=== PATIENT | male | born 1975 | race Caucasian/White ===

== ENCOUNTER 2016-07-09 04:54 | Inpatient (IN) | payer OTHER ==
[2016-07-09] MEDS ORDERED: LORazepam 2 MG/ML SYRINGE IV STA ×2 (04:56→06:23)
[2016-07-09] MEDS ORDERED: THIAMINE 100 MG/ML 2 ML VIAL IVPB STA (04:56)
[2016-07-09] MEDS ORDERED: SODIUM CHLORIDE 0.9% 500 ML IV STA (04:56)
[2016-07-09] MEDS ORDERED: SODIUM CHLORIDE 0.9% 1,000 ML IV STA (04:56)
--- NOTE | 2016-07-09 04:57 | ED ---
General Adult HPI - General Stated complaint: ETOH Time Seen by Provider: 07/09/16 04:56 Source: RN notes reviewed, old records reviewed - History of Present Illness Initial comments: This is a 41-year-old male ER for evaluation of intoxication, patient got drunk and passed out when sleep as left-sided, when he woke thought he had typical to moving his left side although his range of motion is fully returned at this point. Patient does have history of alcohol abuse. - Related Data Home Medications Medication Instructions Recorded Confirmed Multivitamins, Thera [Multivitamin] 1 tab PO DAILY 10/30/15 07/09/16 Magnesium Oxide [Mag-Ox] 250 mg PO DAILY 05/28/16 07/09/16 Vitamin B Complex 1 cap PO DAILY 05/28/16 07/09/16 Atenolol [Tenormin] 50 mg PO DAILY 06/01/16 07/09/16 Fluticasone Propionate [Flonase 2 spray EA NOSTRIL DAILY PRN 06/01/16 07/09/16 Allergy Relief] HYDROcodone/APAP 10-325MG [[place] 1 tab PO Q6H PRN 06/01/16 07/09/16 10-325] Albuterol Inhaler [Ventolin Hfa 2 puff INHALATION RT-Q8H PRN 07/09/16 07/09/16 Inhaler] Previous Rx's Medication Instructions Recorded Folic Acid 1 mg PO DAILY #30 tablet 06/05/16 Thiamine [Vitamin B-1] 100 mg PO BID@1200,1700 #60 tab 06/05/16 LORazepam [Ativan] 1 mg PO TID #20 tab 07/10/16 Omeprazole [PriLOSEC] 40 mg PO AC-BRKFST #14 capsule. 07/10/16 Allergies Allergy/AdvReac Type Severity Reaction Status Date / Time Cephalosporins Allergy Severe Anaphylaxis Verified 06/01/16 15:26 diphenhydramine HCl Allergy Severe Anaphylaxis Verified 06/01/16 15:26 [From Benadryl] divalproex sodium Allergy Severe Anaphylaxis Verified 06/01/16 15:26 [From Depakote] Review of Systems ROS Statement: Those systems with pertinent positive or pertinent negative responses have been documented in the HPI. ROS Other: All systems not noted in ROS Statement are negative. Past Medical History Past Medical History: GERD/Reflux, Hypertension, Osteoarthritis (OA), Seizure Disorder Additional Past Medical History / Comment(s): had episode of "fainting" 1 yrs ago and told he had a seizurepossible alcoholic seizures/blackouts, bilateral varicose veins, spinal stenosis, herniated disc, hemorrhoids. Patient states he drinks 1/5 of vodka per day History of Any Multi-Drug Resistant Organisms: None Reported Past Surgical History: Appendectomy, Tonsillectomy Additional Past Surgical History / Comment(s): 09-20-15 LAMINECTOMY,bilateral DISCETOMY L5-S1. Past Anesthesia/Blood Transfusion Reactions: Motion Sickness Past Psychological History: Anxiety, Depression Additional Psychological History / Comment(s): pt stated has some mild depression .his mother recently on 08-17-15. pt denies any thoughts of harming self. Smoking Status: Never smoker Past Alcohol Use History: Heavy Additional Past Alcohol Use History / Comment(s): Patient is a lifelong nonsmoker. He denies any medical marijuana, marijuana or street drug use. 1 fifth of vodka per day, last drink 05/31/2016. 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 Mother recently. He denies any travel. He is currently living with his father. Past Drug Use History: None Reported - Past Family History Father Family Medical History: Cancer, Dementia Additional Family Medical History / Comment(s): melanoma, parkinsons Mother Family Medical History: Hypertension, Musculoskeletal Disorder, Neurologic Disorder, Osteoarthritis (OA) Additional Family Medical History / Comment(s): Recently . Had some motor neuron disease General Exam General appearance: alert, in no apparent distress Head exam: Present: atraumatic, normocephalic, normal inspection Eye exam: Present: normal appearance, PERRL, EOMI. Absent: scleral icterus, conjunctival injection, periorbital swelling ENT exam: Present: normal exam, mucous membranes moist Neck exam: Present: normal inspection. Absent: tenderness, meningismus, lymphadenopathy Respiratory exam: Present: normal lung sounds bilaterally. Absent: respiratory distress, wheezes, rales, rhonchi, stridor Cardiovascular Exam: Present: regular rate, normal rhythm, normal heart sounds. Absent: systolic murmur, diastolic murmur, rubs, gallop, clicks GI/Abdominal exam: Present: soft, normal bowel sounds. Absent: distended, tenderness, guarding, rebound, rigid Extremities exam: Present: normal inspection, full ROM, normal capillary refill. Absent: tenderness, pedal edema, joint swelling, calf tenderness Back exam: Present: normal inspection Neurological exam: Present: alert, oriented X3, CN II-XII intact Psychiatric exam: Present: normal affect, normal mood Skin exam: Present: warm, dry, intact, normal color. Absent: rash Course Vital Signs 07/09/16 07/09/16 07/09/16 04:59 06:36 07:22 Temperature 98.2 F Pulse Rate 82 84 78 Respiratory 14 14 15 Rate Blood Pressure 134/79 128/73 119/62 O2 Sat by Pulse 97 98 96 Oximetry 07/09/16 07/09/16 08:00 08:13 Temperature Pulse Rate 85 Respiratory 16 16 Rate Blood Pressure 141/70 O2 Sat by Pulse 97 Oximetry Medical Decision Making - Medical Decision Making 38 female seen and evaluated by psychiatry, patient was medically clear for psych after detox, patient can be admitted for psychiatric evaluation and treatment - Lab Data Result diagrams: 07/10/16 08:43 07/10/16 08:43 Lab Results 07/09/16 07/09/16 Range/Units 05:30 05:30 WBC 6.0 (3.8-10.6) k/uL RBC 4.01 L (4.30-5.90) m/uL Hgb 12.6 L (13.0-17.5) gm/dL Hct 37.4 L (39.0-53.0) % MCV 93.3 (80.0-100.0) fL MCH 31.5 (25.0-35.0) pg MCHC 33.7 (31.0-37.0) g/dL RDW 14.1 (11.5-15.5) % Plt Count 124 L (150-450) k/uL Neutrophils % 50 % Lymphocytes % 38 % Monocytes % 6 % Eosinophils % 3 % Basophils % 1 % Neutrophils # 3.0 (1.3-7.7) k/uL Lymphocytes # 2.3 (1.0-4.8) k/uL Monocytes # 0.4 (0-1.0) k/uL Eosinophils # 0.2 (0-0.7) k/uL Basophils # 0.0 (0-0.2) k/uL Sodium 139 (137-145) mmol/L Potassium 4.0 (3.5-5.1) mmol/L Chloride 99 (98-107) mmol/L Carbon Dioxide 19 L (22-30) mmol/L Anion Gap 21 mmol/L BUN 13 (9-20) mg/dL Creatinine 1.00 (0.66-1.25) mg/dL Est GFR (MDRD) Af Amer >60 (>60 ml/min/1.73 sqM) Est GFR (MDRD) Non-Af >60 (>60 ml/min/1.73 sqM) Glucose 78 (74-99) mg/dL Calcium 6.7 L (8.4-10.2) mg/dL Phosphorus 3.8 (2.5-4.5) mg/dL Magnesium 0.4 L* (1.6-2.3) mg/dL Total Bilirubin 2.1 H (0.2-1.3) mg/dL AST 120 H (17-59) U/L ALT 59 (21-72) U/L Alkaline Phosphatase 49 (38-126) U/L Total Protein 7.0 (6.3-8.2) g/dL Albumin 4.2 (3.5-5.0) g/dL Lipase 97 (23-300) U/L Serum Alcohol 37 mg/dL Disposition Clinical Impression: Dehydration, Alcohol addiction, Hypomagnesemia Disposition: TRANSFER TO PSYCH HOSP/UNIT Condition: Fair
[2016-07-09 05:39] LABS: Basophils % (A) 1 %; CH 31.8; CHCM 34.2; Eosinophils # (A) 0.2 k/uL (0-0.7); Eosinophils % (A) 3 %; HCT 37.4 % (39.0-53.0); HDW 2.65; HGB 12.6 gm/dL (13.0-17.5); Luc # (Auto) 0.13; Luc % (Auto) 2; Lymphocytes # (A) 2.3 k/uL (1.0-4.8); Lymphocytes % (A) 38 %; MCH 31.5 pg (25.0-35.0); MCHC 33.7 g/dL (31.0-37.0); MCV 93.3 fL (80.0-100.0); Mean Platelet Volume 7.9; Monocytes # (A) 0.4 k/uL (0-1.0); Monocytes % (A) 6 %; Neutrophils % (A) 50 %; RBC 4.01 m/uL (4.30-5.90); RDW 14.1 % (11.5-15.5); WBC (Perox) 6.37
[2016-07-09] MEDS ORDERED: ONDANSETRON 4 MG/2 ML VIAL IVP STA (05:53)
[2016-07-09 05:54] LABS: Alcohol 37 mg/dL; Anion Gap 21 mmol/L; Calcium 6.7 mg/dL (8.4-10.2); Carbon Dioxide 19 mmol/L (22-30); Chloride 99 mmol/L (98-107); Glucose 78 mg/dL (74-99); Non-African American GFR(MDRD) >60 (>60 ml/min/1.73 sqM); Sodium 139 mmol/L (137-145); Total Bilirubin 2.1 mg/dL (0.2-1.3)
[2016-07-09 06:02] LABS: ALT 59 U/L (21-72); AST 120 U/L (17-59); Alkaline Phosphatase 49 U/L (38-126); Blood Urea Nitrogen 13 mg/dL (9-20); Magnesium 0.4 mg/dL (1.6-2.3); Phosphorous 3.8 mg/dL (2.5-4.5)
[2016-07-09] MEDS ORDERED: METOCLOPRAMIDE 5 MG/ML 2 ML VIAL IVP STA (06:23)
[2016-07-09] MEDS ORDERED: LORazepam 2 MG/ML SYRINGE IV PRN (06:55)
[2016-07-09] MEDS ORDERED: THIAMINE 100 MG/ML 2 ML VIAL IM STA (06:55)
[2016-07-09] MEDS ORDERED: SODIUM CHLORIDE 0.9% 1,000 ML IV ONE (06:55)
[2016-07-09] MEDS: MAGNESIUM SULFATE-D5W PMX 1 GM in DEXTROSE/WATER 1 100ML.BAG IVPB SCH ×4 (07:20→12:26)
[2016-07-09] MEDS: LORazepam 2 MG/ML SYRINGE IV PRN ×6 (09:13→23:21)
[2016-07-09] MEDS ORDERED: FLUTICASONE 50MCG/SPRAY NASAL 16GM EA NOSTRIL PRN (10:06)
[2016-07-09] MEDS ORDERED: ALBUTEROL NEBULIZED 2.5 MG/3 ML INHALATION PRN (10:06)
[2016-07-09 10:33] LABS: Appearance,Urine Clear (Clear); Bilirubin,Urine Negative (Negative); Glucose,Urine (UA) Negative (Negative); Ketones,Urine Trace (Negative); Leukocyte Esterase,Urine Negative (Negative); Nitrite,Urine Negative (Negative); Protein,Urine Negative (Negative); Specific Gravity,Urine 1.005 (1.001-1.035); UA Billing (MACRO vs. MICRO) CHEM; Urobilinogen,Urine <2.0 mg/dL (<2.0)
[2016-07-09] MEDS: ONDANSETRON 4 MG/2 ML VIAL IVP PRN ×2 (11:09→21:16)
[2016-07-09] MEDS: PANTOPRAZOLE 40 MG/10 ML VIAL IVP SCH (11:10)
[2016-07-09] MEDS: ENOXAPARIN 40 MG/0.4 ML SYRINGE SQ SCH (11:10)
--- NOTE | 2016-07-09 13:32 | HP ---
DATE OF ADMISSION: Patient is admitted because of alcohol intoxication and patient is complaining of chest pain across the chest. Patient has a burning sensation in the retrosternal area, probably due to gastritis. Patient is admitted here because hypomagnesemia. Patient is willing to quit alcohol because of which will monitor for alcohol withdrawal. Patient does use one-fifth of alcohol. Patient denied any fever, chills. Patient was having vomiting yesterday because of the alcoholic gastritis. Patient is already on Protonix at this point of time. Patient is on p.r.n. Zofran. Will watch for alcohol withdrawals and extensive counseling regarding alcohol was provided. REVIEW OF SYSTEMS: CONSTITUTIONAL: No fever, no malaise, no fatigue. HEENT: No recent visual problems or hearing problems. Denied any sore throat. CARDIOVASCULAR: No chest pain, orthopnea, PND, no palpitations, no syncope. PULMONARY: No shortness of breath, no cough, no hemoptysis. GASTROINTESTINAL: As described in HPI. NEUROLOGICAL: No headaches, no weakness, no numbness. HEMATOLOGICAL: Denies any bleeding or petechiae. GENITOURINARY: Denies any burning micturition, frequency, or urgency. MUSCULOSKELETAL/RHEUMATOLOGICAL: Denies any joint pain, swelling, or any muscle pain. ENDOCRINE: Denies any polyuria or polydipsia. The rest of the 14 point review of systems is negative. Home medications include omeprazole, amlodipine, multivitamin, magnesium oxide, vitamin B complex, atenolol, fluticasone, hydrocodone, acetaminophen and patient is was also taking losartan, albuterol, folic acid, lorazepam, levofloxacin, thiamine. ALLERGIES: Allergic to CEPHALOSPORIN, DIPHENHYDRAMINE, DIVALPROEX SODIUM. PAST MEDICAL HISTORY: Gastroesophageal reflux disease, acute alcoholic hepatitis, alcoholic hepatitis in the past, hypertension, osteoarthritis, seizure disorder. I believe seizures are secondary to alcohol withdrawal seizures, appendectomy, tonsillectomy. SOCIAL HISTORY: Patient denied any smoking. Heavy alcohol use, drinks about one-fifth of vodka. Patient has multiple admissions secondary to that. Denied any drug abuse and patient is complaining of low back pain requesting Dilaudid for that. FAMILY HISTORY: Significant for father with dementia, which is Parkinsonian dementia and melanoma. Mother had hypertension, osteoarthritis. PHYSICAL EXAMINATION: VITAL SIGNS: Temperature 98.0, pulse of 85, respiratory rate of 20, blood pressure is 141/70, saturating at 95% on room air. GENERAL: Patient is mildly tremulous, alert and oriented x3. HEENT: Pupils are round and equally reacting to light. EOMI. No scleral icterus. No conjunctival pallor. Normocephalic, atraumatic. No pharyngeal erythema. No thyromegaly. CARDIOVASCULAR: S1 and S2 present. No murmurs, rubs, or gallops. PULMONARY: Chest is clear to auscultation, no wheezing or crackles. ABDOMEN: Soft, nontender, nondistended, normoactive bowel sounds. No palpable organomegaly. MUSCULOSKELETAL: No joint swelling or deformity. EXTREMITIES: No cyanosis, clubbing, or pedal edema. NEUROLOGICAL: Gross neurological examination did not reveal any focal deficits. SKIN: No rashes. LABORATORY DATA: CBC, BMP are abnormal for low magnesium of 0.4 and bicarbonate of 19, anion gap of 21. Serum alcohol level is elevated. I believe patient has lactic acidosis from severe dehydration, I will obtain a lactic acid level. Will also make sure patient is getting enough IV fluids at 125 mL/h. Anion gap metabolic acidosis can be from alcohol itself. ASSESSMENT AND PLAN: 1. Alcohol intoxication. 2. Alcohol withdrawal. 3. Alcoholic gastritis. 4. Mild acute alcoholic hepatitis. I will go ahead and use Bailey for pain as patient's liver enzymes are only minimally elevated. 5. Hypomagnesemia due to alcoholism. 6. Chest pain. Patient does have noncardiac chest pain, related to alcoholic gastritis and patient is on Protonix. 7. Hypertension. 8. Anion gap metabolic acidosis, further evaluation as mentioned above. PLAN: IV fluids at 150 mL/h. Due to a lactic acid level, add CIWA protocol. Counseling regarding alcohol abuse and repeat electrolytes and a comprehensive metabolic profile tomorrow. Regarding antihypertensive medications, I am holding off on losartan and amlodipine, will watch his blood pressure. Will continue with atenolol. Continue with thiamine multivitamin supplementation along with folic acid. Patient's primary care physician is Dr. Veena Bynum.
--- NOTE | 2016-07-09 15:24 | XR ---
EXAMINATION TYPE: XR chest 2V DATE OF EXAM: 07/09/2016 2:48 PM COMPARISON: 06/04/2016 HISTORY: Chest pain, pneumonia FINDINGS: The lungs are clear and there is no pneumothorax, pleural effusion, or focal pneumonia. Hypertrophic and degenerative change of the spine noted. No overt failure. Biapical pleural thickening. IMPRESSION: 1. No acute process.
[2016-07-09] MEDS: HYDROcodone/APAP 10-325MG 1 EACH TAB PO PRN ×2 (15:27→21:12)
[2016-07-09] MEDS: THIAMINE 100 MG TAB PO SCH (16:48)
[2016-07-09 22:29] VITALS: RESP 16
[2016-07-10] MEDS: LORazepam 2 MG/ML SYRINGE IV PRN ×4 (01:25→10:15)
[2016-07-10] MEDS: ONDANSETRON 4 MG/2 ML VIAL IVP PRN ×2 (03:33→10:16)
[2016-07-10] MEDS: HYDROcodone/APAP 10-325MG 1 EACH TAB PO PRN ×2 (07:41→15:22)
[2016-07-10] MEDS: ENOXAPARIN 40 MG/0.4 ML SYRINGE SQ SCH (08:29)
[2016-07-10] MEDS: PANTOPRAZOLE 40 MG/10 ML VIAL IVP SCH (08:30)
[2016-07-10] MEDS ORDERED: MAGNESIUM OXIDE 250 MG TAB PO SCH (09:00)
[2016-07-10] MEDS ORDERED: FOLIC ACID 1 MG TAB PO SCH (09:00)
[2016-07-10] MEDS ORDERED: ATENOLOL 50 MG TAB PO SCH (09:00)
[2016-07-10] MEDS ORDERED: MULTIVITAMINS, THERA 1 EACH TAB PO SCH (09:00)
[2016-07-10 09:14] LABS: CH 31.6; CHCM 33.3; HDW 2.53; HGB 11.6 gm/dL (13.0-17.5); MCH 31.5 pg (25.0-35.0); MCHC 33.1 g/dL (31.0-37.0); MCV 95.3 fL (80.0-100.0); RBC 3.67 m/uL (4.30-5.90); WBC 5.5 k/uL (3.8-10.6)
[2016-07-10 09:23] LABS: ALT 53 U/L (21-72); AST 96 U/L (17-59); Alkaline Phosphatase 50 U/L (38-126); Anion Gap 15 mmol/L; Blood Urea Nitrogen 14 mg/dL (9-20); Calcium 6.8 mg/dL (8.4-10.2); Carbon Dioxide 24 mmol/L (22-30); Chloride 100 mmol/L (98-107); Glucose 87 mg/dL (74-99); Non-African American GFR(MDRD) >60 (>60 ml/min/1.73 sqM); Sodium 139 mmol/L (137-145); Total Bilirubin 2.2 mg/dL (0.2-1.3); Total Protein 6.5 g/dL (6.3-8.2)
[2016-07-10] MEDS: MAGNESIUM SULFATE-D5W PMX 1 GM in DEXTROSE/WATER 1 100ML.BAG IVPB SCH ×4 (11:25→15:32)
[2016-07-10] MEDS: THIAMINE 100 MG TAB PO SCH (11:32)
[2016-07-10] MEDS ORDERED: LORazepam 1 MG TAB PO PRN (12:03)
[2016-07-10 16:24] VITALS: BP 122/83; TEMP 97.3
[2016-07-10 16:40] VITALS: PULSE 85
--- NOTE | 2016-07-11 08:42 | DS ---
DATE OF ADMISSION: 07/09/2016 DATE OF DISCHARGE: 07/10/2016 Patient is admitted with alcohol intoxication and alcoholic gastritis and alcohol withdrawals. Patient, although it was documented by nursing staff that his CIWA score is 10, patient is actually pretending to have alcohol withdrawals. In actuality patient's CIWA score is pretty low and patient is requesting frequent Ativan and pain medications. I believe patient can be discharged with oral Ativan and patient will be discharged today. Patient will be asked to take Prilosec 14 days. Avoid alcohol use. Patient was seen and examined on the day of discharge. Vitals are stable. PHYSICAL EXAMINATION: GENERAL: The patient is alert and oriented x3, not in any acute distress. Well developed, well nourished. HEENT: Pupils are round and equally reacting to light. EOMI. No scleral icterus. No conjunctival pallor. Normocephalic, atraumatic. No pharyngeal erythema. No thyromegaly. CARDIOVASCULAR: S1 and S2 present. No murmurs, rubs, or gallops. PULMONARY: Chest is clear to auscultation, no wheezing or crackles. ABDOMEN: Soft, nontender, nondistended, normoactive bowel sounds. No palpable organomegaly. MUSCULOSKELETAL: No joint swelling or deformity. EXTREMITIES: No cyanosis, clubbing, or pedal edema. NEUROLOGICAL: Gross neurological examination did not reveal any focal deficits. SKIN: No rashes. FINAL DIAGNOSES: 1. Alcohol intoxication. 2. Alcohol withdrawal. 3. Alcoholic gastritis. 4. Mild alcoholic hepatitis. 5. Hypomagnesemia. 6. Chest pain secondary to alcoholic gastritis and acid reflex. 7. Hypertension. 8. Dynamic metabolic acidosis. Patient will be given prescription for Prilosec for 14 days and lorazepam. The rest of his home medications can be continued as it is. Patient will follow with Dr. Veena Mar in about 3 to 4 days. Activity as tolerated. Cardiac diet. I do not believe patient will require his losartan although he will need his atenolol. Atenolol will be continued and losartan will be discontinued. I spent greater than 35 minutes in total discharge process.
== END 2016-07-10 17:45 | disposition home or self-care (01) | DRG 897 ==
LOC: EC 04:54 → 5MS5E 06:59
PROVIDERS: ADMIT Hospitalist; ATTEND Hospitalist
DX: F10.239 Alcohol dependence with withdrawal, unspecified (principal); E87.2 Acidosis; K70.10 Alcoholic hepatitis without ascites; E83.42 Hypomagnesemia; E86.0 Dehydration; G40.909 Epilepsy, unspecified, not intractable, without status epilepticus; I10 Essential (primary) hypertension; K21.9 Gastro-esophageal reflux disease without esophagitis; K29.20 Alcoholic gastritis without bleeding; F32.9 Major depressive disorder, single episode, unspecified; F41.9 Anxiety disorder, unspecified; M19.90 Unspecified osteoarthritis, unspecified site; F10.229 Alcohol dependence with intoxication, unspecified; Z79.899 Other long term (current) drug therapy; Z88.8 Allergy status to other drugs, medicaments and biological substances; Z82.49 Family history of ischemic heart disease and other diseases of the circulatory system
CPT/HCPCS: 36415; 71020; 80053; 80320; 81003; 82075; 83605; 83690; 83735; 84100; 84484; 85025; 85027; 93005; 96361; 96365; 96375; 99285

== ENCOUNTER 2016-09-05 03:33 | Inpatient (IN) | payer OTHER ==
[2016-09-05] MEDS ORDERED: IPRATROPIUM-ALBUTEROL 3 ML NEB INHALATION STA (03:48)
[2016-09-05] MEDS ORDERED: METOCLOPRAMIDE 5 MG/ML 2 ML VIAL IVP STA (03:49)
[2016-09-05] MEDS: SODIUM CHLORIDE 0.9% 1,000 ML IV STA ×2 (04:00→07:20)
[2016-09-05 04:11] LABS: Basophils % (A) 0 %; CH 31.7; CHCM 33.6; Eosinophils % (A) 1 %; HCT 45.2 % (39.0-53.0); HDW 2.53; Luc # (Auto) 0.17; Luc % (Auto) 4; Lymphocytes # (A) 1.7 k/uL (1.0-4.8); Lymphocytes % (A) 36 %; MCH 31.2 pg (25.0-35.0); MCV 94.6 fL (80.0-100.0); Monocytes # (A) 0.2 k/uL (0-1.0); Monocytes % (A) 4 %; Neutrophils # (A) 2.6 k/uL (1.3-7.7); Neutrophils % (A) 55 %; RBC 4.78 m/uL (4.30-5.90); RDW 13.7 % (11.5-15.5); WBC 4.6 k/uL (3.8-10.6); WBC (Perox) 4.72
--- NOTE | 2016-09-05 04:12 | ED ---
Nausea/Vomiting/Diarrhea HPI - General Source: patient, RN notes reviewed Mode of arrival: ambulatory Limitations: no limitations <Ashley Ngo - Last Filed: 09/05/16 05:17> <Yinka Garcia - Last Filed: 09/05/16 06:40> - General Chief complaint: Nausea/Vomiting/Diarrhea Stated complaint: N/V Time Seen by Provider: 09/05/16 03:41 - History of Present Illness Initial comments: Patient is a 41-year-old male with history of alcoholism presents emergency Department with 1 week of nausea vomiting and increased cough. Patient reports that he's had a history of pneumonia in the past. He denies any specific abdominal pain. He does report that he has some chronic chest pain in the right and left upper chest. He states that he has had a productive cough. He denies any specific fever but does feel chilled. Patient reports that he drank yesterday to try to eat some sleep. Patient denies any recent fever, back pain, abdominal pain, numbness or tingling, dysuria or hematuria, constipation or diarrhea, headaches or visual changes, or any other current symptoms (Ashley Ngo) - Related Data Home Medications Medication Instructions Recorded Confirmed Multivitamins, Thera [Multivitamin 1 tab PO DAILY 10/30/15 09/05/16 (formulary)] Magnesium Oxide [Mag-Ox] 250 mg PO DAILY 05/28/16 09/05/16 Vitamin B Complex 1 cap PO DAILY 05/28/16 09/05/16 Atenolol [Tenormin] 50 mg PO DAILY 06/01/16 09/05/16 Fluticasone Propionate [Flonase 2 spray EA NOSTRIL DAILY PRN 06/01/16 09/05/16 Allergy Relief] HYDROcodone/APAP 10-325MG [[place] 1 tab PO Q6H PRN 06/01/16 09/05/16 10-325] Albuterol Inhaler [Ventolin Hfa 2 puff INHALATION RT-Q8H PRN 07/09/16 09/05/16 Inhaler] Previous Rx's Medication Instructions Recorded Folic Acid 1 mg PO DAILY #30 tablet 06/05/16 Thiamine [Vitamin B-1] 100 mg PO BID@1200,1700 #60 tab 06/05/16 LORazepam [Ativan] 1 mg PO TID #20 tab 07/10/16 Omeprazole [PriLOSEC] 40 mg PO MARISELABRKFST #14 capsule. 07/10/16 Allergies Allergy/AdvReac Type Severity Reaction Status Date / Time Cephalosporins Allergy Severe Anaphylaxis Verified 06/01/16 15:26 diphenhydramine HCl Allergy Severe Anaphylaxis Verified 06/01/16 15:26 [From Benadryl] divalproex sodium Allergy Severe Anaphylaxis Verified 06/01/16 15:26 [From Depakote] Review of Systems ROS Other: All systems not noted in ROS Statement are negative. <Ashley Ngo - Last Filed: 09/05/16 05:17> ROS Other: All systems not noted in ROS Statement are negative. <Yinka Garcia - Last Filed: 09/05/16 06:40> ROS Statement: Those systems with pertinent positive or pertinent negative responses have been documented in the HPI. Past Medical History Past Medical History: GERD/Reflux, Hypertension, Osteoarthritis (OA), Seizure Disorder Additional Past Medical History / Comment(s): had episode of "fainting" 1 yrs ago and told he had a seizurepossible alcoholic seizures/blackouts, bilateral varicose veins, spinal stenosis, herniated disc, hemorrhoids. Patient states he drinks 1/5 of vodka per day History of Any Multi-Drug Resistant Organisms: None Reported Past Surgical History: Appendectomy, Tonsillectomy Additional Past Surgical History / Comment(s): 09-20-15 LAMINECTOMY,bilateral DISCETOMY L5-S1. Past Anesthesia/Blood Transfusion Reactions: Motion Sickness Past Psychological History: Anxiety, Depression Additional Psychological History / Comment(s): pt stated has some mild depression .his mother recently on 08-17-15. pt denies any thoughts of harming self. Smoking Status: Never smoker Past Alcohol Use History: Heavy Additional Past Alcohol Use History / Comment(s): Patient is a lifelong nonsmoker. He denies any medical marijuana, marijuana or street drug use. 1 fifth of vodka per day, last drink 05/31/2016. 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 Mother recently. He denies any travel. He is currently living with his father. Past Drug Use History: None Reported - Past Family History Father Family Medical History: Cancer, Dementia Additional Family Medical History / Comment(s): melanoma, parkinsons Mother Family Medical History: Hypertension, Musculoskeletal Disorder, Neurologic Disorder, Osteoarthritis (OA) Additional Family Medical History / Comment(s): Recently . Had some motor neuron disease <Ashley Ngo - Last Filed: 09/05/16 05:17> General Exam Limitations: no limitations General appearance: alert, in no apparent distress Head exam: Present: atraumatic, normocephalic, normal inspection Eye exam: Present: normal appearance, PERRL, EOMI. Absent: scleral icterus, conjunctival injection, periorbital swelling ENT exam: Present: normal exam, normal oropharynx, mucous membranes moist, TM's normal bilaterally Neck exam: Present: normal inspection, full ROM. Absent: tenderness, meningismus, lymphadenopathy Respiratory exam: Present: normal lung sounds bilaterally, wheezes, rhonchi ( Patient has significant wheezing and rhonchi.). Absent: respiratory distress, rales, stridor Cardiovascular Exam: Present: regular rate, normal rhythm, normal heart sounds. Absent: systolic murmur, diastolic murmur, rubs, gallop, clicks GI/Abdominal exam: Present: soft, normal bowel sounds. Absent: distended, tenderness, guarding, rebound, rigid Extremities exam: Present: normal inspection, full ROM, normal capillary refill. Absent: tenderness, pedal edema, joint swelling, calf tenderness Back exam: Present: normal inspection Neurological exam: Present: alert, oriented X3, CN II-XII intact Psychiatric exam: Present: normal affect, normal mood Skin exam: Present: warm, dry, intact, normal color. Absent: rash <Ashley Ngo - Last Filed: 09/05/16 05:17> <Yinka Garcia - Last Filed: 09/05/16 06:40> - General Exam Comments Initial Comments: 41-year-old male. Patient does appear to be in discomfort. (Ashley Ngo) Course <Ashley Ngo - Last Filed: 09/05/16 05:17> <Yinka Garcia - Last Filed: 09/05/16 06:40> Vital Signs 09/05/16 09/05/16 09/05/16 03:38 04:23 04:32 Temperature 98.5 F Pulse Rate 98 96 92 Respiratory 20 Rate Blood Pressure 151/90 O2 Sat by Pulse 97 Oximetry 09/05/16 09/05/16 09/05/16 05:06 05:32 05:47 Temperature Pulse Rate 111 H 101 H 98 Respiratory 18 16 16 Rate Blood Pressure 149/90 138/80 O2 Sat by Pulse 97 98 98 Oximetry And is reassessed at 540, he still nauseous and complaining about abdominal pain , and cannot start him on him and pressure 40 mg IV he had Reglan and Zofran I plan to do a CT abdomen and considering his LFTs are elevated to rule out any pathology in the liver (Yinka Garcia) Medical Decision Making - Lab Data Result diagrams: 09/05/16 03:54 09/05/16 03:54 <Ashley Ngo - Last Filed: 09/05/16 05:17> - Lab Data Result diagrams: 09/05/16 03:54 09/05/16 03:54 <Yinka Garcia - Last Filed: 09/05/16 06:40> - Medical Decision Making Patient is a 41-year-old male with history of alcoholism presents emergency Department with 1 week of nausea vomiting and increased cough. Patient reports that he's had a history of pneumonia in the past. He denies any specific abdominal pain. He does report that he has some chronic chest pain in the right and left upper chest. He states that he has had a productive cough. He denies any specific fever but does feel chilled. Patient reports that he drank yesterday to try to eat some sleep. Patient arrives to the ED via EMS and was given 4 mg of Zofran and IV was started. Patient continues to cough and have episodes of dry heaving. Patient was given IV fluid bolus and Reglan as well. Labs are obtained. Patient does have significant hypokinesia of 90 0.9. Patient will be given 2 mg of magnesium sulfate via the IV. Patient also has elevated liver enzymes. This is an acute change from previous lab work done on July 09 of this year. Patient does have no abdominal tenderness. He does continue to complain of chest pain. Patient EKG showed slight T wave abnormalities no evidence of ST elevation. Chest x-ray showed no acute process. KUB also showed no acute process. Hepatitis panel is currently being ran. Patient will be transferred care to Dr. Sayed a 5 in the morning. (Ashley Ngo) - Lab Data Lab Results 09/05/16 09/05/16 09/05/16 Range/Units 03:54 03:54 03:54 WBC 4.6 (3.8-10.6) k/uL RBC 4.78 (4.30-5.90) m/uL Hgb 14.9 D (13.0-17.5) gm/dL Hct 45.2 (39.0-53.0) % MCV 94.6 (80.0-100.0) fL MCH 31.2 (25.0-35.0) pg MCHC 33.0 (31.0-37.0) g/dL RDW 13.7 (11.5-15.5) % Plt Count 118 L (150-450) k/uL Neutrophils % 55 % Lymphocytes % 36 % Monocytes % 4 % Eosinophils % 1 % Basophils % 0 % Neutrophils # 2.6 (1.3-7.7) k/uL Lymphocytes # 1.7 (1.0-4.8) k/uL Monocytes # 0.2 (0-1.0) k/uL Eosinophils # 0.0 (0-0.7) k/uL Basophils # 0.0 (0-0.2) k/uL PT (9.0-12.0) sec INR (<1.1) APTT (22.0-30.0) sec Sodium 145 (137-145) mmol/L Potassium 3.9 (3.5-5.1) mmol/L Chloride 99 (98-107) mmol/L Carbon Dioxide 25 (22-30) mmol/L Anion Gap 21 mmol/L BUN 7 L (9-20) mg/dL Creatinine 0.70 (0.66-1.25) mg/dL Est GFR (MDRD) Af Amer >60 (>60 ml/min/1.73 sqM) Est GFR (MDRD) Non-Af >60 (>60 ml/min/1.73 sqM) Glucose 102 H (74-99) mg/dL Plasma Lactic Acid Burak (0.7-2.0) mmol/L Calcium 8.0 L (8.4-10.2) mg/dL Magnesium 0.9 L* (1.6-2.3) mg/dL Total Bilirubin 1.1 (0.2-1.3) mg/dL AST 430 H (17-59) U/L ALT 204 H (21-72) U/L Alkaline Phosphatase 72 (38-126) U/L Total Creatine Kinase 171 H (55-170) U/L CK-MB (CK-2) 1.8 (0.0-2.4) ng/mL CK-MB (CK-2) Rel Index 1.1 Troponin I <0.012 (0.000-0.034) ng/mL Total Protein 7.5 (6.3-8.2) g/dL Albumin 4.7 (3.5-5.0) g/dL Amylase 64 (30-110) U/L Lipase 123 (23-300) U/L Influenza Type A RNA (Not Detectd) Influenza Type B (PCR) (Not Detectd) 09/05/16 09/05/16 09/05/16 Range/Units 03:54 03:54 03:55 WBC (3.8-10.6) k/uL RBC (4.30-5.90) m/uL Hgb (13.0-17.5) gm/dL Hct (39.0-53.0) % MCV (80.0-100.0) fL MCH (25.0-35.0) pg MCHC (31.0-37.0) g/dL RDW (11.5-15.5) % Plt Count (150-450) k/uL Neutrophils % % Lymphocytes % % Monocytes % % Eosinophils % % Basophils % % Neutrophils # (1.3-7.7) k/uL Lymphocytes # (1.0-4.8) k/uL Monocytes # (0-1.0) k/uL Eosinophils # (0-0.7) k/uL Basophils # (0-0.2) k/uL PT 11.2 (9.0-12.0) sec INR 1.1 (<1.1) APTT 23.1 (22.0-30.0) sec Sodium (137-145) mmol/L Potassium (3.5-5.1) mmol/L Chloride (98-107) mmol/L Carbon Dioxide (22-30) mmol/L Anion Gap mmol/L BUN (9-20) mg/dL Creatinine (0.66-1.25) mg/dL Est GFR (MDRD) Af Amer (>60 ml/min/1.73 sqM) Est GFR (MDRD) Non-Af (>60 ml/min/1.73 sqM) Glucose (74-99) mg/dL Plasma Lactic Acid Burak 5.8 H* (0.7-2.0) mmol/L Calcium (8.4-10.2) mg/dL Magnesium (1.6-2.3) mg/dL Total Bilirubin (0.2-1.3) mg/dL AST (17-59) U/L ALT (21-72) U/L Alkaline Phosphatase (38-126) U/L Total Creatine Kinase (55-170) U/L CK-MB (CK-2) (0.0-2.4) ng/mL CK-MB (CK-2) Rel Index Troponin I (0.000-0.034) ng/mL Total Protein (6.3-8.2) g/dL Albumin (3.5-5.0) g/dL Amylase (30-110) U/L Lipase (23-300) U/L Influenza Type A RNA Not Detected (Not Detectd) Influenza Type B (PCR) Not Detected (Not Detectd) 09/05/16 04:19 EKG shows normal sinus rhythm. Evidence of an incomplete right bundle-branch block. T-wave abnormality in V4 through V6. Ventricular rate 100 bpm. KS interval 174 ms. QRS duration 106 ms. Compared this EKG from 07/09/2016. There is a slightly different T-wave inversion in V4 through V6. I discussed this case with Dr. Mendoza. (Ashley Ngo) Disposition <Ashley Ngo - Last Filed: 09/05/16 05:17> <Yinka Garcia - Last Filed: 09/05/16 06:40> Clinical Impression: Elevated liver enzymes, Nausea & vomiting, Cough, Hypomagnesemia, Dehydration, Alcohol addiction Disposition: ADMITTED IP TO THIS [facility] Condition: Stable Referrals: Veena Bynum DO [Primary Care Provider] - 1-2 days
[2016-09-05 04:27] LABS: ALT 204 U/L (21-72); AST 430 U/L (17-59); Alkaline Phosphatase 72 U/L (38-126); Amylase 64 U/L (30-110); Anion Gap 21 mmol/L; Blood Urea Nitrogen 7 mg/dL (9-20); Carbon Dioxide 25 mmol/L (22-30); Chloride 99 mmol/L (98-107); Glucose 102 mg/dL (74-99); INR 1.1 (<1.1); Non-African American GFR(MDRD) >60 (>60 ml/min/1.73 sqM); Partial Thromboplastin Time 23.1 sec (22.0-30.0); Potassium 3.9 mmol/L (3.5-5.1); Prothrombin Time 11.2 sec (9.0-12.0); Sodium 145 mmol/L (137-145); Total Bilirubin 1.1 mg/dL (0.2-1.3); Total Protein 7.5 g/dL (6.3-8.2)
[2016-09-05] MEDS ORDERED: LORazepam 2 MG/ML SYRINGE IV STA (04:33)
[2016-09-05 04:35] LABS: HGB 14.9 gm/dL (13.0-17.5)
[2016-09-05 04:49] LABS: Creatine Kinase 171 U/L (55-170)
[2016-09-05 04:56] LABS: Magnesium 0.9 mg/dL (1.6-2.3)
[2016-09-05] MEDS ORDERED: SODIUM CHLORIDE 0.9% 1,000 ML IV ONE (04:58)
--- NOTE | 2016-09-05 04:59 | XR ---
EXAM: XR Abdomen, 1 View. CLINICAL HISTORY: Reason: pain TECHNIQUE: Frontal supine view of the abdomen/pelvis. COMPARISON: KUB 06/01/16 FINDINGS: Gastrointestinal tract: Unremarkable. No dilation. Bones/joints: Unremarkable. Soft tissues: Surgical clip right lower quadrant. IMPRESSION: No acute findings.
[2016-09-05 05:02] LABS: Creatine Kinase MB 1.8 ng/mL (0.0-2.4); Troponin I <0.012 ng/mL (0.000-0.034)
--- NOTE | 2016-09-05 05:02 | XR ---
EXAM: XR Chest, 2 Views. CLINICAL HISTORY: Reason: pain TECHNIQUE: Frontal and lateral views of the chest. COMPARISON: Chest x-ray 07/09/16 FINDINGS: Lungs: Unremarkable. No consolidation. Pleural space: Unremarkable. No pneumothorax. Heart: Unremarkable. No cardiomegaly. Mediastinum: Unremarkable. Bones/joints: Unremarkable. Upper abdomen: Similar elevated right hemidiaphragm. IMPRESSION: No acute findings.
[2016-09-05] MEDS ORDERED: ONDANSETRON 4 MG/2 ML VIAL IVP STA (05:03)
[2016-09-05] MEDS ORDERED: LORazepam 2 MG/ML SYRINGE IV PRN (05:04)
[2016-09-05] MEDS ORDERED: THIAMINE 100 MG/ML 2 ML VIAL IM STA (05:04)
[2016-09-05] MEDS: MAGNESIUM SULFATE-D5W PMX 1 GM in DEXTROSE/WATER 1 100ML.BAG IVPB SCH ×2 (05:11→06:06)
[2016-09-05] MEDS ORDERED: MORPHINE SULFATE 2 MG/ML SYRINGE IVP ONE (05:15)
[2016-09-05] MEDS ORDERED: HYDROmorphone 1 MG/ML 1 ML SYRINGE IVP STA (05:16)
[2016-09-05] MEDS: LORazepam 2 MG/ML SYRINGE IV PRN ×7 (05:46→23:24)
[2016-09-05] MEDS ORDERED: PANTOPRAZOLE 40 MG/10 ML VIAL IVP STA (05:50)
[2016-09-05] MEDS: SODIUM CHLORIDE 0.9% 1,000 ML IV SCH ×2 (05:51→15:32)
[2016-09-05] MEDS ORDERED: DIAZEPAM 5 MG TAB PO STA (05:51)
[2016-09-05] MEDS ORDERED: RX INFO: IV CONTRAST WAS GIVEN 1 EACH MISC MISCELLANE PRN (05:54)
[2016-09-05] MEDS ORDERED: CALCIUM CARBONATE 500 MG CHEWABLE PO PRN (06:40)
[2016-09-05] MEDS ORDERED: MAG HYDROX/AL HYDROX/SIMETH 30 ML CUP PO PRN (06:40)
[2016-09-05] MEDS ORDERED: NALOXONE 0.4 MG/ML 1 ML VIAL IV PRN (06:40)
[2016-09-05] MEDS ORDERED: ALBUTEROL NEBULIZED 2.5 MG/3 ML INHALATION PRN (06:50)
[2016-09-05] MEDS ORDERED: FLUTICASONE 50MCG/SPRAY NASAL 16GM EA NOSTRIL PRN (06:50)
[2016-09-05 06:52] LABS: Hepatitis B Surface Ag Index 0.08
[2016-09-05 06:57] LABS: Hepatitis B Core IgM Index 0.05
[2016-09-05 07:09] LABS: Hepatitis C Virus IgG Index 0.01
[2016-09-05 07:16] LABS: Hepatitis C Virus IgG Ab Negative (Negative)
--- NOTE | 2016-09-05 07:25 | CT ---
EXAMINATION TYPE: CT abdomen pelvis w con DATE OF EXAM: 09/05/2016 7:07 AM REFERENCE: NONE HISTORY: Pain HISTORY: Nausea, vomiting, with chest and abdominal pain REFERENCE: NONE CT DLP: 2265 mGy Automated exposure control for dose reduction was used. TECHNIQUE: Helical acquisition through the abdomen and pelvis was obtained following the oral ingesti on of without Oral Contrast and following intravenous administration of 100 mL of Omnipaque 300. The data was reformatted in axial, coronal and sagittal projections. FINDINGS: There is mild, dependent atelectasis at the right lung base. Visualized portions of the farida ngs are otherwise clear. There is elevation of the right hemidiaphragm. There is no pleural or perica rdial fluid. Within the abdomen, this hepatomegaly with the liver measuring 22 cm. There is marked fatty infiltrat ion of the liver. The spleen and gallbladder are normal. Both adrenal glands are normal. Both kidneys demonstrate function and appear morphologically normal. The pancreas is unremarkable. There is no significant retroperitoneal, iliac or inguinal adenopathy. The bladder is unremarkable. There are scattered diverticula throughout the sigmoid colon. There is no radiographic evidence of di verticulitis. The appendix is not visualized with certainty. Small bowel loops are normal. There is no evidence of free air or free fluid. There is hypertrophic spondylosis within the spine. No bony destructive lesion is seen. IMPRESSION: 1. HEPATOMEGALY AND FATTY INFILTRATION OF THE LIVER. 2. UNCOMPLICATED DIVERTICULOSIS OF THE SIGMOID COLON.
[2016-09-05] MEDS: ONDANSETRON 4 MG/2 ML VIAL IVP PRN ×2 (07:47→16:15)
[2016-09-05] MEDS: HYDROmorphone 1 MG/ML 1 ML SYRINGE IV PRN ×5 (07:47→20:59)
[2016-09-05] MEDS: LORazepam 1 MG TAB PO SCH ×3 (08:34→22:25)
[2016-09-05] MEDS: ATENOLOL 50 MG TAB PO SCH (08:34)
[2016-09-05] MEDS: B COMPLEX-VIT C-VIT E-ZINC 1 EACH TAB PO SCH (08:34)
[2016-09-05] MEDS: PANTOPRAZOLE 40 MG TABLET PO SCH (08:34)
[2016-09-05] MEDS: MAGNESIUM OXIDE 400 MG TAB PO SCH (08:34)
[2016-09-05] MEDS: DIAZEPAM 5 MG TAB PO SCH ×3 (08:40→17:24)
[2016-09-05] MEDS ORDERED: MULTIVITAMINS, THERA 1 EACH TAB PO SCH (09:00)
[2016-09-05] MEDS ORDERED: FOLIC ACID 1 MG TAB PO SCH (09:00)
[2016-09-05] MEDS ORDERED: PANTOPRAZOLE 40 MG/10 ML VIAL IV SCH (09:00)
[2016-09-05] MEDS ORDERED: THIAMINE 100 MG TAB PO SCH ×2 (12:00→17:00)
[2016-09-05] MEDS ORDERED: SODIUM CHLORIDE 0.9% 1,000 ML BAG ONE (13:23)
[2016-09-05] MEDS: 1: MVI, ADULT NO.4 WITH VIT K 10 ML, THIAMINE 100 MG, FOLIC ACID 1 MG in SODIUM CHLORIDE IV SCH ×8 (13:23→22:25)
[2016-09-06] MEDS: HYDROmorphone 1 MG/ML 1 ML SYRINGE IV PRN ×4 (00:11→13:13)
[2016-09-06] MEDS: SODIUM CHLORIDE 0.9% 1,000 ML IV SCH ×2 (02:45→15:18)
[2016-09-06] MEDS: ONDANSETRON 4 MG/2 ML VIAL IVP PRN ×3 (03:05→18:33)
[2016-09-06] MEDS ORDERED: HYDROmorphone 2 MG/ML 1 ML SYRINGE ONE (04:05)
[2016-09-06] MEDS ORDERED: LORazepam 2 MG/ML SYRINGE ONE (04:05)
[2016-09-06] MEDS: LORazepam 2 MG/ML SYRINGE IV PRN ×5 (06:17→18:32)
[2016-09-06] MEDS: ATENOLOL 50 MG TAB PO SCH (08:31)
[2016-09-06] MEDS: B COMPLEX-VIT C-VIT E-ZINC 1 EACH TAB PO SCH (08:31)
[2016-09-06] MEDS: PANTOPRAZOLE 40 MG TABLET PO SCH (08:31)
[2016-09-06] MEDS: LORazepam 1 MG TAB PO SCH ×3 (08:31→22:04)
[2016-09-06] MEDS: MAGNESIUM OXIDE 400 MG TAB PO SCH (08:31)
[2016-09-06 08:37] LABS: Basophils % (A) 1 %; CH 31.2; CHCM 33.4; Eosinophils % (A) 1 %; HCT 40.5 % (39.0-53.0); HDW 2.61; HGB 13.6 gm/dL (13.0-17.5); Luc # (Auto) 0.14; Luc % (Auto) 3; Lymphocytes # (A) 1.1 k/uL (1.0-4.8); Lymphocytes % (A) 24 %; MCH 31.5 pg (25.0-35.0); MCHC 33.6 g/dL (31.0-37.0); MCV 93.6 fL (80.0-100.0); Mean Platelet Volume 8.4; Monocytes # (A) 0.3 k/uL (0-1.0); Monocytes % (A) 6 %; Neutrophils # (A) 2.9 k/uL (1.3-7.7); Neutrophils % (A) 66 %; RBC 4.32 m/uL (4.30-5.90); RDW 13.3 % (11.5-15.5); WBC 4.4 k/uL (3.8-10.6); WBC (Perox) 4.77
[2016-09-06 08:52] LABS: Anion Gap 16 mmol/L; Blood Urea Nitrogen 8 mg/dL (9-20); Calcium 7.1 mg/dL (8.4-10.2); Carbon Dioxide 25 mmol/L (22-30); Chloride 97 mmol/L (98-107); Glucose 85 mg/dL (74-99); Non-African American GFR(MDRD) >60 (>60 ml/min/1.73 sqM); Potassium 3.9 mmol/L (3.5-5.1); Sodium 138 mmol/L (137-145)
[2016-09-06 08:59] LABS: Magnesium 0.9 mg/dL (1.6-2.3)
[2016-09-06 09:01] LABS: Manual Review Performed; RBC Morphology Normal
[2016-09-06 09:13] VITALS: BMI 41.5
[2016-09-06] MEDS ORDERED: Magnesium Replacement Protocol 1 EACH MISC MISCELLANE PRN (10:10)
[2016-09-06] MEDS: MAGNESIUM SULFATE-D5W PMX 1 GM in DEXTROSE/WATER 1 100ML.BAG IVPB SCH ×4 (11:09→14:47)
--- NOTE | 2016-09-06 11:12 | HP ---
DATE OF ADMISSION: 09/05/2016 CHIEF COMPLAINT: Intractable nausea and vomiting. HISTORY OF PRESENT ILLNESS: Mr. Chiang is a 41-year-old male with known history of alcohol abuse, came to the hospital with complaints of one week of nausea, vomiting, and diarrhea with inability to take any food down. Patient also has increased cough. No sputum production. The patient denied any diarrhea or abdominal pain. The patient apparently has been drinking every day, one pint a day. The patient does have cough with sputum production but denied any fevers or chills. The patient has not been getting enough sleep and kept on drinking, drinking the whole day usually, sometimes. No diarrhea. No sick contacts at home. No recent illnesses. Denied any chest pain. No short of breath. Denied any headache and lightheadedness. No orthopnea, no PND. REVIEW OF SYSTEMS: No fever. No chills. No weakness or malaise. No cough or sputum production. No chest pain, no leg swelling. Patient does have nausea and vomiting. No diarrhea. Abdominal pain, mainly in the epigastric region. , endocrine, psychiatric negative. All other 14-point review of systems negative except as above. PAST MEDICAL HISTORY: GERD, hypertension, osteoarthritis, seizure disorder, bilateral varicose veins, spinal stenosis, herniated disk, hemorrhoids, alcohol abuse, drinks about one-fifth of vodka a day. PAST SURGICAL HISTORY: Appendectomy, tonsillectomy, laminectomy, bilateral diskectomy L5-S1. PSYCHIATRIC HISTORY: Anxiety and depression. SOCIAL HISTORY: Patient never a smoker. Heavy alcohol abuse, one-fifth of vodka per day. 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 Mother recently. FAMILY HISTORY: Father had melanoma and Parkinson's dementia. Mother had hypertension, musculoskeletal disorder, neurological disorder and osteoarthritis; recently . Allergies include CEPHALOSPORIN, DIPHENHYDRAMINE FROM BENADRYL and DEPAKOTE. Home medications: 1. Multivitamins. 2. Magnesium oxide. 3. Vitamin B complex. 4. Atenolol. 5. Fluticasone. 6. [place] 10. 7. Albuterol inhaler. 8. Folic acid. 9. Thiamine. 10. Lorazepam. 11. Omeprazole. ALLERGIES: As above. PHYSICAL EXAMINATION: A 41-year-old man lying in bed. Awake, alert, oriented. He appears to be lethargic and drowsy. VITALS: Blood pressure is 130/72, pulse is 83, respirations 20, temperature afebrile, pulse ox 94% on room air. HEENT: Atraumatic, normocephalic. NECK: Supple. No JVD. CVS: S1 and S2 heard. No murmurs, no gallop, no rub. LUNGS: Bilateral air entry is present. Decreased air entry bilaterally basally. Nonlabored breathing. No wheezing. ABDOMEN: Soft, nontender, bowel sounds present. MEDICAL CHARGE ENTRY SPECIALIST: No focal neurologic deficits. Cranial nerves grossly intact. EXTREMITIES: No edema. Pulses palpable bilaterally. No clubbing or cyanosis. PSYCHIATRIC: Cooperative. SKIN: No rash or skin lesions. LABORATORY DATA: WBC 4.6, hemoglobin 14.9, platelets 114. INR 1.1. Sodium 142, potassium 3.9, chloride 95, BUN is 7, creatinine 0.7, lactic acid 5.8 on admission, magnesium 0.9, AST 430, ALT 204. CPK level 171, troponin less than 0.012, ( ) 123. Influenza negative. Hepatitis panel negative. Chest x-ray, no acute findings. KUB x-ray, no acute findings. EKG showed normal sinus rhythm. CT of the abdomen and pelvis showed hepatomegaly and fatty infiltration of the liver and uncomplicated diverticulosis of the sigmoid colon. IMPRESSION: 1. Intractable nausea, vomiting, and abdominal pain, likely possible alcoholic gastritis because of severe alcohol abuse. Drinks about one-fifth of vodka a day. 2. Anion gap metabolic acidosis. 3. Hypomagnesemia. 4. Thrombocytopenia secondary to alcohol abuse. 5. Hepatomegaly and fatty infiltration of the liver. 6. Diverticulosis of the sigmoid colon. 7. History of alcohol abuse. 8. Gastroesophageal reflux disease. 9. Hypertension. 10. Osteoarthritis. 11. Seizure disorder. 12. Bilateral varicose veins. 13. Hemorrhoids. 14. Laminectomy and bilateral diskectomy and spinal stenosis. DISCUSSION AND PLAN: A 41-year-old male with multiple medical problems and comorbid conditions, admitted to the hospital with nausea, vomiting, abdominal pain, possible gastritis alcoholic-related. The patient also having alcohol abuse. We will monitor for alcohol withdrawal symptoms. Continue the home medications. Replace magnesium and continue with IV fluids. Further recommendations based on clinical course. Prognosis is guarded. Will monitor for alcohol withdrawal symptoms.
[2016-09-06] MEDS: 1: MVI, ADULT NO.4 WITH VIT K 10 ML, THIAMINE 100 MG, FOLIC ACID 1 MG in SODIUM CHLORIDE IV SCH ×8 (15:18→16:07)
[2016-09-06] MEDS: HYDROcodone/APAP 10-325MG 1 EACH TAB PO PRN ×2 (16:06→22:04)
[2016-09-06] MEDS ORDERED: SODIUM CHLORIDE 0.9% 1,000 ML BAG ONE (16:07)
[2016-09-07] MEDS: LORazepam 2 MG/ML SYRINGE IV PRN ×5 (02:20→18:20)
[2016-09-07] MEDS: ONDANSETRON 4 MG/2 ML VIAL IVP PRN ×3 (02:20→18:20)
[2016-09-07] MEDS: 1: MVI, ADULT NO.4 WITH VIT K 10 ML, THIAMINE 100 MG, FOLIC ACID 1 MG in SODIUM CHLORIDE IV SCH ×12 (02:21→23:04)
[2016-09-07] MEDS: HYDROcodone/APAP 10-325MG 1 EACH TAB PO PRN ×4 (04:17→22:37)
[2016-09-07] MEDS: MAGNESIUM OXIDE 400 MG TAB PO SCH (08:03)
[2016-09-07] MEDS: PANTOPRAZOLE 40 MG TABLET PO SCH (08:03)
[2016-09-07] MEDS: ATENOLOL 50 MG TAB PO SCH (08:03)
[2016-09-07] MEDS: B COMPLEX-VIT C-VIT E-ZINC 1 EACH TAB PO SCH (08:03)
[2016-09-07] MEDS: LORazepam 1 MG TAB PO SCH ×3 (08:03→21:36)
[2016-09-07] MEDS: MAGNESIUM SULFATE-D5W PMX 1 GM in DEXTROSE/WATER 1 100ML.BAG IVPB SCH ×3 (11:04→13:28)
[2016-09-07] MEDS ORDERED: SODIUM CHLORIDE 0.9% 1,000 ML BAG ONE (14:10)
[2016-09-08] MEDS: ONDANSETRON 4 MG/2 ML VIAL IVP PRN ×2 (03:00→10:42)
[2016-09-08] MEDS: LORazepam 2 MG/ML SYRINGE IV PRN ×2 (03:07→12:30)
[2016-09-08] MEDS: HYDROcodone/APAP 10-325MG 1 EACH TAB PO PRN ×2 (06:01→10:37)
[2016-09-08] MEDS: B COMPLEX-VIT C-VIT E-ZINC 1 EACH TAB PO SCH (08:12)
[2016-09-08] MEDS: ATENOLOL 50 MG TAB PO SCH (08:12)
[2016-09-08] MEDS: PANTOPRAZOLE 40 MG TABLET PO SCH (08:12)
[2016-09-08] MEDS: LORazepam 1 MG TAB PO SCH (08:12)
[2016-09-08 09:21] LABS: Basophils % (A) 1 %; CH 31.2; CHCM 33.6; Eosinophils # (A) 0.1 k/uL (0-0.7); Eosinophils % (A) 2 %; HCT 40.8 % (39.0-53.0); HDW 2.77; HGB 13.6 gm/dL (13.0-17.5); Luc # (Auto) 0.18; Luc % (Auto) 4; Lymphocytes # (A) 1.4 k/uL (1.0-4.8); Lymphocytes % (A) 27 %; MCH 30.9 pg (25.0-35.0); MCHC 33.2 g/dL (31.0-37.0); MCV 93.1 fL (80.0-100.0); Mean Platelet Volume 7.7; Monocytes # (A) 0.3 k/uL (0-1.0); Monocytes % (A) 6 %; Neutrophils # (A) 3.3 k/uL (1.3-7.7); Neutrophils % (A) 62 %; RBC 4.39 m/uL (4.30-5.90); RDW 13.4 % (11.5-15.5); WBC 5.3 k/uL (3.8-10.6); WBC (Perox) 5.63
[2016-09-08 09:33] VITALS: BP 145/87; PULSE 76; RESP 18; TEMP 98.1
[2016-09-08 09:37] LABS: ALT 92 U/L (21-72); AST 184 U/L (17-59); Alkaline Phosphatase 60 U/L (38-126); Anion Gap 16 mmol/L; Blood Urea Nitrogen 7 mg/dL (9-20); Calcium 8.1 mg/dL (8.4-10.2); Carbon Dioxide 24 mmol/L (22-30); Chloride 99 mmol/L (98-107); Glucose 80 mg/dL (74-99); Magnesium 1.4 mg/dL (1.6-2.3); Non-African American GFR(MDRD) >60 (>60 ml/min/1.73 sqM); Sodium 139 mmol/L (137-145); Total Bilirubin 1.4 mg/dL (0.2-1.3); Total Protein 6.8 g/dL (6.3-8.2)
[2016-09-08] MEDS: 1: MVI, ADULT NO.4 WITH VIT K 10 ML, THIAMINE 100 MG, FOLIC ACID 1 MG in SODIUM CHLORIDE IV SCH ×4 (09:37)
[2016-09-08] MEDS ORDERED: SODIUM CHLORIDE 0.9% 1,000 ML BAG ONE (09:37)
[2016-09-08] MEDS: MAGNESIUM OXIDE 400 MG TAB PO SCH (10:37)
--- NOTE | 2016-09-08 12:24 | PN ---
DATE OF SERVICE: 09/07/2016 INTERVAL HISTORY: Mr. Damian is a 41 -year-old male with known history of alcohol abuse, admitted to the hospital with intractable nausea, vomiting, diarrhea and abdominal pain and unable to keep down food. The patient is being currently treated for alcohol withdrawal symptoms and nausea for symptomatic management of nausea and vomiting. Patient is tolerating p.o. diet today. Abdominal pain has improved. Requiring less Ativan dose. Otherwise, no acute overnight issues. Anticipate discharge in the next 24 hours with more clinical movement. Magnesium level came up to 1.4 now. Complete review of systems negative except as above. Current medications include: 1. [place] 10. 2. Maalox. 3. Atenolol. 4. Calcium carbonate. 5. Flonase. 6. Ativan. 7. Magnesium oxide. 8. Narcan. 9. Zofran. 10. Protonix. 11. Normal saline at 100 mL per hour. 12. Vitamin B complex. PHYSICAL EXAMINATION: This is a 41 -year-old male lying in bed comfortably, awake, alert and oriented times three, appears to be in no apparent distress. VITALS: Blood pressure is 143/84, pulse 79, respiratory rate 16, temperature afebrile. Pulse ox 99 percent on room air. HEENT: Atraumatic, normocephalic. Neck is supple. No JVD. CVS: S1, S2 heard, no murmurs, no gallop, no rub. LUNGS: Bilateral air entry is present. No wheezing. No crackles. ABDOMEN: Soft, nontender. Bowel sounds are present. THRILL PERFORMER: Awake, alert, oriented, x3. No focal deficits. EXTREMITIES: No edema. Pulses palpable bilaterally. No clubbing or cyanosis. PSYCHIATRIC: Cooperative. LABORATORY DATA: Reviewed. Magnesium level 1.4. IMPRESSION: 1. Intractable nausea, vomiting, abdominal pain secondary to alcoholic gastritis improved now. 2. Alcohol abuse with one fifth of vodka a day. 3. Anion gap metabolic encephalopathy, improved. 4. Hypomagnesemia, improved. 5. Thrombocytopenia. 6. Hepatomegaly with fatty infiltration of the liver. Liver enzymes elevated with alcoholic hepatitis. 7. History of diverticulosis of the sigmoid colon. 8. History of alcohol abuse. 9. Hypertension. 10. Osteoarthritis. 11. History of seizure disorder. 12. Bilateral varicose veins. 13. Hemorrhoids. 14. Laminectomy. 15. Bilateral discectomy and spinal stenosis. 16. Deep venous thrombosis prophylaxis. DISCUSSION AND PLAN: Patient will be continued on IV fluids, continue to encourage fluids and p.o. intake and replace magnesium level. Follow closely. Anticipate discharge tomorrow with more clinical movement. Will check liver enzymes tomorrow.
--- NOTE | 2016-09-08 12:48 | PN ---
DATE OF SERVICE: 09/06/2016 INTERVAL HISTORY: Mr. Damian is a 41-year-old male with a known history of alcohol abuse, admitted to the hospital with complaints of nausea, vomiting and diarrhea. Patient unable to keep down food. Patient is being treated for acute alcohol withdrawals as well as abdominal pain. Patient is tolerating p.o. diet today. Still complaining of abdominal pain, requesting IV pain medications. Otherwise, the patient denied any complaints of fever or chills. No acute overnight issues. REVIEW OF SYSTEMS: CONSTITUTIONAL: No fever, no chills. RESPIRATORY: No cough or sputum production. CARDIOVASCULAR: No chest pain or short of breath. ABDOMEN: Patient denied any nausea. Patient does have abdominal pain. No diarrhea. GENITOURINARY: Negative. ENDOCRINE: Negative. PSYCHIATRY: Negative. SKIN: Negative. All other 14-point review of systems negative, except as above. CURRENT MEDICATIONS: Reviewed. PHYSICAL EXAMINATION: A 41-year-old male, lying in bed comfortably, awake, alert, oriented, x3, appears to be in no apparent distress. VITALS: Blood pressure is 143/84, pulse is 83, respirations 18, temperature afebrile, pulse ox 99% on room air. HEENT: Atraumatic, normocephalic. Neck is supple. No JVD. CVS: S1, S2 heard. No murmurs, no gallop. LUNGS: Bilateral air entry is present. Decreased breath sounds basally. Nonlabored breathing. Abdomen is soft, nontender. Bowel sounds are present. MANAGED SERVICES CONSULTANT: Awake, alert, oriented x3 lethargic. No focal deficit. EXTREMITIES: No edema. Pulses palpable bilaterally. No clubbing or cyanosis. PSYCHIATRIC: Cooperative. LABORATORY DATA: WBC 4.4, hemoglobin 13.6, platelets 80, sodium 138, potassium 3.9, chloride 97, bicarb is 25. BUN 8, creatinine 0.64, lactic acid came down to 0.9 and magnesium 0.9. Calcium 7.1, hepatitis panel negative, ( ) are negative. IMPRESSION: 1. Intractable nausea, vomiting, or abdominal pain, likely alcoholic gastritis with severe alcohol abuse, drinks about one-fifth of vodka 2. Anion gap metabolic acidosis. 3. Hypomagnesemia. 4. Thrombocytopenia. 5. Hepatomegaly and fatty infiltration of the liver. 6. Sigmoid diverticulosis. 7. History of alcohol abuse. 8. Gastroesophageal reflux disease. 9. Hypertension. 10. Osteoarthritis. 11. History of alcoholic seizure disorder. 12. Bilateral varicose veins. 13. Hemorrhage. 14. History of laminectomy and bilateral discectomy and spinal stenosis. DISCUSSION AND PLAN: Patient will be continued on current pain management, IV fluids and Ativan for alcohol withdrawal symptoms. Continue to monitor closely and advanced diet as tolerated and anticipate discharge further with more clinical movement at this time of dictation.
--- NOTE | 2016-09-09 21:49 | DS ---
DATE OF ADMISSION: 09/05/2016 DATE OF DISCHARGE: 09/08/2016 DISCHARGE DIAGNOSES: 1. Intractable nausea, vomiting, abdominal pain secondary to alcoholic gastritis, improved now. 2. Alcohol abuse; one fifth of vodka per day. 3. Anion-gap metabolic acidosis, improved now. 4. Hypomagnesemia. Continue with supplementation at home. 5. Thrombocytopenia secondary to alcohol abuse. 6. Hepatomegaly with fatty infiltration of the liver. 7. Elevated liver enzymes, possibly alcoholic hepatitis. 8. History of diverticulosis of the sigmoid colon. 9. Alcohol abuse. 10. Hypertension. 11. Osteoarthritis. 12. History of seizure disorder. 13. Bilateral varicose veins. 14. Hemorrhoids. 15. Laminectomy history. 16. Bilateral discectomy and spinal stenosis. 17. Deep venous thrombosis prophylaxis with subcutaneous heparin. HOSPITAL COURSE: [id number]-old male with known history of alcohol abuse admitted to the hospital with nausea, vomiting, abdominal pain with possible gastritis, alcoholic-related. Continued on ( ) as well as IV fluids and pain management. Continued with ( ) scale. Patient tolerating diet slowly and patient was replaced with magnesium for hypomagnesemia. He continues to be hypomagnesemic at this time. Patient will be supplemented at home. Otherwise, patient is tolerating p.o. diet. Patient also had elevated liver enzymes on admission, which are improving now. Patient was counseled extensively about smoking cessation. Patient is medically much improved and tolerating p.o. diet. No active issues going on at this time. Patient will be discharged home in stable condition. Activity as tolerated. Heart-healthy diet. Discharge physical examination: tkrne-uqodz-[id number]-old male lying in bed comfortably. Awake, alert and oriented x3. No apparent distress. VITALS: Blood pressure is 145/87. Pulse is 76, respiration 18, temperature afebrile. Pulse ox 98% on room air. Lab data reviewed. Magnesium 1.4. AST is 184. ALT is 92, trending down. Discharge physical examination done. Discharge medications include: 1. Albuterol inhaler 2 puffs q.8 hourly p.r.n. for shortness of breath. 2. Xanax 1 mg p.o. b.i.d. 3. Atenolol 50 mg p.o. daily. 4. Calcium carbonate 1000 mg p.o. b.i.d. 5. Cozaar 25 mg p.o. daily. 6. Magnesium oxide 400 mg daily for 10 days. 7. Omeprazole 20 mg before breakfast; 30 capsules. Patient will be discharged home with self-care. Follow with Dr. Veena Bynum in 1 to 2 days.
== END 2016-09-08 14:17 | disposition home or self-care (01) | DRG 392 ==
LOC: EC 03:33 → 4MS4W 06:41
PROVIDERS: ADMIT Hospitalist; ATTEND Hospitalist
DX: K29.20 Alcoholic gastritis without bleeding (principal); D69.59 Other secondary thrombocytopenia; E87.2 Acidosis; E83.42 Hypomagnesemia; E86.0 Dehydration; F10.239 Alcohol dependence with withdrawal, unspecified; F17.200 Nicotine dependence, unspecified, uncomplicated; I10 Essential (primary) hypertension; I83.93 Asymptomatic varicose veins of bilateral lower extremities; K21.9 Gastro-esophageal reflux disease without esophagitis; K57.30 Diverticulosis of large intestine without perforation or abscess without bleeding; K64.9 Unspecified hemorrhoids; K70.10 Alcoholic hepatitis without ascites; K76.0 Fatty (change of) liver, not elsewhere classified; M19.90 Unspecified osteoarthritis, unspecified site; M48.00 Spinal stenosis, site unspecified; Z79.899 Other long term (current) drug therapy; Z82.49 Family history of ischemic heart disease and other diseases of the circulatory system; Z87.01 Personal history of pneumonia (recurrent)
CPT/HCPCS: 36415; 71020; 74000; 74177; 80048; 80053; 80074; 82150; 82550; 82553; 83605; 83690; 83735; 84484; 85025; 85610; 85730; 87040; 87502; 93005; 94640; 94760; 96365; 96366; 96372; 96375; 96376; 99285

== ENCOUNTER 2016-09-15 11:18 | Inpatient (IN) | payer OTHER ==
[2016-09-15] MEDS ORDERED: LORazepam 2 MG/ML SYRINGE IV STA ×2 (12:18→14:20)
[2016-09-15] MEDS ORDERED: ONDANSETRON 4 MG/2 ML VIAL IVP STA (12:18)
[2016-09-15] MEDS ORDERED: PANTOPRAZOLE 40 MG/10 ML VIAL IVP STA (12:18)
[2016-09-15] MEDS ORDERED: IBUPROFEN 800 MG TAB PO STA (12:18)
[2016-09-15] MEDS ORDERED: SODIUM CHLORIDE 0.9% 500 ML IV STA (12:18)
[2016-09-15] MEDS ORDERED: SODIUM CHLORIDE 0.9% 1,000 ML IV STA ×2 (12:18)
[2016-09-15] MEDS ORDERED: ACETAMINOPHEN TAB 500 MG TAB PO STA (12:18)
--- NOTE | 2016-09-15 12:22 | ED ---
General Adult HPI - General Chief complaint: Upper Respiratory Infection Stated complaint: vomiting,congestion Time Seen by Provider: 09/15/16 11:59 Source: patient, RN notes reviewed, old records reviewed Mode of arrival: ambulatory Limitations: no limitations - History of Present Illness Initial comments: A 41-year-old male ER for evaluation of multiple complaints, patient's complaints are trembling, shaking, fever, sweating, not feeling well with cough congestion runny nose and shortness of breath. Patient does have recent hospitalization admitted for pneumonia. Congestive significant history of asthma admits a chronic history of drinking. Patient states his last treatment was yesterday thinks he may be having some detox symptoms. Patient does have history of high blood pressure and seizures. Patient is taking all medications as prescribed. - Related Data Home Medications Medication Instructions Recorded Confirmed Albuterol Inhaler [Ventolin Hfa 2 puff INHALATION RT-Q8H PRN 07/09/16 09/15/16 Inhaler] Previous Rx's Medication Instructions Recorded ALPRAZolam [Xanax] 1 mg PO BID #15 09/08/16 Atenolol 50 mg PO DAILY #0 09/08/16 Calcium Carbonate [Tums] 1,000 mg PO BID 30 Days 09/08/16 Losartan [Cozaar] 25 mg PO DAILY #30 tab 09/08/16 Magnesium Oxide [Mag-Ox] 400 mg PO DAILY #10 tab 09/08/16 Omeprazole 20 mg PO AC-BRKFST #30 capsule. 09/08/16 Allergies Allergy/AdvReac Type Severity Reaction Status Date / Time Cephalosporins Allergy Severe Anaphylaxis Verified 09/15/16 12:06 diphenhydramine HCl Allergy Severe Anaphylaxis Verified 09/15/16 12:06 [From Benadryl] divalproex sodium Allergy Severe Anaphylaxis Verified 09/15/16 12:06 [From Depakote] ceftriaxone [From Rocephin] Allergy Unknown Verified 09/15/16 12:06 cephalexin [From Keflex] Allergy Unknown Verified 09/15/16 12:06 lisinopril Allergy Unknown Verified 09/15/16 12:06 Review of Systems ROS Statement: Those systems with pertinent positive or pertinent negative responses have been documented in the HPI. ROS Other: All systems not noted in ROS Statement are negative. Past Medical History Past Medical History: GERD/Reflux, Hypertension, Osteoarthritis (OA), Seizure Disorder, Sleep Apnea/CPAP/BIPAP Additional Past Medical History / Comment(s): Alcoholism, ETOH withdrawals, mild alcohol hepatitis, had episode of "fainting" 1 yrs ago and told he had a seizurepossible alcoholic seizures/blackouts, bilateral varicose veins, spinal stenosis with surgery, herniated disc, MILIND no CPAP, hemorrhoids. History of Any Multi-Drug Resistant Organisms: None Reported Past Surgical History: Appendectomy, Tonsillectomy Additional Past Surgical History / Comment(s): 09-20-15 LAMINECTOMY,bilateral DISCETOMY L5-S1. Past Anesthesia/Blood Transfusion Reactions: Motion Sickness Past Psychological History: Anxiety, Depression Additional Psychological History / Comment(s): Pt has depression which has been increased lately but denies thoughts of suicide or wishing he were . Pt currently lives alone. He had been living with his father but now father is in a skilled nursing. Pt uses no assistive device. He drives. Pt is an alcoholic. Smoking Status: Never smoker Past Alcohol Use History: Heavy Additional Past Alcohol Use History / Comment(s): Patient is a lifelong nonsmoker. He denies any medical marijuana, marijuana or street drug use. 1 fifth of vodka per day, last drink 09/04/16. 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 He denies any travel. He is currently living alone. He chewed tobacco as a teen. Past Drug Use History: None Reported - Past Family History Father Family Medical History: Cancer, Dementia Additional Family Medical History / Comment(s): melanoma, parkinsons Mother Family Medical History: Hypertension, Musculoskeletal Disorder, Neurologic Disorder, Osteoarthritis (OA) Additional Family Medical History / Comment(s): Recently . Had some motor neuron disease General Exam Limitations: no limitations, altered mental status General appearance: alert, anxious, in distress, obese Head exam: Present: atraumatic, normocephalic, normal inspection Eye exam: Present: normal appearance, PERRL, EOMI. Absent: scleral icterus, conjunctival injection, periorbital swelling ENT exam: Present: normal exam, mucous membranes moist Neck exam: Present: normal inspection. Absent: tenderness, meningismus, lymphadenopathy Respiratory exam: Present: normal lung sounds bilaterally. Absent: respiratory distress, wheezes, rales, rhonchi, stridor Cardiovascular Exam: Present: regular rate, normal rhythm, normal heart sounds. Absent: systolic murmur, diastolic murmur, rubs, gallop, clicks GI/Abdominal exam: Present: soft, normal bowel sounds. Absent: distended, tenderness, guarding, rebound, rigid Extremities exam: Present: normal inspection, full ROM, normal capillary refill. Absent: tenderness, pedal edema, joint swelling, calf tenderness Back exam: Present: normal inspection Neurological exam: Present: alert, oriented X3, CN II-XII intact Psychiatric exam: Present: normal affect, normal mood Skin exam: Present: warm, dry, intact, normal color. Absent: rash Course Vital Signs 09/15/16 11:31 Temperature 100.3 F H Pulse Rate 82 Respiratory 20 Rate Blood Pressure 159/90 O2 Sat by Pulse 97 Oximetry - Reevaluation(s) Reevaluation #1: 09/15/16 14:11 Patient's symptoms are mildly improved with fever control Medical Decision Making - Medical Decision Making 41 male the ER for evaluation of not feeling well fever cough and congestion, symptoms of upper respirator infection, female control, patient also with alcohol withdrawal with severely low magnesium. Patient be admitted for magnesium repletion - Lab Data Result diagrams: 09/15/16 12:12 09/15/16 12:12 Lab Results 09/15/16 09/15/16 09/15/16 Range/Units 11:34 12:12 12:12 WBC (3.8-10.6) k/uL RBC (4.30-5.90) m/uL Hgb (13.0-17.5) gm/dL Hct (39.0-53.0) % MCV (80.0-100.0) fL MCH (25.0-35.0) pg MCHC (31.0-37.0) g/dL RDW (11.5-15.5) % Plt Count (150-450) k/uL Neutrophils % % Lymphocytes % % Monocytes % % Eosinophils % % Basophils % % Neutrophils # (1.3-7.7) k/uL Lymphocytes # (1.0-4.8) k/uL Monocytes # (0-1.0) k/uL Eosinophils # (0-0.7) k/uL Basophils # (0-0.2) k/uL PT (9.0-12.0) sec INR (<1.1) APTT (22.0-30.0) sec Sodium 144 (137-145) mmol/L Potassium 4.3 (3.5-5.1) mmol/L Chloride 101 (98-107) mmol/L Carbon Dioxide 28 (22-30) mmol/L Anion Gap 15 mmol/L BUN 11 (9-20) mg/dL Creatinine 0.61 L (0.66-1.25) mg/dL Est GFR (MDRD) Af Amer >60 (>60 ml/min/1.73 sqM) Est GFR (MDRD) Non-Af >60 (>60 ml/min/1.73 sqM) Glucose 105 H (74-99) mg/dL Calcium 9.2 (8.4-10.2) mg/dL Phosphorus 3.3 (2.5-4.5) mg/dL Magnesium 0.8 L* (1.6-2.3) mg/dL Total Bilirubin 1.4 H (0.2-1.3) mg/dL AST 393 H (17-59) U/L ALT 253 H (21-72) U/L Alkaline Phosphatase 68 (38-126) U/L Total Creatine Kinase 145 (55-170) U/L CK-MB (CK-2) 2.0 (0.0-2.4) ng/mL CK-MB (CK-2) Rel Index 1.4 Troponin I <0.012 (0.000-0.034) ng/mL Total Protein 7.8 (6.3-8.2) g/dL Albumin 4.7 (3.5-5.0) g/dL Serum Alcohol <10 mg/dL Influenza Type A RNA Not Detected (Not Detectd) Influenza Type B (PCR) Not Detected (Not Detectd) 09/15/16 09/15/16 Range/Units 12:12 12:12 WBC 4.6 (3.8-10.6) k/uL RBC 4.73 (4.30-5.90) m/uL Hgb 14.8 (13.0-17.5) gm/dL Hct 44.5 (39.0-53.0) % MCV 94.0 (80.0-100.0) fL MCH 31.2 (25.0-35.0) pg MCHC 33.2 (31.0-37.0) g/dL RDW 14.0 (11.5-15.5) % Plt Count 227 D (150-450) k/uL Neutrophils % 64 % Lymphocytes % 27 % Monocytes % 5 % Eosinophils % 1 % Basophils % 0 % Neutrophils # 3.0 (1.3-7.7) k/uL Lymphocytes # 1.3 (1.0-4.8) k/uL Monocytes # 0.2 (0-1.0) k/uL Eosinophils # 0.0 (0-0.7) k/uL Basophils # 0.0 (0-0.2) k/uL PT 10.8 (9.0-12.0) sec INR 1.1 (<1.1) APTT 23.4 (22.0-30.0) sec Sodium (137-145) mmol/L Potassium (3.5-5.1) mmol/L Chloride (98-107) mmol/L Carbon Dioxide (22-30) mmol/L Anion Gap mmol/L BUN (9-20) mg/dL Creatinine (0.66-1.25) mg/dL Est GFR (MDRD) Af Amer (>60 ml/min/1.73 sqM) Est GFR (MDRD) Non-Af (>60 ml/min/1.73 sqM) Glucose (74-99) mg/dL Calcium (8.4-10.2) mg/dL Phosphorus (2.5-4.5) mg/dL Magnesium (1.6-2.3) mg/dL Total Bilirubin (0.2-1.3) mg/dL AST (17-59) U/L ALT (21-72) U/L Alkaline Phosphatase (38-126) U/L Total Creatine Kinase (55-170) U/L CK-MB (CK-2) (0.0-2.4) ng/mL CK-MB (CK-2) Rel Index Troponin I (0.000-0.034) ng/mL Total Protein (6.3-8.2) g/dL Albumin (3.5-5.0) g/dL Serum Alcohol mg/dL Influenza Type A RNA (Not Detectd) Influenza Type B (PCR) (Not Detectd) - Radiology Data Radiology results: report reviewed (Chest x-ray is negative for acute disease), image reviewed Disposition Clinical Impression: Fever, Upper respiratory infection, Elevated liver enzymes, Dehydration, Hypomagnesemia Disposition: ADMITTED IP TO THIS HOSP Condition: Fair Referrals: Veena Bynum DO [Primary Care Provider] - 1-2 days
[2016-09-15 12:46] LABS: Basophils % (A) 0 %; CH 31.6; CHCM 33.7; Eosinophils % (A) 1 %; HCT 44.5 % (39.0-53.0); HDW 2.61; HGB 14.8 gm/dL (13.0-17.5); Luc % (Auto) 2; Lymphocytes # (A) 1.3 k/uL (1.0-4.8); Lymphocytes % (A) 27 %; MCH 31.2 pg (25.0-35.0); MCHC 33.2 g/dL (31.0-37.0); Mean Platelet Volume 7.3; Monocytes # (A) 0.2 k/uL (0-1.0); Monocytes % (A) 5 %; Neutrophils % (A) 64 %; RBC 4.73 m/uL (4.30-5.90); WBC 4.6 k/uL (3.8-10.6); WBC (Perox) 4.62
[2016-09-15 12:57] LABS: INR 1.1 (<1.1); Partial Thromboplastin Time 23.4 sec (22.0-30.0); Prothrombin Time 10.8 sec (9.0-12.0)
[2016-09-15 13:00] LABS: ALT 253 U/L (21-72); AST 393 U/L (17-59); Alcohol <10 mg/dL; Alkaline Phosphatase 68 U/L (38-126); Anion Gap 15 mmol/L; Blood Urea Nitrogen 11 mg/dL (9-20); Calcium 9.2 mg/dL (8.4-10.2); Carbon Dioxide 28 mmol/L (22-30); Chloride 101 mmol/L (98-107); Glucose 105 mg/dL (74-99); Non-African American GFR(MDRD) >60 (>60 ml/min/1.73 sqM); Phosphorous 3.3 mg/dL (2.5-4.5); Potassium 4.3 mmol/L (3.5-5.1); Sodium 144 mmol/L (137-145); Total Bilirubin 1.4 mg/dL (0.2-1.3); Total Protein 7.8 g/dL (6.3-8.2)
[2016-09-15 13:11] LABS: Magnesium 0.8 mg/dL (1.6-2.3)
[2016-09-15 13:12] LABS: Creatine Kinase 145 U/L (55-170)
[2016-09-15 13:24] LABS: Troponin I <0.012 ng/mL (0.000-0.034)
[2016-09-15] MEDS ORDERED: MAGNESIUM OXIDE 400 MG TAB PO STA (13:48)
--- NOTE | 2016-09-15 13:57 | XR ---
EXAMINATION TYPE: XR chest 2V DATE OF EXAM: 09/15/2016 1:44 PM COMPARISON: 09/05/2016 TECHNIQUE: PA and lateral views submitted. HISTORY: Cough and congestion FINDINGS: The lungs are clear and there is no pneumothorax, pleural effusion, or focal pneumonia. Hypertrophic changes. Stable pleural-based thickening.. IMPRESSION: 1. No acute process.
[2016-09-15] MEDS ORDERED: LORazepam 2 MG/ML SYRINGE IV PRN ×2 (14:09)
[2016-09-15] MEDS ORDERED: THIAMINE 100 MG/ML 2 ML VIAL IVPB STA (14:09)
[2016-09-15] MEDS: MAGNESIUM SULFATE-D5W PMX 1 GM in DEXTROSE/WATER 1 100ML.BAG IVPB SCH ×4 (14:13→18:29)
[2016-09-15] MEDS ORDERED: MORPHINE SULFATE 4 MG/ML SYRINGE IVP PRN (14:20)
[2016-09-15] MEDS ORDERED: MORPHINE SULFATE 4 MG/ML SYRINGE IVP STA (14:20)
[2016-09-15 15:09] VITALS: BMI 41.6
[2016-09-15] MEDS ORDERED: IPRATROPIUM-ALBUTEROL 3 ML NEB INHALATION PRN (16:29)
[2016-09-15] MEDS: LORazepam 2 MG/ML SYRINGE IV PRN ×3 (16:59→23:04)
[2016-09-15] MEDS: THIAMINE 100 MG TAB PO SCH (17:00)
[2016-09-15] MEDS: ONDANSETRON 4 MG/2 ML VIAL IVP PRN (17:21)
[2016-09-15] MEDS: HYDROmorphone 1 MG/ML 1 ML SYRINGE IVP PRN (18:33)
[2016-09-15] MEDS: SODIUM CHLORIDE 0.9% 1,000 ML with POTASSIUM CHLORIDE 20 MEQ, MVI, ADULT NO.4 WITH VIT ... IV SCH ×5 (18:45)
[2016-09-15] MEDS: LEVOFLOXACIN 500MG-D5W PMX 500 MG in DEXTROSE/WATER 1 100ML.BAG IVPB SCH (19:34)
[2016-09-15] MEDS: CALCIUM CARBONATE 500 MG CHEWABLE PO SCH (20:05)
[2016-09-15] MEDS: HEPARIN SODIUM,PORCINE 5,000 UNIT/ML 1 ML VIAL SQ SCH (20:05)
[2016-09-15] MEDS: ALPRAZolam 0.5 MG TAB PO SCH (20:05)
[2016-09-15] MEDS: PANTOPRAZOLE 40 MG/10 ML VIAL IVP SCH (20:06)
[2016-09-15] MEDS: IPRATROPIUM-ALBUTEROL 3 ML NEB INHALATION SCH (21:02)
--- NOTE | 2016-09-15 22:49 | HP ---
DATE OF ADMISSION: 09/15/2016 CHIEF COMPLAINT: Vomiting, chest congestion, cough and ETOH. HISTORY OF PRESENT ILLNESS: This 41-year-old gentleman with a past history of significant ETOH, history of GERD , hypertension, history of DJD, history of features of sleep apnea, history of appendectomy, tonsillectomy, anxiety, depression, being followed by Dr. Bynum in the outpatient setting, recently admitted to [facility] with intractable nausea, vomiting, and abdominal pain. The patient was thought to have alcoholic gastritis. The patient also had alcohol withdrawals and mild alcoholic hepatitis. The patient is currently drinking one fifth of alcohol. The patient apparently tried to get rehab and only the most recent date available is September 30, apparently he started drinking again last night at 6:00 the patient drank about one fifth of alcohol, started having significant vomiting and unable to keep anything down. The patient also has chest congestion, cough, also and because of multiple complex medical issues the patient came to [facility] and was admitted for further evaluation and treatment. Of note, magnesium found to be 0.8, total bilirubin 1.8, indicating alcoholic hepatitis. The patient also had a chest x-ray done, which showed no acute process. There is no history of fever, rigors or chills. Past medical history: History of alcohol, alcoholism, history of hypertension, DJD, seizures, GERD, tonsillectomy and appendectomy. Medications prior to admission include home medications: 1. Omeprazole 10 milligrams a.c. breakfast. 2. Magnesium oxide 400 mg daily. 3. Cozaar 25 mg daily. 4. TUMS 1000 mg b.i.d. 5. Atenolol 50 mg daily. 6. Ventolin HFA 2 puffs every 8 hours p.r.n. 7. Xanax 1 mg p.o. b.i.d. ALLERGIES: CEPHALOSPORINS, BENADRYL, DEPAKOTE, AND LISINOPRIL. FAMILY HISTORY: History of cancer, dementia, melanoma, Parkinson's. SOCIAL HISTORY: History of alcohol as mentioned earlier. No history of smoking. REVIEW OF SYSTEMS: ENT: No diminishing hearing. Diminished vision. CARDIOVASCULAR: No angina or palpitations. RESPIRATORY: As mentioned earlier. GI: As mentioned earlier. : No dysuria. Nervous system: No numbness or weakness. Allergy/immunology: No asthma or hayfever. MUSCULOSKELETAL: As mentioned earlier. HEMATOLOGY/ONCOLOGY: No history of anemia. ENDOCRINE: No history of diabetes, hypothyroidism. CONSTITUTIONAL: As mentioned earlier. DERMATOLOGY: Negative. PSYCHIATRY: As mentioned earlier. PHYSICAL EXAMINATION: The patient is alert and oriented times three. Pulse 82. Blood pressure 159/90. Respiratory rate 20. Temperature 100.3. Pulse 97% on room air. HEENT: Conjunctivae normal. Oral mucosa moist. NECK: No jugular venous distention. No carotid bruit. No lymph node enlargement. CARDIOVASCULAR: S1, S2 muffled. No S3, no S4. RESPIRATORY: Breath sounds diminished at the bases. A few scattered rhonchi and crackles. ABDOMEN: Soft. Mild diffuse discomfort. Otherwise no guarding, no rigidity. No mass palpable. No ascites. Legs: No edema. No swelling. CENTRAL NERVOUS SYSTEM: Higher functions as mentioned earlier. Moves all four limbs. No focal deficits. LYMPHATICS: No lymph nodes palpable in the neck, axillae or groin. SKIN: No ulcer, rash or bleeding. LABS: CBC within normal limits, otherwise magnesium 0.8. Total bilirubin is 1.5. AST 393. ALT 253. ASSESSMENT: 1. Severe vomiting and abdominal discomfort, possible alcoholic gastritis. 2. Alcoholic hepatitis. 3. Severe hypomagnesemia. 4. Cough, possibly aspiration bronchitis rule out acute purulent tracheobronchitis. 5. History of ETOH. 6. Gastroesophageal reflux disease. 7. Hypertension. 8. History of degenerative joint disease. 9. History of seizure disorder. 10. History of sleep apnea. 11. History of obesity with body mass index of 41.7. 12. History of ETOH withdrawals and delirium tremens. 13. History of spinal stenosis and degenerative joint disease. 14. History of herniated disc and history of degenerative joint disease. 15. History of anxiety, depression, not otherwise specified. 16. FULL CODE. RECOMMENDATIONS AND DISCUSSION: In this 41-year-old gentleman who presented with multiple complex medical issues, we will monitor the patient closely. Continue the current medications. Continue symptomatic treatment. Recommend Protonix and also empiric antibiotics. Otherwise, I would recommend bronchodilators, alcohol cessation advised. Other than that, we also get social service consultation to address the home situation. Apparently the patient is living by himself and patient the patient used to live this his father who is in [facility] right now. Prognosis extremely guarded because of multiple complex medical issues. recheck magnesium and continue to monitor. See orders for further details. Blood culture has been ordered. MTDD
[2016-09-16] MEDS: HYDROmorphone 1 MG/ML 1 ML SYRINGE IVP PRN ×4 (00:16→20:04)
[2016-09-16] MEDS: ONDANSETRON 4 MG/2 ML VIAL IVP PRN ×4 (00:17→20:04)
[2016-09-16] MEDS: LORazepam 2 MG/ML SYRINGE IV PRN ×8 (02:00→22:16)
[2016-09-16] MEDS ORDERED: PANTOPRAZOLE 40 MG TABLET PO SCH (07:30)
[2016-09-16] MEDS: ALPRAZolam 0.5 MG TAB PO SCH ×2 (08:08→21:27)
[2016-09-16] MEDS: CALCIUM CARBONATE 500 MG CHEWABLE PO SCH ×2 (08:09→21:27)
[2016-09-16] MEDS: ATENOLOL 50 MG TAB PO SCH (08:09)
[2016-09-16] MEDS: PANTOPRAZOLE 40 MG/10 ML VIAL IVP SCH ×2 (08:09→21:27)
[2016-09-16] MEDS: LOSARTAN 25 MG TAB PO SCH (08:09)
[2016-09-16] MEDS: HEPARIN SODIUM,PORCINE 5,000 UNIT/ML 1 ML VIAL SQ SCH ×2 (08:09→21:27)
[2016-09-16] MEDS: MAGNESIUM OXIDE 400 MG TAB PO SCH (08:10)
[2016-09-16] MEDS: IPRATROPIUM-ALBUTEROL 3 ML NEB INHALATION SCH ×4 (08:22→20:01)
[2016-09-16] MEDS ORDERED: ENOXAPARIN 40 MG/0.4 ML SYRINGE SQ SCH (09:00)
[2016-09-16 09:42] LABS: Basophils % (A) 0 %; CH 31.5; Eosinophils % (A) 1 %; HCT 38.8 % (39.0-53.0); HDW 2.63; Luc # (Auto) 0.07; Luc % (Auto) 2; Lymphocytes # (A) 1.7 k/uL (1.0-4.8); Lymphocytes % (A) 38 %; MCH 31.1 pg (25.0-35.0); MCHC 33.6 g/dL (31.0-37.0); MCV 92.8 fL (80.0-100.0); Mean Platelet Volume 7.5; Monocytes # (A) 0.3 k/uL (0-1.0); Monocytes % (A) 6 %; Neutrophils # (A) 2.4 k/uL (1.3-7.7); Neutrophils % (A) 54 %; RBC 4.19 m/uL (4.30-5.90); RDW 13.8 % (11.5-15.5); WBC 4.5 k/uL (3.8-10.6)
[2016-09-16 10:08] LABS: ALT 169 U/L (21-72); AST 241 U/L (17-59); Alkaline Phosphatase 58 U/L (38-126); Anion Gap 13 mmol/L; Blood Urea Nitrogen 12 mg/dL (9-20); Calcium 7.9 mg/dL (8.4-10.2); Carbon Dioxide 27 mmol/L (22-30); Chloride 100 mmol/L (98-107); Glucose 97 mg/dL (74-99); Magnesium 1.5 mg/dL (1.6-2.3); Non-African American GFR(MDRD) >60 (>60 ml/min/1.73 sqM); Potassium 4.3 mmol/L (3.5-5.1); Sodium 140 mmol/L (137-145); Total Bilirubin 1.8 mg/dL (0.2-1.3); Total Protein 6.8 g/dL (6.3-8.2)
[2016-09-16] MEDS: SODIUM CHLORIDE 0.9% 1,000 ML with POTASSIUM CHLORIDE 20 MEQ, MVI, ADULT NO.4 WITH VIT ... IV SCH ×5 (10:35)
[2016-09-16] MEDS: FOLIC ACID 1 MG TAB PO SCH (11:20)
[2016-09-16] MEDS: THIAMINE 100 MG TAB PO SCH ×2 (11:20→16:51)
[2016-09-16 11:51] LABS: Appearance,Urine Clear (Clear); Bilirubin,Urine Negative (Negative); Glucose,Urine (UA) Negative (Negative); Ketones,Urine Negative (Negative); Leukocyte Esterase,Urine Negative (Negative); Nitrite,Urine Negative (Negative); Protein,Urine Trace (Negative); Specific Gravity,Urine 1.011 (1.001-1.035); UA Billing (MACRO vs. MICRO) CHEM; Urobilinogen,Urine <2.0 mg/dL (<2.0)
[2016-09-16] MEDS ORDERED: MULTIVITAMINS, THERA 1 EACH TAB PO SCH (12:00)
[2016-09-16] MEDS ORDERED: Magnesium Replacement Protocol 1 EACH MISC MISCELLANE PRN (16:19)
[2016-09-16] MEDS: MAGNESIUM SULFATE-D5W PMX 1 GM in DEXTROSE/WATER 1 100ML.BAG IVPB SCH ×2 (16:50→17:51)
--- NOTE | 2016-09-16 18:47 | PN ---
DATE OF SERVICE: 09/16/2016 This 41-year-old gentleman admitted with vomiting, congestion, cough and EtOH also had early DTs. The patient is being closely monitored. The patient has hypomagnesemia and multiple other abnormalities also. The patient is able to keep some food down now at this time. PAST MEDICAL HISTORY: Reviewed. REVIEW OF SYSTEMS: CARDIOVASCULAR: As mentioned earlier. GI: As mentioned. : No dysuria. NERVOUS SYSTEM: As mentioned earlier. Current medications are reviewed and include: 1. DuoNeb q.i.d. and p.r.n. 2. Xanax 0.1 mg b.i.d. 3. Tenormin 50 mg daily. 4. TUMS 6000 mg p.o. b.i.d. 5. Folic acid 1 mg daily. 6. Heparin 5000 subcu b.i.d. 7. Dilaudid 0.5 mg q.6 p.r.n. 8. Levaquin 500 mg every 24 hours. 9. Ativan CIWA protocol. 10. Lorcet 25 mg p.o. daily. 11. Magnesium oxide 400 mg daily. 12. Zofran 4 mg IV q.6 p.r.n. 13. Protonix 40 mg IV b.i.d. 14. Vitamin B1. PHYSICAL EXAMINATION: GENERAL: At this time the patient is alert, oriented x3. VITAL SIGNS: Pulse 78, blood pressure is 115/80, respirations 20, temperature 97.8, pulse ox 97% on room air. HEENT: Conjunctivae normal. NECK: No JVD. CARDIOVASCULAR: S1 and S2 muffled. LUNGS: Breath sounds are diminished in the bases. Scattered rhonchi and crackles. ABDOMEN: Soft, nontender, no masses palpable. NERVOUS SYSTEM: No focal deficits. LABS: WBC 4.5, hemoglobin is 13, creatinine 0.64, calcium 7.9, magnesium is 1.5, total bilirubin is 1.8. AST is 241. AST is 269. Influenza is negative. Serum alcohol less than 10. ASSESSMENT: 1. Fever, vomiting, abdominal discomfort, possible alcoholic gastritis. 2. Alcoholic hepatitis. 3. Early delirium tremens. 4. Severe hypomagnesemia secondary to alcohol and vomiting. 5. Cough, possibly aspiration and acute purulent tracheobronchitis. 6. History of EtOH. 7. Gastroesophageal reflux disease. 8. Hypertension. 9. History of degenerative joint disease. 10. History of seizure disorder. 11. History of sleep apnea. 12. History of obesity with body mass index of 41.7. 13. History of EtOH withdrawal and delirium tremens. 14. History of spinal stenosis and degenerative joint disease. 15. History of herniated disk and degenerative joint disease. 16. History of anxiety, depression, not otherwise specified. 17. FULL CODE. RECOMMENDATIONS: Recommend to continue current medications and symptomatic treatment. Continue with Ativan CIWA protocol. Monitor labs closely. Supplement magnesium. IV fluids. Multivitamins. Guarded prognosis because of multiple complex medical issues. Further recommendations to follow.
[2016-09-16] MEDS: LEVOFLOXACIN 500MG-D5W PMX 500 MG in DEXTROSE/WATER 1 100ML.BAG IVPB SCH (19:10)
[2016-09-17] MEDS: HYDROmorphone 1 MG/ML 1 ML SYRINGE IVP PRN ×2 (02:07→08:02)
[2016-09-17] MEDS: ONDANSETRON 4 MG/2 ML VIAL IVP PRN ×3 (02:08→14:07)
[2016-09-17] MEDS: LORazepam 2 MG/ML SYRINGE IV PRN ×5 (02:10→13:31)
[2016-09-17] MEDS: SODIUM CHLORIDE 0.9% 1,000 ML with POTASSIUM CHLORIDE 20 MEQ, MVI, ADULT NO.4 WITH VIT ... IV SCH ×5 (02:11)
[2016-09-17] MEDS ORDERED: PANTOPRAZOLE 40 MG TABLET PO SCH (07:30)
[2016-09-17 07:31] VITALS: BP 132/72; PULSE 73; RESP 22; TEMP 97.9
[2016-09-17] MEDS: ALPRAZolam 0.5 MG TAB PO SCH (08:01)
[2016-09-17] MEDS: HEPARIN SODIUM,PORCINE 5,000 UNIT/ML 1 ML VIAL SQ SCH (08:01)
[2016-09-17] MEDS: CALCIUM CARBONATE 500 MG CHEWABLE PO SCH (08:03)
[2016-09-17] MEDS: LOSARTAN 25 MG TAB PO SCH (08:03)
[2016-09-17] MEDS: ATENOLOL 50 MG TAB PO SCH (08:03)
[2016-09-17] MEDS: MAGNESIUM OXIDE 400 MG TAB PO SCH (08:04)
[2016-09-17] MEDS: IPRATROPIUM-ALBUTEROL 3 ML NEB INHALATION SCH ×3 (09:31→15:12)
[2016-09-17 09:32] LABS: AST 187 U/L (17-59); Alkaline Phosphatase 56 U/L (38-126); Anion Gap 10 mmol/L; Blood Urea Nitrogen 9 mg/dL (9-20); Calcium 8.3 mg/dL (8.4-10.2); Carbon Dioxide 28 mmol/L (22-30); Chloride 101 mmol/L (98-107); Glucose 102 mg/dL (74-99); Magnesium 1.7 mg/dL (1.6-2.3); Non-African American GFR(MDRD) >60 (>60 ml/min/1.73 sqM); Potassium 4.6 mmol/L (3.5-5.1); Sodium 139 mmol/L (137-145); Total Bilirubin 1.5 mg/dL (0.2-1.3); Total Protein 6.5 g/dL (6.3-8.2)
[2016-09-17 09:34] LABS: ALT 135 U/L (21-72)
[2016-09-17] MEDS: FOLIC ACID 1 MG TAB PO SCH (11:05)
[2016-09-17] MEDS: THIAMINE 100 MG TAB PO SCH (11:05)
[2016-09-17] MEDS: MAGNESIUM SULFATE-D5W PMX 1 GM in DEXTROSE/WATER 1 100ML.BAG IVPB SCH ×2 (11:31→12:44)
--- NOTE | 2016-09-17 12:18 | XR ---
EXAMINATION TYPE: XR chest 2V DATE OF EXAM: 09/17/2016 12:13 PM COMPARISON: 09/15/2016 TECHNIQUE: PA and lateral views submitted. HISTORY: Cough FINDINGS: The lungs are clear and there is no pneumothorax, pleural effusion, or focal pneumonia. Stable pleu ral-based thickening. Density along the right paratracheal and may be related to calcified lymph node is stable. Hypertrophic spur another possibility. IMPRESSION: 1. No acute process.
[2016-09-17 14:32] LABS: CH 31.6; CHCM 34.8; HCT 38.2 % (39.0-53.0); HDW 2.81; HGB 13.2 gm/dL (13.0-17.5); MCH 31.5 pg (25.0-35.0); MCHC 34.6 g/dL (31.0-37.0); Mean Platelet Volume 7.7; RDW 13.8 % (11.5-15.5)
[2016-09-17] MEDS ORDERED: LEVOFLOXACIN 500 MG TAB PO SCH (18:00)
--- NOTE | 2016-09-18 15:45 | DS ---
DATE OF ADMISSION: 09/15/2016 DATE OF DISCHARGE: 09/17/2016 FINAL DIAGNOSES: 1. Fever, vomiting, and abdominal discomfort, possibly alcoholic gastritis. 2. Alcoholic hepatitis. 3. Early delirium tremens. 4. Severe hypomagnesemia secondary to alcohol and vomiting. 5. Cough possibly aspiration and acute purulent tracheobronchitis. 6. History of ETOH. No evidence of pneumonia. 7. Gastroesophageal reflux disease. 8. Hypertension. 9. History of degenerative joint disease . 10. Seizure disorder. 11. History of sleep apnea. 12. History of obesity body mass index 41.7. 13. History ETOH and delirium tremens. 14. History of spinal stenosis and degenerative joint disease. 15. History of any herniated disc and degenerative joint disease. 16. History of anxiety/depression, not otherwise specified. 17. FULL CODE. DISCHARGE DISPOSITION: The patient will be discharged in stable condition with guarded prognosis. HISTORY OF PRESENT ILLNESS: This 41-year-old gentleman with a past medical history of multiple medical problems was admitted with alcohol, vomiting and gastritis and hepatitis. Patient treated symptomatically. The patient improved significantly. Otherwise chest x-ray within normal limits. The patient is able to keep food p.o. and the patient will be discharged in stable condition with the following advice and medications. On exam, vitals are stable. CARDIOVASCULAR SYSTEM: S1, S2 muffled. RESPIRATORY: No cough. Clear to auscultation. Abdomen: Soft, nontender. No mass palpable. DISCHARGE ADVICE AND MEDICATIONS: 1. Diet is cardiac. 2. Activity limited until follow up. 3. Follow-up with Dr. Bynum in 2 to 3 days. 4. Otherwise, to attend alcoholic rehab as recommended. 5. Medications albuterol 2 puffs q.i.d. and p.r.n. 6. Atenolol 50 mg p.o. daily. 7. TUMS 1000 mg p.o. b.i.d. 8. Folic acid 1 mg daily. 9. Ativan 1 mg p.o. t.i.d. p.r.n. 10. Levaquin 500 mg p.o. daily for 5 days. 11. Cozaar 25 mg p.o. daily. 12. Magnesium oxide 400 mg p.o. daily. 13. Multivitamin 1 p.o. daily. 14. Omeprazole 20 mg daily. 15. Thiamine 100 mg daily. 16. No ETOH.
== END 2016-09-17 15:15 | disposition home or self-care (01) | DRG 391 ==
LOC: EC 11:18 → 4MS4W 14:09
PROVIDERS: ADMIT Hospitalist; ATTEND Hospitalist
DX: K29.20 Alcoholic gastritis without bleeding (principal); J69.0 Pneumonitis due to inhalation of food and vomit; F10.231 Alcohol dependence with withdrawal delirium; K70.10 Alcoholic hepatitis without ascites; Z68.41 Body mass index [BMI] 40.0-44.9, adult; E83.42 Hypomagnesemia; E86.0 Dehydration; G40.909 Epilepsy, unspecified, not intractable, without status epilepticus; I10 Essential (primary) hypertension; G47.30 Sleep apnea, unspecified; K21.9 Gastro-esophageal reflux disease without esophagitis; Z79.899 Other long term (current) drug therapy; Z82.0 Family history of epilepsy and other diseases of the nervous system; Z82.49 Family history of ischemic heart disease and other diseases of the circulatory system; M48.00 Spinal stenosis, site unspecified; M19.90 Unspecified osteoarthritis, unspecified site; E66.9 Obesity, unspecified; Z88.1 Allergy status to other antibiotic agents; Z88.8 Allergy status to other drugs, medicaments and biological substances; Z71.41 Alcohol abuse counseling and surveillance of alcoholic; F41.9 Anxiety disorder, unspecified; F32.9 Major depressive disorder, single episode, unspecified
CPT/HCPCS: 36415; 71020; 80053; 80320; 81003; 82550; 82553; 83605; 83735; 84100; 84484; 85025; 85027; 85610; 85730; 87040; 87086; 87502; 93005; 94640; 96361; 96365; 96375; 99285

== ENCOUNTER 2016-12-28 05:16 | Inpatient (IN) | payer OTHER ==
[2016-12-28] MEDS ORDERED: SODIUM CHLORIDE 0.9% 1,000 ML IV ONE (06:38)
[2016-12-28] MEDS ORDERED: LORazepam 2 MG/ML SYRINGE IV STA (06:38)
--- NOTE | 2016-12-28 06:45 | ED ---
Psych HPI - General Chief Complaint: Psychiatric Symptoms Stated Complaint: ETOH, vomiting Time Seen by Provider: 12/28/16 05:24 Source: patient, EMS Mode of arrival: EMS - History of Present Illness MD Complaint: feels depressed, other (Anxiety) -: week(s) Associated Psychiatric Symptoms: depression, suicidal ideation Quality: getting worse Improves With: none Worsens With: none Context: recent alcohol abuse - Related Data Home Medications Medication Instructions Recorded Confirmed Albuterol Inhaler [Ventolin Hfa 2 puff INHALATION RT-Q8H PRN 07/09/16 09/15/16 Inhaler] Previous Rx's Medication Instructions Recorded Atenolol 50 mg PO DAILY #0 09/08/16 Calcium Carbonate [Tums] 1,000 mg PO BID 30 Days 09/08/16 Losartan [Cozaar] 25 mg PO DAILY #30 tab 09/08/16 Magnesium Oxide [Mag-Ox] 400 mg PO DAILY #10 tab 09/08/16 Omeprazole 20 mg PO LENARD-KWASIKFSRuddy #30 capsule. 09/08/16 Folic Acid 1 mg PO DAILY@1200 #30 tab 09/17/16 LORazepam [Ativan] 1 mg PO TID PRN #20 tab 09/17/16 Levofloxacin [Levaquin] 500 mg PO Q24H #5 tab 09/17/16 Multivitamins, Thera [Multivitamin 1 tab PO DAILY #30 tablet 09/17/16 (formulary)] Thiamine [Vitamin B-1] 100 mg PO BID@1200,1700 #30 tab 09/17/16 Allergies Allergy/AdvReac Type Severity Reaction Status Date / Time Cephalosporins Allergy Severe Anaphylaxis Verified 12/28/16 05:26 diphenhydramine HCl Allergy Severe Anaphylaxis Verified 12/28/16 05:26 [From Benadryl] divalproex sodium Allergy Severe Anaphylaxis Verified 12/28/16 05:26 [From Depakote] ceftriaxone [From Rocephin] Allergy Unknown Verified 12/28/16 05:26 cephalexin [From Keflex] Allergy Unknown Verified 12/28/16 05:26 lisinopril Allergy Unknown Verified 12/28/16 05:26 Review of Systems ROS Statement: Those systems with pertinent positive or pertinent negative responses have been documented in the HPI. ROS Other: All systems not noted in ROS Statement are negative. Respiratory: Denies: cough, dyspnea Cardiovascular: Denies: chest pain, palpitations, syncope Gastrointestinal: Reports: nausea, vomiting. Denies: abdominal pain Musculoskeletal: Denies: back pain Psychiatric: Reports: anxiety, depression Past Medical History Past Medical History: GERD/Reflux, Hypertension, Osteoarthritis (OA), Seizure Disorder, Sleep Apnea/CPAP/BIPAP Additional Past Medical History / Comment(s): Pt recently admitted to [facility] with intractable nausea/vomiting/abdominal pain 2ndary to alcoholic gastritis. Other hx: Alcoholism, ETOH withdrawals, mild alcohol hepatitis, had episode of "fainting" 1 yrs ago and told he had a seizurepossible alcoholic seizures/blackouts, bilateral varicose veins, spinal stenosis with surgery, herniated disc, MILIND no CPAP, hemorrhoids. History of Any Multi-Drug Resistant Organisms: None Reported Past Surgical History: Appendectomy, Tonsillectomy Additional Past Surgical History / Comment(s): 09-20-15 LAMINECTOMY,bilateral DISCETOMY L5-S1. Past Anesthesia/Blood Transfusion Reactions: Motion Sickness Past Psychological History: Anxiety, Depression Smoking Status: Never smoker Past Alcohol Use History: Abuse, Daily, Heavy Past Drug Use History: None Reported - Past Family History Father Family Medical History: Cancer, Dementia Additional Family Medical History / Comment(s): melanoma, parkinsons Mother Family Medical History: Hypertension, Musculoskeletal Disorder, Neurologic Disorder, Osteoarthritis (OA) Additional Family Medical History / Comment(s): Recently . Had some motor neuron disease General Exam Limitations: no limitations General appearance: alert, in no apparent distress, anxious Head exam: Present: atraumatic, normocephalic Eye exam: Present: normal appearance. Absent: scleral icterus, conjunctival injection ENT exam: Present: normal oropharynx Neck exam: Present: normal inspection, full ROM Respiratory exam: Present: normal lung sounds bilaterally. Absent: respiratory distress, wheezes, rales, rhonchi, stridor Cardiovascular Exam: Present: regular rate, normal rhythm, normal heart sounds. Absent: systolic murmur, diastolic murmur, rubs, gallop GI/Abdominal exam: Present: soft. Absent: tenderness, guarding, rebound, mass Extremities exam: Present: normal inspection, normal capillary refill. Absent: pedal edema, calf tenderness Back exam: Present: normal inspection. Absent: CVA tenderness (R), CVA tenderness (L) Neurological exam: Present: alert Psychiatric exam: Present: depressed, anxious, suicidal ideation. Absent: agitated, flat affect, homicidal ideation Skin exam: Present: warm, dry, intact, normal color. Absent: rash Course Vital Signs 12/28/16 12/28/16 05:20 06:38 Pulse Rate 115 H 115 H Respiratory 20 20 Rate Blood Pressure 159/94 165/86 O2 Sat by Pulse 96 96 Oximetry Medical Decision Making - Lab Data Result diagrams: 12/28/16 06:55 Lab Results 12/28/16 Range/Units 06:55 WBC 4.8 (3.8-10.6) k/uL RBC 4.40 (4.30-5.90) m/uL Hgb 13.9 (13.0-17.5) gm/dL Hct 40.3 (39.0-53.0) % MCV 91.6 (80.0-100.0) fL MCH 31.7 (25.0-35.0) pg MCHC 34.6 (31.0-37.0) g/dL RDW 16.3 H (11.5-15.5) % Plt Count 143 L (150-450) k/uL Neutrophils % 73 % Lymphocytes % 20 % Monocytes % 5 % Eosinophils % 0 % Basophils % 0 % Neutrophils # 3.5 (1.3-7.7) k/uL Lymphocytes # 1.0 (1.0-4.8) k/uL Monocytes # 0.2 (0-1.0) k/uL Eosinophils # 0.0 (0-0.7) k/uL Basophils # 0.0 (0-0.2) k/uL Anisocytosis Slight Disposition Clinical Impression: Suicidal ideation, Depression, Alcohol addiction Disposition: ADMITTED IP TO THIS HOSP Condition: Fair Referrals: Veena Bynum DO [Primary Care Provider] - 1-2 days
[2016-12-28 07:07] LABS: Anisocytosis Slight; Basophils % (A) 0 %; CH 31.6; CHCM 34.6; Eosinophils % (A) 0 %; HCT 40.3 % (39.0-53.0); HDW 2.18; HGB 13.9 gm/dL (13.0-17.5); Luc # (Auto) 0.07; Luc % (Auto) 2; Lymphocytes % (A) 20 %; MCH 31.7 pg (25.0-35.0); MCHC 34.6 g/dL (31.0-37.0); MCV 91.6 fL (80.0-100.0); Mean Platelet Volume 8.1; Monocytes # (A) 0.2 k/uL (0-1.0); Monocytes % (A) 5 %; Neutrophils # (A) 3.5 k/uL (1.3-7.7); Neutrophils % (A) 73 %; RDW 16.3 % (11.5-15.5); WBC 4.8 k/uL (3.8-10.6); WBC (Perox) 4.66
[2016-12-28 07:16] LABS: Anion Gap 27 mmol/L; Blood Urea Nitrogen 6 mg/dL (9-20); Carbon Dioxide 20 mmol/L (22-30); Chloride 87 mmol/L (98-107); Glucose 95 mg/dL (74-99); Non-African American GFR(MDRD) >60 (>60 ml/min/1.73 sqM); Sodium 134 mmol/L (137-145)
[2016-12-28] MEDS ORDERED: THIAMINE 100 MG/ML 2 ML VIAL IM STA (07:18)
[2016-12-28] MEDS ORDERED: NALOXONE 0.4 MG/ML 1 ML VIAL IV PRN (07:19)
[2016-12-28] MEDS ORDERED: ALBUTEROL NEBULIZED 2.5 MG/3 ML INHALATION PRN (07:21)
[2016-12-28 07:24] LABS: Magnesium 0.5 mg/dL (1.6-2.3)
[2016-12-28] MEDS: MAGNESIUM SULFATE-D5W PMX 1 GM in DEXTROSE/WATER 1 100ML.BAG IVPB SCH ×6 (08:03→19:15)
[2016-12-28] MEDS ORDERED: FAMOTIDINE 20 MG TAB PO SCH (09:00)
[2016-12-28] MEDS: LORazepam 2 MG/ML SYRINGE IV PRN ×8 (09:26→23:24)
[2016-12-28] MEDS: CALCIUM CARBONATE 500 MG CHEWABLE PO SCH ×3 (09:34→17:28)
[2016-12-28] MEDS ORDERED: MORPHINE SULFATE 4 MG/ML SYRINGE IVP PRN (10:42)
[2016-12-28 10:53] VITALS: BMI 37.5
[2016-12-28] MEDS: ONDANSETRON 4 MG/2 ML VIAL IVP PRN ×3 (10:55→23:04)
[2016-12-28] MEDS: ATENOLOL 50 MG TAB PO SCH (11:07)
[2016-12-28] MEDS: LOSARTAN 25 MG TAB PO SCH (11:07)
[2016-12-28 12:21] LABS: Anisocytosis Slight; Basophils % (A) 0 %; CH 31.6; Eosinophils % (A) 0 %; HDW 2.09; HGB 12.8 gm/dL (13.0-17.5); Luc # (Auto) 0.08; Luc % (Auto) 1; Lymphocytes # (A) 0.9 k/uL (1.0-4.8); Lymphocytes % (A) 14 %; MCH 31.4 pg (25.0-35.0); MCHC 33.7 g/dL (31.0-37.0); MCV 93.2 fL (80.0-100.0); Mean Platelet Volume 7.5; Monocytes # (A) 0.3 k/uL (0-1.0); Monocytes % (A) 4 %; Neutrophils # (A) 5.2 k/uL (1.3-7.7); Neutrophils % (A) 80 %; RBC 4.08 m/uL (4.30-5.90); RDW 16.6 % (11.5-15.5); WBC 6.5 k/uL (3.8-10.6); WBC (Perox) 6.49
[2016-12-28 12:36] LABS: ALT 135 U/L (21-72); AST 448 U/L (17-59); Alkaline Phosphatase 95 U/L (38-126); Anion Gap 24 mmol/L; Blood Urea Nitrogen 6 mg/dL (9-20); Calcium 6.7 mg/dL (8.4-10.2); Carbon Dioxide 20 mmol/L (22-30); Chloride 89 mmol/L (98-107); Glucose 95 mg/dL (74-99); Magnesium 1.1 mg/dL (1.6-2.3); Non-African American GFR(MDRD) >60 (>60 ml/min/1.73 sqM); Potassium 3.8 mmol/L (3.5-5.1); Sodium 133 mmol/L (137-145); Total Bilirubin 2.4 mg/dL (0.2-1.3)
[2016-12-28 12:44] LABS: Total Protein 6.9 g/dL (6.3-8.2)
[2016-12-28] MEDS: PANTOPRAZOLE 40 MG/10 ML VIAL IVP SCH ×2 (13:08→20:27)
[2016-12-28] MEDS: MULTIVITAMINS, THERA 1 EACH TAB PO SCH (13:08)
[2016-12-28] MEDS: THIAMINE 100 MG TAB PO SCH ×2 (13:08→17:17)
[2016-12-28] MEDS: MAGNESIUM OXIDE 400 MG TAB PO SCH (13:08)
--- NOTE | 2016-12-28 14:54 | P.HPIM ---
History of Present Illness 41-year-old apparently came in depressed and suicidal. Patient to order was on alcohol. Patient is an alcoholic quit all and the labs again about 2 weeks ago since then patient has been drinking quite a bit every single day. Patient is presently having withdraws his company of epigastric abdominal burning sensation along with severe nausea. Patient was started on Protonix Zofran. Patient denied any fever or chills, cough runny nose. Patient is tremulous exam. Patient denied any suicidal ideation to me patient states he is severely depressed the patient has a one-on-one sitter and a psychiatric consult. Review of Systems REVIEW OF SYSTEMS: CONSTITUTIONAL: No fever, no malaise, no fatigue. HEENT: No recent visual problems or hearing problems. Denied any sore throat. CARDIOVASCULAR: No chest pain, orthopnea, PND, no palpitations, no syncope. PULMONARY: No shortness of breath, no cough, no hemoptysis. GASTROINTESTINAL: As mentioned in HPI NEUROLOGICAL: No headaches, no weakness, no numbness. HEMATOLOGICAL: Denies any bleeding or petechiae. GENITOURINARY: Denies any burning micturition, frequency, or urgency. MUSCULOSKELETAL/RHEUMATOLOGICAL: Denies any joint pain, swelling, or any muscle pain. ENDOCRINE: Denies any polyuria or polydipsia. The rest of the 14-point review of systems is negative. Past Medical History Past Medical History: GERD/Reflux, Hypertension, Osteoarthritis (OA), Seizure Disorder, Sleep Apnea/CPAP/BIPAP Additional Past Medical History / Comment(s): Other hx: Alcoholism, ETOH withdrawals, mild alcohol hepatitis, had episode of "fainting" 1 yrs ago and told he had a seizurepossible alcoholic seizures/blackouts, bilateral varicose veins, spinal stenosis with surgery, herniated disc, MILIND no CPAP, hemorrhoids. History of Any Multi-Drug Resistant Organisms: None Reported Past Surgical History: Appendectomy, Tonsillectomy Additional Past Surgical History / Comment(s): 4-16 LAMINECTOMY,bilateral DISCETOMY L5-S1. Past Anesthesia/Blood Transfusion Reactions: Motion Sickness Past Psychological History: Anxiety, Depression Additional Psychological History / Comment(s): ER nurse states patient commented about intent to harm self. Pathology Teacher has asked patient if he intends to do self harm, he currently denies. states he has no family here.Pt uses no assistive device. He drives. Pt is an alcoholic. Smoking Status: Never smoker Past Alcohol Use History: Abuse, Daily, Heavy Additional Past Alcohol Use History / Comment(s): pt states his last drink was yesterday tuesday december 27, 2016 Past Drug Use History: None Reported - Past Family History Father Family Medical History: Cancer, Dementia Additional Family Medical History / Comment(s): melanoma, parkinsons Mother Family Medical History: Hypertension, Musculoskeletal Disorder, Neurologic Disorder, Osteoarthritis (OA) Additional Family Medical History / Comment(s): Recently . Had some motor neuron disease Medications and Allergies Home Medications Medication Instructions Recorded Confirmed Type ALPRAZolam [Xanax] 1 mg PO BID PRN 12/28/16 12/28/16 History Amlodipine (Unk Dose) 1 tab PO DAILY 12/28/16 12/28/16 History Atenolol (Unk Dose) 1 tab PO DAILY 12/28/16 12/28/16 History Ergocalciferol [Vitamin D2] 50,000 unit PO Q7D 12/28/16 12/28/16 History Losartan (Unk Dose) 1 tab PO DAILY 12/28/16 12/28/16 History Omeprazole (Unk Dose) 1 tab PO DAILY 12/28/16 12/28/16 History Allergies Allergy/AdvReac Type Severity Reaction Status Date / Time Cephalosporins Allergy Severe Anaphylaxis Verified 12/28/16 08:17 diphenhydramine HCl Allergy Severe Anaphylaxis Verified 12/28/16 08:17 [From Benadryl] divalproex sodium Allergy Severe Anaphylaxis Verified 12/28/16 08:17 [From Depakote] ceftriaxone [From Rocephin] Allergy Unknown Verified 12/28/16 08:17 cephalexin [From Keflex] Allergy Unknown Verified 12/28/16 08:17 lisinopril Allergy Unknown Verified 12/28/16 08:17 Physical Exam Vitals: Vital Signs Temp Pulse Pulse Resp BP BP Pulse Ox 12/28/16 08:44 98.5 F 111 H 18 149/92 96 12/28/16 08:03 98.8 F 125 H 15 144/85 98 12/28/16 06:38 115 H 20 165/86 96 12/28/16 05:20 115 H 20 159/94 96 Intake and Output 12/27/16 12/28/16 12/28/16 22:59 06:59 14:59 Other: Weight 129.274 kg 129.274 kg Patient Weight 12/29/16 06:59 Weight 129.274 kg PHYSICAL EXAMINATION: GENERAL: The patient is alert and oriented x3, not in any acute distress. Well developed, well nourished. He does have tremor from Alkol withdrawal is in distress because of nausea. HEENT: Pupils are round and equally reacting to light. EOMI. No scleral icterus. No conjunctival pallor. Normocephalic, atraumatic. No pharyngeal erythema. No thyromegaly. CARDIOVASCULAR: S1 and S2 present. No murmurs, rubs, or gallops. PULMONARY: Chest is clear to auscultation, no wheezing or crackles. ABDOMEN: Soft, nontender, nondistended, normoactive bowel sounds. No palpable organomegaly. MUSCULOSKELETAL: No joint swelling or deformity. EXTREMITIES: No cyanosis, clubbing, or pedal edema. NEUROLOGICAL: Gross neurological examination did not reveal any focal deficits. SKIN: No rashes. Results CBC & Chem 7: 12/28/16 11:49 12/28/16 11:49 Labs: Abnormal Lab Results - Last 24 Hours (Table) 12/28/16 12/28/16 12/28/16 Range/Units 06:55 06:55 11:49 RBC (4.30-5.90) m/uL Hgb (13.0-17.5) gm/dL Hct (39.0-53.0) % RDW 16.3 H (11.5-15.5) % Plt Count 143 L (150-450) k/uL Lymphocytes # (1.0-4.8) k/uL Sodium 134 L 133 L (137-145) mmol/L Chloride 87 L 89 L (98-107) mmol/L Carbon Dioxide 20 L 20 L (22-30) mmol/L BUN 6 L 6 L (9-20) mg/dL Calcium 7.0 L 6.7 L (8.4-10.2) mg/dL Magnesium 0.5 L* 1.1 L (1.6-2.3) mg/dL Total Bilirubin 2.4 H (0.2-1.3) mg/dL AST 448 H (17-59) U/L ALT 135 H (21-72) U/L 12/28/16 Range/Units 11:49 RBC 4.08 L (4.30-5.90) m/uL Hgb 12.8 L (13.0-17.5) gm/dL Hct 38.0 L (39.0-53.0) % RDW 16.6 H (11.5-15.5) % Plt Count 118 L (150-450) k/uL Lymphocytes # 0.9 L (1.0-4.8) k/uL Sodium (137-145) mmol/L Chloride (98-107) mmol/L Carbon Dioxide (22-30) mmol/L BUN (9-20) mg/dL Calcium (8.4-10.2) mg/dL Magnesium (1.6-2.3) mg/dL Total Bilirubin (0.2-1.3) mg/dL AST (17-59) U/L ALT (21-72) U/L Thrombosis Risk Factor Assmnt - Choose All That Apply Any of the Below Risk Factors Present?: Yes Each Factor Represents 1 point: Age 41-60 years, Obesity (BMI >25) Other Risk Factors: No Other congenital or acquired thrombophilia - If yes, enter type in comment: No Thrombosis Risk Factor Assessment Total Risk Factor Score: 2 Thrombosis Risk Factor Assessment Level: Low Risk Assessment and Plan Plan: 1 abdominal pain secondary to alcoholic gastritis IV and Zofran as needed for nausea. 2 alcohol intoxication: IV fluids and thiamine multivitamin supplementation #3 acute on chronic hepatitis #4 alcohol withdrawal on patient on withdrawal protocol and when necessary Ativan. #5 hypomagnesemia and hypokalemia due to alcoholism these will be supplemented. 6 tachycardia due to withdrawal reason IV fluids and beta ian. #7 severe depression with possible suicidal ideation: Psychiatric was consulted
[2016-12-28] MEDS ORDERED: THIAMINE 100 MG TAB PO SCH (17:00)
[2016-12-28] MEDS: ACETAMINOPHEN TAB 500 MG TAB PO PRN (18:24)
[2016-12-28] MEDS ORDERED: ACETAMINOPHEN IV (For NPO) 1,000 MG in EMPTY BAG 1 BAG IVPB PRN (18:34)
[2016-12-28] MEDS: PROMETHAZINE 25 MG TAB PO PRN (20:45)
[2016-12-29] MEDS: LORazepam 2 MG/ML SYRINGE IV PRN ×9 (01:32→22:18)
[2016-12-29] MEDS: ACETAMINOPHEN TAB 500 MG TAB PO PRN ×4 (05:14→23:08)
[2016-12-29] MEDS: ONDANSETRON 4 MG/2 ML VIAL IVP PRN ×4 (05:15→23:08)
[2016-12-29] MEDS ORDERED: PANTOPRAZOLE 40 MG TABLET PO SCH (07:30)
[2016-12-29 07:33] VITALS: RESP 16
[2016-12-29 08:14] LABS: ALT 128 U/L (21-72); AST 427 U/L (17-59); Alkaline Phosphatase 80 U/L (38-126); Anion Gap 20 mmol/L; Blood Urea Nitrogen 7 mg/dL (9-20); Carbon Dioxide 23 mmol/L (22-30); Chloride 92 mmol/L (98-107); Glucose 73 mg/dL (74-99); Non-African American GFR(MDRD) >60 (>60 ml/min/1.73 sqM); Potassium 3.2 mmol/L (3.5-5.1); Sodium 135 mmol/L (137-145); Total Bilirubin 3.3 mg/dL (0.2-1.3)
--- NOTE | 2016-12-29 08:14 | CONS ---
IDENTIFYING DATA: This is a 41 year old single male patient. HISTORY OF PRESENT ILLNESS: Mr. Tolbert is admitted to the medical floor at [facility] with concerns of alcohol withdrawal. The patient states that he is an alcoholic. Per chart history, he came in depressed and suicidal. The patient states that he could not stop throwing up and called 911. The ambulance brought him to the hospital. He says that he does not want to hurt himself. He says that he is an addict. Regarding depression lately, he states that he has some depression from the drinking and disappointment of relapsing. When asked, denied any recent thoughts of suicide but he states in the ER they asked him if he thought about it and he said yes and when they asked him how he would do it, he said he would probably shoot himself. He says that he was not planning anything like that. He does deny any current thoughts of suicide and says that he feels safe. He does relay that he has guns at home. PSYCHIATRIC HISTORY: No history of inpatient psychiatric admissions. He denies history of suicide attempt. Admits to history of anxiety and a history of taking Xanax in the past. PSYCHIATRIC FAMILY HISTORY: His dad with paranoid schizophrenia and his dad's side of the family, there was some manic depression. MEDICAL HISTORY: Gastroesophageal reflux disease, hypertension, osteoarthritis , seizure disorder, obstructive sleep apnea, spinal stenosis, herniated disc, hemorrhoids. Current medications: 1. Ventolin prn. 2. Tenormin. 3. TUMS. 4. Ativan prn. 5. Cozaar. 6. Magnesium oxide. 7. Mag sulfate. 8. Morphine sulfate prn. 9. Theragran. 10. Narcan prn. 11. Zofran prn. 12. Protonix. 13. Phenergan prn. SOCIAL HISTORY: He lives by himself in a home. Not currently working. DRUG AND ALCOHOL HISTORY: He went to rehab a few months ago at [place]. He gets a ( ) shot. He was sober for a month but over the past month he has been drinking again like a fifth and one half of vodka. No other drug use. He does have desire to go to rehab again. Mental status exam: He is alert, cooperative. Pleasant overall. His affect is more blunted. He describes his mood as being in pain. He denies any current thoughts of harm to self or others. He does relay that in the emergency room he answered yes regarding thoughts of suicide and when asked how he would do that described that he said probably shoot himself. He does not show any active evidence of psychosis or current agitation. Cognitively he appears to be grossly intact. IMPRESSION: 1. Unspecific depressive disorder. 2. Alcohol use disorder. PLAN/RECOMMENDATIONS: I would recommend inpatient psychiatric stabilization after medical stabilization to stabilize his depression and continue to monitor regarding any thoughts of suicide. He did verbalize thoughts of suicide in the ER and when asked how he would do that, related that he would probably shoot himself. In terms of access to guns and safety management, this can be addressed on the inpatient psychiatric unit. Also need to look at identifying any possible support systems. Also need to look at antidepressant treatment and it does appear as though there are elevated AST and ALT at this point of time. We need to see the further medical stabilization and then can look at potential for antidepressive treatment to help with depression and anxiety. Thank you for the consult. BOLIVAR
[2016-12-29] MEDS: PANTOPRAZOLE 40 MG TABLET PO SCH ×2 (08:19→20:12)
[2016-12-29] MEDS: PROMETHAZINE 25 MG TAB PO PRN (08:19)
[2016-12-29] MEDS: LOSARTAN 25 MG TAB PO SCH (08:19)
[2016-12-29] MEDS: MAGNESIUM OXIDE 400 MG TAB PO SCH (08:19)
[2016-12-29] MEDS: ATENOLOL 50 MG TAB PO SCH (08:19)
[2016-12-29 08:20] LABS: Calcium 6.6 mg/dL (8.4-10.2)
[2016-12-29] MEDS: CALCIUM CARBONATE 500 MG CHEWABLE PO SCH ×2 (08:20→16:18)
[2016-12-29 08:25] LABS: Magnesium 0.9 mg/dL (1.6-2.3)
[2016-12-29] MEDS ORDERED: Magnesium Replacement Protocol 1 EACH MISC MISCELLANE PRN (08:40)
[2016-12-29] MEDS: MAGNESIUM SULFATE-D5W PMX 1 GM in DEXTROSE/WATER 1 100ML.BAG IVPB SCH ×4 (09:01→12:12)
[2016-12-29] MEDS ORDERED: Potassium Replacement Protocol 1 EACH MISC MISCELLANE PRN (09:09)
[2016-12-29 09:26] LABS: Total Protein 6.2 g/dL (6.3-8.2)
[2016-12-29] MEDS: POTASSIUM CHLORIDE ER 20 MEQ TAB.ER PO SCH ×2 (09:50→11:07)
[2016-12-29] MEDS: THIAMINE 100 MG TAB PO SCH ×2 (12:10→16:01)
[2016-12-29] MEDS: MULTIVITAMINS, THERA 1 EACH TAB PO SCH (12:11)
[2016-12-29] MEDS ORDERED: ATENOLOL 50 MG TAB PO STA (14:47)
--- NOTE | 2016-12-29 14:47 | P.PN ---
Subjective Patient is admitted for a alcolic gastritis, acute alcoholic Hepatitis and alcohol withdrawal and patient was evaluated by psychiatry. Patient is recovering of abdominal pain. Is undergoing severe withdrawals. Still having nausea. Denied any chest pain denies any new focal neuro deficits. Objective - Vital Signs Vital signs: Vital Signs Temp 100.1 F H 12/29/16 07:00 Pulse 120 H 12/29/16 07:00 Resp 16 12/29/16 07:00 BP 156/92 12/29/16 07:00 Pulse Ox 96 12/29/16 07:00 Intake & Output 12/28/16 12/29/16 12/29/16 18:59 06:59 18:59 Intake Total 800 Balance 800 Weight 129.274 kg Intake: Intake, IV Titration 800 Amount Magnesium Sulfate-D5w Pmx 200 1 gm In Dextrose/Water 1 100ml.bag @ 100 mls/hr IVPB Q1H PENDING SALE TO [facility] Rx#: [id number] Sodium Chloride 0.9% 1, 600 000 ml @ 999 mls/hr IV . Q1H1M ONE Rx#:[id number] Other: Voiding Method Toilet Urinal # Voids 2 # Bowel Movements 3 - Exam GENERAL: The patient is alert and oriented x3, not in any acute distress. Well developed, well nourished. He does have tremor from Alkol withdrawal is in distress because of nausea. HEENT: Pupils are round and equally reacting to light. EOMI. No scleral icterus. No conjunctival pallor. Normocephalic, atraumatic. No pharyngeal erythema. No thyromegaly. CARDIOVASCULAR: S1 and S2 present. No murmurs, rubs, or gallops. PULMONARY: Chest is clear to auscultation, no wheezing or crackles. ABDOMEN: Soft, nontender, nondistended, normoactive bowel sounds. No palpable organomegaly. MUSCULOSKELETAL: No joint swelling or deformity. EXTREMITIES: No cyanosis, clubbing, or pedal edema. NEUROLOGICAL: Gross neurological examination did not reveal any focal deficits. SKIN: No rashes. - Labs CBC & Chem 7: 12/28/16 11:49 12/29/16 07:27 Labs: Abnormal Lab Results - Last 24 Hours (Table) 12/29/16 Range/Units 07:27 Sodium 135 L (137-145) mmol/L Potassium 3.2 L (3.5-5.1) mmol/L Chloride 92 L (98-107) mmol/L BUN 7 L (9-20) mg/dL Glucose 73 L (74-99) mg/dL Calcium 6.6 L (8.4-10.2) mg/dL Magnesium 0.9 L* (1.6-2.3) mg/dL Total Bilirubin 3.3 H (0.2-1.3) mg/dL AST 427 H (17-59) U/L ALT 128 H (21-72) U/L Total Protein 6.2 L (6.3-8.2) g/dL Assessment and Plan Plan: 1 abdominal pain secondary to alcoholic gastritis IV and Zofran as needed for nausea. 2 alcohol intoxication: IV fluids and thiamine multivitamin supplementation #3 acute alcoholic hepatitis monitor liver enzymes #4 alcohol withdrawal on patient on withdrawal protocol and when necessary Ativan. #5 hypomagnesemia and hypokalemia due to alcoholism these will be supplemented. 6 tachycardia due to withdrawal reason IV fluids and beta ian. Increase the beta ian #7 severe depression with possible suicidal ideation: Psychiatric was consulted
[2016-12-29 15:18] LABS: Anisocytosis Slight; Basophils % (A) 0 %; CH 31.4; CHCM 32.8; Eosinophils % (A) 1 %; HCT 36.7 % (39.0-53.0); HDW 2.01; HGB 12.1 gm/dL (13.0-17.5); Luc # (Auto) 0.03; Luc % (Auto) 1; Lymphocytes # (A) 0.5 k/uL (1.0-4.8); Lymphocytes % (A) 12 %; MCH 31.8 pg (25.0-35.0); MCHC 33.1 g/dL (31.0-37.0); MCV 95.8 fL (80.0-100.0); Macrocytosis Slight; Mean Platelet Volume 9.3; Monocytes # (A) 0.3 k/uL (0-1.0); Monocytes % (A) 6 %; Neutrophils # (A) 3.5 k/uL (1.3-7.7); Neutrophils % (A) 81 %; RBC 3.82 m/uL (4.30-5.90); RDW 16.7 % (11.5-15.5); WBC 4.4 k/uL (3.8-10.6); WBC (Perox) 4.48
[2016-12-29 15:41] LABS: Large Platelets Present; Manual Review Performed
[2016-12-30] MEDS: LORazepam 2 MG/ML SYRINGE IV PRN ×6 (00:40→14:40)
[2016-12-30] MEDS: ACETAMINOPHEN TAB 500 MG TAB PO PRN ×2 (04:53→11:10)
[2016-12-30] MEDS: ONDANSETRON 4 MG/2 ML VIAL IVP PRN ×2 (04:53→11:10)
[2016-12-30] MEDS: MAGNESIUM OXIDE 400 MG TAB PO SCH (07:50)
[2016-12-30] MEDS: CALCIUM CARBONATE 500 MG CHEWABLE PO SCH ×2 (07:50→16:45)
[2016-12-30] MEDS: PANTOPRAZOLE 40 MG TABLET PO SCH (07:50)
[2016-12-30] MEDS: LOSARTAN 25 MG TAB PO SCH (07:50)
[2016-12-30 08:14] LABS: Anisocytosis Slight; CH 31.2; CHCM 32.6; HCT 33.8 % (39.0-53.0); HDW 2.27; HGB 11.3 gm/dL (13.0-17.5); MCH 32.1 pg (25.0-35.0); MCHC 33.4 g/dL (31.0-37.0); Mean Platelet Volume 8.6; RBC 3.52 m/uL (4.30-5.90); WBC 4.4 k/uL (3.8-10.6)
[2016-12-30 08:59] LABS: ALT 106 U/L (21-72); AST 315 U/L (17-59); Alkaline Phosphatase 70 U/L (38-126); Anion Gap 20 mmol/L; Blood Urea Nitrogen 6 mg/dL (9-20); Carbon Dioxide 19 mmol/L (22-30); Chloride 98 mmol/L (98-107); Glucose 61 mg/dL (74-99); Magnesium 1.4 mg/dL (1.6-2.3); Non-African American GFR(MDRD) >60 (>60 ml/min/1.73 sqM); Potassium 3.2 mmol/L (3.5-5.1); Sodium 137 mmol/L (137-145); Total Protein 5.9 g/dL (6.3-8.2)
[2016-12-30] MEDS ORDERED: ATENOLOL 50 MG TAB PO SCH (09:00)
[2016-12-30 09:33] LABS: Calcium 6.5 mg/dL (8.4-10.2)
[2016-12-30] MEDS ORDERED: Magnesium Replacement Protocol 1 EACH MISC MISCELLANE PRN (10:48)
[2016-12-30] MEDS ORDERED: Potassium Replacement Protocol 1 EACH MISC MISCELLANE PRN (10:50)
[2016-12-30] MEDS: MULTIVITAMINS, THERA 1 EACH TAB PO SCH (11:10)
[2016-12-30] MEDS: POTASSIUM CHLORIDE ER 20 MEQ TAB.ER PO SCH ×2 (11:11→14:40)
[2016-12-30 14:34] VITALS: BP 137/70; PULSE 76; TEMP 100.7
[2016-12-30] MEDS: THIAMINE 100 MG TAB PO SCH ×2 (14:40→16:45)
[2016-12-30] MEDS ORDERED: MAGNESIUM SULFATE-D5W PMX 1 GM in DEXTROSE/WATER 1 100ML.BAG IVPB ONE (15:54)
[2016-12-30] MEDS ORDERED: POTASSIUM CHLORIDE ER 20 MEQ TAB.ER PO STA (15:55)
--- NOTE | 2016-12-30 16:12 | P.DS ---
Providers Date of admission: 12/28/16 14:03 Expected date of discharge: 12/30/16 Attending physician: Aida Ogden Consults: 12/28/16 07:20 Consult Physician Routine Consulting Provider: Michelle Ahuja Consult Reason/Comments: Suicidal ideation Do you want consulting provider notified?: Yes Primary care physician: Veena Bynum Hospital Course: Final Diagnoses: 1 abdominal pain secondary to alcoholic gastritis 2 alcohol intoxication #3 acute alcoholic hepatitis #4 alcohol withdrawal #5 hypomagnesemia and hypokalemia due to alcoholism 6 tachycardia due to withdrawal #7 severe depression with possible suicidal ideation: #8 alcohol abuse Hospital course:Patient is admitted for a alcolic gastritis, acute alcoholic Hepatitis and alcohol withdrawal and severe depression. Treated with IV fluids , PPI,CIWA protocol. Significant clinical improvement. Evaluated by psychiatry and inpatient mental health recommended. Patient is being discharged to mental health unit in a stable condition with guarded prognosis.( Recorded temperatures not accurate, work order placed on room- as unable to control significant heat). The impression and plan of care has been dictated as directed as a scribe. : I performed a H&P examination of this patient and discussed the same with the dictator. I agree with the dictator's note. Any additional findings/opinions/ etc. will be noted. Patient Condition at Discharge: Stable Plan - Discharge Summary New Discharge Prescriptions: New Calcium Carbonate [Tums] 1,000 mg PO BID-W/MEALS Folic Acid 1 mg PO DAILY #30 tablet Losartan [Cozaar] 25 mg PO DAILY tab Magnesium Oxide [Mag-Ox] 400 mg PO DAILY tab Multivitamins, Thera [Multivitamin (formulary)] 1 each PO DAILY@1200 tab Pantoprazole [Protonix] 40 mg PO BID tab Thiamine [Vitamin B-1] 100 mg PO BID@1200,1700 tab LORazepam [Ativan] 1 mg PO Q8H PRN #20 tab PRN Reason: Anxiety Continue Ergocalciferol [Vitamin D2 (DRISDOL)] 50,000 unit PO Q7D Atenolol [Tenormin] 100 mg PO DAILY Discontinued ALPRAZolam [Xanax] 1 mg PO BID PRN PRN Reason: Anxiety Losartan/Hydrochlorothiazide [Losartan-Hctz 100-25 mg Tab] 1 tab PO DAILY Discharge Medication List Ergocalciferol [Vitamin D2 (DRISDOL)] 50,000 unit PO Q7D 12/28/16 [History] Atenolol [Tenormin] 100 mg PO DAILY 12/29/16 [History] Calcium Carbonate [Tums] 1,000 mg PO BID-W/MEALS 12/30/16 [Rx] Folic Acid 1 mg PO DAILY #30 tablet 12/30/16 [Rx] LORazepam [Ativan] 1 mg PO Q8H PRN #20 tab 12/30/16 [Rx] Losartan [Cozaar] 25 mg PO DAILY tab 12/30/16 [Rx] Magnesium Oxide [Mag-Ox] 400 mg PO DAILY tab 12/30/16 [Rx] Multivitamins, Thera [Multivitamin (formulary)] 1 each PO DAILY@1200 tab [Rx] Pantoprazole [Protonix] 40 mg PO BID tab 12/30/16 [Rx] Thiamine [Vitamin B-1] 100 mg PO BID@1200,1700 tab 12/30/16 [Rx] Follow up Appointment(s)/Referral(s): Veena Bynum DO [Primary Care Provider] - 3 Days Patient Instructions/Handouts: Abuse of Alcohol (DC) Activity/Diet/Wound Care/Special Instructions: CBC,BMP in 2 days Discharge Disposition: TRANSFER TO PSYCH HOSP/UNIT
== END 2016-12-30 18:43 | DRG 392 ==
LOC: EC 05:16 → 4MS4W 07:19 → OBSVTOIN 14:03
PROVIDERS: ADMIT Hospitalist; ATTEND Hospitalist
DX: K29.20 Alcoholic gastritis without bleeding (principal); R45.851 Suicidal ideations; F10.239 Alcohol dependence with withdrawal, unspecified; E83.42 Hypomagnesemia; K70.10 Alcoholic hepatitis without ascites; I10 Essential (primary) hypertension; E87.6 Hypokalemia; F32.9 Major depressive disorder, single episode, unspecified; F41.9 Anxiety disorder, unspecified; G40.909 Epilepsy, unspecified, not intractable, without status epilepticus; G47.33 Obstructive sleep apnea (adult) (pediatric); K21.9 Gastro-esophageal reflux disease without esophagitis; K64.9 Unspecified hemorrhoids; M19.90 Unspecified osteoarthritis, unspecified site; F10.229 Alcohol dependence with intoxication, unspecified; I83.90 Asymptomatic varicose veins of unspecified lower extremity; Z79.899 Other long term (current) drug therapy; Z88.1 Allergy status to other antibiotic agents; Z88.8 Allergy status to other drugs, medicaments and biological substances; Z82.49 Family history of ischemic heart disease and other diseases of the circulatory system
CPT/HCPCS: 36415; 80048; 80053; 82075; 83735; 85025; 85027

== ENCOUNTER 2016-12-30 15:55 | Inpatient (IN) | payer MEDICAID ==
[2016-12-30] MEDS ORDERED: MAG HYDROX/AL HYDROX/SIMETH 30 ML CUP PO PRN (17:45)
[2016-12-30] MEDS ORDERED: MAGNESIUM HYDROXIDE 2,400 MG/10 ML CUP PO PRN (17:45)
[2016-12-30] MEDS: LORazepam 1 MG TAB PO SCH (21:05)
[2016-12-30] MEDS: LOPERAMIDE 2 MG CAP PO PRN (21:05)
[2016-12-30] MEDS: ONDANSETRON 4 MG TAB PO PRN (21:47)
[2016-12-31] MEDS ORDERED: LORazepam 1 MG TAB PO STA ×2 (00:49→12:15)
[2016-12-31] MEDS ORDERED: LORazepam 2 MG/ML SYRINGE IM STA (00:53)
[2016-12-31] MEDS ORDERED: LORazepam 2 MG/ML SYRINGE IM PRN (00:53)
[2016-12-31] MEDS: LOPERAMIDE 2 MG CAP PO PRN ×4 (01:10→20:59)
[2016-12-31] MEDS: LORazepam 1 MG TAB PO PRN ×5 (06:40→20:59)
[2016-12-31] MEDS: ONDANSETRON 4 MG TAB PO PRN ×2 (07:42→15:59)
--- NOTE | 2016-12-31 09:22 | P.HP ---
Psychiatric H&P - . H&P Date: 12/31/16 History & Physical: Allergies Allergy/AdvReac Type Severity Reaction Status Date / Time Cephalosporins Allergy Severe Anaphylaxis Verified 12/30/16 18:48 diphenhydramine HCl Allergy Severe Anaphylaxis Verified 12/30/16 18:48 From Benadryl divalproex sodium Allergy Severe Anaphylaxis Verified 12/30/16 18:48 From Depakote ceftriaxone From Rocephin Allergy Unknown Verified 12/30/16 18:48 cephalexin From Keflex Allergy Unknown Verified 12/30/16 18:48 lisinopril Allergy Unknown Verified 12/30/16 18:48 Vital Signs Temp 98.7 F 12/31/16 00:50 Pulse 92 12/31/16 00:50 Resp 18 12/31/16 00:50 BP 135/83 12/31/16 07:00 Pulse Ox 99 12/30/16 19:07 Intake & Output 12/30/16 12/31/16 12/31/16 18:59 06:59 18:59 Weight 129.27 kg 136.2 kg 12/31/16 08:35 DATE OF SERVICE: 12/31/2016 IDENTIFYING DATA: This patient is a 41-year-old single male who was admitted to the mental health unit after admission to medical bed for gastritis and alcohol withdrawal.. HISTORY OF PRESENT ILLNESS: The patient presents with history of drinking too much, coming to the emergency room complaining about being ill and unable to stop vomiting. Patient was evaluated on the medical floor by Dr. Villarreal patient told him that he is an alcoholic, hat he could not stop throwing up and he called 911 and the ambulance brought him to the hospital. He told Dr. Villarreal that he does not want to hurt himself he reports that he was depressed from drinking and relapsing. Denies any thoughts of suicide but he states in the ER they asked him if he thought about it and he said yes and if he would do it he would shoot himself. He denies that he was thinking of suicide but says when they ask you to think about it he told them that he could use a gun and shoot himself, but states he never had any intention nor was he having thoughts of suicide until he was asked. Patient does report that he has anxiety and that his primary care doctor gives some Xanax he reports that he drinks when he takes his Xanax but claims he is not using it "recreational". He states that he's had a lot of things going on in his life that he thinks maybe he has not grieved about including his girlfriend of 20 years who 2 years ago, he lost his job a year ago and now his father is in a [facility]/ institution for end-stage Parkinson's. He states he doesn't know what's going to happen to his father's house where he lives. He has no contact with his older brother and sister, they have no relationship. Today patient reports he doesn't feel good physically that he has diarrhea area. Patient has guns at home PAST PSYCHIATRIC HISTORY: Patient denies past history of psychiatric admissions or history of suicide attempts. Reports he does have anxiety and that he has a history of taking Xanax. PAST MEDICAL HISTORY: GERD, hypertension, osteoarthritis, spinal stenosis, herniated disc. Patient denies history of seizure disorder ALLERGIES: Cephalosporin, diphenhydramine, divalproex, cephalexin, lisinopril, ceftriaxone. Patient states that he took his father's divalproex in order to sleep and he had a reaction to it with his lip swelling up CHEMICAL DEPENDENCY HISTORY: Patient reports that he went to rehab a few months ago at [facility]. He got one injection of a Vivatral, sober for a month but over the past month he has been drinking again about a fifth and one half of vodka denies other drug use he does have desire to go to rehab again. He could not explain why he did not get another injection to help with alcohol abstinence states "I guess I was lazy" FAMILY PSYCHIATRIC HISTORY: Patient reports that his father had paranoid schizophrenia and there was some bipolar on his father's side. FAMILY CHEMICAL DEPENDENCY HISTORY: Reports that his grandfather was an alcoholic. LEGAL HISTORY: DUI 10 years ago, has his license. 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 Graduated from . Never no children. GF 2 years ago, they were together for 20 years Likes to take care of lawn. MENTAL STATUS EXAM: Patient alert and oriented 3, good eye contact, fair groomed in hospital attire. Speech normal volume, decreased rate and production. Coherent, logical and goal directed thought process, concrete. No GIDEON, no FOI. No TB/TW/TI Denied auditory and visual hallucinations. Denied paranoid ideation, delusions or IOR. Memory grossly intact Cognition average Recalled 3/3 at 0 minutes, and 3/3 at 5 minutes; Serial 7's 93-7=85-7=78-7=71-7= X; world, dlor, dlrow Mood dysphoric, affect constricted, congruent with mood. Denies suicidal ideation, denies homicidal ideation. Insight limited; Judgment grossly intact for treatment purposes . STRENGTHS: Kindness. WEAKNESSES: Addiction, noncompliance. IMPRESSIONS: 41-year-old single male admitted to the hospital for acute gastritis, alcohol withdrawal. He was on medical floor for approximately 4 days before being transferred to [facility]. Patient long history of alcohol use, calls himself an alcoholic. Had one month where he was sober he was taking ReVia and gabapentin, but did not continue after care and started drinking a month ago. Patient reports depression however he has not had a period of not drinking and reporting depression. He reports anxiety which is more than likely due to either his blood alcohol level going lower or due to withdrawal. Patient has no past history of psychiatric problems rising to the point of needing treatment he receives his Xanax from his primary care doctor. Patient had one rehab. No psychosis, no history of payam/hypomania. Has a genetic history of bipolar/ schizophrenia in father and other family members on father's side. No suicidal ideation. PLAN: Continue inpatient psychiatric admission, for safety, clarification of diagnosis, and treatment. Suicide precautions and every 15 minute checks Begin gabapentin. Begin ReVia. Trazodone for sleep Vistaril for anxiety Social work to help with referral to rehab. DC or taper benzodiazepine class not appropriate for him 2-3 day LOS. 12/31/16 09:26
[2016-12-31] MEDS: LOSARTAN 25 MG TAB PO SCH (09:23)
[2016-12-31] MEDS: ERGOCALCIFEROL 50,000 UNIT CAP PO SCH (09:23)
[2016-12-31] MEDS: ATENOLOL 50 MG TAB PO SCH (09:23)
[2016-12-31] MEDS: LORazepam 1 MG TAB PO SCH (09:24)
[2016-12-31 09:42] LABS: Anisocytosis Slight; Basophils % (A) 1 %; CH 31.3; Eosinophils # (A) 0.1 k/uL (0-0.7); Eosinophils % (A) 1 %; HCT 39.2 % (39.0-53.0); HDW 2.32; HGB 12.5 gm/dL (13.0-17.5); Luc # (Auto) 0.17; Luc % (Auto) 3; Lymphocytes # (A) 1.3 k/uL (1.0-4.8); Lymphocytes % (A) 24 %; MCH 31.1 pg (25.0-35.0); MCHC 31.8 g/dL (31.0-37.0); MCV 97.9 fL (80.0-100.0); Macrocytosis Slight; Mean Platelet Volume 8.8; Monocytes # (A) 0.4 k/uL (0-1.0); Monocytes % (A) 7 %; Neutrophils # (A) 3.6 k/uL (1.3-7.7); Neutrophils % (A) 64 %; RDW 16.2 % (11.5-15.5); WBC 5.6 k/uL (3.8-10.6); WBC (Perox) 5.28
[2016-12-31] MEDS: clonazePAM 1 MG TAB PO SCH ×2 (10:13→20:59)
[2016-12-31] MEDS: GABAPENTIN 100 MG CAP PO SCH ×3 (10:13→20:59)
[2016-12-31 10:18] LABS: ALT 124 U/L (21-72); AST 300 U/L (17-59); Alkaline Phosphatase 84 U/L (38-126); Anion Gap 23 mmol/L; Blood Urea Nitrogen 5 mg/dL (9-20); Calcium 7.6 mg/dL (8.4-10.2); Carbon Dioxide 21 mmol/L (22-30); Chloride 96 mmol/L (98-107); Glucose 67 mg/dL (74-99); Non-African American GFR(MDRD) >60 (>60 ml/min/1.73 sqM); Sodium 140 mmol/L (137-145); Total Bilirubin 1.8 mg/dL (0.2-1.3); Total Protein 7.1 g/dL (6.3-8.2)
[2016-12-31] MEDS: THIAMINE 100 MG TAB PO SCH (12:08)
[2016-12-31] MEDS: ACETAMINOPHEN TAB 325 MG TAB PO PRN ×2 (12:10→15:54)
[2016-12-31] MEDS: BENZOCAINE 20% HEMORRHOIDAL OINT 28GM RECTAL SCH ×2 (14:29→20:59)
[2016-12-31] MEDS: hydrOXYzine PAMOATE 25 MG CAP PO PRN (15:49)
--- NOTE | 2016-12-31 17:29 | P.CONS ---
History of Present Illness - Reason for Consult gastritis, medical clearance, diarrhea - History of Present Illness 1-year-old admitted to psychiatric floor because of severe depression and suicidal ideation. Patient was admitted to my service and discharged from my service yesterday. After he was treated for alcoholic gastritis, hepatitis, alcohol withdrawal. Patient is still complaining of some shaking, patient is appropriately on Ativan as needed basis and patient is also having diarrhea. C. diff testing will be doneand diarrhea secondary to alcohol withdrawal. Patient's abdominal pain improved and patient liver function continues to improve Review of Systems REVIEW OF SYSTEMS: CONSTITUTIONAL: No fever, no malaise, no fatigue. HEENT: No recent visual problems or hearing problems. Denied any sore throat. CARDIOVASCULAR: No chest pain, orthopnea, PND, no palpitations, no syncope. PULMONARY: No shortness of breath, no cough, no hemoptysis. GASTROINTESTINAL:as mentioned in HPI NEUROLOGICAL: No headaches, no weakness, no numbness. HEMATOLOGICAL: Denies any bleeding or petechiae. GENITOURINARY: Denies any burning micturition, frequency, or urgency. MUSCULOSKELETAL/RHEUMATOLOGICAL: Denies any joint pain, swelling, or any muscle pain. ENDOCRINE: Denies any polyuria or polydipsia. The rest of the 14-point review of systems is negative. Past Medical History Past Medical History: GERD/Reflux, Hypertension, Osteoarthritis (OA), Seizure Disorder, Sleep Apnea/CPAP/BIPAP Additional Past Medical History / Comment(s): Other hx: Alcoholism, ETOH withdrawals, mild alcohol hepatitis, had episode of "fainting" 1 yrs ago and told he had a seizurepossible alcoholic seizures/blackouts, bilateral varicose veins, spinal stenosis with surgery, herniated disc, MILIND no CPAP, hemorrhoids. History of Any Multi-Drug Resistant Organisms: None Reported Past Surgical History: Appendectomy, Tonsillectomy Additional Past Surgical History / Comment(s): 4-16 LAMINECTOMY,bilateral DISCETOMY L5-S1. Past Anesthesia/Blood Transfusion Reactions: Motion Sickness Past Psychological History: Anxiety, Depression Additional Psychological History / Comment(s): ER nurse states patient commented about intent to harm self. 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 states he has no family here.Pt uses no assistive device. He drives. Pt is an alcoholic. Smoking Status: Never smoker Past Alcohol Use History: Abuse, Daily, Heavy Additional Past Alcohol Use History / Comment(s): pt states his last drink was yesterday tuesday december 27, 2016 Past Drug Use History: None Reported - Past Family History Father Family Medical History: Cancer, Dementia Additional Family Medical History / Comment(s): melanoma, parkinsons Mother Family Medical History: Hypertension, Musculoskeletal Disorder, Neurologic Disorder, Osteoarthritis (OA) Additional Family Medical History / Comment(s): Recently . Had some motor neuron disease Medications and Allergies Home Medications Medication Instructions Recorded Confirmed Type Ergocalciferol [Vitamin D2 50,000 unit PO Q7D 12/28/16 12/30/16 History (DRISDOL)] Atenolol [Tenormin] 100 mg PO DAILY 12/29/16 12/30/16 History Multivitamins, Thera [Multivitamin 1 tab PO DAILY 12/30/16 12/30/16 History (formulary)] Allergies Allergy/AdvReac Type Severity Reaction Status Date / Time Cephalosporins Allergy Severe Anaphylaxis Verified 12/30/16 18:48 diphenhydramine HCl Allergy Severe Anaphylaxis Verified 12/30/16 18:48 [From Benadryl] divalproex sodium Allergy Severe Anaphylaxis Verified 12/30/16 18:48 [From Depakote] ceftriaxone [From Rocephin] Allergy Unknown Verified 12/30/16 18:48 cephalexin [From Keflex] Allergy Unknown Verified 12/30/16 18:48 lisinopril Allergy Unknown Verified 12/30/16 18:48 Physical Exam Vitals: Vital Signs Temp Pulse Pulse Resp BP BP Pulse Ox 12/31/16 17:02 88 16 145/83 12/31/16 14:39 89 18 142/91 12/31/16 12:15 89 16 167/96 12/31/16 10:16 93 18 165/95 12/31/16 09:26 107 H 18 193/102 12/31/16 07:00 135/83 12/31/16 00:50 98.7 F 92 18 187/90 12/30/16 19:07 100.5 F H 81 18 151/103 99 PHYSICAL EXAMINATION: GENERAL: The patient is alert and oriented x3, not in any acute distress. Well developed, well nourished. HEENT: Pupils are round and equally reacting to light. EOMI. No scleral icterus. No conjunctival pallor. Normocephalic, atraumatic. No pharyngeal erythema. No thyromegaly. CARDIOVASCULAR: S1 and S2 present. No murmurs, rubs, or gallops. PULMONARY: Chest is clear to auscultation, no wheezing or crackles. ABDOMEN: Soft, nontender, nondistended, normoactive bowel sounds. No palpable organomegaly. MUSCULOSKELETAL: No joint swelling or deformity. EXTREMITIES: No cyanosis, clubbing, or pedal edema. NEUROLOGICAL: Gross neurological examination did not reveal any focal deficits. SKIN: No rashes. Results CBC & Chem 7: 12/31/16 08:33 12/31/16 08:33 Labs: Abnormal Lab Results - Last 24 Hours (Table) 12/31/16 12/31/16 Range/Units 08:33 08:33 RBC 4.00 L (4.30-5.90) m/uL Hgb 12.5 L (13.0-17.5) gm/dL RDW 16.2 H (11.5-15.5) % Plt Count 100 L (150-450) k/uL Chloride 96 L (98-107) mmol/L Carbon Dioxide 21 L (22-30) mmol/L BUN 5 L (9-20) mg/dL Glucose 67 L (74-99) mg/dL Calcium 7.6 L (8.4-10.2) mg/dL Total Bilirubin 1.8 H (0.2-1.3) mg/dL AST 300 H (17-59) U/L ALT 124 H (21-72) U/L Assessment and Plan Plan: #1 alcohol withdrawal: Patient is already on clonazepam and patient appears to have been started on Ativan. For all call withdrawal. Patient's diarrhea and anxiety secondary to her withdrawal. And patient is already on atenolol which can be continued. 2:alcoholic hepatitis: Liver enzymes are coming down #3 gastritis: Patient was started on omeprazole. Will need to be discharged on metoprolol for 14 days. 4 severe depression: Management as per primary service #5 hypotension: Patient is on losartan as well as on atenolol.
[2016-12-31] MEDS: traZODone HCL 100 MG TAB PO SCH (20:59)
[2017-01-01] MEDS: LOPERAMIDE 2 MG CAP PO PRN ×3 (03:49→16:23)
[2017-01-01] MEDS: LORazepam 1 MG TAB PO PRN ×6 (03:49→18:28)
--- NOTE | 2017-01-01 08:44 | P.PN ---
Progress Note - Text INTERVERAL HISTORY: Patient was discussed at team treatment meeting, review of record, met with patient. Staff reports he was given phone numbers for the various rehabs he would like to go to [place] since he tried to Spr[place] the last time. RN reports he had elevated blood pressure we consulted with our hospitalist who is managing medical conditions. His blood pressure has come under control however his pulse rate is elevated, he has used 6 mg of Ativan since yesterday morning at 6 AM. +2 mg of clonazepam Patient was delayed coming to office after we met in the hallway, he came in and said he was sorry but that he had vomited in his room. He continues to have diarrhea. States that he spoke to someone at [place] yesterday and that they need to exchange information with another agency but he has not received a admission date as of yet. Patient reports that he slept better last night with the trazodone. MENTAL STATUS EXAM: Patient alert and oriented 3, poor eye contact, fair groomed in hospital attire. Speech normal volume, decreased rate and production. Coherent, logical and goal directed thought process, concrete. No GIDEON, no FOI. No TB/TW/TI Denied auditory and visual hallucinations. Denied paranoid ideation, delusions or IOR. Memory grossly intact Cognition average Mood dysphoric, affect constricted, congruent with mood. Denies suicidal ideation, denies homicidal ideation. Insight limited; Judgment grossly intact for treatment purposes . IMPRESSIONS: 41-year-old single male admitted to the hospital for acute gastritis, alcohol withdrawal. He was on medical floor for approximately 4 days before being transferred to [facility]. Patient long history of alcohol use, calls himself an alcoholic. Had one month where he was sober he was taking ReVia and gabapentin, but did not continue after care and started drinking a month ago. Patient reports depression however he has not had a period of not drinking and reporting depression. He reports anxiety which is more than likely due to either his blood alcohol level going lower or due to withdrawal. Patient has no past history of psychiatric problems rising to the point of needing treatment he receives his Xanax from his primary care doctor. Patient had one rehab. No psychosis, no history of payam/hypomania. Has a genetic history of bipolar/ schizophrenia in father and other family members on father's side. No suicidal ideation. Alcohol use disorder, severe Alcohol withdrawal R/O depression versus alcohol-induced depression PLAN: Continue inpatient psychiatric admission, for safety, clarification of diagnosis, and treatment. Suicide precautions and every 15 minute checks Continue to manage/monitor alcohol withdrawal Increase gabapentin. Begin ReVia. Trazodone for sleep Vistaril for anxiety Social work to help with referral to rehab. DC or taper benzodiazepine when possible 2-3 day LOS.
[2017-01-01] MEDS: clonazePAM 1 MG TAB PO SCH ×2 (09:04→21:13)
[2017-01-01] MEDS: ATENOLOL 50 MG TAB PO SCH (09:04)
[2017-01-01] MEDS: GABAPENTIN 100 MG CAP PO SCH ×3 (09:04→21:13)
[2017-01-01] MEDS: PANTOPRAZOLE 40 MG TABLET PO SCH (09:04)
[2017-01-01] MEDS: ONDANSETRON 4 MG TAB PO PRN ×2 (09:05→18:28)
[2017-01-01] MEDS: LOSARTAN 25 MG TAB PO SCH (09:05)
[2017-01-01] MEDS: BENZOCAINE 20% HEMORRHOIDAL OINT 28GM RECTAL SCH ×2 (09:08→21:13)
[2017-01-01] MEDS: ACETAMINOPHEN TAB 325 MG TAB PO PRN (11:06)
[2017-01-01] MEDS: THIAMINE 100 MG TAB PO SCH (12:07)
[2017-01-01] MEDS: traZODone HCL 100 MG TAB PO SCH (21:13)
[2017-01-02] MEDS: LOSARTAN 25 MG TAB PO SCH (08:34)
[2017-01-02] MEDS: GABAPENTIN 100 MG CAP PO SCH ×3 (08:34→20:22)
[2017-01-02] MEDS: clonazePAM 1 MG TAB PO SCH ×2 (08:35→20:22)
[2017-01-02] MEDS: ATENOLOL 50 MG TAB PO SCH (08:35)
[2017-01-02] MEDS: PANTOPRAZOLE 40 MG TABLET PO SCH (08:35)
[2017-01-02] MEDS: BENZOCAINE 20% HEMORRHOIDAL OINT 28GM RECTAL SCH ×2 (08:43→20:22)
--- NOTE | 2017-01-02 08:55 | P.PN ---
Progress Note - Text Progress Note - Text INTERVERAL HISTORY: Patient was discussed at team treatment meeting, review of record, met with patient. Patient continues to have vomiting, today in office he vomited and stated he vomited after breakfast. CIWA scores 19, 14, 11. Continues to have elevated pulse/BP. Lorazepam 6mg in 24 hours yesterday + 2mg Clonazepam. He remains dysphroic, constricted, Patient reports that he slept better last night with the trazodone. MENTAL STATUS EXAM: Patient alert and oriented 3, poor eye contact, fair groomed in street clothing. Speech normal volume, decreased rate and production. Coherent, logical and goal directed thought process, concrete. No GIDEON, no FOI. No TB/TW/TI Denied auditory and visual hallucinations. Denied paranoid ideation, delusions or IOR. Memory grossly intact Cognition average Mood dysphoric, affect constricted, congruent with mood. Denies suicidal ideation, denies homicidal ideation. Insight limited; Judgment grossly intact for treatment purposes . IMPRESSIONS: 41-year-old single male admitted to the hospital for acute gastritis, alcohol withdrawal. He was on medical floor for approximately 4 days before being transferred to [facility]. Patient long history of alcohol use, calls himself an alcoholic. He continues to have vomiting several times a day, witnessed. His CIWA is still elevated, last one 11. Unclear if gastritis resolved. C.Dif negative. Y issues Patient reports depression however he has not had a period of not drinking and reporting depression. He reports anxiety which is more than likely due to either his blood alcohol level going lower or due to withdrawal. Patient has no past history of psychiatric problems rising to the point of needing treatment he receives his Xanax from his primary care doctor. Patient had one rehab. No psychosis, no history of payam/hypomania. Has a genetic history of bipolar/ schizophrenia in father and other family members on father's side. No suicidal ideation. R/O ETOH Gastritis vs viral? Alcohol use disorder, severe Alcohol withdrawal R/O depression versus alcohol-induced depression PLAN: Continue inpatient psychiatric admission, for safety, clarification of diagnosis, and treatment. Suicide precautions and every 15 minute checks Continue to manage/monitor alcohol withdrawal Request Hospitalist to re-evaluate his vomiting labs Increase gabapentin. Trazodone for sleep Vistaril for aniexty Rehab ?admission date DC or taper benzodiazepine when possible 2-3 day LOS. Selected Entries 01/01/17 01/01/17 01/01/17 11:37 18:31 21:15 Temperature Pulse Rate [ 115 H 99 99 Left] Respiratory Rate Blood Pressure 171/103 128/89 136/82 [Left Arm] Blood Pressure 125 102 100 Mean [Left Arm] 01/02/17 05:23 Temperature 97.8 F Pulse Rate [ 99 Left] Respiratory 16 Rate Blood Pressure 130/84 [Left Arm] Blood Pressure Mean [Left Arm] Laboratory Tests 12/31/16 13:55 C. difficile (EIA) Intrp Negative
[2017-01-02] MEDS: ONDANSETRON 4 MG TAB PO PRN ×2 (09:17→16:11)
[2017-01-02 10:02] LABS: ALT 136 U/L (21-72); AST 261 U/L (17-59); Alkaline Phosphatase 60 U/L (38-126); Anion Gap 16 mmol/L; Blood Urea Nitrogen 9 mg/dL (9-20); Calcium 7.8 mg/dL (8.4-10.2); Carbon Dioxide 22 mmol/L (22-30); Chloride 102 mmol/L (98-107); Glucose 101 mg/dL (74-99); Non-African American GFR(MDRD) >60 (>60 ml/min/1.73 sqM); Potassium 3.3 mmol/L (3.5-5.1); Sodium 140 mmol/L (137-145); Total Bilirubin 1.3 mg/dL (0.2-1.3); Total Protein 6.3 g/dL (6.3-8.2)
[2017-01-02 10:06] LABS: Anisocytosis Slight; CH 32.2; Macrocytosis Slight
[2017-01-02 10:28] LABS: Aty Lym Flag Slight; CHCM 33.1; HCT 36.4 % (39.0-53.0); HDW 2.43; HGB 12.2 gm/dL (13.0-17.5); MCH 32.8 pg (25.0-35.0); MCHC 33.5 g/dL (31.0-37.0); MCV 97.8 fL (80.0-100.0); Mean Platelet Volume 8.6; RBC 3.72 m/uL (4.30-5.90); RDW 17.2 % (11.5-15.5); WBC 2.7 k/uL (3.8-10.6); WBC (Perox) 2.76
[2017-01-02] MEDS: LORazepam 1 MG TAB PO PRN ×3 (10:40→17:47)
[2017-01-02] MEDS: THIAMINE 100 MG TAB PO SCH (10:40)
[2017-01-02 12:09] LABS: Add Differential Manual Differential
[2017-01-02 12:58] LABS: Manual Review Performed; Nucleated Red Blood Cells 0 /100 WBC (0-0); Total Cells Counted 100
[2017-01-02] MEDS: ACETAMINOPHEN TAB 325 MG TAB PO PRN (13:43)
[2017-01-02] MEDS: LOPERAMIDE 2 MG CAP PO PRN ×2 (13:44→20:23)
--- NOTE | 2017-01-02 16:37 | P.PN ---
Subjective I was asked to reevaluate the patient as patient is nauseous in the morning and was complaining of some epigastric abdominal discomfort which is acute on chronic gastritis I recommend to continue Prilosec will add Maalox.. Objective - Vital Signs Vital signs: Vital Signs Temp 97.8 F 01/02/17 05:23 Pulse 88 01/02/17 13:49 Resp 16 01/02/17 13:49 BP 106/69 01/02/17 13:49 Pulse Ox 99 12/30/16 19:07 - Exam PHYSICAL EXAMINATION: GENERAL: The patient is alert and oriented x3, not in any acute distress. Well developed, well nourished. HEENT: Pupils are round and equally reacting to light. EOMI. No scleral icterus. No conjunctival pallor. Normocephalic, atraumatic. No pharyngeal erythema. No thyromegaly. CARDIOVASCULAR: S1 and S2 present. No murmurs, rubs, or gallops. PULMONARY: Chest is clear to auscultation, no wheezing or crackles. ABDOMEN: Soft, nontender, nondistended, normoactive bowel sounds. No palpable organomegaly. MUSCULOSKELETAL: No joint swelling or deformity. EXTREMITIES: No cyanosis, clubbing, or pedal edema. NEUROLOGICAL: Gross neurological examination did not reveal any focal deficits. SKIN: No rashes. - Labs CBC & Chem 7: 01/02/17 09:38 01/02/17 09:38 Labs: Abnormal Lab Results - Last 24 Hours (Table) 01/02/17 01/02/17 Range/Units 09:38 09:38 WBC 2.7 L (3.8-10.6) k/uL RBC 3.72 L (4.30-5.90) m/uL Hgb 12.2 L (13.0-17.5) gm/dL Hct 36.4 L (39.0-53.0) % RDW 17.2 H (11.5-15.5) % Plt Count 124 L (150-450) k/uL Neutrophils # (Manual) 1.2 L (1.3-7.7) k/uL Potassium 3.3 L (3.5-5.1) mmol/L Glucose 101 H (74-99) mg/dL Calcium 7.8 L (8.4-10.2) mg/dL AST 261 H (17-59) U/L ALT 136 H (21-72) U/L Assessment and Plan Plan: #1 alcohol withdrawal: Patient is already on clonazepam and patient appears to have been started on Ativan. For all call withdrawal. Patient's diarrhea and anxiety secondary to her withdrawal. And patient is already on atenolol which can be continued. 2:alcoholic hepatitis: Liver enzymes are coming down #3 gastritis: Patient was started on omeprazole. Will add Maalox 4 severe depression: Management as per primary service #5 hypotension: Patient is on losartan as well as on atenolol.
[2017-01-02] MEDS: traZODone HCL 100 MG TAB PO SCH (20:22)
[2017-01-03] MEDS: GABAPENTIN 100 MG CAP PO SCH ×3 (07:58→21:16)
[2017-01-03] MEDS: PANTOPRAZOLE 40 MG TABLET PO SCH (07:58)
[2017-01-03] MEDS: ONDANSETRON 4 MG TAB PO PRN ×2 (07:58→18:40)
[2017-01-03] MEDS: clonazePAM 1 MG TAB PO SCH ×2 (07:58→20:29)
[2017-01-03] MEDS: LOSARTAN 25 MG TAB PO SCH (07:58)
[2017-01-03] MEDS: ATENOLOL 50 MG TAB PO SCH (07:59)
[2017-01-03] MEDS: BENZOCAINE 20% HEMORRHOIDAL OINT 28GM RECTAL SCH ×2 (07:59→20:28)
[2017-01-03] MEDS: ACETAMINOPHEN TAB 325 MG TAB PO PRN ×2 (11:05→20:29)
[2017-01-03] MEDS: LOPERAMIDE 2 MG CAP PO PRN (11:05)
[2017-01-03] MEDS: LORazepam 1 MG TAB PO PRN ×4 (11:05→17:49)
[2017-01-03] MEDS: THIAMINE 100 MG TAB PO SCH (12:34)
--- NOTE | 2017-01-03 12:43 | P.PN ---
Progress Note - Text Interval history: The patient is found in the [facility] he follows me to an interview room. The patient is admitted with symptoms of depression in the context of alcohol use disorder. It appears he is scheduled to attend inpatient chemical dependency treatment on January 15. He states that his mood is depressed he states that he feels he is in "the darkness". He does not specifically endorse acute suicidal ideation intent or plan but appears he has some hopeless thoughts. In the remote past he had been treated with Zoloft and did not like how he felt with that as it made him "an ass hole" he has been experiencing acute nausea with vomiting a regular basis but states the vomiting seems to be less today. He has discussed using an antidepressant with Dr. Bob but they have been waiting for his vomiting and nausea to subside. Mental status exam: The patient is a male he is overweight he appears older than his stated age. He has tejeda hair a long graying calderon. Eye contact is appropriate speech is fluent spontaneous nonpressured he is dressed in his own clothing he has a disheveled appearance. He is tearful at least twice briefly during our session. He endorses a depressed mood and indicates he has hopeless thinking. He endorses no auditory or visual hallucinations is no evidence of psychosis. He does not appear hypomanic or manic. With outstretched arms he demonstrates some tremor which may be anxiety related versus actual withdrawal phenomenon. Insight and judgment limited. Plan: The patient will continue on his current medications we will consider adding an antidepressant medication once he is able to tolerate it. He is encouraged to try eating if possible. We will continue monitoring him for safety. Vital signs reviewed.
[2017-01-03] MEDS: hydrOXYzine PAMOATE 25 MG CAP PO PRN (12:56)
[2017-01-03] MEDS: traZODone HCL 100 MG TAB PO SCH (20:29)
[2017-01-04] MEDS: LORazepam 1 MG TAB PO PRN ×3 (03:37→19:03)
[2017-01-04] MEDS: PANTOPRAZOLE 40 MG TABLET PO SCH (07:48)
[2017-01-04] MEDS: ATENOLOL 50 MG TAB PO SCH (08:35)
[2017-01-04] MEDS: ONDANSETRON 4 MG TAB PO PRN ×2 (08:35→17:11)
[2017-01-04] MEDS: GABAPENTIN 100 MG CAP PO SCH ×3 (08:35→21:04)
[2017-01-04] MEDS: LOSARTAN 25 MG TAB PO SCH (08:35)
[2017-01-04] MEDS: clonazePAM 1 MG TAB PO SCH ×2 (08:35→20:41)
[2017-01-04] MEDS: BENZOCAINE 20% HEMORRHOIDAL OINT 28GM RECTAL SCH ×2 (08:40→20:39)
[2017-01-04] MEDS: ACETAMINOPHEN TAB 325 MG TAB PO PRN ×2 (08:52→17:15)
--- NOTE | 2017-01-04 09:12 | P.PN ---
Progress Note - Text Interval history: The patient is found in the library he follows me to an interview room. He continues to endorse a depressed mood he reports he has been tearful and still has some hopelessness thinking. In terms of safety he feels safe in the hospital he has no intent or plan of harming himself here. He reports nausea is decreasing he is able to tolerate more food. He states he had no visitors last evening as there is no one to visit. We discussed adding an antidepressant now that the nausea is reducing and we decided to initiate Lexapro. We discussed the potential benefits and side effects of Lexapro and his questions were answered. He continues to use Klonopin scheduled twice daily and has been frequently using when necessary Ativan. We discussed we will need to decrease the use of benzodiazepines while here. He should no longer be at any acute risk for alcohol withdrawal symptoms. He offers some resistance to that idea as he feels comfortable having the Ativan available frequently. Mental status exam: The patient is a tall overweight male he has a disheveled appearance hygiene is adequate. Eye contact is appropriate. Speech is spontaneous fluent nonpressured. He endorses a continued depressed and anxious mood with some hopeless thinking. He maintains a constricted affect he demonstrates no tearfulness or crying spells. He reports having some suicidal thoughts with no acute intent or plan and no homicidal ideation. He demonstrates no evidence of psychosis hypomania or payam. Insight and judgment limited. He remains oriented to person place and date. Plan: For his depressive and anxiety symptoms we will initiate Lexapro 10 mg daily. I will reduce the when necessary Ativan to once 3 times a day as needed. He was informed that over the next several days the benzodiazepines need to be tapered off. Again it is his plan to attend inpatient chemical dependency treatment upon discharge. Vital signs reviewed. We will monitor him for safety.
[2017-01-04] MEDS: ESCITALOPRAM 10 MG TAB PO SCH (09:17)
[2017-01-04] MEDS: THIAMINE 100 MG TAB PO SCH (12:08)
[2017-01-04] MEDS: LOPERAMIDE 2 MG CAP PO PRN (18:06)
[2017-01-04] MEDS: traZODone HCL 100 MG TAB PO SCH (20:41)
[2017-01-05] MEDS: LORazepam 1 MG TAB PO PRN (06:23)
[2017-01-05] MEDS: PANTOPRAZOLE 40 MG TABLET PO SCH (08:04)
[2017-01-05] MEDS: ACETAMINOPHEN TAB 325 MG TAB PO PRN ×2 (09:02→16:28)
[2017-01-05] MEDS: LOSARTAN 25 MG TAB PO SCH (09:04)
[2017-01-05] MEDS: ONDANSETRON 4 MG TAB PO PRN ×2 (09:04→19:37)
[2017-01-05] MEDS: GABAPENTIN 100 MG CAP PO SCH ×3 (09:04→21:27)
[2017-01-05] MEDS: clonazePAM 1 MG TAB PO SCH ×2 (09:04→21:27)
[2017-01-05] MEDS: ATENOLOL 50 MG TAB PO SCH (09:05)
[2017-01-05] MEDS: ESCITALOPRAM 10 MG TAB PO SCH (09:05)
[2017-01-05] MEDS: BENZOCAINE 20% HEMORRHOIDAL OINT 28GM RECTAL SCH ×2 (09:06→21:28)
[2017-01-05] MEDS: LOPERAMIDE 2 MG CAP PO PRN ×2 (09:08→21:29)
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
[2017-01-05] MEDS: buPROPion 75 MG TAB PO SCH ×3 (10:00→21:27)
[2017-01-05] MEDS: THIAMINE 100 MG TAB PO SCH (12:49)
[2017-01-05] MEDS: LORazepam 0.5 MG TAB PO PRN (14:05)
[2017-01-05] MEDS: LORATADINE 10 MG TAB PO PRN (14:05)
[2017-01-05] MEDS: traZODone HCL 100 MG TAB PO SCH (21:29)
[2017-01-06] MEDS: LORazepam 0.5 MG TAB PO PRN (00:08)
--- NOTE | 2017-01-06 08:48 | P.PN ---
Progress Note - Text INTERVERAL HISTORY: Patient was discussed at treatment team meeting, review of record, and met with patient Staff reports he is anxious and frequently requests PRN lorazepam, patient is also requesting meds for diarrhea, staff has asked if he is actually having diarrhea and he said no. Have agreed that staff will request patient to leave anything in the bowl if he has diarrhea or vomiting for them to view it. He reported it looked like bile this morning, he agreed to inform nursing when it happens again. He stated he is feeling a little better today, no problems with welbutrin. MENTAL STATUS EXAM: Patient alert and oriented 3, fair eye contact, fair groomed in street clothing. Speech normal volume, decreased rate and production. Coherent, logical and goal directed thought process, concrete. No GIDEON, no FOI. No TB/TW/TI Denied auditory and visual hallucinations. Denied paranoid ideation, delusions or IOR. Memory grossly intact Cognition average Mood dysphoric, affect constricted, congruent with mood. Denies suicidal ideation, denies homicidal ideation. Insight limited; Judgment grossly intact for treatment purposes . IMPRESSIONS: 41-year-old single male admitted to the hospital for acute gastritis, alcohol withdrawal. He was on medical floor for approximately 2 days before being transferred to [facility]. It appears he should have remained longer as only in the past 2 days no gastric problems. Today vomitted due to medication. Patient long history of alcohol use, calls himself an alcoholic. Unclear if gastritis resolved. C.Dif negative. Patient continues with depression, today he again was appearing almost blunted and flat. No clear manic symptoms nor hypomania. Anxiety could be a manifestation of hypomanic episodes. At present will consider bipolar in his differential diagnoses. No psychosis, no history of payam/hypomania. Has a genetic history of bipolar/ schizophrenia in father and other family members on father's side. No suicidal ideation. Depression, unspecified Alcohol use disorder, severe Alcohol withdrawal R/O Bipolar unspecified R/O ETOH Gastritis vs viral?--resolved PLAN: Continue inpatient psychiatric admission, for safety, clarification of diagnosis, and treatment. Suicide precautions and every 15 minute checks Continue gabapentin. Continue Welbutrin 75mg TID today then increase to 300mg XL tomorrow AM. Increase Trazodone 200mg hs for sleep Vistaril for anxiety Rehab Jan 15 admission date D/C ativan. taper benzodiazepine and d/c when possible 4-5 day LOS.
[2017-01-06] MEDS: GABAPENTIN 100 MG CAP PO SCH ×3 (09:03→21:31)
[2017-01-06] MEDS: PANTOPRAZOLE 40 MG TABLET PO SCH (09:03)
[2017-01-06] MEDS: LOSARTAN 25 MG TAB PO SCH (09:03)
[2017-01-06] MEDS: ATENOLOL 50 MG TAB PO SCH (09:03)
[2017-01-06] MEDS: buPROPion 75 MG TAB PO SCH ×3 (09:03→21:30)
[2017-01-06] MEDS: clonazePAM 1 MG TAB PO SCH ×2 (09:03→21:31)
[2017-01-06] MEDS: ACETAMINOPHEN TAB 325 MG TAB PO PRN ×3 (09:03→21:32)
[2017-01-06] MEDS: BENZOCAINE 20% HEMORRHOIDAL OINT 28GM RECTAL SCH ×2 (09:05→21:53)
[2017-01-06] MEDS: ONDANSETRON 4 MG TAB PO PRN ×2 (09:23→16:28)
[2017-01-06] MEDS: LORATADINE 10 MG TAB PO PRN ×2 (10:22→22:27)
[2017-01-06] MEDS: hydrOXYzine PAMOATE 25 MG CAP PO PRN (10:25)
[2017-01-06] MEDS: THIAMINE 100 MG TAB PO SCH (12:34)
[2017-01-06] MEDS: traZODone HCL 100 MG TAB PO SCH (21:31)
[2017-01-07] MEDS: GABAPENTIN 100 MG CAP PO SCH ×3 (08:06→21:32)
[2017-01-07] MEDS: ATENOLOL 50 MG TAB PO SCH (08:06)
[2017-01-07] MEDS: PANTOPRAZOLE 40 MG TABLET PO SCH (08:06)
[2017-01-07] MEDS: clonazePAM 1 MG TAB PO SCH (08:06)
[2017-01-07] MEDS: LOSARTAN 25 MG TAB PO SCH (08:06)
[2017-01-07] MEDS: ERGOCALCIFEROL 50,000 UNIT CAP PO SCH (08:06)
[2017-01-07] MEDS: buPROPion 75 MG TAB PO SCH (08:07)
[2017-01-07] MEDS: ACETAMINOPHEN TAB 325 MG TAB PO PRN ×2 (08:08→18:26)
[2017-01-07] MEDS: BENZOCAINE 20% HEMORRHOIDAL OINT 28GM RECTAL SCH ×2 (08:10→21:34)
[2017-01-07] MEDS: ONDANSETRON 4 MG TAB PO PRN (10:43)
[2017-01-07] MEDS: LORATADINE 10 MG TAB PO PRN ×2 (10:43→21:58)
[2017-01-07] MEDS: buPROPion XL 300 MG TAB.ER.24H PO SCH (12:22)
[2017-01-07] MEDS: THIAMINE 100 MG TAB PO SCH (12:22)
--- NOTE | 2017-01-07 13:15 | P.PN ---
Progress Note - Text INTERVERAL HISTORY: Patient was discussed at treatment team meeting, review of record, and met with patient Staff reports he is very passive about his situation. When asked about goals his answer was that he is waiting for the medicines to work, seemingly to think that he has no participation in this other than the swallowing of the pill. He reports that he is sleeping pretty well with the increase of the trazodone. No problems related to Wellbutrin. No increased anxiety. Reports that he has not had any vomiting or diarrhea in the last 24 hours. Remains depressed at times hopeless but has future plans of not drinking, going to [place]. Has not seen the hospitalist for the complaint of edema in lower limbs MENTAL STATUS EXAM: Patient alert and oriented 3, fair eye contact, fair groomed in street clothing. Speech normal volume, decreased rate and production. Coherent, logical and goal directed thought process, concrete. No GIDEON, no FOI. No TB/TW/TI Denied auditory and visual hallucinations. Denied paranoid ideation, delusions or IOR. Memory grossly intact Cognition average Mood dysphoric, affect constricted, congruent with mood. Denies suicidal ideation, denies homicidal ideation. Insight limited; Judgment grossly intact for treatment purposes . IMPRESSIONS: 41-year-old single male admitted to the hospital for acute gastritis, alcohol withdrawal. He was on medical floor for approximately 2 days before being transferred to [facility]. Today no gastric problems. . Patient long history of alcohol use, calls himself an alcoholic. Patient continues with depression, but appearing a bit brighter today, no longer showing a blunted mood or flat affect but almost no expression. No manic symptoms nor hypomania. No psychosis, no history of payam/hypomania. Has a genetic history of bipolar/ schizophrenia in father and other family members on father's side. No suicidal ideation. Depression, unspecified Alcohol use disorder, severe Alcohol withdrawal R/O Bipolar unspecified R/O ETOH Gastritis vs viral?--resolved PLAN: Continue inpatient psychiatric admission, for safety, clarification of diagnosis, and treatment. Suicide precautions and every 15 minute checks Reduce clonazepamand 0.5mg bid x1 day then reduce to 0.25mg, d/c when possible Continue gabapentin. Start Welbutrin 300mg XL. Continue Trazodone 200mg hs for sleep Vistaril for anxiety Rehab Jan 15 admission date
--- NOTE | 2017-01-07 15:53 | P.PN ---
Subjective This 41-year-old gentleman was admitted for psychiatric evaluation also has history of alcohol withdrawal and gastritis. Now the patient is complaining of bilateral leg swelling. Patient did have previous history of leg swelling and responded to hydrochlorothiazide. There is no history of fever shortness with chest pain palpitations. Objective - Vital Signs Vital signs: Vital Signs Temp 98.2 F 01/07/17 06:38 Pulse 99 01/07/17 08:19 Resp 18 01/07/17 08:19 BP 126/72 01/07/17 08:19 Pulse Ox 99 12/30/16 19:07 - Exam On exam, alert and oriented x3. HEENT: Conjunctivae normal. eyes normal. NECK: No JVD. No thyroid enlargement. No LNs CARDIOVASCULAR: S1, S2 muffled. No murmur RESPIRATION: Breath sounds diminished in the bases. No rhonchi or crackles. No bronchial breathing. ABDOMEN: Soft, nontender . No guarding. no masses palpable. No ascites, No hepatosplenomegaly.Bowel sounds heard. LEGS: Bilateral leg swelling percent pitting. NERVOUS SYSTEM: Cranial N 2-12 grossly normal. Moves all 4 limbs. No focal deficits. No sensory deficit. No signs of cerebellar dysfucntion. Skin: no ulcer no rash Joints: No active swelling. No inflammation. Lymphatic system. No LN neck axilla or groin. - Labs CBC & Chem 7: 01/02/17 09:38 01/02/17 09:38 Assessment and Plan Plan: Assessment #1. Bilateral leg edema for evaluation. Exact etiology unknown could be multifactorial. 2. Alcohol withdrawal 3. Alcoholic hepatitis 3. Gastritis 4. Depression 5. Hypertension Plan In this 46-year-old gentleman who was admitted with multiple medical issues also has bilateral leg edema. At this time I would recommend to use by mouth Lasix and small dose of potassium and continue to monitor potassium. supplementation has been recommended. I would also recommend a BMP estimation on 01/09/2017. Please let us know if there is any abnormality. Recommended close follow-up with primary physician regarding the multiple consultations. Thank you.
[2017-01-07] MEDS: FUROSEMIDE 40 MG TAB PO SCH (16:18)
[2017-01-07 16:34] LABS: Anisocytosis Slight; Basophils % (A) 1 %; CH 31.8; CHCM 32.7; Eosinophils # (A) 0.1 k/uL (0-0.7); Eosinophils % (A) 1 %; HCT 38.1 % (39.0-53.0); HDW 2.53; HGB 12.5 gm/dL (13.0-17.5); Luc # (Auto) 0.14; Luc % (Auto) 3; Lymphocytes # (A) 1.4 k/uL (1.0-4.8); Lymphocytes % (A) 32 %; MCH 31.9 pg (25.0-35.0); MCHC 32.7 g/dL (31.0-37.0); MCV 97.6 fL (80.0-100.0); Macrocytosis Slight; Mean Platelet Volume 8.8; Monocytes # (A) 0.6 k/uL (0-1.0); Monocytes % (A) 13 %; Neutrophils # (A) 2.2 k/uL (1.3-7.7); Neutrophils % (A) 50 %; RDW 16.2 % (11.5-15.5); WBC 4.4 k/uL (3.8-10.6); WBC (Perox) 4.41
[2017-01-07 16:37] LABS: ALT 162 U/L (21-72); AST 224 U/L (17-59); Alkaline Phosphatase 49 U/L (38-126); Anion Gap 13 mmol/L; Blood Urea Nitrogen 7 mg/dL (9-20); Calcium 7.8 mg/dL (8.4-10.2); Carbon Dioxide 29 mmol/L (22-30); Chloride 101 mmol/L (98-107); Glucose 83 mg/dL (74-99); Non-African American GFR(MDRD) >60 (>60 ml/min/1.73 sqM); Potassium 3.9 mmol/L (3.5-5.1); Sodium 143 mmol/L (137-145); Total Protein 6.7 g/dL (6.3-8.2)
[2017-01-07] MEDS: clonazePAM 0.5 MG TAB PO SCH (21:32)
[2017-01-07] MEDS: POTASSIUM CHLORIDE ER 20 MEQ TAB.ER PO SCH (21:32)
[2017-01-07] MEDS: traZODone HCL 100 MG TAB PO SCH (21:32)
[2017-01-08] MEDS: ACETAMINOPHEN TAB 325 MG TAB PO PRN ×3 (07:20→21:23)
[2017-01-08] MEDS: ATENOLOL 50 MG TAB PO SCH (08:52)
[2017-01-08] MEDS: clonazePAM 0.5 MG TAB PO SCH ×2 (08:52→21:20)
[2017-01-08] MEDS: PANTOPRAZOLE 40 MG TABLET PO SCH (08:52)
[2017-01-08] MEDS: LOSARTAN 25 MG TAB PO SCH (08:52)
[2017-01-08] MEDS: POTASSIUM CHLORIDE ER 20 MEQ TAB.ER PO SCH ×2 (08:53→21:20)
[2017-01-08] MEDS: FUROSEMIDE 40 MG TAB PO SCH (08:53)
[2017-01-08] MEDS: GABAPENTIN 100 MG CAP PO SCH ×3 (08:53→21:22)
[2017-01-08] MEDS: buPROPion XL 300 MG TAB.ER.24H PO SCH (08:53)
[2017-01-08] MEDS: LORATADINE 10 MG TAB PO PRN ×2 (09:14→22:29)
[2017-01-08] MEDS: BENZOCAINE 20% HEMORRHOIDAL OINT 28GM RECTAL SCH ×2 (09:30→21:20)
[2017-01-08] MEDS: THIAMINE 100 MG TAB PO SCH (11:58)
[2017-01-08] MEDS: hydrOXYzine PAMOATE 25 MG CAP PO PRN (12:00)
[2017-01-08] MEDS ORDERED: buPROPion XL 150 MG TAB.ER.24H PO ONE (13:00)
--- NOTE | 2017-01-08 13:06 | P.PN ---
Progress Note - Text INTERVERAL HISTORY: Patient was discussed at treatment team meeting, review of record, and met with patient Staff reports he is very passive about his situation. Patient reports that the increase of the trazodone is definitely helping and he would like to be discharged with that if possible. He is tolerating the Wellbutrin 300 mg XL. No problems related to Wellbutrin. No increased anxiety. However he still reports that he is depressed still has some hopelessness but denies suicidal ideation, has plans to go to [place] for his alcohol use disorder. He was seen by our hospitalist Dr. Arias and started on Lasix and potassium. He states that he had to get up frequently to urinate but that his feet are feeling better. No vomiting or diarrhea now for 48 hours. MENTAL STATUS EXAM: Patient alert and oriented 3, fair eye contact, fair groomed in street clothing. Speech normal volume, decreased rate and production. Coherent, logical and goal directed thought process, concrete. No GIDEON, no FOI. No TB/TW/TI Denied auditory and visual hallucinations. Denied paranoid ideation, delusions or IOR. Memory grossly intact Cognition average Mood dysphoric to neutral, affect constricted, congruent with mood. Denies suicidal ideation, denies homicidal ideation. Insight limited; Judgment grossly intact for treatment purposes . IMPRESSIONS: 41-year-old single male admitted to the hospital for acute gastritis, alcohol withdrawal. He was on medical floor for approximately 2 days before being transferred to [facility]. Today no gastric problems. . Patient long history of alcohol use, calls himself an alcoholic. Patient continues with depression, but appearing a bit brighter today, no longer showing a blunted mood or flat affect but almost no expression. No manic symptoms nor hypomania. No psychosis, no history of payam/hypomania. Has a genetic history of bipolar/ schizophrenia in father and other family members on father's side. No suicidal ideation. Major depressive disorder, recurrent moderate to severe without psychosis Alcohol use disorder, severe Alcohol withdrawal R/O Bipolar unspecified R/O ETOH Gastritis vs viral?--resolved PLAN: Continue inpatient psychiatric admission, for safety, clarification of diagnosis, and treatment. Suicide precautions and every 15 minute checks Reduce clonazepam 0.25mg, Continue gabapentin. Increase Welbutrin 450 mg XL. Continue Trazodone 200mg hs for sleep Vistaril for anxiety Discharge tomorrow a.m.
[2017-01-08] MEDS: LOPERAMIDE 2 MG CAP PO PRN (15:31)
[2017-01-08] MEDS: traZODone HCL 100 MG TAB PO SCH (21:21)
[2017-01-09] MEDS: ACETAMINOPHEN TAB 325 MG TAB PO PRN (06:26)
[2017-01-09] MEDS: LOPERAMIDE 2 MG CAP PO PRN (06:26)
[2017-01-09] MEDS: hydrOXYzine PAMOATE 25 MG CAP PO PRN (06:28)
[2017-01-09 07:12] VITALS: TEMP 97.9
[2017-01-09] MEDS ORDERED: buPROPion XL 150 MG TAB.ER.24H PO SCH (09:00)
--- NOTE | 2017-01-09 09:09 | P.DS ---
Providers Date of admission: 12/30/16 18:40 Expected date of discharge: 01/09/17 Attending physician: Michelle Ahuja MD Consults: 12/30/16 17:45 Consult Physician Routine Consulting Provider: Hank Ogden Consult Reason/Comments: follow up H & P Do you want consulting provider notified?: Yes 01/02/17 10:05 Consult Physician Routine Consulting Provider: Hank Ogden Consult Reason/Comments: Patient vomiting 2 to 3 times per day. Do you want consulting provider notified?: Yes 01/06/17 16:02 Consult Physician Routine Consulting Provider: Hank Ogden Consult Reason/Comments: Edema bilateral lower legs Do you want consulting provider notified?: Yes Primary care physician: Veena Bynum Hospital Course: BRIEF ADMISSION HISTORY: Patient was admitted to medical floor due to alcohol gastritis, alcohol intoxication, alcohol hepatitis. Patient came in due to not being able to stop vomiting. Patient was on the medical floor for a few days and was transferred to 3 . Patient reports that he is an alcoholic and has tried to stop, spent the 30 days at [facility] after which she had another 30 days of sobriety and then began to drink again. Patient states that he's had a lot of losses over the last few years including his significant other of 20 years. Says he never was able to deal with it except for alcohol. HOSPITAL COURSE: Patient continued to have significant gastric problems while on 3 W., vomiting and diarrhea. He was checked for C. diff which was negative. Eventually after about a week he improved and no longer was having vomiting or diarrhea. He continued however to have significant CIWA numbers so he was tapered down rather slowly on benzodiazepine. He was evaluated and it appears that he may have a major depressive disorder independent of the depressing affects of alcohol. His father was diagnosed with schizophrenia. He responded to the initiation of bupropion without any increased anxiety or side effects. His bupropion was rapidly titrated up to the maximum dose Wellbutrin XL 450 mg. We continued to taper the clonazepam to the point at discharge of 0.25 mg twice a day. He agreed to and sought rehab, selecting [facility], admission date January 15. Patient was noted to have bilateral pitting edema, the hospitalist started him on Lasix and replacement of potassium. Patient is not suicidal. No evidence of payam/hypomania/psychosis. Stable for discharge DISCHARGE DIAGNOSES: Major depressive disorder, recurrent, moderate Alcohol use disorder, severe, in early remission Complicated bereavement Patient is stable for discharge. He will receive medications but we have set him up with his primary care today. Pertinent Studies: none Procedures: none Patient Condition at Discharge: Stable Plan - Discharge Summary New Discharge Prescriptions: New buPROPion XL [Wellbutrin XL] 450 mg PO DAILY #90 tab Furosemide [Lasix] 40 mg PO DAILY #30 tab Gabapentin [Neurontin] 100 mg PO TID #90 cap hydrOXYzine PAMOATE [Vistaril] 25 mg PO Q8HR PRN #90 cap PRN Reason: Anxiety Loratadine [Claritin] 5 mg PO Q12HR PRN #0 tab PRN Reason: Congestion Potassium Chloride ER [K-Dur 20] 20 meq PO BID #30 tab traZODone HCL [Desyrel] 200 mg PO HS #60 tab Continue Ergocalciferol [Vitamin D2 (DRISDOL)] 50,000 unit PO Q7D Atenolol [Tenormin] 100 mg PO DAILY Calcium Carbonate [Tums] 1,000 mg PO BID-W/MEALS Folic Acid 1 mg PO DAILY #30 tablet Losartan [Cozaar] 25 mg PO DAILY tab Magnesium Oxide [Mag-Ox] 400 mg PO DAILY tab Pantoprazole [Protonix] 40 mg PO BID tab Thiamine [Vitamin B-1] 100 mg PO BID@1200,1700 tab Multivitamins, Thera [Multivitamin (formulary)] 1 tab PO DAILY Discontinued LORazepam [Ativan] 1 mg PO Q8H PRN #20 tab PRN Reason: Anxiety Discharge Medication List Ergocalciferol [Vitamin D2 (DRISDOL)] 50,000 unit PO Q7D 12/28/16 [History] Atenolol [Tenormin] 100 mg PO DAILY 12/29/16 [History] Calcium Carbonate [Tums] 1,000 mg PO BID-W/MEALS 12/30/16 [Rx] Folic Acid 1 mg PO DAILY #30 tablet 12/30/16 [Rx] Losartan [Cozaar] 25 mg PO DAILY tab 12/30/16 [Rx] Magnesium Oxide [Mag-Ox] 400 mg PO DAILY tab 12/30/16 [Rx] Multivitamins, Thera [Multivitamin (formulary)] 1 tab PO DAILY 12/30/16 [History ] Pantoprazole [Protonix] 40 mg PO BID tab 12/30/16 [Rx] Thiamine [Vitamin B-1] 100 mg PO BID@1200,1700 tab 12/30/16 [Rx] Furosemide [Lasix] 40 mg PO DAILY #30 tab 01/09/17 [Rx] Gabapentin [Neurontin] 100 mg PO TID #90 cap 01/09/17 [Rx] Loratadine [Claritin] 5 mg PO Q12HR PRN #0 tab 01/09/17 [Rx] Potassium Chloride ER [K-Dur 20] 20 meq PO BID #30 tab 01/09/17 [Rx] buPROPion XL [Wellbutrin XL] 450 mg PO DAILY #90 tab 01/09/17 [Rx] hydrOXYzine PAMOATE [Vistaril] 25 mg PO Q8HR PRN #90 cap 01/09/17 [Rx] traZODone HCL [Desyrel] 200 mg PO HS #60 tab 01/09/17 [Rx] Follow up Appointment(s)/Referral(s): [facility] [Outside] - 01/15/17 10:15 am (Intake 01/15/17 at 10:15 am) Veena Bynum DO [Primary Care Provider] - 01/09/17 1:40 pm (follow up regarding continued use of lasix and potassium for swelling of the lower legs.)
[2017-01-09] MEDS: PANTOPRAZOLE 40 MG TABLET PO SCH (09:17)
[2017-01-09] MEDS: GABAPENTIN 100 MG CAP PO SCH (09:17)
[2017-01-09] MEDS: clonazePAM 0.5 MG TAB PO SCH (09:18)
[2017-01-09] MEDS: POTASSIUM CHLORIDE ER 20 MEQ TAB.ER PO SCH (09:19)
[2017-01-09] MEDS: FUROSEMIDE 40 MG TAB PO SCH (09:19)
[2017-01-09] MEDS: LOSARTAN 25 MG TAB PO SCH (09:19)
[2017-01-09] MEDS: BENZOCAINE 20% HEMORRHOIDAL OINT 28GM RECTAL SCH (09:20)
[2017-01-09 10:03] LABS: Anion Gap 15 mmol/L; Blood Urea Nitrogen 11 mg/dL (9-20); Calcium 7.6 mg/dL (8.4-10.2); Carbon Dioxide 29 mmol/L (22-30); Chloride 97 mmol/L (98-107); Glucose 89 mg/dL (74-99); Non-African American GFR(MDRD) >60 (>60 ml/min/1.73 sqM); Potassium 3.9 mmol/L (3.5-5.1); Sodium 141 mmol/L (137-145)
[2017-01-09] MEDS: LORATADINE 10 MG TAB PO PRN (10:43)
[2017-01-09] MEDS: ATENOLOL 50 MG TAB PO SCH (10:45)
[2017-01-09 10:46] VITALS: BP 99/62; PULSE 94; RESP 16
[2017-01-09] MEDS: THIAMINE 100 MG TAB PO SCH (12:15)
== END 2017-01-09 12:27 | disposition home or self-care (01) | DRG 897 ==
LOC: 3MHU 18:40
PROVIDERS: ADMIT Psychiatry & Neurology Addiction Medicine; ATTEND Psychiatry & Neurology Addiction Medicine
DX: F10.239 Alcohol dependence with withdrawal, unspecified (principal); F33.2 Major depressive disorder, recurrent severe without psychotic features; R45.851 Suicidal ideations; K70.10 Alcoholic hepatitis without ascites; K29.20 Alcoholic gastritis without bleeding; F41.9 Anxiety disorder, unspecified; F43.21 Adjustment disorder with depressed mood; K21.9 Gastro-esophageal reflux disease without esophagitis; I10 Essential (primary) hypertension; G47.30 Sleep apnea, unspecified; G40.909 Epilepsy, unspecified, not intractable, without status epilepticus; M19.91 Primary osteoarthritis, unspecified site; M48.00 Spinal stenosis, site unspecified; R60.9 Edema, unspecified; Z79.899 Other long term (current) drug therapy; Z81.8 Family history of other mental and behavioral disorders; Z81.1 Family history of alcohol abuse and dependence
CPT/HCPCS: 80048; 80053; 84443; 85025; 87324

== ENCOUNTER 2017-07-27 06:11 | Inpatient (IN) | payer OTHER ==
[2017-07-27] MEDS ORDERED: SODIUM CHLORIDE 0.9% 1,000 ML with MVI, ADULT NO.4 WITH VIT K 10 ML, THIAMINE 100 MG, F... IV ONE ×4 (06:15)
[2017-07-27] MEDS ORDERED: SODIUM CHLORIDE 0.9% 1,000 ML IV ONE (06:16)
--- NOTE | 2017-07-27 06:18 | ED ---
General Adult HPI - General Source: RN notes reviewed <Rico Benjamin - Last Filed: 07/27/17 06:48> <Elliott Tamayo - Last Filed: 07/27/17 12:20> - General Stated complaint: Vomiting Blood, ETOH Time Seen by Provider: 07/27/17 06:11 - History of Present Illness Initial comments: This is a 42-year-old male who presents emergency room complaining that he is a daily drinker and he started vomiting a few hours ago and he believes it was some blood in the vomit. Patient complains of mild epigastric abdominal pain and a mild headache. Patient states she was seen here recently for the same. Patient states she was supposed go to rehab tomorrow. Patient denies any fever chills or cough. Patient denies any chest pain or palpitations. Patient denies any back pain. Patient denies any diarrhea. Patient states headache is mildly has no numbness or weakness. Patient denies any lightheadedness or dizziness or near syncopal episode. (Rico Benjamin) - Related Data Home Medications Medication Instructions Recorded Confirmed Atenolol [Tenormin] 100 mg PO DAILY 12/29/16 07/27/17 Calcium Carbonate [Tums] 1,000 mg PO BID-W/MEALS PRN 07/12/17 07/27/17 Loratadine [Claritin] 10 mg PO HS 07/12/17 07/27/17 Previous Rx's Medication Instructions Recorded Folic Acid 1 mg PO DAILY #30 tablet 12/30/16 Losartan [Cozaar] 25 mg PO DAILY tab 12/30/16 Pantoprazole [Protonix] 40 mg PO BID tab 12/30/16 Thiamine [Vitamin B-1] 100 mg PO BID@1200,1700 tab 12/30/16 Gabapentin [Neurontin] 100 mg PO TID #90 cap 01/09/17 Potassium Chloride ER [K-Dur 20] 20 meq PO BID #30 tab 01/09/17 traZODone HCL [Desyrel] 200 mg PO HS #60 tab 01/09/17 PARoxetine [Paxil] 10 mg PO DAILY #30 tab 07/15/17 Allergies Allergy/AdvReac Type Severity Reaction Status Date / Time Cephalosporins Allergy Severe Anaphylaxis Verified 07/27/17 07:30 diphenhydramine HCl Allergy Severe Anaphylaxis Verified 07/27/17 07:30 [From Benadryl] divalproex sodium Allergy Severe Anaphylaxis Verified 07/27/17 07:30 [From Depakote] ceftriaxone [From Rocephin] Allergy Unknown Verified 07/27/17 07:30 cephalexin [From Keflex] Allergy Unknown Verified 07/27/17 07:30 lisinopril Allergy Unknown Verified 07/27/17 07:30 Review of Systems ROS Other: All systems not noted in ROS Statement are negative. <Rico Benjamin - Last Filed: 07/27/17 06:48> ROS Other: All systems not noted in ROS Statement are negative. <Elliott Tamayo - Last Filed: 07/27/17 12:20> ROS Statement: Those systems with pertinent positive or pertinent negative responses have been documented in the HPI. Past Medical History Past Medical History: GERD/Reflux, Hypertension, Osteoarthritis (OA), Seizure Disorder, Sleep Apnea/CPAP/BIPAP Additional Past Medical History / Comment(s): Other hx: Alcoholism, ETOH withdrawals, mild alcohol hepatitis, had episode of "fainting" 1 yrs ago and told he had a seizurepossible alcoholic seizures/blackouts, bilateral varicose veins, spinal stenosis with surgery, herniated disc, MILIND no CPAP, hemorrhoids. History of Any Multi-Drug Resistant Organisms: None Reported Past Surgical History: Appendectomy, Tonsillectomy Additional Past Surgical History / Comment(s): 416 LAMINECTOMY,bilateral DISCETOMY L5-S1. Past Anesthesia/Blood Transfusion Reactions: Motion Sickness Past Psychological History: Anxiety, Depression Additional Psychological History / Comment(s): ER nurse states patient commented about intent to harm self. Plant [employer] has asked patient if he intends to do self harm, he currently denies. states he has no family here.Pt uses no assistive device. He drives. Pt is an alcoholic. Smoking Status: Never smoker Past Alcohol Use History: Abuse, Daily, Heavy Additional Past Alcohol Use History / Comment(s): pt states his last drink was yesterday tuesday december 27, 2016 Past Drug Use History: None Reported - Past Family History Father Family Medical History: Cancer, Dementia Additional Family Medical History / Comment(s): melanoma, parkinsons Mother Family Medical History: Hypertension, Musculoskeletal Disorder, Neurologic Disorder, Osteoarthritis (OA) Additional Family Medical History / Comment(s): Recently . Had some motor neuron disease <Rico Benjamin - Last Filed: 07/27/17 06:48> General Exam <Rico Benjamin - Last Filed: 07/27/17 06:48> <Elliott Tamayo - Last Filed: 07/27/17 12:20> - General Exam Comments Initial Comments: GENERAL: Patient is well-developed and well-nourished. Patient is nontoxic and well- hydrated and is in mild distress. ENT: Neck is soft and supple. No significant lymphadenopathy is noted. Oropharynx is clear. Moist mucous membranes. Neck has full range of motion without eliciting any pain. EYES: The sclera were anicteric and conjunctiva were pink and moist. Extraocular movements were intact and pupils were equal round and reactive to light. Eyelids were unremarkable. PULMONARY: Unlabored respirations. Good breath sounds bilaterally. No audible rales rhonchi or wheezing was noted. CARDIOVASCULAR: There is a regular rate and rhythm without any murmurs gallops or rubs. ABDOMEN: S epigastric abdominal pain is mild SKIN: Skin is clear with no lesions or rashes and otherwise unremarkable. NEUROLOGIC: Patient is alert and oriented x3. Cranial nerves II through XII are grossly intact. Motor and sensory are also intact. Normal speech, volume and content. Symmetrical smile. MUSCULOSKELETAL: Normal extremities with adequate strength and full range of motion. No lower extremity swelling or edema. No calf tenderness. LYMPHATICS: No significant lymphadenopathy is noted PSYCHIATRIC: Normal psychiatric evaluation. (BenjaminRico) Course <BenjaminRico - Last Filed: 07/27/17 06:48> <Elliott Tamayo - Last Filed: 07/27/17 12:20> Vital Signs 07/27/17 07/27/17 07/27/17 06:15 08:01 08:42 Temperature 99.3 F Pulse Rate 91 85 81 Respiratory 18 18 16 Rate Blood Pressure 149/92 137/93 149/93 O2 Sat by Pulse 95 96 98 Oximetry 07/27/17 07/27/17 10:27 12:01 Temperature Pulse Rate 85 84 Respiratory 18 18 Rate Blood Pressure 120/75 144/80 O2 Sat by Pulse 94 L 96 Oximetry - Reevaluation(s) Reevaluation #1: 07/27/17 12:19 The patient continues to have a bowel pain nausea shakes I did discuss case Dr. Arias patient will be admitted (Elliott Tamayo) Medical Decision Making <Rico Benjamin - Last Filed: 07/27/17 06:48> - Lab Data Result diagrams: 07/27/17 06:25 02 06:25 <Elliott Tamayo - Last Filed: 07/27/17 12:20> - Medical Decision Making Dr. Tamayo be taking over the care of this patient at 7 AM (Rico Benjamin) - Lab Data Lab Results 07/27/1718 07/27/17 Range/Units 06:25 06:25 06:25 WBC 10.0 (3.8-10.6) k/uL RBC 5.32 (4.30-5.90) m/uL Hgb 16.0 D (13.0-17.5) gm/dL Hct 50.5 (39.0-53.0) % MCV 94.9 (80.0-100.0) fL MCH 30.0 (25.0-35.0) pg MCHC 31.6 (31.0-37.0) g/dL RDW 14.1 (11.5-15.5) % Plt Count 174 (150-450) k/uL Neutrophils % 75 % Lymphocytes % 20 % Monocytes % 4 % Eosinophils % 0 % Basophils % 0 % Neutrophils # 7.5 (1.3-7.7) k/uL Lymphocytes # 2.0 (1.0-4.8) k/uL Monocytes # 0.4 (0-1.0) k/uL Eosinophils # 0.0 (0-0.7) k/uL Basophils # 0.0 (0-0.2) k/uL PT 10.2 (9.0-12.0) sec INR 1.0 (<1.2) APTT 22.9 (22.0-30.0) sec Sodium 144 (137-145) mmol/L Potassium 5.3 H (3.5-5.1) mmol/L Chloride 91 L (98-107) mmol/L Carbon Dioxide 19 L (22-30) mmol/L Anion Gap 34 mmol/L BUN 15 (9-20) mg/dL Creatinine 1.06 (0.66-1.25) mg/dL Est GFR (MDRD) Af Amer >60 (>60 ml/min/1.73 sqM) Est GFR (MDRD) Non-Af >60 (>60 ml/min/1.73 sqM) Glucose 100 H (74-99) mg/dL Calcium 9.2 (8.4-10.2) mg/dL Magnesium 1.2 L (1.6-2.3) mg/dL Total Bilirubin 1.5 H (0.2-1.3) mg/dL AST 163 H (17-59) U/L ALT 81 H (21-72) U/L Alkaline Phosphatase 84 (38-126) U/L Total Protein 7.9 (6.3-8.2) g/dL Albumin 5.2 H (3.5-5.0) g/dL Gastric Occult Blood (Negative) Serum Alcohol 198 mg/dL 07/27/17 Range/Units 06:27 WBC (3.8-10.6) k/uL RBC (4.30-5.90) m/uL Hgb (13.0-17.5) gm/dL Hct (39.0-53.0) % MCV (80.0-100.0) fL MCH (25.0-35.0) pg MCHC (31.0-37.0) g/dL RDW (11.5-15.5) % Plt Count (150-450) k/uL Neutrophils % % Lymphocytes % % Monocytes % % Eosinophils % % Basophils % % Neutrophils # (1.3-7.7) k/uL Lymphocytes # (1.0-4.8) k/uL Monocytes # (0-1.0) k/uL Eosinophils # (0-0.7) k/uL Basophils # (0-0.2) k/uL PT (9.0-12.0) sec INR (<1.2) APTT (22.0-30.0) sec Sodium (137-145) mmol/L Potassium (3.5-5.1) mmol/L Chloride (98-107) mmol/L Carbon Dioxide (22-30) mmol/L Anion Gap mmol/L BUN (9-20) mg/dL Creatinine (0.66-1.25) mg/dL Est GFR (MDRD) Af Amer (>60 ml/min/1.73 sqM) Est GFR (MDRD) Non-Af (>60 ml/min/1.73 sqM) Glucose (74-99) mg/dL Calcium (8.4-10.2) mg/dL Magnesium (1.6-2.3) mg/dL Total Bilirubin (0.2-1.3) mg/dL AST (17-59) U/L ALT (21-72) U/L Alkaline Phosphatase (38-126) U/L Total Protein (6.3-8.2) g/dL Albumin (3.5-5.0) g/dL Gastric Occult Blood Positive (Negative) Serum Alcohol mg/dL Disposition <Rico Benjamin - Last Filed: 07/27/17 06:48> <Elliott Tamayo - Last Filed: 07/27/17 12:20> Clinical Impression: Gastritis, Alcohol withdrawal, Hematemesis, Abdominal pain, Alcohol intoxication Disposition: ADMITTED IP TO THIS HOSP Condition: Stable Referrals: Veena Bynum DO [Primary Care Provider] - 1-2 days
[2017-07-27] MEDS: ONDANSETRON 4 MG/2 ML VIAL IVP STA ×2 (06:20→07:27)
[2017-07-27] MEDS ORDERED: PANTOPRAZOLE 40 MG/10 ML VIAL IVP STA (06:31)
[2017-07-27 06:44] LABS: Basophils % (A) 0 %; Eosinophils % (A) 0 %; HCT 50.5 % (39.0-53.0); Lymphocytes % (A) 20 %; MCHC 31.6 g/dL (31.0-37.0); MCV 94.9 fL (80.0-100.0); Monocytes # (A) 0.4 k/uL (0-1.0); Monocytes % (A) 4 %; Neutrophils # (A) 7.5 k/uL (1.3-7.7); Neutrophils % (A) 75 %; Platelet Count 174 k/uL (150-450); RBC 5.32 m/uL (4.30-5.90); RDW 14.1 % (11.5-15.5)
[2017-07-27 06:56] LABS: Partial Thromboplastin Time 22.9 sec (22.0-30.0); Prothrombin Time 10.2 sec (9.0-12.0)
[2017-07-27 07:22] LABS: ALT 81 U/L (21-72); AST 163 U/L (17-59); Albumin 5.2 g/dL (3.5-5.0); Alkaline Phosphatase 84 U/L (38-126); Anion Gap 34 mmol/L; Blood Urea Nitrogen 15 mg/dL (9-20); Calcium 9.2 mg/dL (8.4-10.2); Carbon Dioxide 19 mmol/L (22-30); Chloride 91 mmol/L (98-107); Glucose 100 mg/dL (74-99); Magnesium 1.2 mg/dL (1.6-2.3); Potassium 5.3 mmol/L (3.5-5.1); Sodium 144 mmol/L (137-145); Total Bilirubin 1.5 mg/dL (0.2-1.3); Total Protein 7.9 g/dL (6.3-8.2)
[2017-07-27 07:35] LABS: Alcohol 198 mg/dL
[2017-07-27] MEDS ORDERED: MAGNESIUM SULFATE-D5W PMX 1 GM in DEXTROSE/WATER 1 100ML.BAG IVPB ONE (07:44)
[2017-07-27] MEDS ORDERED: LORazepam 2 MG/ML INJ IV STA ×2 (07:50→09:17)
[2017-07-27] MEDS ORDERED: HYDROmorphone 2 MG/ML 1 ML SYRINGE IVP STA (09:17)
[2017-07-27] MEDS ORDERED: NALOXONE 0.4 MG/ML 1 ML VIAL IV PRN (12:20)
[2017-07-27] MEDS ORDERED: CALCIUM CARBONATE 500 MG CHEWABLE PO PRN (12:22)
[2017-07-27] MEDS ORDERED: LORazepam 2 MG/ML INJ IV PRN (12:23)
[2017-07-27] MEDS ORDERED: THIAMINE 100 MG/ML 2 ML VIAL IM STA (12:23)
[2017-07-27] MEDS: SODIUM CHLORIDE 0.9% 1,000 ML IV SCH (14:45)
[2017-07-27 15:15] VITALS: BMI 39.5
[2017-07-27] MEDS: HYDROcodone/APAP 5-325MG 1 EACH TAB PO PRN ×2 (16:21→20:05)
[2017-07-27] MEDS: GABAPENTIN 100 MG CAP PO SCH ×2 (16:23→20:02)
[2017-07-27] MEDS: THIAMINE 100 MG TAB PO SCH (16:23)
--- NOTE | 2017-07-27 16:28 | P.HPIM ---
History of Present Illness H&P Date: 07/27/17 Chief Complaint: Abdominal pain Patient is a 42-year-old male with a known history of hypertension, alcohol abuse, obstructive sleep apnea came to ER with complaints of abdominal pain and nausea vomiting. Patient was also found have blood in the emesis. 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 No complaints of chest pain or shortness of breath. No fever no chills. Patient does take Aleve for his back pain occasionally. Denied any diarrhea. No numbness no tingling. No headache or dizziness or lightheadedness. Patient denied any recent endoscopy. No recent illnesses. Review of Systems Constitutional: Patient denies any fever or chills . No generalized weakness or weight loss. Abdomen: Patient does have epigastric abdominal pain throbbing. And nausea vomiting and hematemesis Cardiovascular: Patient denies any chest pain or short of breath no palpitations. Respiratory: patient denied any cough is from production. No shortness of breath Neurologic: Patient denied any numbness or tingling headache. Musculoskeletal: Patient denies any complaints of joint swelling or deformity. Skin: Negative Psychiatric: Negative Endocrine: No heat or cold intolerance. No recent weight gain. Genitourinary: No dysuria or hematuria. All other 14 point ROS negative except the above Past Medical History Past Medical History: GERD/Reflux, Hypertension, Osteoarthritis (OA), Pneumonia , Seizure Disorder, Sleep Apnea/CPAP/BIPAP Additional Past Medical History / Comment(s): Alcoholism, ETOH withdrawals, mild alcohol hepatitis, upper GI bleed, gastritis, had episode of "fainting" 1 yrs ago and told he had a seizurepossible alcoholic seizures/blackouts, bilateral varicose veins, spinal stenosis with surgery, herniated disc, MILIND no CPAP, hemorrhoids. History of Any Multi-Drug Resistant Organisms: None Reported Past Surgical History: Appendectomy, Tonsillectomy Additional Past Surgical History / Comment(s): 07/13/17 EGD, 416 LAMINECTOMY, bilateral DISCETOMY L5-S1. Past Anesthesia/Blood Transfusion Reactions: Motion Sickness Smoking Status: Never smoker - Past Family History Father Family Medical History: Cancer, Dementia Additional Family Medical History / Comment(s): melanoma, parkinsons Mother Family Medical History: Hypertension, Musculoskeletal Disorder, Neurologic Disorder, Osteoarthritis (OA) Additional Family Medical History / Comment(s): . Had some motor neuron disease Medications and Allergies Home Medications Medication Instructions Recorded Confirmed Type Atenolol [Tenormin] 100 mg PO DAILY 12/29/16 07/27/17 History Folic Acid 1 mg PO DAILY #30 tablet 12/30/16 07/27/17 Rx Losartan [Cozaar] 25 mg PO DAILY tab 12/30/16 07/27/17 Rx Pantoprazole [Protonix] 40 mg PO BID tab 12/30/16 07/27/17 Rx Thiamine [Vitamin B-1] 100 mg PO BID@1200,1700 tab 12/30/16 07/27/17 Rx Gabapentin [Neurontin] 100 mg PO TID #90 cap 01/09/17 07/27/17 Rx Potassium Chloride ER [K-Dur 20] 20 meq PO BID #30 tab 01/09/17 07/27/17 Rx traZODone HCL [Desyrel] 200 mg PO HS #60 tab 01/09/17 07/27/17 Rx Calcium Carbonate [Tums] 1,000 mg PO BID-W/MEALS PRN 07/12/17 07/27/17 History Loratadine [Claritin] 10 mg PO HS 07/12/17 07/27/17 History PARoxetine [Paxil] 10 mg PO DAILY #30 tab 07/15/17 07/27/17 Rx Allergies Allergy/AdvReac Type Severity Reaction Status Date / Time Cephalosporins Allergy Severe Anaphylaxis Verified 07/27/17 07:30 diphenhydramine HCl Allergy Severe Anaphylaxis Verified 07/27/17 07:30 [From Benadryl] divalproex sodium Allergy Severe Anaphylaxis Verified 07/27/17 07:30 [From Depakote] ceftriaxone [From Rocephin] Allergy Unknown Verified 07/27/17 07:30 cephalexin [From Keflex] Allergy Unknown Verified 07/27/17 07:30 lisinopril Allergy Unknown Verified 07/27/17 07:30 Physical Exam Vitals: Vital Signs Temp Pulse Pulse Resp BP BP Pulse Ox 07/27/17 13:21 101 H 18 159/97 95 07/27/17 13:05 99.4 F 108 H 16 176/86 97 07/27/17 12:01 84 18 144/80 96 07/27/17 10:27 85 18 120/75 94 L 07/27/17 08:42 81 16 149/93 98 07/27/17 08:01 85 18 137/93 96 07/27/17 06:15 99.3 F 91 18 149/92 95 Intake and Output 07/26/17 07/27/17 07/27/17 22:59 06:59 14:59 Other: Weight 136.078 kg PHYSICAL EXAMINATION: Patient is lying in the bed comfortably, no acute distress, awake alert and oriented.. HEENT: Normocephalic. Neck is supple. Pupils reactive. Nostrils clear. Oral cavity is moist. Ears reveal no drainage. Neck reveals no JVD, carotid bruits, or thyromegaly. CHEST EXAMINATION: Trachea is central. Symmetrical expansion. Lung llamas clear to auscultation and percussion. CARDIAC: Normal S1, S2 with no gallops. No murmurs ABDOMEN: Soft. Bowel sounds normal. No organomegaly. No abdominal bruits. Extremities: reveal no edema. No clubbing or cyanosis Neurologically awake, alert, oriented x3 with well-coordinated movements. No focal deficits noted Skin: No rash or skin lesions. Psychiatric: Coperative. Nonsuicidal Musculoskeletal: No joint swelling or deformity. Normal range of motion. Results CBC & Chem 7: 07/27/17 06:25 07/27/17 06:25 Labs: Abnormal Lab Results - Last 24 Hours (Table) 07/27/17 Range/Units 06:25 Potassium 5.3 H (3.5-5.1) mmol/L Chloride 91 L (98-107) mmol/L Carbon Dioxide 19 L (22-30) mmol/L Glucose 100 H (74-99) mg/dL Magnesium 1.2 L (1.6-2.3) mg/dL Total Bilirubin 1.5 H (0.2-1.3) mg/dL AST 163 H (17-59) U/L ALT 81 H (21-72) U/L Albumin 5.2 H (3.5-5.0) g/dL Thrombosis Risk Factor Assmnt - DVT/VTE Prophylaxis DVT/VTE Prophylaxis: Pharmacologic Prophylaxis ordered - Choose All That Apply Any of the Below Risk Factors Present?: Yes Each Factor Represents 1 point: Age 41-60 years, Obesity (BMI >25) Other Risk Factors: No Other congenital or acquired thrombophilia - If yes, enter type in comment: No Thrombosis Risk Factor Assessment Total Risk Factor Score: 2 Thrombosis Risk Factor Assessment Level: Low Risk Assessment and Plan Assessment: Nausea vomiting abdominal pain likely due to gastritis/alcohol related Hematemesis. We will monitor H&H. Hemoglobin 16.0 now Severe alcohol abuse Acute alcohol intoxication on admission Hypokalemia and hypomagnesemia Elevated liver enzymes possible alcoholic hepatitis Hypertension GERD Osteoarthritis History of seizure disorder Operative sleep apnea not on CPAP at home History of spinal stenosis with back surgery and chronic back pain. hemorrhoids Plan: Patient will be continued on IV fluids/time in/multivitamins. Continue with Protonix and monitor H&H. Monitor for alcohol withdrawal symptoms. Currently the pain management with [facility] [facility]. Alcohol abuse has been counseled extensively. Patient does want to go to rehab program. Otherwise continue with current management and further recommendations based on the clinical course. Time with Patient: Greater than 30
[2017-07-27] MEDS: ONDANSETRON 4 MG/2 ML VIAL IVP PRN (16:30)
[2017-07-27] MEDS ORDERED: THIAMINE 100 MG TAB PO SCH (17:00)
[2017-07-27] MEDS: HYDROCORTISONE SUPPOSITORY 25 MG SUPP RECTAL SCH (20:01)
[2017-07-27] MEDS: LORazepam 2 MG/ML INJ IV PRN (20:01)
[2017-07-27] MEDS: LORATADINE 10 MG TAB PO SCH (20:01)
[2017-07-27] MEDS: traZODone HCL 100 MG TAB PO SCH (20:02)
[2017-07-27] MEDS: PANTOPRAZOLE 40 MG TABLET PO SCH (20:02)
[2017-07-28] MEDS: LORazepam 2 MG/ML INJ IV PRN ×4 (00:03→20:47)
[2017-07-28] MEDS: HYDROcodone/APAP 5-325MG 1 EACH TAB PO PRN ×4 (04:13→20:47)
[2017-07-28] MEDS: ONDANSETRON 4 MG/2 ML VIAL IVP PRN ×3 (04:15→22:15)
[2017-07-28] MEDS: GABAPENTIN 100 MG CAP PO SCH ×3 (08:30→20:47)
[2017-07-28] MEDS: LOSARTAN 25 MG TAB PO SCH (08:31)
[2017-07-28] MEDS: HYDROCORTISONE SUPPOSITORY 25 MG SUPP RECTAL SCH ×2 (08:31→20:47)
[2017-07-28] MEDS: ATENOLOL 50 MG TAB PO SCH (08:31)
[2017-07-28] MEDS: PARoxetine 10 MG TAB PO SCH (08:31)
[2017-07-28] MEDS: PANTOPRAZOLE 40 MG TABLET PO SCH ×2 (08:31→20:47)
[2017-07-28] MEDS: FOLIC ACID 1 MG TAB PO SCH (12:40)
[2017-07-28] MEDS: THIAMINE 100 MG TAB PO SCH ×2 (12:40→16:45)
[2017-07-28] MEDS: SODIUM CHLORIDE 0.9% 1,000 ML IV SCH ×3 (12:42→20:48)
[2017-07-28] MEDS ORDERED: Magnesium Replacement Protocol 1 EACH MISC MISCELLANE PRN (15:54)
[2017-07-28 17:14] LABS: Anion Gap 9 mmol/L; Blood Urea Nitrogen 11 mg/dL (9-20); Calcium 7.5 mg/dL (8.4-10.2); Carbon Dioxide 32 mmol/L (22-30); Chloride 97 mmol/L (98-107); Glucose 73 mg/dL (74-99); Potassium 3.2 mmol/L (3.5-5.1); Sodium 138 mmol/L (137-145)
[2017-07-28 17:20] LABS: Magnesium 1.1 mg/dL (1.6-2.3)
[2017-07-28] MEDS: traZODone HCL 100 MG TAB PO SCH (20:47)
[2017-07-28] MEDS: LORATADINE 10 MG TAB PO SCH (20:48)
[2017-07-29] MEDS: HYDROcodone/APAP 5-325MG 1 EACH TAB PO PRN ×5 (01:07→18:32)
[2017-07-29] MEDS: LORazepam 2 MG/ML INJ IV PRN ×6 (01:07→21:07)
[2017-07-29] MEDS: SODIUM CHLORIDE 0.9% 1,000 ML IV SCH ×2 (06:36→15:55)
[2017-07-29] MEDS: ONDANSETRON 4 MG/2 ML VIAL IVP PRN ×2 (08:30→18:46)
[2017-07-29] MEDS: ATENOLOL 50 MG TAB PO SCH (08:32)
[2017-07-29] MEDS: HYDROCORTISONE SUPPOSITORY 25 MG SUPP RECTAL SCH ×2 (08:32→21:02)
[2017-07-29] MEDS: PANTOPRAZOLE 40 MG TABLET PO SCH ×2 (08:32→21:02)
[2017-07-29] MEDS: GABAPENTIN 100 MG CAP PO SCH ×3 (08:32→21:02)
[2017-07-29] MEDS: LOSARTAN 25 MG TAB PO SCH (08:32)
[2017-07-29] MEDS: PARoxetine 10 MG TAB PO SCH (08:32)
[2017-07-29] MEDS ORDERED: Magnesium Replacement Protocol 1 EACH MISC MISCELLANE PRN (10:08)
[2017-07-29] MEDS: MAGNESIUM SULFATE-D5W PMX 1 GM in DEXTROSE/WATER 1 100ML.BAG IVPB SCH ×4 (11:01→15:55)
[2017-07-29 11:33] LABS: Anion Gap 11 mmol/L; Blood Urea Nitrogen 8 mg/dL (9-20); Calcium 7.6 mg/dL (8.4-10.2); Carbon Dioxide 29 mmol/L (22-30); Chloride 98 mmol/L (98-107); Glucose 88 mg/dL (74-99); Potassium 3.5 mmol/L (3.5-5.1); Sodium 138 mmol/L (137-145)
[2017-07-29] MEDS: THIAMINE 100 MG TAB PO SCH ×2 (13:08→15:55)
[2017-07-29] MEDS: FOLIC ACID 1 MG TAB PO SCH (13:09)
[2017-07-29] MEDS ORDERED: Potassium Replacement Protocol 1 EACH MISC MISCELLANE PRN (13:35)
[2017-07-29] MEDS: traZODone HCL 100 MG TAB PO SCH (21:02)
[2017-07-29] MEDS: LORATADINE 10 MG TAB PO SCH (21:02)
[2017-07-30] MEDS: HYDROcodone/APAP 5-325MG 1 EACH TAB PO PRN ×5 (01:20→20:14)
[2017-07-30] MEDS: LORazepam 2 MG/ML INJ IV PRN ×5 (01:37→20:35)
[2017-07-30] MEDS: SODIUM CHLORIDE 0.9% 1,000 ML IV SCH ×2 (04:21→15:07)
[2017-07-30] MEDS: PARoxetine 10 MG TAB PO SCH (07:50)
[2017-07-30] MEDS: HYDROCORTISONE SUPPOSITORY 25 MG SUPP RECTAL SCH ×2 (07:50→20:16)
[2017-07-30] MEDS: GABAPENTIN 100 MG CAP PO SCH ×2 (07:50→15:58)
[2017-07-30] MEDS: ATENOLOL 50 MG TAB PO SCH (07:50)
[2017-07-30] MEDS: PANTOPRAZOLE 40 MG TABLET PO SCH ×2 (07:50→20:15)
[2017-07-30] MEDS: LOSARTAN 25 MG TAB PO SCH (07:51)
[2017-07-30] MEDS: ONDANSETRON 4 MG/2 ML VIAL IVP PRN ×2 (07:56→15:57)
[2017-07-30 09:39] LABS: Anion Gap 7 mmol/L; Blood Urea Nitrogen 4 mg/dL (9-20); Calcium 8.1 mg/dL (8.4-10.2); Carbon Dioxide 30 mmol/L (22-30); Chloride 101 mmol/L (98-107); Glucose 102 mg/dL (74-99); Magnesium 1.3 mg/dL (1.6-2.3); Potassium 3.9 mmol/L (3.5-5.1); Sodium 138 mmol/L (137-145)
[2017-07-30] MEDS ORDERED: Magnesium Replacement Protocol 1 EACH MISC MISCELLANE PRN (09:49)
[2017-07-30] MEDS: THIAMINE 100 MG TAB PO SCH ×2 (11:20→18:02)
[2017-07-30] MEDS: MAGNESIUM SULFATE-D5W PMX 1 GM in DEXTROSE/WATER 1 100ML.BAG IVPB SCH ×3 (11:20→18:02)
[2017-07-30] MEDS: FOLIC ACID 1 MG TAB PO SCH (11:20)
[2017-07-30] MEDS: traZODone HCL 100 MG TAB PO SCH (20:13)
[2017-07-30] MEDS: LORATADINE 10 MG TAB PO SCH (20:16)
[2017-07-31] MEDS: GABAPENTIN 100 MG CAP PO SCH ×4 (00:07→20:59)
[2017-07-31] MEDS: SODIUM CHLORIDE 0.9% 1,000 ML IV SCH ×3 (00:30→20:59)
[2017-07-31] MEDS: ONDANSETRON 4 MG/2 ML VIAL IVP PRN ×3 (02:41→17:58)
[2017-07-31] MEDS: HYDROcodone/APAP 5-325MG 1 EACH TAB PO PRN ×6 (02:41→22:49)
[2017-07-31] MEDS: LORazepam 2 MG/ML INJ IV PRN ×4 (02:41→21:01)
[2017-07-31] MEDS: ATENOLOL 50 MG TAB PO SCH (07:55)
[2017-07-31] MEDS: LOSARTAN 25 MG TAB PO SCH (07:56)
[2017-07-31] MEDS: PANTOPRAZOLE 40 MG TABLET PO SCH ×2 (07:56→20:54)
[2017-07-31] MEDS: HYDROCORTISONE SUPPOSITORY 25 MG SUPP RECTAL SCH ×2 (07:56→20:54)
[2017-07-31] MEDS: PARoxetine 10 MG TAB PO SCH (07:56)
[2017-07-31] MEDS ORDERED: Magnesium Replacement Protocol 1 EACH MISC MISCELLANE PRN (08:17)
[2017-07-31] MEDS: MAGNESIUM SULFATE-D5W PMX 1 GM in DEXTROSE/WATER 1 100ML.BAG IVPB SCH ×3 (09:40→13:10)
[2017-07-31] MEDS: THIAMINE 100 MG TAB PO SCH ×2 (13:08→16:22)
[2017-07-31] MEDS: FOLIC ACID 1 MG TAB PO SCH (13:09)
[2017-07-31] MEDS: LORATADINE 10 MG TAB PO SCH (20:55)
[2017-07-31] MEDS: traZODone HCL 100 MG TAB PO SCH (20:55)
--- NOTE | 2017-07-31 22:54 | P.PN ---
Subjective Progress Note Date: 07/28/17 Principal diagnosis: Alcoholic gastritis Patient is a 42-year-old male with a known history of hypertension, alcohol abuse, obstructive sleep apnea came to ER with complaints of abdominal pain and nausea vomiting. Patient was also found have blood in the emesis. 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 No complaints of chest pain or shortness of breath. No fever no chills. Patient does take Aleve for his back pain occasionally. Denied any diarrhea. No numbness no tingling. No headache or dizziness or lightheadedness. Patient denied any recent endoscopy. No recent illnesses. 05/27/2018 Patient is still complaining of not feeling well and epigastric abdominal discomfort. Nauseated still. Unable to tolerate oral diet. Otherwise no acute overnight issues. Continued on telemetry monitoring and monitor for alcohol withdrawal symptoms. Patient does have hypomagnesemia which is being replaced All other review of systems negative except about Current medications reviewed Objective - Vital Signs Vital signs: Vital Signs Temp 98.8 F 07/28/17 11:39 Pulse 72 07/28/17 11:39 Resp 16 07/28/17 11:39 BP 121/62 07/28/17 11:39 Pulse Ox 96 07/28/17 11:39 Intake & Output 07/27/17 07/28/17 07/28/17 18:59 06:59 18:59 Intake Total 1060 750 Balance 1060 750 Weight 136.078 kg Intake: Oral 1060 750 Other: # Voids 3 - Exam PHYSICAL EXAMINATION: Patient is lying in the bed comfortably, no acute distress, awake alert and oriented. HEENT: Normocephalic. Neck is supple. Pupils reactive. Nostrils clear. Oral cavity is moist. Ears reveal no drainage. Neck reveals no JVD, carotid bruits, or thyromegaly. CHEST EXAMINATION: Trachea is central. Symmetrical expansion. Lung llamas clear to auscultation and percussion. CARDIAC: Normal S1, S2 with no gallops. No murmurs ABDOMEN: Soft. Bowel sounds normal. No organomegaly. No abdominal bruits. Extremities: reveal no edema. No clubbing or cyanosis Neurologically awake, alert, oriented x3 with well-coordinated movements. No focal deficits noted Skin: No rash or skin lesions. Psychiatric: Coperative. Nonsuicidal Musculoskeletal: No joint swelling or deformity. Normal range of motion. - Labs CBC & Chem 7: 07/27/17 06:25 07/30/17 08:25 Assessment and Plan Assessment: Nausea vomiting abdominal pain likely due to gastritis/alcohol related Hematemesis. We will monitor H&H. Hemoglobin 16.0 now Severe alcohol abuse Acute alcohol intoxication on admission Hypokalemia and hypomagnesemia Elevated liver enzymes possible alcoholic hepatitis Hypertension GERD Osteoarthritis History of seizure disorder Operative sleep apnea not on CPAP at home History of spinal stenosis with back surgery and chronic back pain. hemorrhoids Plan: Patient will be continued on IV fluids/time in/multivitamins. Continue with Protonix and monitor H&H. Monitor for alcohol withdrawal symptoms. Currently the pain management with [place] [facility]. Alcohol abuse has been counseled extensively. Patient does want to go to rehab program. Otherwise continue with current management and further recommendations based on the clinical course. Time with Patient: Greater than 30
--- NOTE | 2017-07-31 22:56 | P.PN ---
Subjective Progress Note Date: 07/29/17 Principal diagnosis: Alcoholic gastritis Patient is a 42-year-old male with a known history of hypertension, alcohol abuse, obstructive sleep apnea came to ER with complaints of abdominal pain and nausea vomiting. Patient was also found have blood in the emesis. 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 No complaints of chest pain or shortness of breath. No fever no chills. Patient does take Aleve for his back pain occasionally. Denied any diarrhea. No numbness no tingling. No headache or dizziness or lightheadedness. Patient denied any recent endoscopy. No recent illnesses. 05/27/2018 Patient is still complaining of not feeling well and epigastric abdominal discomfort. Nauseated still. Unable to tolerate oral diet. Otherwise no acute overnight issues. Continued on telemetry monitoring and monitor for alcohol withdrawal symptoms. Patient does have hypomagnesemia which is being replaced, 05/28/2018 Patient is still lethargic and says not feeling well. Not able to tolerate oral diet completely. Does have nausea. Mainly she is being replaced. Otherwise no fever no chills. No chest pain no shortness of breath. Positive epigastric abdominal discomfort All other review of systems negative except about Current medications reviewed Objective - Vital Signs Vital signs: Vital Signs Temp 98.2 F 07/29/17 15:43 Pulse 79 07/29/17 15:43 Resp 18 07/29/17 16:00 BP 111/64 07/29/17 15:43 Pulse Ox 95 07/29/17 15:43 Intake & Output 07/29/17 07/29/17 07/30/17 06:59 18:59 06:59 Intake Total 400 Balance 400 Intake: Intake, IV Titration 400 Amount Magnesium Sulfate-D5w Pmx 400 1 gm In Dextrose/Water 1 100ml.bag @ 100 mls/hr IVPB Q1H [facility] Rx#: [id number] Other: Voiding Method Toilet Toilet # Voids 0 2 - Exam PHYSICAL EXAMINATION: Patient is lying in the bed comfortably, no acute distress, awake alert and oriented. HEENT: Normocephalic. Neck is supple. Pupils reactive. Nostrils clear. Oral cavity is moist. Ears reveal no drainage. Neck reveals no JVD, carotid bruits, or thyromegaly. CHEST EXAMINATION: Trachea is central. Symmetrical expansion. Lung llamas clear to auscultation and percussion. CARDIAC: Normal S1, S2 with no gallops. No murmurs ABDOMEN: Soft. Bowel sounds normal. No organomegaly. No abdominal bruits. Extremities: reveal no edema. No clubbing or cyanosis Neurologically awake, alert, oriented x3 with well-coordinated movements. No focal deficits noted Skin: No rash or skin lesions. Psychiatric: Coperative. Nonsuicidal Musculoskeletal: No joint swelling or deformity. Normal range of motion. - Labs CBC & Chem 7: 07/27/17 06:25 07/30/17 08:25 Labs: Abnormal Lab Results - Last 24 Hours (Table) 07/29/17 07/29/17 Range/Units 08:46 08:46 BUN 8 L (9-20) mg/dL Calcium 7.6 L (8.4-10.2) mg/dL Magnesium 0.9 L* (1.6-2.3) mg/dL Assessment and Plan Assessment: Nausea vomiting abdominal pain likely due to gastritis/alcohol related Hematemesis. We will monitor H&H. Hemoglobin 16.0 now Severe alcohol abuse Acute alcohol intoxication on admission Hypokalemia and hypomagnesemia Elevated liver enzymes possible alcoholic hepatitis Hypertension GERD Osteoarthritis History of seizure disorder Operative sleep apnea not on CPAP at home History of spinal stenosis with back surgery and chronic back pain. hemorrhoids Plan: Patient will be continued on IV fluids/time in/multivitamins. Continue with Protonix and monitor H&H. Monitor for alcohol withdrawal symptoms. Currently the pain management with [place] [facility]. Alcohol abuse has been counseled extensively. Patient does want to go to rehab program. Otherwise continue with current management and further recommendations based on the clinical course.
--- NOTE | 2017-07-31 22:59 | P.PN ---
Subjective Progress Note Date: 07/30/17 Principal diagnosis: Alcoholic gastritis Patient is a 42-year-old male with a known history of hypertension, alcohol abuse, obstructive sleep apnea came to ER with complaints of abdominal pain and nausea vomiting. Patient was also found have blood in the emesis. 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 No complaints of chest pain or shortness of breath. No fever no chills. Patient does take Aleve for his back pain occasionally. Denied any diarrhea. No numbness no tingling. No headache or dizziness or lightheadedness. Patient denied any recent endoscopy. No recent illnesses. 05/27/2018 Patient is still complaining of not feeling well and epigastric abdominal discomfort. Nauseated still. Unable to tolerate oral diet. Otherwise no acute overnight issues. Continued on telemetry monitoring and monitor for alcohol withdrawal symptoms. Patient does have hypomagnesemia which is being replaced, 05/28/2018 Patient is still lethargic and says not feeling well. Not able to tolerate oral diet completely. Does have nausea. Mainly she is being replaced. Otherwise no fever no chills. No chest pain no shortness of breath. Positive epigastric abdominal discomfort 05/29/2018 Patient says that he is not feeling very well. Magnesium is being replaced. Otherwise normal lites. No fever no chills. Continue to monitor for alcohol withdrawal symptoms. Anticipate discharge in next 24 hours. All other review of systems negative except about Current medications reviewed Objective - Vital Signs Vital signs: Vital Signs Temp 98.1 F 07/30/17 15:17 Pulse 70 07/30/17 15:17 Resp 16 07/30/17 15:17 BP 122/72 07/30/17 15:17 Pulse Ox 95 07/30/17 15:17 Intake & Output 07/29/17 07/30/17 07/30/17 18:59 06:59 18:59 Intake Total 400 1200 Balance 400 1200 Intake: Intake, IV Titration 400 1200 Amount Magnesium Sulfate-D5w Pmx 400 1 gm In Dextrose/Water 1 100ml.bag @ 100 mls/hr IVPB Q1H [facility] Rx#: [id number] Sodium Chloride 0.9% 1, 1200 000 ml @ 100 mls/hr IV . Q10H [facility] Rx#:[id number] Other: Voiding Method Toilet # Voids 2 2 3 - Exam PHYSICAL EXAMINATION: Patient is lying in the bed comfortably, no acute distress, awake alert and oriented. HEENT: Normocephalic. Neck is supple. Pupils reactive. Nostrils clear. Oral cavity is moist. Ears reveal no drainage. Neck reveals no JVD, carotid bruits, or thyromegaly. CHEST EXAMINATION: Trachea is central. Symmetrical expansion. Lung llamas clear to auscultation and percussion. CARDIAC: Normal S1, S2 with no gallops. No murmurs ABDOMEN: Soft. Bowel sounds normal. No organomegaly. No abdominal bruits. Extremities: reveal no edema. No clubbing or cyanosis Neurologically awake, alert, oriented x3 with well-coordinated movements. No focal deficits noted Skin: No rash or skin lesions. Psychiatric: Coperative. Nonsuicidal Musculoskeletal: No joint swelling or deformity. Normal range of motion. - Labs CBC & Chem 7: 07/27/17 06:25 07/30/17 08:25 Labs: Abnormal Lab Results - Last 24 Hours (Table) 07/30/17 Range/Units 08:25 BUN 4 L (9-20) mg/dL Glucose 102 H (74-99) mg/dL Calcium 8.1 L (8.4-10.2) mg/dL Magnesium 1.3 L (1.6-2.3) mg/dL Assessment and Plan Assessment: Nausea vomiting abdominal pain likely due to gastritis/alcohol related Hematemesis. We will monitor H&H. Hemoglobin 16.0 now Severe alcohol abuse Acute alcohol intoxication on admission Hypokalemia and hypomagnesemia Elevated liver enzymes possible alcoholic hepatitis Hypertension GERD Osteoarthritis History of seizure disorder Operative sleep apnea not on CPAP at home History of spinal stenosis with back surgery and chronic back pain. hemorrhoids Plan: Patient will be continued on IV fluids/time in/multivitamins. Continue with Protonix and monitor H&H. Monitor for alcohol withdrawal symptoms. Currently the pain management with [facility] [place] [facility]. Alcohol abuse has been counseled extensively. Patient does want to go to rehab program. Otherwise continue with current management and further recommendations based on the clinical course.
--- NOTE | 2017-07-31 23:01 | P.PN ---
Subjective Progress Note Date: 07/31/17 Principal diagnosis: Alcoholic gastritis Patient is a 42-year-old male with a known history of hypertension, alcohol abuse, obstructive sleep apnea came to ER with complaints of abdominal pain and nausea vomiting. Patient was also found have blood in the emesis. 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 No complaints of chest pain or shortness of breath. No fever no chills. Patient does take Aleve for his back pain occasionally. Denied any diarrhea. No numbness no tingling. No headache or dizziness or lightheadedness. Patient denied any recent endoscopy. No recent illnesses. 05/27/2018 Patient is still complaining of not feeling well and epigastric abdominal discomfort. Nauseated still. Unable to tolerate oral diet. Otherwise no acute overnight issues. Continued on telemetry monitoring and monitor for alcohol withdrawal symptoms. Patient does have hypomagnesemia which is being replaced, 05/28/2018 Patient is still lethargic and says not feeling well. Not able to tolerate oral diet completely. Does have nausea. Mainly she is being replaced. Otherwise no fever no chills. No chest pain no shortness of breath. Positive epigastric abdominal discomfort 05/29/2018 Patient says that he is not feeling very well. Magnesium is being replaced. Otherwise normal lites. No fever no chills. Continue to monitor for alcohol withdrawal symptoms. Anticipate discharge in next 24 hours. 07/31/2017 Patients condition is about the same. Still unable to tolerate diet and nauseated. No constipation. Still having epigastric abdominal discomfort. We will consult GI for further evaluation. No fever no chills otherwise no acute overnight issues. All other review of systems negative except about Current medications reviewed Objective - Vital Signs Vital signs: Vital Signs Temp 98.7 F 07/31/17 14:00 Pulse 76 07/31/17 14:00 Resp 18 07/31/17 15:29 BP 142/74 07/31/17 14:00 Pulse Ox 97 07/31/17 14:00 Intake & Output 07/31/17 07/31/17 08/01/17 06:59 18:59 06:59 Intake Total 500 500 Balance 500 500 Intake: Oral 500 500 Other: Voiding Method Toilet Toilet Toilet # Voids 1 4 # Bowel Movements 1 - Exam PHYSICAL EXAMINATION: Patient is lying in the bed comfortably, no acute distress, awake alert and oriented. HEENT: Normocephalic. Neck is supple. Pupils reactive. Nostrils clear. Oral cavity is moist. Ears reveal no drainage. Neck reveals no JVD, carotid bruits, or thyromegaly. CHEST EXAMINATION: Trachea is central. Symmetrical expansion. Lung llamas clear to auscultation and percussion. CARDIAC: Normal S1, S2 with no gallops. No murmurs ABDOMEN: Soft. Bowel sounds normal. No organomegaly. No abdominal bruits. Extremities: reveal no edema. No clubbing or cyanosis Neurologically awake, alert, oriented x3 with well-coordinated movements. No focal deficits noted Skin: No rash or skin lesions. Psychiatric: Coperative. Nonsuicidal Musculoskeletal: No joint swelling or deformity. Normal range of motion. - Labs CBC & Chem 7: 07/27/17 06:25 07/30/17 08:25 Labs: Abnormal Lab Results - Last 24 Hours (Table) 07/31/17 Range/Units 07:32 Magnesium 1.3 L (1.6-2.3) mg/dL Assessment and Plan Assessment: Nausea vomiting abdominal pain likely due to gastritis/alcohol related Hematemesis. We will monitor H&H. Hemoglobin 16.0 now Severe alcohol abuse Acute alcohol intoxication on admission Hypokalemia and hypomagnesemia Elevated liver enzymes possible alcoholic hepatitis Hypertension GERD Osteoarthritis History of seizure disorder Operative sleep apnea not on CPAP at home History of spinal stenosis with back surgery and chronic back pain. hemorrhoids Plan: Patient will be continued on IV fluids/time in/multivitamins. Continue with Protonix and monitor H&H. Monitor for alcohol withdrawal symptoms. Currently the pain management with [facility]. Alcohol abuse has been counseled extensively. Patient does want to go to rehab program. Otherwise continue with current management and further recommendations based on the clinical course.
[2017-08-01] MEDS: HYDROcodone/APAP 5-325MG 1 EACH TAB PO PRN ×4 (02:57→22:20)
[2017-08-01] MEDS: LORazepam 2 MG/ML INJ IV PRN ×4 (02:57→22:20)
[2017-08-01 06:33] VITALS: RESP 18
[2017-08-01] MEDS: SODIUM CHLORIDE 0.9% 1,000 ML IV SCH ×2 (06:35→13:08)
[2017-08-01] MEDS: ONDANSETRON 4 MG/2 ML VIAL IVP PRN ×2 (06:44→12:57)
[2017-08-01] MEDS: PANTOPRAZOLE 40 MG TABLET PO SCH ×2 (08:45→21:50)
[2017-08-01] MEDS: ATENOLOL 50 MG TAB PO SCH (08:45)
[2017-08-01] MEDS: GABAPENTIN 100 MG CAP PO SCH ×3 (08:45→21:50)
[2017-08-01] MEDS: LOSARTAN 25 MG TAB PO SCH (08:45)
[2017-08-01] MEDS: HEPARIN SODIUM,PORCINE 5,000 UNIT/ML 1 ML VIAL SQ SCH ×2 (08:46→21:50)
[2017-08-01] MEDS: PARoxetine 10 MG TAB PO SCH (08:46)
[2017-08-01] MEDS: HYDROCORTISONE SUPPOSITORY 25 MG SUPP RECTAL SCH ×2 (08:46→21:50)
[2017-08-01 08:57] LABS: Anion Gap 9 mmol/L; Basophils % (A) 0 %; Blood Urea Nitrogen 5 mg/dL (9-20); Calcium 8.7 mg/dL (8.4-10.2); Carbon Dioxide 30 mmol/L (22-30); Chloride 101 mmol/L (98-107); Eosinophils # (A) 0.1 k/uL (0-0.7); Eosinophils % (A) 2 %; Glucose 88 mg/dL (74-99); Lymphocytes # (A) 1.3 k/uL (1.0-4.8); Lymphocytes % (A) 29 %; MCH 30.3 pg (25.0-35.0); MCHC 31.3 g/dL (31.0-37.0); MCV 96.7 fL (80.0-100.0); Magnesium 1.3 mg/dL (1.6-2.3); Mean Platelet Volume 7.9; Monocytes # (A) 0.4 k/uL (0-1.0); Monocytes % (A) 9 %; Neutrophils # (A) 2.5 k/uL (1.3-7.7); Neutrophils % (A) 56 %; Platelet Count 101 k/uL (150-450); Potassium 4.3 mmol/L (3.5-5.1); RBC 4.03 m/uL (4.30-5.90); RDW 13.9 % (11.5-15.5); Sodium 140 mmol/L (137-145); WBC 4.5 k/uL (3.8-10.6)
[2017-08-01 08:59] LABS: HGB 12.2 gm/dL (13.0-17.5)
[2017-08-01] MEDS: THIAMINE 100 MG TAB PO SCH ×2 (13:01→16:39)
[2017-08-01] MEDS: FOLIC ACID 1 MG TAB PO SCH (13:01)
[2017-08-01] MEDS: MAGNESIUM SULFATE-D5W PMX 1 GM in DEXTROSE/WATER 1 100ML.BAG IVPB SCH ×2 (13:02→16:40)
[2017-08-01] MEDS ORDERED: ACETAMINOPHEN TAB 325 MG TAB PO PRN (18:46)
[2017-08-01] MEDS: traZODone HCL 100 MG TAB PO SCH (21:50)
[2017-08-01] MEDS: LORATADINE 10 MG TAB PO SCH (21:50)
[2017-08-02] MEDS: SODIUM CHLORIDE 0.9% 1,000 ML IV SCH ×2 (00:49→08:45)
[2017-08-02] MEDS: HYDROcodone/APAP 5-325MG 1 EACH TAB PO PRN ×2 (03:57→10:44)
[2017-08-02] MEDS: LORazepam 2 MG/ML INJ IV PRN ×2 (03:57→08:43)
[2017-08-02 07:32] VITALS: BP 143/83; PULSE 64; TEMP 98.3
[2017-08-02] MEDS: GABAPENTIN 100 MG CAP PO SCH (08:42)
[2017-08-02] MEDS: PANTOPRAZOLE 40 MG TABLET PO SCH (08:42)
[2017-08-02] MEDS: ATENOLOL 50 MG TAB PO SCH ×2 (08:43→08:55)
[2017-08-02] MEDS: HEPARIN SODIUM,PORCINE 5,000 UNIT/ML 1 ML VIAL SQ SCH (08:43)
[2017-08-02] MEDS: ONDANSETRON 4 MG/2 ML VIAL IVP PRN (08:43)
[2017-08-02] MEDS: LOSARTAN 25 MG TAB PO SCH (08:44)
[2017-08-02] MEDS: HYDROCORTISONE SUPPOSITORY 25 MG SUPP RECTAL SCH (08:45)
[2017-08-02] MEDS: PARoxetine 10 MG TAB PO SCH (08:45)
--- NOTE | 2017-08-02 12:28 | P.CONS ---
History of Present Illness - Reason for Consult Consult date: 08/01/17 - History of Present Illness Patient is a 42-year-old male with a known history of hypertension, alcohol abuse, obstructive sleep apnea came to ER with complaints of abdominal pain and nausea vomiting. Patient was also found have blood in the emesis. 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 No complaints of chest pain or shortness of breath. No fever no chills. Patient does take Aleve for his back pain occasionally. Denied any diarrhea. No numbness no tingling. No headache or dizziness or lightheadedness. Patient denied any recent endoscopy. No recent illnesses. Recent EGD showed gastritis Review of Systems 12-point ROS is othetrwise not revealing Past Medical History Past Medical History: GERD/Reflux, Hypertension, Osteoarthritis (OA), Pneumonia , Seizure Disorder, Sleep Apnea/CPAP/BIPAP Additional Past Medical History / Comment(s): Alcoholism, ETOH withdrawals, mild alcohol hepatitis, upper GI bleed, gastritis, had episode of "fainting" 1 yrs ago and told he had a seizurepossible alcoholic seizures/blackouts, bilateral varicose veins, spinal stenosis with surgery, herniated disc, MILIND no CPAP, hemorrhoids. History of Any Multi-Drug Resistant Organisms: None Reported Past Surgical History: Appendectomy, Tonsillectomy Additional Past Surgical History / Comment(s): 07/13/17 EGD, 4-7-16 LAMINECTOMY, bilateral DISCETOMY L5-S1. Past Anesthesia/Blood Transfusion Reactions: Motion Sickness Smoking Status: Never smoker - Past Family History Father Family Medical History: Cancer, Dementia Additional Family Medical History / Comment(s): melanoma, parkinsons Mother Family Medical History: Hypertension, Musculoskeletal Disorder, Neurologic Disorder, Osteoarthritis (OA) Additional Family Medical History / Comment(s): . Had some motor neuron disease Medications and Allergies Home Medications Medication Instructions Recorded Confirmed Type Atenolol [Tenormin] 100 mg PO DAILY 12/29/16 07/27/17 History Losartan [Cozaar] 25 mg PO DAILY tab 12/30/16 07/27/17 Rx Gabapentin [Neurontin] 100 mg PO TID #90 cap 01/09/17 07/27/17 Rx traZODone HCL [Desyrel] 200 mg PO HS #60 tab 01/09/17 07/27/17 Rx Calcium Carbonate [Tums] 1,000 mg PO BID-W/MEALS PRN 07/12/17 07/27/17 History Loratadine [Claritin] 10 mg PO HS 07/12/17 07/27/17 History PARoxetine [Paxil] 10 mg PO DAILY #30 tab 07/15/17 07/27/17 Rx Folic Acid 1 mg PO 1200 #30 tab 07/29/17 Rx Hydrocortisone Suppository 25 mg RECTAL BID PRN #7 supp 07/29/17 Rx [Anusol-Hc] Magnesium Oxide 400 mg PO BID 7 Days #14 tablet 07/29/17 Rx Pantoprazole [Protonix] 40 mg PO DAILY #30 tablet. 07/29/17 Rx Thiamine [Vitamin B-1] 100 mg PO BID@1200,1700 #30 tab 07/29/17 Rx LORazepam [Ativan] 0.5 mg PO TID PRN #20 tab 08/02/17 Rx Ondansetron Odt [Zofran Odt] 4 mg PO Q8HR PRN #20 tab 08/02/17 Rx Allergies Allergy/AdvReac Type Severity Reaction Status Date / Time Cephalosporins Allergy Severe Anaphylaxis Verified 07/27/17 07:30 diphenhydramine HCl Allergy Severe Anaphylaxis Verified 07/27/17 07:30 [From Benadryl] divalproex sodium Allergy Severe Anaphylaxis Verified 07/27/17 07:30 [From Depakote] ceftriaxone [From Rocephin] Allergy Unknown Verified 07/27/17 07:30 cephalexin [From Keflex] Allergy Unknown Verified 07/27/17 07:30 lisinopril Allergy Unknown Verified 07/27/17 07:30 Physical Exam Vitals: Vital Signs Temp Pulse Resp BP BP Pulse Ox 08/01/17 06:32 97 F L 67 18 126/76 97 07/31/17 22:07 98.1 F 66 16 136/69 95 07/31/17 15:29 18 Intake and Output 07/31/17 08/01/17 08/01/17 22:59 06:59 14:59 Other: Voiding Method Toilet # Voids 1 1 # Bowel Movements 1 Weight 136.078 kg Patient Weight 08/02/17 06:59 Weight 136.078 kg Gen: This is an 85-year-old female patient. She is sitting up in bed and appears to be comfortable and in no acute distress. HEENT: Head is atraumatic, normocephalic. Pupils equal, round. Sclerae is anicteric. NECK: Supple. + JVD. No lymphadenopathy. No thyromegaly. LUNGS: Clear to auscultation. No wheezes or rhonchi. No intercostal retractions. HEART: Irregular rate and rhythm. Systolic murmur. ABDOMEN: Soft. Bowel sounds are present. No masses. No tenderness. EXTREMITIES: No pedal edema. No calf tenderness. NEUROLOGICAL: Patient is awake, alert and oriented x3. Cranial nerves 2 through 12 are grossly intact. Results CBC & Chem 7: 08/01/17 07:59 08/01/17 07:59 Labs: Abnormal Lab Results - Last 24 Hours (Table) 08/01/17 08/01/17 Range/Units 07:59 07:59 RBC 4.03 L (4.30-5.90) m/uL Hgb 12.2 L D (13.0-17.5) gm/dL Plt Count 101 L (150-450) k/uL BUN 5 L (9-20) mg/dL Magnesium 1.3 L (1.6-2.3) mg/dL Assessment and Plan Assessment: Epigastric pain likely related to gastritis. Mucosal tear to be kept in mind Plan: Agree with your current management. Consider repeat EGD or CT based on his course
[2017-08-02] MEDS: FOLIC ACID 1 MG TAB PO SCH (12:33)
[2017-08-02] MEDS: THIAMINE 100 MG TAB PO SCH (12:33)
--- NOTE | 2017-08-03 00:45 | P.PN ---
Subjective Progress Note Date: 08/01/17 Principal diagnosis: Alcoholic gastritis Patient is a 42-year-old male with a known history of hypertension, alcohol abuse, obstructive sleep apnea came to ER with complaints of abdominal pain and nausea vomiting. Patient was also found have blood in the emesis. 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 No complaints of chest pain or shortness of breath. No fever no chills. Patient does take Aleve for his back pain occasionally. Denied any diarrhea. No numbness no tingling. No headache or dizziness or lightheadedness. Patient denied any recent endoscopy. No recent illnesses. 05/27/2018 Patient is still complaining of not feeling well and epigastric abdominal discomfort. Nauseated still. Unable to tolerate oral diet. Otherwise no acute overnight issues. Continued on telemetry monitoring and monitor for alcohol withdrawal symptoms. Patient does have hypomagnesemia which is being replaced, 05/28/2018 Patient is still lethargic and says not feeling well. Not able to tolerate oral diet completely. Does have nausea. Mainly she is being replaced. Otherwise no fever no chills. No chest pain no shortness of breath. Positive epigastric abdominal discomfort 05/29/2018 Patient says that he is not feeling very well. Magnesium is being replaced. Otherwise normal lites. No fever no chills. Continue to monitor for alcohol withdrawal symptoms. Anticipate discharge in next 24 hours. 07/31/2017 Patients condition is about the same. Still unable to tolerate diet and nauseated. No constipation. Still having epigastric abdominal discomfort. We will consult GI for further evaluation. No fever no chills otherwise no acute overnight issues. 08/01/2017 Patient's abdominal pain is better today. Able to sit on the side of the bed. Tolerating oral diet slowly. Epigastric pain is improving. Gas and urology has been consulted otherwise. No acute overnight issues. Patient denied any dark colored stools. All other review of systems negative except about Current medications reviewed Objective - Vital Signs Vital signs: Vital Signs Temp 97.6 F 08/01/17 15:00 Pulse 72 08/01/17 15:00 Resp 18 08/01/17 16:00 BP 128/83 08/01/17 15:00 Pulse Ox 96 08/01/17 15:00 Intake & Output 08/01/17 08/01/17 08/02/17 06:59 18:59 06:59 Weight 136.078 kg Other: Voiding Method Toilet # Voids 1 3 # Bowel Movements 1 - Exam PHYSICAL EXAMINATION: Patient is lying in the bed comfortably, no acute distress, awake alert and oriented. HEENT: Normocephalic. Neck is supple. Pupils reactive. Nostrils clear. Oral cavity is moist. Ears reveal no drainage. Neck reveals no JVD, carotid bruits, or thyromegaly. CHEST EXAMINATION: Trachea is central. Symmetrical expansion. Lung llamas clear to auscultation and percussion. CARDIAC: Normal S1, S2 with no gallops. No murmurs ABDOMEN: Soft. Bowel sounds normal. No organomegaly. No abdominal bruits. Extremities: reveal no edema. No clubbing or cyanosis Neurologically awake, alert, oriented x3 with well-coordinated movements. No focal deficits noted Skin: No rash or skin lesions. Psychiatric: Coperative. Nonsuicidal Musculoskeletal: No joint swelling or deformity. Normal range of motion. - Labs CBC & Chem 7: 08/01/17 07:59 08/01/17 07:59 Labs: Abnormal Lab Results - Last 24 Hours (Table) 08/01/17 08/01/17 Range/Units 07:59 07:59 RBC 4.03 L (4.30-5.90) m/uL Hgb 12.2 L D (13.0-17.5) gm/dL Plt Count 101 L (150-450) k/uL BUN 5 L (9-20) mg/dL Magnesium 1.3 L (1.6-2.3) mg/dL Assessment and Plan Assessment: Nausea vomiting abdominal pain likely due to gastritis/alcohol related Hematemesis. Resolved. We will monitor H&H. Hemoglobin 16.0 --12 now Severe alcohol abuse Acute alcohol intoxication on admission Hypokalemia and hypomagnesemia Elevated liver enzymes possible alcoholic hepatitis Hypertension GERD Osteoarthritis History of seizure disorder Operative sleep apnea not on CPAP at home History of spinal stenosis with back surgery and chronic back pain. hemorrhoids Plan: Patient will be continued on IV fluids/time in/multivitamins. Continue with Protonix and monitor H&H. Monitor for alcohol withdrawal symptoms. Currently the pain management with [facility]. Alcohol abuse has been counseled extensively. Patient does want to go to rehab program. Otherwise continue with current management and further recommendations based on the clinical course.
--- NOTE | 2017-08-03 00:52 | P.DS ---
Providers Date of admission: 07/28/17 14:07 Expected date of discharge: 08/02/17 Attending physician: Aida Arias Consults: 08/01/17 07:12 Consult Physician Routine Consulting Provider: Bridgette Alexander Consult Reason/Comments: abdominal pain Do you want consulting provider notified?: Yes Primary care physician: Veena Bynum Hospital Course: Discharge diagnosis Nausea vomiting abdominal pain likely due to gastritis/alcohol related. Improved abdominal pain. Hematemesis. Resolved. Hemoglobin 16.0 --12 now Severe alcohol abuse Acute alcohol intoxication on admission Hypokalemia and hypomagnesemia Elevated liver enzymes possible alcoholic hepatitis Hypertension GERD Osteoarthritis History of seizure disorder Operative sleep apnea not on CPAP at home History of spinal stenosis with back surgery and chronic back pain. hemorrhoids. Hospital course Patient is a 42-year-old male with a known history of hypertension, alcohol abuse, obstructive sleep apnea came to ER with complaints of abdominal pain and nausea vomiting. Patient was also found have blood in the emesis. 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 No complaints of chest pain or shortness of breath. No fever no chills. Patient does take Aleve for his back pain occasionally. Denied any diarrhea. No numbness no tingling. No headache or dizziness or lightheadedness. Patient denied any recent endoscopy. No recent illnesses. 05/27/2018 Patient is still complaining of not feeling well and epigastric abdominal discomfort. Nauseated still. Unable to tolerate oral diet. Otherwise no acute overnight issues. Continued on telemetry monitoring and monitor for alcohol withdrawal symptoms. Patient does have hypomagnesemia which is being replaced, 05/28/2018 Patient is still lethargic and says not feeling well. Not able to tolerate oral diet completely. Does have nausea. Mainly she is being replaced. Otherwise no fever no chills. No chest pain no shortness of breath. Positive epigastric abdominal discomfort 05/29/2018 Patient says that he is not feeling very well. Magnesium is being replaced. Otherwise normal lites. No fever no chills. Continue to monitor for alcohol withdrawal symptoms. Anticipate discharge in next 24 hours. 07/31/2017 Patients condition is about the same. Still unable to tolerate diet and nauseated. No constipation. Still having epigastric abdominal discomfort. We will consult GI for further evaluation. No fever no chills otherwise no acute overnight issues. 08/01/2017 Patient's abdominal pain is better today. Able to sit on the side of the bed. Tolerating oral diet slowly. Epigastric pain is improving. Gas and urology has been consulted otherwise. No acute overnight issues. Patient denied any dark colored stools. 08/02/2017 Patient denied any worsening abdominal pain today. Tolerating oral diet slowly. Otherwise patient did have EGD on 07/13/2017 which showed 1. Gastritis involving the proximal body of the stomach but no active upper GI bleed. 2. No evidence of esophagitis or peptic ulcer disease. GI is not planning for surgical interventions at this time. No more hematemesis while in the hospital. Otherwise patient is stable to be discharged home and follow with primary care physician 1-2 days. Repeat lab workup was ordered. Denied any hematemesis or dark stools. Patient was counseled extensively for alcohol abuse. Discharge physical examination was done and vitals reviewed. Patient Condition at Discharge: Stable Plan - Discharge Summary Discharge Rx Participant: Yes New Discharge Prescriptions: New Folic Acid 1 mg PO 1200 #30 tab Hydrocortisone Suppository [Anusol-Hc] 25 mg RECTAL BID PRN #7 supp PRN Reason: Pain Pantoprazole [Protonix] 40 mg PO DAILY #30 tablet. Thiamine [Vitamin B-1] 100 mg PO BID@1200,1700 #30 tab Magnesium Oxide 400 mg PO BID 7 Days #14 tablet LORazepam [Ativan] 0.5 mg PO TID PRN #20 tab PRN Reason: Anxiety Ondansetron Odt [Zofran Odt] 4 mg PO Q8HR PRN #20 tab PRN Reason: Nausea Continue Atenolol [Tenormin] 100 mg PO DAILY Losartan [Cozaar] 25 mg PO DAILY tab Gabapentin [Neurontin] 100 mg PO TID #90 cap traZODone HCL [Desyrel] 200 mg PO HS #60 tab Calcium Carbonate [Tums] 1,000 mg PO BID-W/MEALS PRN PRN Reason: Heartburn Loratadine [Claritin] 10 mg PO HS PARoxetine [Paxil] 10 mg PO DAILY #30 tab Discontinued Folic Acid 1 mg PO DAILY #30 tablet Pantoprazole [Protonix] 40 mg PO BID tab Thiamine [Vitamin B-1] 100 mg PO BID@1200,1700 tab Potassium Chloride ER [K-Dur 20] 20 meq PO BID #30 tab Discharge Medication List Atenolol [Tenormin] 100 mg PO DAILY 12/29/16 [History] Losartan [Cozaar] 25 mg PO DAILY tab 12/30/16 [Rx] Gabapentin [Neurontin] 100 mg PO TID #90 cap 01/09/17 [Rx] traZODone HCL [Desyrel] 200 mg PO HS #60 tab 01/09/17 [Rx] Calcium Carbonate [Tums] 1,000 mg PO BID-W/MEALS PRN 07/12/17 [History] Loratadine [Claritin] 10 mg PO HS 07/12/17 [History] PARoxetine [Paxil] 10 mg PO DAILY #30 tab 07/15/17 [Rx] Folic Acid 1 mg PO 1200 #30 tab 07/29/17 [Rx] Hydrocortisone Suppository [Anusol-Hc] 25 mg RECTAL BID PRN #7 supp 07/29/17 [Rx ] Magnesium Oxide 400 mg PO BID 7 Days #14 tablet 07/29/17 [Rx] Pantoprazole [Protonix] 40 mg PO DAILY #30 tablet. 07/29/17 [Rx] Thiamine [Vitamin B-1] 100 mg PO BID@1200,1700 #30 tab 07/29/17 [Rx] LORazepam [Ativan] 0.5 mg PO TID PRN #20 tab 08/02/17 [Rx] Ondansetron Odt [Zofran Odt] 4 mg PO Q8HR PRN #20 tab 08/02/17 [Rx] Follow up Appointment(s)/Referral(s): 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 Activity as tolerated. NO ALCOHOL, references provided and discharged to rehab facility. Discharge Disposition: HOME SELF-CARE
== END 2017-08-02 12:57 | disposition home or self-care (01) | DRG 378 ==
LOC: EC 06:11 → 3OBS 12:21 → OBSVTOIN 07-28 14:07 → 4MS4W 07-28 22:02
PROVIDERS: ADMIT Hospitalist; ATTEND Hospitalist
DX: K29.21 Alcoholic gastritis with bleeding (principal); F10.239 Alcohol dependence with withdrawal, unspecified; E83.42 Hypomagnesemia; K70.10 Alcoholic hepatitis without ascites; E87.6 Hypokalemia; I10 Essential (primary) hypertension; K21.9 Gastro-esophageal reflux disease without esophagitis; M19.91 Primary osteoarthritis, unspecified site; G47.33 Obstructive sleep apnea (adult) (pediatric); K64.9 Unspecified hemorrhoids; F32.9 Major depressive disorder, single episode, unspecified; F41.9 Anxiety disorder, unspecified; G89.29 Other chronic pain; M54.9 Dorsalgia, unspecified; G40.909 Epilepsy, unspecified, not intractable, without status epilepticus; F10.229 Alcohol dependence with intoxication, unspecified; Y90.6 Blood alcohol level of 120-199 mg/100 ml; Z79.899 Other long term (current) drug therapy; Z87.01 Personal history of pneumonia (recurrent); Z88.1 Allergy status to other antibiotic agents; Z88.8 Allergy status to other drugs, medicaments and biological substances
CPT/HCPCS: 36415; 80048; 80053; 80320; 82271; 83735; 85025; 85610; 85730; 96361; 96365; 96366; 96368; 96375; 96376; 99284

== ENCOUNTER 2017-10-22 09:20 | Inpatient (IN) | payer OTHER ==
[2017-10-22] MEDS ORDERED: SODIUM CHLORIDE 0.9% 1,000 ML IV STA (10:03)
[2017-10-22 10:30] LABS: Basophils % (A) 0 %; Eosinophils % (A) 0 %; HCT 49.2 % (39.0-53.0); HGB 16.2 gm/dL (13.0-17.5); Lymphocytes # (A) 2.6 k/uL (1.0-4.8); Lymphocytes % (A) 33 %; MCH 29.9 pg (25.0-35.0); MCHC 32.9 g/dL (31.0-37.0); MCV 90.8 fL (80.0-100.0); Mean Platelet Volume 7.3; Monocytes # (A) 0.2 k/uL (0-1.0); Monocytes % (A) 3 %; Neutrophils % (A) 62 %; Platelet Count 347 k/uL (150-450); RBC 5.42 m/uL (4.30-5.90); RDW 14.1 % (11.5-15.5); WBC 7.9 k/uL (3.8-10.6)
[2017-10-22] MEDS ORDERED: ONDANSETRON 4 MG/2 ML VIAL IVP STA ×2 (10:34→12:56)
[2017-10-22] MEDS ORDERED: IPRATROPIUM-ALBUTEROL 3 ML NEB INHALATION STA (10:34)
[2017-10-22 10:42] LABS: ALT 15 U/L (21-72); AST 57 U/L (17-59); Albumin 5.1 g/dL (3.5-5.0); Alkaline Phosphatase 79 U/L (38-126); Amylase 68 U/L (30-110); Anion Gap 32 mmol/L; Blood Urea Nitrogen 15 mg/dL (9-20); Calcium 9.1 mg/dL (8.4-10.2); Carbon Dioxide 18 mmol/L (22-30); Chloride 92 mmol/L (98-107); Glucose 78 mg/dL (74-99); Lipase 71 U/L (23-300); Magnesium 1.6 mg/dL (1.6-2.3); Potassium 4.6 mmol/L (3.5-5.1); Sodium 142 mmol/L (137-145); Total Bilirubin 0.8 mg/dL (0.2-1.3); Total Protein 7.9 g/dL (6.3-8.2)
--- NOTE | 2017-10-22 10:51 | ED ---
URI HPI - General Chief Complaint: Upper Respiratory Infection Stated Complaint: Alcohol, Congested Time Seen by Provider: 10/22/17 10:03 Source: patient, RN notes reviewed, old records reviewed Mode of arrival: ambulatory Limitations: no limitations - History of Present Illness Initial Comments: 42-year-old male with history of alcoholism presents with upper respiratory infection cough and congestion and chest pain for one week. Patient reports that he's had a productive cough. He states that he increased his alcohol intake within the past week. He states that he's trying to help quit. He states he cannot quit on his own. His friends dropped him off here. He states that he has had no fever or chills. Complains of sinus congestion. He states is been having a lot of vomiting and nausea.Patient denies any recent fever, chills, shortness of breath, chest pain, back pain, numbness or tingling, dysuria or hematuria, constipation or diarrhea, headaches or visual changes, or any other current symptoms - Related Data Home Medications Medication Instructions Recorded Confirmed Atenolol [Tenormin] 100 mg PO DAILY 12/29/16 10/22/17 Calcium Carbonate [Tums] 1,000 mg PO BID-W/MEALS PRN 07/12/17 10/22/17 Loratadine [Claritin] 10 mg PO HS 07/12/17 10/22/17 Previous Rx's Medication Instructions Recorded Losartan [Cozaar] 25 mg PO DAILY tab 12/30/16 Gabapentin [Neurontin] 100 mg PO TID #90 cap 01/09/17 traZODone HCL [Desyrel] 200 mg PO HS #60 tab 01/09/17 PARoxetine [Paxil] 10 mg PO DAILY #30 tab 07/15/17 Folic Acid 1 mg PO 1200 #30 tab 07/29/17 Hydrocortisone Suppository 25 mg RECTAL BID PRN #7 supp 07/29/17 [Anusol-Hc] Magnesium Oxide 400 mg PO BID 7 Days #14 tablet 07/29/17 Pantoprazole [Protonix] 40 mg PO DAILY #30 tablet. 07/29/17 Thiamine [Vitamin B-1] 100 mg PO BID@1200,1700 #30 tab 07/29/17 LORazepam [Ativan] 0.5 mg PO TID PRN #20 tab 08/02/17 Ondansetron Odt [Zofran Odt] 4 mg PO Q8HR PRN #20 tab 08/02/17 Allergies Allergy/AdvReac Type Severity Reaction Status Date / Time Cephalosporins Allergy Severe Anaphylaxis Verified 10/22/17 09:43 diphenhydramine HCl Allergy Severe Anaphylaxis Verified 10/22/17 09:43 [From Benadryl] divalproex sodium Allergy Severe Anaphylaxis Verified 10/22/17 09:43 [From Depakote] ceftriaxone [From Rocephin] Allergy Unknown Verified 10/22/17 09:43 cephalexin [From Keflex] Allergy Unknown Verified 10/22/17 09:43 lisinopril Allergy Unknown Verified 10/22/17 09:43 Review of Systems ROS Statement: Those systems with pertinent positive or pertinent negative responses have been documented in the HPI. ROS Other: All systems not noted in ROS Statement are negative. Past Medical History Past Medical History: GERD/Reflux, Hypertension, Osteoarthritis (OA), Pneumonia , Seizure Disorder, Sleep Apnea/CPAP/BIPAP Additional Past Medical History / Comment(s): Alcoholism, ETOH withdrawals, mild alcohol hepatitis, upper GI bleed, gastritis, had episode of "fainting" 1 yrs ago and told he had a seizurepossible alcoholic seizures/blackouts, bilateral varicose veins, spinal stenosis with surgery, herniated disc, MILIND no CPAP, hemorrhoids. History of Any Multi-Drug Resistant Organisms: None Reported Past Surgical History: Appendectomy, Tonsillectomy Additional Past Surgical History / Comment(s): 07/13/17 EGD, 4-7-16 LAMINECTOMY, bilateral DISCETOMY L5-S1. Past Anesthesia/Blood Transfusion Reactions: Motion Sickness Past Psychological History: Anxiety, Depression Smoking Status: Never smoker Past Alcohol Use History: Abuse, Heavy Past Drug Use History: Marijuana - Past Family History Father Family Medical History: Cancer, Dementia Additional Family Medical History / Comment(s): melanoma, parkinsons Mother Family Medical History: Hypertension, Musculoskeletal Disorder, Neurologic Disorder, Osteoarthritis (OA) Additional Family Medical History / Comment(s): . Had some motor neuron disease General Exam - General Exam Comments Initial Comments: 42-year-old male. Alert. No distress. Limitations: no limitations General appearance: alert, in no apparent distress Head exam: Present: atraumatic, normocephalic, normal inspection Eye exam: Present: normal appearance, PERRL, EOMI. Absent: scleral icterus, conjunctival injection, periorbital swelling ENT exam: Present: normal exam, mucous membranes moist. Absent: normal oropharynx (Erythema) Neck exam: Present: normal inspection. Absent: tenderness, meningismus, lymphadenopathy Respiratory exam: Present: wheezes (Mild wheeze). Absent: respiratory distress , rales, rhonchi, stridor Cardiovascular Exam: Present: regular rate, normal rhythm, normal heart sounds. Absent: systolic murmur, diastolic murmur, rubs, gallop, clicks GI/Abdominal exam: Present: soft, tenderness (Epigastric tenderness), normal bowel sounds. Absent: distended, guarding, rebound, rigid Extremities exam: Present: normal inspection, full ROM, normal capillary refill. Absent: tenderness, pedal edema, joint swelling, calf tenderness Back exam: Present: normal inspection Neurological exam: Present: alert, oriented X3, CN II-XII intact Psychiatric exam: Present: normal affect Skin exam: Present: warm, dry, intact, normal color. Absent: rash Course Vital Signs 10/22/17 10/22/17 10/22/17 09:25 10:47 10:54 Temperature 98.0 F Pulse Rate 118 H 106 H 106 H Respiratory 20 Rate Blood Pressure 174/94 O2 Sat by Pulse 98 Oximetry 10/22/17 13:03 Temperature Pulse Rate 109 H Respiratory 18 Rate Blood Pressure 146/76 O2 Sat by Pulse 99 Oximetry Medical Decision Making - Medical Decision Making 42-year-old male presents with history of alcohol some complaints of upper respiratory congestion for 2 weeks. Claims chest pain for one week. EKG was reviewed sinus tachycardia and nonspecific T-wave abnormality noted. Negative troponin. Chest x-ray was read normal. He did have some mild wheezing. Was given albuterol treatment. Is having some improvement. Patient also claims nausea. He also states that he's here for seeking help with withdrawals. He denies any fever or chills. When patient was reevaluated he continued have some vomiting and nausea. He states he is concerned with eating discharged at his multiple draws and concern for safety. Discussed doesn't quite meet admission criteria. Alcohol level was 202. Patient states he cannot be safe at take him home. I discussed that he'll observe the patient overnight for bronchitis, adn etoh withdrawals. - Lab Data Result diagrams: 10/22/17 09:38 10/22/17 09:38 Lab Results 10/22/17 10/22/17 10/22/17 Range/Units 09:38 09:38 09:38 WBC 7.9 (3.8-10.6) k/uL RBC 5.42 (4.30-5.90) m/uL Hgb 16.2 (13.0-17.5) gm/dL Hct 49.2 (39.0-53.0) % MCV 90.8 (80.0-100.0) fL MCH 29.9 (25.0-35.0) pg MCHC 32.9 (31.0-37.0) g/dL RDW 14.1 (11.5-15.5) % Plt Count 347 (150-450) k/uL Neutrophils % 62 % Lymphocytes % 33 % Monocytes % 3 % Eosinophils % 0 % Basophils % 0 % Neutrophils # 5.0 (1.3-7.7) k/uL Lymphocytes # 2.6 (1.0-4.8) k/uL Monocytes # 0.2 (0-1.0) k/uL Eosinophils # 0.0 (0-0.7) k/uL Basophils # 0.0 (0-0.2) k/uL PT (9.0-12.0) sec INR (<1.2) APTT (22.0-30.0) sec Sodium 142 (137-145) mmol/L Potassium 4.6 (3.5-5.1) mmol/L Chloride 92 L (98-107) mmol/L Carbon Dioxide 18 L (22-30) mmol/L Anion Gap 32 mmol/L BUN 15 (9-20) mg/dL Creatinine 0.90 (0.66-1.25) mg/dL Est GFR (CKD-EPI)AfAm >90 (>60 ml/min/1.73 sqM) Est GFR (CKD-EPI)NonAf >90 (>60 ml/min/1.73 sqM) Glucose 78 (74-99) mg/dL Calcium 9.1 (8.4-10.2) mg/dL Magnesium 1.6 (1.6-2.3) mg/dL Total Bilirubin 0.8 (0.2-1.3) mg/dL AST 57 (17-59) U/L ALT 15 L (21-72) U/L Alkaline Phosphatase 79 (38-126) U/L Total Creatine Kinase 96 (55-170) U/L CK-MB (CK-2) 1.7 (0.0-2.4) ng/mL CK-MB (CK-2) Rel Index 1.8 Troponin I <0.012 (0.000-0.034) ng/mL NT-Pro-B Natriuret Pep pg/mL Total Protein 7.9 (6.3-8.2) g/dL Albumin 5.1 H (3.5-5.0) g/dL Amylase 68 (30-110) U/L Lipase 71 (23-300) U/L 10/22/17 10/22/17 Range/Units 09:38 09:38 WBC (3.8-10.6) k/uL RBC (4.30-5.90) m/uL Hgb (13.0-17.5) gm/dL Hct (39.0-53.0) % MCV (80.0-100.0) fL MCH (25.0-35.0) pg MCHC (31.0-37.0) g/dL RDW (11.5-15.5) % Plt Count (150-450) k/uL Neutrophils % % Lymphocytes % % Monocytes % % Eosinophils % % Basophils % % Neutrophils # (1.3-7.7) k/uL Lymphocytes # (1.0-4.8) k/uL Monocytes # (0-1.0) k/uL Eosinophils # (0-0.7) k/uL Basophils # (0-0.2) k/uL PT 9.6 (9.0-12.0) sec INR 1.0 (<1.2) APTT 21.5 L (22.0-30.0) sec Sodium (137-145) mmol/L Potassium (3.5-5.1) mmol/L Chloride (98-107) mmol/L Carbon Dioxide (22-30) mmol/L Anion Gap mmol/L BUN (9-20) mg/dL Creatinine (0.66-1.25) mg/dL Est GFR (CKD-EPI)AfAm (>60 ml/min/1.73 sqM) Est GFR (CKD-EPI)NonAf (>60 ml/min/1.73 sqM) Glucose (74-99) mg/dL Calcium (8.4-10.2) mg/dL Magnesium (1.6-2.3) mg/dL Total Bilirubin (0.2-1.3) mg/dL AST (17-59) U/L ALT (21-72) U/L Alkaline Phosphatase (38-126) U/L Total Creatine Kinase (55-170) U/L CK-MB (CK-2) (0.0-2.4) ng/mL CK-MB (CK-2) Rel Index Troponin I (0.000-0.034) ng/mL NT-Pro-B Natriuret Pep <11 pg/mL Total Protein (6.3-8.2) g/dL Albumin (3.5-5.0) g/dL Amylase (30-110) U/L Lipase (23-300) U/L 10/22/17 11:34 EKG shows sinus x-ray nonspecific abnormality. Abnormal EKG noted. Ventricularly of 101.. Reveals 166. QRS ration 110. QT QTc is 384/4 and 97. - Radiology Data Radiology results: report reviewed Chest x-ray was reviewed and negative for any acute process. Disposition Clinical Impression: Bronchitis, Alcohol intoxication, Intractable nausea and vomiting Disposition: ADMITTED IP TO THIS HOSP Condition: Stable Is patient prescribed a controlled substance at d/c from ED?: No If prescribed controlled substance>3 days was MAPS reviewed?: No When asked, does pt state using other controlled substances?: No Referrals: Veena Bynum DO [Primary Care Provider] - 1-2 days Time of Disposition: 13:11
[2017-10-22 10:55] LABS: Creatine Kinase 96 U/L (55-170)
[2017-10-22 10:58] LABS: Prothrombin Time 9.6 sec (9.0-12.0)
[2017-10-22 11:08] LABS: Creatine Kinase MB 1.7 ng/mL (0.0-2.4); Troponin I <0.012 ng/mL (0.000-0.034)
[2017-10-22 11:15] LABS: Partial Thromboplastin Time 21.5 sec (22.0-30.0)
--- NOTE | 2017-10-22 11:18 | XR ---
EXAMINATION TYPE: XR chest 2V DATE OF EXAM: 10/22/2017 COMPARISON: 09/17/2016 TECHNIQUE: PA and lateral views submitted. HISTORY: Chest pain FINDINGS: The lungs are clear and there is no pneumothorax, pleural effusion, or focal pneumonia. Hypertrophi c and degenerative changes spine. Biapical pleural thickening. No overt failure. IMPRESSION: 1. No acute process.
[2017-10-22] MEDS ORDERED: chlordiazePOXIDE 25 MG CAP PO STA (12:48)
[2017-10-22] MEDS ORDERED: IBUPROFEN 400 MG TAB PO PRN (13:15)
[2017-10-22] MEDS ORDERED: ACETAMINOPHEN TAB 325 MG TAB PO PRN (13:15)
[2017-10-22] MEDS ORDERED: NALOXONE 0.4 MG/ML 1 ML VIAL IV PRN (13:15)
[2017-10-22] MEDS ORDERED: LORazepam 2 MG/ML INJ IV PRN (13:17)
[2017-10-22] MEDS ORDERED: THIAMINE 100 MG/ML 2 ML VIAL IM STA (13:17)
[2017-10-22] MEDS ORDERED: AZITHROMYCIN 500 MG TAB PO STA (13:19)
[2017-10-22] MEDS ORDERED: IPRATROPIUM-ALBUTEROL 3 ML NEB INHALATION PRN (13:20)
[2017-10-22] MEDS: SODIUM CHLORIDE 0.9% 1,000 ML IV SCH (14:11)
[2017-10-22] MEDS: ONDANSETRON 4 MG/2 ML VIAL IVP PRN ×2 (15:48→23:32)
[2017-10-22] MEDS: LORazepam 2 MG/ML INJ IV PRN ×4 (15:48→23:28)
[2017-10-22] MEDS: KETOROLAC 30 MG/ML 1 ML VIAL IVP PRN (20:30)
[2017-10-22] MEDS ORDERED: HYDROCORTISONE SUPPOSITORY 25 MG SUPP RECTAL PRN (23:24)
[2017-10-22] MEDS ORDERED: CALCIUM CARBONATE 500 MG CHEWABLE PO PRN (23:24)
--- NOTE | 2017-10-23 00:05 | HP ---
HISTORY AND PHYSICAL CHIEF COMPLAINTS: Alcohol withdrawal. and cough and sputum. HISTORY OF PRESENT ILLNESS: This 42-year-old gentleman with a past medical history of multiple medical problems, including GERD, hypertension, DJD, history of pneumonia, seizure disorder, history of alcoholism was drinking up to a fifth of alcohol. The last drink was about yesterday, according to the patient. The patient had increasing shortness of breath and cough for the past 1 week. Because of increasing difficulty, the patient came to [facility] and was admitted for further evaluation and treatment. A chest x-ray done on admission showed no active process at this time. The patient is tremulous and mildly confused. Patient is on CIWA protocol. There is no history any headache, loss of consciousness, chest pain, palpitation at this time. PAST MEDICAL HISTORY: Hypertension, DJD, history of pneumonia, seizure disorder, alcoholism. MEDICATIONS PRIOR TO ADMISSION: Include home medications are: 1. Trazodone 200 mg p.o. q.h.s. 2. Vitamin B1 100 mg p.o. b.i.d. 3. Protonix 40 mg b.i.d. 4. Paxil 10 mg daily. 5. Zofran 4 mg q.8h p.r.n. 6. Magnesium oxide 400 mg b.i.d. 7. Cozaar 25 mg b.i.d. 8. Claritin 10 mg q.h.s. 9. Ativan 0.5 mg t.i.d. p.r.n. 10.Anusol 25 mg rectally b.i.d. p.r.n. 11.Neurontin 100 mg p.o. t.i.d. 12.Folic acid 1 mg daily. 13.Tums 1000 mg b.i.d. with meals. 14.Tenormin 100 mg p.o. daily. ALLERGIES: CEPHALOSPORINS, BENADRYL, DEPAKOTE, ROCEPHIN, KEFLEX and LISINOPRIL. FAMILY HISTORY: History of cancer, dementia, melanoma, Parkinson's. SOCIAL HISTORY: History of alcohol. No history of smoking. REVIEW OF SYSTEMS: ENT: No diminished hearing, diminished vision. CARDIOVASCULAR: No angina, palpitations. RESPIRATORY: As mentioned earlier. GI: No nausea or vomiting. : No dysuria. NERVOUS: No numbness or weakness. ALLERGY/IMMUNOLOGY: No asthma or hay fever. MUSCULOSKELETAL: As mentioned earlier. HEMATOLOGY/ONCOLOGY: No history of anemia. ENDOCRINE: No history of diabetes, hypothyroidism. CONSTITUTIONAL: As mentioned earlier. DERMATOLOGY: Negative. RHEUMATOLOGY: Negative. PSYCHIATRY: As mentioned earlier. PHYSICAL EXAMINATION: Alert and oriented x3. Pulse is 94, blood pressure 142/83, respirations 16, temperature 98.2, pulse ox 98% on room air. HEENT: Conjunctivae normal. Oral mucosa moist. NECK: No jugular venous distention. No carotid bruits. No lymph node enlargement. CARDIOVASCULAR: S1, S2 muffled. No S3, S4. RESPIRATORY: Breath sounds diminished in the bases. A few scattered rhonchi. No crackles. ABDOMEN: Soft, nontender. No mass palpable. LEGS: No edema. No swelling. NERVOUS SYSTEM: Higher functions as mentioned earlier. Moves all 4 limbs. Mild diffuse tremors. Mild diffuse weakness. LYMPHATIC: No lymphadenopathy in neck or axillae. SKIN: No ulcer, rash or bleeding. LABS: WBC 7.8, hemoglobin 16.2. Sodium 142, potassium 4.6. ASSESSMENT: 1. Acute alcohol withdrawal and delirium tremens. 2. Acute purulent tracheobronchitis. 3. Hypertension. 4. Degenerative joint disease. 5. History of seizure disorder. 6. History of pneumonia. 7. History of EtOH withdrawal. 8. History of anxiety. Depression. RECOMMENDATIONS AND DISCUSSION: In this is a 42-year-old gentleman who presented with multiple complex medical issues, we will monitor the patient closely, continue the current medical management and symptomatic treatment, CIWA protocol, empiric antibiotics. Resume the home medications. Guarded prognosis because of multiple complex medical issues. Further recommendations to follow. I would also recommend a psych evaluation as well. MMODL / IJN: [id number] /
[2017-10-23] MEDS: LOPERAMIDE 2 MG CAP PO PRN (00:57)
[2017-10-23] MEDS: traZODone HCL 100 MG TAB PO SCH ×2 (00:57→21:08)
[2017-10-23] MEDS: LORazepam 2 MG/ML INJ IV PRN ×5 (03:27→21:21)
[2017-10-23] MEDS: KETOROLAC 30 MG/ML 1 ML VIAL IVP PRN ×3 (03:29→18:47)
[2017-10-23] MEDS: SODIUM CHLORIDE 0.9% 1,000 ML IV SCH ×3 (05:24→15:14)
[2017-10-23 08:00] LABS: Appearance,Urine Clear (Clear); Bilirubin,Urine Negative (Negative); Blood,Urine Negative (Negative); Color,Urine Yellow; Glucose,Urine (UA) Negative (Negative); Hyaline Casts,Urine 1 /lpf (0-2); Ketones,Urine 2+ (Negative); Leukocyte Esterase,Urine Negative (Negative); Mucus,Urine Many /hpf; Nitrite,Urine Negative (Negative); PH, Urine 6.5 (5.0-8.0); Protein,Urine 1+ (Negative); RBC,Urine <1 /hpf (0-5); Specific Gravity,Urine 1.026 (1.001-1.035); Squamous Epithelial Cell,Urine 1 /hpf (0-4); WBC,Urine 1 /hpf (0-5)
[2017-10-23] MEDS: ONDANSETRON 4 MG/2 ML VIAL IVP PRN (08:10)
[2017-10-23] MEDS: MAGNESIUM OXIDE 400 MG TAB PO SCH ×2 (08:11→21:08)
[2017-10-23] MEDS: LOSARTAN 25 MG TAB PO SCH (08:11)
[2017-10-23] MEDS: GABAPENTIN 100 MG CAP PO SCH ×3 (08:11→21:09)
[2017-10-23] MEDS: PARoxetine 10 MG TAB PO SCH (08:12)
[2017-10-23 08:47] LABS: Basophils % (A) 0 %; Eosinophils % (A) 1 %; HCT 40.7 % (39.0-53.0); HGB 13.7 gm/dL (13.0-17.5); Lymphocytes # (A) 1.5 k/uL (1.0-4.8); Lymphocytes % (A) 27 %; MCH 30.3 pg (25.0-35.0); MCHC 33.7 g/dL (31.0-37.0); MCV 89.7 fL (80.0-100.0); Mean Platelet Volume 6.8; Monocytes # (A) 0.3 k/uL (0-1.0); Monocytes % (A) 5 %; Neutrophils # (A) 3.4 k/uL (1.3-7.7); Neutrophils % (A) 65 %; Platelet Count 183 k/uL (150-450); RBC 4.54 m/uL (4.30-5.90); RDW 13.9 % (11.5-15.5); WBC 5.3 k/uL (3.8-10.6)
[2017-10-23 08:58] LABS: Anion Gap 11 mmol/L; Blood Urea Nitrogen 15 mg/dL (9-20); Calcium 8.1 mg/dL (8.4-10.2); Carbon Dioxide 28 mmol/L (22-30); Chloride 99 mmol/L (98-107); Glucose 91 mg/dL (74-99); Potassium 3.8 mmol/L (3.5-5.1); Sodium 138 mmol/L (137-145)
[2017-10-23] MEDS ORDERED: NON-FORMULARY DRUG (Atenolol [Tenormin] 100 MG) PO SCH (09:00)
[2017-10-23] MEDS ORDERED: PANTOPRAZOLE 40 MG/10 ML VIAL IV SCH (09:00)
[2017-10-23] MEDS: THIAMINE 100 MG TAB PO SCH ×2 (10:57→15:14)
[2017-10-23] MEDS: FOLIC ACID 1 MG TAB PO SCH (10:57)
[2017-10-23] MEDS: ATENOLOL 50 MG TAB PO SCH (12:40)
--- NOTE | 2017-10-23 14:19 | P.CN ---
Psychiatric Consult - . Consult date: 10/23/17 Consult:: 10/23/17 14:10 Patient was seen for a psych consult regarding "substance abuse, ETOH daily". Patient is here since he has been having cough congestion etc. Patient has an extensive history of abusing alcohol. He was recently in that rehab about 2 months ago. But, he started to drink alcohol again. He says he drinks vodka on a daily basis. 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 He also said he is still grieving his mother and friend's which happened long time ago. He also reports of getting anxious when things don't go well. He denies other psychiatric symptoms. He denies abusing drugs except for smoking pot. He was raised as Protestant, but, he has not been going to voodoo. This is an overweight ambulatory white male with adequate hygiene. He is polite and cooperative. He does not show any psychomotor agitation or retardation. His speech is spontaneous and goal-directed. His mood is dull and affect is constricted to appropriate. He denies hallucinations and delusional thinking. He denies suicide and homicide thoughts. He is well oriented with adequate memory concentration etc. His insight appears to be adequate. But, his judgment appears to be impaired as evidenced by continued alcohol abuse. Assessment: Alcohol use disorder severe F 10.20 Cannabis use disorder moderate to severe F 12.20. History of unresolved grief and anxiety. Suggestion: Patient appreciates our referring him to the rehab. He thinks he would rather have outpatient rehab. Patient was advised and agreed to get involved with voodoo activities and the counseling through the voodoo regarding his unresolved grief, to get more involved with voodoo activities to keep himself busy and away from alcohol, to explore getting into yoga or rose chi to help him with his anxiety symptoms in addition to voodoo counseling.
[2017-10-23] MEDS: LORATADINE 10 MG TAB PO SCH (21:08)
--- NOTE | 2017-10-23 23:48 | PN ---
PROGRESS NOTE DATE OF SERVICE: 10/23/2017 This 42-year-old gentleman admitted with alcohol withdrawal and acute bronchitis, is being closely monitored. Psychiatry has seen the patient seen the patient, recommended rehab. No chest pain. No palpitations. No fever. EXAM: Alert and oriented x3. Pulse 73, blood pressure 117/70, respirations 18, temperature 98.8, pulse ox 99% on room air. HEENT: Conjunctivae normal. NECK: No jugular venous distention. CARDIOVASCULAR: S1, S2 muffled. RESPIRATORY: Breath sounds diminished in the bases. No rhonchi. No crackles. ABDOMEN: Soft, nontender. LEGS: No edema. NERVOUS SYSTEM: Nonfocal. LABS: CBC, BMP within normal limits. C. difficile is negative. ASSESSMENT: 1. Acute alcohol withdrawal and delirium tremens. 2. Acute purulent tracheobronchitis. 3. Hypertension. 4. Degenerative joint disease. 5. Seizure disorder. 6. Diarrhea. 7. History pneumonia. 8. History of EtOH withdrawal. 9. Anxiety, depression. RECOMMENDATIONS AND DISCUSSION: Recommendation continue current medical management and symptomatic treatment. Continue the CIWA protocol, Ativan. Increase ambulation. Further recommendations to follow. MMODL / IJN: [id number] /
[2017-10-24] MEDS: LORazepam 2 MG/ML INJ IV PRN ×5 (02:35→19:52)
[2017-10-24] MEDS: KETOROLAC 30 MG/ML 1 ML VIAL IVP PRN ×2 (06:01→15:41)
[2017-10-24] MEDS: ONDANSETRON 4 MG/2 ML VIAL IVP PRN ×2 (06:01→23:28)
[2017-10-24] MEDS: SODIUM CHLORIDE 0.9% 1,000 ML IV SCH ×3 (06:05→13:47)
[2017-10-24 08:13] LABS: Basophils % (A) 0 %; Eosinophils # (A) 0.1 k/uL (0-0.7); Eosinophils % (A) 1 %; HCT 39.5 % (39.0-53.0); HGB 12.9 gm/dL (13.0-17.5); Lymphocytes # (A) 1.2 k/uL (1.0-4.8); Lymphocytes % (A) 26 %; MCH 30.2 pg (25.0-35.0); MCHC 32.6 g/dL (31.0-37.0); MCV 92.6 fL (80.0-100.0); Mean Platelet Volume 7.7; Monocytes # (A) 0.2 k/uL (0-1.0); Monocytes % (A) 5 %; Neutrophils % (A) 67 %; Platelet Count 122 k/uL (150-450); RBC 4.26 m/uL (4.30-5.90); WBC 4.4 k/uL (3.8-10.6)
[2017-10-24 08:22] LABS: Anion Gap 8 mmol/L; Blood Urea Nitrogen 15 mg/dL (9-20); Calcium 8.2 mg/dL (8.4-10.2); Carbon Dioxide 28 mmol/L (22-30); Chloride 104 mmol/L (98-107); Glucose 89 mg/dL (74-99); Potassium 4.4 mmol/L (3.5-5.1); Sodium 140 mmol/L (137-145)
[2017-10-24] MEDS: LOSARTAN 25 MG TAB PO SCH (09:18)
[2017-10-24] MEDS: ATENOLOL 50 MG TAB PO SCH (09:18)
[2017-10-24] MEDS: MAGNESIUM OXIDE 400 MG TAB PO SCH ×2 (09:18→21:21)
[2017-10-24] MEDS: GABAPENTIN 100 MG CAP PO SCH ×3 (09:18→21:21)
[2017-10-24] MEDS: PANTOPRAZOLE 40 MG TABLET PO SCH (09:18)
[2017-10-24] MEDS: THIAMINE 100 MG TAB PO SCH ×2 (09:19→17:23)
[2017-10-24] MEDS: PARoxetine 10 MG TAB PO SCH (09:19)
[2017-10-24] MEDS: FOLIC ACID 1 MG TAB PO SCH (09:19)
[2017-10-24 14:34] VITALS: RESP 16
--- NOTE | 2017-10-24 16:45 | PN ---
PROGRESS NOTE DATE OF SERVICE: 10/24/2017 This 42-year-old gentleman who was admitted with alcohol withdrawal and delirium tremens is complaining of tiredness and weakness today. No chest pain. No palpitations. No fever. On exam, alert and oriented x3. Pulse is 70, blood pressure 132/68, respiration 16, temperature 98.2, pulse ox 96% on room air. HEENT: Conjunctivae normal. NECK: No jugular venous distention. CARDIOVASCULAR SYSTEM: S1, S2 muffled. RESPIRATORY SYSTEM: Breath sounds diminished at the bases. A few rhonchi. No crackles. ABDOMEN: Soft, non-tender. LEGS: No edema. No swelling. NERVOUS SYSTEM: No focal deficit. LABS: WBC 4.2, hemoglobin 12.9. ASSESSMENT: 1. Acute alcohol withdrawal and delirium tremens. 2. Acute purulent tracheobronchitis. 3. Hypertension. 4. Degenerative joint disease. 5. Seizure disorder. 6. Diarrhea, improved. 7. History of pneumonia. RECOMMENDATIONS AND DISCUSSION: I recommend to continue current medication, continue symptomatic treatment. Continue with antibiotics. Continue the bronchodilators. CIWA protocol. Further recommendations to follow. MMODL / IJN: [id number] /
[2017-10-24] MEDS: LOPERAMIDE 2 MG CAP PO PRN (19:56)
[2017-10-24] MEDS: traZODone HCL 100 MG TAB PO SCH (21:21)
[2017-10-24] MEDS: LORATADINE 10 MG TAB PO SCH (21:21)
[2017-10-25] MEDS: LORazepam 2 MG/ML INJ IV PRN ×3 (03:18→10:56)
[2017-10-25] MEDS: SODIUM CHLORIDE 0.9% 1,000 ML IV SCH ×2 (03:18→08:04)
[2017-10-25] MEDS: ONDANSETRON 4 MG/2 ML VIAL IVP PRN (06:55)
[2017-10-25 07:32] VITALS: BP 142/91; PULSE 80; TEMP 99.5
[2017-10-25 07:55] LABS: Basophils % (A) 0 %; Eosinophils # (A) 0.1 k/uL (0-0.7); Eosinophils % (A) 1 %; HCT 38.5 % (39.0-53.0); HGB 12.7 gm/dL (13.0-17.5); Lymphocytes # (A) 1.3 k/uL (1.0-4.8); Lymphocytes % (A) 16 %; MCH 30.3 pg (25.0-35.0); MCHC 33.1 g/dL (31.0-37.0); MCV 91.5 fL (80.0-100.0); Monocytes # (A) 0.2 k/uL (0-1.0); Monocytes % (A) 3 %; Neutrophils # (A) 6.5 k/uL (1.3-7.7); Neutrophils % (A) 79 %; Platelet Count 104 k/uL (150-450); RDW 13.9 % (11.5-15.5); WBC 8.2 k/uL (3.8-10.6)
[2017-10-25] MEDS: FOLIC ACID 1 MG TAB PO SCH (08:00)
[2017-10-25] MEDS: PARoxetine 10 MG TAB PO SCH (08:00)
[2017-10-25] MEDS: MAGNESIUM OXIDE 400 MG TAB PO SCH (08:00)
[2017-10-25] MEDS: THIAMINE 100 MG TAB PO SCH (08:00)
[2017-10-25] MEDS: ATENOLOL 50 MG TAB PO SCH (08:01)
[2017-10-25] MEDS: LOSARTAN 25 MG TAB PO SCH (08:01)
[2017-10-25] MEDS: PANTOPRAZOLE 40 MG TABLET PO SCH (08:01)
[2017-10-25] MEDS: GABAPENTIN 100 MG CAP PO SCH (08:01)
[2017-10-25 08:15] LABS: Anion Gap 10 mmol/L; Blood Urea Nitrogen 13 mg/dL (9-20); Calcium 8.4 mg/dL (8.4-10.2); Carbon Dioxide 26 mmol/L (22-30); Chloride 104 mmol/L (98-107); Glucose 90 mg/dL (74-99); Potassium 4.1 mmol/L (3.5-5.1); Sodium 140 mmol/L (137-145)
--- NOTE | 2017-10-25 12:26 | DS ---
DISCHARGE SUMMARY DATE OF SERVICE: 10/25/2017. FINAL DIAGNOSES: 1. Acute alcohol withdrawal and delirium tremens. 2. Acute purulent tracheobronchitis. 3. Hypertension. 4. Degenerative joint disease. 5. Seizure disorder. 6. Diarrhea, improved. 7. History of pneumonia. DISCHARGE DISPOSITION: The patient will be discharged in stable condition with guarded prognosis. HISTORY OF PRESENT ILLNESS: This 42-year-old gentleman with past medical history of multiple medical problems was admitted with acute alcohol withdrawal and delirium tremens. Patient treated symptomatically. Patient improved significantly. Patient will be discharged home in stable condition with guarded prognosis. DISCHARGE ADVICE AND MEDICATIONS: 1. Diet is cardiac. 2. Activity limited until follow up. 3. Follow up with Dr. Bynum in 2-3 days. 4. Alcohol rehab, to attend AA meetings. MEDICATIONS: 1. Tylenol 650 q.6h p.r.n. 2. Tenormin 100 mg p.o. daily. 3. Tums 1000 mg b.i.d. p.r.n. 4. Folic acid 1 mg p.o. daily. 5. Neurontin 100 mg p.o. t.i.d. p.r.n. 6. Hydrocortisone suppository. 7. Claritin 10 mg p.o. q.h.s. 8. Ativan 1 mg t.i.d. p.r.n. 9. Cozaar 25 mg p.o. daily. 10.Magnesium oxide 400 mg p.o. b.i.d. 11.Zofran 4 mg q.8h p.r.n. 12.Protonix 40 mg p.o. daily. 13.Paxil 10 mg p.o. 14.Vitamin B1 thiamine 100 mg p.o. b.i.d. 15.Desyrel 200 mg p.o. q.h.s. Once again, the patient is being discharged in stable condition with guarded prognosis. MMODL / IJN: [id number] /
== END 2017-10-25 13:20 | disposition home or self-care (01) | DRG 897 ==
LOC: EC 09:20 → 4MS4W 14:15
PROVIDERS: ADMIT Hospitalist; ATTEND Hospitalist
DX: F10.231 Alcohol dependence with withdrawal delirium (principal); K70.10 Alcoholic hepatitis without ascites; F12.20 Cannabis dependence, uncomplicated; F32.9 Major depressive disorder, single episode, unspecified; F43.29 Adjustment disorder with other symptoms; G47.33 Obstructive sleep apnea (adult) (pediatric); J20.9 Acute bronchitis, unspecified; I10 Essential (primary) hypertension; I83.93 Asymptomatic varicose veins of bilateral lower extremities; G40.909 Epilepsy, unspecified, not intractable, without status epilepticus; K21.9 Gastro-esophageal reflux disease without esophagitis; M19.91 Primary osteoarthritis, unspecified site; R19.7 Diarrhea, unspecified; F41.9 Anxiety disorder, unspecified; Z79.899 Other long term (current) drug therapy; Z90.49 Acquired absence of other specified parts of digestive tract; Z87.01 Personal history of pneumonia (recurrent); Z88.1 Allergy status to other antibiotic agents; Z88.8 Allergy status to other drugs, medicaments and biological substances; Z82.0 Family history of epilepsy and other diseases of the nervous system; Z81.8 Family history of other mental and behavioral disorders; Z82.49 Family history of ischemic heart disease and other diseases of the circulatory system; Z80.8 Family history of malignant neoplasm of other organs or systems; Z82.61 Family history of arthritis
CPT/HCPCS: 36415; 71046; 80048; 80053; 81001; 82075; 82150; 82550; 82553; 83690; 83735; 83880; 84484; 85025; 85610; 85730; 87086; 87324; 87502; 93005; 94640; 96361; 96372; 96374; 96375; 99285

== ENCOUNTER 2017-11-03 12:04 | Inpatient (IN) | payer OTHER ==
[2017-11-03] MEDS ORDERED: SODIUM CHLORIDE 0.9% 1,000 ML IV STA (13:39)
[2017-11-03] MEDS ORDERED: LORazepam 2 MG/ML INJ IV STA (13:39)
[2017-11-03] MEDS ORDERED: THIAMINE 100 MG/ML 2 ML VIAL IVP STA (13:40)
[2017-11-03] MEDS ORDERED: ONDANSETRON 4 MG/2 ML VIAL IVP STA (13:42)
[2017-11-03 14:36] LABS: Basophils % (A) 0 %; Eosinophils # (A) 0.1 k/uL (0-0.7); Eosinophils % (A) 1 %; HCT 45.3 % (39.0-53.0); HGB 15.2 gm/dL (13.0-17.5); Lymphocytes # (A) 2.4 k/uL (1.0-4.8); Lymphocytes % (A) 22 %; MCHC 33.5 g/dL (31.0-37.0); MCV 92.6 fL (80.0-100.0); Mean Platelet Volume 7.2; Monocytes # (A) 0.5 k/uL (0-1.0); Monocytes % (A) 4 %; Neutrophils # (A) 7.8 k/uL (1.3-7.7); Neutrophils % (A) 71 %; RDW 14.5 % (11.5-15.5); WBC 10.9 k/uL (3.8-10.6)
[2017-11-03 14:42] LABS: Platelet Count 198 k/uL (150-450)
[2017-11-03 14:46] LABS: ALT 66 U/L (21-72); AST 103 U/L (17-59); Albumin 4.7 g/dL (3.5-5.0); Alkaline Phosphatase 69 U/L (38-126); Amylase 65 U/L (30-110); Anion Gap 21 mmol/L; Blood Urea Nitrogen 10 mg/dL (9-20); Calcium 9.2 mg/dL (8.4-10.2); Carbon Dioxide 27 mmol/L (22-30); Chloride 98 mmol/L (98-107); Glucose 82 mg/dL (74-99); Lipase 58 U/L (23-300); Potassium 4.4 mmol/L (3.5-5.1); Sodium 146 mmol/L (137-145); Total Bilirubin 1.3 mg/dL (0.2-1.3); Total Protein 7.5 g/dL (6.3-8.2)
[2017-11-03] MEDS ORDERED: CLINDAMYCIN 150 MG CAP PO STA (14:50)
--- NOTE | 2017-11-03 14:50 | ED ---
General Adult HPI - General Chief complaint: Alcohol Stated complaint: Tooth infection, chest cold Time Seen by Provider: 11/03/17 13:28 Source: patient, RN notes reviewed Mode of arrival: ambulatory Limitations: no limitations - History of Present Illness Initial comments: 42-year-old male presents to the emergency department for a chief complaint of alcohol withdrawals. Patient states his last drink was last night and he quit drinking since then. Patient would like to stop because he says it is "killing him." Patient admits to shakiness and nausea. Patient also presents to the emergency department for right tooth pain. Patient states this has been ongoing for quite some time. Patient denies any fevers or chills at home. Patient has no other complaints at this time including shortness of breath, chest pain, abdominal pain, nausea or vomiting, headache, or visual changes. - Related Data Home Medications Medication Instructions Recorded Confirmed ALPRAZolam [Xanax] 1 mg PO BID PRN 11/03/17 11/03/17 Albuterol Inhaler [Ventolin Hfa 1 - 2 puff INHALATION RT-Q6H PRN 11/03/17 Inhaler] Gabapentin [Neurontin] 600 mg PO TID 11/03/17 11/03/17 Losartan [Cozaar] 25 mg PO DAILY 11/03/17 11/03/17 traZODone HCL [Desyrel] 100 mg PO HS 11/03/17 11/03/17 Previous Rx's Medication Instructions Recorded Pantoprazole [Protonix] 40 mg PO DAILY #30 tablet. 07/29/17 Allergies Allergy/AdvReac Type Severity Reaction Status Date / Time Cephalosporins Allergy Severe Anaphylaxis Verified 11/03/17 12:27 diphenhydramine HCl Allergy Severe Anaphylaxis Verified 11/03/17 12:27 [From Benadryl] divalproex sodium Allergy Severe Anaphylaxis Verified 11/03/17 12:27 [From Depakote] ceftriaxone [From Rocephin] Allergy Unknown Verified 11/03/17 12:27 cephalexin [From Keflex] Allergy Unknown Verified 11/03/17 12:27 lisinopril Allergy Unknown Verified 11/03/17 12:27 Review of Systems ROS Statement: Those systems with pertinent positive or pertinent negative responses have been documented in the HPI. ROS Other: All systems not noted in ROS Statement are negative. Past Medical History Past Medical History: GERD/Reflux, Hypertension, Osteoarthritis (OA), Pneumonia , Seizure Disorder, Sleep Apnea/CPAP/BIPAP Additional Past Medical History / Comment(s): Alcoholism, ETOH withdrawals, mild alcohol hepatitis, upper GI bleed, gastritis, had episode of "fainting" 1 yrs ago and told he had a seizurepossible alcoholic seizures/blackouts, bilateral varicose veins, spinal stenosis with surgery, herniated disc, MILIND no CPAP, hemorrhoids. History of Any Multi-Drug Resistant Organisms: None Reported Past Surgical History: Appendectomy, Back Surgery, Tonsillectomy Additional Past Surgical History / Comment(s): 07/13/17 EGD, 4-7-16 LAMINECTOMY, bilateral DISCETOMY L5-S1. Past Anesthesia/Blood Transfusion Reactions: Motion Sickness Past Psychological History: Anxiety, Depression Smoking Status: Never smoker Past Alcohol Use History: Abuse, Daily Past Drug Use History: Marijuana - Past Family History Father Family Medical History: Cancer, Dementia Additional Family Medical History / Comment(s): melanoma, parkinsons Mother Family Medical History: Hypertension, Musculoskeletal Disorder, Neurologic Disorder, Osteoarthritis (OA) Additional Family Medical History / Comment(s): . Had some motor neuron disease General Exam Limitations: no limitations General appearance: alert, in no apparent distress, other (slight tremor noted. patient is also dry heaving.) Eye exam: Present: normal appearance, PERRL, EOMI. Absent: scleral icterus, conjunctival injection, nystagmus, periorbital swelling ENT exam: Present: mucous membranes moist, TM's normal bilaterally, other ( There is a fractured tooth 2. no visible abscess noted. uvula midline.) Neck exam: Present: normal inspection, lymphadenopathy (mild tender bilat lymphadenopathy). Absent: tenderness, meningismus Respiratory exam: Present: normal lung sounds bilaterally Cardiovascular Exam: Present: regular rate, normal rhythm, normal heart sounds. Absent: systolic murmur, diastolic murmur, rubs, gallop, clicks GI/Abdominal exam: Present: soft, normal bowel sounds. Absent: distended, tenderness, guarding, rebound, rigid Course Vital Signs 11/03/17 11/03/17 11/03/17 12:23 14:20 16:08 Temperature 99.1 F 97.8 F Pulse Rate 113 H 108 H 109 H Respiratory 18 18 20 Rate Blood Pressure 141/86 156/93 156/96 O2 Sat by Pulse 98 99 98 Oximetry Medical Decision Making - Medical Decision Making 42-year-old male presents to the emergency department for chief complaint of right tooth pain and alcohol withdrawal. Patient states he has had pain in his tooth for quite some time. On exam there is a fractured tooth 2. No abscess drainable. Patient is also complaining of alcohol withdrawal. Patient is claiming of nausea and vomiting as well as slight tremors. Patient quit drinking last night. He usually drinks about a fifth of liquor every night. EtoH is 179. Magnesium 1.0 was replaced. Remainder of labs were unremarkable. Patient will be admitted to [facility] for management of withdrawal and hypomagnesemia and tooth pain. - Lab Data Result diagrams: 11/03/17 14:10 11/03/17 14:10 Lab Results 11/03/17 11/03/17 Range/Units 14:10 14:10 WBC 10.9 H (3.8-10.6) k/uL RBC 4.90 (4.30-5.90) m/uL Hgb 15.2 (13.0-17.5) gm/dL Hct 45.3 (39.0-53.0) % MCV 92.6 (80.0-100.0) fL MCH 31.0 (25.0-35.0) pg MCHC 33.5 (31.0-37.0) g/dL RDW 14.5 (11.5-15.5) % Plt Count 198 D (150-450) k/uL Neutrophils % 71 % Lymphocytes % 22 % Monocytes % 4 % Eosinophils % 1 % Basophils % 0 % Neutrophils # 7.8 H (1.3-7.7) k/uL Lymphocytes # 2.4 (1.0-4.8) k/uL Monocytes # 0.5 (0-1.0) k/uL Eosinophils # 0.1 (0-0.7) k/uL Basophils # 0.0 (0-0.2) k/uL Sodium 146 H (137-145) mmol/L Potassium 4.4 (3.5-5.1) mmol/L Chloride 98 (98-107) mmol/L Carbon Dioxide 27 (22-30) mmol/L Anion Gap 21 mmol/L BUN 10 (9-20) mg/dL Creatinine 0.70 (0.66-1.25) mg/dL Est GFR (CKD-EPI)AfAm >90 (>60 ml/min/1.73 sqM) Est GFR (CKD-EPI)NonAf >90 (>60 ml/min/1.73 sqM) Glucose 82 (74-99) mg/dL Calcium 9.2 (8.4-10.2) mg/dL Magnesium 1.0 L* (1.6-2.3) mg/dL Total Bilirubin 1.3 (0.2-1.3) mg/dL AST 103 H (17-59) U/L ALT 66 (21-72) U/L Alkaline Phosphatase 69 (38-126) U/L Total Protein 7.5 (6.3-8.2) g/dL Albumin 4.7 (3.5-5.0) g/dL Amylase 65 (30-110) U/L Lipase 58 (23-300) U/L Serum Alcohol 179 mg/dL Disposition Clinical Impression: Alcohol withdrawal, Hypomagnesemia, Abscessed tooth Disposition: ADMITTED IP TO THIS HOSP Condition: Good Referrals: Veena Bynum DO [Primary Care Provider] - 1-2 days Time of Disposition: 16:50
[2017-11-03 14:54] LABS: Alcohol 179 mg/dL
[2017-11-03] MEDS ORDERED: LORazepam 2 MG/ML INJ IV PRN ×2 (16:07)
[2017-11-03] MEDS ORDERED: THIAMINE 100 MG/ML 2 ML VIAL IM STA (16:07)
[2017-11-03] MEDS: MAGNESIUM SULFATE-D5W PMX 1 GM in DEXTROSE/WATER 1 100ML.BAG IVPB SCH ×4 (16:13→23:01)
[2017-11-03] MEDS: LORazepam 2 MG/ML INJ IV PRN ×4 (16:29→23:02)
[2017-11-03] MEDS ORDERED: KETOROLAC 30 MG/ML 1 ML VIAL IVP STA (16:36)
[2017-11-03] MEDS ORDERED: ACETAMINOPHEN TAB 325 MG TAB PO PRN (16:40)
[2017-11-03] MEDS ORDERED: NALOXONE 0.4 MG/ML 1 ML VIAL IV PRN (16:40)
[2017-11-03] MEDS: SODIUM CHLORIDE 0.9% 1,000 ML IV SCH (17:38)
[2017-11-03] MEDS: CLINDAMYCIN 150 MG CAP PO SCH ×2 (17:42→23:03)
[2017-11-03] MEDS: THIAMINE 100 MG TAB PO SCH (17:50)
--- NOTE | 2017-11-03 18:13 | P.HPIM ---
History of Present Illness 42-year-old male came in because of toothache found to have tooth abscess. Patient and alcohol he drinks about 1 pint of alcohol every single day had multiple admissions hospitalizations in the past. Patient this time wanted to detox himself and wanted us to treat withdrawals and patient will go to [facility] of his after his treatment. Had extensive discussion with the patient regarding quitting alcohol patient is willing to quit alcohol this time. Patient was started on Ativan CIWA protocol Protonix, clindamycin. Patient is also found to be hypomagnesemic magnesium is being supplemented will monitor him a day or 2 depending on his withdrawals. Once his withdrawals are better patient will be discharged to [facility]. Patient is also coming of dry cough nausea vomiting. Nausea vomiting is secondary to alcoholic gastritis. Review of Systems REVIEW OF SYSTEMS: CONSTITUTIONAL: No fever, no malaise, no fatigue. HEENT: No recent visual problems or hearing problems. Denied any sore throat. CARDIOVASCULAR: No chest pain, orthopnea, PND, no palpitations, no syncope. PULMONARY: No shortness of breath, no hemoptysis. GASTROINTESTINAL: No diarrhea, no abdominal pain. Normoactive bowel sounds. NEUROLOGICAL: No headaches, no weakness, no numbness. HEMATOLOGICAL: Denies any bleeding or petechiae. GENITOURINARY: Denies any burning micturition, frequency, or urgency. MUSCULOSKELETAL/RHEUMATOLOGICAL: Denies any joint pain, swelling, or any muscle pain. ENDOCRINE: Denies any polyuria or polydipsia. The rest of the 14-point review of systems is negative. Past Medical History Past Medical History: GERD/Reflux, Hypertension, Osteoarthritis (OA), Pneumonia , Seizure Disorder, Sleep Apnea/CPAP/BIPAP Additional Past Medical History / Comment(s): Alcoholism, ETOH withdrawals, mild alcohol hepatitis, upper GI bleed, gastritis, had episode of "fainting" 1 yrs ago and told he had a seizurepossible alcoholic seizures/blackouts, bilateral varicose veins, spinal stenosis with surgery, herniated disc, MILIND no CPAP, hemorrhoids. History of Any Multi-Drug Resistant Organisms: None Reported Past Surgical History: Appendectomy, Back Surgery, Tonsillectomy Additional Past Surgical History / Comment(s): 07/13/17 EGD, 4-16 LAMINECTOMY, bilateral DISCETOMY L5-S1. Past Anesthesia/Blood Transfusion Reactions: Motion Sickness Past Psychological History: Anxiety, Depression Additional Psychological History / Comment(s): pt lives alone in house, no pets. Pt uses no assistive device. He drives. Pt is an alcoholic. He has been in rehab for his alcoholism in the past. 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 Had some motor neuron disease Medications and Allergies Home Medications Medication Instructions Recorded Confirmed Type Pantoprazole [Protonix] 40 mg PO DAILY #30 tablet. 07/29/17 11/03/17 Rx ALPRAZolam [Xanax] 1 mg PO BID PRN 11/03/17 11/03/17 History Albuterol Inhaler [Ventolin Hfa 1 - 2 puff INHALATION RT-Q6H PRN 11/03/17 History Inhaler] Gabapentin [Neurontin] 600 mg PO TID 11/03/17 11/03/17 History Losartan [Cozaar] 25 mg PO DAILY 11/03/17 11/03/17 History traZODone HCL [Desyrel] 100 mg PO HS 11/03/17 11/03/17 History Allergies Allergy/AdvReac Type Severity Reaction Status Date / Time Cephalosporins Allergy Severe Anaphylaxis Verified 11/03/17 12:27 diphenhydramine HCl Allergy Severe Anaphylaxis Verified 11/03/17 12:27 [From Benadryl] divalproex sodium Allergy Severe Anaphylaxis Verified 11/03/17 12:27 [From Depakote] ceftriaxone [From Rocephin] Allergy Unknown Verified 11/03/17 12:27 cephalexin [From Keflex] Allergy Unknown Verified 11/03/17 12:27 lisinopril Allergy Unknown Verified 11/03/17 12:27 Physical Exam Vitals: Vital Signs Temp Pulse Resp BP Pulse Ox 11/03/17 16:08 97.8 F 109 H 20 156/96 98 11/03/17 14:20 108 H 18 156/93 99 11/03/17 12:23 99.1 F 113 H 18 141/86 98 Intake and Output 11/03/17 11/03/17 11/03/17 06:59 14:59 22:59 Other: Weight 127.006 kg Results CBC & Chem 7: 11/03/17 14:10 11/03/17 14:10 Labs: Abnormal Lab Results - Last 24 Hours (Table) 11/03/17 11/03/17 Range/Units 14:10 14:10 WBC 10.9 H (3.8-10.6) k/uL Neutrophils # 7.8 H (1.3-7.7) k/uL Sodium 146 H (137-145) mmol/L Magnesium 1.0 L* (1.6-2.3) mg/dL AST 103 H (17-59) U/L Thrombosis Risk Factor Assmnt - Choose All That Apply Any of the Below Risk Factors Present?: Yes Each Factor Represents 1 point: Age 41-60 years, Obesity (BMI >25) Other Risk Factors: No Other congenital or acquired thrombophilia - If yes, enter type in comment: No Thrombosis Risk Factor Assessment Total Risk Factor Score: 2 Thrombosis Risk Factor Assessment Level: Low Risk Assessment and Plan Plan: -Right maxillary second molar abscess: Patient was started on clindamycin which is appropriate which will be continued. -Alcoholic gastritis: Patient was started on Protonix -Alcohol abuse: Counseling was provided -Alcohol withdrawal: Patient was started on Ativan CIWA protocol, thiamine multivitamin supplementation -Cough: Probably secondary to lisinopril. -Hypomagnesemia: Secondary to alcoholism magnesium will be supplemented. Magnesium tomorrow and repeat compresses metabolic profile tomorrow.
[2017-11-03] MEDS: PANTOPRAZOLE 40 MG TABLET PO SCH (20:58)
[2017-11-03] MEDS: ONDANSETRON 4 MG/2 ML VIAL IVP PRN (22:03)
[2017-11-04] MEDS: KETOROLAC 30 MG/ML 1 ML VIAL IVP PRN ×4 (00:01→18:34)
[2017-11-04] MEDS: MAGNESIUM SULFATE-D5W PMX 1 GM in DEXTROSE/WATER 1 100ML.BAG IVPB SCH (00:01)
[2017-11-04] MEDS: LORazepam 2 MG/ML INJ IV PRN ×7 (04:20→23:27)
[2017-11-04] MEDS: CLINDAMYCIN 150 MG CAP PO SCH ×4 (06:19→23:27)
[2017-11-04] MEDS: SODIUM CHLORIDE 0.9% 1,000 ML IV SCH ×3 (06:22→23:28)
[2017-11-04] MEDS: PANTOPRAZOLE 40 MG TABLET PO SCH (08:52)
[2017-11-04 08:58] LABS: Basophils % (A) 0 %; Eosinophils # (A) 0.1 k/uL (0-0.7); Eosinophils % (A) 1 %; HCT 38.7 % (39.0-53.0); HGB 12.6 gm/dL (13.0-17.5); Lymphocytes # (A) 1.1 k/uL (1.0-4.8); Lymphocytes % (A) 21 %; MCH 30.4 pg (25.0-35.0); MCHC 32.7 g/dL (31.0-37.0); MCV 92.8 fL (80.0-100.0); Mean Platelet Volume 7.7; Monocytes # (A) 0.2 k/uL (0-1.0); Monocytes % (A) 4 %; Neutrophils # (A) 3.5 k/uL (1.3-7.7); Neutrophils % (A) 72 %; Platelet Count 118 k/uL (150-450); RBC 4.16 m/uL (4.30-5.90); RDW 14.2 % (11.5-15.5); WBC 4.9 k/uL (3.8-10.6)
[2017-11-04 09:19] LABS: ALT 46 U/L (21-72); AST 73 U/L (17-59); Albumin 3.6 g/dL (3.5-5.0); Alkaline Phosphatase 53 U/L (38-126); Anion Gap 12 mmol/L; Blood Urea Nitrogen 16 mg/dL (9-20); Calcium 8.2 mg/dL (8.4-10.2); Carbon Dioxide 31 mmol/L (22-30); Chloride 98 mmol/L (98-107); Glucose 74 mg/dL (74-99); Magnesium 1.9 mg/dL (1.6-2.3); Potassium 3.8 mmol/L (3.5-5.1); Sodium 141 mmol/L (137-145); Total Bilirubin 2.5 mg/dL (0.2-1.3); Total Protein 5.8 g/dL (6.3-8.2)
[2017-11-04] MEDS: THIAMINE 100 MG TAB PO SCH ×2 (11:21→16:12)
[2017-11-04] MEDS: ONDANSETRON 4 MG/2 ML VIAL IVP PRN (11:29)
[2017-11-04] MEDS ORDERED: ALBUTEROL NEBULIZED 2.5 MG/3 ML INHALATION PRN (12:18)
[2017-11-04] MEDS ORDERED: LOSARTAN 25 MG TAB PO SCH (12:30)
--- NOTE | 2017-11-04 15:34 | P.PN ---
Subjective 42-year-old admitted for alcohol withdrawal is still requiring Ativan quite often. Patient is still complaining of toothache patient is presently on Augmentin for tooth abscess. Constitutional: Denied any fatigue denied any fever. Cardio vascular: denied any chest pain, palpitations Gastrointestinal denied any nausea vomiting Pulmonary: Denied any shortness of breath cough Neurologic denied any new focal deficits Objective - Vital Signs Vital signs: Vital Signs Temp 97.2 F L 11/04/17 14:16 Pulse 86 11/04/17 14:16 Resp 16 11/04/17 14:16 BP 144/92 11/04/17 14:16 Pulse Ox 97 11/04/17 14:16 Intake & Output 11/03/17 11/04/17 11/04/17 18:59 06:59 18:59 Intake Total 1450 650 Balance 1450 650 Weight 127.006 kg 119 kg 119 kg Intake: Oral 1450 650 Other: Voiding Method Toilet Toilet Urinal Urinal # Voids 4 4 # Bowel Movements 1 - Exam GENERAL: The patient is alert and oriented x3, not in any acute distress. Well developed, well nourished. Tremors HEENT: Pupils are round and equally reacting to light. EOMI. No scleral icterus. No conjunctival pallor. Normocephalic, atraumatic. No pharyngeal erythema. No thyromegaly. Patient has caries teeth and right second molar appears to be infected. CARDIOVASCULAR: S1 and S2 present. No murmurs, rubs, or gallops. PULMONARY: Chest is clear to auscultation, no wheezing or crackles. ABDOMEN: Soft, nontender, nondistended, normoactive bowel sounds. No palpable organomegaly. MUSCULOSKELETAL: No joint swelling or deformity. EXTREMITIES: No cyanosis, clubbing, or pedal edema. NEUROLOGICAL: Gross neurological examination did not reveal any focal deficits. SKIN: No rashes. - Labs CBC & Chem 7: 11/04/17 08:12 11/04/17 08:12 Labs: Abnormal Lab Results - Last 24 Hours (Table) 11/04/17 11/04/17 Range/Units 08:12 08:12 RBC 4.16 L (4.30-5.90) m/uL Hgb 12.6 L (13.0-17.5) gm/dL Hct 38.7 L (39.0-53.0) % Plt Count 118 L (150-450) k/uL Carbon Dioxide 31 H (22-30) mmol/L Calcium 8.2 L (8.4-10.2) mg/dL Total Bilirubin 2.5 H (0.2-1.3) mg/dL AST 73 H (17-59) U/L Total Protein 5.8 L (6.3-8.2) g/dL Assessment and Plan Plan: -Right maxillary second molar abscess: Patient was started on clindamycin which is appropriate which will be continued. -Alcoholic gastritis: Patient was started on Protonix -Alcohol abuse: Counseling was provided -Alcohol withdrawal: Patient was started on Ativan CIWA protocol, thiamine multivitamin supplementation -Cough: Probably secondary to lisinopril. -Hypomagnesemia: Secondary to alcoholism magnesium was supplemented
[2017-11-04] MEDS: CARVEDILOL 6.25 MG TAB PO SCH (17:07)
[2017-11-05] MEDS: ONDANSETRON 4 MG/2 ML VIAL IVP PRN ×3 (00:22→17:33)
[2017-11-05] MEDS: KETOROLAC 30 MG/ML 1 ML VIAL IVP PRN ×4 (00:22→20:31)
[2017-11-05] MEDS: LORazepam 2 MG/ML INJ IV PRN ×6 (03:40→22:42)
[2017-11-05] MEDS: CLINDAMYCIN 150 MG CAP PO SCH ×3 (06:36→17:33)
[2017-11-05] MEDS: CARVEDILOL 6.25 MG TAB PO SCH (07:47)
[2017-11-05] MEDS: SODIUM CHLORIDE 0.9% 1,000 ML IV SCH ×2 (07:48→20:33)
[2017-11-05] MEDS: PANTOPRAZOLE 40 MG TABLET PO SCH (07:48)
[2017-11-05 08:26] LABS: ALT 42 U/L (21-72); AST 65 U/L (17-59); Albumin 3.5 g/dL (3.5-5.0); Alkaline Phosphatase 51 U/L (38-126); Anion Gap 13 mmol/L; Blood Urea Nitrogen 13 mg/dL (9-20); Calcium 8.4 mg/dL (8.4-10.2); Carbon Dioxide 28 mmol/L (22-30); Chloride 98 mmol/L (98-107); Glucose 74 mg/dL (74-99); Potassium 4.4 mmol/L (3.5-5.1); Sodium 139 mmol/L (137-145); Total Bilirubin 1.8 mg/dL (0.2-1.3); Total Protein 5.7 g/dL (6.3-8.2)
[2017-11-05] MEDS: THIAMINE 100 MG TAB PO SCH ×2 (10:37→17:33)
--- NOTE | 2017-11-05 13:14 | P.PN ---
Objective - Vital Signs Vital signs: Vital Signs Temp 98.5 F 11/05/17 07:00 Pulse 76 11/05/17 07:00 Resp 16 11/05/17 07:00 BP 164/103 11/05/17 07:00 Pulse Ox 99 11/05/17 07:00 Intake & Output 11/04/17 11/05/17 11/05/17 18:59 06:59 18:59 Intake Total 650 1150 Balance 650 1150 Weight 119 kg Intake: Oral 650 1150 Other: Voiding Method Toilet Toilet Urinal Urinal # Voids 4 3 1 # Bowel Movements 1 - Exam GENERAL: The patient is alert and oriented x3, not in any acute distress. Well developed, well nourished. Tremors, mild HEENT: Pupils are round and equally reacting to light. EOMI. No scleral icterus. No conjunctival pallor. Normocephalic, atraumatic. No pharyngeal erythema. No thyromegaly. Patient has caries teeth and upper right second molar appears to be infected. CARDIOVASCULAR: S1 and S2 present. No murmurs, rubs, or gallops. PULMONARY: Chest is clear to auscultation, no wheezing or crackles. ABDOMEN: Soft, nontender, nondistended, normoactive bowel sounds. No palpable organomegaly. MUSCULOSKELETAL: No joint swelling or deformity. EXTREMITIES: No cyanosis, clubbing, or pedal edema. NEUROLOGICAL: Gross neurological examination did not reveal any focal deficits. SKIN: No rashes. - Labs CBC & Chem 7: 11/04/17 08:12 11/05/17 06:49 Labs: Abnormal Lab Results - Last 24 Hours (Table) 11/05/17 Range/Units 06:49 Creatinine 0.62 L (0.66-1.25) mg/dL Total Bilirubin 1.8 H (0.2-1.3) mg/dL AST 65 H (17-59) U/L Total Protein 5.7 L (6.3-8.2) g/dL Assessment and Plan Plan: -Right maxillary second molar abscess: Patient was started on clindamycin which is appropriate which will be continued. Patient states he has this problem for months -Alcoholic gastritis: Patient was started on Protonix -Alcohol abuse: Counseling was provided -Alcohol withdrawal: Patient was started on Ativan CIWA protocol, thiamine multivitamin supplementation -Cough: Probably secondary to lisinopril. -Hypomagnesemia: Secondary to alcoholism magnesium was supplemented
[2017-11-05] MEDS: MAGNESIUM OXIDE 400 MG TAB PO SCH ×2 (14:20→20:33)
[2017-11-05] MEDS: CARVEDILOL 12.5 MG TAB PO SCH (17:34)
[2017-11-05] MEDS: HEPARIN SODIUM,PORCINE 5,000 UNIT/ML 1 ML VIAL SQ SCH (20:33)
[2017-11-06] MEDS: CLINDAMYCIN 150 MG CAP PO SCH ×4 (00:08→17:50)
[2017-11-06] MEDS: ONDANSETRON 4 MG/2 ML VIAL IVP PRN ×4 (00:10→20:50)
[2017-11-06] MEDS ORDERED: PANTOPRAZOLE 40 MG/10 ML VIAL IVP ONE (00:30)
[2017-11-06] MEDS: KETOROLAC 30 MG/ML 1 ML VIAL IVP PRN ×4 (02:42→20:50)
[2017-11-06] MEDS: SODIUM CHLORIDE 0.9% 1,000 ML IV SCH ×2 (06:21→16:20)
[2017-11-06] MEDS: LORazepam 1 MG TAB PO PRN ×3 (06:22→18:43)
[2017-11-06 07:41] LABS: Basophils % (A) 0 %; Eosinophils # (A) 0.1 k/uL (0-0.7); Eosinophils % (A) 2 %; HCT 35.1 % (39.0-53.0); HGB 11.7 gm/dL (13.0-17.5); Lymphocytes # (A) 1.6 k/uL (1.0-4.8); Lymphocytes % (A) 32 %; MCH 30.4 pg (25.0-35.0); MCHC 33.4 g/dL (31.0-37.0); Mean Platelet Volume 8.1; Monocytes # (A) 0.3 k/uL (0-1.0); Monocytes % (A) 6 %; Neutrophils # (A) 2.9 k/uL (1.3-7.7); Neutrophils % (A) 58 %; Platelet Count 108 k/uL (150-450); RBC 3.85 m/uL (4.30-5.90); RDW 14.2 % (11.5-15.5); WBC 4.9 k/uL (3.8-10.6)
[2017-11-06 08:00] LABS: Albumin 3.3 g/dL (3.5-5.0); Bilirubin, Delta 0.1 mg/dL (0.0-0.2); Magnesium 1.3 mg/dL (1.6-2.3); Total Bilirubin 1.1 mg/dL (0.2-1.3); Total Protein 5.4 g/dL (6.3-8.2)
[2017-11-06] MEDS: HEPARIN SODIUM,PORCINE 5,000 UNIT/ML 1 ML VIAL SQ SCH ×2 (08:27→20:52)
[2017-11-06] MEDS: MAGNESIUM OXIDE 400 MG TAB PO SCH ×2 (08:28→20:52)
[2017-11-06] MEDS: CARVEDILOL 12.5 MG TAB PO SCH ×2 (08:28→17:50)
[2017-11-06] MEDS: PANTOPRAZOLE 40 MG TABLET PO SCH (08:28)
[2017-11-06] MEDS: THIAMINE 100 MG TAB PO SCH ×2 (12:01→17:50)
[2017-11-06] MEDS ORDERED: MAGNESIUM SULFATE-D5W PMX 1 GM in DEXTROSE/WATER 1 100ML.BAG IVPB SCH (14:00)
[2017-11-06] MEDS: MAGNESIUM SULFATE-D5W PMX 1 GM in DEXTROSE/WATER 1 100ML.BAG IVPB SCH ×4 (14:25→21:58)
[2017-11-06 18:22] LABS: Magnesium 1.8 mg/dL (1.6-2.3); Potassium 4.7 mmol/L (3.5-5.1)
[2017-11-06] MEDS ORDERED: Magnesium Replacement Protocol 1 EACH MISC MISCELLANE PRN (18:34)
--- NOTE | 2017-11-06 18:34 | P.PN ---
Subjective subjective: pt is still complains from withdrawal s/s and he needs ativan frequently , however pt states he is improving Patient is requiring less frequent Ativan. No more tremor, no difficulty breathing, no chest pain, no altered mental status, no nausea vomiting. No abdominal pain no change in bowel habits Objective - Vital Signs Vital signs: Vital Signs Temp 98.4 F 11/06/17 15:00 Pulse 69 11/06/17 15:00 Resp 18 11/06/17 15:00 BP 159/90 11/06/17 15:00 Pulse Ox 97 11/06/17 15:00 Intake & Output 11/05/17 11/06/17 11/06/17 18:59 06:59 18:59 Intake Total 240 120 Balance 240 120 Intake: Oral 240 120 Other: Voiding Method Toilet Toilet Urinal Urinal # Voids 3 2 2 # Bowel Movements 1 - Exam GENERAL: The patient is alert and oriented x3, not in any acute distress. Well developed, well nourished. Tremors, mild HEENT: Pupils are round and equally reacting to light. EOMI. No scleral icterus. No conjunctival pallor. Normocephalic, atraumatic. No pharyngeal erythema. No thyromegaly. Patient has caries teeth and upper right second molar appears to be infected. CARDIOVASCULAR: S1 and S2 present. No murmurs, rubs, or gallops. PULMONARY: Chest is clear to auscultation, no wheezing or crackles. ABDOMEN: Soft, nontender, nondistended, normoactive bowel sounds. No palpable organomegaly. MUSCULOSKELETAL: No joint swelling or deformity. EXTREMITIES: No cyanosis, clubbing, or pedal edema. NEUROLOGICAL: Gross neurological examination did not reveal any focal deficits. SKIN: No rashes. - Labs CBC & Chem 7: 11/06/17 07:20 11/06/17 17:53 Labs: Abnormal Lab Results - Last 24 Hours (Table) 11/06/17 11/06/17 Range/Units 07:20 07:20 RBC 3.85 L (4.30-5.90) m/uL Hgb 11.7 L (13.0-17.5) gm/dL Hct 35.1 L (39.0-53.0) % Plt Count 108 L (150-450) k/uL Magnesium 1.3 L (1.6-2.3) mg/dL AST 63 H (17-59) U/L Total Protein 5.4 L (6.3-8.2) g/dL Albumin 3.3 L (3.5-5.0) g/dL Assessment and Plan Plan: -Right maxillary second molar abscess: Patient was started on clindamycin which is appropriate which will be continued. I recommended for the patient to make an dentist appointment today, however he declined and he said he is going to follow up with his PCP in one week which tender for him as an outpatient. Risks benefits and alternatives are explained for the patient -Alcoholic gastritis: Patient was started on Protonix -Alcohol abuse: Counseling was provided -Alcohol withdrawal: Patient was started on Ativan CIWA protocol, thiamine supplementation -Cough: Resolved -Hypomagnesemia: Secondary to alcoholism magnesium was supplemented
[2017-11-06 22:48] VITALS: BP 132/76; PULSE 75; RESP 14; TEMP 98.3
[2017-11-07] MEDS: LORazepam 1 MG TAB PO PRN ×2 (00:39→06:33)
[2017-11-07] MEDS: CLINDAMYCIN 150 MG CAP PO SCH ×2 (00:39→06:33)
[2017-11-07] MEDS: SODIUM CHLORIDE 0.9% 1,000 ML IV SCH (00:48)
[2017-11-07] MEDS: ONDANSETRON 4 MG/2 ML VIAL IVP PRN (02:38)
[2017-11-07] MEDS: KETOROLAC 30 MG/ML 1 ML VIAL IVP PRN (02:40)
--- NOTE | 2017-11-07 07:37 | P.DS ---
Providers Date of admission: 11/03/17 16:08 Attending physician: Aida Arias Primary care physician: Veena [facility] Course: Date of service 11/06/2017 42-year-old male came in because of right tooth pain and alcohol withdrawal. Patient was drinking alcohol until the last night before his coming to the emergency room. Patient's want to stop drinking and going to [facility] for local rehab. On presentation patient had some nausea and shakiness also he was complaining of from right tooth pain, patient was admitted to the general medical floor and he was treated with CIWA protocol. Electrolytes been monitored and replaced and patient is been treated symptomatically. Patient continuously needed less Ativan for his withdrawal symptoms. On the day of discharge patient was asymptomatic. No shakiness, no tremor, no chest pain or dyspnea, no fever, no change in urine or bowel habits, no abdominal pain, he has good appetite eating and moving well with no complaints or difficulties. Patient was discharged on tapered dose of Ativan. He was discharged on nearly morning of 11/06/2017 because he has an appointment at 10:00 in the morning with [facility] for alcohol rehab which the patient showed much interest to go onto treated. Hypomagnesemia was placed and magnesium was normal on the day of discharge at 2.1 Patient also came with right upper tooth infection, he was started on clindamycin and patient showed interval improvement, on the day of discharge patient says he has less pain, less his swelling, no problems in eating or breathing,. On examination I didn't feel any fluctuating or discharge on the right cheek or the right gum area. I counseled the patient about the importance of seen a dentist, patient doesn't want the medical staff to make appointments with a distance for him. He wants to continue with the antibiotics and he will follow-up with his PCP. I counseled the patient is still can go and visit his PCP while in [place] within one week of discharge. Patient agreed and verbalized understanding and acceptance. Patient was discharged on clindamycin. Risks benefits and alternatives are explained to the patient and he verbalized understanding and acceptance problems and management plan were discussed with the patient and he verbalized understanding and acceptance Patient is found stable and can be discharged to the community however he needs follow-up as an outpatient Physical exam GENERAL: The patient is alert and oriented x3, not in any acute distress. Well developed, well nourished. no Tremorresults -Right upper second molar tooth with slight erythema, and mild swelling, no fluctuating mass, no discharge, no open wound or ulcer, no significant tenderness ENT: Pupils are round and equally reacting to light. EOMI. No scleral icterus. No conjunctival pallor. Normocephalic, atraumatic. No pharyngeal erythema. No thyromegaly. Patient has caries teeth and upper right second molar appears to be infected. CARDIOVASCULAR: S1 and S2 present. No murmurs, rubs, or gallops. PULMONARY: Chest is clear to auscultation, no wheezing or crackles. ABDOMEN: Soft, nontender, nondistended, normoactive bowel sounds. No palpable organomegaly. MUSCULOSKELETAL: No joint swelling or deformity. EXTREMITIES: No cyanosis, clubbing, or pedal edema. NEUROLOGICAL: Gross neurological examination did not reveal any focal deficits. SKIN: No rashes. Patient Condition at Discharge: Good Plan - Discharge Summary Discharge Rx Participant: Yes New Discharge Prescriptions: New Carvedilol [Coreg*] 12.5 mg PO BID-W/MEALS #60 tab Clindamycin [Cleocin] 450 mg PO Q6H 7 Days #28 cap Folic Acid 1 mg PO DAILY #30 tablet LORazepam [Ativan] 0.5 mg PO DIRECTED #24 tab Magnesium Oxide [Mag-Ox] 400 mg PO BID 7 Days #14 tab Pantoprazole [Protonix] 40 mg PO AC-BRKFST #30 tablet. Thiamine [Vitamin B-1] 100 mg PO BID@1200,1700 #30 tab Continue Pantoprazole [Protonix] 40 mg PO DAILY #30 tablet. traZODone HCL [Desyrel] 100 mg PO HS Losartan [Cozaar] 25 mg PO DAILY Albuterol Inhaler [Ventolin Hfa Inhaler] 1 - 2 puff INHALATION RT-Q6H PRN PRN Reason: Shortness Of Breath Gabapentin [Neurontin] 600 mg PO TID ALPRAZolam [Xanax] 1 mg PO BID PRN PRN Reason: Anxiety Discharge Medication List Pantoprazole [Protonix] 40 mg PO DAILY #30 tablet. 07/29/17 [Rx] ALPRAZolam [Xanax] 1 mg PO BID PRN 11/03/17 [History] Albuterol Inhaler [Ventolin Hfa Inhaler] 1 - 2 puff INHALATION RT-Q6H PRN [History] Gabapentin [Neurontin] 600 mg PO TID 11/03/17 [History] Losartan [Cozaar] 25 mg PO DAILY 11/03/17 [History] traZODone HCL [Desyrel] 100 mg PO HS 11/03/17 [History] Carvedilol [Coreg*] 12.5 mg PO BID-W/MEALS #60 tab 11/06/17 [Rx] Clindamycin [Cleocin] 450 mg PO Q6H 7 Days #28 cap 11/06/17 [Rx] Folic Acid 1 mg PO DAILY #30 tablet 11/06/17 [Rx] LORazepam [Ativan] 0.5 mg PO DIRECTED #24 tab 11/06/17 [Rx] Magnesium Oxide [Mag-Ox] 400 mg PO BID 7 Days #14 tab 11/06/17 [Rx] Pantoprazole [Protonix] 40 mg PO AC-BRKFST #30 tablet. 11/06/17 [Rx] Thiamine [Vitamin B-1] 100 mg PO BID@1200,1700 #30 tab 11/06/17 [Rx] Follow up Appointment(s)/Referral(s): [facility] [Outside] - 11/07/17 10:00 am (Intake appointment. ) Veena Bynum DO [Primary Care Provider] - 3 Days Patient Instructions/Handouts: Dental Abscess (GEN), Abuse of Alcohol (DC) Activity/Diet/Wound Care/Special Instructions: Cardiac diet. Activity as tolerated. NO alcohol, references for cessation given. Discharge Disposition: OTHER INSTITUTION NOT DEFINED
== END 2017-11-07 07:08 | DRG 158 ==
LOC: EC 12:04 → 4MS4W 16:08
PROVIDERS: ADMIT Hospitalist; ATTEND Hospitalist
DX: K04.7 Periapical abscess without sinus (principal); F10.239 Alcohol dependence with withdrawal, unspecified; E83.42 Hypomagnesemia; F32.9 Major depressive disorder, single episode, unspecified; F41.9 Anxiety disorder, unspecified; G47.30 Sleep apnea, unspecified; I10 Essential (primary) hypertension; K21.9 Gastro-esophageal reflux disease without esophagitis; K29.20 Alcoholic gastritis without bleeding; S02.5XXA Fracture of tooth (traumatic), initial encounter for closed fracture; T46.4X5A Adverse effect of angiotensin-converting-enzyme inhibitors, initial encounter; Y90.6 Blood alcohol level of 120-199 mg/100 ml; Z79.899 Other long term (current) drug therapy; Z80.8 Family history of malignant neoplasm of other organs or systems; Z82.0 Family history of epilepsy and other diseases of the nervous system; Z82.49 Family history of ischemic heart disease and other diseases of the circulatory system; Z71.41 Alcohol abuse counseling and surveillance of alcoholic
CPT/HCPCS: 36415; 80053; 80076; 80320; 82150; 83690; 83735; 84132; 85025; 93005; 96361; 96365; 96375; 96376; 99284

== ENCOUNTER → 2018-02-11 | Outpatient (CLI) | payer OTHER ==
--- NOTE | 2018-02-11 14:02 | MR ---
EXAMINATION TYPE: MR knee RT wo con DATE OF EXAM: 02/11/2018 COMPARISON: HISTORY: Internal derangements of right knee TECHNIQUE: Multiplanar, multisequence imaging of the right knee is performed without IV contrast. FINDINGS: MEDIAL MENISCUS: There is some minimal increased signal within the posterior meniscus. This may be de generative in nature. Anterior horn of the medial meniscus is normal LATERAL MENISCUS: Anterior and posterior horns are intact without tear. CRUCIATE LIGAMENTS: The anterior and posterior cruciate ligaments are intact and unremarkable. COLLATERAL LIGAMENTS: The medial collateral ligament and lateral collateral ligament complex are inta ct and unremarkable. EXTENSOR MECHANISM: Visualized quadriceps and patellar tendons are intact. EFFUSION: No significant suprapatellar joint effusion. POPLITEAL CYST: No popliteal/hall cyst. TRICOMPARTMENT SPACES: There is narrowing of the medial and lateral compartment joint spaces. There i s narrowing of the patellofemoral joint space. CARTILAGE: There is mild thinning of the lateral compartment articular cartilage. There is more advan adelina loss of articular cartilage from the posterior patella. There is some preservation of the anterio r patellofemoral joint space articular cartilage on the femur. BONE MARROW SIGNAL: No focal abnormal marrow signal is appreciated. OTHER: No additional significant abnormality is appreciated. IMPRESSION: 1. Moderately advanced articular cartilage lost from the posterior patella. Milder loss of articular cartilage is at the medial compartment joint space. 2. Suspected degenerative change posterior horn medial meniscus. Minimal type I internal derangement is felt to be less likely.
== END | disposition home or self-care (01) ==
LOC: RADMRIMAIN 07:47
PROVIDERS: ATTEND Family Medicine
DX: M23.8X1 Other internal derangements of right knee (principal)

== ENCOUNTER 2018-03-27 05:34 | Inpatient (IN) | payer OTHER ==
[2018-03-27] MEDS ORDERED: SODIUM CHLORIDE 0.9% 2,000 ML IV STA (05:44)
[2018-03-27] MEDS ORDERED: ONDANSETRON 4 MG/2 ML VIAL IVP STA (05:44)
[2018-03-27 06:17] LABS: Basophils % (A) 0 %; Eosinophils % (A) 1 %; HGB 15.2 gm/dL (13.0-17.5); Lymphocytes # (A) 1.5 k/uL (1.0-4.8); Lymphocytes % (A) 24 %; MCH 29.9 pg (25.0-35.0); MCHC 32.4 g/dL (31.0-37.0); MCV 92.4 fL (80.0-100.0); Mean Platelet Volume 7.2; Monocytes # (A) 0.3 k/uL (0-1.0); Monocytes % (A) 4 %; Neutrophils # (A) 4.1 k/uL (1.3-7.7); Neutrophils % (A) 69 %; Platelet Count 137 k/uL (150-450); RBC 5.09 m/uL (4.30-5.90); RDW 12.9 % (11.5-15.5)
--- NOTE | 2018-03-27 06:18 | ED ---
General Adult HPI - General Chief complaint: Nausea/Vomiting/Diarrhea Stated complaint: chest pain Time Seen by Provider: 03/27/18 05:44 Source: patient, EMS Mode of arrival: EMS Limitations: no limitations - History of Present Illness Initial comments: Nick is a 42-year-old male with a history of alcohol abuse who presents to emergency department today for evaluation of nausea, vomiting, tremor and feeling unwell. Patient reports that he has been trying to cut back on drinking. He reports that his last drink was yesterday. He states that she woke this morning is feeling very shaky, he's been nauseated and having some vomiting. He reports that this is similar to previous episodes of alcohol withdrawal. Patient reports he hasn't been able to eat or drink well due to nausea and feeling tremulous. The patient denies any chest pain, shortness of breath, diaphoresis - Related Data Home Medications Medication Instructions Recorded Confirmed ALPRAZolam [Xanax] 1 mg PO BID PRN 11/03/17 11/03/17 Albuterol Inhaler [Ventolin Hfa 1 - 2 puff INHALATION RT-Q6H PRN 11/03/17 Inhaler] Gabapentin [Neurontin] 600 mg PO TID 11/03/17 11/03/17 Losartan [Cozaar] 25 mg PO DAILY 11/03/17 11/03/17 traZODone HCL [Desyrel] 100 mg PO HS 11/03/17 11/03/17 Previous Rx's Medication Instructions Recorded Pantoprazole [Protonix] 40 mg PO DAILY #30 tablet. 07/29/17 Carvedilol [Coreg*] 12.5 mg PO BID-W/MEALS #60 tab 11/06/17 Clindamycin [Cleocin] 450 mg PO Q6H 7 Days #28 cap 11/06/17 Folic Acid 1 mg PO DAILY #30 tablet 11/06/17 LORazepam [Ativan] 0.5 mg PO DIRECTED #24 tab 11/06/17 Magnesium Oxide [Mag-Ox] 400 mg PO BID 7 Days #14 tab 11/06/17 Pantoprazole [Protonix] 40 mg PO AC-BRKFST #30 tablet. 11/06/17 Thiamine [Vitamin B-1] 100 mg PO BID@1200,1700 #30 tab 11/06/17 Ondansetron [Zofran ODT] 4 mg PO Q8HR #12 tab 03/27/18 Allergies Allergy/AdvReac Type Severity Reaction Status Date / Time Cephalosporins Allergy Severe Anaphylaxis Verified 11/03/17 12:27 diphenhydramine HCl Allergy Severe Anaphylaxis Verified 11/03/17 12:27 [From Benadryl] divalproex sodium Allergy Severe Anaphylaxis Verified 11/03/17 12:27 [From Depakote] ceftriaxone [From Rocephin] Allergy Unknown Verified 11/03/17 12:27 cephalexin [From Keflex] Allergy Unknown Verified 11/03/17 12:27 lisinopril Allergy Unknown Verified 11/03/17 12:27 Review of Systems ROS Statement: Those systems with pertinent positive or pertinent negative responses have been documented in the HPI. ROS Other: All systems not noted in ROS Statement are negative. Past Medical History Past Medical History: GERD/Reflux, Hypertension, Osteoarthritis (OA), Pneumonia , Seizure Disorder, Sleep Apnea/CPAP/BIPAP Additional Past Medical History / Comment(s): Alcoholism, ETOH withdrawals, mild alcohol hepatitis, upper GI bleed, gastritis, had episode of "fainting" 1 yrs ago and told he had a seizurepossible alcoholic seizures/blackouts, bilateral varicose veins, spinal stenosis with surgery, herniated disc, MILIND no CPAP, hemorrhoids. History of Any Multi-Drug Resistant Organisms: None Reported Past Surgical History: Appendectomy, Back Surgery, Tonsillectomy Additional Past Surgical History / Comment(s): 07/13/17 EGD, 4-7-16 LAMINECTOMY, bilateral DISCETOMY L5-S1. Past Anesthesia/Blood Transfusion Reactions: Motion Sickness Past Psychological History: Anxiety, Depression Smoking Status: Former smoker Past Alcohol Use History: Abuse, Daily Past Drug Use History: Marijuana - Past Family History Father Family Medical History: Cancer, Dementia Additional Family Medical History / Comment(s): melanoma, parkinsons Mother Family Medical History: Hypertension, Musculoskeletal Disorder, Neurologic Disorder, Osteoarthritis (OA) Additional Family Medical History / Comment(s): . Had some motor neuron disease General Exam - General Exam Comments Initial Comments: Physical Exam GENERAL: Appears much older than stated age HENT: Normocephalic, Atraumatic. EYES: PERRL PULMONARY: Unlabored respirations. CARDIOVASCULAR: There is a regular rate and rhythm without any murmurs gallops or rubs. ABDOMEN: Soft and nontender with normal bowel sounds. SKIN: Skin is clear with no lesions or rashes and otherwise unremarkable. : Deferred NEUROLOGIC: Patient is alert and oriented x3. Moving all extremities spontaneously Tremulous MUSCULOSKELETAL: Normal extremities with adequate strength and full range of motion. No lower extremity swelling or edema. No calf tenderness. PSYCHIATRIC: Anxious Limitations: no limitations Limitations: no limitations Course Vital Signs 03/27/18 03/27/18 05:38 06:50 Temperature 99.8 F H Pulse Rate 98 92 Respiratory 19 18 Rate Blood Pressure 148/90 142/81 O2 Sat by Pulse 99 100 Oximetry EKG Findings - EKG Comments: EKG Findings:: EKG obtained at 5:40 AM, rate is 103, sinus tachycardia, there is muscle tremor noted in V1, TN intervals 160, QRS 96, QTC is 503, no acute ST elevations or depressions. Medical Decision Making - Medical Decision Making Patient was seen and evaluated history is obtained from the patient, patient is tremulous, nauseated vomiting, concern that he is in alcohol withdrawal EKG and labs ordered EKG is sinus tachycardia 2 of Ativan was ordered for tremulousness and agitation Labs with significant hypomagnesemia, IV replacement was ordered Alcohol is 91 Patient confirms that he wants to abstain from alcohol drinking, he states he's been trying to cut down. He thinks this is contributing to her symptoms. Considering the patient's tremors, symptoms of withdrawal and hypomagnesemia he warrants admission for IV electrolyte replacement and withdrawal monitoring. The patient is agreeable. Patient care was discussed with excepts the admission - Lab Data Result diagrams: 03/27/18 05:50 03/27/18 05:50 Lab Results 03/27/18 03/27/18 Range/Units 05:50 05:50 WBC 6.0 (3.8-10.6) k/uL RBC 5.09 (4.30-5.90) m/uL Hgb 15.2 (13.0-17.5) gm/dL Hct 47.0 (39.0-53.0) % MCV 92.4 (80.0-100.0) fL MCH 29.9 (25.0-35.0) pg MCHC 32.4 (31.0-37.0) g/dL RDW 12.9 (11.5-15.5) % Plt Count 137 L (150-450) k/uL Neutrophils % 69 % Lymphocytes % 24 % Monocytes % 4 % Eosinophils % 1 % Basophils % 0 % Neutrophils # 4.1 (1.3-7.7) k/uL Lymphocytes # 1.5 (1.0-4.8) k/uL Monocytes # 0.3 (0-1.0) k/uL Eosinophils # 0.0 (0-0.7) k/uL Basophils # 0.0 (0-0.2) k/uL Sodium 141 (137-145) mmol/L Potassium 4.4 (3.5-5.1) mmol/L Chloride 95 L (98-107) mmol/L Carbon Dioxide 25 (22-30) mmol/L Anion Gap 21 mmol/L BUN 8 L (9-20) mg/dL Creatinine 0.64 L (0.66-1.25) mg/dL Est GFR (CKD-EPI)AfAm >90 (>60 ml/min/1.73 sqM) Est GFR (CKD-EPI)NonAf >90 (>60 ml/min/1.73 sqM) Glucose 90 (74-99) mg/dL Calcium 9.0 (8.4-10.2) mg/dL Magnesium 1.2 L (1.6-2.3) mg/dL Total Bilirubin 3.2 H (0.2-1.3) mg/dL AST 323 H (17-59) U/L ALT 158 H (21-72) U/L Alkaline Phosphatase 58 (38-126) U/L Total Protein 7.4 (6.3-8.2) g/dL Albumin 4.7 (3.5-5.0) g/dL Lipase 98 (23-300) U/L Serum Alcohol 91 mg/dL Disposition Clinical Impression: Epigastric abdominal pain, Hypomagnesemia, Nausea and vomiting, Alcohol withdrawal Disposition: ADMITTED IP TO THIS HOSP Condition: Stable Prescriptions: Ondansetron [Zofran ODT] 4 mg PO Q8HR #12 tab Is patient prescribed a controlled substance at d/c from ED?: No Referrals: None,Stated [Primary Care Provider] - 1-2 days
[2018-03-27] MEDS ORDERED: LORazepam 2 MG/ML INJ IV STA (06:19)
[2018-03-27] MEDS ORDERED: MORPHINE SULFATE 4 MG/ML SYRINGE IVP STA (06:20)
[2018-03-27 06:30] LABS: ALT 158 U/L (21-72); AST 323 U/L (17-59); Albumin 4.7 g/dL (3.5-5.0); Alkaline Phosphatase 58 U/L (38-126); Anion Gap 21 mmol/L; Blood Urea Nitrogen 8 mg/dL (9-20); Carbon Dioxide 25 mmol/L (22-30); Chloride 95 mmol/L (98-107); Glucose 90 mg/dL (74-99); Lipase 98 U/L (23-300); Magnesium 1.2 mg/dL (1.6-2.3); Potassium 4.4 mmol/L (3.5-5.1); Sodium 141 mmol/L (137-145); Total Bilirubin 3.2 mg/dL (0.2-1.3); Total Protein 7.4 g/dL (6.3-8.2)
[2018-03-27 06:32] LABS: Alcohol 91 mg/dL
[2018-03-27] MEDS ORDERED: Magnesium Replacement Protocol 1 EACH MISC MISCELLANE PRN (07:26)
[2018-03-27] MEDS ORDERED: NALOXONE 0.4 MG/ML 1 ML VIAL IV PRN (07:40)
[2018-03-27] MEDS ORDERED: THIAMINE 100 MG/ML 2 ML VIAL IM STA (07:43)
[2018-03-27] MEDS ORDERED: LORazepam 2 MG/ML INJ IV PRN (07:43)
[2018-03-27] MEDS: LORazepam 2 MG/ML INJ IV PRN ×6 (09:03→23:49)
[2018-03-27] MEDS: MAGNESIUM SULFATE-D5W PMX 1 GM in DEXTROSE/WATER 1 100ML.BAG IVPB SCH ×3 (09:12→14:14)
[2018-03-27] MEDS: FAMOTIDINE 20 MG TAB PO SCH ×2 (11:04→21:06)
[2018-03-27] MEDS: THIAMINE 100 MG TAB PO SCH ×2 (11:04→17:01)
[2018-03-27 11:15] VITALS: BMI 31.6
[2018-03-27 12:47] LABS: Appearance,Urine Clear (Clear); Bilirubin,Urine Negative (Negative); Blood,Urine Negative (Negative); Color,Urine Yellow; Glucose,Urine (UA) Negative (Negative); Ketones,Urine Negative (Negative); Leukocyte Esterase,Urine Negative (Negative); Nitrite,Urine Negative (Negative); Protein,Urine Trace (Negative); Specific Gravity,Urine 1.014 (1.001-1.035)
[2018-03-27] MEDS: ONDANSETRON 4 MG/2 ML VIAL IVP PRN ×2 (15:18→23:40)
--- NOTE | 2018-03-27 18:59 | P.HPIM ---
History of Present Illness H&P Date: 03/27/18 Chief Complaint: Nausea vomiting and tremors Mr. Chiang is a 42-year-old male with a past medical history of alcohol abuse coming in with a chief complaint of nausea vomiting tremors and feeling unwell for the past couple of days. Patient reports that he has been trying to cut down on his drinking and started to have the symptoms and so came in to the hospital for further evaluation. Patient was also complaining of nausea along with some vomiting which she reports are similar to his previous episodes of alcohol withdrawal. Patient denies having any fevers chills or rigors. No chest pain or palpitations. No cough or difficulty in breathing. No dysuria or hematuria. No loss of consciousness or seizure-like activity. No focal weakness. Review of Systems REVIEW OF SYSTEMS: PSYCH: Normal psychiatric exam NEURO: Tremors VASCULAR: Peripheral nervous system within the normal limits no edema HEMATOLOGIC: No history of easy bleeding and bruising . No recent infections . RESPIRATORY: No cough, No SOB, No chest discomfort. IMMUNE: No infections INTEGUMENT: no rashes OPHTHALMOLOGIC: No blurry vision and no eye discharge : No dysuria or hematuria CARDIAC: No chest pain , shortness of breath , paroxysmal nocturnal dyspnea MUSCULOSKELETAL : No Aches or pains in the joints or muscles. GI: Positive as per HPI Past Medical History Past Medical History: GERD/Reflux, Hypertension, Osteoarthritis (OA), Pneumonia , Seizure Disorder, Sleep Apnea/CPAP/BIPAP Additional Past Medical History / Comment(s): Alcoholism, ETOH withdrawals, mild alcohol hepatitis, upper GI bleed, gastritis, had episode of "fainting" 1 yrs ago and told he had a seizurepossible alcoholic seizures/blackouts, bilateral varicose veins, spinal stenosis with surgery, herniated disc, MILIND no CPAP, hemorrhoids. History of Any Multi-Drug Resistant Organisms: None Reported Past Surgical History: Appendectomy, Back Surgery, Tonsillectomy Additional Past Surgical History / Comment(s): 07/13/17 EGD, 4 LAMINECTOMY, bilateral DISCETOMY L5-S1. Past Anesthesia/Blood Transfusion Reactions: Motion Sickness Smoking Status: Former smoker - Past Family History Father Family Medical History: Cancer, Dementia Additional Family Medical History / Comment(s): melanoma, parkinsons Mother Family Medical History: Hypertension, Musculoskeletal Disorder, Neurologic Disorder, Osteoarthritis (OA) Additional Family Medical History / Comment(s): . Had some motor neuron disease Medications and Allergies Home Medications Medication Instructions Recorded Confirmed Type ALPRAZolam [Xanax] 1 mg PO BID PRN 11/03/17 03/27/18 History Albuterol Inhaler [Ventolin Hfa 1 - 2 puff INHALATION RT-Q6H PRN 11/03/17 History Inhaler] Gabapentin [Neurontin] 600 mg PO TID 11/03/17 03/27/18 History Pantoprazole [Protonix] 40 mg PO AC-BRKFST #30 tablet. 11/06/17 03/27/18 Rx Thiamine [Vitamin B-1] 100 mg PO BID@1200,1700 #30 tab 11/06/17 03/27/18 Rx Fluticasone Nasal [place] [Flonase 2 spr EA NOSTRIL DAILY 03/27/18 03/27/18 History Nasal [place]] Ibuprofen 800 mg PO TID PRN 03/27/18 03/27/18 History Allergies Allergy/AdvReac Type Severity Reaction Status Date / Time Cephalosporins Allergy Severe Anaphylaxis Verified 03/27/18 13:11 diphenhydramine HCl Allergy Severe Anaphylaxis Verified 03/27/18 13:11 [From Benadryl] divalproex sodium Allergy Severe Anaphylaxis Verified 03/27/18 13:11 [From Depakote] ceftriaxone [From Rocephin] Allergy Unknown Verified 03/27/18 13:11 cephalexin [From Keflex] Allergy Unknown Verified 03/27/18 13:11 lisinopril Allergy Unknown Verified 03/27/18 13:11 Physical Exam Vitals: Vital Signs Temp Pulse Pulse Resp BP BP Pulse Ox 03/27/18 16:00 14 03/27/18 12:47 98.7 F 99 16 146/82 94 L 03/27/18 10:03 99.8 F H 89 16 155/90 97 03/27/18 09:27 89 16 155/90 97 03/27/18 08:52 98 22 155/90 97 03/27/18 06:50 92 18 142/81 100 03/27/18 05:38 99.8 F H 98 19 148/90 99 Intake and Output 03/27/18 03/27/18 03/27/18 06:59 14:59 22:59 Other: # Voids 3 Weight 108.862 kg 108.862 kg GENERAL EXAM GEN. APPEARANCE: alert, in no apparent distress HEAD EXAM: atraumatic, normocephalic, normal inspection EYE EXAM: normal appearance, PERRL, EOMI. Absent: scleral icterus, conjunctival injection, periorbital swelling ENT EXAM: normal exam, mucous membranes moist NECK EXAM: normal inspection. Absent: tenderness, meningismus, full ROM, lymphadenopathy RESPIRATORY EXAM: normal lung sounds bilaterally. Absent: respiratory distress , wheezes, rales, rhonchi, stridor CARDIOVASCULAR EXAM: regular rate, normal rhythm, normal heart sounds. Absent : systolic murmur, diastolic murmur, rubs, gallop, clicks GI/ABDOMINAL EXAM: soft, normal bowel sounds. Absent: distended, tenderness, guarding, rebound, rigid EXTREMITIES EXAM: normal inspection, full ROM, normal capillary refill. Absent : tenderness, pedal edema, joint swelling, calf tenderness NEUROLOGICAL EXAM: alert, oriented X3, no focal neurological deficits. Patient has tremors of his bilateral upper extremities. PSYCHIATRIC EXAM: normal affect, normal mood SKIN EXAM: warm, dry, intact, normal color. Absent: rash Results CBC & Chem 7: 03/27/18 05:50 03/27/18 05:50 Labs: Abnormal Lab Results - Last 24 Hours (Table) 03/27/18 03/27/18 03/27/18 Range/Units 05:50 05:50 12:26 Plt Count 137 L (150-450) k/uL Chloride 95 L (98-107) mmol/L BUN 8 L (9-20) mg/dL Creatinine 0.64 L (0.66-1.25) mg/dL Magnesium 1.2 L (1.6-2.3) mg/dL Total Bilirubin 3.2 H (0.2-1.3) mg/dL AST 323 H (17-59) U/L ALT 158 H (21-72) U/L Urine Protein Trace H (Negative) Thrombosis Risk Factor Assmnt - Choose All That Apply Any of the Below Risk Factors Present?: Yes Each Factor Represents 1 point: Age 41-60 years Other Risk Factors: No Other congenital or acquired thrombophilia - If yes, enter type in comment: No Thrombosis Risk Factor Assessment Total Risk Factor Score: 1 Thrombosis Risk Factor Assessment Level: Low Risk Assessment and Plan Assessment: ASSESSMENT Abdominal pain with nausea and vomiting secondary to alcohol withdrawal Delirium tremens Hypomagnesemia Chronic alcohol abuse Elevated AST and ALT Plan: We'll monitor the patient for delirium tremens. Patient has been getting Ativan on when necessary basis. Supplement electrolytes. His nausea and vomiting seemed to be improved. He is tolerating by mouth. We'll continue with the current medication regimen. Further admonitions to follow depending on the progress of the patient.
[2018-03-28] MEDS: LORazepam 2 MG/ML INJ IV PRN ×7 (02:00→19:00)
[2018-03-28 06:59] LABS: Basophils % (A) 1 %; Eosinophils # (A) 0.1 k/uL (0-0.7); Eosinophils % (A) 3 %; HGB 13.5 gm/dL (13.0-17.5); Lymphocytes # (A) 1.2 k/uL (1.0-4.8); Lymphocytes % (A) 27 %; MCH 31.2 pg (25.0-35.0); MCHC 32.9 g/dL (31.0-37.0); MCV 94.9 fL (80.0-100.0); Mean Platelet Volume 8.2; Monocytes # (A) 0.3 k/uL (0-1.0); Monocytes % (A) 6 %; Neutrophils # (A) 2.7 k/uL (1.3-7.7); Neutrophils % (A) 62 %; Platelet Count 100 k/uL (150-450); RBC 4.32 m/uL (4.30-5.90); RDW 12.7 % (11.5-15.5); WBC 4.4 k/uL (3.8-10.6)
[2018-03-28 07:03] LABS: ALT 104 U/L (21-72); AST 179 U/L (17-59); Albumin 3.6 g/dL (3.5-5.0); Alkaline Phosphatase 53 U/L (38-126); Anion Gap 8 mmol/L; Blood Urea Nitrogen 11 mg/dL (9-20); Calcium 8.6 mg/dL (8.4-10.2); Carbon Dioxide 30 mmol/L (22-30); Chloride 99 mmol/L (98-107); Glucose 87 mg/dL (74-99); Magnesium 1.7 mg/dL (1.6-2.3); Potassium 4.8 mmol/L (3.5-5.1); Sodium 137 mmol/L (137-145); Total Bilirubin 3.5 mg/dL (0.2-1.3); Total Protein 6.1 g/dL (6.3-8.2)
[2018-03-28] MEDS: FAMOTIDINE 20 MG TAB PO SCH ×2 (07:20→20:34)
[2018-03-28] MEDS: ONDANSETRON 4 MG/2 ML VIAL IVP PRN (07:20)
[2018-03-28] MEDS: MAGNESIUM SULFATE-D5W PMX 1 GM in DEXTROSE/WATER 1 100ML.BAG IVPB SCH ×2 (08:21→09:37)
[2018-03-28] MEDS: THIAMINE 100 MG TAB PO SCH ×2 (12:49→18:19)
[2018-03-28] MEDS: KETOROLAC 30 MG/ML 1 ML VIAL IVP PRN ×2 (15:21→20:34)
--- NOTE | 2018-03-28 15:54 | P.PN ---
Subjective Progress Note Date: 03/28/18 Principal diagnosis: Delirium tremens Mr. Chiang is a 42-year-old male with a past medical history of alcohol abuse coming in with a chief complaint of nausea vomiting tremors and feeling unwell for the past couple of days. Patient reports that he has been trying to cut down on his drinking and started to have the symptoms and so came in to the hospital for further evaluation. Patient was also complaining of nausea along with some vomiting which she reports are similar to his previous episodes of alcohol withdrawal. Patient denies having any fevers chills or rigors. No chest pain or palpitations. No cough or difficulty in breathing. No dysuria or hematuria. No loss of consciousness or seizure-like activity. No focal weakness. Today the patient is lying in bed appears to be no acute distress.: No active issues reported by the nursing staff. Patient is still requiring Ativan on when necessary basis. REVIEW OF SYSTEMS: NEURO: Tremors RESPIRATORY: No cough, No SOB, No chest discomfort. GI- no abdominal pain. Mild nausea. No vomiting. Cardiovascular-denies chest pain or palpitations. Objective - Vital Signs Vital signs: Vital Signs Temp 98.4 F 03/28/18 06:18 Pulse 80 03/28/18 06:18 Resp 18 03/28/18 06:18 BP 149/98 03/28/18 06:18 Pulse Ox 99 03/28/18 06:18 Intake & Output 03/27/18 03/28/18 03/28/18 18:59 06:59 18:59 Intake Total 250 Balance 250 Weight 108.862 kg Intake: Oral 250 Other: # Voids 3 1 - Exam GEN. APPEARANCE: alert, in no apparent distress HEAD EXAM: atraumatic, normocephalic, normal inspection EYE EXAM: No pallor or icterus ENT EXAM: normal exam, mucous membranes moist NECK EXAM: normal inspection. Absent: tenderness, meningismus, full ROM, lymphadenopathy RESPIRATORY EXAM: normal lung sounds bilaterally. Absent: respiratory distress , wheezes, rales, rhonchi, stridor CARDIOVASCULAR EXAM: regular rate, normal rhythm, normal heart sounds. Absent : systolic murmur, diastolic murmur, rubs, gallop, clicks GI/ABDOMINAL EXAM: soft, normal bowel sounds. Absent: distended, tenderness, guarding, rebound, rigid EXTREMITIES EXAM: normal inspection, full ROM, normal capillary refill. Absent : tenderness, pedal edema, joint swelling, calf tenderness NEUROLOGICAL EXAM: alert, oriented X3, no focal neurological deficits. Patient has tremors of his bilateral upper extremities. PSYCHIATRIC EXAM: normal affect, normal mood SKIN EXAM: warm, dry, intact, normal color. Absent: rash - Labs CBC & Chem 7: 03/28/18 06:08 03/28/18 06:08 Labs: Abnormal Lab Results - Last 24 Hours (Table) 03/27/18 03/28/18 03/28/18 Range/Units 12:26 06:08 06:08 Plt Count 100 L (150-450) k/uL Creatinine 0.64 L (0.66-1.25) mg/dL Total Bilirubin 3.5 H (0.2-1.3) mg/dL AST 179 H (17-59) U/L ALT 104 H (21-72) U/L Total Protein 6.1 L (6.3-8.2) g/dL Urine Protein Trace H (Negative) Assessment and Plan Assessment: ASSESSMENT Abdominal pain with nausea and vomiting secondary to alcohol withdrawal Delirium tremens Hypomagnesemia Chronic alcohol abuse Elevated AST and ALT Thrombocytopenia Plan: We'll monitor the patient for delirium tremens. Patient has been getting Ativan on when necessary basis. Supplement electrolytes. His nausea and vomiting seemed to be improved. He is tolerating by mouth. We'll continue with the current medication regimen. Further admonitions to follow depending on the progress of the patient. Anticipate discharge in the next 24 hours.
[2018-03-29] MEDS: LORazepam 2 MG/ML INJ IV PRN ×9 (00:05→23:22)
[2018-03-29] MEDS: KETOROLAC 30 MG/ML 1 ML VIAL IVP PRN ×4 (02:44→23:22)
[2018-03-29] MEDS: ONDANSETRON 4 MG/2 ML VIAL IVP PRN ×2 (04:34→13:33)
[2018-03-29] MEDS: FAMOTIDINE 20 MG TAB PO SCH ×2 (08:29→20:20)
[2018-03-29 11:56] LABS: Basophils % (A) 0 %; Eosinophils # (A) 0.1 k/uL (0-0.7); Eosinophils % (A) 3 %; HCT 38.8 % (39.0-53.0); HGB 13.1 gm/dL (13.0-17.5); Lymphocytes # (A) 1.3 k/uL (1.0-4.8); Lymphocytes % (A) 26 %; MCH 32.1 pg (25.0-35.0); MCHC 33.9 g/dL (31.0-37.0); MCV 94.7 fL (80.0-100.0); Mean Platelet Volume 8.2; Monocytes # (A) 0.3 k/uL (0-1.0); Monocytes % (A) 5 %; Neutrophils # (A) 3.3 k/uL (1.3-7.7); Neutrophils % (A) 64 %; Platelet Count 108 k/uL (150-450); RDW 12.6 % (11.5-15.5); WBC 5.1 k/uL (3.8-10.6)
[2018-03-29 12:06] LABS: Anion Gap 5 mmol/L; Blood Urea Nitrogen 15 mg/dL (9-20); Carbon Dioxide 30 mmol/L (22-30); Chloride 102 mmol/L (98-107); Glucose 88 mg/dL (74-99); Magnesium 1.6 mg/dL (1.6-2.3); Potassium 5.3 mmol/L (3.5-5.1); Sodium 137 mmol/L (137-145)
[2018-03-29] MEDS: HYDROCHLOROTHIAZIDE 25 MG TAB PO SCH (12:09)
[2018-03-29] MEDS: THIAMINE 100 MG TAB PO SCH ×2 (12:09→17:13)
[2018-03-29] MEDS: CALCIUM CARBONATE 500 MG CHEWABLE PO PRN (12:13)
--- NOTE | 2018-03-29 12:47 | CDI ---
Last Revision, May 2017 Documentation Clarification Form Date: 03/29/2018 12:19:37 PM From: Dalila Valencia RN, CCDS Admit Date: 03/27/2018 7:40:00 AM Patient Name: Nick Chiang Visit Number: [id number] Discharge Date: ATTENTION: The Clinical Documentation Specialists (CDI) and [facility] Coding Staff appreciate your assistance in clarifying documentation. Please respond to the clarification below the line at the bottom and electronically sign. The CDI & [facility] Coding staff will review the response and follow-up if needed. Please note: Queries are made part of the Legal Health Record. If you have any questions, please contact the author of this message via ITS. Carleen Fields MD Documentation states: Thrombocytopenia History/Risk Factors: Chronic alcohol abuse, Delirium tremens, Clinical indicators: Present with complaints of nausea, vomiting, diarrhea and feeling tremulous. He reports that his last drink was 03/26/18. He has no dysuria or hematuria. Abnormal Labs: Plt Count : 137, 100 Treatment: Monitor Labs Clinical significance of diagnostic testing and treatment CANNOT be assumed or coded without physician documentation of significance if any. Please further clarify thrombocytopenia, etiology or what it signifies if known: Disease process, please specify (due to) Unable to determine Other, please specify Please continue to document in your progress notes and discharge summary in order to capture severity of illness and risk of mortality. Include clinical findings that support your diagnosis. Thrombocytopenia due to chronic liver disease MTDD
[2018-03-29] MEDS: MAGNESIUM SULFATE-D5W PMX 1 GM in DEXTROSE/WATER 1 100ML.BAG IVPB SCH ×2 (18:31→20:20)
--- NOTE | 2018-03-29 18:44 | P.PN ---
Subjective Progress Note Date: 03/29/18 Principal diagnosis: Delirium tremens Mr. Chiang is a 42-year-old male with a past medical history of alcohol abuse coming in with a chief complaint of nausea vomiting tremors and feeling unwell for the past couple of days. Patient reports that he has been trying to cut down on his drinking and started to have the symptoms and so came in to the hospital for further evaluation. Patient was also complaining of nausea along with some vomiting which she reports are similar to his previous episodes of alcohol withdrawal. Patient denies having any fevers chills or rigors. No chest pain or palpitations. No cough or difficulty in breathing. No dysuria or hematuria. No loss of consciousness or seizure-like activity. No focal weakness. Today the patient is lying in bed appears to be no acute distress.: No active issues reported by the nursing staff. Patient is still requiring Ativan - 3-4 times last night. REVIEW OF SYSTEMS: NEURO: Tremors RESPIRATORY: No cough, No SOB, No chest discomfort. GI- has mild epigastric pain Cardiovascular-denies chest pain or palpitations. Objective - Vital Signs Vital signs: Vital Signs Temp 98.3 F 03/29/18 15:48 Pulse 68 03/29/18 15:48 Resp 16 03/29/18 15:48 BP 124/70 03/29/18 15:48 Pulse Ox 97 03/29/18 15:48 Intake & Output 03/28/18 03/29/18 03/29/18 18:59 06:59 18:59 Intake Total 290 1080 Balance 290 1080 Intake: Intake, IV Titration 50 Amount Magnesium Sulfate-D5w Pmx 50 1 gm In Dextrose/Water 1 100ml.bag @ 100 mls/hr IVPB Q1H [facility] Rx#: [id number] Oral 240 1080 Other: Voiding Method Toilet Urinal # Voids 2 3 - Exam GEN. APPEARANCE: alert, in no apparent distress HEAD EXAM: atraumatic, normocephalic, normal inspection EYE EXAM: No pallor or icterus ENT EXAM: normal exam, mucous membranes moist NECK EXAM: normal inspection. Absent: tenderness, meningismus, full ROM, lymphadenopathy RESPIRATORY EXAM: normal lung sounds bilaterally. Absent: respiratory distress , wheezes, rales, rhonchi, stridor CARDIOVASCULAR EXAM: regular rate, normal rhythm, normal heart sounds. Absent : systolic murmur, diastolic murmur, rubs, gallop, clicks GI/ABDOMINAL EXAM: soft, normal bowel sounds. Absent: distended, tenderness, guarding, rebound, rigid EXTREMITIES EXAM: normal inspection, full ROM, normal capillary refill. Absent : tenderness, pedal edema, joint swelling, calf tenderness NEUROLOGICAL EXAM: alert, oriented X3, no focal neurological deficits. Patient has tremors of his bilateral upper extremities. PSYCHIATRIC EXAM: normal affect, normal mood SKIN EXAM: warm, dry, intact, normal color. Absent: rash - Labs CBC & Chem 7: 03/29/18 11:21 03/29/18 11:21 Labs: Abnormal Lab Results - Last 24 Hours (Table) 03/29/18 03/29/18 Range/Units 11:21 11:21 RBC 4.10 L (4.30-5.90) m/uL Hct 38.8 L (39.0-53.0) % Plt Count 108 L (150-450) k/uL Potassium 5.3 H (3.5-5.1) mmol/L Creatinine 0.63 L (0.66-1.25) mg/dL Assessment and Plan Assessment: ASSESSMENT Abdominal pain with nausea and vomiting secondary to alcohol withdrawal Delirium tremens Hypomagnesemia Chronic alcohol abuse Elevated AST and ALT Thrombocytopenia - due to liver cirrhosis Plan: We'll monitor the patient for delirium tremens. Patient has been getting Ativan on when necessary basis. Supplement electrolytes. His nausea and vomiting seemed to be improved. He is tolerating by mouth. We'll continue with the current medication regimen. Further admonitions to follow depending on the progress of the patient. Anticipate discharge in the next 24 hours.
[2018-03-30] MEDS: KETOROLAC 30 MG/ML 1 ML VIAL IVP PRN ×3 (04:33→19:40)
[2018-03-30] MEDS: LORazepam 2 MG/ML INJ IV PRN ×7 (04:34→22:43)
[2018-03-30] MEDS: ONDANSETRON 4 MG/2 ML VIAL IVP PRN (07:18)
[2018-03-30 07:52] LABS: Basophils % (A) 0 %; Eosinophils # (A) 0.1 k/uL (0-0.7); Eosinophils % (A) 1 %; HCT 40.3 % (39.0-53.0); Lymphocytes # (A) 1.5 k/uL (1.0-4.8); Lymphocytes % (A) 21 %; MCH 29.8 pg (25.0-35.0); MCHC 32.3 g/dL (31.0-37.0); MCV 92.4 fL (80.0-100.0); Mean Platelet Volume 7.9; Monocytes # (A) 0.3 k/uL (0-1.0); Monocytes % (A) 5 %; Neutrophils # (A) 4.8 k/uL (1.3-7.7); Neutrophils % (A) 70 %; Platelet Count 112 k/uL (150-450); RBC 4.36 m/uL (4.30-5.90); RDW 12.7 % (11.5-15.5); WBC 6.8 k/uL (3.8-10.6)
[2018-03-30 08:13] LABS: ALT 118 U/L (21-72); AST 179 U/L (17-59); Albumin 3.8 g/dL (3.5-5.0); Alkaline Phosphatase 40 U/L (38-126); Anion Gap 8 mmol/L; Blood Urea Nitrogen 17 mg/dL (9-20); Calcium 9.2 mg/dL (8.4-10.2); Carbon Dioxide 30 mmol/L (22-30); Chloride 100 mmol/L (98-107); Glucose 80 mg/dL (74-99); Lipase 50 U/L (23-300); Magnesium 1.7 mg/dL (1.6-2.3); Potassium 5.1 mmol/L (3.5-5.1); Sodium 138 mmol/L (137-145); Total Bilirubin 1.9 mg/dL (0.2-1.3); Total Protein 6.3 g/dL (6.3-8.2)
[2018-03-30] MEDS: THIAMINE 100 MG TAB PO SCH ×2 (11:09→15:58)
[2018-03-30] MEDS: HYDROCHLOROTHIAZIDE 25 MG TAB PO SCH (11:09)
[2018-03-30] MEDS: FAMOTIDINE 20 MG TAB PO SCH ×2 (11:09→19:40)
[2018-03-30] MEDS: CALCIUM CARBONATE 500 MG CHEWABLE PO PRN (11:10)
--- NOTE | 2018-03-30 21:47 | P.PN ---
Subjective Progress Note Date: 03/30/18 Principal diagnosis: Delirium tremens Mr. Chiang is a 42-year-old male with a past medical history of alcohol abuse coming in with a chief complaint of nausea vomiting tremors and feeling unwell for the past couple of days. Patient reports that he has been trying to cut down on his drinking and started to have the symptoms and so came in to the hospital for further evaluation. Patient was also complaining of nausea along with some vomiting which she reports are similar to his previous episodes of alcohol withdrawal. Patient denies having any fevers chills or rigors. No chest pain or palpitations. No cough or difficulty in breathing. No dysuria or hematuria. No loss of consciousness or seizure-like activity. No focal weakness. On 03/30/18 - the patient is lying in bed appears to be no acute distress. As per the nursing staff, patient is still requiring Ativan frequently. REVIEW OF SYSTEMS: NEURO: Tremors RESPIRATORY: No cough, No SOB, No chest discomfort. GI- has mild epigastric pain Cardiovascular-denies chest pain or palpitations. Objective - Vital Signs Vital signs: Vital Signs Temp 98.4 F 03/30/18 07:38 Pulse 71 03/30/18 07:38 Resp 18 03/30/18 07:38 BP 146/72 03/30/18 07:38 Pulse Ox 100 03/30/18 00:16 Intake & Output 03/29/18 03/30/18 03/30/18 18:59 06:59 18:59 Intake Total 200 Balance 200 Intake: Intake, IV Titration 200 Amount Magnesium Sulfate-D5w Pmx 200 1 gm In Dextrose/Water 1 100ml.bag @ 100 mls/hr IVPB Q1H [facility] Rx#: [id number] Other: Voiding Method Toilet Urinal # Voids 3 1 2 # Bowel Movements 1 - Exam GEN. APPEARANCE: alert, in no apparent distress HEAD EXAM: atraumatic, normocephalic, normal inspection EYE EXAM: No pallor or icterus ENT EXAM: normal exam, mucous membranes moist NECK EXAM: normal inspection. Absent: tenderness, meningismus, full ROM, lymphadenopathy RESPIRATORY EXAM: normal lung sounds bilaterally. Absent: respiratory distress , wheezes, rales, rhonchi, stridor CARDIOVASCULAR EXAM: regular rate, normal rhythm, normal heart sounds. Absent : systolic murmur, diastolic murmur, rubs, gallop, clicks GI/ABDOMINAL EXAM: soft, normal bowel sounds. Absent: distended, tenderness, guarding, rebound, rigid EXTREMITIES EXAM: normal inspection, full ROM, normal capillary refill. Absent : tenderness, pedal edema, joint swelling, calf tenderness NEUROLOGICAL EXAM: alert, oriented X3, no focal neurological deficits. Patient has tremors of his bilateral upper extremities. PSYCHIATRIC EXAM: normal affect, normal mood SKIN EXAM: warm, dry, intact, normal color. Absent: rash - Labs CBC & Chem 7: 03/30/18 06:52 03/30/18 06:52 Labs: Abnormal Lab Results - Last 24 Hours (Table) 03/30/18 03/30/18 Range/Units 06:52 06:52 Plt Count 112 L (150-450) k/uL Total Bilirubin 1.9 H (0.2-1.3) mg/dL AST 179 H (17-59) U/L ALT 118 H (21-72) U/L Assessment and Plan Assessment: ASSESSMENT Delirium tremens Abdominal pain with nausea and vomiting - secondary to alcohol withdrawal Hypomagnesemia Chronic alcohol abuse Elevated AST and ALT Thrombocytopenia - due to liver cirrhosis Plan: Will continue to monitor the patient for delirium tremens. Patient has been getting Ativan on when necessary basis. Supplement electrolytes. His nausea and vomiting seemed to be improved. He is tolerating by mouth. We'll continue with the current medication regimen. Further recommendations based on the clinical course. Anticipate discharge in the next 24 hours.
[2018-03-31] MEDS: LORazepam 2 MG/ML INJ IV PRN ×6 (02:51→23:54)
[2018-03-31] MEDS: KETOROLAC 30 MG/ML 1 ML VIAL IVP PRN (08:19)
[2018-03-31] MEDS: HYDROCHLOROTHIAZIDE 25 MG TAB PO SCH (08:19)
[2018-03-31] MEDS: CALCIUM CARBONATE 500 MG CHEWABLE PO PRN (11:31)
[2018-03-31] MEDS: FAMOTIDINE 20 MG TAB PO SCH ×2 (11:31→20:53)
[2018-03-31] MEDS: ONDANSETRON 4 MG/2 ML VIAL IVP PRN ×2 (11:32→23:54)
[2018-03-31] MEDS: THIAMINE 100 MG TAB PO SCH ×2 (13:33→19:30)
[2018-03-31] MEDS: MAGNESIUM SULFATE-D5W PMX 1 GM in DEXTROSE/WATER 1 100ML.BAG IVPB SCH ×2 (13:33→15:17)
[2018-04-01] MEDS: LORazepam 2 MG/ML INJ IV PRN ×5 (04:07→23:40)
[2018-04-01] MEDS: KETOROLAC 30 MG/ML 1 ML VIAL IVP PRN (05:32)
[2018-04-01] MEDS: ONDANSETRON 4 MG/2 ML VIAL IVP PRN ×2 (07:26→14:46)
[2018-04-01] MEDS: CALCIUM CARBONATE 500 MG CHEWABLE PO PRN (07:27)
[2018-04-01] MEDS: FAMOTIDINE 20 MG TAB PO SCH ×2 (07:27→20:26)
[2018-04-01] MEDS: HYDROCHLOROTHIAZIDE 25 MG TAB PO SCH (07:27)
[2018-04-01] MEDS ORDERED: MAGNESIUM SULFATE-D5W PMX 1 GM in DEXTROSE/WATER 1 100ML.BAG IVPB ONE (10:00)
[2018-04-01] MEDS: THIAMINE 100 MG TAB PO SCH ×2 (10:03→17:22)
--- NOTE | 2018-04-02 03:31 | P.PN ---
Subjective Progress Note Date: 03/31/18 Principal diagnosis: Delirium tremens Mr. Chiang is a 42-year-old male with a past medical history of alcohol abuse coming in with a chief complaint of nausea vomiting tremors and feeling unwell for the past couple of days. Patient reports that he has been trying to cut down on his drinking and started to have the symptoms and so came in to the hospital for further evaluation. Patient was also complaining of nausea along with some vomiting which she reports are similar to his previous episodes of alcohol withdrawal. Patient denies having any fevers chills or rigors. No chest pain or palpitations. No cough or difficulty in breathing. No dysuria or hematuria. No loss of consciousness or seizure-like activity. No focal weakness. On 03/30/18 - the patient is lying in bed appears to be no acute distress. As per the nursing staff, patient is still requiring Ativan frequently. 03/31/2018 Patient says that he still weak and requesting to stay one more day. Otherwise still requiring IV Ativan. Medications level is 1.4 which is being replaced otherwise. Anticipate discharge in next 24 hours with more clinical improvement. Continue with alcohol withdrawal protocol. REVIEW OF SYSTEMS: NEURO: Tremors RESPIRATORY: No cough, No SOB, No chest discomfort. GI- has mild epigastric pain Cardiovascular-denies chest pain or palpitations. Objective - Vital Signs Vital signs: Vital Signs Temp 97.9 F 03/31/18 19:42 Pulse 68 03/31/18 19:42 Resp 16 03/31/18 19:42 BP 128/83 03/31/18 19:42 Pulse Ox 99 03/31/18 19:42 Intake & Output 03/31/18 03/31/18 04/01/18 06:59 18:59 06:59 Intake Total 1440 Balance 1440 Intake: Intake, IV Titration 200 Amount Magnesium Sulfate-D5w Pmx 200 1 gm In Dextrose/Water 1 100ml.bag @ 100 mls/hr IVPB Q1H [facility] Rx#: [id number] Oral 1240 Other: Voiding Method Toilet # Voids 1 2 - Exam GEN. APPEARANCE: alert, in no apparent distress HEAD EXAM: atraumatic, normocephalic, normal inspection EYE EXAM: No pallor or icterus ENT EXAM: normal exam, mucous membranes moist NECK EXAM: normal inspection. Absent: tenderness, meningismus, full ROM, lymphadenopathy RESPIRATORY EXAM: normal lung sounds bilaterally. Absent: respiratory distress , wheezes, rales, rhonchi, stridor CARDIOVASCULAR EXAM: regular rate, normal rhythm, normal heart sounds. Absent : systolic murmur, diastolic murmur, rubs, gallop, clicks GI/ABDOMINAL EXAM: soft, normal bowel sounds. Absent: distended, tenderness, guarding, rebound, rigid EXTREMITIES EXAM: normal inspection, full ROM, normal capillary refill. Absent : tenderness, pedal edema, joint swelling, calf tenderness NEUROLOGICAL EXAM: alert, oriented X3, no focal neurological deficits. Patient has tremors of his bilateral upper extremities. PSYCHIATRIC EXAM: normal affect, normal mood SKIN EXAM: warm, dry, intact, normal color. Absent: rash - Labs CBC & Chem 7: 03/30/18 06:52 03/30/18 06:52 Labs: Abnormal Lab Results - Last 24 Hours (Table) 03/31/18 Range/Units 08:28 Magnesium 1.5 L (1.6-2.3) mg/dL Assessment and Plan Assessment: ASSESSMENT Delirium tremens Abdominal pain with nausea and vomiting - secondary to alcohol withdrawal Hypomagnesemia Chronic alcohol abuse Elevated AST and ALT Thrombocytopenia - due to liver cirrhosis Plan: Will continue to monitor the patient for delirium tremens. Patient has been getting Ativan on when necessary basis. Supplement electrolytes. His nausea and vomiting seemed to be improved. He is tolerating by mouth. We'll continue with the current medication regimen. Further recommendations based on the clinical course. Anticipate discharge in the next 24 hours.
--- NOTE | 2018-04-02 03:34 | P.PN ---
Subjective Progress Note Date: 04/01/18 Principal diagnosis: Delirium tremens Mr. Chiang is a 42-year-old male with a past medical history of alcohol abuse coming in with a chief complaint of nausea vomiting tremors and feeling unwell for the past couple of days. Patient reports that he has been trying to cut down on his drinking and started to have the symptoms and so came in to the hospital for further evaluation. Patient was also complaining of nausea along with some vomiting which she reports are similar to his previous episodes of alcohol withdrawal. Patient denies having any fevers chills or rigors. No chest pain or palpitations. No cough or difficulty in breathing. No dysuria or hematuria. No loss of consciousness or seizure-like activity. No focal weakness. On 03/30/18 - the patient is lying in bed appears to be no acute distress. As per the nursing staff, patient is still requiring Ativan frequently. 03/31/2018 Patient says that he still weak and requesting to stay one more day. Otherwise still requiring IV Ativan. Medications level is 1.4 which is being replaced otherwise. Anticipate discharge in next 24 hours with more clinical improvement. Continue with alcohol withdrawal protocol. 04/01/2018 Patient denied any complains of chest pain or shortness of breath. Still feels very weak. Ativan IV has been discontinued and was started on Librium 10 mg every 6 when necessary for alcohol withdrawal symptoms. Continue to replace magnesium. No other acute overnight issues. Patient was told that he will most likely be discharged tomorrow. REVIEW OF SYSTEMS: NEURO: Tremors RESPIRATORY: No cough, No SOB, No chest discomfort. GI- has mild epigastric pain Cardiovascular-denies chest pain or palpitations. Objective - Vital Signs Vital signs: Vital Signs Temp 97.9 F 04/01/18 19:29 Pulse 69 04/01/18 19:29 Resp 16 04/01/18 19:29 BP 116/77 04/01/18 19:29 Pulse Ox 97 04/01/18 19:29 Intake & Output 04/01/18 04/01/18 04/02/18 06:59 18:59 06:59 Intake Total 486 500 Balance 486 500 Intake: Oral 486 500 Other: Voiding Method Toilet # Voids 1 1 - Exam GEN. APPEARANCE: alert, in no apparent distress HEAD EXAM: atraumatic, normocephalic, normal inspection EYE EXAM: No pallor or icterus ENT EXAM: normal exam, mucous membranes moist NECK EXAM: normal inspection. Absent: tenderness, meningismus, full ROM, lymphadenopathy RESPIRATORY EXAM: normal lung sounds bilaterally. Absent: respiratory distress , wheezes, rales, rhonchi, stridor CARDIOVASCULAR EXAM: regular rate, normal rhythm, normal heart sounds. Absent : systolic murmur, diastolic murmur, rubs, gallop, clicks GI/ABDOMINAL EXAM: soft, normal bowel sounds. Absent: distended, tenderness, guarding, rebound, rigid EXTREMITIES EXAM: normal inspection, full ROM, normal capillary refill. Absent : tenderness, pedal edema, joint swelling, calf tenderness NEUROLOGICAL EXAM: alert, oriented X3, no focal neurological deficits. Patient has tremors of his bilateral upper extremities. PSYCHIATRIC EXAM: normal affect, normal mood SKIN EXAM: warm, dry, intact, normal color. Absent: rash - Labs CBC & Chem 7: 03/30/18 06:52 03/30/18 06:52 Assessment and Plan Assessment: ASSESSMENT Delirium tremens Acute alcohol withdrawal syndrome Abdominal pain with nausea and vomiting - secondary to alcohol withdrawal Hypomagnesemia Chronic alcohol abuse Elevated AST and ALT Thrombocytopenia - due to liver cirrhosis Plan: Will continue to monitor the patient for delirium tremens. Patient has been getting Ativan on when necessary basis. Supplement electrolytes. His nausea and vomiting seemed to be improved. He is tolerating by mouth. We'll continue with the current medication regimen. Further recommendations based on the clinical course. Anticipate discharge in the next 24 hours. Time with Patient: Greater than 30
[2018-04-02 07:47] LABS: Basophils % (A) 0 %; Eosinophils # (A) 0.1 k/uL (0-0.7); Eosinophils % (A) 1 %; HCT 42.2 % (39.0-53.0); HGB 14.2 gm/dL (13.0-17.5); Lymphocytes # (A) 1.4 k/uL (1.0-4.8); Lymphocytes % (A) 27 %; MCH 31.4 pg (25.0-35.0); MCHC 33.7 g/dL (31.0-37.0); MCV 93.2 fL (80.0-100.0); Mean Platelet Volume 7.3; Monocytes # (A) 0.5 k/uL (0-1.0); Monocytes % (A) 10 %; Neutrophils % (A) 59 %; Platelet Count 132 k/uL (150-450); RBC 4.53 m/uL (4.30-5.90); RDW 12.8 % (11.5-15.5); WBC 5.1 k/uL (3.8-10.6)
[2018-04-02 08:03] LABS: ALT 152 U/L (21-72); AST 171 U/L (17-59); Albumin 4.4 g/dL (3.5-5.0); Alkaline Phosphatase 41 U/L (38-126); Anion Gap 10 mmol/L; Blood Urea Nitrogen 17 mg/dL (9-20); Calcium 9.4 mg/dL (8.4-10.2); Carbon Dioxide 30 mmol/L (22-30); Chloride 98 mmol/L (98-107); Glucose 96 mg/dL (74-99); Magnesium 1.7 mg/dL (1.6-2.3); Potassium 4.8 mmol/L (3.5-5.1); Sodium 138 mmol/L (137-145); Total Bilirubin 1.3 mg/dL (0.2-1.3); Total Protein 7.1 g/dL (6.3-8.2)
[2018-04-02] MEDS: FAMOTIDINE 20 MG TAB PO SCH ×2 (09:47→21:31)
[2018-04-02] MEDS: HYDROCHLOROTHIAZIDE 25 MG TAB PO SCH (09:47)
[2018-04-02] MEDS: THIAMINE 100 MG TAB PO SCH ×2 (09:48→18:28)
[2018-04-02] MEDS ORDERED: MAGNESIUM SULFATE-D5W PMX 1 GM in DEXTROSE/WATER 1 100ML.BAG IVPB ONE ×2 (11:00→13:00)
[2018-04-03 01:29] VITALS: RESP 18
[2018-04-03] MEDS: HYDROCHLOROTHIAZIDE 25 MG TAB PO SCH (11:53)
[2018-04-03] MEDS: CALCIUM CARBONATE 500 MG CHEWABLE PO PRN (11:53)
[2018-04-03] MEDS: FAMOTIDINE 20 MG TAB PO SCH (11:53)
[2018-04-03] MEDS: THIAMINE 100 MG TAB PO SCH (11:53)
[2018-04-03 17:21] VITALS: BP 121/72; PULSE 53; TEMP 97.3
== END 2018-04-03 17:45 | disposition home or self-care (01) | DRG 897 ==
LOC: EC 05:34 → 5MS5E 07:40 → 4SSUR 03-28 11:45
PROVIDERS: ADMIT Internal Medicine; ATTEND Internal Medicine
DX: F10.231 Alcohol dependence with withdrawal delirium (principal); D69.59 Other secondary thrombocytopenia; E83.42 Hypomagnesemia; G40.909 Epilepsy, unspecified, not intractable, without status epilepticus; G47.30 Sleep apnea, unspecified; Z99.89 Dependence on other enabling machines and devices; I10 Essential (primary) hypertension; K21.9 Gastro-esophageal reflux disease without esophagitis; K74.60 Unspecified cirrhosis of liver; Z80.8 Family history of malignant neoplasm of other organs or systems; Z82.0 Family history of epilepsy and other diseases of the nervous system; Z82.49 Family history of ischemic heart disease and other diseases of the circulatory system; Z87.891 Personal history of nicotine dependence; Z79.899 Other long term (current) drug therapy; Z88.1 Allergy status to other antibiotic agents; Z88.8 Allergy status to other drugs, medicaments and biological substances
CPT/HCPCS: 36415; 80048; 80053; 80320; 81003; 83690; 83735; 85025; 93005; 96361; 96365; 96375; 96376; 99285

== ENCOUNTER 2018-05-11 04:17 | Emergency (ER) | payer OTHER ==
[2018-05-11 04:23] VITALS: TEMP 97.9
[2018-05-11] MEDS ORDERED: ONDANSETRON 4 MG/2 ML VIAL IVP STA (05:09)
[2018-05-11] MEDS ORDERED: LORazepam 2 MG/ML INJ IV STA ×3 (05:09→07:53)
[2018-05-11] MEDS ORDERED: SODIUM CHLORIDE 0.9% 500 ML 500 ML IV STA (05:09)
[2018-05-11 06:02] LABS: ALT 25 U/L (21-72); AST 53 U/L (17-59); Albumin 4.3 g/dL (3.5-5.0); Alcohol <10 mg/dL; Alkaline Phosphatase 50 U/L (38-126); Amylase 72 U/L (30-110); Anion Gap 9 mmol/L; Blood Urea Nitrogen 12 mg/dL (9-20); Calcium 9.2 mg/dL (8.4-10.2); Carbon Dioxide 31 mmol/L (22-30); Chloride 101 mmol/L (98-107); Glucose 96 mg/dL (74-99); Lipase 101 U/L (23-300); Potassium 4.5 mmol/L (3.5-5.1); Sodium 141 mmol/L (137-145); Total Bilirubin 2.5 mg/dL (0.2-1.3); Total Protein 7.3 g/dL (6.3-8.2)
[2018-05-11 06:11] LABS: Basophils % (A) 0 %; Eosinophils % (A) 0 %; HCT 43.6 % (39.0-53.0); HGB 14.6 gm/dL (13.0-17.5); Lymphocytes # (A) 1.4 k/uL (1.0-4.8); Lymphocytes % (A) 15 %; MCH 30.8 pg (25.0-35.0); MCHC 33.5 g/dL (31.0-37.0); MCV 91.8 fL (80.0-100.0); Mean Platelet Volume 7.5; Monocytes # (A) 0.4 k/uL (0-1.0); Monocytes % (A) 5 %; Neutrophils # (A) 7.1 k/uL (1.3-7.7); Neutrophils % (A) 78 %; Platelet Count 190 k/uL (150-450); RBC 4.74 m/uL (4.30-5.90); RDW 13.1 % (11.5-15.5)
--- NOTE | 2018-05-11 07:28 | ED ---
General Adult HPI - General Chief complaint: Nausea/Vomiting/Diarrhea Stated complaint: Vomiting Time Seen by Provider: 05/11/18 05:08 Source: patient Mode of arrival: ambulatory Limitations: no limitations - History of Present Illness Initial comments: This patient's 42-year-old man presenting with the complaint that he believes she is having withdrawal from alcohol. The patient states that he had a relapse in his drinking. For about the past month he has been drinking up to a fifth per day. He drank a fifth yesterday. He states that now he feels like he is having withdrawal symptoms. He is having vomiting, feeling shaky and anxious. -: hour(s) Quality: other Consistency: constant Improves with: none Worsens with: none Associated Symptoms: nausea/vomiting, other (See above) Treatments Prior to Arrival: none - Related Data Home Medications Medication Instructions Recorded Confirmed ALPRAZolam [Xanax] 1 mg PO BID PRN 11/03/17 03/27/18 Albuterol Inhaler [Ventolin Hfa 1 - 2 puff INHALATION RT-Q6H PRN 11/03/17 Inhaler] Gabapentin [Neurontin] 600 mg PO TID 11/03/17 03/27/18 Fluticasone Nasal [place] [Flonase 2 spr EA NOSTRIL DAILY 03/27/18 03/27/18 Nasal [place]] Previous Rx's Medication Instructions Recorded Pantoprazole [Protonix] 40 mg PO AC-BRKFST #30 tablet. 11/06/17 Thiamine [Vitamin B-1] 100 mg PO BID@1200,1700 #30 tab 11/06/17 Magnesium Oxide [Mag-Ox] 400 mg PO BID 5 Days #10 tablet 03/31/18 LORazepam [Ativan] 1 mg PO TID 3 Days #9 tab 05/11/18 Ondansetron Odt [Zofran ODT] 4 mg PO Q8HR PRN #10 tab 05/11/18 chlordiazePOXIDE HCl [Librium] 25 mg PO QID 3 Days #12 capsule 05/11/18 Allergies Allergy/AdvReac Type Severity Reaction Status Date / Time Cephalosporins Allergy Severe Anaphylaxis Verified 03/27/18 13:11 diphenhydramine HCl Allergy Severe Anaphylaxis Verified 03/27/18 13:11 [From Benadryl] divalproex sodium Allergy Severe Anaphylaxis Verified 03/27/18 13:11 [From Depakote] ceftriaxone [From Rocephin] Allergy Unknown Verified 03/27/18 13:11 cephalexin [From Keflex] Allergy Unknown Verified 03/27/18 13:11 lisinopril Allergy Unknown Verified 03/27/18 13:11 Review of Systems ROS Statement: Those systems with pertinent positive or pertinent negative responses have been documented in the HPI. ROS Other: All systems not noted in ROS Statement are negative. Constitutional: Denies: fever, chills, weakness Eyes: Denies: vision change Respiratory: Denies: cough, dyspnea Cardiovascular: Denies: chest pain, palpitations, syncope Gastrointestinal: Reports: nausea, vomiting. Denies: abdominal pain, diarrhea, hematemesis, melena, hematochezia Genitourinary: Denies: dysuria, hematuria Musculoskeletal: Denies: back pain Skin: Denies: rash Neurological: Denies: headache, weakness, numbness Psychiatric: Reports: anxiety. Denies: depression, auditory hallucinations, visual hallucinations, homicidal thoughts, suicidal thoughts Past Medical History Past Medical History: GERD/Reflux, Hypertension, Osteoarthritis (OA), Pneumonia , Seizure Disorder, Sleep Apnea/CPAP/BIPAP Additional Past Medical History / Comment(s): Alcoholism, ETOH withdrawals, mild alcohol hepatitis, upper GI bleed, gastritis, had episode of "fainting" 1 yrs ago and told he had a seizurepossible alcoholic seizures/blackouts, bilateral varicose veins, spinal stenosis with surgery, herniated disc, MILIND no CPAP, hemorrhoids. History of Any Multi-Drug Resistant Organisms: None Reported Past Surgical History: Appendectomy, Back Surgery, Tonsillectomy Additional Past Surgical History / Comment(s): 07/13/17 EGD, 4--16 LAMINECTOMY, bilateral DISCETOMY L5-S1. Past Anesthesia/Blood Transfusion Reactions: Motion Sickness Past Psychological History: Anxiety, Depression Smoking Status: Former smoker - Past Family History Father Family Medical History: Cancer, Dementia Additional Family Medical History / Comment(s): melanoma, parkinsons Mother Family Medical History: Hypertension, Musculoskeletal Disorder, Neurologic Disorder, Osteoarthritis (OA) Additional Family Medical History / Comment(s): . Had some motor neuron disease General Exam Limitations: no limitations General appearance: alert, in no apparent distress, anxious Head exam: Present: atraumatic, normocephalic Eye exam: Present: normal appearance. Absent: scleral icterus, conjunctival injection ENT exam: Present: normal oropharynx Neck exam: Present: normal inspection Respiratory exam: Present: normal lung sounds bilaterally. Absent: respiratory distress, wheezes, rales, rhonchi, stridor Cardiovascular Exam: Present: regular rate, normal rhythm, normal heart sounds. Absent: systolic murmur, diastolic murmur, rubs GI/Abdominal exam: Present: soft. Absent: distended, tenderness, guarding, rebound, rigid, mass Extremities exam: Present: normal inspection, normal capillary refill. Absent: pedal edema, calf tenderness Back exam: Present: normal inspection. Absent: CVA tenderness (R), CVA tenderness (L) Neurological exam: Present: alert, reflexes normal. Absent: motor sensory deficit Psychiatric exam: Present: anxious. Absent: homicidal ideation, suicidal ideation Skin exam: Present: warm, dry, intact, normal color. Absent: rash Course Vital Signs 05/11/18 05/11/18 05/11/18 04:19 04:45 05:09 Temperature 97.9 F 97.9 F Pulse Rate 97 100 Respiratory 18 20 Rate Blood Pressure 157/98 160/100 O2 Sat by Pulse 98 97 96 Oximetry 05/11/18 06:00 Temperature Pulse Rate 88 Respiratory 18 Rate Blood Pressure 157/95 O2 Sat by Pulse 96 Oximetry Medical Decision Making - Lab Data Result diagrams: 05/11/18 05:30 05/11/18 05:30 Lab Results 05/11/18 05/11/18 Range/Units 05:30 05:30 WBC 9.0 (3.8-10.6) k/uL RBC 4.74 (4.30-5.90) m/uL Hgb 14.6 (13.0-17.5) gm/dL Hct 43.6 (39.0-53.0) % MCV 91.8 (80.0-100.0) fL MCH 30.8 (25.0-35.0) pg MCHC 33.5 (31.0-37.0) g/dL RDW 13.1 (11.5-15.5) % Plt Count 190 (150-450) k/uL Neutrophils % 78 % Lymphocytes % 15 % Monocytes % 5 % Eosinophils % 0 % Basophils % 0 % Neutrophils # 7.1 (1.3-7.7) k/uL Lymphocytes # 1.4 (1.0-4.8) k/uL Monocytes # 0.4 (0-1.0) k/uL Eosinophils # 0.0 (0-0.7) k/uL Basophils # 0.0 (0-0.2) k/uL Sodium 141 (137-145) mmol/L Potassium 4.5 (3.5-5.1) mmol/L Chloride 101 (98-107) mmol/L Carbon Dioxide 31 H (22-30) mmol/L Anion Gap 9 mmol/L BUN 12 (9-20) mg/dL Creatinine 0.62 L (0.66-1.25) mg/dL Est GFR (CKD-EPI)AfAm >90 (>60 ml/min/1.73 sqM) Est GFR (CKD-EPI)NonAf >90 (>60 ml/min/1.73 sqM) Glucose 96 (74-99) mg/dL Calcium 9.2 (8.4-10.2) mg/dL Total Bilirubin 2.5 H (0.2-1.3) mg/dL AST 53 (17-59) U/L ALT 25 (21-72) U/L Alkaline Phosphatase 50 (38-126) U/L Total Protein 7.3 (6.3-8.2) g/dL Albumin 4.3 (3.5-5.0) g/dL Amylase 72 (30-110) U/L Lipase 101 (23-300) U/L Serum Alcohol <10 mg/dL Disposition Clinical Impression: Alcohol withdrawal Disposition: HOME SELF-CARE Condition: Good Instructions: Alcohol Withdrawal (ED) Prescriptions: chlordiazePOXIDE HCl [Librium] 25 mg PO QID 3 Days #12 capsule LORazepam [Ativan] 1 mg PO TID 3 Days #9 tab Ondansetron Odt [Zofran ODT] 4 mg PO Q8HR PRN #10 tab PRN Reason: Nausea Is patient prescribed a controlled substance at d/c from ED?: No Referrals: Veena Bynum DO [Primary Care Provider] - 1-2 days
[2018-05-11] MEDS ORDERED: chlordiazePOXIDE 25 MG CAP PO STA (07:36)
[2018-05-11 08:32] VITALS: BP 153/90; PULSE 91; RESP 18
== END 2018-05-11 09:11 | disposition home or self-care (01) ==
LOC: EC 04:17
DX: F10.239 Alcohol dependence with withdrawal, unspecified (principal); G40.909 Epilepsy, unspecified, not intractable, without status epilepticus; Z87.891 Personal history of nicotine dependence; Z79.899 Other long term (current) drug therapy; Z88.1 Allergy status to other antibiotic agents; Z88.8 Allergy status to other drugs, medicaments and biological substances
CPT/HCPCS: 36415; 80053; 82150; 83690; 85025; 99284; 96374; 96375; 96376 ×2; 96361 ×2; G0480; J2060; J2405; 80320

== ENCOUNTER 2018-05-17 08:11 | Inpatient (IN) | payer OTHER ==
[2018-05-17] MEDS ORDERED: SODIUM CHLORIDE 0.9% 2,000 ML IV STA (08:17)
[2018-05-17] MEDS ORDERED: THIAMINE 100 MG/ML 2 ML VIAL IM STA (08:17)
[2018-05-17] MEDS ORDERED: LORazepam 2 MG/ML INJ IV STA (08:18)
--- NOTE | 2018-05-17 08:29 | ED ---
Alcohol HPI - General Source: patient, RN notes reviewed Mode of arrival: ambulatory Limitations: no limitations <London New - Last Filed: 05/17/18 09:22> <Elliott Tamayo - Last Filed: 05/17/18 09:38> - General Chief Complaint: Alcohol Stated Complaint: detoxing Time Seen by Provider: 05/17/18 08:17 - History of Present Illness Initial Comments: 42-year-old male presents emergency Department chief complaint alcohol withdrawal. Patient states that he stopped drinking yesterday. Patient states that he normally drinks 1-2/5 a day. Patient states that he is shaking, nauseated and vomiting. Patient denies any chest pain, shortness breath, headache or dizziness. Patient states that he's been at the hospital and rehab several times. He is not suicidal or homicidal. Patient states he drinks secondary to stress. He has no abdominal pain. Patient denies any dysuria or hematuria. (London New) - Related Data Home Medications Medication Instructions Recorded Confirmed ALPRAZolam [Xanax] 1 mg PO BID PRN 11/03/17 05/17/18 Albuterol Inhaler [Ventolin Hfa 1 - 2 puff INHALATION RT-Q6H PRN 11/03/17 Inhaler] Gabapentin [Neurontin] 600 mg PO TID 11/03/17 05/17/18 Fluticasone Nasal [place] [Flonase 2 spr EA NOSTRIL DAILY 03/27/18 05/17/18 Nasal [place]] Previous Rx's Medication Instructions Recorded Pantoprazole [Protonix] 40 mg PO LEN[place]-REID #30 tablet. 11/06/17 Thiamine [Vitamin B-1] 100 mg PO BID@1200,1700 #30 tab 11/06/17 Magnesium Oxide [Mag-Ox] 400 mg PO BID 5 Days #10 tablet 03/31/18 LORazepam [Ativan] 1 mg PO TID 3 Days #9 tab 05/11/18 Ondansetron Odt [Zofran ODT] 4 mg PO Q8HR PRN #10 tab 05/11/18 chlordiazePOXIDE HCl [Librium] 25 mg PO QID 3 Days #12 capsule 05/11/18 Allergies Allergy/AdvReac Type Severity Reaction Status Date / Time Cephalosporins Allergy Severe Anaphylaxis Verified 05/17/18 08:43 diphenhydramine HCl Allergy Severe Anaphylaxis Verified 05/17/18 08:43 [From Benadryl] divalproex sodium Allergy Severe Anaphylaxis Verified 05/17/18 08:43 [From Depakote] ceftriaxone [From Rocephin] Allergy Unknown Verified 05/17/18 08:43 cephalexin [From Keflex] Allergy Unknown Verified 05/17/18 08:43 lisinopril Allergy Unknown Verified 05/17/18 08:43 Review of Systems ROS Other: All systems not noted in ROS Statement are negative. <London New - Last Filed: 05/17/18 09:22> ROS Other: All systems not noted in ROS Statement are negative. <Elliott Tamayo - Last Filed: 05/17/18 09:38> ROS Statement: Those systems with pertinent positive or pertinent negative responses have been documented in the HPI. Past Medical History Past Medical History: GERD/Reflux, Hypertension, Osteoarthritis (OA), Pneumonia , Seizure Disorder, Sleep Apnea/CPAP/BIPAP Additional Past Medical History / Comment(s): Alcoholism, ETOH withdrawals, mild alcohol hepatitis, upper GI bleed, gastritis, had episode of "fainting" 1 yrs ago and told he had a seizurepossible alcoholic seizures/blackouts, bilateral varicose veins, spinal stenosis with surgery, herniated disc, MILIND no CPAP, hemorrhoids. History of Any Multi-Drug Resistant Organisms: None Reported Past Surgical History: Appendectomy, Back Surgery, Tonsillectomy Additional Past Surgical History / Comment(s): 07/13/17 EGD, 4-7-16 LAMINECTOMY, bilateral DISCETOMY L5-S1. Past Anesthesia/Blood Transfusion Reactions: Motion Sickness Past Psychological History: Anxiety, Depression Smoking Status: Former smoker Past Alcohol Use History: Abuse Past Drug Use History: Marijuana - Past Family History Father Family Medical History: Cancer, Dementia Additional Family Medical History / Comment(s): melanoma, parkinsons Mother Family Medical History: Hypertension, Musculoskeletal Disorder, Neurologic Disorder, Osteoarthritis (OA) Additional Family Medical History / Comment(s): . Had some motor neuron disease <London New - Last Filed: 05/17/18 09:22> General Exam Limitations: no limitations General appearance: alert, in no apparent distress, other (tremors) Head exam: Present: atraumatic, normocephalic, normal inspection Eye exam: Present: normal appearance, PERRL, EOMI. Absent: scleral icterus, conjunctival injection, periorbital swelling ENT exam: Present: normal exam, normal oropharynx, mucous membranes moist Neck exam: Present: normal inspection. Absent: tenderness, meningismus, lymphadenopathy Respiratory exam: Present: normal lung sounds bilaterally. Absent: respiratory distress, wheezes, rales, rhonchi, stridor Cardiovascular Exam: Present: normal rhythm, tachycardia, normal heart sounds. Absent: systolic murmur, diastolic murmur, rubs, gallop, clicks GI/Abdominal exam: Present: soft, normal bowel sounds. Absent: distended, tenderness, guarding, rebound, rigid Neurological exam: Present: alert, oriented X3, CN II-XII intact Skin exam: Present: warm, dry, intact, normal color. Absent: rash <London New - Last Filed: 05/17/18 09:22> Course <[place] New - Last Filed: 05/17/18 09:22> <Elliott Tamayo - Last Filed: 05/17/18 09:38> Vital Signs 05/17/18 05/17/18 08:13 09:20 Temperature 98 F Pulse Rate 123 H Respiratory 24 18 Rate Blood Pressure 153/98 140/94 O2 Sat by Pulse 99 97 Oximetry - Reevaluation(s) Reevaluation #1: 05/17/18 09:37 PA supervision: I proceeded [id number] evaluation the patient he has a long history of alcoholism drinking up to 48 today he quit drinking yesterday he does now and drink anymore he states. Is very jittery and shaky. He is at risk for DTs. He will be admitted. I did discuss the case with Dr. Ogden. Evaluation included a brief history and focused physical exam. (Elliott Tamayo) Medical Decision Making - Lab Data Result diagrams: 05/17/18 08:49 05/17/18 08:49 <London New - Last Filed: 05/17/18 09:22> - Lab Data Result diagrams: 05/17/18 08:49 05/17/18 08:49 <Elliott Tamayo - Last Filed: 05/17/18 09:38> - Medical Decision Making 42-year-old male presented from for alcohol withdrawal. Patient does have a serum alcohol 43 currently having evidence of withdrawal, tremoring pending DVTs. Patient was given Ativan will be placed on Ativan withdrawal protocol also bundle have hypomagnesemia. Patient we given 1 g magnesium IV, oral Mag- Ox. Patient was started on banana bag after 2 L bolus. ([place] New) - Lab Data Lab Results 05/17/18 05/17/18 05/17/18 Range/Units 08:49 08:49 08:49 WBC 6.4 (3.8-10.6) k/uL RBC 5.13 (4.30-5.90) m/uL Hgb 15.1 (13.0-17.5) gm/dL Hct 47.1 (39.0-53.0) % MCV 91.8 (80.0-100.0) fL MCH 29.5 (25.0-35.0) pg MCHC 32.1 (31.0-37.0) g/dL RDW 13.2 (11.5-15.5) % Plt Count 154 (150-450) k/uL Neutrophils % 72 % Lymphocytes % 22 % Monocytes % 3 % Eosinophils % 1 % Basophils % 0 % Neutrophils # 4.6 (1.3-7.7) k/uL Lymphocytes # 1.4 (1.0-4.8) k/uL Monocytes # 0.2 (0-1.0) k/uL Eosinophils # 0.1 (0-0.7) k/uL Basophils # 0.0 (0-0.2) k/uL PT 9.7 (9.0-12.0) sec INR 1.0 (<1.2) APTT 23.6 (22.0-30.0) sec Sodium 142 (137-145) mmol/L Potassium 4.2 (3.5-5.1) mmol/L Chloride 99 (98-107) mmol/L Carbon Dioxide 27 (22-30) mmol/L Anion Gap 16 mmol/L BUN 16 (9-20) mg/dL Creatinine 0.77 (0.66-1.25) mg/dL Est GFR (CKD-EPI)AfAm >90 (>60 ml/min/1.73 sqM) Est GFR (CKD-EPI)NonAf >90 (>60 ml/min/1.73 sqM) Glucose 83 (74-99) mg/dL Calcium 9.4 (8.4-10.2) mg/dL Phosphorus 3.4 (2.5-4.5) mg/dL Magnesium 1.2 L (1.6-2.3) mg/dL Total Bilirubin 2.1 H (0.2-1.3) mg/dL AST 107 H (17-59) U/L ALT 40 (21-72) U/L Alkaline Phosphatase 65 (38-126) U/L Total Protein 7.9 (6.3-8.2) g/dL Albumin 4.9 (3.5-5.0) g/dL Lipase 127 (23-300) U/L Serum Alcohol 43 mg/dL Disposition <London New - Last Filed: 05/17/18 09:22> <Elliott Tamayo - Last Filed: 05/17/18 09:38> Clinical Impression: Hypomagnesemia, Elevated liver enzymes, Nausea & vomiting, Alcohol withdrawal, Alcohol addiction Disposition: ADMITTED IP TO THIS HOSP Condition: Fair Referrals: Veena Bynum DO [Primary Care Provider] - 1-2 days
[2018-05-17 09:03] LABS: Basophils % (A) 0 %; Eosinophils # (A) 0.1 k/uL (0-0.7); Eosinophils % (A) 1 %; HCT 47.1 % (39.0-53.0); HGB 15.1 gm/dL (13.0-17.5); Lymphocytes # (A) 1.4 k/uL (1.0-4.8); Lymphocytes % (A) 22 %; MCH 29.5 pg (25.0-35.0); MCHC 32.1 g/dL (31.0-37.0); MCV 91.8 fL (80.0-100.0); Mean Platelet Volume 6.8; Monocytes # (A) 0.2 k/uL (0-1.0); Monocytes % (A) 3 %; Neutrophils # (A) 4.6 k/uL (1.3-7.7); Neutrophils % (A) 72 %; Platelet Count 154 k/uL (150-450); RBC 5.13 m/uL (4.30-5.90); RDW 13.2 % (11.5-15.5); WBC 6.4 k/uL (3.8-10.6)
[2018-05-17] MEDS ORDERED: ONDANSETRON 4 MG/2 ML VIAL IVP STA (09:08)
[2018-05-17 09:15] LABS: ALT 40 U/L (21-72); AST 107 U/L (17-59); Albumin 4.9 g/dL (3.5-5.0); Alcohol 43 mg/dL; Alkaline Phosphatase 65 U/L (38-126); Anion Gap 16 mmol/L; Blood Urea Nitrogen 16 mg/dL (9-20); Calcium 9.4 mg/dL (8.4-10.2); Carbon Dioxide 27 mmol/L (22-30); Chloride 99 mmol/L (98-107); Glucose 83 mg/dL (74-99); Lipase 127 U/L (23-300); Magnesium 1.2 mg/dL (1.6-2.3); Phosphorus 3.4 mg/dL (2.5-4.5); Potassium 4.2 mmol/L (3.5-5.1); Sodium 142 mmol/L (137-145); Total Bilirubin 2.1 mg/dL (0.2-1.3); Total Protein 7.9 g/dL (6.3-8.2)
[2018-05-17] MEDS ORDERED: MAGNESIUM SULFATE-D5W PMX 1 GM in DEXTROSE/WATER 1 100ML.BAG IVPB ONE (09:17)
[2018-05-17] MEDS ORDERED: MAGNESIUM OXIDE 400 MG TAB PO STA (09:17)
[2018-05-17 09:22] LABS: Partial Thromboplastin Time 23.6 sec (22.0-30.0); Prothrombin Time 9.7 sec (9.0-12.0)
[2018-05-17] MEDS ORDERED: LORazepam 2 MG/ML INJ IV PRN (09:25)
[2018-05-17] MEDS: PANTOPRAZOLE 40 MG/10 ML VIAL IV SCH (09:41)
[2018-05-17] MEDS ORDERED: ALBUTEROL INHALER 60 PUFF/8 GM INHALER INHALATION PRN (10:43)
[2018-05-17] MEDS ORDERED: ALPRAZolam 1 MG TAB PO PRN (10:43)
[2018-05-17] MEDS: LORazepam 2 MG/ML INJ IV PRN ×8 (10:58→21:22)
[2018-05-17] MEDS: chlordiazePOXIDE 25 MG CAP PO SCH ×3 (12:19→21:20)
[2018-05-17] MEDS: HYDROcodone/APAP 5-325MG 1 EACH TAB PO PRN ×2 (12:19→18:13)
[2018-05-17] MEDS: THIAMINE 100 MG TAB PO SCH ×2 (12:19→17:05)
[2018-05-17 14:54] VITALS: BMI 34.2
[2018-05-17 15:05] LABS: Appearance,Urine Clear (Clear); Bilirubin,Urine Negative (Negative); Blood,Urine Negative (Negative); Color,Urine Yellow; Glucose,Urine (UA) Negative (Negative); Ketones,Urine 1+ (Negative); Leukocyte Esterase,Urine Negative (Negative); Nitrite,Urine Negative (Negative); PH, Urine 8.5 (5.0-8.0); Protein,Urine Trace (Negative); Specific Gravity,Urine 1.019 (1.001-1.035); Urobilinogen,Urine <2.0 mg/dL (<2.0)
[2018-05-17] MEDS ORDERED: THIAMINE 100 MG TAB PO SCH (17:00)
[2018-05-17] MEDS: GABAPENTIN 300 MG CAP PO SCH ×2 (17:05→21:20)
[2018-05-17] MEDS: ONDANSETRON 4 MG/2 ML VIAL IVP PRN (18:31)
--- NOTE | 2018-05-17 19:23 | HP ---
HISTORY AND PHYSICAL DATE OF SERVICE: 05/17/2018 CHIEF COMPLAINT: Alcohol withdrawal. HISTORY OF PRESENT ILLNESS: This 42-year-old gentleman with past medical history of GERD hypertension, DJD, history of pneumonia, seizure disorder, had significant history of alcohol. The patient had multiple hospital admissions. Patient also had alcoholic hepatitis and GI bleed and gastritis and multiple electrolytes abnormalities and possibly withdrawal seizures and blackouts previously. Currently the patient lives alone in the house and the patient was also taking up to 5 drinks per day. The patient is complaining of shaking, nausea, vomiting and shortness of breath and because of multiple medical issues, patient came to [facility] and was admitted for further evaluation and treatment. Alcohol level was 143, AST is . There is no history of fever, rigors or chills. No history of headache, loss of consciousness, seizures. PAST MEDICAL HISTORY: History of GERD, hypertension, DJD, history of pneumonia, seizure disorder, sleep apnea, history of alcoholism, anxiety depression. MEDICATIONS: Prior to admission include home medications are: 1. Librium 25 mg p.o. q.i.d. 2. Vitamin B1 100 mg p.o. b.i.d. 3. Protonix 40 mg. 4. Zofran 4 mg q.p.m. 5. Magnesium oxide 400 mg p.o. b.i.d. 6. Ativan 1 mg p.o. t.i.d. 7. Neurontin 600 mg p.o. t.i.d. 8. Flonase 2 sprays daily. 9. Ventolin HFA 1-2 puffs q.6h p.r.n. 10.Xanax 1 mg p.o. b.i.d. p.r.n. ALLERGIES: CEPHALOSPORINS, BENADRYL, DEPAKOTE, ROCEPHIN, KEFLEX, LISINOPRIL. FAMILY HISTORY: History of cancer, dementia, melanoma, and Parkinson's. SOCIAL HISTORY: 1. History of alcohol as mentioned. 2. Previous history of smoking. REVIEW OF SYSTEMS: ENT: No diminished vision. No diminished hearing. CARDIOVASCULAR: No angina or palpitations. Respiratory: No cough or hemoptysis. GI: No nausea or vomiting. : No dysuria. NERVOUS SYSTEM: As mentioned earlier. Allergy/Immunology: No asthma or hayfever. Musculoskeletal: As mentioned earlier. Hematology/Oncology: No history of anemia. Endocrine: No history of diabetes or hypothyroidism. CONSTITUTIONAL: As mentioned earlier. Dermatology: Negative. Rheumatology: Negative. Psychiatry: As mentioned earlier. PHYSICAL EXAMINATION: The patient is alert and oriented times three. Pulse 95, blood pressure 149/76, respirations 16, temp 98.3, T-max 100.6, pulse ox 96% on room air. HEENT: Conjunctivae normal. Oral mucosa moist. Neck is no jugular venous distention. No carotid bruit. No lymph node enlargement. CARDIOVASCULAR: S1, S2. RESPIRATORY: Breath sounds diminished in the bases. A few scattered rhonchi. No crackles. ABDOMEN: Soft, nontender. No mass palpable. Legs no edema and no swelling. NERVOUS SYSTEM: Higher functions as mentioned earlier. Moves all four extremities. Significant diffuse tremors present. Otherwise, gait dysfunction also present. Skin: No ulcer, rash or bleeding. Joints: No active deforming arthropathy. LABS: CBC within normal limits. Sodium 140 potassium 4.2, magnesium is 1.2, AST is 107. ASSESSMENT: 1. Acute alcohol withdrawal and as well as delirium tremens. 2. History of EtOH. 3. Alcoholic hepatitis. 4. Hypomagnesemia. 5. History of hypertension. 6. Degenerative joint disease. 7. History of pneumonia. 8. History of seizure disorder. 9. History of sleep apnea on CPAP. 10.History of gastrointestinal bleed. 11.History of hypomagnesemia. 12.Appendectomy. 13.Back pain. 14.Anxiety, depression. 15.History of nicotine dependence. 16.FULL CODE. RECOMMENDATIONS AND DISCUSSION: In this 42-year-old gentleman who presented with multiple complex medical issues , at this time, we will monitor the patient closely. Alcohol withdrawal precautions. Seizure precautions. CIWA protocol. Resume the home medications. cooler room worker will be consulted to arrange for rehab. Otherwise repeat labs. See orders for details. Prognosis guarded. Further recommendations to follow. Recommend the patient follow up closely with Dr. Bynum who is the primary physician. MMMONYL / MOISESN: [id number] / MTDD
[2018-05-17] MEDS: MAGNESIUM OXIDE 400 MG TAB PO SCH (20:05)
[2018-05-17] MEDS: HEPARIN SODIUM,PORCINE 5,000 UNIT/ML 1 ML VIAL SQ SCH (20:05)
[2018-05-18] MEDS: LORazepam 2 MG/ML INJ IV PRN ×8 (02:34→23:45)
[2018-05-18] MEDS: HYDROcodone/APAP 5-325MG 1 EACH TAB PO PRN ×3 (05:54→18:54)
[2018-05-18] MEDS: MAGNESIUM OXIDE 400 MG TAB PO SCH ×2 (07:47→20:56)
[2018-05-18] MEDS: GABAPENTIN 300 MG CAP PO SCH ×3 (07:47→22:02)
[2018-05-18] MEDS: HEPARIN SODIUM,PORCINE 5,000 UNIT/ML 1 ML VIAL SQ SCH ×2 (07:47→20:56)
[2018-05-18] MEDS: chlordiazePOXIDE 25 MG CAP PO SCH ×4 (07:47→22:02)
[2018-05-18] MEDS: FLUTICASONE 50MCG/SPRAY NASAL 16GM EA NOSTRIL SCH (07:47)
[2018-05-18] MEDS: PANTOPRAZOLE 40 MG/10 ML VIAL IV SCH (07:47)
[2018-05-18 08:50] LABS: Basophils % (A) 0 %; Eosinophils # (A) 0.1 k/uL (0-0.7); Eosinophils % (A) 2 %; HCT 42.1 % (39.0-53.0); HGB 13.5 gm/dL (13.0-17.5); Lymphocytes % (A) 22 %; MCH 30.2 pg (25.0-35.0); MCHC 32.1 g/dL (31.0-37.0); Mean Platelet Volume 7.3; Monocytes # (A) 0.3 k/uL (0-1.0); Monocytes % (A) 6 %; Neutrophils # (A) 3.1 k/uL (1.3-7.7); Neutrophils % (A) 68 %; Platelet Count 113 k/uL (150-450); RBC 4.48 m/uL (4.30-5.90); RDW 13.2 % (11.5-15.5); WBC 4.5 k/uL (3.8-10.6)
[2018-05-18 09:01] LABS: ALT 34 U/L (21-72); AST 69 U/L (17-59); Albumin 3.9 g/dL (3.5-5.0); Alkaline Phosphatase 46 U/L (38-126); Anion Gap 8 mmol/L; Blood Urea Nitrogen 16 mg/dL (9-20); Calcium 8.3 mg/dL (8.4-10.2); Carbon Dioxide 30 mmol/L (22-30); Chloride 101 mmol/L (98-107); Glucose 90 mg/dL (74-99); Magnesium 1.4 mg/dL (1.6-2.3); Potassium 4.2 mmol/L (3.5-5.1); Sodium 139 mmol/L (137-145); Total Bilirubin 3.3 mg/dL (0.2-1.3); Total Protein 6.7 g/dL (6.3-8.2)
[2018-05-18] MEDS: MULTIVITAMINS, THERA 1 EACH TAB PO SCH (12:34)
[2018-05-18] MEDS: FOLIC ACID 1 MG TAB PO SCH (12:35)
[2018-05-18] MEDS: THIAMINE 100 MG TAB PO SCH ×2 (12:35→17:17)
--- NOTE | 2018-05-18 17:36 | PN ---
PROGRESS NOTE DATE OF SERVICE: 05/18/2018 This 42-year-old gentleman who was admitted with acute alcoholic alcohol withdrawal and delirium tremens has significant tremors at this time. The patient is being closely monitored. No chest pain. No palpitations. No fever. PHYSICAL EXAMINATION: Alert and oriented x3. Pulse 71, blood pressure 130/74, respiration 16, temperature 98.4, pulse ox 99% on room air. HEENT: Conjunctivae normal. NECK: No jugular venous distention. CARDIOVASCULAR SYSTEM: S1, S2 muffled. RESPIRATORY SYSTEM: Breath sounds diminished at the bases. A few scattered rhonchi. No crackles. ABDOMEN: Soft, non-tender. LEGS: No edema. No swelling. NERVOUS SYSTEM: Diffuse tremors. LABS: WBC 4.5, hemoglobin 13.5, platelets 113. Otherwise bilirubin is 3.3. ASSESSMENT: 1. Acute alcohol withdrawal and delirium tremens. 2. History of ethanol. 3. Alcoholic hepatitis. 4. Hypomagnesemia. 5. History of hypertension. 6. History of degenerative joint disease. 7. History of pneumonia. 8. Seizure disorder. 9. History of sleep apnea, on CPAP. 10.History of gastrointestinal bleed. 11.History of hypomagnesemia. 12.Appendectomy. 13.Back pain. 14.Anxiety, depression. 15.History of nicotine dependence. 16.FULL CODE. RECOMMENDATIONS AND DISCUSSION: I recommend to continue current medication, continue with the monitoring, symptomatic treatment. Otherwise as this time I would recommend close monitoring. Guarded prognosis because of multiple complex medical issues. Further recommendations to follow. MMODL / IJN: [id number] /
[2018-05-19] MEDS: HYDROcodone/APAP 5-325MG 1 EACH TAB PO PRN ×4 (00:46→22:32)
[2018-05-19] MEDS: LORazepam 2 MG/ML INJ IV PRN ×4 (04:08→20:26)
[2018-05-19] MEDS: MAGNESIUM OXIDE 400 MG TAB PO SCH ×2 (07:25→20:19)
[2018-05-19] MEDS: GABAPENTIN 300 MG CAP PO SCH ×3 (07:25→20:19)
[2018-05-19] MEDS: FLUTICASONE 50MCG/SPRAY NASAL 16GM EA NOSTRIL SCH (07:25)
[2018-05-19] MEDS: PANTOPRAZOLE 40 MG TABLET PO SCH (07:25)
[2018-05-19] MEDS: HEPARIN SODIUM,PORCINE 5,000 UNIT/ML 1 ML VIAL SQ SCH ×2 (07:25→20:19)
[2018-05-19] MEDS: chlordiazePOXIDE 25 MG CAP PO SCH ×4 (07:26→20:19)
[2018-05-19 09:04] LABS: Basophils % (A) 0 %; Eosinophils # (A) 0.1 k/uL (0-0.7); Eosinophils % (A) 3 %; HCT 40.1 % (39.0-53.0); Lymphocytes # (A) 1.4 k/uL (1.0-4.8); Lymphocytes % (A) 33 %; MCH 30.7 pg (25.0-35.0); MCHC 32.3 g/dL (31.0-37.0); MCV 94.9 fL (80.0-100.0); Mean Platelet Volume 7.4; Monocytes # (A) 0.2 k/uL (0-1.0); Monocytes % (A) 5 %; Neutrophils # (A) 2.3 k/uL (1.3-7.7); Neutrophils % (A) 56 %; Platelet Count 104 k/uL (150-450); RBC 4.23 m/uL (4.30-5.90); RDW 13.2 % (11.5-15.5); WBC 4.1 k/uL (3.8-10.6)
[2018-05-19 09:22] LABS: Glucose 93 mg/dL (74-99)
[2018-05-19 09:23] LABS: ALT 31 U/L (21-72); AST 61 U/L (17-59); Albumin 3.6 g/dL (3.5-5.0); Alkaline Phosphatase 47 U/L (38-126); Anion Gap 4 mmol/L; Blood Urea Nitrogen 13 mg/dL (9-20); Calcium 8.9 mg/dL (8.4-10.2); Carbon Dioxide 33 mmol/L (22-30); Chloride 101 mmol/L (98-107); Magnesium 1.5 mg/dL (1.6-2.3); Potassium 4.4 mmol/L (3.5-5.1); Sodium 138 mmol/L (137-145); Total Bilirubin 1.8 mg/dL (0.2-1.3); Total Protein 6.2 g/dL (6.3-8.2)
--- NOTE | 2018-05-19 11:29 | P.PN ---
Subjective This is a pleasant 42 years old male with past medical history of GERD, hypertension, ulcer arthritis, seizure disorder, sleep apnea, upper GI bleed and gastritis, who presents because of alcohol withdrawal. Patient was lying in bed little anxious and agitated. No obvious tremor. No sweating. Is on benzodiazepines. His liver enzymes and high bilirubin aren't trending down gradually. Creatinine 0.6. Objective - Vital Signs Vital signs: Vital Signs Temp 97.4 F L 05/19/18 05:00 Pulse 52 L 05/19/18 05:00 Resp 16 05/19/18 05:00 BP 126/96 05/19/18 05:00 Pulse Ox 99 05/19/18 05:00 Intake & Output 05/18/18 05/19/18 05/19/18 18:59 06:59 18:59 Intake Total 1440 Balance 1440 Weight 117.934 kg Intake: Oral 1440 Other: Voiding Method Toilet Toilet # Voids 1 # Bowel Movements 0 0 - Exam GENERAL: The patient is alert and oriented x3, not in any acute distress. Well developed, well nourished. HEENT: Pupils are round and equally reacting to light. EOMI. No scleral icterus. No conjunctival pallor. Normocephalic, atraumatic. No pharyngeal erythema. No thyromegaly. CARDIOVASCULAR: S1 and S2 present. No murmurs, rubs, or gallops. PULMONARY: Chest is clear to auscultation, no wheezing or crackles. ABDOMEN: Soft, nontender, nondistended, normoactive bowel sounds. No palpable organomegaly. MUSCULOSKELETAL: No joint swelling or deformity. EXTREMITIES: No cyanosis, clubbing, or pedal edema. NEUROLOGICAL: Gross neurological examination did not reveal any focal deficits. SKIN: No rashes. - Labs CBC & Chem 7: 05/19/18 08:07 05/19/18 08:07 Labs: Abnormal Lab Results - Last 24 Hours (Table) 05/19/18 05/19/18 Range/Units 08:07 08:07 RBC 4.23 L (4.30-5.90) m/uL Plt Count 104 L (150-450) k/uL Carbon Dioxide 33 H (22-30) mmol/L Creatinine 0.64 L (0.66-1.25) mg/dL Magnesium 1.5 L (1.6-2.3) mg/dL Total Bilirubin 1.8 H (0.2-1.3) mg/dL AST 61 H (17-59) U/L Total Protein 6.2 L (6.3-8.2) g/dL Assessment and Plan Assessment: Acute alcohol withdrawal, Alcohol abuse Alcoholic hepatitis, improving Hypomagnesemia Essential hypertension History of osteoarthritis Seizure disorder History of sleep apnea on CPAP Back pain Plan: This is a pleasant 42 years old male who presents because of alcohol withdrawal. Continue with see what protocol. Continue with IV fluids. Monitor labs.Labs and medication were reviewed.. Continue same treatment. Continue with symptomatic treatment. Resume home medication. Monitor lytes and vitals. DVT and GI prophylaxis. Further recommendations of the clinical course of the patient DVT prophylaxis: Subcutaneous heparin GI Prophylaxis: Pepcid PT/OT: Pending Prognosis is guarded
[2018-05-19] MEDS: MAGNESIUM SULFATE-D5W PMX 1 GM in DEXTROSE/WATER 1 100ML.BAG IVPB SCH ×2 (13:11→14:49)
[2018-05-19] MEDS: MULTIVITAMINS, THERA 1 EACH TAB PO SCH (13:14)
[2018-05-19] MEDS: THIAMINE 100 MG TAB PO SCH ×2 (13:14→16:27)
[2018-05-19] MEDS: FOLIC ACID 1 MG TAB PO SCH (13:14)
[2018-05-20] MEDS: LORazepam 2 MG/ML INJ IV PRN ×6 (04:11→20:18)
[2018-05-20] MEDS: HYDROcodone/APAP 5-325MG 1 EACH TAB PO PRN ×3 (04:15→17:19)
[2018-05-20] MEDS: FLUTICASONE 50MCG/SPRAY NASAL 16GM EA NOSTRIL SCH (08:02)
[2018-05-20] MEDS: chlordiazePOXIDE 25 MG CAP PO SCH ×4 (08:02→20:22)
[2018-05-20] MEDS: MAGNESIUM OXIDE 400 MG TAB PO SCH ×2 (08:02→20:21)
[2018-05-20] MEDS: GABAPENTIN 300 MG CAP PO SCH ×3 (08:02→20:21)
[2018-05-20] MEDS: PANTOPRAZOLE 40 MG TABLET PO SCH (08:02)
[2018-05-20] MEDS: HEPARIN SODIUM,PORCINE 5,000 UNIT/ML 1 ML VIAL SQ SCH ×2 (08:02→20:21)
[2018-05-20] MEDS ORDERED: ALBUTEROL NEBULIZED 2.5 MG/3 ML INHALATION PRN (09:20)
[2018-05-20 09:22] LABS: ALT 34 U/L (21-72); AST 64 U/L (17-59); Albumin 3.5 g/dL (3.5-5.0); Alkaline Phosphatase 52 U/L (38-126); Anion Gap 6 mmol/L; Blood Urea Nitrogen 12 mg/dL (9-20); Calcium 8.9 mg/dL (8.4-10.2); Carbon Dioxide 32 mmol/L (22-30); Chloride 102 mmol/L (98-107); Glucose 85 mg/dL (74-99); Magnesium 1.6 mg/dL (1.6-2.3); Potassium 4.5 mmol/L (3.5-5.1); Sodium 140 mmol/L (137-145); Total Bilirubin 1.3 mg/dL (0.2-1.3); Total Protein 6.1 g/dL (6.3-8.2)
--- NOTE | 2018-05-20 10:57 | P.PN ---
Subjective This is a pleasant 42 years old male with past medical history of GERD, hypertension, ulcer arthritis, seizure disorder, sleep apnea, upper GI bleed and gastritis, who presents because of alcohol withdrawal. Patient was lying in bed little anxious and agitated. No obvious tremor. No sweating. Is on benzodiazepines. His liver enzymes and high bilirubin aren't trending down gradually. Creatinine 0.6. 05/20/2018 The patient see what score is 9 today which is higher than 6 of yesterday.. He had visual hallucinations since admission until yesterday. Today no more hallucination and patient tells is resolved. Patient states that he is feeling depressed but he denies suicidal or homicidal ideation. Continue with CIWA protocol and consult psych consult. Replace electrolytes as needed Objective - Vital Signs Vital signs: Vital Signs Temp 97.5 F L 05/20/18 05:00 Pulse 55 L 05/20/18 05:00 Resp 16 05/20/18 05:00 BP 115/73 05/20/18 05:00 Pulse Ox 98 05/20/18 05:00 Intake & Output 05/19/18 05/20/18 05/20/18 18:59 06:59 18:59 Intake Total 100 1430 Output Total 200 Balance 100 1230 Weight 117.934 kg Intake: Intake, IV Titration 100 Amount Magnesium Sulfate-D5w Pmx 100 1 gm In Dextrose/Water 1 100ml.bag @ 100 mls/hr IVPB Q1H [facility] Rx#: [id number] Oral 1430 Output: Urine 200 Other: Voiding Method Toilet # Voids 1 # Bowel Movements 0 - Exam GENERAL: The patient is alert and oriented x3, not in any acute distress. Well developed, well nourished. HEENT: Pupils are round and equally reacting to light. EOMI. No scleral icterus. No conjunctival pallor. Normocephalic, atraumatic. No pharyngeal erythema. No thyromegaly. CARDIOVASCULAR: S1 and S2 present. No murmurs, rubs, or gallops. PULMONARY: Chest is clear to auscultation, no wheezing or crackles. ABDOMEN: Soft, nontender, nondistended, normoactive bowel sounds. No palpable organomegaly. MUSCULOSKELETAL: No joint swelling or deformity. EXTREMITIES: No cyanosis, clubbing, or pedal edema. NEUROLOGICAL: Gross neurological examination did not reveal any focal deficits. SKIN: No rashes. - Labs CBC & Chem 7: 05/19/18 08:07 05/20/18 08:21 Labs: Abnormal Lab Results - Last 24 Hours (Table) 05/20/18 Range/Units 08:21 Carbon Dioxide 32 H (22-30) mmol/L AST 64 H (17-59) U/L Total Protein 6.1 L (6.3-8.2) g/dL Assessment and Plan Assessment: Acute alcohol withdrawal Alcohol abuse Alcoholic hepatitis, improving Hypomagnesemia History of depression, with no suicidal ideation. Essential hypertension History of osteoarthritis Seizure disorder History of sleep apnea on CPAP Back pain Plan: This is a pleasant 42 years old male who presents because of alcohol withdrawal. Continue with see what protocol. Continue with IV fluids. Call psych consult. Monitor labs.Labs and medication were reviewed.. Continue same treatment. Continue with symptomatic treatment. Resume home medication. Monitor lytes and vitals. DVT and GI prophylaxis. Further recommendations of the clinical course of the patient DVT prophylaxis: Subcutaneous heparin GI Prophylaxis: Pepcid PT/OT: Pending Prognosis is guarded
[2018-05-20] MEDS ORDERED: MAGNESIUM SULFATE-D5W PMX 1 GM in DEXTROSE/WATER 1 100ML.BAG IVPB ONE (12:00)
[2018-05-20] MEDS: FOLIC ACID 1 MG TAB PO SCH (12:30)
[2018-05-20] MEDS: MULTIVITAMINS, THERA 1 EACH TAB PO SCH (12:31)
[2018-05-20] MEDS: THIAMINE 100 MG TAB PO SCH ×2 (12:31→17:18)
[2018-05-21] MEDS: LORazepam 2 MG/ML INJ IV PRN ×7 (02:09→23:42)
[2018-05-21] MEDS: HYDROcodone/APAP 5-325MG 1 EACH TAB PO PRN ×4 (02:09→19:29)
[2018-05-21 07:11] LABS: ALT 41 U/L (21-72); AST 73 U/L (17-59); Albumin 3.7 g/dL (3.5-5.0); Alkaline Phosphatase 41 U/L (38-126); Anion Gap 5 mmol/L; Blood Urea Nitrogen 14 mg/dL (9-20); Calcium 9.3 mg/dL (8.4-10.2); Carbon Dioxide 31 mmol/L (22-30); Chloride 103 mmol/L (98-107); Glucose 87 mg/dL (74-99); Magnesium 1.7 mg/dL (1.6-2.3); Potassium 5.2 mmol/L (3.5-5.1); Sodium 139 mmol/L (137-145); Total Protein 6.4 g/dL (6.3-8.2)
[2018-05-21] MEDS: FLUTICASONE 50MCG/SPRAY NASAL 16GM EA NOSTRIL SCH (07:15)
[2018-05-21] MEDS: GABAPENTIN 300 MG CAP PO SCH ×3 (07:15→22:42)
[2018-05-21] MEDS: chlordiazePOXIDE 25 MG CAP PO SCH ×4 (07:15→22:42)
[2018-05-21] MEDS: PANTOPRAZOLE 40 MG TABLET PO SCH (07:16)
[2018-05-21] MEDS: MAGNESIUM OXIDE 400 MG TAB PO SCH ×2 (07:16→22:41)
[2018-05-21] MEDS: HEPARIN SODIUM,PORCINE 5,000 UNIT/ML 1 ML VIAL SQ SCH ×2 (07:16→22:42)
--- NOTE | 2018-05-21 10:13 | P.CN ---
Psychiatric Consult - . Consult date: 05/21/18 Consult:: Alcohol and depression previous history of psychiatric admission in 2017 for mental health and substance abuse 05/20/18 17:12 Assessment and Plan Assessment: HPI: This is a 42-year-old male presents emergency Department chief complaint alcohol withdrawal. Patient states that he stopped drinking 05/19/2018. Patient states that he normally drinks 1-2/5 a day. Patient states that he is shaking, nauseated and vomiting. Patient denies any chest pain, shortness breath, headache or dizziness. Patient states that he's been at the hospital and rehab several times. He is not suicidal or homicidal. Patient states he drinks secondary to stress. He has no abdominal pain. Patient denies any dysuria or hematuria PAST PSYCHIATRIC HISTORY: Patient past history of psychiatric admissions or history of suicide attempts in 2017. Reports he does have anxiety and that he has a history of taking Xanax. PAST MEDICAL HISTORY: GERD, hypertension, osteoarthritis, spinal stenosis, herniated disc. Patient denies history of seizure disorder ALLERGIES: Cephalosporin, diphenhydramine, divalproex, cephalexin, lisinopril, ceftriaxone. Patient states that he took his father's divalproex in order to sleep and he had a reaction to it with his lip swelling up CHEMICAL DEPENDENCY HISTORY: Patient reports that he went to rehab a few months ago at [facility]. FAMILY PSYCHIATRIC HISTORY: Patient reports that his father had paranoid schizophrenia and there was some bipolar on his father's side. FAMILY CHEMICAL DEPENDENCY HISTORY: Reports that his grandfather was an alcoholic. LEGAL HISTORY: DUI 10 years ago, has his license. 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 Graduated from . Never no children. GF 2 years ago, they were together for 20 years Likes to take care of lawn. Home Medications Medication Instructions Recorded Confirmed ALPRAZolam [Xanax] 1 mg PO BID PRN 11/03/17 05/17/18 Albuterol Inhaler [Ventolin Hfa 1 - 2 puff INHALATION RT-Q6H PRN 11/03/17 Inhaler] Gabapentin [Neurontin] 600 mg PO TID 11/03/17 05/17/18 Fluticasone Nasal Mckean [Flonase 2 spr EA NOSTRIL DAILY 03/27/18 05/17/18 Nasal Mckean] Previous Rx's Medication Instructions Recorded Pantoprazole [Protonix] 40 mg PO LENARD-KWASIKFSRuddy #30 tablet. 11/06/17 Thiamine [Vitamin B-1] 100 mg PO BID@1200,1700 #30 tab 11/06/17 Magnesium Oxide [Mag-Ox] 400 mg PO BID 5 Days #10 tablet 03/31/18 LORazepam [Ativan] 1 mg PO TID 3 Days #9 tab 05/11/18 Ondansetron Odt [Zofran ODT] 4 mg PO Q8HR PRN #10 tab 05/11/18 chlordiazePOXIDE HCl [Librium] 25 mg PO QID 3 Days #12 capsule 05/11/18 Allergies Allergy/AdvReac Type Severity Reaction Status Date / Time Cephalosporins Allergy Severe Anaphylaxis Verified 05/17/18 08:43 diphenhydramine HCl Allergy Severe Anaphylaxis Verified 05/17/18 08:43 [From Benadryl] divalproex sodium Allergy Severe Anaphylaxis Verified 05/17/18 08:43 [From Depakote] ceftriaxone [From Rocephin] Allergy Unknown Verified 05/17/18 08:43 cephalexin [From Keflex] Allergy Unknown Verified 05/17/18 08:43 lisinopril Allergy Unknown Verified 05/17/18 08:43 Past Medical History Past Medical History: GERD/Reflux, Hypertension, Osteoarthritis (OA), Pneumonia , Seizure Disorder, Sleep Apnea/CPAP/BIPAP Additional Past Medical History / Comment(s): Alcoholism, ETOH withdrawals, mild alcohol hepatitis, upper GI bleed, gastritis, had episode of "fainting" 1 yrs ago and told he had a seizurepossible alcoholic seizures/blackouts, bilateral varicose veins, spinal stenosis with surgery, herniated disc, MILIND no CPAP, hemorrhoids. History of Any Multi-Drug Resistant Organisms: None Reported Past Surgical History: Appendectomy, Back Surgery, Tonsillectomy Additional Past Surgical History / Comment(s): 07/13/17 EGD, 4-7-16 LAMINECTOMY, bilateral DISCETOMY L5-S1. Past Anesthesia/Blood Transfusion Reactions: Motion Sickness Past Psychological History: Anxiety, Depression Smoking Status: Former smoker Past Alcohol Use History: Abuse Past Drug Use History: Marijuana - Past Family History Father Family Medical History: Cancer, Dementia Additional Family Medical History / Comment(s): melanoma, parkinsons Mother Family Medical History: Hypertension, Musculoskeletal Disorder, Neurologic Disorder, Osteoarthritis (OA) Additional Family Medical History / Comment(s): . Had some motor neuron disease Mental Status Examination - General Appearance: [casual, appears older than stated age, Speech/Language: [spontaneous, slow, monotone, expressive, soft] Attitude/Behavior: [cooperative, indifferent] Mood: [euthymic, anxious, elated Affect: [full range] Orientation: [time, person, place situation] Thought Content: [wnl Risk Factors: [he is not suicidal (ideations, plan), and/or Homicidal (ideations , plan), other] Perception: [ Denies hallucinations Thought Processes: [goal-oriented, Concentration/Attention Span: [wnl] [Per observation and interview with the patient] Recent Memory: [wnl] [ 2 or 3 out of 3 in 3 minutes] Remote Memory: [wnl] [past events, as related history] Intelligence: [ average[based on history, based on vocabulary, syntax, grammar, and content] Judgement: [good] [per patient's behavior/history of present illness] Insight: [good [understanding severity of illness/history of present illness] Psychiatric impression: Dual diagnoses substance use disorder alcohol severe and major depressive disorder recurrent with nonadherence to medical treatment plan Psychiatric recommendations: Social work to arrange transfer to alcohol rehab such as [facility] but he refuses and rather would go to outpatient therapy and did not like AA meetings and felt it did not benefit from. Thank you for the consult Denis Barragan D.O. PhD (1) Alcohol addiction Current Visit: Yes Status: Acute Code(s): F10.20 - ALCOHOL DEPENDENCE, UNCOMPLICATED SNOMED Code(s): 61847310 (2) Alcohol withdrawal Current Visit: Yes Status: Acute Code(s): F10.239 - ALCOHOL DEPENDENCE WITH WITHDRAWAL, UNSPECIFIED SNOMED Code(s): 066527422 (3) Depression Current Visit: No Status: Acute Code(s): F32.9 - MAJOR DEPRESSIVE DISORDER, SINGLE EPISODE, UNSPECIFIED SNOMED Code(s): 91329932
[2018-05-21] MEDS: MULTIVITAMINS, THERA 1 EACH TAB PO SCH (11:09)
[2018-05-21] MEDS: FOLIC ACID 1 MG TAB PO SCH (11:09)
[2018-05-21] MEDS: THIAMINE 100 MG TAB PO SCH ×2 (11:09→17:35)
--- NOTE | 2018-05-21 17:35 | P.PN ---
Subjective This is a pleasant 42 years old male with past medical history of GERD, hypertension, ulcer arthritis, seizure disorder, sleep apnea, upper GI bleed and gastritis, who presents because of alcohol withdrawal. Patient was lying in bed little anxious and agitated. No obvious tremor. No sweating. Is on benzodiazepines. His liver enzymes and high bilirubin aren't trending down gradually. Creatinine 0.6. 05/20/2018 The patient see what score is 9 today which is higher than 6 of yesterday.. He had visual hallucinations since admission until yesterday. Today no more hallucination and patient tells is resolved. Patient states that he is feeling depressed but he denies suicidal or homicidal ideation. Continue with CIWA protocol and consult psych consult. Replace electrolytes as needed 05/21/2018 Patient is still having CIWA score on the high side, and he is getting Ativan infrequently. Patient first wanted to leave but I talked to him and he agrees to contain hospital as he is not ready for discharge at. Patient has been evaluated by psychiatric today and they recommended for him going for rehab however patient declined and he rather go to the outpatient therapy as he did not like AA meetings and it wasn't benefiting him before. mild hyperkalemia at 5.2. risks of BMP was unremarkable Objective - Vital Signs Vital signs: Vital Signs Temp 98.7 F 05/21/18 12:27 Pulse 62 05/21/18 13:46 Resp 16 05/21/18 13:46 BP 99/61 05/21/18 12:27 Pulse Ox 97 05/21/18 12:27 Intake & Output 05/20/18 05/21/18 05/21/18 18:59 06:59 18:59 Intake Total 850 1180 Output Total 200 Balance 850 980 Weight 117.934 kg Intake: IV 10 0.9 10 Oral 840 1180 Output: Urine 200 Other: Voiding Method Toilet Toilet # Voids 3 2 # Bowel Movements 0 0 - Exam GENERAL: The patient is alert and oriented x3, not in any acute distress. Well developed, well nourished. HEENT: Pupils are round and equally reacting to light. EOMI. No scleral icterus. No conjunctival pallor. Normocephalic, atraumatic. No pharyngeal erythema. No thyromegaly. CARDIOVASCULAR: S1 and S2 present. No murmurs, rubs, or gallops. PULMONARY: Chest is clear to auscultation, no wheezing or crackles. ABDOMEN: Soft, nontender, nondistended, normoactive bowel sounds. No palpable organomegaly. MUSCULOSKELETAL: No joint swelling or deformity. EXTREMITIES: No cyanosis, clubbing, or pedal edema. NEUROLOGICAL: Gross neurological examination did not reveal any focal deficits. SKIN: No rashes. - Labs CBC & Chem 7: 05/19/18 08:07 05/21/18 06:49 Labs: Abnormal Lab Results - Last 24 Hours (Table) 05/21/18 Range/Units 06:49 Potassium 5.2 H (3.5-5.1) mmol/L Carbon Dioxide 31 H (22-30) mmol/L AST 73 H (17-59) U/L Assessment and Plan Assessment: Acute alcohol withdrawal Alcohol abuse Alcoholic hepatitis, improving Hypomagnesemia History of depression, with no suicidal ideation. Essential hypertension History of osteoarthritis Seizure disorder History of sleep apnea on CPAP Back pain Plan: This is a pleasant 42 years old male who presents because of alcohol withdrawal. Continue with see what protocol. Continue with IV fluids. Call psych consult. Monitor labs.Labs and medication were reviewed.. Continue same treatment. Continue with symptomatic treatment. Resume home medication. Monitor lytes and vitals. DVT and GI prophylaxis. Further recommendations of the clinical course of the patient DVT prophylaxis: Subcutaneous heparin GI Prophylaxis: Pepcid PT/OT: Pending Prognosis is guarded
[2018-05-22] MEDS: HYDROcodone/APAP 5-325MG 1 EACH TAB PO PRN ×3 (06:03→20:55)
[2018-05-22] MEDS: LORazepam 2 MG/ML INJ IV PRN ×5 (06:03→23:46)
[2018-05-22 07:22] LABS: ALT 44 U/L (21-72); AST 77 U/L (17-59); Albumin 3.9 g/dL (3.5-5.0); Alkaline Phosphatase 48 U/L (38-126); Anion Gap 7 mmol/L; Blood Urea Nitrogen 16 mg/dL (9-20); Calcium 9.6 mg/dL (8.4-10.2); Carbon Dioxide 31 mmol/L (22-30); Chloride 103 mmol/L (98-107); Glucose 85 mg/dL (74-99); Magnesium 1.6 mg/dL (1.6-2.3); Sodium 141 mmol/L (137-145); Total Bilirubin 0.8 mg/dL (0.2-1.3); Total Protein 6.8 g/dL (6.3-8.2)
[2018-05-22] MEDS: GABAPENTIN 300 MG CAP PO SCH ×3 (08:08→21:06)
[2018-05-22] MEDS: FLUTICASONE 50MCG/SPRAY NASAL 16GM EA NOSTRIL SCH (08:08)
[2018-05-22] MEDS: HEPARIN SODIUM,PORCINE 5,000 UNIT/ML 1 ML VIAL SQ SCH ×2 (08:08→21:08)
[2018-05-22] MEDS: MAGNESIUM OXIDE 400 MG TAB PO SCH ×2 (08:09→21:06)
[2018-05-22] MEDS: PANTOPRAZOLE 40 MG TABLET PO SCH (08:09)
[2018-05-22] MEDS ORDERED: chlordiazePOXIDE 25 MG CAP PO SCH ×2 (09:00)
--- NOTE | 2018-05-22 10:44 | P.PN ---
Subjective This is a pleasant 42 years old male with past medical history of GERD, hypertension, ulcer arthritis, seizure disorder, sleep apnea, upper GI bleed and gastritis, who presents because of alcohol withdrawal. Patient was lying in bed little anxious and agitated. No obvious tremor. No sweating. Is on benzodiazepines. His liver enzymes and high bilirubin aren't trending down gradually. Creatinine 0.6. 05/20/2018 The patient see what score is 9 today which is higher than 6 of yesterday.. He had visual hallucinations since admission until yesterday. Today no more hallucination and patient tells is resolved. Patient states that he is feeling depressed but he denies suicidal or homicidal ideation. Continue with CIWA protocol and consult psych consult. Replace electrolytes as needed 05/21/2018 Patient is still having CIWA score on the high side, and he is getting Ativan infrequently. Patient first wanted to leave but I talked to him and he agrees to contain hospital as he is not ready for discharge at. Patient has been evaluated by psychiatric today and they recommended for him going for rehab however patient declined and he rather go to the outpatient therapy as he did not like AA meetings and it wasn't benefiting him before. mild hyperkalemia at 5.2. risks of BMP was unremarkable 05/22/2018 Patient continued to improve but slowly, his total needing the Ativan every 4 hours. He feels a little better as and he agrees to stay in the hospital. We going to bump up his Librium to 50 mg 4 times a day and to start tapering dose in for it. Hopefully patient will start feeling better as and 1 or 2 days. Vitals are stable and patient is afebrile. Labs reviewed and show once potassium within normal limits at 5.0. Creatinine and sodium was still within normal limits. Liver enzymes are within normal except for AST at 77 Objective - Vital Signs Vital signs: Vital Signs Temp 97.4 F L 05/22/18 05:00 Pulse 53 L 05/22/18 05:00 Resp 16 05/22/18 05:00 BP 107/63 05/22/18 05:00 Pulse Ox 99 05/22/18 05:00 Intake & Output 05/21/18 05/22/18 05/22/18 18:59 06:59 18:59 Intake Total 1180 480 Output Total 200 Balance 980 480 Weight 117.934 kg Intake: Oral 1180 480 Output: Urine 200 Other: Voiding Method Toilet Toilet # Voids 2 1 # Bowel Movements 0 - Exam GENERAL: The patient is alert and oriented x3, not in any acute distress. Well developed, well nourished. HEENT: Pupils are round and equally reacting to light. EOMI. No scleral icterus. No conjunctival pallor. Normocephalic, atraumatic. No pharyngeal erythema. No thyromegaly. CARDIOVASCULAR: S1 and S2 present. No murmurs, rubs, or gallops. PULMONARY: Chest is clear to auscultation, no wheezing or crackles. ABDOMEN: Soft, nontender, nondistended, normoactive bowel sounds. No palpable organomegaly. MUSCULOSKELETAL: No joint swelling or deformity. EXTREMITIES: No cyanosis, clubbing, or pedal edema. NEUROLOGICAL: Gross neurological examination did not reveal any focal deficits. SKIN: No rashes. - Labs CBC & Chem 7: 05/19/18 08:07 05/22/18 06:10 Labs: Abnormal Lab Results - Last 24 Hours (Table) 05/22/18 Range/Units 06:10 Carbon Dioxide 31 H (22-30) mmol/L AST 77 H (17-59) U/L Assessment and Plan Assessment: Acute alcohol withdrawal Alcohol abuse Alcoholic hepatitis, improving Hypomagnesemia History of depression, with no suicidal ideation. Essential hypertension History of osteoarthritis Seizure disorder History of sleep apnea on CPAP Back pain Plan: This is a pleasant 42 years old male who presents because of alcohol withdrawal. Continue with see what protocol. Continue with IV fluids. Call psych consult. Monitor labs.Labs and medication were reviewed.. Continue same treatment. Continue with symptomatic treatment. Resume home medication. Monitor lytes and vitals. DVT and GI prophylaxis. Further recommendations of the clinical course of the patient DVT prophylaxis: Subcutaneous heparin GI Prophylaxis: Pepcid PT/OT: Pending Prognosis is guarded
[2018-05-22] MEDS: chlordiazePOXIDE 25 MG CAP PO SCH ×4 (11:38→21:08)
[2018-05-22] MEDS: THIAMINE 100 MG TAB PO SCH ×2 (12:35→17:45)
[2018-05-22] MEDS: MULTIVITAMINS, THERA 1 EACH TAB PO SCH (12:36)
[2018-05-22] MEDS: FOLIC ACID 1 MG TAB PO SCH (12:36)
[2018-05-22] MEDS: TEMAZEPAM 15 MG CAP PO PRN (23:45)
[2018-05-23] MEDS: LORazepam 2 MG/ML INJ IV PRN ×3 (05:30→20:35)
[2018-05-23] MEDS: HYDROcodone/APAP 5-325MG 1 EACH TAB PO PRN ×3 (05:35→18:10)
[2018-05-23 07:49] LABS: ALT 49 U/L (21-72); AST 74 U/L (17-59); Albumin 3.9 g/dL (3.5-5.0); Alkaline Phosphatase 50 U/L (38-126); Anion Gap 6 mmol/L; Blood Urea Nitrogen 17 mg/dL (9-20); Calcium 9.5 mg/dL (8.4-10.2); Carbon Dioxide 31 mmol/L (22-30); Chloride 103 mmol/L (98-107); Glucose 86 mg/dL (74-99); Magnesium 1.6 mg/dL (1.6-2.3); Potassium 4.8 mmol/L (3.5-5.1); Sodium 140 mmol/L (137-145); Total Bilirubin 0.7 mg/dL (0.2-1.3); Total Protein 6.7 g/dL (6.3-8.2)
[2018-05-23] MEDS: FLUTICASONE 50MCG/SPRAY NASAL 16GM EA NOSTRIL SCH (08:25)
[2018-05-23] MEDS: GABAPENTIN 300 MG CAP PO SCH ×3 (08:26→22:29)
[2018-05-23] MEDS: MAGNESIUM OXIDE 400 MG TAB PO SCH ×2 (08:26→20:34)
[2018-05-23] MEDS: PANTOPRAZOLE 40 MG TABLET PO SCH (08:26)
[2018-05-23] MEDS: HEPARIN SODIUM,PORCINE 5,000 UNIT/ML 1 ML VIAL SQ SCH ×2 (08:26→20:34)
[2018-05-23] MEDS: chlordiazePOXIDE 25 MG CAP PO SCH ×3 (09:17→22:29)
[2018-05-23] MEDS: FOLIC ACID 1 MG TAB PO SCH (11:50)
[2018-05-23] MEDS: THIAMINE 100 MG TAB PO SCH ×2 (11:50→16:27)
[2018-05-23] MEDS: MULTIVITAMINS, THERA 1 EACH TAB PO SCH (11:51)
--- NOTE | 2018-05-23 15:55 | P.PN ---
Subjective This is a pleasant 42 years old male with past medical history of GERD, hypertension, ulcer arthritis, seizure disorder, sleep apnea, upper GI bleed and gastritis, who presents because of alcohol withdrawal. Patient was lying in bed little anxious and agitated. No obvious tremor. No sweating. Is on benzodiazepines. His liver enzymes and high bilirubin aren't trending down gradually. Creatinine 0.6. 05/20/2018 The patient see what score is 9 today which is higher than 6 of yesterday.. He had visual hallucinations since admission until yesterday. Today no more hallucination and patient tells is resolved. Patient states that he is feeling depressed but he denies suicidal or homicidal ideation. Continue with CIWA protocol and consult psych consult. Replace electrolytes as needed 05/21/2018 Patient is still having CIWA score on the high side, and he is getting Ativan infrequently. Patient first wanted to leave but I talked to him and he agrees to contain hospital as he is not ready for discharge at. Patient has been evaluated by psychiatric today and they recommended for him going for rehab however patient declined and he rather go to the outpatient therapy as he did not like AA meetings and it wasn't benefiting him before. mild hyperkalemia at 5.2. risks of BMP was unremarkable 05/22/2018 Patient continued to improve but slowly, his total needing the Ativan every 4 hours. He feels a little better as and he agrees to stay in the hospital. We going to bump up his Librium to 50 mg 4 times a day and to start tapering dose in for it. Hopefully patient will start feeling better as and 1 or 2 days. Vitals are stable and patient is afebrile. Labs reviewed and show once potassium within normal limits at 5.0. Creatinine and sodium was still within normal limits. Liver enzymes are within normal except for AST at 77 05/23/2018 Patient still needing Ativan every 4-6 hours once his CIWA score still high at times. However patient is gradually improving as he continued to improve possible discharge tomorrow. Objective - Vital Signs Vital signs: Vital Signs Temp 98.2 F 05/23/18 11:43 Pulse 67 05/23/18 11:43 Resp 18 05/23/18 11:43 BP 110/69 05/23/18 11:43 Pulse Ox 98 05/23/18 11:43 Intake & Output 05/22/18 05/23/18 05/23/18 18:59 06:59 18:59 Intake Total 10 Balance 10 Weight 117.934 kg Intake: IV 10 0.9 10 Other: Voiding Method Toilet Toilet Toilet # Voids 2 1 - Exam GENERAL: The patient is alert and oriented x3, not in any acute distress. Well developed, well nourished. HEENT: Pupils are round and equally reacting to light. EOMI. No scleral icterus. No conjunctival pallor. Normocephalic, atraumatic. No pharyngeal erythema. No thyromegaly. CARDIOVASCULAR: S1 and S2 present. No murmurs, rubs, or gallops. PULMONARY: Chest is clear to auscultation, no wheezing or crackles. ABDOMEN: Soft, nontender, nondistended, normoactive bowel sounds. No palpable organomegaly. MUSCULOSKELETAL: No joint swelling or deformity. EXTREMITIES: No cyanosis, clubbing, or pedal edema. NEUROLOGICAL: Gross neurological examination did not reveal any focal deficits. SKIN: No rashes. - Labs CBC & Chem 7: 05/19/18 08:07 05/23/18 06:21 Labs: Abnormal Lab Results - Last 24 Hours (Table) 05/23/18 Range/Units 06:21 Carbon Dioxide 31 H (22-30) mmol/L AST 74 H (17-59) U/L Assessment and Plan Assessment: Acute alcohol withdrawal Alcohol abuse Alcoholic hepatitis, improving Hypomagnesemia History of depression, with no suicidal ideation. Essential hypertension History of osteoarthritis Seizure disorder History of sleep apnea on CPAP Back pain Plan: This is a pleasant 42 years old male who presents because of alcohol withdrawal. Continue with see what protocol. Continue with IV fluids. Call psych consult. Monitor labs.Labs and medication were reviewed.. Continue same treatment. Continue with symptomatic treatment. Resume home medication. Monitor lytes and vitals. DVT and GI prophylaxis. Further recommendations of the clinical course of the patient DVT prophylaxis: Subcutaneous heparin GI Prophylaxis: Pepcid PT/OT: Pending Prognosis is guarded
[2018-05-23] MEDS: ONDANSETRON 4 MG/2 ML VIAL IVP PRN (20:35)
[2018-05-23] MEDS ORDERED: LORazepam 1 MG TAB PO PRN (23:25)
[2018-05-24] MEDS: TEMAZEPAM 15 MG CAP PO PRN (00:21)
[2018-05-24] MEDS: HYDROcodone/APAP 5-325MG 1 EACH TAB PO PRN ×3 (00:21→12:21)
[2018-05-24 07:50] LABS: Albumin 3.7 g/dL (3.5-5.0); Bilirubin, Delta 0.1 mg/dL (0.0-0.2); Bilirubin,Unconjugated 0.5 mg/dL (0.0-1.1); Magnesium 1.8 mg/dL (1.6-2.3); Total Bilirubin 0.6 mg/dL (0.2-1.3); Total Protein 6.2 g/dL (6.3-8.2)
[2018-05-24] MEDS: GABAPENTIN 300 MG CAP PO SCH (08:13)
[2018-05-24] MEDS: MAGNESIUM OXIDE 400 MG TAB PO SCH (08:13)
[2018-05-24] MEDS: HEPARIN SODIUM,PORCINE 5,000 UNIT/ML 1 ML VIAL SQ SCH (08:13)
[2018-05-24] MEDS: PANTOPRAZOLE 40 MG TABLET PO SCH (08:13)
[2018-05-24] MEDS: FLUTICASONE 50MCG/SPRAY NASAL 16GM EA NOSTRIL SCH (08:13)
[2018-05-24] MEDS ORDERED: chlordiazePOXIDE 25 MG CAP PO SCH (09:00)
[2018-05-24] MEDS: MULTIVITAMINS, THERA 1 EACH TAB PO SCH (12:16)
[2018-05-24] MEDS: THIAMINE 100 MG TAB PO SCH (12:16)
[2018-05-24] MEDS: FOLIC ACID 1 MG TAB PO SCH (12:16)
[2018-05-24 12:26] VITALS: BP 95/57; PULSE 57; RESP 15; TEMP 97.3
[2018-05-25] MEDS ORDERED: chlordiazePOXIDE 25 MG CAP PO ONE (09:00)
== END 2018-05-24 16:00 | disposition home or self-care (01) | DRG 897 ==
LOC: EC 08:11 → 3NMEDONC 09:35
PROVIDERS: ADMIT Internal Medicine; ATTEND Internal Medicine
DX: F10.231 Alcohol dependence with withdrawal delirium (principal); F33.9 Major depressive disorder, recurrent, unspecified; E83.42 Hypomagnesemia; F41.9 Anxiety disorder, unspecified; G40.909 Epilepsy, unspecified, not intractable, without status epilepticus; G47.33 Obstructive sleep apnea (adult) (pediatric); I10 Essential (primary) hypertension; Z87.01 Personal history of pneumonia (recurrent); K21.9 Gastro-esophageal reflux disease without esophagitis; K70.10 Alcoholic hepatitis without ascites; M19.90 Unspecified osteoarthritis, unspecified site; Y90.6 Blood alcohol level of 120-199 mg/100 ml; Z80.8 Family history of malignant neoplasm of other organs or systems; Z82.0 Family history of epilepsy and other diseases of the nervous system; Z82.49 Family history of ischemic heart disease and other diseases of the circulatory system; Z87.891 Personal history of nicotine dependence; Z88.1 Allergy status to other antibiotic agents; Z88.8 Allergy status to other drugs, medicaments and biological substances; Z60.2 Problems related to living alone; Z87.19 Personal history of other diseases of the digestive system; T43.96XA Underdosing of unspecified psychotropic drug, initial encounter; Z91.128 Patient's intentional underdosing of medication regimen for other reason; Z81.8 Family history of other mental and behavioral disorders; Z79.899 Other long term (current) drug therapy; M48.00 Spinal stenosis, site unspecified; I83.90 Asymptomatic varicose veins of unspecified lower extremity
CPT/HCPCS: 36415; 80053; 80076; 80320; 81003; 83690; 83735; 84100; 85025; 85610; 85730; 96361; 96365; 96372; 96374; 96375; 99285

== ENCOUNTER 2018-06-15 23:50 | Inpatient (IN) | payer OTHER ==
[2018-06-16] MEDS ORDERED: LORazepam 2 MG/ML INJ IV STA ×4 (00:11→02:03)
[2018-06-16] MEDS ORDERED: MAG HYDROX/AL HYDROX/SIMETH 30 ML, HYOSCYAMINE ELIXIR 10 ML, CIMETIDINE HCL 300 MG, LID... PO STA ×4 (00:27)
[2018-06-16] MEDS ORDERED: SODIUM CHLORIDE 0.9% 2,000 ML IV STA (00:27)
[2018-06-16] MEDS ORDERED: ONDANSETRON 4 MG/2 ML VIAL IVP STA (00:27)
[2018-06-16 00:37] LABS: Basophils % (A) 0 %; Eosinophils % (A) 0 %; HCT 47.6 % (39.0-53.0); HGB 15.4 gm/dL (13.0-17.5); Lymphocytes # (A) 2.2 k/uL (1.0-4.8); Lymphocytes % (A) 23 %; MCH 29.9 pg (25.0-35.0); MCHC 32.4 g/dL (31.0-37.0); Mean Platelet Volume 7.1; Monocytes # (A) 0.4 k/uL (0-1.0); Monocytes % (A) 4 %; Neutrophils # (A) 6.6 k/uL (1.3-7.7); Neutrophils % (A) 70 %; Platelet Count 144 k/uL (150-450); RBC 5.17 m/uL (4.30-5.90); RDW 13.5 % (11.5-15.5); WBC 9.4 k/uL (3.8-10.6)
--- NOTE | 2018-06-16 00:43 | XR ---
EXAMINATION TYPE: XR chest 2V DATE OF EXAM: 06/16/2018 COMPARISON: 10/22/2017 HISTORY: Chest pain TECHNIQUE: Frontal and lateral views of the chest are obtained. FINDINGS: Heart and mediastinum are normal. Lungs are clear. Diaphragm is normal. Bony thorax appear s normal. IMPRESSION: Normal chest. No change.
--- NOTE | 2018-06-16 00:44 | ED ---
Nausea/Vomiting/Diarrhea HPI - General Chief complaint: Nausea/Vomiting/Diarrhea Stated complaint: CHEST PAIN Time Seen by Provider: 06/15/18 23:54 Source: patient, EMS Mode of arrival: EMS Limitations: physical limitation - History of Present Illness Initial comments: This patient is a 42-year-old man who presents to be evaluated for vomiting and chest pain, that he believes is related to alcohol withdrawal. He states that he drinks between 1-2/5 of alcohol per day, and that he ran out yesterday. He started having nausea and vomiting, and then feeling very shaky. He states that he has previously had seizures due to withdrawal before. The patient describes a burning substernal type of pain that came on after a few episodes of vomiting. He did not note any blood in the vomitus or any coffee-ground material. No change in bowel movements. He has not had anginal symptoms, including no dyspnea, diaphoresis, leg heaviness, palpitations or syncope. MD complaint: vomiting, other -: hour(s) Description of Vomiting: food contents - Related Data Home Medications Medication Instructions Recorded Confirmed ALPRAZolam [Xanax] 1 mg PO BID PRN 11/03/17 05/17/18 Albuterol Inhaler [Ventolin Hfa 1 - 2 puff INHALATION RT-Q6H PRN 11/03/17 Inhaler] Gabapentin [Neurontin] 600 mg PO TID 11/03/17 05/17/18 Fluticasone Nasal [place] [Flonase 2 spr EA NOSTRIL DAILY 03/27/18 05/17/18 Nasal [place]] Previous Rx's Medication Instructions Recorded Pantoprazole [Protonix] 40 mg PO LENARD-KWASIKBILL #30 tablet. 11/06/17 Thiamine [Vitamin B-1] 100 mg PO BID@1200,1700 #30 tab 11/06/17 Magnesium Oxide [Mag-Ox] 400 mg PO BID 5 Days #10 tablet 03/31/18 LORazepam [Ativan] 1 mg PO TID 3 Days #9 tab 05/11/18 Ondansetron Odt [Zofran ODT] 4 mg PO Q8HR PRN #10 tab 05/11/18 chlordiazePOXIDE HCl [Librium] 25 mg PO QID 3 Days #12 capsule 05/11/18 Folic Acid 1 mg PO DAILY@1200 14 Days #14 tab 05/24/18 Multivitamins, Thera [Multivitamin 1 each PO DAILY@1200 #30 tab 05/24/18 (formulary)] Pantoprazole [Protonix] 40 mg PO AC-BRKFST #15 tablet. 05/24/18 chlordiazePOXIDE HCl [Librium] 50 mg PO BID #2 cap 05/24/18 chlordiazePOXIDE HCl [Librium] 50 mg PO ONCE #1 cap 05/24/18 Allergies Allergy/AdvReac Type Severity Reaction Status Date / Time Cephalosporins Allergy Severe Anaphylaxis Verified 06/15/18 23:52 diphenhydramine HCl Allergy Severe Anaphylaxis Verified 06/15/18 23:52 [From Benadryl] divalproex sodium Allergy Severe Anaphylaxis Verified 06/15/18 23:52 [From Depakote] ceftriaxone [From Rocephin] Allergy Unknown Verified 06/15/18 23:52 cephalexin [From Keflex] Allergy Unknown Verified 06/15/18 23:52 lisinopril Allergy Unknown Verified 06/15/18 23:52 Review of Systems ROS Statement: Those systems with pertinent positive or pertinent negative responses have been documented in the HPI. ROS Other: All systems not noted in ROS Statement are negative. Constitutional: Denies: fever, chills Respiratory: Denies: cough, dyspnea, hemoptysis Cardiovascular: Reports: as per HPI, chest pain. Denies: palpitations, orthopnea, edema, syncope Gastrointestinal: Reports: nausea, vomiting. Denies: abdominal pain, diarrhea, hematemesis, melena, hematochezia Genitourinary: Denies: dysuria, hematuria Musculoskeletal: Denies: back pain Skin: Denies: rash Neurological: Denies: headache, weakness, numbness Past Medical History Past Medical History: GERD/Reflux, Hypertension, Osteoarthritis (OA), Pneumonia , Seizure Disorder, Sleep Apnea/CPAP/BIPAP Additional Past Medical History / Comment(s): Alcoholism, ETOH withdrawals, mild alcohol hepatitis, upper GI bleed, gastritis, abdominal pain, hypomagnesemia, past episode of "fainting" and told he had a seizurepossible alcoholic seizures/blackouts, bilateral varicose veins, spinal stenosis with surgery, herniated disc, MILIND no CPAP, hemorrhoids. History of Any Multi-Drug Resistant Organisms: None Reported Past Surgical History: Appendectomy, Back Surgery, Tonsillectomy Additional Past Surgical History / Comment(s): 07/13/17 EGD, 4-7-16 LAMINECTOMY, bilateral DISCETOMY L5-S1. Past Anesthesia/Blood Transfusion Reactions: Motion Sickness Past Psychological History: Anxiety, Depression Smoking Status: Former smoker Past Alcohol Use History: Abuse, Daily, Heavy Past Drug Use History: Marijuana - Past Family History Father Family Medical History: Cancer, Dementia Additional Family Medical History / Comment(s): melanoma, parkinsons Mother Family Medical History: Hypertension, Musculoskeletal Disorder, Neurologic Disorder, Osteoarthritis (OA) Additional Family Medical History / Comment(s): . Had some motor neuron disease General Exam Limitations: physical limitation General appearance: alert, in no apparent distress, anxious Head exam: Present: atraumatic, normocephalic Eye exam: Present: normal appearance. Absent: scleral icterus, conjunctival injection ENT exam: Present: mucous membranes dry Neck exam: Present: normal inspection Respiratory exam: Present: normal lung sounds bilaterally. Absent: respiratory distress, wheezes, rales, rhonchi, stridor Cardiovascular Exam: Present: normal rhythm, tachycardia, normal heart sounds. Absent: systolic murmur, diastolic murmur, rubs, gallop GI/Abdominal exam: Present: soft. Absent: distended, tenderness, guarding, rebound, rigid, mass Extremities exam: Present: normal inspection, normal capillary refill. Absent: pedal edema, calf tenderness Neurological exam: Present: alert, oriented X3, CN II-XII intact, other ( Patient is moderately tremulous). Absent: motor sensory deficit Skin exam: Present: warm, dry, intact, normal color. Absent: rash Course Vital Signs 06/15/18 06/16/18 06/16/18 23:52 00:39 01:07 Temperature 99.2 F Pulse Rate 124 H 100 92 Respiratory 18 18 18 Rate Blood Pressure 166/102 157/104 155/102 O2 Sat by Pulse 100 100 100 Oximetry 06/16/18 01:43 Temperature Pulse Rate 86 Respiratory 18 Rate Blood Pressure 149/100 O2 Sat by Pulse 99 Oximetry Medical Decision Making - Lab Data Result diagrams: 06/16/18 00:06 06/16/18 00:06 Lab Results 06/16/18 06/16/18 Range/Units 00:06 00:06 WBC 9.4 (3.8-10.6) k/uL RBC 5.17 (4.30-5.90) m/uL Hgb 15.4 (13.0-17.5) gm/dL Hct 47.6 (39.0-53.0) % MCV 92.0 (80.0-100.0) fL MCH 29.9 (25.0-35.0) pg MCHC 32.4 (31.0-37.0) g/dL RDW 13.5 (11.5-15.5) % Plt Count 144 L (150-450) k/uL Neutrophils % 70 % Lymphocytes % 23 % Monocytes % 4 % Eosinophils % 0 % Basophils % 0 % Neutrophils # 6.6 (1.3-7.7) k/uL Lymphocytes # 2.2 (1.0-4.8) k/uL Monocytes # 0.4 (0-1.0) k/uL Eosinophils # 0.0 (0-0.7) k/uL Basophils # 0.0 (0-0.2) k/uL Sodium 140 (137-145) mmol/L Potassium 4.9 (3.5-5.1) mmol/L Chloride 93 L (98-107) mmol/L Carbon Dioxide 22 (22-30) mmol/L Anion Gap 25 mmol/L BUN 17 (9-20) mg/dL Creatinine 0.83 (0.66-1.25) mg/dL Est GFR (CKD-EPI)AfAm >90 (>60 ml/min/1.73 sqM) Est GFR (CKD-EPI)NonAf >90 (>60 ml/min/1.73 sqM) Glucose 82 (74-99) mg/dL Calcium 9.5 (8.4-10.2) mg/dL Total Bilirubin 2.0 H (0.2-1.3) mg/dL AST 163 H (17-59) U/L ALT 61 (21-72) U/L Alkaline Phosphatase 64 (38-126) U/L Total Protein 8.2 (6.3-8.2) g/dL Albumin 5.3 H (3.5-5.0) g/dL Amylase 77 (30-110) U/L Lipase 118 (23-300) U/L Disposition Clinical Impression: Delirium tremens Disposition: ADMITTED IP TO THIS HOSP Condition: Serious Referrals: Veena Bynum DO [Primary Care Provider] - 1-2 days
[2018-06-16 00:46] LABS: ALT 61 U/L (21-72); AST 163 U/L (17-59); Albumin 5.3 g/dL (3.5-5.0); Alkaline Phosphatase 64 U/L (38-126); Amylase 77 U/L (30-110); Anion Gap 25 mmol/L; Blood Urea Nitrogen 17 mg/dL (9-20); Calcium 9.5 mg/dL (8.4-10.2); Carbon Dioxide 22 mmol/L (22-30); Chloride 93 mmol/L (98-107); Glucose 82 mg/dL (74-99); Lipase 118 U/L (23-300); Potassium 4.9 mmol/L (3.5-5.1); Sodium 140 mmol/L (137-145); Total Protein 8.2 g/dL (6.3-8.2)
[2018-06-16] MEDS ORDERED: THIAMINE 100 MG TAB PO STA (01:00)
[2018-06-16] MEDS ORDERED: NALOXONE 0.4 MG/ML 1 ML VIAL IV PRN (02:03)
[2018-06-16] MEDS ORDERED: ALBUTEROL NEBULIZED 2.5 MG/3 ML INHALATION PRN (02:05)
[2018-06-16] MEDS ORDERED: THIAMINE 100 MG/ML 2 ML VIAL IM STA (02:05)
[2018-06-16] MEDS: SODIUM CHLORIDE 0.9% 1,000 ML IV SCH ×3 (04:08→18:08)
[2018-06-16] MEDS ORDERED: IBUPROFEN 600 MG TAB PO STA (04:11)
[2018-06-16] MEDS: LORazepam 2 MG/ML INJ IV PRN ×9 (05:56→23:06)
[2018-06-16] MEDS ORDERED: PANTOPRAZOLE 40 MG TABLET PO SCH (07:30)
[2018-06-16] MEDS: GABAPENTIN 300 MG CAP PO SCH ×3 (10:15→20:16)
[2018-06-16] MEDS: MAGNESIUM OXIDE 400 MG TAB PO SCH ×2 (10:15→20:16)
[2018-06-16] MEDS: FOLIC ACID 1 MG TAB PO SCH (10:16)
[2018-06-16] MEDS: ONDANSETRON ODT 4 MG TAB PO PRN ×2 (13:36→20:16)
[2018-06-16] MEDS: PANTOPRAZOLE 40 MG/10 ML VIAL IVP SCH ×2 (13:40→23:01)
--- NOTE | 2018-06-16 14:53 | P.HPIM ---
History of Present Illness This is a pleasant 42 years old male with past medical history of alcohol with abuse and alcohol withdrawal. He was just recently discharged from the hospital for same complaint, this time he presents with nausea, vomiting several times with some heartburn sensation, and limits of loose bowel movement. Patient thinks that his symptoms usually happens to him for his alcohol withdrawal. He has no dyspnea. When he stepped into the room patient was sleeping, no leg pain. Patient states he drinks half pint of vodka every day and his last drink was yesterday. Review of Systems CONSTITUTIONAL: No fever, no malaise, no fatigue. HEENT: No recent visual problems or hearing problems. Denied any sore throat. CARDIOVASCULAR: No orthopnea, PND, no palpitations, no syncope. PULMONARY: No shortness of breath, no cough, no hemoptysis. GASTROINTESTINAL: No diarrhea, no nausea, no vomiting, no abdominal pain. Normoactive bowel sounds. NEUROLOGICAL: No headaches, no weakness, no numbness. HEMATOLOGICAL: Denies any bleeding or petechiae. GENITOURINARY: Denies any burning micturition, frequency, or urgency. MUSCULOSKELETAL/RHEUMATOLOGICAL: Denies any joint pain, swelling, or any muscle pain. ENDOCRINE: Denies any polyuria or polydipsia. Past Medical History Past Medical History: GERD/Reflux, Hypertension, Osteoarthritis (OA), Pneumonia , Seizure Disorder, Sleep Apnea/CPAP/BIPAP Additional Past Medical History / Comment(s): Alcoholism, ETOH withdrawals, mild alcohol hepatitis, upper GI bleed, gastritis, abdominal pain, hypomagnesemia, past episode of "fainting" and told he had a seizurepossible alcoholic seizures/blackouts, bilateral varicose veins, spinal stenosis with surgery, herniated disc, MILIND no CPAP, hemorrhoids. History of Any Multi-Drug Resistant Organisms: None Reported Past Surgical History: Appendectomy, Back Surgery, Tonsillectomy Additional Past Surgical History / Comment(s): 07/13/17 EGD, 09-20-15 LAMINECTOMY, bilateral DISCETOMY L5-S1. Past Anesthesia/Blood Transfusion Reactions: Motion Sickness Past Psychological History: Anxiety, Depression Additional Psychological History / Comment(s): pt lives alone in house, no pets. Pt uses no assistive device. He drives. Pt is an alcoholic. He has been in rehab for his alcoholism in the past. 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 - Past Family History Father Family Medical History: Cancer, Dementia Additional Family Medical History / Comment(s): melanoma, parkinsons Mother Family Medical History: Hypertension, Musculoskeletal Disorder, Neurologic Disorder, Osteoarthritis (OA) Additional Family Medical History / Comment(s): . Had some motor neuron disease Medications and Allergies Home Medications Medication Instructions Recorded Confirmed Type ALPRAZolam [Xanax] 1 mg PO BID PRN 11/03/17 06/16/18 History Albuterol Inhaler [Ventolin Hfa 1 - 2 puff INHALATION RT-Q6H PRN 11/03/17 History Inhaler] Gabapentin [Neurontin] 600 mg PO TID 11/03/17 06/16/18 History Thiamine [Vitamin B-1] 100 mg PO BID@1200,1700 #30 tab 11/06/17 06/16/18 Rx Fluticasone Nasal [place] [Flonase 2 spr EA NOSTRIL DAILY 03/27/18 06/16/18 History Nasal [place]] Magnesium Oxide [Mag-Ox] 400 mg PO BID 5 Days #10 tablet 03/31/18 06/16/18 Rx Ondansetron Odt [Zofran ODT] 4 mg PO Q8HR PRN #10 tab 05/11/18 06/16/18 Rx chlordiazePOXIDE HCl [Librium] 25 mg PO QID 3 Days #12 capsule 05/11/18 Rx Folic Acid 1 mg PO DAILY@1200 14 Days #14 tab 05/24/18 06/16/18 Rx Pantoprazole [Protonix] 40 mg PO AC-BRKFST #15 tablet. 05/24/18 06/16/18 Rx chlordiazePOXIDE HCl [Librium] 50 mg PO BID #2 cap 05/24/18 06/16/18 Rx Multivitamins, Thera [Multivitamin 1 tab PO DAILY@1200 06/16/18 06/16/18 History (formulary)] Allergies Allergy/AdvReac Type Severity Reaction Status Date / Time Cephalosporins Allergy Severe Anaphylaxis Verified 06/16/18 07:49 diphenhydramine HCl Allergy Severe Anaphylaxis Verified 06/16/18 07:49 [From Benadryl] divalproex sodium Allergy Severe Anaphylaxis Verified 06/16/18 07:49 [From Depakote] ceftriaxone [From Rocephin] Allergy Unknown Verified 06/16/18 07:49 cephalexin [From Keflex] Allergy Unknown Verified 06/16/18 07:49 lisinopril Allergy Unknown Verified 06/16/18 07:49 Physical Exam Vitals: Vital Signs Temp Pulse Pulse Resp BP BP Pulse Ox 06/16/18 11:42 97.7 F 102 H 16 129/83 100 06/16/18 05:49 98.9 F 84 18 137/96 98 06/16/18 03:19 100.0 F H 93 17 151/96 99 06/16/18 02:10 90 18 141/89 100 06/16/18 01:43 86 18 149/100 99 06/16/18 01:07 92 18 155/102 100 06/16/18 00:39 100 18 157/104 100 06/15/18 23:52 99.2 F 124 H 18 166/102 100 Intake and Output 06/15/18 06/16/18 06/16/18 22:59 06:59 14:59 Other: Weight 113.398 kg GENERAL: The patient is alert and oriented x3, not in any acute distress. Well developed, well nourished. HEENT: Pupils are round and equally reacting to light. EOMI. No scleral icterus. No conjunctival pallor. Normocephalic, atraumatic. No pharyngeal erythema. No thyromegaly. CARDIOVASCULAR: S1 and S2 present. No murmurs, rubs, or gallops. PULMONARY: Chest is clear to auscultation, no wheezing or crackles. ABDOMEN: Soft, nontender, nondistended, normoactive bowel sounds. No palpable organomegaly. MUSCULOSKELETAL: No joint swelling or deformity. EXTREMITIES: No cyanosis, clubbing, or pedal edema. NEUROLOGICAL: Gross neurological examination did not reveal any focal deficits. SKIN: No rashes. Results CBC & Chem 7: 06/16/18 00:06 06/16/18 00:06 Labs: Abnormal Lab Results - Last 24 Hours (Table) 06/16/18 06/16/18 Range/Units 00:06 00:06 Plt Count 144 L (150-450) k/uL Chloride 93 L (98-107) mmol/L Total Bilirubin 2.0 H (0.2-1.3) mg/dL AST 163 H (17-59) U/L Albumin 5.3 H (3.5-5.0) g/dL Thrombosis Risk Factor Assmnt - Choose All That Apply Any of the Below Risk Factors Present?: No Other Risk Factors: No Other congenital or acquired thrombophilia - If yes, enter type in comment: No Thrombosis Risk Factor Assessment Level: Very Low Risk Assessment and Plan Assessment: Gastroenteritis, mostly secondary to alcohol abuse Acute alcohol withdrawal Alcohol abuse Alcoholic hepatitis, improving Hypomagnesemia History of depression, with no suicidal ideation. Essential hypertension History of osteoarthritis Seizure disorder History of sleep apnea on CPAP Back pain Plan: This is a pleasant 42 years old male who presents because of withdrawal. We'll continue with her vitamin therapy and CIWA protocol, continue with antiacids and IV fluids. Labs and medication were reviewed.. Continue same treatment. Continue with symptomatic treatment. Resume home medication. Monitor lytes and vitals. DVT and GI prophylaxis. Further recommendations of the clinical course of the patient DVT prophylaxis: Subcutaneous heparin GI Prophylaxis: Pepcid PT/OT: Pending Prognosis is guarded
[2018-06-16] MEDS: THIAMINE 100 MG TAB PO SCH (16:50)
[2018-06-16] MEDS: FAMOTIDINE 20 MG/2 ML VIAL IV SCH (20:16)
[2018-06-16] MEDS: HEPARIN SODIUM,PORCINE 5,000 UNIT/ML 1 ML VIAL SQ SCH (20:17)
[2018-06-17] MEDS: LORazepam 2 MG/ML INJ IV PRN ×9 (03:10→22:28)
[2018-06-17] MEDS: SODIUM CHLORIDE 0.9% 1,000 ML IV SCH ×3 (05:33→18:39)
[2018-06-17] MEDS: PANTOPRAZOLE 40 MG/10 ML VIAL IVP SCH ×2 (08:48→20:30)
[2018-06-17] MEDS: MAGNESIUM OXIDE 400 MG TAB PO SCH ×2 (08:49→20:31)
[2018-06-17] MEDS: HEPARIN SODIUM,PORCINE 5,000 UNIT/ML 1 ML VIAL SQ SCH ×2 (08:49→20:31)
[2018-06-17] MEDS: FAMOTIDINE 20 MG/2 ML VIAL IV SCH (08:49)
[2018-06-17] MEDS: GABAPENTIN 300 MG CAP PO SCH ×3 (08:49→20:30)
[2018-06-17] MEDS: THIAMINE 100 MG TAB PO SCH ×2 (08:49→15:59)
[2018-06-17] MEDS: FOLIC ACID 1 MG TAB PO SCH (08:49)
[2018-06-17] MEDS: HYDROcodone/APAP 5-325MG 1 EACH TAB PO PRN ×3 (08:58→22:27)
[2018-06-17 14:52] LABS: Albumin 5.2 g/dL (3.5-5.0); Bilirubin, Delta 0.5 mg/dL (0.0-0.2); Bilirubin,Unconjugated 1.6 mg/dL (0.0-1.1); Total Bilirubin 2.1 mg/dL (0.2-1.3); Total Protein 8.3 g/dL (6.3-8.2)
--- NOTE | 2018-06-17 15:00 | P.PN ---
Subjective 06/17/2018 Patient today feels better, less nausea vomiting. No diarrhea. No chest pain or epigastric discomfort. He has some slight headache this and a little bit of a tremor. Continue with [place] protocol getting Ativan. However patient progressing. Dyspnea discharge in 24-48 hours. Objective - Vital Signs Vital signs: Vital Signs Temp 98.2 F 06/17/18 12:00 Pulse 79 06/17/18 12:00 Resp 14 06/17/18 12:00 BP 129/81 06/17/18 12:00 Pulse Ox 94 L 06/17/18 12:00 Intake & Output 06/16/18 06/17/18 06/17/18 18:59 06:59 18:59 Intake Total 1435 375 118 Output Total 600 Balance 835 375 118 Weight 109.3 kg Intake: IV 875 375 Sodium Chloride 0.9% 1, 875 375 000 ml @ 125 mls/hr IV . Q8H [facility] Rx#:[id number] Oral 560 118 Output: Urine 600 Other: Voiding Method Toilet Toilet # Voids 2 1 - Exam GENERAL: The patient is alert and oriented x3, not in any acute distress. Well developed, well nourished. HEENT: Pupils are round and equally reacting to light. EOMI. No scleral icterus. No conjunctival pallor. Normocephalic, atraumatic. No pharyngeal erythema. No thyromegaly. CARDIOVASCULAR: S1 and S2 present. No murmurs, rubs, or gallops. PULMONARY: Chest is clear to auscultation, no wheezing or crackles. ABDOMEN: Soft, nontender, nondistended, normoactive bowel sounds. No palpable organomegaly. MUSCULOSKELETAL: No joint swelling or deformity. EXTREMITIES: No cyanosis, clubbing, or pedal edema. NEUROLOGICAL: Gross neurological examination did not reveal any focal deficits. SKIN: No rashes. - Labs CBC & Chem 7: 06/16/18 00:06 06/16/18 00:06 Labs: Abnormal Lab Results - Last 24 Hours (Table) 06/16/18 Range/Units 00:09 Total Bilirubin 2.1 H (0.2-1.3) mg/dL Unconjugated Bilirubin 1.6 H (0.0-1.1) mg/dL Delta Bilirubin 0.5 H (0.0-0.2) mg/dL AST 166 H (17-59) U/L ALT 81 H (21-72) U/L Total Protein 8.3 H (6.3-8.2) g/dL Albumin 5.2 H (3.5-5.0) g/dL Assessment and Plan Assessment: Gastroenteritis, mostly secondary to alcohol abuse Acute alcohol withdrawal Alcohol abuse Alcoholic hepatitis, improving Hypomagnesemia History of depression, with no suicidal ideation. Essential hypertension History of osteoarthritis Seizure disorder History of sleep apnea on CPAP Back pain Plan: This is a pleasant 42 years old male who presents because of withdrawal. We'll continue with her vitamin therapy and CIWA protocol, continue with antiacids and IV fluids. Labs and medication were reviewed.. Continue same treatment. Continue with symptomatic treatment. Resume home medication. Monitor lytes and vitals. DVT and GI prophylaxis. Further recommendations of the clinical course of the patient DVT prophylaxis: Subcutaneous heparin GI Prophylaxis: Pepcid PT/OT: Pending Prognosis is guarded
[2018-06-17] MEDS: ONDANSETRON ODT 4 MG TAB PO PRN (23:20)
[2018-06-18] MEDS: LORazepam 2 MG/ML INJ IV PRN ×5 (00:40→12:08)
[2018-06-18 00:53] LABS: Albumin 3.5 g/dL (3.5-5.0); Bilirubin, Delta 0.1 mg/dL (0.0-0.2); Bilirubin,Unconjugated 2.1 mg/dL (0.0-1.1); Magnesium 1.2 mg/dL (1.6-2.3); Total Bilirubin 2.2 mg/dL (0.2-1.3); Total Protein 5.8 g/dL (6.3-8.2)
[2018-06-18] MEDS: SODIUM CHLORIDE 0.9% 1,000 ML IV SCH ×3 (03:17→20:31)
[2018-06-18] MEDS: HYDROcodone/APAP 5-325MG 1 EACH TAB PO PRN ×3 (04:45→18:38)
[2018-06-18] MEDS: PANTOPRAZOLE 40 MG/10 ML VIAL IVP SCH ×2 (07:25→20:31)
[2018-06-18] MEDS: MAGNESIUM OXIDE 400 MG TAB PO SCH ×2 (07:26→20:31)
[2018-06-18] MEDS: GABAPENTIN 300 MG CAP PO SCH ×3 (07:26→20:31)
[2018-06-18] MEDS: HEPARIN SODIUM,PORCINE 5,000 UNIT/ML 1 ML VIAL SQ SCH ×2 (07:26→20:30)
[2018-06-18] MEDS: FOLIC ACID 1 MG TAB PO SCH (11:11)
[2018-06-18] MEDS: THIAMINE 100 MG TAB PO SCH ×2 (11:11→15:33)
[2018-06-18] MEDS: MAGNESIUM SULFATE-D5W PMX 1 GM in DEXTROSE/WATER 1 100ML.BAG IVPB SCH ×2 (15:34→16:53)
--- NOTE | 2018-06-18 19:20 | P.PN ---
Subjective 06/17/2018 Patient today feels better, less nausea vomiting. No diarrhea. No chest pain or epigastric discomfort. He has some slight headache this and a little bit of a tremor. Continue with [facility] protocol getting Ativan. However patient progressing. Dyspnea discharge in 24-48 hours. 06/18/2018 Patient continued to improve however he still have some shakiness, we switched Ativan to oral supplementation. Magnesium is been replaced Discharge planning 24-48 hours Objective - Vital Signs Vital signs: Vital Signs Temp 98.6 F 06/18/18 14:41 Pulse 95 06/18/18 14:41 Resp 20 06/18/18 14:41 BP 150/94 06/18/18 14:41 Pulse Ox 96 06/18/18 14:41 Intake & Output 06/18/18 06/18/18 06/19/18 06:59 18:59 06:59 Intake Total 1000 640 Balance 1000 640 Weight 110.3 kg Intake: IV 1000 Sodium Chloride 0.9% 1, 1000 000 ml @ 125 mls/hr IV . Q8H [facility] Rx#:[id number] Oral 640 Other: Voiding Method Toilet # Voids 1 2 - Exam GENERAL: The patient is alert and oriented x3, not in any acute distress. Well developed, well nourished. HEENT: Pupils are round and equally reacting to light. EOMI. No scleral icterus. No conjunctival pallor. Normocephalic, atraumatic. No pharyngeal erythema. No thyromegaly. CARDIOVASCULAR: S1 and S2 present. No murmurs, rubs, or gallops. PULMONARY: Chest is clear to auscultation, no wheezing or crackles. ABDOMEN: Soft, nontender, nondistended, normoactive bowel sounds. No palpable organomegaly. MUSCULOSKELETAL: No joint swelling or deformity. EXTREMITIES: No cyanosis, clubbing, or pedal edema. NEUROLOGICAL: Gross neurological examination did not reveal any focal deficits. SKIN: No rashes. - Labs CBC & Chem 7: 06/16/18 00:06 06/16/18 00:06 Labs: Abnormal Lab Results - Last 24 Hours (Table) 06/18/18 Range/Units 00:28 Magnesium 1.2 L (1.6-2.3) mg/dL Total Bilirubin 2.2 H (0.2-1.3) mg/dL Unconjugated Bilirubin 2.1 H (0.0-1.1) mg/dL AST 101 H (17-59) U/L Total Protein 5.8 L (6.3-8.2) g/dL Assessment and Plan Assessment: Gastroenteritis, mostly secondary to alcohol abuse Acute alcohol withdrawal Alcohol abuse Alcoholic hepatitis, improving Hypomagnesemia History of depression, with no suicidal ideation. Essential hypertension History of osteoarthritis Seizure disorder History of sleep apnea on CPAP Back pain Plan: This is a pleasant 42 years old male who presents because of withdrawal. We'll continue with her vitamin therapy and CIWA protocol, continue with antiacids and IV fluids. Labs and medication were reviewed.. Continue same treatment. Continue with symptomatic treatment. Resume home medication. Monitor lytes and vitals. DVT and GI prophylaxis. Further recommendations of the clinical course of the patient DVT prophylaxis: Subcutaneous heparin GI Prophylaxis: Pepcid PT/OT: Pending Prognosis is guarded
[2018-06-18] MEDS: LORazepam 1 MG TAB PO PRN (20:31)
[2018-06-19] MEDS: HYDROcodone/APAP 5-325MG 1 EACH TAB PO PRN ×3 (01:45→14:02)
[2018-06-19] MEDS: MAGNESIUM SULFATE-D5W PMX 1 GM in DEXTROSE/WATER 1 100ML.BAG IVPB SCH ×4 (01:45→16:05)
[2018-06-19 02:37] LABS: HCT 40.8 % (39.0-53.0); MCH 30.5 pg (25.0-35.0); MCHC 31.9 g/dL (31.0-37.0); MCV 95.7 fL (80.0-100.0); Mean Platelet Volume 8.3; RBC 4.26 m/uL (4.30-5.90); RDW 13.4 % (11.5-15.5); WBC 4.4 k/uL (3.8-10.6)
[2018-06-19 02:40] LABS: ALT 55 U/L (21-72); AST 105 U/L (17-59); Albumin 3.7 g/dL (3.5-5.0); Alkaline Phosphatase 60 U/L (38-126); Anion Gap 7 mmol/L; Bilirubin, Delta 0.2 mg/dL (0.0-0.2); Blood Urea Nitrogen 10 mg/dL (9-20); Carbon Dioxide 29 mmol/L (22-30); Chloride 102 mmol/L (98-107); Glucose 107 mg/dL (74-99); Magnesium 1.7 mg/dL (1.6-2.3); Potassium 4.4 mmol/L (3.5-5.1); Sodium 138 mmol/L (137-145); Total Bilirubin 1.2 mg/dL (0.2-1.3); Total Protein 6.1 g/dL (6.3-8.2)
[2018-06-19 03:20] LABS: Eosinophils # (M) 0.13 k/uL (0-0.7); Lymphocytes # (M) 2.42 k/uL (1.0-4.8); Monocytes # (M) 0.35 k/uL (0-1.0); Neutrophils % (M) 34 %; Nucleated Red Blood Cells 0 /100 WBC (0-0); Total Cells Counted 100
[2018-06-19 03:21] LABS: Platelet Count 85 k/uL (150-450)
[2018-06-19] MEDS: SODIUM CHLORIDE 0.9% 1,000 ML IV SCH ×3 (03:27→15:25)
[2018-06-19] MEDS: LORazepam 1 MG TAB PO PRN ×2 (05:01→12:04)
[2018-06-19 08:37] VITALS: RESP 18
[2018-06-19] MEDS: PANTOPRAZOLE 40 MG/10 ML VIAL IVP SCH (08:37)
[2018-06-19] MEDS: THIAMINE 100 MG TAB PO SCH ×2 (08:37→15:24)
[2018-06-19] MEDS: HEPARIN SODIUM,PORCINE 5,000 UNIT/ML 1 ML VIAL SQ SCH (08:38)
[2018-06-19] MEDS: MAGNESIUM OXIDE 400 MG TAB PO SCH (08:38)
[2018-06-19] MEDS: FOLIC ACID 1 MG TAB PO SCH (08:38)
[2018-06-19] MEDS: GABAPENTIN 300 MG CAP PO SCH ×2 (08:38→15:23)
[2018-06-19 14:44] VITALS: BP 138/81; PULSE 76; TEMP 98.5
--- NOTE | 2018-06-19 16:48 | P.DS ---
Providers Date of admission: 06/16/18 02:05 Attending physician: Aida Arias Primary care physician: Veena Bynum Hospital Course: Gastroenteritis, mostly secondary to alcohol abuse Acute alcohol withdrawal Alcohol abuse Alcoholic hepatitis, improved Hypomagnesemia, resolved History of depression, with no suicidal ideation. Confirmed with patient Essential hypertension History of osteoarthritis Seizure disorder History of sleep apnea on CPAP Back pain Hospital course This is a pleasant 42 years old male with past medical history of alcohol abuse who presented with signs and symptoms of gastroenteritis-like picture with nausea vomiting and loose bowel movement with slow grade fever when he came in but this resolved for the last 3 days patient has been eating well with good bowel movement no nausea vomiting. And his been afebrile. His white cell count is checked and is normal at 4.4K. Patient also has been treated for alcohol withdrawal and his wish to oral Ativan since yesterday and tolerated that well. Today when I saw the patient he was lying in bed, no shakiness no sweating not anxious. CIWA score checked with the nurse and it was 0. And discussed the case with him and he agrees to go home on tapered dose of Ativan which was provided for him. On admission he has severe hypomagnesemia as low as 1.2. It was replaced and today is 1.7 patient giving extra doses for a few more days. His labs checked irrigated today showing CBC, BMP and liver function tests are unremarkable except for mildly elevated AST. Patient has an appointment with his PCP within one week and he agrees with it and with the appointment Patient was found stable and can be discharged home however he needs follow-up as an outpatient physical exam Gen.: Patient alert awake and oriented X 3, NOT IN DISTRESS CVS: s1-s2, RRR, no murmur CHEST:bilateral CTA, no wheezing or crepitation Abdomen: Soft, no tenderness, no distention, positive bowel sounds Extremities: No leg edema or induration Time spent more than 35 minutes Patient Condition at Discharge: Serious Plan - Discharge Summary Discharge Rx Participant: No New Discharge Prescriptions: New LORazepam [Ativan] 1 mg PO DIRECTED 4 Days #7 tab Continue Albuterol Inhaler [Ventolin Hfa Inhaler] 1 - 2 puff INHALATION RT-Q6H PRN PRN Reason: Shortness Of Breath Gabapentin [Neurontin] 600 mg PO TID ALPRAZolam [Xanax] 1 mg PO BID PRN PRN Reason: Anxiety Thiamine [Vitamin B-1] 100 mg PO BID@1200,1700 #30 tab Fluticasone Nasal Liberty [Flonase Nasal Liberty] 2 spr EA NOSTRIL DAILY Ondansetron Odt [Zofran ODT] 4 mg PO Q8HR PRN #10 tab PRN Reason: Nausea Folic Acid 1 mg PO DAILY@1200 14 Days #14 tab Pantoprazole [Protonix] 40 mg PO AC-BRKFST #15 tablet. Multivitamins, Thera [Multivitamin (formulary)] 1 tab PO DAILY@1200 Magnesium Oxide [Mag-Ox] 400 mg PO BID 5 Days #10 tablet Discontinued chlordiazePOXIDE HCl [Librium] 25 mg PO QID 3 Days #12 capsule chlordiazePOXIDE HCl [Librium] 50 mg PO BID #2 cap Discharge Medication List ALPRAZolam [Xanax] 1 mg PO BID PRN 11/03/17 [History] Albuterol Inhaler [Ventolin Hfa Inhaler] 1 - 2 puff INHALATION RT-Q6H PRN [History] Gabapentin [Neurontin] 600 mg PO TID 11/03/17 [History] Thiamine [Vitamin B-1] 100 mg PO BID@1200,1700 #30 tab 11/06/17 [Rx] Fluticasone Nasal Liberty [Flonase Nasal Liberty] 2 spr EA NOSTRIL DAILY 03/27/18 [ History] Ondansetron Odt [Zofran ODT] 4 mg PO Q8HR PRN #10 tab 05/11/18 [Rx] Folic Acid 1 mg PO DAILY@1200 14 Days #14 tab 05/24/18 [Rx] Pantoprazole [Protonix] 40 mg PO AC-BRKFST #15 tablet. 05/24/18 [Rx] Multivitamins, Thera [Multivitamin (formulary)] 1 tab PO DAILY@1200 06/16/18 [ History] LORazepam [Ativan] 1 mg PO DIRECTED 4 Days #7 tab 06/19/18 [Rx] Magnesium Oxide [Mag-Ox] 400 mg PO BID 5 Days #10 tablet 06/19/18 [Rx] Follow up Appointment(s)/Referral(s): Veena Bynum DO [Primary Care Provider] - 06/25/18 9:00 am (Fiday) Activity/Diet/Wound Care/Special Instructions: Resume previous diet Activity is limited till you see your doctor Try to avoid drinking alcohol especially while taking the benzodiazepine/Ativan Discharge Disposition: HOME SELF-CARE
== END 2018-06-19 18:13 | disposition home or self-care (01) | DRG 897 ==
LOC: EC 23:50 → 3SCARD 06-16 02:05 → 4SSUR 06-17 23:07
PROVIDERS: ADMIT Hospitalist; ATTEND Hospitalist
DX: F10.231 Alcohol dependence with withdrawal delirium (principal); K52.89 Other specified noninfective gastroenteritis and colitis; E83.42 Hypomagnesemia; F32.9 Major depressive disorder, single episode, unspecified; F41.9 Anxiety disorder, unspecified; G40.909 Epilepsy, unspecified, not intractable, without status epilepticus; G47.30 Sleep apnea, unspecified; I10 Essential (primary) hypertension; K21.9 Gastro-esophageal reflux disease without esophagitis; K70.10 Alcoholic hepatitis without ascites; Z80.8 Family history of malignant neoplasm of other organs or systems; Z82.0 Family history of epilepsy and other diseases of the nervous system; Z82.49 Family history of ischemic heart disease and other diseases of the circulatory system; Z87.891 Personal history of nicotine dependence; Z82.61 Family history of arthritis; I83.93 Asymptomatic varicose veins of bilateral lower extremities; Z88.1 Allergy status to other antibiotic agents; Z88.8 Allergy status to other drugs, medicaments and biological substances; Z79.82 Long term (current) use of aspirin; Z79.899 Other long term (current) drug therapy; Z87.01 Personal history of pneumonia (recurrent); M48.00 Spinal stenosis, site unspecified
CPT/HCPCS: 36415; 71046; 80048; 80053; 80076; 82150; 83690; 83735; 85025; 96361; 96374; 96375; 96376; 99285

== ENCOUNTER 2018-06-21 12:15 | Inpatient (IN) | payer OTHER ==
[2018-06-21] MEDS ORDERED: LORazepam 2 MG/ML INJ IV STA ×2 (12:35→13:58)
[2018-06-21] MEDS ORDERED: SODIUM CHLORIDE 0.9% 1,000 ML IV ONE (12:35)
[2018-06-21] MEDS ORDERED: ASPIRIN 81 MG PO STA (12:52)
[2018-06-21] MEDS ORDERED: METOCLOPRAMIDE 5 MG/ML 2 ML VIAL IVP STA (12:52)
[2018-06-21] MEDS ORDERED: NITROGLYCERIN SL TABS 0.4 MG TAB SUBLINGUAL STA ×3 (12:52)
[2018-06-21] MEDS ORDERED: PANTOPRAZOLE 40 MG/10 ML VIAL IVP STA (12:53)
--- NOTE | 2018-06-21 13:13 | ED ---
General Adult HPI - General Chief complaint: Chest Pain Stated complaint: Detox & chest pain Time Seen by Provider: 06/21/18 12:37 Source: patient, EMS, RN notes reviewed Mode of arrival: EMS Limitations: no limitations - History of Present Illness Initial comments: Patient is a pleasant 42-year-old male presenting to the emergency department with concerns regarding his detox and chronic chest discomfort. Patient states he was in the hospital and discharged on Thursday. Patient states he started drinking Thursday and stop drinking last night. Last drink was around 7 PM yesterday. Patient is concerned regarding shaking. Patient denies any confusion or hallucinations. Patient states he does have chest discomfort. Patient states he has had nausea and vomiting. Patient states he has detox dozens of times previously. Patient states he normally does get similar chest discomfort with this. Patient requests pain medicine. - Related Data Home Medications Medication Instructions Recorded Confirmed Multivitamins, Thera [Multivitamin 1 tab PO DAILY 06/16/18 06/21/18 (formulary)] Previous Rx's Medication Instructions Recorded Thiamine [Vitamin B-1] 100 mg PO BID@1200,1700 #30 tab 11/06/17 Pantoprazole [Protonix] 40 mg PO LENARD-KWASIKFST #15 tablet. 05/24/18 Magnesium Oxide [Mag-Ox] 400 mg PO BID 5 Days #10 tablet 06/19/18 Allergies Allergy/AdvReac Type Severity Reaction Status Date / Time Cephalosporins Allergy Severe Anaphylaxis Verified 06/21/18 12:25 diphenhydramine HCl Allergy Severe Anaphylaxis Verified 06/21/18 12:25 [From Benadryl] divalproex sodium Allergy Severe Anaphylaxis Verified 06/21/18 12:25 [From Depakote] ceftriaxone [From Rocephin] Allergy Unknown Verified 06/21/18 12:25 cephalexin [From Keflex] Allergy Unknown Verified 06/21/18 12:25 lisinopril Allergy Unknown Verified 06/21/18 12:25 Review of Systems ROS Statement: Those systems with pertinent positive or pertinent negative responses have been documented in the HPI. ROS Other: All systems not noted in ROS Statement are negative. Constitutional: Denies: fever Eyes: Denies: eye pain ENT: Denies: ear pain Respiratory: Denies: cough Cardiovascular: Reports: chest pain, palpitations Endocrine: Denies: fatigue Gastrointestinal: Reports: nausea, vomiting Genitourinary: Denies: dysuria Musculoskeletal: Denies: back pain Skin: Denies: rash Neurological: Denies: weakness Past Medical History Past Medical History: GERD/Reflux, Hypertension, Osteoarthritis (OA), Pneumonia , Seizure Disorder, Sleep Apnea/CPAP/BIPAP Additional Past Medical History / Comment(s): Alcoholism, ETOH withdrawals, mild alcohol hepatitis, upper GI bleed, gastritis, abdominal pain, hypomagnesemia, past episode of "fainting" and told he had a seizurepossible alcoholic seizures/blackouts, bilateral varicose veins, spinal stenosis with surgery, herniated disc, MILIND no CPAP, hemorrhoids. History of Any Multi-Drug Resistant Organisms: None Reported Past Surgical History: Appendectomy, Back Surgery, Tonsillectomy Additional Past Surgical History / Comment(s): 07/13/17 EGD, 16 LAMINECTOMY, bilateral DISCETOMY L5-S1. Past Anesthesia/Blood Transfusion Reactions: Motion Sickness Past Psychological History: Anxiety, Depression Smoking Status: Former smoker Past Alcohol Use History: Abuse, Daily, Heavy Past Drug Use History: Marijuana - Past Family History Father Family Medical History: Cancer, Dementia Additional Family Medical History / Comment(s): melanoma, parkinsons Mother Family Medical History: Hypertension, Musculoskeletal Disorder, Neurologic Disorder, Osteoarthritis (OA) Additional Family Medical History / Comment(s): . Had some motor neuron disease General Exam Limitations: no limitations General appearance: alert, other (Resting tremor) Head exam: Present: atraumatic Eye exam: Present: normal appearance, PERRL ENT exam: Present: normal oropharynx Neck exam: Present: normal inspection Respiratory exam: Present: normal lung sounds bilaterally Cardiovascular Exam: Present: tachycardia Expanded Peripheral pulses: 2+: Radial (R), Radial (L), Dorsalis Pedis (R), Dorsalis Pedis (L) GI/Abdominal exam: Present: soft. Absent: distended, tenderness, pulsatile mass Extremities exam: Present: normal inspection. Absent: pedal edema, calf tenderness Back exam: Present: normal inspection Neurological exam: Present: alert. Absent: motor sensory deficit Psychiatric exam: Present: normal affect, normal mood Skin exam: Present: normal color Course Vital Signs 06/21/18 06/21/18 06/21/18 12:20 12:40 13:00 Temperature 98.3 F Pulse Rate 113 H 105 H 92 Respiratory 22 16 16 Rate Blood Pressure 213/82 117/67 117/67 O2 Sat by Pulse 98 97 96 Oximetry 06/21/18 06/21/18 13:30 14:30 Temperature Pulse Rate 96 101 H Respiratory 16 20 Rate Blood Pressure 151/86 110/91 O2 Sat by Pulse 98 100 Oximetry - Reevaluation(s) Reevaluation #1: 06/21/18 13:45 EKG #2 shows normal sinus rhythm 93. MT 160. QRS 108. QT 384. QTC 477. Normal axis. Normal QRS. No acute ST change. EKG Findings - EKG Comments: EKG Findings:: Sinus tachycardia 104. MT 160. QRS 84. QT 354. QTC 465. Normal axis. Normal QRS. Nonspecific ST-T. Significant artifact is present. Medical Decision Making - Medical Decision Making Patient reevaluated and somewhat improved. Only mild discomfort at this time. Patient updated on results and plan. Case was discussed in detail with Dr. Ogden, covering for Dr. Mar who will admit. - Lab Data Result diagrams: 06/21/18 12:30 06/21/18 12:30 Lab Results 06/21/18 06/21/18 06/21/18 Range/Units 12:30 12:30 12:30 WBC 6.6 (3.8-10.6) k/uL RBC 4.58 (4.30-5.90) m/uL Hgb 14.3 (13.0-17.5) gm/dL Hct 42.5 (39.0-53.0) % MCV 92.9 (80.0-100.0) fL MCH 31.3 (25.0-35.0) pg MCHC 33.7 (31.0-37.0) g/dL RDW 13.6 (11.5-15.5) % Plt Count 135 L D (150-450) k/uL Neutrophils % 62 % Lymphocytes % 27 % Monocytes % 7 % Eosinophils % 1 % Basophils % 1 % Neutrophils # 4.1 (1.3-7.7) k/uL Lymphocytes # 1.8 (1.0-4.8) k/uL Monocytes # 0.5 (0-1.0) k/uL Eosinophils # 0.1 (0-0.7) k/uL Basophils # 0.0 (0-0.2) k/uL PT (9.0-12.0) sec INR (<1.2) APTT (22.0-30.0) sec Sodium 140 (137-145) mmol/L Potassium 5.0 (3.5-5.1) mmol/L Chloride 98 (98-107) mmol/L Carbon Dioxide 31 H (22-30) mmol/L Anion Gap 11 mmol/L BUN 15 (9-20) mg/dL Creatinine 0.67 (0.66-1.25) mg/dL Est GFR (CKD-EPI)AfAm >90 (>60 ml/min/1.73 sqM) Est GFR (CKD-EPI)NonAf >90 (>60 ml/min/1.73 sqM) Glucose 94 (74-99) mg/dL Calcium 9.3 (8.4-10.2) mg/dL Magnesium 1.1 L (1.6-2.3) mg/dL Total Bilirubin 1.1 (0.2-1.3) mg/dL AST 177 H (17-59) U/L ALT 112 H (21-72) U/L Alkaline Phosphatase 47 (38-126) U/L Total Creatine Kinase 58 (55-170) U/L CK-MB (CK-2) 0.6 (0.0-2.4) ng/mL CK-MB (CK-2) Rel Index 1.0 Troponin I <0.012 (0.000-0.034) ng/mL Total Protein 7.6 (6.3-8.2) g/dL Albumin 4.8 (3.5-5.0) g/dL Amylase 75 (30-110) U/L Lipase 78 (23-300) U/L 06/21/18 Range/Units 12:30 WBC (3.8-10.6) k/uL RBC (4.30-5.90) m/uL Hgb (13.0-17.5) gm/dL Hct (39.0-53.0) % MCV (80.0-100.0) fL MCH (25.0-35.0) pg MCHC (31.0-37.0) g/dL RDW (11.5-15.5) % Plt Count (150-450) k/uL Neutrophils % % Lymphocytes % % Monocytes % % Eosinophils % % Basophils % % Neutrophils # (1.3-7.7) k/uL Lymphocytes # (1.0-4.8) k/uL Monocytes # (0-1.0) k/uL Eosinophils # (0-0.7) k/uL Basophils # (0-0.2) k/uL PT 10.0 (9.0-12.0) sec INR 0.9 (<1.2) APTT 23.7 (22.0-30.0) sec Sodium (137-145) mmol/L Potassium (3.5-5.1) mmol/L Chloride (98-107) mmol/L Carbon Dioxide (22-30) mmol/L Anion Gap mmol/L BUN (9-20) mg/dL Creatinine (0.66-1.25) mg/dL Est GFR (CKD-EPI)AfAm (>60 ml/min/1.73 sqM) Est GFR (CKD-EPI)NonAf (>60 ml/min/1.73 sqM) Glucose (74-99) mg/dL Calcium (8.4-10.2) mg/dL Magnesium (1.6-2.3) mg/dL Total Bilirubin (0.2-1.3) mg/dL AST (17-59) U/L ALT (21-72) U/L Alkaline Phosphatase (38-126) U/L Total Creatine Kinase (55-170) U/L CK-MB (CK-2) (0.0-2.4) ng/mL CK-MB (CK-2) Rel Index Troponin I (0.000-0.034) ng/mL Total Protein (6.3-8.2) g/dL Albumin (3.5-5.0) g/dL Amylase (30-110) U/L Lipase (23-300) U/L - Radiology Data Radiology results: image reviewed (Chest x-ray shows no acute process) Disposition Clinical Impression: Chest pain, Hypomagnesemia, Alcohol withdrawal Disposition: ADMITTED IP TO THIS [facility] Is patient prescribed a controlled substance at d/c from ED?: No Referrals: Veena Mar DO [Primary Care Provider] - 1-2 days Decision Time: 14:52
[2018-06-21 13:18] LABS: Basophils % (A) 1 %; Eosinophils # (A) 0.1 k/uL (0-0.7); Eosinophils % (A) 1 %; HCT 42.5 % (39.0-53.0); HGB 14.3 gm/dL (13.0-17.5); Lymphocytes # (A) 1.8 k/uL (1.0-4.8); Lymphocytes % (A) 27 %; MCH 31.3 pg (25.0-35.0); MCHC 33.7 g/dL (31.0-37.0); MCV 92.9 fL (80.0-100.0); Mean Platelet Volume 7.2; Monocytes # (A) 0.5 k/uL (0-1.0); Monocytes % (A) 7 %; Neutrophils # (A) 4.1 k/uL (1.3-7.7); Neutrophils % (A) 62 %; RBC 4.58 m/uL (4.30-5.90); RDW 13.6 % (11.5-15.5); WBC 6.6 k/uL (3.8-10.6)
[2018-06-21 13:24] LABS: Platelet Count 135 k/uL (150-450)
[2018-06-21 13:30] LABS: INR 0.9 (<1.2); Partial Thromboplastin Time 23.7 sec (22.0-30.0)
--- NOTE | 2018-06-21 13:31 | XR ---
EXAMINATION TYPE: XR chest 2V DATE OF EXAM: 06/21/2018 COMPARISON: Prior chest x-ray from 5 days ago. HISTORY: Chest pain. TECHNIQUE: Frontal and lateral views of the chest are obtained. FINDINGS: There is no focal air space opacity, pleural effusion, or pneumothorax seen. The cardiac silhouette size is within normal limits. Multilevel spurring in the thoracic spine is redemonstrated. IMPRESSION: No acute cardiopulmonary process. No significant change from prior.
[2018-06-21 13:37] LABS: Creatine Kinase 58 U/L (55-170)
[2018-06-21 13:39] LABS: ALT 112 U/L (21-72); AST 177 U/L (17-59); Albumin 4.8 g/dL (3.5-5.0); Alkaline Phosphatase 47 U/L (38-126); Amylase 75 U/L (30-110); Anion Gap 11 mmol/L; Blood Urea Nitrogen 15 mg/dL (9-20); Calcium 9.3 mg/dL (8.4-10.2); Carbon Dioxide 31 mmol/L (22-30); Chloride 98 mmol/L (98-107); Glucose 94 mg/dL (74-99); Lipase 78 U/L (23-300); Magnesium 1.1 mg/dL (1.6-2.3); Sodium 140 mmol/L (137-145); Total Bilirubin 1.1 mg/dL (0.2-1.3); Total Protein 7.6 g/dL (6.3-8.2)
[2018-06-21 13:51] LABS: Creatine Kinase MB 0.6 ng/mL (0.0-2.4); Troponin I <0.012 ng/mL (0.000-0.034)
[2018-06-21] MEDS: MAGNESIUM SULFATE-D5W PMX 1 GM in DEXTROSE/WATER 1 100ML.BAG IVPB SCH ×3 (14:28→17:42)
[2018-06-21] MEDS ORDERED: NITROGLYCERIN SL TABS 0.4 MG TAB SUBLINGUAL PRN (14:52)
[2018-06-21] MEDS ORDERED: LORazepam 2 MG/ML INJ IV PRN (14:55)
[2018-06-21] MEDS ORDERED: THIAMINE 100 MG/ML 2 ML VIAL IM STA (14:55)
[2018-06-21] MEDS: LORazepam 2 MG/ML INJ IV PRN ×2 (17:47→21:04)
[2018-06-21] MEDS: THIAMINE 100 MG TAB PO SCH (17:57)
[2018-06-21] MEDS: NITROGLYCERIN OINT 1 INCH/GM PACKET TOPICAL SCH (18:00)
[2018-06-21] MEDS ORDERED: ONDANSETRON 4 MG/2 ML VIAL IVP PRN (18:27)
[2018-06-21] MEDS: ACETAMINOPHEN TAB 500 MG TAB PO PRN (18:34)
[2018-06-21 18:59] VITALS: BMI 31.6
--- NOTE | 2018-06-21 19:25 | P.HPIM ---
History of Present Illness 42-year-old male was recently discharged from the hospital on Thursday after he was treated for alcohol withdrawal and alcohol related gastritis comes back again with epigastric abdominal discomfort with nausea vomiting moderate severity not associated with lightheadedness shortness of breath appears to have alcoholic gastritis again in ER there was a concern about cardiac chest pain because of which I was requested to admit the patient, cardiology was consulted patient does not have any significant acute ST-T wave changes troponins are not elevated at this time we'll repeat 2 more sets of troponins. Patient already started having tremors. Patient started drinking alcohol again after he was discharged from the hospital drinks about half a gallon of hard liquor. Patient does have alcoholic hepatitis as well. Patient is still willing to quit alcohol and probably need to go back straight alcohol rehabilitation program from here. Patient has multiple hospitalizations in the past for the same problem. Review of Systems REVIEW OF SYSTEMS: CONSTITUTIONAL: No fever, no malaise, no fatigue. HEENT: No recent visual problems or hearing problems. Denied any sore throat. CARDIOVASCULAR: No orthopnea, PND, no palpitations, no syncope. PULMONARY: No shortness of breath, no cough, no hemoptysis. GASTROINTESTINAL: No diarrhea, NEUROLOGICAL: No headaches, no weakness, no numbness. HEMATOLOGICAL: Denies any bleeding or petechiae. GENITOURINARY: Denies any burning micturition, frequency, or urgency. MUSCULOSKELETAL/RHEUMATOLOGICAL: Denies any joint pain, swelling, or any muscle pain. ENDOCRINE: Denies any polyuria or polydipsia. The rest of the 14-point review of systems is negative. Past Medical History Past Medical History: GERD/Reflux, Hypertension, Osteoarthritis (OA), Pneumonia , Seizure Disorder, Sleep Apnea/CPAP/BIPAP Additional Past Medical History / Comment(s): Alcoholism, ETOH withdrawals, mild alcohol hepatitis, upper GI bleed, gastritis, abdominal pain, hypomagnesemia, past episode of "fainting" and told he had a seizurepossible alcoholic seizures/blackouts, bilateral varicose veins, spinal stenosis with surgery, herniated disc, MILIND no CPAP, hemorrhoids. History of Any Multi-Drug Resistant Organisms: None Reported Past Surgical History: Appendectomy, Back Surgery, Tonsillectomy Additional Past Surgical History / Comment(s): 07/13/17 EGD, 09-20-15 LAMINECTOMY, bilateral DISCETOMY L5-S1. Past Anesthesia/Blood Transfusion Reactions: Motion Sickness Past Psychological History: Anxiety, Depression Additional Psychological History / Comment(s): pt lives alone in house, no pets. Pt uses no assistive device. He drives. Pt is an alcoholic. He has been in rehab for his alcoholism in the past. 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 - Past Family History Father Family Medical History: Cancer, Dementia Additional Family Medical History / Comment(s): melanoma, parkinsons Mother Family Medical History: Hypertension, Musculoskeletal Disorder, Neurologic Disorder, Osteoarthritis (OA) Additional Family Medical History / Comment(s): . Had some motor neuron disease Medications and Allergies Home Medications Medication Instructions Recorded Confirmed Type Thiamine [Vitamin B-1] 100 mg PO BID@1200,1700 #30 tab 11/06/17 06/21/18 Rx Pantoprazole [Protonix] 40 mg PO AC-BRKFST #15 tablet. 05/24/18 06/21/18 Rx Multivitamins, Thera [Multivitamin 1 tab PO DAILY 06/16/18 06/21/18 History (formulary)] Magnesium Oxide [Mag-Ox] 400 mg PO BID 5 Days #10 tablet 06/19/18 06/21/18 Rx Allergies Allergy/AdvReac Type Severity Reaction Status Date / Time Cephalosporins Allergy Severe Anaphylaxis Verified 06/21/18 12:25 diphenhydramine HCl Allergy Severe Anaphylaxis Verified 06/21/18 12:25 [From Benadryl] divalproex sodium Allergy Severe Anaphylaxis Verified 06/21/18 12:25 [From Depakote] ceftriaxone [From Rocephin] Allergy Unknown Verified 06/21/18 12:25 cephalexin [From Keflex] Allergy Unknown Verified 06/21/18 12:25 lisinopril Allergy Unknown Verified 06/21/18 12:25 Physical Exam Vitals: Vital Signs Temp Pulse Pulse Resp BP BP Pulse Ox 06/21/18 19:03 97 F L 81 16 124/79 97 06/21/18 17:50 85 18 122/75 95 06/21/18 14:30 101 H 20 110/91 100 06/21/18 13:30 96 16 151/86 98 06/21/18 13:00 92 16 117/67 96 06/21/18 12:40 105 H 16 117/67 97 06/21/18 12:20 98.3 F 113 H 22 213/82 98 Intake and Output 06/21/18 06/21/18 06/21/18 06:59 14:59 22:59 Intake Total 90 Balance 90 Intake: Oral 90 Other: Voiding Method Toilet Weight 108.862 kg 108.862 kg PHYSICAL EXAMINATION: GENERAL: The patient is alert and oriented x3, not in any acute distress. Obese. Patient does have tremors HEENT: Pupils are round and equally reacting to light. EOMI. No scleral icterus. No conjunctival pallor. Normocephalic, atraumatic. No pharyngeal erythema. No thyromegaly. CARDIOVASCULAR: S1 and S2 present. No murmurs, rubs, or gallops. PULMONARY: Chest is clear to auscultation, no wheezing or crackles. ABDOMEN: Soft, nontender, nondistended, normoactive bowel sounds. No palpable organomegaly. MUSCULOSKELETAL: No joint swelling or deformity. EXTREMITIES: No cyanosis, clubbing, or pedal edema. NEUROLOGICAL: Gross neurological examination did not reveal any focal deficits. SKIN: No rashes. Results CBC & Chem 7: 06/21/18 12:30 06/21/18 12:30 Labs: Abnormal Lab Results - Last 24 Hours (Table) 06/21/18 06/21/18 Range/Units 12:30 12:30 Plt Count 135 L D (150-450) k/uL Carbon Dioxide 31 H (22-30) mmol/L Magnesium 1.1 L (1.6-2.3) mg/dL AST 177 H (17-59) U/L ALT 112 H (21-72) U/L Thrombosis Risk Factor Assmnt - Choose All That Apply Each Factor Represents 1 point: Age 41-60 years Thrombosis Risk Factor Assessment Total Risk Factor Score: 1 Thrombosis Risk Factor Assessment Level: Low Risk Assessment and Plan Plan: -Chest pain: Appears to be secondary to alcoholic gastritis we'll rule out a concurrent syndromes repeat 2 more sets of troponins and EKGs and patient will be started on Protonix cardiology will evaluate the patient -Alcoholic gastritis -Alcoholic hepatitis will repeat liver enzymes tomorrow. -Alcohol abuse: Counseling was provided. Social work will be consulted -Alcohol withdrawal and patient will be started on Ativan CIWA protocol -Hypomagnesemia secondary to alcoholism which was supplemented.
[2018-06-21 19:29] LABS: Creatine Kinase 51 U/L (55-170)
[2018-06-21 19:40] LABS: Creatine Kinase MB 0.4 ng/mL (0.0-2.4); Troponin I <0.012 ng/mL (0.000-0.034)
[2018-06-21] MEDS: PANTOPRAZOLE 40 MG/10 ML VIAL IVP SCH (21:04)
[2018-06-22] MEDS: NITROGLYCERIN OINT 1 INCH/GM PACKET TOPICAL SCH ×4 (00:03→16:11)
[2018-06-22] MEDS: MAGNESIUM SULFATE-D5W PMX 1 GM in DEXTROSE/WATER 1 100ML.BAG IVPB SCH (00:03)
[2018-06-22] MEDS: LORazepam 2 MG/ML INJ IV PRN ×8 (00:03→22:18)
[2018-06-22 01:27] LABS: Creatine Kinase 51 U/L (55-170)
[2018-06-22 01:41] LABS: Creatine Kinase MB 0.4 ng/mL (0.0-2.4); Troponin I <0.012 ng/mL (0.000-0.034)
[2018-06-22] MEDS: ACETAMINOPHEN TAB 500 MG TAB PO PRN ×2 (05:53→14:25)
[2018-06-22 08:49] LABS: ALT 111 U/L (21-72); AST 165 U/L (17-59); Albumin 4.3 g/dL (3.5-5.0); Alkaline Phosphatase 52 U/L (38-126); Anion Gap 11 mmol/L; Blood Urea Nitrogen 13 mg/dL (9-20); Calcium 9.2 mg/dL (8.4-10.2); Carbon Dioxide 24 mmol/L (22-30); Chloride 102 mmol/L (98-107); Cholesterol 155 mg/dL (<200); Glucose 95 mg/dL (74-99); HDL Cholesterol 73 mg/dL (40-60); Magnesium 1.8 mg/dL (1.6-2.3); Potassium 4.4 mmol/L (3.5-5.1); Sodium 137 mmol/L (137-145); Total Bilirubin 1.5 mg/dL (0.2-1.3); Total Protein 6.9 g/dL (6.3-8.2)
[2018-06-22 09:21] LABS: LDL Cholesterol,Calculated 58 mg/dL (0-99); Triglycerides 120 mg/dL (<150)
[2018-06-22] MEDS: ASPIRIN 325 MG TAB PO SCH (09:27)
[2018-06-22] MEDS: PANTOPRAZOLE 40 MG/10 ML VIAL IVP SCH ×2 (09:28→21:19)
--- NOTE | 2018-06-22 10:56 | CONS ---
CONSULTATION CHIEF COMPLAINT: Chest pain. Nick is a 42-year-old gentleman with history of EtOH abuse, who presented to hospital with alcohol withdrawal and complaint of chest pain for which Cardiology had been consulted. He complains of chest discomfort that is sharp, precordial, and related to exertion and associated with diaphoresis without definite radiation to neck, arm or back. His liver enzymes are elevated. EKG shows normal sinus rhythm without significant ST-T wave changes. I believe his chest discomfort is atypical noncardiac and his primary problem is alcohol withdrawal. PAST MEDICAL HISTORY: Past medical history is significant for ETOH abuse. MEDICATIONS: Medications include thiamine, Protonix, and magnesium. ALLERGIES: Allergies include KEFLEX, DEPAKOTE, ROCEPHIN, LISINOPRIL. FAMILY HISTORY: Family history is negative for premature coronary artery disease. SOCIAL HISTORY: Social history is negative for smoking, EtOH abuse, or drug abuse. REVIEW OF SYSTEMS: HEENT is unremarkable. CARDIAC: As described above. RESPIRATORY: As described above. GI: Negative. GENITOURINARY: Negative. ALLERGY/IMMUNOLOGY: Negative. MUSCULOSKELETAL: Negative. ENDOCRINE: Negative. HEMATOLOGIC: Negative. DERMATOLOGICAL: Negative. CONSTITUTIONAL: Significant for alcohol withdrawal. Rest of the system review is not relevant. PHYSICAL EXAMINATION: On exam, patient is comfortable at rest. Vital signs are stable. There is no jugular venous distention. Carotid upstroke is normal. There is no bruit. Chest exam reveals good air entry bilaterally. Heart exam reveals first and second heart sounds. No gallop. No murmur. Abdomen is soft, nontender. Examination of extremities did not reveal edema. Peripheral pulses are felt. ASSESSMENT: 1. Precordial chest pain, atypical. 2. EtOH abuse with alcohol withdrawal. PLAN: I will obtain a 2D echo to assess LV function and wall motion. If this is negative and once his alcohol withdrawal issues resolve, he may be discharged home and he can have an outpatient stress test. I advised him on risk factor modification. MMODL / IJN: [id number] /
[2018-06-22] MEDS: THIAMINE 100 MG TAB PO SCH ×2 (12:08→17:27)
[2018-06-22] MEDS: MULTIVITAMINS, THERA 1 EACH TAB PO SCH (12:08)
--- NOTE | 2018-06-22 13:23 | P.PN ---
Subjective 42-year-old that came in with retrosternal pain seconded alcoholic gastritis was evaluated by cardiology rule out acute coronary syndromes. Patient is still having withdrawals. I had extensive discussion with the patient I gave him options of going home and drinking again are going to [place] directly and patient is willing to go to [place] directly. Constitutional: Denied any fatigue denied any fever. Cardio vascular: denied any chest pain, palpitations Gastrointestinal denied any nausea vomiting Pulmonary: Denied any shortness of breath cough Neurologic denied any new focal deficits All inpatient medications were reviewed and appropriate changes in these medications as dictated in the interval history and assessment and plan. Objective - Vital Signs Vital signs: Vital Signs Temp 97 F L 06/22/18 00:00 Pulse 89 06/22/18 12:00 Resp 17 06/22/18 12:00 BP 139/92 06/22/18 11:37 Pulse Ox 99 06/22/18 11:37 Intake & Output 06/21/18 06/22/18 06/22/18 18:59 06:59 18:59 Intake Total 90 100 Balance 90 100 Weight 108.862 kg Intake: Oral 90 100 Other: Voiding Method Toilet Toilet - Exam PHYSICAL EXAMINATION: GENERAL: The patient is alert and oriented x3, not in any acute distress. Obese. Patient does have tremors HEENT: Pupils are round and equally reacting to light. EOMI. No scleral icterus. No conjunctival pallor. Normocephalic, atraumatic. No pharyngeal erythema. No thyromegaly. CARDIOVASCULAR: S1 and S2 present. No murmurs, rubs, or gallops. PULMONARY: Chest is clear to auscultation, no wheezing or crackles. ABDOMEN: Soft, nontender, nondistended, normoactive bowel sounds. No palpable organomegaly. MUSCULOSKELETAL: No joint swelling or deformity. EXTREMITIES: No cyanosis, clubbing, or pedal edema. NEUROLOGICAL: Gross neurological examination did not reveal any focal deficits. SKIN: No rashes. - Labs CBC & Chem 7: 06/21/18 12:30 06/22/18 07:57 Labs: Abnormal Lab Results - Last 24 Hours (Table) 06/21/18 06/21/18 06/21/18 Range/Units 12:30 12:30 18:47 Plt Count 135 L D (150-450) k/uL Carbon Dioxide 31 H (22-30) mmol/L Magnesium 1.1 L (1.6-2.3) mg/dL Total Bilirubin (0.2-1.3) mg/dL AST 177 H (17-59) U/L ALT 112 H (21-72) U/L Total Creatine Kinase 51 L (55-170) U/L HDL Cholesterol (40-60) mg/dL 06/22/18 06/22/18 Range/Units 00:41 07:57 Plt Count (150-450) k/uL Carbon Dioxide (22-30) mmol/L Magnesium (1.6-2.3) mg/dL Total Bilirubin 1.5 H (0.2-1.3) mg/dL AST 165 H (17-59) U/L ALT 111 H (21-72) U/L Total Creatine Kinase 51 L (55-170) U/L HDL Cholesterol 73 H (40-60) mg/dL Assessment and Plan Plan: -Chest pain: Secondary to alcoholic gastritis continue with Protonix. Patient was evaluated by cardiology patient's chest pain is noncardiac. -Alcoholic gastritis -Alcoholic hepatitis will repeat liver enzymes tomorrow. -Alcohol abuse: Counseling was provided. Social work will be consulted -Alcohol withdrawal and patient will be started on Ativan CIWA protocol -Hypomagnesemia secondary to alcoholism which was supplemented.
[2018-06-23] MEDS ORDERED: LORazepam Vial 2 MG/ML VIAL ONE
[2018-06-23] MEDS ORDERED: ACETAMINOPHEN TAB 500 MG TAB ONE
[2018-06-23] MEDS ORDERED: NITROGLYCERIN OINT 1 INCH/GM PACKET TOPICAL ONE
[2018-06-23] MEDS: LORazepam 2 MG/ML INJ IV PRN ×6 (04:53→21:56)
[2018-06-23] MEDS: NITROGLYCERIN OINT 1 INCH/GM PACKET TOPICAL SCH ×6 (05:24→23:50)
[2018-06-23] MEDS: MULTIVITAMINS, THERA 1 EACH TAB PO SCH (08:21)
[2018-06-23] MEDS: THIAMINE 100 MG TAB PO SCH ×2 (08:21→17:27)
[2018-06-23] MEDS: PANTOPRAZOLE 40 MG/10 ML VIAL IVP SCH (08:21)
[2018-06-23] MEDS: ASPIRIN 325 MG TAB PO SCH (08:27)
[2018-06-23] MEDS: ACETAMINOPHEN TAB 500 MG TAB PO PRN ×2 (11:39→22:05)
[2018-06-23] MEDS: PANTOPRAZOLE 40 MG TABLET PO SCH (17:27)
--- NOTE | 2018-06-23 19:11 | ECHOF ---
Referral Reason: MEASUREMENTS -------- HEIGHT: 185.4 cm WEIGHT: 149.2 kg BP: 119/72 RVIDd: 3.0 cm (< 3.3) IVSd: 1.2 cm (0.6 - 1.1) LVIDd: 5.2 cm (3.9 - 5.3) LVPWd: 1.2 cm (0.6 - 1.1) IVSs: 1.4 cm LVIDs: 4.0 cm LVPWs: 1.4 cm LAESV Index (A-L): 16.93 ml/m Ao Diam: 3.0 cm (2.0 - 3.7) AV Cusp: 2.0 cm (1.5 - 2.6) LA Diam: 3.2 cm (2.7 - 3.8) MV EXCURSION: 23.948 mm (> 18.000) MV EF SLOPE: 135 mm/s (70 - 150) EPSS: 1.0 cm MV E Behzad: 0.71 m/s MV DecT: 179 ms MV A Behzad: 0.50 m/s MV E/A Ratio: 1.43 RAP: 5.00 mmHg RVSP: 11.13 mmHg FINDINGS -------- Sinus rhythm. This was a technically adequate study. The left ventricular size is normal. There is mild concentric left ventricular hypertrophy. Overa ll left ventricular systolic function is low-normal with, an EF between 50 - 55 %. The right ventricle is normal in size and function. Normal LA size by volume 22+/-6 ml/m2. The right atrium is normal in size. The aortic valve is trileaflet, and appears structurally normal. No aortic stenosis or regurgitation. The mitral valve leaflets are mildly thickened. There is trace to mild mitral regurgitation. Trace tricuspid regurgitation present. Right ventricular systolic pressure is normal at < 35 mmHg. There is no evidence of pulmonary hypertension. Trace/mild (physiologic) pulmonic regurgitation. The aortic root size is normal. Normal inferior vena cava with normal inspiratory collapse consistent with estimated right atrial pre ssure of 5 mmHg. There is no pericardial effusion. CONCLUSIONS -------- 1. Sinus rhythm. 2. This was a technically adequate study. 3. The left ventricular size is normal. 4. There is mild concentric left ventricular hypertrophy. 5. Normal LA size by volume 22+/-6 ml/m2. 6. The aortic valve is trileaflet, and appears structurally normal. No aortic stenosis or regurgitati on. 7. The mitral valve leaflets are mildly thickened. 8. There is trace to mild mitral regurgitation. 9. Trace tricuspid regurgitation present. 10. Right ventricular systolic pressure is normal at < 35 mmHg. 11. There is no evidence of pulmonary hypertension. 12. Trace/mild (physiologic) pulmonic regurgitation. 13. The aortic root size is normal. 14. There is no pericardial effusion. LAVATORY ATTENDANT: Xavier Calle RDCS
[2018-06-23 23:17] VITALS: RESP 16
[2018-06-24] MEDS: LORazepam 2 MG/ML INJ IV PRN ×2 (01:58→07:55)
[2018-06-24] MEDS: NITROGLYCERIN OINT 1 INCH/GM PACKET TOPICAL SCH ×3 (06:02→17:32)
[2018-06-24] MEDS: PANTOPRAZOLE 40 MG TABLET PO SCH ×2 (07:54→17:32)
[2018-06-24] MEDS: MULTIVITAMINS, THERA 1 EACH TAB PO SCH (07:54)
[2018-06-24] MEDS: THIAMINE 100 MG TAB PO SCH ×2 (07:55→17:30)
[2018-06-24] MEDS: ASPIRIN 325 MG TAB PO SCH (07:56)
[2018-06-24 07:59] VITALS: BP 127/87; PULSE 63; TEMP 98
[2018-06-24] MEDS ORDERED: Magnesium Replacement Protocol 1 EACH MISC MISCELLANE PRN ×2 (13:14→15:06)
[2018-06-24] MEDS: ACETAMINOPHEN TAB 500 MG TAB PO PRN (14:32)
[2018-06-24] MEDS ORDERED: LORazepam 1 MG TAB PO STA (15:06)
[2018-06-24] MEDS: MAGNESIUM SULFATE-D5W PMX 1 GM in DEXTROSE/WATER 1 100ML.BAG IVPB SCH ×3 (15:36→17:31)
--- NOTE | 2018-06-24 19:38 | P.PN ---
Subjective Progress Note Date: 06/23/18 Progress note being dictated for Dr. Ogden. Interval history: This is a 42-year-old that came in with retrosternal pain seconded alcoholic gastritis was evaluated by cardiology rule out acute coronary syndromes. Patient is still having withdrawals. I had extensive discussion with the patient I gave him options of going home and drinking again are going to [place] directly and patient is willing to go to [place] directly. 06/23/2018 maintained on CIWA scale. Requiring Ativan every 2 hours. Active Dts. Denies chest pain, palpitations or shortness of breath. Denies nausea or vomiting. Objective - Vital Signs Vital signs: Vital Signs Temp 98.6 F 06/23/18 14:38 Pulse 89 06/23/18 15:33 Resp 18 06/23/18 15:33 BP 108/67 06/23/18 14:38 Pulse Ox 97 06/23/18 14:38 Intake & Output 06/23/18 06/23/18 06/24/18 06:59 18:59 06:59 Weight 149.374 kg 108.912 kg Other: Voiding Method Toilet Toilet # Voids 2 3 - Exam PHYSICAL EXAM: VITAL SIGNS: [As above] GENERAL: Sitting up in bed, active DTs/tremors HEENT: Conjunctivae normal. eyes normal. No scleral icterus.No conjunctival pallor. NECK: No JVD. No thyroid enlargement. No thyromegaly, No LNs CARDIOVASCULAR: S1, S2 present. No murmur, rub or gallop RESPIRATION: Breath sounds diminished in the bases. No rhonchi or crackles. No wheezing ABDOMEN: Soft, nontender . No guarding. no masses palpable. Bowel sounds heard. LEGS: No edema. no swelling PSYCHIATRY: Alert and oriented -3, mood and affect normal. NERVOUS SYSTEM: Cranial N 2-12 grossly normal. Moves all 4 limbs. Diffuse weakness No focal deficits. SKIN: No rashes - Labs CBC & Chem 7: 06/21/18 12:30 06/22/18 07:57 Assessment and Plan Assessment: -Chest pain: Secondary to alcoholic gastritis.Evaluated by cardiology patient's chest pain is noncardiac. -Alcoholic gastritis -Alcoholic hepatitis, slowly improving. -Alcohol abuse: Counseling provided. -Alcohol withdrawal -Hypomagnesemia secondary to alcoholism. Plan: Continue current medication regime ,monitoring and symptomatic treatment. Maintain CIWA Protocol. Close monitoring of electrolytes with repeat labs ordered for a.m. Increase ambulation as tolerated. Discharge planning in progress for tomorrow pending improvement with DTs The impression and plan of care has been dictated as directed. : I performed a history and examination of this patient, discussed the same with the dictator. I agree with the dictator's note ,documented as a scribe. Any additional findings or plans will be noted.
--- NOTE | 2018-06-24 19:46 | P.DS ---
Providers Date of admission: 06/21/18 15:13 Expected date of discharge: 06/24/18 Attending physician: Hank Ogden Final Diagnoses: -Chest pain: Secondary to alcoholic gastritis.Evaluated by cardiology patient's chest pain is noncardiac. -Alcoholic gastritis -Alcoholic hepatitis, slowly improving. -Alcohol abuse: Counseling provided. -Alcohol withdrawal -Hypomagnesemia secondary to alcoholism. Hospital course:This is a 42-year-old that came in with retrosternal pain seconded alcoholic gastritis was evaluated by cardiology rule out acute coronary syndromes. Maintained on CIWA protocol. Significant clinical improvement. Extensive discussion with the patient including options of going home and drinking again are going to [place] directly. Patient states is going to [facility] [place]. Patient is being discharged in stable condition with guarded prognosis. EXAM: V GENERAL: Alert and oriented 3, no acute distress, no DTs CARDIOVASCULAR: S1, S2 present. No murmur, rub or gallop RESPIRATION: Breath sounds diminished in the bases. No rhonchi or crackles. No wheezing ABDOMEN: Soft, nontender . No guarding. no masses palpable. Bowel sounds heard. NERVOUS SYSTEM: No focal deficits. The impression and plan of care has been dictated as directed. Dr.: I performed a history and examination of this patient, discussed the same with the dictator. I agree with the dictator's note ,documented as a scribe. Any additional findings or plans will be noted. Time taken: 35 minutes Consults: 06/21/18 14:52 Consult Physician Urgent Consulting Provider: Roshan Alexander Consult Reason/Comments: cp Do you want consulting provider notified?: Yes Primary care physician: Veena Bynum Plan - Discharge Summary Discharge Rx Participant: No New Discharge Prescriptions: New Folic Acid 1 mg PO DAILY #30 tablet Continue Thiamine [Vitamin B-1] 100 mg PO BID@1200,1700 #30 tab Multivitamins, Thera [Multivitamin (formulary)] 1 tab PO DAILY Magnesium Oxide [Mag-Ox] 400 mg PO BID 5 Days #10 tablet Changed Pantoprazole [Protonix] 40 mg PO BID #60 tablet.dr Discharge Medication List Thiamine [Vitamin B-1] 100 mg PO BID@1200,1700 #30 tab 11/06/17 [Rx] Multivitamins, Thera [Multivitamin (formulary)] 1 tab PO DAILY 06/16/18 [History ] Magnesium Oxide [Mag-Ox] 400 mg PO BID 5 Days #10 tablet 06/19/18 [Rx] Folic Acid 1 mg PO DAILY #30 tablet 06/24/18 [Rx] Pantoprazole [Protonix] 40 mg PO BID #60 tablet. 06/24/18 [Rx] Follow up Appointment(s)/Referral(s): Veena Bynum DO [Primary Care Provider] - 06/28/18 2:40 pm Roshan Alexander MD [STAFF PHYSICIAN] - 07/08/18 8:30 am Ambulatory/Diagnostic Orders: Complete Blood Count w/diff [LAB.AMB] Time Frame: 3 Days, Location: None Selected Patient Instructions/Handouts: Abuse of Alcohol (DC) Activity/Diet/Wound Care/Special Instructions: Activity as tolerated. NO alcohol use, references provided. [facility] in [place], [place] as outpatient, call to rearrange.
== END 2018-06-24 19:57 | disposition home or self-care (01) | DRG 392 ==
LOC: EC 12:15 → 3SCARD 15:13 → 4MS4W 06-22 17:51
PROVIDERS: ADMIT Internal Medicine; ATTEND Internal Medicine
DX: K29.20 Alcoholic gastritis without bleeding (principal); F10.231 Alcohol dependence with withdrawal delirium; K70.10 Alcoholic hepatitis without ascites; E83.42 Hypomagnesemia; F32.9 Major depressive disorder, single episode, unspecified; F41.9 Anxiety disorder, unspecified; G40.909 Epilepsy, unspecified, not intractable, without status epilepticus; G47.33 Obstructive sleep apnea (adult) (pediatric); I10 Essential (primary) hypertension; K21.9 Gastro-esophageal reflux disease without esophagitis; Z80.8 Family history of malignant neoplasm of other organs or systems; Z82.0 Family history of epilepsy and other diseases of the nervous system; Z82.49 Family history of ischemic heart disease and other diseases of the circulatory system; Z87.891 Personal history of nicotine dependence; Z87.01 Personal history of pneumonia (recurrent); M48.00 Spinal stenosis, site unspecified; I83.93 Asymptomatic varicose veins of bilateral lower extremities; M19.90 Unspecified osteoarthritis, unspecified site; Z88.1 Allergy status to other antibiotic agents; Z88.8 Allergy status to other drugs, medicaments and biological substances; Z60.2 Problems related to living alone; Z82.61 Family history of arthritis; Z71.41 Alcohol abuse counseling and surveillance of alcoholic
CPT/HCPCS: 36415; 71046; 80053; 80061; 80320; 82150; 82550; 82553; 83690; 83735; 84484; 85025; 85610; 85730; 93005; 93306; 96361; 96365; 96366; 96372; 96375; 96376; 99285

== ENCOUNTER 2018-06-28 01:55 | Emergency (ER) | payer OTHER ==
[2018-06-28] MEDS ORDERED: LORazepam 2 MG/ML INJ IV PRN ×2 (02:24)
[2018-06-28] MEDS ORDERED: THIAMINE 100 MG/ML 2 ML VIAL IM STA (02:24)
[2018-06-28] MEDS ORDERED: SODIUM CHLORIDE 0.9% 1,000 ML IV ONE (02:33)
[2018-06-28] MEDS: LORazepam 2 MG/ML INJ IV PRN ×2 (02:34→03:48)
--- NOTE | 2018-06-28 02:34 | ED ---
Alcohol HPI - General Chief Complaint: Alcohol Stated Complaint: Alcohol Withrdrawl, Vomiting Time Seen by Provider: 06/28/18 02:16 Source: patient Mode of arrival: ambulatory Limitations: no limitations - History of Present Illness Initial Comments: 42-year-old male patient with past medical history significant for chronic daily alcohol use presents to the emergency department today for evaluation of alcohol withdrawal. Patient believes it was Thursday or Thursday when he last had a drink. Patient states he was discharged from the hospital on and was instructed to follow-up with rehab over the weekend but he did not do so. Patient states he started drinking again. During the choices vodka. Patient states currently he is having withdrawal symptoms which include feeling shaky, headache, light sensitivity, anxiety, and paresthesias. States he is also nauseated and has been vomiting. Patient states he has had withdrawal seizures in the past but denies any seizure activity recently. Patient denies any recent rash, fever, chills, shortness breath, chest pain, abdominal pain, diarrhea, constipation, back pain, dizziness, weakness, hematuria, dysuria, urinary urgency, urinary frequency, or any other complaints. - Related Data Home Medications Medication Instructions Recorded Confirmed Multivitamins, Thera [Multivitamin 1 tab PO DAILY 06/16/18 06/21/18 (formulary)] Previous Rx's Medication Instructions Recorded Thiamine [Vitamin B-1] 100 mg PO BID@1200,1700 #30 tab 11/06/17 Magnesium Oxide [Mag-Ox] 400 mg PO BID 5 Days #10 tablet 06/19/18 Folic Acid 1 mg PO DAILY #30 tablet 06/24/18 Pantoprazole [Protonix] 40 mg PO BID #60 tablet. 06/24/18 LORazepam [Ativan] 1 mg PO TID 3 Days #9 tab 06/28/18 Ondansetron [Zofran ODT] 4 mg PO Q8HR PRN #10 tab 06/28/18 chlordiazePOXIDE HCl [Librium] 50 mg PO DIRECTED 3 Days #12 06/28/18 capsule Allergies Allergy/AdvReac Type Severity Reaction Status Date / Time Cephalosporins Allergy Severe Anaphylaxis Verified 06/28/18 02:10 diphenhydramine HCl Allergy Severe Anaphylaxis Verified 06/28/18 02:10 [From Benadryl] divalproex sodium Allergy Severe Anaphylaxis Verified 06/28/18 02:10 [From Depakote] ceftriaxone [From Rocephin] Allergy Unknown Verified 06/28/18 02:10 cephalexin [From Keflex] Allergy Unknown Verified 06/28/18 02:10 lisinopril Allergy Unknown Verified 06/28/18 02:10 Review of Systems ROS Statement: Those systems with pertinent positive or pertinent negative responses have been documented in the HPI. ROS Other: All systems not noted in ROS Statement are negative. Past Medical History Past Medical History: GERD/Reflux, Hypertension, Osteoarthritis (OA), Pneumonia , Seizure Disorder, Sleep Apnea/CPAP/BIPAP Additional Past Medical History / Comment(s): Alcoholism, ETOH withdrawals, mild alcohol hepatitis, upper GI bleed, gastritis, abdominal pain, hypomagnesemia, past episode of "fainting" and told he had a seizurepossible alcoholic seizures/blackouts, bilateral varicose veins, spinal stenosis with surgery, herniated disc, MILIND no CPAP, hemorrhoids. History of Any Multi-Drug Resistant Organisms: None Reported Past Surgical History: Appendectomy, Back Surgery, Tonsillectomy Additional Past Surgical History / Comment(s): 07/13/17 EGD, 4--16 LAMINECTOMY, bilateral DISCETOMY L5-S1. Past Anesthesia/Blood Transfusion Reactions: Motion Sickness Past Psychological History: Anxiety, Depression Smoking Status: Former smoker Past Alcohol Use History: Abuse, Daily, Heavy Past Drug Use History: Marijuana - Past Family History Father Family Medical History: Cancer, Dementia Additional Family Medical History / Comment(s): melanoma, parkinsons Mother Family Medical History: Hypertension, Musculoskeletal Disorder, Neurologic Disorder, Osteoarthritis (OA) Additional Family Medical History / Comment(s): . Had some motor neuron disease General Exam Limitations: no limitations General appearance: alert, in no apparent distress, other (This is a well- developed, well-nourished adult male patient in mild distress related to alcohol withdrawal. Vital signs upon presentation are temperature 97.0F, pulse 128, respirations 20, blood pressure 174/98, pulse ox 100% on room air.) Eye exam: Present: normal appearance, PERRL, EOMI. Absent: scleral icterus, conjunctival injection, periorbital swelling ENT exam: Present: normal exam, normal oropharynx, mucous membranes moist Neck exam: Present: normal inspection. Absent: tenderness, meningismus, lymphadenopathy Respiratory exam: Present: normal lung sounds bilaterally. Absent: respiratory distress, wheezes, rales, rhonchi, stridor Cardiovascular Exam: Present: normal rhythm, tachycardia, normal heart sounds. Absent: systolic murmur, diastolic murmur, rubs, gallop, clicks GI/Abdominal exam: Present: soft, normal bowel sounds. Absent: distended, tenderness, guarding, rebound, rigid Neurological exam: Present: alert, oriented X3, CN II-XII intact, other ( Patient has resting tremor) Psychiatric exam: Present: normal affect, normal mood Skin exam: Present: warm, dry, intact, normal color. Absent: rash Course Vital Signs 06/28/18 06/28/18 01:59 03:44 Temperature 97.0 F L Pulse Rate 128 H 90 Respiratory 20 19 Rate Blood Pressure 174/98 135/71 O2 Sat by Pulse 100 97 Oximetry Medical Decision Making - Medical Decision Making 42-year-old male patient presented to the emergency department feeling that he was withdrawing from alcohol. Patient does report drinking one to two fifths of vodka on a daily basis. Physical examination did reveal a resting tremor. Abdomen is soft and nontender. Lungs clear to auscultation. Labs reviewed and did reveal decreased magnesium level. We did replace is orally. Patient was given 2 doses of Ativan in the department. Upon reevaluation states he is feeling better. Patient does have a plan to go to rehab. Be discharged home with medications to manage withdrawal symptoms until his admission. He does have the phone number for this facility. He is instructed to follow-up with his primary care physician for recheck in 1-2 days. Return parameters were discussed in detail. He verbalizes understanding and agrees with this plan. - Lab Data Result diagrams: 06/28/18 02:25 06/28/18 02:25 Lab Results 06/28/18 06/28/18 Range/Units 02:25 02:25 WBC 9.8 (3.8-10.6) k/uL RBC 4.40 (4.30-5.90) m/uL Hgb 13.5 (13.0-17.5) gm/dL Hct 40.7 (39.0-53.0) % MCV 92.4 (80.0-100.0) fL MCH 30.6 (25.0-35.0) pg MCHC 33.1 (31.0-37.0) g/dL RDW 13.6 (11.5-15.5) % Plt Count 332 D (150-450) k/uL Neutrophils % 62 % Lymphocytes % 27 % Monocytes % 8 % Eosinophils % 1 % Basophils % 0 % Neutrophils # 6.1 (1.3-7.7) k/uL Lymphocytes # 2.7 (1.0-4.8) k/uL Monocytes # 0.8 (0-1.0) k/uL Eosinophils # 0.1 (0-0.7) k/uL Basophils # 0.0 (0-0.2) k/uL Sodium 137 (137-145) mmol/L Potassium 4.8 (3.5-5.1) mmol/L Chloride 100 (98-107) mmol/L Carbon Dioxide 25 (22-30) mmol/L Anion Gap 12 mmol/L BUN 14 (9-20) mg/dL Creatinine 0.63 L (0.66-1.25) mg/dL Est GFR (CKD-EPI)AfAm >90 (>60 ml/min/1.73 sqM) Est GFR (CKD-EPI)NonAf >90 (>60 ml/min/1.73 sqM) Glucose 97 (74-99) mg/dL Calcium 8.7 (8.4-10.2) mg/dL Phosphorus 2.7 (2.5-4.5) mg/dL Magnesium 1.4 L (1.6-2.3) mg/dL Total Bilirubin 1.5 H (0.2-1.3) mg/dL AST 102 H (17-59) U/L ALT 66 (21-72) U/L Alkaline Phosphatase 41 (38-126) U/L Total Protein 7.4 (6.3-8.2) g/dL Albumin 4.7 (3.5-5.0) g/dL Serum Alcohol <10 mg/dL Disposition Clinical Impression: Alcohol withdrawal Disposition: HOME SELF-CARE Condition: Good Instructions: Alcohol Withdrawal (ED) Additional Instructions: Take medication as directed. Call the rehabilitation center in the morning to obtain placement. Return to the emergency department immediately for any new, worsening, or concerning symptoms. Prescriptions: chlordiazePOXIDE HCl [Librium] 50 mg PO DIRECTED 3 Days #12 capsule LORazepam [Ativan] 1 mg PO TID 3 Days #9 tab Ondansetron [Zofran ODT] 4 mg PO Q8HR PRN #10 tab PRN Reason: Nausea Is patient prescribed a controlled substance at d/c from ED?: No Referrals: Veena Bynum DO [Primary Care Provider] - 1-2 days Time of Disposition: 04:18
[2018-06-28 02:43] LABS: Basophils % (A) 0 %; Eosinophils # (A) 0.1 k/uL (0-0.7); Eosinophils % (A) 1 %; HCT 40.7 % (39.0-53.0); HGB 13.5 gm/dL (13.0-17.5); Lymphocytes # (A) 2.7 k/uL (1.0-4.8); Lymphocytes % (A) 27 %; MCH 30.6 pg (25.0-35.0); MCHC 33.1 g/dL (31.0-37.0); MCV 92.4 fL (80.0-100.0); Mean Platelet Volume 6.6; Monocytes # (A) 0.8 k/uL (0-1.0); Monocytes % (A) 8 %; Neutrophils # (A) 6.1 k/uL (1.3-7.7); Neutrophils % (A) 62 %; RDW 13.6 % (11.5-15.5); WBC 9.8 k/uL (3.8-10.6)
[2018-06-28 02:50] LABS: Platelet Count 332 k/uL (150-450)
[2018-06-28 02:57] LABS: Alcohol <10 mg/dL; Anion Gap 12 mmol/L; Blood Urea Nitrogen 14 mg/dL (9-20); Calcium 8.7 mg/dL (8.4-10.2); Carbon Dioxide 25 mmol/L (22-30); Chloride 100 mmol/L (98-107); Glucose 97 mg/dL (74-99); Sodium 137 mmol/L (137-145); Total Bilirubin 1.5 mg/dL (0.2-1.3)
[2018-06-28] MEDS ORDERED: SODIUM CHLORIDE 0.9% 1,000 ML with MVI, ADULT NO.4 WITH VIT K 10 ML, THIAMINE 100 MG, F... IV ONE ×4 (03:00)
[2018-06-28 03:02] LABS: Potassium 4.8 mmol/L (3.5-5.1)
[2018-06-28 03:03] LABS: ALT 66 U/L (21-72); AST 102 U/L (17-59); Albumin 4.7 g/dL (3.5-5.0); Alkaline Phosphatase 41 U/L (38-126); Magnesium 1.4 mg/dL (1.6-2.3); Phosphorus 2.7 mg/dL (2.5-4.5); Total Protein 7.4 g/dL (6.3-8.2)
[2018-06-28] MEDS ORDERED: MAGNESIUM OXIDE 400 MG TAB PO STA (03:38)
[2018-06-28 03:47] VITALS: BP 135/71; PULSE 90; RESP 19
[2018-06-28] MEDS ORDERED: ACETAMINOPHEN TAB 500 MG TAB PO STA (03:54)
[2018-06-28] MEDS ORDERED: chlordiazePOXIDE 25 MG CAP PO ONE (04:30)
[2018-06-28 04:38] VITALS: TEMP 97.8
== END 2018-06-28 04:38 | disposition home or self-care (01) ==
LOC: EC 01:55
DX: F10.239 Alcohol dependence with withdrawal, unspecified (principal); E83.42 Hypomagnesemia; G47.33 Obstructive sleep apnea (adult) (pediatric); Z99.89 Dependence on other enabling machines and devices; Z87.891 Personal history of nicotine dependence; Z88.1 Allergy status to other antibiotic agents; Z88.8 Allergy status to other drugs, medicaments and biological substances
CPT/HCPCS: 82075; 36415; 80053; 83735; 84100; 85025; 99284; 96365; 96375; 96376; 96361; G0480; J2060; J3411; 80320

== ENCOUNTER 2018-10-04 23:27 | Inpatient (IN) | payer OTHER ==
[2018-10-05] MEDS ORDERED: SODIUM CHLORIDE 0.9% 1,000 ML IV STA (00:10)
[2018-10-05] MEDS ORDERED: FAMOTIDINE 20 MG/2 ML VIAL IV STA (00:10)
[2018-10-05] MEDS ORDERED: ONDANSETRON 4 MG/2 ML VIAL IVP STA (00:10)
--- NOTE | 2018-10-05 00:25 | XR ---
EXAM: XR Chest, 2 Views CLINICAL HISTORY: ITS.REASON XR Reason: pain TECHNIQUE: Frontal and lateral views of the chest. COMPARISON: No relevant prior studies available. FINDINGS: Lungs: Unremarkable. No consolidation. Pleural space: Unremarkable. No pneumothorax. Heart: No suspicious enlargement. Mediastinum: Unremarkable. Bones/joints: No acute fracture. IMPRESSION: No acute findings.
[2018-10-05] MEDS ORDERED: SODIUM CHLORIDE 0.9% 1,000 ML with MVI, ADULT NO.4 WITH VIT K 10 ML, THIAMINE 100 MG, F... IV ONE ×4 (00:30)
[2018-10-05] MEDS ORDERED: LORazepam 2 MG/ML INJ IV STA (00:41)
[2018-10-05 00:58] LABS: Basophils % (A) 0 %; Eosinophils % (A) 0 %; HCT 41.5 % (39.0-53.0); HGB 14.2 gm/dL (13.0-17.5); Lymphocytes # (A) 1.7 k/uL (1.0-4.8); Lymphocytes % (A) 23 %; MCH 29.8 pg (25.0-35.0); MCHC 34.2 g/dL (31.0-37.0); MCV 87.2 fL (80.0-100.0); Mean Platelet Volume 7.1; Monocytes # (A) 0.4 k/uL (0-1.0); Monocytes % (A) 5 %; Neutrophils # (A) 5.4 k/uL (1.3-7.7); Neutrophils % (A) 70 %; Platelet Count 256 k/uL (150-450); RBC 4.76 m/uL (4.30-5.90); RDW 12.6 % (11.5-15.5); WBC 7.7 k/uL (3.8-10.6)
[2018-10-05 00:58] LABS: Glucose,Whole Blood 95 mg/dL (75-99)
[2018-10-05 01:03] LABS: ALT 30 U/L (21-72); AST 48 U/L (17-59); Albumin 4.6 g/dL (3.5-5.0); Alkaline Phosphatase 69 U/L (38-126); Amylase 67 U/L (30-110); Anion Gap 9 mmol/L; Blood Urea Nitrogen 16 mg/dL (9-20); Calcium 9.4 mg/dL (8.4-10.2); Carbon Dioxide 27 mmol/L (22-30); Chloride 103 mmol/L (98-107); Glucose 87 mg/dL (74-99); Lipase 63 U/L (23-300); Potassium 4.2 mmol/L (3.5-5.1); Sodium 139 mmol/L (137-145); Total Bilirubin 1.8 mg/dL (0.2-1.3); Total Protein 7.1 g/dL (6.3-8.2)
[2018-10-05 01:07] LABS: Appearance,Urine Clear (Clear); Bilirubin,Urine Negative (Negative); Blood,Urine Negative (Negative); Color,Urine Yellow; Glucose,Urine (UA) Negative (Negative); Ketones,Urine Negative (Negative); Leukocyte Esterase,Urine Negative (Negative); Nitrite,Urine Negative (Negative); Protein,Urine Trace (Negative); Specific Gravity,Urine 1.021 (1.001-1.035); Urobilinogen,Urine <2.0 mg/dL (<2.0)
--- NOTE | 2018-10-05 01:28 | ED ---
Nausea/Vomiting/Diarrhea HPI - General Chief complaint: Nausea/Vomiting/Diarrhea Stated complaint: vomiting Time Seen by Provider: 10/04/18 23:36 Source: patient Mode of arrival: ambulatory Limitations: no limitations - History of Present Illness Initial comments: 43-year-old male patient presents to the emergency department today for evaluation of alcohol intoxication, vomiting, and chest pain. Patient states he has been on a "binger" for the last 5 days. States he has been drinking over a fifth of vodka per day. Patient states today he started vomiting and has been unable to stop. He denies any abdominal pain with this. States his been unable to keep down any food or fluids. States that he is having substernal chest pain. He believes it may be from vomiting however he does report sweats and shakes as well. States he does feel mildly short of breath. He denies any cough or congestion. Denies any fever or chills. Denies any constipation or diarrhea. States he has not been eating. Patient denies any recent rash, back pain, numbness, tingling, dizziness, weakness, hematuria, dysuria, urinary urgency, urinary frequency, headache, visual changes, or any other complaints. - Related Data Home Medications Medication Instructions Recorded Confirmed Multivitamins, Thera [Multivitamin 1 tab PO DAILY 06/16/18 06/21/18 (formulary)] Previous Rx's Medication Instructions Recorded Thiamine [Vitamin B-1] 100 mg PO BID@1200,1700 #30 tab 11/06/17 Magnesium Oxide [Mag-Ox] 400 mg PO BID 5 Days #10 tablet 06/19/18 Folic Acid 1 mg PO DAILY #30 tablet 06/24/18 Pantoprazole [Protonix] 40 mg PO BID #60 tablet. 06/24/18 LORazepam [Ativan] 1 mg PO TID 3 Days #9 tab 06/28/18 Ondansetron [Zofran ODT] 4 mg PO Q8HR PRN #10 tab 06/28/18 chlordiazePOXIDE HCl [Librium] 50 mg PO DIRECTED 3 Days #12 06/28/18 capsule Allergies Allergy/AdvReac Type Severity Reaction Status Date / Time Cephalosporins Allergy Severe Anaphylaxis Verified 06/28/18 02:10 diphenhydramine HCl Allergy Severe Anaphylaxis Verified 06/28/18 02:10 [From Benadryl] divalproex sodium Allergy Severe Anaphylaxis Verified 06/28/18 02:10 [From Depakote] ceftriaxone [From Rocephin] Allergy Unknown Verified 06/28/18 02:10 cephalexin [From Keflex] Allergy Unknown Verified 06/28/18 02:10 lisinopril Allergy Unknown Verified 06/28/18 02:10 Review of Systems ROS Statement: Those systems with pertinent positive or pertinent negative responses have been documented in the HPI. ROS Other: All systems not noted in ROS Statement are negative. Past Medical History Past Medical History: GERD/Reflux, Hypertension, Osteoarthritis (OA), Pneumonia, Seizure Disorder, Sleep Apnea/CPAP/BIPAP Additional Past Medical History / Comment(s): Alcoholism, ETOH withdrawals, mild alcohol hepatitis, upper GI bleed, gastritis, abdominal pain, hypomagnesemia, past episode of "fainting" and told he had a seizurepossible alcoholic seizures/blackouts, bilateral varicose veins, spinal stenosis with surgery, he rniated disc, MILIND no CPAP, hemorrhoids. History of Any Multi-Drug Resistant Organisms: None Reported Past Surgical History: Appendectomy, Back Surgery, Tonsillectomy Additional Past Surgical History / Comment(s): 07/13/17 EGD, 4-7-16 LAMINECTOMY,bilateral DISCETOMY L5-S1. Past Anesthesia/Blood Transfusion Reactions: Motion Sickness Past Psychological History: Anxiety, Depression Smoking Status: Former smoker Past Alcohol Use History: Abuse, Daily, Heavy Past Drug Use History: None Reported - Past Family History Father Family Medical History: Cancer, Dementia Additional Family Medical History / Comment(s): melanoma, parkinsons Mother Family Medical History: Hypertension, Musculoskeletal Disorder, Neurologic Disorder, Osteoarthritis (OA) Additional Family Medical History / Comment(s): . Had some motor neuron disease General Exam Limitations: no limitations General appearance: alert, in no apparent distress, other (This is a well- developed, well-nourished adult male patient in no acute distress. Vital signs upon presentation are temperature 98.9F, pulse 107, respirations 18, blood pressure 178/93, pulse ox 100% on room air.) Eye exam: Present: normal appearance, PERRL, EOMI. Absent: scleral icterus, conjunctival injection, periorbital swelling ENT exam: Present: normal exam, normal oropharynx, mucous membranes moist Respiratory exam: Present: normal lung sounds bilaterally. Absent: respiratory distress, wheezes, rales, rhonchi, stridor Cardiovascular Exam: Present: normal rhythm, tachycardia, normal heart sounds. Absent: systolic murmur, diastolic murmur, rubs, gallop, clicks GI/Abdominal exam: Present: soft, normal bowel sounds. Absent: distended, tenderness, guarding, rebound, rigid Neurological exam: Present: alert, oriented X3, CN II-XII intact Psychiatric exam: Present: normal affect, normal mood Skin exam: Present: warm, dry, intact, normal color. Absent: rash Course Vital Signs 10/04/18 23:28 Temperature 98.9 F Pulse Rate 107 H Respiratory 18 Rate Blood Pressure 178/93 O2 Sat by Pulse 100 Oximetry Medical Decision Making - Medical Decision Making 43-year-old male patient presents to the emergency department today for evalu ation of alcohol withdrawal. Patient is also reporting vomiting and chest pain. Physical examination is unremarkable. Abdomen is soft and nontender. Labs reviewed and were unremarkable. Patient was given Ativan here in the emergency Department to aid with symptoms. Patient does not feel comfortable being discharged home. Patient will be admitted for CIWA as needed and alcohol withdrawal. He is agreeable with this plan. - Lab Data Result diagrams: 10/05/18 00:30 10/05/18 00:30 Lab Results 10/05/18 10/05/18 10/05/18 Range/Units 00:30 00:30 00:30 WBC 7.7 (3.8-10.6) k/uL RBC 4.76 (4.30-5.90) m/uL Hgb 14.2 (13.0-17.5) gm/dL Hct 41.5 (39.0-53.0) % MCV 87.2 (80.0-100.0) fL MCH 29.8 (25.0-35.0) pg MCHC 34.2 (31.0-37.0) g/dL RDW 12.6 (11.5-15.5) % Plt Count 256 (150-450) k/uL Neutrophils % 70 % Lymphocytes % 23 % Monocytes % 5 % Eosinophils % 0 % Basophils % 0 % Neutrophils # 5.4 (1.3-7.7) k/uL Lymphocytes # 1.7 (1.0-4.8) k/uL Monocytes # 0.4 (0-1.0) k/uL Eosinophils # 0.0 (0-0.7) k/uL Basophils # 0.0 (0-0.2) k/uL Sodium 139 (137-145) mmol/L Potassium 4.2 (3.5-5.1) mmol/L Chloride 103 (98-107) mmol/L Carbon Dioxide 27 (22-30) mmol/L Anion Gap 9 mmol/L BUN 16 (9-20) mg/dL Creatinine 0.72 (0.66-1.25) mg/dL Est GFR (CKD-EPI)AfAm >90 (>60 ml/min/1.73 sqM) Est GFR (CKD-EPI)NonAf >90 (>60 ml/min/1.73 sqM) Glucose 87 (74-99) mg/dL POC Glucose (mg/dL) (75-99) mg/dL POC Glu Bad Credit Collector ID Calcium 9.4 (8.4-10.2) mg/dL Total Bilirubin 1.8 H (0.2-1.3) mg/dL AST 48 (17-59) U/L ALT 30 (21-72) U/L Alkaline Phosphatase 69 (38-126) U/L Troponin I <0.012 (0.000-0.034) ng/mL Total Protein 7.1 (6.3-8.2) g/dL Albumin 4.6 (3.5-5.0) g/dL Amylase 67 (30-110) U/L Lipase 63 (23-300) U/L Urine Color Urine Appearance (Clear) Urine pH (5.0-8.0) Ur Specific [place] (1.001-1.035) Urine Protein (Negative) Urine Glucose (UA) (Negative) Urine Ketones (Negative) Urine Blood (Negative) Urine Nitrite (Negative) Urine Bilirubin (Negative) Urine Urobilinogen (<2.0) mg/dL Ur Leukocyte Esterase (Negative) 10/05/18 10/05/18 Range/Units 00:39 00:55 WBC (3.8-10.6) k/uL RBC (4.30-5.90) m/uL Hgb (13.0-17.5) gm/dL Hct (39.0-53.0) % MCV (80.0-100.0) fL MCH (25.0-35.0) pg MCHC (31.0-37.0) g/dL RDW (11.5-15.5) % Plt Count (150-450) k/uL Neutrophils % % Lymphocytes % % Monocytes % % Eosinophils % % Basophils % % Neutrophils # (1.3-7.7) k/uL Lymphocytes # (1.0-4.8) k/uL Monocytes # (0-1.0) k/uL Eosinophils # (0-0.7) k/uL Basophils # (0-0.2) k/uL Sodium (137-145) mmol/L Potassium (3.5-5.1) mmol/L Chloride (98-107) mmol/L Carbon Dioxide (22-30) mmol/L Anion Gap mmol/L BUN (9-20) mg/dL Creatinine (0.66-1.25) mg/dL Est GFR (CKD-EPI)AfAm (>60 ml/min/1.73 sqM) Est GFR (CKD-EPI)NonAf (>60 ml/min/1.73 sqM) Glucose (74-99) mg/dL POC Glucose (mg/dL) 95 (75-99) mg/dL POC Glu Bad Credit Collector ID Malika Ortiz A Calcium (8.4-10.2) mg/dL Total Bilirubin (0.2-1.3) mg/dL AST (17-59) U/L ALT (21-72) U/L Alkaline Phosphatase (38-126) U/L Troponin I (0.000-0.034) ng/mL Total Protein (6.3-8.2) g/dL Albumin (3.5-5.0) g/dL Amylase (30-110) U/L Lipase (23-300) U/L Urine Color Yellow Urine Appearance Clear (Clear) Urine pH 6.0 (5.0-8.0) Ur Specific [place] 1.021 (1.001-1.035) Urine Protein Trace H (Negative) Urine Glucose (UA) Negative (Negative) Urine Ketones Negative (Negative) Urine Blood Negative (Negative) Urine Nitrite Negative (Negative) Urine Bilirubin Negative (Negative) Urine Urobilinogen <2.0 (<2.0) mg/dL Ur Leukocyte Esterase Negative (Negative) - Radiology Data Radiology results: report reviewed, image reviewed Two-view x-ray of the chest is obtained. Report was reviewed in its entirety. Impression by Dr. Perez shows no acute findings. Disposition Clinical Impression: Alcohol withdrawal Disposition: ADMITTED IP TO THIS [facility] Condition: Serious Referrals: Veena Bynum DO [Primary Care Provider] - 1-2 days Decision to Admit Reason: Admit from EC Decision Date: 10/05/18 Decision Time: 01:50
[2018-10-05] MEDS ORDERED: THIAMINE 100 MG/ML 2 ML VIAL IM STA (01:39)
[2018-10-05] MEDS ORDERED: LORazepam 2 MG/ML INJ IV PRN ×2 (01:39)
[2018-10-05] MEDS ORDERED: ONDANSETRON 4 MG/2 ML VIAL IVP PRN (01:42)
[2018-10-05] MEDS ORDERED: NALOXONE 0.4 MG/ML 1 ML VIAL IV PRN (01:42)
[2018-10-05] MEDS: LORazepam 2 MG/ML INJ IV PRN ×6 (01:48→18:25)
[2018-10-05] MEDS: PANTOPRAZOLE 40 MG/10 ML VIAL IVP SCH ×2 (14:39→21:06)
--- NOTE | 2018-10-05 15:10 | P.HPIM ---
History of Present Illness 41-year-old pleasant gentleman came in with complains of epigastric abdominal discomfort burning sensation, patient has history of alcohol abuse in the past was recently discharged from [facility] for about 3 and half months ago after which he went to alcohol rehabilitation program, did well until couple weeks ago when he started drinking about a fifth of vodka a day. Patient doesn't appear to have withdrawals at this point of time objectively although subjectively he complains about hallucinations and receives Ativan. Patient will be started on Protonix will watch her one more night his last drink was yesterday morning. Patient looks much better than his previous hospitalizations. Patient denied any fever chills patient denied any diarrhea. Dysuria. Patient is comparing of multiple episodes of nausea and vomiting as well which improved now Review of Systems REVIEW OF SYSTEMS: CONSTITUTIONAL: No fever, no malaise, no fatigue. HEENT: No recent visual problems or hearing problems. Denied any sore throat. CARDIOVASCULAR: No chest pain, orthopnea, PND, no palpitations, no syncope. PULMONARY: No shortness of breath, no cough, no hemoptysis. GASTROINTESTINAL: No diarrhea NEUROLOGICAL: No headaches, no weakness, no numbness. HEMATOLOGICAL: Denies any bleeding or petechiae. GENITOURINARY: Denies any burning micturition, frequency, or urgency. MUSCULOSKELETAL/RHEUMATOLOGICAL: Denies any joint pain, swelling, or any muscle pain. ENDOCRINE: Denies any polyuria or polydipsia. The rest of the 14-point review of systems is negative. Past Medical History Past Medical History: GERD/Reflux, Hypertension, Osteoarthritis (OA), Pneumonia, Seizure Disorder, Sleep Apnea/CPAP/BIPAP Additional Past Medical History / Comment(s): Alcoholism, ETOH withdrawals, mild alcohol hepatitis, upper GI bleed, gastritis, abdominal pain, hypomagnesemia, past episode of "fainting" and told he had a seizurepossible alcoholic seizures/blackouts, bilateral varicose veins, spinal stenosis with surgery, herniated disc, MILIND no CPAP, hemorrhoids. History of Any Multi-Drug Resistant Organisms: None Reported Past Surgical History: Appendectomy, Back Surgery, Tonsillectomy Additional Past Surgical History / Comment(s): 07/13/17 EGD, 16 LAMINECTOMY,b ilateral DISCETOMY L5-S1. Past Anesthesia/Blood Transfusion Reactions: Motion Sickness Past Psychological History: Anxiety, Depression Additional Psychological History / Comment(s): pt lives alone in house, no pets. Pt uses no assistive device. He drives. Pt is an alcoholic. He has been in rehab for his alcoholism in the past. 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 - Past Family History Father Family Medical History: Cancer, Dementia Additional Family Medical History / Comment(s): melanoma, parkinsons Mother Family Medical History: Hypertension, Musculoskeletal Disorder, Neurologic Disorder, Osteoarthritis (OA) Additional Family Medical History / Comment(s): . Had some motor neuron disease Medications and Allergies Home Medications Medication Instructions Recorded Confirmed Type Thiamine [Vitamin B-1] 100 mg PO BID@1200,1700 #30 tab 11/06/17 10/05/18 Rx Multivitamins, Thera [Multivitamin 1 tab PO DAILY 06/16/18 10/05/18 History (formulary)] Magnesium Oxide [Mag-Ox] 400 mg PO BID 5 Days #10 tablet 06/19/18 10/05/18 Rx Pantoprazole [Protonix] 40 mg PO BID #60 tablet. 06/24/18 10/05/18 Rx Gabapentin 600 mg PO TID 10/05/18 10/05/18 History LORazepam [Ativan] 1 mg PO TID PRN 10/05/18 10/05/18 History Allergies Allergy/AdvReac Type Severity Reaction Status Date / Time Cephalosporins Allergy Severe Anaphylaxis Verified 10/05/18 08:12 diphenhydramine HCl Allergy Severe Anaphylaxis Verified 10/05/18 08:12 [From Benadryl] divalproex sodium Allergy Severe Anaphylaxis Verified 10/05/18 08:12 [From Depakote] ceftriaxone [From Rocephin] Allergy Unknown Verified 10/05/18 08:12 cephalexin [From Keflex] Allergy Unknown Verified 10/05/18 08:12 lisinopril Allergy Unknown Verified 10/05/18 08:12 Physical Exam Vitals: Vital Signs Temp Pulse Pulse Resp BP BP Pulse Ox 10/05/18 11:48 97.1 F L 76 18 139/85 97 10/05/18 06:34 99.3 F 90 20 161/92 97 10/05/18 01:53 92 16 151/93 10/04/18 23:28 98.9 F 107 H 18 178/93 100 Intake and Output 10/05/18 10/05/18 10/05/18 06:59 14:59 22:59 Intake Total 800 Balance 800 Intake: Intake, IV Titration 800 Amount Sodium Chloride 0.9% 1, 800 000 ml @ 100 mls/hr IV . Q10H7M ONE with Mvi, Adult No.4 with Vit K 10 ml with Thiamine 100 mg with Folic Acid 1 mg Rx#: [id number] Other: # Voids 1 Weight 113.398 kg PHYSICAL EXAMINATION: GENERAL: The patient is alert and oriented x3, not in any acute distress. Well developed, well nourished. HEENT: Pupils are round and equally reacting to light. EOMI. No scleral icterus. No conjunctival pallor. Normocephalic, atraumatic. No pharyngeal erythema. No thyromegaly. CARDIOVASCULAR: S1 and S2 present. No murmurs, rubs, or gallops. PULMONARY: Chest is clear to auscultation, no wheezing or crackles. ABDOMEN: Soft, nontender, nondistended, normoactive bowel sounds. No palpable organomegaly. MUSCULOSKELETAL: No joint swelling or deformity. EXTREMITIES: No cyanosis, clubbing, or pedal edema. NEUROLOGICAL: Gross neurological examination did not reveal any focal deficits. SKIN: No rashes. Results CBC & Chem 7: 10/05/18 00:30 10/05/18 00:30 Labs: Abnormal Lab Results - Last 24 Hours (Table) 10/05/18 10/05/18 Range/Units 00:30 00:55 Total Bilirubin 1.8 H (0.2-1.3) mg/dL Urine Protein Trace H (Negative) Thrombosis Risk Factor Assmnt - Choose All That Apply Any of the Below Risk Factors Present?: Yes Each Factor Represents 1 point: Age 41-60 years, Obesity (BMI >25) Other Risk Factors: No Other congenital or acquired thrombophilia - If yes, enter type in comment: No Thrombosis Risk Factor Assessment Total Risk Factor Score: 2 Thrombosis Risk Factor Assessment Level: Low Risk Assessment and Plan Plan: -Alcoholic gastritis: Patient will be started on Protonix we'll advance the diet patient is clinically doing well be discharged tomorrow -Alcohol abuse: Counseling was provided patient will discharge to alcohol rehabilitation program. Counseling was provided regarding this -Alcohol withdrawal: Objectively do not believe patient has an alcohol wi thdrawal patient will be given Ativan only for objective symptoms. Will be monitored overnight tonight. Patient will be resumed on thiamine and magnesium oxide supplementation -Hypertension -Sleep apnea on CPAP machine which will be continued -Depression -DVT prophylaxis early ambulation For above-mentioned chronic medical problems patient will be resumed on appropriate home medications
[2018-10-05] MEDS: GABAPENTIN 300 MG CAP PO SCH ×2 (16:31→21:06)
[2018-10-05] MEDS ORDERED: THIAMINE 100 MG TAB PO SCH ×2 (17:00)
[2018-10-05] MEDS: MAGNESIUM OXIDE 400 MG TAB PO SCH (21:06)
[2018-10-06] MEDS: LORazepam 2 MG/ML INJ IV PRN ×2 (03:24→10:33)
[2018-10-06 05:38] VITALS: PULSE 68; TEMP 98.5
[2018-10-06] MEDS: GABAPENTIN 300 MG CAP PO SCH (10:34)
[2018-10-06] MEDS: PANTOPRAZOLE 40 MG/10 ML VIAL IVP SCH (10:34)
[2018-10-06] MEDS: MAGNESIUM OXIDE 400 MG TAB PO SCH (10:34)
[2018-10-06 14:30] VITALS: BP 113/67; RESP 16
--- NOTE | 2018-10-06 15:28 | P.DS ---
Providers Date of admission: 10/05/18 02:16 Attending physician: Hank Ogden Primary care physician: Veena Bynum [facility] Hospital Course: 41-year-old pleasant gentleman came in with complains of epigastric abdominal discomfort burning sensation, patient has history of alcohol abuse in the past was recently discharged from [facility] for about 3 and half months ago after which he went to alcohol rehabilitation program, did well until couple weeks ago when he started drinking about a fifth of vodka a day. Patient doesn't appear to have withdrawals at this point of time objectively although subjectively he complains about hallucinations and receives Ativan. Patient will be started on Protonix will watch her one more night his last drink was yesterday morning. Patient looks much better than his previous hospitalizations. Patient denied any fever chills patient denied any diarrhea. Dysuria. Patient is comparing of multiple episodes of nausea and vomiting as well which improved now 10/06/2018 Patient had very minimal withdraws all the him couple days of Ativan with discharged today he shouldn't is agreeable to go to alcohol rehabilitation program when he goes home. PHYSICAL EXAMINATION: GENERAL: The patient is alert and oriented x3, not in any acute distress. Well developed, well nourished. HEENT: Pupils are round and equally reacting to light. EOMI. No scleral icterus. No conjunctival pallor. Normocephalic, atraumatic. No pharyngeal erythema. No thyromegaly. CARDIOVASCULAR: S1 and S2 present. No murmurs, rubs, or gallops. PULMONARY: Chest is clear to auscultation, no wheezing or crackles. ABDOMEN: Soft, nontender, nondistended, normoactive bowel sounds. No palpable organomegaly. MUSCULOSKELETAL: No joint swelling or deformity. EXTREMITIES: No cyanosis, clubbing, or pedal edema. NEUROLOGICAL: Gross neurological examination did not reveal any focal deficits. SKIN: No rashes. Assessment and Plan Plan: -Alcoholic gastritis: Patient will be discharged on Prilosec -Alcohol abuse: Counseling was provided regarding this -Alcohol withdrawal: No significant withdrawals today -Hypertension -Sleep apnea on CPAP machine which will be continued -Depression Patient Condition at Discharge: Serious Plan - Discharge Summary New Discharge Prescriptions: Continue Thiamine [Vitamin B-1] 100 mg PO BID@1200,1700 #30 tab Multivitamins, Thera [Multivitamin (formulary)] 1 tab PO DAILY Magnesium Oxide [Mag-Ox] 400 mg PO BID 5 Days #10 tablet Pantoprazole [Protonix] 40 mg PO BID #60 tablet. Gabapentin 600 mg PO TID LORazepam [Ativan] 1 mg PO TID PRN #10 tablet PRN Reason: Anxiety Discharge Medication List Thiamine [Vitamin B-1] 100 mg PO BID@1200,1700 #30 tab 11/06/17 [Rx] Multivitamins, Thera [Multivitamin (formulary)] 1 tab PO DAILY 06/16/18 [History] Magnesium Oxide [Mag-Ox] 400 mg PO BID 5 Days #10 tablet 06/19/18 [Rx] Pantoprazole [Protonix] 40 mg PO BID #60 tablet. 06/24/18 [Rx] Gabapentin 600 mg PO TID 10/05/18 [History] LORazepam [Ativan] 1 mg PO TID PRN #10 tablet 10/06/18 [Rx] Follow up Appointment(s)/Referral(s): Veena Bynum DO [Primary Care Provider] - 10/11/18 9:40 am Discharge Disposition: HOME SELF-CARE
[2018-10-06] MEDS ORDERED: PANTOPRAZOLE 40 MG TABLET PO SCH (17:30)
== END 2018-10-06 16:08 | disposition home or self-care (01) | DRG 392 ==
LOC: EC 23:27 → 4MS4W 10-05 02:16
PROVIDERS: ADMIT Internal Medicine; ATTEND Internal Medicine
DX: K29.20 Alcoholic gastritis without bleeding (principal); F10.129 Alcohol abuse with intoxication, unspecified; F32.9 Major depressive disorder, single episode, unspecified; F41.9 Anxiety disorder, unspecified; G40.909 Epilepsy, unspecified, not intractable, without status epilepticus; G47.33 Obstructive sleep apnea (adult) (pediatric); I10 Essential (primary) hypertension; K21.9 Gastro-esophageal reflux disease without esophagitis; M19.90 Unspecified osteoarthritis, unspecified site; R30.0 Dysuria; R07.2 Precordial pain; I83.93 Asymptomatic varicose veins of bilateral lower extremities; K64.9 Unspecified hemorrhoids; Z87.891 Personal history of nicotine dependence; Z79.899 Other long term (current) drug therapy; Z88.1 Allergy status to other antibiotic agents; Z88.8 Allergy status to other drugs, medicaments and biological substances; Z87.01 Personal history of pneumonia (recurrent); Z90.49 Acquired absence of other specified parts of digestive tract; Z80.8 Family history of malignant neoplasm of other organs or systems; Z82.0 Family history of epilepsy and other diseases of the nervous system; Z82.49 Family history of ischemic heart disease and other diseases of the circulatory system; Z82.61 Family history of arthritis
CPT/HCPCS: 36415; 71046; 80053; 81003; 82075; 82150; 83690; 84484; 85025; 93005; 96361; 96365; 96375; 96376; 99285

== ENCOUNTER 2019-01-03 06:35 | Emergency (ER) | payer OTHER ==
[2019-01-03 06:42] VITALS: RESP 18
--- NOTE | 2019-01-03 07:09 | ED ---
Extremity Problem HPI - General Chief complaint: Extremity Problem,Nontraumatic Stated complaint: wrist injury Time Seen by Provider: 01/03/19 07:01 Source: patient, RN notes reviewed Mode of arrival: ambulatory Limitations: no limitations - History of Present Illness Initial comments: 43-year-old male presents emergency Department with chief complaint of right wrist pain. Patient states that over the last few days of progressive worsening pain on the ulnar aspect of his wrist. 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 Patient states that the pain is getting worse. The controls for his high low is on the right side. Patient is right-hand dominant. Patient denies any paresthesias, discoloration of his hand, change in sensation. Patient states that the pain is better at rest. - Related Data Home Medications Medication Instructions Recorded Confirmed ALPRAZolam [Xanax] 1 mg PO BID PRN 01/03/19 01/03/19 Acetaminophen Tab [Tylenol Tab] 1,000 mg PO Q6HR MDD PAIN 01/03/19 01/03/19 Albuterol Inhaler [Ventolin Hfa 1 - 2 puff INHALATION RT-Q6H PRN 01/03/19 01/03/19 Inhaler] Ibuprofen [Motrin Ib] 600 mg PO Q6H PRN 01/03/19 01/03/19 Losartan Potassium 50 mg PO DAILY 01/03/19 01/03/19 Pantoprazole Sodium 40 mg PO DAILY 01/03/19 01/03/19 Previous Rx's Medication Instructions Recorded predniSONE 50 mg PO DAILY #5 tab 01/03/19 Allergies Allergy/AdvReac Type Severity Reaction Status Date / Time Cephalosporins Allergy Severe Anaphylaxis Verified 01/03/19 07:10 diphenhydramine HCl Allergy Severe Anaphylaxis Verified 01/03/19 07:10 [From Benadryl] divalproex sodium Allergy Severe Anaphylaxis Verified 01/03/19 07:10 [From Depakote] ceftriaxone [From Rocephin] Allergy Unknown Verified 01/03/19 07:10 cephalexin [From Keflex] Allergy Unknown Verified 01/03/19 07:10 lisinopril Allergy Unknown Verified 01/03/19 07:10 Review of Systems ROS Statement: Those systems with pertinent positive or pertinent negative responses have been documented in the HPI. ROS Other: All systems not noted in ROS Statement are negative. Past Medical History Past Medical History: GERD/Reflux, Hypertension, Osteoarthritis (OA), Pneumonia, Seizure Disorder, Sleep Apnea/CPAP/BIPAP Additional Past Medical History / Comment(s): Alcoholism, ETOH withdrawals, mild alcohol hepatitis, upper GI bleed, gastritis, abdominal pain, hypomagnesemia, past episode of "fainting" and told he had a seizurepossible alcoholic seizures/blackouts, bilateral varicose veins, spinal stenosis with surgery, herniated disc, MILIND no CPAP, hemorrhoids. History of Any Multi-Drug Resistant Organisms: None Reported Past Surgical History: Appendectomy, Back Surgery, Tonsillectomy Additional Past Surgical History / Comment(s): 07/13/17 EGD, 09-20-15 LAMINECTOMY,bilateral DISCETOMY L5-S1. Past Anesthesia/Blood Transfusion Reactions: Motion Sickness Past Psychological History: Anxiety, Depression Smoking Status: Former smoker Past Alcohol Use History: Abuse, Daily, Heavy Past Drug Use History: None Reported - Past Family History Father Family Medical History: Cancer, Dementia Additional Family Medical History / Comment(s): melanoma, parkinsons Mother Family Medical History: Hypertension, Musculoskeletal Disorder, Neurologic Disorder, Osteoarthritis (OA) Additional Family Medical History / Comment(s): . Had some motor neuron disease General Exam Limitations: no limitations General appearance: alert, in no apparent distress Head exam: Present: atraumatic, normocephalic, normal inspection Eye exam: Present: normal appearance, PERRL, EOMI. Absent: scleral icterus, conjunctival injection, periorbital swelling Neck exam: Present: normal inspection, full ROM. Absent: tenderness, meningismus, lymphadenopathy Respiratory exam: Present: normal lung sounds bilaterally. Absent: respiratory distress, wheezes, rales, rhonchi, stridor Cardiovascular Exam: Present: regular rate, normal rhythm, normal heart sounds. Absent: systolic murmur, diastolic murmur, rubs, gallop, clicks Extremities exam: Present: other (Right wrist there is tenderness along the ulnar aspect, no obvious deformity no swelling or erythema neurovascular intact equal radial pulses capillary refill less than 2 seconds of all digits there is no discoloration patient's full sensation there is no tenderness above the wrist no tenderness the distal the wrist patient reports pain with radial deviation worsen ulnar deviation) Neurological exam: Present: alert, oriented X3, CN II-XII intact, reflexes normal. Absent: motor sensory deficit Skin exam: Present: warm, dry, intact, normal color. Absent: rash Course Vital Signs 01/03/19 06:39 Temperature 98.1 F Pulse Rate 78 Respiratory 18 Rate Blood Pressure 173/100 O2 Sat by Pulse 100 Oximetry Medical Decision Making - Medical Decision Making 43-year-old male present emergency department for right wrist pain. This is related to tendinitis from overuse possibly from work. Patient will be given prednisone will be given a work note. Patient will be discharged return parameters were discussed. Disposition Clinical Impression: Right wrist tendonitis Disposition: HOME SELF-CARE Condition: Stable Instructions (If sedation given, give patient instructions): Tendinitis (ED) Additional Instructions: Please return to the Emergency Department if symptoms worsen or any other concerns. Prescriptions: predniSONE 50 mg PO DAILY #5 tab Is patient prescribed a controlled substance at d/c from ED?: No Referrals: Veena Bynum DO [Primary Care Provider] - 1-2 days Armani Yuen DO [Doctor of Osteopathic Medicine] - 1-2 days Time of Disposition: 07:40
[2019-01-03] MEDS ORDERED: traMADol 50 MG STARTER PACK 3 TAB BTL PO STA (07:40)
[2019-01-03 08:20] VITALS: BP 144/96; PULSE 68; TEMP 98.2
--- NOTE | 2019-01-03 14:00 | XR ---
EXAMINATION TYPE: XR wrist complete RT DATE OF EXAM: 01/03/2019 COMPARISON: NONE HISTORY: 43-year-old male with pain TECHNIQUE: 4 views FINDINGS: Mild degenerative change at the base of the thumb. The radiocarpal and distal radial ulnar joint as well as the midcarpal compartment appear intact. No acute fracture, subluxation, or dislocat ion seen. IMPRESSION: Mild osteoarthritic change at the base of the thumb. No acute osseous abnormality seen.
== END 2019-01-03 07:53 | disposition home or self-care (01) ==
LOC: EC 06:35
DX: M70.841 Other soft tissue disorders related to use, overuse and pressure, right hand (principal); I10 Essential (primary) hypertension; K21.9 Gastro-esophageal reflux disease without esophagitis; Z87.891 Personal history of nicotine dependence; Z79.891 Long term (current) use of opiate analgesic; Z79.899 Other long term (current) drug therapy; Z88.1 Allergy status to other antibiotic agents; Z88.8 Allergy status to other drugs, medicaments and biological substances; Z82.61 Family history of arthritis
CPT/HCPCS: 99283

== ENCOUNTER 2019-03-04 08:11 | Observation (INO) | payer OTHER ==
[2019-03-04] MEDS ORDERED: ASPIRIN 81 MG PO STA (08:26)
--- NOTE | 2019-03-04 08:26 | ED ---
Chest Pain HPI - General Chief Complaint: Chest Pain Stated Complaint: Painful breathing Time Seen by Provider: 03/04/19 08:17 Source: patient, RN notes reviewed Mode of arrival: ambulatory Limitations: no limitations - History of Present Illness Initial Comments: 43-year-old male presents emergency Department with chief complaint of lung pain, chest pain. Patient states that over the last week he's had some difficulty breathing or which she describes as a cold feeling in his lungs. Patient states over the last 3 days she's had worsening symptoms he does feel more short of breath with exertion. Patient states he does have a history of hypertension. Patient has no complaints of abdominal pain denies vomiting diarrhea constipation he does admit that he occasionally has some pedal edema after a days worth of work. He has no calf pain no history DVT or PE. Patient states that the dizziness increased pain with deep inspiration. - Related Data Home Medications Medication Instructions Recorded Confirmed ALPRAZolam [Xanax] 1 mg PO BID PRN 01/03/19 03/04/19 Acetaminophen Tab [Tylenol Tab] 1,000 mg PO Q6HR MDD PAIN 01/03/19 03/04/19 Albuterol Inhaler [Ventolin Hfa 1 - 2 puff INHALATION RT-Q6H PRN 01/03/19 03/04/19 Inhaler] Ibuprofen [Motrin Ib] 600 mg PO Q6H PRN 01/03/19 03/04/19 Losartan Potassium 50 mg PO DAILY 01/03/19 03/04/19 Pantoprazole Sodium 40 mg PO DAILY 01/03/19 03/04/19 Gabapentin [Neurontin] 600 mg PO TID 03/04/19 03/04/19 traZODone HCL [Desyrel] 100 mg PO HS 03/04/19 03/04/19 Allergies Allergy/AdvReac Type Severity Reaction Status Date / Time Cephalosporins Allergy Severe Anaphylaxis Verified 03/04/19 08:16 diphenhydramine HCl Allergy Severe Anaphylaxis Verified 03/04/19 08:16 [From Benadryl] divalproex sodium Allergy Severe Anaphylaxis Verified 03/04/19 08:16 [From Depakote] ceftriaxone [From Rocephin] Allergy Unknown Verified 03/04/19 08:16 cephalexin [From Keflex] Allergy Unknown Verified 03/04/19 08:16 lisinopril Allergy Unknown Verified 03/04/19 08:16 Review of Systems ROS Statement: Those systems with pertinent positive or pertinent negative responses have been documented in the HPI. ROS Other: All systems not noted in ROS Statement are negative. Past Medical History Past Medical History: GERD/Reflux, Hypertension, Osteoarthritis (OA), Pneumonia, Seizure Disorder, Sleep Apnea/CPAP/BIPAP Additional Past Medical History / Comment(s): Alcoholism, ETOH withdrawals, mild alcohol hepatitis, upper GI bleed, gastritis, hypomagnesemia, past episode of "fainting" and told he had a seizurepossible alcoholic seizures/blackouts, bilateral varicose veins, spinal stenosis with surgery, herniated disc, MILIND no CPAP, hemorrhoids. History of Any Multi-Drug Resistant Organisms: None Reported Past Surgical History: Appendectomy, Back Surgery, Tonsillectomy Additional Past Surgical History / Comment(s): 07/13/17 EGD, 09-20-15 LAMINECTOMY,bilateral DISCETOMY L5-S1. Past Anesthesia/Blood Transfusion Reactions: Motion Sickness Past Psychological History: Anxiety, Depression Smoking Status: Former smoker Past Alcohol Use History: None Reported Past Drug Use History: None Reported - Past Family History Father Family Medical History: Cancer, Dementia Additional Family Medical History / Comment(s): melanoma, parkinsons Mother Family Medical History: Hypertension, Musculoskeletal Disorder, Neurologic Disorder, Osteoarthritis (OA) Additional Family Medical History / Comment(s): . Had some motor neuron disease General Exam Limitations: no limitations General appearance: alert, in no apparent distress Head exam: Present: atraumatic, normocephalic, normal inspection ENT exam: Present: normal exam, mucous membranes moist Neck exam: Present: normal inspection, full ROM. Absent: tenderness, meningismus, lymphadenopathy Respiratory exam: Present: normal lung sounds bilaterally. Absent: respiratory distress, wheezes, rales, rhonchi, stridor Cardiovascular Exam: Present: regular rate, normal rhythm, normal heart sounds. Absent: systolic murmur, diastolic murmur, rubs, gallop, clicks GI/Abdominal exam: Present: soft, normal bowel sounds. Absent: distended, tenderness, guarding, rebound, rigid Neurological exam: Present: alert Skin exam: Present: warm, dry, intact, normal color. Absent: rash Course Vital Signs 03/04/19 03/04/19 08:12 08:58 Temperature 98.2 F Pulse Rate 94 Pulse Rate [ 82 Critical Care Technician ] Respiratory 18 Rate Blood Pressure 167/97 O2 Sat by Pulse 99 Oximetry Chest Pain MDM - MDM 43-year-old male presented from for chest,, shortness of breath. Patient had exertional shortness of breath. Patient will be admitted for cardiology evaluation, echo. Disposition Clinical Impression: Chest pain, Exertional shortness of breath Disposition: ADMITTED IP TO THIS HOSP Condition: Fair Referrals: Veena Bynum DO [Primary Care Provider] - 1-2 days
[2019-03-04 09:08] LABS: Basophils # (A) 0.1 k/uL (0-0.2); Basophils % (A) 1 %; Eosinophils # (A) 0.2 k/uL (0-0.7); Eosinophils % (A) 2 %; HCT 42.7 % (39.0-53.0); HGB 14.5 gm/dL (13.0-17.5); Lymphocytes # (A) 2.3 k/uL (1.0-4.8); Lymphocytes % (A) 30 %; MCH 29.4 pg (25.0-35.0); MCV 86.5 fL (80.0-100.0); Mean Platelet Volume 7.9; Monocytes # (A) 0.4 k/uL (0-1.0); Monocytes % (A) 5 %; Neutrophils # (A) 4.6 k/uL (1.3-7.7); Neutrophils % (A) 60 %; Platelet Count 198 k/uL (150-450); RBC 4.94 m/uL (4.30-5.90); RDW 15.1 % (11.5-15.5); WBC 7.6 k/uL (3.8-10.6)
--- NOTE | 2019-03-04 09:21 | XR ---
EXAMINATION TYPE: XR chest 2V DATE OF EXAM: 03/04/2019 COMPARISON: NONE HISTORY: Chest pain TECHNIQUE: Frontal and lateral views of the chest are obtained. FINDINGS: There is no focal air space opacity. No evidence for pneumothorax. No pleural effusion. The cardiac silhouette size is within normal limits. The osseous structures are grossly intact. IMPRESSION: 1. No acute cardiopulmonary process.
[2019-03-04 10:04] LABS: ALT 23 U/L (21-72); AST 36 U/L (17-59); African American GFR (CKD) >90 (>60 ml/min/1.73 sqM); Albumin 4.3 g/dL (3.5-5.0); Alkaline Phosphatase 62 U/L (38-126); Anion Gap 10 mmol/L; Blood Urea Nitrogen 24 mg/dL (9-20); Calcium 9.4 mg/dL (8.4-10.2); Carbon Dioxide 29 mmol/L (22-30); Chloride 103 mmol/L (98-107); Glucose 86 mg/dL (74-99); Magnesium 1.8 mg/dL (1.6-2.3); Potassium 4.7 mmol/L (3.5-5.1); Sodium 142 mmol/L (137-145); Total Bilirubin 0.7 mg/dL (0.2-1.3)
[2019-03-04 10:13] LABS: D-Dimer <0.17 mg/L FEU (<0.60); INR 0.9 (<1.2); Partial Thromboplastin Time 25.4 sec (22.0-30.0); Prothrombin Time 9.8 sec (9.0-12.0)
[2019-03-04] MEDS ORDERED: ONDANSETRON 4 MG/2 ML VIAL IVP STA (10:43)
[2019-03-04] MEDS ORDERED: MORPHINE SULFATE 4 MG/ML SYRINGE IVP STA (10:43)
[2019-03-04] MEDS ORDERED: NITROGLYCERIN SL TABS 0.4 MG TAB SUBLINGUAL PRN (10:45)
[2019-03-04] MEDS ORDERED: HEPARIN SODIUM,PORCINE 5,000 UNIT/ML 1 ML VIAL IV ONE (10:45)
[2019-03-04] MEDS: HEPARIN SOD,PORK IN 0.45% NACL 25,000 UNIT in 0.45% NACL 1 250ML.BAG IV SCH (11:08)
--- NOTE | 2019-03-04 11:37 | ECHOF ---
Referral Reason:chest pain MEASUREMENTS -------- HEIGHT: 180.3 cm WEIGHT: 124.3 kg BP: RVIDd: 2.7 cm (< 3.3) IVSd: 1.2 cm (0.6 - 1.1) LVIDd: 5.4 cm (3.9 - 5.3) LVPWd: 1.2 cm (0.6 - 1.1) IVSs: 1.6 cm LVIDs: 3.5 cm LVPWs: 1.8 cm LAESV Index (A-L): 27.92 ml/m Ao Diam: 3.0 cm (2.0 - 3.7) AV Cusp: 2.2 cm (1.5 - 2.6) LA Diam: 3.3 cm (2.7 - 3.8) MV EXCURSION: 23.601 mm (> 18.000) MV EF SLOPE: 138 mm/s (70 - 150) EPSS: 0.6 cm MV E Behzad: 0.83 m/s MV DecT: 241 ms MV A Behzad: 0.59 m/s MV E/A Ratio: 1.39 RAP: 5.00 mmHg RVSP: 12.99 mmHg TAPSE: 36.70 mm FINDINGS -------- Sinus rhythm. This was a technically adequate study. The left ventricular size is normal. There is mild concentric left ventricular hypertrophy. Overa ll left ventricular systolic function is normal with, an EF between 55 - 60 %. The diastolic fillin g pattern is normal for the age of the patient 8.09. The right ventricle is normal in size. The right ventricular systolic function is normal. Normal LA size by volume 22+/-6 ml/m2. The right atrial size is normal. Interatrial and interventricular septum intact. The aortic valve is trileaflet, and appears structurally normal. No aortic stenosis or regurgitation. The mitral valve is normal. Mild mitral regurgitation is present. The tricuspid valve appears structurally normal. Mild tricuspid regurgitation present. Right vent ricular systolic pressure is normal at < 35 mmHg. There is no pulmonic regurgitation present. The aortic root size is normal. Normal inferior vena cava with normal inspiratory collapse consistent with estimated right atrial pre ssure of 5 mmHg. All pulmonary veins appear normal. The flow patterns, measured by Doppler, appear normal. There is no pericardial effusion. CONCLUSIONS -------- 1. Sinus rhythm. 2. This was a technically adequate study. 3. The left ventricular size is normal. 4. There is mild concentric left ventricular hypertrophy. 5. Overall left ventricular systolic function is normal with, an EF between 55 - 60 %. 6. The diastolic filling pattern is normal for the age of the patient 8.09 7. The right ventricular systolic function is normal. 8. Normal LA size by volume 22+/-6 ml/m2. 9. The aortic valve is trileaflet, and appears structurally normal. No aortic stenosis or regurgitati on. 10. The mitral valve is normal. 11. Mild mitral regurgitation is present. 12. The tricuspid valve appears structurally normal. 13. Mild tricuspid regurgitation present. 14. Right ventricular systolic pressure is normal at < 35 mmHg. 15. There is no pulmonic regurgitation present. 16. The aortic root size is normal. 17. Normal inferior vena cava with normal inspiratory collapse consistent with estimated right atrial pressure of 5 mmHg. 18. All pulmonary veins appear normal. 19. The flow patterns, measured by Doppler, appear normal. 20. There is no pericardial effusion. SOUNDING DEVICE OPERATOR: Bell [place], [facility]
[2019-03-04 12:12] VITALS: BMI 37.1
[2019-03-04] MEDS ORDERED: PNEUMOCOCCAL VACC-PNEUMOVAX 23 25 MCG/0.5 ML VIAL IM ONE (12:14)
[2019-03-04] MEDS: MORPHINE SULFATE 2 MG/ML SYRINGE IVP PRN ×2 (14:46→20:00)
[2019-03-04] MEDS ORDERED: ACETAMINOPHEN TAB 500 MG TAB PO PRN (14:51)
[2019-03-04] MEDS ORDERED: IBUPROFEN 600 MG TAB PO PRN (14:51)
[2019-03-04] MEDS ORDERED: traZODone HCL 100 MG TAB PO PRN (14:51)
--- NOTE | 2019-03-04 17:58 | P.HPIM ---
History of Present Illness This is a pleasant 43 years old male with past medical history of hypertension, GERD, GI bleed, pneumonia, seizure disorder, sleep apnea on CPAP/BiPAP, alcohol abuse, alcoholic seizure, alcoholic hepatitis, alcoholic gastritis, upper GI bleed, spinal stenosis with herniated disc status post surgery, hemorrhoids. Presents with chest pain patient states that he comes to the hospital because of chest pain that he didn't go to work last night because of his chest pain. The pain is central, nonradiating of one-day duration about 8/10 in severity, and 5/10 with morphine, felt like sharp precipitated by coughing and deep breathing. Patient have some cough and scant phlegm, but there is no hemoptysis. Associated with exertional dyspnea for 3 days, Patient also complained from headache about one week duration which started as sudden on on both sides and on the top of his head, about 5/10, nonspecific, patient says that headache wakes him up from sleep at times. Patient denies abdominal pain, no nausea vomiting, no change in urine or bowel habits, he smokes about 1 pack that last for him for over 3-4 days, no alcohol or illicit drugs Patient has chronic back pain and numbness in both feet more on the right side, his been going on for a long time, 4 years. Other medical problems including anxiety GERD and hypertension as above Vitas looks stable, slightly hypertensive labs including CBC, BMP, liver enzymes are within normal limits, first troponin is negative, d-dimer is less than 0.17 Review of Systems CONSTITUTIONAL: No fever, no malaise, no fatigue. HEENT: No recent visual problems or hearing problems. Denied any sore throat. CARDIOVASCULAR: No orthopnea, PND, no palpitations, no syncope. PULMONARY: No shortness of breath, no cough, no hemoptysis. GASTROINTESTINAL: No diarrhea, no nausea, no vomiting, no abdominal pain. Normoactive bowel sounds. NEUROLOGICAL: No headaches, no weakness, no numbness. HEMATOLOGICAL: Denies any bleeding or petechiae. GENITOURINARY: Denies any burning micturition, frequency, or urgency. MUSCULOSKELETAL/RHEUMATOLOGICAL: Denies any joint pain, swelling, or any muscle pain. ENDOCRINE: Denies any polyuria or polydipsia. Past Medical History Past Medical History: GERD/Reflux, GI Bleed, Hypertension, Osteoarthritis (OA), Pneumonia, Seizure Disorder, Sleep Apnea/CPAP/BIPAP Additional Past Medical History / Comment(s): Occasional bilateral pedal edema if stands long, arthritis possibly in back/ribs, MILIND without device, ETOH abuse, alcoholic seizures/blackouts/fainting, alcoholic hepatitis, alcoholic gastritis, upper GI bleed, hypomagnesemia, spinal stenosis/herniated disc with surgery, bilateral varicose veins, hemorrhoids History of Any Multi-Drug Resistant Organisms: None Reported Past Surgical History: Appendectomy, Back Surgery, Tonsillectomy Additional Past Surgical History / Comment(s): Laminectomy, discectomy L5-S1, EGD Past Anesthesia/Blood Transfusion Reactions: Motion Sickness Smoking Status: Light tobacco smoker - Past Family History Father Family Medical History: Cancer, Dementia, Neurologic Disorder Additional Family Medical History / Comment(s): melanoma, parkinsons Mother Family Medical History: Hypertension, Musculoskeletal Disorder, Neurologic Disorder, Osteoarthritis (OA) Additional Family Medical History / Comment(s): Mother of motor neuron disease at the age of 78yrs. Medications and Allergies Home Medications Medication Instructions Recorded Confirmed Type ALPRAZolam [Xanax] 1 mg PO BID PRN 01/03/19 03/04/19 History Acetaminophen Tab [Tylenol Tab] 1,000 mg PO Q6HR MDD PAIN 01/03/19 03/04/19 History Albuterol Inhaler [Ventolin Hfa 1 - 2 puff INHALATION RT-Q6H PRN 01/03/19 03/04/19 History Inhaler] Ibuprofen [Motrin Ib] 600 mg PO Q6H PRN 01/03/19 03/04/19 History Losartan Potassium 50 mg PO DAILY 01/03/19 03/04/19 History Pantoprazole Sodium 40 mg PO DAILY 01/03/19 03/04/19 History Gabapentin [Neurontin] 600 mg PO TID 03/04/19 03/04/19 History traZODone HCL [Desyrel] 100 mg PO HS 03/04/19 03/04/19 History Allergies Allergy/AdvReac Type Severity Reaction Status Date / Time Cephalosporins Allergy Severe Anaphylaxis Verified 03/04/19 08:16 diphenhydramine HCl Allergy Severe Anaphylaxis Verified 03/04/19 08:16 [From Benadryl] divalproex sodium Allergy Severe Anaphylaxis Verified 03/04/19 08:16 [From Depakote] ceftriaxone [From Rocephin] Allergy Unknown Verified 03/04/19 08:16 cephalexin [From Keflex] Allergy Unknown Verified 03/04/19 08:16 lisinopril Allergy Unknown Verified 03/04/19 08:16 Physical Exam Vitals: Vital Signs Temp Pulse Pulse Resp BP Pulse Ox 03/04/19 14:00 58 L 20 146/94 03/04/19 13:00 20 142/96 03/04/19 12:00 76 22 143/88 100 03/04/19 11:00 69 20 151/91 94 L 03/04/19 10:00 78 16 147/97 99 03/04/19 09:00 69 16 149/96 03/04/19 08:58 82 03/04/19 08:42 100 03/04/19 08:12 98.2 F 94 18 167/97 99 Intake and Output 03/04/19 03/04/19 03/04/19 06:59 14:59 22:59 Other: Weight 124.284 kg GENERAL: The patient is alert and oriented x3, not in any acute distress. Well developed, well nourished. HEENT: Pupils are round and equally reacting to light. EOMI. No scleral icterus. No conjunctival pallor. Normocephalic, atraumatic. No pharyngeal erythema. No thyromegaly. CARDIOVASCULAR: S1 and S2 present. No murmurs, rubs, or gallops. PULMONARY: Chest is clear to auscultation, no wheezing or crackles. ABDOMEN: Soft, nontender, nondistended, normoactive bowel sounds. No palpable organomegaly. MUSCULOSKELETAL: No joint swelling or deformity. EXTREMITIES: No cyanosis, clubbing, or pedal edema. NEUROLOGICAL: Gross neurological examination did not reveal any focal deficits. SKIN: No rashes. No petechiae Results CBC & Chem 7: 03/04/19 08:50 03/04/19 09:30 Labs: Abnormal Lab Results - Last 24 Hours (Table) 03/04/19 Range/Units 09:30 BUN 24 H (9-20) mg/dL Thrombosis Risk Factor Assmnt - Choose All That Apply Any of the Below Risk Factors Present?: Yes Each Factor Represents 1 point: Age 41-60 years, Obesity (BMI >25) Other Risk Factors: No Other congenital or acquired thrombophilia - If yes, enter type in comment: No Thrombosis Risk Factor Assessment Total Risk Factor Score: 2 Thrombosis Risk Factor Assessment Level: Low Risk Assessment and Plan Assessment: Chest pain, rule out cardiac causes Hypertension GERD Sleep apnea on CPAP/BiPAP Alcohol abuse alcohol withdrawal seizure Alcoholic gastritis GI bleed spinal stenosis with herniated disc status post surgery hemorrhoids Plan: This is a pleasant 43 years old male who presents with chest pain, cardiology consult, serial cardiac enzymes, check the echocardiogram . Also check CAT scan of the head since the patient is with headache that makes him up from sleep while he is on heparin drip. Pain management. Nicotine patch and patient was consult. Labs and medication were reviewed.. Continue same treatment. Continue with symptomatic treatment. Resume home medication. Monitor lytes and vitals. DVT and GI prophylaxis. Further recommendations of the clinical course of the patient DVT prophylaxis: heparin GI Prophylaxis: Pepcid PT/OT: Pending Prognosis is guarded
[2019-03-04] MEDS ORDERED: HEPARIN SODIUM,PORCINE 5,000 UNIT/ML 1 ML VIAL IV STA (18:06)
--- NOTE | 2019-03-04 18:26 | CT ---
EXAMINATION TYPE: CT brain wo con DATE OF EXAM: 03/04/2019 COMPARISON: None HISTORY: Headache x 1 week, patient on heparin drip. CT DLP: 1094.4 mGycm. Automated Exposure Control for Dose Reduction was Utilized. TECHNIQUE: CT scan of the head is performed without contrast. FINDINGS: Ventricles of normal size. There is no mass effect nor midline shift. There is no sign of i ntracranial hemorrhage. The calvarium is intact. IMPRESSION: Negative CT scan of the brain.
[2019-03-04] MEDS: GABAPENTIN 300 MG CAP PO SCH ×2 (18:27→22:13)
[2019-03-04] MEDS: FAMOTIDINE 20 MG/2 ML VIAL IV SCH (20:00)
[2019-03-04] MEDS: NICOTINE 14MG/24HR PATCH TRANSDERM SCH (20:01)
[2019-03-04] MEDS: ALPRAZolam 1 MG TAB PO PRN (20:10)
[2019-03-05] MEDS: MORPHINE SULFATE 2 MG/ML SYRINGE IVP PRN ×3 (00:30→08:28)
[2019-03-05 04:42] VITALS: RESP 14
[2019-03-05 06:44] LABS: Platelet Count 205 k/uL (150-450)
[2019-03-05 06:56] LABS: Cholesterol 158 mg/dL (<200); HDL Cholesterol 56 mg/dL (40-60); LDL Cholesterol,Calculated 90 mg/dL (0-99); Triglycerides 60 mg/dL (<150)
[2019-03-05] MEDS ORDERED: PANTOPRAZOLE 40 MG TABLET PO SCH (07:30)
[2019-03-05] MEDS: HEPARIN SOD,PORK IN 0.45% NACL 25,000 UNIT in 0.45% NACL 1 250ML.BAG IV SCH (08:26)
[2019-03-05] MEDS: GABAPENTIN 300 MG CAP PO SCH (08:27)
[2019-03-05] MEDS: NICOTINE 14MG/24HR PATCH TRANSDERM SCH (08:27)
[2019-03-05] MEDS: FAMOTIDINE 20 MG/2 ML VIAL IV SCH (08:27)
[2019-03-05] MEDS ORDERED: ASPIRIN 325 MG TAB PO SCH (09:00)
[2019-03-05] MEDS ORDERED: LOSARTAN 50 MG TAB PO SCH (09:00)
[2019-03-05 09:24] LABS: African American GFR (CKD) >90 (>60 ml/min/1.73 sqM); Anion Gap 8 mmol/L; Blood Urea Nitrogen 19 mg/dL (9-20); Calcium 9.5 mg/dL (8.4-10.2); Carbon Dioxide 30 mmol/L (22-30); Chloride 102 mmol/L (98-107); Glucose 83 mg/dL (74-99); Potassium 4.7 mmol/L (3.5-5.1); Sodium 140 mmol/L (137-145)
[2019-03-05 09:31] LABS: Basophils # (A) 0.1 k/uL (0-0.2); Basophils % (A) 1 %; Eosinophils # (A) 0.2 k/uL (0-0.7); Eosinophils % (A) 2 %; HGB 14.8 gm/dL (13.0-17.5); Lymphocytes # (A) 3.3 k/uL (1.0-4.8); Lymphocytes % (A) 43 %; MCH 29.3 pg (25.0-35.0); MCHC 33.7 g/dL (31.0-37.0); Mean Platelet Volume 7.9; Monocytes # (A) 0.4 k/uL (0-1.0); Monocytes % (A) 5 %; Neutrophils # (A) 3.5 k/uL (1.3-7.7); Neutrophils % (A) 47 %; RBC 5.06 m/uL (4.30-5.90); RDW 15.2 % (11.5-15.5); WBC 7.5 k/uL (3.8-10.6)
--- NOTE | 2019-03-05 11:20 | P.CRDCN ---
History of Present Illness Consult date: 03/05/19 Consult reason: chest pain History of present illness: This is a 43-year-old male with past medical history of hypertension, GERD, GI bleed, pneumonia, seizure disorder, sleep apnea on CPAP/BiPAP, alcohol abuse, alcoholic seizure, alcoholic hepatitis, alcoholic gastritis, upper GI bleed, spinal stenosis with herniated disc status post surgery, hemorrhoids, active tobacco use. Patient states that yesterday after he finished working midnight shift he was running errands and developed chest pain to the midsternal area that seemed to go up and down vertically and also out toward the sides of his chest along with cough that is new for him. Chest pain was sharp and seemed to be worse after he coughed or deep breathes. He also complained of headache for a week. EKG reveals sinus mechanism with no acute ST-T wave changes. Laboratory studies: Troponin negative on 3 draws, influenza testing negative, CBC and basic metabolic panel unremarkable. Triglycerides 60, cholesterol 158, LDL 90, HDL 56, lipase 121. Review Of Systems: Constitutional: No fever, no chills, no night sweats. No weakness, fatigue or lethargy. No daytime sleepiness. EENT: Reports headache Lungs: Reports shortness of breath, reports cough, no sputum production. No wheezing. Cardiovascular: Reports chest pain, no lower extremity edema. No palpitations. No paroxysmal nocturnal dyspnea. No orthopnea. No lightheadedness or dizziness. No syncopal episodes. Abdominal: No abdominal pain. No nausea, vomiting. No diarrhea. No constipation. No bloody or tarry stools. No loss of appetite. Genitourinary: No dysuria, increased frequency, urgency. No urinary retention. Musculoskeletal: No myalgias. No muscle weakness, no gait dysfunction, no f requent falls. No back pain. No neck pain. Integumentary: No wounds, no lesions. No rash or pruritus. Neurologic: No aphasia. No facial droop. No change in mentation. No head injury. No headache. No paralysis. Gen: This is a 43-year-old obese male. He is sleeping better awakens to verbal stimuli. He appears to be in no acute distress. Blood pressure 119/74, heart rate 63, afebrile HEENT: Head is atraumatic, normocephalic. Pupils equal, round. Sclerae is anicteric. NECK: Supple. No JVD. No lymphadenopathy. No thyromegaly. LUNGS: Clear to auscultation. No wheezes or rhonchi. No intercostal retractions. HEART: Regular rate and rhythm. No murmur. Minimal chest wall tenderness. ABDOMEN: Soft. Bowel sounds are present. No masses. No tenderness. EXTREMITIES: No pedal edema. No calf tenderness. NEUROLOGICAL: Patient is awake, alert and oriented x3. Cranial nerves 2 through 12 are grossly intact. Assessment: Chest pain, acute coronary syndrome ruled out Hypertension Obstructive sleep apnea History of alcohol abuse, alcohol gastritis Spinal stenosis and herniated disc Plan: Heparin drip will be discontinued Continue losartan 50 mg daily The patient is cleared for discharge from cardiology perspective. Thank you kindly for this consultation. Nurse practitioner note has been reviewed, I agree with documented findings and plan of care. Patient was seen and examined. Past Medical History Past Medical History: GERD/Reflux, GI Bleed, Hypertension, Osteoarthritis (OA), Pneumonia, Seizure Disorder, Sleep Apnea/CPAP/BIPAP Additional Past Medical History / Comment(s): Occasional bilateral pedal edema if stands long, arthritis possibly in back/ribs, MILIND without device, ETOH abuse, alcoholic seizures/blackouts/fainting, alcoholic hepatitis, alcoholic gastritis, upper GI bleed, hypomagnesemia, spinal stenosis/herniated disc with surgery, bilateral varicose veins, hemorrhoids History of Any Multi-Drug Resistant Organisms: None Reported Past Surgical History: Appendectomy, Back Surgery, Tonsillectomy Additional Past Surgical History / Comment(s): Laminectomy, discectomy L5-S1, EGD Past Anesthesia/Blood Transfusion Reactions: Motion Sickness Smoking Status: Light tobacco smoker - Past Family History Father Family Medical History: Cancer, Dementia, Neurologic Disorder Additional Family Medical History / Comment(s): melanoma, parkinsons Mother Family Medical History: Hypertension, Musculoskeletal Disorder, Neurologic Disorder, Osteoarthritis (OA) Additional Family Medical History / Comment(s): Mother of motor neuron disease at the age of 78yrs. Medications and Allergies Home Medications Medication Instructions Recorded Confirmed Type ALPRAZolam [Xanax] 1 mg PO BID PRN 01/03/19 03/04/19 History Acetaminophen Tab [Tylenol Tab] 1,000 mg PO Q6HR MDD PAIN 07/22/19 09/20/19 H istory Albuterol Inhaler [Ventolin Hfa 1 - 2 puff INHALATION RT-Q6H PRN 01/03/19 03/04/19 History Inhaler] Ibuprofen [Motrin Ib] 600 mg PO Q6H PRN 01/03/19 03/04/19 History Losartan Potassium 50 mg PO DAILY 01/03/19 03/04/19 History Pantoprazole Sodium 40 mg PO DAILY 01/03/19 03/04/19 History Gabapentin [Neurontin] 600 mg PO TID 03/04/19 03/04/19 History traZODone HCL [Desyrel] 100 mg PO HS 03/04/19 03/04/19 History Allergies Allergy/AdvReac Type Severity Reaction Status Date / Time Cephalosporins Allergy Severe Anaphylaxis Verified 03/04/19 08:16 diphenhydramine HCl Allergy Severe Anaphylaxis Verified 03/04/19 08:16 [From Benadryl] divalproex sodium Allergy Severe Anaphylaxis Verified 03/04/19 08:16 [From Depakote] ceftriaxone [From Rocephin] Allergy Unknown Verified 03/04/19 08:16 cephalexin [From Keflex] Allergy Unknown Verified 03/04/19 08:16 lisinopril Allergy Unknown Verified 03/04/19 08:16 Physical Exam Vitals: Vital Signs Temp Pulse Pulse Resp BP BP Pulse Ox 03/05/19 04:00 97.7 F 63 14 119/74 03/05/19 00:00 96.4 F L 65 16 122/69 03/04/19 20:00 96.5 F L 61 16 130/56 96 03/04/19 16:00 98.0 F 56 L 14 120/69 97 03/04/19 14:00 58 L 20 146/94 03/04/19 13:00 20 142/96 03/04/19 12:00 76 22 143/88 100 Intake and Output 03/04/19 03/05/19 03/05/19 22:59 06:59 14:59 Intake Total 927.667 620 542.333 Balance 927.667 620 542.333 Intake: IV 20 140 .9%NS at 20 20 140 Intake, IV Titration 67.667 182.333 Amount Heparin Sod,Pork in 0.45% 67.667 182.333 NaCl 25,000 unit In 0.45 % NaCl 1 250ml.bag @ 8. 046 UNITS/KG/HR 10 mls/hr IV .Q24H [facility] Rx#: [id number] Oral [id number] Other: # Voids 4 Weight 121.5 kg Results 03/05/19 06:16 03/04/19 09:30 Cardiac Enzymes 03/04/19 03/04/19 Range/Units 16:40 22:07 Troponin I <0.012 <0.012 (0.000-0.034) ng/mL Coagulation 03/04/19 03/04/19 03/05/19 Range/Units 16:40 22:07 06:16 APTT 34.1 H 56.7 H 46.2 H (22.0-30.0) sec Lipids 03/05/19 Range/Units 06:16 Triglycerides 60 (<150) mg/dL Cholesterol 158 (<200) mg/dL HDL Cholesterol 56 (40-60) mg/dL CBC 03/05/19 Range/Units 06:16 WBC 7.5 (3.8-10.6) k/uL RBC 5.06 (4.30-5.90) m/uL Hgb 14.8 (13.0-17.5) gm/dL Hct 44.0 (39.0-53.0) % Plt Count 205 (150-450) k/uL Comprehensive Metabolic Panel 03/05/19 Range/Units 06:16 Sodium 140 (137-145) mmol/L Potassium 4.7 (3.5-5.1) mmol/L Chloride 102 (98-107) mmol/L Carbon Dioxide 30 (22-30) mmol/L BUN 19 (9-20) mg/dL Creatinine 0.77 (0.66-1.25) mg/dL Glucose 83 (74-99) mg/dL Calcium 9.5 (8.4-10.2) mg/dL Current Medications Generic Name Dose Route Start Last Admin Trade Name Freq PRN Reason Stop Dose Admin Acetaminophen 1,000 mg 03/04/19 14:51 03/05/19 08:27 Tylenol Tab PO 1,000 mg Q6HR PRN Administration Pain Alprazolam 1 mg 03/04/19 14:51 03/04/19 20:10 Xanax PO 1 mg BID PRN Administration Anxiety Aspirin 325 mg 03/05/19 09:00 03/05/19 08:27 Aspirin PO 325 mg DAILY [facility] Administration Famotidine 20 mg 03/04/19 21:00 03/05/19 08:27 Pepcid IV 20 mg Q12HR [facility] Administration Gabapentin 600 mg 03/04/19 16:00 03/05/19 08:27 Neurontin PO 600 mg TID [facility] Administration Heparin Sodium/Sodium Chloride 250 mls @ 10 mls/hr 03/04/19 10:45 03/05/19 08:26 25,000 unit/ Sodium Chloride IV 11 units/kg/hr .Q24H [facility] 13.671 mls/hr Administration Protocol 8.046 UNITS/KG/HR Losartan Potassium 50 mg 03/05/19 09:00 03/05/19 08:27 Cozaar PO 50 mg DAILY [facility] Administration Morphine Sulfate 2 mg 03/04/19 10:45 03/05/19 08:28 Morphine Sulfate (Inj) IVP 2 mg Q4H PRN Administration Chest Pain Nicotine 1 patch 03/04/19 18:00 03/05/19 08:27 Habitrol 14mg/24hr Patch TRANSDERM 1 patch DAILY [facility] Administration Nitroglycerin 0.4 mg 03/04/19 10:45 Nitrostat SUBLINGUAL Q5M PRN Chest Pain Pantoprazole Sodium 40 mg 03/05/19 07:30 03/05/19 06:07 Protonix PO 40 mg AC-BRKFST TRA[facility] Administration Trazodone HCl 100 mg 03/04/19 14:51 Desyrel PO HS PRN Insomnia Intake and Output 03/04/19 03/05/19 03/05/19 22:59 06:59 14:59 Intake Total 927.667 620 542.333 Balance 927.667 620 542.333 Intake: IV 20 140 .9%NS at 20 20 140 Intake, IV Titration 67.667 182.333 Amount Heparin Sod,Pork in 0.45% 67.667 182.333 NaCl 25,000 unit In 0.45 % NaCl 1 250ml.bag @ 8. 046 UNITS/KG/HR 10 mls/hr IV .Q24H [facility] Rx#: [id number] Oral [phone] Other: # Voids 4 Weight 121.5 kg 03/05/19 06:16 03/05/19 06:16
[2019-03-05] MEDS: ALPRAZolam 1 MG TAB PO PRN (11:37)
--- NOTE | 2019-03-05 13:46 | P.DS ---
Providers Date of admission: 03/04/19 10:45 Expected date of discharge: 03/05/19 Attending physician: Gabriel Santillan Consults: 03/04/19 10:45 Consult Physician Urgent Consulting Provider: Joao Parkinson Consult Reason/Comments: chest pain Do you want consulting provider notified?: Yes Primary care physician: [facility] Course: HPI - Mr. Chiang is a 43 years old male with past medical history of hypertension, GERD, GI bleed, pneumonia, seizure disorder, sleep apnea on CPAP/BiPAP, alcohol abuse, alcoholic seizure, alcoholic hepatitis, alcoholic gastritis, upper GI bleed, spinal stenosis with herniated disc status post surgery, hemorrhoids. Presents with chest pain patient states that he comes to the hospital because of chest pain that he didn't go to work last night because of his chest pain. The pain is central, nonradiating of one-day duration about 8/10 in severity, and 5/10 with morphine, felt like sharp precipitated by coughing and deep breathing. Patient have some cough and scant phlegm, but there is no hemoptysis. Associated with exertional dyspnea for 3 days, Patient also complained from headache about one week duration which started as s udden on on both sides and on the top of his head, about 5/10, nonspecific, patient says that headache wakes him up from sleep at times. Patient denies abdominal pain, no nausea vomiting, no change in urine or bowel habits, he smokes about 1 pack that last for him for over 3-4 days, no alcohol or illicit drugs Patient has chronic back pain and numbness in both feet more on the right side, his been going on for a long time, 4 years. Other medical problems including anxiety GERD and hypertension. Hospital course - clean the hospital stay patient had EKG with no acute ST-T wave changes. Troponins negative 3. CBC and lites within normal limits. Cardiology evaluated the patient and deemed to be stable for discharge. Patient reports of having some cough that is dry in nature. He is a smoker and 1 pack lasts him for 3 days. Discussed with him that he is going to be given doxycycline for 5 days for his acute bronchitis. In case his symptoms of chest pain or difficulty in breathing worse and he is advised to come back to the ER. Patient's vitals at the time of discharge- blood pressure 1 19 x 74 heart rate 73 dysphagia rate 14 saturating at 100% on room air temperature 97.7. GEN. APPEARANCE: alert, in no apparent distress HEENT - no pallor no icterus. No thyromegaly RESPIRATORY EXAM: Bilateral breath sounds are positive. No wheezes or crackles. CARDIOVASCULAR EXAM: regular rate, normal rhythm, normal heart sounds. Absent: systolic murmur, diastolic murmur, rubs, gallop, clicks GI/ABDOMINAL EXAM: soft, normal bowel sounds. Absent: distended, tenderness, guarding, rebound, rigid EXTREMITIES EXAM: No pedal edema NEUROLOGICAL EXAM: Alert awake oriented 3. No focal neurological deficits. DISCHARGE DIAGNOSIS Chest pain, acute coronary syndrome ruled out Acute bronchitis Hypertension Obstructive sleep apnea History of alcohol abuse, alcohol gastritis Spinal stenosis and herniated disc PLAN: Patient is being discharged home in a stable condition. Advised to follow-up with his primary care physician in 2-3 days. Patient Condition at Discharge: Fair Plan - Discharge Summary Discharge Rx Participant: No New Discharge Prescriptions: New Doxycycline [Vibramycin] 100 mg PO BID 5 Days #10 capsule Continue Acetaminophen Tab [Tylenol] 1,000 mg PO Q6HR MDD PAIN Pantoprazole Sodium 40 mg PO DAILY Losartan Potassium 50 mg PO DAILY Ibuprofen [Motrin Ib] 600 mg PO Q6H PRN PRN Reason: Pain ALPRAZolam [Xanax] 1 mg PO BID PRN PRN Reason: Anxiety Albuterol Inhaler [Ventolin Hfa Inhaler] 1 - 2 puff INHALATION RT-Q6H PRN PRN Reason: Shortness Of Breath Gabapentin [Neurontin] 600 mg PO TID traZODone HCL [Desyrel] 100 mg PO HS Discharge Medication List ALPRAZolam [Xanax] 1 mg PO BID PRN 01/03/19 [History] Acetaminophen Tab [Tylenol] 1,000 mg PO Q6HR MDD PAIN 01/03/19 [History] Albuterol Inhaler [Ventolin Hfa Inhaler] 1 - 2 puff INHALATION RT-Q6H PRN 01/03/19 [History] Ibuprofen [Motrin Ib] 600 mg PO Q6H PRN 01/03/19 [History] Losartan Potassium 50 mg PO DAILY 01/03/19 [History] Pantoprazole Sodium 40 mg PO DAILY 01/03/19 [History] Gabapentin [Neurontin] 600 mg PO TID 03/04/19 [History] traZODone HCL [Desyrel] 100 mg PO HS 03/04/19 [History] Doxycycline [Vibramycin] 100 mg PO BID 5 Days #10 capsule 03/05/19 [Rx] Follow up Appointment(s)/Referral(s): Veena Bynum DO [Primary Care Provider] - 1-2 days
[2019-03-05 14:24] VITALS: BP 127/71; PULSE 76; TEMP 98.1
== END 2019-03-05 15:02 | disposition home or self-care (01) ==
LOC: EC 08:11 → 1SOBS 10:45 → 3SCARD 14:00
PROVIDERS: ADMIT Internal Medicine; ATTEND Internal Medicine
DX: R07.89 Other chest pain (principal); R51 Headache; J20.9 Acute bronchitis, unspecified; I10 Essential (primary) hypertension; G47.33 Obstructive sleep apnea (adult) (pediatric); M48.00 Spinal stenosis, site unspecified; K21.9 Gastro-esophageal reflux disease without esophagitis; G40.509 Epileptic seizures related to external causes, not intractable, without status epilepticus; K70.10 Alcoholic hepatitis without ascites; K29.21 Alcoholic gastritis with bleeding; F41.9 Anxiety disorder, unspecified; F32.9 Major depressive disorder, single episode, unspecified; F17.210 Nicotine dependence, cigarettes, uncomplicated; G89.29 Other chronic pain; M54.9 Dorsalgia, unspecified; R20.0 Anesthesia of skin; M19.90 Unspecified osteoarthritis, unspecified site; E83.42 Hypomagnesemia; F10.239 Alcohol dependence with withdrawal, unspecified; R60.0 Localized edema; E66.9 Obesity, unspecified; Z68.36 Body mass index [BMI] 36.0-36.9, adult; I83.93 Asymptomatic varicose veins of bilateral lower extremities; Z99.89 Dependence on other enabling machines and devices; Z87.19 Personal history of other diseases of the digestive system; Z87.01 Personal history of pneumonia (recurrent); Z88.8 Allergy status to other drugs, medicaments and biological substances; Z88.1 Allergy status to other antibiotic agents; Z79.899 Other long term (current) drug therapy; Z79.1 Long term (current) use of non-steroidal anti-inflammatories (NSAID); Z80.8 Family history of malignant neoplasm of other organs or systems; Z81.8 Family history of other mental and behavioral disorders; Z82.0 Family history of epilepsy and other diseases of the nervous system; Z82.49 Family history of ischemic heart disease and other diseases of the circulatory system; Z82.61 Family history of arthritis
CPT/HCPCS: 96376 ×3; 96366 ×3; 96375 ×2; 96365; 99285; 36415; 93005; 93306; 85379; 83880; 80061; 80053; 80048; 83690; 83735; 84484; 85025 ×2; 85610; 85730 ×2; 87502; 71046; 70450; G0378 ×2; S4990 ×2; J2270 ×3; J1644 ×3; J2405

== ENCOUNTER 2019-06-23 07:23 | Emergency (ER) | payer OTHER ==
[2019-06-23 07:26] VITALS: BP 203/114; PULSE 101; RESP 20; TEMP 97.8
[2019-06-23] MEDS ORDERED: KETOROLAC 30 MG/ML 1 ML VIAL IM STA (07:48)
--- NOTE | 2019-06-23 08:15 | ED ---
ENT HPI - General Chief complaint: ENT Stated complaint: jaw pain Time Seen by Provider: 06/23/19 07:33 Source: patient Mode of arrival: ambulatory Limitations: no limitations - History of Present Illness Initial comments: The patient is a 43-year-old male with past medical history of hypertension, alcohol abuse and reflux who presents to emergency room with reported right TMJ pain. States that the pain has been present for the past year. He sees Dr. Bynum in office. He is currently on Celebrex for the pain. He was told to follow up with dentist however states he has not. He ran out of his medication a few days ago. States that since he been off this medication that his pain has been worsened. Pain is worse with palpation to the right TMJ. Also provoked with chewing and talking. Denies any fevers or chills, no chest pain or shortness of breath. No previous history of cardiac disease. No nausea or vomiting. He has been taking Motrin at home however states this is "hard on his stomach". He denies sensation his airway is closing off. No difficulty swallowing. There are no alleviating, precipitating or modifying factors - Related Data Home Medications Medication Instructions Recorded Confirmed ALPRAZolam [Xanax] 1 mg PO BID PRN 01/03/19 03/04/19 Acetaminophen Tab [Tylenol] 1,000 mg PO Q6HR MDD PAIN 01/03/19 03/04/19 Albuterol Inhaler [Ventolin Hfa 1 - 2 puff INHALATION RT-Q6H PRN 01/03/19 03/04/19 Inhaler] Ibuprofen [Motrin Ib] 600 mg PO Q6H PRN 01/03/19 03/04/19 Losartan Potassium 50 mg PO DAILY 01/03/19 03/04/19 Pantoprazole Sodium 40 mg PO DAILY 01/03/19 03/04/19 Gabapentin [Neurontin] 600 mg PO TID 03/04/19 03/04/19 traZODone HCL [Desyrel] 100 mg PO HS 03/04/19 03/04/19 Previous Rx's Medication Instructions Recorded Doxycycline [Vibramycin] 100 mg PO BID 5 Days #10 capsule 03/05/19 Celecoxib [CeleBREX] 200 mg PO BID #10 capsule 06/23/19 traMADol HCl [Ultram] 50 mg PO Q6H PRN #12 tab 06/23/19 Allergies Allergy/AdvReac Type Severity Reaction Status Date / Time Cephalosporins Allergy Severe Anaphylaxis Verified 06/23/19 07:27 diphenhydramine HCl Allergy Severe Anaphylaxis Verified 06/23/19 07:27 [From Benadryl] divalproex sodium Allergy Severe Anaphylaxis Verified 06/23/19 07:27 [From Depakote] ceftriaxone [From Rocephin] Allergy Unknown Verified 06/23/19 07:27 cephalexin [From Keflex] Allergy Unknown Verified 06/23/19 07:27 lisinopril Allergy Unknown Verified 06/23/19 07:27 Review of Systems ROS Statement: Those systems with pertinent positive or pertinent negative responses have been documented in the HPI. ROS Other: All systems not noted in ROS Statement are negative. Past Medical History Past Medical History: GERD/Reflux, GI Bleed, Hypertension, Osteoarthritis (OA), Pneumonia, Seizure Disorder, Sleep Apnea/CPAP/BIPAP Additional Past Medical History / Comment(s): Occasional bilateral pedal edema if stands long, arthritis possibly in back/ribs, MILIND without device, ETOH abuse, alcoholic seizures/blackouts/fainting, alcoholic hepatitis, alcoholic gastritis, upper GI bleed, hypomagnesemia, spinal stenosis/herniated disc with surgery, bilateral varicose veins, hemorrhoids History of Any Multi-Drug Resistant Organisms: None Reported Past Surgical History: Appendectomy, Back Surgery, Tonsillectomy Additional Past Surgical History / Comment(s): Laminectomy, discectomy L5-S1, EGD Past Anesthesia/Blood Transfusion Reactions: Motion Sickness Past Psychological History: Anxiety, Depression Smoking Status: Light tobacco smoker Past Alcohol Use History: None Reported Past Drug Use History: None Reported - Past Family History Father Family Medical History: Cancer, Dementia, Neurologic Disorder Additional Family Medical History / Comment(s): melanoma, parkinsons Mother Family Medical History: Hypertension, Musculoskeletal Disorder, Neurologic Disorder, Osteoarthritis (OA) Additional Family Medical History / Comment(s): Mother of motor neuron disease at the age of 78yrs. General Exam Limitations: no limitations General appearance: alert, in no apparent distress Head exam: Present: atraumatic, normocephalic Eye exam: Present: PERRL, EOMI ENT exam: Present: normal oropharynx, mucous membranes moist, TM's normal bilaterally, normal external ear exam, other (tenderness to the right tmj. No facial swelling, redness, crepitance. No oral swelling or dental abscess identified. External and internal ear unremarkable. ) Neck exam: Present: normal inspection, full ROM. Absent: tenderness, meningismus Respiratory exam: Present: normal lung sounds bilaterally. Absent: respiratory distress, wheezes, rales, rhonchi Cardiovascular Exam: Present: regular rate, normal rhythm Course Vital Signs 06/23/19 07:24 Temperature 97.8 F Pulse Rate 101 H Respiratory 20 Rate Blood Pressure 203/114 O2 Sat by Pulse 97 Oximetry Medical Decision Making - Medical Decision Making Upon arrival the patient was placed in room 9. A thorough history and physical exam was performed. The patient was given 30 mg of Toradol IM. I discussed diagnosis, differential and treatment options. The patient does present with right-sided jaw pain reproducible on palpation. The patient is requesting to go back on his Celebrex as this does help his symptoms however is wishing to have a higher dose. I told the patient can temporarily put him on 400 mg daily however want him to follow-up with his primary care doctor for further management. He is requesting something stronger for pain. I also placed the patient on Ultram at this time. History does report that he has a history of seizure disorder however patient reports that this is from alcohol withdrawal and he does not have a history of seizure disorder. No current alcohol use. I informed him that he should not use the medications together, but alternate taking them for pain control. Patient understood this. He needs to follow-up with his dentist for further treatment options. Return to the emergency department for any new or worsening symptoms. Patient was in agreement treatment plan and discharged home in stable condition Disposition Clinical Impression: TMJ (temporomandibular joint syndrome) Disposition: HOME SELF-CARE Condition: Stable Instructions (If sedation given, give patient instructions): Temporomandibular Disorder (ED) Additional Instructions: Please follow up with your primary care doctor in 2-4 days for medication refill. You should also see a dentist for your chronic pain. Return to the emergency room for any new worsening symptoms Prescriptions: Celecoxib [CeleBREX] 200 mg PO BID #10 capsule traMADol HCl [Ultram] 50 mg PO Q6H PRN #12 tab PRN Reason: Pain Is patient prescribed a controlled substance at d/c from ED?: Yes When asked, does pt state using other controlled substances?: No If prescribed controlled substance>3 days was MAPS reviewed?: Prescribed <3 Days If opioid is for acute pain is fill amount 7 days or less?: Yes If Rx opioid, was Start Talking consent form obtained?: No Referrals: Veena Bynum DO [Primary Care Provider] - 1-2 days Time of Disposition: 08:15
== END 2019-06-23 08:19 | disposition home or self-care (01) ==
LOC: EC 07:23
DX: M26.601 Right temporomandibular joint disorder, unspecified (principal); K21.9 Gastro-esophageal reflux disease without esophagitis; I10 Essential (primary) hypertension; M19.90 Unspecified osteoarthritis, unspecified site; G40.909 Epilepsy, unspecified, not intractable, without status epilepticus; F41.9 Anxiety disorder, unspecified; F32.9 Major depressive disorder, single episode, unspecified; F17.200 Nicotine dependence, unspecified, uncomplicated; G47.33 Obstructive sleep apnea (adult) (pediatric); Z99.89 Dependence on other enabling machines and devices; Z79.1 Long term (current) use of non-steroidal anti-inflammatories (NSAID); Z79.899 Other long term (current) drug therapy; Z88.1 Allergy status to other antibiotic agents; Z88.8 Allergy status to other drugs, medicaments and biological substances
CPT/HCPCS: 99283; 96372; J1885

== ENCOUNTER 2019-10-11 13:56 | Inpatient (IN) | payer MEDICAID, OTHER ==
[2019-10-11] MEDS ORDERED: SODIUM CHLORIDE 0.9% 500 ML 500 ML IV STA (14:06)
[2019-10-11] MEDS ORDERED: PANTOPRAZOLE 40 MG/10 ML VIAL IVP STA (14:07)
[2019-10-11] MEDS ORDERED: MORPHINE SULFATE 4 MG/ML SYRINGE IVP STA (14:21)
[2019-10-11] MEDS ORDERED: LORazepam 2 MG/ML INJ IV STA (14:21)
[2019-10-11 14:23] LABS: Basophils % (A) 1 %; Eosinophils # (A) 0.1 k/uL (0-0.7); Eosinophils % (A) 1 %; HCT 48.1 % (39.0-53.0); HGB 16.2 gm/dL (13.0-17.5); Lymphocytes # (A) 2.1 k/uL (1.0-4.8); Lymphocytes % (A) 24 %; MCH 30.2 pg (25.0-35.0); MCHC 33.6 g/dL (31.0-37.0); MCV 89.9 fL (80.0-100.0); Mean Platelet Volume 7.1; Monocytes # (A) 0.3 k/uL (0-1.0); Monocytes % (A) 4 %; Neutrophils # (A) 5.9 k/uL (1.3-7.7); Neutrophils % (A) 69 %; Platelet Count 192 k/uL (150-450); RBC 5.35 m/uL (4.30-5.90); RDW 14.1 % (11.5-15.5); WBC 8.6 k/uL (3.8-10.6)
--- NOTE | 2019-10-11 14:24 | ED ---
General Adult HPI - General Chief complaint: Chest Pain Stated complaint: Vomiting, Chest Pain, Alcohol Time Seen by Provider: 10/11/19 14:01 Source: patient Mode of arrival: ambulatory Limitations: no limitations - History of Present Illness Initial comments: 44-year-old male presenting for evaluation of abdominal pain and chest pain. Symptoms have been present on and off for the past several days and his had these symptoms in the past related to excessive alcohol consumption. He states he has been drinking heavily over the last one month after losing his job. He states he is drinking a fifth of vodka daily. He states he drank this morning but didn't have an episode of vomiting. He states the pain is epigastric, substernal and is a burning sensation up into his throat. Denies history of CAD. - Related Data Home Medications Medication Instructions Recorded Confirmed ALPRAZolam [Xanax] 1 mg PO BID PRN 01/03/19 03/04/19 Acetaminophen Tab [Tylenol] 1,000 mg PO Q6HR MDD PAIN 01/03/19 03/04/19 Albuterol Inhaler (Mhu) [Ventolin 1 - 2 puff INHALATION RT-Q6H PRN 01/03/19 03/04/19 Hfa Inhaler (Mhu)] Ibuprofen [Motrin Ib] 600 mg PO Q6H PRN 01/03/19 03/04/19 Losartan Potassium 50 mg PO DAILY 01/03/19 03/04/19 Pantoprazole Sodium 40 mg PO DAILY 01/03/19 03/04/19 Gabapentin [Neurontin] 600 mg PO TID 03/04/19 03/04/19 traZODone HCL [Desyrel] 100 mg PO HS 03/04/19 03/04/19 Previous Rx's Medication Instructions Recorded Doxycycline [Vibramycin] 100 mg PO BID 5 Days #10 capsule 03/05/19 Celecoxib [CeleBREX] 200 mg PO BID #10 capsule 06/23/19 traMADol HCl [Ultram] 50 mg PO Q6H PRN #12 tab 06/23/19 Allergies Allergy/AdvReac Type Severity Reaction Status Date / Time Cephalosporins Allergy Severe Anaphylaxis Verified 10/11/19 14:01 diphenhydramine HCl Allergy Severe Anaphylaxis Verified 10/11/19 14:01 [From Benadryl] divalproex sodium Allergy Severe Anaphylaxis Verified 10/11/19 14:01 [From Depakote] ceftriaxone [From Rocephin] Allergy Unknown Verified 10/11/19 14:01 cephalexin [From Keflex] Allergy Unknown Verified 10/11/19 14:01 lisinopril Allergy Unknown Verified 10/11/19 14:01 Review of Systems ROS Statement: Those systems with pertinent positive or pertinent negative responses have been documented in the HPI. ROS Other: All systems not noted in ROS Statement are negative. Past Medical History Past Medical History: GERD/Reflux, GI Bleed, Hypertension, Osteoarthritis (OA), Pneumonia, Seizure Disorder, Sleep Apnea/CPAP/BIPAP Additional Past Medical History / Comment(s): Occasional bilateral pedal edema if stands long, arthritis possibly in back/ribs, MILIND without device, ETOH abuse, alcoholic seizures/blackouts/fainting, alcoholic hepatitis, alcoholic gastritis, upper GI bleed, hypomagnesemia, spinal stenosis/herniated disc with surgery, bilateral varicose veins, hemorrhoids History of Any Multi-Drug Resistant Organisms: None Reported Past Surgical History: Appendectomy, Back Surgery, Tonsillectomy Additional Past Surgical History / Comment(s): Laminectomy, discectomy L5-S1, EGD Past Anesthesia/Blood Transfusion Reactions: Motion Sickness Past Psychological History: Anxiety, Depression Smoking Status: Light tobacco smoker Past Alcohol Use History: Abuse, Daily Past Drug Use History: None Reported - Past Family History Father Family Medical History: Cancer, Dementia, Neurologic Disorder Additional Family Medical History / Comment(s): melanoma, parkinsons Mother Family Medical History: Hypertension, Musculoskeletal Disorder, Neurologic Disorder, Osteoarthritis (OA) Additional Family Medical History / Comment(s): Mother of motor neuron disease at the age of 78yrs. General Exam Limitations: no limitations General appearance: alert, in no apparent distress Head exam: Present: atraumatic, normocephalic Eye exam: Present: normal appearance, PERRL ENT exam: Present: mucous membranes dry Neck exam: Present: normal inspection. Absent: tenderness, meningismus Respiratory exam: Present: normal lung sounds bilaterally. Absent: respiratory distress, wheezes Cardiovascular Exam: Present: normal rhythm, tachycardia GI/Abdominal exam: Present: soft, tenderness (Epigastric tenderness) Extremities exam: Present: normal inspection, normal capillary refill. Absent: pedal edema, calf tenderness Neurological exam: Present: alert, oriented X3, CN II-XII intact. Absent: motor sensory deficit Psychiatric exam: Present: anxious Skin exam: Present: warm, dry, intact. Absent: cyanosis, diaphoretic Course Vital Signs 10/11/19 13:58 Temperature 98.1 F Pulse Rate 91 Respiratory 20 Rate Blood Pressure 155/90 O2 Sat by Pulse 97 Oximetry EKG Findings - EKG Comments: EKG Findings:: EKG: Sinus tachycardia, rate of 106, LA interval 182, QRS duration 100, QTC 491, no ST segment elevation is definitively seen, there is very poor baseline secondary to tremor artifact. Medical Decision Making - Medical Decision Making 44-year-old male presenting with alcohol withdrawal, complaint of chest pain, suspect the pain is related to gastritis from alcohol abuse. He has an alcohol level of 293. Chest x-ray is negative for any acute cardiopulmonary disease. He has a normal CBC, normal CMP with the exception of an elevated AST secondary to alcohol abuse. Initial troponin is negative He will be admitted for serial cardiac enzymes, benzodiazepines for alcohol withdrawal and rehydration. Case is discussed with Dr. Arias who will admit. - Lab Data Result diagrams: 10/11/19 14:14 10/11/19 14:14 Lab Results 10/11/19 10/11/19 10/11/19 Range/Units 14:14 14:14 14:14 WBC 8.6 (3.8-10.6) k/uL RBC 5.35 (4.30-5.90) m/uL Hgb 16.2 (13.0-17.5) gm/dL Hct 48.1 (39.0-53.0) % MCV 89.9 (80.0-100.0) fL MCH 30.2 (25.0-35.0) pg MCHC 33.6 (31.0-37.0) g/dL RDW 14.1 (11.5-15.5) % Plt Count 192 (150-450) k/uL Neutrophils % 69 % Lymphocytes % 24 % Monocytes % 4 % Eosinophils % 1 % Basophils % 1 % Neutrophils # 5.9 (1.3-7.7) k/uL Lymphocytes # 2.1 (1.0-4.8) k/uL Monocytes # 0.3 (0-1.0) k/uL Eosinophils # 0.1 (0-0.7) k/uL Basophils # 0.0 (0-0.2) k/uL PT 9.5 (9.0-12.0) sec INR 0.9 (<1.2) APTT 21.9 L (22.0-30.0) sec Sodium 139 (137-145) mmol/L Potassium 5.1 (3.5-5.1) mmol/L Chloride 95 L (98-107) mmol/L Carbon Dioxide 22 (22-30) mmol/L Anion Gap 22 mmol/L BUN 15 (9-20) mg/dL Creatinine 0.84 (0.66-1.25) mg/dL Est GFR (CKD-EPI)AfAm >90 (>60 ml/min/1.73 sqM) Est GFR (CKD-EPI)NonAf >90 (>60 ml/min/1.73 sqM) Glucose 82 (74-99) mg/dL Calcium 9.1 (8.4-10.2) mg/dL Magnesium 1.6 (1.6-2.3) mg/dL Total Bilirubin 1.5 H (0.2-1.3) mg/dL AST 111 H (17-59) U/L ALT 37 (4-49) U/L Alkaline Phosphatase 101 (38-126) U/L Total Protein 8.7 H (6.3-8.2) g/dL Albumin 5.4 H (3.5-5.0) g/dL Amylase 67 (30-110) U/L Lipase 108 (23-300) U/L Serum Alcohol 293 H* mg/dL Disposition Clinical Impression: Dehydration, Alcohol addiction, Gastritis, Chest pain, Alcohol withdrawal Disposition: ADMITTED IP TO THIS [facility] Condition: Stable Is patient prescribed a controlled substance at d/c from ED?: No Referrals: Veena Bynum DO [Primary Care Provider] - 1-2 days Decision to Admit Reason: Admit from EC Decision Date: 10/11/19 Decision Time: 15:07
[2019-10-11 14:35] LABS: ALT 37 U/L (4-49); AST 111 U/L (17-59); African American GFR (CKD) >90 (>60 ml/min/1.73 sqM); Albumin 5.4 g/dL (3.5-5.0); Alkaline Phosphatase 101 U/L (38-126); Amylase 67 U/L (30-110); Anion Gap 22 mmol/L; Blood Urea Nitrogen 15 mg/dL (9-20); Calcium 9.1 mg/dL (8.4-10.2); Carbon Dioxide 22 mmol/L (22-30); Chloride 95 mmol/L (98-107); Glucose 82 mg/dL (74-99); Magnesium 1.6 mg/dL (1.6-2.3); Non-African American GFR(CKD) >90 (>60 ml/min/1.73 sqM); Potassium 5.1 mmol/L (3.5-5.1); Sodium 139 mmol/L (137-145); Total Bilirubin 1.5 mg/dL (0.2-1.3); Total Protein 8.7 g/dL (6.3-8.2)
[2019-10-11 14:38] LABS: Alcohol 293 mg/dL
[2019-10-11] MEDS ORDERED: ONDANSETRON 4 MG/2 ML VIAL IVP STA (14:38)
--- NOTE | 2019-10-11 14:43 | XR ---
EXAMINATION TYPE: XR chest 2V DATE OF EXAM: 10/11/2019 COMPARISON: 03/04/2019 INDICATION: Chest pain and vomiting TECHNIQUE: Frontal and lateral views of the chest are obtained. FINDINGS: The heart size is normal. The pulmonary vasculature is normal. The lungs are clear. IMPRESSION: 1. No acute pulmonary process.
[2019-10-11] MEDS ORDERED: THIAMINE 100 MG/ML 2 ML VIAL IM STA (14:52)
[2019-10-11 14:53] LABS: INR 0.9 (<1.2); Prothrombin Time 9.5 sec (9.0-12.0)
[2019-10-11 14:54] LABS: Partial Thromboplastin Time 21.9 sec (22.0-30.0)
[2019-10-11] MEDS ORDERED: ACETAMINOPHEN TAB 325 MG TAB PO PRN (14:55)
[2019-10-11] MEDS ORDERED: NALOXONE 0.4 MG/ML 1 ML VIAL IV PRN (14:55)
[2019-10-11] MEDS ORDERED: MAGNESIUM SULFATE-D5W PMX 1 GM in DEXTROSE/WATER 1 100ML.BAG IVPB ONE (15:08)
[2019-10-11] MEDS ORDERED: ASPIRIN 325 MG TAB PO STA (15:24)
[2019-10-11] MEDS: SODIUM CHLORIDE 0.9% 1,000 ML IV SCH (15:32)
[2019-10-11] MEDS: LORazepam 2 MG/ML INJ IV PRN ×6 (15:44→23:24)
--- NOTE | 2019-10-11 17:37 | HP ---
HISTORY AND PHYSICAL DATE OF SERVICE: 10/11/2019 CHIEF COMPLAINT: Chest pain, vomiting, EtOH. HISTORY OF PRESENT ILLNESS: This is a 44-year-old gentleman with a past medical history of multiple medical problems including GERD, GI bleed, hypertension, history of DJD, seizure disorder, history of appendectomy, history of DJD being followed by Dr. Bynum in the outpatient setting, apparently was recently laid off and apparently the patient was binge drinking after that. The patient was complaining of epigastric pain radiating up the chest and throat and patient came to [facility] and was admitted for further evaluation and treatment. The patient had history of long-standing alcohol intake. The patient apparently fell off the wagon according to him. The initial troponins were negative, but alcohol was found to be 293, gardner virus is negative. Patient admitted for further evaluation and treatment. There is no history of fever, chills or rigors. No history of headache loss of consciousness, seizures. PAST MEDICAL HISTORY: Hypertension, GI bleed, DJD, seizure disorder, sleep apnea. MEDICATIONS: 1. Trazodone 100 mg p.o. q.h.s. 2. Ultram 50 mg q.6 p.r.n. 3. Protonix 40 mg p.o. daily. 4. Losartan 50 mg p.o. daily. 5. Motrin 600 mg q.6 p.r.n. 6. Neurontin 600 mg p.o. t.i.d. 7. Vibramycin 100 mg p.o. b.i.d. 8. Celebrex 200 mg p.o. b.i.d. 9. Albuterol. 10.Tylenol. 11.Xanax. ALLERGIES: CEPHALOSPORIN, DIPHENHYDRAMINE, DEPAKOTE, ROCEPHIN, KEFLEX, LISINOPRIL. FAMILY HISTORY: History of cancer, dementia, melanoma, Parkinson's. SOCIAL HISTORY: History of light smoking, history of alcohol as mentioned earlier. The patient drinks up to a pint. REVIEW OF SYSTEMS: ENT: No diminished hearing or vision. CARDIOVASCULAR: As mentioned earlier. GI: As mention earlier. : No dysuria. NERVOUS SYSTEM: No numbness or weakness, otherwise as mentioned earlier. ALLERGY/IMMUNOLOGY: No asthma or hayfever. MUSCULOSKELETAL: As mentioned earlier. HEMATOLOGY/ONCOLOGY: No history of anemia. ENDOCRINE: No history of diabetes or hypothyroid. CONSTITUTIONAL: As mentioned earlier. DERMATOLOGY: Negative. RHEUMATOLOGY: Negative. PSYCHIATRY: As mentioned earlier. PHYSICAL EXAMINATION: Patient is alert and oriented x3. Pulse 92, blood pressure 150/96, respiration 18, temperature 98.1, pulse ox 98% on 2 L. HEENT: Conjunctivae normal. Oral mucosa moist. NECK: No jugular venous distention. No thyroid enlargement. No carotid bruit. CARDIOVASCULAR SYSTEM: S1, S2, muffled. RESPIRATION: Breath sounds diminished at the bases, no rhonchi, no crackles. ABDOMEN: Soft, nontender. No mass palpable. LEGS: No edema, no swelling. NERVOUS SYSTEM: Higher functions as mentioned earlier. Moves all 4 limbs. No focal motor or sensory deficits. SKIN: No ulcer, rash, bleeding. JOINTS: No active deforming arthropathy. LABS: CBC within normal limits. Chloride is 95, total bilirubin is 1.5, albumin is 5.4. ASSESSMENT: 1. Chest pain, possible unstable angina, possible gastroesophageal reflux disease. 2. Dehydration. 3. Acute alcohol intoxication. 4. Increased bilirubin, AST. Mild alcoholic hepatitis. 5. History of GERD. 6. Hypertension. 7. History of DJD. 8. History of pneumonia. 9. Seizure disorder. 10.Sleep apnea. 11.History of alcoholic seizures. 12.History of hypomagnesemia. 13.History of back surgery, DJD. 14.History of anxiety, depression. 15.History of nicotine dependence. 16.FULL CODE. 17.Obesity with a body mass index of 37.6. RECOMMENDATION: In this 44-year-old gentleman who presented with multiple complex medical issues, at this time, will monitor the patient closely. Continue with the current management and WA protocol. Cardiology consultation. Rule out myocardial infarction. Resume the home medications. Prognosis guarded because of multiple complex medical issues. Further recommendations to follow A copy will be forwarded to Dr. Bynum who is the primary physician. See orders for details. MMODL / IJN: [id number] /
[2019-10-11] MEDS: NICOTINE 14MG/24HR PATCH TRANSDERM SCH (18:19)
[2019-10-11] MEDS: THIAMINE 100 MG TAB PO SCH (18:19)
[2019-10-11] MEDS: MORPHINE SULFATE 4 MG/ML SYRINGE IV PRN ×2 (18:20→23:18)
[2019-10-11] MEDS ORDERED: ALBUTEROL HFA INHALER INHALATION PRN (18:52)
[2019-10-11] MEDS: PANTOPRAZOLE 40 MG/10 ML VIAL IVP SCH (20:41)
[2019-10-11] MEDS: ONDANSETRON 4 MG/2 ML VIAL IVP PRN (20:41)
[2019-10-11] MEDS: GABAPENTIN 300 MG CAP PO SCH (20:42)
[2019-10-11] MEDS: HYDROcodone/APAP 5-325MG 1 EACH TAB PO PRN (20:42)
[2019-10-12 02:32] LABS: Basophils % (A) 0 %; Eosinophils # (A) 0.1 k/uL (0-0.7); Eosinophils % (A) 1 %; HCT 45.2 % (39.0-53.0); HGB 14.4 gm/dL (13.0-17.5); Lymphocytes % (A) 30 %; MCH 29.1 pg (25.0-35.0); MCV 91.1 fL (80.0-100.0); Mean Platelet Volume 7.2; Monocytes # (A) 0.3 k/uL (0-1.0); Monocytes % (A) 3 %; Neutrophils # (A) 6.5 k/uL (1.3-7.7); Neutrophils % (A) 64 %; Platelet Count 156 k/uL (150-450); RBC 4.96 m/uL (4.30-5.90); RDW 14.2 % (11.5-15.5); WBC 10.1 k/uL (3.8-10.6)
[2019-10-12 02:36] LABS: African American GFR (CKD) >90 (>60 ml/min/1.73 sqM); Anion Gap 15 mmol/L; Blood Urea Nitrogen 16 mg/dL (9-20); Calcium 8.7 mg/dL (8.4-10.2); Carbon Dioxide 25 mmol/L (22-30); Chloride 94 mmol/L (98-107); Glucose 79 mg/dL (74-99); Non-African American GFR(CKD) >90 (>60 ml/min/1.73 sqM); Potassium 4.6 mmol/L (3.5-5.1); Sodium 134 mmol/L (137-145)
[2019-10-12] MEDS: LORazepam 2 MG/ML INJ IV PRN ×7 (02:39→20:26)
[2019-10-12] MEDS: ONDANSETRON 4 MG/2 ML VIAL IVP PRN ×2 (05:28→15:11)
[2019-10-12] MEDS: MORPHINE SULFATE 4 MG/ML SYRINGE IV PRN ×5 (05:28→22:06)
[2019-10-12] MEDS: SODIUM CHLORIDE 0.9% 1,000 ML IV SCH ×3 (08:30→15:12)
[2019-10-12] MEDS: THIAMINE 100 MG TAB PO SCH ×2 (08:31→17:26)
[2019-10-12] MEDS: FLUTICASONE 50MCG/SPRAY NASAL 16GM EA NOSTRIL SCH (08:31)
[2019-10-12] MEDS: LOSARTAN 50 MG TAB PO SCH (08:31)
[2019-10-12] MEDS: GABAPENTIN 300 MG CAP PO SCH ×3 (08:31→20:26)
[2019-10-12] MEDS: NICOTINE 14MG/24HR PATCH TRANSDERM SCH (08:31)
[2019-10-12] MEDS: PANTOPRAZOLE 40 MG/10 ML VIAL IVP SCH ×2 (08:31→20:26)
[2019-10-12] MEDS: ASPIRIN 325 MG TAB PO SCH (08:31)
--- NOTE | 2019-10-12 10:12 | P.CRDCN ---
History of Present Illness Consult date: 10/12/19 Consult reason: chest pain Chief complaint: Chest pain History of present illness: This is a 45-year-old gentleman with documented history of hypertension, EtOH abuse, he apparently drinks a fifth of 5 Daily. Patient apparently recently lost his job, and started drinking significant amounts of alcohol again. He presented to the emergency room with symptoms of abdominal discomfort, he was also complaining of a deep ache in the center of his chest. He states that the symptoms started after several episodes of vomiting. His EKG on presentation here showed a sinus tachycardia with no acute changes. Chest x- ray was normal. Troponins 0.021, 0.0-4, 0.026. EtOH level on admission to 93 and gardner virus was negative. Patient did undergo an echocardiogram with Doppler study approximately one year ago which revealed a normal left ventricular systolic function. His blood pressure this morning is 162/80 with a heart rate of 90 to low 100s, 96% on room air. Past Medical History Past Medical History: GERD/Reflux, GI Bleed, Hypertension, Osteoarthritis (OA), Pneumonia, Seizure Disorder, Sleep Apnea/CPAP/BIPAP Additional Past Medical History / Comment(s): Occasional bilateral pedal edema if stands long, arthritis possibly in back/ribs, MILIND without device, ETOH abuse, alcoholic seizures/blackouts/fainting, alcoholic hepatitis, alcoholic gastritis, upper GI bleed, hypomagnesemia, spinal stenosis/herniated disc with surgery, bilateral varicose veins, hemorrhoids History of Any Multi-Drug Resistant Organisms: None Reported Past Surgical History: Appendectomy, Back Surgery, Tonsillectomy Additional Past Surgical History / Comment(s): bilateral discectomy, discectomy L5-S1, EGD Past Anesthesia/Blood Transfusion Reactions: Motion Sickness Past Psychological History: Anxiety, Depression Additional Psychological History / Comment(s): pt lives with roommate, no pets. Pt uses no assistive device. He drives. Smoking Status: Former smoker Past Alcohol Use History: Abuse, Daily Additional Past Alcohol Use History / Comment(s): Pt is recovering alcoholic and states he "recently fell off the wagon." He has been in rehab in the past for ETOH abuse. Pt states he started on and off smoking as a young adult and has more often been a nonsmoker. He states a pack might last him 3-4 days. Past Drug Use History: None Reported Additional Drug Use History / Comment(s): Pt smoked marijuana on occasion in the past. - Past Family History Father Family Medical History: Cancer, Dementia, Neurologic Disorder Additional Family Medical History / Comment(s): melanoma, parkinsons Mother Family Medical History: Hypertension, Musculoskeletal Disorder, Neurologic Disorder, Osteoarthritis (OA) Additional Family Medical History / Comment(s): Mother of motor neuron disease at the age of 78yrs. Medications and Allergies Home Medications Medication Instructions Recorded Confirmed Type ALPRAZolam [Xanax] 1 mg PO BID PRN 01/03/19 10/11/19 History Losartan Potassium 50 mg PO DAILY 01/03/19 10/11/19 History Pantoprazole Sodium 40 mg PO DAILY PRN 01/03/19 10/11/19 History Gabapentin [Neurontin] 300 mg PO TID 03/04/19 10/11/19 History traZODone HCL [Desyrel] 100 mg PO HS PRN 03/04/19 10/11/19 History Albuterol Inhaler [Ventolin Hfa 1 - 2 puff INHALATION RT-QID PRN 10/11/19 10/11/19 History Inhaler] Celecoxib [CeleBREX] 200 mg PO DAILY 10/11/19 10/11/19 History Fluticasone Nasal [place] [Flonase 2 spray EA NOSTRIL DAILY 10/11/19 10/11/19 History Nasal [place]] Varenicline [Chantix Starter Pack] See Taper PO DIRECTED 10/11/19 10/11/19 History Allergies Allergy/AdvReac Type Severity Reaction Status Date / Time Cephalosporins Allergy Severe Anaphylaxis Verified 10/11/19 17:30 diphenhydramine HCl Allergy Severe Anaphylaxis Verified 10/11/19 17:30 [From Benadryl] divalproex sodium Allergy Severe Anaphylaxis Verified 10/11/19 17:30 [From Depakote] ceftriaxone [From Rocephin] Allergy Unknown Verified 10/11/19 17:30 cephalexin [From Keflex] Allergy Unknown Verified 10/11/19 17:30 lisinopril Allergy Unknown Verified 10/11/19 17:30 Physical Exam Vitals: Vital Signs Temp Pulse Pulse Resp BP BP Pulse Ox 10/12/19 08:00 98.3 F 111 H 18 168/81 95 10/12/19 04:00 98.2 F 97 20 163/87 96 10/11/19 23:46 98.1 F 92 18 151/77 10/11/19 20:51 98.2 F 90 20 154/77 10/11/19 17:27 98.5 F 95 18 136/90 98 10/11/19 15:39 97.8 F 109 H 18 143/98 95 10/11/19 15:29 92 18 152/96 96 10/11/19 13:58 98.1 F 91 20 155/90 97 Intake and Output 10/11/19 10/12/19 10/12/19 22:59 06:59 14:59 Other: Voiding Method Toilet Toilet Toilet # Voids 1 Weight 129.228 kg 103 kg PHYSICAL EXAMINATION: GENERAL: 44 year old gentleman in no acute distress at the time of examination HEENT: Head is atraumatic, normocephalic. Pupils equal, round. Sclera anicteric. Conjunctiva are clear. Mucous membranes of the mouth are moist. Neck is supple. There is no elevated jugular venous pressure. No carotid bruit is heard. HEART EXAMINATION: Heart S1, S2 normal. No murmur or gallop heard. CHEST EXAMINATION: Lungs are clear to auscultation and precussion. No chest wall tenderness is noted on palpation or with deep breathing. ABDOMEN: Soft, nontender. Bowel sounds are heard. No organomegaly noted. EXTREMITIES: 2+ peripheral pulses with no evidence of peripheral edema and no calf tenderness noted. NEUROLOGIC patient is awake, alert and oriented 3 . . Results 10/12/19 02:15 10/12/19 02:15 Cardiac Enzymes 10/11/19 10/11/19 10/11/19 Range/Units 14:14 14:14 20:26 AST 111 H (17-59) U/L Troponin I 0.021 0.024 (0.000-0.034) ng/mL 10/12/19 Range/Units 02:15 AST (17-59) U/L Troponin I 0.026 (0.000-0.034) ng/mL Coagulation 10/11/19 Range/Units 14:14 PT 9.5 (9.0-12.0) sec APTT 21.9 L (22.0-30.0) sec CBC 10/11/19 10/12/19 Range/Units 14:14 02:15 WBC 8.6 10.1 (3.8-10.6) k/uL RBC 5.35 4.96 (4.30-5.90) m/uL Hgb 16.2 14.4 (13.0-17.5) gm/dL Hct 48.1 45.2 (39.0-53.0) % Plt Count 192 156 (150-450) k/uL Comprehensive Metabolic Panel 10/11/19 10/12/19 Range/Units 14:14 02:15 Sodium 139 134 L (137-145) mmol/L Potassium 5.1 4.6 (3.5-5.1) mmol/L Chloride 95 L 94 L (98-107) mmol/L Carbon Dioxide 22 25 (22-30) mmol/L BUN 15 16 (9-20) mg/dL Creatinine 0.84 0.75 (0.66-1.25) mg/dL Glucose 82 79 (74-99) mg/dL Calcium 9.1 8.7 (8.4-10.2) mg/dL AST 111 H (17-59) U/L ALT 37 (4-49) U/L Alkaline Phosphatase 101 (38-126) U/L Total Protein 8.7 H (6.3-8.2) g/dL Albumin 5.4 H (3.5-5.0) g/dL Current Medications Generic Name Dose Route Start Last Admin Trade Name Freq PRN Reason Stop Dose Admin Acetaminophen 650 mg 10/11/19 14:55 Tylenol Tab PO Q6HR PRN Mild Pain or Fever > 100.5 Hydrocodone Bitart/Acetaminophen 1 each 10/11/19 16:56 10/11/19 20:42 [place] 5-325 PO 1 each Q6HR PRN Administration Pain Albuterol Sulfate 1 - 2 puff 10/11/19 18:52 Ventolin Hfa Inhaler INHALATION RT-QID PRN Shortness Of Breath Aspirin 325 mg 10/12/19 09:00 10/12/19 08:31 Aspirin PO 325 mg DAILY TRAVIS Administration Fluticasone Propionate 2 spray 10/12/19 09:00 10/12/19 08:31 Flonase Nasal [place] EA NOSTRIL 2 spray DAILY TRAVIS Administration Gabapentin 300 mg 10/11/19 22:00 10/12/19 08:31 Neurontin PO 300 mg TID TRAVIS Administration Sodium Chloride 1,000 mls @ 100 mls/hr 10/11/19 15:00 10/12/19 08:30 Saline 0.9% IV 100 mls/hr .Q10H TRAVIS Administration Lorazepam 1 mg 10/11/19 14:52 10/12/19 08:32 Ativan IV 1 mg Q2HR PRN Administration CIWA 8 or 9 Lorazepam 1 mg 10/11/19 14:52 10/12/19 06:03 Ativan IV 1 mg Q1HR PRN Administration CIWA 10 to 15 Lorazepam 2 mg 10/11/19 14:52 10/11/19 20:41 Ativan IV 10/13/19 14:52 2 mg Q10M PRN Administration CIWA 16 or higher Losartan Potassium 50 mg 10/12/19 09:00 10/12/19 08:31 Cozaar PO 50 mg DAILY TRAVIS Administration Morphine Sulfate 4 mg 10/11/19 14:55 10/12/19 09:37 Morphine Sulfate (Inj) IV 4 mg Q4HR PRN Administration Severe Pain Naloxone HCl 0.2 mg 10/11/19 14:55 Narcan IV Q2M PRN Opioid Reversal Nicotine 1 patch 10/11/19 17:00 10/12/19 08:31 Habitrol 14mg/24hr Patch TRANSDERM 1 patch DAILY TRAVIS Administration Ondansetron HCl 4 mg 10/11/19 14:55 10/12/19 05:28 Zofran IVP 4 mg Q8HR PRN Administration Nausea And Vomiting Pantoprazole Sodium 40 mg 10/11/19 21:00 10/12/19 08:31 Protonix IVP 40 mg BID TRAVIS Administration Thiamine HCl 100 mg 10/11/19 17:30 10/12/19 08:31 Vitamin B-1 PO 100 mg BID-W/MEALS TRAVIS Administration Intake and Output 10/11/19 10/12/19 10/12/19 22:59 06:59 14:59 Other: Voiding Method Toilet Toilet Toilet # Voids 1 Weight 129.228 kg 103 kg 10/12/19 02:15 10/12/19 02:15 EKG Interpretations (text) EKG shows a sinus tachycardia with no acute changes Assessment and Plan Plan: Assessment and plan #1 chest pain, atypical for acute coronary syndrome. Troponins 0.02, 0.02, 0.02. EKG shows a sinus tachycardia with no acute changes. #2 EtOH abuse, EtOH level on admission 293. #3 hypertension Plan We will obtain an echocardiogram with Doppler study. Decrease aspirin to 81 mg daily. Continue seawall protocol. Continue losartan 50 mg one tablet by mouth daily. On discharge, we will have the patient follow-up with Dr. Linton in the office. DNP note has been reviewed, I agree with a documented findings and plan of care. Patient was seen and examined.
--- NOTE | 2019-10-12 10:29 | ECHOF ---
Referral Reason:chest pain MEASUREMENTS -------- HEIGHT: 185.4 cm WEIGHT: 103.0 kg BP: 168/81 RVIDd: 3.3 cm (< 3.3) IVSd: 1.1 cm (0.6 - 1.1) LVIDd: 5.5 cm (3.9 - 5.3) LVPWd: 1.1 cm (0.6 - 1.1) IVSs: 1.6 cm LVIDs: 4.0 cm LVPWs: 1.8 cm LA Diam: 3.9 cm (2.7 - 3.8) LAESV Index (A-L): 32.71 ml/m Ao Diam: 3.4 cm (2.0 - 3.7) AV Cusp: 2.2 cm (1.5 - 2.6) MV EXCURSION: 21.475 mm (> 18.000) MV EF SLOPE: 134 mm/s (70 - 150) EPSS: 0.8 cm MV E Behzad: 1.01 m/s MV DecT: 212 ms MV A Behzad: 0.68 m/s MV E/A Ratio: 1.49 FINDINGS -------- Sinus rhythm. This was a technically good study. The left ventricular size is normal. There is borderline concentric left ventricular hypertrophy. Overall left ventricular systolic function is normal with, an EF between 60 - 65 %. The right ventricle is mildly enlarged. LA is midly dilated 29-33ml/m2. The right atrium is normal in size. Interatrial and interventricular septum intact. The aortic valve is trileaflet and appears structurally normal. There is trace mitral regurgitation. The tricuspid valve appears structurally normal. There is no pulmonic regurgitation present. The aortic root size is normal. The inferior vena cava is dilated with no significant inspiratory collapse which is consistent estima velia right atrial pressure of >20 mmHg. There is no pericardial effusion. CONCLUSIONS -------- 1. Sinus rhythm. 2. This was a technically good study. 3. The left ventricular size is normal. 4. There is borderline concentric left ventricular hypertrophy. 5. Overall left ventricular systolic function is normal with, an EF between 60 - 65 %. 6. The right ventricle is mildly enlarged. 7. LA is midly dilated 29-33ml/m2. 8. The right atrium is normal in size. 9. Interatrial and interventricular septum intact. 10. The aortic valve is trileaflet and appears structurally normal. 11. There is trace mitral regurgitation. 12. The tricuspid valve appears structurally normal. 13. There is no pulmonic regurgitation present. 14. The aortic root size is normal. 15. The inferior vena cava is dilated with no significant inspiratory collapse which is consistent es timated right atrial pressure of >20 mmHg. 16. There is no pericardial effusion. [employer] CUSTODIAN: Jackie Bermudez RDCS
[2019-10-12] MEDS ORDERED: Magnesium Replacement Protocol 1 EACH MISC MISCELLANE PRN (12:56)
[2019-10-12] MEDS: MAGNESIUM SULFATE-D5W PMX 1 GM in DEXTROSE/WATER 1 100ML.BAG IVPB SCH ×2 (13:45→15:11)
[2019-10-12] MEDS ORDERED: traZODone HCL 100 MG TAB PO PRN (16:42)
[2019-10-12] MEDS: ALPRAZolam 1 MG TAB PO PRN (17:26)
--- NOTE | 2019-10-12 18:56 | PN ---
PROGRESS NOTE DATE OF SERVICE: 10/12/2019 This 44-year-old gentleman admitted with chest pain also had significant alcohol issues and alcohol withdrawals. Patient also has some severe tremors. Cardiology is following the patient at this time. A 2D echo with Doppler was done with Cardiology which showed ejection fraction about 60% to 65% and some LA dilatation also. Past medical history reviewed. REVIEW OF SYSTEMS: CARDIOVASCULAR SYSTEM: As mentioned earlier. RESPIRATORY SYSTEM: As mentioned earlier. GI: As mentioned earlier. NERVOUS SYSTEM: As mentioned earlier. CURRENT MEDICATIONS: Reviewed. They include: 1. Tylenol 650 q.6 p.r.n. 2. Excelsior 5 mg q.6 p.r.n. 3. Ventolin. 4. Aspirin 320 mg daily. 5. Flonase p.r.n. 6. Neurontin 300 mg p.o. daily. 7. Ativan. 8. Cozaar 50 mg p.o. daily. 9. Magnesium oxide. 10.Narcan. 11.Habitrol 14. 12.Zofran. 13.Protonix. 14.Vitamin B1. Doses are reviewed. PHYSICAL EXAMINATION: Patient is alert, oriented x3. Pulse 80, blood pressure 129/77, respiration 18, temperature 97.9, pulse ox 93% on room air. HEENT: Conjunctivae normal. NECK: No jugular venous distention. CARDIOVASCULAR SYSTEM: S1, S2 muffled. RESPIRATORY SYSTEM: Breath sounds diminished at the bases. A few scattered rhonchi and crackles. Expiratory wheezing also heard. ABDOMEN: Soft, non-tender. No mass palpable. LEGS: No edema. No swelling. NERVOUS SYSTEM: Diffusely weak. Tremors also present. LABS: CBC within normal limits. Sodium is 134. Troponin 0.026. Coronavirus negative. Serum alcohol 293. ASSESSMENT: 1. Chest pain, possible unstable angina, possibly gastroesophageal reflux disease. 2. Acute alcohol intoxication as well as early acute delirium tremens. 3. Change in mental status, metabolic encephalopathy, multifactorial. 4. Dehydration. 5. Increased bilirubin, AST, ALT, alcoholic hepatitis. 6. History of gastroesophageal reflux disease. 7. Hypertension. 8. History of degenerative joint disease. 9. History of pneumonia. 10.History of seizure disorder. 11.History of sleep apnea. 12.History of alcoholic seizures. 13.History of hypomagnesemia. 14.History of back surgery, degenerative joint disease. 15.History of anxiety, depression. 16.History of nicotine dependence. 17.Obesity with body mass index of 30. 18.FULL CODE. RECOMMENDATIONS AND DISCUSSION: In this 44-year-old gentleman who presented with multiple complex medical issues, we will monitor the patient closely. I would recommend continuing CIWA protocol. I also recommend adding clonidine. Otherwise, further workup. Cardiac workup per Cardiology. Patient might need a stress test eventually. Two-D echo noted. Otherwise, supplement vitamins. Prognosis is guarded because of multiple complex medical issues. bank worker and manager of case to evaluate the patient for possible alcohol rehab as well. Once again, the prognosis is guarded because of multiple complex medical issues. Further recommendations to follow. MMODL / IJN: [id number] /
[2019-10-12] MEDS: cloNIDine HCL 0.1 MG TAB PO SCH (20:26)
[2019-10-13] MEDS: ONDANSETRON 4 MG/2 ML VIAL IVP PRN ×2 (02:19→18:58)
[2019-10-13] MEDS: MORPHINE SULFATE 4 MG/ML SYRINGE IV PRN ×4 (03:58→22:16)
[2019-10-13] MEDS: LORazepam 2 MG/ML INJ IV PRN ×6 (03:58→22:53)
[2019-10-13 06:10] LABS: Basophils % (A) 1 %; Eosinophils # (A) 0.1 k/uL (0-0.7); Eosinophils % (A) 2 %; HCT 42.1 % (39.0-53.0); HGB 13.6 gm/dL (13.0-17.5); Lymphocytes # (A) 1.2 k/uL (1.0-4.8); Lymphocytes % (A) 19 %; MCH 30.2 pg (25.0-35.0); MCHC 32.2 g/dL (31.0-37.0); Mean Platelet Volume 7.7; Monocytes # (A) 0.2 k/uL (0-1.0); Monocytes % (A) 4 %; Neutrophils # (A) 4.4 k/uL (1.3-7.7); Neutrophils % (A) 74 %; RBC 4.48 m/uL (4.30-5.90); RDW 13.9 % (11.5-15.5)
[2019-10-13 06:28] LABS: African American GFR (CKD) >90 (>60 ml/min/1.73 sqM); Anion Gap 7 mmol/L; Blood Urea Nitrogen 10 mg/dL (9-20); Calcium 8.6 mg/dL (8.4-10.2); Carbon Dioxide 29 mmol/L (22-30); Chloride 96 mmol/L (98-107); Glucose 81 mg/dL (74-99); Magnesium 1.7 mg/dL (1.6-2.3); Non-African American GFR(CKD) >90 (>60 ml/min/1.73 sqM); Potassium 4.1 mmol/L (3.5-5.1); Sodium 132 mmol/L (137-145)
[2019-10-13 06:29] LABS: Platelet Count 81 k/uL (150-450)
[2019-10-13] MEDS: ASPIRIN 325 MG TAB PO SCH (09:14)
[2019-10-13] MEDS: HYDROcodone/APAP 5-325MG 1 EACH TAB PO PRN ×2 (09:14→20:18)
[2019-10-13] MEDS: GABAPENTIN 300 MG CAP PO SCH ×3 (09:15→20:14)
[2019-10-13] MEDS: THIAMINE 100 MG TAB PO SCH ×2 (09:15→16:05)
[2019-10-13] MEDS: cloNIDine HCL 0.1 MG TAB PO SCH ×2 (09:15→20:14)
[2019-10-13] MEDS: MAGNESIUM SULFATE-D5W PMX 1 GM in DEXTROSE/WATER 1 100ML.BAG IVPB SCH ×2 (09:16→10:23)
[2019-10-13] MEDS: PANTOPRAZOLE 40 MG/10 ML VIAL IVP SCH ×2 (09:17→20:14)
[2019-10-13] MEDS: NICOTINE 14MG/24HR PATCH TRANSDERM SCH (09:17)
[2019-10-13] MEDS: FLUTICASONE 50MCG/SPRAY NASAL 16GM EA NOSTRIL SCH (10:15)
[2019-10-13] MEDS: LOSARTAN 50 MG TAB PO SCH (11:24)
--- NOTE | 2019-10-13 11:47 | P.PN ---
Subjective Progress Note Date: 10/13/19 This is a 45-year-old gentleman with documented history of hypertension, EtOH abuse, he apparently drinks a fifth of 5 Daily. Patient apparently recently lost his job, and started drinking significant amounts of alcohol again. He presented to the emergency room with symptoms of abdominal discomfort, he was also complaining of a deep ache in the center of his chest. He states that the symptoms started after several episodes of vomiting. His EKG on presentation here showed a sinus tachycardia with no acute changes. Chest x- ray was normal. Troponins 0.021, 0.0-4, 0.026. EtOH level on admission to and [facility] was negative. Patient did undergo an echocardiogram with Doppler study approximately one year ago which revealed a normal left ventricular systolic function. His blood pressure this morning is 162/80 with a heart rate of 90 to low 100s, 96% on room air. 10/13/2019 Patient was seen and examined this morning, complaining of some esophageal discomfort this morning especially when he swallows or coughs. Denies any chest pressure or heaviness. Echocardiogram with Doppler study was performed which revealed a normal left ventricular systolic function. The pain he is experiencing this morning is noncardiac in nature. He is requesting morphine for relief of symptoms. Blood pressure 128/70 with a heart rate in the 60s, 95% on room air. White blood cell count 6.0, hemoglobin 13.6, platelet count 81. Sodium 132, potassium 4.1, BUN 10, creatinine 0.6, magnesium 1.7. Objective - Vital Signs Vital signs: Vital Signs Temp 98 F 10/13/19 11:14 Pulse 68 10/13/19 11:14 Resp 16 10/13/19 11:14 BP 129/72 10/13/19 11:14 Pulse Ox 95 10/13/19 11:14 Intake & Output 10/12/19 10/13/19 10/13/19 18:59 06:59 18:59 Intake Total 1120 550 Output Total 1000 1000 1000 Balance 120 -450 -1000 Weight 131.5 kg Intake: Intake, IV Titration 1000 Amount Magnesium Sulfate-D5w Pmx 200 1 gm In Dextrose/Water 1 100ml.bag @ 100 mls/hr IVPB Q1H [facility] Rx#: [id number] Sodium Chloride 0.9% 1, 800 000 ml @ 100 mls/hr IV . Q10H [facility] Rx#:[id number] Oral 120 550 Output: Urine 1000 1000 1000 Straight 400 Other: Voiding Method Toilet Toilet Toilet # Voids 1 # Bowel Movements 1 - Exam PHYSICAL EXAMINATION: GENERAL: 44 year old gentleman in no acute distress at the time of examination HEENT: Head is atraumatic, normocephalic. Pupils equal, round. Sclera anicteric. Conjunctiva are clear. Mucous membranes of the mouth are moist. Neck is supple. There is no elevated jugular venous pressure. No carotid br uit is heard. HEART EXAMINATION: Heart S1, S2 normal. No murmur or gallop heard. CHEST EXAMINATION: Lungs are clear to auscultation and precussion. No chest wall tenderness is noted on palpation or with deep breathing. Epigastric discomfort with swallowing and coughing. ABDOMEN: Soft, nontender. Bowel sounds are heard. No organomegaly noted. EXTREMITIES: 2+ peripheral pulses with no evidence of peripheral edema and no calf tenderness noted. NEUROLOGIC patient is awake, alert and oriented 3 . . - Labs CBC & Chem 7: 10/13/19 05:31 10/13/19 05:31 Labs: Abnormal Lab Results - Last 24 Hours (Table) 10/13/19 10/13/19 Range/Units 05:31 05:31 Plt Count 81 L (150-450) k/uL Sodium 132 L (137-145) mmol/L Chloride 96 L (98-107) mmol/L Assessment and Plan Plan: Assessment and plan #1 chest pain, atypical for acute coronary syndrome. Troponins 0.02, 0.02, 0.02. EKG shows a sinus tachycardia with no acute changes. Echocardiogram with Doppler study reveals a normal left ventricular systolic function. #2 EtOH abuse, EtOH level on admission 293. #3 hypertension Plan From cardiology's perspective, the patient may be able to be discharged home o nce cleared by primary. We will make a follow-up appointment in the office with Dr. Linton post discharge. DNP note has been reviewed, I agree with a documented findings and plan of care. Patient was seen and examined.
[2019-10-13] MEDS ORDERED: MULTIVITAMINS, THERA 1 EACH TAB PO SCH (12:00)
[2019-10-13] MEDS ORDERED: FOLIC ACID 1 MG TAB PO SCH (12:00)
[2019-10-13] MEDS ORDERED: LORazepam 2 MG/ML INJ IV PRN (14:05)
[2019-10-13] MEDS: SODIUM CHLORIDE 0.9% 1,000 ML IV SCH ×2 (15:22→20:14)
--- NOTE | 2019-10-13 16:24 | PN ---
PROGRESS NOTE DATE OF SERVICE: 10/13/2019 This 44-year-old gentleman who was admitted with chest pain with possible unstable angina also had epigastric pain. Cardiology is following the patient also closely. Patient had acute alcohol intoxication. The patient is still tremulous, but weakness is improving. No chest pain. No fever. No cough. The 2D echo with Doppler showed normal ejection fraction. PHYSICAL EXAMINATION: Alert and oriented x3. Pulse 68, blood pressure 129/72, respirations 16, temperature 98 degrees, pulse ox 94% on room air. HEENT: Conjunctivae normal. NECK: No jugular venous distention. CARDIOVASCULAR SYSTEM: S1, S2 muffled. RESPIRATORY SYSTEM: Breath sounds diminished at the bases. A few scattered rhonchi. No crackles. ABDOMEN: Soft, non-tender. LEGS: No edema. No swelling. NERVOUS SYSTEM: No focal deficit. LABS: CBC within normal limits. Sodium 132. Alcohol noted at 293. ASSESSMENT: 1. Chest pain, possible unstable angina, possible gastroesophageal reflux disease. 2. Acute alcohol intoxication as well as acute delirium tremens. 3. Change in mental status, metabolic encephalopathy, multifactorial, acute. 4. Dehydration, present on admission. 5. Increased bilirubin, AST, ALT; alcoholic hepatitis. 6. History of gastroesophageal reflux disease. 7. Hypertension. 8. History of degenerative joint disease. 9. History of pneumonia. 10.History of seizure disorder. 11.Sleep apnea. 12.Alcoholic seizure. 13.History hypomagnesemia. 14.History of back surgery, degenerative joint disease. 15.History of anxiety, depression. 16.History of nicotine dependence. 17.Obesity with body mass index of 30. 18.FULL CODE. RECOMMENDATIONS AND DISCUSSION: I recommend to continue current medications, continue symptomatic treatment. Continue CIWA protocol. Increase ambulation. Otherwise, we will monitor the blood pressure closely. Continue the clonidine. Otherwise, symptomatic treatment of the pain. Once the patient is stable, the patient will be discharged after cardiology clearance. Prognosis once again is guarded. Further recommendations to follow. MMODL / IJN: [id number] /
[2019-10-13] MEDS: ALPRAZolam 1 MG TAB PO PRN (20:13)
[2019-10-13 23:27] VITALS: RESP 18
[2019-10-14] MEDS: LORazepam 2 MG/ML INJ IV PRN ×2 (02:47→09:07)
[2019-10-14] MEDS: THIAMINE 100 MG TAB PO SCH (06:04)
[2019-10-14 07:44] LABS: Basophils % (A) 0 %; Eosinophils # (A) 0.2 k/uL (0-0.7); Eosinophils % (A) 3 %; HGB 12.2 gm/dL (13.0-17.5); Lymphocytes # (A) 1.9 k/uL (1.0-4.8); Lymphocytes % (A) 38 %; MCHC 30.6 g/dL (31.0-37.0); MCV 94.9 fL (80.0-100.0); Mean Platelet Volume 8.5; Monocytes # (A) 0.3 k/uL (0-1.0); Monocytes % (A) 5 %; Neutrophils # (A) 2.5 k/uL (1.3-7.7); Neutrophils % (A) 51 %; RBC 4.21 m/uL (4.30-5.90); WBC 4.8 k/uL (3.8-10.6)
[2019-10-14 07:49] LABS: Platelet Count 78 k/uL (150-450)
[2019-10-14 07:57] LABS: African American GFR (CKD) >90 (>60 ml/min/1.73 sqM); Anion Gap 9 mmol/L; Blood Urea Nitrogen 8 mg/dL (9-20); Calcium 8.2 mg/dL (8.4-10.2); Carbon Dioxide 28 mmol/L (22-30); Chloride 100 mmol/L (98-107); Glucose 84 mg/dL (74-99); Magnesium 1.8 mg/dL (1.6-2.3); Non-African American GFR(CKD) >90 (>60 ml/min/1.73 sqM); Potassium 4.1 mmol/L (3.5-5.1); Sodium 137 mmol/L (137-145)
[2019-10-14] MEDS ORDERED: ALBUTEROL HFA INHALER INHALATION PRN (08:24)
[2019-10-14] MEDS: cloNIDine HCL 0.1 MG TAB PO SCH (09:07)
[2019-10-14] MEDS: NICOTINE 14MG/24HR PATCH TRANSDERM SCH (09:07)
[2019-10-14] MEDS: GABAPENTIN 300 MG CAP PO SCH (09:07)
[2019-10-14] MEDS: LOSARTAN 50 MG TAB PO SCH (09:07)
[2019-10-14] MEDS: PANTOPRAZOLE 40 MG/10 ML VIAL IVP SCH (09:07)
[2019-10-14] MEDS: ASPIRIN 325 MG TAB PO SCH (09:07)
[2019-10-14] MEDS: ALPRAZolam 1 MG TAB PO PRN (09:08)
[2019-10-14] MEDS: HYDROcodone/APAP 5-325MG 1 EACH TAB PO PRN (09:08)
--- NOTE | 2019-10-14 10:48 | P.PN ---
Subjective Progress Note Date: 10/14/19 This is a 45-year-old gentleman with documented history of hypertension, EtOH abuse, he apparently drinks a fifth of 5 Daily. Patient apparently recently lost his job, and started drinking significant amounts of alcohol again. He presented to the emergency room with symptoms of abdominal discomfort, he was also complaining of a deep ache in the center of his chest. He states that the symptoms started after several episodes of vomiting. His EKG on presentation here showed a sinus tachycardia with no acute changes. Chest x- ray was normal. Troponins 0.021, 0.0-4, 0.026. EtOH level on admission to and [facility]ner virus was negative. Patient did undergo an echocardiogram with Doppler study approximately one year ago which revealed a normal left ventricular systolic function. His blood pressure this morning is 162/80 with a heart rate of 90 to low 100s, 96% on room air. 10/13/2019 Patient was seen and examined this morning, complaining of some esophageal discomfort this morning especially when he swallows or coughs. Denies any chest pressure or heaviness. Echocardiogram with Doppler study was performed which revealed a normal left ventricular systolic function. The pain he is experiencing this morning is noncardiac in nature. He is requesting morphine for relief of symptoms. Blood pressure 128/70 with a heart rate in the 60s, 95% on room air. White blood cell count 6.0, hemoglobin 13.6, platelet count 81. Sodium 132, potassium 4.1, BUN 10, creatinine 0.6, magnesium 1.7. 10/14/2019 Patient was seen and examined today by Dr. Kirkland, overall the patient is d oing well, continues to have mild esophageal discomfort. Blood pressure 108/60 with a heart rate in the 60s, 95% on room air. Afebrile. White blood cell count 4.8, hemoglobin 12.2, platelet count 78. Sodium 137, potassium 4.1, BUN 8, creatinine 0.8, magnesium 1.8. Objective - Vital Signs Vital signs: Vital Signs Temp 98.9 F 10/14/19 03:11 Pulse 69 10/14/19 03:11 Resp 18 10/14/19 03:11 BP 108/62 10/14/19 03:11 Pulse Ox 95 10/14/19 03:11 Intake & Output 10/13/19 10/14/19 10/14/19 18:59 06:59 18:59 Intake Total 680 Output Total 2400 750 Balance -1720 -750 Weight 132 kg Intake: IV 200 Magnesium Sulfate-D5w Pmx 200 1 gm In Dextrose/Water 1 100ml.bag @ 100 mls/hr IVPB Q1H [facility] Rx#: [id number] Oral 480 Output: Urine 2400 750 Other: Voiding Method Urinal Urinal # Voids 1 # Bowel Movements 1 - Exam PHYSICAL EXAMINATION: GENERAL: 44 year old gentleman in no acute distress at the time of examination HEENT: Head is atraumatic, normocephalic. Pupils equal, round. Sclera anicteric. Conjunctiva are clear. Mucous membranes of the mouth are moist. Neck is supple. There is no elevated jugular venous pressure. No carotid bruit is heard. HEART EXAMINATION: Heart S1, S2 normal. No murmur or gallop heard. CHEST EXAMINATION: Lungs are clear to auscultation and precussion. No chest wall tenderness is noted on palpation or with deep breathing. Epigastric discomfort with swallowing and coughing. ABDOMEN: Soft, nontender. Bowel sounds are heard. No organomegaly noted. EXTREMITIES: 2+ peripheral pulses with no evidence of peripheral edema and no calf tenderness noted. NEUROLOGIC patient is awake, alert and oriented 3 . . - Labs CBC & Chem 7: 10/14/19 07:12 10/14/19 07:12 Labs: Abnormal Lab Results - Last 24 Hours (Table) 10/14/19 10/14/19 Range/Units 07:12 07:12 RBC 4.21 L (4.30-5.90) m/uL Hgb 12.2 L (13.0-17.5) gm/dL MCHC 30.6 L (31.0-37.0) g/dL Plt Count 78 L (150-450) k/uL BUN 8 L (9-20) mg/dL Calcium 8.2 L (8.4-10.2) mg/dL Assessment and Plan Plan: Assessment and plan #1 chest pain, atypical for acute coronary syndrome. Troponins 0.02, 0.02, 0.02. EKG shows a sinus tachycardia with no acute changes. Echocardiogram with Doppler study reveals a normal left ventricular systolic function. #2 EtOH abuse, EtOH level on admission 293. #3 hypertension Plan From cardiology's perspective, the patient may be able to be discharged home once cleared by primary. We will make a follow-up appointment in the office with Dr. Linton post discharge. DNP note has been reviewed, I agree with a documented findings and plan of care. Patient was seen and examined.
[2019-10-14 12:04] VITALS: BP 132/82; PULSE 80; TEMP 97.8
--- NOTE | 2019-10-14 18:54 | DS ---
DISCHARGE SUMMARY DATE OF SURGERY: 10/14/2019 FINAL DIAGNOSES: 1. Chest pain, possible unstable angina, possible gastroesophageal reflux disease. 2. Acute alcohol intoxication as well as acute delirium tremens. 3. Change in mental status, metabolic encephalopathy, multifactorial, acute. 4. Dehydration, present on admission. 5. Increased bilirubin, AST, ALT, alcoholic hepatitis. 6. History of gastroesophageal reflux disease. 7. Hypertension. 8. History of degenerative joint disease. 9. History of pneumonia. 10.History of seizure disorder. 11.Sleep apnea. 12.Alcoholic seizures. 13.History of hypomagnesemia. 14.History of back surgery, degenerative joint disease. 15.History of anxiety, depression. 16.History of nicotine dependence. 17.Obesity with body mass index of 30. 18.FULL CODE. DISCHARGE DISPOSITION: The patient will be discharged in stable condition with guarded prognosis. Total time taken 35 minutes. HISTORY OF PRESENT ILLNESS: This 44-year-old gentleman with past medical history of multiple medical problems was admitted with chest pain, alcohol intoxication and multiple medical problems. Patient was treated conservatively. DT precautions were done. Alcohol withdrawal symptoms were treated. Otherwise, Cardiology saw the patient and recommended outpatient followup. Myocardial infarction was ruled out. On exam vitals are stable. CARDIOVASCULAR SYSTEM: S1, S2 muffled. ABDOMEN: Soft. NERVOUS SYSTEM: No focal deficit. Minimal tremors present. DISCHARGE ADVICE AND MEDICATIONS: 1. Diet is cardiac. 2. Activity limited until followup. 3. No ethanol. 4. Attend rehab and AA meetings. 5. Follow up with Dr. Bynum in 2-3 days. 6. Follow with Cardiology as recommended for possible outpatient stress test. 7. Celebrex 200 mg p.o. daily. 8. Chantix daily. 9. Desyrel 100 mg at bedtime. 10.Flonase 2 sprays daily. 11.Losartan 50 mg p.o. daily. 12.Neurontin 300 mg p.o. t.i.d. 13.Protonix 40 mg p.o. daily. 14.Ventolin 1-2 puffs q.6 p.r.n. 15.Xanax 1 mg p.o. b.i.d. p.r.n. 16.Ativan 1 mg b.i.d. 17.Catapres 0.1 mg b.i.d. 18.Folic acid 1 mg p.o. daily. 19.Multivitamins 1 p.o. daily. 20.Tylenol p.r.n. 21.Thiamine 100 mg p.o. daily. Once again, the patient will be discharged in stable condition with guarded prognosis. NICK / ASHOK: [id number] /
[2019-10-14] MEDS ORDERED: PANTOPRAZOLE 40 MG TABLET PO SCH (21:00)
== END 2019-10-14 14:35 | disposition home or self-care (01) | DRG 896 ==
LOC: EC 13:56 → 3SCARD 14:55 → OBSVTOIN 10-12 13:28
PROVIDERS: ADMIT Internal Medicine; ATTEND Internal Medicine
DX: F10.231 Alcohol dependence with withdrawal delirium (principal); G93.41 Metabolic encephalopathy; I20.0 Unstable angina; K21.9 Gastro-esophageal reflux disease without esophagitis; E86.0 Dehydration; E66.9 Obesity, unspecified; F17.200 Nicotine dependence, unspecified, uncomplicated; G47.30 Sleep apnea, unspecified; I10 Essential (primary) hypertension; Y90.8 Blood alcohol level of 240 mg/100 ml or more; M19.90 Unspecified osteoarthritis, unspecified site; G40.909 Epilepsy, unspecified, not intractable, without status epilepticus; F32.9 Major depressive disorder, single episode, unspecified; F41.9 Anxiety disorder, unspecified; K70.10 Alcoholic hepatitis without ascites; Z68.37 Body mass index [BMI] 37.0-37.9, adult; Z79.1 Long term (current) use of non-steroidal anti-inflammatories (NSAID); Z11.59 Encounter for screening for other viral diseases; Z79.899 Other long term (current) drug therapy; Z80.8 Family history of malignant neoplasm of other organs or systems; Z82.0 Family history of epilepsy and other diseases of the nervous system; Z82.49 Family history of ischemic heart disease and other diseases of the circulatory system; Z87.01 Personal history of pneumonia (recurrent); Z90.49 Acquired absence of other specified parts of digestive tract; Z88.1 Allergy status to other antibiotic agents; Z88.8 Allergy status to other drugs, medicaments and biological substances; Z99.89 Dependence on other enabling machines and devices; Z90.89 Acquired absence of other organs; Z98.890 Other specified postprocedural states; Z81.8 Family history of other mental and behavioral disorders
CPT/HCPCS: 36415; 71046; 80048; 80053; 80320; 82150; 83690; 83735; 84484; 85025; 85610; 85730; 87635; 93005; 93306; 96361; 96365; 96366; 96372; 96375; 96376; 99285

== ENCOUNTER 2019-11-02 06:16 | Inpatient (IN) | payer OTHER ==
[2019-11-02] MEDS ORDERED: LORazepam 2 MG/ML INJ IV STA (06:32)
[2019-11-02] MEDS ORDERED: ONDANSETRON 4 MG/2 ML VIAL IVP STA (06:34)
[2019-11-02] MEDS ORDERED: FOLIC ACID 1 MG TAB PO STA (06:39)
[2019-11-02] MEDS ORDERED: THIAMINE 100 MG/ML 2 ML VIAL IM STA ×2 (06:39→08:34)
[2019-11-02] MEDS ORDERED: SODIUM CHLORIDE 0.9% 1,000 ML IV STA (06:39)
--- NOTE | 2019-11-02 06:39 | ED ---
Alcohol HPI - General Chief Complaint: Alcohol Stated Complaint: Alcohol Withdrawals Time Seen by Provider: 11/02/19 06:23 Source: patient Mode of arrival: ambulatory Limitations: no limitations - History of Present Illness Initial Comments: Patient is a 44-year-old male with history of alcohol abuse and seizures presenting to emergency Department with chief complaint of alcohol intoxication. Patient states she has been drinking a fifth of vodka daily. Patient reports yesterday he but the fifth of vodka and finished a last night. Patient reports waking up with nausea and multiple episodes of nonbilious, nonbloody vomiting. Patient reports continuous nausea and dry heaving. Patient reports epigastric burning sensation. Patient reports recently he was admitted to the hospital for alcohol intoxication. States she has been in contact with [facility] and will be started on the vivitrol but the whole situation was delayed due to the Covid crisis and paperwork. - Related Data Home Medications Medication Instructions Recorded Confirmed ALPRAZolam [Xanax] 1 mg PO BID PRN 01/03/19 10/11/19 Losartan Potassium 50 mg PO DAILY 01/03/19 10/11/19 Pantoprazole Sodium 40 mg PO DAILY PRN 01/03/19 10/11/19 Gabapentin [Neurontin] 300 mg PO TID 03/04/19 10/11/19 traZODone HCL [Desyrel] 100 mg PO HS PRN 03/04/19 10/11/19 Albuterol Inhaler [Ventolin Hfa 1 - 2 puff INHALATION RT-QID PRN 10/11/19 10/11/19 Inhaler] Celecoxib [CeleBREX] 200 mg PO DAILY 10/11/19 10/11/19 Fluticasone Nasal [place] [Flonase 2 spray EA NOSTRIL DAILY 10/11/19 10/11/19 Nasal [place]] Varenicline [Chantix Starter Pack] See Taper PO DIRECTED 10/11/19 10/11/19 Previous Rx's Medication Instructions Recorded Acetaminophen Tab [Tylenol] 650 mg PO Q6HR PRN tab 10/14/19 Folic Acid 1 mg PO DAILY #30 tablet 10/14/19 LORazepam [Ativan] 1 mg PO BID 3 Days #6 tab 10/14/19 Multivitamins, Thera [Multivitamin] 1 tab PO DAILY #30 tablet 10/14/19 Thiamine [Vitamin B-1] 100 mg PO DAILY #30 tablet 10/14/19 cloNIDine HCL [Catapres] 0.1 mg PO BID #60 tab 10/14/19 Allergies Allergy/AdvReac Type Severity Reaction Status Date / Time Cephalosporins Allergy Severe Anaphylaxis Verified 11/02/19 08:58 diphenhydramine HCl Allergy Severe Anaphylaxis Verified 11/02/19 08:58 [From Benadryl] divalproex sodium Allergy Severe Anaphylaxis Verified 11/02/19 08:58 [From Depakote] ceftriaxone [From Rocephin] Allergy Unknown Verified 11/02/19 08:58 cephalexin [From Keflex] Allergy Unknown Verified 11/02/19 08:58 lisinopril Allergy Unknown Verified 11/02/19 08:58 Review of Systems ROS Statement: Those systems with pertinent positive or pertinent negative responses have been documented in the HPI. ROS Other: All systems not noted in ROS Statement are negative. Past Medical History Past Medical History: GERD/Reflux, GI Bleed, Hypertension, Osteoarthritis (OA), Pneumonia, Seizure Disorder, Sleep Apnea/CPAP/BIPAP Additional Past Medical History / Comment(s): Occasional bilateral pedal edema if stands long, arthritis possibly in back/ribs, MILIND without device, ETOH abuse, alcoholic seizures/blackouts/fainting, alcoholic hepatitis, alcoholic gastritis, upper GI bleed, hypomagnesemia, spinal stenosis/herniated disc with surgery, bilateral varicose veins, hemorrhoids History of Any Multi-Drug Resistant Organisms: None Reported Past Surgical History: Appendectomy, Back Surgery, Tonsillectomy Additional Past Surgical History / Comment(s): bilateral discectomy, discectomy L5-S1, EGD Past Anesthesia/Blood Transfusion Reactions: Motion Sickness Past Psychological History: Anxiety, Depression Smoking Status: Former smoker Past Alcohol Use History: Abuse, Daily, Heavy Past Drug Use History: None Reported, Marijuana - Past Family History Father Family Medical History: Cancer, Dementia, Neurologic Disorder Additional Family Medical History / Comment(s): melanoma, parkinsons Mother Family Medical History: Hypertension, Musculoskeletal Disorder, Neurologic Disorder, Osteoarthritis (OA) Additional Family Medical History / Comment(s): Mother of motor neuron disease at the age of 78yrs. General Exam Limitations: no limitations General appearance: alert, in no apparent distress, obese Head exam: Present: atraumatic, normocephalic, normal inspection Eye exam: Present: normal appearance, PERRL, EOMI Pupils: Present: normal accommodation ENT exam: Present: normal exam, normal oropharynx, mucous membranes dry Neck exam: Present: normal inspection, full ROM Respiratory exam: Present: normal lung sounds bilaterally. Absent: respiratory distress, wheezes Cardiovascular Exam: Present: normal rhythm, tachycardia, normal heart sounds GI/Abdominal exam: Present: soft, tenderness. Absent: distended Extremities exam: Present: normal inspection, full ROM Back exam: Present: normal inspection, full ROM Neurological exam: Present: alert, oriented X3 Psychiatric exam: Present: normal affect, normal mood, other (Tremulous) Skin exam: Present: warm, dry, intact, normal color Course Vital Signs 11/02/19 11/02/19 06:21 08:02 Temperature 99.2 F Pulse Rate 113 H 90 Respiratory 20 18 Rate Blood Pressure 172/90 148/88 O2 Sat by Pulse 98 94 L Oximetry Medical Decision Making - Medical Decision Making Patient is a 44-year-old male with history of alcohol withdrawal seizures presents emergency Department with a chief complaint of alcohol intoxication. Patient had a fifth of vodka last night. On initial laceration patient is tremulous slightly hypertensive. Patient did not take his insulin hypertensive medication this morning and last night. Patient is also complaining of a burning epigastric pain states this is somewhat typical after his vomiting bouts. I suspect this is more of gastritis. Although, patient does have history of CAD. Patient would like psychiatric evaluation. Patient given antiemetics, full cancer, magnesium sulfate, fluids and analgesia. Serum alcohol level is within normal limits. CBC is unremarkable. CMP showed elevated liver enzymes. Patient will be admitted for further medical management. Case discussed with Dr. bruno Admitting physician is Dr. Armen Chowdary Lab Data Result diagrams: 11/02/19 06:44 11/02/19 06:44 Lab Results 11/02/19 11/02/19 11/02/19 Range/Units 06:44 06:44 06:44 WBC 5.7 (3.8-10.6) k/uL RBC 4.77 (4.30-5.90) m/uL Hgb 14.5 (13.0-17.5) gm/dL Hct 44.8 (39.0-53.0) % MCV 93.9 (80.0-100.0) fL MCH 30.4 (25.0-35.0) pg MCHC 32.3 (31.0-37.0) g/dL RDW 15.2 (11.5-15.5) % Plt Count 167 D (150-450) k/uL Neutrophils % 55 % Lymphocytes % 36 % Monocytes % 5 % Eosinophils % 2 % Basophils % 1 % Neutrophils # 3.1 (1.3-7.7) k/uL Lymphocytes # 2.1 (1.0-4.8) k/uL Monocytes # 0.3 (0-1.0) k/uL Eosinophils # 0.1 (0-0.7) k/uL Basophils # 0.0 (0-0.2) k/uL PT (9.0-12.0) sec INR (<1.2) APTT (22.0-30.0) sec Sodium 138 (137-145) mmol/L Potassium 4.1 (3.5-5.1) mmol/L Chloride 100 (98-107) mmol/L Carbon Dioxide 27 (22-30) mmol/L Anion Gap 11 mmol/L BUN 14 (9-20) mg/dL Creatinine 0.70 (0.66-1.25) mg/dL Est GFR (CKD-EPI)AfAm >90 (>60 ml/min/1.73 sqM) Est GFR (CKD-EPI)NonAf >90 (>60 ml/min/1.73 sqM) Glucose 94 (74-99) mg/dL Calcium 9.2 (8.4-10.2) mg/dL Magnesium 1.2 L (1.6-2.3) mg/dL Total Bilirubin 1.2 (0.2-1.3) mg/dL AST 193 H (17-59) U/L ALT 138 H (4-49) U/L Alkaline Phosphatase 83 (38-126) U/L Troponin I <0.012 (0.000-0.034) ng/mL Total Protein 7.9 (6.3-8.2) g/dL Albumin 4.9 (3.5-5.0) g/dL Serum Alcohol <10 mg/dL 11/02/19 Range/Units 06:44 WBC (3.8-10.6) k/uL RBC (4.30-5.90) m/uL Hgb (13.0-17.5) gm/dL Hct (39.0-53.0) % MCV (80.0-100.0) fL MCH (25.0-35.0) pg MCHC (31.0-37.0) g/dL RDW (11.5-15.5) % Plt Count (150-450) k/uL Neutrophils % % Lymphocytes % % Monocytes % % Eosinophils % % Basophils % % Neutrophils # (1.3-7.7) k/uL Lymphocytes # (1.0-4.8) k/uL Monocytes # (0-1.0) k/uL Eosinophils # (0-0.7) k/uL Basophils # (0-0.2) k/uL PT 9.6 (9.0-12.0) sec INR 0.9 (<1.2) APTT 22.9 (22.0-30.0) sec Sodium (137-145) mmol/L Potassium (3.5-5.1) mmol/L Chloride (98-107) mmol/L Carbon Dioxide (22-30) mmol/L Anion Gap mmol/L BUN (9-20) mg/dL Creatinine (0.66-1.25) mg/dL Est GFR (CKD-EPI)AfAm (>60 ml/min/1.73 sqM) Est GFR (CKD-EPI)NonAf (>60 ml/min/1.73 sqM) Glucose (74-99) mg/dL Calcium (8.4-10.2) mg/dL Magnesium (1.6-2.3) mg/dL Total Bilirubin (0.2-1.3) mg/dL AST (17-59) U/L ALT (4-49) U/L Alkaline Phosphatase (38-126) U/L Troponin I (0.000-0.034) ng/mL Total Protein (6.3-8.2) g/dL Albumin (3.5-5.0) g/dL Serum Alcohol mg/dL - EKG Data EKG Comments: Sinus rhythm, complete right bundle-branch block. Ventricular rate 95, pr 188, QRS 102, QTc 457 Disposition Clinical Impression: Alcoholic gastritis, Alcohol withdrawal, Chest pain Disposition: ADMITTED IP TO THIS HOSP Condition: Good Is patient prescribed a controlled substance at d/c from ED?: No Time of Disposition: 09:03
[2019-11-02 07:02] LABS: Basophils % (A) 1 %; Eosinophils # (A) 0.1 k/uL (0-0.7); Eosinophils % (A) 2 %; HCT 44.8 % (39.0-53.0); HGB 14.5 gm/dL (13.0-17.5); Lymphocytes # (A) 2.1 k/uL (1.0-4.8); Lymphocytes % (A) 36 %; MCH 30.4 pg (25.0-35.0); MCHC 32.3 g/dL (31.0-37.0); MCV 93.9 fL (80.0-100.0); Mean Platelet Volume 7.6; Monocytes # (A) 0.3 k/uL (0-1.0); Monocytes % (A) 5 %; Neutrophils # (A) 3.1 k/uL (1.3-7.7); Neutrophils % (A) 55 %; RBC 4.77 m/uL (4.30-5.90); RDW 15.2 % (11.5-15.5); WBC 5.7 k/uL (3.8-10.6)
[2019-11-02 07:04] LABS: Platelet Count 167 k/uL (150-450)
[2019-11-02 07:11] LABS: ALT 138 U/L (4-49); AST 193 U/L (17-59); African American GFR (CKD) >90 (>60 ml/min/1.73 sqM); Albumin 4.9 g/dL (3.5-5.0); Alcohol <10 mg/dL; Alkaline Phosphatase 83 U/L (38-126); Anion Gap 11 mmol/L; Blood Urea Nitrogen 14 mg/dL (9-20); Calcium 9.2 mg/dL (8.4-10.2); Carbon Dioxide 27 mmol/L (22-30); Chloride 100 mmol/L (98-107); Glucose 94 mg/dL (74-99); Magnesium 1.2 mg/dL (1.6-2.3); Non-African American GFR(CKD) >90 (>60 ml/min/1.73 sqM); Potassium 4.1 mmol/L (3.5-5.1); Sodium 138 mmol/L (137-145); Total Bilirubin 1.2 mg/dL (0.2-1.3); Total Protein 7.9 g/dL (6.3-8.2)
[2019-11-02] MEDS ORDERED: MORPHINE SULFATE 4 MG/ML SYRINGE IVP STA (07:15)
[2019-11-02] MEDS: MAGNESIUM SULFATE-D5W PMX 1 GM in DEXTROSE/WATER 1 100ML.BAG IVPB SCH ×3 (07:39→23:19)
[2019-11-02 08:02] LABS: INR 0.9 (<1.2); Partial Thromboplastin Time 22.9 sec (22.0-30.0); Prothrombin Time 9.6 sec (9.0-12.0)
[2019-11-02] MEDS ORDERED: LORazepam 2 MG/ML INJ IV PRN (08:34)
[2019-11-02] MEDS: LORazepam 2 MG/ML INJ IV PRN ×7 (08:41→22:10)
[2019-11-02] MEDS ORDERED: NALOXONE 0.4 MG/ML 1 ML VIAL IV PRN (08:42)
[2019-11-02] MEDS ORDERED: HYDROmorphone 0.5 MG/0.5 ML SYRINGE IVP PRN (08:42)
[2019-11-02] MEDS: SODIUM CHLORIDE 0.9% 1,000 ML IV SCH (09:47)
[2019-11-02] MEDS: MORPHINE SULFATE 4 MG/ML SYRINGE IV PRN ×3 (12:20→21:04)
[2019-11-02] MEDS: NICOTINE 21MG/24HR PATCH TRANSDERM SCH (15:29)
[2019-11-02] MEDS: HEPARIN SODIUM,PORCINE 5,000 UNIT/ML 1 ML VIAL SQ SCH ×2 (15:29→22:10)
[2019-11-02] MEDS: THIAMINE 100 MG TAB PO SCH (16:30)
[2019-11-02] MEDS ORDERED: FLUTICASONE 50MCG/SPRAY NASAL 16GM EA NOSTRIL PRN (21:59)
[2019-11-02] MEDS: GABAPENTIN 300 MG CAP PO SCH (22:09)
[2019-11-02] MEDS: PANTOPRAZOLE 40 MG TABLET PO SCH (22:10)
--- NOTE | 2019-11-02 22:32 | P.HPIM ---
History of Present Illness H&P Date: 11/02/19 Chief Complaint: Alcohol withdrawal symptoms. Patient is a 44-year-old male with a known history of hypertension, obstructive sleep apnea not on CPAP at home, GI bleed, GERD, anxiety/depression and severe alcohol abuse, fifth of alcohol on daily basis as well as marijuana use presents to ER with complaints of alcohol intoxication. Patient states that he has been drinking 1/5 of vodka daily. Last drink was yesterday. Upon waking up in the morning he felt nauseated and had multiple vomitings mainly nonbilious and nonbloody. Was also having dry heaves and epigastric burning sensation. Patient was recently admitted to the hospital for alcohol intoxication. She has been in contact with [facility] and plan was to started on Vivitrol but due to COVID-19 crisis it was delayed. No complaints of chest pain or shortness of breath. No cough or sputum production. Denies any fever or chills. No dysuria or hematuria. No hematemesis or melena. Laboratory data showed WBC 5.7, hemoglobin 14.5, platelets 167 Magnesium 1.2 AST 193 ALT 138 alk phos 83 troponin x1- and a serum alcohol level is less than 10 EKG showed normal sinus rhythm. Review of Systems Constitutional: Patient denies any fever or chills . No generalized weakness or weight loss. Abdomen: Patient does have nausea vomiting and epigastricabdominal pain. Cardiovascular: Patient denies any chest pain or short of breath no palpitations. Respiratory: patient denied any cough is from production. No shortness of breath Neurologic: Patient denied any numbness or tingling. Musculoskeletal: Patient denies any complaints of joint swelling or deformity. Skin: Negative Psychiatric: Negative Endocrine: No heat or cold intolerance. No recent weight gain. Genitourinary: No dysuria or hematuria. All other 14 point ROS negative except the above Past Medical History Past Medical History: GERD/Reflux, GI Bleed, Hypertension, Osteoarthritis (OA), Pneumonia, Seizure Disorder, Sleep Apnea/CPAP/BIPAP Additional Past Medical History / Comment(s): Occasional bilateral pedal edema if stands long, arthritis possibly in back/ribs, MILIND without device, ETOH abuse, alcoholic seizures/blackouts/fainting, alcoholic hepatitis, alcoholic gastritis, upper GI bleed, hypomagnesemia, spinal stenosis/herniated disc with surgery, bilateral varicose veins, hemorrhoids History of Any Multi-Drug Resistant Organisms: None Reported Past Surgical History: Appendectomy, Back Surgery, Tonsillectomy Additional Past Surgical History / Comment(s): bilateral discectomy, discectomy L5-S1, EGD Past Anesthesia/Blood Transfusion Reactions: Motion Sickness Past Psychological History: Anxiety, Depression Smoking Status: Former smoker Past Alcohol Use History: Abuse, Daily, Heavy Past Drug Use History: None Reported, Marijuana - Past Family History Father Family Medical History: Cancer, Dementia, Neurologic Disorder Additional Family Medical History / Comment(s): melanoma, parkinsons Mother Family Medical History: Hypertension, Musculoskeletal Disorder, Neurologic Disorder, Osteoarthritis (OA) Additional Family Medical History / Comment(s): Mother of motor neuron disease at the age of 78yrs. Medications and Allergies Home Medications Medication Instructions Recorded Confirmed Type ALPRAZolam [Xanax] 1 mg PO BID PRN 01/03/19 11/02/19 History Losartan Potassium 50 mg PO DAILY 01/03/19 11/02/19 History Pantoprazole Sodium 40 mg PO DAILY PRN 01/03/19 11/02/19 History Gabapentin [Neurontin] 600 mg PO TID 03/04/19 11/02/19 History Albuterol Inhaler [Ventolin Hfa 1 - 2 puff INHALATION RT-QID PRN 10/11/19 11/02/19 History Inhaler] Celecoxib [CeleBREX] 200 mg PO DAILY 10/11/19 11/02/19 History Fluticasone Nasal [place] [Flonase 2 spray EA NOSTRIL DAILY PRN 10/11/19 11/02/19 History Nasal [place]] Varenicline [Chantix Starter Pack] See Taper PO DIRECTED 10/11/19 11/02/19 History Acetaminophen Tab [Tylenol] 650 mg PO Q6HR PRN tab 10/14/19 11/02/19 Rx Folic Acid 1 mg PO DAILY #30 tablet 10/14/19 11/02/19 Rx Multivitamins, Thera [Multivitamin] 1 tab PO DAILY #30 tablet 10/14/19 11/02/19 Rx Thiamine [Vitamin B-1] 100 mg PO DAILY #30 tablet 10/14/19 11/02/19 Rx cloNIDine HCL [Catapres] 0.1 mg PO BID #60 tab 10/14/19 11/02/19 Rx Ondansetron [Zofran ODT] 4 mg PO BID PRN 11/02/19 11/02/19 History Allergies Allergy/AdvReac Type Severity Reaction Status Date / Time Cephalosporins Allergy Severe Anaphylaxis Verified 11/02/19 08:58 diphenhydramine HCl Allergy Severe Anaphylaxis Verified 11/02/19 08:58 [From Benadryl] divalproex sodium Allergy Severe Anaphylaxis Verified 11/02/19 08:58 [From Depakote] ceftriaxone [From Rocephin] Allergy Unknown Verified 11/02/19 08:58 cephalexin [From Keflex] Allergy Unknown Verified 11/02/19 08:58 lisinopril Allergy Unknown Verified 11/02/19 08:58 Physical Exam Vitals: Vital Signs Temp Pulse Resp BP Pulse Ox 11/02/19 10:30 77 20 151/89 96 11/02/19 10:00 78 18 148/82 94 L 11/02/19 09:30 86 18 147/84 95 11/02/19 09:00 77 18 126/87 95 11/02/19 08:30 90 20 148/88 94 L 11/02/19 08:02 90 18 148/88 94 L 11/02/19 06:21 99.2 F 113 H 20 172/90 98 Intake and Output 11/01/19 11/02/19 11/02/19 22:59 06:59 14:59 Other: Weight 131.542 kg PHYSICAL EXAMINATION: Patient is lying in the bed comfortably, no acute distress, awake alert and oriented.Drowsy and lethargic.. HEENT: Normocephalic. Neck is supple. Pupils reactive. Nostrils clear. Oral cavity is moist. Ears reveal no drainage. Neck reveals no JVD, carotid bruits, or thyromegaly. CHEST EXAMINATION: Trachea is central. Symmetrical expansion. Lung llamas clear to auscultation and percussion. CARDIAC: Normal S1, S2 with no gallops. No murmurs ABDOMEN: Soft. Mild epigastric tenderness., Bowel sounds normal. No organomegaly. No abdominal bruits. Extremities: reveal no edema. No clubbing or cyanosis Neurologically awake, alert, oriented x3 with well-coordinated movements. No focal deficits noted Skin: No rash or skin lesions. Psychiatric: Coperative. Nonsuicidal Musculoskeletal: No joint swelling or deformity. Normal range of motion. Results CBC & Chem 7: 11/02/19 06:44 11/02/19 06:44 Labs: Abnormal Lab Results - Last 24 Hours (Table) 11/02/19 Range/Units 06:44 Magnesium 1.2 L (1.6-2.3) mg/dL AST 193 H (17-59) U/L ALT 138 H (4-49) U/L Thrombosis Risk Factor Assmnt - DVT/VTE Prophylaxis DVT/VTE Prophylaxis: Pharmacologic Prophylaxis ordered Assessment and Plan Assessment: Intractable nausea vomiting and abdominal discomfort secondary to alcoholic gastritis. Acute alcoholic hepatitis Hypomagnesemia Acute alcohol withdrawal symptoms Severe alcohol abuse,. Fifth of vodka on daily basis Recent admission with alcohol intoxication Hypertension GERD History of GI bleed History of seizure disorder. 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 Continue to monitor alcohol withdrawal symptoms and treat with Ativan. Started on thiamine and folic acid. Monitor for DTs. Replace magnesium. Fall precautions and seizure precautions. Further recommendations based on the clinical course. Time with Patient: Greater than 30
[2019-11-03] MEDS: LORazepam 2 MG/ML INJ IV PRN ×7 (00:12→21:05)
[2019-11-03] MEDS: MAGNESIUM SULFATE-D5W PMX 1 GM in DEXTROSE/WATER 1 100ML.BAG IVPB SCH (01:03)
[2019-11-03] MEDS: MORPHINE SULFATE 4 MG/ML SYRINGE IV PRN ×5 (01:03→19:41)
[2019-11-03] MEDS: THIAMINE 100 MG TAB PO SCH ×2 (06:15→15:16)
[2019-11-03 08:07] LABS: ALT 120 U/L (4-49); AST 172 U/L (17-59); African American GFR (CKD) >90 (>60 ml/min/1.73 sqM); Albumin 4.3 g/dL (3.5-5.0); Alkaline Phosphatase 70 U/L (38-126); Anion Gap 9 mmol/L; Blood Urea Nitrogen 14 mg/dL (9-20); Calcium 8.7 mg/dL (8.4-10.2); Carbon Dioxide 26 mmol/L (22-30); Chloride 100 mmol/L (98-107); Glucose 99 mg/dL (74-99); Non-African American GFR(CKD) >90 (>60 ml/min/1.73 sqM); Sodium 135 mmol/L (137-145); Total Protein 6.9 g/dL (6.3-8.2)
[2019-11-03] MEDS: GABAPENTIN 300 MG CAP PO SCH ×3 (08:34→21:04)
[2019-11-03] MEDS: HEPARIN SODIUM,PORCINE 5,000 UNIT/ML 1 ML VIAL SQ SCH ×3 (08:34→23:55)
[2019-11-03] MEDS: FOLIC ACID 1 MG TAB PO SCH (08:35)
[2019-11-03] MEDS: PANTOPRAZOLE 40 MG TABLET PO SCH (08:35)
[2019-11-03] MEDS: NICOTINE 21MG/24HR PATCH TRANSDERM SCH (08:35)
[2019-11-03] MEDS: SODIUM CHLORIDE 0.9% 1,000 ML IV SCH ×2 (17:45→21:16)
--- NOTE | 2019-11-04 00:02 | P.PN ---
Subjective Progress Note Date: 11/03/19 Principal diagnosis: Acute alcohol withdrawal symptoms Patient is a 44-year-old male with a known history of hypertension, obstructive sleep apnea not on CPAP at home, GI bleed, GERD, anxiety/depression and severe alcohol abuse, fifth of alcohol on daily basis as well as marijuana use presents to ER with complaints of alcohol intoxication. Patient states that he has been drinking 1/5 of vodka daily. Last drink was yesterday. Upon waking up in the morning he felt nauseated and had multiple vomitings mainly nonbilious and nonbloody. Was also having dry heaves and epigastric burning sensation. Patient was recently admitted to the hospital for alcohol intoxication. She has been in contact with [facility] and plan was to started on Vivitrol but due to COVID-19 crisis it was delayed. No complaints of chest pain or shortness of breath. No cough or sputum production. Denies any fever or chills. No dysuria or hematuria. No hematemesis or melena. Laboratory data showed WBC 5.7, hemoglobin 14.5, platelets 167 Magnesium 1.2 AST 193 ALT 138 alk phos 83 troponin x1- and a serum alcohol level is less than 10 EKG showed normal sinus rhythm. 11/03/2019 Patient is still complaining of shakiness and anxious. Continued on alcohol withdrawal protocol. No complaints of chest pain or shortness of breath. Laboratory data showed bilirubin level 2.0 and slight improvement in AST and ALT level 172 and 120. Patient has been afebrile. No complaints of nausea today. Upper epigastric discomfort is improved. Patient is being continued on IV hydration encourage oral intake. Anticipate discharge in the next 24 to 48 hours with more clinical improvement. Current medications reviewed. Objective - Vital Signs Vital signs: Vital Signs Temp 98.2 F 11/03/19 19:43 Pulse 74 11/03/19 19:43 Resp 16 11/03/19 19:43 BP 137/88 11/03/19 19:43 Pulse Ox 97 11/03/19 19:43 Intake & Output 11/03/19 11/03/19 11/04/19 06:59 18:59 06:59 Intake Total 1700 1080 Output Total 450 Balance 1250 1080 Weight 131.7 kg Intake: Intake, IV Titration 980 Amount Magnesium Sulfate-D5w Pmx 100 1 gm In Dextrose/Water 1 100ml.bag @ 100 mls/hr IVPB Q1H [facility] Rx#: [id number] Magnesium Sulfate-D5w Pmx 100 1 gm In Dextrose/Water 1 100ml.bag @ 100 mls/hr IVPB Q1H [facility] Rx#: [id number] Sodium Chloride 0.9% 1, 780 000 ml @ 100 mls/hr IV . Q10H [facility] Rx#:[id number] Oral 720 1080 Output: Urine 450 Other: # Voids 1 - Exam PHYSICAL EXAMINATION: Patient is lying in the bed comfortably, no acute distress, awake alert and oriented. HEENT: Normocephalic. Neck is supple. Pupils reactive. Nostrils clear. Oral cavity is moist. Ears reveal no drainage. Neck reveals no JVD, carotid bruits, or thyromegaly. CHEST EXAMINATION: Trachea is central. Symmetrical expansion. Lung llamas clear to auscultation and percussion. CARDIAC: Normal S1, S2 with no gallops. No murmurs ABDOMEN: Soft. Mild epigastric tenderness., Bowel sounds normal. No organomegaly. No abdominal bruits. Extremities: reveal no edema. No clubbing or cyanosis Neurologically awake, alert, oriented x3 with well-coordinated movements. No focal deficits noted Skin: No rash or skin lesions. Psychiatric: Coperative. Nonsuicidal, shaky and anxious Musculoskeletal: No joint swelling or deformity. Normal range of motion. - Labs CBC & Chem 7: 11/02/19 06:44 11/03/19 07:21 Labs: Abnormal Lab Results - Last 24 Hours (Table) 11/03/19 Range/Units 07:21 Sodium 135 L (137-145) mmol/L Total Bilirubin 2.0 H (0.2-1.3) mg/dL AST 172 H (17-59) U/L ALT 120 H (4-49) U/L Assessment and Plan Assessment: Intractable nausea vomiting and abdominal discomfort secondary to alcoholic gastritis. Acute alcoholic hepatitis Hypomagnesemia Acute alcohol withdrawal symptoms Severe alcohol abuse,. Fifth of vodka on daily basis Recent admission with alcohol intoxication Hypertension GERD History of GI bleed History of seizure disorder. 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 Continue to monitor alcohol withdrawal symptoms and treat with Ativan. Started on thiamine and folic acid. Monitor for DTs. Replace magnesium. Fall precautions and seizure precautions. Further recommendations based on the clinical course. Time with Patient: Greater than 30
[2019-11-04] MEDS: LORazepam 2 MG/ML INJ IV PRN ×5 (00:22→20:39)
[2019-11-04] MEDS: MORPHINE SULFATE 4 MG/ML SYRINGE IV PRN ×5 (02:02→20:38)
[2019-11-04] MEDS: SODIUM CHLORIDE 0.9% 1,000 ML IV SCH ×2 (03:54→16:11)
[2019-11-04] MEDS: THIAMINE 100 MG TAB PO SCH ×2 (05:52→16:10)
[2019-11-04 06:28] LABS: Basophils % (A) 1 %; Eosinophils # (A) 0.1 k/uL (0-0.7); Eosinophils % (A) 2 %; HCT 43.9 % (39.0-53.0); HGB 14.2 gm/dL (13.0-17.5); Lymphocytes # (A) 1.9 k/uL (1.0-4.8); Lymphocytes % (A) 32 %; MCH 30.6 pg (25.0-35.0); MCHC 32.3 g/dL (31.0-37.0); MCV 94.7 fL (80.0-100.0); Mean Platelet Volume 8.2; Monocytes # (A) 0.3 k/uL (0-1.0); Monocytes % (A) 6 %; Neutrophils # (A) 3.5 k/uL (1.3-7.7); Neutrophils % (A) 58 %; Platelet Count 138 k/uL (150-450); RBC 4.64 m/uL (4.30-5.90); RDW 14.6 % (11.5-15.5)
[2019-11-04 06:37] LABS: African American GFR (CKD) >90 (>60 ml/min/1.73 sqM); Anion Gap 9 mmol/L; Blood Urea Nitrogen 14 mg/dL (9-20); Calcium 9.4 mg/dL (8.4-10.2); Carbon Dioxide 26 mmol/L (22-30); Chloride 101 mmol/L (98-107); Glucose 94 mg/dL (74-99); Non-African American GFR(CKD) >90 (>60 ml/min/1.73 sqM); Potassium 4.5 mmol/L (3.5-5.1); Sodium 136 mmol/L (137-145)
[2019-11-04] MEDS: HEPARIN SODIUM,PORCINE 5,000 UNIT/ML 1 ML VIAL SQ SCH ×3 (09:18→22:43)
[2019-11-04] MEDS: PANTOPRAZOLE 40 MG TABLET PO SCH (09:19)
[2019-11-04] MEDS: FOLIC ACID 1 MG TAB PO SCH (09:19)
[2019-11-04] MEDS: GABAPENTIN 300 MG CAP PO SCH ×3 (09:19→20:39)
[2019-11-04] MEDS: NICOTINE 21MG/24HR PATCH TRANSDERM SCH (09:19)
[2019-11-05] MEDS: LORazepam 2 MG/ML INJ IV PRN ×6 (00:39→21:32)
[2019-11-05] MEDS: SODIUM CHLORIDE 0.9% 1,000 ML IV SCH ×2 (00:39→09:28)
--- NOTE | 2019-11-05 01:13 | P.PN ---
Subjective Progress Note Date: 11/04/19 Principal diagnosis: Acute alcohol withdrawal symptoms Patient is a 44-year-old male with a known history of hypertension, obstructive sleep apnea not on CPAP at home, GI bleed, GERD, anxiety/depression and severe alcohol abuse, fifth of alcohol on daily basis as well as marijuana use presents to ER with complaints of alcohol intoxication. Patient states that he has been drinking 1/5 of vodka daily. Last drink was yesterday. Upon waking up in the morning he felt nauseated and had multiple vomitings mainly nonbilious and nonbloody. Was also having dry heaves and epigastric burning sensation. Patient was recently admitted to the hospital for alcohol intoxication. She has been in contact with [facility] and plan was to started on Vivitrol but due to COVID-19 crisis it was delayed. No complaints of chest pain or shortness of breath. No cough or sputum production. Denies any fever or chills. No dysuria or hematuria. No hematemesis or melena. Laboratory data showed WBC 5.7, hemoglobin 14.5, platelets 167 Magnesium 1.2 AST 193 ALT 138 alk phos 83 troponin x1- and a serum alcohol level is less than 10 EKG showed normal sinus rhythm. 11/03/2019 Patient is still complaining of shakiness and anxious. Continued on alcohol withdrawal protocol. No complaints of chest pain or shortness of breath. Laboratory data showed bilirubin level 2.0 and slight improvement in AST and ALT level 172 and 120. Patient has been afebrile. No complaints of nausea today. Upper epigastric discomfort is improved. Patient is being continued on IV hydration encourage oral intake. Anticipate discharge in the next 24 to 48 hours with more clinical improvement. 11/03 Patient continues to be shaky. Still requiring Ativan on regular basis. Otherwise patient denied any complaints of chest pain or shortness of breath. No nausea vomiting or abdominal pain. No diarrhea or dysuria. Patient has been afebrile. Current medications reviewed. Objective - Vital Signs Vital signs: Vital Signs Temp 98.7 F 11/04/19 20:00 Pulse 81 11/04/19 20:00 Resp 16 11/04/19 20:00 BP 145/89 11/04/19 20:00 Pulse Ox 96 11/04/19 20:00 Intake & Output 11/04/19 11/04/19 11/05/19 06:59 18:59 06:59 Intake Total 1740 960 Output Total 200 Balance 1540 960 Weight 132.5 kg Intake: Intake, IV Titration 1100 Amount Sodium Chloride 0.9% 1, 1100 000 ml @ 100 mls/hr IV . Q10H TRAVIS Rx#:[id number] Oral 640 960 Output: Urine 200 Other: # Voids 2 1 - Exam PHYSICAL EXAMINATION: Patient is lying in the bed comfortably, no acute distress, awake alert and oriented. HEENT: Normocephalic. Neck is supple. Pupils reactive. Nostrils clear. Oral cavity is moist. Ears reveal no drainage. Neck reveals no JVD, carotid bruits, or thyromegaly. CHEST EXAMINATION: Trachea is central. Symmetrical expansion. Lung llamas clear to auscultation and percussion. CARDIAC: Normal S1, S2 with no gallops. No murmurs ABDOMEN: Soft. Mild epigastric tenderness., Bowel sounds normal. No organomega ly. No abdominal bruits. Extremities: reveal no edema. No clubbing or cyanosis Neurologically awake, alert, oriented x3 with well-coordinated movements. No focal deficits noted Skin: No rash or skin lesions. Psychiatric: Coperative. Nonsuicidal, shaky and anxious Musculoskeletal: No joint swelling or deformity. Normal range of motion. - Labs CBC & Chem 7: 11/04/19 05:50 11/04/19 05:50 Labs: Abnormal Lab Results - Last 24 Hours (Table) 11/04/19 11/04/19 Range/Units 05:50 05:50 Plt Count 138 L (150-450) k/uL Sodium 136 L (137-145) mmol/L Assessment and Plan Assessment: Intractable nausea vomiting and abdominal discomfort secondary to alcoholic gastritis. improved Acute alcoholic hepatitis Hypomagnesemia Acute alcohol withdrawal symptoms Severe alcohol abuse,. Fifth of vodka on daily basis Recent admission with alcohol intoxication Hypertension GERD History of GI bleed History of seizure disorder. 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 Continue to monitor alcohol withdrawal symptoms and treat with Ativan. Started on thiamine and folic acid. Monitor for DTs. Replace magnesium. Fall precautions and seizure precautions. Further recommendations based on the clinical course. Time with Patient: Greater than 30
[2019-11-05] MEDS: MORPHINE SULFATE 4 MG/ML SYRINGE IV PRN ×4 (01:15→15:57)
[2019-11-05] MEDS: THIAMINE 100 MG TAB PO SCH ×2 (05:16→15:57)
[2019-11-05 07:09] LABS: HCT 41.2 % (39.0-53.0); HGB 13.7 gm/dL (13.0-17.5); MCHC 33.3 g/dL (31.0-37.0); MCV 93.2 fL (80.0-100.0); Mean Platelet Volume 8.7; Platelet Count 129 k/uL (150-450); RBC 4.42 m/uL (4.30-5.90); RDW 14.8 % (11.5-15.5)
[2019-11-05 07:34] LABS: ALT 141 U/L (4-49); AST 178 U/L (17-59); African American GFR (CKD) >90 (>60 ml/min/1.73 sqM); Anion Gap 7 mmol/L; Blood Urea Nitrogen 12 mg/dL (9-20); Calcium 9.1 mg/dL (8.4-10.2); Carbon Dioxide 24 mmol/L (22-30); Chloride 104 mmol/L (98-107); Glucose 94 mg/dL (74-99); Magnesium 1.5 mg/dL (1.6-2.3); Non-African American GFR(CKD) >90 (>60 ml/min/1.73 sqM); Potassium 4.3 mmol/L (3.5-5.1); Sodium 135 mmol/L (137-145)
[2019-11-05] MEDS: FOLIC ACID 1 MG TAB PO SCH (09:27)
[2019-11-05] MEDS: HEPARIN SODIUM,PORCINE 5,000 UNIT/ML 1 ML VIAL SQ SCH ×3 (09:27→23:06)
[2019-11-05] MEDS: GABAPENTIN 300 MG CAP PO SCH ×3 (09:27→21:32)
[2019-11-05] MEDS: NICOTINE 21MG/24HR PATCH TRANSDERM SCH (09:27)
[2019-11-05] MEDS: PANTOPRAZOLE 40 MG TABLET PO SCH ×2 (09:27→15:57)
[2019-11-05] MEDS ORDERED: Magnesium Replacement Protocol 1 EACH MISC MISCELLANE PRN (14:34)
[2019-11-05] MEDS ORDERED: ONDANSETRON ODT 4 MG TAB PO PRN (15:46)
[2019-11-05] MEDS ORDERED: ALBUTEROL NEBULIZED 2.5 MG/3 ML INHALATION PRN (15:46)
[2019-11-05] MEDS: MAGNESIUM SULFATE-D5W PMX 1 GM in DEXTROSE/WATER 1 100ML.BAG IVPB SCH ×2 (15:56→17:13)
[2019-11-05 16:55] LABS: ALT 133 U/L (4-49); AST 183 U/L (17-59); African American GFR (CKD) >90 (>60 ml/min/1.73 sqM); Albumin 4.2 g/dL (3.5-5.0); Alkaline Phosphatase 65 U/L (38-126); Anion Gap 9 mmol/L; Blood Urea Nitrogen 15 mg/dL (9-20); Calcium 9.2 mg/dL (8.4-10.2); Carbon Dioxide 26 mmol/L (22-30); Chloride 100 mmol/L (98-107); Glucose 84 mg/dL (74-99); Non-African American GFR(CKD) >90 (>60 ml/min/1.73 sqM); Potassium 3.9 mmol/L (3.5-5.1); Sodium 135 mmol/L (137-145); Total Bilirubin 0.9 mg/dL (0.2-1.3); Total Protein 6.8 g/dL (6.3-8.2)
--- NOTE | 2019-11-05 18:49 | PN ---
PROGRESS NOTE DATE OF SERVICE: 11/05/2019 This 44-year-old gentleman who was admitted with intractable nausea and vomiting possible alcoholic gastritis, also had acute alcoholic hepatitis also. The patient is complaining of generalized gait dysfunction and tremors also. [facility] protocol is also being followed at this time. The patient has thrombocytopenia and hyponatremia. LFTs also elevated. PAST MEDICAL HISTORY: Reviewed. REVIEW OF SYSTEMS: CARDIOVASCULAR SYSTEM: No angina or palpitations. RESPIRATORY: As mentioned earlier. GI: As mentioned earlier. : No dysuria. RADIATION ENGINEER: No numbness or weakness. CURRENT MEDICATIONS: Reviewed and include: 1. Flonase 2 sprays daily. 2. Folic acid 1 mg daily. 3. Neurontin 600 mg p.o. t.i.d. 4. Heparin 5000 subcu q8. 5. Dilaudid 0.5 mg q.3. 6. Ativan 1 mg q.2 p.r.n. 7. Magnesium sulfate. 8. Multivitamins. 9. Narcan. 10.Habitrol 21. 11.Protonix. 12.Vitamin B1 100 mg p.o. b.i.d. PHYSICAL EXAMINATION: Patient is alert and oriented times three. Pulse 102. Blood pressure 150/81, respirations 18. Temperature 98.2, pulse ox 94% on room air. HEENT: Conjunctivae normal. NECK: No JVD. CARDIOVASCULAR: S1, S2 muffled. RESPIRATORY SYSTEM: Breath sounds diminished at the bases. A few scattered rhonchi and crackles. Expiratory wheezing also present. ABDOMEN is soft, nontender. No mass palpable. LEGS: No edema and no swelling. CENTRAL NERVOUS SYSTEM: No focal deficits. LABS: WBC 6, hemoglobin 13.7, platelets 129. Sodium 135 and AST is 178, ALT is 141. ASSESSMENT: 1. Intractable nausea and vomiting possible acute gastritis. 2. Acute alcohol intoxication as well as acute delirium tremens. 3. Generalized gait dysfunction secondary to delirium tremens. 4. Acute alcoholic hepatitis. 5. Hypomagnesemia. 6. Severe alcohol abuse. 7. Hypertension. 8. History of gastroesophageal reflux disease. 9. Gastrointestinal bleed. 10.History of seizure disorder, not on any antiepileptic medications. 11.History of obstructive sleep apnea. 12.Anxiety/depression. 13.Continued ongoing nicotine dependence. 14.History of THC. 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 16.Hyponatremia. 17.History of degenerative joint disease. 18.History of upper gastrointestinal bleed. 19.FULL CODE. RECOMMENDATIONS AND DISCUSSION: In this 44-year-old gentleman who presented with multiple complex medical issues, we will monitor the patient closely. Continue the current medications, symptomatic treatment. Otherwise, continue with CIWA protocol. I would recommend repeat LFTs and closely follow with multiple consultants. plugger worker to evaluate the home situation. Prognosis guarded because of multiple complex medical issues. Importance of alcohol cessation and abstinence also stressed with the patient. Further recommendations to follow. Home medications will be restarted. MMODL / IJN: [id number] / MTDD
[2019-11-05] MEDS: cloNIDine HCL 0.1 MG TAB PO SCH (21:32)
[2019-11-06] MEDS: LORazepam 2 MG/ML INJ IV PRN ×5 (01:49→20:17)
[2019-11-06] MEDS: PANTOPRAZOLE 40 MG TABLET PO SCH ×2 (05:41→17:12)
[2019-11-06] MEDS: THIAMINE 100 MG TAB PO SCH ×2 (05:41→17:12)
[2019-11-06 07:20] LABS: Basophils % (A) 0 %; Eosinophils # (A) 0.1 k/uL (0-0.7); Eosinophils % (A) 2 %; HCT 43.4 % (39.0-53.0); HGB 14.2 gm/dL (13.0-17.5); Lymphocytes # (A) 1.6 k/uL (1.0-4.8); Lymphocytes % (A) 27 %; MCH 30.9 pg (25.0-35.0); MCHC 32.8 g/dL (31.0-37.0); MCV 94.1 fL (80.0-100.0); Mean Platelet Volume 8.6; Monocytes # (A) 0.4 k/uL (0-1.0); Monocytes % (A) 6 %; Neutrophils # (A) 3.8 k/uL (1.3-7.7); Neutrophils % (A) 62 %; Platelet Count 132 k/uL (150-450); RBC 4.61 m/uL (4.30-5.90); RDW 14.7 % (11.5-15.5); WBC 6.1 k/uL (3.8-10.6)
[2019-11-06] MEDS: cloNIDine HCL 0.1 MG TAB PO SCH ×2 (08:49→20:18)
[2019-11-06] MEDS: MULTIVITAMINS, THERA 1 EACH TAB PO SCH (08:49)
[2019-11-06] MEDS: MORPHINE SULFATE 4 MG/ML SYRINGE IV PRN ×4 (08:49→21:46)
[2019-11-06] MEDS: GABAPENTIN 300 MG CAP PO SCH ×3 (08:49→20:17)
[2019-11-06] MEDS: NICOTINE 21MG/24HR PATCH TRANSDERM SCH ×2 (08:49→14:56)
[2019-11-06] MEDS: FOLIC ACID 1 MG TAB PO SCH (08:49)
[2019-11-06] MEDS: LOSARTAN 50 MG TAB PO SCH (08:49)
[2019-11-06] MEDS: MELOXICAM 7.5 MG TAB PO SCH (08:49)
[2019-11-06] MEDS: HEPARIN SODIUM,PORCINE 5,000 UNIT/ML 1 ML VIAL SQ SCH ×2 (08:49→15:00)
--- NOTE | 2019-11-06 21:20 | PN ---
PROGRESS NOTE DATE OF SERVICE: 11/06/2019 This 44-year-old gentleman was admitted with significant alcohol intake and alcoholism with history of DTs. Patient has significant tremulousness. The patient has CIWA protocol. No chest pain. No palpitations. No fever. PHYSICAL EXAMINATION: Alert and oriented x3. Pulse 95, blood pressure 109/66, respiration 18, temperature 98.3, pulse ox 94% on room air HEENT: Conjunctivae normal. Oral mucosa moist. NECK: No jugular venous distention. No lymph node enlargement. CARDIOVASCULAR: S1, S2. RESPIRATORY: Diminished breath sounds at the bases. No rhonchi, no crackles. ABDOMEN: Soft, nontender. LEGS: No edema, no swelling. NERVOUS SYSTEM: No focal deficits. LABS: WBC 6.9, hemoglobin 14.2, sodium 135, AST/ALT 183 and 133. ASSESSMENT: 1. Intractable nausea and vomiting with possible acute gastritis. 2. Acute alcohol intoxication as well as acute delirium tremens. 3. Generalized gait dysfunction secondary to delirium tremens. 4. Acute alcoholic hepatitis. 5. Hypomagnesemia. 6. Severe alcohol abuse. 7. Hypertension. 8. History of gastroesophageal reflux disease. 9. History of gastrointestinal bleed. 10.History of seizure disorder, not on any antiepileptic medications. 11.History of obstructive sleep apnea. 12.Anxiety, depression. 13.Continued ongoing nicotine dependence. 14.History of THC. 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 16.Hyponatremia. 17.History of degenerative joint disease. 18.History of upper gastrointestinal bleed. 19.FULL CODE. RECOMMENDATIONS AND DISCUSSION: I recommend to continue current management and continue with symptomatic treatment. Continue with Ativan, continue with ( ), continue with vitamins. Increase ambulation. PT, OT evaluation. Prognosis guarded. Further recommendations to follow. MMODL / IJN: [id number] /
[2019-11-07] MEDS: LORazepam 2 MG/ML INJ IV PRN ×6 (00:41→19:29)
[2019-11-07] MEDS: HEPARIN SODIUM,PORCINE 5,000 UNIT/ML 1 ML VIAL SQ SCH ×4 (00:41→22:00)
[2019-11-07] MEDS: MORPHINE SULFATE 4 MG/ML SYRINGE IV PRN ×6 (01:47→22:00)
[2019-11-07 07:40] LABS: Basophils % (A) 1 %; Eosinophils # (A) 0.1 k/uL (0-0.7); Eosinophils % (A) 1 %; HGB 13.8 gm/dL (13.0-17.5); Lymphocytes # (A) 2.3 k/uL (1.0-4.8); Lymphocytes % (A) 32 %; MCH 29.3 pg (25.0-35.0); MCHC 31.4 g/dL (31.0-37.0); MCV 93.2 fL (80.0-100.0); Mean Platelet Volume 8.1; Monocytes # (A) 0.5 k/uL (0-1.0); Monocytes % (A) 7 %; Neutrophils # (A) 3.9 k/uL (1.3-7.7); Neutrophils % (A) 56 %; Platelet Count 147 k/uL (150-450); RBC 4.73 m/uL (4.30-5.90); RDW 14.5 % (11.5-15.5)
[2019-11-07] MEDS: GABAPENTIN 300 MG CAP PO SCH ×3 (09:24→20:02)
[2019-11-07] MEDS: LOSARTAN 50 MG TAB PO SCH (09:24)
[2019-11-07] MEDS: PANTOPRAZOLE 40 MG TABLET PO SCH ×2 (09:24→17:46)
[2019-11-07] MEDS: cloNIDine HCL 0.1 MG TAB PO SCH ×2 (09:24→20:02)
[2019-11-07] MEDS: MULTIVITAMINS, THERA 1 EACH TAB PO SCH (09:24)
[2019-11-07] MEDS: THIAMINE 100 MG TAB PO SCH ×2 (09:24→17:47)
[2019-11-07] MEDS: FOLIC ACID 1 MG TAB PO SCH (09:24)
[2019-11-07] MEDS: NICOTINE 21MG/24HR PATCH TRANSDERM SCH (09:24)
[2019-11-07] MEDS: MELOXICAM 7.5 MG TAB PO SCH (09:24)
--- NOTE | 2019-11-07 18:51 | PN ---
PROGRESS NOTE DATE OF SERVICE: 11/07/2019 This 44-year-old gentleman who was admitted with alcohol intoxication and DTs is being closely monitored. The patient has significant shaking and tremors at this time. No chest pain. No palpitations. No fever. PHYSICAL EXAMINATION: Alert and oriented x3. Pulse 68, blood pressure 116/64, respirations 16, temperature 98.3, pulse ox 94% on room air. HEENT: Conjunctivae normal. Oral mucosa moist. NECK: No jugular venous distention. No lymph node enlargement. CARDIOVASCULAR: S1, S2. RESPIRATORY: Diminished breath sounds at the bases. A few scattered rhonchi and crackles. ABDOMEN: Soft, nontender. LEGS: No edema, no swelling. NERVOUS SYSTEM: Diffuse tremors. LABS: CBC within normal. Platelets are 147. Other labs are noted. ASSESSMENT: 1. Intractable nausea and vomiting, possible acute gastritis, present on admission. 2. Acute delirium tremens with significant shaking and tremors. 3. Acute alcohol intoxication, present on admission. 4. Generalized gait dysfunction secondary to delirium tremens. 5. Acute alcoholic hepatitis. 6. Hypomagnesemia. 7. Severe alcohol abuse history. 8. Hypertension. 9. History of gastroesophageal reflux disease. 10.History of gastrointestinal bleed. 11.History of seizure disorder, not on any antiepileptic medications. 12.History of obstructive sleep apnea. 13.History of anxiety and depression. 14.Continued ongoing nicotine dependence. 15.History of THC. 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 17.Hyponatremia. 18.History of degenerative joint disease. 19.FULL CODE. RECOMMENDATIONS AND DISCUSSION: I recommend to continue current medication, continue symptomatic treatment. Continue with Ativan. Continue supplement vitamins. Otherwise, prognosis guarded because of the multiple complex medical issues and further recommendation to follow. Increase ambulation. MMODL / IJN: [id number] /
[2019-11-08] MEDS: MORPHINE SULFATE 4 MG/ML SYRINGE IV PRN ×2 (02:00→08:23)
[2019-11-08] MEDS: LORazepam 2 MG/ML INJ IV PRN ×2 (03:07→09:41)
[2019-11-08 07:31] VITALS: BP 143/87; PULSE 66; RESP 16; TEMP 98.5
[2019-11-08] MEDS: HEPARIN SODIUM,PORCINE 5,000 UNIT/ML 1 ML VIAL SQ SCH (08:22)
[2019-11-08] MEDS: GABAPENTIN 300 MG CAP PO SCH (08:22)
[2019-11-08] MEDS: NICOTINE 21MG/24HR PATCH TRANSDERM SCH (08:22)
[2019-11-08] MEDS: cloNIDine HCL 0.1 MG TAB PO SCH (08:22)
[2019-11-08] MEDS: THIAMINE 100 MG TAB PO SCH (08:23)
[2019-11-08] MEDS: PANTOPRAZOLE 40 MG TABLET PO SCH (08:23)
[2019-11-08] MEDS: MULTIVITAMINS, THERA 1 EACH TAB PO SCH (08:23)
[2019-11-08] MEDS: FOLIC ACID 1 MG TAB PO SCH (08:23)
[2019-11-08] MEDS: MELOXICAM 7.5 MG TAB PO SCH (08:23)
[2019-11-08] MEDS: LOSARTAN 50 MG TAB PO SCH (08:23)
[2019-11-08 08:57] LABS: Basophils % (A) 0 %; Eosinophils # (A) 0.1 k/uL (0-0.7); Eosinophils % (A) 2 %; HCT 46.2 % (39.0-53.0); HGB 15.4 gm/dL (13.0-17.5); Lymphocytes % (A) 27 %; MCH 31.5 pg (25.0-35.0); MCHC 33.3 g/dL (31.0-37.0); MCV 94.7 fL (80.0-100.0); Mean Platelet Volume 8.1; Monocytes # (A) 0.6 k/uL (0-1.0); Monocytes % (A) 8 %; Neutrophils # (A) 4.4 k/uL (1.3-7.7); Neutrophils % (A) 60 %; Platelet Count 164 k/uL (150-450); RBC 4.88 m/uL (4.30-5.90); RDW 14.4 % (11.5-15.5); WBC 7.3 k/uL (3.8-10.6)
--- NOTE | 2019-11-09 05:34 | DS ---
DISCHARGE SUMMARY FINAL DIAGNOSES: 1. Intractable nausea, vomiting, possibly acute gastritis, present on admission. 2. Acute delirium tremens with significant shaking and tremors. 3. Gait dysfunction. 4. Acute alcohol intoxication. 5. Generalized gait dysfunction secondary to delirium tremens. 6. Acute alcoholic hepatitis. 7. Hypomagnesemia. 8. Severe alcohol abuse history. 9. Hypertension. 10.History of gastroesophageal reflux disease. 11.History of gastrointestinal bleed. 12.History of seizure disorder, not on any antiepileptic medications. 13.History of obstructive sleep apnea. 14.History of anxiety, depression. 15.Continued ongoing nicotine dependence. 16.History of THC. 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 18.Hyponatremia. 19.History of degenerative joint disease. 20.FULL CODE. DISCHARGE DISPOSITION: The patient will be discharged in stable condition with guarded prognosis. Total time taken 35 minutes. HISTORY OF PRESENT ILLNESS: This 44-year-old gentleman with a past medical history of multiple medical problems admitted with significant intractable nausea and vomiting, and subsequent acute alcohol intoxication and features of acute delirium tremens. Patient treated with [facility] protocol. Ativan was given. Multivitamins were supplemented. With symptomatic treatment, patient did improve and the patient will be discharged in stable condition with guarded prognosis. On exam, vitals are stable. CARDIOVASCULAR: S1, S2 muffled. ABDOMEN: Soft. NERVOUS SYSTEM: Diffuse tremors present, minimal, improved. The patient is recommended alcohol rehab, which the patient will be following in the outpatient setting. DISCHARGE ADVICE: 1. Diet is cardiac. 2. No alcohol. 3. Follow up with Dr. Bynum in 1 to 2 days. Medications are: 1. Celebrex 200 mg p.o. daily. 2. Chantix p.r.n. 3. Flonase p.r.n. 4. Losartan 50 mg p.o. daily. 5. Neurontin 600 mg p.o. t.i.d. 6. Protonix 40 mg daily. 7. Ventolin p.r.n. 8. Zofran p.r.n. 9. Ativan p.r.n. 10.Catapres 0.1 p.o. b.i.d. 11.Folic acid 1 mg p.o. daily. 12.Habitrol 21 daily. 13.Inderal 10 mg p.o. t.i.d. 14.Multivitamins 1 p.o. daily. 15.Thiamine 100 mg daily. 16.Tylenol p.r.n. Once again the patient will be discharged in stable condition with guarded prognosis. MMODL / IJN: [id number] /
== END 2019-11-08 13:18 | disposition home or self-care (01) | DRG 897 ==
LOC: EC 06:16 → 3SCARD 08:32 → 4SSUR 11-06 09:15
PROVIDERS: ADMIT Hospitalist; ATTEND Hospitalist
DX: F10.231 Alcohol dependence with withdrawal delirium (principal); E87.1 Hypo-osmolality and hyponatremia; K29.20 Alcoholic gastritis without bleeding; I45.10 Unspecified right bundle-branch block; Z11.59 Encounter for screening for other viral diseases; K21.9 Gastro-esophageal reflux disease without esophagitis; I10 Essential (primary) hypertension; G40.909 Epilepsy, unspecified, not intractable, without status epilepticus; M19.90 Unspecified osteoarthritis, unspecified site; G47.33 Obstructive sleep apnea (adult) (pediatric); K70.10 Alcoholic hepatitis without ascites; E83.42 Hypomagnesemia; I83.90 Asymptomatic varicose veins of unspecified lower extremity; F41.9 Anxiety disorder, unspecified; F32.9 Major depressive disorder, single episode, unspecified; F17.210 Nicotine dependence, cigarettes, uncomplicated; E66.9 Obesity, unspecified; Y90.0 Blood alcohol level of less than 20 mg/100 ml; I25.10 Atherosclerotic heart disease of native coronary artery without angina pectoris; G62.1 Alcoholic polyneuropathy; D69.6 Thrombocytopenia, unspecified; R26.9 Unspecified abnormalities of gait and mobility; F10.220 Alcohol dependence with intoxication, uncomplicated; Z71.6 Tobacco abuse counseling; Z68.39 Body mass index [BMI] 39.0-39.9, adult; Z79.899 Other long term (current) drug therapy; Z79.1 Long term (current) use of non-steroidal anti-inflammatories (NSAID); Z87.19 Personal history of other diseases of the digestive system; Z87.01 Personal history of pneumonia (recurrent); Z98.890 Other specified postprocedural states; Z88.1 Allergy status to other antibiotic agents; Z88.8 Allergy status to other drugs, medicaments and biological substances; Z82.49 Family history of ischemic heart disease and other diseases of the circulatory system; Z82.69 Family history of other diseases of the musculoskeletal system and connective tissue; Z82.0 Family history of epilepsy and other diseases of the nervous system; Z82.61 Family history of arthritis; Z80.8 Family history of malignant neoplasm of other organs or systems
CPT/HCPCS: 36415; 80048; 80053; 80320; 83735; 84450; 84460; 84484; 85025; 85027; 85610; 85730; 87635; 93005; 96361; 96372; 96374; 96375; 96376; 99285

== ENCOUNTER 2019-12-31 01:37 | Emergency (ER) | payer OTHER ==
[2019-12-31 01:43] VITALS: TEMP 98.2
[2019-12-31] MEDS ORDERED: ASPIRIN 81 MG PO STA (01:58)
[2019-12-31] MEDS ORDERED: LORazepam 2 MG/ML INJ IV STA ×2 (01:59→04:11)
--- NOTE | 2019-12-31 02:13 | ED ---
Chest Pain HPI - General Chief Complaint: Chest Pain Stated Complaint: Sore Throat, Congestion, Chest Pain Time Seen by Provider: 12/31/19 01:46 Source: patient Mode of arrival: ambulatory Limitations: no limitations - History of Present Illness Initial Comments: Patient is a 44-year-old male with history of alcohol abuse, anxiety and hypertension presenting to the emergency department with a chief complaint of sore throat, sinus congestion and chest pain. Patient reports her last today she developed rhinorrhea, sinus congestion which is causing him to have a headache. Patient reports that he is a smoker as well. Patient reports today while he was at work, he developed midsternal chest pressure without any radiation. Patient states this is typical when he develops anxiety. States his anxiety has been recently increased because of concerns for coronavirus. States his only concern for some sore throat along with sinus congestion and facial pressure. States he does have bilateral rhinorrhea. States that he cut down on his drinking although he did have a pint of vodka and 9 AM this morning. States he has been otherwise taking his antihypertensive medication as recommended. He denies cough, fever, abdominal pain, nausea, vomiting, light headedness or dizziness. - Related Data Home Medications Medication Instructions Recorded Confirmed Losartan Potassium 50 mg PO DAILY 01/03/19 11/02/19 Pantoprazole Sodium 40 mg PO DAILY PRN 01/03/19 11/02/19 Gabapentin [Neurontin] 600 mg PO TID 03/04/19 11/02/19 Albuterol Inhaler [Ventolin Hfa 1 - 2 puff INHALATION RT-QID PRN 10/11/19 11/02/19 Inhaler] Celecoxib [CeleBREX] 200 mg PO DAILY 10/11/19 11/02/19 Fluticasone Nasal [place] [Flonase 2 spray EA NOSTRIL DAILY PRN 10/11/19 11/02/19 Nasal [place]] Varenicline [Chantix Starter Pack] See Taper PO DIRECTED 10/11/19 11/02/19 Ondansetron [Zofran ODT] 4 mg PO BID PRN 11/02/19 11/02/19 Previous Rx's Medication Instructions Recorded Acetaminophen Tab [Tylenol] 650 mg PO Q6HR PRN tab 10/14/19 Folic Acid 1 mg PO DAILY #30 tablet 10/14/19 Multivitamins, Thera [Multivitamin 1 tab PO DAILY #30 tablet 10/14/19 (formulary)] Thiamine [Vitamin B-1] 100 mg PO DAILY #30 tablet 10/14/19 LORazepam [Ativan] 1 mg PO TID PRN #20 tab 11/08/19 Nicotine 21Mg/24Hr Patch [Habitrol] 1 patch TRANSDERM DAILY #10 patch 11/08/19 Propranolol [Inderal] 10 mg PO TID #30 tab 11/08/19 cloNIDine HCL [Catapres] 0.1 mg PO BID #30 tab 11/08/19 ALPRAZolam [Xanax] 1 mg PO Q8HR PRN 2 Days #6 tab 12/31/19 Doxycycline Monohydrate [Monodox] 100 mg PO Q12HR #20 cap 12/31/19 Allergies Allergy/AdvReac Type Severity Reaction Status Date / Time Cephalosporins Allergy Severe Anaphylaxis Verified 12/31/19 01:44 diphenhydramine HCl Allergy Severe Anaphylaxis Verified 12/31/19 01:44 [From Benadryl] divalproex sodium Allergy Severe Anaphylaxis Verified 12/31/19 01:44 [From Depakote] ceftriaxone [From Rocephin] Allergy Unknown Verified 12/31/19 01:44 cephalexin [From Keflex] Allergy Unknown Verified 12/31/19 01:44 lisinopril Allergy Unknown Verified 12/31/19 01:44 Review of Systems ROS Statement: Those systems with pertinent positive or pertinent negative responses have been documented in the HPI. ROS Other: All systems not noted in ROS Statement are negative. Past Medical History Past Medical History: GERD/Reflux, GI Bleed, Hypertension, Osteoarthritis (OA), Pneumonia, Seizure Disorder, Sleep Apnea/CPAP/BIPAP Additional Past Medical History / Comment(s): Occasional bilateral pedal edema if stands long, arthritis possibly in back/ribs, MILIND without device, ETOH abuse, alcoholic seizures/blackouts/fainting, alcoholic hepatitis, alcoholic gastritis, upper GI bleed, hypomagnesemia, spinal stenosis/herniated disc with surgery, bilateral varicose veins, hemorrhoids History of Any Multi-Drug Resistant Organisms: None Reported Past Surgical History: Appendectomy, Back Surgery, Tonsillectomy Additional Past Surgical History / Comment(s): bilateral discectomy, discectomy L5-S1, EGD Past Anesthesia/Blood Transfusion Reactions: Motion Sickness Past Psychological History: Anxiety, Depression Smoking Status: Current every day smoker Past Alcohol Use History: Abuse, Daily, Heavy Past Drug Use History: Marijuana - Past Family History Father Family Medical History: Cancer, Dementia, Neurologic Disorder Additional Family Medical History / Comment(s): melanoma, parkinsons Mother Family Medical History: Hypertension, Musculoskeletal Disorder, Neurologic Disorder, Osteoarthritis (OA) Additional Family Medical History / Comment(s): Mother of motor neuron disease at the age of 78yrs. General Exam Limitations: no limitations General appearance: alert, in no apparent distress, obese, other (Generalized tremors) Head exam: Present: atraumatic, normocephalic, normal inspection Eye exam: Present: normal appearance, PERRL, EOMI Pupils: Present: normal accommodation ENT exam: Present: normal exam, normal oropharynx (Maxillary and sinus tendern ess), mucous membranes moist, TM's normal bilaterally, normal external ear exam Neck exam: Present: normal inspection, full ROM. Absent: tenderness, lymphadenopathy Respiratory exam: Present: normal lung sounds bilaterally. Absent: respiratory distress, wheezes, rales Cardiovascular Exam: Present: regular rate, normal rhythm, normal heart sounds Extremities exam: Present: normal inspection, full ROM. Absent: tenderness Back exam: Present: normal inspection, full ROM. Absent: tenderness Neurological exam: Present: alert, oriented X3, normal gait Psychiatric exam: Present: normal affect, anxious Skin exam: Present: warm, dry, intact, normal color Course Vital Signs 12/31/19 12/31/19 12/31/19 01:41 02:00 02:30 Temperature 98.2 F Pulse Rate 107 H 96 80 Respiratory 18 18 18 Rate Blood Pressure 195/108 182/97 129/94 O2 Sat by Pulse 99 98 98 Oximetry 12/31/19 12/31/19 12/31/19 02:43 03:00 03:30 Temperature Pulse Rate 79 89 Respiratory 20 18 18 Rate Blood Pressure 132/79 143/86 O2 Sat by Pulse 98 100 Oximetry 12/31/19 05:33 Temperature Pulse Rate 75 Respiratory 18 Rate Blood Pressure 147/87 O2 Sat by Pulse 99 Oximetry Chest Pain MDM - Differential Diagnosis ACS - MDM Patient is a 44-year-old male with history of hypertension and alcohol abuse, anxiety presenting to emergency Department with chief complaint of sore throat, sinus congestion and chest pain. On initial evaluation, patient is tremulous and was given 1 mg of Ativan. Patient was initially anxious as well, after the anxiolytics the blood pressure is also decreased. On exam patient has some frontal and maxillary sinus tenderness. I do suspect a sinus infection. Patient does have some anxiety because of the current pandemic states the chest pain is most likely related to that. Initial troponin negative. Patient had recent hospitalization for alcohol intoxication and chest pain. He was dilated by cardiology and was cleared. He was advised to follow up with outpatient steam [employer] records clerk but never did. Secondary troponin pending. EKG shows incomplete right bundle bunch block with prolonged QT. Chest x-ray unremarkable. Patient is started on Augmentin for sinus infection. Will be discharged with Augmentin. He was advised to follow-up with a steam [employer] records clerk. Return parameters were thoroughly discussed with patient who is understanding and agreeable. Case discussed with physician. Disposition Clinical Impression: Atypical chest pain, Acute anxiety, Sinus infection Disposition: HOME SELF-CARE Condition: Good Instructions (If sedation given, give patient instructions): Sinusitis (ED), Anxiety (ED) Additional Instructions: Take prescribed medication as directed. Follow up with a steam [employer] records clerk. Return to the emergency department if symptoms worsen. Prescriptions: Doxycycline Monohydrate [Monodox] 100 mg PO Q12HR #20 cap ALPRAZolam [Xanax] 1 mg PO Q8HR PRN 2 Days #6 tab PRN Reason: Anxiety Is patient prescribed a controlled substance at d/c from ED?: Yes If prescribed controlled substance>3 days was MAPS reviewed?: Prescribed <3 Days Referrals: Veena Bynum DO [Primary Care Provider] - 1-2 days Nurys Campos MD [STAFF PHYSICIAN] - 1-2 days Time of Disposition: 03:45
[2019-12-31 02:26] LABS: Basophils % (A) 0 %; Eosinophils # (A) 0.1 k/uL (0-0.7); Eosinophils % (A) 1 %; HCT 44.2 % (39.0-53.0); HGB 14.8 gm/dL (13.0-17.5); Lymphocytes # (A) 1.8 k/uL (1.0-4.8); Lymphocytes % (A) 23 %; MCH 31.7 pg (25.0-35.0); MCHC 33.5 g/dL (31.0-37.0); MCV 94.5 fL (80.0-100.0); Mean Platelet Volume 8.2; Monocytes # (A) 0.4 k/uL (0-1.0); Monocytes % (A) 5 %; Neutrophils # (A) 5.2 k/uL (1.3-7.7); Neutrophils % (A) 68 %; Platelet Count 195 k/uL (150-450); RBC 4.68 m/uL (4.30-5.90); RDW 12.6 % (11.5-15.5); WBC 7.6 k/uL (3.8-10.6)
[2019-12-31 02:36] LABS: ALT 18 U/L (4-49); AST 47 U/L (17-59); African American GFR (CKD) >90 (>60 ml/min/1.73 sqM); Alkaline Phosphatase 58 U/L (38-126); Anion Gap 9 mmol/L; Blood Urea Nitrogen 19 mg/dL (9-20); Calcium 9.4 mg/dL (8.4-10.2); Carbon Dioxide 25 mmol/L (22-30); Chloride 103 mmol/L (98-107); Glucose 108 mg/dL (74-99); INR 0.9 (<1.2); Magnesium 1.7 mg/dL (1.6-2.3); Non-African American GFR(CKD) >90 (>60 ml/min/1.73 sqM); Partial Thromboplastin Time 24.7 sec (22.0-30.0); Potassium 4.5 mmol/L (3.5-5.1); Prothrombin Time 9.8 sec (9.0-12.0); Sodium 137 mmol/L (137-145); Total Protein 7.7 g/dL (6.3-8.2)
--- NOTE | 2019-12-31 02:49 | XR ---
EXAMINATION TYPE: XR chest 2V DATE OF EXAM: 12/31/2019 COMPARISON: 10/11/2019 HISTORY: Chest pain TECHNIQUE: FINDINGS: Heart and mediastinum are normal. Lungs are clear. Diaphragm is normal. Bony thorax appears normal. There are chest leads. IMPRESSION: Normal chest. No change.
[2019-12-31 03:43] VITALS: RESP 18
[2019-12-31] MEDS ORDERED: Acetaminophen-Codeine 300-30mg TAB PO STA (03:46)
[2019-12-31] MEDS ORDERED: DOXYCYCLINE 50 MG CAP PO STA (04:10)
[2019-12-31 05:36] VITALS: BP 147/87; PULSE 75
== END 2019-12-31 05:35 | disposition home or self-care (01) ==
LOC: EC 01:37
DX: R07.89 Other chest pain (principal); F41.9 Anxiety disorder, unspecified; J32.9 Chronic sinusitis, unspecified; I45.10 Unspecified right bundle-branch block; G47.33 Obstructive sleep apnea (adult) (pediatric); I10 Essential (primary) hypertension; K21.9 Gastro-esophageal reflux disease without esophagitis; M19.90 Unspecified osteoarthritis, unspecified site; G40.909 Epilepsy, unspecified, not intractable, without status epilepticus; F10.129 Alcohol abuse with intoxication, unspecified; F17.200 Nicotine dependence, unspecified, uncomplicated; Y90.9 Presence of alcohol in blood, level not specified; Z79.899 Other long term (current) drug therapy; Z79.1 Long term (current) use of non-steroidal anti-inflammatories (NSAID); Z88.8 Allergy status to other drugs, medicaments and biological substances; Z88.1 Allergy status to other antibiotic agents; Z88.6 Allergy status to analgesic agent; Z99.89 Dependence on other enabling machines and devices
CPT/HCPCS: 36415; 93005; 80053; 83735; 84484; 85025; 85610; 85730; 71046; 99285; 96374; 96376; J2060

== ENCOUNTER 2020-01-23 22:28 | Inpatient (IN) | payer BC, OTHER ==
[2020-01-23] MEDS ORDERED: LORazepam 2 MG/ML INJ IV STA (23:10)
[2020-01-23] MEDS ORDERED: SODIUM CHLORIDE 0.9% 1,000 ML IV STA (23:10)
[2020-01-23] MEDS ORDERED: THIAMINE 200 MG in SODIUM CHLORIDE 0.9% 100 ML IVPB STA (23:11)
--- NOTE | 2020-01-23 23:23 | ED ---
Alcohol HPI - General Chief Complaint: Alcohol Stated Complaint: Alcohol withdrawal Time Seen by Provider: 01/23/20 23:09 Source: patient, RN notes reviewed Mode of arrival: ambulatory Limitations: no limitations - History of Present Illness Initial Comments: 44-year-old male presents emergency Department chief complaint alcohol withdrawal. Patient states that he has severe shaking, nausea and vomiting. Patient states that he's been drinking at least 1/5 of alcohol daily. 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 Patient states he has some mild abdominal pain. Patient states that he is very shaky and feels that it's going to have a seizure. Patient states that he has had help in the past but states that he is getting worse at this point. - Related Data Home Medications Medication Instructions Recorded Confirmed RX: Losartan Potassium 50 mg PO DAILY 01/03/19 11/02/19 RX: Pantoprazole Sodium 40 mg PO DAILY PRN 01/03/19 11/02/19 RX: Gabapentin [Neurontin] 600 mg PO TID 03/04/19 11/02/19 RX: Albuterol Inhaler [Ventolin 1 - 2 puff INHALATION RT-QID PRN 10/11/19 Hfa Inhaler] RX: Celecoxib [CeleBREX] 200 mg PO DAILY 10/11/19 11/02/19 RX: Fluticasone Nasal [place] 2 spray EA NOSTRIL DAILY PRN 10/11/19 11/02/19 [Flonase Nasal [place]] RX: Varenicline [Chantix Starter See Taper PO DIRECTED 10/11/19 11/02/19 Pack] RX: Ondansetron [Zofran ODT] 4 mg PO BID PRN 11/02/19 11/02/19 Previous Rx's Medication Instructions Recorded RX: Acetaminophen Tab [Tylenol] 650 mg PO Q6HR PRN tab 10/14/19 RX: Folic Acid 1 mg PO DAILY #30 tablet 10/14/19 RX: Multivitamins, Thera 1 tab PO DAILY #30 tablet 10/14/19 [Multivitamin (formulary)] RX: Thiamine [Vitamin B-1] 100 mg PO DAILY #30 tablet 10/14/19 LORazepam [Ativan] 1 mg PO TID PRN #20 tab 11/08/19 Propranolol [Inderal] 10 mg PO TID #30 tab 11/08/19 RX: Nicotine 21Mg/24Hr Patch 1 patch TRANSDERM DAILY #10 patch 11/08/19 [Habitrol] RX: cloNIDine HCL [Catapres] 0.1 mg PO BID #30 tab 11/08/19 ALPRAZolam [Xanax] 1 mg PO Q8HR PRN 2 Days #6 tab 12/31/19 RX: Doxycycline Monohydrate 100 mg PO Q12HR #20 cap 12/31/19 [Monodox] Allergies Allergy/AdvReac Type Severity Reaction Status Date / Time Cephalosporins Allergy Severe Anaphylaxis Verified 01/23/20 22:44 diphenhydramine HCl Allergy Severe Anaphylaxis Verified 01/23/20 22:44 [From Benadryl] divalproex sodium Allergy Severe Anaphylaxis Verified 01/23/20 22:44 [From Depakote] ceftriaxone [From Rocephin] Allergy Unknown Verified 01/23/20 22:44 cephalexin [From Keflex] Allergy Unknown Verified 01/23/20 22:44 lisinopril Allergy Unknown Verified 01/23/20 22:44 Review of Systems ROS Statement: Those systems with pertinent positive or pertinent negative responses have been documented in the HPI. ROS Other: All systems not noted in ROS Statement are negative. Past Medical History Past Medical History: GERD/Reflux, GI Bleed, Hypertension, Osteoarthritis (OA), Pneumonia, Seizure Disorder, Sleep Apnea/CPAP/BIPAP Additional Past Medical History / Comment(s): Occasional bilateral pedal edema if stands long, arthritis possibly in back/ribs, MILIND without device, ETOH abuse, alcoholic seizures/blackouts/fainting, alcoholic hepatitis, alcoholic gastritis, upper GI bleed, hypomagnesemia, spinal stenosis/herniated disc with surgery, bilateral varicose veins, hemorrhoids History of Any Multi-Drug Resistant Organisms: None Reported Past Surgical History: Appendectomy, Back Surgery, Tonsillectomy Additional Past Surgical History / Comment(s): bilateral discectomy, discectomy L5-S1, EGD Past Anesthesia/Blood Transfusion Reactions: Motion Sickness Past Psychological History: Anxiety, Depression Smoking Status: Current every day smoker Past Alcohol Use History: Abuse, Daily, Heavy Past Drug Use History: Marijuana - Past Family History Father Family Medical History: Cancer, Dementia, Neurologic Disorder Additional Family Medical History / Comment(s): melanoma, parkinsons Mother Family Medical History: Hypertension, Musculoskeletal Disorder, Neurologic Disorder, Osteoarthritis (OA) Additional Family Medical History / Comment(s): Mother of motor neuron disease at the age of 78yrs. General Exam Limitations: no limitations General appearance: alert, in no apparent distress Head exam: Present: atraumatic, normocephalic, normal inspection Eye exam: Present: normal appearance, PERRL, EOMI. Absent: scleral icterus, conjunctival injection, periorbital swelling ENT exam: Present: normal exam, normal oropharynx, mucous membranes moist Neck exam: Present: normal inspection, full ROM. Absent: tenderness, meningismus, lymphadenopathy Respiratory exam: Present: normal lung sounds bilaterally. Absent: respiratory distress, wheezes, rales, rhonchi, stridor Cardiovascular Exam: Present: regular rate, normal rhythm, normal heart sounds. Absent: systolic murmur, diastolic murmur, rubs, gallop, clicks Neurological exam: Present: alert, oriented X3, CN II-XII intact, reflexes normal. Absent: motor sensory deficit Skin exam: Present: warm, dry, intact, normal color. Absent: rash Course Vital Signs 01/23/20 22:39 Temperature 98.6 F Pulse Rate 96 Respiratory 20 Rate Blood Pressure 158/88 O2 Sat by Pulse 98 Oximetry Medical Decision Making - Medical Decision Making 44-year-old male presented for withdrawal from alcohol. Patient is sober it's time. Patient has severe shaking, pending DTs. Patiently admitted for Ativan withdrawal a vehicle - Lab Data Result diagrams: 01/23/20 23:37 01/23/20 23:37 Lab Results 01/23/20 01/23/20 01/23/20 Range/Units 23:37 23:37 23:52 WBC 8.3 (3.8-10.6) k/uL RBC 4.87 (4.30-5.90) m/uL Hgb 14.7 (13.0-17.5) gm/dL Hct 45.5 (39.0-53.0) % MCV 93.3 (80.0-100.0) fL MCH 30.2 (25.0-35.0) pg MCHC 32.3 (31.0-37.0) g/dL RDW 12.6 (11.5-15.5) % Plt Count 195 (150-450) k/uL Neutrophils % 70 % Lymphocytes % 21 % Monocytes % 6 % Eosinophils % 1 % Basophils % 1 % Neutrophils # 5.8 (1.3-7.7) k/uL Lymphocytes # 1.8 (1.0-4.8) k/uL Monocytes # 0.5 (0-1.0) k/uL Eosinophils # 0.1 (0-0.7) k/uL Basophils # 0.0 (0-0.2) k/uL Sodium 136 L (137-145) mmol/L Potassium 4.3 (3.5-5.1) mmol/L Chloride 99 (98-107) mmol/L Carbon Dioxide 26 (22-30) mmol/L Anion Gap 11 mmol/L BUN 13 (9-20) mg/dL Creatinine 0.68 (0.66-1.25) mg/dL Est GFR (CKD-EPI)AfAm >90 (>60 ml/min/1.73 sqM) Est GFR (CKD-EPI)NonAf >90 (>60 ml/min/1.73 sqM) Glucose 112 H (74-99) mg/dL Calcium 9.4 (8.4-10.2) mg/dL Magnesium 1.6 (1.6-2.3) mg/dL Total Bilirubin 1.4 H (0.2-1.3) mg/dL AST 46 (17-59) U/L ALT 18 (4-49) U/L Alkaline Phosphatase 57 (38-126) U/L Total Protein 7.3 (6.3-8.2) g/dL Albumin 4.7 (3.5-5.0) g/dL Lipase 51 (23-300) U/L Urine Color Light Yellow Urine Appearance Clear (Clear) Urine pH 7.5 (5.0-8.0) Ur Specific [place] 1.008 (1.001-1.035) Urine Protein Negative (Negative) Urine Glucose (UA) Negative (Negative) Urine Ketones Negative (Negative) Urine Blood Negative (Negative) Urine Nitrite Negative (Negative) Urine Bilirubin Negative (Negative) Urine Urobilinogen <2.0 (<2.0) mg/dL Ur Leukocyte Esterase Negative (Negative) Serum Alcohol <10 mg/dL Disposition Clinical Impression: Alcohol addiction, Alcohol withdrawal, Nausea & vomiting Disposition: ADMITTED IP TO THIS HOSP Condition: Fair Referrals: Veena Bynum DO [Primary Care Provider] - 1-2 days
[2020-01-24] LABS: Basophils % (A) 1 %; Eosinophils # (A) 0.1 k/uL (0-0.7); Eosinophils % (A) 1 %; HCT 45.5 % (39.0-53.0); HGB 14.7 gm/dL (13.0-17.5); Lymphocytes # (A) 1.8 k/uL (1.0-4.8); Lymphocytes % (A) 21 %; MCH 30.2 pg (25.0-35.0); MCHC 32.3 g/dL (31.0-37.0); MCV 93.3 fL (80.0-100.0); Mean Platelet Volume 7.5; Monocytes # (A) 0.5 k/uL (0-1.0); Monocytes % (A) 6 %; Neutrophils # (A) 5.8 k/uL (1.3-7.7); Neutrophils % (A) 70 %; Platelet Count 195 k/uL (150-450); RBC 4.87 m/uL (4.30-5.90); RDW 12.6 % (11.5-15.5); WBC 8.3 k/uL (3.8-10.6)
[2020-01-24 00:01] LABS: Appearance,Urine Clear (Clear); Bilirubin,Urine Negative (Negative); Blood,Urine Negative (Negative); Color,Urine Light Yellow; Glucose,Urine (UA) Negative (Negative); Ketones,Urine Negative (Negative); Leukocyte Esterase,Urine Negative (Negative); Nitrite,Urine Negative (Negative); PH, Urine 7.5 (5.0-8.0); Protein,Urine Negative (Negative); Specific Gravity,Urine 1.008 (1.001-1.035); Urobilinogen,Urine <2.0 mg/dL (<2.0)
[2020-01-24 00:11] LABS: ALT 18 U/L (4-49); AST 46 U/L (17-59); African American GFR (CKD) >90 (>60 ml/min/1.73 sqM); Albumin 4.7 g/dL (3.5-5.0); Alcohol <10 mg/dL; Alkaline Phosphatase 57 U/L (38-126); Anion Gap 11 mmol/L; Blood Urea Nitrogen 13 mg/dL (9-20); Calcium 9.4 mg/dL (8.4-10.2); Carbon Dioxide 26 mmol/L (22-30); Chloride 99 mmol/L (98-107); Glucose 112 mg/dL (74-99); Magnesium 1.6 mg/dL (1.6-2.3); Non-African American GFR(CKD) >90 (>60 ml/min/1.73 sqM); Potassium 4.3 mmol/L (3.5-5.1); Sodium 136 mmol/L (137-145); Total Bilirubin 1.4 mg/dL (0.2-1.3); Total Protein 7.3 g/dL (6.3-8.2)
[2020-01-24] MEDS ORDERED: LORazepam 2 MG/ML INJ IV STA (00:12)
[2020-01-24] MEDS ORDERED: LORazepam 2 MG/ML INJ IV PRN ×2 (00:15)
[2020-01-24] MEDS ORDERED: ONDANSETRON 4 MG/2 ML VIAL IVP PRN (00:16)
[2020-01-24] MEDS ORDERED: NALOXONE 0.4 MG/ML 1 ML VIAL IV PRN (00:16)
[2020-01-24] MEDS ORDERED: MAG HYDROX/AL HYDROX/SIMETH 30 ML, HYOSCYAMINE ELIXIR 10 ML PO STA ×2 (00:58)
[2020-01-24] MEDS: SODIUM CHLORIDE 0.9% 1,000 ML IV SCH ×3 (01:03→20:48)
[2020-01-24] MEDS: LORazepam 2 MG/ML INJ IV PRN ×6 (05:47→23:37)
[2020-01-24] MEDS ORDERED: ALBUTEROL HFA INHALER INHALATION PRN (08:36)
[2020-01-24] MEDS ORDERED: FLUTICASONE 50MCG/SPRAY NASAL 16GM EA NOSTRIL PRN (08:36)
[2020-01-24] MEDS ORDERED: ONDANSETRON ODT 4 MG TAB PO PRN (08:36)
[2020-01-24] MEDS ORDERED: PANTOPRAZOLE 40 MG TABLET PO PRN (08:36)
[2020-01-24] MEDS: GABAPENTIN 300 MG CAP PO SCH ×3 (08:43→21:25)
[2020-01-24] MEDS: LOSARTAN 50 MG TAB PO SCH (08:43)
[2020-01-24] MEDS: ACETAMINOPHEN TAB 325 MG TAB PO PRN ×2 (08:43→21:25)
[2020-01-24] MEDS: cloNIDine HCL 0.1 MG TAB PO SCH ×2 (08:43→21:25)
[2020-01-24] MEDS: MELOXICAM 7.5 MG TAB PO SCH (08:53)
[2020-01-24] MEDS: THIAMINE 100 MG TAB PO SCH ×2 (08:53→17:01)
[2020-01-24] MEDS: MULTIVITAMINS, THERA 1 EACH TAB PO SCH (08:53)
[2020-01-24] MEDS: NICOTINE 21MG/24HR PATCH TRANSDERM SCH (08:53)
[2020-01-24] MEDS: FOLIC ACID 1 MG TAB PO SCH (08:54)
[2020-01-24] MEDS: PROPRANOLOL 10 MG TAB PO SCH ×3 (10:24→21:59)
--- NOTE | 2020-01-24 22:23 | P.HPIM ---
History of Present Illness H&P Date: 01/24/20 Chief Complaint: Withdrawal symptoms Patient is a 44-year-old male with a known history of hypertension, severe alcohol abuse, currently everyday smoker and marijuana use, osteoarthritis, history of GI bleed, obstructive sleep apnea not on CPAP at home, history of alcohol withdrawal seizures and alcoholic hepatitis presents to ER with complaints of alcohol withdrawal symptoms. Patient states that he has been having severe shakiness along with nausea and vomiting. Patient does drink at least 1/5 of alcohol daily. Patient is also complaining of abdominal pain mainly in the epigastric region. Denied any hematemesis. Patient was so shaky that he felt like he was having seizure. Presents to ER for further evaluation. Laboratory data showed WBC 8.3, hemoglobin 14.7 and platelets 195 Sodium 136, potassium 4.3, BUN 13 and creatinine 0.68 Bilirubin total 1.4 magnesium 1.6 Urinalysis negative for infection. Serum alcohol level is less than 10 Review of Systems Constitutional: Patient denies any fever or chills . No generalized weakness or weight loss. Abdomen: Patient denied nausea vomiting and diarrhea and abdominal pain. Cardiovascular: Patient denies any chest pain or short of breath no palpitations. Respiratory: patient denied any cough is from production. No shortness of breath Patient is very drowsy and lethargic and complete review of systems could not be obtained from the patient at this time. Past Medical History Past Medical History: GERD/Reflux, GI Bleed, Hypertension, Osteoarthritis (OA), Pneumonia, Seizure Disorder, Sleep Apnea/CPAP/BIPAP Additional Past Medical History / Comment(s): Occasional bilateral pedal edema if stands long, arthritis possibly in back/ribs, MILIND without device, ETOH abuse, alcoholic seizures/blackouts/fainting, alcoholic hepatitis, alcoholic gastritis, upper GI bleed, hypomagnesemia, spinal stenosis/herniated disc with surgery, bilateral varicose veins, hemorrhoids History of Any Multi-Drug Resistant Organisms: None Reported Past Surgical History: Appendectomy, Back Surgery, Tonsillectomy Additional Past Surgical History / Comment(s): bilateral discectomy, discectomy L5-S1, EGD Past Anesthesia/Blood Transfusion Reactions: Motion Sickness Past Psychological History: Anxiety, Depression Smoking Status: Current every day smoker Past Alcohol Use History: Abuse, Daily, Heavy Past Drug Use History: Marijuana - Past Family History Father Family Medical History: Cancer, Dementia, Neurologic Disorder Additional Family Medical History / Comment(s): melanoma, parkinsons Mother Family Medical History: Hypertension, Musculoskeletal Disorder, Neurologic Disorder, Osteoarthritis (OA) Additional Family Medical History / Comment(s): Mother of motor neuron disease at the age of 78yrs. Medications and Allergies Home Medications Medication Instructions Recorded Confirmed Type Losartan Potassium 50 mg PO DAILY 01/03/19 01/24/20 History Pantoprazole Sodium 40 mg PO DAILY 01/03/19 01/24/20 History Gabapentin [Neurontin] 600 mg PO TID 03/04/19 01/24/20 History Albuterol Inhaler [Ventolin Hfa 1 - 2 puff INHALATION RT-QID PRN 10/11/19 01/24/20 History Inhaler] Celecoxib [CeleBREX] 200 mg PO DAILY PRN 10/11/19 01/24/20 History Fluticasone Nasal [place] [Flonase 2 spray EA NOSTRIL BID 10/11/19 01/24/20 History Nasal [place]] Multivitamins, Thera [Multivitamin 1 tab PO DAILY #30 tablet 10/14/19 01/24/20 Rx (formulary)] ALPRAZolam [Xanax] 1 mg PO BID PRN 01/24/20 01/24/20 History traZODone HCL [Desyrel] 100 mg PO HS 01/24/20 01/24/20 History Allergies Allergy/AdvReac Type Severity Reaction Status Date / Time Cephalosporins Allergy Severe Anaphylaxis Verified 01/24/20 09:54 diphenhydramine HCl Allergy Severe Anaphylaxis Verified 01/24/20 09:54 [From Benadryl] divalproex sodium Allergy Severe Anaphylaxis Verified 01/24/20 09:54 [From Depakote] ceftriaxone [From Rocephin] Allergy Anaphylaxis Verified 01/24/20 09:54 cephalexin [From Keflex] Allergy Anaphylaxis Verified 01/24/20 09:54 lisinopril Allergy Anaphylaxis Verified 01/24/20 09:54 Physical Exam Vitals: Vital Signs Temp Pulse Resp BP Pulse Ox 01/24/20 09:00 65 18 141/91 100 01/24/20 08:00 18 01/24/20 05:30 98.2 F 71 18 125/73 97 01/24/20 01:22 98.1 F 70 19 129/80 98 01/23/20 22:39 98.6 F 96 20 158/88 98 Intake and Output 01/23/20 01/24/20 01/24/20 22:59 06:59 14:59 Other: Weight 136.078 kg PHYSICAL EXAMINATION: Patient is lying in the bed comfortably, no acute distress, awake alert and tyesha entedBut drowsy and lethargic... HEENT: Normocephalic. Neck is supple. Pupils reactive. Nostrils clear. Oral cavity is moist. Ears reveal no drainage. Neck reveals no JVD, carotid bruits, or thyromegaly. CHEST EXAMINATION: Trachea is central. Symmetrical expansion. Lung llamas clear to auscultation and percussion. CARDIAC: Normal S1, S2 with no gallops. No murmurs ABDOMEN: Soft. Bowel sounds normal. No organomegaly. No abdominal bruits. Extremities: reveal no edema. No clubbing or cyanosis Neurologically awake, alert, oriented x3 with well-coordinated movements. No focal deficits noted Skin: No rash or skin lesions. Psychiatric: Coperative. Musculoskeletal: No joint swelling or deformity. Normal range of motion. Results CBC & Chem 7: 01/23/20 23:37 01/23/20 23:37 Labs: Abnormal Lab Results - Last 24 Hours (Table) 01/23/20 Range/Units 23:37 Sodium 136 L (137-145) mmol/L Glucose 112 H (74-99) mg/dL Total Bilirubin 1.4 H (0.2-1.3) mg/dL Thrombosis Risk Factor Assmnt - DVT/VTE Prophylaxis DVT/VTE Prophylaxis: Pharmacologic Prophylaxis ordered Assessment and Plan Assessment: Acute alcohol withdrawal syndrome Severe alcohol abuse Hypomagnesemia History of alcoholic gastritis Stable GI bleed GERD Hypertension Obstructive sleep apnea not on CPAP History of alcohol withdrawal seizure disorder Anxiety/depression Daily heavy alcohol abuse Marijuana use DVT prophylaxis with heparin subcu Plan: Patient will be continued on IV hydration and replace magnesium and monitor e lectrolytes. Continue with alcohol withdrawal protocol. Continue with fall and seizure precautions. Continue with PPI and follow-up closely. Time with Patient: Greater than 30
[2020-01-24] MEDS: MAGNESIUM SULFATE-D5W PMX 1 GM in DEXTROSE/WATER 1 100ML.BAG IVPB SCH ×2 (22:25→23:25)
[2020-01-24] MEDS: HEPARIN SODIUM,PORCINE 5,000 UNIT/ML 1 ML VIAL SQ SCH (23:25)
[2020-01-25] MEDS: ACETAMINOPHEN TAB 325 MG TAB PO PRN ×3 (02:58→20:17)
[2020-01-25] MEDS: LORazepam 2 MG/ML INJ IV PRN ×7 (02:59→22:22)
[2020-01-25] MEDS: SODIUM CHLORIDE 0.9% 1,000 ML IV SCH ×2 (05:31→22:39)
[2020-01-25] MEDS: HEPARIN SODIUM,PORCINE 5,000 UNIT/ML 1 ML VIAL SQ SCH ×2 (08:18→15:55)
[2020-01-25] MEDS: PROPRANOLOL 10 MG TAB PO SCH ×3 (08:18→22:18)
[2020-01-25] MEDS: THIAMINE 100 MG TAB PO SCH ×4 (08:18→17:44)
[2020-01-25] MEDS: MELOXICAM 7.5 MG TAB PO SCH (08:19)
[2020-01-25] MEDS: GABAPENTIN 300 MG CAP PO SCH ×3 (08:19→22:18)
[2020-01-25] MEDS: LOSARTAN 50 MG TAB PO SCH (08:19)
[2020-01-25] MEDS: MULTIVITAMINS, THERA 1 EACH TAB PO SCH (08:19)
[2020-01-25] MEDS: FOLIC ACID 1 MG TAB PO SCH (08:19)
[2020-01-25] MEDS: cloNIDine HCL 0.1 MG TAB PO SCH ×2 (08:20→22:18)
[2020-01-25] MEDS: NICOTINE 21MG/24HR PATCH TRANSDERM SCH (08:42)
[2020-01-25 10:02] LABS: ALT 18 U/L (4-49); AST 40 U/L (17-59); African American GFR (CKD) >90 (>60 ml/min/1.73 sqM); Albumin 3.8 g/dL (3.5-5.0); Alkaline Phosphatase 48 U/L (38-126); Anion Gap 7 mmol/L; Blood Urea Nitrogen 10 mg/dL (9-20); Calcium 8.6 mg/dL (8.4-10.2); Carbon Dioxide 27 mmol/L (22-30); Chloride 104 mmol/L (98-107); Glucose 176 mg/dL (74-99); Non-African American GFR(CKD) >90 (>60 ml/min/1.73 sqM); Potassium 4.4 mmol/L (3.5-5.1); Sodium 138 mmol/L (137-145); Total Protein 6.1 g/dL (6.3-8.2)
[2020-01-25 20:28] LABS: Glucose,Whole Blood 118 mg/dL (75-99)
[2020-01-26] MEDS: HEPARIN SODIUM,PORCINE 5,000 UNIT/ML 1 ML VIAL SQ SCH ×4 (00:32→22:32)
[2020-01-26] MEDS: LORazepam 2 MG/ML INJ IV PRN ×10 (00:32→22:33)
[2020-01-26] MEDS: ACETAMINOPHEN TAB 325 MG TAB PO PRN ×3 (03:00→22:32)
[2020-01-26] MEDS: SODIUM CHLORIDE 0.9% 1,000 ML IV SCH ×2 (03:17→08:44)
[2020-01-26] MEDS: NICOTINE 21MG/24HR PATCH TRANSDERM SCH (08:42)
[2020-01-26] MEDS: LOSARTAN 50 MG TAB PO SCH (08:42)
[2020-01-26] MEDS: GABAPENTIN 300 MG CAP PO SCH ×3 (08:42→20:01)
[2020-01-26] MEDS: THIAMINE 100 MG TAB PO SCH ×2 (08:42→17:49)
[2020-01-26] MEDS: MELOXICAM 7.5 MG TAB PO SCH (08:43)
[2020-01-26] MEDS: cloNIDine HCL 0.1 MG TAB PO SCH ×2 (08:43→20:01)
[2020-01-26] MEDS: MULTIVITAMINS, THERA 1 EACH TAB PO SCH (08:43)
[2020-01-26] MEDS: FOLIC ACID 1 MG TAB PO SCH (08:43)
[2020-01-26] MEDS: PROPRANOLOL 10 MG TAB PO SCH ×3 (08:44→20:01)
[2020-01-27] MEDS: SODIUM CHLORIDE 0.9% 1,000 ML IV SCH ×2 (00:24→10:04)
[2020-01-27] MEDS: LORazepam 2 MG/ML INJ IV PRN ×3 (00:58→06:28)
[2020-01-27 01:07] VITALS: PULSE 63
--- NOTE | 2020-01-27 01:27 | P.PN ---
Subjective Progress Note Date: 01/25/20 Principal diagnosis: Acute alcohol withdrawal syndrome Patient is a 44-year-old male with a known history of hypertension, severe alcohol abuse, currently everyday smoker and marijuana use, osteoarthritis, history of GI bleed, obstructive sleep apnea not on CPAP at home, history of alcohol withdrawal seizures and alcoholic hepatitis presents to ER with complaints of alcohol withdrawal symptoms. Patient states that he has been having severe shakiness along with nausea and vomiting. Patient does drink at least 1/5 of alcohol daily. Patient is also complaining of abdominal pain mainly in the epigastric region. Denied any hematemesis. Patient was so shaky that he felt like he was having seizure. Presents to ER for further evaluation. Laboratory data showed WBC 8.3, hemoglobin 14.7 and platelets 195 Sodium 136, potassium 4.3, BUN 13 and creatinine 0.68 Bilirubin total 1.4 magnesium 1.6 Urinalysis negative for infection. Serum alcohol level is less than 10 01/25/2020 Patient is currently lying in the bed still shaky and requiring [id number] Ativan. No complaints of chest pain or shortness of breath. No fever no chills. Tolerating oral diet. Patient is sleeping most of the time. Current medications reviewed. Objective - Vital Signs Vital signs: Vital Signs Temp 98.6 F 01/25/20 15:00 Pulse 65 01/25/20 16:00 Resp 17 01/25/20 16:00 BP 97/60 01/25/20 15:00 Pulse Ox 97 01/25/20 15:00 Intake & Output 01/25/20 01/25/20 01/26/20 06:59 18:59 06:59 Other: Voiding Method Toilet Toilet # Voids 3 2 # Bowel Movements 1 1 - Exam PHYSICAL EXAMINATION: Patient is lying in the bed comfortably, no acute distress, awake alert and oriented.drowsy and lethargic. HEENT: Normocephalic. Neck is supple. Pupils reactive. Nostrils clear. Oral cavity is moist. Left Ear exam reveal no drainage. Neck reveals no JVD, carotid bruits, or thyromegaly. CHEST EXAMINATION: Trachea is central. Symmetrical expansion. Lung llamas clear to auscultation and percussion. CARDIAC: Normal S1, S2 with no gallops. No murmurs ABDOMEN: Soft. Bowel sounds normal. No organomegaly. No abdominal bruits. Extremities: reveal no edema. No clubbing or cyanosis Neurologically awake, alert, oriented x3 with well-coordinated movements. No focal deficits noted Skin: No rash or skin lesions. Psychiatric: Coperative. Nonsuicidal Musculoskeletal: No joint swelling or deformity. Normal range of motion. - Labs CBC & Chem 7: 01/23/20 23:37 01/25/20 08:55 Labs: Abnormal Lab Results - Last 24 Hours (Table) 01/25/20 01/25/20 Range/Units 08:55 20:27 Glucose 176 H (74-99) mg/dL POC Glucose (mg/dL) 118 H (75-99) mg/dL Total Protein 6.1 L (6.3-8.2) g/dL Assessment and Plan Assessment: Acute alcohol withdrawal syndrome Severe alcohol abuse Hypomagnesemia History of alcoholic gastritis Stable GI bleed GERD Hypertension Obstructive sleep apnea not on CPAP History of alcohol withdrawal seizure disorder Anxiety/depression Daily heavy alcohol abuse Marijuana use DVT prophylaxis with heparin subcu Plan: Patient will be continued on IV hydration and replace magnesium and monitor electrolytes. Continue with alcohol withdrawal protocol. Continue with fall and seizure precautions. Continue with PPI and follow-up closely.
--- NOTE | 2020-01-27 01:28 | P.PN ---
Subjective Progress Note Date: 01/26/20 Principal diagnosis: Acute alcohol withdrawal syndrome Patient is a 44-year-old male with a known history of hypertension, severe alcohol abuse, currently everyday smoker and marijuana use, osteoarthritis, history of GI bleed, obstructive sleep apnea not on CPAP at home, history of alcohol withdrawal seizures and alcoholic hepatitis presents to ER with complaints of alcohol withdrawal symptoms. Patient states that he has been having severe shakiness along with nausea and vomiting. Patient does drink at least 1/5 of alcohol daily. Patient is also complaining of abdominal pain mainly in the epigastric region. Denied any hematemesis. Patient was so shaky that he felt like he was having seizure. Presents to ER for further evaluation. Laboratory data showed WBC 8.3, hemoglobin 14.7 and platelets 195 Sodium 136, potassium 4.3, BUN 13 and creatinine 0.68 Bilirubin total 1.4 magnesium 1.6 Urinalysis negative for infection. Serum alcohol level is less than 10 01/25/2020 Patient is currently lying in the bed still shaky and requiring [id number] Ativan. No complaints of chest pain or shortness of breath. No fever no chills. Tolerating oral diet. Patient is sleeping most of the time. 01/26/2020 Patient is more awake and oriented today. Still requiring IV Ativan. Tolerating oral diet. No nausea vomiting or abdominal pain or diarrhea. No fever no chills. Plan to be discharged in the next 24 to 48 hours. Current medications reviewed. Objective - Vital Signs Vital signs: Vital Signs Temp 98.7 F 01/26/20 19:43 Pulse 64 01/26/20 19:43 Resp 20 01/26/20 19:43 BP 152/84 01/26/20 19:43 Pulse Ox 97 01/26/20 19:43 Intake & Output 01/26/20 01/26/20 01/27/20 06:59 18:59 06:59 Intake Total 800 350 Balance 800 350 Intake: Intake, IV Titration 800 350 Amount Sodium Chloride 0.9% 1, 800 350 000 ml @ 100 mls/hr IV . Q10H [facility] Rx#:[id number] Other: Voiding Method Toilet Toilet Toilet # Voids 3 1 - Exam PHYSICAL EXAMINATION: Patient is lying in the bed comfortably, no acute distress, awake alert and oriented.drowsy and lethargic. HEENT: Normocephalic. Neck is supple. Pupils reactive. Nostrils clear. Oral cavity is moist. Left Ear exam reveal no drainage. Neck reveals no JVD, carotid bruits, or thyromegaly. CHEST EXAMINATION: Trachea is central. Symmetrical expansion. Lung llamas clear to auscultation and percussion. CARDIAC: Normal S1, S2 with no gallops. No murmurs ABDOMEN: Soft. Bowel sounds normal. No organomegaly. No abdominal bruits. Extremities: reveal no edema. No clubbing or cyanosis Neurologically awake, alert, oriented x3 with well-coordinated movements. No focal deficits noted Skin: No rash or skin lesions. Psychiatric: Coperative. Nonsuicidal Musculoskeletal: No joint swelling or deformity. Normal range of motion. - Labs CBC & Chem 7: 01/23/20 23:37 01/25/20 08:55 Assessment and Plan Assessment: Acute alcohol withdrawal syndrome Severe alcohol abuse Hypomagnesemia History of alcoholic gastritis Stable GI bleed GERD Hypertension Obstructive sleep apnea not on CPAP History of alcohol withdrawal seizure disorder Anxiety/depression Daily heavy alcohol abuse Marijuana use DVT prophylaxis with heparin subcu Plan: Patient will be continued on IV hydration and replace magnesium and monitor electrolytes. Continue with alcohol withdrawal protocol. Continue with fall and seizure precautions. Continue with PPI and follow-up closely. Time with Patient: Greater than 30
[2020-01-27] MEDS: ACETAMINOPHEN TAB 325 MG TAB PO PRN (06:28)
[2020-01-27] MEDS: cloNIDine HCL 0.1 MG TAB PO SCH (07:13)
[2020-01-27] MEDS: GABAPENTIN 300 MG CAP PO SCH (07:14)
[2020-01-27] MEDS: THIAMINE 100 MG TAB PO SCH ×2 (07:14→07:15)
[2020-01-27] MEDS: HEPARIN SODIUM,PORCINE 5,000 UNIT/ML 1 ML VIAL SQ SCH (07:14)
[2020-01-27] MEDS: MULTIVITAMINS, THERA 1 EACH TAB PO SCH (07:14)
[2020-01-27] MEDS: MELOXICAM 7.5 MG TAB PO SCH (07:14)
[2020-01-27] MEDS: FOLIC ACID 1 MG TAB PO SCH (07:14)
[2020-01-27] MEDS: LOSARTAN 50 MG TAB PO SCH (07:14)
[2020-01-27] MEDS: PROPRANOLOL 10 MG TAB PO SCH (07:15)
[2020-01-27] MEDS: NICOTINE 21MG/24HR PATCH TRANSDERM SCH (07:15)
[2020-01-27 08:03] VITALS: BP 146/91; RESP 18; TEMP 98.3
[2020-01-27 12:18] LABS: Basophils % (A) 0 %; Eosinophils # (A) 0.1 k/uL (0-0.7); Eosinophils % (A) 2 %; HCT 44.4 % (39.0-53.0); HGB 14.3 gm/dL (13.0-17.5); Lymphocytes # (A) 2.3 k/uL (1.0-4.8); Lymphocytes % (A) 31 %; MCH 29.9 pg (25.0-35.0); MCHC 32.2 g/dL (31.0-37.0); MCV 93.1 fL (80.0-100.0); Monocytes # (A) 0.4 k/uL (0-1.0); Monocytes % (A) 5 %; Neutrophils # (A) 4.5 k/uL (1.3-7.7); Neutrophils % (A) 60 %; Platelet Count 183 k/uL (150-450); RBC 4.77 m/uL (4.30-5.90); RDW 12.4 % (11.5-15.5); WBC 7.6 k/uL (3.8-10.6)
[2020-01-27 12:49] LABS: African American GFR (CKD) >90 (>60 ml/min/1.73 sqM); Anion Gap 8 mmol/L; Blood Urea Nitrogen 15 mg/dL (9-20); Calcium 9.2 mg/dL (8.4-10.2); Carbon Dioxide 24 mmol/L (22-30); Chloride 105 mmol/L (98-107); Glucose 91 mg/dL (74-99); Non-African American GFR(CKD) >90 (>60 ml/min/1.73 sqM); Sodium 137 mmol/L (137-145)
--- NOTE | 2020-01-30 08:36 | P.DS ---
Providers Date of admission: 01/24/20 01:00 Expected date of discharge: 01/27/20 Attending physician: Aida Arias Primary care physician: Veena Tabor Hospital Course: Final diagnosis Acute alcohol withdrawal syndrome Severe alcohol abuse Hypomagnesemia History of alcoholic gastritis Stable GI bleed GERD Hypertension Obstructive sleep apnea not on CPAP History of alcohol withdrawal seizure disorder Anxiety/depression Daily heavy alcohol abuse Marijuana use DVT prophylaxis Discharge disposition Patient is being discharged in a stable condition with guarded prognosis to home. Patient will follow-up with Dr. Tabor in the outpatient setting upon discharge. Total time taken is greater than 35 minutes. History of present illness This is a 44-year-old male who was recently admitted with alcohol withdrawal symptoms with some shakiness along with nausea and vomiting and was being closely monitored. Patient was maintained on CIWA protocol and monitor closely for alcohol withdrawal. Patient was also having some abdominal pain in the epigastric region with some nausea and vomiting. Patient was hydrated in nausea and vomiting subsided. Discussed with the patient at length about avoiding alcohol and seeking resources through primary care provider for alcohol rehab. Patient verbalized understanding. Today patient is not requiring any Ativan per the CIWA protocol and able to tolerate diet with no reports of nausea or vomiting noted. Patient is awake and alert and oriented 3 and will be discharged today. Patient requesting a note for work and one will be provided. Currently no reports of chest pain, shortness of breath, or palpitations. Patient is afebrile. No reports of nausea or vomiting and patient is tolerating diet. Patient will be discharged home today. On exam vital signs are stable. Temp is 98.3F, pulse is 63, respirations are 18, blood pressure is 146/91, oxygen saturation is 98% on room air. Cardio S1, S2 are muffled. Respiratory system shows diminished breath sounds at the bases with no wheezing or rhonchi noted. Abdomen is soft and nontender. Nervous system shows no focal deficits. Please refer to medication reconciliation sheet for a list of medications. Patient Condition at Discharge: Fair Plan - Discharge Summary Discharge Rx Participant: No New Discharge Prescriptions: Continue Pantoprazole Sodium 40 mg PO DAILY Losartan Potassium 50 mg PO DAILY Gabapentin [Neurontin] 600 mg PO TID Albuterol Inhaler [Ventolin Hfa Inhaler] 1 - 2 puff INHALATION RT-QID PRN PRN Reason: Shortness Of Breath Fluticasone Nasal [place] [Flonase Nasal [place]] 2 spray EA NOSTRIL BID Celecoxib [CeleBREX] 200 mg PO DAILY PRN PRN Reason: Pain Multivitamins, Thera [Multivitamin (formulary)] 1 tab PO DAILY #30 tablet traZODone HCL [Desyrel] 100 mg PO HS ALPRAZolam [Xanax] 1 mg PO BID PRN PRN Reason: Anxiety Discharge Medication List Losartan Potassium 50 mg PO DAILY 01/03/19 [History] Pantoprazole Sodium 40 mg PO DAILY 01/03/19 [History] Gabapentin [Neurontin] 600 mg PO TID 03/04/19 [History] Albuterol Inhaler [Ventolin Hfa Inhaler] 1 - 2 puff INHALATION RT-QID PRN 10/11/19 [History] Celecoxib [CeleBREX] 200 mg PO DAILY PRN 10/11/19 [History] Fluticasone Nasal [place] [Flonase Nasal [place]] 2 spray EA NOSTRIL BID 10/11/19 [History] Multivitamins, Thera [Multivitamin (formulary)] 1 tab PO DAILY #30 tablet 10/14/19 [Rx] ALPRAZolam [Xanax] 1 mg PO BID PRN 01/24/20 [History] traZODone HCL [Desyrel] 100 mg PO HS 01/24/20 [History] Follow up Appointment(s)/Referral(s): Veena Tabor DO [Primary Care Provider] - 1-2 days Patient Instructions/Handouts: Alcohol Withdrawal (DC) Activity/Diet/Wound Care/Special Instructions: Activity Limited until follow-up Continue current diet Follow-up with primary care provider upon discharge Avoid alcohol intake Discharge Disposition: HOME SELF-CARE
== END 2020-01-27 14:48 | disposition home or self-care (01) | DRG 897 ==
LOC: EC 22:28 → 4SSUR 01-24 01:00
PROVIDERS: ADMIT Hospitalist; ATTEND Hospitalist
DX: F10.239 Alcohol dependence with withdrawal, unspecified (principal); E83.42 Hypomagnesemia; F17.210 Nicotine dependence, cigarettes, uncomplicated; F41.9 Anxiety disorder, unspecified; F32.9 Major depressive disorder, single episode, unspecified; G47.33 Obstructive sleep apnea (adult) (pediatric); Z90.49 Acquired absence of other specified parts of digestive tract; Z90.89 Acquired absence of other organs; I10 Essential (primary) hypertension; K21.9 Gastro-esophageal reflux disease without esophagitis; Z87.19 Personal history of other diseases of the digestive system; M19.90 Unspecified osteoarthritis, unspecified site; Z82.61 Family history of arthritis; Z82.49 Family history of ischemic heart disease and other diseases of the circulatory system; Z82.0 Family history of epilepsy and other diseases of the nervous system; Z80.8 Family history of malignant neoplasm of other organs or systems; Z79.899 Other long term (current) drug therapy; K70.10 Alcoholic hepatitis without ascites; K29.20 Alcoholic gastritis without bleeding; Z87.01 Personal history of pneumonia (recurrent); Z88.1 Allergy status to other antibiotic agents; Z88.8 Allergy status to other drugs, medicaments and biological substances
CPT/HCPCS: 36415; 80048; 80053; 80320; 81003; 83690; 83735; 85025; 96361; 96365; 96375; 96376; 99285

== ENCOUNTER 2020-03-27 11:56 | Inpatient (IN) | payer BC, OTHER ==
[2020-03-27] MEDS ORDERED: SODIUM CHLORIDE 0.9% 1,000 ML with MVI, ADULT NO.4 WITH VIT K 10 ML, THIAMINE 100 MG, F... IV ONE ×4 (12:22)
[2020-03-27] MEDS ORDERED: LORazepam 2 MG/ML INJ IV STA (12:37)
[2020-03-27] MEDS ORDERED: ONDANSETRON 4 MG/2 ML VIAL IVP STA (12:37)
[2020-03-27] MEDS ORDERED: HYDROmorphone 1 MG/ML 1 ML SYRINGE IVP STA (12:37)
--- NOTE | 2020-03-27 12:41 | ED ---
Alcohol HPI - General Chief Complaint: Alcohol Stated Complaint: Alcohol Withdrawl Time Seen by Provider: 03/27/20 12:20 Source: family, RN notes reviewed Mode of arrival: wheelchair - History of Present Illness Initial Comments: This is a 44-year-old male with a history of alcoholism history of DTs history of withdrawal seizures in the past who presents with complaints of 2 days of nausea vomiting inability keep food or fluids down very well also he believes is going through withdrawals. He last drank at 8 PM last night. He is having shakes she's had some visual problems. No seizure reported no diarrhea. He does have mid abdominal pain he states is 8/10 severity achy crampy sharp in nature. He states normally he functions at about 1 pint a day. Other complaints or modifying factors at this time MD Complaint: alcohol withdrawal - Related Data Home Medications Medication Instructions Recorded Confirmed Losartan Potassium 50 mg PO DAILY 01/03/19 03/27/20 Pantoprazole Sodium 40 mg PO DAILY 01/03/19 03/27/20 Gabapentin [Neurontin] 600 mg PO TID 03/04/19 03/27/20 Albuterol Inhaler [Ventolin Hfa 1 - 2 puff INHALATION RT-QID PRN 10/11/19 03/27/20 Inhaler] Celecoxib [CeleBREX] 200 mg PO DAILY PRN 10/11/19 03/27/20 Fluticasone Nasal [place] [Flonase 2 spray EA NOSTRIL BID 10/11/19 03/27/20 Nasal [place]] ALPRAZolam [Xanax] 1 mg PO BID PRN 01/24/20 03/27/20 Allergies Allergy/AdvReac Type Severity Reaction Status Date / Time Cephalosporins Allergy Severe Anaphylaxis Verified 03/27/20 13:43 diphenhydramine HCl Allergy Severe Anaphylaxis Verified 03/27/20 13:43 [From Benadryl] divalproex sodium Allergy Severe Anaphylaxis Verified 03/27/20 13:43 [From Depakote] ceftriaxone [From Rocephin] Allergy Anaphylaxis Verified 03/27/20 13:43 cephalexin [From Keflex] Allergy Anaphylaxis Verified 03/27/20 13:43 lisinopril Allergy Anaphylaxis Verified 03/27/20 13:43 Review of Systems ROS Statement: Those systems with pertinent positive or pertinent negative responses have been documented in the HPI. ROS Other: All systems not noted in ROS Statement are negative. Past Medical History Past Medical History: GERD/Reflux, GI Bleed, Hypertension, Osteoarthritis (OA), Pneumonia, Seizure Disorder, Sleep Apnea/CPAP/BIPAP Additional Past Medical History / Comment(s): Occasional bilateral pedal edema if stands long, arthritis possibly in back/ribs, MILIND without device, ETOH abuse, alcoholic seizures/blackouts/fainting, alcoholic hepatitis, alcoholic gastritis, upper GI bleed, hypomagnesemia, spinal stenosis/herniated disc with surgery, bilateral varicose veins, hemorrhoids History of Any Multi-Drug Resistant Organisms: None Reported Past Surgical History: Appendectomy, Back Surgery, Tonsillectomy Additional Past Surgical History / Comment(s): bilateral discectomy, discectomy L5-S1, EGD Past Anesthesia/Blood Transfusion Reactions: Motion Sickness Past Psychological History: Anxiety, Depression Smoking Status: Current every day smoker Past Alcohol Use History: Abuse, Daily, Heavy Past Drug Use History: Marijuana - Past Family History Father Family Medical History: Cancer, Dementia, Neurologic Disorder Additional Family Medical History / Comment(s): melanoma, parkinsons Mother Family Medical History: Hypertension, Musculoskeletal Disorder, Neurologic Disorder, Osteoarthritis (OA) Additional Family Medical History / Comment(s): Mother of motor neuron disease at the age of 78yrs. General Exam - General Exam Comments Initial Comments: This is a well-developed well-nourished awake alert oriented 3 male he does demonstrate evidence of shaking consistent with withdrawal. General appearance: alert, anxious, in distress Head exam: Present: atraumatic, normocephalic, normal inspection Eye exam: Present: normal appearance, PERRL, EOMI. Absent: scleral icterus, conjunctival injection, periorbital swelling ENT exam: Present: mucous membranes dry Neck exam: Present: normal inspection. Absent: tenderness, meningismus, lymphadenopathy Respiratory exam: Present: normal lung sounds bilaterally. Absent: respiratory distress, wheezes, rales, rhonchi, stridor Cardiovascular Exam: Present: regular rate, normal rhythm, normal heart sounds. Absent: systolic murmur, diastolic murmur, rubs, gallop, clicks GI/Abdominal exam: Present: soft, tenderness, normal bowel sounds. Absent: distended, guarding, rebound, rigid, bruit, pulsatile mass Extremities exam: Present: normal inspection, full ROM, normal capillary refill. Absent: tenderness, pedal edema, joint swelling, calf tenderness Back exam: Present: normal inspection Neurological exam: Present: alert, oriented X3, CN II-XII intact Psychiatric exam: Present: normal affect, anxious, other (Tremor noted) Skin exam: Present: warm, dry, intact, normal color. Absent: rash Course Vital Signs 03/27/20 03/27/20 12:18 12:54 Temperature 98.9 F Pulse Rate 87 73 Respiratory 18 18 Rate Blood Pressure 153/96 165/89 O2 Sat by Pulse 100 96 Oximetry - Reevaluation(s) Reevaluation #1: 03/27/20 13:48 Reevaluation patient reveals that he feels somewhat improved. Medical Decision Making - Medical Decision Making The patient will require admission due to alcohol withdrawal and impending DTs. I did discuss case with the patient as well as Dr. Arias. Patient will be admitted - Lab Data Result diagrams: 03/27/20 12:50 03/27/20 12:50 Lab Results 03/27/20 03/27/20 Range/Units 12:50 12:50 WBC 8.4 (3.8-10.6) k/uL RBC 5.30 (4.30-5.90) m/uL Hgb 16.0 (13.0-17.5) gm/dL Hct 49.6 (39.0-53.0) % MCV 93.5 (80.0-100.0) fL MCH 30.3 (25.0-35.0) pg MCHC 32.4 (31.0-37.0) g/dL RDW 12.8 (11.5-15.5) % Plt Count 243 (150-450) k/uL Neutrophils % 67 % Lymphocytes % 26 % Monocytes % 4 % Eosinophils % 1 % Basophils % 1 % Neutrophils # 5.6 (1.3-7.7) k/uL Lymphocytes # 2.2 (1.0-4.8) k/uL Monocytes # 0.4 (0-1.0) k/uL Eosinophils # 0.1 (0-0.7) k/uL Basophils # 0.1 (0-0.2) k/uL Sodium 140 (137-145) mmol/L Potassium 4.4 (3.5-5.1) mmol/L Chloride 102 (98-107) mmol/L Carbon Dioxide 27 (22-30) mmol/L Anion Gap 11 mmol/L BUN 13 (9-20) mg/dL Creatinine 0.71 (0.66-1.25) mg/dL Est GFR (CKD-EPI)AfAm >90 (>60 ml/min/1.73 sqM) Est GFR (CKD-EPI)NonAf >90 (>60 ml/min/1.73 sqM) Glucose 97 (74-99) mg/dL Calcium 9.6 (8.4-10.2) mg/dL Magnesium 1.4 L (1.6-2.3) mg/dL Total Bilirubin 1.2 (0.2-1.3) mg/dL AST 46 (17-59) U/L ALT 17 (4-49) U/L Alkaline Phosphatase 67 (38-126) U/L Creatine Kinase 92 (55-170) U/L Total Protein 7.7 (6.3-8.2) g/dL Albumin 4.9 (3.5-5.0) g/dL Lipase 54 (23-300) U/L Serum Alcohol <10 mg/dL Disposition Clinical Impression: Alcohol withdrawal delirium, acute, hyperactive, Alcohol abuse, Tobacco abuse Disposition: ADMITTED IP TO THIS HOSP Condition: Fair Referrals: Veena Bynum DO [Primary Care Provider] - 1-2 days
[2020-03-27 13:15] LABS: Basophils # (A) 0.1 k/uL (0-0.2); Basophils % (A) 1 %; Eosinophils # (A) 0.1 k/uL (0-0.7); Eosinophils % (A) 1 %; HCT 49.6 % (39.0-53.0); Lymphocytes # (A) 2.2 k/uL (1.0-4.8); Lymphocytes % (A) 26 %; MCH 30.3 pg (25.0-35.0); MCHC 32.4 g/dL (31.0-37.0); MCV 93.5 fL (80.0-100.0); Mean Platelet Volume 7.6; Monocytes # (A) 0.4 k/uL (0-1.0); Monocytes % (A) 4 %; Neutrophils # (A) 5.6 k/uL (1.3-7.7); Neutrophils % (A) 67 %; Platelet Count 243 k/uL (150-450); RDW 12.8 % (11.5-15.5); WBC 8.4 k/uL (3.8-10.6)
[2020-03-27 13:23] LABS: ALT 17 U/L (4-49); AST 46 U/L (17-59); African American GFR (CKD) >90 (>60 ml/min/1.73 sqM); Albumin 4.9 g/dL (3.5-5.0); Alcohol <10 mg/dL; Alkaline Phosphatase 67 U/L (38-126); Anion Gap 11 mmol/L; Blood Urea Nitrogen 13 mg/dL (9-20); Calcium 9.6 mg/dL (8.4-10.2); Carbon Dioxide 27 mmol/L (22-30); Chloride 102 mmol/L (98-107); Creatine Kinase 92 U/L (55-170); Glucose 97 mg/dL (74-99); Lipase 54 U/L (23-300); Magnesium 1.4 mg/dL (1.6-2.3); Non-African American GFR(CKD) >90 (>60 ml/min/1.73 sqM); Potassium 4.4 mmol/L (3.5-5.1); Sodium 140 mmol/L (137-145); Total Bilirubin 1.2 mg/dL (0.2-1.3); Total Protein 7.7 g/dL (6.3-8.2)
[2020-03-27] MEDS ORDERED: NALOXONE 0.4 MG/ML 1 ML VIAL IV PRN (13:51)
[2020-03-27] MEDS ORDERED: ONDANSETRON 4 MG/2 ML VIAL IVP PRN (13:51)
[2020-03-27] MEDS ORDERED: ALBUTEROL NEBULIZED 2.5 MG/3 ML INHALATION PRN (13:55)
[2020-03-27] MEDS ORDERED: MELOXICAM 7.5 MG TAB PO PRN (13:55)
[2020-03-27] MEDS ORDERED: THIAMINE 100 MG/ML 2 ML VIAL IM STA (13:56)
[2020-03-27] MEDS ORDERED: LORazepam 2 MG/ML INJ IV PRN (13:56)
[2020-03-27 14:04] LABS: INR 0.9 (<1.2); Prothrombin Time 9.7 sec (9.0-12.0)
[2020-03-27] MEDS: LORazepam 2 MG/ML INJ IV PRN ×3 (15:12→21:48)
[2020-03-27] MEDS: SODIUM CHLORIDE 0.9% 1,000 ML IV SCH (16:17)
[2020-03-27] MEDS: HYDROmorphone 1 MG/ML 1 ML SYRINGE IVP PRN ×2 (16:36→20:26)
[2020-03-27] MEDS: GABAPENTIN 300 MG CAP PO SCH ×2 (16:36→21:37)
[2020-03-27] MEDS ORDERED: Potassium Replacement Protocol 1 EACH MISC MISCELLANE PRN (18:40)
[2020-03-27] MEDS ORDERED: Magnesium Replacement Protocol 1 EACH MISC MISCELLANE PRN (18:40)
[2020-03-27] MEDS ORDERED: cloNIDine HCL 0.1 MG TAB PO PRN (18:53)
--- NOTE | 2020-03-27 19:48 | HP ---
HISTORY AND PHYSICAL DATE OF SERVICE: 03/27/2020 CHIEF COMPLAINT: Alcohol withdrawal. HISTORY OF PRESENT ILLNESS: This 44-year-old gentleman with a past medical history significant for alcoholism with multiple hospital admissions, GERD, GI bleed, DJD, history of pneumonia, seizure disorder, being followed by Dr. Bynum in the outpatient setting, was admitted with alcohol withdrawal symptoms. Apparently the patient had history of DTs in the past. The patient had 2 days of nausea, vomiting, unable to keep any food down. The patient's last drink was about 8 p.m. last night. The patient apparently stopped drinking for 2 weeks but then restarted because his father recently got enrolled in hospice and because of associated stress. The patient is also complaining of some mild abdominal pain. There is no history of any fever, rigor or chills. No history of headache, loss of consciousness, seizures. In the ER the CBC was within normal limits. Magnesium was 1.4. Alcohol was less than 10. PAST MEDICAL HISTORY: History of GERD, GI bleed, hypertension, DJD, history of pneumonia, seizure disorder, sleep apnea. HOME MEDICATIONS: 1. Protonix 40 mg p.o. daily. 2. Losartan 50 mg p.o. daily. 3. Neurontin 600 mg p.o. t.i.d. 4. Flonase 2 sprays b.i.d. 5. Celebrex 200 mg daily p.r.n. 6. Ventolin 1 to 2 puffs q.i.d. p.r.n. 7. Xanax 1 mg b.i.d. p.r.n. ALLERGIES: CEPHALOSPORINS, BENADRYL, DEPAKOTE, ROCEPHIN, KEFLEX, LISINOPRIL. FAMILY HISTORY: History of dementia, history of neurological disorder, melanoma, Parkinson's. SOCIAL HISTORY: Previous history of smoking. Occasional alcohol intake. REVIEW OF SYSTEMS: ENT: No diminished hearing. No diminished vision. CARDIOVASCULAR SYSTEM: No angina, palpitations. RESPIRATORY SYSTEM: No cough, hemoptysis. GI: As mentioned earlier. : No dysuria or retention. NERVOUS SYSTEM: As mentioned earlier. ALLERGY/IMMUNOLOGY: No asthma, hayfever. MUSCULOSKELETAL: As mentioned earlier. HEMATOLOGY/ONCOLOGY: No history of anemia. ENDOCRINE: No history of diabetes, hypothyroidism. CONSTITUTIONAL: As mentioned earlier. DERMATOLOGY: Negative. RHEUMATOLOGY: Negative. PSYCHIATRY: As mentioned earlier. PHYSICAL EXAMINATION: Patient alert and oriented x3. Pulse 71, blood pressure 140/98, respiration 18, temperature 98.2, pulse ox 97% on room air. HEENT: Conjunctivae normal. Oral mucosa moist. NECK: No jugular venous distention. No carotid bruit. No lymph node enlargement. CARDIOVASCULAR SYSTEM: S1, S2 muffled. No S3. No S4. RESPIRATORY SYSTEM: Breath sounds diminished at the bases. No rhonchi. No crackles. ABDOMEN: Soft, non-tender. No mass palpable. LEGS: No edema. No swelling. NERVOUS SYSTEM: Diffusely weak and diffuse tremors also present. SKIN: No ulcer, rash, bleeding. JOINTS: No active deforming arthropathy. LABS: CBC within normal limits. Magnesium 1.4. ASSESSMENT: 1. Acute alcohol withdrawal and acute early delirium tremens. 2. Hypomagnesemia. 3. Change in mental status, metabolic encephalopathy. 4. History of ETOH. 5. History of gastroesophageal reflux disease. 6. History of gastrointestinal bleed. 7. Hypertension. 8. History of degenerative joint disease. 9. History of pneumonia. 10.History of seizure disorder. 11.History of sleep apnea. 12.History of bilateral leg edema. 13.History of alcoholic seizures. 14.History of alcoholic hepatitis. 15.History of hypomagnesemia. 16.History of spinal stenosis. 17.History of appendectomy. 18.History of back surgery. 19.Anxiety, depression. 20.History of continued ongoing nicotine dependence. 21.FULL CODE. 22.Obesity with body mass index of 36.9. RECOMMENDATIONS AND DISCUSSION: In this 44-year-old gentleman who presented with multiple complex medical issues, we will monitor the patient closely. CIWA protocol. DT precautions. Alcohol precautions. Resume the home medications. Recommend outpatient EtOH rehab, AA meetings. The prognosis is guarded because of multiple complex medical issues. DVT prophylaxis. See orders for further details. Discussed with the patient, who understands and agrees. Further recommendations to follow. A copy of this dictation is being forwarded to Dr. Bynum, who is the primary physician. MMODL / MOISESN: [id number] /
[2020-03-27] MEDS: cloNIDine HCL 0.1 MG TAB PO SCH ×2 (21:37→23:22)
[2020-03-27] MEDS: FLUTICASONE 50MCG/SPRAY NASAL 16GM EA NOSTRIL SCH (21:37)
[2020-03-27] MEDS: HEPARIN SODIUM,PORCINE 5,000 UNIT/ML 1 ML VIAL SQ SCH (21:37)
[2020-03-28] MEDS: LORazepam 2 MG/ML INJ IV PRN ×9 (00:31→21:48)
[2020-03-28] MEDS: HYDROmorphone 1 MG/ML 1 ML SYRINGE IVP PRN ×2 (01:10→04:42)
[2020-03-28 06:14] LABS: Basophils % (A) 1 %; Eosinophils # (A) 0.1 k/uL (0-0.7); Eosinophils % (A) 2 %; HGB 14.3 gm/dL (13.0-17.5); Lymphocytes # (A) 2.5 k/uL (1.0-4.8); Lymphocytes % (A) 34 %; MCH 31.1 pg (25.0-35.0); MCHC 32.5 g/dL (31.0-37.0); MCV 95.6 fL (80.0-100.0); Mean Platelet Volume 7.7; Monocytes # (A) 0.4 k/uL (0-1.0); Monocytes % (A) 6 %; Neutrophils % (A) 56 %; Platelet Count 186 k/uL (150-450); RBC 4.61 m/uL (4.30-5.90); RDW 12.6 % (11.5-15.5); WBC 7.2 k/uL (3.8-10.6)
[2020-03-28] MEDS: GABAPENTIN 300 MG CAP PO SCH ×3 (07:58→21:39)
[2020-03-28] MEDS: cloNIDine HCL 0.1 MG TAB PO SCH ×3 (07:58→19:56)
[2020-03-28] MEDS: NICOTINE 21MG/24HR PATCH TRANSDERM SCH (07:59)
[2020-03-28] MEDS: LOSARTAN 50 MG TAB PO SCH (07:59)
[2020-03-28] MEDS: FLUTICASONE 50MCG/SPRAY NASAL 16GM EA NOSTRIL SCH ×2 (07:59→21:39)
[2020-03-28] MEDS: PANTOPRAZOLE 40 MG TABLET PO SCH (07:59)
[2020-03-28] MEDS: THIAMINE 100 MG TAB PO SCH ×2 (07:59→16:29)
[2020-03-28] MEDS: HEPARIN SODIUM,PORCINE 5,000 UNIT/ML 1 ML VIAL SQ SCH ×2 (07:59→21:39)
[2020-03-28] MEDS ORDERED: NICOTINE 14MG/24HR PATCH TRANSDERM SCH (09:00)
[2020-03-28 09:41] LABS: African American GFR (CKD) 124.2 (60.0-200.0); Anion Gap 6.1 mmol/L (4.00-12.00); BUN/Creat Ratio 21.25 Ratio (12.00-20.00); Calcium 8.5 mg/dL (8.7-10.3); Carbon Dioxide 27.9 mmol/L (21.6-31.8); Magnesium 1.4 mg/dL (1.5-2.4); Non-African American GFR(CKD) 107.1 (60.0-200.0); Potassium 4.8 mmol/L (3.5-5.5)
[2020-03-28] MEDS: MAGNESIUM SULFATE-D5W PMX 1 GM in DEXTROSE/WATER 1 100ML.BAG IVPB SCH ×3 (10:43→13:10)
[2020-03-28] MEDS: HYDROcodone/APAP 5-325MG 1 EACH TAB PO PRN ×3 (10:49→21:39)
--- NOTE | 2020-03-28 15:09 | XR ---
EXAMINATION TYPE: XR chest 1V portable DATE OF EXAM: 03/28/2020 COMPARISON: 12/31/2019 HISTORY: Shortness of breath TECHNIQUE: Single frontal view of the chest is obtained. FINDINGS: No overt failure. No pleural effusion or pneumothorax. Heart size stable. No consolidative pneumonia. Arthropathy of the shoulders. Hypertrophic and degenerative change of the spine. Mild pro minence of the right paratracheal region. IMPRESSION: No acute process . Mild prominence the right paratracheal region could be positional rec ommend short-term follow-up PA and lateral views the chest.
[2020-03-28] MEDS: SODIUM CHLORIDE 0.9% 1,000 ML IV SCH (18:57)
--- NOTE | 2020-03-28 20:50 | PN ---
PROGRESS NOTE DATE OF SERVICE: 03/28/2020 This 44-year-old gentleman who was admitted with alcohol withdrawal is being closely monitored. Patient is on CIWA protocol. No chest pain. No palpitations. No fever. The chest x-ray, which was reviewed personally by me, showed no acute process. PHYSICAL EXAMINATION: Alert and oriented x3. Pulse 73, blood pressure 94/53, respiration 17, temperature 98.2, pulse ox 94% on room air. HEENT: Conjunctivae normal. NECK: No jugular venous distention. CARDIOVASCULAR SYSTEM: S1, S2 muffled. RESPIRATORY SYSTEM: Breath sounds diminished at the bases. No rhonchi. No crackles. ABDOMEN: Soft. LEGS: No edema. No swelling. NERVOUS SYSTEM: Diffuse tremors. LABS: Magnesium 1.4. Other labs are noted. ASSESSMENT: 1. Acute alcohol withdrawal and acute delirium tremens. 2. Change in mental status, metabolic encephalopathy, multifactorial. 3. Hypomagnesemia. 4. History of ETOH. 5. History of gastroesophageal reflux disease. 6. History of gastrointestinal bleed. 7. Hypertension. 8. History of degenerative joint disease. 9. History of pneumonia. 10.History of seizure disorder. 11.History of sleep apnea. 12.History of bilateral leg edema. 13.History of alcoholic seizures. 14.History of alcoholic hepatitis. 15.History of hypomagnesemia. 16.History of spinal stenosis. 17.History of appendectomy. 18.History of back surgery. 19.History of anxiety, depression. 20.History of continued ongoing nicotine dependence. 21.Obesity with body mass index of 36.9. 22.FULL CODE. RECOMMENDATIONS AND DISCUSSION: I recommend to continue current medications, continue with the monitoring, symptomatic treatment. Otherwise at this time replace magnesium. Repeat magnesium. Closely monitor. Continue with CIWA protocol. Prognosis guarded. Further recommendations to follow. MMODL / IJN: [id number] /
[2020-03-28 22:10] LABS: Appearance,Urine Clear (Clear); Bilirubin,Urine Negative (Negative); Blood,Urine Negative (Negative); Color,Urine Yellow; Glucose,Urine (UA) Negative (Negative); Ketones,Urine Negative (Negative); Leukocyte Esterase,Urine Negative (Negative); Nitrite,Urine Negative (Negative); Protein,Urine Negative (Negative); Specific Gravity,Urine 1.017 (1.001-1.035); Urobilinogen,Urine <2.0 mg/dL (<2.0)
[2020-03-29] MEDS: LORazepam 2 MG/ML INJ IV PRN ×4 (01:35→09:43)
[2020-03-29] MEDS: HYDROcodone/APAP 5-325MG 1 EACH TAB PO PRN ×2 (04:18→09:43)
[2020-03-29 07:13] LABS: Basophils % (A) 0 %; Eosinophils # (A) 0.1 k/uL (0-0.7); Eosinophils % (A) 2 %; HCT 45.6 % (39.0-53.0); HGB 14.3 gm/dL (13.0-17.5); Lymphocytes # (A) 1.9 k/uL (1.0-4.8); Lymphocytes % (A) 30 %; MCH 30.2 pg (25.0-35.0); MCHC 31.4 g/dL (31.0-37.0); MCV 96.2 fL (80.0-100.0); Mean Platelet Volume 7.9; Monocytes # (A) 0.3 k/uL (0-1.0); Monocytes % (A) 4 %; Neutrophils # (A) 3.9 k/uL (1.3-7.7); Neutrophils % (A) 62 %; Platelet Count 200 k/uL (150-450); RBC 4.74 m/uL (4.30-5.90); RDW 12.9 % (11.5-15.5); WBC 6.2 k/uL (3.8-10.6)
[2020-03-29] MEDS: THIAMINE 100 MG TAB PO SCH (07:35)
[2020-03-29] MEDS: PANTOPRAZOLE 40 MG TABLET PO SCH (07:36)
[2020-03-29] MEDS: HEPARIN SODIUM,PORCINE 5,000 UNIT/ML 1 ML VIAL SQ SCH (07:36)
[2020-03-29] MEDS: NICOTINE 21MG/24HR PATCH TRANSDERM SCH (07:36)
[2020-03-29] MEDS: GABAPENTIN 300 MG CAP PO SCH (07:40)
[2020-03-29] MEDS: LOSARTAN 50 MG TAB PO SCH (07:40)
[2020-03-29] MEDS: FLUTICASONE 50MCG/SPRAY NASAL 16GM EA NOSTRIL SCH (07:41)
[2020-03-29] MEDS: cloNIDine HCL 0.1 MG TAB PO SCH (08:27)
[2020-03-29 11:16] LABS: African American GFR (CKD) 139.7 (60.0-200.0); Anion Gap 8.1 mmol/L (4.00-12.00); BUN/Creat Ratio 23.33 Ratio (12.00-20.00); Calcium 8.6 mg/dL (8.7-10.3); Carbon Dioxide 26.9 mmol/L (21.6-31.8); Non-African American GFR(CKD) 120.6 (60.0-200.0); Potassium 4.8 mmol/L (3.5-5.5)
[2020-03-29 12:18] VITALS: BP 153/86; RESP 14; TEMP 98.5
[2020-03-29 13:29] VITALS: PULSE 75
--- NOTE | 2020-03-30 05:33 | DS ---
DISCHARGE SUMMARY DATE OF SERVICE: 03/29/2020 FINAL DIAGNOSES: 1. Acute alcohol withdrawal and acute delirium tremens. 2. Change in mental status acute metabolic encephalopathy multifactorial. 3. Hypomagnesemia. 4. History of EtOH. 5. History of gastroesophageal reflux disease. 6. History of gastrointestinal bleed. 7. History of hypertension. 8. History of degenerative joint disease. 9. History of pneumonia. 10.History of seizure disorder. 11.History of sleep apnea. 12.History of bilateral leg edema. 13.Alcoholic seizures. 14.Alcoholic hepatitis. 15.History of hypomagnesemia. 16.History of spinal stenosis. 17.History of appendectomy. 18.History of back surgery. 19.Anxiety, depression. 20.History of continued ongoing nicotine dependence. 21.Obesity with body mass index of 36.9. 22.FULL CODE. DISCHARGE DISPOSITION: The patient will be discharged in stable condition with guarded prognosis. HISTORY OF PRESENT ILLNESS: This 44-year-old gentleman with a past medical history of multiple medical problems being followed by Dr. Bynum in the outpatient setting admitted with significant alcohol withdrawal and DTs, treated symptomatically with CIWA protocol. Patient improved significantly. On exam, vitals are stable. CARDIOVASCULAR: S1, S2 muffled. ABDOMEN: Soft. NERVOUS SYSTEM: No focal deficits. The labs are stable and the patient will be discharged in stable condition with guarded prognosis. DISCHARGE ADVICE AND MEDICATIONS: 1. Diet is cardiac. 2. Activity limited until followup. 3. Follow up with Dr. Bynum 2-3 days. 4. Follow up with alcohol rehab or AA meetings. 5. No EtOH. Medications are: 1. Celebrex 200 mg daily. 2. Flonase nasal spray. 3. Losartan 50 mg daily. 4. Neurontin 600 mg p.o. t.i.d. 5. Protonix 40 mg daily. 6. Ventolin 1 to 2 puffs q.6 p.r.n. 7. Xanax 1 mg b.i.d. p.r.n. 8. Ativan 1 mg t.i.d. p.r.n. 9. Catapres 0.1 mg t.i.d. 10.Folic acid 1 mg daily. 11.Multivitamin one p.o. daily. 12.Thiamine 100 mg p.o. daily. Once again, the patient will be discharged in stable condition with guarded prognosis. MMGO / ASHOK: [id number] /
== END 2020-03-29 13:42 | disposition home or self-care (01) | DRG 896 ==
LOC: EC 11:56 → 4SSUR 13:51
PROVIDERS: ADMIT Hospitalist; ATTEND Hospitalist
DX: F10.231 Alcohol dependence with withdrawal delirium (principal); G93.41 Metabolic encephalopathy; E66.9 Obesity, unspecified; E83.42 Hypomagnesemia; F17.210 Nicotine dependence, cigarettes, uncomplicated; F32.9 Major depressive disorder, single episode, unspecified; F41.9 Anxiety disorder, unspecified; G40.909 Epilepsy, unspecified, not intractable, without status epilepticus; I10 Essential (primary) hypertension; K21.9 Gastro-esophageal reflux disease without esophagitis; K70.10 Alcoholic hepatitis without ascites; Z87.19 Personal history of other diseases of the digestive system; M19.90 Unspecified osteoarthritis, unspecified site; Z68.36 Body mass index [BMI] 36.0-36.9, adult; Z79.1 Long term (current) use of non-steroidal anti-inflammatories (NSAID); Z79.899 Other long term (current) drug therapy; Z80.8 Family history of malignant neoplasm of other organs or systems; Z82.0 Family history of epilepsy and other diseases of the nervous system; Z82.49 Family history of ischemic heart disease and other diseases of the circulatory system; Z82.61 Family history of arthritis; Z87.01 Personal history of pneumonia (recurrent); Z90.49 Acquired absence of other specified parts of digestive tract; Z88.1 Allergy status to other antibiotic agents; Z88.8 Allergy status to other drugs, medicaments and biological substances
CPT/HCPCS: 36415; 71045; 80048; 80053; 80320; 81003; 82550; 83690; 83735; 85025; 85610; 96365; 96366; 96372; 96375; 96376; 99285

== ENCOUNTER 2020-05-14 21:06 | Inpatient (IN) | payer BC, OTHER ==
[2020-05-14] MEDS ORDERED: LORazepam 2 MG/ML INJ IV STA (22:23)
[2020-05-14] MEDS ORDERED: LORazepam 2 MG/ML INJ IV PRN (22:23)
[2020-05-14] MEDS ORDERED: THIAMINE 100 MG/ML 2 ML VIAL IM STA (22:23)
[2020-05-14] MEDS: THIAMINE 100 MG TAB PO SCH (22:32)
[2020-05-14 22:36] LABS: Appearance,Urine Clear (Clear); Bilirubin,Urine Negative (Negative); Blood,Urine Negative (Negative); Color,Urine Yellow; Glucose,Urine (UA) Negative (Negative); Ketones,Urine Negative (Negative); Leukocyte Esterase,Urine Small (Negative); Nitrite,Urine Negative (Negative); PH, Urine 7.5 (5.0-8.0); Protein,Urine Negative (Negative); RBC,Urine <1 /hpf (0-5); Specific Gravity,Urine 1.015 (1.001-1.035); Urobilinogen,Urine <2.0 mg/dL (<2.0); WBC,Urine 2 /hpf (0-5)
[2020-05-14 22:36] LABS: Basophils # (A) 0.1 k/uL (0-0.2); Basophils % (A) 1 %; Eosinophils % (A) 0 %; HCT 47.4 % (39.0-53.0); HGB 15.6 gm/dL (13.0-17.5); Lymphocytes # (A) 1.6 k/uL (1.0-4.8); Lymphocytes % (A) 19 %; MCH 29.6 pg (25.0-35.0); MCHC 32.9 g/dL (31.0-37.0); Mean Platelet Volume 7.2; Monocytes # (A) 0.4 k/uL (0-1.0); Monocytes % (A) 5 %; Neutrophils # (A) 6.1 k/uL (1.3-7.7); Neutrophils % (A) 73 %; Platelet Count 227 k/uL (150-450); RBC 5.26 m/uL (4.30-5.90); RDW 12.7 % (11.5-15.5); WBC 8.3 k/uL (3.8-10.6)
[2020-05-14 22:44] LABS: ALT 16 U/L (4-49); AST 48 U/L (17-59); African American GFR (CKD) >90 (>60 ml/min/1.73 sqM); Albumin 4.9 g/dL (3.5-5.0); Alcohol <10 mg/dL; Alkaline Phosphatase 63 U/L (38-126); Anion Gap 8 mmol/L; Blood Urea Nitrogen 18 mg/dL (9-20); Calcium 9.6 mg/dL (8.4-10.2); Carbon Dioxide 30 mmol/L (22-30); Chloride 98 mmol/L (98-107); Glucose 114 mg/dL (74-99); Magnesium 1.2 mg/dL (1.6-2.3); Non-African American GFR(CKD) >90 (>60 ml/min/1.73 sqM); Phosphorus 3.2 mg/dL (2.5-4.5); Potassium 4.7 mmol/L (3.5-5.1); Sodium 136 mmol/L (137-145); Total Bilirubin 1.5 mg/dL (0.2-1.3); Total Protein 7.8 g/dL (6.3-8.2)
[2020-05-14 22:47] LABS: MCV 90.1 fL (80.0-100.0)
[2020-05-14 22:49] LABS: Amphetamine Screen,Urine Not Detected (NotDetected); Barbiturate Screen,Urine Not Detected (NotDetected); Benzodiazepines Screen,Urine Detected (NotDetected); Cocaine Screen,Urine Not Detected (NotDetected); Methadone Screen, Urine Not Detected (NotDetected); Opiate Screen,Urine Not Detected (NotDetected); Oxycodone Screen, Urine Not Detected (NotDetected); Phencyclidine Screen,Urine Not Detected (NotDetected); Tricyclic Antidepressant,Urine Not Detected (NotDetected); Urn Cannabinoid Scrn Not Detected (NotDetected)
[2020-05-14] MEDS ORDERED: MAGNESIUM OXIDE 400 MG TAB PO STA (22:52)
[2020-05-14] MEDS ORDERED: ONDANSETRON 4 MG/2 ML VIAL IVP STA (22:54)
[2020-05-14] MEDS ORDERED: NALOXONE 0.4 MG/ML 1 ML VIAL IV PRN (22:59)
--- NOTE | 2020-05-14 23:00 | ED ---
General Adult HPI - General Source: patient, RN notes reviewed, old records reviewed Mode of arrival: ambulatory Limitations: no limitations <Feng Smith - Last Filed: 05/15/20 00:11> <María Elena Troy - Last Filed: 05/16/20 10:05> - General Chief complaint: Alcohol Stated complaint: Alcohol Withdrawal Time Seen by Provider: 05/14/20 21:51 - History of Present Illness Initial comments: 44-year-old male patient to ED for alcohol withdrawal. Patient reports that he is a heavy drinker drinks over a fifth a day. Reports that he attempting to stop drinking. States that last drink over 24 hours ago. Feels very tremulous. Reports the number of years. He did have a culture all seizure. Denies any other acute complaints. Systemic: Pt denies fatigue, fever/chills, rash. Pt denies weakness, night sweats, weight loss. Neuro: Pt denies headache, visual disturbances, syncope or pre-syncope. HEENT: Pt denies ocular discharge or irritation, otalgia, rhinorrhea, pharyngitis or notable lymphadenopathy. Cardiopulmonary: Pt denies chest pain, SOB, heart palpitations, dyspnea on exertion. Abdominal/GI: Pt denies abdominal pain, n/v/d. : Pt denies dysuria, burning w/ urination, frequency/urgency. Denies new onset urinary or bowel incontinence. MSK: Pt denies myalgia, loss of strength or function in extremities. Neuro: Pt denies new onset weakness, paresthesias. (Feng Smith) - Related Data Home Medications Medication Instructions Recorded Confirmed Losartan Potassium 50 mg PO DAILY 01/03/19 05/14/20 Pantoprazole Sodium 40 mg PO DAILY 01/03/19 05/14/20 Gabapentin [Neurontin] 600 mg PO TID 03/04/19 05/14/20 Albuterol Inhaler [Ventolin Hfa 1 - 2 puff INHALATION RT-QID PRN 10/11/19 05/14/20 Inhaler] Celecoxib [CeleBREX] 200 mg PO DAILY PRN 10/11/19 05/14/20 Fluticasone Nasal [place] [Flonase 2 spray EA NOSTRIL BID 10/11/19 05/14/20 Nasal [place]] ALPRAZolam [Xanax] 1 mg PO BID PRN 01/24/20 05/14/20 Varenicline [Chantix Starter Pack] 0.5 mg PO BID 05/14/20 05/14/20 traZODone HCL [Desyrel] 100 mg PO HS 05/14/20 05/14/20 Previous Rx's Medication Instructions Recorded Folic Acid 1 mg PO DAILY #30 tablet 03/29/20 Multivitamins, Thera [Multivitamin] 1 tab PO DAILY #30 tablet 03/29/20 Thiamine [Vitamin B-1] 100 mg PO DAILY #30 tablet 03/29/20 cloNIDine HCL [Catapres] 0.1 mg PO TID #90 tab 03/29/20 Allergies Allergy/AdvReac Type Severity Reaction Status Date / Time Cephalosporins Allergy Severe Anaphylaxis Verified 05/14/20 22:27 diphenhydramine HCl Allergy Severe Anaphylaxis Verified 05/14/20 22:27 [From Benadryl] divalproex sodium Allergy Severe Anaphylaxis Verified 05/14/20 22:27 [From Depakote] ceftriaxone [From Rocephin] Allergy Anaphylaxis Verified 05/14/20 22:27 cephalexin [From Keflex] Allergy Anaphylaxis Verified 05/14/20 22:27 lisinopril Allergy Anaphylaxis Verified 05/14/20 22:27 Review of Systems ROS Other: All systems not noted in ROS Statement are negative. <Feng Smith - Last Filed: 05/15/20 00:11> ROS Other: All systems not noted in ROS Statement are negative. <María Elena Troy - Last Filed: 05/16/20 10:05> ROS Statement: Those systems with pertinent positive or pertinent negative responses have been documented in the HPI. Past Medical History Past Medical History: GERD/Reflux, GI Bleed, Hypertension, Osteoarthritis (OA), Pneumonia, Seizure Disorder, Sleep Apnea/CPAP/BIPAP Additional Past Medical History / Comment(s): Occasional bilateral pedal edema if stands long, arthritis possibly in back/ribs, MILIND without device, ETOH abuse, alcoholic seizures/blackouts/fainting, alcoholic hepatitis, alcoholic gastritis, upper GI bleed, hypomagnesemia, spinal stenosis/herniated disc with surgery, bilateral varicose veins, hemorrhoids History of Any Multi-Drug Resistant Organisms: None Reported Past Surgical History: Appendectomy, Back Surgery, Tonsillectomy Additional Past Surgical History / Comment(s): bilateral discectomy, discectomy L5-S1, EGD Past Anesthesia/Blood Transfusion Reactions: Motion Sickness Past Psychological History: Anxiety, Depression Smoking Status: Current every day smoker Past Alcohol Use History: Abuse, Daily, Heavy Past Drug Use History: Marijuana - Past Family History Father Family Medical History: Cancer, Dementia, Neurologic Disorder Additional Family Medical History / Comment(s): melanoma, parkinsons Mother Family Medical History: Hypertension, Musculoskeletal Disorder, Neurologic Disorder, Osteoarthritis (OA) Additional Family Medical History / Comment(s): Mother of motor neuron disease at the age of 78yrs. <Feng Smith - Last Filed: 05/15/20 00:11> General Exam Limitations: no limitations <Feng Smith - Last Filed: 05/15/20 00:11> - General Exam Comments Initial Comments: Constitutional: NAD, AOX3, Pt tremulous appearance. HEENT: NC/AT, trachea midline, neck supple, no lymphadenopathy. Posterior pharynx non erythematous, without exudates. External ears appear normal, without discharge. Mucous membranes moist. Eyes PERRLA, EOM intact. There is no scleral icterus. No pallor noted. Cardiopulmonary: RRR, no murmurs, rubs or gallops, no JVD noted. Lungs CTAB in anterior and posterior llamas. No peripheral edema. Abdominal exam: Abdomen soft and non-distended. Abdomen non-tender to palpation in all 4 quadrants. Bowel sounds active in LLQ. No hepatosplenomegaly. No ecchymosis Neuro: CN II-XII grossly intact. No nuchal rigidity. No raccon eyes, no ventura sign, no hemotympanum. No cervical spinal tenderness. MSK: Full active ROM in upper and lower extremities, 5/5 stregnth. (Feng Smith) Course Vital Signs 05/14/20 05/15/20 05/15/20 21:11 06:51 08:14 Temperature 98.0 F Pulse Rate 98 67 67 Respiratory 18 16 18 Rate Blood Pressure 158/96 124/78 156/95 O2 Sat by Pulse 100 98 99 Oximetry 05/15/20 05/15/20 05/15/20 09:00 10:00 16:30 Temperature 98.0 F Pulse Rate 88 Respiratory 18 18 18 Rate Blood Pressure 132/88 O2 Sat by Pulse 99 99 98 Oximetry Medical Decision Making - Lab Data Result diagrams: 05/14/20 22:26 05/14/20 22:26 <Feng Smith - Last Filed: 05/15/20 00:11> - Lab Data Result diagrams: 05/16/20 06:28 05/14/20 22:26 <María Elena Troy - Last Filed: 05/16/20 10:05> - Medical Decision Making 44-year-old male patient to ED for evaluation of alcohol withdrawal. Physical exam negative for acute pathology. Laboratory investigations are remarkable for mild hypomagnesemia, supplemented. CIWA score 26. Patient be admitted for alcohol withdrawal. On repeat evaluation patient reports nausea and upset stomach, resolved with GI cocktail and antiemetic. Case discussed with Dr. Troy. (Feng Smith) I was available for consultation in the emergency department. The history and physical exam were done by the midlevel provider. I was consulted for this patients care. I reviewed the case with the midlevel provider and based on their presentation of the patient, I agree with the assessment, medical decision making and plan of care as documented. Chart was dictated using [email or web address] dictation software. Attempts were made to correct any dictation errors however some typographical errors may persist. Patient seen during the covid-19 pandemic. (María Elena Troy) - Lab Data Lab Results 05/14/20 05/14/20 05/14/20 Range/Units 22:26 22:26 22:26 WBC 8.3 (3.8-10.6) k/uL RBC 5.26 (4.30-5.90) m/uL Hgb 15.6 (13.0-17.5) gm/dL Hct 47.4 (39.0-53.0) % MCV 90.1 D (80.0-100.0) fL MCH 29.6 (25.0-35.0) pg MCHC 32.9 (31.0-37.0) g/dL RDW 12.7 (11.5-15.5) % Plt Count 227 (150-450) k/uL MPV 7.2 Neutrophils % 73 % Lymphocytes % 19 % Monocytes % 5 % Eosinophils % 0 % Basophils % 1 % Neutrophils # 6.1 (1.3-7.7) k/uL Lymphocytes # 1.6 (1.0-4.8) k/uL Monocytes # 0.4 (0-1.0) k/uL Eosinophils # 0.0 (0-0.7) k/uL Basophils # 0.1 (0-0.2) k/uL Sodium 136 L (137-145) mmol/L Potassium 4.7 (3.5-5.1) mmol/L Chloride 98 (98-107) mmol/L Carbon Dioxide 30 (22-30) mmol/L Anion Gap 8 mmol/L BUN 18 (9-20) mg/dL Creatinine 0.69 (0.66-1.25) mg/dL Est GFR (CKD-EPI)AfAm >90 (>60 ml/min/1.73 sqM) Est GFR (CKD-EPI)NonAf >90 (>60 ml/min/1.73 sqM) Glucose 114 H (74-99) mg/dL Calcium 9.6 (8.4-10.2) mg/dL Phosphorus 3.2 (2.5-4.5) mg/dL Magnesium 1.2 L (1.6-2.3) mg/dL Total Bilirubin 1.5 H (0.2-1.3) mg/dL AST 48 (17-59) U/L ALT 16 (4-49) U/L Alkaline Phosphatase 63 (38-126) U/L Total Protein 7.8 (6.3-8.2) g/dL Albumin 4.9 (3.5-5.0) g/dL Lipase 75 (23-300) U/L Urine Color Urine Appearance (Clear) Urine pH (5.0-8.0) Ur Specific [place] (1.001-1.035) Urine Protein (Negative) Urine Glucose (UA) (Negative) Urine Ketones (Negative) Urine Blood (Negative) Urine Nitrite (Negative) Urine Bilirubin (Negative) Urine Urobilinogen (<2.0) mg/dL Ur Leukocyte Esterase (Negative) Urine RBC (0-5) /hpf Urine WBC (0-5) /hpf Urine Opiates Screen (NotDetected) Ur Oxycodone Screen (NotDetected) Urine Methadone Screen (NotDetected) Ur Propoxyphene Screen (NotDetected) Ur Barbiturates Screen (NotDetected) U Tricyclic Antidepress (NotDetected) Ur Phencyclidine Scrn (NotDetected) Ur Amphetamines Screen (NotDetected) U Methamphetamines Scrn (NotDetected) U Benzodiazepines Scrn (NotDetected) Urine Cocaine Screen (NotDetected) U Marijuana (THC) Screen (NotDetected) Serum Alcohol <10 mg/dL 05/14/20 Range/Units 22:32 WBC (3.8-10.6) k/uL RBC (4.30-5.90) m/uL Hgb (13.0-17.5) gm/dL Hct (39.0-53.0) % MCV (80.0-100.0) fL MCH (25.0-35.0) pg MCHC (31.0-37.0) g/dL RDW (11.5-15.5) % Plt Count (150-450) k/uL MPV Neutrophils % % Lymphocytes % % Monocytes % % Eosinophils % % Basophils % % Neutrophils # (1.3-7.7) k/uL Lymphocytes # (1.0-4.8) k/uL Monocytes # (0-1.0) k/uL Eosinophils # (0-0.7) k/uL Basophils # (0-0.2) k/uL Sodium (137-145) mmol/L Potassium (3.5-5.1) mmol/L Chloride (98-107) mmol/L Carbon Dioxide (22-30) mmol/L Anion Gap mmol/L BUN (9-20) mg/dL Creatinine (0.66-1.25) mg/dL Est GFR (CKD-EPI)AfAm (>60 ml/min/1.73 sqM) Est GFR (CKD-EPI)NonAf (>60 ml/min/1.73 sqM) Glucose (74-99) mg/dL Calcium (8.4-10.2) mg/dL Phosphorus (2.5-4.5) mg/dL Magnesium (1.6-2.3) mg/dL Total Bilirubin (0.2-1.3) mg/dL AST (17-59) U/L ALT (4-49) U/L Alkaline Phosphatase (38-126) U/L Total Protein (6.3-8.2) g/dL Albumin (3.5-5.0) g/dL Lipase (23-300) U/L Urine Color Yellow Urine Appearance Clear (Clear) Urine pH 7.5 (5.0-8.0) Ur Specific [place] 1.015 (1.001-1.035) Urine Protein Negative (Negative) Urine Glucose (UA) Negative (Negative) Urine Ketones Negative (Negative) Urine Blood Negative (Negative) Urine Nitrite Negative (Negative) Urine Bilirubin Negative (Negative) Urine Urobilinogen <2.0 (<2.0) mg/dL Ur Leukocyte Esterase Small H (Negative) Urine RBC <1 (0-5) /hpf Urine WBC 2 (0-5) /hpf Urine Opiates Screen Not Detected (NotDetected) Ur Oxycodone Screen Not Detected (NotDetected) Urine Methadone Screen Not Detected (NotDetected) Ur Propoxyphene Screen Not Detected (NotDetected) Ur Barbiturates Screen Not Detected (NotDetected) U Tricyclic Antidepress Not Detected (NotDetected) Ur Phencyclidine Scrn Not Detected (NotDetected) Ur Amphetamines Screen Not Detected (NotDetected) U Methamphetamines Scrn Not Detected (NotDetected) U Benzodiazepines Scrn Detected H (NotDetected) Urine Cocaine Screen Not Detected (NotDetected) U Marijuana (THC) Screen Not Detected (NotDetected) Serum Alcohol mg/dL Disposition Is patient prescribed a controlled substance at d/c from ED?: No <Feng Smith - Last Filed: 05/15/20 00:11> <María Elena Troy - Last Filed: 05/16/20 10:05> Clinical Impression: Alcohol abuse with withdrawal Disposition: ADMITTED IP TO THIS [facility] Condition: Serious
[2020-05-14] MEDS ORDERED: MAG HYDROX/AL HYDROX/SIMETH 30 ML, HYOSCYAMINE ELIXIR 10 ML, LIDOCAINE VISCOUS 2% 10 ML PO STA ×3 (23:09)
[2020-05-14] MEDS ORDERED: METOCLOPRAMIDE 5 MG/ML 2 ML VIAL IVP STA (23:10)
[2020-05-15] MEDS: LORazepam 2 MG/ML INJ IV PRN ×9 (00:17→23:27)
[2020-05-15 00:27] LABS: Glucose,Whole Blood 99 mg/dL (75-99)
[2020-05-15] MEDS: THIAMINE 100 MG TAB PO SCH ×3 (08:13→18:30)
[2020-05-15] MEDS ORDERED: Magnesium Replacement Protocol 1 EACH MISC MISCELLANE PRN ×2 (12:10→17:09)
[2020-05-15] MEDS ORDERED: ALBUTEROL NEBULIZED 2.5 MG/3 ML INHALATION PRN (12:46)
[2020-05-15] MEDS ORDERED: MELOXICAM 7.5 MG TAB PO PRN (12:46)
[2020-05-15] MEDS ORDERED: PANTOPRAZOLE 40 MG TABLET PO SCH (13:00)
[2020-05-15] MEDS ORDERED: ONDANSETRON 4 MG/2 ML VIAL IVP PRN (13:37)
[2020-05-15] MEDS: MULTIVITAMINS, THERA 1 EACH TAB PO SCH (14:48)
[2020-05-15] MEDS: FOLIC ACID 1 MG TAB PO SCH (14:48)
[2020-05-15] MEDS: MAGNESIUM SULFATE-D5W PMX 1 GM in DEXTROSE/WATER 1 100ML.BAG IVPB SCH ×3 (15:13→18:30)
[2020-05-15] MEDS: LOSARTAN 50 MG TAB PO SCH (15:14)
[2020-05-15] MEDS: GABAPENTIN 300 MG CAP PO SCH ×2 (16:36→20:38)
[2020-05-15] MEDS: cloNIDine HCL 0.1 MG TAB PO SCH ×2 (16:36→20:38)
[2020-05-15] MEDS ORDERED: Potassium Replacement Protocol 1 EACH MISC MISCELLANE PRN (17:09)
[2020-05-15] MEDS ORDERED: ALPRAZolam 1 MG TAB PO PRN (17:09)
--- NOTE | 2020-05-15 17:42 | XR ---
EXAMINATION TYPE: XR chest 1V portable DATE OF EXAM: 05/15/2020 COMPARISON: 03/28/2020 HISTORY: Short of breath TECHNIQUE: FINDINGS: Heart and mediastinum are normal. Lungs are clear. Diaphragm is normal. Bony thorax appears normal. IMPRESSION: Normal chest. No change.
[2020-05-15] MEDS: HYDROcodone/APAP 5-325MG 1 EACH TAB PO PRN ×2 (17:46→23:59)
--- NOTE | 2020-05-15 19:28 | HP ---
HISTORY AND PHYSICAL DATE OF SERVICE: 05/15/2020 CHIEF COMPLAINT: Alcohol withdrawal. HISTORY OF PRESENT ILLNESS: This 44-year-old gentleman with a past history of alcoholism, history of GERD, GI bleed, hypertension, DJD, history of seizure disorder, being followed by Dr. Bynum in the outpatient setting previously admitted to [facility] on multiple occasions. Patient apparently was drinking heavily during the holidays and currently the patient is complaining of withdrawal symptoms. Patient attempted to stop and feels tremulous and anxious and patient came to [facility] and was admitted for further evaluation. CIWA protocol has started. There is no history of fever or rigors. No chest pain, palpitation. History of cough. PAST MEDICAL HISTORY: History of GERD, GI bleed, hypertension, DJD, history of pneumonia, seizure disorder, sleep apnea. MEDICATIONS: Home medications are: Desyrel, Catapres, Chantix starter pack, vitamin B1, Protonix, multivitamins, losartan, Neurontin, folic acid, Flonase, Celebrex. Ventolin. Xanax. ALLERGIES: CEPHALOSPORIN, BENADRYL. DEPAKOTE, ROCEPHIN, KEFLEX. LISINOPRIL. FAMILY HISTORY: History of cancer, dementia, neurologic disorder, melanoma, Parkinsonism. SOCIAL HISTORY: History of alcohol as mentioned. Previous history of smoking. REVIEW OF SYSTEMS: ENT: No diminished vision. No diminished hearing. CARDIOVASCULAR: No angina or palpitations. RESPIRATION: No cough or hemoptysis. GI: No nausea. no dysuria. Nervous system: No numbness, weakness. ALLERGY/IMMUNOLOGY: No asthma or hayfever. MUSCULOSKELETAL as mentioned earlier. HEMATOLOGY/ONCOLOGY: No history of anemia. ENDOCRINE: No history of diabetes or hypothyroidism. CONSTITUTIONAL: As mentioned earlier. DERMATOLOGY negative. RHEUMATOLOGY: Negative. PSYCHIATRIC as mentioned earlier. PHYSICAL EXAMINATION: Alert and oriented x3. Pulse 88. Blood pressure 132/80, respiration 18, temperature 98 degrees, pulse ox 98% on room air. HEENT: Conjunctivae normal. NECK: No JVD. CARDIOVASCULAR: S1, S2 muffled. RESPIRATORY: Breath sounds diminished in the bases. Scattered rhonchi. No crackles. ABDOMEN: Soft. Nontender. LEGS are no edema. No swelling. NERVOUS SYSTEM: No focal deficits. LABS: CBC noted. Sodium 136 and glucose 114, magnesium 1.2, bilirubin is 1.5. ASSESSMENT: 1. Acute alcohol withdrawal and early delirium tremens. 2. History of alcoholism. 3. Hyponatremia. 4. Hypomagnesemia. 5. Increased total bilirubin. 6. History of gastroesophageal reflux disease. 7. History of gastrointestinal bleed. 8. Hypertension. 9. History of degenerative joint disease. 10.History of pneumonia. 11.Seizure disorder. 12.Sleep apnea. 13.History of bilateral leg edema. 14.History of alcohol seizures. 15.History alcoholic gastritis. 16.History of degenerative joint disease. 17.History of anxiety, depression. 18.History of nicotine dependence. 19.FULL CODE. RECOMMENDATIONS AND DISCUSSION: In this 44-year-old gentleman who presented with multiple medical issues, at this time, I recommend to continue current medications, management and symptomatic treatment. CIWA protocol. Repeat labs. Supplement magnesium. Guarded prognosis because of multiple complex medical issues. Further recommendations to follow. A copy of dictation being forwarded to Dr. Bynum who is the primary physician. Social Work and Case Management to follow and arrange for alcohol rehab. MMODL / IJN: [id number] /
[2020-05-15 19:43] VITALS: RESP 16
[2020-05-15] MEDS: PANTOPRAZOLE 40 MG/10 ML VIAL IVP SCH (20:37)
[2020-05-15] MEDS: FLUTICASONE 50MCG/SPRAY NASAL 16GM EA NOSTRIL SCH (20:37)
[2020-05-15] MEDS: HEPARIN SODIUM,PORCINE 5,000 UNIT/ML 1 ML VIAL SQ SCH (20:37)
[2020-05-15] MEDS: VARENICLINE 0.5 MG TAB PO SCH (20:38)
[2020-05-15] MEDS ORDERED: traZODone HCL 100 MG TAB PO SCH (21:00)
[2020-05-15] MEDS: NICOTINE 21MG/24HR PATCH TRANSDERM SCH (22:14)
[2020-05-16] MEDS: LORazepam 2 MG/ML INJ IV PRN ×4 (02:23→09:54)
[2020-05-16] MEDS: HYDROcodone/APAP 5-325MG 1 EACH TAB PO PRN (05:36)
[2020-05-16 06:54] VITALS: BP 118/72; PULSE 70; TEMP 98.5
[2020-05-16 06:54] LABS: Basophils % (A) 1 %; Eosinophils # (A) 0.1 k/uL (0-0.7); Eosinophils % (A) 1 %; HCT 44.4 % (39.0-53.0); HGB 14.7 gm/dL (13.0-17.5); Lymphocytes # (A) 2.4 k/uL (1.0-4.8); Lymphocytes % (A) 34 %; MCH 30.3 pg (25.0-35.0); MCV 91.7 fL (80.0-100.0); Mean Platelet Volume 7.7; Monocytes # (A) 0.3 k/uL (0-1.0); Monocytes % (A) 4 %; Neutrophils % (A) 59 %; Platelet Count 170 k/uL (150-450); RBC 4.84 m/uL (4.30-5.90); RDW 12.6 % (11.5-15.5); WBC 6.9 k/uL (3.8-10.6)
[2020-05-16] MEDS: NICOTINE 21MG/24HR PATCH TRANSDERM SCH (07:37)
[2020-05-16] MEDS: HEPARIN SODIUM,PORCINE 5,000 UNIT/ML 1 ML VIAL SQ SCH (07:37)
[2020-05-16] MEDS: PANTOPRAZOLE 40 MG/10 ML VIAL IVP SCH (07:37)
[2020-05-16] MEDS: FLUTICASONE 50MCG/SPRAY NASAL 16GM EA NOSTRIL SCH (07:38)
[2020-05-16] MEDS: THIAMINE 100 MG TAB PO SCH ×2 (07:38→07:39)
[2020-05-16] MEDS: FOLIC ACID 1 MG TAB PO SCH (07:38)
[2020-05-16] MEDS: MULTIVITAMINS, THERA 1 EACH TAB PO SCH (07:38)
[2020-05-16] MEDS: cloNIDine HCL 0.1 MG TAB PO SCH (07:38)
[2020-05-16] MEDS: GABAPENTIN 300 MG CAP PO SCH (07:38)
[2020-05-16] MEDS: LOSARTAN 50 MG TAB PO SCH (07:39)
[2020-05-16] MEDS: VARENICLINE 0.5 MG TAB PO SCH (07:46)
[2020-05-16 10:20] LABS: African American GFR (CKD) 131.2 (60.0-200.0); Albumin 4.5 g/dL (3.80-4.90); Albumin/Globulin Ratio 2.5 (1.60-3.17); Anion Gap 8.7 mmol/L (4.00-12.00); Calcium 9.3 mg/dL (8.7-10.3); Carbon Dioxide 26.3 mmol/L (21.6-31.8); Globulin 1.8 g/dL (1.6-3.3); Non-African American GFR(CKD) 113.2 (60.0-200.0); Potassium 4.3 mmol/L (3.5-5.5); Total Bilirubin 1.1 mg/dL (0.2-1.2); Total Protein 6.3 g/dL (6.2-8.2)
[2020-05-16] MEDS ORDERED: ACETAMINOPHEN TAB 325 MG TAB PO PRN (11:46)
--- NOTE | 2020-05-16 14:03 | P.DS ---
Providers Date of admission: 05/14/20 22:50 Expected date of discharge: 05/16/20 Attending physician: Aida Arias Primary care physician: Veena Tabor Hospital Course: Final diagnosis Acute alcohol withdrawal and early delirium tremens History of alcoholism Hyponatremia Hypomagnesemia Increased total bilirubin history of gastroesophageal reflux disease History of GI bleed hypertension History of degenerative joint disease History of pneumonia Seizure disorder Sleep apnea history of bilateral leg edema history of alcohol seizures History of alcoholic gastritis history degenerative joint disease History of anxiety, depression History of nicotine dependence Full code Discharge disposition Patient is being discharged in a stable condition with guarded prognosis to home. Patient will follow-up with Dr. Tabor in the outpatient setting upon discharge. Patient provided resources for alcohol rehab. Total time taken is greater than 35 minutes. History of present illness This is a 44-year-old male who was recently admitted with acute alcohol withdrawal and is being closely monitored. Patient has a history of multiple admissions for alcohol withdrawal and acute alcohol intoxication and was initiated on CIWA protocol. Patient continued to have some nausea with vomiting although is currently on a regular diet and tolerating. Patient will be provided a Zofran prescription as needed for nausea and vomiting. Discussed with the patient about alcohol rehab and social work was consulted to provide resources. Patient also provided a prescription for Ativan 1 mg #6 tabs as needed. Patient was found to have low sodium and magnesium on admission and repeat labs are within normal limits. Patient instructed to follow-up with Dr. Tabor in the outpatient setting. Patient instructed to avoid alcohol intake upon discharge. Currently no reports of chest pain, shortness of breath, or palpitations. Patient is afebrile. Mild nausea with no vomiting and patient is tolerating diet. Patient will be discharged home today. Guarded prognosis On exam vital signs are stable. Temp is 97.9F, pulse is 75, respirations are 20, blood pressure is 119/66, oxygen saturation is 97% on room air. Cardio S1, S2 are muffled. Respiratory system shows diminished breath sounds at the bases with no wheezing or rhonchi noted. Abdomen is soft and and nontender. Nervous system shows diffuse weakness. Please refer to medication reconciliation sheet for a list of medications. Patient Condition at Discharge: Stable Plan - Discharge Summary Discharge Rx Participant: No New Discharge Prescriptions: New LORazepam [Ativan] 1 mg PO BID PRN 3 Days #6 tab PRN Reason: Anxiety RX: HYDROcodone/APAP 5-325MG [[place] 5-325] 1 each PO Q6HR PRN #6 tab PRN Reason: Pain Ondansetron Odt [Zofran Odt] 4 mg PO Q8HR PRN #10 tab PRN Reason: Nausea Continue RX: Pantoprazole Sodium 40 mg PO DAILY RX: Losartan Potassium 50 mg PO DAILY RX: Gabapentin [Neurontin] 600 mg PO TID RX: Albuterol Inhaler [Ventolin Hfa Inhaler] 1 - 2 puff INHALATION RT-QID PRN PRN Reason: Shortness Of Breath RX: Fluticasone Nasal [place] [Flonase Nasal [place]] 2 spray EA NOSTRIL BID RX: Celecoxib [CeleBREX] 200 mg PO DAILY PRN PRN Reason: Pain RX: ALPRAZolam [Xanax] 1 mg PO BID PRN PRN Reason: Anxiety RX: cloNIDine HCL [Catapres] 0.1 mg PO TID #90 tab RX: Folic Acid 1 mg PO DAILY #30 tablet RX: Multivitamins, Thera [Multivitamin (formulary)] 1 tab PO DAILY #30 tablet RX: Thiamine [Vitamin B-1] 100 mg PO DAILY #30 tablet RX: Varenicline [Chantix Starter Pack] 0.5 mg PO BID RX: traZODone HCL [Desyrel] 100 mg PO HS Discharge Medication List RX: Losartan Potassium 50 mg PO DAILY 01/03/19 [History] RX: Pantoprazole Sodium 40 mg PO DAILY 01/03/19 [History] RX: Gabapentin [Neurontin] 600 mg PO TID 03/04/19 [History] RX: Albuterol Inhaler [Ventolin Hfa Inhaler] 1 - 2 puff INHALATION RT-QID PRN 10/11/19 [History] RX: Celecoxib [CeleBREX] 200 mg PO DAILY PRN 10/11/19 [History] RX: Fluticasone Nasal [place] [Flonase Nasal [place]] 2 spray EA NOSTRIL BID 10/11/19 [History] RX: ALPRAZolam [Xanax] 1 mg PO BID PRN 01/24/20 [History] RX: Folic Acid 1 mg PO DAILY #30 tablet 03/29/20 [Rx] RX: Multivitamins, Thera [Multivitamin (formulary)] 1 tab PO DAILY #30 tablet 03/29/20 [Rx] RX: Thiamine [Vitamin B-1] 100 mg PO DAILY #30 tablet 03/29/20 [Rx] RX: cloNIDine HCL [Catapres] 0.1 mg PO TID #90 tab 03/29/20 [Rx] RX: Varenicline [Chantix Starter Pack] 0.5 mg PO BID 05/14/20 [History] RX: traZODone HCL [Desyrel] 100 mg PO HS 05/14/20 [History] LORazepam [Ativan] 1 mg PO BID PRN 3 Days #6 tab 05/16/20 [Rx] Ondansetron Odt [Zofran Odt] 4 mg PO Q8HR PRN #10 tab 05/16/20 [Rx] RX: HYDROcodone/APAP 5-325MG [[place] 5-325] 1 each PO Q6HR PRN #6 tab 05/16/20 [Rx] Follow up Appointment(s)/Referral(s): Veena Tabor DO [Primary Care Provider] - 05/18/20 9:20 am (In [place] office) Activity/Diet/Wound Care/Special Instructions: Activity Limited until follow-up Follow-up with primary care provider upon discharge Continue current diet Avoid alcohol Follow-up with outpatient community mental health and possible alcohol rehab
== END 2020-05-16 13:31 | disposition home or self-care (01) | DRG 897 ==
LOC: EC 21:06 → 3SCARD 22:50 → 4SSUR 05-15 15:32
PROVIDERS: ADMIT Hospitalist; ATTEND Hospitalist
DX: F10.231 Alcohol dependence with withdrawal delirium (principal); E87.1 Hypo-osmolality and hyponatremia; G40.909 Epilepsy, unspecified, not intractable, without status epilepticus; I10 Essential (primary) hypertension; K21.9 Gastro-esophageal reflux disease without esophagitis; M19.90 Unspecified osteoarthritis, unspecified site; G47.33 Obstructive sleep apnea (adult) (pediatric); M48.061 Spinal stenosis, lumbar region without neurogenic claudication; I83.90 Asymptomatic varicose veins of unspecified lower extremity; F32.9 Major depressive disorder, single episode, unspecified; F41.9 Anxiety disorder, unspecified; F17.210 Nicotine dependence, cigarettes, uncomplicated; E83.42 Hypomagnesemia; Y90.0 Blood alcohol level of less than 20 mg/100 ml; Z79.899 Other long term (current) drug therapy; Z87.01 Personal history of pneumonia (recurrent); Z87.19 Personal history of other diseases of the digestive system; Z90.49 Acquired absence of other specified parts of digestive tract; Z98.890 Other specified postprocedural states; Z88.1 Allergy status to other antibiotic agents; Z88.8 Allergy status to other drugs, medicaments and biological substances; Z80.8 Family history of malignant neoplasm of other organs or systems; Z82.0 Family history of epilepsy and other diseases of the nervous system; Z82.49 Family history of ischemic heart disease and other diseases of the circulatory system; Z82.61 Family history of arthritis
CPT/HCPCS: 36415; 71045; 80053; 80306; 80320; 81001; 83690; 83735; 84100; 85025; 96365; 96372; 96375; 96376; 99285

== ENCOUNTER 2020-06-13 05:17 | Inpatient (IN) | payer BC, OTHER ==
[2020-06-13] MEDS ORDERED: LORazepam 2 MG/ML INJ IV STA (05:23)
[2020-06-13] MEDS ORDERED: SODIUM CHLORIDE 0.9% 1,000 ML IV STA ×2 (05:23)
[2020-06-13] MEDS ORDERED: SODIUM CHLORIDE 0.9% 500 ML 500 ML IV STA (05:23)
[2020-06-13] MEDS ORDERED: ONDANSETRON 4 MG/2 ML VIAL IVP STA (05:28)
[2020-06-13] MEDS ORDERED: PANTOPRAZOLE 40 MG/10 ML VIAL IVP STA (05:28)
--- NOTE | 2020-06-13 05:29 | ED ---
Alcohol HPI - General Chief Complaint: Alcohol Stated Complaint: Alcohol withdraw Time Seen by Provider: 06/13/20 05:20 Source: patient, EMS, RN notes reviewed, old records reviewed Mode of arrival: EMS Limitations: no limitations - History of Present Illness Initial Comments: This is a 44-year-old male well-known to this facility for evaluation regarding when he believes his impending delirium tremens. Patient does have seizures related to alcohol withdrawal and has been drinking quite a bit lately. Patient feels that he is very shaky does not want to continue to drink without feeling increasingly weak with abdominal pain. Mild nausea with no active vomiting is generalized pain and abdominal pain MD Complaint: alcohol withdrawal, alcohol dependence, desires rehab Last Drink: just [employer], unknown -: days(s) Previous Visits for Alcohol Intoxication?: Yes Recent Trauma: Yes Associated Symptoms: nausea, seizure, tremors Treatments Prior to Arrival: none Chronic Alcohol Use: Yes - Related Data Home Medications Medication Instructions Recorded Confirmed Losartan Potassium 50 mg PO DAILY 01/03/19 05/14/20 Pantoprazole Sodium 40 mg PO DAILY 01/03/19 05/14/20 Gabapentin [Neurontin] 600 mg PO TID 03/04/19 05/14/20 Albuterol Inhaler [Ventolin Hfa 1 - 2 puff INHALATION RT-QID PRN 10/11/19 05/14/20 Inhaler] Celecoxib [CeleBREX] 200 mg PO DAILY PRN 10/11/19 05/14/20 Fluticasone Nasal [place] [Flonase 2 spray EA NOSTRIL BID 10/11/19 05/14/20 Nasal [place]] ALPRAZolam [Xanax] 1 mg PO BID PRN 01/24/20 05/14/20 Varenicline [Chantix Starter Pack] 0.5 mg PO BID 05/14/20 05/14/20 traZODone HCL [Desyrel] 100 mg PO HS 05/14/20 05/14/20 Previous Rx's Medication Instructions Recorded Folic Acid 1 mg PO DAILY #30 tablet 03/29/20 Multivitamins, Thera [Multivitamin 1 tab PO DAILY #30 tablet 03/29/20 (formulary)] Thiamine [Vitamin B-1] 100 mg PO DAILY #30 tablet 03/29/20 cloNIDine HCL [Catapres] 0.1 mg PO TID #90 tab 03/29/20 HYDROcodone/APAP 5-325MG [[place] 1 each PO Q6HR PRN #6 tab 05/16/20 5-325] LORazepam [Ativan] 1 mg PO BID PRN 3 Days #6 tab 05/16/20 Ondansetron Odt [Zofran Odt] 4 mg PO Q8HR PRN #10 tab 05/16/20 Allergies Allergy/AdvReac Type Severity Reaction Status Date / Time Cephalosporins Allergy Severe Anaphylaxis Verified 05/14/20 22:27 diphenhydramine HCl Allergy Severe Anaphylaxis Verified 05/14/20 22:27 [From Benadryl] divalproex sodium Allergy Severe Anaphylaxis Verified 05/14/20 22:27 [From Depakote] ceftriaxone [From Rocephin] Allergy Anaphylaxis Verified 05/14/20 22:27 cephalexin [From Keflex] Allergy Anaphylaxis Verified 05/14/20 22:27 lisinopril Allergy Anaphylaxis Verified 05/14/20 22:27 Review of Systems ROS Statement: Those systems with pertinent positive or pertinent negative responses have been documented in the HPI. ROS Other: All systems not noted in ROS Statement are negative. Past Medical History Past Medical History: GERD/Reflux, GI Bleed, Hypertension, Osteoarthritis (OA), Pneumonia, Seizure Disorder, Sleep Apnea/CPAP/BIPAP Additional Past Medical History / Comment(s): Occasional bilateral pedal edema if stands long, arthritis possibly in back/ribs, MILIND without device, ETOH abuse, alcoholic seizures/blackouts/fainting, alcoholic hepatitis, alcoholic gastritis, upper GI bleed, hypomagnesemia, spinal stenosis/herniated disc with surgery, bilateral varicose veins, hemorrhoids History of Any Multi-Drug Resistant Organisms: None Reported Past Surgical History: Appendectomy, Back Surgery, Tonsillectomy Additional Past Surgical History / Comment(s): bilateral discectomy, discectomy L5-S1, EGD Past Anesthesia/Blood Transfusion Reactions: Motion Sickness Past Psychological History: Anxiety, Depression Smoking Status: Current every day smoker Past Alcohol Use History: Abuse, Daily, Heavy Past Drug Use History: Marijuana - Past Family History Father Family Medical History: Cancer, Dementia, Neurologic Disorder Additional Family Medical History / Comment(s): melanoma, parkinsons Mother Family Medical History: Hypertension, Musculoskeletal Disorder, Neurologic Disorder, Osteoarthritis (OA) Additional Family Medical History / Comment(s): Mother of motor neuron disease at the age of 78yrs. General Exam Limitations: no limitations General appearance: alert, in no apparent distress, anxious, in distress, obese Head exam: Present: atraumatic, normocephalic, normal inspection Eye exam: Present: normal appearance, PERRL, EOMI. Absent: scleral icterus, conjunctival injection, periorbital swelling ENT exam: Present: normal exam, mucous membranes moist Neck exam: Present: normal inspection. Absent: tenderness, meningismus, lymphadenopathy Respiratory exam: Present: normal lung sounds bilaterally. Absent: respiratory distress, wheezes, rales, rhonchi, stridor Cardiovascular Exam: Present: normal rhythm, tachycardia, normal heart sounds. Absent: systolic murmur, diastolic murmur, rubs, gallop, clicks GI/Abdominal exam: Present: soft, normal bowel sounds. Absent: distended, tenderness, guarding, rebound, rigid Extremities exam: Present: normal inspection, full ROM, normal capillary refill. Absent: tenderness, pedal edema, joint swelling, calf tenderness Back exam: Present: normal inspection Neurological exam: Present: alert, oriented X3, CN II-XII intact Psychiatric exam: Present: normal affect, normal mood Skin exam: Present: warm, dry, intact, normal color. Absent: rash Course Vital Signs 06/13/20 05:18 Temperature 99 F Pulse Rate 103 H Respiratory 18 Rate Blood Pressure 183/92 O2 Sat by Pulse 97 Oximetry - Reevaluation(s) Reevaluation #1: 06/13/20 06:41 Medical record is reviewed Reevaluation #2: 06/13/20 06:41 Patient showing no improvement with Ativan here in the ER still complaining of pain as well as shaking. Patient feels like is going to have DTs, patient also very emotional denies suicidal thoughts but is very depressed Medical Decision Making - Medical Decision Making 44 male to the ED co weakness and in DTs will admit for psychiatric evaluation a nd supportive care - Lab Data Result diagrams: 06/13/20 05:25 06/13/20 05:25 Lab Results 06/13/20 06/13/20 Range/Units 05:25 05:25 WBC 6.3 (3.8-10.6) k/uL RBC 4.63 (4.30-5.90) m/uL Hgb 13.8 (13.0-17.5) gm/dL Hct 42.8 (39.0-53.0) % MCV 92.6 (80.0-100.0) fL MCH 29.8 (25.0-35.0) pg MCHC 32.2 (31.0-37.0) g/dL RDW 13.6 (11.5-15.5) % Plt Count 145 L (150-450) k/uL MPV 7.5 Neutrophils % 67 % Lymphocytes % 26 % Monocytes % 4 % Eosinophils % 2 % Basophils % 1 % Neutrophils # 4.2 (1.3-7.7) k/uL Lymphocytes # 1.7 (1.0-4.8) k/uL Monocytes # 0.2 (0-1.0) k/uL Eosinophils # 0.1 (0-0.7) k/uL Basophils # 0.0 (0-0.2) k/uL Sodium 138 (137-145) mmol/L Potassium 4.4 (3.5-5.1) mmol/L Chloride 98 (98-107) mmol/L Carbon Dioxide 28 (22-30) mmol/L Anion Gap 12 mmol/L BUN 8 L (9-20) mg/dL Creatinine 0.72 (0.66-1.25) mg/dL Est GFR (CKD-EPI)AfAm >90 (>60 ml/min/1.73 sqM) Est GFR (CKD-EPI)NonAf >90 (>60 ml/min/1.73 sqM) Glucose 86 (74-99) mg/dL Calcium 8.8 (8.4-10.2) mg/dL Phosphorus 3.1 (2.5-4.5) mg/dL Magnesium 1.1 L (1.6-2.3) mg/dL Total Bilirubin 1.7 H (0.2-1.3) mg/dL AST 121 H (17-59) U/L ALT 74 H (4-49) U/L Alkaline Phosphatase 67 (38-126) U/L Total Protein 7.4 (6.3-8.2) g/dL Albumin 4.7 (3.5-5.0) g/dL Lipase 72 (23-300) U/L Serum Alcohol 30 mg/dL - EKG Data -: EKG Interpreted by Me (EKG shows NSR 92 WI 172 QRS 106 Qtc 492) Disposition Clinical Impression: Alcoholic hepatitis, Dehydration, Alcohol addiction, Depression, Alcohol withdrawal, Abdominal pain, Acute alcoholic hepatitis, Delirium tremens Disposition: ADMITTED IP TO THIS HOSP Condition: Fair Is patient prescribed a controlled substance at d/c from ED?: No Referrals: Veena Bynum DO [Primary Care Provider] - 1-2 days
[2020-06-13 05:55] LABS: Basophils % (A) 1 %; Eosinophils # (A) 0.1 k/uL (0-0.7); Eosinophils % (A) 2 %; HCT 42.8 % (39.0-53.0); HGB 13.8 gm/dL (13.0-17.5); Lymphocytes # (A) 1.7 k/uL (1.0-4.8); Lymphocytes % (A) 26 %; MCH 29.8 pg (25.0-35.0); MCHC 32.2 g/dL (31.0-37.0); MCV 92.6 fL (80.0-100.0); Mean Platelet Volume 7.5; Monocytes # (A) 0.2 k/uL (0-1.0); Monocytes % (A) 4 %; Neutrophils # (A) 4.2 k/uL (1.3-7.7); Neutrophils % (A) 67 %; Platelet Count 145 k/uL (150-450); RBC 4.63 m/uL (4.30-5.90); RDW 13.6 % (11.5-15.5); WBC 6.3 k/uL (3.8-10.6)
[2020-06-13 06:08] LABS: ALT 74 U/L (4-49); AST 121 U/L (17-59); African American GFR (CKD) >90 (>60 ml/min/1.73 sqM); Albumin 4.7 g/dL (3.5-5.0); Alcohol 30 mg/dL; Alkaline Phosphatase 67 U/L (38-126); Anion Gap 12 mmol/L; Blood Urea Nitrogen 8 mg/dL (9-20); Calcium 8.8 mg/dL (8.4-10.2); Carbon Dioxide 28 mmol/L (22-30); Chloride 98 mmol/L (98-107); Glucose 86 mg/dL (74-99); Lipase 72 U/L (23-300); Magnesium 1.1 mg/dL (1.6-2.3); Non-African American GFR(CKD) >90 (>60 ml/min/1.73 sqM); Phosphorus 3.1 mg/dL (2.5-4.5); Potassium 4.4 mmol/L (3.5-5.1); Sodium 138 mmol/L (137-145); Total Bilirubin 1.7 mg/dL (0.2-1.3); Total Protein 7.4 g/dL (6.3-8.2)
[2020-06-13] MEDS ORDERED: THIAMINE 100 MG/ML 2 ML VIAL IM STA (06:42)
[2020-06-13] MEDS ORDERED: NALOXONE 0.4 MG/ML 1 ML VIAL IV PRN (06:42)
[2020-06-13] MEDS ORDERED: LORazepam 2 MG/ML INJ IV PRN ×2 (06:42)
[2020-06-13] MEDS: DEXTROSE 5%-0.45% NACL 1,000 ML IV SCH ×2 (07:25→17:41)
[2020-06-13] MEDS: ENOXAPARIN 40 MG/0.4 ML SYRINGE SQ SCH (07:26)
[2020-06-13] MEDS: HYDROcodone/APAP 5-325MG 1 EACH TAB PO PRN ×3 (07:49→20:51)
[2020-06-13] MEDS: ONDANSETRON 4 MG/2 ML VIAL IVP PRN ×2 (09:27→19:47)
[2020-06-13] MEDS: LORazepam 2 MG/ML INJ IV PRN ×4 (09:28→19:47)
[2020-06-13] MEDS ORDERED: MELOXICAM 7.5 MG TAB PO PRN (09:59)
[2020-06-13] MEDS ORDERED: ALBUTEROL NEBULIZED 2.5 MG/3 ML INHALATION PRN (09:59)
[2020-06-13] MEDS: FOLIC ACID 1 MG TAB PO SCH (11:47)
[2020-06-13] MEDS: MULTIVITAMINS, THERA 1 EACH TAB PO SCH (11:47)
[2020-06-13] MEDS: LOSARTAN 50 MG TAB PO SCH (11:47)
[2020-06-13] MEDS: GABAPENTIN 300 MG CAP PO SCH ×3 (11:47→20:52)
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
--- NOTE | 2020-06-13 14:24 | XR ---
EXAMINATION TYPE: XR chest 1V DATE OF EXAM: 06/13/2020 COMPARISON: Chest x-ray dated 05/15/2020 HISTORY: Cough TECHNIQUE: frontal view of the chest is obtained on 2 images. FINDINGS: There is no focal air space opacity, pleural effusion, or pneumothorax seen. The cardiac silhouette size is within normal limits. The osseous structures are intact. IMPRESSION: No acute process.
[2020-06-13] MEDS ORDERED: Magnesium Replacement Protocol 1 EACH MISC MISCELLANE PRN (15:53)
[2020-06-13] MEDS ORDERED: Potassium Replacement Protocol 1 EACH MISC MISCELLANE PRN (15:53)
[2020-06-13 16:11] LABS: SARS-CoV-2 RNA Rapid Abbott Not Detected (Not Detectd)
--- NOTE | 2020-06-13 16:29 | HP ---
HISTORY AND PHYSICAL DATE OF SERVICE: 06/13/2020 CHIEF COMPLAINT: Alcohol withdrawal and delirium tremens. HISTORY OF PRESENT ILLNESS: This 44-year-old gentleman with a past medical history of multiple medical problems including GERD, GI bleed, hypertension, history of seizure disorder, history of DTs, and alcohol dependence, being followed by Dr. Bynum in the outpatient setting, apparently was drinking again according to him. The patient had features of tremors and impending delirium tremens. The patient also had history of seizures related to alcohol withdrawal. Patient came to [facility] and admitted for further evaluation and treatment. The patient also complains of some cough also. There is no history of fever or rigors. No history of headache, loss of consciousness or any contact with COVID-19 infection. PAST MEDICAL HISTORY: GERD, GI bleed, hypertension, DJD, history of pneumonia. MEDICATIONS: Medications prior to admission include home medications are: 1. Trazodone. 2. Catapres. 3. Chantix. 4. Vitamin B1. 5. Protonix. 6. Multivitamins. 7. Losartan. 8. Neurontin. 9. Folic acid. 10.Flonase. 11.Celebrex. 12.Ventolin. 13.Xanax. ALLERGIES: CEPHALOSPORIN, DIPHENHYDRAMINE, ROCEPHIN, KEFLEX, LISINOPRIL. FAMILY HISTORY: History of cancer, dementia, melanoma, Parkinson's. SOCIAL HISTORY: History of alcohol, THC. Previous history of smoking. REVIEW OF SYSTEMS: ENT: No diminished hearing or diminished vision. CARDIOVASCULAR SYSTEM: No angina. RESPIRATORY SYSTEM: As mentioned earlier. GI: No nausea or vomiting. : No dysuria. NERVOUS SYSTEM: As mentioned earlier. ALLERGY/IMMUNOLOGY: No asthma or hayfever. MUSCULOSKELETAL: As mentioned earlier. HEMATOLOGY: No history of anemia. ENDOCRINE: No history of diabetes or hypothyroidism. CONSTITUTIONAL: As mentioned earlier. DERMATOLOGY: Negative. RHEUMATOLOGY: Negative. PSYCHIATRY: As mentioned earlier. PHYSICAL EXAMINATION: The patient is alert and oriented x3. The pulse is 109, blood pressure 156/85, respirations 16, temperature 98.8, pulse ox 96% on room air. HEENT: Conjunctivae normal. Oral mucosa moist. NECK: No jugular venous distention. No carotid bruit. No lymph node enlargement. CARDIOVASCULAR: S1, S2 muffled. RESPIRATORY: Breath sounds diminished at the bases. No rhonchi. No crackles. ABDOMEN: Soft, nontender. No mass palpable. LEGS: No edema, no swelling. NERVOUS SYSTEM: Higher functions as mentioned earlier. Moves all 4 limbs. Mild tremors present. SKIN: No ulcer, rash or bleeding. JOINTS: No active deforming arthropathy. LABS: Labs at this time show platelets 145 and magnesium is 1.1. AST is 121, ALT 74. ASSESSMENT: 1. Acute delirium tremens from alcohol withdrawal. 2. Hypomagnesemia. 3. Increased AST, ALT, alcoholic hepatitis. 4. Mild thrombocytopenia. 5. History of gastroesophageal reflux disease. 6. History of alcohol withdrawal seizures. 7. History of gastrointestinal bleed. 8. Hypertension. 9. Cough for evaluation, rule out COVID-19. 10.Degenerative joint disease. 11.History of pneumonia. 12.History of seizure disorder. 13.History of sleep apnea. 14.History of alcoholic gastritis. 15.History of appendectomy. 16.History of back surgery. 17.History of anxiety, depression. 18.History of nicotine dependence. 19.History of THC. 20.Obesity with body mass index of 36.9. 21.FULL CODE. RECOMMENDATIONS AND DISCUSSION: In this 44-year-old gentleman who presented with multiple complex medical issues, we will monitor the patient closely. Continue the current medications, continue symptomatic treatment. Otherwise CIWA protocol, multivitamin supplementation. I would also recommend COVID-19 testing also. I would also recommend a chest x-ray. Otherwise, the chest x-ray which was reviewed personally by me showed no evidence of any pneumonic process. Prognosis guarded because of multiple complex medical issues. Further recommendations to follow. A copy of dictation forwarded to Dr. Bynum who is the primary physician. MMODL / IJN: [id number] /
[2020-06-13] MEDS: cloNIDine HCL 0.1 MG TAB PO SCH ×2 (17:05→20:52)
[2020-06-13] MEDS: THIAMINE 100 MG TAB PO SCH (17:05)
[2020-06-13] MEDS: ACAMPROSATE CALCIUM 333 MG TABLET.DR PO SCH ×2 (17:05→20:51)
[2020-06-13] MEDS: FLUTICASONE 50MCG/SPRAY NASAL 16GM EA NOSTRIL SCH (20:51)
[2020-06-13] MEDS: VARENICLINE 0.5 MG TAB PO SCH (20:51)
[2020-06-13] MEDS: traZODone HCL 100 MG TAB PO SCH (20:51)
[2020-06-14] MEDS: LORazepam 2 MG/ML INJ IV PRN ×5 (02:43→16:23)
[2020-06-14] MEDS: HYDROcodone/APAP 5-325MG 1 EACH TAB PO PRN ×3 (04:26→21:01)
[2020-06-14] MEDS: DEXTROSE 5%-0.45% NACL 1,000 ML IV SCH ×2 (04:29→16:08)
[2020-06-14 06:55] LABS: Basophils % (A) 0 %; Eosinophils # (A) 0.1 k/uL (0-0.7); Eosinophils % (A) 1 %; HCT 41.3 % (39.0-53.0); HGB 13.6 gm/dL (13.0-17.5); Lymphocytes # (A) 1.7 k/uL (1.0-4.8); Lymphocytes % (A) 30 %; MCH 30.7 pg (25.0-35.0); MCHC 33.1 g/dL (31.0-37.0); Mean Platelet Volume 8.3; Monocytes # (A) 0.3 k/uL (0-1.0); Monocytes % (A) 5 %; Neutrophils # (A) 3.5 k/uL (1.3-7.7); Neutrophils % (A) 61 %; Platelet Count 124 k/uL (150-450); RBC 4.44 m/uL (4.30-5.90); RDW 13.1 % (11.5-15.5); WBC 5.7 k/uL (3.8-10.6)
[2020-06-14] MEDS: FLUTICASONE 50MCG/SPRAY NASAL 16GM EA NOSTRIL SCH ×2 (07:49→20:58)
[2020-06-14] MEDS: FOLIC ACID 1 MG TAB PO SCH (07:50)
[2020-06-14] MEDS: LOSARTAN 50 MG TAB PO SCH (07:50)
[2020-06-14] MEDS: MULTIVITAMINS, THERA 1 EACH TAB PO SCH (07:50)
[2020-06-14] MEDS: ACAMPROSATE CALCIUM 333 MG TABLET.DR PO SCH ×3 (07:50→20:58)
[2020-06-14] MEDS: THIAMINE 100 MG TAB PO SCH ×2 (07:50→16:07)
[2020-06-14] MEDS: cloNIDine HCL 0.1 MG TAB PO SCH ×3 (07:50→20:58)
[2020-06-14] MEDS: GABAPENTIN 300 MG CAP PO SCH ×3 (07:50→20:58)
[2020-06-14] MEDS: PANTOPRAZOLE 40 MG/10 ML VIAL IV SCH (07:50)
[2020-06-14] MEDS: ENOXAPARIN 40 MG/0.4 ML SYRINGE SQ SCH (07:51)
[2020-06-14] MEDS: VARENICLINE 0.5 MG TAB PO SCH ×2 (07:58→20:58)
[2020-06-14 10:49] LABS: African American GFR (CKD) 118.3 (60.0-200.0); Albumin 4.1 g/dL (3.80-4.90); Albumin/Globulin Ratio 2.16 (1.60-3.17); Anion Gap 7.3 mmol/L (4.00-12.00); BUN/Creat Ratio 11.11 Ratio (12.00-20.00); Calcium 8.8 mg/dL (8.7-10.3); Carbon Dioxide 28.7 mmol/L (21.6-31.8); Globulin 1.9 g/dL (1.6-3.3); Magnesium 1.3 mg/dL (1.5-2.4); Non-African American GFR(CKD) 102.1 (60.0-200.0); Potassium 4.2 mmol/L (3.5-5.5); Total Bilirubin 2.1 mg/dL (0.2-1.2)
[2020-06-14] MEDS: ALPRAZolam 1 MG TAB PO PRN (10:56)
[2020-06-14] MEDS: ONDANSETRON 4 MG/2 ML VIAL IVP PRN (11:54)
[2020-06-14] MEDS: CALCIUM CARB-MAG CARB-FOLIC 1 EACH TAB PO SCH ×2 (14:41→16:02)
--- NOTE | 2020-06-14 17:56 | PN ---
PROGRESS NOTE DATE OF SERVICE: 06/14/2020 This 44-year-old gentleman who was admitted with acute delirium tremens from alcohol withdrawal is being closely monitored at this time. No chest pain. No palpitations. No fever. PHYSICAL EXAMINATION: Alert and oriented x3. Pulse is 57, blood pressure 135/89, respiratory rate 16, temperature 98.7, pulse ox 97% on room air. HEENT: Conjunctivae normal. NECK: No jugular venous distention. CARDIOVASCULAR SYSTEM: S1, S2 muffled. RESPIRATORY SYSTEM: Breath sounds diminished at the bases. No rhonchi. No crackles. ABDOMEN: Soft, non-tender. LEGS: No edema. No swelling. NERVOUS SYSTEM: Diffuse tremors. LABS: Platelets are 124. Otherwise, magnesium is 1.3. COVID-19 is negative. ASSESSMENT: 1. Acute delirium tremens from alcohol withdrawal. 2. Hypomagnesemia. 3. Increased AST, ALT; alcoholic hepatitis. 4. Mild thrombocytopenia. 5. History of gastroesophageal reflux disease. 6. History of alcohol withdrawal seizures. 7. History of gastrointestinal bleed. 8. Hypertension. 9. Cough, acute bronchitis. COVID-19 ruled out. 10.Degenerative joint disease. 11.History of pneumonia. 12.History of seizure disorder. 13.History of sleep apnea. 14.History of alcoholic gastritis. 15.History of appendectomy. 16.History of back surgery. 17.History of anxiety, depression. 18.History of nicotine dependence. 19.History of tetrahydrocannabinol. 20.Obesity with body mass index of 36.9. 21.FULL CODE. RECOMMENDATIONS AND DISCUSSION: I recommend to continue current medications, continue with the monitoring, symptomatic treatment. Continue with CIWA protocol. Continue with multivitamins. Increase ambulation. Guarded prognosis. Further recommendations to follow. MMODL / IJN: [id number] /
[2020-06-14] MEDS: traZODone HCL 100 MG TAB PO SCH (20:58)
[2020-06-15] MEDS: ALPRAZolam 1 MG TAB PO PRN (00:13)
[2020-06-15] MEDS: DEXTROSE 5%-0.45% NACL 1,000 ML IV SCH (03:01)
[2020-06-15] MEDS: ENOXAPARIN 40 MG/0.4 ML SYRINGE SQ SCH (07:16)
[2020-06-15] MEDS: PANTOPRAZOLE 40 MG/10 ML VIAL IV SCH (07:17)
[2020-06-15] MEDS: THIAMINE 100 MG TAB PO SCH (07:17)
[2020-06-15] MEDS: LOSARTAN 50 MG TAB PO SCH (07:17)
[2020-06-15] MEDS: ACAMPROSATE CALCIUM 333 MG TABLET.DR PO SCH (07:17)
[2020-06-15] MEDS: GABAPENTIN 300 MG CAP PO SCH (07:17)
[2020-06-15] MEDS: MULTIVITAMINS, THERA 1 EACH TAB PO SCH (07:17)
[2020-06-15] MEDS: FOLIC ACID 1 MG TAB PO SCH (07:17)
[2020-06-15] MEDS: cloNIDine HCL 0.1 MG TAB PO SCH (07:17)
[2020-06-15] MEDS: VARENICLINE 0.5 MG TAB PO SCH (07:18)
[2020-06-15] MEDS: CALCIUM CARB-MAG CARB-FOLIC 1 EACH TAB PO SCH (07:18)
[2020-06-15] MEDS: FLUTICASONE 50MCG/SPRAY NASAL 16GM EA NOSTRIL SCH (07:18)
[2020-06-15 07:56] VITALS: PULSE 74; RESP 16; TEMP 98.3
[2020-06-15 08:06] VITALS: BP 138/70
[2020-06-15] MEDS: LORazepam 2 MG/ML INJ IV PRN (08:38)
[2020-06-15] MEDS: ONDANSETRON 4 MG/2 ML VIAL IVP PRN (10:40)
[2020-06-15] MEDS: HYDROcodone/APAP 5-325MG 1 EACH TAB PO PRN (10:40)
--- NOTE | 2020-06-15 14:39 | P.DS ---
Providers Date of admission: 06/13/20 06:42 Expected date of discharge: 06/15/20 Attending physician: Aida Arias Consults: 06/13/20 06:44 Consult Physician Routine Consulting Provider: Roni Gasca Reason/Comments: psych Do you want consulting provider notified?: Yes Primary care physician: Veena Tabor Hospital Course: Final diagnosis Acute delirium tremens from alcohol withdrawal Hypomagnesemia Increased AST, ALT, alcoholic hepatitis Mild thrombocytopenia History of gastroesophageal reflux disease history of alcohol withdrawal seizures History of gastrointestinal bleed hypertension Cough, acute bronchitis, Covid 19 ruled out Degenerative joint disease History of pneumonia History of seizure disorder History of sleep apnea History of alcoholic gastritis history of appendectomy History of back surgery History of anxiety, depression history of nicotine dependence History of THC use Obesity with a BMI of 36.9 Full code Discharge disposition Patient is being discharged in a stable condition with guarded prognosis to home. Patient will follow-up with Dr. Tabor in the outpatient setting upon discharge. Patient will also follow-up with [facility] on Thursday. Total time taken is greater than 35 minutes. Hospital course This is a 44-year-old male who was recently admitted with acute delirium tremens from alcohol withdrawal and was being closely monitored. Patient was seen and evaluated by psychiatry recommending outpatient follow-up. Patient will be following up with [facility] on Thursday. Patient will continue with Campral upon discharge. Patient instructed to avoid alcohol intake. Patient's gait is steady and has been walking around in the room with no difficulties. Currently no reports of chest pain, shortness of breath, or palpitations. Patient is afebrile. No reports of nausea or vomiting and patient is tolerating diet. Patient will be discharged home today. Guarded prognosis. On exam vital signs are stable. Temp is 98.3F, pulse is 74, respirations are 16, blood pressure is 138/70, oxygen saturation is 99% on room air. Cardio S1, S2 are muffled. Respiratory system shows diminished breath sounds at the bases with no wheezing or rhonchi noted. Abdomen is soft and nontender. Nervous system shows no focal deficits. Please refer to medication reconciliation sheet for a list of medications. Patient Condition at Discharge: Fair Plan - Discharge Summary New Discharge Prescriptions: New Acamprosate Calcium [Campral] 333 mg PO TID 30 Days #90 tablet.dr Calcium Carb-Mag Carb-Folic [Magnebind 400] 1 each PO AC-BID 30 Days #60 tab HYDROcodone/APAP 5-325MG [[place] 5-325] 1 each PO Q6H PRN #6 tab PRN Reason: Pain Continue Pantoprazole Sodium 40 mg PO DAILY Losartan Potassium 50 mg PO DAILY Gabapentin [Neurontin] 600 mg PO TID Albuterol Inhaler [Ventolin Hfa Inhaler] 1 - 2 puff INHALATION RT-QID PRN PRN Reason: Shortness Of Breath Fluticasone Nasal [place] [Flonase Nasal [place]] 2 spray EA NOSTRIL BID Celecoxib [CeleBREX] 200 mg PO DAILY PRN PRN Reason: Pain cloNIDine HCL [Catapres] 0.1 mg PO TID #90 tab Folic Acid 1 mg PO DAILY #30 tablet Multivitamins, Thera [Multivitamin (formulary)] 1 tab PO DAILY #30 tablet Thiamine [Vitamin B-1] 100 mg PO DAILY #30 tablet Varenicline [Chantix Starter Pack] 0.5 mg PO BID traZODone HCL [Desyrel] 100 mg PO HS ALPRAZolam [Xanax] 1 mg PO BID PRN #10 tab PRN Reason: Anxiety Discharge Medication List Losartan Potassium 50 mg PO DAILY 01/03/19 [History] Pantoprazole Sodium 40 mg PO DAILY 01/03/19 [History] Gabapentin [Neurontin] 600 mg PO TID 03/04/19 [History] Albuterol Inhaler [Ventolin Hfa Inhaler] 1 - 2 puff INHALATION RT-QID PRN 10/11/19 [History] Celecoxib [CeleBREX] 200 mg PO DAILY PRN 10/11/19 [History] Fluticasone Nasal [place] [Flonase Nasal [place]] 2 spray EA NOSTRIL BID 10/11/19 [History] Folic Acid 1 mg PO DAILY #30 tablet 03/29/20 [Rx] Multivitamins, Thera [Multivitamin (formulary)] 1 tab PO DAILY #30 tablet 03/29/20 [Rx] Thiamine [Vitamin B-1] 100 mg PO DAILY #30 tablet 03/29/20 [Rx] cloNIDine HCL [Catapres] 0.1 mg PO TID #90 tab 03/29/20 [Rx] Varenicline [Chantix Starter Pack] 0.5 mg PO BID 05/14/20 [History] traZODone HCL [Desyrel] 100 mg PO HS 05/14/20 [History] ALPRAZolam [Xanax] 1 mg PO BID PRN #10 tab 06/15/20 [Rx] Acamprosate Calcium [Campral] 333 mg PO TID 30 Days #90 tablet. 06/15/20 [Rx] Calcium Carb-Mag Carb-Folic [Magnebind 400] 1 each PO AC-BID 30 Days #60 tab 06/15/20 [Rx] HYDROcodone/APAP 5-325MG [[place] 5-325] 1 each PO Q6H PRN #6 tab 06/15/20 [Rx] Follow up Appointment(s)/Referral(s): Veena Tabor DO [Primary Care Provider] - 1-2 days Patient Instructions/Handouts: Alcohol Intoxication (DC), Abuse of Alcohol (DC), Alcohol Withdrawal (DC), Alcohol Dependence (DC), Alcohol Use Disorder (DC) Activity/Diet/Wound Care/Special Instructions: Activity Limited until follow-up Follow-up with primary care provider upon discharge Avoid alcohol intake Follow-up with [facility] recovery group on Thursday Discharge Disposition: HOME SELF-CARE
== END 2020-06-15 13:16 | disposition home or self-care (01) | DRG 897 ==
LOC: EC 05:17 → 4SSUR 06:42
PROVIDERS: ADMIT Hospitalist; ATTEND Hospitalist
DX: F10.231 Alcohol dependence with withdrawal delirium (principal); D69.6 Thrombocytopenia, unspecified; K70.10 Alcoholic hepatitis without ascites; K29.20 Alcoholic gastritis without bleeding; E86.0 Dehydration; E83.42 Hypomagnesemia; Y90.1 Blood alcohol level of 20-39 mg/100 ml; E66.9 Obesity, unspecified; Z68.36 Body mass index [BMI] 36.0-36.9, adult; K21.9 Gastro-esophageal reflux disease without esophagitis; I10 Essential (primary) hypertension; G40.909 Epilepsy, unspecified, not intractable, without status epilepticus; G47.33 Obstructive sleep apnea (adult) (pediatric); M47.9 Spondylosis, unspecified; M48.00 Spinal stenosis, site unspecified; I83.93 Asymptomatic varicose veins of bilateral lower extremities; K64.9 Unspecified hemorrhoids; M19.90 Unspecified osteoarthritis, unspecified site; F41.9 Anxiety disorder, unspecified; Z20.822 Contact with and (suspected) exposure to COVID-19; F32.9 Major depressive disorder, single episode, unspecified; F17.200 Nicotine dependence, unspecified, uncomplicated; Z98.890 Other specified postprocedural states; Z88.1 Allergy status to other antibiotic agents; Z88.8 Allergy status to other drugs, medicaments and biological substances; Z79.899 Other long term (current) drug therapy; Z79.1 Long term (current) use of non-steroidal anti-inflammatories (NSAID); Z87.01 Personal history of pneumonia (recurrent); Z86.59 Personal history of other mental and behavioral disorders; Z80.8 Family history of malignant neoplasm of other organs or systems; Z82.49 Family history of ischemic heart disease and other diseases of the circulatory system; Z82.61 Family history of arthritis; Z82.0 Family history of epilepsy and other diseases of the nervous system; Z90.49 Acquired absence of other specified parts of digestive tract; Z90.89 Acquired absence of other organs
CPT/HCPCS: 36415; 71045; 80053; 80320; 83690; 83735; 84100; 85025; 85379; 86140; 87502; 87635; 93005; 96361; 96372; 96374; 96375; 96376; 99285

== ENCOUNTER 2020-06-25 16:23 | Inpatient (IN) | payer BC, OTHER ==
[2020-06-25] MEDS ORDERED: KETOROLAC 15 MG/ML 1 ML VIAL IVP STA (16:33)
[2020-06-25] MEDS ORDERED: ONDANSETRON 4 MG/2 ML VIAL IVP STA (16:33)
[2020-06-25] MEDS ORDERED: PANTOPRAZOLE 40 MG/10 ML VIAL IVP STA (16:33)
[2020-06-25] MEDS ORDERED: SODIUM CHLORIDE 0.9% 1,000 ML IV STA ×2 (16:33)
[2020-06-25] MEDS ORDERED: LORazepam 2 MG/ML INJ IV STA ×2 (16:35→17:53)
[2020-06-25 16:50] LABS: Basophils % (A) 0 %; Eosinophils % (A) 1 %; HCT 42.2 % (39.0-53.0); HGB 13.7 gm/dL (13.0-17.5); Lymphocytes # (A) 1.7 k/uL (1.0-4.8); Lymphocytes % (A) 27 %; MCH 30.1 pg (25.0-35.0); MCHC 32.4 g/dL (31.0-37.0); MCV 92.9 fL (80.0-100.0); Mean Platelet Volume 8.2; Monocytes # (A) 0.3 k/uL (0-1.0); Monocytes % (A) 5 %; Neutrophils # (A) 4.2 k/uL (1.3-7.7); Neutrophils % (A) 65 %; Platelet Count 195 k/uL (150-450); RBC 4.54 m/uL (4.30-5.90); RDW 14.3 % (11.5-15.5); WBC 6.5 k/uL (3.8-10.6)
[2020-06-25 17:07] LABS: INR 0.9 (<1.2); Partial Thromboplastin Time 23.1 sec (22.0-30.0); Prothrombin Time 9.7 sec (9.0-12.0)
[2020-06-25 17:12] LABS: ALT 65 U/L (4-49); AST 117 U/L (17-59); African American GFR (CKD) >90 (>60 ml/min/1.73 sqM); Albumin 4.8 g/dL (3.5-5.0); Alkaline Phosphatase 61 U/L (38-126); Amylase 72 U/L (30-110); Anion Gap 12 mmol/L; Blood Urea Nitrogen 14 mg/dL (9-20); Calcium 9.1 mg/dL (8.4-10.2); Carbon Dioxide 29 mmol/L (22-30); Chloride 100 mmol/L (98-107); Glucose 93 mg/dL (74-99); Lipase 114 U/L (23-300); Non-African American GFR(CKD) >90 (>60 ml/min/1.73 sqM); Potassium 4.4 mmol/L (3.5-5.1); Sodium 141 mmol/L (137-145); Total Protein 7.5 g/dL (6.3-8.2)
[2020-06-25 17:18] LABS: Alcohol 86 mg/dL
--- NOTE | 2020-06-25 17:24 | XR ---
EXAMINATION TYPE: XR abdomen 2V DATE OF EXAM: 06/25/2020 CLINICAL DATA: 44 year-old male abdominal pain, [facility] COMPARISON: 07/12/2017 FINDINGS: Lung bases are clear. No evidence for free intraperitoneal air. Prominent scattered small bowel and colonic air is present throughout. No differential air-fluid leve ls. Air extends distally to the rectum. No significant stool burden. Couple surgical clips in the right mid abdomen. IMPRESSION: Nonobstructive bowel gas pattern. No free air. Prominent scattered colonic and small bowel air is pre sent throughout. Consider generalized ileus or enteritis.
[2020-06-25] MEDS ORDERED: METOCLOPRAMIDE 5 MG/ML 2 ML VIAL IVP STA (17:56)
[2020-06-25] MEDS ORDERED: MAG HYDROX/AL HYDROX/SIMETH 30 ML, HYOSCYAMINE ELIXIR 10 ML, LIDOCAINE VISCOUS 2% 10 ML PO STA ×3 (17:57)
--- NOTE | 2020-06-25 18:00 | ED ---
Alcohol HPI - General Chief Complaint: Alcohol Stated Complaint: ETOH, abd pain Time Seen by Provider: 06/25/20 16:26 Source: patient Mode of arrival: EMS Limitations: no limitations - History of Present Illness Initial Comments: The patient presents with a complaint of problems with alcohol. He states that he has been drinking excessively recently, more than normal. He drinks every day and has had significant problems with alcohol draw. He was admitted within the last month and states that he found out that his father and has been drinking significantly. He drinks throughout the day. He normally drinks 1.5 fifth's of alcohol per day. He has a long history of all called abuse, alcohol withdrawal, alcohol related seizures, and delirium tremens. He's been dry hospital multiple times previously and usually gets admitted for delirium t remens. He denies any injuries. He does complain of some midepigastric abdominal pain. He feels as though he is going through withdrawals currently. He feels very shaky and anxious as well. He states that he's been very nauseated and has vomited on occasion and has not been taking his medications regularly. No other complaints or modifying factors. - Related Data Home Medications Medication Instructions Recorded Confirmed Losartan Potassium 50 mg PO DAILY 01/03/19 06/25/20 Pantoprazole Sodium 40 mg PO DAILY 01/03/19 06/25/20 Gabapentin [Neurontin] 600 mg PO TID 03/04/19 06/25/20 Albuterol Inhaler [Ventolin Hfa 1 - 2 puff INHALATION RT-QID PRN 10/11/19 06/25/20 Inhaler] Celecoxib [CeleBREX] 200 mg PO DAILY PRN 10/11/19 06/25/20 Fluticasone Nasal [place] [Flonase 2 spray EA NOSTRIL BID 10/11/19 06/25/20 Nasal [place]] traZODone HCL [Desyrel] 100 mg PO HS 05/14/20 06/25/20 Calcium Carb-Mag Carb-Folic 1 tab PO AC-BID 06/25/20 06/25/20 [Magnebind 400] HYDROcodone/APAP 5-325MG [[place] 1 tab PO Q6H PRN 06/25/20 06/25/20 5-325] Ondansetron Odt [Zofran Odt] 4 mg PO TID PRN 06/25/20 06/25/20 Previous Rx's Medication Instructions Recorded Folic Acid 1 mg PO DAILY #30 tablet 03/29/20 Multivitamins, Thera [Multivitamin 1 tab PO DAILY #30 tablet 03/29/20 (formulary)] Thiamine [Vitamin B-1] 100 mg PO DAILY #30 tablet 03/29/20 cloNIDine HCL [Catapres] 0.1 mg PO TID #90 tab 03/29/20 ALPRAZolam [Xanax] 1 mg PO BID PRN #10 tab 06/15/20 Acamprosate Calcium [Campral] 333 mg PO TID 30 Days #90 tablet. 06/15/20 Allergies Allergy/AdvReac Type Severity Reaction Status Date / Time Cephalosporins Allergy Severe Anaphylaxis Verified 06/25/20 17:24 diphenhydramine HCl Allergy Severe Anaphylaxis Verified 06/25/20 17:24 [From Benadryl] divalproex sodium Allergy Severe Anaphylaxis Verified 06/25/20 17:24 [From Depakote] ceftriaxone [From Rocephin] Allergy Anaphylaxis Verified 06/25/20 17:24 cephalexin [From Keflex] Allergy Anaphylaxis Verified 06/25/20 17:24 lisinopril Allergy Anaphylaxis Verified 06/25/20 17:24 Review of Systems ROS Statement: Those systems with pertinent positive or pertinent negative responses have been documented in the HPI. ROS Other: All systems not noted in ROS Statement are negative. Past Medical History Past Medical History: GERD/Reflux, GI Bleed, Hypertension, Osteoarthritis (OA), Pneumonia, Seizure Disorder, Sleep Apnea/CPAP/BIPAP Additional Past Medical History / Comment(s): Occasional bilateral pedal edema if stands long, arthritis possibly in back/ribs, MILIND without device, ETOH abuse, alcoholic seizures/blackouts/fainting, alcoholic hepatitis, alcoholic gastritis, upper GI bleed, hypomagnesemia, spinal stenosis/herniated disc with surgery, bilateral varicose veins, hemorrhoids History of Any Multi-Drug Resistant Organisms: None Reported Past Surgical History: Appendectomy, Back Surgery, Tonsillectomy Additional Past Surgical History / Comment(s): bilateral discectomy, discectomy L5-S1, EGD Past Anesthesia/Blood Transfusion Reactions: Motion Sickness Past Psychological History: Anxiety, Depression Smoking Status: Current every day smoker Past Alcohol Use History: Abuse, Daily, Heavy Past Drug Use History: Marijuana - Past Family History Father Family Medical History: Cancer, Dementia, Neurologic Disorder Additional Family Medical History / Comment(s): melanoma, parkinsons Mother Family Medical History: Hypertension, Musculoskeletal Disorder, Neurologic Disorder, Osteoarthritis (OA) Additional Family Medical History / Comment(s): Mother of motor neuron disease at the age of 78yrs. General Exam - General Exam Comments Initial Comments: GENERAL: The patient is well nourished and well hydrated. VITAL SIGNS: Heart rate, blood pressure, respiratory rate reviewed as recorded in nurse's notes. EYES: Pupils are round and reactive. Extraocular movements are intact. No conjunctival / lid redness or swelling. ENT: No external evidence of injury, swelling, or ecchymosis. Airway is patent. Throat is clear. NECK: Nontender. No swelling or evidence of injury. No subcutaneous emphysema. Trachea is midline. No thyroid mass. HEART: Regular rate and rhythm. Good peripheral pulses. LUNGS/CHEST: Breath sounds clear and equal bilaterally. No rales, rhonchi, or wheezes. No ecchymosis, subcutaneous emphysema, or tenderness. ABDOMEN: Mild tenderness noted in the midepigastric region. No palpable masses or organomegaly. No peritoneal signs. No abdominal wall swelling or ecchymosis. EXTREMITIES: No extremity tenderness. Normal muscle tone and function. No thoracolumbar tenderness. NEUROLOGIC: Sensation is grossly intact. Cranial nerve exam reveals face is symmetrical, tongue is midline, speech is clear. Bilateral mild upper extremity tremor noted SKIN: No abrasions or ecchymosis is noted. No induration or masses noted. PSYCHIATRIC: Alert and oriented. Appropriate behavior and judgment. Appears anxious. Limitations: no limitations Course Vital Signs 06/25/20 16:27 Temperature 99.5 F Pulse Rate 100 Respiratory 20 Rate Blood Pressure 163/96 O2 Sat by Pulse 95 Oximetry Medical Decision Making - Medical Decision Making The patient was seen and examined. All diagnostics were reviewed. The patient up BACK elevated at 86. Remainder of labs are essentially within normal limits. The acute abdominal series x-ray showed some moderate gas but there is no obstruction or acute processes noted. This felt as though he likely does have smell: Gastritis and was given some Protonix intravenously. He is also given Ativan 1 mg IV and this later is repeated. He also receives a GI cocktail as he complains of continued abdominal pain. He receives Zofran and later Reglan for his nausea. Old records were reviewed. He's been here multiple times previously for very similar incidents. He does have a history of DVTs and alcohol withdrawal seizures. It is felt as though he would require admission once again. He is agreeable. Case is discussed with Zayra from internal medicine and she is agreeable with admission. - Lab Data Result diagrams: 06/25/20 16:41 06/25/20 16:41 Lab Results 06/25/20 06/25/20 06/25/20 Range/Units 16:41 16:41 16:41 WBC 6.5 (3.8-10.6) k/uL RBC 4.54 (4.30-5.90) m/uL Hgb 13.7 (13.0-17.5) gm/dL Hct 42.2 (39.0-53.0) % MCV 92.9 (80.0-100.0) fL MCH 30.1 (25.0-35.0) pg MCHC 32.4 (31.0-37.0) g/dL RDW 14.3 (11.5-15.5) % Plt Count 195 D (150-450) k/uL MPV 8.2 Neutrophils % 65 % Lymphocytes % 27 % Monocytes % 5 % Eosinophils % 1 % Basophils % 0 % Neutrophils # 4.2 (1.3-7.7) k/uL Lymphocytes # 1.7 (1.0-4.8) k/uL Monocytes # 0.3 (0-1.0) k/uL Eosinophils # 0.0 (0-0.7) k/uL Basophils # 0.0 (0-0.2) k/uL PT 9.7 (9.0-12.0) sec INR 0.9 (<1.2) APTT 23.1 (22.0-30.0) sec Sodium 141 (137-145) mmol/L Potassium 4.4 (3.5-5.1) mmol/L Chloride 100 (98-107) mmol/L Carbon Dioxide 29 (22-30) mmol/L Anion Gap 12 mmol/L BUN 14 (9-20) mg/dL Creatinine 0.70 (0.66-1.25) mg/dL Est GFR (CKD-EPI)AfAm >90 (>60 ml/min/1.73 sqM) Est GFR (CKD-EPI)NonAf >90 (>60 ml/min/1.73 sqM) Glucose 93 (74-99) mg/dL Calcium 9.1 (8.4-10.2) mg/dL Total Bilirubin 2.0 H (0.2-1.3) mg/dL AST 117 H (17-59) U/L ALT 65 H (4-49) U/L Alkaline Phosphatase 61 (38-126) U/L Total Protein 7.5 (6.3-8.2) g/dL Albumin 4.8 (3.5-5.0) g/dL Amylase 72 (30-110) U/L Lipase 114 (23-300) U/L Serum Alcohol 86 mg/dL Disposition Clinical Impression: Alcohol abuse with withdrawal, Abdominal pain, Intractable nausea and vomiting Disposition: ADMITTED IP TO THIS [facility] Condition: Fair Is patient prescribed a controlled substance at d/c from ED?: No Time of Disposition: 18:10 Decision Date: 06/25/20 Decision Time: 18:10
[2020-06-25] MEDS ORDERED: THIAMINE 100 MG/ML 2 ML VIAL IM STA (18:12)
[2020-06-25] MEDS ORDERED: LORazepam 2 MG/ML INJ IV PRN (18:12)
[2020-06-25] MEDS ORDERED: ACETAMINOPHEN TAB 325 MG TAB PO PRN (18:13)
[2020-06-25] MEDS ORDERED: METOCLOPRAMIDE 5 MG/ML 2 ML VIAL IVP PRN (18:17)
[2020-06-25] MEDS ORDERED: MELOXICAM 7.5 MG TAB PO PRN (19:56)
[2020-06-25] MEDS ORDERED: ALBUTEROL NEBULIZED 2.5 MG/3 ML INHALATION PRN (19:56)
[2020-06-25] MEDS: LORazepam 2 MG/ML INJ IV PRN ×2 (20:32→22:36)
[2020-06-25] MEDS: ACAMPROSATE CALCIUM 333 MG TABLET.DR PO SCH (22:36)
[2020-06-25] MEDS: traZODone HCL 100 MG TAB PO SCH (22:36)
[2020-06-25] MEDS: GABAPENTIN 300 MG CAP PO SCH (22:37)
[2020-06-25] MEDS: cloNIDine HCL 0.1 MG TAB PO SCH (22:37)
[2020-06-25] MEDS: FLUTICASONE 50MCG/SPRAY NASAL 16GM EA NOSTRIL SCH (22:37)
[2020-06-26] MEDS: LORazepam 2 MG/ML INJ IV PRN ×8 (02:27→22:57)
[2020-06-26 06:43] LABS: Basophils % (A) 0 %; Eosinophils # (A) 0.1 k/uL (0-0.7); Eosinophils % (A) 1 %; HCT 37.6 % (39.0-53.0); HGB 12.6 gm/dL (13.0-17.5); Lymphocytes % (A) 43 %; MCH 31.2 pg (25.0-35.0); MCHC 33.5 g/dL (31.0-37.0); MCV 93.2 fL (80.0-100.0); Monocytes # (A) 0.2 k/uL (0-1.0); Monocytes % (A) 4 %; Neutrophils # (A) 2.3 k/uL (1.3-7.7); Neutrophils % (A) 50 %; Platelet Count 141 k/uL (150-450); RBC 4.03 m/uL (4.30-5.90); RDW 13.6 % (11.5-15.5); WBC 4.6 k/uL (3.8-10.6)
[2020-06-26] MEDS: THIAMINE 100 MG TAB PO SCH ×2 (08:44→16:08)
[2020-06-26] MEDS: FOLIC ACID 1 MG TAB PO SCH (08:44)
[2020-06-26] MEDS: GABAPENTIN 300 MG CAP PO SCH ×3 (08:44→20:09)
[2020-06-26] MEDS: MULTIVITAMINS, THERA 1 EACH TAB PO SCH (08:44)
[2020-06-26] MEDS: CALCIUM CARB-MAG CARB-FOLIC 1 EACH TAB PO SCH ×2 (08:44→16:08)
[2020-06-26] MEDS: ACAMPROSATE CALCIUM 333 MG TABLET.DR PO SCH ×3 (08:44→20:08)
[2020-06-26] MEDS: cloNIDine HCL 0.1 MG TAB PO SCH ×3 (08:44→20:09)
[2020-06-26] MEDS: FLUTICASONE 50MCG/SPRAY NASAL 16GM EA NOSTRIL SCH ×2 (08:45→20:09)
[2020-06-26] MEDS: ENOXAPARIN 40 MG/0.4 ML SYRINGE SQ SCH (08:45)
[2020-06-26] MEDS ORDERED: MULTIVITAMINS, THERA 1 EACH TAB PO SCH (09:00)
[2020-06-26] MEDS ORDERED: PANTOPRAZOLE 40 MG/10 ML VIAL IV SCH (09:00)
[2020-06-26 10:41] LABS: African American GFR (CKD) 131.2 (60.0-200.0); Anion Gap 8.1 mmol/L (4.00-12.00); BUN/Creat Ratio 22.86 Ratio (12.00-20.00); Calcium 8.1 mg/dL (8.7-10.3); Carbon Dioxide 29.9 mmol/L (21.6-31.8); Non-African American GFR(CKD) 113.2 (60.0-200.0); Potassium 3.9 mmol/L (3.5-5.5)
[2020-06-26] MEDS: ONDANSETRON 4 MG/2 ML VIAL IVP PRN (12:02)
--- NOTE | 2020-06-26 13:14 | P.CN ---
Psychiatric Consult - . Consult date: 06/26/20 Consult:: REASON FOR CONSULT: Alcohol abuse and history of depression IDENTIFYING DATA: This patient is a single, employed, 44-year-old male was admitted for alcohol withdrawal. HISTORY OF PRESENT ILLNESS: The patient presented to the hospital on 06/25/2020 with a complaint of alcohol withdrawal. The patient was most recently admitted to the hospital for the same reason on 06/13/2020 and was discharged on 06/15/2020. The patient reports that since he was discharged, his father who was in hospice . He states that he has been drinking heavily since discharge with approximately a fifth and a half of vodka per day. He reports his last drink was yesterday at 5 AM. He is currently not reporting any suicidal or homicidal ideation, intention, and/or plan. He is not reporting any significant symptoms of depression aside from strong desire to use alcohol. He does express that he is grieving the loss of his father but that this is something that he will just have to go through. He does express some future orientation and desired to go to rehab as well as to make sure that he still has his job. He is not reporting any auditory or visual hallucinations. He is denying any paranoia or delusions. He does express that he has some psychosocial stressors including his relationship with his family. During his last hospital stay, the patient's trazodone and Xanax were continued and Campral was initiated for alcohol use disorder. The patient reports that he has been adherent with his psychotropic medications since his last discharge. CIWA scores have been in the low 10s. PAST PSYCHIATRIC HISTORY: Patient has a a history of depression and a long history of alcohol use disorder. He has had previous trials of medications including gabapentin, Vistaril, and uses Xanax for anxiety prescribed by his primary care physician and was last discharged with Campral started for alcohol use disorder. He has had 1 previous psychiatric [place] [facility] [place] for worsening depression and suicidal ideation. He currently denies any outpatient psychiatric follow-up. He denies any prior attempts at suicide. PAST MEDICAL HISTORY: GERD, hypertension, arthritis, pneumonia, seizure disorder, sleep apnea. ALLERGIES: Cephalosporins, diphenhydramine, Depakote, Rocephin, Keflex, lisinopril CHEMICAL DEPENDENCY HISTORY: Patient is currently a daily smoker. Patient was drinking up to a fifth and a half of liquor per day. Last drink was yesterday at 5 AM. He also has used marijuana in the past. He denies any illicit drug use. FAMILY PSYCHIATRIC/SUBSTANCE USE HISTORY: He reports that his father was diagnosed with schizophrenia. SOCIAL HISTORY: FROM LAST ADMISSION - Patient was born and raised in [place], [place]. He currently lives alone with his pet fish. He is 1 of 4 children. His eldest brother at the age of 11 after being hit by a bus. He is currently employed as a [employer] at [employer]. His father recently on 06/15/20. MENTAL STATUS EXAM: General Appearance: Patient appears to be stated age is alert, pleasant, and cooperative. Patient appears to have fair hygiene and grooming wearing hospital gown with fair eye contact. Hair is cut. Behavior: Patient is calmly lying in bed without any agitated behavior. No tremors noted at this time. Speech: Patient's speech is fluent and nonpressured. Mood/Affect: Patient reports their mood is "ashamed", affect is congruent and withdrawn. Suicidality/Homicidality: Patient vehemently denies any suicidal or homicidal ideation, intention, and/or plan. Perceptions: Patient denies any visual hallucinations and denies any auditory hallucinations Though content/process: There is no evidence of any delusional thought content and thought process is linear and goal-directed. Memory and concentration: AOX3, grossly intact for the purposes of this session. 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 -Continue his treatment for alcohol withdrawal. [facility] protocol. -Would recommend the following medication changes/additions: We will increase Campral to 666 mg 3 times a day for alcohol use disorder Continue trazodone 100 mg by mouth at bedtime Continue Xanax 1 mg by mouth twice a day when necessary for anxiety -Recommend outpatient primary care follow-up. Recommend counseling and therapy services in the outpatient setting. Patient does want to go to inpatient alcohol abuse rehab but states that he has some commitments to work that he needs to sort out with first. -Psychiatry will sign off at this point, please contact with any questions. 06/26/20 13:05
[2020-06-26] MEDS: SODIUM CHLORIDE 0.9% 1,000 ML IV SCH (14:29)
[2020-06-26] MEDS: HYDROcodone/APAP 5-325MG 1 EACH TAB PO PRN ×2 (16:08→22:07)
--- NOTE | 2020-06-26 18:19 | P.HPIM ---
History of Present Illness H&P Date: 06/26/20 Chief Complaint: Alcohol withdrawal symptoms Patient is a 44-year-old male with a known history of severe alcohol abuse on daily basis, smoking and marijuana use, GERD, osteoarthritis, hypertension, seizure disorder, obstructive sleep apnea and other multiple medical problems presents to ER due to alcohol withdrawal symptoms. Patient has been drinking excessively recently more than normal. Patient says that she felt ready depressed and has been drinking heavily. Patient says that his father recently. Patient has been drinking 1/5 of alcohol per day. Otherwise denied any complains of chest pain or shortness of breath. Patient does have epigastric abdominal pain. Denied any fever or chills. No cough or sputum production. Patient feels very shaky and anxious and presents to ER. No nausea vomiting or diarrhea. X-ray of the abdomen showed nonobstructive bowel gas pattern. No free 8. Prominent scattered chronic and small bowel 80s present throughout. Considered generalized ileus or enteritis. Laboratory data showed WBC 6.5, hemoglobin 13.7, platelets 195 Sodium 141, potassium 4.4, chloride 100, P and 14 and creatinine 0.7 AST 117, ALT 65 and serum alcohol level is 86 on admission Acute alcohol intoxication Generalized shakiness and alcohol withdrawal symptoms Depressive disorder and acute bereavement Alcoholic hepatitis elevated AST greater than ALT Severe alcohol abuse and previous admissions with withdrawal symptoms and intoxication Epigastric abdominal pain due to alcohol gastritis History of alcohol withdrawal symptoms Obstructive sleep apnea not on CPAP at home Osteoarthritis History of GI bleed Anxiety/depression History of marijuana use an daily smoking DVT prophylaxis with heparin subcu Plan: Patient will be continued on IV hydration and thiamine and folic acid. Monitor for alcohol withdrawal symptoms and continue with home medications. Continue with GI and DVT prophylaxis. Further recommendations based on the clinical course. Psychiatry was consulted due to depression and alcohol use. Continue with current management and further recommendations based on the clinical course. Review of Systems Constitutional: Patient denies any fever or chills . No generalized weakness or weight loss. Abdomen: Patient denied nausea vomiting and diarrhea and abdominal pain. Cardiovascular: Patient denies any chest pain or short of breath no palpitations. Respiratory: patient denied any cough is from production. No shortness of breath Neurologic: Patient denied any numbness or tingling headache. Musculoskeletal: Patient denies any complaints of joint swelling or deformity. Skin: Negative Psychiatric: Anxious and shaky. Endocrine: No heat or cold intolerance. No recent weight gain. Genitourinary: No dysuria or hematuria. All other 14 point ROS negative except the above Past Medical History Past Medical History: GERD/Reflux, GI Bleed, Hypertension, Osteoarthritis (OA), Pneumonia, Seizure Disorder, Sleep Apnea/CPAP/BIPAP Additional Past Medical History / Comment(s): Occasional bilateral pedal edema if stands long, arthritis possibly in back/ribs, MILIND without device, ETOH abuse, alcoholic seizures/blackouts/fainting, alcoholic hepatitis, alcoholic gastritis, upper GI bleed, hypomagnesemia, spinal stenosis/herniated disc with surgery, bilateral varicose veins, hemorrhoids History of Any Multi-Drug Resistant Organisms: None Reported Past Surgical History: Appendectomy, Back Surgery, Tonsillectomy Additional Past Surgical History / Comment(s): bilateral discectomy, discectomy L5-S1, EGD Past Anesthesia/Blood Transfusion Reactions: Motion Sickness Past Psychological History: Anxiety, Depression Additional Psychological History / Comment(s): pt lives alone no pets. Pt uses no assistive device. He drives. Smoking Status: Current every day smoker Past Alcohol Use History: Abuse, Daily, Heavy Additional Past Alcohol Use History / Comment(s): He has been in rehab in the past for ETOH abuse. Pt states he started on and off smoking as a young adult and has more often been a nonsmoker. He states a pack might last him 3-4 days. Pt states he drinks 1/5 vodka a day Past Drug Use History: Marijuana Additional Drug Use History / Comment(s): Pt smoked marijuana on occasion in the past. - Past Family History Father Family Medical History: Cancer, Dementia, Neurologic Disorder Additional Family Medical History / Comment(s): melanoma, parkinsons Mother Family Medical History: Hypertension, Musculoskeletal Disorder, Neurologic Disorder, Osteoarthritis (OA) Additional Family Medical History / Comment(s): Mother of motor neuron disease at the age of 78yrs. Medications and Allergies Home Medications Medication Instructions Recorded Confirmed Type Losartan Potassium 50 mg PO DAILY 01/03/19 06/25/20 History Pantoprazole Sodium 40 mg PO DAILY 01/03/19 06/25/20 History Gabapentin [Neurontin] 600 mg PO TID 03/04/19 06/25/20 History Albuterol Inhaler [Ventolin Hfa 1 - 2 puff INHALATION RT-QID PRN 10/11/19 06/25/20 History Inhaler] Celecoxib [CeleBREX] 200 mg PO DAILY PRN 10/11/19 06/25/20 History Fluticasone Nasal [place] [Flonase 2 spray EA NOSTRIL BID 10/11/19 06/25/20 History Nasal [place]] Folic Acid 1 mg PO DAILY #30 tablet 03/29/20 06/25/20 Rx Multivitamins, Thera [Multivitamin 1 tab PO DAILY #30 tablet 03/29/20 06/25/20 Rx (formulary)] Thiamine [Vitamin B-1] 100 mg PO DAILY #30 tablet 03/29/20 06/25/20 Rx cloNIDine HCL [Catapres] 0.1 mg PO TID #90 tab 03/29/20 06/25/20 Rx traZODone HCL [Desyrel] 100 mg PO HS 05/14/20 06/25/20 History ALPRAZolam [Xanax] 1 mg PO BID PRN #10 tab 06/15/20 06/25/20 Rx Acamprosate Calcium [Campral] 333 mg PO TID 30 Days #90 tablet. 06/15/20 06/25/20 Rx Calcium Carb-Mag Carb-Folic 1 tab PO AC-BID 06/25/20 06/25/20 History [Magnebind 400] HYDROcodone/APAP 5-325MG [[place] 1 tab PO Q6H PRN 06/25/20 06/25/20 History 5-325] Ondansetron Odt [Zofran Odt] 4 mg PO TID PRN 06/25/20 06/25/20 History Allergies Allergy/AdvReac Type Severity Reaction Status Date / Time Cephalosporins Allergy Severe Anaphylaxis Verified 06/25/20 17:24 diphenhydramine HCl Allergy Severe Anaphylaxis Verified 06/25/20 17:24 [From Benadryl] divalproex sodium Allergy Severe Anaphylaxis Verified 06/25/20 17:24 [From Depakote] ceftriaxone [From Rocephin] Allergy Anaphylaxis Verified 06/25/20 17:24 cephalexin [From Keflex] Allergy Anaphylaxis Verified 06/25/20 17:24 lisinopril Allergy Anaphylaxis Verified 06/25/20 17:24 Physical Exam Vitals: Vital Signs Temp Pulse Pulse Resp BP BP Pulse Ox 06/26/20 07:39 97.7 F 54 L 18 151/90 97 06/26/20 02:21 97.3 F L 60 18 135/82 95 06/25/20 20:00 98.2 F 75 17 159/88 96 06/25/20 19:39 98.9 F 78 18 142/74 96 06/25/20 18:17 88 18 144/85 96 06/25/20 16:27 99.5 F 100 20 163/96 95 Intake and Output 06/25/20 06/26/20 06/26/20 22:59 06:59 14:59 Other: # Voids 1 Weight 127.006 kg PHYSICAL EXAMINATION: Patient is lying in the bed comfortably, no acute distress, awake alert and oriented. Anxious and shaky. HEENT: Normocephalic. Neck is supple. Pupils reactive. Nostrils clear. Oral cavity is moist. Ears reveal no drainage. Neck reveals no JVD, carotid bruits, or thyromegaly. CHEST EXAMINATION: Trachea is central. Symmetrical expansion. Lung llamas clear to auscultation and percussion. CARDIAC: Normal S1, S2 with no gallops. No murmurs ABDOMEN: Soft. Bowel sounds normal. No organomegaly. No abdominal bruits. Extremities: reveal no edema. No clubbing or cyanosis Neurologically awake, alert, oriented x3 with well-coordinated movements. No focal deficits noted Skin: No rash or skin lesions. Psychiatric: Coperative. Denied any suicidal ideation Musculoskeletal: No joint swelling or deformity. Normal range of motion. Results CBC & Chem 7: 06/26/20 06:28 06/26/20 06:28 Labs: Abnormal Lab Results - Last 24 Hours (Table) 06/25/20 06/26/20 06/26/20 Range/Units 16:41 06:28 06:28 RBC 4.03 L (4.30-5.90) m/uL Hgb 12.6 L (13.0-17.5) gm/dL Hct 37.6 L (39.0-53.0) % Plt Count 141 L (150-450) k/uL BUN/Creatinine Ratio 22.86 H (12.00-20.00) Ratio Calcium 8.1 L (8.7-10.3) mg/dL Total Bilirubin 2.0 H (0.2-1.3) mg/dL AST 117 H (17-59) U/L ALT 65 H (4-49) U/L Thrombosis Risk Factor Assmnt - DVT/VTE Prophylaxis DVT/VTE Prophylaxis: Pharmacologic Prophylaxis ordered Assessment and Plan Assessment: Acute alcohol intoxication Generalized shakiness and alcohol withdrawal symptoms Depressive disorder and acute bereavement Alcoholic hepatitis elevated AST greater than ALT Severe alcohol abuse and previous admissions with withdrawal symptoms and intoxication Epigastric abdominal pain due to alcohol gastritis History of alcohol withdrawal symptoms Obstructive sleep apnea not on CPAP at home Osteoarthritis History of GI bleed Anxiety/depression History of marijuana use an daily smoking DVT prophylaxis with heparin subcu Plan: Patient will be continued on IV hydration and thiamine and folic acid. Monitor for alcohol withdrawal symptoms and continue with home medications. Continue with GI and DVT prophylaxis. Further recommendations based on the clinical course. Psychiatry was consulted due to depression and alcohol use. Continue with current management and further recommendations based on the clin ical course. Time with Patient: Greater than 30
[2020-06-26] MEDS: PANTOPRAZOLE 40 MG TABLET PO SCH (20:08)
[2020-06-26] MEDS: traZODone HCL 100 MG TAB PO SCH (20:09)
[2020-06-27] MEDS: LORazepam 2 MG/ML INJ IV PRN ×8 (03:47→23:14)
[2020-06-27] MEDS: SODIUM CHLORIDE 0.9% 1,000 ML IV SCH ×3 (03:48→16:29)
[2020-06-27] MEDS: HYDROcodone/APAP 5-325MG 1 EACH TAB PO PRN ×4 (04:22→23:07)
[2020-06-27] MEDS: PANTOPRAZOLE 40 MG TABLET PO SCH (07:25)
[2020-06-27] MEDS: ENOXAPARIN 40 MG/0.4 ML SYRINGE SQ SCH (07:25)
[2020-06-27] MEDS: THIAMINE 100 MG TAB PO SCH ×2 (07:25→16:27)
[2020-06-27] MEDS: GABAPENTIN 300 MG CAP PO SCH ×3 (07:25→19:49)
[2020-06-27] MEDS: MULTIVITAMINS, THERA 1 EACH TAB PO SCH (07:25)
[2020-06-27] MEDS: FLUTICASONE 50MCG/SPRAY NASAL 16GM EA NOSTRIL SCH ×2 (07:25→19:48)
[2020-06-27] MEDS: cloNIDine HCL 0.1 MG TAB PO SCH ×3 (07:25→19:49)
[2020-06-27] MEDS: CALCIUM CARB-MAG CARB-FOLIC 1 EACH TAB PO SCH ×2 (07:25→16:28)
[2020-06-27] MEDS: FOLIC ACID 1 MG TAB PO SCH (07:25)
[2020-06-27] MEDS: ACAMPROSATE CALCIUM 333 MG TABLET.DR PO SCH ×3 (07:26→19:51)
[2020-06-27] MEDS: traZODone HCL 100 MG TAB PO SCH (19:49)
[2020-06-27] MEDS: ALPRAZolam 1 MG TAB PO PRN (21:19)
[2020-06-28] MEDS: SODIUM CHLORIDE 0.9% 1,000 ML IV SCH ×3 (03:42→20:18)
[2020-06-28] MEDS: LORazepam 2 MG/ML INJ IV PRN ×6 (05:57→22:50)
[2020-06-28] MEDS: MULTIVITAMINS, THERA 1 EACH TAB PO SCH (07:43)
[2020-06-28] MEDS: cloNIDine HCL 0.1 MG TAB PO SCH ×3 (07:43→20:14)
[2020-06-28] MEDS: FOLIC ACID 1 MG TAB PO SCH (07:43)
[2020-06-28] MEDS: PANTOPRAZOLE 40 MG TABLET PO SCH (07:43)
[2020-06-28] MEDS: THIAMINE 100 MG TAB PO SCH ×2 (07:43→16:21)
[2020-06-28] MEDS: GABAPENTIN 300 MG CAP PO SCH ×3 (07:43→20:13)
[2020-06-28] MEDS: ENOXAPARIN 40 MG/0.4 ML SYRINGE SQ SCH (07:44)
[2020-06-28] MEDS: FLUTICASONE 50MCG/SPRAY NASAL 16GM EA NOSTRIL SCH ×2 (07:44→20:14)
[2020-06-28] MEDS: CALCIUM CARB-MAG CARB-FOLIC 1 EACH TAB PO SCH ×2 (07:44→16:21)
[2020-06-28] MEDS: ACAMPROSATE CALCIUM 333 MG TABLET.DR PO SCH ×3 (07:44→20:14)
[2020-06-28] MEDS: HYDROcodone/APAP 5-325MG 1 EACH TAB PO PRN ×3 (07:53→21:31)
[2020-06-28] MEDS: traZODone HCL 100 MG TAB PO SCH (20:14)
[2020-06-29] MEDS: HYDROcodone/APAP 5-325MG 1 EACH TAB PO PRN ×2 (04:27→08:38)
[2020-06-29] MEDS: LORazepam 2 MG/ML INJ IV PRN (04:28)
[2020-06-29] MEDS: ACAMPROSATE CALCIUM 333 MG TABLET.DR PO SCH (08:37)
[2020-06-29] MEDS: CALCIUM CARB-MAG CARB-FOLIC 1 EACH TAB PO SCH (08:38)
[2020-06-29] MEDS: FOLIC ACID 1 MG TAB PO SCH (08:38)
[2020-06-29] MEDS: PANTOPRAZOLE 40 MG TABLET PO SCH (08:38)
[2020-06-29] MEDS: cloNIDine HCL 0.1 MG TAB PO SCH (08:38)
[2020-06-29] MEDS: GABAPENTIN 300 MG CAP PO SCH (08:38)
[2020-06-29] MEDS: ENOXAPARIN 40 MG/0.4 ML SYRINGE SQ SCH (08:38)
[2020-06-29] MEDS: THIAMINE 100 MG TAB PO SCH (08:38)
[2020-06-29] MEDS: MULTIVITAMINS, THERA 1 EACH TAB PO SCH (08:41)
[2020-06-29] MEDS: FLUTICASONE 50MCG/SPRAY NASAL 16GM EA NOSTRIL SCH (08:41)
[2020-06-29] MEDS: ALPRAZolam 1 MG TAB PO PRN (08:47)
[2020-06-29] MEDS: ONDANSETRON 4 MG/2 ML VIAL IVP PRN (11:08)
[2020-06-29 14:14] VITALS: BP 138/86; PULSE 68; RESP 16; TEMP 99.2
== END 2020-06-29 16:46 | disposition home or self-care (01) | DRG 897 ==
LOC: EC 16:23 → 4SSUR 18:24
PROVIDERS: ADMIT Internal Medicine; ATTEND Internal Medicine
DX: F10.130 Alcohol abuse with withdrawal, uncomplicated (principal); K70.10 Alcoholic hepatitis without ascites; G40.909 Epilepsy, unspecified, not intractable, without status epilepticus; F10.120 Alcohol abuse with intoxication, uncomplicated; I10 Essential (primary) hypertension; M19.90 Unspecified osteoarthritis, unspecified site; K21.9 Gastro-esophageal reflux disease without esophagitis; G47.33 Obstructive sleep apnea (adult) (pediatric); F32.9 Major depressive disorder, single episode, unspecified; F41.9 Anxiety disorder, unspecified; F17.210 Nicotine dependence, cigarettes, uncomplicated; K29.20 Alcoholic gastritis without bleeding; Y90.3 Blood alcohol level of 60-79 mg/100 ml; Z79.899 Other long term (current) drug therapy; Z87.19 Personal history of other diseases of the digestive system; Z87.01 Personal history of pneumonia (recurrent); Z63.4 Disappearance and death of family member; Z91.14 Patient's other noncompliance with medication regimen; Z90.49 Acquired absence of other specified parts of digestive tract; Z98.890 Other specified postprocedural states; Z86.718 Personal history of other venous thrombosis and embolism; Z88.1 Allergy status to other antibiotic agents; Z88.8 Allergy status to other drugs, medicaments and biological substances; Z80.8 Family history of malignant neoplasm of other organs or systems; Z82.0 Family history of epilepsy and other diseases of the nervous system; Z82.49 Family history of ischemic heart disease and other diseases of the circulatory system; Z82.61 Family history of arthritis
CPT/HCPCS: 36415; 74019; 80048; 80053; 80320; 82150; 83690; 85025; 85610; 85730; 96361; 96372; 96374; 96375; 96376; 99285

== ENCOUNTER 2020-07-04 02:27 | Inpatient (IN) | payer BC, OTHER ==
[2020-07-04] MEDS ORDERED: SODIUM CHLORIDE 0.9% 1,000 ML IV STA (02:53)
--- NOTE | 2020-07-04 02:55 | ED ---
Fall HPI - General Chief Complaint: Fall Stated Complaint: Fall, Head injury Time Seen by Provider: 07/04/20 02:48 Source: patient, EMS, RN notes reviewed, old records reviewed Mode of arrival: EMS - History of Present Illness MD Complaint: fall, other (scalp laceration ETOH) -: hour(s) Fall From: standing, other (in shower) Fall Witnessed: no Place Fall Occurred: home Loss of Consciousness: unsure Prolonged Down Time?: no Symptoms Prior to Fall: none Location: head Severity: moderate Severity scale (1-10): 3 Quality: burning Context: tripped/slipped, alcohol use Associated Symptoms: denies - Related Data Home Medications Medication Instructions Recorded Confirmed Losartan Potassium 50 mg PO DAILY 01/03/19 06/25/20 Pantoprazole Sodium 40 mg PO DAILY 01/03/19 06/25/20 Gabapentin [Neurontin] 600 mg PO TID 03/04/19 06/25/20 Albuterol Inhaler [Ventolin Hfa 1 - 2 puff INHALATION RT-QID PRN 10/11/19 06/25/20 Inhaler] Celecoxib [CeleBREX] 200 mg PO DAILY PRN 10/11/19 06/25/20 Fluticasone Nasal [place] [Flonase 2 spray EA NOSTRIL BID 10/11/19 06/25/20 Nasal [place]] traZODone HCL [Desyrel] 100 mg PO HS 05/14/20 06/25/20 Calcium Carb-Mag Carb-Folic 1 tab PO AC-BID 06/25/20 06/25/20 [Magnebind 400] HYDROcodone/APAP 5-325MG [[place] 1 tab PO Q6H PRN 06/25/20 06/25/20 5-325] Ondansetron Odt [Zofran ODT] 4 mg PO TID PRN 06/25/20 06/25/20 Previous Rx's Medication Instructions Recorded Folic Acid 1 mg PO DAILY #30 tablet 03/29/20 Multivitamins, Thera [Multivitamin 1 tab PO DAILY #30 tablet 03/29/20 (formulary)] Thiamine [Vitamin B-1] 100 mg PO DAILY #30 tablet 03/29/20 cloNIDine HCL [Catapres] 0.1 mg PO TID #90 tab 03/29/20 ALPRAZolam [Xanax] 1 mg PO BID PRN #10 tab 06/15/20 Acamprosate Calcium [Campral] 333 mg PO TID 30 Days #90 tablet. 06/15/20 Allergies Allergy/AdvReac Type Severity Reaction Status Date / Time Cephalosporins Allergy Severe Anaphylaxis Verified 07/04/20 02:37 diphenhydramine HCl Allergy Severe Anaphylaxis Verified 07/04/20 02:37 [From Benadryl] divalproex sodium Allergy Severe Anaphylaxis Verified 07/04/20 02:37 [From Depakote] ceftriaxone [From Rocephin] Allergy Anaphylaxis Verified 07/04/20 02:37 cephalexin [From Keflex] Allergy Anaphylaxis Verified 07/04/20 02:37 lisinopril Allergy Anaphylaxis Verified 07/04/20 02:37 Review of Systems ROS Statement: Those systems with pertinent positive or pertinent negative responses have been documented in the HPI. ROS Other: All systems not noted in ROS Statement are negative. Past Medical History Past Medical History: GERD/Reflux, GI Bleed, Hypertension, Osteoarthritis (OA), Pneumonia, Seizure Disorder, Sleep Apnea/CPAP/BIPAP Additional Past Medical History / Comment(s): Occasional bilateral pedal edema if stands long, arthritis possibly in back/ribs, MILIND without device, ETOH abuse, alcoholic seizures/blackouts/fainting, alcoholic hepatitis, alcoholic gastritis, upper GI bleed, hypomagnesemia, spinal stenosis/herniated disc with surgery, bilateral varicose veins, hemorrhoids History of Any Multi-Drug Resistant Organisms: None Reported Past Surgical History: Appendectomy, Back Surgery, Tonsillectomy Additional Past Surgical History / Comment(s): bilateral discectomy, discectomy L5-S1, EGD Past Anesthesia/Blood Transfusion Reactions: Motion Sickness Past Psychological History: Anxiety, Depression Smoking Status: Current every day smoker Past Alcohol Use History: Abuse, Daily, Heavy Past Drug Use History: Marijuana - Past Family History Father Family Medical History: Cancer, Dementia, Neurologic Disorder Additional Family Medical History / Comment(s): melanoma, parkinsons Mother Family Medical History: Hypertension, Musculoskeletal Disorder, Neurologic Disorder, Osteoarthritis (OA) Additional Family Medical History / Comment(s): Mother of motor neuron disease at the age of 78yrs. General Exam Limitations: no limitations General appearance: appears intoxicated, anxious Head exam: Present: normocephalic, normal inspection. Absent: atraumatic (6 cm head laceration) Eye exam: Present: normal appearance, PERRL, EOMI. Absent: scleral icterus, conjunctival injection, periorbital swelling ENT exam: Present: normal exam, mucous membranes moist Neck exam: Present: normal inspection. Absent: tenderness, meningismus, lymphadenopathy Respiratory exam: Present: normal lung sounds bilaterally. Absent: respiratory distress, wheezes, rales, rhonchi, stridor Cardiovascular Exam: Present: regular rate, normal rhythm, normal heart sounds. Absent: systolic murmur, diastolic murmur, rubs, gallop, clicks GI/Abdominal exam: Present: soft, normal bowel sounds. Absent: distended, tenderness, guarding, rebound, rigid Extremities exam: Present: normal inspection, full ROM, normal capillary refill. Absent: tenderness, pedal edema, joint swelling, calf tenderness Back exam: Present: normal inspection Neurological exam: Present: alert, oriented X3, CN II-XII intact Psychiatric exam: Present: normal affect, normal mood Skin exam: Present: warm, dry, intact, normal color. Absent: rash Course Vital Signs 07/04/20 07/04/20 07/04/20 02:29 03:00 04:00 Temperature 98.1 F Pulse Rate 84 118 H Respiratory 18 18 18 Rate Blood Pressure 140/115 131/81 O2 Sat by Pulse 98 Oximetry 07/04/20 05:11 Temperature 97.8 F Pulse Rate 94 Respiratory 16 Rate Blood Pressure 131/85 O2 Sat by Pulse 99 Oximetry Medical Decision Making - Lab Data Result diagrams: 07/04/20 03:02 07/04/20 03:02 Lab Results 07/04/20 07/04/20 Range/Units 03:02 03:02 WBC 8.5 (3.8-10.6) k/uL RBC 4.63 (4.30-5.90) m/uL Hgb 13.9 (13.0-17.5) gm/dL Hct 43.6 (39.0-53.0) % MCV 94.1 (80.0-100.0) fL MCH 30.1 (25.0-35.0) pg MCHC 32.0 (31.0-37.0) g/dL RDW 14.3 (11.5-15.5) % Plt Count 223 (150-450) k/uL MPV 7.0 Neutrophils % 64 % Lymphocytes % 28 % Monocytes % 5 % Eosinophils % 1 % Basophils % 1 % Neutrophils # 5.4 (1.3-7.7) k/uL Lymphocytes # 2.4 (1.0-4.8) k/uL Monocytes # 0.4 (0-1.0) k/uL Eosinophils # 0.1 (0-0.7) k/uL Basophils # 0.0 (0-0.2) k/uL Sodium 140 (137-145) mmol/L Potassium 4.1 (3.5-5.1) mmol/L Chloride 102 (98-107) mmol/L Carbon Dioxide 26 (22-30) mmol/L Anion Gap 12 mmol/L BUN 11 (9-20) mg/dL Creatinine 0.73 (0.66-1.25) mg/dL Est GFR (CKD-EPI)AfAm >90 (>60 ml/min/1.73 sqM) Est GFR (CKD-EPI)NonAf >90 (>60 ml/min/1.73 sqM) Glucose 88 (74-99) mg/dL Calcium 9.1 (8.4-10.2) mg/dL Phosphorus 2.9 (2.5-4.5) mg/dL Magnesium 1.3 L (1.6-2.3) mg/dL Total Bilirubin 1.0 (0.2-1.3) mg/dL AST 77 H (17-59) U/L ALT 52 H (4-49) U/L Alkaline Phosphatase 55 (38-126) U/L Total Protein 7.6 (6.3-8.2) g/dL Albumin 4.8 (3.5-5.0) g/dL Serum Alcohol 318 H* mg/dL Disposition Clinical Impression: Fall, Alcohol abuse with withdrawal, Alcohol abuse, Alcohol intoxication Disposition: ADMITTED IP TO THIS HOSP Condition: Fair Is patient prescribed a controlled substance at d/c from ED?: No
[2020-07-04 03:21] LABS: Basophils % (A) 1 %; Eosinophils # (A) 0.1 k/uL (0-0.7); Eosinophils % (A) 1 %; HCT 43.6 % (39.0-53.0); HGB 13.9 gm/dL (13.0-17.5); Lymphocytes # (A) 2.4 k/uL (1.0-4.8); Lymphocytes % (A) 28 %; MCH 30.1 pg (25.0-35.0); MCV 94.1 fL (80.0-100.0); Monocytes # (A) 0.4 k/uL (0-1.0); Monocytes % (A) 5 %; Neutrophils # (A) 5.4 k/uL (1.3-7.7); Neutrophils % (A) 64 %; Platelet Count 223 k/uL (150-450); RBC 4.63 m/uL (4.30-5.90); RDW 14.3 % (11.5-15.5); WBC 8.5 k/uL (3.8-10.6)
[2020-07-04 03:30] LABS: ALT 52 U/L (4-49); AST 77 U/L (17-59); African American GFR (CKD) >90 (>60 ml/min/1.73 sqM); Albumin 4.8 g/dL (3.5-5.0); Alkaline Phosphatase 55 U/L (38-126); Anion Gap 12 mmol/L; Blood Urea Nitrogen 11 mg/dL (9-20); Calcium 9.1 mg/dL (8.4-10.2); Carbon Dioxide 26 mmol/L (22-30); Chloride 102 mmol/L (98-107); Glucose 88 mg/dL (74-99); Magnesium 1.3 mg/dL (1.6-2.3); Non-African American GFR(CKD) >90 (>60 ml/min/1.73 sqM); Phosphorus 2.9 mg/dL (2.5-4.5); Potassium 4.1 mmol/L (3.5-5.1); Sodium 140 mmol/L (137-145); Total Protein 7.6 g/dL (6.3-8.2)
--- NOTE | 2020-07-04 03:31 | CT ---
EXAM: CT Head Without Intravenous Contrast CLINICAL HISTORY: fall TECHNIQUE: Axial computed tomography images of the head/brain without intravenous contrast. CTDI is 31.485 mGy and DLP is 811.55 mGy-cm. This CT exam was performed using one or more of the following dose reduction techniques: automated exposure control, adjustment of the mA and/or kV according to patient size, and/or use of iterative reconstruction technique. Coronal and sagittal reconstructions are performed COMPARISON: 03/04/19 FINDINGS: Brain: Unremarkable. No hemorrhage. No significant white matter disease. No edema. Ventricles: Unremarkable. No ventriculomegaly. Bones/joints: Unremarkable. No acute fracture. Soft tissues: Minimal left parietal scalp. Sinuses: Unremarkable as visualized. No acute sinusitis. Mastoid air cells: Unremarkable as visualized. No mastoid effusion. IMPRESSION: Normal head/brain CT. EXAM: CT Cervical Spine Without Intravenous Contrast CLINICAL HISTORY: fall TECHNIQUE: Axial computed tomography images of the cervical spine without intravenous contrast. CTDI is 31.485 mGy and DLP is 811.55 mGy-cm. This CT exam was performed using one or more of the following dose reduction techniques: automated exposure control, adjustment of the mA and/or kV according to patient size, and/or use of iterative reconstruction technique. Coronal and sagittal reconstructions are performed COMPARISON: No relevant prior studies available. FINDINGS: Vertebrae: Unremarkable. No acute fracture. Discs/spinal canal/neural foramina: Moderate degenerative disc disease. Soft tissues: Unremarkable. IMPRESSION: No acute findings
[2020-07-04 04:30] LABS: Alcohol 318 mg/dL
[2020-07-04] MEDS ORDERED: LORazepam 2 MG/ML INJ IV PRN (04:45)
[2020-07-04] MEDS ORDERED: THIAMINE 100 MG/ML 2 ML VIAL IM STA (04:45)
[2020-07-04] MEDS ORDERED: NALOXONE 0.4 MG/ML 1 ML VIAL IV PRN (04:45)
[2020-07-04] MEDS: LORazepam 2 MG/ML INJ IV PRN ×3 (06:08→21:26)
[2020-07-04] MEDS: MORPHINE SULFATE 4 MG/ML SYRINGE IV PRN ×4 (08:10→20:35)
[2020-07-04] MEDS: SODIUM CHLORIDE 0.45% 1,000 ML IV SCH ×2 (08:13→16:39)
[2020-07-04] MEDS: ACETAMINOPHEN TAB 325 MG TAB PO PRN (10:51)
[2020-07-04] MEDS: THIAMINE 100 MG TAB PO SCH (16:39)
--- NOTE | 2020-07-04 23:45 | P.HPIM ---
History of Present Illness H&P Date: 07/04/20 Chief Complaint: Fall Patient is a 45-year-old male with a known history of severe alcohol abuse and recent admission with alcohol intoxication and withdrawal symptoms, anxiet y/depression, hypertension, GI bleed history, obstructive sleep apnea not using CPAP at home alcoholic hepatitis and gastritis and other multiple medical medical problems presents to ER due to alcohol intoxication and fall. Patient had laceration of the mid scalp. Patient had sutures placed in the ER. Currently denies any headache or dizziness. No fever no chills. No chest pain or shortness of. Patient was alcohol intoxicated with alcohol level 318 on admission. And magnesium 1.3 Laboratory data showed sodium 140 potassium 4.1 chloride 102 and BUN 11 and creatinine 0.73 AST 77 ALT 52 Review of Systems Constitutional: Patient denies any fever or chills . No generalized weakness or weight loss. Abdomen: Patient denied nausea vomiting and diarrhea and abdominal pain. Cardiovascular: Patient denies any chest pain or short of breath no palpitations. Respiratory: patient denied any cough or sputum production. No shortness of breath Neurologic: Patient denied any numbness or tingling headache. Musculoskeletal: Patient denies any complaints of joint swelling or deformity. Skin: Negative Psychiatric: Negative Endocrine: No heat or cold intolerance. No recent weight gain. Genitourinary: No dysuria or hematuria. All other 14 point ROS negative except the above Past Medical History Past Medical History: GERD/Reflux, GI Bleed, Hypertension, Osteoarthritis (OA), Pneumonia, Seizure Disorder, Sleep Apnea/CPAP/BIPAP Additional Past Medical History / Comment(s): Occasional bilateral pedal edema if stands long, arthritis possibly in back/ribs, MILIND without device, ETOH abuse, alcoholic seizures/blackouts/fainting, alcoholic hepatitis, alcoholic gastritis, upper GI bleed, hypomagnesemia, spinal stenosis/herniated disc with surgery, bilateral varicose veins, hemorrhoids History of Any Multi-Drug Resistant Organisms: None Reported Past Surgical History: Appendectomy, Back Surgery, Tonsillectomy Additional Past Surgical History / Comment(s): bilateral discectomy, discectomy L5-S1, EGD Past Anesthesia/Blood Transfusion Reactions: Motion Sickness Past Psychological History: Anxiety, Depression Smoking Status: Current every day smoker Past Alcohol Use History: Abuse, Daily, Heavy Past Drug Use History: Marijuana - Past Family History Father Family Medical History: Cancer, Dementia, Neurologic Disorder Additional Family Medical History / Comment(s): melanoma, parkinsons Mother Family Medical History: Hypertension, Musculoskeletal Disorder, Neurologic Disorder, Osteoarthritis (OA) Additional Family Medical History / Comment(s): Mother of motor neuron disease at the age of 78yrs. Medications and Allergies Home Medications Medication Instructions Recorded Confirmed Type Losartan Potassium 50 mg PO DAILY 01/03/19 07/04/20 History Pantoprazole Sodium 40 mg PO DAILY 01/03/19 07/04/20 History Gabapentin [Neurontin] 600 mg PO TID 03/04/19 07/04/20 History Albuterol Inhaler [Ventolin Hfa 1 - 2 puff INHALATION RT-QID PRN 10/11/19 07/04/20 History Inhaler] Celecoxib [CeleBREX] 200 mg PO DAILY PRN 10/11/19 07/04/20 History Fluticasone Nasal [place] [Flonase 2 spray EA NOSTRIL BID 10/11/19 07/04/20 History Nasal [place]] Folic Acid 1 mg PO DAILY #30 tablet 03/29/20 07/04/20 Rx Multivitamins, Thera [Multivitamin 1 tab PO DAILY #30 tablet 03/29/20 07/04/20 Rx (formulary)] Thiamine [Vitamin B-1] 100 mg PO DAILY #30 tablet 03/29/20 07/04/20 Rx cloNIDine HCL [Catapres] 0.1 mg PO TID #90 tab 03/29/20 07/04/20 Rx traZODone HCL [Desyrel] 100 mg PO HS 05/14/20 07/04/20 History ALPRAZolam [Xanax] 1 mg PO BID PRN #10 tab 06/15/20 07/04/20 Rx Acamprosate Calcium [Campral] 333 mg PO TID 30 Days #90 tablet. 06/15/20 07/04/20 Rx Calcium Carb-Mag Carb-Folic 1 tab PO AC-BID 06/25/20 07/04/20 History [Magnebind 400] HYDROcodone/APAP 5-325MG [[place] 1 tab PO Q8H PRN 06/25/20 07/04/20 History 5-325] Ondansetron Odt [Zofran ODT] 4 mg PO TID PRN 06/25/20 07/04/20 History Acetaminophen Tab [Tylenol] 500 mg PO DAILY PRN 07/04/20 07/04/20 History Allergies Allergy/AdvReac Type Severity Reaction Status Date / Time Cephalosporins Allergy Severe Anaphylaxis Verified 07/04/20 09:13 diphenhydramine HCl Allergy Severe Anaphylaxis Verified 07/04/20 09:13 [From Benadryl] divalproex sodium Allergy Severe Anaphylaxis Verified 07/04/20 09:13 [From Depakote] ceftriaxone [From Rocephin] Allergy Anaphylaxis Verified 07/04/20 09:13 cephalexin [From Keflex] Allergy Anaphylaxis Verified 07/04/20 09:13 lisinopril Allergy Anaphylaxis Verified 07/04/20 09:13 Physical Exam Vitals: Vital Signs Temp Pulse Pulse Resp BP BP Pulse Ox 07/04/20 08:00 16 07/04/20 06:04 97.9 F 82 20 144/76 99 07/04/20 05:11 97.8 F 94 16 131/85 99 07/04/20 04:00 118 H 18 07/04/20 03:00 18 131/81 07/04/20 02:29 98.1 F 84 18 140/115 98 Intake and Output 07/03/20 07/04/20 07/04/20 22:59 06:59 14:59 Other: # Voids 0 1 Weight 107.955 kg PHYSICAL EXAMINATION: Patient is lying in the bed comfortably, no acute distress, awake alert and oriented.. HEENT: Normocephalic. Neck is supple. Pupils reactive. Nostrils clear. Oral cavity is moist. Ears reveal no drainage. Laceration over the mid frontal scalp with sutures in place. Neck reveals no JVD, carotid bruits, or thyromegaly. CHEST EXAMINATION: Trachea is central. Symmetrical expansion. Lung llamas clear to auscultation and percussion. CARDIAC: Normal S1, S2 with no gallops. No murmurs ABDOMEN: Soft. Bowel sounds normal. No organomegaly. No abdominal bruits. Extremities: reveal no edema. No clubbing or cyanosis Neurologically awake, alert, oriented x3 with well-coordinated movements. No focal deficits noted Skin: No rash or skin lesions. Psychiatric: Coperative. Nonsuicidal Musculoskeletal: No joint swelling or deformity. Normal range of motion. Results CBC & Chem 7: 07/04/20 03:02 07/04/20 03:02 Labs: Abnormal Lab Results - Last 24 Hours (Table) 07/04/20 Range/Units 03:02 Magnesium 1.3 L (1.6-2.3) mg/dL AST 77 H (17-59) U/L ALT 52 H (4-49) U/L Serum Alcohol 318 H* mg/dL Thrombosis Risk Factor Assmnt - DVT/VTE Prophylaxis DVT/VTE Prophylaxis: Pharmacologic Prophylaxis ordered Assessment and Plan Assessment: S/p fall secondary to alcohol intoxication and laceration over the scalp requiring sutures. Severe alcohol abuse Mild acute alcoholic hepatitis History of multiple admissions with intoxication and withdrawal symptoms Monitor for alcohol withdrawal symptoms History of GI bleed Obstructive sleep apnea not on CPAP Seizure disorder Anxiety/depression Current everyday smoker and marijuana use Acute bereavement due to his father's recently. DVT prophylaxis with heparin subcu Plan: Patient will be continued on IV hydration and replace magnesium. Monitor electrolytes and follow-up closely. Continue to monitor for alcohol withdrawal symptoms. Further recommendations based on clinical course. Continue with vitamin supplementation and thiamine. Time with Patient: Greater than 30
[2020-07-05] MEDS: LORazepam 2 MG/ML INJ IV PRN ×7 (00:11→22:59)
[2020-07-05] MEDS: HEPARIN SODIUM,PORCINE 5,000 UNIT/ML 1 ML VIAL SQ SCH ×4 (00:33→22:59)
[2020-07-05] MEDS: MAGNESIUM SULFATE-D5W PMX 1 GM in DEXTROSE/WATER 1 100ML.BAG IVPB SCH ×4 (00:35→17:21)
[2020-07-05] MEDS: MORPHINE SULFATE 4 MG/ML SYRINGE IV PRN ×6 (00:47→21:52)
[2020-07-05] MEDS: SODIUM CHLORIDE 0.45% 1,000 ML IV SCH ×2 (01:41→19:01)
[2020-07-05] MEDS: THIAMINE 100 MG TAB PO SCH ×2 (07:55→18:15)
[2020-07-05] MEDS: ACETAMINOPHEN TAB 325 MG TAB PO PRN ×2 (08:00→21:53)
[2020-07-05 10:40] LABS: African American GFR (CKD) >90 (>60 ml/min/1.73 sqM); Anion Gap 5 mmol/L; Blood Urea Nitrogen 11 mg/dL (9-20); Calcium 8.5 mg/dL (8.4-10.2); Carbon Dioxide 31 mmol/L (22-30); Chloride 99 mmol/L (98-107); Glucose 102 mg/dL (74-99); Magnesium 1.5 mg/dL (1.6-2.3); Non-African American GFR(CKD) >90 (>60 ml/min/1.73 sqM); Sodium 135 mmol/L (137-145)
[2020-07-05] MEDS ORDERED: Magnesium Replacement Protocol 1 EACH MISC MISCELLANE PRN (14:54)
--- NOTE | 2020-07-05 15:08 | P.PN ---
Subjective Progress Note Date: 07/05/20 Patient is a 45-year-old male with a known history of severe alcohol abuse and recent admission with alcohol intoxication and withdrawal symptoms, anxiety/depression, hypertension, GI bleed history, obstructive sleep apnea not using CPAP at home alcoholic hepatitis and gastritis and other multiple medical medical problems presents to ER due to alcohol intoxication and fall. Patient had laceration of the mid scalp. Patient had sutures placed in the ER. Currently denies any headache or dizziness. No fever no chills. No chest pain or shortness of. Patient was alcohol intoxicated with alcohol level 318 on admission. And magnesium 1.3 Laboratory data showed sodium 140 potassium 4.1 chloride 102 and BUN 11 and creatinine 0.73 AST 77 ALT 52 07/05/2020 Patient is seen and evaluated and follow-up and is maintained on CIWA protocol and continues to require Ativan. Patient states he has been up to the bathroom and denies any dizziness or lightheadedness. Head laceration is dry and intact with carlton noted. Lab this morning have improved, sodium is 135, potassium is 4.0, current creatinine is 0.64 and magnesium slightly improved at 1.5 and will replace and repeat a.m. labs. Patient currently denies any suicidal thoughts or thoughts of harming himself or others. Patient is alert and oriented 3. Review of systems: Constitutional: No reports of fatigue, fever, or chills Cardiovascular: No reports of chest pain or palpitations Respiratory: No reports of shortness of breath or cough GI: No reports of nausea, vomiting, or diarrhea, reports poor appetite : No reports of dysuria or retention Neurovascular: No reports of weakness or numbness, or dizziness All medications have been reviewed Objective - Vital Signs Vital signs: Vital Signs Temp 98.1 F 07/05/20 02:00 Pulse 84 07/05/20 02:00 Resp 15 07/05/20 02:00 BP 134/85 07/05/20 02:00 Pulse Ox 96 07/05/20 02:00 Intake & Output 07/04/20 07/05/20 07/05/20 18:59 06:59 18:59 Intake Total 100 540 Balance 100 540 Intake: Oral 100 540 Other: Voiding Method Toilet # Voids 2 2 - Exam Patient is lying in the bed comfortably, no acute distress, awake alert and oriented.. HEENT: Normocephalic. Neck is supple. Pupils reactive. Nostrils clear. Oral cavity is moist. Ears reveal no drainage. Laceration over the mid frontal scalp with carlton in place that is dry and intact with no active bleeding noted. Neck reveals no JVD, carotid bruits, or thyromegaly. CHEST EXAMINATION: Trachea is central. Symmetrical expansion. Lung llamas clear to auscultation and percussion. CARDIAC: Normal S1, S2 with no gallops. No murmurs ABDOMEN: Soft. Bowel sounds normal. No organomegaly. No abdominal bruits. Extremities: reveal no edema. No clubbing or cyanosis Neurologically awake, alert, oriented x3 with well-coordinated movements. No focal deficits noted Skin: No rash or skin lesions. Psychiatric: Cooperative. Non-suicidal Musculoskeletal: No joint swelling or deformity. Normal range of motion. - Labs CBC & Chem 7: 07/04/20 03:02 07/05/20 10:09 Assessment and Plan Assessment: S/p fall secondary to alcohol intoxication and laceration over the scalp requiring carlton. Severe alcohol abuse Mild acute alcoholic hepatitis History of multiple admissions with intoxication and withdrawal symptoms Monitor for alcohol withdrawal symptoms History of GI bleed Obstructive sleep apnea not on CPAP Seizure disorder Anxiety/depression Current everyday smoker and marijuana use Acute bereavement due to his father's recently. DVT prophylaxis with heparin subcu Plan: Continue with magnesium replacement and will repeat a.m. labs. Patient is eating and drinking and tolerating with no reports of nausea or vomiting noted and will discontinue fluids. Instructed the patient to increase activity as tolerated and sit up out of the bed and in the chair more often. Patient will c ontinue with [facility] protocol and continue to monitor for signs of withdrawal symptoms. Further recommendations to follow based on the clinical course of the patient. Possible discharge in 24-48 hours.
[2020-07-06] MEDS: MORPHINE SULFATE 4 MG/ML SYRINGE IV PRN ×3 (01:54→09:37)
[2020-07-06] MEDS: LORazepam 2 MG/ML INJ IV PRN ×4 (03:32→20:58)
[2020-07-06] MEDS: THIAMINE 100 MG TAB PO SCH ×2 (08:43→18:13)
[2020-07-06] MEDS: HEPARIN SODIUM,PORCINE 5,000 UNIT/ML 1 ML VIAL SQ SCH ×2 (08:43→18:13)
[2020-07-06] MEDS ORDERED: ONDANSETRON ODT 4 MG TAB PO PRN (09:32)
[2020-07-06] MEDS ORDERED: ALBUTEROL NEBULIZED 2.5 MG/3 ML INHALATION PRN (09:32)
[2020-07-06] MEDS: FLUTICASONE 50MCG/SPRAY NASAL 16GM EA NOSTRIL SCH (10:51)
[2020-07-06] MEDS: GABAPENTIN 300 MG CAP PO SCH ×3 (10:51→20:50)
[2020-07-06] MEDS: CALCIUM CARB-MAG CARB-FOLIC 1 EACH TAB PO SCH ×2 (10:52→18:13)
[2020-07-06] MEDS: FOLIC ACID 1 MG TAB PO SCH (10:52)
[2020-07-06] MEDS: LOSARTAN 50 MG TAB PO SCH (10:52)
[2020-07-06] MEDS: PANTOPRAZOLE 40 MG TABLET PO SCH (10:52)
[2020-07-06] MEDS: MULTIVITAMINS, THERA 1 EACH TAB PO SCH (10:52)
[2020-07-06] MEDS: ACAMPROSATE CALCIUM 333 MG TABLET.DR PO SCH ×3 (10:52→20:50)
[2020-07-06] MEDS: HYDROcodone/APAP 5-325MG 1 EACH TAB PO PRN ×3 (14:06→20:49)
[2020-07-06] MEDS: ALPRAZolam 1 MG TAB PO PRN (14:06)
--- NOTE | 2020-07-06 14:12 | P.PN ---
Subjective Progress Note Date: 07/06/20 Patient is a 45-year-old male with a known history of severe alcohol abuse and recent admission with alcohol intoxication and withdrawal symptoms, anxiety/depression, hypertension, GI bleed history, obstructive sleep apnea not using CPAP at home alcoholic hepatitis and gastritis and other multiple medical medical problems presents to ER due to alcohol intoxication and fall. Patient had laceration of the mid scalp. Patient had sutures placed in the ER. Currently denies any headache or dizziness. No fever no chills. No chest pain or shortness of. Patient was alcohol intoxicated with alcohol level 318 on admission. And magnesium 1.3 Laboratory data showed sodium 140 potassium 4.1 chloride 102 and BUN 11 and creatinine 0.73 AST 77 ALT 52 07/05/2020 Patient is seen and evaluated and follow-up and is maintained on CIWA protocol and continues to require Ativan. Patient states he has been up to the bathroom and denies any dizziness or lightheadedness. Head laceration is dry and intact with carlton noted. Lab this morning have improved, sodium is 135, potassium is 4.0, current creatinine is 0.64 and magnesium slightly improved at 1.5 and will replace and repeat a.m. labs. Patient currently denies any suicidal thoughts or thoughts of harming himself or others. Patient is alert and oriented 3. 07/06/2020 Patient is seen in follow-up this morning with no acute overnight issues. Maintained on CIWA protocol and continues to request Ativan. Per nursing staff patient was scoring an 18 on CIWA scale and received a few doses of IV Ativan. Discussed with nursing staff about weaning IV Ativan and his home dose of Xanax was ordered. Patient was also resumed on Campral along with other home medications. Patient has a history of multiple previous hospitalizations for this and continues to request to ask to stay longer. Patient denies any suicidal ideations or thoughts of wanting to harm himself or others. Patient is tolerating diet with no reports of nausea or vomiting. Patient's gait is steady to the bathroom and instructed the patient to get up out of the bed and sit in the chair more often. Social work was consulted to provide resources for alcohol rehab and patient has attempted multiple rehabs previously he states with no success. Patient recently lost his father and states he has been drinking more since the of his father. Magnesium was replaced yesterday and is improved and is currently 1.8. Home medications have been resumed. Will continue to monitor for alcohol withdrawal symptoms. Anticipate discharge tomorrow. Review of systems: Constitutional: No reports of fatigue, fever, or chills Cardiovascular: No reports of chest pain or palpitations Respiratory: No reports of shortness of breath or cough GI: No reports of nausea, vomiting, or diarrhea : No reports of dysuria or retention Neurovascular: No reports of weakness or numbness, or dizziness All medications have been reviewed Objective - Vital Signs Vital signs: Vital Signs Temp 98.4 F 07/06/20 08:00 Pulse 79 07/06/20 08:00 Resp 18 07/06/20 08:00 BP 155/87 07/06/20 08:00 Pulse Ox 99 07/06/20 08:00 Intake & Output 07/05/20 07/06/20 07/06/20 18:59 06:59 18:59 Other: Voiding Method Toilet Toilet Toilet # Voids 3 2 - Exam Patient is sitting up in the bed comfortably, no acute distress, awake alert and oriented.. HEENT: Normocephalic. Neck is supple. Pupils reactive. Nostrils clear. Oral cavity is moist. Ears reveal no drainage. Laceration over the mid frontal scalp with carlton in place that is dry and intact with no active bleeding noted. Neck reveals no JVD, carotid bruits, or thyromegaly. CHEST EXAMINATION: Trachea is central. Symmetrical expansion. Lung llamas clear to auscultation and percussion. CARDIAC: Normal S1, S2 with no gallops. No murmurs ABDOMEN: Soft. Bowel sounds normal. No organomegaly. No abdominal bruits. Extremities: reveal no edema. No clubbing or cyanosis Neurologically awake, alert, oriented x3 with well-coordinated movements. No focal deficits noted Skin: No rash or skin lesions. Psychiatric: Cooperative. Non-suicidal Musculoskeletal: No joint swelling or deformity. Normal range of motion. - Labs CBC & Chem 7: 07/04/20 03:02 07/05/20 10:09 Assessment and Plan Assessment: S/p fall secondary to alcohol intoxication and laceration over the scalp requiring carlton. Severe alcohol abuse Mild acute alcoholic hepatitis History of multiple admissions with intoxication and withdrawal symptoms Monitor for alcohol withdrawal symptoms History of GI bleed Obstructive sleep apnea not on CPAP Seizure disorder Anxiety/depression Current everyday smoker and marijuana use Acute bereavement due to his father's recently. DVT prophylaxis with heparin subcu Plan: Continue with current medications and monitoring for alcohol withdrawal symptoms. Medications have been resumed and instructed nursing staff to continue with CIWA protocol although avoid Ativan if possible as home Xanax has been resumed. Patient continues to request IV Ativan. Patient is eating and drinking and tolerating with no reports of nausea or vomiting noted. Instructed the patient to increase activity as tolerated and sit up out of the bed and in the chair more often. Patient will continue with CIWA protocol and continue to monitor for signs of withdrawal symptoms. Further recommendations to follow based on the clinical course of the patient. Anticipate discharge in 24 hours.
[2020-07-06] MEDS: MELOXICAM 7.5 MG TAB PO PRN (17:22)
[2020-07-07] MEDS: FLUTICASONE 50MCG/SPRAY NASAL 16GM EA NOSTRIL SCH ×3 (00:13→21:24)
[2020-07-07] MEDS: HEPARIN SODIUM,PORCINE 5,000 UNIT/ML 1 ML VIAL SQ SCH ×3 (00:47→16:06)
[2020-07-07] MEDS: LORazepam 2 MG/ML INJ IV PRN ×6 (02:34→21:23)
[2020-07-07] MEDS: MELOXICAM 7.5 MG TAB PO PRN (03:34)
[2020-07-07] MEDS: HYDROcodone/APAP 5-325MG 1 EACH TAB PO PRN ×2 (06:30→18:31)
[2020-07-07] MEDS: LOSARTAN 50 MG TAB PO SCH (09:26)
[2020-07-07] MEDS: THIAMINE 100 MG TAB PO SCH ×2 (09:26→18:31)
[2020-07-07] MEDS: MULTIVITAMINS, THERA 1 EACH TAB PO SCH (09:27)
[2020-07-07] MEDS: PANTOPRAZOLE 40 MG TABLET PO SCH (09:27)
[2020-07-07] MEDS: GABAPENTIN 300 MG CAP PO SCH ×3 (09:27→21:23)
[2020-07-07] MEDS: FOLIC ACID 1 MG TAB PO SCH (09:30)
[2020-07-07] MEDS: CALCIUM CARB-MAG CARB-FOLIC 1 EACH TAB PO SCH ×2 (09:42→18:31)
[2020-07-07] MEDS: ACAMPROSATE CALCIUM 333 MG TABLET.DR PO SCH ×3 (09:42→21:23)
[2020-07-07] MEDS: MORPHINE SULFATE 4 MG/ML SYRINGE IV PRN ×2 (09:43→15:34)
[2020-07-08] MEDS: HEPARIN SODIUM,PORCINE 5,000 UNIT/ML 1 ML VIAL SQ SCH ×2 (00:07→08:41)
[2020-07-08] MEDS: MELOXICAM 7.5 MG TAB PO PRN (00:07)
[2020-07-08] MEDS: ALPRAZolam 1 MG TAB PO PRN (00:18)
[2020-07-08] MEDS: HYDROcodone/APAP 5-325MG 1 EACH TAB PO PRN ×2 (02:15→08:39)
[2020-07-08] MEDS: LORazepam 2 MG/ML INJ IV PRN ×2 (06:32→12:49)
[2020-07-08] MEDS: PANTOPRAZOLE 40 MG TABLET PO SCH (08:40)
[2020-07-08] MEDS: FOLIC ACID 1 MG TAB PO SCH (08:40)
[2020-07-08] MEDS: MULTIVITAMINS, THERA 1 EACH TAB PO SCH (08:40)
[2020-07-08] MEDS: THIAMINE 100 MG TAB PO SCH (08:40)
[2020-07-08] MEDS: LOSARTAN 50 MG TAB PO SCH (08:40)
[2020-07-08] MEDS: GABAPENTIN 300 MG CAP PO SCH (08:40)
[2020-07-08] MEDS: CALCIUM CARB-MAG CARB-FOLIC 1 EACH TAB PO SCH (08:41)
[2020-07-08] MEDS: FLUTICASONE 50MCG/SPRAY NASAL 16GM EA NOSTRIL SCH (08:41)
[2020-07-08] MEDS: ACAMPROSATE CALCIUM 333 MG TABLET.DR PO SCH (08:41)
--- NOTE | 2020-07-08 11:30 | P.PN ---
Subjective Progress Note Date: 07/07/20 07/07/2020 Patient continues to report being shaky and tremulous. Maintained on CIWA protocol and continues to request Ativan. Per nursing staff patient was scoring an 18 on CIWA scale and received a few doses of IV Ativan. Discussed with nursing staff about weaning IV Ativan and his home dose of Xanax was ordered. Patient was also resumed on Campral along with other home medications. Patient has a history of multiple previous hospitalizations for this and continues to request to ask to stay longer. Patient denies any suicidal ideations or thoughts of wanting to harm himself or others. Patient is tolerating diet with no reports of nausea or vomiting. Patient's gait is steady to the bathroom and instructed the patient to get up out of the bed and sit in the chair more often. Social work was consulted to provide resources for alcohol rehab and patient has attempted multiple rehabs previously he states with no success. Patient recently lost his father and states he has been drinking more since the of his father. Magnesium was replaced yesterday and is improved and is currently 1.8. Home medications have been resumed. Will continue to monitor for alcohol withdrawal symptoms. Anticipate discharge tomorrow. Objective - Vital Signs Vital signs: Vital Signs Temp 98.2 F 07/07/20 09:21 Pulse 64 07/07/20 09:21 Resp 18 07/07/20 09:21 BP 122/76 07/07/20 09:21 Pulse Ox 99 07/07/20 09:21 Intake & Output 07/06/20 07/07/20 07/07/20 18:59 06:59 18:59 Intake Total 1090 490 Balance 1090 490 Intake: IV 10 10 Invasive Line 3 10 10 Oral 1080 480 Other: Voiding Method Toilet Toilet Toilet # Voids 3 1 - Exam Patient is sitting up in the bed comfortably, no acute distress, awake alert and oriented.. HEENT: Normocephalic. Neck is supple. Pupils reactive. Nostrils clear. Oral cavity is moist. Ears reveal no drainage. Laceration over the mid frontal scalp with carlton in place that is dry and intact with no active bleeding noted. Neck reveals no JVD, carotid bruits, or thyromegaly. CHEST EXAMINATION: Trachea is central. Symmetrical expansion. Lung llamas clear to auscultation and percussion. CARDIAC: Normal S1, S2 with no gallops. No murmurs ABDOMEN: Soft. Bowel sounds normal. No organomegaly. No abdominal bruits. Extremities: reveal no edema. No clubbing or cyanosis Neurologically awake, alert, oriented x3 with well-coordinated movements. No focal deficits noted Skin: No rash or skin lesions. - Labs CBC & Chem 7: 07/04/20 03:02 07/05/20 10:09 Assessment and Plan Assessment: S/p fall secondary to alcohol intoxication and laceration over the scalp requiring carlton. Severe alcohol abuse Mild acute alcoholic hepatitis History of multiple admissions with intoxication and withdrawal symptoms Monitor for alcohol withdrawal symptoms History of GI bleed Obstructive sleep apnea not on CPAP Seizure disorder Anxiety/depression Current everyday smoker and marijuana use Acute bereavement due to his father's recently. DVT prophylaxis with heparin subcu Plan: Continue with current medications and monitoring for alcohol withdrawal symptoms. Medications have been resumed and instructed nursing staff to continue with CIWA protocol although avoid Ativan if possible as home Xanax has been resumed. Patient continues to request IV Ativan. Patient is eating and drinking and tolerating with no reports of nausea or vomiting noted. Instructed the patient to increase activity as tolerated and sit up out of the bed and in the chair more often. Patient will continue with CIWA protocol and continue to monitor for signs of withdrawal symptoms. Further recommendations to follow based on the clinical course of the patient. Anticipate discharge in 24 hours.
[2020-07-08 12:14] VITALS: BP 133/81; PULSE 78; RESP 18; TEMP 98.3
[2020-07-08] MEDS: ACETAMINOPHEN TAB 325 MG TAB PO PRN (13:00)
== END 2020-07-08 13:10 | disposition home or self-care (01) | DRG 897 ==
LOC: EC 02:27 → 6NMEDSUR 04:45 → OBSVTOIN 12:27
PROVIDERS: ADMIT Hospitalist; ATTEND Hospitalist
PROC: 0HQ0XZZ Repair Scalp Skin, External Approach (ICD-10-PCS; principal; 2020-07-04)
DX: F10.120 Alcohol abuse with intoxication, uncomplicated (principal); F10.130 Alcohol abuse with withdrawal, uncomplicated; K70.10 Alcoholic hepatitis without ascites; G40.909 Epilepsy, unspecified, not intractable, without status epilepticus; S01.01XA Laceration without foreign body of scalp, initial encounter; I10 Essential (primary) hypertension; K21.9 Gastro-esophageal reflux disease without esophagitis; M19.90 Unspecified osteoarthritis, unspecified site; G47.33 Obstructive sleep apnea (adult) (pediatric); I83.90 Asymptomatic varicose veins of unspecified lower extremity; F32.9 Major depressive disorder, single episode, unspecified; F41.9 Anxiety disorder, unspecified; F17.210 Nicotine dependence, cigarettes, uncomplicated; Y90.8 Blood alcohol level of 240 mg/100 ml or more; Z63.4 Disappearance and death of family member; W18.30XA Fall on same level, unspecified, initial encounter; Z79.1 Long term (current) use of non-steroidal anti-inflammatories (NSAID); Z79.899 Other long term (current) drug therapy; Z87.19 Personal history of other diseases of the digestive system; Z87.01 Personal history of pneumonia (recurrent); Z98.890 Other specified postprocedural states; Z90.49 Acquired absence of other specified parts of digestive tract; Z88.1 Allergy status to other antibiotic agents; Z88.8 Allergy status to other drugs, medicaments and biological substances; Z80.8 Family history of malignant neoplasm of other organs or systems; Z82.0 Family history of epilepsy and other diseases of the nervous system; Z82.49 Family history of ischemic heart disease and other diseases of the circulatory system; Z82.61 Family history of arthritis; Z82.69 Family history of other diseases of the musculoskeletal system and connective tissue
CPT/HCPCS: 12002; 36415; 70450; 72125; 80048; 80053; 80320; 83735; 84100; 85025; 96360; 96361; 99285

== ENCOUNTER 2020-07-10 22:19 | Inpatient (IN) | payer BC, OTHER ==
[2020-07-10] MEDS ORDERED: SODIUM CHLORIDE 0.9% 1,000 ML IV ONE (22:50)
[2020-07-10] MEDS ORDERED: LORazepam 2 MG/ML INJ IV STA ×2 (22:50→23:23)
[2020-07-10 22:58] LABS: Basophils # (A) 0.1 k/uL (0-0.2); Basophils % (A) 1 %; Eosinophils # (A) 0.1 k/uL (0-0.7); Eosinophils % (A) 1 %; HCT 42.6 % (39.0-53.0); HGB 14.4 gm/dL (13.0-17.5); Lymphocytes # (A) 1.9 k/uL (1.0-4.8); Lymphocytes % (A) 22 %; MCH 30.8 pg (25.0-35.0); MCHC 33.8 g/dL (31.0-37.0); MCV 91.1 fL (80.0-100.0); Monocytes # (A) 0.5 k/uL (0-1.0); Monocytes % (A) 6 %; Neutrophils # (A) 5.6 k/uL (1.3-7.7); Neutrophils % (A) 67 %; Platelet Count 240 k/uL (150-450); RBC 4.67 m/uL (4.30-5.90); RDW 13.9 % (11.5-15.5); WBC 8.4 k/uL (3.8-10.6)
--- NOTE | 2020-07-10 23:07 | ED ---
Alcohol HPI - General Chief Complaint: Alcohol Stated Complaint: Alcohol Withdraw Time Seen by Provider: 07/10/20 22:30 Source: patient Mode of arrival: ambulatory Limitations: no limitations - History of Present Illness Initial Comments: This patient is a 45-year-old man with history of recent alcohol dependence, who states she had been in the hospital, discharged on Thursday, and then did find a bottle of alcohol at home and drink this. Patient states that he has tried to wean himself after drinking the alcohol and he finds he is getting very shaky and anxious. States history of seizure. MD Complaint: alcohol withdrawal -: hour(s) Previous Visits for Alcohol Intoxication?: Yes Recent Trauma: No Associated Symptoms: nausea, vomiting Treatments Prior to Arrival: none Chronic Alcohol Use: Yes - Related Data Home Medications Medication Instructions Recorded Confirmed Losartan Potassium 50 mg PO DAILY 01/03/19 07/04/20 Pantoprazole Sodium 40 mg PO DAILY 01/03/19 07/04/20 Gabapentin [Neurontin] 600 mg PO TID 03/04/19 07/04/20 Albuterol Inhaler [Ventolin Hfa 1 - 2 puff INHALATION RT-QID PRN 10/11/19 07/04/20 Inhaler] Celecoxib [CeleBREX] 200 mg PO DAILY PRN 10/11/19 07/04/20 Fluticasone Nasal [place] [Flonase 2 spray EA NOSTRIL BID 10/11/19 07/04/20 Nasal [place]] traZODone HCL [Desyrel] 100 mg PO HS 05/14/20 07/04/20 Calcium Carb-Mag Carb-Folic 1 tab PO AC-BID 06/25/20 07/04/20 [[place]bind 400] HYDROcodone/APAP 5-325MG [[place] 1 tab PO Q8H PRN 06/25/20 07/04/20 5-325] Ondansetron Odt [Zofran ODT] 4 mg PO TID PRN 06/25/20 07/04/20 Acetaminophen Tab [Tylenol] 500 mg PO DAILY PRN 07/04/20 07/04/20 Previous Rx's Medication Instructions Recorded Folic Acid 1 mg PO DAILY #30 tablet 03/29/20 Multivitamins, Thera [Multivitamin 1 tab PO DAILY #30 tablet 03/29/20 (formulary)] Thiamine [Vitamin B-1] 100 mg PO DAILY #30 tablet 03/29/20 cloNIDine HCL [Catapres] 0.1 mg PO TID #90 tab 03/29/20 ALPRAZolam [Xanax] 1 mg PO BID PRN #10 tab 06/15/20 Acamprosate Calcium [Campral] 333 mg PO TID 30 Days #90 tablet. 06/15/20 Allergies Allergy/AdvReac Type Severity Reaction Status Date / Time Cephalosporins Allergy Severe Anaphylaxis Verified 07/11/20 07:22 diphenhydramine HCl Allergy Severe Anaphylaxis Verified 07/11/20 07:22 [From Benadryl] divalproex sodium Allergy Severe Anaphylaxis Verified 07/11/20 07:22 [From Depakote] ceftriaxone [From Rocephin] Allergy Anaphylaxis Verified 07/11/20 07:22 cephalexin [From Keflex] Allergy Anaphylaxis Verified 07/11/20 07:22 lisinopril Allergy Anaphylaxis Verified 07/11/20 07:22 Review of Systems ROS Statement: Those systems with pertinent positive or pertinent negative responses have been documented in the HPI. ROS Other: All systems not noted in ROS Statement are negative. Constitutional: Denies: fever, chills, weakness Eyes: Denies: vision change Respiratory: Denies: cough, dyspnea Cardiovascular: Denies: chest pain, palpitations Gastrointestinal: Reports: nausea, vomiting. Denies: abdominal pain Genitourinary: Denies: dysuria, hematuria Musculoskeletal: Denies: back pain Skin: Denies: rash Neurological: Reports: headache. Denies: weakness, numbness Past Medical History Past Medical History: GERD/Reflux, GI Bleed, Hypertension, Osteoarthritis (OA), Pneumonia, Seizure Disorder, Sleep Apnea/CPAP/BIPAP Additional Past Medical History / Comment(s): Occasional bilateral pedal edema if stands long, arthritis possibly in back/ribs, MILIND without device, ETOH abuse, alcoholic seizures/blackouts/fainting, alcoholic hepatitis, alcoholic gastritis, upper GI bleed, hypomagnesemia, spinal stenosis/herniated disc with surgery, bilateral varicose veins, hemorrhoids History of Any Multi-Drug Resistant Organisms: None Reported Past Surgical History: Appendectomy, Back Surgery, Tonsillectomy Additional Past Surgical History / Comment(s): bilateral discectomy, discectomy L5-S1, EGD Past Anesthesia/Blood Transfusion Reactions: Motion Sickness Past Psychological History: Anxiety, Depression Smoking Status: Current every day smoker Past Alcohol Use History: Abuse, Daily, Heavy Past Drug Use History: Marijuana - Past Family History Father Family Medical History: Cancer, Dementia, Neurologic Disorder Additional Family Medical History / Comment(s): melanoma, parkinsons Mother Family Medical History: Hypertension, Musculoskeletal Disorder, Neurologic Disorder, Osteoarthritis (OA) Additional Family Medical History / Comment(s): Mother of motor neuron disease at the age of 78yrs. General Exam Limitations: no limitations General appearance: alert, in no apparent distress, other (Patient is tremulous) Head exam: Present: atraumatic, normocephalic Eye exam: Present: normal appearance. Absent: scleral icterus, conjunctival injection ENT exam: Present: normal oropharynx Neck exam: Present: normal inspection, full ROM Respiratory exam: Present: normal lung sounds bilaterally. Absent: respiratory distress, wheezes, rales, rhonchi, stridor Cardiovascular Exam: Present: normal rhythm, tachycardia, normal heart sounds. Absent: systolic murmur, diastolic murmur, rubs, gallop GI/Abdominal exam: Present: soft. Absent: distended, tenderness, guarding, rebound, rigid, mass Extremities exam: Present: normal inspection, normal capillary refill. Absent: pedal edema, calf tenderness Back exam: Present: normal inspection. Absent: CVA tenderness (R), CVA tenderness (L) Neurological exam: Present: alert Skin exam: Present: warm, dry, intact, normal color, other (There is contusion to left upper arm). Absent: rash Course Vital Signs 07/10/20 07/10/20 07/11/20 22:25 23:27 00:27 Temperature 99.3 F Pulse Rate 118 H 94 94 Respiratory 18 20 18 Rate Blood Pressure 150/83 162/87 162/87 O2 Sat by Pulse 98 99 97 Oximetry 07/11/20 01:10 Temperature 98.4 F Pulse Rate 86 Respiratory 20 Rate Blood Pressure 143/86 O2 Sat by Pulse 96 Oximetry Medical Decision Making - Lab Data Result diagrams: 07/10/20 22:45 07/10/20 22:52 Lab Results 07/10/20 07/10/20 Range/Units 22:45 22:52 WBC 8.4 (3.8-10.6) k/uL RBC 4.67 (4.30-5.90) m/uL Hgb 14.4 (13.0-17.5) gm/dL Hct 42.6 (39.0-53.0) % MCV 91.1 (80.0-100.0) fL MCH 30.8 (25.0-35.0) pg MCHC 33.8 (31.0-37.0) g/dL RDW 13.9 (11.5-15.5) % Plt Count 240 (150-450) k/uL MPV 7.0 Neutrophils % 67 % Lymphocytes % 22 % Monocytes % 6 % Eosinophils % 1 % Basophils % 1 % Neutrophils # 5.6 (1.3-7.7) k/uL Lymphocytes # 1.9 (1.0-4.8) k/uL Monocytes # 0.5 (0-1.0) k/uL Eosinophils # 0.1 (0-0.7) k/uL Basophils # 0.1 (0-0.2) k/uL Sodium 136 L (137-145) mmol/L Potassium 4.5 (3.5-5.1) mmol/L Chloride 98 (98-107) mmol/L Carbon Dioxide 23 (22-30) mmol/L Anion Gap 15 mmol/L BUN 12 (9-20) mg/dL Creatinine 0.75 (0.66-1.25) mg/dL Est GFR (CKD-EPI)AfAm >90 (>60 ml/min/1.73 sqM) Est GFR (CKD-EPI)NonAf >90 (>60 ml/min/1.73 sqM) Glucose 85 (74-99) mg/dL Calcium 9.7 (8.4-10.2) mg/dL Total Bilirubin 1.7 H (0.2-1.3) mg/dL AST 58 (17-59) U/L ALT 36 (4-49) U/L Alkaline Phosphatase 71 (38-126) U/L Total Protein 8.2 (6.3-8.2) g/dL Albumin 5.1 H (3.5-5.0) g/dL Serum Alcohol 16 mg/dL Disposition Clinical Impression: Alcohol withdrawal Disposition: ADMITTED IP TO THIS [facility] Condition: Fair
[2020-07-10 23:08] LABS: ALT 36 U/L (4-49); AST 58 U/L (17-59); African American GFR (CKD) >90 (>60 ml/min/1.73 sqM); Albumin 5.1 g/dL (3.5-5.0); Alcohol 16 mg/dL; Alkaline Phosphatase 71 U/L (38-126); Anion Gap 15 mmol/L; Blood Urea Nitrogen 12 mg/dL (9-20); Calcium 9.7 mg/dL (8.4-10.2); Carbon Dioxide 23 mmol/L (22-30); Chloride 98 mmol/L (98-107); Glucose 85 mg/dL (74-99); Non-African American GFR(CKD) >90 (>60 ml/min/1.73 sqM); Potassium 4.5 mmol/L (3.5-5.1); Sodium 136 mmol/L (137-145); Total Bilirubin 1.7 mg/dL (0.2-1.3); Total Protein 8.2 g/dL (6.3-8.2)
[2020-07-10] MEDS ORDERED: ONDANSETRON 4 MG/2 ML VIAL IVP STA (23:28)
[2020-07-11] MEDS ORDERED: LORazepam 2 MG/ML INJ IV STA (00:23)
[2020-07-11] MEDS ORDERED: LORazepam 2 MG/ML INJ IV PRN ×2 (00:24)
[2020-07-11] MEDS ORDERED: NALOXONE 0.4 MG/ML 1 ML VIAL IV PRN (00:24)
[2020-07-11] MEDS ORDERED: ALBUTEROL HFA INHALER INHALATION PRN (00:27)
[2020-07-11] MEDS: SODIUM CHLORIDE 0.9% 1,000 ML IV SCH ×4 (00:30→23:56)
[2020-07-11] MEDS: LORazepam 2 MG/ML INJ IV PRN ×8 (04:11→22:18)
[2020-07-11] MEDS: CALCIUM CARB-MAG CARB-FOLIC 1 EACH TAB PO SCH ×2 (08:36→17:23)
[2020-07-11] MEDS: GABAPENTIN 300 MG CAP PO SCH ×3 (08:37→22:17)
[2020-07-11] MEDS: LOSARTAN 50 MG TAB PO SCH (08:37)
[2020-07-11] MEDS: PANTOPRAZOLE 40 MG TABLET PO SCH (08:37)
[2020-07-11] MEDS: cloNIDine HCL 0.1 MG TAB PO SCH ×3 (08:37→22:17)
[2020-07-11] MEDS: ACAMPROSATE CALCIUM 333 MG TABLET.DR PO SCH ×3 (08:37→22:17)
[2020-07-11] MEDS: FOLIC ACID 1 MG TAB PO SCH (08:37)
[2020-07-11] MEDS: ACETAMINOPHEN TAB 325 MG TAB PO PRN ×3 (09:29→22:20)
[2020-07-11] MEDS ORDERED: ALPRAZolam 1 MG TAB PO PRN (09:56)
--- NOTE | 2020-07-11 12:43 | P.HPIM ---
History of Present Illness 45-year-old male was admitted for alcohol dependence. Patient discharged recently from the hospital went home and started drinking again. I had extensive discussion with the patient regarding alcohol abuse. Patient is a presently on all call withdrawal precautions. After a lengthy discussion with the patient patient is on agreeable to make an appointment with [facility] for drug rehabilitation or alcohol rehabitation program. If patient doesn't do this patient will be discharged as I do not believe he'll quit alcohol and hospitalization will not be beneficial in that situation Review of Systems REVIEW OF SYSTEMS: CONSTITUTIONAL: No fever, no malaise, no fatigue. HEENT: No recent visual problems or hearing problems. Denied any sore throat. CARDIOVASCULAR: No chest pain, orthopnea, PND, no palpitations, no syncope. PULMONARY: No shortness of breath, no cough, no hemoptysis. GASTROINTESTINAL: No diarrhea, no nausea, no vomiting, no abdominal pain. NEUROLOGICAL: No headaches, no weakness, no numbness. HEMATOLOGICAL: Denies any bleeding or petechiae. GENITOURINARY: Denies any burning micturition, frequency, or urgency. MUSCULOSKELETAL/RHEUMATOLOGICAL: Denies any joint pain, swelling, or any muscle pain. ENDOCRINE: Denies any polyuria or polydipsia. The rest of the 14-point review of systems is negative. Past Medical History Past Medical History: GERD/Reflux, GI Bleed, Hypertension, Osteoarthritis (OA), Pneumonia, Seizure Disorder, Sleep Apnea/CPAP/BIPAP Additional Past Medical History / Comment(s): Occasional bilateral pedal edema if stands long, arthritis possibly in back/ribs, MILIND without device, ETOH abuse, alcoholic seizures/blackouts/fainting, alcoholic hepatitis, alcoholic gastritis, upper GI bleed, hypomagnesemia, spinal stenosis/herniated disc with surgery, bilateral varicose veins, hemorrhoids History of Any Multi-Drug Resistant Organisms: None Reported Past Surgical History: Appendectomy, Back Surgery, Tonsillectomy Additional Past Surgical History / Comment(s): bilateral discectomy, discectomy L5-S1, EGD Past Anesthesia/Blood Transfusion Reactions: Motion Sickness Past Psychological History: Anxiety, Depression Smoking Status: Current every day smoker Past Alcohol Use History: Abuse, Daily, Heavy Past Drug Use History: Marijuana - Past Family History Father Family Medical History: Cancer, Dementia, Neurologic Disorder Additional Family Medical History / Comment(s): melanoma, parkinsons Mother Family Medical History: Hypertension, Musculoskeletal Disorder, Neurologic Disorder, Osteoarthritis (OA) Additional Family Medical History / Comment(s): Mother of motor neuron disease at the age of 78yrs. Medications and Allergies Home Medications Medication Instructions Recorded Confirmed Type Losartan Potassium 50 mg PO DAILY 01/03/19 07/11/20 History Pantoprazole Sodium 40 mg PO DAILY PRN 01/03/19 07/11/20 History Gabapentin [Neurontin] 600 mg PO TID 03/04/19 07/11/20 History Albuterol Inhaler [Ventolin Hfa 1 - 2 puff INHALATION RT-QID PRN 10/11/19 07/11/20 History Inhaler] Celecoxib [CeleBREX] 200 mg PO BID PRN 10/11/19 07/11/20 History Fluticasone Nasal [place] [Flonase 2 spray EA NOSTRIL BID 10/11/19 07/11/20 History Nasal [place]] cloNIDine HCL [Catapres] 0.1 mg PO TID #90 tab 03/29/20 07/11/20 Rx traZODone HCL [Desyrel] 100 mg PO HS 05/14/20 07/11/20 History ALPRAZolam [Xanax] 1 mg PO BID PRN #10 tab 06/15/20 07/11/20 Rx Acamprosate Calcium [Campral] 333 mg PO TID 30 Days #90 tablet. 06/15/20 07/11/20 Rx HYDROcodone/APAP 5-325MG [[place] 1 tab PO Q8H PRN 06/25/20 07/11/20 History 5-325] Acetaminophen Tab [Tylenol] 500 mg PO DAILY PRN 07/04/20 07/11/20 History Allergies Allergy/AdvReac Type Severity Reaction Status Date / Time Cephalosporins Allergy Severe Anaphylaxis Verified 07/11/20 09:48 diphenhydramine HCl Allergy Severe Anaphylaxis Verified 07/11/20 09:48 [From Benadryl] divalproex sodium Allergy Severe Anaphylaxis Verified 07/11/20 09:48 [From Depakote] ceftriaxone [From Rocephin] Allergy Anaphylaxis Verified 07/11/20 09:48 cephalexin [From Keflex] Allergy Anaphylaxis Verified 07/11/20 09:48 lisinopril Allergy Anaphylaxis Verified 07/11/20 09:48 Physical Exam Vitals: Vital Signs Temp Pulse Pulse Resp BP BP Pulse Ox 07/11/20 11:32 98.0 F 75 16 126/75 100 07/11/20 06:17 98.1 F 91 16 102/56 98 07/11/20 01:10 98.4 F 86 20 143/86 96 07/11/20 00:27 94 18 162/87 97 07/10/20 23:27 94 20 162/87 99 07/10/20 22:25 99.3 F 118 H 18 150/83 98 Intake and Output 07/10/20 07/11/20 07/11/20 22:59 06:59 14:59 Intake Total 1000 Balance 1000 Intake: Intake, IV Titration 1000 Amount Sodium Chloride 0.9% 1, 1000 000 ml @ 125 mls/hr IV . Q8H [facility] Rx#:[id number] Other: Weight 122.47 kg 122.47 kg PHYSICAL EXAMINATION: GENERAL: The patient is alert and oriented x3, not in any acute distress. Well developed, well nourished. Patient does have some tremor HEENT: Pupils are round and equally reacting to light. EOMI. No scleral icterus. No conjunctival pallor. Normocephalic, atraumatic. No pharyngeal erythema. No thyromegaly. CARDIOVASCULAR: S1 and S2 present. No murmurs, rubs, or gallops. PULMONARY: Chest is clear to auscultation, no wheezing or crackles. ABDOMEN: Soft, nontender, nondistended, normoactive bowel sounds. No palpable organomegaly. MUSCULOSKELETAL: No joint swelling or deformity. EXTREMITIES: No cyanosis, clubbing, or pedal edema. NEUROLOGICAL: Gross neurological examination did not reveal any focal deficits. SKIN: No rashes. Results CBC & Chem 7: 07/10/20 22:45 07/10/20 22:52 Labs: Abnormal Lab Results - Last 24 Hours (Table) 07/10/20 Range/Units 22:52 Sodium 136 L (137-145) mmol/L Total Bilirubin 1.7 H (0.2-1.3) mg/dL Albumin 5.1 H (3.5-5.0) g/dL Thrombosis Risk Factor Assmnt - Choose All That Apply Any of the Below Risk Factors Present?: No Assessment and Plan Plan: -Alcohol abuse: Patient will be treated for any withdrawals and will be discharged tomorrow to alcohol rehabitation program. Patient will be continued on IV fluids 7 moderate was accommodation -sleep apnea, obesity continue with CPAP machine -Alcoholic gastritis -Hypertension -Depression
[2020-07-11] MEDS: THIAMINE 100 MG TAB PO SCH (17:23)
[2020-07-11] MEDS ORDERED: traZODone HCL 100 MG TAB PO SCH (21:00)
[2020-07-12] MEDS: LORazepam 2 MG/ML INJ IV PRN ×2 (04:25→06:25)
[2020-07-12] MEDS: ACETAMINOPHEN TAB 325 MG TAB PO PRN ×2 (04:29→10:51)
[2020-07-12] MEDS: GABAPENTIN 300 MG CAP PO SCH (08:27)
[2020-07-12] MEDS: LOSARTAN 50 MG TAB PO SCH (08:27)
[2020-07-12] MEDS: FOLIC ACID 1 MG TAB PO SCH (08:27)
[2020-07-12] MEDS: PANTOPRAZOLE 40 MG TABLET PO SCH (08:27)
[2020-07-12] MEDS: THIAMINE 100 MG TAB PO SCH (08:27)
[2020-07-12] MEDS: cloNIDine HCL 0.1 MG TAB PO SCH (08:28)
[2020-07-12] MEDS: ACAMPROSATE CALCIUM 333 MG TABLET.DR PO SCH (08:28)
[2020-07-12] MEDS: CALCIUM CARB-MAG CARB-FOLIC 1 EACH TAB PO SCH (08:29)
[2020-07-12] MEDS: SODIUM CHLORIDE 0.9% 1,000 ML IV SCH (10:00)
[2020-07-12 12:32] VITALS: BP 180/103; PULSE 65; RESP 17; TEMP 98
[2020-07-12] MEDS ORDERED: cloNIDine HCL 0.2 MG TAB PO STA (12:47)
--- NOTE | 2020-07-12 15:18 | P.DS ---
Providers Date of admission: 07/11/20 00:27 Expected date of discharge: 07/12/20 Attending physician: Aida Arias Primary care physician: Veena Tabor Hospital Course: Final diagnosis -Alcohol abuse -sleep apnea, obesity continue with CPAP machine -Alcoholic gastritis -Hypertension -Depression Discharge disposition Patient is being discharged in a stable condition with guarded prognosis to home. Patient will follow-up with Dr. Tbaor in the outpatient setting upon discharge. Patient is scheduled to [facility]. Total time taken is greater than 35 minutes. Hospital course This is a 45-year-old male who was recently admitted with acute alcohol withdrawal and was being closely monitored. Patient was maintained on CIWA protocol. Patient was discussed about rehab and initially was told he could go there today although unable to find a ride and this was discussed with social work. Patient states he does have a ride available via bus from [facility] for this Thursday to [facility] [place] [facility]. Patient continued to request IV Ativan per nursing staff. On exam patient was not displaying any signs of alcohol withdrawal. Patient tolerating diet with no reports of nausea or vomiting and gait was steady. Had a lengthy discussion with the patient about avoiding alcohol upon discharge and strongly encouraging going to the rehab treatment Center on Thursday as he has had multiple hospital admissions most recently for alcohol withdrawal. Patient states he will not be going home to drink alcohol. Currently no reports of chest pain, worsening sh ortness of breath, or palpitations. Patient is afebrile. No reports of nausea or vomiting and patient is tolerating diet. Patient will be discharged home today. Guarded prognosis On exam vital signs are stable. Temp is 98.0F, pulse is 68, respirations are 17, blood pressure is 134/72, oxygen saturation is 99% on room air. Cardio S1, S2 are muffled. Respiratory system shows diminished breath sounds at the bases with no wheezing or rhonchi noted. Abdomen is soft and nontender. Nervous system shows no focal deficits. Please refer to medication reconciliation sheet for a list of medications. Patient Condition at Discharge: Fair Plan - Discharge Summary New Discharge Prescriptions: New Folic Acid 1 mg PO DAILY 30 Days #30 tab Calcium Carb-Mag Carb-Folic [Magnebind 400] 1 each PO AC-BID 30 Days #60 tab Thiamine [Vitamin B-1] 100 mg PO BID-W/MEALS 30 Days #60 tab Continue Pantoprazole Sodium 40 mg PO DAILY PRN PRN Reason: GERD Losartan Potassium 50 mg PO DAILY Gabapentin [Neurontin] 600 mg PO TID Albuterol Inhaler [Ventolin Hfa Inhaler] 1 - 2 puff INHALATION RT-QID PRN PRN Reason: Shortness Of Breath Fluticasone Nasal [place] [Flonase Nasal Onida] 2 spray EA NOSTRIL BID Celecoxib [CeleBREX] 200 mg PO BID PRN PRN Reason: Pain cloNIDine HCL [Catapres] 0.1 mg PO TID #90 tab traZODone HCL [Desyrel] 100 mg PO HS Acamprosate Calcium [Campral] 333 mg PO TID 30 Days #90 tablet. ALPRAZolam [Xanax] 1 mg PO BID PRN #10 tab PRN Reason: Anxiety HYDROcodone/APAP 5-325MG [[place] 5-325] 1 tab PO Q8H PRN PRN Reason: Pain Acetaminophen Tab [Tylenol] 500 mg PO DAILY PRN PRN Reason: Pain Discharge Medication List Losartan Potassium 50 mg PO DAILY 01/03/19 [History] Pantoprazole Sodium 40 mg PO DAILY PRN 01/03/19 [History] Gabapentin [Neurontin] 600 mg PO TID 03/04/19 [History] Albuterol Inhaler [Ventolin Hfa Inhaler] 1 - 2 puff INHALATION RT-QID PRN 10/11/19 [History] Celecoxib [CeleBREX] 200 mg PO BID PRN 10/11/19 [History] Fluticasone Nasal [place] [Flonase Nasal [place]] 2 spray EA NOSTRIL BID 10/11/19 [History] cloNIDine HCL [Catapres] 0.1 mg PO TID #90 tab 03/29/20 [Rx] traZODone HCL [Desyrel] 100 mg PO HS 05/14/20 [History] ALPRAZolam [Xanax] 1 mg PO BID PRN #10 tab 06/15/20 [Rx] Acamprosate Calcium [Campral] 333 mg PO TID 30 Days #90 tablet. 06/15/20 [Rx] HYDROcodone/APAP 5-325MG [[place] 5-325] 1 tab PO Q8H PRN 06/25/20 [History] Acetaminophen Tab [Tylenol] 500 mg PO DAILY PRN 07/04/20 [History] Calcium Carb-Mag Carb-Folic [Magnebind 400] 1 each PO AC-BID 30 Days #60 tab 07/12/20 [Rx] Folic Acid 1 mg PO DAILY 30 Days #30 tab 07/12/20 [Rx] Thiamine [Vitamin B-1] 100 mg PO BID-W/MEALS 30 Days #60 tab 07/12/20 [Rx] Follow up Appointment(s)/Referral(s): Veena Tabor DO [Primary Care Provider] - 1-2 days Patient Instructions/Handouts: Thiamine (By mouth), Folic Acid (By mouth), Antacid, Calcium and Magnesium (By mouth) Activity/Diet/Wound Care/Special Instructions: Activity Limited until follow-up Follow-up with primary care provider upon discharge Regular diet Follow-up with [facility] in [place] and be admitted for rehab this Thursday AVOID DRINKING ALCOHOL Discharge Disposition: HOME SELF-CARE
== END 2020-07-12 15:10 | disposition home or self-care (01) | DRG 897 ==
LOC: EC 22:19 → 5NMEDONC 07-11 00:27
PROVIDERS: ADMIT Hospitalist; ATTEND Hospitalist
DX: F10.239 Alcohol dependence with withdrawal, unspecified (principal); E66.9 Obesity, unspecified; Z68.35 Body mass index [BMI] 35.0-35.9, adult; F17.210 Nicotine dependence, cigarettes, uncomplicated; F32.9 Major depressive disorder, single episode, unspecified; F41.9 Anxiety disorder, unspecified; G40.909 Epilepsy, unspecified, not intractable, without status epilepticus; G47.33 Obstructive sleep apnea (adult) (pediatric); I10 Essential (primary) hypertension; K29.20 Alcoholic gastritis without bleeding; Z79.1 Long term (current) use of non-steroidal anti-inflammatories (NSAID); Z79.899 Other long term (current) drug therapy; Z80.8 Family history of malignant neoplasm of other organs or systems; Z82.0 Family history of epilepsy and other diseases of the nervous system; Z82.49 Family history of ischemic heart disease and other diseases of the circulatory system; Z82.61 Family history of arthritis; Z90.89 Acquired absence of other organs; Z87.01 Personal history of pneumonia (recurrent); M48.00 Spinal stenosis, site unspecified; I83.93 Asymptomatic varicose veins of bilateral lower extremities; S40.022A Contusion of left upper arm, initial encounter; Z88.1 Allergy status to other antibiotic agents; Z88.8 Allergy status to other drugs, medicaments and biological substances
CPT/HCPCS: 36415; 80053; 80320; 85025; 96374; 96375; 96376; 99285

== ENCOUNTER 2020-07-15 16:40 | Inpatient (IN) | payer BC, OTHER ==
[2020-07-15] MEDS ORDERED: THIAMINE 100 MG/ML 2 ML VIAL IM STA (16:57)
[2020-07-15] MEDS ORDERED: LORazepam 2 MG/ML INJ IV PRN ×2 (16:57)
--- NOTE | 2020-07-15 16:59 | ED ---
General Adult HPI - General Chief complaint: Psychiatric Symptoms Stated complaint: Depression Time Seen by Provider: 07/15/20 16:44 Source: EMS Mode of arrival: EMS Limitations: no limitations - History of Present Illness Initial comments: Dictation was produced using [employer] dictation software. please excuse any grammatical, word or spelling errors. This patient was cared for during a federal and state declared state of emergency secondary to Covid 19 Chief Complaint: 45-year-old alcoholic presents with EtOH withdrawal. History of Present Illness: A 45-year-old male he is trying to kick his alcohol jerking habits. Patient states he drinks a fifth of liquor a day. Patient states that recently he wouldn't attempt to try and he admitted to rehab facility. He states that he could've had a went back to drinking. Patient's la st alcoholic intake was earlier today. States she's been admitted to the hospital for withdrawals in the past. Patient's feeling shaky. He reports feeling depressed about his life situation. Denies any homicidal ideation. No visual or auditory hallucinations. The ROS documented in this emergency department record has been reviewed and confirmed by me. Those systems with pertinent positive or negative responses have been documented in the HPI. All other systems are other negative and/or noncontributory. PHYSICAL EXAM: General Impression: Alert and oriented x3, tremulous HEENT: Normocephalic atraumatic, extra-ocular movements intact, pupils equal and reactive to light bilaterally, mucous membranes moist. Cardiovascular: Heart regular rate and rhythm Chest: Able to complete full sentences, no retractions, no tachypnea Abdomen: abdomen soft, non-tender, non-distended, no organomegaly Musculoskeletal: Pulses present and equal in all extremities, no peripheral edema Motor: no focal deficits noted Neurological: CN II-XII grossly intact, no focal motor or sensory deficits noted Skin: Intact with no visualized rashes Psych: Normal affect and mood ED course: 45-year-old male with clinical presentation consistent with alcohol withdrawal. Vital signs upon arrival shows heart rate of 103, respiratory signs within acceptable limits.Laboratory evaluation obtained. CBC remarkable. Metabolic panel shows sodium of 146, magnesium 1.5. Patient has a gap of 19 with no decrease in bicarbonate. This likely alcoholic ketoacidosis. Serum alk phos 257. Chronic viruses negative. Patient reevaluated after administration of some Ativan with improvement of symptomatology. Case is discussed with Dr. Arias who will admit patient. He will be admitted for alcohol withdrawal. EKG interpretation: Ventricular rate 95, normal sinus rhythm, IL 160, QRS 90, QTC 480. No IL prolongation, no QTC prolongation, no ST or T-wave changes noted. EKG compared to 06/13/2020 showing no changes. Overall, this EKG is unremarkable - Related Data Home Medications Medication Instructions Recorded Confirmed Losartan Potassium 50 mg PO DAILY 01/03/19 07/11/20 Pantoprazole Sodium 40 mg PO DAILY PRN 01/03/19 07/11/20 Gabapentin [Neurontin] 600 mg PO TID 03/04/19 07/11/20 Albuterol Inhaler [Ventolin Hfa 1 - 2 puff INHALATION RT-QID PRN 10/11/19 07/11/20 Inhaler] Celecoxib [CeleBREX] 200 mg PO BID PRN 10/11/19 07/11/20 Fluticasone Nasal [place] [Flonase 2 spray EA NOSTRIL BID 10/11/19 07/11/20 Nasal [place]] traZODone HCL [Desyrel] 100 mg PO HS 05/14/20 07/11/20 HYDROcodone/APAP 5-325MG [[place] 1 tab PO Q8H PRN 06/25/20 07/11/20 5-325] Acetaminophen Tab [Tylenol] 500 mg PO DAILY PRN 07/04/20 07/11/20 Previous Rx's Medication Instructions Recorded cloNIDine HCL [Catapres] 0.1 mg PO TID #90 tab 03/29/20 ALPRAZolam [Xanax] 1 mg PO BID PRN #10 tab 06/15/20 Acamprosate Calcium [Campral] 333 mg PO TID 30 Days #90 tablet. 06/15/20 Calcium Carb-Mag Carb-Folic 1 each PO AC-BID 30 Days #60 tab 07/12/20 [Magnebind 400] Folic Acid 1 mg PO DAILY 30 Days #30 tab 07/12/20 Thiamine [Vitamin B-1] 100 mg PO BID-W/MEALS 30 Days #60 07/12/20 tab Allergies Allergy/AdvReac Type Severity Reaction Status Date / Time Cephalosporins Allergy Severe Anaphylaxis Verified 07/11/20 09:48 diphenhydramine HCl Allergy Severe Anaphylaxis Verified 07/11/20 09:48 [From Benadryl] divalproex sodium Allergy Severe Anaphylaxis Verified 07/11/20 09:48 [From Depakote] ceftriaxone [From Rocephin] Allergy Anaphylaxis Verified 07/11/20 09:48 cephalexin [From Keflex] Allergy Anaphylaxis Verified 07/11/20 09:48 lisinopril Allergy Anaphylaxis Verified 07/11/20 09:48 Review of Systems ROS Statement: Those systems with pertinent positive or pertinent negative responses have been documented in the HPI. ROS Other: All systems not noted in ROS Statement are negative. Past Medical History Past Medical History: GERD/Reflux, GI Bleed, Hypertension, Osteoarthritis (OA), Pneumonia, Seizure Disorder, Sleep Apnea/CPAP/BIPAP Additional Past Medical History / Comment(s): Occasional bilateral pedal edema if stands long, arthritis possibly in back/ribs, MILIND without device, ETOH abuse, alcoholic seizures/blackouts/fainting, alcoholic hepatitis, alcoholic gastritis, upper GI bleed, hypomagnesemia, spinal stenosis/herniated disc with surgery, bilateral varicose veins, hemorrhoids History of Any Multi-Drug Resistant Organisms: None Reported Past Surgical History: Appendectomy, Back Surgery, Tonsillectomy Additional Past Surgical History / Comment(s): bilateral discectomy, discectomy L5-S1, EGD Past Anesthesia/Blood Transfusion Reactions: Motion Sickness Past Psychological History: Anxiety, Depression Smoking Status: Current every day smoker Past Alcohol Use History: Abuse, Daily, Heavy Past Drug Use History: Marijuana - Past Family History Father Family Medical History: Cancer, Dementia, Neurologic Disorder Additional Family Medical History / Comment(s): melanoma, parkinsons Mother Family Medical History: Hypertension, Musculoskeletal Disorder, Neurologic Disorder, Osteoarthritis (OA) Additional Family Medical History / Comment(s): Mother of motor neuron disease at the age of 78yrs. General Exam Limitations: no limitations Course Vital Signs 07/15/20 16:44 Temperature 98.1 F Pulse Rate 103 H Respiratory 18 Rate Blood Pressure 161/94 O2 Sat by Pulse 98 Oximetry Medical Decision Making - Lab Data Result diagrams: 07/15/20 17:19 07/15/20 17:19 Lab Results 07/15/20 07/15/20 Range/Units 16:59 16:59 Urine Opiates Screen Not Detected (NotDetected) Ur Oxycodone Screen Not Detected (NotDetected) Urine Methadone Screen Not Detected (NotDetected) Ur Propoxyphene Screen Not Detected (NotDetected) Ur Barbiturates Screen Not Detected (NotDetected) U Tricyclic Antidepress Not Detected (NotDetected) Ur Phencyclidine Scrn Not Detected (NotDetected) Ur Amphetamines Screen Not Detected (NotDetected) U Methamphetamines Scrn Not Detected (NotDetected) U Benzodiazepines Scrn Detected H (NotDetected) Urine Cocaine Screen Not Detected (NotDetected) U Marijuana (THC) Screen Not Detected (NotDetected) Coronavirus (PCR) Not Detected (Not Detectd) Disposition Clinical Impression: Alcohol withdrawal Disposition: ADMITTED IP TO THIS HOSP Condition: Fair Decision Time: 18:13
[2020-07-15] MEDS ORDERED: NALOXONE 0.4 MG/ML 1 ML VIAL IV PRN (17:03)
[2020-07-15 17:40] LABS: Amphetamine Screen,Urine Not Detected (NotDetected); Barbiturate Screen,Urine Not Detected (NotDetected); Benzodiazepines Screen,Urine Detected (NotDetected); Cocaine Screen,Urine Not Detected (NotDetected); Methadone Screen, Urine Not Detected (NotDetected); Opiate Screen,Urine Not Detected (NotDetected); Oxycodone Screen, Urine Not Detected (NotDetected); Phencyclidine Screen,Urine Not Detected (NotDetected); Tricyclic Antidepressant,Urine Not Detected (NotDetected); Urn Cannabinoid Scrn Not Detected (NotDetected)
[2020-07-15] MEDS: SODIUM CHLORIDE 0.9% 1,000 ML IV SCH (17:43)
[2020-07-15] MEDS: THIAMINE 100 MG TAB PO SCH (17:44)
[2020-07-15 17:49] LABS: Basophils # (A) 0.1 k/uL (0-0.2); Basophils % (A) 1 %; Eosinophils % (A) 0 %; HCT 46.2 % (39.0-53.0); HGB 14.9 gm/dL (13.0-17.5); Lymphocytes # (A) 2.6 k/uL (1.0-4.8); Lymphocytes % (A) 33 %; MCH 30.3 pg (25.0-35.0); MCHC 32.3 g/dL (31.0-37.0); MCV 93.8 fL (80.0-100.0); Mean Platelet Volume 6.8; Monocytes # (A) 0.2 k/uL (0-1.0); Monocytes % (A) 3 %; Neutrophils # (A) 4.9 k/uL (1.3-7.7); Neutrophils % (A) 61 %; Platelet Count 337 k/uL (150-450); RBC 4.92 m/uL (4.30-5.90); RDW 14.1 % (11.5-15.5); WBC 8.1 k/uL (3.8-10.6)
[2020-07-15 18:10] LABS: African American GFR (CKD) >90 (>60 ml/min/1.73 sqM); Anion Gap 19 mmol/L; Blood Urea Nitrogen 12 mg/dL (9-20); Calcium 9.2 mg/dL (8.4-10.2); Carbon Dioxide 23 mmol/L (22-30); Chloride 104 mmol/L (98-107); Glucose 82 mg/dL (74-99); Magnesium 1.5 mg/dL (1.6-2.3); Non-African American GFR(CKD) >90 (>60 ml/min/1.73 sqM); Potassium 4.6 mmol/L (3.5-5.1); Sodium 146 mmol/L (137-145)
[2020-07-15 18:12] LABS: Alcohol 257 mg/dL
[2020-07-15] MEDS ORDERED: PANTOPRAZOLE 40 MG TABLET PO PRN (19:33)
[2020-07-15] MEDS ORDERED: HYDROcodone/APAP 5-325MG 1 EACH TAB PO PRN (19:33)
[2020-07-15] MEDS ORDERED: ALBUTEROL NEBULIZED 2.5 MG/3 ML INHALATION PRN (19:33)
[2020-07-15] MEDS ORDERED: Potassium Replacement Protocol 1 EACH MISC MISCELLANE PRN (19:35)
[2020-07-15] MEDS ORDERED: Magnesium Replacement Protocol 1 EACH MISC MISCELLANE PRN (19:35)
[2020-07-15] MEDS: MAGNESIUM SULFATE-D5W PMX 1 GM in DEXTROSE/WATER 1 100ML.BAG IVPB SCH ×2 (19:38→20:50)
--- NOTE | 2020-07-15 20:15 | HP ---
HISTORY AND PHYSICAL DATE OF SERVICE: 07/15/2020. CHIEF COMPLAINT: Alcohol withdrawal and tremors. HISTORY OF PRESENT ILLNESS: This 45-year-old gentleman with a past medical history of multiple medical problems including GERD, hypertension, history of DJD, history of pneumonia, seizure disorder, history of anxiety/ depression being followed by Dr. Bynum in the outpatient setting, had multiple hospital admissions. The patient apparently started drinking again and this stopped a couple days ago. The patient is complaining of significant tremors and withdrawal symptoms. Patient admitted for further evaluation and treatment. Patient apparently was supposed to check in to inpatient alcohol rehab facility on Thursday morning according to him. The initial labs showed hypomagnesemia. Serum alcohol was 257. Covid 19 was negative. There is no history of fever, rigors or chills. No history of headache, loss of consciousness, seizures. PAST MEDICAL HISTORY: History GI bleed, hypertension, DJD, seizure disorder, history of alcohol, DTs. MEDICATIONS: Home medications are: Desyrel, Catapres, thiamine, losartan, [place]. Neurontin, Celebrex, MagneBind and Ventolin. Tylenol, Acamprosate, Xanax. ALLERGIES: CEPHALOSPORINS, BENADRYL.DEPAKOTE, KEFLEX. LISINOPRIL. FAMILY HISTORY: History of dementia, history of melanoma, Parkinson's. SOCIAL HISTORY: History of alcohol, previous history of smoking. REVIEW OF SYSTEMS: ENT: No diminished vision. No diminished hearing. CARDIOVASCULAR: No angina. RESPIRATION: No cough or hemoptysis. GI no nausea or vomiting. : No dysuria. NERVOUS system: No numbness, weakness. ALLERGY/IMMUNOLOGY: No asthma or hayfever. MUSCULOSKELETAL as mentioned earlier. HEMATOLOGY/ONCOLOGY: No history of anemia. ENDOCRINE: No history of diabetes or hypothyroidism. CONSTITUTIONAL: As mentioned earlier. DERMATOLOGY: Negative. RHEUMATOLOGY: Negative. PSYCHIATRIC: As mentioned earlier. PHYSICAL EXAMINATION: The patient is alert and oriented times three. Pulse 103. Blood pressure 160/90, respiration 18, temperature 98.1, pulse ox 98% on room air. HEENT: Conjunctivae normal. NECK: No JVD. RESPIRATORY SYSTEM: Breath sounds diminished at the bases. No rhonchi. No crackles. ABDOMEN: Soft, nontender. No mass palpable. LEGS: No edema. No swelling. NERVOUS SYSTEM: Higher functions as mentioned earlier. Moves all 4 limbs. Diffuse mild tremors present. Gait is unsteady. SKIN: No ulcer, rash or bleeding. JOINTS: No active deformity arthropathy. LYMPHATICS: No lymph nodes palpable in the neck, axilla or groin. LABS: CBC within normal limits. Sodium 146, magnesium 1.5. ASSESSMENT: 1. Acute alcohol withdrawal symptoms and acute delirium tremens. 2. Hypomagnesemia. 3. Hypernatremia. 4. History of gastroesophageal reflux disease. 5. History of ETOH. 6. History of gastrointestinal bleed. 7. Hypertension. 8. History of degenerative joint disease. 9. History of pneumonia. 10.History of seizure disorder. 11.History of sleep apnea. 12.History of alcoholic hepatitis and gastritis. 13.Hypomagnesemia. 14.History of spinal stenosis. 15.History of back surgery. 16.History of anxiety, depression. 17.History of nicotine dependence. 18.FULL CODE. RECOMMENDATIONS AND DISCUSSION: In this 45-year-old gentleman who presented with multiple complex medical issues, we will monitor the patient closely, continue the current medications, management and symptomatic treatment. Otherwise, at this time, [facility] protocol and resume the home medications. Monitor closely. Prognosis is guarded and I would also recommend supportive employment case manager and socially responsible investment adviser to follow so the patient can attend Thursday inpatient alcohol rehab once the patient is improved. Further recommendations to follow. A copy of this dictation being forwarded to Dr. Bynum, who is the primary physician. MMGO / MOISESN: [id number] /
[2020-07-15] MEDS: FLUTICASONE 50MCG/SPRAY NASAL 16GM EA NOSTRIL SCH (20:49)
[2020-07-15] MEDS: GABAPENTIN 300 MG CAP PO SCH (20:49)
[2020-07-15] MEDS: ACETAMINOPHEN TAB 500 MG TAB PO PRN (20:49)
[2020-07-15] MEDS: traZODone HCL 100 MG TAB PO SCH (20:49)
[2020-07-15] MEDS: LORazepam 2 MG/ML INJ IV PRN ×2 (20:50→23:53)
[2020-07-15] MEDS: cloNIDine HCL 0.1 MG TAB PO SCH (20:50)
[2020-07-16] MEDS: LORazepam 2 MG/ML INJ IV PRN ×8 (02:37→20:00)
[2020-07-16 06:04] LABS: Basophils % (A) 1 %; Eosinophils # (A) 0.1 k/uL (0-0.7); Eosinophils % (A) 1 %; HCT 37.3 % (39.0-53.0); HGB 12.5 gm/dL (13.0-17.5); Lymphocytes # (A) 2.9 k/uL (1.0-4.8); Lymphocytes % (A) 39 %; MCH 30.9 pg (25.0-35.0); MCHC 33.6 g/dL (31.0-37.0); MCV 92.1 fL (80.0-100.0); Mean Platelet Volume 6.9; Monocytes # (A) 0.5 k/uL (0-1.0); Monocytes % (A) 6 %; Neutrophils # (A) 3.9 k/uL (1.3-7.7); Neutrophils % (A) 52 %; Platelet Count 245 k/uL (150-450); RBC 4.05 m/uL (4.30-5.90); RDW 13.7 % (11.5-15.5); WBC 7.4 k/uL (3.8-10.6)
[2020-07-16] MEDS: MELOXICAM 7.5 MG TAB PO PRN ×2 (06:17→21:17)
[2020-07-16] MEDS: FLUTICASONE 50MCG/SPRAY NASAL 16GM EA NOSTRIL SCH ×2 (08:10→21:19)
[2020-07-16] MEDS: CALCIUM CARB-MAG CARB-FOLIC 1 EACH TAB PO SCH ×2 (08:10→17:07)
[2020-07-16] MEDS: cloNIDine HCL 0.1 MG TAB PO SCH ×3 (08:10→21:18)
[2020-07-16] MEDS: GABAPENTIN 300 MG CAP PO SCH ×3 (08:10→21:17)
[2020-07-16] MEDS: FOLIC ACID 1 MG TAB PO SCH (08:10)
[2020-07-16] MEDS: THIAMINE 100 MG TAB PO SCH ×2 (08:10→17:06)
[2020-07-16] MEDS: LOSARTAN 50 MG TAB PO SCH (08:10)
[2020-07-16 08:41] LABS: African American GFR (CKD) 130.2 (60.0-200.0); Anion Gap 9.2 mmol/L (4.00-12.00); BUN/Creat Ratio 18.57 Ratio (12.00-20.00); Calcium 8.6 mg/dL (8.7-10.3); Carbon Dioxide 27.8 mmol/L (21.6-31.8); Magnesium 1.6 mg/dL (1.5-2.4); Non-African American GFR(CKD) 112.4 (60.0-200.0); Potassium 4.3 mmol/L (3.5-5.5)
[2020-07-16] MEDS: ACETAMINOPHEN TAB 500 MG TAB PO PRN (12:38)
--- NOTE | 2020-07-16 13:39 | P.CN ---
Psychiatric Consult - . Consult date: 07/16/20 Consult:: IDENTIFYING DATA: This patient is a single, employed, 44-year-old male was admitted for alcohol withdrawal. REASON FOR CONSULT: Suicidal HISTORY OF PRESENT ILLNESS: The patient presented to the hospital on 07/15/2020 with a chief complaint of alcohol withdrawal. The patient reports that it is difficult for him to quit alcohol and that he has signed up for rehabilitation and will be going this Thursday. He does endorse significant symptoms of depression and anxiety which he attributes to the recent of his father. Despite this, the patient is vehemently denying any suicidal or homicidal ideation, intention, and/or plan. The patient reports that he has difficulty sleeping but is not reporting any hopelessness, helplessness, or anhedonia. The patient reports that he has signed up to go to [facility] this Thursday and the transportation would take from [facility] to there. He is expressing a strong desire to go home prior to this so that he may get his belongings. When presented with the option for inpatient psychiatric admission, the patient denies the need. He is currently not endorsing any auditory or visual hallucinations. He denies any paranoia or delusions. He reported drinking yesterday and has been drinking a fifth of liquor daily. He reports quitting tobacco this past May. He denies any other drug use. PAST PSYCHIATRIC HISTORY: Patient has a a history of depression and a long history of alcohol use disorder. He has had previous trials of medications including gabapentin, Vistaril, and xanax. He is currently on gabapentin, clonidine, and trazodone. He has had 1 previous psychiatric hospitalization on [facility] in 2017 for worsening depression and suicidal ideation. He currently denies any outpatient psychiatric follow-up. He denies any prior attempts at suicide. PAST MEDICAL HISTORY: GERD, hypertension, arthritis, pneumonia, seizure disorder, sleep apnea. ALLERGIES: Cephalosporins, diphenhydramine, Depakote, Rocephin, Keflex, lisinopril CHEMICAL DEPENDENCY HISTORY: Patient reports quitting tobacco this past May. Patient was drinking up to a fifth and a half of liquor per day. Last drink was yesterday. He also has used marijuana in the past. He denies any illicit drug use. FAMILY PSYCHIATRIC/SUBSTANCE USE HISTORY: Patient reports that his father was diagnosed with schizophrenia. SOCIAL HISTORY: Patient was born and raised in [place], [place]. He currently lives alone with his pet fish. He is 1 of 4 children. His eldest brother at the age of 11 after being hit by a bus. 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 His father recently on 06/15/20. MENTAL STATUS EXAM: General Appearance: Patient appears to be stated age is alert, pleasant, and cooperative. Patient appears to have fair hygiene and grooming wearing hospital gown with fair eye contact. Dressed in a hospital gown. Behavior: Patient is calmly lying in bed without any agitated behavior. Normal psychomotor activity. Speech: Patient's speech is fluent and nonpressured. Mood/Affect: Patient reports their mood is "doing okay", affect is congruent and constricted in range. Suicidality/Homicidality: Patient denies having any suicidal or homicidal ideation intent or plan. Perceptions: Patient denies any visual hallucinations and denies any auditory hallucinations Though content/process: There is no evidence of any delusional thought content and thought process is linear and goal-directed. Memory and concentration: AOX3, grossly intact for the purposes of this session. 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 Patient is future-oriented and reports he has an intake appointment with [facility] for Alcohol rehabilitation this Thursday. Patient was offered the option for voluntary admission but is declining at this time. -Delirium precautions recommended with patient including - avoiding use of narcotics and RAILROAD REPAIRER sedatives, limit anticholinergic medications when possible, frequent re-orientation, minimize use of restraints, open window shades during the day and close them at night -Would recommend the following medication changes/additions: No changes at this time. Continue trazodone 100 mg by mouth at bedtime Continue gabapentin 600 mg by mouth 3 times daily -Discontinue 1:1 sitter -Psychiatry will sign off at this point, please contact with any questions. 07/16/20 13:25
--- NOTE | 2020-07-16 16:34 | PN ---
PROGRESS NOTE DATE OF SERVICE: 07/16/2020 This 45 -year-old gentleman who was admitted with acute alcohol withdrawal symptoms and acute delirium tremens being closely monitored. No chest pain. No palpitation. The patient has significant tremors. Patient is on CIWA protocol and Ativan. On exam, alert and oriented times three. Pulse 85, blood pressure 131/72, respiration 17, temperature 98.8, pulse ox 97 percent room air. HEENT: Conjunctivae normal. NECK: No JVD. CARDIOVASCULAR: S1, S2. RESPIRATORY: Breath sounds diminished in the bases. Scattered rhonchi. No crackles. ABDOMEN: Soft, nontender. NERVOUS SYSTEM: No focal deficits. LABS: WBC 7.2, hemoglobin 12.5. Alcohol noted. ASSESSMENT: 1. Acute alcohol withdrawal syndrome and acute delirium tremens. 2. Acute alcohol intoxication. 3. Hypomagnesemia. 4. Hypernatremia. 5. History of gastroesophageal reflux disease. 6. History of ETOH. 7. History of gastrointestinal bleed. 8. Hypertension. 9. History of degenerative joint disease. 10.History of pneumonia. 11.History of seizure disorder. 12.History of sleep apnea. 13.History of alcoholic hepatitis/gastritis. 14.History of spinal stenosis. 15.History of back surgery. 16.History of anxiety, depression. 17.History of nicotine dependence. 18.FULL CODE. RECOMMENDATIONS AND DISCUSSION: I recommend to continue current medications, continue to monitoring, symptomatic treatment. Otherwise, at this time, the magnesium is improved. Otherwise, I would add oral magnesium also and continue with CIWA protocol. Please note that the patient has a rehab appointment on Thursday morning through [facility]. MMMONYL / IJN: [id number] /
[2020-07-16] MEDS: MAGNESIUM OXIDE 400 MG TAB PO SCH ×2 (17:07→21:17)
[2020-07-16] MEDS: SODIUM CHLORIDE 0.9% 1,000 ML IV SCH ×3 (19:01→20:00)
[2020-07-16] MEDS: traZODone HCL 100 MG TAB PO SCH (21:18)
[2020-07-17] MEDS: LORazepam 2 MG/ML INJ IV PRN ×4 (02:06→10:33)
[2020-07-17] MEDS: ACETAMINOPHEN TAB 500 MG TAB PO PRN (06:02)
[2020-07-17 07:45] VITALS: BP 154/85; PULSE 54; RESP 17; TEMP 98.5
[2020-07-17] MEDS: cloNIDine HCL 0.1 MG TAB PO SCH (08:20)
[2020-07-17] MEDS: CALCIUM CARB-MAG CARB-FOLIC 1 EACH TAB PO SCH (08:20)
[2020-07-17] MEDS: THIAMINE 100 MG TAB PO SCH (08:20)
[2020-07-17] MEDS: LOSARTAN 50 MG TAB PO SCH (08:20)
[2020-07-17] MEDS: FOLIC ACID 1 MG TAB PO SCH (08:20)
[2020-07-17] MEDS: GABAPENTIN 300 MG CAP PO SCH (08:20)
[2020-07-17] MEDS: MAGNESIUM OXIDE 400 MG TAB PO SCH (08:20)
[2020-07-17 09:17] LABS: Basophils # (A) 0.03 X 10*3/uL (0.00-0.10); Basophils % (A) 0.5 %; Eosinophils # (A) 0.06 X 10*3/uL (0.04-0.35); Eosinophils % (A) 1.1 %; HCT 36.6 % (39.6-50.0); HGB 11.8 g/dL (13.0-17.0); Lymphocytes # (A) 2.77 X 10*3/uL (0.90-5.00); Lymphocytes % (A) 49.9 %; MCH 30.6 pg (27.0-32.0); MCHC 32.2 g/dL (32.0-37.0); MCV 94.8 fL (80.0-97.0); Mean Platelet Volume 10.1 fL (9.5-12.2); Monocytes # (A) 0.44 X 10*3/uL (0.20-1.00); Monocytes % (A) 7.9 %; Neutrophils # (A) 2.24 X 10*3/uL (1.80-7.70); Neutrophils % (A) 40.4 %; Platelet Count 186 X 10*3/uL (140-440); RBC 3.86 X 10*6/uL (4.40-5.60); RDW 13.5 % (11.5-14.5); WBC 5.55 X 10*3/uL (4.50-10.00)
[2020-07-17] MEDS: FLUTICASONE 50MCG/SPRAY NASAL 16GM EA NOSTRIL SCH (09:27)
[2020-07-17 09:44] LABS: African American GFR (CKD) 130.2 (60.0-200.0); Anion Gap 6.9 mmol/L (4.00-12.00); BUN/Creat Ratio 17.14 Ratio (12.00-20.00); Calcium 8.8 mg/dL (8.7-10.3); Carbon Dioxide 29.1 mmol/L (21.6-31.8); Non-African American GFR(CKD) 112.4 (60.0-200.0); Potassium 4.7 mmol/L (3.5-5.5)
[2020-07-17] MEDS: MELOXICAM 7.5 MG TAB PO PRN (10:40)
[2020-07-17] MEDS ORDERED: ALPRAZolam 1 MG TAB PO PRN (10:44)
--- NOTE | 2020-07-17 14:15 | P.DS ---
Providers Date of admission: 07/15/20 17:03 Expected date of discharge: 07/17/20 Attending physician: Aida Arias Consults: 07/15/20 16:59 Consult Physician Routine Consulting Provider: Roni Gasca Reason/Comments: suicidal Do you want consulting provider notified?: Already Contacted Primary care physician: Veena Tabor Hospital Course: Final diagnosis Acute alcohol withdrawal syndrome and acute delirium tremens Acute alcohol intoxication Hypomagnesemia Hypernatremia History of gastroesophageal reflux disease History of EtOH history of gastrointestinal bleed Hypertension History of degenerative joint disease History of pneumonia history of seizure disorder History of sleep apnea History of alcoholic hepatitis/gastritis History of spinal stenosis History of back surgery History of anxiety/depression History of nicotine dependence Full code Discharge disposition Patient is being discharged in a stable condition with guarded prognosis to home. Patient will follow-up with Dr. Tabor in the outpatient setting upon discharge. Patient is scheduled with [facility] tomorrow for rehab. Total time taken is greater than 35 minutes. Hospital course This is a 45-year-old male who was recently admitted with acute alcohol withdrawal symptoms acute delirium tremens and was being closely monitored. Patient was maintained on CIWA protocol. Patient was found to be intoxicated upon admission. Patient has had multiple hospitalizations for this and has made appointments with [facility] in [place] and has an appointment this Thursday through [facility] to go to rehab. Discussed with the patient at length about avoiding alcohol and keeping appointment for rehab tomorrow. Patient was provided a prescription for oral Ativan and instructed to avoid alcohol intake. Currently no reports of chest pain, shortness of breath, or palpitations. Patient is afebrile. No reports of nausea or vomiting and patient is tolerating diet. Patient will be discharged home today. Guarded prognosis. On exam vital signs are stable. Temp is 98.5F, pulse is 54, respirations are 17, blood pressure is 154/85, oxygen saturation is 98% on room air. Cardio S1, S2 are muffled. Respiratory system shows diminished breath sounds at the bases with no wheezing or rhonchi noted. Abdomen is soft and nontender. Nervous s ystem shows no focal deficits. Please refer to medication reconciliation sheet for a list of medications. Patient Condition at Discharge: Fair Plan - Discharge Summary Discharge Rx Participant: No New Discharge Prescriptions: New LORazepam [Ativan] 1 mg PO TID 3 Days #9 tab Magnesium Oxide [Mag-Ox] 400 mg PO TID 30 Days #90 tab Continue Pantoprazole Sodium 40 mg PO DAILY PRN PRN Reason: GERD Losartan Potassium 50 mg PO DAILY Gabapentin [Neurontin] 600 mg PO TID Albuterol Inhaler [Ventolin Hfa Inhaler] 1 - 2 puff INHALATION RT-QID PRN PRN Reason: Shortness Of Breath Fluticasone Nasal [place] [Flonase Nasal [place]] 2 spray EA NOSTRIL BID Celecoxib [CeleBREX] 200 mg PO BID PRN PRN Reason: Pain cloNIDine HCL [Catapres] 0.1 mg PO TID #90 tab traZODone HCL [Desyrel] 100 mg PO HS Acamprosate Calcium [Campral] 333 mg PO TID 30 Days #90 tablet. ALPRAZolam [Xanax] 1 mg PO BID PRN #10 tab PRN Reason: Anxiety HYDROcodone/APAP 5-325MG [[place] 5-325] 1 tab PO Q8H PRN PRN Reason: Pain Acetaminophen Tab [Tylenol] 500 mg PO DAILY PRN PRN Reason: Pain Folic Acid 1 mg PO DAILY 30 Days #30 tab Calcium Carb-Mag Carb-Folic [Magnebind 400] 1 each PO AC-BID 30 Days #60 tab Thiamine [Vitamin B-1] 100 mg PO BID-W/MEALS 30 Days #60 tab Discharge Medication List Losartan Potassium 50 mg PO DAILY 01/03/19 [History] Pantoprazole Sodium 40 mg PO DAILY PRN 01/03/19 [History] Gabapentin [Neurontin] 600 mg PO TID 03/04/19 [History] Albuterol Inhaler [Ventolin Hfa Inhaler] 1 - 2 puff INHALATION RT-QID PRN 10/11/19 [History] Celecoxib [CeleBREX] 200 mg PO BID PRN 10/11/19 [History] Fluticasone Nasal [place] [Flonase Nasal [place]] 2 spray EA NOSTRIL BID 10/11/19 [History] cloNIDine HCL [Catapres] 0.1 mg PO TID #90 tab 03/29/20 [Rx] traZODone HCL [Desyrel] 100 mg PO HS 05/14/20 [History] ALPRAZolam [Xanax] 1 mg PO BID PRN #10 tab 06/15/20 [Rx] Acamprosate Calcium [Campral] 333 mg PO TID 30 Days #90 frank. 06/15/20 [Rx] HYDROcodone/APAP 5-325MG [[place] 5-325] 1 tab PO Q8H PRN 06/25/20 [History] Acetaminophen Tab [Tylenol] 500 mg PO DAILY PRN 07/04/20 [History] Calcium Carb-Mag Carb-Folic [Magnebind 400] 1 each PO AC-BID 30 Days #60 tab 07/12/20 [Rx] Folic Acid 1 mg PO DAILY 30 Days #30 tab 07/12/20 [Rx] Thiamine [Vitamin B-1] 100 mg PO BID-W/MEALS 30 Days #60 tab 07/12/20 [Rx] LORazepam [Ativan] 1 mg PO TID 3 Days #9 tab 07/17/20 [Rx] Magnesium Oxide [Mag-Ox] 400 mg PO TID 30 Days #90 tab 07/17/20 [Rx] Follow up Appointment(s)/Referral(s): Veena Tabor DO [Primary Care Provider] - 1-2 days (office not answering. Please call to make appointment ) Patient Instructions/Handouts: Alcohol Withdrawal (DC) Activity/Diet/Wound Care/Special Instructions: activity Limited until follow-up Please keep appointment for [facility] center this thursday folow up with pcp upon discharge avoid alcohol Discharge Disposition: HOME SELF-CARE
== END 2020-07-17 15:19 | disposition home or self-care (01) | DRG 897 ==
LOC: EC 16:40 → 4SSUR 17:03
PROVIDERS: ADMIT Hospitalist; ATTEND Hospitalist
DX: F10.231 Alcohol dependence with withdrawal delirium (principal); E87.2 Acidosis; E87.0 Hyperosmolality and hypernatremia; E83.42 Hypomagnesemia; F17.200 Nicotine dependence, unspecified, uncomplicated; F32.9 Major depressive disorder, single episode, unspecified; G40.909 Epilepsy, unspecified, not intractable, without status epilepticus; Z20.822 Contact with and (suspected) exposure to COVID-19; I10 Essential (primary) hypertension; M19.90 Unspecified osteoarthritis, unspecified site; G47.30 Sleep apnea, unspecified; F41.9 Anxiety disorder, unspecified; K21.9 Gastro-esophageal reflux disease without esophagitis; Z79.1 Long term (current) use of non-steroidal anti-inflammatories (NSAID); Z80.8 Family history of malignant neoplasm of other organs or systems; Z82.0 Family history of epilepsy and other diseases of the nervous system; Z82.49 Family history of ischemic heart disease and other diseases of the circulatory system; Z87.01 Personal history of pneumonia (recurrent); Z88.1 Allergy status to other antibiotic agents; Z88.8 Allergy status to other drugs, medicaments and biological substances; Z90.89 Acquired absence of other organs; Z90.49 Acquired absence of other specified parts of digestive tract
CPT/HCPCS: 36415; 80048; 80306; 80320; 82075; 83735; 85025; 87635; 93005; 96361; 96372; 96374; 99285

== ENCOUNTER 2020-08-29 08:09 | Emergency (ER) | payer BC, OTHER ==
[2020-08-29 08:15] VITALS: TEMP 98
[2020-08-29] MEDS ORDERED: PANTOPRAZOLE 40 MG/10 ML VIAL IVP STA (08:16)
[2020-08-29] MEDS ORDERED: ONDANSETRON 4 MG/2 ML VIAL IVP STA (08:16)
[2020-08-29] MEDS ORDERED: SODIUM CHLORIDE 0.9% 2,000 ML IV STA (08:16)
[2020-08-29] MEDS ORDERED: THIAMINE 100 MG/ML 2 ML VIAL IM STA (08:17)
--- NOTE | 2020-08-29 08:27 | ED ---
Alcohol HPI - General Chief Complaint: Alcohol Stated Complaint: ETOH Time Seen by Provider: 08/29/20 08:11 Source: patient, EMS, RN notes reviewed Mode of arrival: EMS Limitations: no limitations - History of Present Illness Initial Comments: This a 45-year-old male presents emergency Department chief complaint of alcohol withdrawal. Patient is well-known emergency department has had multiple admissions for similar complaints. Patient states that he went to rehab for 3 weeks was discharged presented of July. Patient states he started drinking again. Patient states she's been throwing up last day or so. He states he has not drank since yesterday. Patient has been suicidal homicidal no chest pain or shortness breath. Patient states his some epigastric pain from throwing up. He thought he noticed some specks of blood but no cesar hematemesis or coffee- ground emesis. No melena hematochezia. - Related Data Home Medications Medication Instructions Recorded Confirmed Losartan Potassium 50 mg PO DAILY 01/03/19 08/29/20 Pantoprazole Sodium 40 mg PO DAILY PRN 01/03/19 08/29/20 Gabapentin [Neurontin] 600 mg PO TID 03/04/19 08/29/20 Albuterol Inhaler [Ventolin Hfa 1 - 2 puff INHALATION RT-QID PRN 10/11/19 08/29/20 Inhaler] Celecoxib [CeleBREX] 200 mg PO BID PRN 10/11/19 08/29/20 Fluticasone Nasal [place] [Flonase 2 spray EA NOSTRIL BID 10/11/19 08/29/20 Nasal [place]] traZODone HCL [Desyrel] 100 mg PO HS 05/14/20 08/29/20 HYDROcodone/APAP 5-325MG [[place] 1 tab PO Q8H PRN 06/25/20 08/29/20 5-325] Acetaminophen Tab [Tylenol] 500 mg PO DAILY PRN 07/04/20 08/29/20 Calcium Carb-Mag Carb-Folic 1 tab PO AC-BID 08/29/20 08/29/20 [Magnebind 400] Previous Rx's Medication Instructions Recorded cloNIDine HCL [Catapres] 0.1 mg PO TID #90 tab 03/29/20 ALPRAZolam [Xanax] 1 mg PO BID PRN #10 tab 06/15/20 Acamprosate Calcium [Campral] 333 mg PO TID 30 Days #90 tablet. 06/15/20 Folic Acid 1 mg PO DAILY 30 Days #30 tab 07/12/20 Thiamine [Vitamin B-1] 100 mg PO BID-W/MEALS 30 Days #60 07/12/20 tab Magnesium Oxide [Mag-Ox] 400 mg PO TID 30 Days #90 tab 07/17/20 chlordiazePOXIDE HCl [Librium] 25 mg PO QID #16 capsule 08/29/20 Allergies Allergy/AdvReac Type Severity Reaction Status Date / Time Cephalosporins Allergy Severe Anaphylaxis Verified 08/29/20 09:01 diphenhydramine HCl Allergy Severe Anaphylaxis Verified 08/29/20 09:01 [From Benadryl] divalproex sodium Allergy Severe Anaphylaxis Verified 08/29/20 09:01 [From Depakote] ceftriaxone [From Rocephin] Allergy Anaphylaxis Verified 08/29/20 09:01 cephalexin [From Keflex] Allergy Anaphylaxis Verified 08/29/20 09:01 lisinopril Allergy Anaphylaxis Verified 08/29/20 09:01 Review of Systems ROS Statement: Those systems with pertinent positive or pertinent negative responses have been documented in the HPI. ROS Other: All systems not noted in ROS Statement are negative. Past Medical History Past Medical History: GERD/Reflux, GI Bleed, Hypertension, Osteoarthritis (OA), Pneumonia, Seizure Disorder, Sleep Apnea/CPAP/BIPAP Additional Past Medical History / Comment(s): Occasional bilateral pedal edema if stands long, arthritis possibly in back/ribs, MILIND without device, ETOH abuse, alcoholic seizures/blackouts/fainting, alcoholic hepatitis, alcoholic gastritis, upper GI bleed, hypomagnesemia, spinal stenosis/herniated disc with surgery, bilateral varicose veins, hemorrhoids History of Any Multi-Drug Resistant Organisms: None Reported Past Surgical History: Appendectomy, Back Surgery, Tonsillectomy Additional Past Surgical History / Comment(s): bilateral discectomy, discectomy L5-S1, EGD Past Anesthesia/Blood Transfusion Reactions: Motion Sickness Past Psychological History: Anxiety, Depression Smoking Status: Current every day smoker Past Alcohol Use History: Abuse, Daily, Heavy Past Drug Use History: Marijuana - Past Family History Father Family Medical History: Cancer, Dementia, Neurologic Disorder Additional Family Medical History / Comment(s): melanoma, parkinsons Mother Family Medical History: Hypertension, Musculoskeletal Disorder, Neurologic Disorder, Osteoarthritis (OA) Additional Family Medical History / Comment(s): Mother of motor neuron disease at the age of 78yrs. General Exam Limitations: no limitations General appearance: alert, in no apparent distress Head exam: Present: atraumatic, normocephalic, normal inspection Eye exam: Present: normal appearance, PERRL, EOMI. Absent: scleral icterus, conjunctival injection, periorbital swelling ENT exam: Present: normal exam, normal oropharynx, mucous membranes moist Neck exam: Present: normal inspection. Absent: tenderness, meningismus, lymphadenopathy Respiratory exam: Present: normal lung sounds bilaterally. Absent: respiratory distress, wheezes, rales, rhonchi, stridor Cardiovascular Exam: Present: regular rate, normal rhythm, normal heart sounds. Absent: systolic murmur, diastolic murmur, rubs, gallop, clicks GI/Abdominal exam: Present: soft, tenderness (Mild epigastric), normal bowel s ounds. Absent: distended, guarding, rebound, rigid Back exam: Absent: CVA tenderness (R), CVA tenderness (L) Neurological exam: Present: alert, oriented X3 Skin exam: Present: warm, dry, intact, normal color. Absent: rash Course Vital Signs 08/29/20 08/29/20 08:12 10:06 Temperature 98.0 F Pulse Rate 96 89 Respiratory 16 16 Rate Blood Pressure 140/103 125/113 O2 Sat by Pulse 94 L 99 Oximetry Medical Decision Making - Medical Decision Making 45-year-old male presented for alcohol abuse. Patient is acutely intoxicated. Patient was observed, hydrated he has no signs of with alcohol withdrawal. Patient will be discharged with Librium. Patient advised to go back to rehab as he was just there for 3 weeks. - Lab Data Result diagrams: 08/29/20 08:19 08/29/20 08:19 Lab Results 08/29/20 08/29/20 08/29/20 Range/Units 08:19 08:19 08:19 WBC 6.3 (3.8-10.6) k/uL RBC 4.61 (4.30-5.90) m/uL Hgb 13.7 (13.0-17.5) gm/dL Hct 42.5 (39.0-53.0) % MCV 92.2 (80.0-100.0) fL MCH 29.8 (25.0-35.0) pg MCHC 32.3 (31.0-37.0) g/dL RDW 13.4 (11.5-15.5) % Plt Count 158 (150-450) k/uL MPV 7.1 Neutrophils % 54 % Lymphocytes % 38 % Monocytes % 4 % Eosinophils % 2 % Basophils % 0 % Neutrophils # 3.4 (1.3-7.7) k/uL Lymphocytes # 2.4 (1.0-4.8) k/uL Monocytes # 0.3 (0-1.0) k/uL Eosinophils # 0.1 (0-0.7) k/uL Basophils # 0.0 (0-0.2) k/uL Sodium 141 (137-145) mmol/L Potassium 4.1 (3.5-5.1) mmol/L Chloride 100 (98-107) mmol/L Carbon Dioxide 28 (22-30) mmol/L Anion Gap 13 mmol/L BUN 14 (9-20) mg/dL Creatinine 0.67 (0.66-1.25) mg/dL Est GFR (CKD-EPI)AfAm >90 (>60 ml/min/1.73 sqM) Est GFR (CKD-EPI)NonAf >90 (>60 ml/min/1.73 sqM) Glucose 91 (74-99) mg/dL Lactic Ac Sepsis Rflx Plasma Lactic Acid [place] 3.9 H* (0.7-2.0) mmol/L Calcium 8.9 (8.4-10.2) mg/dL Magnesium 1.7 (1.6-2.3) mg/dL Total Bilirubin 1.4 H (0.2-1.3) mg/dL AST 75 H (17-59) U/L ALT 30 (4-49) U/L Alkaline Phosphatase 57 (38-126) U/L Total Protein 7.4 (6.3-8.2) g/dL Albumin 4.9 (3.5-5.0) g/dL Amylase 75 (30-110) U/L Lipase 122 (23-300) U/L Serum Alcohol 178 mg/dL 08/29/20 Range/Units 08:50 WBC (3.8-10.6) k/uL RBC (4.30-5.90) m/uL Hgb (13.0-17.5) gm/dL Hct (39.0-53.0) % MCV (80.0-100.0) fL MCH (25.0-35.0) pg MCHC (31.0-37.0) g/dL RDW (11.5-15.5) % Plt Count (150-450) k/uL MPV Neutrophils % % Lymphocytes % % Monocytes % % Eosinophils % % Basophils % % Neutrophils # (1.3-7.7) k/uL Lymphocytes # (1.0-4.8) k/uL Monocytes # (0-1.0) k/uL Eosinophils # (0-0.7) k/uL Basophils # (0-0.2) k/uL Sodium (137-145) mmol/L Potassium (3.5-5.1) mmol/L Chloride (98-107) mmol/L Carbon Dioxide (22-30) mmol/L Anion Gap mmol/L BUN (9-20) mg/dL Creatinine (0.66-1.25) mg/dL Est GFR (CKD-EPI)AfAm (>60 ml/min/1.73 sqM) Est GFR (CKD-EPI)NonAf (>60 ml/min/1.73 sqM) Glucose (74-99) mg/dL Lactic Ac Sepsis Rflx Y Plasma Lactic Acid [place] (0.7-2.0) mmol/L Calcium (8.4-10.2) mg/dL Magnesium (1.6-2.3) mg/dL Total Bilirubin (0.2-1.3) mg/dL AST (17-59) U/L ALT (4-49) U/L Alkaline Phosphatase (38-126) U/L Total Protein (6.3-8.2) g/dL Albumin (3.5-5.0) g/dL Amylase (30-110) U/L Lipase (23-300) U/L Serum Alcohol mg/dL Disposition Clinical Impression: Alcohol abuse Disposition: HOME SELF-CARE Condition: Stable Instructions (If sedation given, give patient instructions): Alcohol Intoxication (ED), Alcohol Withdrawal (ED) Additional Instructions: Please return to the Emergency Department if symptoms worsen or any other concerns. Prescriptions: chlordiazePOXIDE HCl [Librium] 25 mg PO QID #16 capsule Is patient prescribed a controlled substance at d/c from ED?: Yes When asked, does pt state using other controlled substances?: No If prescribed controlled substance>3 days was MAPS reviewed?: Prescribed <3 Days Referrals: Veena Bynum DO [Primary Care Provider] - 1-2 days Time of Disposition: 11:40
[2020-08-29 08:29] LABS: Basophils % (A) 0 %; Eosinophils # (A) 0.1 k/uL (0-0.7); Eosinophils % (A) 2 %; HCT 42.5 % (39.0-53.0); HGB 13.7 gm/dL (13.0-17.5); Lymphocytes # (A) 2.4 k/uL (1.0-4.8); Lymphocytes % (A) 38 %; MCH 29.8 pg (25.0-35.0); MCHC 32.3 g/dL (31.0-37.0); MCV 92.2 fL (80.0-100.0); Mean Platelet Volume 7.1; Monocytes # (A) 0.3 k/uL (0-1.0); Monocytes % (A) 4 %; Neutrophils # (A) 3.4 k/uL (1.3-7.7); Neutrophils % (A) 54 %; Platelet Count 158 k/uL (150-450); RBC 4.61 m/uL (4.30-5.90); RDW 13.4 % (11.5-15.5); WBC 6.3 k/uL (3.8-10.6)
[2020-08-29 08:45] LABS: ALT 30 U/L (4-49); AST 75 U/L (17-59); African American GFR (CKD) >90 (>60 ml/min/1.73 sqM); Albumin 4.9 g/dL (3.5-5.0); Alkaline Phosphatase 57 U/L (38-126); Amylase 75 U/L (30-110); Anion Gap 13 mmol/L; Blood Urea Nitrogen 14 mg/dL (9-20); Calcium 8.9 mg/dL (8.4-10.2); Carbon Dioxide 28 mmol/L (22-30); Chloride 100 mmol/L (98-107); Glucose 91 mg/dL (74-99); Lipase 122 U/L (23-300); Magnesium 1.7 mg/dL (1.6-2.3); Non-African American GFR(CKD) >90 (>60 ml/min/1.73 sqM); Potassium 4.1 mmol/L (3.5-5.1); Sodium 141 mmol/L (137-145); Total Bilirubin 1.4 mg/dL (0.2-1.3); Total Protein 7.4 g/dL (6.3-8.2)
[2020-08-29 08:49] LABS: Alcohol 178 mg/dL
[2020-08-29] MEDS ORDERED: ACETAMINOPHEN TAB 325 MG TAB PO STA (09:50)
[2020-08-29] MEDS ORDERED: DIAZEPAM 5 MG/ML 2 ML INJ IVP STA ×2 (10:21→11:41)
[2020-08-29 12:12] VITALS: BP 149/92; PULSE 82; RESP 18
== END 2020-08-29 12:26 | disposition home or self-care (01) ==
LOC: EC 08:09
DX: F10.239 Alcohol dependence with withdrawal, unspecified (principal); F17.200 Nicotine dependence, unspecified, uncomplicated; F32.9 Major depressive disorder, single episode, unspecified; F41.9 Anxiety disorder, unspecified; I10 Essential (primary) hypertension; K21.9 Gastro-esophageal reflux disease without esophagitis; M19.90 Unspecified osteoarthritis, unspecified site; Z79.1 Long term (current) use of non-steroidal anti-inflammatories (NSAID); F12.90 Cannabis use, unspecified, uncomplicated
CPT/HCPCS: 80053; 82150; 83605; 83690; 83735; 85025; 99285; 96374; 96375; 96376; 96361; G0480; J3360; J2405; C9113; 80320

== ENCOUNTER 2020-09-05 19:29 | Inpatient (IN) | payer OTHER ==
[2020-09-05] MEDS ORDERED: SODIUM CHLORIDE 0.9% 1,000 ML IV STA (19:54)
[2020-09-05] MEDS ORDERED: THIAMINE 100 MG/ML 2 ML VIAL IM STA (19:59)
[2020-09-05] MEDS ORDERED: LORazepam 2 MG/ML INJ IV STA (19:59)
--- NOTE | 2020-09-05 20:07 | ED ---
General Adult HPI - General Chief complaint: Alcohol Stated complaint: ETOH Time Seen by Provider: 09/05/20 19:49 Source: patient, family, EMS, RN notes reviewed, old records reviewed Mode of arrival: EMS Limitations: no limitations - History of Present Illness Initial comments: 45-year-old male who is a daily drinker, presenting for suspected withdrawal. Patient states he has been vomiting all day and unable to keep anything down. He states his last drink was early this morning. Patient is tremulous. He denies central chest pain. Denies dyspnea. Denies fever. He does report some minimal abdominal discomfort. He has had multiple admissions for alcohol withdrawal. - Related Data Home Medications Medication Instructions Recorded Confirmed Losartan Potassium 50 mg PO DAILY 01/03/19 08/29/20 Pantoprazole Sodium 40 mg PO DAILY PRN 01/03/19 08/29/20 Gabapentin [Neurontin] 600 mg PO TID 03/04/19 08/29/20 Albuterol Inhaler [Ventolin Hfa 1 - 2 puff INHALATION RT-QID PRN 10/11/19 08/29/20 Inhaler] Celecoxib [CeleBREX] 200 mg PO BID PRN 10/11/19 08/29/20 Fluticasone Nasal [place] [Flonase 2 spray EA NOSTRIL BID 10/11/19 08/29/20 Nasal [place]] traZODone HCL [Desyrel] 100 mg PO HS 05/14/20 08/29/20 HYDROcodone/APAP 5-325MG [[place] 1 tab PO Q8H PRN 06/25/20 08/29/20 5-325] Acetaminophen Tab [Tylenol] 500 mg PO DAILY PRN 07/04/20 08/29/20 Calcium Carb-Mag Carb-Folic 1 tab PO AC-BID 08/29/20 08/29/20 [Magnebind 400] Previous Rx's Medication Instructions Recorded cloNIDine HCL [Catapres] 0.1 mg PO TID #90 tab 03/29/20 ALPRAZolam [Xanax] 1 mg PO BID PRN #10 tab 06/15/20 Acamprosate Calcium [Campral] 333 mg PO TID 30 Days #90 tablet. 06/15/20 Folic Acid 1 mg PO DAILY 30 Days #30 tab 07/12/20 Thiamine [Vitamin B-1] 100 mg PO BID-W/MEALS 30 Days #60 07/12/20 tab Magnesium Oxide [Mag-Ox] 400 mg PO TID 30 Days #90 tab 07/17/20 chlordiazePOXIDE HCl [Librium] 25 mg PO QID #16 capsule 08/29/20 Allergies Allergy/AdvReac Type Severity Reaction Status Date / Time Cephalosporins Allergy Severe Anaphylaxis Verified 09/05/20 19:44 diphenhydramine HCl Allergy Severe Anaphylaxis Verified 09/05/20 19:44 [From Benadryl] divalproex sodium Allergy Severe Anaphylaxis Verified 09/05/20 19:44 [From Depakote] ceftriaxone [From Rocephin] Allergy Anaphylaxis Verified 09/05/20 19:44 cephalexin [From Keflex] Allergy Anaphylaxis Verified 09/05/20 19:44 lisinopril Allergy Anaphylaxis Verified 09/05/20 19:44 Review of Systems ROS Statement: Those systems with pertinent positive or pertinent negative responses have been documented in the HPI. ROS Other: All systems not noted in ROS Statement are negative. Past Medical History Past Medical History: GERD/Reflux, GI Bleed, Hypertension, Osteoarthritis (OA), Pneumonia, Seizure Disorder, Sleep Apnea/CPAP/BIPAP Additional Past Medical History / Comment(s): Occasional bilateral pedal edema if stands long, arthritis possibly in back/ribs, MILIND without device, ETOH abuse, alcoholic seizures/blackouts/fainting, alcoholic hepatitis, alcoholic gastritis, upper GI bleed, hypomagnesemia, spinal stenosis/herniated disc with surgery, bilateral varicose veins, hemorrhoids History of Any Multi-Drug Resistant Organisms: None Reported Past Surgical History: Appendectomy, Back Surgery, Tonsillectomy Additional Past Surgical History / Comment(s): bilateral discectomy, discectomy L5-S1, EGD Past Anesthesia/Blood Transfusion Reactions: Motion Sickness Past Psychological History: Anxiety, Depression Smoking Status: Current every day smoker Past Alcohol Use History: Abuse, Daily, Heavy Past Drug Use History: Marijuana - Past Family History Father Family Medical History: Cancer, Dementia, Neurologic Disorder Additional Family Medical History / Comment(s): melanoma, parkinsons Mother Family Medical History: Hypertension, Musculoskeletal Disorder, Neurologic Disorder, Osteoarthritis (OA) Additional Family Medical History / Comment(s): Mother of motor neuron disease at the age of 78yrs. General Exam Limitations: no limitations General appearance: alert, anxious, in distress Head exam: Present: atraumatic, normocephalic Eye exam: Present: normal appearance, PERRL ENT exam: Present: mucous membranes dry Neck exam: Present: normal inspection. Absent: tenderness Respiratory exam: Present: normal lung sounds bilaterally. Absent: respiratory distress, wheezes Cardiovascular Exam: Present: normal rhythm, tachycardia GI/Abdominal exam: Present: soft. Absent: distended, tenderness, guarding, rebound Extremities exam: Present: normal inspection, normal capillary refill Neurological exam: Present: alert, oriented X3, CN II-XII intact. Absent: motor sensory deficit Psychiatric exam: Present: anxious Skin exam: Present: warm, dry, intact. Absent: cyanosis, diaphoretic Course Vital Signs 09/05/20 19:39 Temperature 99.4 F Pulse Rate 101 H Respiratory 20 Rate Blood Pressure 129/80 O2 Sat by Pulse 99 Oximetry Medical Decision Making - Medical Decision Making 45-year-old male presenting with alcohol withdrawal, he is very tremulous, tachycardic, with acute nausea and vomiting. He has normal CBC, CMP showing a hypomagnesemia, mild elevation in bilirubin and AST. Patient is requiring Ativan for withdrawal. Given the severity of his symptoms, and the degree of which this individual drinks on a daily basis he will be admitted for alcohol withdrawal. Case is discussed with Dr. Ayers who will admit. - Lab Data Result diagrams: 09/05/20 20:21 09/05/20 20:21 Lab Results 09/05/20 09/05/20 09/05/20 Range/Units 20:21 20:21 20:21 WBC 5.4 (3.8-10.6) k/uL RBC 4.40 (4.30-5.90) m/uL Hgb 13.5 (13.0-17.5) gm/dL Hct 41.1 (39.0-53.0) % MCV 93.3 (80.0-100.0) fL MCH 30.6 (25.0-35.0) pg MCHC 32.8 (31.0-37.0) g/dL RDW 13.8 (11.5-15.5) % Plt Count 149 L (150-450) k/uL MPV 7.3 Neutrophils % 75 % Lymphocytes % 17 % Monocytes % 5 % Eosinophils % 1 % Basophils % 0 % Neutrophils # 4.0 (1.3-7.7) k/uL Lymphocytes # 0.9 L (1.0-4.8) k/uL Monocytes # 0.3 (0-1.0) k/uL Eosinophils # 0.0 (0-0.7) k/uL Basophils # 0.0 (0-0.2) k/uL PT 9.6 (9.0-12.0) sec INR 0.9 (<1.2) Sodium 134 L (137-145) mmol/L Potassium 4.5 (3.5-5.1) mmol/L Chloride 97 L (98-107) mmol/L Carbon Dioxide 23 (22-30) mmol/L Anion Gap 14 mmol/L BUN 15 (9-20) mg/dL Creatinine 0.80 (0.66-1.25) mg/dL Est GFR (CKD-EPI)AfAm >90 (>60 ml/min/1.73 sqM) Est GFR (CKD-EPI)NonAf >90 (>60 ml/min/1.73 sqM) Glucose 74 (74-99) mg/dL Calcium 8.7 (8.4-10.2) mg/dL Magnesium 1.2 L (1.6-2.3) mg/dL Total Bilirubin 1.8 H (0.2-1.3) mg/dL AST 75 H (17-59) U/L ALT 34 (4-49) U/L Alkaline Phosphatase 62 (38-126) U/L Total Protein 7.0 (6.3-8.2) g/dL Albumin 4.5 (3.5-5.0) g/dL Lipase 61 (23-300) U/L Serum Alcohol 66 mg/dL Disposition Clinical Impression: Dehydration, Alcohol addiction, Intractable nausea and vomiting, Alcohol abuse with withdrawal Disposition: ADMITTED IP TO THIS [facility] Condition: Stable Is patient prescribed a controlled substance at d/c from ED?: No Referrals: Veena Bynum DO [Primary Care Provider] - 1-2 days Decision to Admit Reason: Admit from EC Decision Date: 09/05/20 Decision Time: 20:52
[2020-09-05 20:30] LABS: Basophils % (A) 0 %; Eosinophils % (A) 1 %; HCT 41.1 % (39.0-53.0); HGB 13.5 gm/dL (13.0-17.5); Lymphocytes # (A) 0.9 k/uL (1.0-4.8); Lymphocytes % (A) 17 %; MCH 30.6 pg (25.0-35.0); MCHC 32.8 g/dL (31.0-37.0); MCV 93.3 fL (80.0-100.0); Mean Platelet Volume 7.3; Monocytes # (A) 0.3 k/uL (0-1.0); Monocytes % (A) 5 %; Neutrophils % (A) 75 %; Platelet Count 149 k/uL (150-450); RDW 13.8 % (11.5-15.5); WBC 5.4 k/uL (3.8-10.6)
[2020-09-05 20:40] LABS: ALT 34 U/L (4-49); AST 75 U/L (17-59); African American GFR (CKD) >90 (>60 ml/min/1.73 sqM); Albumin 4.5 g/dL (3.5-5.0); Alcohol 66 mg/dL; Alkaline Phosphatase 62 U/L (38-126); Anion Gap 14 mmol/L; Blood Urea Nitrogen 15 mg/dL (9-20); Calcium 8.7 mg/dL (8.4-10.2); Carbon Dioxide 23 mmol/L (22-30); Chloride 97 mmol/L (98-107); Glucose 74 mg/dL (74-99); Lipase 61 U/L (23-300); Magnesium 1.2 mg/dL (1.6-2.3); Non-African American GFR(CKD) >90 (>60 ml/min/1.73 sqM); Potassium 4.5 mmol/L (3.5-5.1); Sodium 134 mmol/L (137-145); Total Bilirubin 1.8 mg/dL (0.2-1.3)
[2020-09-05 20:42] LABS: INR 0.9 (<1.2); Prothrombin Time 9.6 sec (9.0-12.0)
[2020-09-05] MEDS ORDERED: NALOXONE 0.4 MG/ML 1 ML VIAL IV PRN (20:49)
[2020-09-05] MEDS: ONDANSETRON 4 MG/2 ML VIAL IVP PRN (21:23)
[2020-09-05] MEDS: SODIUM CHLORIDE 0.9% 1,000 ML IV SCH (21:37)
[2020-09-05] MEDS: PANTOPRAZOLE 40 MG/10 ML VIAL IV SCH (21:37)
[2020-09-05] MEDS: MAGNESIUM SULFATE-D5W PMX 1 GM in DEXTROSE/WATER 1 100ML.BAG IVPB SCH ×2 (21:40→22:43)
[2020-09-05] MEDS: LORazepam 2 MG/ML INJ IV PRN ×3 (21:50→23:51)
[2020-09-05] MEDS ORDERED: MORPHINE SULFATE 4 MG/ML SYRINGE IVP STA (22:12)
[2020-09-06] MEDS ORDERED: diazePAM 2 MG TAB PO STA (00:43)
[2020-09-06] MEDS: LORazepam 2 MG/ML INJ IV PRN ×8 (01:55→22:23)
[2020-09-06] MEDS: ACAMPROSATE CALCIUM 333 MG TABLET.DR PO SCH ×3 (08:09→21:27)
[2020-09-06] MEDS: HEPARIN SODIUM,PORCINE 5,000 UNIT/ML 1 ML VIAL SQ SCH ×2 (08:09→21:28)
[2020-09-06] MEDS: PANTOPRAZOLE 40 MG/10 ML VIAL IV SCH (08:09)
[2020-09-06] MEDS: FOLIC ACID 1 MG TAB PO SCH (08:10)
[2020-09-06] MEDS: LOSARTAN 50 MG TAB PO SCH (08:10)
[2020-09-06] MEDS: GABAPENTIN 300 MG CAP PO SCH ×2 (08:10→21:27)
[2020-09-06] MEDS: cloNIDine HCL 0.1 MG TAB PO SCH ×3 (08:10→21:27)
[2020-09-06] MEDS: THIAMINE 100 MG TAB PO SCH ×2 (08:11→15:40)
[2020-09-06] MEDS: MAGNESIUM OXIDE 400 MG TAB PO SCH ×3 (08:11→21:27)
[2020-09-06] MEDS ORDERED: FLUTICASONE 50MCG/SPRAY NASAL 16GM EA NOSTRIL PRN (10:56)
[2020-09-06] MEDS: NICOTINE 14MG/24HR PATCH TRANSDERM SCH (11:53)
[2020-09-06] MEDS: SODIUM CHLORIDE 0.9% 1,000 ML IV SCH (14:34)
[2020-09-06] MEDS: ONDANSETRON 4 MG/2 ML VIAL IVP PRN (17:10)
[2020-09-06] MEDS: traZODone HCL 100 MG TAB PO SCH (21:27)
--- NOTE | 2020-09-06 22:37 | P.HPIM ---
History of Present Illness H&P Date: 09/06/20 Chief Complaint: Acute alcohol intoxication Patient is a 45-year-old male with a known history of hypertension, GERD, GI bleed, seizure disorder, obstructive sleep apnea, severe alcohol abuse and alcohol withdrawal symptoms and alcohol hepatitis and daily heavy alcohol use a nd marijuana use presents to ER due to withdrawal symptoms. Patient states that he did follow-up with alcohol rehab program and has an appointment with counselor but states that they were not helpful. No complaints of chest pain. Patient is having epigastric abdominal pain. Nauseated. No ulcers or vomiting. Patient had last drink early in the morning and became very tremulous. No complaints of chest pain. No dysuria or hematuria. No fever no chills. No cough or sputum production. Patient has multiple admissions for alcohol withdrawal symptoms previously. Laboratory data showed WBC 5.4 hemoglobin 13.5 platelets 149 Sodium 134 potassium 4.5 chloride 97 magnesium 1.2 AST 75 ALT 34 and coronavirus PCR not detected Alcohol level is 66 Review of Systems Constitutional: Patient denies any fever or chills . No generalized weakness or weight loss. Abdomen: Patient does have nausea and epigastric abdominal pain. No diarrhea. Cardiovascular: Patient denies any chest pain or short of breath no palpitations. Respiratory: patient denied any cough or sputum production. No shortness of breath Neurologic: Patient denied any numbness or tingling headache. Musculoskeletal: Patient denies any complaints of joint swelling or deformity. Skin: Negative Psychiatric: Negative Endocrine: No heat or cold intolerance. No recent weight gain. Genitourinary: No dysuria or hematuria. All other 14 point ROS negative except the above Past Medical History Past Medical History: GERD/Reflux, GI Bleed, Hypertension, Osteoarthritis (OA), Pneumonia, Seizure Disorder, Sleep Apnea/CPAP/BIPAP Additional Past Medical History / Comment(s): Occasional bilateral pedal edema if stands long, arthritis possibly in back/ribs, MILIND without device, ETOH abuse, alcoholic seizures/blackouts/fainting, alcoholic hepatitis, alcoholic gastritis, upper GI bleed, hypomagnesemia, spinal stenosis/herniated disc with surgery, bilateral varicose veins, hemorrhoids History of Any Multi-Drug Resistant Organisms: None Reported Past Surgical History: Appendectomy, Back Surgery, Tonsillectomy Additional Past Surgical History / Comment(s): bilateral discectomy, discectomy L5-S1, EGD Past Anesthesia/Blood Transfusion Reactions: Motion Sickness Past Psychological History: Anxiety, Depression Additional Psychological History / Comment(s): pt lives alone no pets. Pt uses no assistive device. He drives. Smoking Status: Current every day smoker Past Alcohol Use History: Abuse, Daily, Heavy Additional Past Alcohol Use History / Comment(s): He has been in rehab in the past for ETOH abuse. Pt states he started on and off smoking as a young adult and has more often been a nonsmoker. He states a pack might last him 3-4 days. Pt states he drinks 1/5 vodka a day Past Drug Use History: Marijuana Additional Drug Use History / Comment(s): Pt smoked marijuana on occasion in the past. - Past Family History Father Family Medical History: Cancer, Dementia, Neurologic Disorder Additional Family Medical History / Comment(s): melanoma, parkinsons Mother Family Medical History: Hypertension, Musculoskeletal Disorder, Neurologic Disorder, Osteoarthritis (OA) Additional Family Medical History / Comment(s): Mother of motor neuron disease at the age of 78yrs. Medications and Allergies Home Medications Medication Instructions Recorded Confirmed Type Losartan Potassium 50 mg PO DAILY 01/03/19 09/06/20 History Pantoprazole Sodium 40 mg PO DAILY PRN 01/03/19 09/06/20 History Gabapentin [Neurontin] 600 mg PO TID 03/04/19 09/06/20 History Albuterol Inhaler [Ventolin Hfa 1 - 2 puff INHALATION RT-QID PRN 10/11/19 09/06/20 History Inhaler] Fluticasone Nasal [place] [Flonase 2 spray EA NOSTRIL BID PRN 10/11/19 09/06/20 History Nasal [place]] cloNIDine HCL [Catapres] 0.1 mg PO TID #90 tab 03/29/20 09/06/20 Rx traZODone HCL [Desyrel] 100 mg PO HS 05/14/20 09/06/20 History ALPRAZolam [Xanax] 1 mg PO BID PRN #10 tab 06/15/20 09/06/20 Rx Acamprosate Calcium [Campral] 333 mg PO TID 30 Days #90 tablet. 06/15/20 09/06/20 Rx Acetaminophen Tab [Tylenol] 500 mg PO DAILY PRN 07/04/20 09/06/20 History Folic Acid 1 mg PO DAILY 30 Days #30 tab 07/12/20 09/06/20 Rx Thiamine [Vitamin B-1] 100 mg PO BID-W/MEALS 30 Days #60 07/12/20 09/06/20 Rx tab Magnesium Oxide [Mag-Ox] 400 mg PO TID 30 Days #90 tab 07/17/20 09/06/20 Rx Calcium Carb-Mag Carb-Folic 1 tab PO AC-BID 08/29/20 09/06/20 History [Magnebind 400] chlordiazePOXIDE HCl [Librium] 25 mg PO QID #16 capsule 08/29/20 09/06/20 Rx Allergies Allergy/AdvReac Type Severity Reaction Status Date / Time Cephalosporins Allergy Severe Anaphylaxis Verified 09/05/20 21:37 diphenhydramine HCl Allergy Severe Anaphylaxis Verified 09/05/20 21:37 [From Benadryl] divalproex sodium Allergy Severe Anaphylaxis Verified 09/05/20 21:37 [From Depakote] ceftriaxone [From Rocephin] Allergy Anaphylaxis Verified 09/05/20 21:37 cephalexin [From Keflex] Allergy Anaphylaxis Verified 09/05/20 21:37 lisinopril Allergy Anaphylaxis Verified 09/05/20 21:37 Physical Exam Vitals: Vital Signs Temp Pulse Pulse Resp BP BP Pulse Ox 09/06/20 05:10 98.5 F 76 18 117/70 98 09/05/20 23:20 98.8 F 103 H 18 162/77 92 L 09/05/20 21:40 87 18 137/83 95 09/05/20 19:39 99.4 F 101 H 20 129/80 99 Intake and Output 09/05/20 09/06/20 09/06/20 22:59 06:59 14:59 Intake Total 500 Balance 500 Intake: Oral 500 Other: Voiding Method Toilet # Voids 3 1 Weight 122.47 kg PHYSICAL EXAMINATION: Patient is lying in the bed comfortably, no acute distress, awake alert and oriented.. HEENT: Normocephalic. Neck is supple. Pupils reactive. Nostrils clear. Oral cavity is moist. Ears reveal no drainage. Neck reveals no JVD, carotid bruits, or thyromegaly. CHEST EXAMINATION: Trachea is central. Symmetrical expansion. Lung llamas clear to auscultation and percussion. CARDIAC: Normal S1, S2 with no gallops. No murmurs ABDOMEN: Soft. Bowel sounds normal. No organomegaly. No abdominal bruits. Mild epigastric tenderness. No guarding or rigidity. Extremities: reveal no edema. No clubbing or cyanosis Neurologically awake, alert, oriented x3 with well-coordinated movements. No focal deficits noted Skin: No rash or skin lesions. Psychiatric: Coperative. Nonsuicidal Musculoskeletal: No joint swelling or deformity. Normal range of motion. Results CBC & Chem 7: 09/05/20 20:21 09/05/20 20:21 Labs: Abnormal Lab Results - Last 24 Hours (Table) 09/05/20 09/05/20 Range/Units 20:21 20:21 Plt Count 149 L (150-450) k/uL Lymphocytes # 0.9 L (1.0-4.8) k/uL Sodium 134 L (137-145) mmol/L Chloride 97 L (98-107) mmol/L Magnesium 1.2 L (1.6-2.3) mg/dL Total Bilirubin 1.8 H (0.2-1.3) mg/dL AST 75 H (17-59) U/L Assessment and Plan Assessment: Acute alcohol intoxication on admission Mild alcohol hepatitis Hypovolemic hyponatremia Hypomagnesemia which is being replaced History of GERD GERD History of seizure disorder Obstructive sleep apnea not using CPAP at home Currently everyday smoker Heavy alcohol abuse on daily basis History of marijuana use Spinal stenosis test kidney release with surgery Bilateral varicose veins and also Hemorrhoids. DVT prophylaxisWith heparin subcu Plan: Patient will be continued on IV hydration with normal saline and continue with alcohol withdrawal protocol and monitor closely.seizure precautions and fall precautions. Replace electrolytes. Continue PPI and follow-up H&H. Further recommendations based on clinical course. Patient has been counseled extensively for alcohol abstinence. Time with Patient: Greater than 30
[2020-09-07] MEDS: LORazepam 2 MG/ML INJ IV PRN ×5 (08:00→21:17)
[2020-09-07] MEDS: PANTOPRAZOLE 40 MG/10 ML VIAL IV SCH (08:16)
[2020-09-07] MEDS: HEPARIN SODIUM,PORCINE 5,000 UNIT/ML 1 ML VIAL SQ SCH ×2 (10:09→16:10)
[2020-09-07] MEDS: cloNIDine HCL 0.1 MG TAB PO SCH ×3 (10:09→20:51)
[2020-09-07] MEDS: THIAMINE 100 MG TAB PO SCH ×2 (10:09→16:10)
[2020-09-07] MEDS: ACAMPROSATE CALCIUM 333 MG TABLET.DR PO SCH ×3 (10:09→20:51)
[2020-09-07] MEDS: MAGNESIUM OXIDE 400 MG TAB PO SCH ×3 (10:10→20:51)
[2020-09-07] MEDS: FOLIC ACID 1 MG TAB PO SCH (10:10)
[2020-09-07] MEDS: NICOTINE 14MG/24HR PATCH TRANSDERM SCH (10:10)
[2020-09-07] MEDS: GABAPENTIN 300 MG CAP PO SCH ×2 (10:10→20:51)
[2020-09-07] MEDS: LOSARTAN 50 MG TAB PO SCH (10:10)
[2020-09-07] MEDS: SODIUM CHLORIDE 0.9% 1,000 ML IV SCH (14:30)
[2020-09-07] MEDS: ACETAMINOPHEN TAB 325 MG TAB PO PRN ×2 (16:09→21:17)
[2020-09-07 20:08] VITALS: RESP 18
[2020-09-07] MEDS: traZODone HCL 100 MG TAB PO SCH (20:51)
[2020-09-08] MEDS: MAGNESIUM SULFATE-D5W PMX 1 GM in DEXTROSE/WATER 1 100ML.BAG IVPB SCH ×2 (00:13→01:07)
[2020-09-08] MEDS: HEPARIN SODIUM,PORCINE 5,000 UNIT/ML 1 ML VIAL SQ SCH ×3 (00:14→15:33)
[2020-09-08 03:11] VITALS: TEMP 98.1
[2020-09-08] MEDS: SODIUM CHLORIDE 0.9% 1,000 ML IV SCH (05:01)
[2020-09-08] MEDS: LORazepam 2 MG/ML INJ IV PRN ×4 (05:22→16:24)
[2020-09-08] MEDS: ACAMPROSATE CALCIUM 333 MG TABLET.DR PO SCH ×2 (07:19→15:33)
[2020-09-08] MEDS: GABAPENTIN 300 MG CAP PO SCH (07:19)
[2020-09-08] MEDS: THIAMINE 100 MG TAB PO SCH (07:19)
[2020-09-08] MEDS: cloNIDine HCL 0.1 MG TAB PO SCH ×2 (07:20→15:33)
[2020-09-08] MEDS: LOSARTAN 50 MG TAB PO SCH (07:20)
[2020-09-08] MEDS: NICOTINE 14MG/24HR PATCH TRANSDERM SCH (07:20)
[2020-09-08] MEDS: FOLIC ACID 1 MG TAB PO SCH (07:20)
[2020-09-08] MEDS: MAGNESIUM OXIDE 400 MG TAB PO SCH ×2 (07:20→15:33)
[2020-09-08] MEDS ORDERED: PANTOPRAZOLE 40 MG TABLET PO SCH (07:30)
[2020-09-08 08:59] LABS: Basophils # (A) 0.01 X 10*3/uL (0.00-0.10); Basophils % (A) 0.2 %; Eosinophils # (A) 0.07 X 10*3/uL (0.04-0.35); Eosinophils % (A) 1.6 %; HCT 36.7 % (39.6-50.0); HGB 11.7 g/dL (13.0-17.0); Lymphocytes # (A) 1.88 X 10*3/uL (0.90-5.00); Lymphocytes % (A) 43.7 %; MCH 30.5 pg (27.0-32.0); MCHC 31.9 g/dL (32.0-37.0); MCV 95.8 fL (80.0-97.0); Mean Platelet Volume 10.2 fL (9.5-12.2); Monocytes # (A) 0.48 X 10*3/uL (0.20-1.00); Monocytes % (A) 11.2 %; Neutrophils # (A) 1.85 X 10*3/uL (1.80-7.70); Neutrophils % (A) 43.1 %; Platelet Count 109 X 10*3/uL (140-440); RBC 3.83 X 10*6/uL (4.40-5.60)
[2020-09-08 09:15] LABS: African American GFR (CKD) 123.3 (60.0-200.0); Anion Gap 7.7 mmol/L (4.00-12.00); BUN/Creat Ratio 13.75 Ratio (12.00-20.00); Calcium 8.8 mg/dL (8.7-10.3); Carbon Dioxide 28.3 mmol/L (21.6-31.8); Non-African American GFR(CKD) 106.4 (60.0-200.0); Potassium 4.1 mmol/L (3.5-5.5)
[2020-09-08 11:53] VITALS: BP 116/67; PULSE 63
== END 2020-09-08 17:45 | disposition home or self-care (01) | DRG 897 ==
LOC: EC 19:29 → 4SSUR 20:49 → 5NMEDONC 22:38
PROVIDERS: ADMIT Internal Medicine; ATTEND Internal Medicine
DX: F10.239 Alcohol dependence with withdrawal, unspecified (principal); E87.1 Hypo-osmolality and hyponatremia; K21.9 Gastro-esophageal reflux disease without esophagitis; I10 Essential (primary) hypertension; M19.90 Unspecified osteoarthritis, unspecified site; Z87.01 Personal history of pneumonia (recurrent); G40.909 Epilepsy, unspecified, not intractable, without status epilepticus; G47.33 Obstructive sleep apnea (adult) (pediatric); F17.200 Nicotine dependence, unspecified, uncomplicated; Z20.822 Contact with and (suspected) exposure to COVID-19; Z80.8 Family history of malignant neoplasm of other organs or systems; Z82.49 Family history of ischemic heart disease and other diseases of the circulatory system; Z82.0 Family history of epilepsy and other diseases of the nervous system; E86.0 Dehydration; F10.229 Alcohol dependence with intoxication, unspecified; F41.9 Anxiety disorder, unspecified; F32.9 Major depressive disorder, single episode, unspecified; K70.10 Alcoholic hepatitis without ascites; E83.42 Hypomagnesemia; E86.1 Hypovolemia; K64.9 Unspecified hemorrhoids; Z79.51 Long term (current) use of inhaled steroids; I83.93 Asymptomatic varicose veins of bilateral lower extremities; M48.07 Spinal stenosis, lumbosacral region
CPT/HCPCS: 36415; 80048; 80053; 80320; 83690; 83735; 85025; 85610; 87635

== ENCOUNTER 2020-09-12 08:17 | Inpatient (IN) | payer OTHER ==
[2020-09-12] MEDS ORDERED: SODIUM CHLORIDE 0.9% 1,000 ML IV ONE ×2 (08:49→10:01)
--- NOTE | 2020-09-12 09:03 | ED ---
General Adult HPI - General Chief complaint: Alcohol Stated complaint: withdrawals Time Seen by Provider: 09/12/20 08:20 Source: patient, EMS, RN notes reviewed, old records reviewed Mode of arrival: EMS Limitations: no limitations - History of Present Illness Initial comments: This a 45-year-old male who presents emergency Department stating he's an al coholic. Patient states he stopped drinking sometime last night and now he is having nausea and vomiting. Patient states he thinks he starting withdrawals. Patient denies any chest pain palpitations difficulty breathing. Patient denies any fever chills or cough per patient denies any abdominal pain. Patient denies any drug use. - Related Data Home Medications Medication Instructions Recorded Confirmed Losartan Potassium 50 mg PO DAILY 01/03/19 09/12/20 Pantoprazole Sodium 40 mg PO DAILY PRN 01/03/19 09/12/20 Gabapentin [Neurontin] 600 mg PO TID 03/04/19 09/12/20 Albuterol Inhaler [Ventolin Hfa 1 - 2 puff INHALATION RT-QID PRN 10/11/19 09/12/20 Inhaler] Fluticasone Nasal [place] [Flonase 2 spray EA NOSTRIL BID PRN 10/11/19 09/12/20 Nasal [place]] traZODone HCL [Desyrel] 100 mg PO HS 05/14/20 09/12/20 Acetaminophen Tab [Tylenol] 500 mg PO DAILY PRN 07/04/20 09/12/20 Calcium Carb-Mag Carb-Folic 1 tab PO AC-BID 08/29/20 09/12/20 [Magnebind 400] Previous Rx's Medication Instructions Recorded cloNIDine HCL [Catapres] 0.1 mg PO TID #90 tab 03/29/20 ALPRAZolam [Xanax] 1 mg PO BID PRN #10 tab 06/15/20 Acamprosate Calcium [Campral] 333 mg PO TID 30 Days #90 tablet 06/15/20 Folic Acid 1 mg PO DAILY 30 Days #30 tab 07/12/20 Thiamine [Vitamin B-1] 100 mg PO BID-W/MEALS 30 Days #60 07/12/20 tab Magnesium Oxide [Mag-Ox] 400 mg PO TID 30 Days #90 tab 07/17/20 chlordiazePOXIDE HCl [Librium] 25 mg PO QID #16 capsule 08/29/20 Allergies Allergy/AdvReac Type Severity Reaction Status Date / Time Cephalosporins Allergy Severe Anaphylaxis Verified 09/12/20 08:54 diphenhydramine HCl Allergy Severe Anaphylaxis Verified 09/12/20 08:54 [From Benadryl] divalproex sodium Allergy Severe Anaphylaxis Verified 09/12/20 08:54 [From Depakote] ceftriaxone [From Rocephin] Allergy Anaphylaxis Verified 09/12/20 08:54 cephalexin [From Keflex] Allergy Anaphylaxis Verified 09/12/20 08:54 lisinopril Allergy Anaphylaxis Verified 09/12/20 08:54 Review of Systems ROS Statement: Those systems with pertinent positive or pertinent negative responses have been documented in the HPI. ROS Other: All systems not noted in ROS Statement are negative. Past Medical History Past Medical History: GERD/Reflux, GI Bleed, Hypertension, Osteoarthritis (OA), Pneumonia, Seizure Disorder, Sleep Apnea/CPAP/BIPAP Additional Past Medical History / Comment(s): Occasional bilateral pedal edema if stands long, arthritis possibly in back/ribs, MILIND without device, ETOH abuse, alcoholic seizures/blackouts/fainting, alcoholic hepatitis, alcoholic gastritis, upper GI bleed, hypomagnesemia, spinal stenosis/herniated disc with surgery, bilateral varicose veins, hemorrhoids History of Any Multi-Drug Resistant Organisms: None Reported Past Surgical History: Appendectomy, Back Surgery, Tonsillectomy Additional Past Surgical History / Comment(s): bilateral discectomy, discectomy L5-S1, EGD Past Anesthesia/Blood Transfusion Reactions: Motion Sickness Past Psychological History: Anxiety, Depression Smoking Status: Current every day smoker Past Alcohol Use History: Abuse, Daily, Heavy Past Drug Use History: Marijuana - Past Family History Father Family Medical History: Cancer, Dementia, Neurologic Disorder Additional Family Medical History / Comment(s): melanoma, parkinsons Mother Family Medical History: Hypertension, Musculoskeletal Disorder, Neurologic Disorder, Osteoarthritis (OA) Additional Family Medical History / Comment(s): Mother of motor neuron disease at the age of 78yrs. General Exam - General Exam Comments Initial Comments: GENERAL: Patient is well-developed and well-nourished. Patient is nontoxic and well- hydrated and is in mild distress. ENT: Neck is soft and supple. No significant lymphadenopathy is noted. Oropharynx is clear. Dry mucous membranes. Neck has full range of motion without eliciting any pain. EYES: The sclera were anicteric and conjunctiva were pink and moist. Extraocular movements were intact and pupils were equal round and reactive to light. Eyelids were unremarkable. PULMONARY: Unlabored respirations. Good breath sounds bilaterally. No audible rales rhonchi or wheezing was noted. CARDIOVASCULAR: There is a regular rate and rhythm without any murmurs gallops or rubs. ABDOMEN: Soft and nontender with normal bowel sounds. SKIN: Skin is clear with no lesions or rashes and otherwise unremarkable. NEUROLOGIC: Patient is alert and oriented x3. Cranial nerves II through XII are grossly intact. Motor and sensory are also intact. Normal speech, volume and content. Symmetrical smile. MUSCULOSKELETAL: Normal extremities with adequate strength and full range of motion. LYMPHATICS: No significant lymphadenopathy is noted PSYCHIATRIC: Normal psychiatric evaluation. Limitations: no limitations Course Vital Signs 09/12/20 08:22 Temperature 98.3 F Pulse Rate 95 Respiratory 17 Rate Blood Pressure 138/90 O2 Sat by Pulse 95 Oximetry Medical Decision Making - Medical Decision Making [facility] admitted the patient wrote admitting orders. I put the patient on Ativan protocol for alcohol withdrawal. - Lab Data Result diagrams: 09/12/20 08:57 09/12/20 08:57 Lab Results 09/12/20 09/12/20 Range/Units 08:57 08:57 WBC 5.3 (3.8-10.6) k/uL RBC 4.45 (4.30-5.90) m/uL Hgb 13.8 (13.0-17.5) gm/dL Hct 41.7 (39.0-53.0) % MCV 93.7 (80.0-100.0) fL MCH 30.9 (25.0-35.0) pg MCHC 33.0 (31.0-37.0) g/dL RDW 14.2 (11.5-15.5) % Plt Count 232 (150-450) k/uL MPV 7.0 Neutrophils % 44 % Lymphocytes % 45 % Monocytes % 6 % Eosinophils % 1 % Basophils % 0 % Neutrophils # 2.4 (1.3-7.7) k/uL Lymphocytes # 2.4 (1.0-4.8) k/uL Monocytes # 0.3 (0-1.0) k/uL Eosinophils # 0.0 (0-0.7) k/uL Basophils # 0.0 (0-0.2) k/uL Sodium 143 (137-145) mmol/L Potassium 4.7 (3.5-5.1) mmol/L Chloride 104 (98-107) mmol/L Carbon Dioxide 25 (22-30) mmol/L Anion Gap 14 mmol/L BUN 20 (9-20) mg/dL Creatinine 0.98 (0.66-1.25) mg/dL Est GFR (CKD-EPI)AfAm >90 (>60 ml/min/1.73 sqM) Est GFR (CKD-EPI)NonAf >90 (>60 ml/min/1.73 sqM) Glucose 81 (74-99) mg/dL Calcium 8.8 (8.4-10.2) mg/dL Magnesium 1.5 L (1.6-2.3) mg/dL Total Bilirubin 0.6 (0.2-1.3) mg/dL AST 118 H (17-59) U/L ALT 70 H (4-49) U/L Alkaline Phosphatase 56 (38-126) U/L Total Protein 7.2 (6.3-8.2) g/dL Albumin 4.7 (3.5-5.0) g/dL Serum Alcohol 323 H* mg/dL Disposition Clinical Impression: Alcohol intoxication Disposition: ADMITTED IP TO THIS HOSP Referrals: Veena Bynum DO [Primary Care Provider] - 1-2 days Time of Disposition: 09:59
[2020-09-12 09:07] LABS: Basophils % (A) 0 %; Eosinophils % (A) 1 %; HCT 41.7 % (39.0-53.0); HGB 13.8 gm/dL (13.0-17.5); Lymphocytes # (A) 2.4 k/uL (1.0-4.8); Lymphocytes % (A) 45 %; MCH 30.9 pg (25.0-35.0); MCV 93.7 fL (80.0-100.0); Monocytes # (A) 0.3 k/uL (0-1.0); Monocytes % (A) 6 %; Neutrophils # (A) 2.4 k/uL (1.3-7.7); Neutrophils % (A) 44 %; Platelet Count 232 k/uL (150-450); RBC 4.45 m/uL (4.30-5.90); RDW 14.2 % (11.5-15.5); WBC 5.3 k/uL (3.8-10.6)
[2020-09-12 09:29] LABS: ALT 70 U/L (4-49); AST 118 U/L (17-59); African American GFR (CKD) >90 (>60 ml/min/1.73 sqM); Albumin 4.7 g/dL (3.5-5.0); Alkaline Phosphatase 56 U/L (38-126); Anion Gap 14 mmol/L; Blood Urea Nitrogen 20 mg/dL (9-20); Calcium 8.8 mg/dL (8.4-10.2); Carbon Dioxide 25 mmol/L (22-30); Chloride 104 mmol/L (98-107); Glucose 81 mg/dL (74-99); Magnesium 1.5 mg/dL (1.6-2.3); Non-African American GFR(CKD) >90 (>60 ml/min/1.73 sqM); Potassium 4.7 mmol/L (3.5-5.1); Sodium 143 mmol/L (137-145); Total Bilirubin 0.6 mg/dL (0.2-1.3); Total Protein 7.2 g/dL (6.3-8.2)
[2020-09-12] MEDS ORDERED: SODIUM CHLORIDE 0.9% 1,000 ML with MVI, ADULT NO.4 WITH VIT K 10 ML, THIAMINE 100 MG, F... IV ONE ×4 (09:30)
[2020-09-12 09:49] LABS: Alcohol 323 mg/dL
[2020-09-12] MEDS ORDERED: THIAMINE 100 MG/ML 2 ML VIAL IM STA (10:02)
[2020-09-12] MEDS ORDERED: LORazepam 2 MG/ML INJ IV PRN ×2 (10:02)
[2020-09-12] MEDS: MAGNESIUM SULFATE-D5W PMX 1 GM in DEXTROSE/WATER 1 100ML.BAG IVPB SCH ×2 (11:18→12:38)
[2020-09-12] MEDS: LORazepam 2 MG/ML INJ IV PRN ×4 (13:04→22:48)
[2020-09-12] MEDS: THIAMINE 100 MG TAB PO SCH (17:21)
[2020-09-12] MEDS ORDERED: FLUTICASONE 50MCG/SPRAY NASAL 16GM EA NOSTRIL PRN (19:53)
[2020-09-12] MEDS ORDERED: ALBUTEROL HFA INHALER INHALATION PRN (19:53)
[2020-09-12] MEDS ORDERED: Magnesium Replacement Protocol 1 EACH MISC MISCELLANE PRN (19:55)
[2020-09-12] MEDS ORDERED: Potassium Replacement Protocol 1 EACH MISC MISCELLANE PRN (19:55)
[2020-09-12] MEDS: ACETAMINOPHEN TAB 500 MG TAB PO PRN (20:30)
--- NOTE | 2020-09-12 21:46 | HP ---
HISTORY AND PHYSICAL DATE OF SERVICE: 09/12/2020. CHIEF COMPLAINT: Alcoholism and withdrawal. HISTORY OF PRESENT ILLNESS: This 45-year-old gentleman with a past medical history of multiple medical problems, including GERD, GI bleed, hypertension, history of DJD, history of pneumonia, seizure disorder, history of anxiety, depression, being followed by Dr. Bynum in the outpatient setting, was admitted with alcohol withdrawal symptoms. Patient drank a significant 5th of alcohol. The patient had some drinks last night, but today the patient had shaking uncontrollable and the patient had some nausea, vomiting. Patient came to [facility] and admitted for evaluation and treatment. Patient has had multiple admissions and patient has been to alcohol rehab also previously. There is no history of fever, rigors or chills. No history of headache, loss of consciousness, seizures. PAST MEDICAL HISTORY: GERD, GI bleed, hypertension, DJD, history of pneumonia, seizure disorder. MEDICATIONS: Home medications are: Trazodone, Catapres, Librium, vitamin B1, Protonix. Magnesium oxide, Neurontin, Flonase, MagneBind, Tylenol, Campral and Xanax. ALLERGIES: CEPHALOSPORIN, BENADRYL, DEPAKOTE, ROCEPHIN, KEFLEX, LISINOPRIL. FAMILY HISTORY: History of dementia, neuropathy; Parkinson's. SOCIAL HISTORY: Previous history of smoking, alcohol currently as mentioned earlier. REVIEW OF SYSTEMS: ENT: No diminished vision. No diminished hearing. Cardio system: No angina. No palpitations. Respiratory is no cough, hemoptysis. GI as mentioned earlier. : No dysuria. NERVOUS SYSTEM: As mentioned earlier. ALLERGY/IMMUNOLOGY: No asthma, hayfever. MUSCULOSKELETAL: As mentioned earlier. HEMATOLOGY/ONCOLOGY: No history of anemia. ENDOCRINE: No diabetes or hypothyroidism. CONSTITUTIONAL: As mentioned earlier. DERMATOLOGY: Negative. RHEUMATOLOGY negative. PSYCHIATRY as mentioned earlier. PHYSICAL EXAMINATION: Alert and oriented times three. Pulse is 93. Blood pressure 130/84, respiration 18, temperature 98.2, pulse ox 98% on room air. HEENT is conjunctivae normal. NECK: No JVD. CARDIOVASCULAR: S1, S2 muffled. RESPIRATION: Breath sounds diminished in the bases. No rhonchi. No crackles. ABDOMEN: Soft. Nontender. LEGS are no edema. No swelling. NERVOUS SYSTEM: Higher functions as mentioned earlier. Slightly ataxic gait and diffuse tremors also present. Tone is normal. SKIN: No ulcers, rashes or bleeding. JOINTS: No active deforming arthropathy. LYMPHATICS: No lymph nodes palpable in the neck, axillae or groin. LABS: CBC within normal limits and magnesium 1.5. AST is 118, ALT 70. Alcohol is 323. ASSESSMENT: 1. Acute alcohol intoxication as alcohol withdrawals and early delirium tremens. 2. Increased AST/ALT with acute alcoholic hepatitis. 3. Hypomagnesemia. 4. History of gastrointestinal bleed. 5. Hypertension. 6. History of degenerative joint disease. 7. History pneumonia. 8. Seizure disorder. 9. Obstructive sleep apnea. 10.History of alcoholic seizures. 11.History of appendectomy. 12.History of back surgery. 13.History of anxiety/depression. 14.History of THC. 15.Obesity with body mass index 35.6. RECOMMENDATIONS AND DISCUSSION: In this 45-year-old gentleman who presented with multiple complex medical issues, we will monitor the patient closely, continue the current medications, management and symptomatic treatment. We will continue with CIWA protocol. Supplement vitamins. foster care social worker and child support case officer to arrange for outpatient alcohol rehab. Prognosis extremely guarded because of multiple complex medical issues. Resume the home medications. A copy of this dictation being forwarded to Dr. Bynum who is the primary physician. MMMONYL / ASHOK: [id number] /
[2020-09-12] MEDS: ACAMPROSATE CALCIUM 333 MG TABLET.DR PO SCH (21:55)
[2020-09-12] MEDS: GABAPENTIN 300 MG CAP PO SCH (21:55)
[2020-09-12] MEDS: MAGNESIUM OXIDE 400 MG TAB PO SCH (21:55)
[2020-09-12] MEDS: traZODone HCL 100 MG TAB PO SCH (21:55)
[2020-09-12] MEDS: cloNIDine HCL 0.1 MG TAB PO SCH (21:55)
[2020-09-12] MEDS: chlordiazePOXIDE 25 MG CAP PO SCH (21:55)
[2020-09-13] MEDS: LORazepam 2 MG/ML INJ IV PRN ×7 (01:12→19:59)
[2020-09-13] MEDS ORDERED: PANTOPRAZOLE 40 MG TABLET PO PRN (07:30)
[2020-09-13] MEDS: ACAMPROSATE CALCIUM 333 MG TABLET.DR PO SCH ×3 (08:49→21:15)
[2020-09-13] MEDS: cloNIDine HCL 0.1 MG TAB PO SCH ×3 (08:49→21:16)
[2020-09-13] MEDS: CALCIUM CARB-MAG CARB-FOLIC 1 EACH TAB PO SCH ×2 (08:49→16:56)
[2020-09-13] MEDS: GABAPENTIN 300 MG CAP PO SCH ×3 (08:49→21:16)
[2020-09-13] MEDS: THIAMINE 100 MG TAB PO SCH ×2 (08:49→16:56)
[2020-09-13] MEDS: MAGNESIUM OXIDE 400 MG TAB PO SCH ×2 (08:49→20:00)
[2020-09-13] MEDS: LOSARTAN 50 MG TAB PO SCH (08:50)
[2020-09-13] MEDS: chlordiazePOXIDE 25 MG CAP PO SCH ×4 (08:50→21:16)
[2020-09-13] MEDS: FOLIC ACID 1 MG TAB PO SCH (08:50)
[2020-09-13 11:04] LABS: Basophils # (A) 0.02 X 10*3/uL (0.00-0.10); Basophils % (A) 0.5 %; Eosinophils # (A) 0.02 X 10*3/uL (0.04-0.35); Eosinophils % (A) 0.5 %; HCT 37.6 % (39.6-50.0); HGB 12.4 g/dL (13.0-17.0); Lymphocytes # (A) 0.86 X 10*3/uL (0.90-5.00); Lymphocytes % (A) 22.2 %; Mean Platelet Volume 9.7 fL (9.5-12.2); Monocytes # (A) 0.38 X 10*3/uL (0.20-1.00); Monocytes % (A) 9.8 %; Neutrophils # (A) 2.58 X 10*3/uL (1.80-7.70); Neutrophils % (A) 66.7 %; Platelet Count 149 X 10*3/uL (140-440); RDW 13.3 % (11.5-14.5); WBC 3.87 X 10*3/uL (4.50-10.00)
[2020-09-13 11:36] LABS: African American GFR (CKD) 123.3 (60.0-200.0); Albumin/Globulin Ratio 2.5 (1.60-3.17); Anion Gap 10.5 mmol/L (4.00-12.00); BUN/Creat Ratio 22.5 Ratio (12.00-20.00); Calcium 8.6 mg/dL (8.7-10.3); Carbon Dioxide 26.5 mmol/L (21.6-31.8); Globulin 1.6 g/dL (1.6-3.3); Magnesium 1.5 mg/dL (1.5-2.4); Non-African American GFR(CKD) 106.4 (60.0-200.0); Total Bilirubin 1.4 mg/dL (0.2-1.2); Total Protein 5.6 g/dL (6.2-8.2)
--- NOTE | 2020-09-13 14:18 | PN ---
PROGRESS NOTE DATE OF SERVICE: 09/13/2020 This 45-year-old gentleman admitted with alcohol withdrawal had significant tremors and DTs also. The patient is being closely monitored. The patient's white count is 3.8, hemoglobin 12.4. Alcohol is 323. Magnesium is 1.5. PAST MEDICAL HISTORY: Reviewed. REVIEW OF SYSTEMS: CARDIOVASCULAR SYSTEM: No angina. RESPIRATORY SYSTEM: As mentioned earlier. GI: As mentioned earlier. : No dysuria. NERVOUS SYSTEM: As mentioned earlier. CURRENT MEDICATIONS: Current medications are reviewed and include Campral, Tylenol, Xanax, MagneBind, Catapres, Flonase. PHYSICAL EXAMINATION: Patient is alert and oriented x2. Pulse 88, blood pressure 138/79, respiration 22, temperature 98 degrees, pulse ox 94% on room air. HEENT: Conjunctivae normal. NECK: No jugular venous distention. CARDIOVASCULAR: S1, S2 muffled. RESPIRATORY: Breath sounds diminished at the bases. Scattered rhonchi. ABDOMEN: Soft. LEGS: No edema, no swelling. NERVOUS SYSTEM: Diffusely weak and tremors. LABS: WBC 3.87, hemoglobin 12.4. Total bilirubin is 1.4. AST 73. COVID-19 is negative. ASSESSMENT: 1. Acute alcohol intoxication with alcohol withdrawal and early delirium tremens. 2. Change in mental status, metabolic encephalopathy with acute metabolic encephalopathy. 3. Hypomagnesemia. 4. Increased AST, ALT with acute alcoholic hepatitis. 5. History of gastrointestinal bleed. 6. Hypertension. 7. History of degenerative joint disease. 8. History of pneumonia. 9. History of seizure disorder. 10.Obstructive sleep apnea. 11.History of alcoholic seizures. 12.History of appendectomy. 13.History of back surgery. 14.History of anxiety, depression. 15.History of THC. 16.Obesity with body mass index of 35.6. 17.Mild leukopenia. 18.Mild anemia possibly secondary to alcohol. RECOMMENDATIONS AND DISCUSSION: This 45-year-old gentleman who presented with multiple complex medical issues, will monitor the patient closely. Repeat labs. I would also recommend UA with micro and chest x-ray to complete the workup. Continue with CIWA protocol. Continue with supplement vitamins. I would also recommend PT, OT evaluation also. Further recommendations to follow. Fall precautions. MMODL / IJN: [id number] /
[2020-09-13 14:25] VITALS: BMI 35.6
--- NOTE | 2020-09-13 14:30 | XR ---
EXAMINATION TYPE: XR chest 1V portable DATE OF EXAM: 09/13/2020 COMPARISON: Chest x-ray 06/13/2020 HISTORY: Pneumonia TECHNIQUE: Single frontal view of the chest is obtained. FINDINGS: There is no focal air space opacity, pleural effusion, or pneumothorax seen. The cardiac silhouette size is within normal limits. There is elevation of right hemidiaphragm. The osseous stru ctures are intact. IMPRESSION: No acute process.
[2020-09-13 17:44] LABS: Appearance,Urine Clear (Clear); Bilirubin,Urine Negative (Negative); Blood,Urine Negative (Negative); Color,Urine Yellow; Glucose,Urine (UA) Negative (Negative); Ketones,Urine Negative (Negative); Leukocyte Esterase,Urine Negative (Negative); Nitrite,Urine Negative (Negative); Protein,Urine Negative (Negative); Specific Gravity,Urine 1.016 (1.001-1.035); Urobilinogen,Urine <2.0 mg/dL (<2.0)
[2020-09-13] MEDS ORDERED: LOPERAMIDE 2 MG CAP PO PRN (18:31)
[2020-09-13] MEDS: traZODone HCL 100 MG TAB PO SCH (20:00)
[2020-09-14] MEDS: LORazepam 2 MG/ML INJ IV PRN ×6 (01:39→20:26)
[2020-09-14] MEDS: FOLIC ACID 1 MG TAB PO SCH (07:26)
[2020-09-14] MEDS: GABAPENTIN 300 MG CAP PO SCH ×3 (07:26→21:18)
[2020-09-14] MEDS: chlordiazePOXIDE 25 MG CAP PO SCH ×4 (07:27→21:18)
[2020-09-14] MEDS: LOSARTAN 50 MG TAB PO SCH (07:27)
[2020-09-14] MEDS: cloNIDine HCL 0.1 MG TAB PO SCH ×3 (07:27→21:18)
[2020-09-14] MEDS: CALCIUM CARB-MAG CARB-FOLIC 1 EACH TAB PO SCH ×2 (07:27→16:58)
[2020-09-14] MEDS: THIAMINE 100 MG TAB PO SCH ×2 (07:27→16:58)
[2020-09-14] MEDS: MAGNESIUM OXIDE 400 MG TAB PO SCH ×2 (07:28→20:26)
[2020-09-14] MEDS: ACAMPROSATE CALCIUM 333 MG TABLET.DR PO SCH ×3 (07:28→21:18)
[2020-09-14] MEDS: ALPRAZolam 1 MG TAB PO PRN (09:34)
[2020-09-14 11:30] LABS: Basophils # (A) 0.01 X 10*3/uL (0.00-0.10); Basophils % (A) 0.3 %; Eosinophils # (A) 0.07 X 10*3/uL (0.04-0.35); Eosinophils % (A) 1.8 %; HGB 11.7 g/dL (13.0-17.0); Lymphocytes # (A) 1.72 X 10*3/uL (0.90-5.00); Lymphocytes % (A) 43.4 %; MCH 30.6 pg (27.0-32.0); MCHC 32.5 g/dL (32.0-37.0); MCV 94.2 fL (80.0-97.0); Mean Platelet Volume 9.9 fL (9.5-12.2); Monocytes # (A) 0.52 X 10*3/uL (0.20-1.00); Monocytes % (A) 13.1 %; Neutrophils # (A) 1.63 X 10*3/uL (1.80-7.70); Neutrophils % (A) 41.1 %; Platelet Count 158 X 10*3/uL (140-440); RBC 3.82 X 10*6/uL (4.40-5.60); RDW 13.2 % (11.5-14.5); WBC 3.96 X 10*3/uL (4.50-10.00)
[2020-09-14 11:51] LABS: African American GFR (CKD) 130.2 (60.0-200.0); Albumin/Globulin Ratio 2.67 (1.60-3.17); Anion Gap 5.5 mmol/L (4.00-12.00); BUN/Creat Ratio 15.71 Ratio (12.00-20.00); Calcium 8.6 mg/dL (8.7-10.3); Carbon Dioxide 30.5 mmol/L (21.6-31.8); Globulin 1.5 g/dL (1.6-3.3); Non-African American GFR(CKD) 112.4 (60.0-200.0); Potassium 4.3 mmol/L (3.5-5.5); Total Bilirubin 0.7 mg/dL (0.3-1.2); Total Protein 5.5 g/dL (6.2-8.2)
--- NOTE | 2020-09-14 19:41 | PN ---
PROGRESS NOTE DATE OF SERVICE: 09/14/2020 This 45-year-old gentleman admitted with alcohol withdrawal and severe delirium tremens is being closely monitored. No chest pain. No palpitations. No fever. PHYSICAL EXAMINATION: Alert and oriented x2. Pulse 59, blood pressure 118/72, respirations 16, temperature 97.7, pulse ox 98% on room air. HEENT: Conjunctivae normal. NECK: No jugular venous distention. CARDIOVASCULAR SYSTEM: S1, S2 muffled. RESPIRATORY SYSTEM: Breath sounds diminished at the bases. No rhonchi. No crackles. ABDOMEN: Soft, non-tender. LEGS: No edema. No swelling. NERVOUS SYSTEM: No focal deficit. LABS: WBC 3.2, hemoglobin 11.7. Other labs are noted. ASSESSMENT: 1. Acute alcohol intoxication, acute alcohol withdrawal and acute delirium tremens. 2. Change in mental status, acute metabolic encephalopathy. 3. Hypomagnesemia. 4. Increased AST and ALT with acute alcoholic hepatitis. 5. History of gastrointestinal bleed. 6. History of hypertension. 7. History of degenerative joint disease. 8. History of pneumonia. 9. History of seizure disorder. 10.Obstructive sleep apnea. 11.History of alcoholic seizures. 12.History of appendectomy. 13.History of back surgery. 14.Anxiety, depression. 15.History of tetrahydrocannabinol. 16.Obesity with body mass index of 34.6. 17.Mild leukopenia. 18.Mild anemia, possibly secondary to alcohol. RECOMMENDATIONS AND DISCUSSION: I recommend to continue current medications, continue with the monitoring, symptomatic treatment. Continue with Ativan. Continue with supplemental vitamins. Increase ambulation. Guarded prognosis. Further recommendations to follow. MMODL / IJN: [id number] /
[2020-09-14] MEDS: traZODone HCL 100 MG TAB PO SCH (20:26)
[2020-09-15] MEDS: LORazepam 2 MG/ML INJ IV PRN ×5 (01:35→19:47)
[2020-09-15] MEDS: ACETAMINOPHEN TAB 500 MG TAB PO PRN (01:38)
[2020-09-15 08:56] LABS: Basophils # (A) 0.02 X 10*3/uL (0.00-0.10); Basophils % (A) 0.4 %; Eosinophils # (A) 0.06 X 10*3/uL (0.04-0.35); Eosinophils % (A) 1.3 %; HCT 36.3 % (39.6-50.0); HGB 11.8 g/dL (13.0-17.0); Lymphocytes % (A) 49.4 %; MCH 30.8 pg (27.0-32.0); MCHC 32.5 g/dL (32.0-37.0); MCV 94.8 fL (80.0-97.0); Mean Platelet Volume 10.3 fL (9.5-12.2); Monocytes # (A) 0.52 X 10*3/uL (0.20-1.00); Monocytes % (A) 11.2 %; Neutrophils # (A) 1.75 X 10*3/uL (1.80-7.70); Neutrophils % (A) 37.5 %; Platelet Count 156 X 10*3/uL (140-440); RBC 3.83 X 10*6/uL (4.40-5.60); RDW 13.2 % (11.5-14.5); WBC 4.66 X 10*3/uL (4.50-10.00)
[2020-09-15 09:23] LABS: African American GFR (CKD) 130.2 (60.0-200.0); Albumin/Globulin Ratio 2.35 (1.60-3.17); Anion Gap 6.8 mmol/L (4.00-12.00); BUN/Creat Ratio 22.86 Ratio (12.00-20.00); Carbon Dioxide 27.2 mmol/L (21.6-31.8); Globulin 1.7 g/dL (1.6-3.3); Non-African American GFR(CKD) 112.4 (60.0-200.0); Potassium 4.4 mmol/L (3.5-5.5); Total Bilirubin 0.6 mg/dL (0.2-1.2); Total Protein 5.7 g/dL (6.2-8.2)
[2020-09-15] MEDS: cloNIDine HCL 0.1 MG TAB PO SCH ×3 (10:39→21:07)
[2020-09-15] MEDS: CALCIUM CARB-MAG CARB-FOLIC 1 EACH TAB PO SCH ×2 (10:39→17:22)
[2020-09-15] MEDS: FOLIC ACID 1 MG TAB PO SCH (10:39)
[2020-09-15] MEDS: chlordiazePOXIDE 25 MG CAP PO SCH ×4 (10:39→21:06)
[2020-09-15] MEDS: ACAMPROSATE CALCIUM 333 MG TABLET.DR PO SCH ×2 (10:40→17:22)
[2020-09-15] MEDS: MAGNESIUM OXIDE 400 MG TAB PO SCH ×2 (10:40→21:06)
[2020-09-15] MEDS: GABAPENTIN 300 MG CAP PO SCH ×3 (10:40→21:06)
[2020-09-15] MEDS: LOSARTAN 50 MG TAB PO SCH (10:40)
[2020-09-15] MEDS: THIAMINE 100 MG TAB PO SCH ×2 (10:40→17:21)
[2020-09-15] MEDS: ALPRAZolam 1 MG TAB PO PRN (14:36)
--- NOTE | 2020-09-15 18:59 | PN ---
PROGRESS NOTE DATE OF SERVICE: 09/15/2020. This 45 gentleman with the past medical history of alcoholism, admitted with acute alcohol withdrawal and acute DTs. The patient is extremely tremulous. The patient has some gait dysfunction also. Chest x-ray showed no evidence of pneumonia. PAST MEDICAL HISTORY: Reviewed. PHYSICAL EXAM: Alert and oriented x3. The pulse is 51, blood pressure 133/83, respirations 16, temperature 97.2, pulse ox 97% on room air. HEENT: Conjunctivae normal. Oral mucosa moist. NECK: No jugular venous distention. No lymph node enlargement. CARDIOVASCULAR: S1, S2, muffled. No S3, no S4, RESPIRATORY: Diminished breath sounds at the bases. A few scattered rhonchi and crackles. ABDOMEN: Soft, nontender. LEGS: No edema, no swelling. NERVOUS SYSTEM: No focal motor or sensory deficits. LABS: At this time shows WBC 4.2, hemoglobin 7.8. ASSESSMENT: 1. Acute alcohol intoxication with acute alcohol withdrawal and acute delirium tremens. 2. Change in mental status, acute metabolic encephalopathy. 3. Hypomagnesemia. 4. Increased AST ALT with acute alcoholic hepatitis. 5. History of gastrointestinal bleed. 6. History of hypertension. 7. History of degenerative joint disease. 8. History of pneumonia. 9. History of seizure disorder. 10.Obstructive sleep apnea. 11.History of alcoholic seizures. 12.History of appendectomy. 13.History of back surgery. 14.Anxiety, depression. 15.History of THC. 16.Obesity with body mass index 34.6. 17.Mild leukopenia. 18.Bradycardia. 19.Anemia possibly secondary to alcohol. RECOMMENDATIONS AND DISCUSSION: I recommend to continue current medications, symptomatic treatment. Recommend to continue with Ativan for any DT precautions, seizure precautions. I would also recommend an EKG. Guarded prognosis. Further recommendations to follow. MMODL / IJN: [id number] /
[2020-09-15] MEDS: traZODone HCL 100 MG TAB PO SCH (21:07)
[2020-09-16] MEDS: ACAMPROSATE CALCIUM 333 MG TABLET.DR PO SCH ×4 (01:21→22:12)
[2020-09-16] MEDS: LORazepam 2 MG/ML INJ IV PRN ×3 (01:59→09:54)
[2020-09-16] MEDS: cloNIDine HCL 0.1 MG TAB PO SCH ×3 (09:52→22:12)
[2020-09-16] MEDS: GABAPENTIN 300 MG CAP PO SCH ×3 (09:52→22:11)
[2020-09-16] MEDS: LOSARTAN 50 MG TAB PO SCH (09:52)
[2020-09-16] MEDS: FOLIC ACID 1 MG TAB PO SCH (09:52)
[2020-09-16] MEDS: CALCIUM CARB-MAG CARB-FOLIC 1 EACH TAB PO SCH ×2 (09:52→18:18)
[2020-09-16] MEDS: THIAMINE 100 MG TAB PO SCH ×2 (09:52→18:18)
[2020-09-16] MEDS: chlordiazePOXIDE 25 MG CAP PO SCH ×4 (09:52→22:11)
[2020-09-16] MEDS: MAGNESIUM OXIDE 400 MG TAB PO SCH ×2 (09:53→22:12)
[2020-09-16] MEDS: ALPRAZolam 1 MG TAB PO PRN (13:02)
[2020-09-16] MEDS: ACETAMINOPHEN TAB 500 MG TAB PO PRN (19:46)
--- NOTE | 2020-09-16 21:58 | PN ---
PROGRESS NOTE DATE OF SERVICE: 09/16/2020 This 45-year-old gentleman who was admitted with acute alcohol intoxication as well as acute delirium tremens being closely monitored. No chest pain. No palpitations. No fever. The patient has some tremors. Some gait dysfunction. PHYSICAL EXAMINATION: Alert and oriented times three. Pulse 71, blood pressure 123/73, respirations 17, temperature 97.7, pulse ox 100 percent on room air. HEENT: Conjunctivae normal. NECK: No JVD. CARDIOVASCULAR: S1, S2 muffled. RESPIRATORY: Breath sounds diminished in the bases. No rhonchi. No crackles. ABDOMEN: Soft. Nontender. NERVOUS SYSTEM: No focal deficits. LABS: WBC 4.7, hemoglobin 11.8. Other labs are noted. ASSESSMENT: 1. Acute alcohol intoxication with acute delirium tremens. 2. Change in mental status, acute metabolic encephalopathy. 3. Hypomagnesemia. 4. Increased AST/ALT with acute alcoholic hepatitis. 5. History of gastrointestinal bleed. 6. History of hypertension. 7. History of degenerative joint disease. 8. History of pneumonia. 9. History of seizure disorder. 10.Obstructive sleep apnea. 11.History of alcoholic seizures. 12.Appendectomy. 13.History of back surgery. 14.History of depression. 15.History of THC. 16.Obesity with body mass index 34.2. 17.Mild leukopenia. 18.Bradycardia. 19.Anemia possibly secondary to EtOH. RECOMMENDATIONS AND DISCUSSION: Recommend to continue current medications, management, symptomatic treatment. Monitor, PT/OT evaluation. Increase ambulation. Otherwise, continue with [facility] protocol. Recommend alcohol rehab after discharge. The patient also reports that last time when he was discharged, he was only at the rehab 19 days including 5 days of initial detox and the insurance will not cover for more. Social Work and Case Management to follow. Guarded prognosis. Further recommendations to follow. MMODL / IJN: [id number] /
[2020-09-16] MEDS: traZODone HCL 100 MG TAB PO SCH (22:11)
[2020-09-17] MEDS: ALPRAZolam 1 MG TAB PO PRN ×2 (00:32→13:54)
[2020-09-17 05:40] VITALS: RESP 18
[2020-09-17] MEDS: ACAMPROSATE CALCIUM 333 MG TABLET.DR PO SCH (09:34)
[2020-09-17] MEDS: chlordiazePOXIDE 25 MG CAP PO SCH ×2 (09:34→14:08)
[2020-09-17] MEDS: FOLIC ACID 1 MG TAB PO SCH (09:34)
[2020-09-17] MEDS: GABAPENTIN 300 MG CAP PO SCH (09:34)
[2020-09-17] MEDS: CALCIUM CARB-MAG CARB-FOLIC 1 EACH TAB PO SCH (09:34)
[2020-09-17] MEDS: MAGNESIUM OXIDE 400 MG TAB PO SCH (09:34)
[2020-09-17] MEDS: THIAMINE 100 MG TAB PO SCH (09:34)
[2020-09-17] MEDS: LOSARTAN 50 MG TAB PO SCH (09:34)
[2020-09-17] MEDS: cloNIDine HCL 0.1 MG TAB PO SCH (11:25)
[2020-09-17 11:52] VITALS: BP 107/68; PULSE 56; TEMP 97.7
--- NOTE | 2020-09-17 15:59 | DS ---
DISCHARGE SUMMARY DATE OF SERVICE: 09/18/2020 FINAL DIAGNOSES: 1. Acute alcohol intoxication with acute delirium tremens. 2. Change in mental status, acute metabolic encephalopathy from delirium tremens. 3. Hypomagnesemia. 4. Increased AST, ALT, with acute alcoholic hepatitis. 5. History of gastrointestinal bleed. 6. History of hypertension. 7. History of degenerative joint disease. 8. History of pneumonia. 9. History of seizure disorder. 10.Obstructive sleep apnea. 11.History of alcoholic seizures. 12.Appendectomy. 13.History of back surgery. 14.History of depression. 15.History of tetrahydrocannabinol. 16.Obesity with body mass index of 34.2. 17.Mild leukopenia. 18.Bradycardia. 19.Anemia, possibly secondary to ETOH. DISCHARGE DISPOSITION: The patient will be discharged in stable condition with guarded prognosis. HISTORY OF PRESENT ILLNESS: This 45-year-old gentleman with a past medical history of multiple medical problems was admitted with acute alcohol intoxication and acute delirium tremens. The patient was treated symptomatically. The patient improved significantly. The patient was recommended to go to alcohol rehab. The patient went last time only for 2 weeks, according to him. The might require a longer stint of alcohol rehab to ensure sobriety. Also recommend following with AA as well. On exam, vitals are stable. CARDIOVASCULAR SYSTEM: S1, S2 muffled. ABDOMEN: Soft. NERVOUS SYSTEM: No focal deficit. DISCHARGE ADVICE AND MEDICATIONS: 1. Diet is cardiac. 2. Activity limited until followup. 3. Follow up with Dr. Bynum in 1-2 days. 4. Desyrel 100 mg at bedtime. 5. Fluticasone 2 sprays p.r.n. 6. Losartan 50 mg daily. 7. Calcium carbonate 1 p.o. b.i.d. 8. Neurontin 600 mg t.i.d. 9. Protonix 40 mg daily. 10.Tylenol 500 mg daily. 11.Albuterol 1-2 puffs q.6 p.r.n. 12.Ativan 1 mg t.i.d. p.r.n. 13.Campral mg p.o. t.i.d. 14.Catapres 0.1 mg t.i.d. 15.Folic acid 1 mg daily. 16.Librium 25 mg q.i.d. 17.Magnesium oxide 400 mg t.i.d. 18.Vitamin thiamine 100 mg b.i.d. 19.Xanax 1 mg b.i.d. p.r.n. Once again, the patient will be discharged in stable condition with guarded prognosis. NICK / ASHOK: [id number] / MTDD
== END 2020-09-17 14:50 | disposition home or self-care (01) | DRG 897 ==
LOC: EC 08:17 → 5NMEDONC 10:01
PROVIDERS: ADMIT Hospitalist; ATTEND Hospitalist
DX: F10.231 Alcohol dependence with withdrawal delirium (principal); F10.221 Alcohol dependence with intoxication delirium; D63.8 Anemia in other chronic diseases classified elsewhere; K70.10 Alcoholic hepatitis without ascites; E66.9 Obesity, unspecified; G40.909 Epilepsy, unspecified, not intractable, without status epilepticus; Z20.822 Contact with and (suspected) exposure to COVID-19; Y90.8 Blood alcohol level of 240 mg/100 ml or more; E83.42 Hypomagnesemia; Z68.35 Body mass index [BMI] 35.0-35.9, adult; F41.9 Anxiety disorder, unspecified; I10 Essential (primary) hypertension; K21.9 Gastro-esophageal reflux disease without esophagitis; G47.33 Obstructive sleep apnea (adult) (pediatric); I83.93 Asymptomatic varicose veins of bilateral lower extremities; M47.819 Spondylosis without myelopathy or radiculopathy, site unspecified; M48.00 Spinal stenosis, site unspecified; F17.200 Nicotine dependence, unspecified, uncomplicated; Z71.6 Tobacco abuse counseling; Z79.899 Other long term (current) drug therapy; Z87.01 Personal history of pneumonia (recurrent); Z90.49 Acquired absence of other specified parts of digestive tract; Z87.19 Personal history of other diseases of the digestive system; Z87.39 Personal history of other diseases of the musculoskeletal system and connective tissue; Z90.89 Acquired absence of other organs; Z71.3 Dietary counseling and surveillance; Z98.890 Other specified postprocedural states; Z88.1 Allergy status to other antibiotic agents; Z88.8 Allergy status to other drugs, medicaments and biological substances; Z82.0 Family history of epilepsy and other diseases of the nervous system; Z82.49 Family history of ischemic heart disease and other diseases of the circulatory system; Z81.8 Family history of other mental and behavioral disorders; Z80.8 Family history of malignant neoplasm of other organs or systems; Z82.61 Family history of arthritis; D72.819 Decreased white blood cell count, unspecified; R00.1 Bradycardia, unspecified; R26.9 Unspecified abnormalities of gait and mobility
CPT/HCPCS: 36415; 71045; 80053; 80320; 81003; 83735; 85025; 87324; 87635; 93005; 94760; 96365; 96375; 99285

== ENCOUNTER 2020-11-17 09:42 | Inpatient (IN) | payer OTHER ==
[2020-11-17] MEDS ORDERED: SODIUM CHLORIDE 0.9% 1,000 ML IV ONE ×2 (09:44→10:57)
[2020-11-17] MEDS ORDERED: SODIUM CHLORIDE 0.9% 1,000 ML with MVI, ADULT NO.4 WITH VIT K 10 ML, THIAMINE 100 MG, F... IV ONE ×4 (09:44)
--- NOTE | 2020-11-17 09:48 | ED ---
General Adult HPI - General Stated complaint: ETOH Time Seen by Provider: 11/17/20 09:42 Source: patient, RN notes reviewed, old records reviewed - History of Present Illness Initial comments: This is a 45-year-old male who presents emergency Department after having called EMS for difficulty breathing however when EMS arrived patient states he wanted help for alcoholism. Patient states he last drank at 7:00 this morning. Pat ient states he drinks vodka. Patient states he fell a couple days ago bruised up his elbows but he has full range of motion of her shoulders elbows wrists and hands. Patient denies hitting his head or neck. Patient states he takes Xanax but hasn't taken any today. Patient denies any chest pain difficult breathing or palpitations. Patient denies any recent fever chills or cough per patient denies any nausea vomiting or diarrhea. - Related Data Home Medications Medication Instructions Recorded Confirmed Losartan Potassium 50 mg PO DAILY 01/03/19 09/12/20 Pantoprazole Sodium 40 mg PO DAILY PRN 01/03/19 09/12/20 Gabapentin [Neurontin] 600 mg PO TID 03/04/19 09/12/20 Albuterol Inhaler [Ventolin Hfa 1 - 2 puff INHALATION RT-QID PRN 10/11/19 09/12/20 Inhaler] Fluticasone Nasal [place] [Flonase 2 spray EA NOSTRIL BID PRN 10/11/19 09/12/20 Nasal [place]] traZODone HCL [Desyrel] 100 mg PO HS 05/14/20 09/12/20 Acetaminophen Tab [Tylenol] 500 mg PO DAILY PRN 07/04/20 09/12/20 Calcium Carb-Mag Carb-Folic 1 tab PO AC-BID 08/29/20 09/12/20 [Magnebind 400] Previous Rx's Medication Instructions Recorded cloNIDine HCL [Catapres] 0.1 mg PO TID #90 tab 03/29/20 ALPRAZolam [Xanax] 1 mg PO BID PRN #10 tab 06/15/20 Acamprosate Calcium [Campral] 333 mg PO TID 30 Days #90 tablet. 06/15/20 Folic Acid 1 mg PO DAILY 30 Days #30 tab 07/12/20 Thiamine [Vitamin B-1] 100 mg PO BID-W/MEALS 30 Days #60 07/12/20 tab Magnesium Oxide [Mag-Ox] 400 mg PO TID 30 Days #90 tab 07/17/20 chlordiazePOXIDE HCl [Librium] 25 mg PO QID #16 capsule 08/29/20 LORazepam [Ativan] 1 mg PO TID PRN #10 tab 09/17/20 Allergies Allergy/AdvReac Type Severity Reaction Status Date / Time Cephalosporins Allergy Severe Anaphylaxis Verified 09/12/20 08:54 diphenhydramine HCl Allergy Severe Anaphylaxis Verified 09/12/20 08:54 [From Benadryl] divalproex sodium Allergy Severe Anaphylaxis Verified 09/12/20 08:54 [From Depakote] ceftriaxone [From Rocephin] Allergy Anaphylaxis Verified 09/12/20 08:54 cephalexin [From Keflex] Allergy Anaphylaxis Verified 09/12/20 08:54 lisinopril Allergy Anaphylaxis Verified 09/12/20 08:54 Review of Systems ROS Statement: Those systems with pertinent positive or pertinent negative responses have been documented in the HPI. ROS Other: All systems not noted in ROS Statement are negative. Past Medical History Past Medical History: GERD/Reflux, GI Bleed, Hypertension, Osteoarthritis (OA), Pneumonia, Seizure Disorder, Sleep Apnea/CPAP/BIPAP Additional Past Medical History / Comment(s): Occasional bilateral pedal edema if stands long, arthritis possibly in back/ribs, MILIND without device, ETOH abuse, alcoholic seizures/blackouts/fainting, alcoholic hepatitis, alcoholic gastritis, upper GI bleed, hypomagnesemia, spinal stenosis/herniated disc with surgery, bilateral varicose veins, hemorrhoids History of Any Multi-Drug Resistant Organisms: None Reported Past Surgical History: Appendectomy, Back Surgery, Tonsillectomy Additional Past Surgical History / Comment(s): bilateral discectomy, discectomy L5-S1, EGD Past Anesthesia/Blood Transfusion Reactions: Motion Sickness Smoking Status: Light tobacco smoker - Past Family History Father Family Medical History: Cancer, Dementia, Neurologic Disorder Additional Family Medical History / Comment(s): melanoma, parkinsons Mother Family Medical History: Hypertension, Musculoskeletal Disorder, Neurologic Disorder, Osteoarthritis (OA) Additional Family Medical History / Comment(s): Mother of motor neuron disease at the age of 78yrs. General Exam - General Exam Comments Initial Comments: GENERAL: Patient is well-developed and well-nourished. Patient is nontoxic and well- hydrated and is in mild distress. ENT: Neck is soft and supple. No significant lymphadenopathy is noted. Oropharynx is clear. Moist mucous membranes. Neck has full range of motion without eliciting any pain. EYES: The sclera were anicteric and conjunctiva were pink and moist. Extraocular movements were intact and pupils were equal round and reactive to light. Eyelids were unremarkable. PULMONARY: Unlabored respirations. Good breath sounds bilaterally. No audible rales rhonchi or wheezing was noted. CARDIOVASCULAR: There is a regular rate and rhythm without any murmurs gallops or rubs. ABDOMEN: Soft and nontender with normal bowel sounds. SKIN: Skin is clear with no lesions or rashes and otherwise unremarkable. NEUROLOGIC: Patient is alert and oriented x3. Cranial nerves II through XII are grossly intact. Motor and sensory are also intact. Normal speech, volume and content. Symmetrical smile. MUSCULOSKELETAL: Normal extremities with adequate strength and full range of motion. LYMPHATICS: No significant lymphadenopathy is noted PSYCHIATRIC: Normal psychiatric evaluation. Course Vital Signs 11/17/20 09:44 Temperature 97.6 F Pulse Rate 8 L Respiratory 16 Rate Blood Pressure 114/77 O2 Sat by Pulse 97 Oximetry Medical Decision Making - Medical Decision Making Patient's alcohol is 330. I spoke with Dr. barriga she agreed to admit the patient admitted the patient wrote admitting orders. - Lab Data Result diagrams: 11/17/20 10:07 11/17/20 10:07 Lab Results 11/17/20 11/17/20 Range/Units 10:07 10:07 WBC 7.8 (3.8-10.6) k/uL RBC 4.63 (4.30-5.90) m/uL Hgb 13.8 (13.0-17.5) gm/dL Hct 41.8 (39.0-53.0) % MCV 90.3 (80.0-100.0) fL MCH 29.7 (25.0-35.0) pg MCHC 32.9 (31.0-37.0) g/dL RDW 13.5 (11.5-15.5) % Plt Count 150 (150-450) k/uL MPV 7.3 Neutrophils % 60 % Lymphocytes % 34 % Monocytes % 3 % Eosinophils % 1 % Basophils % 0 % Neutrophils # 4.6 (1.3-7.7) k/uL Lymphocytes # 2.6 (1.0-4.8) k/uL Monocytes # 0.3 (0-1.0) k/uL Eosinophils # 0.1 (0-0.7) k/uL Basophils # 0.0 (0-0.2) k/uL Sodium 136 L (137-145) mmol/L Potassium 4.1 (3.5-5.1) mmol/L Chloride 95 L (98-107) mmol/L Carbon Dioxide 26 (22-30) mmol/L Anion Gap 15 mmol/L BUN 12 (9-20) mg/dL Creatinine 0.56 L (0.66-1.25) mg/dL Est GFR (CKD-EPI)AfAm >90 (>60 ml/min/1.73 sqM) Est GFR (CKD-EPI)NonAf >90 (>60 ml/min/1.73 sqM) Glucose 77 (74-99) mg/dL Calcium 8.4 (8.4-10.2) mg/dL Magnesium 1.5 L (1.6-2.3) mg/dL Total Bilirubin 2.6 H (0.2-1.3) mg/dL AST 120 H (17-59) U/L ALT 52 H (4-49) U/L Alkaline Phosphatase 62 (38-126) U/L Total Protein 6.5 (6.3-8.2) g/dL Albumin 4.3 (3.5-5.0) g/dL Serum Alcohol 330 H* mg/dL Disposition Clinical Impression: Alcohol intoxication Disposition: ADMITTED IP TO THIS HOSP Referrals: Veena Bynum DO [Primary Care Provider] - 1-2 days Time of Disposition: 10:57
[2020-11-17 10:20] LABS: Basophils % (A) 0 %; Eosinophils # (A) 0.1 k/uL (0-0.7); Eosinophils % (A) 1 %; HCT 41.8 % (39.0-53.0); HGB 13.8 gm/dL (13.0-17.5); Lymphocytes # (A) 2.6 k/uL (1.0-4.8); Lymphocytes % (A) 34 %; MCH 29.7 pg (25.0-35.0); MCHC 32.9 g/dL (31.0-37.0); MCV 90.3 fL (80.0-100.0); Mean Platelet Volume 7.3; Monocytes # (A) 0.3 k/uL (0-1.0); Monocytes % (A) 3 %; Neutrophils # (A) 4.6 k/uL (1.3-7.7); Neutrophils % (A) 60 %; Platelet Count 150 k/uL (150-450); RBC 4.63 m/uL (4.30-5.90); RDW 13.5 % (11.5-15.5); WBC 7.8 k/uL (3.8-10.6)
[2020-11-17 10:29] LABS: ALT 52 U/L (4-49); AST 120 U/L (17-59); African American GFR (CKD) >90 (>60 ml/min/1.73 sqM); Albumin 4.3 g/dL (3.5-5.0); Alkaline Phosphatase 62 U/L (38-126); Anion Gap 15 mmol/L; Blood Urea Nitrogen 12 mg/dL (9-20); Calcium 8.4 mg/dL (8.4-10.2); Carbon Dioxide 26 mmol/L (22-30); Chloride 95 mmol/L (98-107); Glucose 77 mg/dL (74-99); Magnesium 1.5 mg/dL (1.6-2.3); Non-African American GFR(CKD) >90 (>60 ml/min/1.73 sqM); Potassium 4.1 mmol/L (3.5-5.1); Sodium 136 mmol/L (137-145); Total Bilirubin 2.6 mg/dL (0.2-1.3); Total Protein 6.5 g/dL (6.3-8.2)
[2020-11-17 10:48] LABS: Alcohol 330 mg/dL
[2020-11-17] MEDS ORDERED: THIAMINE 100 MG/ML 2 ML VIAL IM STA (10:57)
[2020-11-17] MEDS: MAGNESIUM SULFATE-D5W PMX 1 GM in DEXTROSE/WATER 1 100ML.BAG IVPB SCH ×2 (11:29→12:56)
[2020-11-17] MEDS ORDERED: NICOTINE 21MG/24HR PATCH TRANSDERM STA (11:45)
[2020-11-17 12:01] LABS: Amphetamine Screen,Urine Not Detected (NotDetected); Barbiturate Screen,Urine Not Detected (NotDetected); Benzodiazepines Screen,Urine Detected (NotDetected); Cocaine Screen,Urine Not Detected (NotDetected); Methadone Screen, Urine Not Detected (NotDetected); Opiate Screen,Urine Not Detected (NotDetected); Oxycodone Screen, Urine Not Detected (NotDetected); Phencyclidine Screen,Urine Not Detected (NotDetected); Tricyclic Antidepressant,Urine Not Detected (NotDetected); Urn Cannabinoid Scrn Not Detected (NotDetected)
[2020-11-17] MEDS ORDERED: Magnesium Replacement Protocol 1 EACH MISC MISCELLANE PRN (12:01)
[2020-11-17] MEDS ORDERED: Potassium Replacement Protocol 1 EACH MISC MISCELLANE PRN (12:01)
--- NOTE | 2020-11-17 12:08 | P.HPIM ---
History of Present Illness This is a pleasant 43 years old male with past medical history of hypertension, GERD, GI bleed, pneumonia, seizure disorder, sleep apnea on CPAP/BiPAP, alcohol abuse, alcoholic seizure, alcoholic hepatitis, alcoholic gastritis, upper GI bleed, spinal stenosis with herniated disc status post surgery, hemorrhoids. Presents with fall and alcohol abuse. Patient states that he has been trying to quit drinking alcohol because he has difficulty functioning like he has difficulty going to the bathroom. About 2-3 days ago he thought he has a seizure because while he was sleeping in bed he passed out and is thinking was then stop and there was some shakiness in his upper extremity so he thought he had withdrawal seizure so he went and he got more liquor but started drinking again. Patient states that he fell twice like one time he was going to the restroom when he lost his progress and fell on the back of his head, he fell tw ice and after falling he lost consciousness for a brief time before he wakes up. He has some abrasions in his upper extremities but denies pain and redness or loss of function. No tenderness as well.atient drinks fifth of vodka daily. last drink yesterday morning. Presents with signs and symptoms of alcohol withdrawal Patient feels depressed side but he denies suicidal or homicidal ideation. He states that he hears the force of his father and mother told him father disappointed with him and mother that cares for him. also he has some mild epigastric upset. Patient has difficulty taking care of himself, he could not go to the bathroom and he defecated on himself Vital signs stable. Labs including CBC, INR, BMP and liver enzymes and lipase are unremarkable except for mildly elevated AST at 75 and total bilirubin at 1.8. Mcintyre v is not detected Low magnesium replaced. Liver enzymes slightly elevated Review of Systems CONSTITUTIONAL: No fever, no malaise, no fatigue. HEENT: No recent visual problems or hearing problems. Denied any sore throat. CARDIOVASCULAR: No orthopnea, PND, no palpitations, no syncope. PULMONARY: No shortness of breath, no cough, no hemoptysis. GASTROINTESTINAL: No diarrhea, no nausea, no vomiting, no abdominal pain. Normoactive bowel sounds. NEUROLOGICAL: No headaches, no weakness, no numbness. HEMATOLOGICAL: Denies any bleeding or petechiae. GENITOURINARY: Denies any burning micturition, frequency, or urgency. MUSCULOSKELETAL/RHEUMATOLOGICAL: Denies any joint pain, swelling, or any muscle pain. ENDOCRINE: Denies any polyuria or polydipsia. Past Medical History Past Medical History: GERD/Reflux, GI Bleed, Hypertension, Osteoarthritis (OA), Pneumonia, Seizure Disorder, Sleep Apnea/CPAP/BIPAP Additional Past Medical History / Comment(s): Occasional bilateral pedal edema if stands long, arthritis possibly in back/ribs, MILIND without device, ETOH abuse, alcoholic seizures/blackouts/fainting, alcoholic hepatitis, alcoholic gastritis, upper GI bleed, hypomagnesemia, spinal stenosis/herniated disc with surgery, bilateral varicose veins, hemorrhoids History of Any Multi-Drug Resistant Organisms: None Reported Past Surgical History: Appendectomy, Back Surgery, Tonsillectomy Additional Past Surgical History / Comment(s): bilateral discectomy, discectomy L5-S1, EGD Past Anesthesia/Blood Transfusion Reactions: Motion Sickness Smoking Status: Light tobacco smoker - Past Family History Father Family Medical History: Cancer, Dementia, Neurologic Disorder Additional Family Medical History / Comment(s): melanoma, parkinsons Mother Family Medical History: Hypertension, Musculoskeletal Disorder, Neurologic Disorder, Osteoarthritis (OA) Additional Family Medical History / Comment(s): Mother of motor neuron disease at the age of 78yrs. Medications and Allergies Home Medications Medication Instructions Recorded Confirmed Type Losartan Potassium 50 mg PO DAILY 01/03/19 11/17/20 History Pantoprazole Sodium 40 mg PO DAILY PRN 01/03/19 11/17/20 History Gabapentin [Neurontin] 600 mg PO TID 03/04/19 11/17/20 History Fluticasone Nasal [place] [Flonase 2 spray EA NOSTRIL BID PRN 10/11/19 11/17/20 History Nasal [place]] cloNIDine HCL [Catapres] 0.1 mg PO TID #90 tab 03/29/20 11/17/20 Rx traZODone HCL [Desyrel] 100 mg PO HS 05/14/20 11/17/20 History ALPRAZolam [Xanax] 1 mg PO BID PRN #10 tab 06/15/20 11/17/20 Rx Celecoxib [CeleBREX] 200 mg PO DAILY 11/17/20 11/17/20 History Ibuprofen [Motrin] 600 mg PO Q8HR PRN 11/17/20 11/17/20 History Allergies Allergy/AdvReac Type Severity Reaction Status Date / Time Cephalosporins Allergy Severe Anaphylaxis Verified 11/17/20 11:33 diphenhydramine HCl Allergy Severe Anaphylaxis Verified 11/17/20 11:33 [From Benadryl] divalproex sodium Allergy Severe Anaphylaxis Verified 11/17/20 11:33 [From Depakote] ceftriaxone [From Rocephin] Allergy Anaphylaxis Verified 11/17/20 11:33 cephalexin [From Keflex] Allergy Anaphylaxis Verified 11/17/20 11:33 lisinopril Allergy Anaphylaxis Verified 11/17/20 11:33 Physical Exam Vitals: Vital Signs Temp Pulse Resp BP Pulse Ox 11/17/20 11:36 90 16 118/81 98 11/17/20 09:44 97.6 F 8 L 16 114/77 97 Intake and Output 11/16/20 11/17/20 11/17/20 22:59 06:59 14:59 Other: Weight 122.47 kg GENERAL: The patient is alert and oriented x3, not in any acute distress. Well developed, well nourished. -Patient is generally weak, deconditioned, his speech/secondary to alcohol affect which is chronic. HEENT: Pupils are round and equally reacting to light. EOMI. No scleral icterus. No conjunctival pallor. Normocephalic, atraumatic. No pharyngeal erythema. No thyromegaly. CARDIOVASCULAR: S1 and S2 present. No murmurs, rubs, or gallops. PULMONARY: Chest is clear to auscultation, no wheezing or crackles. ABDOMEN: Soft, nontender, nondistended, normoactive bowel sounds. No palpable organomegaly. MUSCULOSKELETAL: No joint swelling or deformity. EXTREMITIES: No cyanosis, clubbing, or pedal edema. NEUROLOGICAL: Gross neurological examination did not reveal any focal deficits. SKIN: No rashes. No petechiae Results CBC & Chem 7: 11/17/20 10:07 11/17/20 10:07 Labs: Abnormal Lab Results - Last 24 Hours (Table) 11/17/20 Range/Units 10:07 Sodium 136 L (137-145) mmol/L Chloride 95 L (98-107) mmol/L Creatinine 0.56 L (0.66-1.25) mg/dL Magnesium 1.5 L (1.6-2.3) mg/dL Total Bilirubin 2.6 H (0.2-1.3) mg/dL AST 120 H (17-59) U/L ALT 52 H (4-49) U/L Serum Alcohol 330 H* mg/dL Assessment and Plan Assessment: Severe alcohol abuse, with recurrent alcohol withdrawal Deconditioning and loss of function secondary to alcoholism and complications Alcohol withdrawal seizure Recurrent falls secondary to above Mild alcoholic hepatitis Alcoholic gastritis Hypertension History of GERD Nicotine dependence Sleep apnea on CPAP/BiPAP History of GI bleed History of spinal stenosis with herniated disc status post surgery History of hemorrhoids This is a pleasant 45 years old male who presents with alcohol abuse and withdrawal. Continue with CIWA protocol, thiamine, gentle hydration . Psych consult. Neuro check Patient is aware there is no neurologist in this hospital and her fluids to be transferred Labs and medication were reviewed.. Continue same treatment. Continue with symptomatic treatment. Resume home medication. Monitor lytes and vitals. DVT and GI prophylaxis. Further recommendations depends on the clinical course of the patient DVT prophylaxis: Subcutaneous heparin GI Prophylaxis: Pepcid PT/OT: Pending Prognosis is guarded
[2020-11-17] MEDS: LORazepam 2 MG/ML INJ IV PRN ×5 (13:06→22:42)
[2020-11-17] MEDS: THIAMINE 100 MG TAB PO SCH (17:41)
[2020-11-17] MEDS ORDERED: ALPRAZolam 1 MG TAB PO PRN (20:35)
[2020-11-17] MEDS: traZODone HCL 100 MG TAB PO SCH (20:58)
[2020-11-17] MEDS: cloNIDine HCL 0.1 MG TAB PO SCH (20:58)
[2020-11-17] MEDS: HEPARIN SODIUM,PORCINE/PF 5,000 UNIT/0.5 ML SYRINGE SQ SCH (20:58)
[2020-11-17] MEDS: FAMOTIDINE 20 MG/2 ML VIAL IV SCH (20:58)
[2020-11-17] MEDS: chlordiazePOXIDE 25 MG CAP PO SCH (22:15)
[2020-11-18] MEDS: LORazepam 2 MG/ML INJ IV PRN ×4 (00:35→20:20)
[2020-11-18] MEDS: HEPARIN SODIUM,PORCINE/PF 5,000 UNIT/0.5 ML SYRINGE SQ SCH ×2 (07:55→21:37)
[2020-11-18] MEDS: cloNIDine HCL 0.1 MG TAB PO SCH ×3 (07:56→21:37)
[2020-11-18] MEDS: chlordiazePOXIDE 25 MG CAP PO SCH ×3 (07:56→21:37)
[2020-11-18] MEDS: FAMOTIDINE 20 MG/2 ML VIAL IV SCH (07:56)
[2020-11-18] MEDS: THIAMINE 100 MG TAB PO SCH ×2 (07:56→16:37)
[2020-11-18 10:36] LABS: African American GFR (CKD) 138.8 (60.0-200.0); Albumin 3.7 g/dL (3.80-4.90); Albumin/Globulin Ratio 1.95 (1.60-3.17); BUN/Creat Ratio 23.33 Ratio (12.00-20.00); Bilirubin, Conjugated 1.1 mg/dL (0.20-0.40); Bilirubin,Unconjugated 2.2 mg/dL; Calcium 8.4 mg/dL (8.7-10.3); Globulin 1.9 g/dL (1.6-3.3); Magnesium 1.5 mg/dL (1.5-2.4); Non-African American GFR(CKD) 119.7 (60.0-200.0); Potassium 4.1 mmol/L (3.5-5.5); Total Bilirubin 3.3 mg/dL (0.3-1.2); Total Protein 5.6 g/dL (6.2-8.2)
[2020-11-18] MEDS: ACETAMINOPHEN TAB 325 MG TAB PO PRN (10:39)
--- NOTE | 2020-11-18 11:40 | XR ---
EXAMINATION TYPE: XR Hip LT and AP Pelvis DATE OF EXAM: 11/18/2020 COMPARISON: NONE HISTORY: Pain TECHNIQUE: A single AP view of the pelvis is obtained. Two views of the left hip are obtained. FINDINGS: There is no acute fracture/dislocation evident in the pelvis. The hip and sacroiliac join ts appear symmetric and unremarkable. The overlying soft tissue appears unremarkable. Two views of left hip demonstrate a faint lucency involving the left femoral neck. Mild concentric na rrowing of the hip joint bilaterally. There is hypertrophic change of the acetabulum calcifications i n noted adjacent to the lateral margin can be associated with acetabular labral tear. Degenerative ch jazmin lower lumbar spine. Hypertrophic spurring along the greater trochanter. Hypertrophic changes matti ng the iliac crests noted and there is nonspecific calcifications in the right paraspinal line. IMPRESSION: 1. There is a faint lucency in the left femoral neck. No definite cortical step-off. If there is high clinical suspicion for fracture then correlate with CT of the left hip. 2. Arthropathy correlate for acetabular labral tear and femoral acetabular impingement. 3. Degenerative change lower lumbar spine. 4. Spurring along the greater trochanter can often be associated with trochanteric bursitis.
[2020-11-18] MEDS ORDERED: MAGNESIUM SULFATE-D5W PMX 1 GM in DEXTROSE/WATER 1 100ML.BAG IVPB ONE (13:50)
[2020-11-18] MEDS ORDERED: diazePAM 5 MG TAB PO STA (13:52)
--- NOTE | 2020-11-18 13:53 | P.PN ---
Subjective This is a pleasant 43 years old male with past medical history of hypertension, GERD, GI bleed, pneumonia, seizure disorder, sleep apnea on CPAP/BiPAP, alcohol abuse, alcoholic seizure, alcoholic hepatitis, alcoholic gastritis, upper GI bleed, spinal stenosis with herniated disc status post surgery, hemorrhoids. Presents with fall and alcohol abuse. Patient states that he has been trying to quit drinking alcohol because he has difficulty functioning like he has difficulty going to the bathroom. About 2-3 days ago he thought he has a seizur e because while he was sleeping in bed he passed out and is thinking was then stop and there was some shakiness in his upper extremity so he thought he had withdrawal seizure so he went and he got more liquor but started drinking again. Patient states that he fell twice like one time he was going to the restroom when he lost his progress and fell on the back of his head, he fell twice and after falling he lost consciousness for a brief time before he wakes up. He has some abrasions in his upper extremities but denies pain and redness or loss of function. No tenderness as well.atient drinks fifth of vodka daily. last drink yesterday morning. Presents with signs and symptoms of alcohol withdrawal Patient feels depressed side but he denies suicidal or homicidal ideation. He states that he hears the force of his father and mother told him father disappointed with him and mother that cares for him. also he has some mild epigastric upset. Patient has difficulty taking care of himself, he could not go to the bathroom and he defecated on himself Vital signs stable. Labs including CBC, INR, BMP and liver enzymes and lipase are unremarkable except for mildly elevated AST at 75 and total bilirubin at 1.8. Mcintyre v is not detected Low magnesium replaced. Liver enzymes slightly elevated 11/18/2020 is a pleasant 45 years old male presented with alcohol abuse and sadness. The patient was trying to quit himself from drinking alcohol and he developed alcohol withdrawal seizure 3 days ago prior to admission. Also patient has difficulty with ambulation secondary to his alcohol problem, abuse and deconditioning. He has a big bruise on his left buttock and left hip x-rayshowi ng faint lucency in the left femoral neck. No definite cortical step off if there is high clinical suspicion for fracture when correlated with CT of the left hip. Degenerative disease and some aspirin. Were going to order CT of the left hip and consult orthopedic team his CIWA score is 12-23 today. We are going to add Librium scheduled dose on the top of his psychiatrist been consulted for depression and alcoholism, he denies suicidal/homicidal ideation. He hears voices of his father and mother. Today patient is more awake and interactive. However he still going through some withdrawal. He is hemodynamically stable. low-normal magnesium is been replaced. Mildly elevated bilirubin and liver enzymes is due to alcohol effect. Review of Systems CONSTITUTIONAL: No fever, no malaise, no fatigue. HEENT: No recent visual problems or hearing problems. Denied any sore throat. CARDIOVASCULAR: No orthopnea, PND, no palpitations, no syncope. PULMONARY: No shortness of breath, no cough, no hemoptysis. GASTROINTESTINAL: No diarrhea, no nausea, no vomiting, no abdominal pain. Normoactive bowel sounds. NEUROLOGICAL: No headaches, no weakness, no numbness. Active Medications Generic Name Dose Route Start Last Admin Trade Name Jose Manuelq PRN Reason Stop Dose Admin Acetaminophen 650 mg 11/18/20 10:22 11/18/20 10:39 Acetaminophen Tab 325 Mg Tab PO 650 mg Q6HR PRN Administration Fever and/ or Pain Alprazolam 1 mg 11/17/20 20:35 11/18/20 04:32 Alprazolam 1 Mg Tab PO 1 mg BID PRN Administration Anxiety Chlordiazepoxide HCl 25 mg 11/17/20 22:00 11/18/20 07:56 Chlordiazepoxide 25 Mg Cap PO 25 mg TID TRAVIS Administration Clonidine 0.1 mg 11/17/20 22:00 11/18/20 07:56 Clonidine Hcl 0.1 Mg Tab PO 0.1 mg TID TRAVIS Administration Famotidine 20 mg 11/18/20 21:00 Famotidine 20 Mg Tab PO BID TRAVIS Heparin Sodium (Porcine) 5,000 unit 11/17/20 21:00 11/18/20 07:55 Heparin Sodium,Porcine/Pf 5,000 Unit/0.5 Ml Syringe SQ 5,000 unit Q12HR TRAVIS Administration Lorazepam 1 mg 11/17/20 10:57 11/18/20 10:39 Lorazepam 2 Mg/Ml Inj IV 1 mg Q2HR PRN Administration CIWA 8 or 9 Lorazepam 1 mg 11/17/20 10:57 11/18/20 06:32 Lorazepam 2 Mg/Ml Inj IV 1 mg Q1HR PRN Administration CIWA 10 to 15 Miscellaneous Information 1 each 11/17/20 12:01 Potassium Replacement Protocol 1 Each Misc MISCELLANE DAILY PRN Per Protocol Protocol Miscellaneous Information 1 each 11/17/20 12:01 Magnesium Replacement Protocol 1 Each Misc MISCELLANE DAILY PRN Per Protocol Protocol Thiamine HCl 100 mg 11/17/20 17:30 11/18/20 07:56 Thiamine 100 Mg Tab PO 100 mg BID-W/MEALS TRAVIS Administration Trazodone HCl 100 mg 11/17/20 21:00 11/17/20 20:58 Trazodone Hcl 100 Mg Tab PO 100 mg HS TRAVIS Administration Objective - Vital Signs Vital signs: Vital Signs Temp 97.9 F 11/18/20 12:57 Pulse 73 11/18/20 12:57 Resp 14 11/18/20 12:57 BP 146/81 11/18/20 12:57 Pulse Ox 98 11/18/20 12:57 Intake & Output 11/17/20 11/18/20 11/18/20 18:59 06:59 18:59 Intake Total 600 825 Balance 600 825 Weight 122.47 kg Intake: Intake, IV Titration 600 825 Amount Magnesium Sulfate-D5w Pmx 100 1 gm In Dextrose/Water 1 100ml.bag @ 100 mls/hr IVPB Q1H TRAVIS Rx#: [id number] Sodium Chloride 0.9% 1, 500 000 ml @ 250 mls/hr IV . Q4H3M ONE with Mvi, Adult No.4 with Vit K 10 ml with Thiamine 100 mg with Folic Acid 1 mg Rx#: [id number] Sodium Chloride 0.9% 1, 825 000 ml @ 75 mls/hr IV . [id number] ONE Rx#:[id number] Other: Voiding Method Toilet Urinal Urinal # Voids 1 3 - Exam -GENERAL: The patient is alert and oriented x3, not in any acute distress. Well developed, well nourished. patient is HEENT: Pupils are round and equally reacting to light. EOMI. No scleral icterus. No conjunctival pallor. Normocephalic, atraumatic. No pharyngeal erythema. No thyromegaly. CARDIOVASCULAR: S1 and S2 present. No murmurs, rubs, or gallops. PULMONARY: Chest is clear to auscultation, no wheezing or crackles. ABDOMEN: Soft, nontender, nondistended, normoactive bowel sounds. No palpable organomegaly. MUSCULOSKELETAL: No joint swelling or deformity. EXTREMITIES: No cyanosis, clubbing, or pedal edema. NEUROLOGICAL: Gross neurological examination did not reveal any focal deficits. -SKIN: No rashes. no petechiae.big bruise on his left buttock - Labs CBC & Chem 7: 11/17/20 10:07 11/18/20 06:05 Labs: Abnormal Lab Results - Last 24 Hours (Table) 11/18/20 Range/Units 06:05 BUN/Creatinine Ratio 23.33 H (12.00-20.00) Ratio Glucose 130 H (70-110) mg/dL Calcium 8.4 L (8.7-10.3) mg/dL Total Bilirubin 3.3 H (0.3-1.2) mg/dL Conjugated Bilirubin 1.10 H (0.20-0.40) mg/dL AST 89 H (14-35) U/L Total Protein 5.6 L (6.2-8.2) g/dL Albumin 3.70 L (3.80-4.90) g/dL Assessment and Plan Assessment: Severe alcohol abuse, with recurrent alcohol withdrawal Deconditioning and loss of function secondary to alcoholism and complications Alcohol withdrawal seizure Recurrent falls secondary to above left hip bruise and lucency of the chest x-ray, rule out fracture Mild alcoholic hepatitis Alcoholic gastritis Hypertension History of GERD Nicotine dependence Sleep apnea on CPAP/BiPAP History of GI bleed History of spinal stenosis with herniated disc status post surgery History of hemorrhoids Plan: This is a pleasant 45 years old male who presents with alcohol abuse and withdrawal. Continue with CIWA protocol, thiamine, gentle hydration . Psych consult. follow-up recommendation by psychiatrist and orthopedic floor on consult follow-up CAT scan of the left hip Patient is able to eat and drink. No need for IV fluids Patient is aware there is no neurologist in this hospital and her fluids to be transferred Labs and medication were reviewed.. Continue same treatment. Continue with symptomatic treatment. Resume home medication. Monitor lytes and vitals. DVT and GI prophylaxis. Further recommendations depends on the clinical course of the patient DVT prophylaxis: Subcutaneous heparin GI Prophylaxis: Pepcid PT/OT: Pending ( hold until cleared by orthopedic team first ) Prognosis is guarded
--- NOTE | 2020-11-18 15:34 | CT ---
EXAMINATION TYPE: CT hip LT wo con DATE OF EXAM: 11/18/2020 COMPARISON: None HISTORY: PAIN, POSSIBLE LEFT HIP FX CT DLP: 1187.9 mGycm Automated exposure control for dose reduction was used. Images were obtained from the mid ileum to the mid shaft of the femur with no contrast. The acetabulum is intact. There is minimal acetabular spurring. The femur appears intact. Images fail ed to show a femoral fracture. There is no evidence of soft tissue mass. I see no focal bone destruct ion. There is no free fluid in the pelvis. Sacroiliac joint appears normal. IMPRESSION: Negative exam. No fracture seen.
--- NOTE | 2020-11-18 17:28 | P.PN ---
Progress Note - Text Progress Note Date: 11/18/20 case discussed with house staff. pt had been amubating without specific hip pain. imaging reviewed hip xrays and new hip CT scan reviewed. CT shows no evidence of hip fracture. will allow weight bearing, ambulation, and regular diet.
[2020-11-18] MEDS: FAMOTIDINE 20 MG TAB PO SCH (21:37)
[2020-11-18] MEDS: traZODone HCL 100 MG TAB PO SCH (21:37)
[2020-11-19] MEDS: ACETAMINOPHEN TAB 325 MG TAB PO PRN ×2 (00:11→08:16)
[2020-11-19] MEDS: LORazepam 2 MG/ML INJ IV PRN ×5 (00:12→20:47)
[2020-11-19] MEDS: THIAMINE 100 MG TAB PO SCH ×2 (08:03→16:09)
[2020-11-19] MEDS: chlordiazePOXIDE 25 MG CAP PO SCH ×3 (08:03→21:27)
[2020-11-19] MEDS: cloNIDine HCL 0.1 MG TAB PO SCH ×3 (08:03→21:27)
[2020-11-19] MEDS: FAMOTIDINE 20 MG TAB PO SCH ×2 (08:03→20:48)
[2020-11-19] MEDS: HEPARIN SODIUM,PORCINE/PF 5,000 UNIT/0.5 ML SYRINGE SQ SCH ×2 (08:04→20:47)
--- NOTE | 2020-11-19 11:14 | P.CNOR ---
History of Present Illness - HPI Consult date: 11/19/20 Consult reason: other History of present illness: Patient is a 45-year-old male who seen and examined today at bedside. We are asked to be involved in the case regards to the possibility of a left hip fracture. Apparently patient has had history with severe alcohol abuse and had been really intoxicated when he sustained multiple falls. He had presented to the hospital for monitoring and observation and further treatment. He had been ambulatory but was complaining of some pain over his left gluteal area. He says he had multiple falls and denies prior pain. He says he still feels sore all over. He does not localize pain specifically towards his hip. When prompted about his hip. He says his pain around his gluteal area at the left. He denies any numbness tingling or weakness. He denies any prior problems his ambulation. He denies numbness tingling in his lower extremities. Review of Systems As stated per HPI. Denies problems with urinating. Denies any bowel bladder function problems. Denies any weakness in his upper or lower extremity. Denies any neck pain. Denies any low back pain. He has some pain over his left gluteal area. Past Medical History Past Medical History: GERD/Reflux, GI Bleed, Hypertension, Osteoarthritis (OA), Pneumonia, Seizure Disorder, Sleep Apnea/CPAP/BIPAP Additional Past Medical History / Comment(s): Occasional bilateral pedal edema if stands long, arthritis possibly in back/ribs, MILIND without device, ETOH abuse, alcoholic seizures/blackouts/fainting, alcoholic hepatitis, alcoholic gastritis, upper GI bleed, hypomagnesemia, spinal stenosis/herniated disc with surgery, bilateral varicose veins, hemorrhoids History of Any Multi-Drug Resistant Organisms: None Reported Past Surgical History: Appendectomy, Back Surgery, Tonsillectomy Additional Past Surgical History / Comment(s): bilateral discectomy, discectomy L5-S1, EGD Past Anesthesia/Blood Transfusion Reactions: Motion Sickness Past Psychological History: Anxiety, Depression Additional Psychological History / Comment(s): Pt lives alone no pets. Pt uses no assistive device. He drives. Smoking Status: Current every day smoker Past Alcohol Use History: Abuse Additional Past Alcohol Use History / Comment(s): He has been in rehab in the past for ETOH abuse. Pt states he started on and off smoking as a young adult and has more often been a nonsmoker. He states a pack might last him 3-4 days. Pt states he drinks 1/5 vodka a day Past Drug Use History: None Reported Additional Drug Use History / Comment(s): Pt smoked marijuana on occasion in the past. - Past Family History Father Family Medical History: Cancer, Dementia, Neurologic Disorder Additional Family Medical History / Comment(s): melanoma, parkinsons Mother Family Medical History: Hypertension, Musculoskeletal Disorder, Neurologic Disorder, Osteoarthritis (OA) Additional Family Medical History / Comment(s): Mother of motor neuron disease at the age of 78yrs. Medications and Allergies Home Medications Medication Instructions Recorded Confirmed Type Losartan Potassium 50 mg PO DAILY 01/03/19 11/17/20 History Pantoprazole Sodium 40 mg PO DAILY PRN 01/03/19 11/17/20 History Gabapentin [Neurontin] 600 mg PO TID 03/04/19 11/17/20 History Fluticasone Nasal [place] [Flonase 2 spray EA NOSTRIL BID PRN 10/11/19 11/17/20 History Nasal [place]] cloNIDine HCL [Catapres] 0.1 mg PO TID #90 tab 03/29/20 11/17/20 Rx traZODone HCL [Desyrel] 100 mg PO HS 05/14/20 11/17/20 History ALPRAZolam [Xanax] 1 mg PO BID PRN #10 tab 06/15/20 11/17/20 Rx Celecoxib [CeleBREX] 200 mg PO DAILY 11/17/20 11/17/20 History Ibuprofen [Motrin] 600 mg PO Q8HR PRN 11/17/20 11/17/20 History Allergies Allergy/AdvReac Type Severity Reaction Status Date / Time Cephalosporins Allergy Severe Anaphylaxis Verified 11/17/20 11:33 diphenhydramine HCl Allergy Severe Anaphylaxis Verified 11/17/20 11:33 [From Benadryl] divalproex sodium Allergy Severe Anaphylaxis Verified 11/17/20 11:33 [From Depakote] ceftriaxone [From Rocephin] Allergy Anaphylaxis Verified 11/17/20 11:33 cephalexin [From Keflex] Allergy Anaphylaxis Verified 11/17/20 11:33 lisinopril Allergy Anaphylaxis Verified 11/17/20 11:33 Physical Examination Osteopathic Statement: *. No significant issues noted on an osteopathic structural exam other than those noted in the History and Physical/Consult. - Hip left Tenderness with palpation: none Pain with motion: no pain (He is able to lift his legs up off the bed independently with ease. He has no pain with resisted flexion or extension at his hip. He has full active and passive range of motion at his knee ankle foot and toes. There is no pain with internal extra rotation of his hips. ) ROM: internal rotation: normal (There is no pain with internal and external rotation. He is able to stand up on his legs and ambulate well.) Results - Labs Labs: H & H 11/17/20 Range/Units 10:07 Hgb 13.8 (13.0-17.5) gm/dL Hct 41.8 (39.0-53.0) % Result Diagrams: 11/17/20 10:07 11/18/20 06:05 - Diagnostic results Hip x-ray: report reviewed, image reviewed Hip CT: report reviewed, image reviewed (I reviewed the regular x-ray as well as the computed tomography scan of his hip. I do see the lucency that they mention on the regular x-ray however there is no evidence of any fracture on the computed tomography scan. There is no fracture line there is no bony change or degenerative erosion.) Assessment and Plan Assessment: History of multiple falls with alcohol intoxication Left gluteal pain No findings of acute hip fracture Plan: I do not see any evidence of acute fracture based on his exam. The patient has had multiple falls due to his intoxication. He has had workup as there was some concern about the pain around his gluteal area and possible hip fracture. The computed tomography scan does not show any evidence of fracture. His physical exam does not correlate with any evidence of fracture. He has been able to ambulate well without focal pain toward his left groin or hip. I think it is okay for him to continue to mobilize. I do not plan further imaging at this point as his physical exam does not correlate with acute hip fracture. It is okay for him to ambulate and mobilize I to his tolerance. From an orthopedic standpoint is okay for him to be discharged when he stable with medicine service and follow up on an as-needed basis
--- NOTE | 2020-11-19 15:20 | P.CN ---
Psychiatric Consult - . Consult date: 11/19/20 Consult:: 11/19/20 15:08 IDENTIFYING DATA: This patient is a single, unemployed, 45-year-old male was admitted for alcohol withdrawal. REASON FOR CONSULT: Suicidal HISTORY OF PRESENT ILLNESS: The patient presented to the hospital on 11/17/2020 with a chief complaint of wanting help for his alcoholism. Serum alcohol in the ED was noted to be 330. Patient reports that he has recently drinking heavilya few weeks after his discharge from [facility] earlier this year for alcohol rehabilitation. Despite this, the patient is not reporting any significant symptoms in regards to his mood. He is not reporting any depression or anxiety at this time. She is denying any suicidal or homicidal ideation, intention, and/or plan. He is not reporting any auditory or visual hallucinations. He does express that alcohol has been causing significant problems for him and that he wants to quit alcohol. He does not believe that he requires inpatient substance abuse rehabilitation and preferred to enroll in intensive outpatient for his alcohol abuse. He reports that prior to this admission, he was drinking up to half gallon of vodka per night. He states that his last drink was this past Thursday. The patient is currently on a regimen of trazodone, gabapentin, and Xanax. He reports prior to leaving [facility] he was given IM vivitrol. Despite receiving the child, the patient reports no significant benefit in cutting down his alcohol abuse. He states that he did attend some groups but found that they were causing him to feel even more sad and depressed about sobriety. He states that this pushed him to use more. PAST PSYCHIATRIC HISTORY: Patient has a a history of depression and a long history of alcohol use disorder. He has had previous trials of medications including gabapentin, Vistaril, and xanax. He is currently on gabapentin, Xanax, and trazodone. He has had 1 previous psychiatric hospitalization on [facility] in 2017 for worsening depression and suicidal ideation. He currently denies any outpatient psychiatric follow-up. He denies any prior attempts at suicide. PAST MEDICAL HISTORY: Past Medical History: GERD/Reflux, GI Bleed, Hypertension, Osteoarthritis (OA), Pneumonia, Seizure Disorder, Sleep Apnea/CPAP/BIPAP Additional Past Medical History / Comment(s): Occasional bilateral pedal edema if stands long, arthritis possibly in back/ribs, MILIND without device, ETOH abuse, alcoholic seizures/blackouts/fainting, alcoholic hepatitis, alcoholic gastritis, upper GI bleed, hypomagnesemia, spinal stenosis/herniated disc with surgery, bilateral varicose veins, hemorrhoids History of Any Multi-Drug Resistant Organisms: None Reported Past Surgical History: Appendectomy, Back Surgery, Tonsillectomy Additional Past Surgical History / Comment(s): bilateral discectomy, discectomy L5-S1, EGD Past Anesthesia/Blood Transfusion Reactions: Motion Sickness Smoking Status: Light tobacco smoker ALLERGIES: Cephalosporins, diphenhydramine, Depakote, Rocephin, Keflex, lisinopril CHEMICAL DEPENDENCY HISTORY: The patient reports that he occasionally smokes at this point.he recently quit in May but picked tobacco again. Prior to this admission, the patient admitted to drinking up to half gallon of vodka per day. Last drink was on Thursday. He also reports a history of marijuana use. He denies any other substance use. Patient was drinking up to a fifth and a half of liquor per day. Last drink was yesterday. He also has used marijuana in the past. He denies any illicit drug use. FAMILY PSYCHIATRIC/SUBSTANCE USE HISTORY: Patient reports that his father was diagnosed with schizophrenia. SOCIAL HISTORY: Patient was born and raised in [place], [place]. He currently lives alone with his pet fish. He is 1 of 4 children. His eldest brother at the age of 11 after being hit by a bus. His father recently on 06/15/20. The patient reports that he lost his job at [employer] and is currently unemployed. MENTAL STATUS EXAM: General Appearance: Patient appears to be stated age is alert, pleasant, and cooperative. Patient appears to have fair hygiene and grooming wearing hospital gown with fair eye contact. Dressed in a hospital gown. Behavior: Patient is calmly lying in bed without any agitated behavior. Normal p sychomotor activity. Speech: Patient's speech is fluent and nonpressured. Mood/Affect: Patient reports their mood is "Feeling okay", affect is congruent and constricted in range. Suicidality/Homicidality: Patient denies having any suicidal or homicidal ideation intent or plan. Perceptions: Patient denies any visual hallucinations and denies any auditory hallucinations Though content/process: There is no evidence of any delusional thought content and thought process is linear and goal-directed. Memory and concentration: AOX3, grossly intact for the purposes of this session. Can spell "WORLD" backwards Judgment and insight: poor Vital Signs Temp 98.3 F 11/19/20 11:40 Pulse 65 11/19/20 11:40 Resp 20 11/19/20 11:40 BP 102/63 11/19/20 11:40 Pulse Ox 93 L 11/19/20 11:40 Intake & Output 11/18/20 11/19/20 11/19/20 18:59 06:59 18:59 Intake Total 1760 100 Balance 1760 100 Intake: Intake, IV Titration 260 Amount Magnesium Sulfate-D5w Pmx 100 1 gm In Dextrose/Water 1 100ml.bag @ 100 mls/hr IVPB ONCE ONE Rx#: [id number] Sodium Chloride 0.9% 1, 160 000 ml @ 75 mls/hr IV . 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 Patient's primary issue is his alcohol use disorder. He is not presenting with any imminent risk of harm to self or others as a result of a psychiatric illness. Protective factors include future-orientation and no prior attempts at suicide. Risk factors include heavy alcohol abuse and the patient's age, race and gender demographic. -Delirium precautions recommended with patient including - avoiding use of narcotics and [employer] EXAM[employer]ER sedatives, limit anticholinergic medications when possible, frequent re-orientation, minimize use of restraints, open window shades during the day and close them at night -Would recommend the following medication changes/additions: Continue trazodone 100 mg by mouth at bedtime Continue gabapentin 600 mg by mouth 3 times daily Continue Librium 25 mg tid for alcohol withdrawal Continue xanax 1 mg po bid prn for anxiety Restart Gabapentin 300 mg po tid for off-label anxiety, mood stabilization Patient is on the vivitrol injection. Uncertain about date of last dose, but reported in early to mid October. -Continue [facility] protocol -Recommend outpatient substance abuse therapy. Recommend outpatient psychiatric follow-up. -Patient is cleared psychiatrically. Psychiatry will sign off at this point, please contact with any questions. Thank you for letting us participate in the care of this patient.
[2020-11-19] MEDS: GABAPENTIN 300 MG CAP PO SCH ×2 (16:09→21:27)
[2020-11-19] MEDS ORDERED: Magnesium Replacement Protocol 1 EACH MISC MISCELLANE PRN (19:14)
[2020-11-19] MEDS ORDERED: Potassium Replacement Protocol 1 EACH MISC MISCELLANE PRN (19:14)
--- NOTE | 2020-11-19 20:58 | PN ---
PROGRESS NOTE DATE OF SERVICE: 11/19/2020 This 45-year-old gentleman who was admitted with significant alcohol issues, being closely monitored. Patient is complaining of weakness and some tremors also. No chest pain. No palpitations. No fever. PHYSICAL EXAMINATION: Alert and oriented times three. Pulse 65. Blood pressure 102/60, respiration 20, temperature 98.3, pulse ox 98% on room air. HEENT: Conjunctivae normal. NECK: No JVD. CARDIOVASCULAR: S1, S2 muffled. RESPIRATIONS: Breath sounds diminished in the bases. ABDOMEN: Soft. NERVOUS SYSTEM: Diffusely weak. LABS: Glucose 130, magnesium is 1.5, bilirubin is 1.1, AST/ALT noted. ASSESSMENT: 1. Severe alcohol abuse with acute alcohol withdrawal syndrome and acute delirium tremens. 2. Deconditioning, loss of function, secondary to alcohol complications. 3. Gait dysfunction. 4. Hypomagnesemia. 5. Elevated AST, ALT, acute alcoholic hepatitis. 6. History of alcohol withdrawal seizures. 7. Recurrent falls. 8. Left hip bruise and recent left x-ray. 9. Mild alcoholic hepatitis. 10.Alcoholic gastritis. 11.Hypertension. 12.History of gastroesophageal reflux disease. 13.History of nicotine dependence. 14.History of sleep apnea. 15.History of gastrointestinal bleed. 16.History of spinal stenosis with herniated disc, status post surgery. 17.History of hemorrhoids. RECOMMENDATIONS AND DISCUSSION: Recommend to continue current medications, continue with monitoring, symptomatic treatment. We will do a repeat labs, potassium, magnesium replacement. Also recommend PT/ OT evaluation. Guarded prognosis because of multiple complex medical issues. Further recommendations to follow. Orthopedic input appreciated. CT scan of the hip was done which showed no acute fractures or acute changes. MMODL / IJN: [id number] / [email or web address]
[2020-11-19] MEDS: traZODone HCL 100 MG TAB PO SCH (21:27)
[2020-11-20] MEDS: LORazepam 2 MG/ML INJ IV PRN ×4 (00:46→19:32)
[2020-11-20] MEDS: ACETAMINOPHEN TAB 325 MG TAB PO PRN (03:48)
[2020-11-20 05:46] LABS: Basophils % (A) 0 %; Eosinophils # (A) 0.1 k/uL (0-0.7); Eosinophils % (A) 2 %; HGB 11.8 gm/dL (13.0-17.5); Lymphocytes # (A) 2.3 k/uL (1.0-4.8); Lymphocytes % (A) 39 %; MCH 31.1 pg (25.0-35.0); MCHC 33.7 g/dL (31.0-37.0); MCV 92.5 fL (80.0-100.0); Mean Platelet Volume 8.3; Monocytes # (A) 0.2 k/uL (0-1.0); Monocytes % (A) 4 %; Neutrophils # (A) 3.1 k/uL (1.3-7.7); Neutrophils % (A) 52 %; RBC 3.78 m/uL (4.30-5.90); RDW 13.4 % (11.5-15.5); WBC 5.9 k/uL (3.8-10.6)
[2020-11-20 06:36] LABS: Platelet Count 96 k/uL (150-450)
[2020-11-20] MEDS: HEPARIN SODIUM,PORCINE/PF 5,000 UNIT/0.5 ML SYRINGE SQ SCH ×2 (09:21→22:01)
[2020-11-20] MEDS: THIAMINE 100 MG TAB PO SCH ×2 (09:21→16:28)
[2020-11-20] MEDS: FAMOTIDINE 20 MG TAB PO SCH ×2 (09:21→22:01)
[2020-11-20] MEDS: cloNIDine HCL 0.1 MG TAB PO SCH ×3 (09:21→22:01)
[2020-11-20] MEDS: chlordiazePOXIDE 25 MG CAP PO SCH ×3 (09:21→22:02)
[2020-11-20] MEDS: GABAPENTIN 300 MG CAP PO SCH ×3 (09:21→22:02)
[2020-11-20 10:25] LABS: African American GFR (CKD) 123.3 (60.0-200.0); Anion Gap 10.1 mmol/L (4.00-12.00); BUN/Creat Ratio 13.75 Ratio (12.00-20.00); Carbon Dioxide 28.9 mmol/L (21.6-31.8); Magnesium 1.3 mg/dL (1.5-2.4); Non-African American GFR(CKD) 106.4 (60.0-200.0); Potassium 4.8 mmol/L (3.5-5.5)
[2020-11-20] MEDS ORDERED: Potassium Replacement Protocol 1 EACH MISC MISCELLANE PRN (14:37)
[2020-11-20] MEDS ORDERED: Magnesium Replacement Protocol 1 EACH MISC MISCELLANE PRN (14:37)
[2020-11-20] MEDS ORDERED: FLUTICASONE 50MCG/SPRAY NASAL 16GM EA NOSTRIL PRN (14:40)
[2020-11-20] MEDS ORDERED: PANTOPRAZOLE 40 MG TABLET PO PRN (14:40)
--- NOTE | 2020-11-20 16:19 | PN ---
PROGRESS NOTE DATE OF SERVICE: 11/20/2020 This 45-year-old gentleman admitted with acute alcohol withdrawals and early delirium tremens is being closely monitored. The patient is still unsteady at this time. Patient apparently had spent alcohol residential rehab facility recently 5 days detoxing about 28 days with treatment, but still the patient lapsed after going home. The patient might need a longer stay of alcohol rehab Facility at this time. No chest pain. No palpitations. No fever. PHYSICAL EXAMINATION: Alert and oriented times three. Pulse 61. Blood pressure 111/72, respiration 12, temperature 97.7, pulse ox 97% on 6 L. HEENT: Conjunctivae normal. NECK: No JVD. CARDIOVASCULAR: S1, S2 muffled. RESPIRATORY: Breath sounds diminished at the bases. A few scattered rhonchi. ABDOMEN: Soft. LEGS are no edema. No swelling. NERVOUS SYSTEM: Diffusely weak and tremors. LABS: WBC 5.2, hemoglobin 11.8, and magnesium is 1.3. ASSESSMENT: 1. Severe alcohol abuse with acute alcohol withdrawal syndrome and acute delirium tremens. 2. Deconditioning with loss of function secondary to alcohol. 3. Gait dysfunction. 4. Hypomagnesemia. 5. Increased elevated AST, ALT, acute alcoholic hepatitis. 6. History of alcohol withdrawal seizures. 7. Recurrent falls. 8. Left hip bruise because of fall in the recent x-ray. 9. Mild alcoholic hepatitis. 10.Alcoholic gastritis. 11.Hypertension. 12.History of gastroesophageal reflux disease. 13.History of nicotine dependence. 14.Sleep apnea. 15.History of gastrointestinal bleed. 16.History of spinal stenosis with herniated disc, status post surgery. 17.History of hemorrhoids. 18.History of depression. RECOMMENDATIONS AND DISCUSSION: I recommend to continue current medications, monitoring and symptomatic treatment. Otherwise, at this time I would also recommend closely follow with Psychiatry. DVT prophylaxis. We will repeat magnesium supplementation. Guarded prognosis. Further recommendations to follow. MMODL / IJN: [id number] /
[2020-11-20] MEDS: traZODone HCL 100 MG TAB PO SCH (22:01)
[2020-11-21] MEDS: ACETAMINOPHEN TAB 325 MG TAB PO PRN (01:09)
[2020-11-21] MEDS: LORazepam 2 MG/ML INJ IV PRN ×2 (01:09→04:45)
[2020-11-21 07:00] LABS: Basophils % (A) 0 %; Eosinophils # (A) 0.1 k/uL (0-0.7); Eosinophils % (A) 2 %; HCT 35.5 % (39.0-53.0); HGB 12.1 gm/dL (13.0-17.5); Lymphocytes # (A) 2.5 k/uL (1.0-4.8); Lymphocytes % (A) 40 %; MCH 31.9 pg (25.0-35.0); MCHC 34.2 g/dL (31.0-37.0); MCV 93.1 fL (80.0-100.0); Mean Platelet Volume 7.6; Monocytes # (A) 0.4 k/uL (0-1.0); Monocytes % (A) 6 %; Neutrophils % (A) 48 %; Platelet Count 116 k/uL (150-450); RBC 3.81 m/uL (4.30-5.90); RDW 13.1 % (11.5-15.5); WBC 6.1 k/uL (3.8-10.6)
[2020-11-21] MEDS: chlordiazePOXIDE 25 MG CAP PO SCH ×2 (08:00→16:33)
[2020-11-21] MEDS: HEPARIN SODIUM,PORCINE/PF 5,000 UNIT/0.5 ML SYRINGE SQ SCH ×2 (08:00→19:38)
[2020-11-21] MEDS: THIAMINE 100 MG TAB PO SCH ×2 (08:00→16:33)
[2020-11-21] MEDS: FAMOTIDINE 20 MG TAB PO SCH (08:00)
[2020-11-21] MEDS: GABAPENTIN 300 MG CAP PO SCH ×2 (08:00→16:33)
[2020-11-21] MEDS: cloNIDine HCL 0.1 MG TAB PO SCH ×2 (08:00→16:33)
[2020-11-21] MEDS ORDERED: MELOXICAM 7.5 MG TAB PO SCH (09:00)
[2020-11-21] MEDS ORDERED: LOSARTAN 50 MG TAB PO SCH (09:00)
[2020-11-21] MEDS ORDERED: LORazepam 1 MG TAB PO STA (09:52)
[2020-11-21 10:38] LABS: African American GFR (CKD) 123.3 (60.0-200.0); Anion Gap 8.8 mmol/L (4.00-12.00); BUN/Creat Ratio 17.5 Ratio (12.00-20.00); Calcium 9.4 mg/dL (8.7-10.3); Carbon Dioxide 27.2 mmol/L (21.6-31.8); Magnesium 1.2 mg/dL (1.5-2.4); Non-African American GFR(CKD) 106.4 (60.0-200.0); Potassium 4.3 mmol/L (3.5-5.5)
[2020-11-21] MEDS ORDERED: Magnesium Replacement Protocol 1 EACH MISC MISCELLANE PRN (11:23)
[2020-11-21] MEDS: MAGNESIUM SULFATE-D5W PMX 1 GM in DEXTROSE/WATER 1 100ML.BAG IVPB SCH ×3 (12:36→16:32)
--- NOTE | 2020-11-21 15:21 | P.DS ---
Providers Date of admission: 11/17/20 10:57 Expected date of discharge: 11/21/20 Attending physician: Isauro Ayers MD Consults: 11/17/20 12:05 Consult Physician Urgent Consulting Provider: Roni Gasca Consult Reason/Comments: depression and alcoholism Do you want consulting provider notified?: Already Contacted 11/18/20 13:44 Consult Physician Routine Consulting Provider: Danna Zepeda Consult Reason/Comments: left hip fracture dis Do you want consulting provider notified?: Yes Primary care physician: Veena Tabor Hospital Course: Final diagnosis Severe alcohol abuse with alcohol withdrawal syndrome and acute delirium tremens Deconditioning with loss of function secondary to alcohol Gait dysfunction Hypomagnesemia Increased elevated AST, ALT, acute alcoholic hepatitis History of alcohol withdrawal seizures recurrent falls Left hip bruise because of the fall and the recent x-ray Mild alcoholic hepatitis Alcoholic gastritis Hypertension History of gastroesophageal reflux disease History of nicotine dependence Sleep apnea history of GI bleed History of spinal stenosis with herniated disc, status post surgery History of hemorrhoids history of depression Discharge disposition Patient is being discharged in a stable condition with guarded prognosis to home. Patient will follow-up with Dr. Tabor in the outpatient setting upon discharge. Patient is to follow-up with [facility] for outpatient psychiatry as discussed as well. Patient will continue on Librium taper and prescription provided. Prescriptions provided and recommend repeat labs in 1-2 days to monitor CBC and BMP along with magnesium level. Total time taken is greater than 35 minutes. Hospital course This is a 45 years old male who was recently admitted with acute alcohol withdrawal and early delirium tremens and was being closely monitored . Patient was seen and evaluated by psychiatry recommending continued outpatient psychiatry follow-up. Patient was maintained on CIWA protocol along with a Librium taper and will continue with the Librium taper and a prescription was provided. Patient's magnesium continue to be low and was replaced and will cont inue with magnesium oxide 400 mg twice daily upon discharge and recommend following up with primary care provider this week with repeat labs to monitor electrolytes closely. Discussed with the patient about avoiding alcohol intake upon discharge. Currently no reports of chest pain, shortness of breath, or palpitations. Patient is afebrile. No reports of nausea or vomiting and patient is tolerating diet. Patient will be discharged home today. Guarded prognosis as patient is high risk for multiple readmissions secondary to alcohol use and withdrawal. On exam vital signs are stable. Cardio S1, S2 are muffled. Respiratory system shows diminished breath sounds at the bases with no wheezing or rhonchi noted. Abdomen is soft and nontender. Nervous system shows no focal deficits. Please refer to medication reconciliation sheet for a list of medications. Patient Condition at Discharge: Stable Plan - Discharge Summary Discharge Rx Participant: Yes New Discharge Prescriptions: New chlordiazePOXIDE HCl [Librium] 25 mg PO BID #6 cap Gabapentin [Neurontin] 300 mg PO TID cap Thiamine [Vitamin B-1] 100 mg PO BID-W/MEALS 30 Days #60 tab Magnesium Oxide [Mag-Ox] 400 mg PO BID 30 Days #60 tablet Continue Pantoprazole Sodium 40 mg PO DAILY PRN PRN Reason: GERD Losartan Potassium 50 mg PO DAILY Fluticasone Nasal [place] [Flonase Nasal [place]] 2 spray EA NOSTRIL BID PRN PRN Reason: Allergy Symptoms cloNIDine HCL [Catapres] 0.1 mg PO TID #90 tab traZODone HCL [Desyrel] 100 mg PO HS ALPRAZolam [Xanax] 1 mg PO BID PRN #10 tab PRN Reason: Anxiety Ibuprofen [Motrin] 600 mg PO Q8HR PRN PRN Reason: Pain Celecoxib [CeleBREX] 200 mg PO DAILY Discontinued Gabapentin [Neurontin] 600 mg PO TID Discharge Medication List Losartan Potassium 50 mg PO DAILY 01/03/19 [History] Pantoprazole Sodium 40 mg PO DAILY PRN 01/03/19 [History] Fluticasone Nasal [place] [Flonase Nasal [place]] 2 spray EA NOSTRIL BID PRN 10/11/19 [History] cloNIDine HCL [Catapres] 0.1 mg PO TID #90 tab 03/29/20 [Rx] traZODone HCL [Desyrel] 100 mg PO HS 05/14/20 [History] ALPRAZolam [Xanax] 1 mg PO BID PRN #10 tab 06/15/20 [Rx] Celecoxib [CeleBREX] 200 mg PO DAILY 11/17/20 [History] Ibuprofen [Motrin] 600 mg PO Q8HR PRN 11/17/20 [History] Gabapentin [Neurontin] 300 mg PO TID cap 11/21/20 [Rx] Magnesium Oxide [Mag-Ox] 400 mg PO BID 30 Days #60 tablet 11/21/20 [Rx] Thiamine [Vitamin B-1] 100 mg PO BID-W/MEALS 30 Days #60 tab 11/21/20 [Rx] chlordiazePOXIDE HCl [Librium] 25 mg PO BID #6 cap 11/21/20 [Rx] Follow up Appointment(s)/Referral(s): Veena Tabor DO [Primary Care Provider] - 1-2 days Ambulatory/Diagnostic Orders: Complete Blood Count w/diff [LAB.AMB] Time Frame: 2 Days, Location: None Selected Activity/Diet/Wound Care/Special Instructions: Activity Limited until follow-up Follow-up with primary care provider upon discharge Avoid alcohol intake Take medications as prescribed Continue current diet and consume magnesium rich foods Repeat labs in 2-3 days to monitor electrolytes and magnesium level Discharge Disposition: HOME SELF-CARE
[2020-11-21 19:54] VITALS: BP 102/67; PULSE 94; RESP 16; TEMP 98.1
== END 2020-11-21 20:13 | disposition home or self-care (01) | DRG 896 ==
LOC: EC 09:42 → 5NMEDONC 10:57
PROVIDERS: ADMIT Internal Medicine; ATTEND Internal Medicine
DX: F10.231 Alcohol dependence with withdrawal delirium (principal); S72.002A Fracture of unspecified part of neck of left femur, initial encounter for closed fracture; F17.200 Nicotine dependence, unspecified, uncomplicated; F32.9 Major depressive disorder, single episode, unspecified; I10 Essential (primary) hypertension; K29.20 Alcoholic gastritis without bleeding; K70.10 Alcoholic hepatitis without ascites; E83.42 Hypomagnesemia; F41.9 Anxiety disorder, unspecified; G47.30 Sleep apnea, unspecified; S30.0XXA Contusion of lower back and pelvis, initial encounter; Y90.8 Blood alcohol level of 240 mg/100 ml or more; Z79.1 Long term (current) use of non-steroidal anti-inflammatories (NSAID); Z79.899 Other long term (current) drug therapy; K21.9 Gastro-esophageal reflux disease without esophagitis; M19.90 Unspecified osteoarthritis, unspecified site; M48.00 Spinal stenosis, site unspecified; K64.9 Unspecified hemorrhoids; W19.XXXA Unspecified fall, initial encounter
CPT/HCPCS: 36415; 73502; 80048; 80053; 80076; 80306; 80320; 83735; 85025; 87635; 96360; 99285

== ENCOUNTER 2020-11-23 16:29 | Inpatient (IN) | payer OTHER ==
--- NOTE | 2020-11-23 17:04 | ED ---
General Adult HPI - General Chief complaint: Alcohol Stated complaint: ETOH Time Seen by Provider: 11/23/20 16:37 Source: patient, EMS Mode of arrival: EMS Limitations: no limitations - History of Present Illness Initial comments: Dictation was produced using [employer] dictation software. please excuse any grammatical, word or spelling errors. Chief Complaint: 45-year-old male with extensive history of alcohol abuse presents to the emergency department for depression and alcohol INTOXICATION. History of Present Illness: Patient is a 45-year-old male. He is brought in by EMS for alcohol intoxication. Patient states he is depressed however is not suicidal or homicidal. He wants to be detoxed again. Patient was just discharged from the hospital 2 days ago for the same issue. After being discharged he allegedly went home and drank large amounts of alcohol. Patient is a poor historian. The ROS documented in this emergency department record has been reviewed and confirmed by me. Those systems with pertinent positive or negative responses have been documented in the HPI. All other systems are other negative and/or noncontributory. PHYSICAL EXAM: General Impression: Alert and oriented x3, inebriated HEENT: Normocephalic atraumatic, extra-ocular movements intact, pupils equal and reactive to light bilaterally, mucous membranes moist. Cardiovascular: Heart regular rate and rhythm Chest: Able to complete full sentences, no retractions, no tachypnea Abdomen: abdomen soft, non-tender, non-distended, no organomegaly Musculoskeletal: Pulses present and equal in all extremities, no peripheral edema Motor: no focal deficits noted Neurological: CN II-XII grossly intact, no focal motor or sensory deficits noted Skin: Intact with no visualized rashes Psych: Normal affect and mood ED course: 45-year-old male presents with clinical presentation consistent with acute EtOH intoxication. Vital Signs upon arrival are within acceptable limits. Patient reevaluated at bedside. Does still continue to appear inebriated. Discussed with patient that he is able to go home if he has family that can come and pick him up. Patient states he lives at home by himself and he does not have any family. It was made to call patient's sibling Irish Mast was listed in patient's demographics. She did not metal pickling equipment operator. Her voicemail is not set up either. Patient will be admitted for acute EtOH intoxication. Patient's magnesium is 1.5. Given oral magnesium tablets. Patient be admitted to [facility] for acute EtOH intoxication. EKG interpretation: Ventricular rate 4, normal sinus rhythm,. 174, QRS 110, QTc 486. No NE prolongation, no QTC prolongation, no ST or T-wave changes noted. E KG compared to 09/15/2020 showing no changes. Overall, this EKG is unremarkable - Related Data Home Medications Medication Instructions Recorded Confirmed Losartan Potassium 50 mg PO DAILY 01/03/19 11/23/20 Pantoprazole Sodium 40 mg PO DAILY PRN 01/03/19 11/23/20 Fluticasone Nasal [place] [Flonase 2 spray EA NOSTRIL BID PRN 10/11/19 11/23/20 Nasal [place]] traZODone HCL [Desyrel] 100 mg PO HS 05/14/20 11/23/20 Celecoxib [CeleBREX] 200 mg PO DAILY 11/17/20 11/23/20 Ibuprofen [Motrin] 600 mg PO Q8HR PRN 11/17/20 11/23/20 chlordiazePOXIDE HCl [Librium] See Taper PO BID 11/23/20 11/23/20 Previous Rx's Medication Instructions Recorded cloNIDine HCL [Catapres] 0.1 mg PO TID #90 tab 03/29/20 ALPRAZolam [Xanax] 1 mg PO BID PRN #10 tab 06/15/20 Gabapentin [Neurontin] 300 mg PO TID cap 11/21/20 Magnesium Oxide [Mag-Ox] 400 mg PO BID 30 Days #60 tablet 11/21/20 Thiamine [Vitamin B-1] 100 mg PO BID-W/MEALS 30 Days #60 11/21/20 tab Allergies Allergy/AdvReac Type Severity Reaction Status Date / Time Cephalosporins Allergy Severe Anaphylaxis Verified 11/23/20 18:16 diphenhydramine HCl Allergy Severe Anaphylaxis Verified 11/23/20 18:16 [From Benadryl] divalproex sodium Allergy Severe Anaphylaxis Verified 11/23/20 18:16 [From Depakote] ceftriaxone [From Rocephin] Allergy Anaphylaxis Verified 11/23/20 18:16 cephalexin [From Keflex] Allergy Anaphylaxis Verified 11/23/20 18:16 lisinopril Allergy Anaphylaxis Verified 11/23/20 18:16 Review of Systems ROS Statement: Those systems with pertinent positive or pertinent negative responses have been documented in the HPI. ROS Other: All systems not noted in ROS Statement are negative. Past Medical History Past Medical History: GERD/Reflux, GI Bleed, Hypertension, Osteoarthritis (OA), Pneumonia, Seizure Disorder, Sleep Apnea/CPAP/BIPAP Additional Past Medical History / Comment(s): Occasional bilateral pedal edema if stands long, arthritis possibly in back/ribs, MILIND without device, ETOH abuse, alcoholic seizures/blackouts/fainting, alcoholic hepatitis, alcoholic gastritis, upper GI bleed, hypomagnesemia, spinal stenosis/herniated disc with surgery, bi lateral varicose veins, hemorrhoids History of Any Multi-Drug Resistant Organisms: None Reported Past Surgical History: Appendectomy, Back Surgery, Tonsillectomy Additional Past Surgical History / Comment(s): bilateral discectomy, discectomy L5-S1, EGD Past Anesthesia/Blood Transfusion Reactions: Motion Sickness Past Psychological History: Anxiety, Depression Smoking Status: Current every day smoker Past Alcohol Use History: Abuse, Daily, Heavy Past Drug Use History: None Reported - Past Family History Father Family Medical History: Cancer, Dementia, Neurologic Disorder Additional Family Medical History / Comment(s): melanoma, parkinsons Mother Family Medical History: Hypertension, Musculoskeletal Disorder, Neurologic Disorder, Osteoarthritis (OA) Additional Family Medical History / Comment(s): Mother of motor neuron disease at the age of 78yrs. General Exam Limitations: no limitations Course Vital Signs 11/23/20 16:32 Temperature 98.0 F Pulse Rate 94 Respiratory 17 Rate Blood Pressure 132/73 O2 Sat by Pulse 95 Oximetry Medical Decision Making - Lab Data Result diagrams: 11/23/20 17:56 11/23/20 17:56 Lab Results 11/23/20 11/23/20 Range/Units 17:56 17:56 WBC 5.0 (3.8-10.6) k/uL RBC 4.44 (4.30-5.90) m/uL Hgb 13.8 (13.0-17.5) gm/dL Hct 41.0 (39.0-53.0) % MCV 92.4 (80.0-100.0) fL MCH 31.0 (25.0-35.0) pg MCHC 33.6 (31.0-37.0) g/dL RDW 13.6 (11.5-15.5) % Plt Count 85 L (150-450) k/uL MPV 8.2 Neutrophils % 47 % Lymphocytes % 41 % Monocytes % 8 % Eosinophils % 1 % Basophils % 0 % Neutrophils # 2.4 (1.3-7.7) k/uL Lymphocytes # 2.0 (1.0-4.8) k/uL Monocytes # 0.4 (0-1.0) k/uL Eosinophils # 0.1 (0-0.7) k/uL Basophils # 0.0 (0-0.2) k/uL Sodium 144 (137-145) mmol/L Potassium 4.7 (3.5-5.1) mmol/L Chloride 101 (98-107) mmol/L Carbon Dioxide 28 (22-30) mmol/L Anion Gap 15 mmol/L BUN 15 (9-20) mg/dL Creatinine 0.63 L (0.66-1.25) mg/dL Est GFR (CKD-EPI)AfAm >90 (>60 ml/min/1.73 sqM) Est GFR (CKD-EPI)NonAf >90 (>60 ml/min/1.73 sqM) Glucose 75 (74-99) mg/dL Calcium 9.2 (8.4-10.2) mg/dL Magnesium 1.5 L (1.6-2.3) mg/dL Serum Alcohol 286 H* mg/dL Disposition Clinical Impression: Alcohol intoxication Disposition: ADMITTED IP TO THIS HOSP Condition: Fair Referrals: Veena Bynum DO [Primary Care Provider] - 1-2 days
[2020-11-23] MEDS ORDERED: THIAMINE 100 MG TAB PO SCH (17:30)
[2020-11-23 18:05] LABS: Basophils % (A) 0 %; Eosinophils # (A) 0.1 k/uL (0-0.7); Eosinophils % (A) 1 %; HGB 13.8 gm/dL (13.0-17.5); Lymphocytes % (A) 41 %; MCHC 33.6 g/dL (31.0-37.0); MCV 92.4 fL (80.0-100.0); Mean Platelet Volume 8.2; Monocytes # (A) 0.4 k/uL (0-1.0); Monocytes % (A) 8 %; Neutrophils # (A) 2.4 k/uL (1.3-7.7); Neutrophils % (A) 47 %; RBC 4.44 m/uL (4.30-5.90); RDW 13.6 % (11.5-15.5)
[2020-11-23 18:14] LABS: Platelet Count 85 k/uL (150-450)
[2020-11-23 18:24] LABS: African American GFR (CKD) >90 (>60 ml/min/1.73 sqM); Anion Gap 15 mmol/L; Blood Urea Nitrogen 15 mg/dL (9-20); Calcium 9.2 mg/dL (8.4-10.2); Carbon Dioxide 28 mmol/L (22-30); Chloride 101 mmol/L (98-107); Glucose 75 mg/dL (74-99); Magnesium 1.5 mg/dL (1.6-2.3); Non-African American GFR(CKD) >90 (>60 ml/min/1.73 sqM); Potassium 4.7 mmol/L (3.5-5.1); Sodium 144 mmol/L (137-145)
[2020-11-23 18:33] LABS: Alcohol 286 mg/dL
[2020-11-23] MEDS ORDERED: MAGNESIUM OXIDE 400 MG TAB PO STA (18:37)
[2020-11-23] MEDS ORDERED: NALOXONE 0.4 MG/ML 1 ML VIAL IV PRN (18:43)
[2020-11-23] MEDS ORDERED: LORazepam 2 MG/ML INJ IV PRN (18:44)
[2020-11-23] MEDS ORDERED: THIAMINE 100 MG/ML 2 ML VIAL IM STA (18:44)
[2020-11-23] MEDS: SODIUM CHLORIDE 0.9% 1,000 ML IV SCH (20:55)
[2020-11-23] MEDS: LORazepam 2 MG/ML INJ IV PRN (20:55)
[2020-11-23] MEDS ORDERED: PANTOPRAZOLE 40 MG TABLET PO PRN (21:03)
[2020-11-23] MEDS: MAGNESIUM OXIDE 400 MG TAB PO SCH (21:16)
[2020-11-23] MEDS: ONDANSETRON 4 MG/2 ML VIAL IVP PRN (21:19)
[2020-11-23] MEDS: traZODone HCL 100 MG TAB PO SCH (21:21)
[2020-11-23] MEDS: cloNIDine HCL 0.1 MG TAB PO SCH (21:21)
[2020-11-23] MEDS: GABAPENTIN 300 MG CAP PO SCH (21:21)
[2020-11-23] MEDS: chlordiazePOXIDE 25 MG CAP PO SCH (21:21)
[2020-11-24] MEDS: LORazepam 2 MG/ML INJ IV PRN ×5 (02:39→20:21)
[2020-11-24] MEDS: FLUTICASONE 50MCG/SPRAY NASAL 16GM EA NOSTRIL PRN (03:07)
[2020-11-24] MEDS: MELOXICAM 7.5 MG TAB PO SCH (09:36)
[2020-11-24] MEDS: LOSARTAN 50 MG TAB PO SCH (09:36)
[2020-11-24] MEDS: chlordiazePOXIDE 25 MG CAP PO SCH ×2 (09:36→20:20)
[2020-11-24] MEDS: MAGNESIUM OXIDE 400 MG TAB PO SCH ×2 (09:36→20:20)
[2020-11-24] MEDS: GABAPENTIN 300 MG CAP PO SCH ×3 (09:37→20:21)
[2020-11-24] MEDS: cloNIDine HCL 0.1 MG TAB PO SCH ×3 (09:37→20:20)
[2020-11-24] MEDS: THIAMINE 100 MG TAB PO SCH ×2 (09:37→17:54)
--- NOTE | 2020-11-24 17:16 | P.HPIM ---
History of Present Illness H&P Date: 11/24/20 Chief Complaint: Alcohol intoxication Mr. 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 Patient states that he was depressed and started to drink alcohol but now wants to detox. Patient denies having any suicidal or homicidal ideation. He was recently discharged from the hospital 2 days ago for the same issues. After being discharged patient went home and started to drink large amounts of alcohol. Patient has multiple visits in the past 6 months for the same issue. Patient denies having any chest pain or palpations. No cough or difficulty breathing. No fevers chills or rigors. Patient denies having any abdominal pain nausea vomiting or diarrhea. Patient denies having any hematuria or dysuria. On reviewing his vitals temperature maximum of 38.9, heart rate 88, respiratory rate 16, blood pressure 113/78, saturation 94% on room air. On reviewing the labs white count of 5, hemoglobin 13.8, platelets 85. Sodium 144 cooperation 4.7, chloride 101, bicarb 28, BUN 15, creatinine 0.63, serum alcohol of 286. Coronar virus PCR is positive. EKG showing normal sinus rhythm. Review of Systems CONSTITUTIONAL: No fever, no malaise, no fatigue. HEENT: No recent visual problems or hearing problems. Denied any sore throat. CARDIOVASCULAR: No orthopnea, PND, no palpitations, no syncope. PULMONARY: No shortness of breath, no cough, no hemoptysis. GASTROINTESTINAL: No diarrhea, no nausea, no vomiting, no abdominal pain. Normoactive bowel sounds. NEUROLOGICAL: No headaches, no weakness, no numbness. HEMATOLOGICAL: Denies any bleeding or petechiae. GENITOURINARY: Denies any burning micturition, frequency, or urgency. MUSCULOSKELETAL/RHEUMATOLOGICAL: Denies any joint pain, swelling, or any muscle pain. ENDOCRINE: Denies any polyuria or polydipsia. Past Medical History Past Medical History: GERD/Reflux, GI Bleed, Hypertension, Osteoarthritis (OA), Pneumonia, Seizure Disorder, Sleep Apnea/CPAP/BIPAP Additional Past Medical History / Comment(s): Occasional bilateral pedal edema if stands long, arthritis possibly in back/ribs, MILIND without device, ETOH abuse, alcoholic seizures/blackouts/fainting 2017, alcoholic hepatitis, alcoholic gastritis, upper GI bleed, hypomagnesemia, spinal stenosis/herniated disc with surgery, bilateral varicose veins, hemorrhoids History of Any Multi-Drug Resistant Organisms: None Reported Past Surgical History: Appendectomy, Back Surgery, Tonsillectomy Additional Past Surgical History / Comment(s): bilateral discectomy, discectomy L5-S1, EGD Past Anesthesia/Blood Transfusion Reactions: Motion Sickness Past Psychological History: Anxiety, Depression Additional Psychological History / Comment(s): Pt lives alone no pets. Pt uses no assistive device. He drives. Smoking Status: Former smoker Past Alcohol Use History: Abuse, Daily, Heavy Additional Past Alcohol Use History / Comment(s): He has been in rehab in the past for ETOH abuse. Pt states he started on and off smoking as a young adult and has more often been a nonsmoker. He states a pack might last him 3-4 days. Pt states he drinks 1/2 gallon vodka since discharged on 11/21/20 Past Drug Use History: None Reported Additional Drug Use History / Comment(s): Pt smoked marijuana on occasion in the past. - Past Family History Father Family Medical History: Cancer, Dementia, Neurologic Disorder Additional Family Medical History / Comment(s): melanoma, parkinsons Mother Family Medical History: Hypertension, Musculoskeletal Disorder, Neurologic Disorder, Osteoarthritis (OA) Additional Family Medical History / Comment(s): Mother of motor neuron disease at the age of 78yrs. Medications and Allergies Home Medications Medication Instructions Recorded Confirmed Type Losartan Potassium 50 mg PO DAILY 01/03/19 11/23/20 History Pantoprazole Sodium 40 mg PO DAILY PRN 01/03/19 11/23/20 History Fluticasone Nasal [place] [Flonase 2 spray EA NOSTRIL BID PRN 10/11/19 11/23/20 History Nasal [place]] cloNIDine HCL [Catapres] 0.1 mg PO TID #90 tab 03/29/20 11/23/20 Rx traZODone HCL [Desyrel] 100 mg PO HS 05/14/20 11/23/20 History ALPRAZolam [Xanax] 1 mg PO BID PRN #10 tab 01/01/21 06/11/21 Rx Celecoxib [CeleBREX] 200 mg PO DAILY 11/17/20 11/23/20 History Ibuprofen [Motrin] 600 mg PO Q8HR PRN 11/17/20 11/23/20 History Gabapentin [Neurontin] 300 mg PO TID cap 11/21/20 11/23/20 Rx Magnesium Oxide [Mag-Ox] 400 mg PO BID 30 Days #60 tablet 11/21/20 11/23/20 Rx Thiamine [Vitamin B-1] 100 mg PO BID-W/MEALS 30 Days #60 11/21/20 11/23/20 Rx tab chlordiazePOXIDE HCl [Librium] See Taper PO BID 11/23/20 11/23/20 History Allergies Allergy/AdvReac Type Severity Reaction Status Date / Time Cephalosporins Allergy Severe Anaphylaxis Verified 11/23/20 18:16 diphenhydramine HCl Allergy Severe Anaphylaxis Verified 11/23/20 18:16 [From Benadryl] divalproex sodium Allergy Severe Anaphylaxis Verified 11/23/20 18:16 [From Depakote] ceftriaxone [From Rocephin] Allergy Anaphylaxis Verified 11/23/20 18:16 cephalexin [From Keflex] Allergy Anaphylaxis Verified 11/23/20 18:16 lisinopril Allergy Anaphylaxis Verified 11/23/20 18:16 Physical Exam Vitals: Vital Signs Temp Pulse Pulse Resp BP BP Pulse Ox 11/24/20 07:00 97.9 F 78 17 111/68 95 11/24/20 01:15 98.9 F 88 16 113/58 94 L 11/23/20 20:09 98.3 F 98 16 127/82 99 11/23/20 16:32 98.0 F 94 17 132/73 95 Intake and Output 11/23/20 11/24/20 11/24/20 22:59 06:59 14:59 Other: Voiding Method Toilet Urinal # Voids 1 3 Weight 124.738 kg GENERAL: The patient is alert and oriented x3, not in any acute distress. Well developed, well nourished. -Patient is generally weak, deconditioned HEENT: Pupils are round and equally reacting to light. EOMI. No scleral icterus. No conjunctival pallor. Normocephalic, atraumatic. No pharyngeal erythema. No thyromegaly. CARDIOVASCULAR: S1 and S2 present. No murmurs, rubs, or gallops. PULMONARY: Chest is clear to auscultation, no wheezing or crackles. ABDOMEN: Soft, mild tenderness, nondistended, normoactive bowel sounds. No palpable organomegaly. MUSCULOSKELETAL: No joint swelling or deformity. EXTREMITIES: No cyanosis, clubbing, or pedal edema. NEUROLOGICAL: Gross neurological examination did not reveal any focal deficits. SKIN: No rashes. No petechiae Results CBC & Chem 7: 11/25/20 06:04 11/25/20 06:04 Labs: Abnormal Lab Results - Last 24 Hours (Table) 11/23/20 11/23/20 11/23/20 Range/Units 17:56 17:56 19:15 Plt Count 85 L (150-450) k/uL Creatinine 0.63 L (0.66-1.25) mg/dL Magnesium 1.5 L (1.6-2.3) mg/dL Serum Alcohol 286 H* mg/dL Coronavirus (PCR) Detected A (Not Detectd) Thrombosis Risk Factor Assmnt - Choose All That Apply Any of the Below Risk Factors Present?: Yes Each Factor Represents 1 point: Obesity (BMI >25) Other Risk Factors: No Other congenital or acquired thrombophilia - If yes, enter type in comment: No Thrombosis Risk Factor Assessment Total Risk Factor Score: 1 Thrombosis Risk Factor Assessment Level: Low Risk Assessment and Plan Assessment: ASSESSMENT Severe alcohol abuse, with recurrent alcohol withdrawal Asymptomatic COVID 19 infection Deconditioning and loss of function secondary to alcoholism and complications Alcohol withdrawal seizure Recurrent falls secondary to above Mild alcoholic hepatitis Alcoholic gastritis Hypertension History of GERD Nicotine dependence Sleep apnea on CPAP/BiPAP History of GI bleed History of spinal stenosis with herniated disc status post surgery History of hemorrhoids PLAN: This is a pleasant 45 years old male who presents with alcohol abuse and withdrawal. Continue with CIWA protocol, thiamine, gentle hydration . Labs and medication were reviewed. Continue same treatment. Continue with symptomatic treatment. Resume home medication. Monitor lytes and vitals. DVT and GI prophylaxis. Further recommendations depends on the clinical course of the patient DVT prophylaxis: Subcutaneous heparin GI Prophylaxis: Pepcid PT/OT: Pending Prognosis is guarded
[2020-11-24] MEDS: traZODone HCL 100 MG TAB PO SCH (20:21)
[2020-11-24] MEDS: SODIUM CHLORIDE 0.9% 1,000 ML IV SCH (20:25)
[2020-11-25] MEDS: LORazepam 2 MG/ML INJ IV PRN ×4 (02:10→19:57)
[2020-11-25] MEDS: GABAPENTIN 300 MG CAP PO SCH ×3 (08:13→19:57)
[2020-11-25] MEDS: chlordiazePOXIDE 25 MG CAP PO SCH ×2 (08:13→19:57)
[2020-11-25] MEDS: MAGNESIUM OXIDE 400 MG TAB PO SCH ×2 (08:13→19:57)
[2020-11-25] MEDS: MELOXICAM 7.5 MG TAB PO SCH (08:13)
[2020-11-25] MEDS: LOSARTAN 50 MG TAB PO SCH (08:13)
[2020-11-25] MEDS: THIAMINE 100 MG TAB PO SCH ×2 (08:13→16:32)
[2020-11-25] MEDS: cloNIDine HCL 0.1 MG TAB PO SCH ×3 (08:13→19:57)
[2020-11-25] MEDS: ENOXAPARIN 40 MG/0.4 ML SYRINGE SQ SCH (08:14)
[2020-11-25] MEDS: FLUTICASONE 50MCG/SPRAY NASAL 16GM EA NOSTRIL PRN (08:20)
[2020-11-25 09:10] LABS: Basophils # (A) 0.01 X 10*3/uL (0.00-0.10); Basophils % (A) 0.2 %; Eosinophils # (A) 0.06 X 10*3/uL (0.04-0.35); Eosinophils % (A) 1.4 %; HCT 35.9 % (39.6-50.0); HGB 11.3 g/dL (13.0-17.0); Lymphocytes # (A) 1.85 X 10*3/uL (0.90-5.00); MCH 30.4 pg (27.0-32.0); MCHC 31.5 g/dL (32.0-37.0); MCV 96.5 fL (80.0-97.0); Monocytes # (A) 0.65 X 10*3/uL (0.20-1.00); Monocytes % (A) 15.5 %; Neutrophils # (A) 1.62 X 10*3/uL (1.80-7.70); Neutrophils % (A) 38.7 %; Platelet Count 179 X 10*3/uL (140-440); RBC 3.72 X 10*6/uL (4.40-5.60); RDW 13.2 % (11.5-14.5)
[2020-11-25 09:56] LABS: African American GFR (CKD) 123.3 (60.0-200.0); Albumin 3.9 g/dL (3.80-4.90); Albumin/Globulin Ratio 2.05 (1.60-3.17); Anion Gap 7.6 mmol/L (4.00-12.00); Calcium 8.4 mg/dL (8.7-10.3); Carbon Dioxide 29.4 mmol/L (21.6-31.8); Globulin 1.9 g/dL (1.6-3.3); Non-African American GFR(CKD) 106.4 (60.0-200.0); Potassium 4.2 mmol/L (3.5-5.5); Total Bilirubin 1.1 mg/dL (0.2-1.2); Total Protein 5.8 g/dL (6.2-8.2)
--- NOTE | 2020-11-25 15:00 | P.PN ---
Subjective Progress Note Date: 11/25/20 Principal diagnosis: Alcohol intoxication Mr. 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 Patient states that he was depressed and started to drink alcohol but now wants to detox. Patient denies having any suicidal or homicidal ideation. He was recently discharged from the hospital 2 days ago for the same issues. After being discharged patient went home and started to drink large amounts of alcohol. Patient has multiple visits in the past 6 months for the same issue. Patient denies having any chest pain or palpations. No cough or difficulty breathing. No fevers chills or rigors. Patient denies having any abdominal pain nausea vomiting or diarrhea. Patient denies having any hematuria or dysuria. On reviewing his vitals temperature maximum of 38.9, heart rate 88, respiratory rate 16, blood pressure 113/78, saturation 94% on room air. On reviewing the labs white count of 5, hemoglobin 13.8, platelets 85. Sodium 144 cooperation 4.7, chloride 101, bicarb 28, BUN 15, creatinine 0.63, serum alcohol of 286. Coronar virus PCR is positive. EKG showing normal sinus rhythm. On 11/25/2020- patient is seen and examined at the bedside. He is comfortably lying in bed appears to be no acute distress. Patient still complains of tremors and mild palpitations. He denies having any chest pain. No cough or difficulty breathing. No fevers chills or rigors. No abdominal pain nausea vomiting or diarrhea. No dysuria or hematuria. On reviewing the vitals temperature 98.1, heart rate 68, respiratory 16, blood pressure 110/70, saturating at 95% on room air. Reviewing the labs white count of 4.2, hemoglobin 11.3, platelets 179. Sodium 141, ratio 4.2, chloride 104, bicarbonate 29, BUN 20, creatinine 0.8. Active Medications Chlordiazepoxide HCl (Chlordiazepoxide 25 Mg Cap) 25 mg PO BID [facility] Last Admin: 11/25/20 08:13 Dose: 25 mg Documented by: Clonidine (Clonidine Hcl 0.1 Mg Tab) 0.1 mg PO TID [facility] Last Admin: 11/25/20 08:13 Dose: 0.1 mg Documented by: Enoxaparin Sodium (Enoxaparin 40 Mg/0.4 Ml Syringe) 40 mg SQ DAILY [facility] Last Admin: 11/25/20 08:14 Dose: 40 mg Documented by: Fluticasone Propionate (Fluticasone 50mcg/[place] Nasal 16gm) 2 spray EA NOSTRIL BID PRN PRN Reason: Allergy Symptoms Last Admin: 11/25/20 08:20 Dose: 2 spray Documented by: Gabapentin (Gabapentin 300 Mg Cap) 300 mg PO TID [facility] Last Admin: 11/25/20 08:13 Dose: 300 mg Documented by: Sodium Chloride (Saline 0.9%) 1,000 mls @ 20 mls/hr IV .Q24H [facility] Last Admin: 11/24/20 20:25 Dose: Not Given Documented by: Lorazepam (Lorazepam 2 Mg/Ml Inj) 1 mg IV Q2HR PRN PRN Reason: CIWA 8 or 9 Last Admin: 11/25/20 08:14 Dose: 1 mg Documented by: Lorazepam (Lorazepam 2 Mg/Ml Inj) 1 mg IV Q1HR PRN PRN Reason: CIWA 10 to 15 Last Admin: 11/25/20 14:23 Dose: 1 mg Documented by: Lorazepam (Lorazepam 2 Mg/Ml Inj) 2 mg IV Q10M PRN PRN Reason: CIWA 16 or higher Stop: 11/25/20 18:44 Losartan Potassium (Losartan 50 Mg Tab) 50 mg PO DAILY [facility] Last Admin: 11/25/20 08:13 Dose: 50 mg Documented by: Magnesium Oxide (Magnesium Oxide 400 Mg Tab) 400 mg PO BID [facility] Last Admin: 11/25/20 08:13 Dose: 400 mg Documented by: Meloxicam (Meloxicam 7.5 Mg Tab) 7.5 mg PO DAILY [facility] Last Admin: 11/25/20 08:13 Dose: 7.5 mg Documented by: Naloxone HCl (Naloxone 0.4 Mg/Ml 1 Ml Vial) 0.2 mg IV Q2M PRN PRN Reason: Opioid Reversal Ondansetron HCl (Ondansetron 4 Mg/2 Ml Vial) 4 mg IVP Q6HR PRN PRN Reason: Nausea And Vomiting Last Admin: 11/23/20 21:19 Dose: 4 mg Documented by: Pantoprazole Sodium (Pantoprazole 40 Mg Tablet) 40 mg PO AC-BRKFST PRN PRN Reason: GERD Thiamine HCl (Thiamine 100 Mg Tab) 100 mg PO BID-W/MEALS [facility] Last Admin: 11/25/20 08:13 Dose: 100 mg Documented by: Trazodone HCl (Trazodone Hcl 100 Mg Tab) 100 mg PO HS [facility] Last Admin: 11/24/20 20:21 Dose: 100 mg Documented by: Objective - Vital Signs Vital signs: Vital Signs Temp 98.1 F 11/25/20 14:06 Pulse 68 11/25/20 14:06 Resp 14 11/25/20 14:06 BP 110/70 11/25/20 14:06 Pulse Ox 95 11/25/20 14:06 Intake & Output 11/24/20 11/25/20 11/25/20 18:59 06:59 18:59 Intake Total 400 0 520 Balance 400 0 520 Intake: Intake, IV Titration 0 0 Amount Sodium Chloride 0.9% 1, 0 0 000 ml @ 20 mls/hr IV . Q24H [facility] Rx#:[id number] Oral 400 520 Other: Voiding Method Toilet Toilet Urinal Urinal # Voids 3 - Exam GENERAL: The patient is alert and oriented x3, not in any acute distress. Well developed, well nourished. -Patient is generally weak, deconditioned HEENT: Pupils are round and equally reacting to light. EOMI. No scleral icterus. No conjunctival pallor. CARDIOVASCULAR: S1 and S2 present. No murmurs, rubs, or gallops. PULMONARY: Chest is clear to auscultation, no wheezing or crackles. ABDOMEN: Soft, mild tenderness, nondistended, normoactive bowel sounds. No palpable organomegaly. MUSCULOSKELETAL: No joint swelling or deformity. EXTREMITIES: No cyanosis, clubbing, or pedal edema. Mild upper extremity tremors NEUROLOGICAL: Gross neurological examination did not reveal any focal deficits. SKIN: No rashes. No petechiae - Labs CBC & Chem 7: 11/25/20 06:04 11/25/20 06:04 Labs: Abnormal Lab Results - Last 24 Hours (Table) 11/25/20 11/25/20 Range/Units 06:04 06:04 WBC 4.20 L (4.50-10.00) X 10*3/uL RBC 3.72 L (4.40-5.60) X 10*6/uL Hgb 11.3 L (13.0-17.0) g/dL Hct 35.9 L (39.6-50.0) % MCHC 31.5 L (32.0-37.0) g/dL Neutrophils # 1.62 L (1.80-7.70) X 10*3/uL BUN/Creatinine Ratio 25.00 H (12.00-20.00) Ratio Calcium 8.4 L (8.7-10.3) mg/dL AST 109 H (14-35) U/L ALT 84 H (10-49) U/L Total Protein 5.8 L (6.2-8.2) g/dL Assessment and Plan Assessment: ASSESSMENT Severe alcohol abuse, with recurrent alcohol withdrawal Asymptomatic COVID-19 infection Deconditioning and loss of function secondary to alcoholism and complications Alcohol withdrawal seizure Recurrent falls secondary to above Mild alcoholic hepatitis Alcoholic gastritis Hypertension History of GERD Nicotine dependence Sleep apnea on CPAP/BiPAP History of GI bleed History of spinal stenosis with herniated disc status post surgery History of hemorrhoids PLAN: This is a pleasant 45 years old male who presents with alcohol abuse and withdrawal. Continue with CIWA protocol, thiamine, gentle hydration . Labs and medication were reviewed. Continue same treatment. Continue with symptomatic treatment. Monitor lytes and vitals. DVT and GI prophylaxis. Further recommendations depends on the clinical course of the patient DVT prophylaxis: Subcutaneous heparin GI Prophylaxis: Pepcid PT/OT: Pending Prognosis is guarded
[2020-11-25] MEDS: SODIUM CHLORIDE 0.9% 1,000 ML IV SCH (19:57)
[2020-11-25] MEDS: traZODone HCL 100 MG TAB PO SCH (19:57)
[2020-11-26] MEDS: LORazepam 2 MG/ML INJ IV PRN ×6 (00:02→23:07)
[2020-11-26] MEDS: FLUTICASONE 50MCG/SPRAY NASAL 16GM EA NOSTRIL PRN (00:40)
[2020-11-26] MEDS: MAGNESIUM OXIDE 400 MG TAB PO SCH ×2 (07:38→21:24)
[2020-11-26] MEDS: cloNIDine HCL 0.1 MG TAB PO SCH ×3 (07:38→21:24)
[2020-11-26] MEDS: THIAMINE 100 MG TAB PO SCH ×2 (07:38→15:44)
[2020-11-26] MEDS: MELOXICAM 7.5 MG TAB PO SCH (07:38)
[2020-11-26] MEDS: chlordiazePOXIDE 25 MG CAP PO SCH ×2 (07:39→21:24)
[2020-11-26] MEDS: ENOXAPARIN 40 MG/0.4 ML SYRINGE SQ SCH (07:39)
[2020-11-26] MEDS: LOSARTAN 50 MG TAB PO SCH (07:39)
[2020-11-26] MEDS: GABAPENTIN 300 MG CAP PO SCH ×3 (07:39→21:24)
[2020-11-26 09:07] LABS: African American GFR (CKD) 138.8 (60.0-200.0); Anion Gap 5.3 mmol/L (4.00-12.00); Calcium 8.6 mg/dL (8.7-10.3); Carbon Dioxide 26.7 mmol/L (21.6-31.8); Non-African American GFR(CKD) 119.7 (60.0-200.0); Potassium 4.6 mmol/L (3.5-5.5)
[2020-11-26 09:29] LABS: Basophils # (A) 0.01 X 10*3/uL (0.00-0.10); Basophils % (A) 0.2 %; Eosinophils # (A) 0.08 X 10*3/uL (0.04-0.35); Eosinophils % (A) 1.8 %; HCT 35.7 % (39.6-50.0); HGB 11.4 g/dL (13.0-17.0); Lymphocytes # (A) 2.01 X 10*3/uL (0.90-5.00); Lymphocytes % (A) 45.9 %; MCH 30.6 pg (27.0-32.0); MCHC 31.9 g/dL (32.0-37.0); Mean Platelet Volume 10.7 fL (9.5-12.2); Monocytes % (A) 13.7 %; Neutrophils # (A) 1.66 X 10*3/uL (1.80-7.70); Neutrophils % (A) 37.9 %; Platelet Count 182 X 10*3/uL (140-440); RBC 3.72 X 10*6/uL (4.40-5.60); RDW 13.2 % (11.5-14.5); WBC 4.38 X 10*3/uL (4.50-10.00)
[2020-11-26] MEDS: ONDANSETRON 4 MG/2 ML VIAL IVP PRN (11:46)
--- NOTE | 2020-11-26 17:00 | P.PN ---
Subjective Progress Note Date: 11/26/20 Principal diagnosis: Alcohol intoxication Mr. 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 Patient states that he was depressed and started to drink alcohol but now wants to detox. Patient denies having any suicidal or homicidal ideation. He was recently discharged from the hospital 2 days ago for the same issues. After being discharged patient went home and started to drink large amounts of alcohol. Patient has multiple visits in the past 6 months for the same issue. Patient denies having any chest pain or palpations. No cough or difficulty breathing. No fevers chills or rigors. Patient denies having any abdominal pain nausea vomiting or diarrhea. Patient denies having any hematuria or dysuria. On reviewing his vitals temperature maximum of 38.9, heart rate 88, respiratory rate 16, blood pressure 113/78, saturation 94% on room air. On reviewing the labs white count of 5, hemoglobin 13.8, platelets 85. Sodium 144 cooperation 4.7, chloride 101, bicarb 28, BUN 15, creatinine 0.63, serum alcohol of 286. Coronar virus PCR is positive. EKG showing normal sinus rhythm. On 11/25/2020- patient is seen and examined at the bedside. He is comfortably lying in bed appears to be no acute distress. Patient still complains of tremors and mild palpitations. He denies having any chest pain. No cough or difficulty breathing. No fevers chills or rigors. No abdominal pain nausea vomiting or diarrhea. No dysuria or hematuria. On reviewing the vitals temperature 98.1, heart rate 68, respiratory 16, blood pressure 110/70, saturating at 95% on room air. Reviewing the labs white count of 4.2, hemoglobin 11.3, platelets 179. Sodium 141, ratio 4.2, chloride 104, bicarbonate 29, BUN 20, creatinine 0.8. On 11/26/2020- patient is seen and examined at the bedside. As per discussion with the nursing staff patient required 7 mg of Ativan in the past 24 hours. Patient's symptoms of withdrawal symptom be improving. He denies having any chest pain or palpitations. No cough or difficulty in breathing. No abdominal pain nausea vomiting or diarrhea. He is eating a regular diet. On reviewing the vitals temperature of 98, heart rate 71, respiratory rate 14, blood pressure 92/52, saturating at 94% on room air. On reviewing the last and this morning white count of 4.3, hemoglobin 11.4, platelets 182. Sodium 137 compression 4.6, chloride 105, bicarbonate 26, BUN 8, creatinine 0.6. Medications medications have been reviewed Objective - Vital Signs Vital signs: Vital Signs Temp 98.0 F 11/26/20 07:05 Pulse 58 L 11/26/20 07:05 Resp 16 11/26/20 07:05 BP 126/79 11/26/20 07:05 Pulse Ox 99 11/26/20 07:05 Intake & Output 11/25/20 11/26/20 11/26/20 18:59 06:59 18:59 Intake Total 520 Balance 520 Intake: Oral 520 Other: Voiding Method Toilet Toilet Toilet Urinal Urinal # Voids 3 2 - Exam GENERAL: The patient is alert and oriented x3, not in any acute distress. -Patient is generally weak, deconditioned HEENT: Pupils are round and equally reacting to light. EOMI. No scleral icterus. No conjunctival pallor. CARDIOVASCULAR: S1 and S2 present. No murmurs, rubs, or gallops. PULMONARY: Chest is clear to auscultation, no wheezing or crackles. ABDOMEN: Soft, mild tenderness, nondistended, normoactive bowel sounds. MUSCULOSKELETAL: No joint swelling or deformity. EXTREMITIES: No cyanosis, clubbing, or pedal edema. Mild upper extremity tremors NEUROLOGICAL: Gross neurological examination did not reveal any focal deficits. SKIN: No rashes. No petechiae - Labs CBC & Chem 7: 11/26/20 05:48 11/26/20 05:48 Labs: Abnormal Lab Results - Last 24 Hours (Table) 11/26/20 11/26/20 Range/Units 05:48 05:48 WBC 4.38 L (4.50-10.00) X 10*3/uL RBC 3.72 L (4.40-5.60) X 10*6/uL Hgb 11.4 L (13.0-17.0) g/dL Hct 35.7 L (39.6-50.0) % MCHC 31.9 L (32.0-37.0) g/dL Neutrophils # 1.66 L (1.80-7.70) X 10*3/uL BUN/Creatinine Ratio 30.00 H (12.00-20.00) Ratio Calcium 8.6 L (8.7-10.3) mg/dL Assessment and Plan Assessment: ASSESSMENT Severe alcohol abuse, with recurrent alcohol withdrawal Asymptomatic COVID-19 infection Deconditioning and loss of function secondary to alcoholism and complications Alcohol withdrawal seizure Recurrent falls secondary to above Mild alcoholic hepatitis Alcoholic gastritis Hypertension History of GERD Nicotine dependence Sleep apnea on CPAP/BiPAP History of GI bleed History of spinal stenosis with herniated disc status post surgery History of hemorrhoids PLAN: This is a pleasant 45 years old male who presents with alcohol abuse and withdrawal. Continue with CIWA protocol, thiamine, gentle hydration . Labs and medication were reviewed. Continue same treatment. Continue with symptomatic treatment. DVT prophylaxis: Subcutaneous heparin. GI Prophylaxis: Pepcid. Anticipate discharge in the next 24 hours.
[2020-11-26] MEDS: traZODone HCL 100 MG TAB PO SCH (21:24)
[2020-11-27] MEDS: SODIUM CHLORIDE 0.9% 1,000 ML IV SCH (00:13)
[2020-11-27] MEDS: LORazepam 2 MG/ML INJ IV PRN (03:24)
[2020-11-27] MEDS: chlordiazePOXIDE 25 MG CAP PO SCH (08:15)
[2020-11-27] MEDS: MAGNESIUM OXIDE 400 MG TAB PO SCH (08:15)
[2020-11-27] MEDS: MELOXICAM 7.5 MG TAB PO SCH (08:15)
[2020-11-27] MEDS: THIAMINE 100 MG TAB PO SCH (08:15)
[2020-11-27] MEDS: GABAPENTIN 300 MG CAP PO SCH (08:15)
[2020-11-27] MEDS: cloNIDine HCL 0.1 MG TAB PO SCH (08:15)
[2020-11-27] MEDS: ENOXAPARIN 40 MG/0.4 ML SYRINGE SQ SCH (08:16)
[2020-11-27] MEDS: LOSARTAN 50 MG TAB PO SCH (08:17)
[2020-11-27 08:54] VITALS: RESP 20
[2020-11-27 15:13] VITALS: BP 121/76; PULSE 92; TEMP 97.5
--- NOTE | 2020-11-28 15:39 | P.DS ---
Providers Date of admission: 11/26/20 13:11 Expected date of discharge: 11/28/20 Attending physician: Alma Hansen MD Primary care physician: Veena Tabor Hospital Course: Final diagnosis Severe alcohol abuse, with recurrent alcohol withdrawal Asymptomatic COVID-19 infection Deconditioning and loss of function secondary to alcoholism and complications Alcohol withdrawal seizure Recurrent falls secondary to above Mild alcoholic hepatitis Alcoholic gastritis Hypertension History of GERD Nicotine dependence Sleep apnea on CPAP/BiPAP History of GI bleed History of spinal stenosis with herniated disc status post surgery History of hemorrhoids Discharge disposition Patient is being discharged in a stable condition with guarded prognosis to home. Patient will follow-up with Dr. Tabor upon discharge. Patient to also follow-up with [facility] for continued alcohol rehab and resources.. Total time taken is greater than 35 minutes. Hospital course Alcohol intoxication Mr. 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 Patient states that he was depressed and started to drink alcohol but now wants to detox. Patient denies having any suicidal or homicidal ideation. He was recently discharged from the hospital 2 days ago for the same issues. After being discharged patient went home and started to drink large amounts of alcohol. Patient has multiple visits in the past 6 months for the same issue. Patient denies having any chest pain or palpations. No cough or difficulty breathing. No fevers chills or rigors. Patient denies having any abdominal pain nausea vomiting or diarrhea. Patient denies having any hematuria or dysuria. On reviewing his vitals temperature maximum of 38.9, heart rate 88, respiratory rate 16, blood pressure 113/78, saturation 94% on room air. On reviewing the labs white count of 5, hemoglobin 13.8, platelets 85. Sodium 144 cooperation 4.7, chloride 101, bicarb 28, BUN 15, creatinine 0.63, serum alcohol of 286. Coronar virus PCR is positive. EKG showing normal sinus rhythm. On 11/25/2020- patient is seen and examined at the bedside. He is comfortably lying in bed appears to be no acute distress. Patient still complains of tremors and mild palpitations. He denies having any chest pain. No cough or difficulty breathing. No fevers chills or rigors. No abdominal pain nausea vomiting or diarrhea. No dysuria or hematuria. On reviewing the vitals temperature 98.1, heart rate 68, respiratory 16, blood pressure 110/70, saturating at 95% on room air. Reviewing the labs white count of 4.2, hemoglobin 11.3, platelets 179. Sodium 141, ratio 4.2, chloride 104, bicarbonate 29, BUN 20, creatinine 0.8. On 11/26/2020- patient is seen and examined at the bedside. As per discussion with the nursing staff patient required 7 mg of Ativan in the past 24 hours. Patient's symptoms of withdrawal symptom be improving. He denies having any chest pain or palpitations. No cough or difficulty in breathing. No abdominal pain nausea vomiting or diarrhea. He is eating a regular diet. On reviewing the vitals temperature of 98, heart rate 71, respiratory rate 14, blood pressure 92/52, saturating at 94% on room air. On reviewing the last and this morning white count of 4.3, hemoglobin 11.4, platelets 182. Sodium 137 compression 4.6, chloride 105, bicarbonate 26, BUN 8, creatinine 0.6. 11/27/2020 Is seen and evaluated in follow-up this morning patient maintained on CIWA protocol and requesting Ativan multiple times. Vital signs are stable. Patient denies any shortness of breath or chest pain. Patient needs to follow-up with primary care provider upon discharge along with [facility] and discuss with previous rehab center about readmission for alcohol rehab. Patient was noted to be Covid positive on admission in the ER this admission although continues to be asymptomatic. Encourage the patient to continue to isolate for an additional 7 days with fluids and rest monitor for fever and any signs of worsening shortness of breath or difficulty breathing. Continue to wear your mask. Patient also instructed extensively about avoiding alcohol upon discharge. Patient is high risk for readmissions for EtOH abuse. Currently no reports of chest pain, shortness of breath, or palpitations. Patient is afebrile. No reports of nausea or vomiting and patient is tolerating diet. Patient will be discharged home today. Guarded prognosis. On exam vital signs are stable. Cardio S1, S2 are muffled. Respiratory shows d iminished breath sounds at the bases with no wheezing or rhonchi noted. Abdomen is soft and nontender. Nervous system shows no focal deficits. Please refer to medication reconciliation sheet for a list of medications. Patient Condition at Discharge: Fair Plan - Discharge Summary New Discharge Prescriptions: Continue Pantoprazole Sodium 40 mg PO DAILY PRN PRN Reason: GERD Losartan Potassium 50 mg PO DAILY Fluticasone Nasal [place] [Flonase Nasal [place]] 2 spray EA NOSTRIL BID PRN PRN Reason: Allergy Symptoms cloNIDine HCL [Catapres] 0.1 mg PO TID #90 tab traZODone HCL [Desyrel] 100 mg PO HS ALPRAZolam [Xanax] 1 mg PO BID PRN #10 tab PRN Reason: Anxiety Ibuprofen [Motrin] 600 mg PO Q8HR PRN PRN Reason: Pain Gabapentin [Neurontin] 300 mg PO TID cap Thiamine [Vitamin B-1] 100 mg PO BID-W/MEALS 30 Days #60 tab Celecoxib [CeleBREX] 200 mg PO DAILY Magnesium Oxide [Mag-Ox] 400 mg PO BID 30 Days #60 tablet chlordiazePOXIDE HCl [Librium] See Taper PO BID Discharge Medication List Losartan Potassium 50 mg PO DAILY 01/03/19 [History] Pantoprazole Sodium 40 mg PO DAILY PRN 01/03/19 [History] Fluticasone Nasal [place] [Flonase Nasal [place]] 2 spray EA NOSTRIL BID PRN 10/11/19 [History] cloNIDine HCL [Catapres] 0.1 mg PO TID #90 tab 03/29/20 [Rx] traZODone HCL [Desyrel] 100 mg PO HS 05/14/20 [History] ALPRAZolam [Xanax] 1 mg PO BID PRN #10 tab 06/15/20 [Rx] Celecoxib [CeleBREX] 200 mg PO DAILY 11/17/20 [History] Ibuprofen [Motrin] 600 mg PO Q8HR PRN 11/17/20 [History] Gabapentin [Neurontin] 300 mg PO TID cap 11/21/20 [Rx] Magnesium Oxide [Mag-Ox] 400 mg PO BID 30 Days #60 tablet 11/21/20 [Rx] Thiamine [Vitamin B-1] 100 mg PO BID-W/MEALS 30 Days #60 tab 11/21/20 [Rx] chlordiazePOXIDE HCl [Librium] See Taper PO BID 11/23/20 [History] Follow up Appointment(s)/Referral(s): Veena Tabor DO [Primary Care Provider] - 1-2 days Patient Instructions/Handouts: Abuse of Alcohol (DC), Alcohol Withdrawal (DC) Activity/Diet/Wound Care/Special Instructions: Activity Limited until follow-up Follow-up with primary care provider upon discharge Continue with Librium taper Continue to isolate for the next 7-10 days Encourage fluids and rest Follow-up with [facility] for more alcohol rehab Consider rehabilitation center upon discharge AVOID ALCOHOL Continue current diet Discharge Disposition: HOME SELF-CARE
== END 2020-11-27 15:27 | disposition home or self-care (01) | DRG 896 ==
LOC: EC 16:29 → 6NMEDSUR 18:43 → OBSVTOIN 11-26 13:11
PROVIDERS: ADMIT Internal Medicine; ATTEND Internal Medicine
PROC: HZ2ZZZZ Detoxification Services for Substance Abuse Treatment (ICD-10-PCS; principal; 2020-11-26)
DX: F10.229 Alcohol dependence with intoxication, unspecified (principal); U07.1 COVID-19; F10.239 Alcohol dependence with withdrawal, unspecified; G40.909 Epilepsy, unspecified, not intractable, without status epilepticus; G31.2 Degeneration of nervous system due to alcohol; K70.10 Alcoholic hepatitis without ascites; R29.6 Repeated falls; R00.2 Palpitations; K29.20 Alcoholic gastritis without bleeding; F43.10 Post-traumatic stress disorder, unspecified; M48.00 Spinal stenosis, site unspecified; I10 Essential (primary) hypertension; F17.210 Nicotine dependence, cigarettes, uncomplicated; K21.9 Gastro-esophageal reflux disease without esophagitis; G47.33 Obstructive sleep apnea (adult) (pediatric); M19.90 Unspecified osteoarthritis, unspecified site; F41.9 Anxiety disorder, unspecified; F32.9 Major depressive disorder, single episode, unspecified; Z88.1 Allergy status to other antibiotic agents; Z88.8 Allergy status to other drugs, medicaments and biological substances; Z79.899 Other long term (current) drug therapy; Z79.1 Long term (current) use of non-steroidal anti-inflammatories (NSAID); Z87.19 Personal history of other diseases of the digestive system; Z87.01 Personal history of pneumonia (recurrent)
CPT/HCPCS: 36415; 80048; 80053; 80320; 83735; 85025; 87635; 93005; 99285

== ENCOUNTER 2020-12-02 16:56 | Inpatient (IN) | payer OTHER ==
[2020-12-02] MEDS ORDERED: SODIUM CHLORIDE 0.9% 1,000 ML IV STA (17:25)
[2020-12-02] MEDS ORDERED: THIAMINE 100 MG/ML 2 ML VIAL IM STA (17:25)
[2020-12-02] MEDS ORDERED: NALOXONE 0.4 MG/ML 1 ML VIAL IV PRN (17:33)
--- NOTE | 2020-12-02 17:33 | ED ---
General Adult HPI - General Chief complaint: Alcohol Stated complaint: ETOH Time Seen by Provider: 12/02/20 16:59 Source: patient, EMS, RN notes reviewed Mode of arrival: EMS Limitations: no limitations - History of Present Illness Initial comments: Patient is a pleasant 45-year-old male presenting to the emergency department with concerns for alcohol intoxication. Patient states he has been binge drinking alcohol last couple of weeks. Patient states he had approximately a fifth and a half of vodka today. Patient feels shaky. Patient does feel n auseated and did vomit once in route. Patient was given Zofran by EMS. - Related Data Home Medications Medication Instructions Recorded Confirmed Losartan Potassium 50 mg PO DAILY 01/03/19 12/02/20 Pantoprazole Sodium 40 mg PO DAILY PRN 01/03/19 12/02/20 Fluticasone Nasal [place] [Flonase 2 spray EA NOSTRIL BID PRN 10/11/19 12/02/20 Nasal [place]] traZODone HCL [Desyrel] 100 mg PO HS 05/14/20 12/02/20 Celecoxib [CeleBREX] 200 mg PO DAILY 11/17/20 12/02/20 Ibuprofen [Motrin] 600 mg PO Q8HR PRN 11/17/20 12/02/20 chlordiazePOXIDE HCl [Librium] See Taper PO BID 11/23/20 12/02/20 Previous Rx's Medication Instructions Recorded cloNIDine HCL [Catapres] 0.1 mg PO TID #90 tab 03/29/20 ALPRAZolam [Xanax] 1 mg PO BID PRN #10 tab 06/15/20 Gabapentin [Neurontin] 300 mg PO TID cap 11/21/20 Magnesium Oxide [Mag-Ox] 400 mg PO BID 30 Days #60 tablet 11/21/20 Thiamine [Vitamin B-1] 100 mg PO BID-W/MEALS 30 Days #60 11/21/20 tab Allergies Allergy/AdvReac Type Severity Reaction Status Date / Time Cephalosporins Allergy Severe Anaphylaxis Verified 12/02/20 17:30 diphenhydramine HCl Allergy Severe Anaphylaxis Verified 12/02/20 17:30 [From Benadryl] divalproex sodium Allergy Severe Anaphylaxis Verified 12/02/20 17:30 [From Depakote] ceftriaxone [From Rocephin] Allergy Anaphylaxis Verified 12/02/20 17:30 cephalexin [From Keflex] Allergy Anaphylaxis Verified 12/02/20 17:30 lisinopril Allergy Anaphylaxis Verified 12/02/20 17:30 Review of Systems ROS Statement: Those systems with pertinent positive or pertinent negative responses have been documented in the HPI. ROS Other: All systems not noted in ROS Statement are negative. Constitutional: Denies: fever Eyes: Denies: eye pain ENT: Denies: ear pain Respiratory: Denies: cough Cardiovascular: Denies: chest pain Endocrine: Denies: fatigue Gastrointestinal: Reports: nausea, vomiting. Denies: abdominal pain Genitourinary: Denies: dysuria Musculoskeletal: Denies: back pain Skin: Denies: rash Neurological: Denies: weakness Past Medical History Past Medical History: GERD/Reflux, GI Bleed, Hypertension, Osteoarthritis (OA), Pneumonia, Seizure Disorder, Sleep Apnea/CPAP/BIPAP Additional Past Medical History / Comment(s): Occasional bilateral pedal edema if stands long, arthritis possibly in back/ribs, MILIND without device, ETOH abuse, alcoholic seizures/blackouts/fainting 2017, alcoholic hepatitis, alcoholic gastritis, upper GI bleed, hypomagnesemia, spinal stenosis/herniated disc with surgery, bilateral varicose veins, hemorrhoids History of Any Multi-Drug Resistant Organisms: None Reported Past Surgical History: Appendectomy, Back Surgery, Tonsillectomy Additional Past Surgical History / Comment(s): bilateral discectomy, discectomy L5-S1, EGD Past Anesthesia/Blood Transfusion Reactions: Motion Sickness Past Psychological History: Anxiety, Depression Past Alcohol Use History: Abuse - Past Family History Father Family Medical History: Cancer, Dementia, Neurologic Disorder Additional Family Medical History / Comment(s): melanoma, parkinsons Mother Family Medical History: Hypertension, Musculoskeletal Disorder, Neurologic Disorder, Osteoarthritis (OA) Additional Family Medical History / Comment(s): Mother of motor neuron disease at the age of 78yrs. General Exam Limitations: no limitations General appearance: alert, in no apparent distress Head exam: Present: atraumatic, normocephalic Eye exam: Present: normal appearance, PERRL, EOMI, nystagmus Neck exam: Present: normal inspection. Absent: tenderness Respiratory exam: Present: normal lung sounds bilaterally Cardiovascular Exam: Present: regular rate, normal rhythm GI/Abdominal exam: Present: soft. Absent: tenderness Extremities exam: Present: normal inspection Neurological exam: Present: alert, CN II-XII intact. Absent: motor sensory deficit Expanded Motor strength exam: RUE: 5, LUE: 5, RLE: 5, LLE: 5 Psychiatric exam: Present: normal affect, normal mood Skin exam: Present: normal color Course Vital Signs 12/02/20 17:09 Temperature 97.6 F Pulse Rate 101 H Respiratory 18 Rate Blood Pressure 131/93 O2 Sat by Pulse 95 Oximetry - Reevaluation(s) Reevaluation #1: 12/02/20 19:04 Patient states he has no symptoms of chronic virus. Patient states he did test positive several weeks ago as well Medical Decision Making - Medical Decision Making Case was discussed with practitioner Zayra Webster who will admit for Dr. Arias, who admits for Dr. Mar. Patient has a breath alcohol test of 280. - Lab Data Result diagrams: 12/02/20 17:38 12/02/20 17:38 Disposition Clinical Impression: Alcohol intoxication Disposition: ADMITTED IP TO THIS HOSP Is patient prescribed a controlled substance at d/c from ED?: No Decision Time: 17:33
[2020-12-02] MEDS ORDERED: LORazepam 2 MG/ML INJ IV PRN (17:34)
[2020-12-02] MEDS: PANTOPRAZOLE 40 MG/10 ML VIAL IV SCH (17:54)
[2020-12-02] MEDS: LORazepam 2 MG/ML INJ IV PRN ×5 (17:54→21:31)
[2020-12-02 18:12] LABS: ALT 54 U/L (4-49); AST 96 U/L (17-59); African American GFR (CKD) >90 (>60 ml/min/1.73 sqM); Albumin 5.2 g/dL (3.5-5.0); Alkaline Phosphatase 68 U/L (38-126); Amylase 76 U/L (30-110); Anion Gap 21 mmol/L; Blood Urea Nitrogen 17 mg/dL (9-20); Calcium 9.2 mg/dL (8.4-10.2); Carbon Dioxide 22 mmol/L (22-30); Chloride 97 mmol/L (98-107); Glucose 86 mg/dL (74-99); Lipase 114 U/L (23-300); Magnesium 1.6 mg/dL (1.6-2.3); Non-African American GFR(CKD) >90 (>60 ml/min/1.73 sqM); Potassium 4.5 mmol/L (3.5-5.1); Sodium 140 mmol/L (137-145); Total Bilirubin 1.4 mg/dL (0.2-1.3); Total Protein 7.9 g/dL (6.3-8.2)
[2020-12-02 18:17] LABS: INR 0.8 (<1.2); Prothrombin Time 9.3 sec (9.0-12.0)
[2020-12-02 18:40] LABS: Basophils # (A) 0.1 k/uL (0-0.2); Basophils % (A) 1 %; Eosinophils % (A) 0 %; HCT 40.7 % (39.0-53.0); HGB 13.7 gm/dL (13.0-17.5); Lymphocytes # (A) 3.7 k/uL (1.0-4.8); Lymphocytes % (A) 39 %; MCH 30.8 pg (25.0-35.0); MCHC 33.7 g/dL (31.0-37.0); MCV 91.5 fL (80.0-100.0); Mean Platelet Volume 6.9; Monocytes # (A) 0.4 k/uL (0-1.0); Monocytes % (A) 4 %; Neutrophils # (A) 5.1 k/uL (1.3-7.7); Neutrophils % (A) 54 %; RBC 4.45 m/uL (4.30-5.90); RDW 13.9 % (11.5-15.5); WBC 9.5 k/uL (3.8-10.6)
[2020-12-02 18:47] LABS: Alcohol 358 mg/dL
[2020-12-02 18:48] LABS: Platelet Count 396 k/uL (150-450)
--- NOTE | 2020-12-02 22:23 | XR ---
EXAMINATION TYPE: XR chest 1V portable DATE OF EXAM: 12/02/2020 COMPARISON: 09/13/2020 HISTORY: Ethanol abuse. Covid. TECHNIQUE: FINDINGS: Heart and mediastinum are normal. Lungs are clear. Diaphragm is normal. Bony thorax is inta ct and the vascularity is normal. IMPRESSION: Normal chest. No change.
[2020-12-02 23:40] LABS: ALT 48 U/L (4-49); AST 83 U/L (17-59); African American GFR (CKD) >90 (>60 ml/min/1.73 sqM); Albumin 4.3 g/dL (3.5-5.0); Albumin/Globulin Ratio 1.9; Alkaline Phosphatase 47 U/L (38-126); Anion Gap 13 mmol/L; Blood Urea Nitrogen 16 mg/dL (9-20); C Reactive Protein <0.5 mg/dL (<1.0); Calcium 8.4 mg/dL (8.4-10.2); Carbon Dioxide 26 mmol/L (22-30); Chloride 100 mmol/L (98-107); Globulin 2.3 g/dL; Glucose 95 mg/dL (74-99); LDH 390 U/L (313-618); Non-African American GFR(CKD) >90 (>60 ml/min/1.73 sqM); Potassium 4.3 mmol/L (3.5-5.1); Sodium 139 mmol/L (137-145); Total Bilirubin 1.2 mg/dL (0.2-1.3); Total Protein 6.6 g/dL (6.3-8.2)
[2020-12-03] MEDS: LORazepam 2 MG/ML INJ IV PRN ×10 (00:04→19:18)
[2020-12-03 04:02] LABS: Appearance,Urine Clear (Clear); Bilirubin,Urine Negative (Negative); Blood,Urine Negative (Negative); Color,Urine Yellow; Glucose,Urine (UA) Negative (Negative); Ketones,Urine Negative (Negative); Leukocyte Esterase,Urine Negative (Negative); Nitrite,Urine Negative (Negative); Protein,Urine Negative (Negative); Specific Gravity,Urine 1.012 (1.001-1.035); Urobilinogen,Urine <2.0 mg/dL (<2.0)
--- NOTE | 2020-12-03 05:25 | HP ---
HISTORY AND PHYSICAL DATE OF SERVICE: 12/02/2020 CHIEF COMPLAINT: Alcohol intoxication. HISTORY OF PRESENT ILLNESS: This 45-year-old gentleman with a past medical history of multiple medical problems including history of alcoholism, history of GERD, GI bleed, hypertension, DJD, seizure disorder, being followed by Dr. Bynum in the outpatient setting was recently admitted with alcoholism, delirium tremens and other medical issues. The patient was discharged and subsequently the patient went to alcohol rehab facility. The patient spent a month before but currently after 10 days in the rehab the testing for COVID was found to be positive and he was discharged and currently the patient went home and started drinking again and the alcohol was found to be 350 and patient admitted to the hospital for further evaluation and treatment. There is no history of fever, rigors. No headache, loss of consciousness, seizures at this time. PAST MEDICAL HISTORY: History of recently COVID test positive, history of GERD, GI bleed, hypertension, history of alcohol and multiple hospital admissions. MEDICATIONS: Trazodone, Catapres, Librium, vitamin B1, magnesium oxide, Motrin, Neurontin, Flonase, Celebrex, Xanax. ALLERGIES: CEPHALOSPORIN, BENADRYL, ROCEPHIN KEFLEX, LISINOPRIL. FAMILY HISTORY: History of cancer, dementia, neurologic disorder, melanoma and Parkinson's. SOCIAL HISTORY: History of alcohol, history of previous smoking. REVIEW OF SYSTEMS: ENT No history of diminished hearing or vision. CARDIOVASCULAR No angina or palpitations. RESPIRATORY No cough, no hemoptysis. GI No nausea, vomiting, or diarrhea. No dysuria or hematuria. NERVOUS No numbness or weakness. ALLERGY/IMMUNOLOGY No asthma or hayfever. MUSCULOSKELETAL As mentioned earlier. HEMATOLOGY/ONCOLOGY Negative. ENDOCRINE No history of diabetes or hypothyroidism. CONSTITUTIONAL As mentioned earlier. DERMATOLOGY Negative. RHEUMATOLOGY Negative, PSYCHIATRY As mentioned earlier. PHYSICAL EXAMINATION: Alert and oriented x3. Pulse is 98, blood pressure 128/60, respirations 16, temperature 97.6, pulse ox 98% on room air skin: HEENT: Conjunctivae normal. Oral mucosa moist. NECK: No jugular venous distention. No lymph node enlargement. CARDIOVASCULAR: S1, S2, muffled. No S3, no S4, RESPIRATORY: Diminished breath sounds at the bases. No rhonchi, no crackles. ABDOMEN: Soft, nontender. LEGS: No edema, no swelling. NERVOUS SYSTEM: Higher functions mentioned earlier. Moves all four limbs. No focal motor or sensory deficits. LYMPHATICS: No lymph node in neck or axilla. SKIN: No rash. JOINTS: No active deforming arthropathy. LAB STUDIES: CBC within normal, sodium 140, potassium 4.5, bilirubin is 1.4, AST is 96, ALT is 54. Other labs are noted. ASSESSMENT: 1. Acute alcohol intoxication. 2. Change in mental status, acute metabolic encephalopathy secondary to alcohol. 3. Elevated AST ALT with alcoholic hepatitis. 4. COVID-19 positive. 5. History of delirium tremens. 6. History of gastroesophageal reflux disease. 7. History of GI bleed. 8. Hypertension. 9. History of DJD. 10.History of pneumonia. 11.History of seizure disorder. 12.History of sleep apnea. 13.History of alcoholic seizures. 14.History of alcoholic hepatitis. 15.Appendectomy. 16.History of back surgery. 17.History of anxiety, depression. 18.FULL CODE. 19.Obesity with body mass index of 34.2. RECOMMENDATIONS AND DISCUSSION: In this 45-year-old gentleman who presented with multiple complex medical issues, we will monitor the patient closely, continue the current medications. We will initiate CIWA protocol. Patient has a strong history of delirium tremens. 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 Otherwise, resume the home medications. The patient is also COVID-19 positive, I would recommend basic workup including chest x- ray and inflammatory markers of COVID-19 also. Otherwise, the prognosis is guarded because of multiple complex medical issues. Further recommendations to follow. MMODL / IJN: [id number] /
[2020-12-03] MEDS: MULTIVITAMINS, THERA 1 EACH TAB PO SCH (07:43)
[2020-12-03] MEDS: PANTOPRAZOLE 40 MG/10 ML VIAL IV SCH (07:43)
[2020-12-03] MEDS: THIAMINE 100 MG TAB PO SCH ×2 (07:43→16:56)
[2020-12-03 09:25] LABS: Basophils # (A) 0.03 X 10*3/uL (0.00-0.10); Basophils % (A) 0.8 %; Eosinophils # (A) 0.04 X 10*3/uL (0.04-0.35); HCT 33.6 % (39.6-50.0); HGB 11.3 g/dL (13.0-17.0); Lymphocytes # (A) 1.54 X 10*3/uL (0.90-5.00); Lymphocytes % (A) 38.7 %; MCHC 33.6 g/dL (32.0-37.0); MCV 92.3 fL (80.0-97.0); Mean Platelet Volume 9.4 fL (9.5-12.2); Monocytes # (A) 0.39 X 10*3/uL (0.20-1.00); Monocytes % (A) 9.8 %; Neutrophils # (A) 1.97 X 10*3/uL (1.80-7.70); Neutrophils % (A) 49.4 %; Platelet Count 244 X 10*3/uL (140-440); RBC 3.64 X 10*6/uL (4.40-5.60); RDW 13.9 % (11.5-14.5); WBC 3.98 X 10*3/uL (4.50-10.00)
[2020-12-03 09:39] LABS: Ferritin 501.8 ng/mL (22.0-322.0)
[2020-12-03] MEDS ORDERED: METOCLOPRAMIDE 5 MG/ML 2 ML VIAL IVP PRN (11:27)
[2020-12-03] MEDS ORDERED: IBUPROFEN 600 MG TAB PO PRN (15:47)
[2020-12-03] MEDS ORDERED: ALPRAZolam 1 MG TAB PO PRN (15:47)
[2020-12-03] MEDS ORDERED: FLUTICASONE 50MCG/SPRAY NASAL 16GM EA NOSTRIL PRN (15:47)
--- NOTE | 2020-12-03 16:36 | PN ---
PROGRESS NOTE DATE OF SERVICE: 12/03/2020 INTERVAL HISTORY: This 45-year-old gentleman admitted with acute alcohol intoxication with full-blown DTs at this time. The patient is noted to be severely tremulous. The patient is also COVID positive. No chest pain. No palpitations. No fever. The patient was sent out from the rehab after being tested for positive after 10 days of inpatient rehab. PHYSICAL EXAMINATION: GENERAL: Alert and attentive. VITAL SIGNS: Pulse 89, blood pressure 120/50, respiration 18, temperature 98.9, pulse ox 98% on room air. HEENT: Conjunctivae normal. CARDIOVASCULAR: Normal. RESPIRATORY: Normal, Respiration in the bases with scattered rhonchi. ABDOMEN: Soft, nontender. LEGS: No edema. LABS: WBC 3.98, hemoglobin 11.3. D-dimer is 0.98. The ESR is 8, CRP 0.5. COVID 19 is positive. The chest x-ray shows normal findings. ASSESSMENT: 1. Acute alcohol intoxication. 2. Acute delirium tremens. 3. Change in mental status. 4. Acute metabolic encephalopathy. 5. Elevated AST and ALT with alcoholic hepatitis. 6. Elevated D-dimer. 7. Positive history of delirium tremens. 8. History of gastroesophageal reflux disease. 9. History of gastrointestinal bleed. 10.Hypertension. 11.History of degenerative joint disease. 12.History of pneumonia. 13.History of seizure disorder. 14.History of sleep apnea. 15.History of alcoholic seizure. 16.Alcoholic hepatitis. 17.History of appendectomy. 18.History of back surgery. 19.Anxiety, depression. 20.Obesity with body mass of 34.8. 21.Full code. RECOMMENDATIONS: Continue current management and symptomatic treatment. Otherwise, at this time I recommend a CT angio of the chest to rule out the possibility of pulmonary embolism. Continue the rest of medication. Vitamin D2 precautions and prophylaxis guarded prognosis. See orders for details. MMODL / IJN: [id number] /
[2020-12-03] MEDS: cloNIDine HCL 0.1 MG TAB PO SCH (16:56)
[2020-12-03] MEDS: GABAPENTIN 300 MG CAP PO SCH (16:56)
--- NOTE | 2020-12-03 19:14 | CT ---
EXAMINATION TYPE: CT angio chest DATE OF EXAM: 12/03/2020 COMPARISON: None HISTORY: R/O PE. Covid + CT DLP: 665 mGycm Automated exposure control for dose reduction was used. CONTRAST: Performed with IV Contrast, patient injected with 100 mL of Isovue 370. There are 3-D post processed images. The lungs are clear of infiltrate. There is no pleural effusion. There is no pericardial effusion. He art size is normal. There are no hilar masses. There is no mediastinal adenopathy. Thoracic aorta is intact. There is no aneurysm or dissection. There is no evidence of filling defect in the pulmonary arteries. There is intact thoracic spine. The re is no compression fracture. Sternum is intact. IMPRESSION: Normal exam. No evidence of pulmonary embolism.
[2020-12-03] MEDS: ONDANSETRON 4 MG/2 ML VIAL IVP PRN (19:19)
[2020-12-04] MEDS: GABAPENTIN 300 MG CAP PO SCH ×4 (00:14→21:44)
[2020-12-04] MEDS: chlordiazePOXIDE 25 MG CAP PO SCH ×3 (00:14→21:44)
[2020-12-04] MEDS: PANTOPRAZOLE 40 MG/10 ML VIAL IV SCH ×2 (00:14→09:54)
[2020-12-04] MEDS: LORazepam 2 MG/ML INJ IV PRN ×7 (00:15→22:53)
[2020-12-04] MEDS: MAGNESIUM OXIDE 400 MG TAB PO SCH ×3 (00:15→21:44)
[2020-12-04] MEDS: cloNIDine HCL 0.1 MG TAB PO SCH ×4 (00:15→21:44)
[2020-12-04] MEDS: traZODone HCL 100 MG TAB PO SCH ×2 (00:15→21:44)
[2020-12-04] MEDS: ONDANSETRON 4 MG/2 ML VIAL IVP PRN (07:36)
[2020-12-04] MEDS: THIAMINE 100 MG TAB PO SCH ×2 (07:46→17:25)
[2020-12-04] MEDS: MULTIVITAMINS, THERA 1 EACH TAB PO SCH (09:51)
[2020-12-04] MEDS: MELOXICAM 7.5 MG TAB PO SCH (09:51)
[2020-12-04] MEDS: LOSARTAN 50 MG TAB PO SCH (09:54)
--- NOTE | 2020-12-04 18:08 | PN ---
PROGRESS NOTE DATE OF SERVICE: 12/04/2020 HISTORY: This 45-year-old gentleman who was admitted with acute alcohol intoxication, also had acute delirium tremens. The patient is also COVID negative. A chest CTA which was reviewed personally by me showed no evidence of any pulmonary embolism. The patient is being closely monitored at this time. There is no history of fever or rigors. PHYSICAL EXAMINATION: Alert and oriented x2. Pulse 78, blood pressure 95/62, respiration 18, temperature 98.7, pulse ox 98% on room air. HEENT: Conjunctivae normal. CARDIAC: S1, S2, muffled. RESPIRATORY SYSTEM: Breath sounds diminished at the bases. No rhonchi, no crackles. ABDOMEN: Soft nontender. NERVOUS SYSTEM: Normal. No diffuse tremors, gross tremors. Mild diffuse weakness. LABS: WBC 3.8, hemoglobin 11.3. ASSESSMENT: 1. Acute alcohol intake, intoxication. 2. acute delirium tremens. 3. Change in mental status, acute metabolic encephalopathy. 4. Elevated AST ALT with mild alcoholic hepatitis. 5. Elevated D-dimer. 6. Positive history of delirium tremens. 7. History of gastroesophageal reflux disease. 8. History of gastrointestinal bleed. 9. Hypertension. 10.History of degenerative joint disease. 11.History of pneumonia. 12.History of seizure disorder. 13.History of sleep apnea. 14.History of alcoholic seizures. 15.History of alcoholic hepatitis. 16.History of appendectomy. 17.History of back surgery. 18.History of depression. 19.Obesity with body mass of 34.8; COVID- 19 positive with minimal elevation of inflammatory markers. 20.FULL CODE. RECOMMENDATIONS AND DISCUSSION: I recommend to continue current medications, continue to monitor. Symptomatic treatment. Otherwise, [facility] protocol, supplement vitamins. Prognosis guarded. Social Work Case Management to arrange for outpatient followup and further recommendations to follow. MMODL / IJN: [id number] /
[2020-12-04] MEDS: PANTOPRAZOLE 40 MG TABLET PO SCH (21:44)
[2020-12-05] MEDS: LORazepam 2 MG/ML INJ IV PRN ×2 (02:58→08:27)
[2020-12-05 07:53] VITALS: BP 111/69; PULSE 57; RESP 17; TEMP 97.6
[2020-12-05] MEDS: cloNIDine HCL 0.1 MG TAB PO SCH (08:26)
[2020-12-05] MEDS: MELOXICAM 7.5 MG TAB PO SCH (08:26)
[2020-12-05] MEDS: MULTIVITAMINS, THERA 1 EACH TAB PO SCH (08:27)
[2020-12-05] MEDS: PANTOPRAZOLE 40 MG TABLET PO SCH (08:27)
[2020-12-05] MEDS: MAGNESIUM OXIDE 400 MG TAB PO SCH (08:27)
[2020-12-05] MEDS: GABAPENTIN 300 MG CAP PO SCH (08:27)
[2020-12-05] MEDS: LOSARTAN 50 MG TAB PO SCH (08:27)
[2020-12-05] MEDS: chlordiazePOXIDE 25 MG CAP PO SCH (08:27)
[2020-12-05] MEDS: THIAMINE 100 MG TAB PO SCH (08:27)
--- NOTE | 2020-12-06 13:21 | P.DS ---
Providers Date of admission: 12/04/20 09:25 Expected date of discharge: 12/05/20 Attending physician: Aida Arias Primary care physician: Veena Tabor Hospital Course: Final diagnosis Acute alcohol intake, intoxication Acute delirium tremens Change in mental status, acute metabolic encephalopathy Elevated AST, ALT with mild alcoholic hepatitis Elevated d-dimer Positive history of delirium tremens Gastroesophageal reflux disease Hypertension History of degenerative joint disease History of sleep apnea History of alcoholic seizures history of alcoholic hepatitis Obesity with a BMI of 34.3 COVID-19 positive with minimal elevation of inflammatory markers Full code Discharge disposition Patient is being discharged in a stable condition with guarded prognosis to home. Patient will follow-up with Dr. Tabor upon discharge. Patient also follow-up outpatient with community mental health and continued psychiatric services. Total time taken is greater than 35 minutes. Hospital course This is a 45-year-old male who was admitted with acute alcohol intoxication also had acute delirium tremens and continues to be covid positive and being closely monitored. Patient was placed on CIWA protocol and appropriate home medications have been continued. Discussed with the patient at length about needing to go to rehab and possibly long-term rehab as he is high risk for rehospitalizations secondary to continued EtOH abuse and alcohol intoxication with withdrawals. Patient recently went to an alcohol rehab facility and stayed for the month and did well although was discharged and went home and drank and has had multiple re admissions since. Currently patient is covid positive although asymptomatic and there are no accepting rehab facilities that are accommodating Covid-positive patients at this time. Resources were provided by social work for rehab facilities and to continue with community mental health for psychiatric services. Instructed to follow-up with primary care provider upon discharge. Continue with Librium taper and avoid all alcohol intake. Currently no reports of chest pain, shortness of breath, or palpitations. Patient is afebrile. No reports of nausea or vomiting and patient is tolerating diet. Guarded prognosis secondary to multiple readmissions for continued alcohol abuse. On exam vital signs are stable. Cardio S1, S2 are muffled. Respiratory shows diminished breath sounds at the bases with no wheezing or rhonchi noted. Abdomen is soft and nontender. Nervous system shows no focal deficits. Please refer to medication reconciliation sheet for a list of medications. Patient Condition at Discharge: Stable Plan - Discharge Summary Discharge Rx Participant: No New Discharge Prescriptions: New Multivitamins, Thera [Multivitamin (formulary)] 1 each PO DAILY #30 tab Continue Pantoprazole Sodium 40 mg PO DAILY PRN PRN Reason: GERD Losartan Potassium 50 mg PO DAILY Fluticasone Nasal [place] [Flonase Nasal [place]] 2 spray EA NOSTRIL BID PRN PRN Reason: Allergy Symptoms traZODone HCL [Desyrel] 100 mg PO HS ALPRAZolam [Xanax] 1 mg PO BID PRN #10 tab PRN Reason: Anxiety Ibuprofen [Motrin] 600 mg PO Q8HR PRN PRN Reason: Pain Gabapentin [Neurontin] 300 mg PO TID cap Thiamine [Vitamin B-1] 100 mg PO BID-W/MEALS 30 Days #60 tab Celecoxib [CeleBREX] 200 mg PO DAILY Magnesium Oxide [Mag-Ox] 400 mg PO BID 30 Days #60 tablet chlordiazePOXIDE HCl [Librium] See Taper PO BID Discontinued cloNIDine HCL [Catapres] 0.1 mg PO TID #90 tab Discharge Medication List Losartan Potassium 50 mg PO DAILY 01/03/19 [History] Pantoprazole Sodium 40 mg PO DAILY PRN 01/03/19 [History] Fluticasone Nasal [place] [Flonase Nasal [place]] 2 spray EA NOSTRIL BID PRN 10/11/19 [History] traZODone HCL [Desyrel] 100 mg PO HS 05/14/20 [History] ALPRAZolam [Xanax] 1 mg PO BID PRN #10 tab 06/15/20 [Rx] Celecoxib [CeleBREX] 200 mg PO DAILY 11/17/20 [History] Ibuprofen [Motrin] 600 mg PO Q8HR PRN 11/17/20 [History] Gabapentin [Neurontin] 300 mg PO TID cap 11/21/20 [Rx] Magnesium Oxide [Mag-Ox] 400 mg PO BID 30 Days #60 tablet 11/21/20 [Rx] Thiamine [Vitamin B-1] 100 mg PO BID-W/MEALS 30 Days #60 tab 11/21/20 [Rx] chlordiazePOXIDE HCl [Librium] See Taper PO BID 11/23/20 [History] Multivitamins, Thera [Multivitamin (formulary)] 1 each PO DAILY #30 tab 12/05/20 [Rx] Follow up Appointment(s)/Referral(s): Veena Tabor DO [Primary Care Provider] - 1-2 days Patient Instructions/Handouts: Alcohol Intoxication (DC) Activity/Diet/Wound Care/Special Instructions: Activity Limited until follow-up Follow-up with primary care provider this week Continue current diet Avoid alcohol intake Follow-up with community mental health and outpatient resources for long-term rehab in the outpatient setting Discharge Disposition: HOME SELF-CARE
== END 2020-12-05 12:13 | disposition home or self-care (01) | DRG 896 ==
LOC: EC 16:56 → 6NMEDSUR 17:33 → OBSVTOIN 12-04 09:25
PROVIDERS: ADMIT Hospitalist; ATTEND Hospitalist
DX: F10.229 Alcohol dependence with intoxication, unspecified (principal); U07.1 COVID-19; G93.41 Metabolic encephalopathy; F10.231 Alcohol dependence with withdrawal delirium; K70.10 Alcoholic hepatitis without ascites; Y90.8 Blood alcohol level of 240 mg/100 ml or more; E66.9 Obesity, unspecified; F32.9 Major depressive disorder, single episode, unspecified; F41.9 Anxiety disorder, unspecified; G40.909 Epilepsy, unspecified, not intractable, without status epilepticus; I10 Essential (primary) hypertension; I83.93 Asymptomatic varicose veins of bilateral lower extremities; R79.1 Abnormal coagulation profile; M48.00 Spinal stenosis, site unspecified; M19.90 Unspecified osteoarthritis, unspecified site; K21.9 Gastro-esophageal reflux disease without esophagitis; Z68.34 Body mass index [BMI] 34.0-34.9, adult; Z79.1 Long term (current) use of non-steroidal anti-inflammatories (NSAID); Z80.8 Family history of malignant neoplasm of other organs or systems; Z82.0 Family history of epilepsy and other diseases of the nervous system; Z82.49 Family history of ischemic heart disease and other diseases of the circulatory system; Z87.01 Personal history of pneumonia (recurrent); Z87.891 Personal history of nicotine dependence; Z90.49 Acquired absence of other specified parts of digestive tract; Z82.61 Family history of arthritis; Z90.89 Acquired absence of other organs; Z87.19 Personal history of other diseases of the digestive system; Z88.1 Allergy status to other antibiotic agents; Z88.8 Allergy status to other drugs, medicaments and biological substances; Z98.890 Other specified postprocedural states
CPT/HCPCS: 36415; 71045; 71275; 80053; 80320; 81003; 82075; 82150; 82728; 83615; 83690; 83735; 85025; 85379; 85610; 85652; 86140; 87635; 99285

== ENCOUNTER 2020-12-09 11:12 | Observation (INO) | payer OTHER ==
[2020-12-09] MEDS ORDERED: SODIUM CHLORIDE 0.9% 1,000 ML IV STA (11:20)
[2020-12-09] MEDS ORDERED: THIAMINE 100 MG/ML 2 ML VIAL IM STA (11:20)
[2020-12-09] MEDS ORDERED: ONDANSETRON 4 MG/2 ML VIAL IVP STA (11:20)
--- NOTE | 2020-12-09 11:27 | ED ---
General Adult HPI - General Stated complaint: Detox Time Seen by Provider: 12/09/20 11:14 Source: patient, EMS, RN notes reviewed Mode of arrival: EMS Limitations: no limitations - History of Present Illness Initial comments: Patient is a pleasant 45-year-old male presenting to the emergency department with concern for alcohol use. Patient usually drinks around 2 of one fifth of alcohol daily. Last drink was late last night/early this morning. Patient is feeling shaky. Patient denies suicidal thoughts. No recent trauma. Patient also admits to having some nausea. - Related Data Home Medications Medication Instructions Recorded Confirmed Losartan Potassium 50 mg PO DAILY 01/03/19 12/09/20 Pantoprazole Sodium 40 mg PO DAILY PRN 01/03/19 12/09/20 Fluticasone Nasal [place] [Flonase 2 spray EA NOSTRIL BID PRN 10/11/19 12/09/20 Nasal [place]] traZODone HCL [Desyrel] 100 mg PO HS 05/14/20 12/09/20 Celecoxib [CeleBREX] 200 mg PO DAILY 11/17/20 12/09/20 Ibuprofen [Motrin] 600 mg PO Q8HR PRN 11/17/20 12/09/20 Previous Rx's Medication Instructions Recorded ALPRAZolam [Xanax] 1 mg PO BID PRN #10 tab 06/15/20 Gabapentin [Neurontin] 300 mg PO TID cap 11/21/20 Magnesium Oxide [Mag-Ox] 400 mg PO BID 30 Days #60 tablet 11/21/20 Thiamine [Vitamin B-1] 100 mg PO BID-W/MEALS 30 Days #60 11/21/20 tab Multivitamins, Thera [Multivitamin 1 each PO DAILY #30 tab 12/05/20 (formulary)] Allergies Allergy/AdvReac Type Severity Reaction Status Date / Time Cephalosporins Allergy Severe Anaphylaxis Verified 12/09/20 12:53 diphenhydramine HCl Allergy Severe Anaphylaxis Verified 12/09/20 12:53 [From Benadryl] divalproex sodium Allergy Severe Anaphylaxis Verified 12/09/20 12:53 [From Depakote] ceftriaxone [From Rocephin] Allergy Anaphylaxis Verified 12/09/20 12:53 cephalexin [From Keflex] Allergy Anaphylaxis Verified 12/09/20 12:53 lisinopril Allergy Anaphylaxis Verified 12/09/20 12:53 Review of Systems ROS Statement: Those systems with pertinent positive or pertinent negative responses have been documented in the HPI. ROS Other: All systems not noted in ROS Statement are negative. Constitutional: Denies: fever Eyes: Denies: eye pain ENT: Denies: ear pain Respiratory: Denies: cough Cardiovascular: Denies: chest pain Endocrine: Denies: fatigue Gastrointestinal: Reports: nausea. Denies: abdominal pain Genitourinary: Denies: dysuria Musculoskeletal: Denies: back pain Skin: Denies: rash Neurological: Denies: headache Psychiatric: Denies: suicidal thoughts Past Medical History Past Medical History: GERD/Reflux, GI Bleed, Hypertension, Osteoarthritis (OA), Pneumonia, Seizure Disorder, Sleep Apnea/CPAP/BIPAP Additional Past Medical History / Comment(s): Occasional bilateral pedal edema if stands long, arthritis possibly in back/ribs, MILIND without device, ETOH abuse, alcoholic seizures/blackouts/fainting 2017, alcoholic hepatitis, alcoholic gastritis, upper GI bleed, hypomagnesemia, spinal stenosis/herniated disc with surgery, bilateral varicose veins, hemorrhoids History of Any Multi-Drug Resistant Organisms: None Reported Past Surgical History: Appendectomy, Back Surgery, Tonsillectomy Additional Past Surgical History / Comment(s): bilateral discectomy, discectomy L5-S1, EGD Past Anesthesia/Blood Transfusion Reactions: Motion Sickness Past Psychological History: Anxiety, Depression Additional Psychological History / Comment(s): Pt lives alone no pets. Pt uses no assistive device. He drives. Smoking Status: Current every day smoker Past Alcohol Use History: Abuse Additional Past Alcohol Use History / Comment(s): He has been in rehab in the past for ETOH abuse. Pt states he started on and off smoking as a young adult and has more often been a nonsmoker. He states a pack might last him 3-4 days. Pt states he drinks 1/2 gallon vodka since discharged on 11/21/20 Past Drug Use History: None Reported Additional Drug Use History / Comment(s): Pt smoked marijuana on occasion in the past. - Past Family History Father Family Medical History: Cancer, Dementia, Neurologic Disorder Additional Family Medical History / Comment(s): melanoma, parkinsons Mother Family Medical History: Hypertension, Musculoskeletal Disorder, Neurologic Disorder, Osteoarthritis (OA) Additional Family Medical History / Comment(s): Mother of motor neuron disease at the age of 78yrs. General Exam Limitations: no limitations General appearance: alert, in no apparent distress Head exam: Present: normocephalic Eye exam: Present: normal appearance, PERRL, EOMI, nystagmus ENT exam: Present: normal oropharynx Neck exam: Present: normal inspection Respiratory exam: Present: normal lung sounds bilaterally Cardiovascular Exam: Present: regular rate, normal rhythm GI/Abdominal exam: Present: soft. Absent: tenderness Back exam: Present: normal inspection Neurological exam: Present: alert, oriented X3. Absent: motor sensory deficit Psychiatric exam: Present: normal affect, normal mood Skin exam: Present: normal color Course Vital Signs 12/09/20 11:14 Temperature 98.8 F Pulse Rate 117 H Respiratory 22 Rate Blood Pressure 152/81 O2 Sat by Pulse 96 Oximetry Medical Decision Making - Medical Decision Making Patient reevaluated and updated. Case discussed with Dr. Arias, who will admit covering Dr. Mar. - Lab Data Result diagrams: 12/09/20 11:40 12/09/20 11:40 Lab Results 12/09/20 12/09/20 12/09/20 Range/Units 11:40 11:40 11:40 WBC 6.0 (3.8-10.6) k/uL RBC 4.45 (4.30-5.90) m/uL Hgb 13.8 (13.0-17.5) gm/dL Hct 41.2 (39.0-53.0) % MCV 92.4 (80.0-100.0) fL MCH 31.0 (25.0-35.0) pg MCHC 33.6 (31.0-37.0) g/dL RDW 14.1 (11.5-15.5) % Plt Count 198 (150-450) k/uL MPV 7.3 Neutrophils % 56 % Lymphocytes % 40 % Monocytes % 2 % Eosinophils % 1 % Basophils % 1 % Neutrophils # 3.3 (1.3-7.7) k/uL Lymphocytes # 2.4 (1.0-4.8) k/uL Monocytes # 0.1 (0-1.0) k/uL Eosinophils # 0.0 (0-0.7) k/uL Basophils # 0.0 (0-0.2) k/uL PT 9.7 (9.0-12.0) sec INR 0.9 (<1.2) Sodium 143 (137-145) mmol/L Potassium 4.6 (3.5-5.1) mmol/L Chloride 100 (98-107) mmol/L Carbon Dioxide 21 L (22-30) mmol/L Anion Gap 22 mmol/L BUN 14 (9-20) mg/dL Creatinine 0.72 (0.66-1.25) mg/dL Est GFR (CKD-EPI)AfAm >90 (>60 ml/min/1.73 sqM) Est GFR (CKD-EPI)NonAf >90 (>60 ml/min/1.73 sqM) Glucose 85 (74-99) mg/dL Calcium 8.9 (8.4-10.2) mg/dL Magnesium 1.5 L (1.6-2.3) mg/dL Total Bilirubin 0.9 (0.2-1.3) mg/dL AST 122 H (17-59) U/L ALT 70 H (4-49) U/L Alkaline Phosphatase 67 (38-126) U/L Total Protein 7.8 (6.3-8.2) g/dL Albumin 5.2 H (3.5-5.0) g/dL Amylase 67 (30-110) U/L Lipase 110 (23-300) U/L Serum Alcohol 348 H* mg/dL Coronavirus (PCR) (Not Detectd) 12/09/20 Range/Units 11:40 WBC (3.8-10.6) k/uL RBC (4.30-5.90) m/uL Hgb (13.0-17.5) gm/dL Hct (39.0-53.0) % MCV (80.0-100.0) fL MCH (25.0-35.0) pg MCHC (31.0-37.0) g/dL RDW (11.5-15.5) % Plt Count (150-450) k/uL MPV Neutrophils % % Lymphocytes % % Monocytes % % Eosinophils % % Basophils % % Neutrophils # (1.3-7.7) k/uL Lymphocytes # (1.0-4.8) k/uL Monocytes # (0-1.0) k/uL Eosinophils # (0-0.7) k/uL Basophils # (0-0.2) k/uL PT (9.0-12.0) sec INR (<1.2) Sodium (137-145) mmol/L Potassium (3.5-5.1) mmol/L Chloride (98-107) mmol/L Carbon Dioxide (22-30) mmol/L Anion Gap mmol/L BUN (9-20) mg/dL Creatinine (0.66-1.25) mg/dL Est GFR (CKD-EPI)AfAm (>60 ml/min/1.73 sqM) Est GFR (CKD-EPI)NonAf (>60 ml/min/1.73 sqM) Glucose (74-99) mg/dL Calcium (8.4-10.2) mg/dL Magnesium (1.6-2.3) mg/dL Total Bilirubin (0.2-1.3) mg/dL AST (17-59) U/L ALT (4-49) U/L Alkaline Phosphatase (38-126) U/L Total Protein (6.3-8.2) g/dL Albumin (3.5-5.0) g/dL Amylase (30-110) U/L Lipase (23-300) U/L Serum Alcohol mg/dL Coronavirus (PCR) Not Detected (Not Detectd) Disposition Clinical Impression: Alcohol intoxication Disposition: ADMITTED IP TO THIS HOSP Is patient prescribed a controlled substance at d/c from ED?: No Referrals: Veena Mar DO [Primary Care Provider] - 1-2 days Decision Time: 13:06
[2020-12-09 11:48] LABS: Basophils % (A) 1 %; Eosinophils % (A) 1 %; HCT 41.2 % (39.0-53.0); HGB 13.8 gm/dL (13.0-17.5); Lymphocytes # (A) 2.4 k/uL (1.0-4.8); Lymphocytes % (A) 40 %; MCHC 33.6 g/dL (31.0-37.0); MCV 92.4 fL (80.0-100.0); Mean Platelet Volume 7.3; Monocytes # (A) 0.1 k/uL (0-1.0); Monocytes % (A) 2 %; Neutrophils # (A) 3.3 k/uL (1.3-7.7); Neutrophils % (A) 56 %; Platelet Count 198 k/uL (150-450); RBC 4.45 m/uL (4.30-5.90); RDW 14.1 % (11.5-15.5)
[2020-12-09 11:57] LABS: ALT 70 U/L (4-49); AST 122 U/L (17-59); African American GFR (CKD) >90 (>60 ml/min/1.73 sqM); Albumin 5.2 g/dL (3.5-5.0); Alkaline Phosphatase 67 U/L (38-126); Amylase 67 U/L (30-110); Anion Gap 22 mmol/L; Blood Urea Nitrogen 14 mg/dL (9-20); Calcium 8.9 mg/dL (8.4-10.2); Carbon Dioxide 21 mmol/L (22-30); Chloride 100 mmol/L (98-107); Glucose 85 mg/dL (74-99); Lipase 110 U/L (23-300); Magnesium 1.5 mg/dL (1.6-2.3); Non-African American GFR(CKD) >90 (>60 ml/min/1.73 sqM); Potassium 4.6 mmol/L (3.5-5.1); Sodium 143 mmol/L (137-145); Total Bilirubin 0.9 mg/dL (0.2-1.3); Total Protein 7.8 g/dL (6.3-8.2)
[2020-12-09 12:01] LABS: INR 0.9 (<1.2); Prothrombin Time 9.7 sec (9.0-12.0)
[2020-12-09 12:09] LABS: Alcohol 348 mg/dL
[2020-12-09] MEDS ORDERED: NALOXONE 0.4 MG/ML 1 ML VIAL IV PRN (13:06)
[2020-12-09] MEDS ORDERED: LORazepam 2 MG/ML INJ IV PRN ×2 (13:07)
[2020-12-09] MEDS ORDERED: ALPRAZolam 1 MG TAB PO PRN (14:36)
[2020-12-09] MEDS ORDERED: FLUTICASONE 50MCG/SPRAY NASAL 16GM EA NOSTRIL PRN (14:36)
[2020-12-09] MEDS ORDERED: PANTOPRAZOLE 40 MG TABLET PO PRN (14:36)
[2020-12-09] MEDS ORDERED: IBUPROFEN 600 MG TAB PO PRN (14:36)
[2020-12-09] MEDS ORDERED: Potassium Replacement Protocol 1 EACH MISC MISCELLANE PRN (14:38)
[2020-12-09] MEDS ORDERED: Magnesium Replacement Protocol 1 EACH MISC MISCELLANE PRN (14:38)
[2020-12-09] MEDS: SODIUM CHLORIDE 0.9% 1,000 ML IV SCH (16:34)
[2020-12-09] MEDS: THIAMINE 100 MG TAB PO SCH (16:34)
[2020-12-09] MEDS: GABAPENTIN 300 MG CAP PO SCH ×2 (16:35→20:32)
[2020-12-09] MEDS: LOSARTAN 50 MG TAB PO SCH (16:35)
[2020-12-09 16:41] LABS: Appearance,Urine Clear (Clear); Bilirubin,Urine Negative (Negative); Blood,Urine Negative (Negative); Color,Urine Yellow; Glucose,Urine (UA) Negative (Negative); Ketones,Urine Trace (Negative); Leukocyte Esterase,Urine Negative (Negative); Nitrite,Urine Negative (Negative); PH, Urine 5.5 (5.0-8.0); Protein,Urine Trace (Negative); Specific Gravity,Urine 1.016 (1.001-1.035); Urobilinogen,Urine <2.0 mg/dL (<2.0)
--- NOTE | 2020-12-09 16:52 | HP ---
HISTORY AND PHYSICAL DATE OF SERVICE: 12/09/2020 CHIEF COMPLAINT: Alcohol intoxication. HISTORY OF PRESENT ILLNESS: This 45-year-old gentleman with a past medical history of multiple medical problems, history of alcoholism, history of repeated hospital admission, history of DJD, history of GERD, history of seizure disorder, pneumonia, being followed by Dr. Bynum in the outpatient setting was admitted to inpatient drug rehab a couple weeks ago. He had10 days into the treatment and apparently patient was found to have COVID-10. Patient was discharged. The patient went home, had a bout of alcoholism and admitted recently to [facility]. The patient was monitored closely and discharged home and then at this time the patient has taken alcohol significantly and apparently two fifths of alcohol daily and the last drink was late night. The patient came with alcohol intoxication and delirium tremens. Admitted for further evaluation and treatment. Alcohol level was 248. The current COVID-19 is negative. There is no history of fever, rigors. No headache, loss of consciousness, seizures at this time. PAST MEDICAL HISTORY: History of GERD, GI bleed, hypertension, DJD, seizures, sleep apnea. MEDICATIONS: Home medications are trazodone, vitamin B1, Protonix, multivitamins, magnesium oxide, losartan, Motrin. Neurontin, Flonase, Celebrex, Xanax. ALLERGIES: Cephalosporins, Benadryl, Rocephin, Keflex, lisinopril. FAMILY HISTORY: History of cancer, dementia, history of melanoma, history of Parkinson's. SOCIAL HISTORY: History of alcohol. Previous history of smoking. REVIEW OF SYSTEMS: ENT No history of diminished hearing or vision. CARDIOVASCULAR No angina or palpitations. RESPIRATORY No cough, no hemoptysis. GI No nausea, vomiting, or diarrhea. No dysuria or hematuria. NERVOUS As mentioned earlier. ALLERGY/IMMUNOLOGY No asthma or hayfever. MUSCULOSKELETAL As mentioned earlier. HEMATOLOGY/ONCOLOGY Negative. ENDOCRINE No history of diabetes or hypothyroidism. CONSTITUTIONAL As mentioned earlier. DERMATOLOGY Negative. RHEUMATOLOGY Negative, PSYCHIATRY As mentioned earlier. PHYSICAL EXAMINATION: Alert and oriented x3. Pulse 117, blood pressure 120/81, respiration 22, temperature 98.8, pulse ox 98% on room air. HEENT: Conjunctivae normal. Oral mucosa moist. NECK: No jugular venous distention. No lymph node enlargement. CARDIOVASCULAR: S1, S2, muffled. No S3, no S4, RESPIRATORY: Diminished breath sounds at the bases. A few scattered rhonchi, no crackles. ABDOMEN: Soft, obese, nontender. LEGS: No edema, no swelling. NERVOUS SYSTEM: Higher functions mentioned earlier. Moves all four limbs. No focal motor or sensory deficits. LYMPHATICS: No lymph node in neck or axilla. SKIN: No rash. JOINTS: No active deforming arthropathy. LABS: CBC within normal. CO2 is 21, magnesium 1.4. AST is 123, ALT 70, alcohol noted. ASSESSMENT: 1. Acute alcohol intoxication. 2. Change in mental status, acute metabolic encephalopathy secondary to alcohol intoxication. 3. Acute delirium tremens. 4. Acute alcoholic hepatitis. 5. Hypomagnesemia. 6. History of gastroesophageal reflux disease. 7. History of gastrointestinal bleed. 8. Hypertension. 9. History of DJD. 10.History of pneumonia. 11.History of seizure disorder. 12.History of sleep apnea. 13.History of bilateral pedal edema next history of degenerative joint disease. 14.History of alcoholic seizures. 15.History of spinal stenosis, herniated disk. 16.History of appendectomy. 17.History of anxiety, depression. 18.History of nicotine dependence. 19.Obesity with body mass of 36.8. 20.FULL CODE. RECOMMENDATIONS: In this 45-year-old gentleman who presented with multiple complex medical issues, we will monitor the patient closely. Resume the home medications. CIWA protocol. Otherwise, supplement vitamins. Provide symptomatic treatment. Continue the rest of the medications. I would also recommend Social Work and Case Management for evaluation and possible admission to inpatient substance abuse counseling and rehab which might be the only intervention which might work for him. Otherwise, recommend full admission this more than 2 nights. Prognosis guarded. Further recommendations to follow. MMODL / IJN: [id number] /
[2020-12-09] MEDS: LORazepam 2 MG/ML INJ IV PRN ×3 (18:09→23:00)
[2020-12-09] MEDS: traZODone HCL 100 MG TAB PO SCH (20:32)
[2020-12-09] MEDS: FAMOTIDINE 20 MG TAB PO SCH (20:32)
[2020-12-09] MEDS: MAGNESIUM OXIDE 400 MG TAB PO SCH (20:32)
[2020-12-09] MEDS: HEPARIN SODIUM,PORCINE/PF 5,000 UNIT/0.5 ML SYRINGE SQ SCH (20:32)
[2020-12-10] MEDS: LORazepam 2 MG/ML INJ IV PRN ×7 (04:26→23:06)
[2020-12-10 05:43] LABS: Basophils % (A) 1 %; Eosinophils # (A) 0.1 k/uL (0-0.7); Eosinophils % (A) 1 %; HGB 12.1 gm/dL (13.0-17.5); Lymphocytes # (A) 2.3 k/uL (1.0-4.8); Lymphocytes % (A) 55 %; MCH 30.4 pg (25.0-35.0); MCHC 32.7 g/dL (31.0-37.0); MCV 92.9 fL (80.0-100.0); Mean Platelet Volume 7.3; Monocytes # (A) 0.2 k/uL (0-1.0); Monocytes % (A) 5 %; Neutrophils # (A) 1.6 k/uL (1.3-7.7); Neutrophils % (A) 37 %; Platelet Count 140 k/uL (150-450); RBC 3.98 m/uL (4.30-5.90); RDW 13.9 % (11.5-15.5); WBC 4.2 k/uL (3.8-10.6)
[2020-12-10] MEDS: LOSARTAN 50 MG TAB PO SCH (08:35)
[2020-12-10] MEDS: GABAPENTIN 300 MG CAP PO SCH ×3 (08:35→20:26)
[2020-12-10] MEDS: FAMOTIDINE 20 MG TAB PO SCH (08:35)
[2020-12-10] MEDS: MELOXICAM 7.5 MG TAB PO SCH (08:35)
[2020-12-10] MEDS: THIAMINE 100 MG TAB PO SCH ×2 (08:36→16:22)
[2020-12-10] MEDS: HEPARIN SODIUM,PORCINE/PF 5,000 UNIT/0.5 ML SYRINGE SQ SCH ×2 (08:36→20:27)
[2020-12-10] MEDS: MULTIVITAMINS, THERA 1 EACH TAB PO SCH (08:36)
[2020-12-10] MEDS: MAGNESIUM OXIDE 400 MG TAB PO SCH ×3 (08:36→20:27)
[2020-12-10 11:22] LABS: African American GFR (CKD) 123.3 (60.0-200.0); Anion Gap 10.8 mmol/L (4.00-12.00); BUN/Creat Ratio 18.75 Ratio (12.00-20.00); Calcium 8.2 mg/dL (8.7-10.3); Carbon Dioxide 30.2 mmol/L (21.6-31.8); Magnesium 1.3 mg/dL (1.5-2.4); Non-African American GFR(CKD) 106.4 (60.0-200.0); Potassium 3.9 mmol/L (3.5-5.5)
[2020-12-10] MEDS: FOLIC ACID 1 MG TAB PO SCH (11:59)
[2020-12-10] MEDS: ONDANSETRON 4 MG/2 ML VIAL IVP PRN (12:00)
[2020-12-10] MEDS ORDERED: Magnesium Replacement Protocol 1 EACH MISC MISCELLANE PRN (13:03)
[2020-12-10] MEDS: MAGNESIUM SULFATE-D5W PMX 1 GM in DEXTROSE/WATER 1 100ML.BAG IVPB SCH ×3 (13:55→18:06)
[2020-12-10] MEDS: SODIUM CHLORIDE 0.9% 1,000 ML IV SCH (16:23)
--- NOTE | 2020-12-10 17:45 | PN ---
PROGRESS NOTE DATE OF SERVICE: 12/10/2020 This 45-year-old gentleman who was admitted with alcohol withdrawal, alcohol intoxication has history of multiple admissions from alcohol intoxication. The patient was most recent in alcohol rehab and after 10 days patient was discharged because of Covid positive. Currently patient is Covid negative. No chest pain. No palpitations. No fever. The patient has diffuse tremors. PHYSICAL EXAMINATION: Alert and oriented times three. Pulse 76. Blood pressure 130/80, respiration 17, temperature 98.8, pulse ox 98% on room air. HEENT: Conjunctivae normal. Neck: No JVD. Cardiovascular: S1, S2 muffled. Respiratory System: Breath sounds diminished at the bases. A few scattered rhonchi. Abdomen: Soft. Nervous system: Diffuse diffusely weak and tremors present. LABS: WBC 4.2, hemoglobin 12.1, and other labs are noted. Magnesium 1.3. ASSESSMENT: 1. Acute alcohol intoxication. 2. Change in mental status acute metabolic encephalopathy secondary to alcohol intoxication. 3. Acute delirium tremens. 4. Acute alcoholic hepatitis. 5. Hypomagnesemia. 6. History of gastroesophageal reflux disease. 7. History of gastrointestinal bleed. 8. Hypertension. 9. History of degenerative joint disease. 10.History of pneumonia. 11.History of seizure disorder. 12.History of sleep apnea. 13.History of bilateral pedal edema and history of degenerative joint disease. 14.History of alcoholic seizures. 15.History of spinal stenosis, herniated disc. 16.History of appendectomy. 17.History of anxiety, depression. 18.History of nicotine dependence. 19.Obesity with body mass index of 36.8. 20.FULL CODE. RECOMMENDATIONS AND DISCUSSION: I recommend to continue current medications, continue monitoring and symptomatic treatment. Otherwise, continue with DT precautions. Supplement magnesium. Otherwise, I would also recommend Social Work/Case Management to followup for possible inpatient alcohol rehab. Further recommendations to follow. MMODL / IJN: [id number] /
[2020-12-10] MEDS: traZODone HCL 100 MG TAB PO SCH (20:27)
[2020-12-10] MEDS: HYDROcodone/APAP 5-325MG 1 EACH TAB PO PRN (20:42)
[2020-12-11] MEDS: HYDROcodone/APAP 5-325MG 1 EACH TAB PO PRN (05:02)
[2020-12-11] MEDS: LORazepam 2 MG/ML INJ IV PRN ×2 (05:02→09:46)
[2020-12-11] MEDS: MELOXICAM 7.5 MG TAB PO SCH (09:44)
[2020-12-11] MEDS: MULTIVITAMINS, THERA 1 EACH TAB PO SCH (09:44)
[2020-12-11] MEDS: LOSARTAN 50 MG TAB PO SCH (09:44)
[2020-12-11] MEDS: MAGNESIUM OXIDE 400 MG TAB PO SCH (09:44)
[2020-12-11] MEDS: GABAPENTIN 300 MG CAP PO SCH (09:45)
[2020-12-11] MEDS: HEPARIN SODIUM,PORCINE/PF 5,000 UNIT/0.5 ML SYRINGE SQ SCH (09:45)
[2020-12-11] MEDS: THIAMINE 100 MG TAB PO SCH (09:45)
[2020-12-11] MEDS: FOLIC ACID 1 MG TAB PO SCH (11:43)
[2020-12-11] MEDS: ONDANSETRON 4 MG/2 ML VIAL IVP PRN (11:43)
[2020-12-11 11:55] VITALS: BP 133/82; PULSE 86; RESP 19; TEMP 98.9
[2020-12-11] MEDS ORDERED: LORazepam 1 MG TAB PO STA (13:42)
--- NOTE | 2020-12-12 14:06 | P.DS ---
Providers Date of admission: 12/09/20 13:09 Expected date of discharge: 12/11/20 Attending physician: Aida Arias Primary care physician: Veena Bynum Hospital Course: Final Diagnosis Acute alcohol intoxication Change in mental status acute embolic encephalopathy secondary to alcohol intoxication Acute delirium tremens Acute alcoholic hepatitis Hypomagnesemia GERD Hypertension History of DJD History of sleep apnea History of alcoholic seizures Obesity with a body mass index of 36.9 History of anxiety/depression Full code Discharge disposition Patient is being discharged in a stable condition with guarded prognosis to home. Patient will follow-up with Dr. Bynum in the outpatient setting upon discharge. Patient is to also follow-up with [place] [facility] as he states he has a scheduled intake appointment this Thursday. Librium taper was sent to pharmacy. Total time taken is greater than 35 minutes. Hospital course This is a 45-year-old male who was recently admitted with alcohol withdrawal, alcohol intoxication with an extensive history of multiple admissions for this and being closely monitored. Patient was started on CIWA protocol and appropriate home medications have been resumed. Patient continues to have some mild nausea and will give Zofran as needed along with a Librium taper on discharge. Patient instructed to follow[facility] for [facility] rehab for alcohol abuse. States he called them and has an intake appointment this Thursday. Patient's recent Covid this admission is negative. Continue to encourage refraining from alcohol and Librium taper was sent to the pharmacy. Currently no reports of chest pain, shortness of breath, or palpitations. Patient is afebrile. No reports of nausea or vomiting and patient is tolerating diet. Patient will be discharged home today. Continued high risk for multiple readmissions secondary to alcohol abuse and intoxication. On exam vital signs are stable. Cardio S1, S2 are muffled. Respiratory system shows diminished breath sounds at the bases with no wheezing or rhonchi noted. Abdomen is soft and obese, and nontender. Nervous system shows no focal deficits. Please refer to medication reconciliation sheet for a list of medications. Patient Condition at Discharge: Stable Plan - Discharge Summary Discharge Rx Participant: No New Discharge Prescriptions: New Ondansetron Odt [Zofran Odt] 4 mg PO Q8HR PRN #20 tab PRN Reason: Nausea chlordiazePOXIDE HCl [Librium] 25 mg PO QID 3 Days #12 capsule Continue Pantoprazole Sodium 40 mg PO DAILY PRN PRN Reason: GERD Losartan Potassium 50 mg PO DAILY Fluticasone Nasal [place] [Flonase Nasal [place]] 2 spray EA NOSTRIL BID PRN PRN Reason: Allergy Symptoms traZODone HCL [Desyrel] 100 mg PO HS ALPRAZolam [Xanax] 1 mg PO BID PRN #10 tab PRN Reason: Anxiety Ibuprofen [Motrin] 600 mg PO Q8HR PRN PRN Reason: Pain Gabapentin [Neurontin] 300 mg PO TID cap Thiamine [Vitamin B-1] 100 mg PO BID-W/MEALS 30 Days #60 tab Multivitamins, Thera [Multivitamin (formulary)] 1 each PO DAILY #30 tab Celecoxib [CeleBREX] 200 mg PO DAILY Magnesium Oxide [Mag-Ox] 400 mg PO BID 30 Days #60 tablet Discharge Medication List Losartan Potassium 50 mg PO DAILY 01/03/19 [History] Pantoprazole Sodium 40 mg PO DAILY PRN 01/03/19 [History] Fluticasone Nasal [place] [Flonase Nasal [place]] 2 spray EA NOSTRIL BID PRN 10/11/19 [History] traZODone HCL [Desyrel] 100 mg PO HS 05/14/20 [History] ALPRAZolam [Xanax] 1 mg PO BID PRN #10 tab 06/15/20 [Rx] Celecoxib [CeleBREX] 200 mg PO DAILY 11/17/20 [History] Ibuprofen [Motrin] 600 mg PO Q8HR PRN 11/17/20 [History] Gabapentin [Neurontin] 300 mg PO TID cap 11/21/20 [Rx] Magnesium Oxide [Mag-Ox] 400 mg PO BID 30 Days #60 tablet 11/21/20 [Rx] Thiamine [Vitamin B-1] 100 mg PO BID-W/MEALS 30 Days #60 tab 11/21/20 [Rx] Multivitamins, Thera [Multivitamin (formulary)] 1 each PO DAILY #30 tab 12/05/20 [Rx] Ondansetron Odt [Zofran Odt] 4 mg PO Q8HR PRN #20 tab 12/11/20 [Rx] chlordiazePOXIDE HCl [Librium] 25 mg PO QID 3 Days #12 capsule 12/11/20 [Rx] Follow up Appointment(s)/Referral(s): Veena Bynum DO [Primary Care Provider] - 1-2 days (The office is closed please call to make follow up appointment.) Patient Instructions/Handouts: Chlordiazepoxide (By mouth), Ondansetron (By mouth), Alcohol Withdrawal (DC) Activity/Diet/Wound Care/Special Instructions: Activity Limited until follow-up Follow[facility] Follow up with community mental health outpatient Avoid alcohol intake Use Zofran as needed for nausea and vomiting Continue with Librium taper that was sent to the pharmacy Follow-up with primary care provider upon discharge Discharge Disposition: HOME SELF-CARE
== END 2020-12-11 16:44 | disposition home or self-care (01) ==
LOC: EC 11:12 → 5NMEDONC 13:09
PROVIDERS: ADMIT Hospitalist; ATTEND Hospitalist
DX: F10.221 Alcohol dependence with intoxication delirium (principal); F10.231 Alcohol dependence with withdrawal delirium; Y90.8 Blood alcohol level of 240 mg/100 ml or more; G93.41 Metabolic encephalopathy; K70.10 Alcoholic hepatitis without ascites; E83.42 Hypomagnesemia; K21.9 Gastro-esophageal reflux disease without esophagitis; I10 Essential (primary) hypertension; Z20.822 Contact with and (suspected) exposure to COVID-19; M19.90 Unspecified osteoarthritis, unspecified site; Z87.01 Personal history of pneumonia (recurrent); G40.909 Epilepsy, unspecified, not intractable, without status epilepticus; G47.30 Sleep apnea, unspecified; M48.00 Spinal stenosis, site unspecified; F41.9 Anxiety disorder, unspecified; F32.9 Major depressive disorder, single episode, unspecified; E66.9 Obesity, unspecified; Z68.36 Body mass index [BMI] 36.0-36.9, adult; F17.210 Nicotine dependence, cigarettes, uncomplicated; Z79.1 Long term (current) use of non-steroidal anti-inflammatories (NSAID); Z79.899 Other long term (current) drug therapy; Z88.1 Allergy status to other antibiotic agents; Z88.8 Allergy status to other drugs, medicaments and biological substances; Z90.49 Acquired absence of other specified parts of digestive tract; Z86.16 Personal history of COVID-19; Z86.59 Personal history of other mental and behavioral disorders; Z87.19 Personal history of other diseases of the digestive system; Z86.79 Personal history of other diseases of the circulatory system; Z80.8 Family history of malignant neoplasm of other organs or systems; Z82.0 Family history of epilepsy and other diseases of the nervous system; Z82.49 Family history of ischemic heart disease and other diseases of the circulatory system
CPT/HCPCS: 96376 ×3; 96365; 96366 ×2; 96372 ×3; 96375 ×2; 96361; 99285; 36415; 97162; 97165; 80053; 80048; 82150; 83690; 83735 ×3; 85025 ×2; 85610; 81003; 87635; G0378 ×3; G0480; J2060 ×3; J3411; J2405 ×3; J3475; J1644 ×3; 80320

== ENCOUNTER 2020-12-12 19:55 | Observation (INO) | payer OTHER ==
[2020-12-12] MEDS ORDERED: SODIUM CHLORIDE 0.9% 1,000 ML IV STA (21:41)
[2020-12-12] MEDS ORDERED: chlordiazePOXIDE 25 MG CAP PO STA (21:42)
[2020-12-12 22:34] LABS: Basophils % (A) 1 %; Eosinophils % (A) 1 %; HCT 37.6 % (39.0-53.0); HGB 12.7 gm/dL (13.0-17.5); Lymphocytes # (A) 2.3 k/uL (1.0-4.8); Lymphocytes % (A) 51 %; MCH 31.4 pg (25.0-35.0); MCHC 33.9 g/dL (31.0-37.0); MCV 92.7 fL (80.0-100.0); Mean Platelet Volume 7.9; Monocytes # (A) 0.3 k/uL (0-1.0); Monocytes % (A) 7 %; Neutrophils # (A) 1.8 k/uL (1.3-7.7); Neutrophils % (A) 39 %; Platelet Count 146 k/uL (150-450); RBC 4.05 m/uL (4.30-5.90); RDW 13.9 % (11.5-15.5); WBC 4.6 k/uL (3.8-10.6)
[2020-12-12 22:36] LABS: Appearance,Urine Clear (Clear); Bilirubin,Urine Negative (Negative); Blood,Urine Negative (Negative); Color,Urine Colorless; Glucose,Urine (UA) Negative (Negative); Ketones,Urine Negative (Negative); Leukocyte Esterase,Urine Negative (Negative); Nitrite,Urine Negative (Negative); PH, Urine 5.5 (5.0-8.0); Protein,Urine Negative (Negative); Specific Gravity,Urine 1.003 (1.001-1.035); Urobilinogen,Urine <2.0 mg/dL (<2.0)
[2020-12-12 22:50] LABS: ALT 101 U/L (4-49); AST 158 U/L (17-59); African American GFR (CKD) >90 (>60 ml/min/1.73 sqM); Albumin 4.6 g/dL (3.5-5.0); Alkaline Phosphatase 50 U/L (38-126); Anion Gap 13 mmol/L; Blood Urea Nitrogen 10 mg/dL (9-20); Carbon Dioxide 25 mmol/L (22-30); Chloride 106 mmol/L (98-107); Glucose 89 mg/dL (74-99); Non-African American GFR(CKD) >90 (>60 ml/min/1.73 sqM); Potassium 4.3 mmol/L (3.5-5.1); Sodium 144 mmol/L (137-145); Total Bilirubin 0.8 mg/dL (0.2-1.3)
[2020-12-12] MEDS ORDERED: NALOXONE 0.4 MG/ML 1 ML VIAL IV PRN (23:08)
[2020-12-12] MEDS ORDERED: THIAMINE 100 MG/ML 2 ML VIAL IM STA (23:08)
[2020-12-12] MEDS ORDERED: LORazepam 2 MG/ML INJ IV PRN ×3 (23:08)
--- NOTE | 2020-12-12 23:09 | ED ---
General Adult HPI - General Chief complaint: Fall Stated complaint: Fall, ETOH Time Seen by Provider: 12/12/20 20:49 Source: patient, EMS Mode of arrival: EMS - History of Present Illness Initial comments: Nick is a 45-year-old alcoholic male who is brought to the ER today by everette braxton. Patient reports that he was on the ground didn't have the strength or willpower to get up. Patient reports that he's been drinking he wants to he plans to shoot himself. He also has been [facility] for alcohol rehab tomorrow. Patient also has concern that he is in alcohol withdrawal C is currently feeling very shaky and weak. - Related Data Home Medications Medication Instructions Recorded Confirmed Losartan Potassium 50 mg PO DAILY 01/03/19 12/12/20 Pantoprazole Sodium 40 mg PO DAILY PRN 01/03/19 12/12/20 Fluticasone Nasal [place] [Flonase 2 spray EA NOSTRIL BID PRN 10/11/19 12/12/20 Nasal [place]] traZODone HCL [Desyrel] 100 mg PO HS 05/14/20 12/12/20 Celecoxib [CeleBREX] 200 mg PO DAILY 11/17/20 12/12/20 Ibuprofen [Motrin] 600 mg PO Q8HR PRN 11/17/20 12/12/20 Multivitamins, Thera [Multivitamin 1 tab PO DAILY 12/12/20 12/12/20 (formulary)] Previous Rx's Medication Instructions Recorded ALPRAZolam [Xanax] 1 mg PO BID PRN #10 tab 06/15/20 Gabapentin [Neurontin] 300 mg PO TID cap 11/21/20 Magnesium Oxide [Mag-Ox] 400 mg PO BID 30 Days #60 tablet 11/21/20 Thiamine [Vitamin B-1] 100 mg PO BID-W/MEALS 30 Days #60 11/21/20 tab Ondansetron Odt [Zofran Odt] 4 mg PO Q8HR PRN #20 tab 12/11/20 chlordiazePOXIDE HCl [Librium] 25 mg PO QID 3 Days #12 capsule 12/11/20 Allergies Allergy/AdvReac Type Severity Reaction Status Date / Time Cephalosporins Allergy Severe Anaphylaxis Verified 12/12/20 21:45 diphenhydramine HCl Allergy Severe Anaphylaxis Verified 12/12/20 21:45 [From Benadryl] divalproex sodium Allergy Severe Anaphylaxis Verified 12/12/20 21:45 [From Depakote] ceftriaxone [From Rocephin] Allergy Anaphylaxis Verified 12/12/20 21:45 cephalexin [From Keflex] Allergy Anaphylaxis Verified 12/12/20 21:45 lisinopril Allergy Anaphylaxis Verified 12/12/20 21:45 Review of Systems ROS Statement: Those systems with pertinent positive or pertinent negative responses have been documented in the HPI. ROS Other: All systems not noted in ROS Statement are negative. Past Medical History Past Medical History: GERD/Reflux, GI Bleed, Hypertension, Osteoarthritis (OA), Pneumonia, Seizure Disorder, Sleep Apnea/CPAP/BIPAP Additional Past Medical History / Comment(s): Occasional bilateral pedal edema if stands long, arthritis possibly in back/ribs, MILIND without device, ETOH abuse, alcoholic seizures/blackouts/fainting 2016, alcoholic hepatitis, alcoholic gastritis, upper GI bleed, hypomagnesemia, spinal stenosis/herniated disc with surgery, bilateral varicose veins, hemorrhoids History of Any Multi-Drug Resistant Organisms: None Reported Past Surgical History: Appendectomy, Back Surgery, Tonsillectomy Additional Past Surgical History / Comment(s): bilateral discectomy, discectomy L5-S1, EGD Past Anesthesia/Blood Transfusion Reactions: Motion Sickness Past Psychological History: Anxiety, Depression Smoking Status: Current every day smoker Past Alcohol Use History: Abuse Past Drug Use History: None Reported - Past Family History Father Family Medical History: Cancer, Dementia, Neurologic Disorder Additional Family Medical History / Comment(s): melanoma, parkinsons Mother Family Medical History: Hypertension, Musculoskeletal Disorder, Neurologic Disorder, Osteoarthritis (OA) Additional Family Medical History / Comment(s): Mother of motor neuron disease at the age of 78yrs. General Exam - General Exam Comments Initial Comments: Physical Exam GENERAL: Patient is well-developed and well-nourished. Patient is nontoxic and well-hydrated and is in no distress. HENT: Normocephalic, Atraumatic. EYES: PERRL, EOMI PULMONARY: Unlabored respirations. CARDIOVASCULAR: RRR Warm and well perfused extremities ABDOMEN: Non-distended SKIN: No rashes or bruising : Deferred NEUROLOGIC: Alert and oriented Normal speech Normal gait MUSCULOSKELETAL: Moving all extremities with no apparent injury PSYCHIATRIC: Suicidal ideation with plan to shoot himself denies owning a gun Course Vital Signs 12/12/20 19:59 Temperature 98.7 F Pulse Rate 94 Respiratory 20 Rate Blood Pressure 122/79 O2 Sat by Pulse 95 Oximetry Medical Decision Making - Medical Decision Making Patient was seen and evaluated, history is obtained from patient History and physical exam are unremarkable aside from intoxicationno signs of trauma Patient with alcohol of nearly 300, we placed in observation and sobriety Alcohol withdrawal protocol was ordered - Lab Data Result diagrams: 12/12/20 22:22 12/12/20 22:22 Lab Results 12/12/20 12/12/20 12/12/20 Range/Units 22:22 22:22 22:22 WBC 4.6 (3.8-10.6) k/uL RBC 4.05 L (4.30-5.90) m/uL Hgb 12.7 L (13.0-17.5) gm/dL Hct 37.6 L (39.0-53.0) % MCV 92.7 (80.0-100.0) fL MCH 31.4 (25.0-35.0) pg MCHC 33.9 (31.0-37.0) g/dL RDW 13.9 (11.5-15.5) % Plt Count 146 L (150-450) k/uL MPV 7.9 Neutrophils % 39 % Lymphocytes % 51 % Monocytes % 7 % Eosinophils % 1 % Basophils % 1 % Neutrophils # 1.8 (1.3-7.7) k/uL Lymphocytes # 2.3 (1.0-4.8) k/uL Monocytes # 0.3 (0-1.0) k/uL Eosinophils # 0.0 (0-0.7) k/uL Basophils # 0.0 (0-0.2) k/uL Sodium 144 (137-145) mmol/L Potassium 4.3 (3.5-5.1) mmol/L Chloride 106 (98-107) mmol/L Carbon Dioxide 25 (22-30) mmol/L Anion Gap 13 mmol/L BUN 10 (9-20) mg/dL Creatinine 0.72 (0.66-1.25) mg/dL Est GFR (CKD-EPI)AfAm >90 (>60 ml/min/1.73 sqM) Est GFR (CKD-EPI)NonAf >90 (>60 ml/min/1.73 sqM) Glucose 89 (74-99) mg/dL Calcium 9.0 (8.4-10.2) mg/dL Total Bilirubin 0.8 (0.2-1.3) mg/dL AST 158 H (17-59) U/L ALT 101 H (4-49) U/L Alkaline Phosphatase 50 (38-126) U/L Total Protein 7.0 (6.3-8.2) g/dL Albumin 4.6 (3.5-5.0) g/dL Urine Color Colorless Urine Appearance Clear (Clear) Urine pH 5.5 (5.0-8.0) Ur Specific [place] 1.003 (1.001-1.035) Urine Protein Negative (Negative) Urine Glucose (UA) Negative (Negative) Urine Ketones Negative (Negative) Urine Blood Negative (Negative) Urine Nitrite Negative (Negative) Urine Bilirubin Negative (Negative) Urine Urobilinogen <2.0 (<2.0) mg/dL Ur Leukocyte Esterase Negative (Negative) Disposition Clinical Impression: Alcohol abuse with withdrawal Disposition: ADMITTED IP TO THIS HOSP Condition: Stable Is patient prescribed a controlled substance at d/c from ED?: No Referrals: Veena Bynum DO [Primary Care Provider] - 1-2 days
[2020-12-13] MEDS: THIAMINE 100 MG TAB PO SCH ×2 (00:43→07:46)
[2020-12-13] MEDS: LORazepam 2 MG/ML INJ IV PRN ×4 (01:55→10:37)
[2020-12-13 07:39] VITALS: BP 130/81; PULSE 71; RESP 17; TEMP 98
[2020-12-13] MEDS ORDERED: ONDANSETRON 4 MG/2 ML VIAL IVP PRN (12:02)
[2020-12-13] MEDS ORDERED: PANTOPRAZOLE 40 MG/10 ML VIAL IVP SCH (12:15)
--- NOTE | 2020-12-13 13:55 | P.CN ---
Psychiatric Consult - . Consult date: 12/13/20 Consult:: IDENTIFYING DATA: This patient is a single, unemployed, 45-year-old male who was admitted for alcohol intoxication. HISTORY OF PRESENT ILLNESS: The patient presented to the hospital on 12/12/20, brought in by ambulance after the patient called 911 as he felt at the ground and does not have the strength or willpower to get up when he was intoxicated. Patient reportedly also stated that he would shoot himself. Initially, the patient was scheduled to go to [facility] tomorrow, but patient called [facility] and rescheduled his intake for alcohol rehabilitation to be on Thursday. Currently, the patient is not reporting any suicidal or homicidal ideation, intention, and/or plan. He is not reporting any auditory or visual hallucinations. He is denying any paranoia or other delusions. The patient does express that he continues to use alcohol heavily. He states that he is using this as a form of grieving. He does acknowledge that alcohol causes his depression and grief to worsen in the long run. He denies any access to firearms or other weapons. He continues to endorse difficulty with sleep, low appetite, but is denying any suicidal ideation. He is future oriented and expresses a desire to quit alcohol. PAST PSYCHIATRIC HISTORY: Patient has a a history of depression and a long history of alcohol use disorder. He has had previous trials of medications including gabapentin, Vistaril, and xanax. He is currently on gabapentin, Xanax, and trazodone. He has had 1 previous psychiatric hospitalization on [facility] [place] [facility] in 2017 for worsening depression and suicidal ideation. He currently denies any outpatient psychiatric follow-up. He denies any prior attempts at suicide. PAST MEDICAL HISTORY: Past Medical History: GERD/Reflux, GI Bleed, Hypertension, Osteoarthritis (OA), Pneumonia, Seizure Disorder, Sleep Apnea/CPAP/BIPAP Additional Past Medical History / Comment(s): Occasional bilateral pedal edema if stands long, arthritis possibly in back/ribs, MILIND without device, ETOH abuse, alcoholic seizures/blackouts/fainting 2016, alcoholic hepatitis, alcoholic gastritis, upper GI bleed, hypomagnesemia, spinal stenosis/herniated disc with surgery, bilateral varicose veins, hemorrhoids History of Any Multi-Drug Resistant Organisms: None Reported Past Surgical History: Appendectomy, Back Surgery, Tonsillectomy Additional Past Surgical History / Comment(s): bilateral discectomy, discectomy L5-S1, EGD Past Anesthesia/Blood Transfusion Reactions: Motion Sickness Past Psychological History: Anxiety, Depression Smoking Status: Current every day smoker Past Alcohol Use History: Abuse Past Drug Use History: None Reported ALLERGIES: Cephalosporins, diphenhydramine, Depakote, Rocephin, Keflex, lisinopril CHEMICAL DEPENDENCY HISTORY: Patient reports that he smokes tobacco intermittently. The patient does admit to drinking half gallon of vodka per day. He reports his last drink was yesterday. Reports history of marijuana use. He denies any illicit drug use. FAMILY PSYCHIATRIC/SUBSTANCE USE HISTORY: The patient presses father was diagnosed with schizophrenia. SOCIAL HISTORY: Patient was born and raised in [place], [place]. He currently lives alone with his pet fish. He is 1 of 4 children. His eldest brother at the age of 11 after being hit by a bus. His father recently on 06/15/20. He attributes the loss of his father as the primary reason he drinks heavily at this time. He is unemployed. MENTAL STATUS EXAM: General Appearance: Patient appears to be stated age is alert, pleasant, and cooperative. Patient appears to have fair hygiene and grooming wearing hospital gown with fair eye contact. Dressed in his home clothes. Behavior: Patient is calmly lying in bed without any agitated behavior. Elevated psychomotor activity. Bilateral upper extremity tremors present. Speech: Patient's speech is fluent and nonpressured. Mood/Affect: Patient reports their mood is "not so good", affect is congruent and malaised. Suicidality/Homicidality: Patient denies having any suicidal or homicidal ideation intent or plan. Perceptions: Patient denies any visual hallucinations and denies any auditory hallucinations Though content/process: There is no evidence of any delusional thought content and thought process is linear and goal-directed. Memory and concentration: AOX3, grossly intact for the purposes of this session. Can spell "WORLD" backwards Judgment and insight: poor Vital Signs Temp 98 F 12/13/20 07:38 Pulse 71 12/13/20 07:38 Resp 17 12/13/20 07:38 BP 130/81 12/13/20 07:38 Pulse Ox 96 12/13/20 07:38 Intake & Output 12/12/20 12/13/20 12/13/20 18:59 06:59 18:59 Weight 90.718 kg Other: # Voids 1 Laboratory Results - Last 24 Hours 12/12/20 12/12/20 12/12/20 22:22 22:22 22:22 WBC 4.6 RBC 4.05 L Hgb 12.7 L Hct 37.6 L MCV 92.7 MCH 31.4 MCHC 33.9 RDW 13.9 Plt Count 146 L MPV 7.9 Neutrophils % 39 Lymphocytes % 51 Monocytes % 7 Eosinophils % 1 Basophils % 1 Neutrophils # 1.8 Lymphocytes # 2.3 Monocytes # 0.3 Eosinophils # 0.0 Basophils # 0.0 Sodium 144 Potassium 4.3 Chloride 106 Carbon Dioxide 25 Anion Gap 13 BUN 10 Creatinine 0.72 Est GFR (CKD-EPI)AfAm >90 Est GFR (CKD-EPI)NonAf >90 Glucose 89 Calcium 9.0 Total Bilirubin 0.8 AST 158 H ALT 101 H Alkaline Phosphatase 50 Total Protein 7.0 Albumin 4.6 Urine Color Colorless Urine Appearance Clear Urine pH 5.5 Ur Specific [place] 1.003 Urine Protein Negative Urine Glucose (UA) Negative Urine Ketones Negative Urine Blood Negative Urine Nitrite Negative Urine Bilirubin Negative Urine Urobilinogen <2.0 Ur Leukocyte Esterase Negative Coronavirus (PCR) 12/13/20 00:42 WBC RBC Hgb Hct MCV MCH MCHC RDW Plt Count MPV Neutrophils % Lymphocytes % Monocytes % Eosinophils % Basophils % Neutrophils # Lymphocytes # Monocytes # Eosinophils # Basophils # Sodium Potassium Chloride Carbon Dioxide Anion Gap BUN Creatinine Est GFR (CKD-EPI)AfAm Est GFR (CKD-EPI)NonAf Glucose Calcium Total Bilirubin AST ALT Alkaline Phosphatase Total Protein Albumin Urine Color Urine Appearance Urine pH Ur Specific [place] Urine Protein Urine Glucose (UA) Urine Ketones Urine Blood Urine Nitrite Urine Bilirubin Urine Urobilinogen Ur Leukocyte Esterase Coronavirus (PCR) Not Detected IMPRESSIONS: 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 Primary pathology is alcohol use disorder. He is not presenting with any imminent risk of harm to self or others as a result of a psychiatric illness. Protective factors include future-orientation and no prior attempts at suicide. Risk factors include heavy alcohol abuse and the patient's age, race and gender demographic. -Would recommend the following medication changes/additions: Continue Librium for ETOH withdrawal. Can restart neurontin and trazodone once discharged. -Recommend inpatient substance abuse rehabilitation. -Psychiatry will sign off at this point, please contact with any questions. 12/13/20 13:55
--- NOTE | 2020-12-13 14:43 | P.DS ---
Providers Date of admission: 12/12/20 23:08 Attending physician: Aida Arias Consults: 12/13/20 08:56 Consult Physician Routine Consulting Provider: Maldonado Craig Consult Reason/Comments: suicidal Do you want consulting provider notified?: Yes Primary care physician: Veena Bynum Hospital Course: Please refer to my HPI for further details Patient Condition at Discharge: Stable Plan - Discharge Summary Discharge Rx Participant: No New Discharge Prescriptions: New Pantoprazole Sodium [Protonix] 40 mg PO AC-BRKFST #14 tablet. Losartan [Cozaar] 25 mg PO DAILY #30 tab Continue Multivitamins, Thera [Multivitamin (formulary)] 1 tab PO DAILY Ondansetron Odt [Zofran ODT] 4 mg PO Q8HR PRN #20 tab PRN Reason: Nausea Discontinued Pantoprazole Sodium 40 mg PO DAILY PRN PRN Reason: GERD Losartan Potassium 50 mg PO DAILY Ibuprofen [Motrin] 600 mg PO Q8HR PRN PRN Reason: Pain No Action Fluticasone Nasal [place] [Flonase Nasal [place]] 2 spray EA NOSTRIL BID PRN PRN Reason: Allergy Symptoms traZODone HCL [Desyrel] 100 mg PO HS ALPRAZolam [Xanax] 1 mg PO BID PRN #10 tab PRN Reason: Anxiety Gabapentin [Neurontin] 300 mg PO TID cap Thiamine [Vitamin B-1] 100 mg PO BID-W/MEALS 30 Days #60 tab Celecoxib [CeleBREX] 200 mg PO DAILY Magnesium Oxide [Mag-Ox] 400 mg PO BID 30 Days #60 tablet chlordiazePOXIDE HCl [Librium] 25 mg PO QID 3 Days #12 capsule Discharge Medication List Fluticasone Nasal [place] [Flonase Nasal [place]] 2 spray EA NOSTRIL BID PRN 10/11/19 [History] traZODone HCL [Desyrel] 100 mg PO HS 05/14/20 [History] ALPRAZolam [Xanax] 1 mg PO BID PRN #10 tab 06/15/20 [Rx] Celecoxib [CeleBREX] 200 mg PO DAILY 11/17/20 [History] Gabapentin [Neurontin] 300 mg PO TID cap 11/21/20 [Rx] Magnesium Oxide [Mag-Ox] 400 mg PO BID 30 Days #60 tablet 11/21/20 [Rx] Thiamine [Vitamin B-1] 100 mg PO BID-W/MEALS 30 Days #60 tab 11/21/20 [Rx] chlordiazePOXIDE HCl [Librium] 25 mg PO QID 3 Days #12 capsule 12/11/20 [Rx] Multivitamins, Thera [Multivitamin (formulary)] 1 tab PO DAILY 12/12/20 [History] Losartan [Cozaar] 25 mg PO DAILY #30 tab 12/13/20 [Rx] Ondansetron Odt [Zofran ODT] 4 mg PO Q8HR PRN #20 tab 12/13/20 [Rx] Pantoprazole Sodium [Protonix] 40 mg PO AC-BRKFST #14 tablet. 12/13/20 [Rx] Follow up Appointment(s)/Referral(s): Veena Bynum DO [Primary Care Provider] - 3 Days
--- NOTE | 2020-12-13 14:43 | P.HPIM ---
History of Present Illness Well-known to my service with multiple hospital physician for alcohol with alcohol and alcohol abuse. Patient was couple days ago after he was treated for alcohol withdrawal. Patient started drinking once he was discharged from the hospital. Patient all objective signs for all call withdrawal are negative except for subjectively fakes tremor to get Ativan. Patient has multiple hospitalizations and no sclerae well what say to get hospitalized and this time he complained that he he suicidal. Patient denied any such ideations to me. Patient was later evaluated by psychiatry and did not recommend any inpatient hospitalization. I started him on Librium but patient will not be discharged on Librium as I do not believe patient will quit alcohol. Patient is supposed to go to alcohol rehabitation program tomorrow which hopefully he will follow. I did extensively grief counsellor the patient like every single time. Patient understands everything. I didn't explain to him unfortunately I cannot help him medical leave is not willing to quit alcohol. Hospitalizing patient for alcohol withdrawal or alcohol abuse is not beneficial considering that he had multiple hospital and for the same thing never quit alcohol and he did go to rehabilitation as well in spite of which patient used to drink alcohol. Unfortunately medically nothing can be offered to the patient. patient will be discharged today. Probably secondary to alcoholic gastritis although patient is able to tolerate diet well. He'll be discharged on Protonix and Zofran REVIEW OF SYSTEMS: CONSTITUTIONAL: No fever, no malaise, no fatigue. HEENT: No recent visual problems or hearing problems. Denied any sore throat. CARDIOVASCULAR: No chest pain, orthopnea, PND, no palpitations, no syncope. PULMONARY: No shortness of breath, no cough, no hemoptysis. GASTROINTESTINAL: No diarrhea, no nausea, no vomiting, no abdominal pain. NEUROLOGICAL: No headaches, no weakness, no numbness. HEMATOLOGICAL: Denies any bleeding or petechiae. GENITOURINARY: Denies any burning micturition, frequency, or urgency. MUSCULOSKELETAL/RHEUMATOLOGICAL: Denies any joint pain, swelling, or any muscle pain. ENDOCRINE: Denies any polyuria or polydipsia. The rest of the 14-point review of systems is negative. PHYSICAL EXAMINATION: GENERAL: The patient is alert and oriented x3, not in any acute distress. Well developed, well nourished. HEENT: Pupils are round and equally reacting to light. EOMI. No scleral icterus. No conjunctival pallor. Normocephalic, atraumatic. No pharyngeal erythema. No thyromegaly. CARDIOVASCULAR: S1 and S2 present. No murmurs, rubs, or gallops. PULMONARY: Chest is clear to auscultation, no wheezing or crackles. ABDOMEN: Soft, nontender, nondistended, normoactive bowel sounds. No palpable organomegaly. MUSCULOSKELETAL: No joint swelling or deformity. EXTREMITIES: No cyanosis, clubbing, or pedal edema. NEUROLOGICAL: Gross neurological examination did not reveal any focal deficits. SKIN: No rashes. Assessment and plan Alcohol abuse -Acute alcoholic gastritis -Acute alcoholic hepatitis -Complaints of for suicidal ideations: Patient was evaluated by psychiatry not recommending any inpatient hospitalization to psychiatric floor. -Hypertension: Patient's losartan dose will be cut down to 25 mg daily Past Medical History Past Medical History: GERD/Reflux, GI Bleed, Hypertension, Osteoarthritis (OA), Pneumonia, Seizure Disorder, Sleep Apnea/CPAP/BIPAP Additional Past Medical History / Comment(s): Occasional bilateral pedal edema if stands long, arthritis possibly in back/ribs, MILIND without device, ETOH abuse, alcoholic seizures/blackouts/fainting 2016, alcoholic hepatitis, alcoholic gastritis, upper GI bleed, hypomagnesemia, spinal stenosis/herniated disc with surgery, bilateral varicose veins, hemorrhoids History of Any Multi-Drug Resistant Organisms: None Reported Past Surgical History: Appendectomy, Back Surgery, Tonsillectomy Additional Past Surgical History / Comment(s): bilateral discectomy, discectomy L5-S1, EGD Past Anesthesia/Blood Transfusion Reactions: Motion Sickness Past Psychological History: Anxiety, Depression Additional Psychological History / Comment(s): Pt lives alone no pets. Pt uses no assistive device. He drives. Smoking Status: Current some day smoker Past Alcohol Use History: Abuse Additional Past Alcohol Use History / Comment(s): He has been in rehab in the past for ETOH abuse. Pt states he started on and off smoking as a young adult and has more often been a nonsmoker. He states a pack might last him 3-4 days. Pt states he drinks 1/2 gallon vodka since discharged on 11/21/20 Past Drug Use History: None Reported Additional Drug Use History / Comment(s): Pt smoked marijuana on occasion in the past. - Past Family History Father Family Medical History: Cancer, Dementia, Neurologic Disorder Additional Family Medical History / Comment(s): melanoma, parkinsons Mother Family Medical History: Hypertension, Musculoskeletal Disorder, Neurologic Disorder, Osteoarthritis (OA) Additional Family Medical History / Comment(s): Mother of motor neuron disease at the age of 78yrs. Medications and Allergies Home Medications Medication Instructions Recorded Confirmed Type Fluticasone Nasal [place] [Flonase 2 spray EA NOSTRIL BID PRN 10/11/19 12/12/20 History Nasal [place]] traZODone HCL [Desyrel] 100 mg PO HS 05/14/20 12/12/20 History ALPRAZolam [Xanax] 1 mg PO BID PRN #10 tab 06/15/20 12/12/20 Rx Celecoxib [CeleBREX] 200 mg PO DAILY 11/17/20 12/12/20 History Gabapentin [Neurontin] 300 mg PO TID cap 11/21/20 12/12/20 Rx Magnesium Oxide [Mag-Ox] 400 mg PO BID 30 Days #60 tablet 11/21/20 12/12/20 Rx Thiamine [Vitamin B-1] 100 mg PO BID-W/MEALS 30 Days #60 11/21/20 12/12/20 Rx tab chlordiazePOXIDE HCl [Librium] 25 mg PO QID 3 Days #12 capsule 12/11/20 12/12/20 Rx Multivitamins, Thera [Multivitamin 1 tab PO DAILY 12/12/20 12/12/20 History (formulary)] Ondansetron Odt [Zofran ODT] 4 mg PO Q8HR PRN #20 tab 12/13/20 Rx Pantoprazole Sodium [Protonix] 40 mg PO AC-BRKFST #14 tablet. 12/13/20 Rx Allergies Allergy/AdvReac Type Severity Reaction Status Date / Time Cephalosporins Allergy Severe Anaphylaxis Verified 12/12/20 21:45 diphenhydramine HCl Allergy Severe Anaphylaxis Verified 12/12/20 21:45 [From Benadryl] divalproex sodium Allergy Severe Anaphylaxis Verified 12/12/20 21:45 [From Depakote] ceftriaxone [From Rocephin] Allergy Anaphylaxis Verified 12/12/20 21:45 cephalexin [From Keflex] Allergy Anaphylaxis Verified 12/12/20 21:45 lisinopril Allergy Anaphylaxis Verified 12/12/20 21:45 Physical Exam Vitals: Vital Signs Temp Pulse Pulse Resp BP BP Pulse Ox 12/13/20 07:38 98 F 71 17 130/81 96 12/13/20 01:16 98.4 F 97 20 123/93 96 12/13/20 00:48 86 20 110/65 96 12/12/20 19:59 98.7 F 94 20 122/79 95 Intake and Output 12/12/20 12/13/20 12/13/20 22:59 06:59 14:59 Other: # Voids 1 Weight 90.718 kg 90.718 kg Results CBC & Chem 7: 12/12/20 22:22 12/12/20 22:22 Labs: Abnormal Lab Results - Last 24 Hours (Table) 12/12/20 12/12/20 Range/Units 22:22 22:22 RBC 4.05 L (4.30-5.90) m/uL Hgb 12.7 L (13.0-17.5) gm/dL Hct 37.6 L (39.0-53.0) % Plt Count 146 L (150-450) k/uL AST 158 H (17-59) U/L ALT 101 H (4-49) U/L Thrombosis Risk Factor Assmnt - Choose All That Apply Each Factor Represents 1 point: Age 41-60 years Thrombosis Risk Factor Assessment Total Risk Factor Score: 1 Thrombosis Risk Factor Assessment Level: Low Risk
[2020-12-13] MEDS ORDERED: chlordiazePOXIDE 25 MG CAP PO SCH (21:00)
== END 2020-12-13 16:32 | disposition home or self-care (01) ==
LOC: EC 19:55 → 4SSUR 23:08
PROVIDERS: ADMIT Hospitalist; ATTEND Hospitalist
DX: F10.239 Alcohol dependence with withdrawal, unspecified (principal); K29.20 Alcoholic gastritis without bleeding; K70.10 Alcoholic hepatitis without ascites; Z20.822 Contact with and (suspected) exposure to COVID-19; I10 Essential (primary) hypertension; F17.200 Nicotine dependence, unspecified, uncomplicated; F32.9 Major depressive disorder, single episode, unspecified; F41.9 Anxiety disorder, unspecified; G47.33 Obstructive sleep apnea (adult) (pediatric); G40.909 Epilepsy, unspecified, not intractable, without status epilepticus; K21.9 Gastro-esophageal reflux disease without esophagitis; M19.90 Unspecified osteoarthritis, unspecified site; Z79.1 Long term (current) use of non-steroidal anti-inflammatories (NSAID); Z79.899 Other long term (current) drug therapy; Z88.1 Allergy status to other antibiotic agents; Z88.8 Allergy status to other drugs, medicaments and biological substances; Z88.2 Allergy status to sulfonamides; Z87.01 Personal history of pneumonia (recurrent); Z86.59 Personal history of other mental and behavioral disorders; Z90.89 Acquired absence of other organs; Z98.890 Other specified postprocedural states; Z80.8 Family history of malignant neoplasm of other organs or systems; Z82.0 Family history of epilepsy and other diseases of the nervous system; Z82.49 Family history of ischemic heart disease and other diseases of the circulatory system; Z81.8 Family history of other mental and behavioral disorders
CPT/HCPCS: 96376; 96374; 96375; 82075; 96361 ×2; 96372; 99285; 36415; 80053; 85025; 81003; 87635; G0378 ×2; J2060; J3411; C9113

== ENCOUNTER 2020-12-13 23:14 | Emergency (ER) | payer OTHER ==
[2020-12-13] MEDS ORDERED: MORPHINE SULFATE 2 MG/ML SYRINGE IM STA (23:35)
[2020-12-13] MEDS ORDERED: ONDANSETRON 4 MG/2 ML VIAL IM STA (23:50)
--- NOTE | 2020-12-14 00:13 | CT ---
EXAMINATION TYPE: CT brain cspine wo con DATE OF EXAM: 12/14/2020 COMPARISON: 07/04/2020 HISTORY: fall, headache, nausea, ETOH. Prior brain on PACS CT DLP: 1595.9 mGycm Automated exposure control for dose reduction was used. Ventricles have normal size. There is no mass effect nor midline shift. There is no sign of intracran ial hemorrhage. There is mild cerebral atrophy. Calvarium is intact. There is normal aeration of the mastoid sinuses. Cervical vertebra have normal alignment. Disc spaces are fairly normal. There is spurring of the endp lates from C3 to T1. Occipital bone is intact. IMPRESSION: Cerebral atrophy. No acute abnormality. Spondylotic changes in the cervical spine. No fracture. No significant change compared to old exam.
--- NOTE | 2020-12-14 00:30 | ED ---
Fall HPI - General Chief Complaint: Alcohol Stated Complaint: ETOH Time Seen by Provider: 12/13/20 23:16 Source: patient, EMS Mode of arrival: EMS - History of Present Illness Initial Comments: 45-year-old male patient presents to the emergency department today for evaluation after experiencing a fall. Patient states he slipped on some water in the kitchen and fell. States he is lying on the floor for a couple of hours. States he did either passed out or fall asleep on the floor. Does remember the fall. States he does have a headache and nausea. Does admit to drinking alcohol today. States he does have a spot at rehab on Thursday. Was just discharged from the hospital earlier today after being admitted for alcohol intoxication. Patient states he lives alone, no one witnessed the fall. He also reports a "sore neck", denies radiating pain down his arms. Denies any numbness or tingling to the extremities. Denies any back, leg, or hip pain. Patient denies any recent rash, fever, chills, cough, shortness of breath, chest pain, abdominal pain, diarrhea, constipation, back pain, numbness, tingling, hematuria, dysuria, urinary urgency, urinary frequency, or any other complaints. - Related Data Home Medications Medication Instructions Recorded Confirmed Fluticasone Nasal [place] [Flonase 2 spray EA NOSTRIL BID PRN 10/11/19 12/12/20 Nasal [place]] traZODone HCL [Desyrel] 100 mg PO HS 05/14/20 12/12/20 Celecoxib [CeleBREX] 200 mg PO DAILY 11/17/20 12/12/20 Multivitamins, Thera [Multivitamin 1 tab PO DAILY 12/12/20 12/12/20 (formulary)] Previous Rx's Medication Instructions Recorded ALPRAZolam [Xanax] 1 mg PO BID PRN #10 tab 06/15/20 Gabapentin [Neurontin] 300 mg PO TID cap 11/21/20 Magnesium Oxide [Mag-Ox] 400 mg PO BID 30 Days #60 tablet 11/21/20 Thiamine [Vitamin B-1] 100 mg PO BID-W/MEALS 30 Days #60 11/21/20 tab chlordiazePOXIDE HCl [Librium] 25 mg PO QID 3 Days #12 capsule 12/11/20 Losartan [Cozaar] 25 mg PO DAILY #30 tab 07/01/21 Ondansetron Odt [Zofran ODT] 4 mg PO Q8HR PRN #20 tab 12/13/20 Pantoprazole Sodium [Protonix] 40 mg PO AC-BRKFST #14 tablet. 12/13/20 Allergies Allergy/AdvReac Type Severity Reaction Status Date / Time Cephalosporins Allergy Severe Anaphylaxis Verified 12/14/20 06:17 diphenhydramine HCl Allergy Severe Anaphylaxis Verified 12/14/20 06:17 [From Benadryl] divalproex sodium Allergy Severe Anaphylaxis Verified 12/14/20 06:17 [From Depakote] ceftriaxone [From Rocephin] Allergy Anaphylaxis Verified 12/14/20 06:17 cephalexin [From Keflex] Allergy Anaphylaxis Verified 12/14/20 06:17 lisinopril Allergy Anaphylaxis Verified 12/14/20 06:17 Review of Systems ROS Statement: Those systems with pertinent positive or pertinent negative responses have been documented in the HPI. ROS Other: All systems not noted in ROS Statement are negative. Past Medical History Past Medical History: GERD/Reflux, GI Bleed, Hypertension, Osteoarthritis (OA), Pneumonia, Seizure Disorder, Sleep Apnea/CPAP/BIPAP Additional Past Medical History / Comment(s): Occasional bilateral pedal edema if stands long, arthritis possibly in back/ribs, MILIND without device, ETOH abuse, alcoholic seizures/blackouts/fainting 2016, alcoholic hepatitis, alcoholic gastritis, upper GI bleed, hypomagnesemia, spinal stenosis/herniated disc with surgery, bilateral varicose veins, hemorrhoids History of Any Multi-Drug Resistant Organisms: None Reported Past Surgical History: Appendectomy, Back Surgery, Tonsillectomy Additional Past Surgical History / Comment(s): bilateral discectomy, discectomy L5-S1, EGD Past Anesthesia/Blood Transfusion Reactions: Motion Sickness Past Psychological History: Anxiety, Depression Smoking Status: Current every day smoker Past Alcohol Use History: Abuse Past Drug Use History: None Reported - Past Family History Father Family Medical History: Cancer, Dementia, Neurologic Disorder Additional Family Medical History / Comment(s): melanoma, parkinsons Mother Family Medical History: Hypertension, Musculoskeletal Disorder, Neurologic Disorder, Osteoarthritis (OA) Additional Family Medical History / Comment(s): Mother of motor neuron disease at the age of 78yrs. General Exam Limitations: no limitations General appearance: alert, in no apparent distress, appears intoxicated, other (Physical well-developed, well-nourished adult male patient in no acute distress. Vital signs upon presentation To 98.2F, pulse 98, respirations 20, blood pressure 132/103, pulse ox 98% on room air.) Eye exam: Present: normal appearance, PERRL, EOMI. Absent: scleral icterus, conjunctival injection, nystagmus, periorbital swelling ENT exam: Present: normal exam, normal oropharynx, mucous membranes moist Neck exam: Present: normal inspection, full ROM, other (There is no bony step- off or deformity noted to firm midline palpation of the posterior cervical spine.). Absent: tenderness, meningismus, lymphadenopathy Cardiovascular Exam: Present: regular rate, normal rhythm, normal heart sounds. Absent: systolic murmur, diastolic murmur, rubs, gallop, clicks GI/Abdominal exam: Present: soft, normal bowel sounds. Absent: distended, tenderness, guarding, rebound, rigid Neurological exam: Present: alert, oriented X3, CN II-XII intact Psychiatric exam: Present: normal affect, normal mood Skin exam: Present: warm, dry, intact, normal color. Absent: rash Course Vital Signs 12/13/20 12/14/20 12/14/20 23:17 00:12 03:30 Temperature 98 F 97.7 F Pulse Rate 98 70 87 Respiratory 20 22 18 Rate Blood Pressure 132/103 127/79 127/82 O2 Sat by Pulse 98 97 97 Oximetry Medical Decision Making - Medical Decision Making 45 year-old male patient history of alcohol abuse presented to the emergency department for evaluation after a slip and fall. Reported headache and nausea. Does not take blood thinners. Physical exam was unremarkable. He did seem to be intoxicated admitted to drinking today. Otherwise neurologically intact. CT brain C-spine was negative. Breath alcohol was 269. Patient will be discharged. Trying to arrange transportation through his insurance company or through family. Care is handed off to my attending Dr. Ta. - Radiology Data Radiology results: report reviewed, image reviewed CT brain without contrast was obtained. Report was reviewed in its entirety. Impression by Dr. Barraza shows atrophy. No acute abnormality. Spondylotic changes in the cervical spine. No fracture. No significant change compared to old exam. Disposition Clinical Impression: Fall, Headache, Alcohol intoxication Disposition: HOME SELF-CARE Condition: Good Instructions (If sedation given, give patient instructions): Head Injury (ED), Alcohol Intoxication (ED), Fall Prevention (ED) Additional Instructions: Follow up with your primary care physician for recheck in 1-2 days. Return for any new, worsening, or concerning symptoms. Is patient prescribed a controlled substance at d/c from ED?: No Referrals: Veena Bynum DO [Primary Care Provider] - 1-2 days
[2020-12-14] MEDS ORDERED: LORazepam 2 MG/ML INJ IM STA (02:43)
[2020-12-14 03:35] VITALS: BP 127/82; PULSE 87; RESP 18; TEMP 97.7
== END 2020-12-14 03:30 | disposition home or self-care (01) ==
LOC: EC 23:14
DX: F10.129 Alcohol abuse with intoxication, unspecified (principal); R51.9 Headache, unspecified; K21.9 Gastro-esophageal reflux disease without esophagitis; I10 Essential (primary) hypertension; M19.90 Unspecified osteoarthritis, unspecified site; G47.33 Obstructive sleep apnea (adult) (pediatric); G40.909 Epilepsy, unspecified, not intractable, without status epilepticus; F32.9 Major depressive disorder, single episode, unspecified; F41.9 Anxiety disorder, unspecified; F17.200 Nicotine dependence, unspecified, uncomplicated; Z60.2 Problems related to living alone; W01.0XXA Fall on same level from slipping, tripping and stumbling without subsequent striking against object, initial encounter; Y92.000 Kitchen of unspecified non-institutional (private) residence as the place of occurrence of the external cause; Y90.9 Presence of alcohol in blood, level not specified
CPT/HCPCS: 82075; 72125; 70450; 99284; 96372 ×3; J2060; J2405; J2270

== ENCOUNTER 2020-12-14 06:05 | Emergency (ER) | payer OTHER ==
[2020-12-14 06:17] VITALS: TEMP 98.5
[2020-12-14] MEDS ORDERED: LORazepam 2 MG/ML INJ IV STA (06:39)
--- NOTE | 2020-12-14 07:01 | ED ---
General Adult HPI - General Chief complaint: Chest Pain Stated complaint: Chest Pain Time Seen by Provider: 12/14/20 06:22 Source: patient Mode of arrival: ambulatory - History of Present Illness Initial comments: 45-year-old male with a past medical history of GERD, hypertension, GI bleed, chronic alcohol abuse presents to the emergency room for a chief complaint of palpitations. Patient states his chest feels "weird." States it is fluttering. States he has anxiety. Denies pain. Patient was just discharged from the hospital yesterday around 3 PM and then seen in the ER again around midnight. He was discharged about 3 hours ago and presented again to the ER.Patient has no other complaints at this time including shortness of breath, chest pain, abdominal pain, nausea or vomiting, headache, or visual changes. - Related Data Home Medications Medication Instructions Recorded Confirmed Fluticasone Nasal [place] [Flonase 2 spray EA NOSTRIL BID PRN 10/11/19 12/12/20 Nasal [place]] traZODone HCL [Desyrel] 100 mg PO HS 05/14/20 12/12/20 Celecoxib [CeleBREX] 200 mg PO DAILY 11/17/20 12/12/20 Multivitamins, Thera [Multivitamin 1 tab PO DAILY 12/12/20 12/12/20 (formulary)] Previous Rx's Medication Instructions Recorded ALPRAZolam [Xanax] 1 mg PO BID PRN #10 tab 06/15/20 Gabapentin [Neurontin] 300 mg PO TID cap 11/21/20 Magnesium Oxide [Mag-Ox] 400 mg PO BID 30 Days #60 tablet 11/21/20 Thiamine [Vitamin B-1] 100 mg PO BID-W/MEALS 30 Days #60 11/21/20 tab chlordiazePOXIDE HCl [Librium] 25 mg PO QID 3 Days #12 capsule 12/11/20 Losartan [Cozaar] 25 mg PO DAILY #30 tab 12/13/20 Ondansetron Odt [Zofran ODT] 4 mg PO Q8HR PRN #20 tab 12/13/20 Pantoprazole Sodium [Protonix] 40 mg PO AC-BRKFST #14 tablet. 12/13/20 Allergies Allergy/AdvReac Type Severity Reaction Status Date / Time Cephalosporins Allergy Severe Anaphylaxis Verified 12/14/20 06:17 diphenhydramine HCl Allergy Severe Anaphylaxis Verified 12/14/20 06:17 [From Benadryl] divalproex sodium Allergy Severe Anaphylaxis Verified 12/14/20 06:17 [From Depakote] ceftriaxone [From Rocephin] Allergy Anaphylaxis Verified 12/14/20 06:17 cephalexin [From Keflex] Allergy Anaphylaxis Verified 12/14/20 06:17 lisinopril Allergy Anaphylaxis Verified 12/14/20 06:17 Review of Systems ROS Statement: Those systems with pertinent positive or pertinent negative responses have been documented in the HPI. ROS Other: All systems not noted in ROS Statement are negative. Past Medical History Past Medical History: GERD/Reflux, GI Bleed, Hypertension, Osteoarthritis (OA), Pneumonia, Seizure Disorder, Sleep Apnea/CPAP/BIPAP Additional Past Medical History / Comment(s): Occasional bilateral pedal edema if stands long, arthritis possibly in back/ribs, MILIND without device, ETOH abuse, alcoholic seizures/blackouts/fainting 2017, alcoholic hepatitis, alcoholic gastritis, upper GI bleed, hypomagnesemia, spinal stenosis/herniated disc with surgery, bilateral varicose veins, hemorrhoids History of Any Multi-Drug Resistant Organisms: None Reported Past Surgical History: Appendectomy, Back Surgery, Tonsillectomy Additional Past Surgical History / Comment(s): bilateral discectomy, discectomy L5-S1, EGD Past Anesthesia/Blood Transfusion Reactions: Motion Sickness Past Psychological History: Anxiety, Depression Smoking Status: Current every day smoker Past Alcohol Use History: Abuse Past Drug Use History: None Reported - Past Family History Father Family Medical History: Cancer, Dementia, Neurologic Disorder Additional Family Medical History / Comment(s): melanoma, parkinsons Mother Family Medical History: Hypertension, Musculoskeletal Disorder, Neurologic Disorder, Osteoarthritis (OA) Additional Family Medical History / Comment(s): Mother of motor neuron disease at the age of 78yrs. General Exam General appearance: alert, in no apparent distress Head exam: Present: atraumatic, normocephalic, normal inspection Eye exam: Present: normal appearance, PERRL, EOMI. Absent: scleral icterus, conjunctival injection, periorbital swelling ENT exam: Present: normal exam, mucous membranes moist Neck exam: Present: normal inspection. Absent: tenderness, meningismus, lymphadenopathy Respiratory exam: Present: normal lung sounds bilaterally. Absent: respiratory distress, wheezes, rales, rhonchi, stridor Cardiovascular Exam: Present: regular rate, normal rhythm, normal heart sounds. Absent: systolic murmur, diastolic murmur, rubs, gallop, clicks GI/Abdominal exam: Present: soft, normal bowel sounds. Absent: distended, tenderness, guarding, rebound, rigid Course Vital Signs 12/14/20 12/14/20 06:12 07:16 Temperature 98.5 F Pulse Rate 95 73 Respiratory 17 18 Rate Blood Pressure 154/95 123/65 O2 Sat by Pulse 98 99 Oximetry EKG Findings - EKG Comments: EKG Findings:: 627: Normal sinus rhythm, ventricular rate 81, NC 170, QTc 469. 628: Normal sinus rhythm, ventricular rate 82, NC interval 174, QTc 472 Medical Decision Making - Medical Decision Making Vitals are stable. CBC unremarkable. CMP shows chronic transaminitis. EKG nonischemic. Troponin negative. His x-ray shows no acute pulmonary process. Patient denies pain and states his symptoms are more fluttering in his chest and anxiety. he is given Ativan and reevaluated. Clinically sober. Patient can be discharged home. He will return for worsening symptoms. Did discuss follow-up with his primary care provider for these concerns. Patient is supposed to go to treatment on Thursday as well. - Lab Data Result diagrams: 12/14/20 06:46 12/14/20 06:46 Lab Results 12/14/20 12/14/20 12/14/20 Range/Units 06:46 06:46 06:46 WBC 5.9 (3.8-10.6) k/uL RBC 4.33 (4.30-5.90) m/uL Hgb 13.1 (13.0-17.5) gm/dL Hct 41.1 (39.0-53.0) % MCV 94.9 (80.0-100.0) fL MCH 30.3 (25.0-35.0) pg MCHC 31.9 (31.0-37.0) g/dL RDW 14.6 (11.5-15.5) % Plt Count 161 (150-450) k/uL MPV 7.6 Neutrophils % 44 % Lymphocytes % 44 % Monocytes % 7 % Eosinophils % 1 % Basophils % 0 % Neutrophils # 2.6 (1.3-7.7) k/uL Lymphocytes # 2.6 (1.0-4.8) k/uL Monocytes # 0.4 (0-1.0) k/uL Eosinophils # 0.1 (0-0.7) k/uL Basophils # 0.0 (0-0.2) k/uL PT 9.6 (9.0-12.0) sec INR 0.9 (<1.2) APTT 21.9 L (22.0-30.0) sec Sodium 142 (137-145) mmol/L Potassium 4.6 (3.5-5.1) mmol/L Chloride 102 (98-107) mmol/L Carbon Dioxide 26 (22-30) mmol/L Anion Gap 14 mmol/L BUN 13 (9-20) mg/dL Creatinine 0.67 (0.66-1.25) mg/dL Est GFR (CKD-EPI)AfAm >90 (>60 ml/min/1.73 sqM) Est GFR (CKD-EPI)NonAf >90 (>60 ml/min/1.73 sqM) Glucose 83 (74-99) mg/dL Calcium 9.3 (8.4-10.2) mg/dL Magnesium 1.3 L (1.6-2.3) mg/dL Total Bilirubin 1.4 H (0.2-1.3) mg/dL AST 156 H (17-59) U/L ALT 102 H (4-49) U/L Alkaline Phosphatase 52 (38-126) U/L Troponin I (0.000-0.034) ng/mL Total Protein 7.5 (6.3-8.2) g/dL Albumin 4.9 (3.5-5.0) g/dL 12/14/20 Range/Units 06:46 WBC (3.8-10.6) k/uL RBC (4.30-5.90) m/uL Hgb (13.0-17.5) gm/dL Hct (39.0-53.0) % MCV (80.0-100.0) fL MCH (25.0-35.0) pg MCHC (31.0-37.0) g/dL RDW (11.5-15.5) % Plt Count (150-450) k/uL MPV Neutrophils % % Lymphocytes % % Monocytes % % Eosinophils % % Basophils % % Neutrophils # (1.3-7.7) k/uL Lymphocytes # (1.0-4.8) k/uL Monocytes # (0-1.0) k/uL Eosinophils # (0-0.7) k/uL Basophils # (0-0.2) k/uL PT (9.0-12.0) sec INR (<1.2) APTT (22.0-30.0) sec Sodium (137-145) mmol/L Potassium (3.5-5.1) mmol/L Chloride (98-107) mmol/L Carbon Dioxide (22-30) mmol/L Anion Gap mmol/L BUN (9-20) mg/dL Creatinine (0.66-1.25) mg/dL Est GFR (CKD-EPI)AfAm (>60 ml/min/1.73 sqM) Est GFR (CKD-EPI)NonAf (>60 ml/min/1.73 sqM) Glucose (74-99) mg/dL Calcium (8.4-10.2) mg/dL Magnesium (1.6-2.3) mg/dL Total Bilirubin (0.2-1.3) mg/dL AST (17-59) U/L ALT (4-49) U/L Alkaline Phosphatase (38-126) U/L Troponin I <0.012 (0.000-0.034) ng/mL Total Protein (6.3-8.2) g/dL Albumin (3.5-5.0) g/dL Disposition Clinical Impression: Palpitations Disposition: HOME SELF-CARE Condition: Good Instructions (If sedation given, give patient instructions): Heart Palpitations (ED) Additional Instructions: Please follow up with your primary care doctor soon as possible preferably in the next 1-2 days. Return to the emergency room for worsening symptoms. Is patient prescribed a controlled substance at d/c from ED?: No Referrals: Veena Bynum DO [Primary Care Provider] - 1-2 days Time of Disposition: 07:56
[2020-12-14 07:09] LABS: Basophils % (A) 0 %; Eosinophils # (A) 0.1 k/uL (0-0.7); Eosinophils % (A) 1 %; HCT 41.1 % (39.0-53.0); HGB 13.1 gm/dL (13.0-17.5); Lymphocytes # (A) 2.6 k/uL (1.0-4.8); Lymphocytes % (A) 44 %; MCH 30.3 pg (25.0-35.0); MCHC 31.9 g/dL (31.0-37.0); MCV 94.9 fL (80.0-100.0); Mean Platelet Volume 7.6; Monocytes # (A) 0.4 k/uL (0-1.0); Monocytes % (A) 7 %; Neutrophils # (A) 2.6 k/uL (1.3-7.7); Neutrophils % (A) 44 %; Platelet Count 161 k/uL (150-450); RBC 4.33 m/uL (4.30-5.90); RDW 14.6 % (11.5-15.5); WBC 5.9 k/uL (3.8-10.6)
--- NOTE | 2020-12-14 07:16 | XR ---
EXAM: XR Chest, 2 Views CLINICAL HISTORY: ITS.REASON XR Reason: Chest Pain TECHNIQUE: Frontal and lateral views of the chest. COMPARISON: 12/03/2020 FINDINGS: Lungs: Unremarkable. No consolidation. Pleural space: Unremarkable. No pneumothorax. Heart: Unremarkable. No cardiomegaly. Mediastinum: Unremarkable. Bones/joints: Unremarkable. IMPRESSION: No acute pulmonary process.
[2020-12-14 07:26] LABS: ALT 102 U/L (4-49); AST 156 U/L (17-59); African American GFR (CKD) >90 (>60 ml/min/1.73 sqM); Albumin 4.9 g/dL (3.5-5.0); Alkaline Phosphatase 52 U/L (38-126); Anion Gap 14 mmol/L; Blood Urea Nitrogen 13 mg/dL (9-20); Calcium 9.3 mg/dL (8.4-10.2); Carbon Dioxide 26 mmol/L (22-30); Chloride 102 mmol/L (98-107); Glucose 83 mg/dL (74-99); Magnesium 1.3 mg/dL (1.6-2.3); Non-African American GFR(CKD) >90 (>60 ml/min/1.73 sqM); Potassium 4.6 mmol/L (3.5-5.1); Sodium 142 mmol/L (137-145); Total Bilirubin 1.4 mg/dL (0.2-1.3); Total Protein 7.5 g/dL (6.3-8.2)
[2020-12-14 07:33] LABS: INR 0.9 (<1.2); Prothrombin Time 9.6 sec (9.0-12.0)
[2020-12-14 07:50] LABS: Partial Thromboplastin Time 21.9 sec (22.0-30.0)
[2020-12-14] MEDS ORDERED: MAGNESIUM OXIDE 400 MG TAB PO STA (07:56)
[2020-12-14 08:31] VITALS: BP 122/87; PULSE 78; RESP 20
== END 2020-12-14 08:41 | disposition home or self-care (01) ==
LOC: EC 06:05
DX: R00.2 Palpitations (principal); I10 Essential (primary) hypertension; K21.9 Gastro-esophageal reflux disease without esophagitis; M19.90 Unspecified osteoarthritis, unspecified site; G47.33 Obstructive sleep apnea (adult) (pediatric); G40.909 Epilepsy, unspecified, not intractable, without status epilepticus; F32.9 Major depressive disorder, single episode, unspecified; F41.9 Anxiety disorder, unspecified; F17.200 Nicotine dependence, unspecified, uncomplicated
CPT/HCPCS: 36415; 93005; 80053; 83735; 84484; 85025; 85610; 85730; 71046; 99285; 96374; J2060

== ENCOUNTER 2020-12-15 02:44 | Emergency (ER) | payer OTHER ==
--- NOTE | 2020-12-15 03:28 | CT ---
EXAMINATION TYPE: CT brain cspine wo con DATE OF EXAM: 12/15/2020 COMPARISON: 12/13/2020 HISTORY: fall Headache. Neck pain CT DLP: 1585.8 mGycm Automated exposure control for dose reduction was used. There is cerebral cortical atrophy. There is no mass effect nor midline shift. There is no sign of in tracranial hemorrhage. The calvarium is intact. Skull base is intact. There is normal aeration of the mastoid sinuses. The cervical vertebra have normal alignment. There is mild disc space narrowing. There is spurring of the endplates. The posterior elements are intact. Facet joints are intact. There is no evidence of a fracture. IMPRESSION: Mild atrophy. No acute intracranial abnormality. Mild degenerative disc changes in the cervical spine . No fracture. No change compared to recent exam.
[2020-12-15 06:45] VITALS: TEMP 97.4
[2020-12-15 07:35] VITALS: RESP 16
[2020-12-15 10:48] VITALS: BP 123/89; PULSE 79
--- NOTE | 2021-02-21 07:22 | ED ---
Fall HPI - General Chief Complaint: Fall Stated Complaint: ETOH Time Seen by Provider: 12/15/20 02:58 Source: EMS Mode of arrival: EMS - History of Present Illness Initial Comments: Patient's 45-year-old man brought for evaluation of fall. Patient had been drinking. Unsure if there was loss of consciousness or if he was dazed. Denies any other injury. Complaint: fall -: unknown Fall From: standing When Fall Occurred: 1-[address] Fall Occurred: street Loss of Consciousness: unsure Prolonged Down Time?: no Symptoms Prior to Fall: none Context: alcohol use - Related Data Home Medications Medication Instructions Recorded Confirmed Fluticasone Nasal [place] [Flonase 2 spray EA NOSTRIL BID PRN 10/11/19 12/12/20 Nasal [place]] traZODone HCL [Desyrel] 100 mg PO HS 05/14/20 12/12/20 Celecoxib [CeleBREX] 200 mg PO DAILY 11/17/20 12/12/20 Multivitamins, Thera [Multivitamin 1 tab PO DAILY 12/12/20 12/12/20 (formulary)] Previous Rx's Medication Instructions Recorded ALPRAZolam [Xanax] 1 mg PO BID PRN #10 tab 06/15/20 Gabapentin [Neurontin] 300 mg PO TID cap 11/21/20 Magnesium Oxide [Mag-Ox] 400 mg PO BID 30 Days #60 tablet 11/21/20 Thiamine [Vitamin B-1] 100 mg PO BID-W/MEALS 30 Days #60 11/21/20 tab chlordiazePOXIDE HCl [Librium] 25 mg PO QID 3 Days #12 capsule 12/11/20 Losartan [Cozaar] 25 mg PO DAILY #30 tab 12/13/20 Ondansetron Odt [Zofran ODT] 4 mg PO Q8HR PRN #20 tab 12/13/20 Pantoprazole Sodium [Protonix] 40 mg PO AC-BRKFST #14 tablet. 12/13/20 Allergies Allergy/AdvReac Type Severity Reaction Status Date / Time Cephalosporins Allergy Severe Anaphylaxis Verified 12/14/20 06:17 diphenhydramine HCl Allergy Severe Anaphylaxis Verified 12/14/20 06:17 [From Benadryl] divalproex sodium Allergy Severe Anaphylaxis Verified 12/14/20 06:17 [From Depakote] ceftriaxone [From Rocephin] Allergy Anaphylaxis Verified 12/14/20 06:17 cephalexin [From Keflex] Allergy Anaphylaxis Verified 12/14/20 06:17 lisinopril Allergy Anaphylaxis Verified 12/14/20 06:17 Review of Systems ROS Statement: Those systems with pertinent positive or pertinent negative responses have been documented in the HPI. ROS Other: All systems not noted in ROS Statement are negative. Constitutional: Denies: fever Eyes: Denies: vision change Respiratory: Denies: cough, dyspnea Cardiovascular: Denies: chest pain Gastrointestinal: Denies: abdominal pain, vomiting Musculoskeletal: Denies: back pain Skin: Denies: rash Neurological: Reports: headache Past Medical History Past Medical History: GERD/Reflux, GI Bleed, Hypertension, Osteoarthritis (OA), Pneumonia, Seizure Disorder, Sleep Apnea/CPAP/BIPAP Additional Past Medical History / Comment(s): Occasional bilateral pedal edema if stands long, arthritis possibly in back/ribs, MILIND without device, ETOH abuse, alcoholic seizures/blackouts/fainting 2017, alcoholic hepatitis, alcoholic gastritis, upper GI bleed, hypomagnesemia, spinal stenosis/herniated disc with surgery, bilateral varicose veins, hemorrhoids History of Any Multi-Drug Resistant Organisms: None Reported Past Surgical History: Appendectomy, Back Surgery, Tonsillectomy Additional Past Surgical History / Comment(s): bilateral discectomy, discectomy L5-S1, EGD Past Anesthesia/Blood Transfusion Reactions: Motion Sickness Past Psychological History: Anxiety, Depression Smoking Status: Current every day smoker Past Alcohol Use History: Abuse Past Drug Use History: None Reported - Past Family History Father Family Medical History: Cancer, Dementia, Neurologic Disorder Additional Family Medical History / Comment(s): melanoma, parkinsons Mother Family Medical History: Hypertension, Musculoskeletal Disorder, Neurologic Disorder, Osteoarthritis (OA) Additional Family Medical History / Comment(s): Mother of motor neuron disease at the age of 78yrs. General Exam Limitations: no limitations General appearance: alert, in no apparent distress, appears intoxicated Head exam: Present: atraumatic, normocephalic Eye exam: Present: normal appearance, nystagmus. Absent: scleral icterus, c onjunctival injection ENT exam: Present: normal oropharynx Neck exam: Present: normal inspection, tenderness Respiratory exam: Present: normal lung sounds bilaterally. Absent: respiratory distress, wheezes, rales, rhonchi, stridor Cardiovascular Exam: Present: regular rate, normal rhythm, normal heart sounds. Absent: systolic murmur, diastolic murmur, rubs, gallop GI/Abdominal exam: Present: soft. Absent: distended, tenderness, guarding, rebound Extremities exam: Present: normal inspection, normal capillary refill. Absent: pedal edema, calf tenderness Neurological exam: Present: alert, CN II-XII intact. Absent: oriented X3, motor sensory deficit Skin exam: Present: warm, dry, intact, normal color Course Vital Signs 12/15/20 12/15/20 12/15/20 02:50 05:43 06:43 Temperature 97.6 F 97.4 F L Pulse Rate 66 84 87 Respiratory 16 16 18 Rate Blood Pressure 110/79 99/60 121/70 O2 Sat by Pulse 99 96 97 Oximetry 12/15/20 12/15/20 07:33 10:47 Temperature Pulse Rate 87 79 Respiratory 16 16 Rate Blood Pressure 120/79 123/89 O2 Sat by Pulse 99 99 Oximetry Disposition Clinical Impression: Fall, Alcohol intoxication Disposition: HOME SELF-CARE Condition: Good Instructions (If sedation given, give patient instructions): Alcohol Intoxication (ED), Abuse of Alcohol (ED) Is patient prescribed a controlled substance at d/c from ED?: No Referrals: Veena Bynum DO [Primary Care Provider] - 1-2 days
== END 2020-12-15 10:55 | disposition home or self-care (01) ==
LOC: EC 02:44
DX: F10.129 Alcohol abuse with intoxication, unspecified (principal); G40.909 Epilepsy, unspecified, not intractable, without status epilepticus; I10 Essential (primary) hypertension; K21.9 Gastro-esophageal reflux disease without esophagitis; G47.33 Obstructive sleep apnea (adult) (pediatric); M19.90 Unspecified osteoarthritis, unspecified site; F41.9 Anxiety disorder, unspecified; F32.9 Major depressive disorder, single episode, unspecified; F17.200 Nicotine dependence, unspecified, uncomplicated; Z79.1 Long term (current) use of non-steroidal anti-inflammatories (NSAID); Z90.49 Acquired absence of other specified parts of digestive tract; Z88.8 Allergy status to other drugs, medicaments and biological substances; Z88.1 Allergy status to other antibiotic agents; Y90.9 Presence of alcohol in blood, level not specified; W18.30XA Fall on same level, unspecified, initial encounter
CPT/HCPCS: 70450; 72125; 99284

== ENCOUNTER 2021-02-21 12:10 | Inpatient (IN) | payer OTHER ==
[2021-02-21] MEDS ORDERED: SODIUM CHLORIDE 0.9% 1,000 ML IV ONE (13:23)
[2021-02-21] MEDS ORDERED: ONDANSETRON 4 MG/2 ML VIAL IVP STA (13:23)
[2021-02-21] MEDS ORDERED: PANTOPRAZOLE 40 MG/10 ML VIAL IVP ONE (13:23)
[2021-02-21] MEDS ORDERED: SODIUM CHLORIDE 0.9% 500 ML 500 ML IV ONE (13:23)
[2021-02-21] MEDS ORDERED: SODIUM CHLORIDE 0.9% 1,000 ML with MVI, ADULT NO.4 WITH VIT K 10 ML, THIAMINE 100 MG, F... IV ONE ×4 (13:24)
[2021-02-21] MEDS ORDERED: LORazepam 2 MG/ML INJ IV STA ×4 (13:24→17:14)
--- NOTE | 2021-02-21 13:32 | ED ---
General Adult HPI - General Chief complaint: Abdominal Pain Stated complaint: ETOH withdrawals Time Seen by Provider: 02/21/21 12:55 Source: patient, RN notes reviewed, old records reviewed Mode of arrival: ambulatory Limitations: no limitations - History of Present Illness Initial comments: This is a 45-year-old male who states he is an alcoholic and he drinks about a half a gallon of vodka a day. Patient states for the last 2 or so days he has been vomiting nonstop and been unable to keep anything down. Patient states he hasn't had any alcohol for a couple of days. Patient states he has nausea no specific abdominal tenderness just discomfort everywhere in his abdomen. Patient denies any chest pain palpitations difficulty breathing shortness of breath. Patient denies any lightheadedness or dizziness per patient complains of being very tremulous. Patient denies any swelling to his legs. Patient denies any recent injury or trauma. Patient states he would like to quit and go to rehab. - Related Data Home Medications Medication Instructions Recorded Confirmed Fluticasone Nasal [place] [Flonase 2 spray EA NOSTRIL BID PRN 10/11/19 02/21/21 Nasal [place]] traZODone HCL [Desyrel] 100 mg PO HS 05/14/20 02/21/21 Celecoxib [CeleBREX] 200 mg PO DAILY 11/17/20 02/21/21 Multivitamins, Thera [Multivitamin 1 tab PO DAILY 12/12/20 02/21/21 (formulary)] Previous Rx's Medication Instructions Recorded ALPRAZolam [Xanax] 1 mg PO BID PRN #10 tab 06/15/20 Gabapentin [Neurontin] 300 mg PO TID cap 11/21/20 Magnesium Oxide [Mag-Ox] 400 mg PO BID 30 Days #60 tablet 11/21/20 Thiamine [Vitamin B-1] 100 mg PO BID-W/MEALS 30 Days #60 11/21/20 tab Losartan [Cozaar] 25 mg PO DAILY #30 tab 12/13/20 Ondansetron Odt [Zofran ODT] 4 mg PO Q8HR PRN #20 tab 12/13/20 Pantoprazole Sodium [Protonix] 40 mg PO PHILIP #14 tablet. 12/13/20 Allergies Allergy/AdvReac Type Severity Reaction Status Date / Time Cephalosporins Allergy Severe Anaphylaxis Verified 02/21/21 15:33 diphenhydramine HCl Allergy Severe Anaphylaxis Verified 02/21/21 15:33 [From Benadryl] divalproex sodium Allergy Severe Anaphylaxis Verified 02/21/21 15:33 [From Depakote] ceftriaxone [From Rocephin] Allergy Anaphylaxis Verified 02/21/21 15:33 cephalexin [From Keflex] Allergy Anaphylaxis Verified 02/21/21 15:33 lisinopril Allergy Anaphylaxis Verified 02/21/21 15:33 Review of Systems ROS Statement: Those systems with pertinent positive or pertinent negative responses have been documented in the HPI. ROS Other: All systems not noted in ROS Statement are negative. Past Medical History Past Medical History: GERD/Reflux, GI Bleed, Hypertension, Osteoarthritis (OA), Pneumonia, Seizure Disorder, Sleep Apnea/CPAP/BIPAP Additional Past Medical History / Comment(s): Occasional bilateral pedal edema if stands long, arthritis possibly in back/ribs, MILIND without device, ETOH abuse, alcoholic seizures/blackouts/fainting 2017, alcoholic hepatitis, alcoholic gastritis, upper GI bleed, hypomagnesemia, spinal stenosis/herniated disc with surgery, bilateral varicose veins, hemorrhoids History of Any Multi-Drug Resistant Organisms: None Reported Past Surgical History: Appendectomy, Back Surgery, Tonsillectomy Additional Past Surgical History / Comment(s): bilateral discectomy, discectomy L5-S1, EGD Past Anesthesia/Blood Transfusion Reactions: Motion Sickness Past Psychological History: Anxiety, Depression Smoking Status: Current every day smoker Past Alcohol Use History: Abuse Past Drug Use History: None Reported - Past Family History Father Family Medical History: Cancer, Dementia, Neurologic Disorder Additional Family Medical History / Comment(s): melanoma, parkinsons Mother Family Medical History: Hypertension, Musculoskeletal Disorder, Neurologic Disorder, Osteoarthritis (OA) Additional Family Medical History / Comment(s): Mother of motor neuron disease at the age of 78yrs. General Exam - General Exam Comments Initial Comments: GENERAL: Patient is well-developed and well-nourished. Patient is nontoxic and well- hydrated and is in mild distress. ENT: Neck is soft and supple. No significant lymphadenopathy is noted. Oropharynx is clear. Moist mucous membranes. Neck has full range of motion without eliciting any pain. EYES: The sclera were anicteric and conjunctiva were pink and moist. Extraocular movements were intact and pupils were equal round and reactive to light. Eyelids were unremarkable. PULMONARY: Unlabored respirations. Good breath sounds bilaterally. No audible rales rhonchi or wheezing was noted. CARDIOVASCULAR: Patient is tachycardic at about 120 beats a minute ABDOMEN: Soft and nontender with normal bowel sounds. SKIN: Skin is clear with no lesions or rashes and otherwise unremarkable. NEUROLOGIC: Patient is alert and oriented x3. Cranial nerves II through XII are grossly intact. Motor and sensory are also intact. Normal speech, volume and content. Symmetrical smile. Patient is very tremulous. MUSCULOSKELETAL: Normal extremities with adequate strength and full range of motion. LYMPHATICS: No significant lymphadenopathy is noted PSYCHIATRIC: Patient is very anxious. Limitations: no limitations Course Vital Signs 02/21/21 12:55 Temperature 98.9 F Pulse Rate 117 H Respiratory 20 Rate Blood Pressure 152/87 O2 Sat by Pulse 98 Oximetry Medical Decision Making - Medical Decision Making EKG shows sinus tachycardia at a rate of 108 bpm MN interval 170 QRS is 92 QT interval 360 QTC is 493 per patient's EKG shows no ST segment patient depression. This a very poor quality EKG. Patient's EKG shows sinus tachycardia at 101 bpm MN interval 278 QRSs 100 QT interval 370 QTC is 479. Patient's EKG shows no ST segment elevation or depression. Patient was given droperidol and it appeared he was having an ALLERGIC reaction so gave him Solu-Medrol Pepcid because the patient states he has an anaphylactic reaction to Benadryl. Patient also received 0.3 mg IM of epinephrine. After a while appeared more that the patient was having a dystonic reaction to the elli peridol so I started giving the patient Ativan he started to relax. I did an EKG EKG was tachycardic EKG shows a sinus tachycardia 1 25 bpm MN interval is 150 QRS is 92 QT interval 46 QTC is 585. I spoke with Dr. Santillan he agreed to admit the patient admitted the patient wrote admitting orders - Lab Data Result diagrams: 02/21/21 13:47 02/21/21 13:47 Lab Results 02/21/21 02/21/21 Range/Units 13:47 13:47 WBC 8.1 (3.8-10.6) k/uL RBC 4.82 (4.30-5.90) m/uL Hgb 15.1 (13.0-17.5) gm/dL Hct 44.1 (39.0-53.0) % MCV 91.5 (80.0-100.0) fL MCH 31.3 (25.0-35.0) pg MCHC 34.2 (31.0-37.0) g/dL RDW 13.3 (11.5-15.5) % Plt Count 163 (150-450) k/uL MPV 7.6 Neutrophils % 65 % Lymphocytes % 28 % Monocytes % 4 % Eosinophils % 0 % Basophils % 0 % Neutrophils # 5.2 (1.3-7.7) k/uL Lymphocytes # 2.3 (1.0-4.8) k/uL Monocytes # 0.4 (0-1.0) k/uL Eosinophils # 0.0 (0-0.7) k/uL Basophils # 0.0 (0-0.2) k/uL Sodium 136 L (137-145) mmol/L Potassium 4.7 (3.5-5.1) mmol/L Chloride 95 L (98-107) mmol/L Carbon Dioxide 29 (22-30) mmol/L Anion Gap 12 mmol/L BUN 12 (9-20) mg/dL Creatinine 0.64 L (0.66-1.25) mg/dL Est GFR (CKD-EPI)AfAm >90 (>60 ml/min/1.73 sqM) Est GFR (CKD-EPI)NonAf >90 (>60 ml/min/1.73 sqM) Glucose 97 (74-99) mg/dL Calcium 9.7 (8.4-10.2) mg/dL Magnesium 1.1 L (1.6-2.3) mg/dL Total Bilirubin 2.0 H (0.2-1.3) mg/dL AST 117 H (17-59) U/L ALT 50 H (4-49) U/L Alkaline Phosphatase 67 (38-126) U/L Total Protein 7.9 (6.3-8.2) g/dL Albumin 5.0 (3.5-5.0) g/dL Amylase 79 (30-110) U/L Lipase 94 (23-300) U/L Serum Alcohol <10 mg/dL Critical Care Time Critical Care Time: Yes Total Critical Care Time: 35 Disposition Clinical Impression: Adverse effect of droperidol, Alcohol withdrawal, Hypomagnesemia, Dystonic drug reaction Disposition: ADMITTED IP TO THIS HOSP Referrals: Veena Bynum DO [Primary Care Provider] - 1-2 days Time of Disposition: 17:14
[2021-02-21 14:03] LABS: Basophils % (A) 0 %; Eosinophils % (A) 0 %; HCT 44.1 % (39.0-53.0); HGB 15.1 gm/dL (13.0-17.5); Lymphocytes # (A) 2.3 k/uL (1.0-4.8); Lymphocytes % (A) 28 %; MCH 31.3 pg (25.0-35.0); MCHC 34.2 g/dL (31.0-37.0); MCV 91.5 fL (80.0-100.0); Mean Platelet Volume 7.6; Monocytes # (A) 0.4 k/uL (0-1.0); Monocytes % (A) 4 %; Neutrophils # (A) 5.2 k/uL (1.3-7.7); Neutrophils % (A) 65 %; Platelet Count 163 k/uL (150-450); RBC 4.82 m/uL (4.30-5.90); RDW 13.3 % (11.5-15.5); WBC 8.1 k/uL (3.8-10.6)
[2021-02-21 14:18] LABS: ALT 50 U/L (4-49); AST 117 U/L (17-59); African American GFR (CKD) >90 (>60 ml/min/1.73 sqM); Alcohol <10 mg/dL; Alkaline Phosphatase 67 U/L (38-126); Amylase 79 U/L (30-110); Anion Gap 12 mmol/L; Blood Urea Nitrogen 12 mg/dL (9-20); Calcium 9.7 mg/dL (8.4-10.2); Carbon Dioxide 29 mmol/L (22-30); Chloride 95 mmol/L (98-107); Glucose 97 mg/dL (74-99); Lipase 94 U/L (23-300); Magnesium 1.1 mg/dL (1.6-2.3); Non-African American GFR(CKD) >90 (>60 ml/min/1.73 sqM); Potassium 4.7 mmol/L (3.5-5.1); Sodium 136 mmol/L (137-145); Total Protein 7.9 g/dL (6.3-8.2)
[2021-02-21] MEDS ORDERED: methylPREDNISolone SOD SUCCI 125 MG/2 ML VIAL IV STA (16:30)
[2021-02-21] MEDS ORDERED: FAMOTIDINE 20 MG/2 ML VIAL IV STA (16:30)
[2021-02-21] MEDS ORDERED: METOCLOPRAMIDE 5 MG/ML 2 ML VIAL IVP STA (16:50)
[2021-02-21] MEDS ORDERED: THIAMINE 100 MG/ML 2 ML VIAL IM STA (17:19)
[2021-02-21] MEDS ORDERED: LORazepam 2 MG/ML INJ IV PRN ×2 (17:19)
[2021-02-21] MEDS: MAGNESIUM SULFATE-D5W PMX 1 GM in DEXTROSE/WATER 1 100ML.BAG IVPB SCH ×2 (18:52→20:20)
[2021-02-21] MEDS ORDERED: FLUTICASONE 50MCG/SPRAY NASAL 16GM EA NOSTRIL PRN (23:02)
[2021-02-21] MEDS: LORazepam 2 MG/ML INJ IV PRN (23:17)
[2021-02-21] MEDS: GABAPENTIN 300 MG CAP PO SCH (23:24)
[2021-02-21] MEDS: traZODone HCL 100 MG TAB PO SCH (23:24)
[2021-02-21] MEDS: MAGNESIUM OXIDE 400 MG TAB PO SCH (23:24)
[2021-02-21] MEDS: ONDANSETRON 4 MG/2 ML VIAL IVP PRN (23:25)
--- NOTE | 2021-02-21 23:43 | P.HPIM ---
History of Present Illness H&P Date: 02/21/21 Chief Complaint: nausea and vomiting Patient is a 45-year-old male with a known history of hypertension, obstructive sleep apnea not on CPAP at home, GERD, severe alcohol abuse and has been having multiple hospital admissions with alcohol withdrawal symptoms, anxiety/depress ion and currently everyday smoker and alcohol use presents to ER with complaints of nausea and vomiting unable to keep down food for the past 2 to 3 days. Patient usually drinks about half a gallon of vodka per day. Patient states that he has not had any alcohol intake for the past couple of days. he has been having nausea and mild abdominal discomfort. Denies any complaints of chest pain or shortness of breath. No fever no chills. No cough or sputum production.Denies any hematemesis or melena. In the ER patient was continued on IV hydration and symptomatic management for nausea and vomiting and Ativan for withdrawal symptoms. Patient received droperidol in the ER for intractable nausea and 5 minutes after he took the pill patient became catatonic with possible reaction to medication. He was given a dose of methylprednisolone IV x1 and patient is allergic to Benadryl. Laboratory data showed sodium 136 potassium 4.7 chloride 95 bicarb is 29 BUN 12 and creatinine 0.64 Magnesium 1.1 bilirubin 2.0 AST 117 ALT 50 Serum alcohol levels were less than 10 and coronavirus PCR not detected lipase 94 Review of Systems Complete review of systems could not be from the patient except as per HPI Past Medical History Past Medical History: GERD/Reflux, GI Bleed, Hypertension, Osteoarthritis (OA), Pneumonia, Seizure Disorder, Sleep Apnea/CPAP/BIPAP Additional Past Medical History / Comment(s): Occasional bilateral pedal edema if stands long, arthritis possibly in back/ribs, MILIND without device, ETOH abuse, alcoholic seizures/blackouts/fainting 2016, alcoholic hepatitis, alcoholic gastritis, upper GI bleed, hypomagnesemia, spinal stenosis/herniated disc with surgery, bilateral varicose veins, hemorrhoids History of Any Multi-Drug Resistant Organisms: None Reported Past Surgical History: Appendectomy, Back Surgery, Tonsillectomy Additional Past Surgical History / Comment(s): bilateral discectomy, discectomy L5-S1, EGD Past Anesthesia/Blood Transfusion Reactions: Motion Sickness Past Psychological History: Anxiety, Depression Additional Psychological History / Comment(s): Pt lives alone no pets. Pt uses no assistive device. He drives. Smoking Status: Former smoker Past Alcohol Use History: Abuse Additional Past Alcohol Use History / Comment(s): He has been in rehab in the past for ETOH abuse. Pt states he started on and off smoking as a young adult and has more often been a nonsmoker. Pt states he drinks 1/2 gallon vodka since discharged on 11/21/20 Past Drug Use History: None Reported Additional Drug Use History / Comment(s): Pt smoked marijuana on occasion in the past. - Past Family History Father Family Medical History: Cancer, Dementia, Neurologic Disorder Additional Family Medical History / Comment(s): melanoma, parkinsons, schzophrenic Mother Family Medical History: Hypertension, Musculoskeletal Disorder, Neurologic Disorder, Osteoarthritis (OA) Additional Family Medical History / Comment(s): Mother of motor neuron disease at the age of 78yrs. Medications and Allergies Home Medications Medication Instructions Recorded Confirmed Type Fluticasone Nasal [place] [Flonase 2 spray EA NOSTRIL BID PRN 10/11/19 02/21/21 History Nasal [place]] traZODone HCL [Desyrel] 100 mg PO HS 05/14/20 02/21/21 History ALPRAZolam [Xanax] 1 mg PO BID PRN #10 tab 06/15/20 02/21/21 Rx Celecoxib [CeleBREX] 200 mg PO DAILY 11/17/20 02/21/21 History Gabapentin [Neurontin] 300 mg PO TID cap 11/21/20 02/21/21 Rx Magnesium Oxide [Mag-Ox] 400 mg PO BID 30 Days #60 tablet 11/21/20 02/21/21 Rx Thiamine [Vitamin B-1] 100 mg PO BID-W/MEALS 30 Days #60 11/21/20 02/21/21 Rx tab Multivitamins, Thera [Multivitamin 1 tab PO DAILY 12/12/20 02/21/21 History (formulary)] Losartan [Cozaar] 25 mg PO DAILY #30 tab 12/13/20 02/21/21 Rx Ondansetron Odt [Zofran ODT] 4 mg PO Q8HR PRN #20 tab 12/13/20 02/21/21 Rx Pantoprazole Sodium [Protonix] 40 mg PO LENARD-REID #14 tablet. 12/13/20 02/21/21 Rx Allergies Allergy/AdvReac Type Severity Reaction Status Date / Time Cephalosporins Allergy Severe Anaphylaxis Verified 02/21/21 15:33 diphenhydramine HCl Allergy Severe Anaphylaxis Verified 02/21/21 15:33 [From Benadryl] divalproex sodium Allergy Severe Anaphylaxis Verified 02/21/21 15:33 [From Depakote] ceftriaxone [From Rocephin] Allergy Anaphylaxis Verified 02/21/21 15:33 cephalexin [From Keflex] Allergy Anaphylaxis Verified 02/21/21 15:33 lisinopril Allergy Anaphylaxis Verified 02/21/21 15:33 Physical Exam Vitals: Vital Signs Temp Pulse Resp BP Pulse Ox 02/21/21 22:17 78 18 152/98 98 02/21/21 21:00 75 16 144/89 99 02/21/21 20:00 75 18 145/91 98 02/21/21 18:53 89 18 138/91 97 02/21/21 17:20 109 H 18 149/98 100 02/21/21 12:55 98.9 F 117 H 20 152/87 98 Intake and Output 02/21/21 02/21/21 02/22/21 14:59 22:59 06:59 Other: Weight 122.47 kg 122.47 kg PHYSICAL EXAMINATION: Patient is lying in the bed comfortably, no acute distress, awake alert and oriented.Patient is drowsy and lethargic.. HEENT: Normocephalic. Neck is supple. Pupils reactive. Nostrils clear. Oral cavity is moist. Neck reveals no JVD, carotid bruits, or thyromegaly. CHEST EXAMINATION: Trachea is central. Symmetrical expansion. Lung llamas clear to auscultation and percussion. CARDIAC: Normal S1, S2 with no gallops. No murmurs ABDOMEN: Soft. Bowel sounds normal. No organomegaly. No abdominal bruits. Extremities: reveal no edema. No clubbing or cyanosis Neurologically awake, alert, oriented x2-3 with well-coordinated movements. No gross focal deficits noted Skin: No rash or skin lesions. Psychiatric: Coperative.Could not be assessed completely. Musculoskeletal: No joint swelling or deformity. Results CBC & Chem 7: 02/21/21 13:47 02/21/21 13:47 Labs: Abnormal Lab Results - Last 24 Hours (Table) 02/21/21 Range/Units 13:47 Sodium 136 L (137-145) mmol/L Chloride 95 L (98-107) mmol/L Creatinine 0.64 L (0.66-1.25) mg/dL Magnesium 1.1 L (1.6-2.3) mg/dL Total Bilirubin 2.0 H (0.2-1.3) mg/dL AST 117 H (17-59) U/L ALT 50 H (4-49) U/L Thrombosis Risk Factor Assmnt - Choose All That Apply Each Factor Represents 1 point: Age 41-60 years, Obesity (BMI >25) Thrombosis Risk Factor Assessment Total Risk Factor Score: 2 Thrombosis Risk Factor Assessment Level: Low Risk Assessment and Plan Assessment: Intractable nausea and vomiting. Hypomagnesemia Elevated liver enzymes possible alcohol hepatitis Hypovolemic hyponatremia Acute alcohol withdrawal symptoms Severe alcohol abuse and multiple admissions with intoxication GERD Obstructive sleep apnea not on CPAP Hypertension Anxiety/depression DVT prophylaxis Plan: Patient will be continued Zofran as needed for nausea and vomiting. Was given a dose of Reglan in the ER. Continue with IV hydration and multivitamins and thi amine. Continue with alcohol withdrawal protocol. Replace magnesium and follow-up closely. Time with Patient: Greater than 30
[2021-02-22] MEDS: MAGNESIUM SULFATE-D5W PMX 1 GM in DEXTROSE/WATER 1 100ML.BAG IVPB SCH ×2 (01:07→02:13)
[2021-02-22] MEDS: SODIUM CHLORIDE 0.9% 1,000 ML IV SCH ×2 (01:07→15:30)
[2021-02-22] MEDS: LORazepam 2 MG/ML INJ IV PRN ×8 (03:27→21:32)
[2021-02-22] MEDS: THIAMINE 100 MG TAB PO SCH ×2 (06:23→16:13)
[2021-02-22] MEDS: ONDANSETRON 4 MG/2 ML VIAL IVP PRN (06:29)
[2021-02-22] MEDS ORDERED: PANTOPRAZOLE 40 MG TABLET PO SCH (07:30)
[2021-02-22] MEDS: LOSARTAN 25 MG TAB PO SCH (08:19)
[2021-02-22] MEDS: GABAPENTIN 300 MG CAP PO SCH ×3 (08:19→19:55)
[2021-02-22] MEDS: MAGNESIUM OXIDE 400 MG TAB PO SCH ×2 (08:19→19:55)
[2021-02-22 08:23] LABS: Basophils % (A) 0 %; Eosinophils % (A) 0 %; HCT 40.7 % (39.0-53.0); HGB 13.5 gm/dL (13.0-17.5); Lymphocytes # (A) 0.7 k/uL (1.0-4.8); Lymphocytes % (A) 13 %; MCHC 33.1 g/dL (31.0-37.0); MCV 93.6 fL (80.0-100.0); Mean Platelet Volume 7.7; Monocytes # (A) 0.3 k/uL (0-1.0); Monocytes % (A) 6 %; Neutrophils # (A) 4.4 k/uL (1.3-7.7); Neutrophils % (A) 80 %; Platelet Count 139 k/uL (150-450); RBC 4.35 m/uL (4.30-5.90); RDW 13.2 % (11.5-15.5); WBC 5.5 k/uL (3.8-10.6)
[2021-02-22 08:34] LABS: ALT 35 U/L (4-49); AST 78 U/L (17-59); African American GFR (CKD) >90 (>60 ml/min/1.73 sqM); Albumin 3.9 g/dL (3.5-5.0); Alkaline Phosphatase 52 U/L (38-126); Anion Gap 10 mmol/L; Blood Urea Nitrogen 12 mg/dL (9-20); Calcium 8.6 mg/dL (8.4-10.2); Carbon Dioxide 25 mmol/L (22-30); Chloride 101 mmol/L (98-107); Glucose 145 mg/dL (74-99); Magnesium 2.1 mg/dL (1.6-2.3); Non-African American GFR(CKD) >90 (>60 ml/min/1.73 sqM); Potassium 4.6 mmol/L (3.5-5.1); Sodium 136 mmol/L (137-145); Total Bilirubin 1.8 mg/dL (0.2-1.3); Total Protein 6.3 g/dL (6.3-8.2)
[2021-02-22] MEDS ORDERED: PANTOPRAZOLE 40 MG/10 ML VIAL IVP SCH (09:00)
[2021-02-22] MEDS ORDERED: ALPRAZolam 1 MG TAB PO PRN (10:29)
--- NOTE | 2021-02-22 13:49 | P.PN ---
Subjective Progress Note Date: 02/22/21 Patient is a 45-year-old male with a known history of hypertension, obstructive sleep apnea not on CPAP at home, GERD, severe alcohol abuse and has been having multiple hospital admissions with alcohol withdrawal symptoms, anxiety/depression and currently everyday smoker and alcohol use presents to ER with complaints of nausea and vomiting unable to keep down food for the past 2 to 3 days. Patient usually drinks about half a gallon of vodka per day. Patient states that he has not had any alcohol intake for the past couple of days. he has been having nausea and mild abdominal discomfort. Denies any complaints of chest pain or shortness of breath. No fever no chills. No cough or sputum production.Denies any hematemesis or melena. In the ER patient was continued on IV hydration and symptomatic management for nausea and vomiting and Ativan for withdrawal symptoms. Patient received droperidol in the ER for intractable nausea and 5 minutes after he took the pill patient became catatonic with possible reaction to medication. He was given a dose of methylprednisolone IV x1 and patient is allergic to Benadryl. Laboratory data showed sodium 136 potassium 4.7 chloride 95 bicarb is 29 BUN 12 and creatinine 0.64 Magnesium 1.1 bilirubin 2.0 AST 117 ALT 50 Serum alcohol levels were less than 10 and coronavirus PCR not detected lipase 94 02/22/2021 Patient is seen in follow-up this morning continues to have nausea and maintained on Zofran as needed. Patient also being closely monitored for signs of withdrawal and maintained on CIWA protocol. Per nursing staff patient has been requesting IV Ativan and will resume home medications and continue to monitor closely. Patient states he is somewhat tolerating some diet when the Zofran is effective. Instructed the patient to increase activity as tolerated and open the windows and get out of bed more often during the day. Patient magnesium was 1.1 on admission and repeat today after replacement is 2.1 and will monitor closely. Liver functions trending down and current potassium is 4.6 with a sodium of 136. Review of systems: Constitutional: No reports of fatigue, fever, or chills, reports feelings of alcohol withdrawal nausea and tremors Cardiovascular: No reports of chest pain or palpitations Respiratory: No reports of shortness of breath or cough GI: Reports intermittent nausea with no reports of vomiting noted : No reports of dysuria or retention Neurovascular: No reports of weakness or numbness All medications have been reviewed Objective - Vital Signs Vital signs: Vital Signs Temp 97.5 F L 02/22/21 03:47 Pulse 75 02/22/21 03:47 Resp 18 02/22/21 03:47 BP 132/78 02/22/21 03:47 Pulse Ox 94 L 02/22/21 03:47 Intake & Output 02/21/21 02/22/21 02/22/21 18:59 06:59 18:59 Intake Total 1620 Balance 1620 Weight 122.47 kg 119.7 kg Intake: Oral 1620 Other: Voiding Method Toilet # Voids 1 - Exam Patient is lying in the bed comfortably, no acute distress, awake alert and oriented. HEENT: Normocephalic. Neck is supple. Pupils reactive. Nostrils clear. Oral cavity is moist. Neck reveals no JVD, carotid bruits, or thyromegaly. CHEST EXAMINATION: Trachea is central. Symmetrical expansion. Lung llamas clear to auscultation and percussion. CARDIAC: Normal S1, S2 with no gallops. No murmurs ABDOMEN: Soft. Bowel sounds normal. No organomegaly. No abdominal bruits. Extremities: reveal no edema. No clubbing or cyanosis Neurologically awake, alert, oriented x2-3 with well-coordinated movements. No gross focal deficits noted Skin: No rash or skin lesions. Psychiatric: Cooperative. Non-suicidal Musculoskeletal: No joint swelling or deformity. - Labs CBC & Chem 7: 02/22/21 07:21 02/22/21 07:21 Labs: Abnormal Lab Results - Last 24 Hours (Table) 02/21/21 02/22/21 02/22/21 Range/Units 13:47 07:21 07:21 Plt Count 139 L (150-450) k/uL Lymphocytes # 0.7 L (1.0-4.8) k/uL Sodium 136 L 136 L (137-145) mmol/L Chloride 95 L (98-107) mmol/L Creatinine 0.64 L 0.54 L (0.66-1.25) mg/dL Glucose 145 H (74-99) mg/dL Magnesium 1.1 L (1.6-2.3) mg/dL Total Bilirubin 2.0 H 1.8 H (0.2-1.3) mg/dL AST 117 H 78 H (17-59) U/L ALT 50 H (4-49) U/L Assessment and Plan Assessment: Intractable nausea and vomiting. Hypomagnesemia, improved Elevated liver enzymes possible alcohol hepatitis Hypovolemic hyponatremia Acute alcohol withdrawal symptoms Severe alcohol abuse and multiple admissions with intoxication GERD Obstructive sleep apnea not on CPAP Hypertension Anxiety/depression DVT prophylaxis Plan: Patient will be continued Zofran as needed for nausea and vomiting. Continue with IV hydration and multivitamins and thiamine. Continue with alcohol withdrawal protocol. Encourage the patient to increase activity as tolerated sitting up out of the bed more often and open the shades during the day as he is currently sitting in the dark. Per nursing staff patient has been requesting IV Ativan often. Magnesium has been replaced and is 2.1 today. Liver enzymes trending down. Will continue to monitor for signs of withdrawal with possible discharge in 24 hours.
[2021-02-22] MEDS: traZODone HCL 100 MG TAB PO SCH (19:55)
[2021-02-23] MEDS: LORazepam 2 MG/ML INJ IV PRN ×4 (01:07→15:03)
[2021-02-23] MEDS: THIAMINE 100 MG TAB PO SCH ×2 (06:33→15:03)
[2021-02-23] MEDS: SODIUM CHLORIDE 0.9% 1,000 ML IV SCH ×2 (07:23→15:04)
[2021-02-23 07:42] LABS: ALT 49 U/L (4-49); AST 97 U/L (17-59); African American GFR (CKD) >90 (>60 ml/min/1.73 sqM); Albumin 3.3 g/dL (3.5-5.0); Alkaline Phosphatase 48 U/L (38-126); Anion Gap 5 mmol/L; Blood Urea Nitrogen 14 mg/dL (9-20); Calcium 8.6 mg/dL (8.4-10.2); Carbon Dioxide 28 mmol/L (22-30); Chloride 103 mmol/L (98-107); Glucose 97 mg/dL (74-99); Magnesium 1.6 mg/dL (1.6-2.3); Non-African American GFR(CKD) >90 (>60 ml/min/1.73 sqM); Sodium 136 mmol/L (137-145); Total Bilirubin 1.5 mg/dL (0.2-1.3); Total Protein 5.6 g/dL (6.3-8.2)
[2021-02-23] MEDS: MAGNESIUM OXIDE 400 MG TAB PO SCH ×2 (08:27→20:15)
[2021-02-23] MEDS: LOSARTAN 25 MG TAB PO SCH (08:27)
[2021-02-23] MEDS: PANTOPRAZOLE 40 MG TABLET PO SCH (08:27)
[2021-02-23] MEDS: MAGNESIUM SULFATE-D5W PMX 1 GM in DEXTROSE/WATER 1 100ML.BAG IVPB SCH ×4 (08:27→23:04)
[2021-02-23] MEDS: GABAPENTIN 300 MG CAP PO SCH ×3 (08:27→20:15)
--- NOTE | 2021-02-23 18:21 | P.PN ---
Subjective Progress Note Date: 02/23/21 Principal diagnosis: Nausea vomiting and abdominal discomfort. Acute alcohol withdrawal symptoms Patient is a 45-year-old male with a known history of hypertension, obstructive sleep apnea not on CPAP at home, GERD, severe alcohol abuse and has been having multiple hospital admissions with alcohol withdrawal symptoms, anxiety/depression and currently everyday smoker and alcohol use presents to ER with complaints of nausea and vomiting unable to keep down food for the past 2 to 3 days. Patient usually drinks about half a gallon of vodka per day. Patient states that he has not had any alcohol intake for the past couple of days. he has been having nausea and mild abdominal discomfort. Denies any complaints of chest pain or shortness of breath. No fever no chills. No cough or sputum production.Denies any hematemesis or melena. In the ER patient was continued on IV hydration and symptomatic management for nausea and vomiting and Ativan for withdrawal symptoms. Patient received droperidol in the ER for intractable nausea and 5 minutes after he took the pill patient became catatonic with possible reaction to medication. He was given a dose of methylprednisolone IV x1 and patient is allergic to Benadryl. Laboratory data showed sodium 136 potassium 4.7 chloride 95 bicarb is 29 BUN 12 and creatinine 0.64 Magnesium 1.1 bilirubin 2.0 AST 117 ALT 50 Serum alcohol levels were less than 10 and coronavirus PCR not detected lipase 94 02/22/2021 Patient is seen in follow-up this morning continues to have nausea and maintained on Zofran as needed. Patient also being closely monitored for signs of withdrawal and maintained on CIWA protocol. Per nursing staff patient has been requesting IV Ativan and will resume home medications and continue to monitor closely. Patient states he is somewhat tolerating some diet when the Zofran is effective. Instructed the patient to increase activity as tolerated and open the windows and get out of bed more often during the day. Patient magnesium was 1.1 on admission and repeat today after replacement is 2.1 and will monitor closely. Liver functions trending down and current potassium is 4.6 with a sodium of 136. 02/23/2021 Patient is currently resting heard. Awake alert and drowsy and lethargic. Still requiring IV Ativan and alcohol withdrawal protocol. Patient is able to tolerate some oral diet. No complaints of difficulty swallowing. Nausea improved. No headache or dizziness or lightheadedness. No chest pain or shortness of breath. Laboratory data showed sodium 136 potassium 4.0 chloride 103 BUN 14 and creatinine 0.61 bilirubin level trending down to 1.5 and magnesium 1.6 Active Medications Generic Name Dose Route Start Last Admin Trade Name Freq PRN Reason Stop Dose Admin Alprazolam 1 mg 02/22/21 10:29 Alprazolam 1 Mg Tab PO BID PRN Anxiety Fluticasone Propionate 2 spray 02/21/21 23:02 Fluticasone 50mcg/[place] Nasal 16gm EA NOSTRIL BID PRN Allergy Symptoms Gabapentin 300 mg 02/21/21 23:15 02/23/21 15:03 Gabapentin 300 Mg Cap PO 300 mg TID TRAVIS Administration Sodium Chloride 1,000 mls @ 75 mls/hr 02/22/21 00:30 02/23/21 15:04 Saline 0.9% IV Not Given .[id number] TRAVIS Lorazepam 1 mg 02/21/21 17:19 02/23/21 15:03 Lorazepam 2 Mg/Ml Inj IV 1 mg Q2HR PRN Administration CIWA 8 or 9 Lorazepam 1 mg 02/21/21 17:19 Lorazepam 2 Mg/Ml Inj IV Q1HR PRN CIWA 10 to 15 Losartan Potassium 25 mg 02/22/21 09:00 02/23/21 08:27 Losartan 25 Mg Tab PO 25 mg DAILY TRAVIS Administration Magnesium Oxide 400 mg 02/21/21 23:15 02/23/21 08:27 Magnesium Oxide 400 Mg Tab PO 400 mg BID TRAVIS Administration Ondansetron HCl 4 mg 02/21/21 23:15 02/22/21 06:29 Ondansetron 4 Mg/2 Ml Vial IVP 4 mg Q6HR PRN Administration Nausea And Vomiting Pantoprazole Sodium 40 mg 02/23/21 09:00 02/23/21 08:27 Pantoprazole 40 Mg Tablet PO 40 mg DAILY TRAVIS Administration Thiamine HCl 100 mg 02/22/21 07:30 02/23/21 15:03 Thiamine 100 Mg Tab PO 100 mg BID-W/MEALS TRAVIS Administration Trazodone HCl 100 mg 02/21/21 23:15 02/22/21 19:55 Trazodone Hcl 100 Mg Tab PO 100 mg HS TRAVIS Administration Objective - Vital Signs Vital signs: Vital Signs Temp 97.4 F L 02/23/21 16:00 Pulse 79 02/23/21 16:00 Resp 16 02/23/21 16:00 BP 128/64 02/23/21 16:00 Pulse Ox 97 02/23/21 16:00 Intake & Output 02/22/21 02/23/21 02/23/21 18:59 06:59 18:59 Intake Total 480 600 820 Output Total 600 Balance 480 0 820 Weight 117.5 kg Intake: Oral 480 600 820 Output: Urine 600 Other: Voiding Method Toilet Toilet # Voids 3 1 1 - Exam Patient is lying in the bed comfortably, no acute distress, awake alert and oriented. HEENT: Normocephalic. Neck is supple. Pupils reactive. Nostrils clear. Oral cavity is moist. Neck reveals no JVD, carotid bruits, or thyromegaly. CHEST EXAMINATION: Trachea is central. Symmetrical expansion. Lung llamas clear to auscultation and percussion. CARDIAC: Normal S1, S2 with no gallops. No murmurs ABDOMEN: Soft. Bowel sounds normal. No organomegaly. No abdominal bruits. Extremities: reveal no edema. No clubbing or cyanosis Neurologically awake, alert, oriented x2-3 with well-coordinated movements. No gross focal deficits noted Skin: No rash or skin lesions. Psychiatric: Cooperative. Non-suicidal Musculoskeletal: No joint swelling or deformity. - Labs CBC & Chem 7: 02/22/21 07:21 02/23/21 06:56 Labs: Abnormal Lab Results - Last 24 Hours (Table) 02/23/21 Range/Units 06:56 Sodium 136 L (137-145) mmol/L Creatinine 0.61 L (0.66-1.25) mg/dL Total Bilirubin 1.5 H (0.2-1.3) mg/dL AST 97 H (17-59) U/L Total Protein 5.6 L (6.3-8.2) g/dL Albumin 3.3 L (3.5-5.0) g/dL Assessment and Plan Assessment: Intractable nausea and vomiting. Hypomagnesemia, improved Elevated liver enzymes possible alcohol hepatitis Hypovolemic hyponatremia Acute alcohol withdrawal symptoms Severe alcohol abuse and multiple admissions with intoxication GERD Obstructive sleep apnea not on CPAP Hypertension Anxiety/depression DVT prophylaxis Plan: Patient will be continued Zofran as needed for nausea and vomiting. Continue with IV hydration and multivitamins and thiamine. Continue with alcohol withdrawal protocol. Encourage the patient to increase activity as tolerated sitting up out of the bed more often and open the shades during the day as he is currently sitting in the dark. Per nursing staff patient has been requesting IV Ativan often. Magnesium has been replaced and is 2.1 today. Liver enzymes trending down. Will continue to monitor for signs of withdrawal .
[2021-02-23] MEDS: traZODone HCL 100 MG TAB PO SCH (20:15)
[2021-02-23] MEDS: ONDANSETRON 4 MG/2 ML VIAL IVP PRN (23:06)
[2021-02-24] MEDS: LORazepam 2 MG/ML INJ IV PRN ×2 (07:04→10:39)
[2021-02-24] MEDS: THIAMINE 100 MG TAB PO SCH ×2 (07:04→15:54)
[2021-02-24] MEDS: SODIUM CHLORIDE 0.9% 1,000 ML IV SCH (07:29)
[2021-02-24] MEDS: MAGNESIUM OXIDE 400 MG TAB PO SCH ×2 (08:33→20:22)
[2021-02-24] MEDS: PANTOPRAZOLE 40 MG TABLET PO SCH (08:33)
[2021-02-24] MEDS: GABAPENTIN 300 MG CAP PO SCH ×3 (08:33→20:22)
[2021-02-24] MEDS: LOSARTAN 25 MG TAB PO SCH (08:33)
[2021-02-24] MEDS: ACETAMINOPHEN TAB 325 MG TAB PO PRN ×2 (09:33→20:25)
[2021-02-24 10:34] LABS: ALT 57 U/L (4-49); AST 98 U/L (17-59); African American GFR (CKD) >90 (>60 ml/min/1.73 sqM); Albumin 3.6 g/dL (3.5-5.0); Alkaline Phosphatase 48 U/L (38-126); Anion Gap 5 mmol/L; Blood Urea Nitrogen 11 mg/dL (9-20); Calcium 9.3 mg/dL (8.4-10.2); Carbon Dioxide 29 mmol/L (22-30); Chloride 102 mmol/L (98-107); Glucose 119 mg/dL (74-99); Magnesium 1.6 mg/dL (1.6-2.3); Non-African American GFR(CKD) >90 (>60 ml/min/1.73 sqM); Potassium 4.5 mmol/L (3.5-5.1); Sodium 136 mmol/L (137-145); Total Bilirubin 1.1 mg/dL (0.2-1.3); Total Protein 6.1 g/dL (6.3-8.2)
[2021-02-24] MEDS ORDERED: Magnesium Replacement Protocol 1 EACH MISC MISCELLANE PRN (10:41)
[2021-02-24] MEDS: MAGNESIUM SULFATE-D5W PMX 1 GM in DEXTROSE/WATER 1 100ML.BAG IVPB SCH ×2 (11:05→11:59)
[2021-02-24] MEDS: ALPRAZolam 0.5 MG TAB PO PRN ×2 (15:54→23:58)
[2021-02-24] MEDS: traZODone HCL 100 MG TAB PO SCH (20:23)
--- NOTE | 2021-02-25 01:11 | P.PN ---
Subjective Progress Note Date: 02/24/21 Principal diagnosis: Nausea vomiting and abdominal discomfort. Acute alcohol withdrawal symptoms Patient is a 45-year-old male with a known history of hypertension, obstructive sleep apnea not on CPAP at home, GERD, severe alcohol abuse and has been having multiple hospital admissions with alcohol withdrawal symptoms, anxiety/depression and currently everyday smoker and alcohol use presents to ER with complaints of nausea and vomiting unable to keep down food for the past 2 to 3 days. Patient usually drinks about half a gallon of vodka per day. Patient states that he has not had any alcohol intake for the past couple of days. he has been having nausea and mild abdominal discomfort. Denies any complaints of chest pain or shortness of breath. No fever no chills. No cough or sputum production.Denies any hematemesis or melena. In the ER patient was continued on IV hydration and symptomatic management for nausea and vomiting and Ativan for withdrawal symptoms. Patient received droperidol in the ER for intractable nausea and 5 minutes after he took the pill patient became catatonic with possible reaction to medication. He was given a dose of methylprednisolone IV x1 and patient is allergic to Benadryl. Laboratory data showed sodium 136 potassium 4.7 chloride 95 bicarb is 29 BUN 12 and creatinine 0.64 Magnesium 1.1 bilirubin 2.0 AST 117 ALT 50 Serum alcohol levels were less than 10 and coronavirus PCR not detected lipase 94 02/22/2021 Patient is seen in follow-up this morning continues to have nausea and maintained on Zofran as needed. Patient also being closely monitored for signs of withdrawal and maintained on CIWA protocol. Per nursing staff patient has been requesting IV Ativan and will resume home medications and continue to monitor closely. Patient states he is somewhat tolerating some diet when the Zofran is effective. Instructed the patient to increase activity as tolerated and open the windows and get out of bed more often during the day. Patient magnesium was 1.1 on admission and repeat today after replacement is 2.1 and will monitor closely. Liver functions trending down and current potassium is 4.6 with a sodium of 136. 02/23/2021 Patient is currently resting heard. Awake alert and drowsy and lethargic. Still requiring IV Ativan and alcohol withdrawal protocol. Patient is able to tolerate some oral diet. No complaints of difficulty swallowing. Nausea improved. No headache or dizziness or lightheadedness. No chest pain or shortness of breath. Laboratory data showed sodium 136 potassium 4.0 chloride 103 BUN 14 and creatinine 0.61 bilirubin level trending down to 1.5 and magnesium 1.6 02/24/2021 Patient is currently awake alert but requiring Ativan IV. No complaints of chest pain or shortness of breath. Complains of nausea but improved. Tolerating oral diet. Replace electrolytes-magnesium. Patient has been afebrile. Anticipate discharge in the next 24 to 48 hours with more clinical improvement Active Medications Generic Name Dose Route Start Last Admin Trade Name Freq PRN Reason Stop Dose Admin Alprazolam 1 mg 02/22/21 10:29 Alprazolam 1 Mg Tab PO BID PRN Anxiety Fluticasone Propionate 2 spray 02/21/21 23:02 Fluticasone 50mcg/[place] Nasal 16gm EA NOSTRIL BID PRN Allergy Symptoms Gabapentin 300 mg 02/21/21 23:15 02/23/21 15:03 Gabapentin 300 Mg Cap PO 300 mg TID TRAVIS Administration Sodium Chloride 1,000 mls @ 75 mls/hr 02/22/21 00:30 02/23/21 15:04 Saline 0.9% IV Not Given .[id number] TRAVIS Lorazepam 1 mg 02/21/21 17:19 02/23/21 15:03 Lorazepam 2 Mg/Ml Inj IV 1 mg Q2HR PRN Administration CIWA 8 or 9 Lorazepam 1 mg 02/21/21 17:19 Lorazepam 2 Mg/Ml Inj IV Q1HR PRN CIWA 10 to 15 Losartan Potassium 25 mg 02/22/21 09:00 02/23/21 08:27 Losartan 25 Mg Tab PO 25 mg DAILY TRAVIS Administration Magnesium Oxide 400 mg 02/21/21 23:15 02/23/21 08:27 Magnesium Oxide 400 Mg Tab PO 400 mg BID TRAVIS Administration Ondansetron HCl 4 mg 02/21/21 23:15 02/22/21 06:29 Ondansetron 4 Mg/2 Ml Vial IVP 4 mg Q6HR PRN Administration Nausea And Vomiting Pantoprazole Sodium 40 mg 02/23/21 09:00 02/23/21 08:27 Pantoprazole 40 Mg Tablet PO 40 mg DAILY TRAVIS Administration Thiamine HCl 100 mg 02/22/21 07:30 02/23/21 15:03 Thiamine 100 Mg Tab PO 100 mg BID-W/MEALS TRAVIS Administration Trazodone HCl 100 mg 02/21/21 23:15 02/22/21 19:55 Trazodone Hcl 100 Mg Tab PO 100 mg HS TRAVIS Administration Objective - Vital Signs Vital signs: Vital Signs Temp 97.8 F 02/24/21 20:00 Pulse 75 02/24/21 20:00 Resp 18 02/24/21 20:00 BP 120/75 02/24/21 20:00 Pulse Ox 95 02/24/21 20:00 Intake & Output 02/24/21 02/24/21 02/25/21 06:59 18:59 06:59 Intake Total 600 1800 Balance 600 1800 Weight 115 kg Intake: Oral 600 1800 Other: Voiding Method Toilet # Voids 1 1 # Bowel Movements 1 - Exam Patient is lying in the bed comfortably, no acute distress, awake alert and oriented. HEENT: Normocephalic. Neck is supple. Pupils reactive. Nostrils clear. Oral cavity is moist. Neck reveals no JVD, carotid bruits, or thyromegaly. CHEST EXAMINATION: Trachea is central. Symmetrical expansion. Lung llamas clear to auscultation and percussion. CARDIAC: Normal S1, S2 with no gallops. No murmurs ABDOMEN: Soft. Bowel sounds normal. No organomegaly. No abdominal bruits. Extremities: reveal no edema. No clubbing or cyanosis Neurologically awake, alert, oriented x2-3 with well-coordinated movements. No gross focal deficits noted Skin: No rash or skin lesions. Psychiatric: Cooperative. Non-suicidal Musculoskeletal: No joint swelling or deformity. - Labs CBC & Chem 7: 02/22/21 07:21 02/24/21 09:33 Labs: Abnormal Lab Results - Last 24 Hours (Table) 02/24/21 Range/Units 09:33 Sodium 136 L (137-145) mmol/L Creatinine 0.65 L (0.66-1.25) mg/dL Glucose 119 H (74-99) mg/dL AST 98 H (17-59) U/L ALT 57 H (4-49) U/L Total Protein 6.1 L (6.3-8.2) g/dL Assessment and Plan Assessment: Intractable nausea and vomiting. Hypomagnesemia, improved Elevated liver enzymes possible alcohol hepatitis Hypovolemic hyponatremia Acute alcohol withdrawal symptoms Severe alcohol abuse and multiple admissions with intoxication GERD Obstructive sleep apnea not on CPAP Hypertension Anxiety/depression DVT prophylaxis Plan: Patient will be continued Zofran as needed for nausea and vomiting. Continue with IV hydration and multivitamins and thiamine. Continue with alcohol withdrawal protocol. Encourage the patient to increase activity as tolerated sitting up out of the bed more often and open the shades during the day as he is currently sitting in the dark. Per nursing staff patient has been requesting IV Ativan often. Magnesium has been replaced today. Liver enzymes trending down. Will continue to monitor for signs of withdrawal .
[2021-02-25] MEDS: SODIUM CHLORIDE 0.9% 1,000 ML IV SCH (06:38)
[2021-02-25] MEDS: ACETAMINOPHEN TAB 325 MG TAB PO PRN (07:01)
[2021-02-25] MEDS: THIAMINE 100 MG TAB PO SCH (07:02)
[2021-02-25] MEDS: PANTOPRAZOLE 40 MG TABLET PO SCH (08:18)
[2021-02-25] MEDS: GABAPENTIN 300 MG CAP PO SCH (08:18)
[2021-02-25] MEDS: MAGNESIUM OXIDE 400 MG TAB PO SCH (08:18)
[2021-02-25] MEDS: LOSARTAN 25 MG TAB PO SCH (08:19)
[2021-02-25 08:45] LABS: Basophils % (A) 0 %; Eosinophils # (A) 0.2 k/uL (0-0.7); Eosinophils % (A) 3 %; HCT 43.1 % (39.0-53.0); HGB 14.2 gm/dL (13.0-17.5); Lymphocytes # (A) 2.5 k/uL (1.0-4.8); Lymphocytes % (A) 37 %; MCH 31.2 pg (25.0-35.0); MCHC 32.9 g/dL (31.0-37.0); MCV 94.7 fL (80.0-100.0); Mean Platelet Volume 7.9; Monocytes # (A) 0.4 k/uL (0-1.0); Monocytes % (A) 6 %; Neutrophils # (A) 3.5 k/uL (1.3-7.7); Neutrophils % (A) 52 %; Platelet Count 144 k/uL (150-450); RBC 4.56 m/uL (4.30-5.90); RDW 13.4 % (11.5-15.5); WBC 6.8 k/uL (3.8-10.6)
[2021-02-25 09:07] LABS: African American GFR (CKD) >90 (>60 ml/min/1.73 sqM); Anion Gap 7 mmol/L; Blood Urea Nitrogen 18 mg/dL (9-20); Calcium 9.6 mg/dL (8.4-10.2); Carbon Dioxide 29 mmol/L (22-30); Chloride 97 mmol/L (98-107); Glucose 105 mg/dL (74-99); Non-African American GFR(CKD) >90 (>60 ml/min/1.73 sqM); Potassium 4.7 mmol/L (3.5-5.1); Sodium 133 mmol/L (137-145)
[2021-02-25 10:22] VITALS: BP 122/73; PULSE 64; RESP 16; TEMP 98
[2021-02-25] MEDS ORDERED: MAGNESIUM OXIDE 400 MG TAB PO SCH (16:00)
--- NOTE | 2021-02-26 12:39 | P.DS ---
Providers Date of admission: 02/21/21 17:17 Expected date of discharge: 02/25/21 Attending physician: Gabriel Santillan Primary care physician: Veena Mar Hospital Course: Final diagnosis Intractable nausea and vomiting. Hypomagnesemia, improved Elevated liver enzymes possible alcohol hepatitis Hypovolemic hyponatremia Acute alcohol withdrawal symptoms Severe alcohol abuse and multiple admissions with intoxication GERD Obstructive sleep apnea not on CPAP Hypertension Anxiety/depression DVT prophylaxis Discharge disposition Patient is being discharged in a stable condition with guarded prognosis to home. Patient will follow-up with Dr. Mar upon discharge. Patient will need to follow-up with [facility] and continue with outpatient resources for alcohol rehab. Total time taken is greater than 35 minutes. Hospital course Nausea vomiting and abdominal discomfort. Acute alcohol withdrawal symptoms Patient is a 45-year-old male with a known history of hypertension, obstructive sleep apnea not on CPAP at home, GERD, severe alcohol abuse and has been having multiple hospital admissions with alcohol withdrawal symptoms, anxiety/depression and currently everyday smoker and alcohol use presents to ER with complaints of nausea and vomiting unable to keep down food for the past 2 to 3 days. Patient usually drinks about half a gallon of vodka per day. Patient states that he has not had any alcohol intake for the past couple of days. he has been having nausea and mild abdominal discomfort. Denies any complaints of chest pain or shortness of breath. No fever no chills. No cough or sputum production.Denies any hematemesis or melena. In the ER patient was continued on IV hydration and symptomatic management for nausea and vomiting and Ativan for withdrawal symptoms. Patient received droperidol in the ER for intractable nausea and 5 minutes after he took the pill patient became catatonic with possible reaction to medication. He was given a dose of methylprednisolone IV x1 and patient is allergic to Benadryl. Laboratory data showed sodium 136 potassium 4.7 chloride 95 bicarb is 29 BUN 12 and creatinine 0.64 Magnesium 1.1 bilirubin 2.0 AST 117 ALT 50 Serum alcohol levels were less than 10 and coronavirus PCR not detected lipase 94 02/22/2021 Patient is seen in follow-up this morning continues to have nausea and maintained on Zofran as needed. Patient also being closely monitored for signs of withdrawal and maintained on CIWA protocol. Per nursing staff patient has been requesting IV Ativan and will resume home medications and continue to monitor closely. Patient states he is somewhat tolerating some diet when the Zofran is effective. Instructed the patient to increase activity as tolerated and open the windows and get out of bed more often during the day. Patient magnesium was 1.1 on admission and repeat today after replacement is 2.1 and will monitor closely. Liver functions trending down and current potassium is 4.6 with a sodium of 136. 02/23/2021 Patient is currently resting heard. Awake alert and drowsy and lethargic. Still requiring IV Ativan and alcohol withdrawal protocol. Patient is able to tolerate some oral diet. No complaints of difficulty swallowing. Nausea improved. No headache or dizziness or lightheadedness. No chest pain or shortness of breath. Laboratory data showed sodium 136 potassium 4.0 chloride 103 BUN 14 and creatinine 0.61 bilirubin level trending down to 1.5 and magnesium 1.6 02/24/2021 Patient is currently awake alert but requiring Ativan IV. No complaints of chest pain or shortness of breath. Complains of nausea but improved. Tolerating oral diet. Replace electrolytes-magnesium. Patient has been afebrile. Anticipate discharge in the next 24 to 48 hours with more clinical improvement 02/25/2021 Patient is seen in follow-up no acute overnight issues. Patient is not requiring IV Ativan and not showing any signs of alcohol withdrawal. Discussed extensively about refraining from alcohol intake and following closely with [facility] along with AA meetings and possible alcohol rehab again. Patient instructed to follow-up with primary care provider on discharge. Currently no reports of chest pain, shortness of breath, or palpitations. Patient is afebrile. No reports of nausea or vomiting and patient is tolerating diet. Patient will be discharged home today. Guarded prognosis due to multiple hospitalizations for alcohol abuse and withdrawals. Patient is sitting up in the chair comfortably, no acute distress, awake alert and oriented. HEENT: Normocephalic. Neck is supple. Pupils reactive. Nostrils clear. Oral cavity is moist. Neck reveals no JVD, carotid bruits, or thyromegaly. CHEST EXAMINATION: Trachea is central. Symmetrical expansion. Lung llamas clear to auscultation and percussion. CARDIAC: Normal S1, S2 with no gallops. No murmurs ABDOMEN: Soft. Bowel sounds normal. No organomegaly. No abdominal bruits. Extremities: reveal no edema. No clubbing or cyanosis Neurologically awake, alert, oriented x2-3 with well-coordinated movements. No gross focal deficits noted Skin: No rash or skin lesions. Psychiatric: Cooperative. Non-suicidal Musculoskeletal: No joint swelling or deformity. Please refer to medication reconciliation sheet for a list of medications. Patient Condition at Discharge: Stable Plan - Discharge Summary Discharge Rx Participant: No New Discharge Prescriptions: New Magnesium Oxide [Mag-Ox] 400 mg PO TID #90 tab Acetaminophen Tab [Tylenol] 650 mg PO Q6HR PRN #20 tab PRN Reason: Fever And/ Or Pain Continue Fluticasone Nasal [place] [Flonase Nasal [place]] 2 spray EA NOSTRIL BID PRN PRN Reason: Allergy Symptoms traZODone HCL [Desyrel] 100 mg PO HS Gabapentin [Neurontin] 300 mg PO TID cap Thiamine [Vitamin B-1] 100 mg PO BID-W/MEALS 30 Days #60 tab Pantoprazole Sodium [Protonix] 40 mg PO AC-BRKFST #14 tablet. Losartan [Cozaar] 25 mg PO DAILY #30 tab ALPRAZolam [Xanax] 1 mg PO BID PRN #10 tab PRN Reason: Anxiety Multivitamins, Thera [Multivitamin (formulary)] 1 tab PO DAILY Ondansetron Odt [Zofran ODT] 4 mg PO Q8HR PRN #20 tab PRN Reason: Nausea Discontinued Celecoxib [CeleBREX] 200 mg PO DAILY Magnesium Oxide [Mag-Ox] 400 mg PO BID 30 Days #60 tablet Discharge Medication List Fluticasone Nasal [place] [Flonase Nasal [place]] 2 spray EA NOSTRIL BID PRN 10/11/19 [History] traZODone HCL [Desyrel] 100 mg PO HS 05/14/20 [History] Gabapentin [Neurontin] 300 mg PO TID cap 11/21/20 [Rx] Thiamine [Vitamin B-1] 100 mg PO BID-W/MEALS 30 Days #60 tab 11/21/20 [Rx] Multivitamins, Thera [Multivitamin (formulary)] 1 tab PO DAILY 12/12/20 [History] Losartan [Cozaar] 25 mg PO DAILY #30 tab 12/13/20 [Rx] Ondansetron Odt [Zofran ODT] 4 mg PO Q8HR PRN #20 tab 12/13/20 [Rx] Pantoprazole Sodium [Protonix] 40 mg PO AC-BRKFST #14 tablet. 12/13/20 [Rx] ALPRAZolam [Xanax] 1 mg PO BID PRN #10 tab 02/25/21 [Rx] Acetaminophen Tab [Tylenol] 650 mg PO Q6HR PRN #20 tab 02/25/21 [Rx] Magnesium Oxide [Mag-Ox] 400 mg PO TID #90 tab 02/25/21 [Rx] Follow up Appointment(s)/Referral(s): Veena Mar DO [Primary Care Provider] - 02/26/21 2:20 am Patient Instructions/Handouts: Abuse of Alcohol (DC), Alcohol Withdrawal (DC) Activity/Diet/Wound Care/Special Instructions: activity limited until follow up follow up with pcp on discharge Follow-up [facility] outpatient Follow-up with rehab in the outpatient setting Avoid alcohol intake Discharge/Stand Alone Forms: AA Meetings [facility], Who Do I Call?, Community Resources, Outpatient Counseling Discharge Disposition: HOME SELF-CARE
== END 2021-02-25 11:13 | disposition home or self-care (01) | DRG 897 ==
LOC: EC 12:10 → 3SCARD 17:17
PROVIDERS: ADMIT Internal Medicine; ATTEND Internal Medicine
DX: F10.139 Alcohol abuse with withdrawal, unspecified (principal); E87.1 Hypo-osmolality and hyponatremia; G24.09 Other drug induced dystonia; E83.42 Hypomagnesemia; E86.1 Hypovolemia; F17.200 Nicotine dependence, unspecified, uncomplicated; F32.9 Major depressive disorder, single episode, unspecified; F41.9 Anxiety disorder, unspecified; Z20.822 Contact with and (suspected) exposure to COVID-19; G47.33 Obstructive sleep apnea (adult) (pediatric); K21.9 Gastro-esophageal reflux disease without esophagitis; I10 Essential (primary) hypertension; G40.909 Epilepsy, unspecified, not intractable, without status epilepticus; Z79.1 Long term (current) use of non-steroidal anti-inflammatories (NSAID); Z79.899 Other long term (current) drug therapy; Z80.8 Family history of malignant neoplasm of other organs or systems; Z82.0 Family history of epilepsy and other diseases of the nervous system; Z82.49 Family history of ischemic heart disease and other diseases of the circulatory system; Z88.8 Allergy status to other drugs, medicaments and biological substances; T43.595A Adverse effect of other antipsychotics and neuroleptics, initial encounter; Y92.238 Other place in hospital as the place of occurrence of the external cause
CPT/HCPCS: 36415; 80048; 80053; 80320; 82150; 83690; 83735; 85025; 87635; 93005; 96365; 96375; 96376; 99291

== ENCOUNTER 2021-07-15 20:09 | Inpatient (IN) | payer BC, OTHER ==
[2021-07-15] MEDS ORDERED: ONDANSETRON 4 MG/2 ML VIAL IVP STA (20:23)
[2021-07-15] MEDS ORDERED: PANTOPRAZOLE 40 MG/10 ML VIAL IVP STA (20:23)
[2021-07-15] MEDS ORDERED: SODIUM CHLORIDE 0.9% 1,000 ML IV STA ×2 (20:23→22:06)
[2021-07-15] MEDS ORDERED: THIAMINE 100 MG/ML 2 ML VIAL IM STA (20:49)
[2021-07-15] MEDS ORDERED: LORazepam 2 MG/ML INJ IV PRN (20:49)
[2021-07-15] MEDS ORDERED: FAMOTIDINE 20 MG/2 ML VIAL IV STA (20:50)
[2021-07-15] MEDS ORDERED: MORPHINE SULFATE 2 MG/ML SYRINGE IVP STA (20:50)
[2021-07-15] MEDS ORDERED: LORazepam 2 MG/ML INJ IV STA (21:14)
--- NOTE | 2021-07-15 21:17 | XR ---
EXAMINATION TYPE: XR chest 1V portable DATE OF EXAM: 07/15/2021 COMPARISON: 12/14/2020 HISTORY: Chest pain TECHNIQUE: Single view FINDINGS: Heart and mediastinum are normal. Lungs are clear. Diaphragm is normal. Bony thorax appears normal. IMPRESSION: Normal chest. No change.
[2021-07-15 21:30] LABS: Basophils % (A) 1 %; Eosinophils % (A) 0 %; HCT 47.1 % (39.0-53.0); HGB 15.2 gm/dL (13.0-17.5); Lymphocytes # (A) 2.5 k/uL (1.0-4.8); Lymphocytes % (A) 48 %; MCHC 32.4 g/dL (31.0-37.0); MCV 92.8 fL (80.0-100.0); Mean Platelet Volume 6.8; Monocytes # (A) 0.2 k/uL (0-1.0); Monocytes % (A) 5 %; Neutrophils # (A) 2.3 k/uL (1.3-7.7); Neutrophils % (A) 44 %; Platelet Count 354 k/uL (150-450); RBC 5.07 m/uL (4.30-5.90); RDW 13.4 % (11.5-15.5); WBC 5.2 k/uL (3.8-10.6)
[2021-07-15 21:40] LABS: ALT 114 U/L (4-49); AST 176 U/L (17-59); African American GFR (CKD) >90 (>60 ml/min/1.73 sqM); Alkaline Phosphatase 59 U/L (38-126); Amylase 58 U/L (30-110); Anion Gap 20 mmol/L; Blood Urea Nitrogen 14 mg/dL (9-20); Calcium 8.8 mg/dL (8.4-10.2); Carbon Dioxide 20 mmol/L (22-30); Chloride 102 mmol/L (98-107); Glucose 75 mg/dL (74-99); Lipase 70 U/L (23-300); Non-African American GFR(CKD) >90 (>60 ml/min/1.73 sqM); Potassium 4.8 mmol/L (3.5-5.1); Sodium 142 mmol/L (137-145); Total Bilirubin 0.9 mg/dL (0.2-1.3); Total Protein 7.9 g/dL (6.3-8.2)
[2021-07-15 21:57] LABS: Alcohol 354 mg/dL
--- NOTE | 2021-07-15 22:33 | CT ---
EXAMINATION TYPE: CT brain wo con DATE OF EXAM: 07/15/2021 COMPARISON: 12/15/2020 HISTORY: ams CT DLP: 1155.4 mGycm Automated exposure control for dose reduction was used. Ventricles have normal size. There is no mass effect or midline shift. There is no sign of intracrani al hemorrhage. Calvarium is intact. There is no evidence of cerebral edema. Skull base is intact. The re is normal aeration of the mastoid sinuses. IMPRESSION: Negative unenhanced head CT scan. No change.
[2021-07-15] MEDS ORDERED: NALOXONE 0.4 MG/ML 1 ML VIAL IV PRN (23:00)
--- NOTE | 2021-07-15 23:02 | ED ---
General Adult HPI - General Chief complaint: Alcohol Stated complaint: ETOH, vomiting Time Seen by Provider: 07/15/21 20:18 Source: patient, EMS, RN notes reviewed, old records reviewed Mode of arrival: EMS - History of Present Illness Initial comments: Patient is a 46-year-old male who presents emergency Department acutely intoxicated with alcohol. Patient is a history of heavy alcohol abuse. Also has a history of hypertension, seizure disorder, alcohol withdrawals. States he has been having nausea and vomiting over the last few days and states he has been drinking alcohol. Is uncertain how much he drank. He is alert and oriented [address] is a headache, it is uncertain if he fell or hit his head. No obvious trauma. States he has pain in his epigastric region when he has episodes of vomiting, however denies any other pain at this time. Denies any history of pancreatitis. Denies any fevers, chills, cough, chest pain. His no other acute complaints at this time. Presents emergency department over concern for alcohol intoxication as well as the nausea and vomiting.Patient was evaluated when he was placed in a room. - Related Data Home Medications Medication Instructions Recorded Confirmed Fluticasone Nasal [place] [Flonase 2 spr EA NOSTRIL BID 10/11/19 07/15/21 Nasal [place]] traZODone HCL [Desyrel] 100 mg PO HS PRN 05/14/20 07/15/21 Albuterol Sulfate [Proair Hfa] 1 - 2 puff INHALATION RT-QID PRN 07/06/21 07/15/21 Celecoxib [CeleBREX] 200 mg PO DAILY 07/06/21 07/15/21 Gabapentin [Neurontin] 600 mg PO TID 07/06/21 07/15/21 Naltrexone HCl [Revia] 50 mg PO DAILY 07/06/21 07/15/21 chlordiazePOXIDE HCl [Librium] See Taper PO DIRECTED 07/15/21 07/15/21 Previous Rx's Medication Instructions Recorded ALPRAZolam [Xanax] 1 mg PO BID PRN #10 tab 02/25/21 Acetaminophen Tab [Tylenol] 650 mg PO Q6HR PRN tab 07/10/21 Cholestyramine (with Sugar) 4 gm PO BID@1000,1800 PRN #30 07/10/21 [Questran Packet] packet Loperamide [Imodium] 2 mg PO QID PRN #20 cap 07/10/21 Pantoprazole Sodium [Protonix] 40 mg PO BID 30 Days #60 tab 07/10/21 Thiamine [Vitamin B-1] 100 mg PO BID-W/MEALS 30 Days #60 07/10/21 tab Allergies Allergy/AdvReac Type Severity Reaction Status Date / Time Cephalosporins Allergy Severe Anaphylaxis Verified 07/15/21 20:45 diphenhydramine HCl Allergy Severe Anaphylaxis Verified 07/15/21 20:45 [From Benadryl] divalproex sodium Allergy Severe Anaphylaxis Verified 07/15/21 20:45 [From Depakote] ceftriaxone [From Rocephin] Allergy Anaphylaxis Verified 07/15/21 20:45 cephalexin [From Keflex] Allergy Anaphylaxis Verified 07/15/21 20:45 droperidol Allergy Anaphylaxis Verified 07/15/21 20:45 lisinopril Allergy Anaphylaxis Verified 07/15/21 20:45 Review of Systems ROS Statement: Those systems with pertinent positive or pertinent negative responses have been documented in the HPI. Review of Systems: CONST: Denies fever EYES: Denies blurry vision ENT: Denies nasal congestion C/V: Denies Chest pain RESP: Denies shortness of breath GI: Endorses nausea, vomiting. : Denies dysuria SKIN: Denies rash. MSK: Denies joint pain. NEURO: Denies headache PSYCH: Denies suicidal and homicidal ideations/plans/attempts. Denies visual or auditory hallucinations. ROS Other: All systems not noted in ROS Statement are negative. Past Medical History Past Medical History: GERD/Reflux, GI Bleed, Hypertension, Osteoarthritis (OA), Pneumonia, Seizure Disorder, Sleep Apnea/CPAP/BIPAP Additional Past Medical History / Comment(s): Occasional bilateral pedal edema if stands long, arthritis possibly in back/ribs, MILIND without device, ETOH abuse, alcoholic seizures/blackouts/fainting 2017, alcoholic hepatitis, alcoholic sushma ritis, upper GI bleed, hypomagnesemia, spinal stenosis/herniated disc with surgery, bilateral varicose veins, hemorrhoids History of Any Multi-Drug Resistant Organisms: None Reported Past Surgical History: Appendectomy, Back Surgery, Tonsillectomy Additional Past Surgical History / Comment(s): bilateral discectomy, discectomy L5-S1, EGD Past Anesthesia/Blood Transfusion Reactions: Motion Sickness Past Psychological History: Anxiety, Depression Smoking Status: Current every day smoker Past Alcohol Use History: Abuse, Daily, Heavy Past Drug Use History: None Reported - Past Family History Father Family Medical History: Cancer, Dementia, Neurologic Disorder Additional Family Medical History / Comment(s): melanoma, parkinsons, schzophrenic Mother Family Medical History: Hypertension, Musculoskeletal Disorder, Neurologic Disorder, Osteoarthritis (OA) Additional Family Medical History / Comment(s): Mother of motor neuron disease at the age of 78yrs. General Exam - General Exam Comments Initial Comments: General: Appears acutely toxic and with alcohol. HEAD: Normal with no signs of head trauma. No step-offs or deformities of the scalp. Negative ventura sign. Negative raccoon eyes. EYES: PERRLA, EOMI, conjunctiva normal, no discharge. Pupils are 3 mm and equal bilaterally. ENT: Hearing grossly intact, normal oropharynx. Dry mucous membranes. RESPIRATORY: Clear breath sounds bilaterally. No wheezes, rales, or rhonchi. C/V: Regular rate and rhythm. S1 and S2 auscultated, no edema, peripheral pulses 2+ and intact throughout ABD: Abd is soft, nontender, nondistended EXT: Normal range of motion, no obvious deformity SKIN: No rashes or lesions observed on exposed skin. NEURO: Alert and oriented 4. Patient is tremulous. Cranial nerves II through XII are intact. He is able to ambulate. He is acutely intoxicated with alcohol. GCS is 15 at this time. NIH is 0. Course Vital Signs 07/15/21 20:12 Temperature 98.4 F Pulse Rate 99 Respiratory 18 Rate Blood Pressure 172/102 O2 Sat by Pulse 98 Oximetry Medical Decision Making - Medical Decision Making Based on patient's presentation and physical exam, I'm concerned for acute alcohol intoxication the patient. Cannot rule out possibly of ETOH withdrawal at this time or acute intra-abdominal process secondary to his nausea and vomiting. Therefore we will obtain abdominal laboratory studies, alcohol level. We will obtain a screening EKG as well as. He will be symptomatically treated with 1 L fluid bolus, as well as IV Ativan, Protonix, Zofran. Patient was in agreement this plan. Patient was placed on CIWA protocol. EKG showed no signs of acute ischemia. Brain CT was obtained due to concern for possible head injury, and it showed no acute intracranial process. Chest x-ray revealed no acute cardiopulmonary process. Laboratory studies are remarkable for a mild anion gap metabolic acidosis, with a CO2 of 20 and anion gap of 20. This is likely secondary to alcoholic ketoacidosis in the clinical setting. Lactate is still pending at this time. Alcohol level is 354. LFTs are slightly elevated in the 100s. Remainder the labs are unremarkable. Reevaluation come patient's tremors are improved. Vital signs remained within normal limits stable. I would like to admit the patient the hospital for his acute alcohol intoxication and concern for alcohol withdrawal and alcoholic ketoacidosis. There were in agreement this plan. I spoke with the admitting team under Dr. Santillan who accepted the patient. Patient was therefore admitted in serious condition to telemetry bed. - Lab Data Result diagrams: 07/15/21 21:22 07/15/21 21: Lab Results 07/15/21 07/15/21 Range/Units 21:22 21:22 WBC 5.2 (3.8-10.6) k/uL RBC 5.07 (4.30-5.90) m/uL Hgb 15.2 (13.0-17.5) gm/dL Hct 47.1 (39.0-53.0) % MCV 92.8 (80.0-100.0) fL MCH 30.0 (25.0-35.0) pg MCHC 32.4 (31.0-37.0) g/dL RDW 13.4 (11.5-15.5) % Plt Count 354 (150-450) k/uL MPV 6.8 Neutrophils % 44 % Lymphocytes % 48 % Monocytes % 5 % Eosinophils % 0 % Basophils % 1 % Neutrophils # 2.3 (1.3-7.7) k/uL Lymphocytes # 2.5 (1.0-4.8) k/uL Monocytes # 0.2 (0-1.0) k/uL Eosinophils # 0.0 (0-0.7) k/uL Basophils # 0.0 (0-0.2) k/uL Sodium 142 (137-145) mmol/L Potassium 4.8 (3.5-5.1) mmol/L Chloride 102 (98-107) mmol/L Carbon Dioxide 20 L (22-30) mmol/L Anion Gap 20 mmol/L BUN 14 (9-20) mg/dL Creatinine 0.72 (0.66-1.25) mg/dL Est GFR (CKD-EPI)AfAm >90 (>60 ml/min/1.73 sqM) Est GFR (CKD-EPI)NonAf >90 (>60 ml/min/1.73 sqM) Glucose 75 (74-99) mg/dL Calcium 8.8 (8.4-10.2) mg/dL Total Bilirubin 0.9 (0.2-1.3) mg/dL AST 176 H (17-59) U/L ALT 114 H (4-49) U/L Alkaline Phosphatase 59 (38-126) U/L Total Protein 7.9 (6.3-8.2) g/dL Albumin 5.0 (3.5-5.0) g/dL Amylase 58 (30-110) U/L Lipase 70 (23-300) U/L Serum Alcohol 354 H* mg/dL - EKG Data -: EKG Interpreted by Me EKG Comments: 12-lead Electrocardiogram Interpretation Note EKG was reviewed and interpreted by myself. 12-lead ECG performed at 2145 is interpreted by me as revealing normal sinus rhythm at a rate of 89 beats per minute. [employer] is normal. [place] interval is 172 ms, QRS durations 110 ms, QTc is 450 ms.. There were no ST or T wave abnormalities to suggest myocardial ischemia or injury. R wave progression across the precordium was satisfactory. By my interpretation this EKG is non-diagnostic for acute ischemia. There is a good deal of baseline artifact in some leads, particularly lead V2 which makes interpretation difficult. Disposition Clinical Impression: Alcohol intoxication, Alcoholic ketoacidosis, Nausea & vomiting Disposition: ADMITTED IP TO THIS [facility] Condition: Serious Referrals: Veena Bynum DO [Primary Care Provider] - 1-2 days
[2021-07-15] MEDS: LORazepam 2 MG/ML INJ IV PRN (23:42)
[2021-07-16] MEDS ORDERED: ONDANSETRON 4 MG/2 ML VIAL IVP PRN (00:49)
[2021-07-16] MEDS ORDERED: MAG HYDROX/AL HYDROX/SIMETH 30 ML CUP PO STA (00:49)
[2021-07-16] MEDS ORDERED: MORPHINE SULFATE 2 MG/ML SYRINGE IVP STA (00:49)
[2021-07-16] MEDS ORDERED: DEXTROSE 5%-0.9% NACL 1,000 ML IV SCH (01:00)
[2021-07-16 03:09] LABS: Basophils % (A) 1 %; Eosinophils % (A) 0 %; HCT 41.9 % (39.0-53.0); HGB 13.6 gm/dL (13.0-17.5); Lymphocytes # (A) 1.9 k/uL (1.0-4.8); Lymphocytes % (A) 41 %; MCH 30.6 pg (25.0-35.0); MCHC 32.5 g/dL (31.0-37.0); MCV 94.2 fL (80.0-100.0); Mean Platelet Volume 7.7; Monocytes # (A) 0.2 k/uL (0-1.0); Monocytes % (A) 5 %; Neutrophils # (A) 2.4 k/uL (1.3-7.7); Neutrophils % (A) 51 %; Platelet Count 264 k/uL (150-450); RBC 4.45 m/uL (4.30-5.90); RDW 12.9 % (11.5-15.5); WBC 4.6 k/uL (3.8-10.6)
[2021-07-16 03:32] LABS: African American GFR (CKD) >90 (>60 ml/min/1.73 sqM); Anion Gap 14 mmol/L; Blood Urea Nitrogen 13 mg/dL (9-20); Carbon Dioxide 25 mmol/L (22-30); Chloride 102 mmol/L (98-107); Glucose 206 mg/dL (74-99); Non-African American GFR(CKD) >90 (>60 ml/min/1.73 sqM); Potassium 4.3 mmol/L (3.5-5.1); Sodium 141 mmol/L (137-145)
[2021-07-16] MEDS: DEXTROSE 5%-0.9% NACL 1,000 ML IV SCH ×3 (04:51→20:08)
[2021-07-16] MEDS: LORazepam 2 MG/ML INJ IV PRN ×5 (05:06→20:07)
[2021-07-16 05:10] LABS: Appearance,Urine Clear (Clear); Bilirubin,Urine Negative (Negative); Blood,Urine Negative (Negative); Color,Urine Yellow; Glucose,Urine (UA) Negative (Negative); Ketones,Urine Negative (Negative); Leukocyte Esterase,Urine Negative (Negative); Nitrite,Urine Negative (Negative); Protein,Urine Negative (Negative); Specific Gravity,Urine 1.015 (1.001-1.035); Urobilinogen,Urine <2.0 mg/dL (<2.0)
[2021-07-16 05:17] LABS: Amphetamine Screen,Urine Not Detected (NotDetected); Barbiturate Screen,Urine Not Detected (NotDetected); Benzodiazepines Screen,Urine Detected (NotDetected); Cocaine Screen,Urine Not Detected (NotDetected); Methadone Screen, Urine Not Detected (NotDetected); Opiate Screen,Urine Detected (NotDetected); Oxycodone Screen, Urine Not Detected (NotDetected); Phencyclidine Screen,Urine Not Detected (NotDetected); Tricyclic Antidepressant,Urine Not Detected (NotDetected); Urn Cannabinoid Scrn Detected (NotDetected)
[2021-07-16] MEDS ORDERED: ALBUTEROL NEBULIZED 2.5 MG/3 ML INHALATION PRN (06:51)
[2021-07-16] MEDS ORDERED: traZODone HCL 100 MG TAB PO PRN (06:51)
[2021-07-16] MEDS ORDERED: PROMETHAZINE 25 MG TAB PO PRN (06:52)
--- NOTE | 2021-07-16 08:39 | P.HPIM ---
History of Present Illness This is a pleasant 43 years old male with past medical history of hypertension, GERD, GI bleed, pneumonia, seizure disorder, sleep apnea on CPAP/BiPAP, alcohol abuse, alcoholic seizure, alcoholic hepatitis, alcoholic gastritis, upper GI bleed, spinal stenosis with herniated disc status post surgery, hemorrhoids. Presents with recurrent vomiting as he tells me for the last 3 days, he was drinking only water and vodka usually he drinks a pint but he has been drinking about half a gallon this time. And he had some chest pain headache and shakiness and some mild epigastric discomfort so he decided to come to the emergency room. This time he was lying in bed with tremor in both upper extremities. He denies abdominal pain or current vomiting. No chest pain currently. He looks anxious. He does not have bowel movement for a few days because he was not eating much. No dyspnea or chest pain. He feels also depressed about his significant other 2 months ago before [place] with drug overdose like cracks. Also he lost his job earlier this month. He smokes about 1 pack per day and he lives marijuana, he was counseled to quit and he agrees to the nicotine patch. He feels depressed but he denies suicidal or homicidal ideation., Vitas looks stable electrolytes are within normal limits. Glucose is 206. Elevated lactic acid 4.7 and 4.2. Urine analysis is not suspicious of infection. Urine drug screen is positive for opioids, benzodiazepines and marijuana coronavirus not detected. EKG showing normal sinus rhythm at [address]-T changes and QTC 450 CT of the brain:no acute process. in the emergency room he was started on CIWA protocol and a mean and normal saline his CIWA score Past Medical History Past Medical History: GERD/Reflux, GI Bleed, Hypertension, Osteoarthritis (OA), Pneumonia, Seizure Disorder, Sleep Apnea/CPAP/BIPAP Additional Past Medical History / Comment(s): Occasional bilateral pedal edema if stands long, arthritis possibly in back/ribs, MILIND without device, ETOH abuse, alcoholic seizures/blackouts/fainting 2016, alcoholic hepatitis, alcoholic gastritis, upper GI bleed, hypomagnesemia, spinal stenosis/herniated disc with surgery, bilateral varicose veins, hemorrhoids History of Any Multi-Drug Resistant Organisms: None Reported Past Surgical History: Appendectomy, Back Surgery, Tonsillectomy Additional Past Surgical History / Comment(s): bilateral discectomy, discectomy L5-S1, EGD Past Anesthesia/Blood Transfusion Reactions: Motion Sickness Past Psychological History: Anxiety, Depression Smoking Status: Current every day smoker Past Alcohol Use History: Abuse, Daily, Heavy Past Drug Use History: None Reported - Past Family History Father Family Medical History: Cancer, Dementia, Neurologic Disorder Additional Family Medical History / Comment(s): melanoma, parkinsons, schzophrenic Mother Family Medical History: Hypertension, Musculoskeletal Disorder, Neurologic Disorder, Osteoarthritis (OA) Additional Family Medical History / Comment(s): Mother of motor neuron disease at the age of 78yrs. Medications and Allergies Home Medications Medication Instructions Recorded Confirmed Type Fluticasone Nasal [place] [Flonase 2 spr EA NOSTRIL BID 10/11/19 07/15/21 History Nasal [place]] traZODone HCL [Desyrel] 100 mg PO HS PRN 05/14/20 07/15/21 History ALPRAZolam [Xanax] 1 mg PO BID PRN #10 tab 02/25/21 07/15/21 Rx Albuterol Sulfate [Proair Hfa] 1 - 2 puff INHALATION RT-QID PRN 07/06/21 History Celecoxib [CeleBREX] 200 mg PO DAILY 07/06/21 07/15/21 History Gabapentin [Neurontin] 600 mg PO TID 07/06/21 07/15/21 History Naltrexone HCl [Revia] 50 mg PO DAILY 07/06/21 07/15/21 History Acetaminophen Tab [Tylenol] 650 mg PO Q6HR PRN tab 07/10/21 07/15/21 Rx Cholestyramine (with Sugar) 4 gm PO BID@1000,1800 PRN #30 07/10/21 07/15/21 Rx [Questran Packet] packet Loperamide [Imodium] 2 mg PO QID PRN #20 cap 07/10/21 07/15/21 Rx Pantoprazole Sodium [Protonix] 40 mg PO BID 30 Days #60 tab 07/10/21 07/15/21 Rx Thiamine [Vitamin B-1] 100 mg PO BID-W/MEALS 30 Days #60 07/10/21 07/15/21 Rx tab chlordiazePOXIDE HCl [Librium] See Taper PO DIRECTED 07/15/21 07/15/21 History Allergies Allergy/AdvReac Type Severity Reaction Status Date / Time Cephalosporins Allergy Severe Anaphylaxis Verified 07/15/21 20:45 diphenhydramine HCl Allergy Severe Anaphylaxis Verified 07/15/21 20:45 [From Benadryl] divalproex sodium Allergy Severe Anaphylaxis Verified 07/15/21 20:45 [From Depakote] ceftriaxone [From Rocephin] Allergy Anaphylaxis Verified 07/15/21 20:45 cephalexin [From Keflex] Allergy Anaphylaxis Verified 07/15/21 20:45 droperidol Allergy Anaphylaxis Verified 07/15/21 20:45 lisinopril Allergy Anaphylaxis Verified 07/15/21 20:45 Physical Exam Vitals: Vital Signs Temp Pulse Resp BP Pulse Ox 07/16/21 01:20 84 15 137/87 97 07/15/21 20:12 98.4 F 99 18 172/102 98 Intake and Output 07/15/21 07/15/21 07/16/21 14:59 22:59 06:59 Other: Weight 118.841 kg Results CBC & Chem 7: 07/16/21 02:45 07/16/21 02:45 Labs: Abnormal Lab Results - Last 24 Hours (Table) 07/15/21 07/15/21 07/16/21 Range/Units 21:22 23:52 02:45 Carbon Dioxide 20 L (22-30) mmol/L Glucose 206 H (74-99) mg/dL Plasma Lactic Acid [place] 4.8 H* (0.7-2.0) mmol/L Calcium 8.0 L (8.4-10.2) mg/dL AST 176 H (17-59) U/L ALT 114 H (4-49) U/L Urine Opiates Screen (NotDetected) U Benzodiazepines Scrn (NotDetected) U Marijuana (THC) Screen (NotDetected) Serum Alcohol 354 H* mg/dL 07/16/21 07/16/21 07/16/21 Range/Units 02:45 04:49 05:53 Carbon Dioxide (22-30) mmol/L Glucose (74-99) mg/dL Plasma Lactic Acid [place] 4.7 H* 4.2 H* (0.7-2.0) mmol/L Calcium (8.4-10.2) mg/dL AST (17-59) U/L ALT (4-49) U/L Urine Opiates Screen Detected H (NotDetected) U Benzodiazepines Scrn Detected H (NotDetected) U Marijuana (THC) Screen Detected H (NotDetected) Serum Alcohol mg/dL Assessment and Plan Assessment: Severe alcohol abuse, with recurrent alcohol withdrawal most likely alcoholic gastritis headache, With negative CT of the head. Now resolved Dehydration substance abuse with marijuana Alcoholic gastritis Hypertension History of GERD Nicotine dependence Sleep apnea on CPAP/BiPAP History of GI bleed History of spinal stenosis with herniated disc status post surgery History of hemorrhoids Plan: This is a pleasant 45 years old male who presents with abuse and withdrawal. Continue with CIWA protocol, thiamine. Phenergan for nausea Resume normal salineinfusion at 1 30 mL/h Psychiatric consult Labs and medication were reviewed.. Continue same treatment. Continue with symptomatic treatment. Resume home medication. Monitor lytes and vitals. DVT and GI prophylaxis. Further recommendations as per clinical course of the patient DVT prophylaxis: Subcutaneous heparin GI Prophylaxis: Ppi
[2021-07-16] MEDS ORDERED: CHOLESTYRAMINE (WITH SUGAR) 4 GM PACKET PO PRN (10:00)
[2021-07-16] MEDS: PANTOPRAZOLE 40 MG TABLET PO SCH ×2 (11:18→20:08)
[2021-07-16] MEDS: NICOTINE 21MG/24HR PATCH TRANSDERM SCH (11:18)
[2021-07-16] MEDS: THIAMINE 100 MG TAB PO SCH ×2 (11:18→16:41)
[2021-07-16] MEDS: HEPARIN SODIUM,PORCINE/PF 5,000 UNIT/0.5 ML SYRINGE SQ SCH ×2 (11:18→20:07)
[2021-07-16] MEDS: FLUTICASONE 50MCG/SPRAY NASAL 16GM EA NOSTRIL SCH ×2 (11:19→20:39)
[2021-07-16] MEDS: SODIUM CHLORIDE 0.9% 1,000 ML IV SCH ×3 (11:19→20:39)
[2021-07-16] MEDS: GABAPENTIN 300 MG CAP PO SCH ×3 (11:20→20:07)
--- NOTE | 2021-07-16 14:28 | P.CN ---
Psychiatric Consult - . Consult date: 07/16/21 Consult:: 07/16/21 14:28 IDENTIFYING DATA: This patient is a single, unemployed, 46-year-old male who was admitted for recurrent vomiting in the context of heavy alcohol use HISTORY OF PRESENT ILLNESS: The patient presented to the hospital on 07/16/2021, with a chief complaint of recurrent vomiting in the context of heavy alcohol use. Psychiatry has been consulted for evaluation of depression as the patient endorsed numerous acute life stressors including losing his job as well as a significant other. Serum alcohol yesterday night was noted to be 354. UDS is positive for opiates, benzodiazepines, and marijuana. Upon evaluation the emergency department, the patient reports that he has been feeling "blank and empty." He reports that this has been ongoing for the past few months. He reports that he was seeing someone who is trying to recover from alcohol use however relapsed a few months ago and due to an overdose. 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 He reports that all of these happenings has been causing him significant distress. However, the patient is not endorsing any suicidal or homicidal ideation, intention, and/or plan. 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 In regards to other symptoms of depression, the patient does report low mood and hopelessness however is desiring to go back to rehabilitation so that he can quit alcohol. He appears to be future oriented at this time. The patient is not endorsing any auditory or visual hallucinations. He reports that he occasionally has some visual disturbances secondary to alcohol withdrawal. PAST PSYCHIATRIC HISTORY: Patient has a history of pressure and alcohol use disorder. The patient has had numerous admissions to this hospital for alcohol withdrawals and alcohol related issues. The patient's current home medication regimen includes trazodone and Xanax. He also receives Neurontin. The patient reports that he was admitted onto 3 6 years ago. Patient denies any psychiatric outpatient follow-up. Patient denies any history of suicide attempts in the past. PAST MEDICAL HISTORY: Past Medical History: GERD/Reflux, GI Bleed, Hypertension, Osteoarthritis (OA), Pneumonia, Seizure Disorder, Sleep Apnea/CPAP/BIPAP Additional Past Medical History / Comment(s): Occasional bilateral pedal edema if stands long, arthritis possibly in back/ribs, MILIND without device, ETOH abuse, alcoholic seizures/blackouts/fainting 2017, alcoholic hepatitis, alcoholic gastritis, upper GI bleed, hypomagnesemia, spinal stenosis/herniated disc with surgery, bilateral varicose veins, hemorrhoids History of Any Multi-Drug Resistant Organisms: None Reported Past Surgical History: Appendectomy, Back Surgery, Tonsillectomy Additional Past Surgical History / Comment(s): bilateral discectomy, discectomy L5-S1, EGD Past Anesthesia/Blood Transfusion Reactions: Motion Sickness Past Psychological History: Anxiety, Depression Smoking Status: Current every day smoker Past Alcohol Use History: Abuse, Daily, Heavy Past Drug Use History: None Reported ALLERGIES: Cephalosporins, diphenhydramine, Depakote, Rocephin, Keflex, lisinopril CHEMICAL DEPENDENCY HISTORY: The patient smokes tobacco intermittently. He has binging up to half gallon of vodka per day. He reports his last drink was just prior to him presenting at the hospital. He does report marijuana use. He reports no illicit drug use. The patient reports that he has been to inpatient rehabilitation 6 times in the past. He reports the longest he has been sober was for 14 months ago for years ago. FAMILY PSYCHIATRIC/SUBSTANCE USE HISTORY: The patient reports that his father has been diagnosed with schizophrenia. He reports a paternal grandfather who was an alcoholic. SOCIAL HISTORY: Patient was born and raised in [place], [place]. He currently lives alone and is currently unemployed. He was in a relationship with a woman for 20 years before she by overdose. He was in a 12-step program however stopped on fourth step. MENTAL STATUS EXAM: General Appearance: Patient appears to be stated age is alert, pleasant, and cooperative. Patient appears to have fair hygiene and grooming wearing hospital gown with fair eye contact. Behavior: Patient is calmly lying in bed without any agitated behavior. Speech: Patient's speech is fluent and nonpressured. Mood/Affect: Patient reports their mood is "blah", affect is euthymic. Suicidality/Homicidality: Patient denies having any suicidal or homicidal ideation intent or plan. Perceptions: Patient denies any visual hallucinations and denies any auditory hallucinations Though content/process: There is no evidence of any delusional thought content and thought process is linear and goal-directed. Memory and concentration: AOX3, grossly intact for the purposes of this session. 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 Alcohol Use Disorder PLAN: -At this time patient DOES NOT meet criteria for inpatient psychiatric admission. Primary pathology his alcohol use disorder. The patient does have numerous risk factors however he has not had any prior attempts at suicide and is not endorsing any suicidal ideation at this time. He remains future oriented and is wishing to go to rehabilitation for his alcohol use disorder. -Continue your medical management and treatment for alcohol withdrawals -Would recommend the following medication changes/additions: Continue trazodone 100 mg by mouth at bedtime when necessary for insomnia No other medication recommendations will be made at this time. Patient displays elevated AST and ALT and therefore we will have to hold on the administration of naltrexone. -Recommend social work consult to provide the patient with the access number for alcohol rehabilitation. -Psychiatry will sign off at this point, please contact with any questions. 07/16/21 14:28
[2021-07-16] MEDS: ACETAMINOPHEN TAB 325 MG TAB PO PRN (21:30)
[2021-07-17] MEDS: DEXTROSE 5%-0.9% NACL 1,000 ML IV SCH ×2 (01:32→10:49)
[2021-07-17] MEDS: LORazepam 2 MG/ML INJ IV PRN ×4 (03:30→12:43)
[2021-07-17] MEDS: FLUTICASONE 50MCG/SPRAY NASAL 16GM EA NOSTRIL SCH (08:18)
[2021-07-17] MEDS: NICOTINE 21MG/24HR PATCH TRANSDERM SCH (08:20)
[2021-07-17] MEDS: THIAMINE 100 MG TAB PO SCH (08:21)
[2021-07-17] MEDS: PANTOPRAZOLE 40 MG TABLET PO SCH (08:21)
[2021-07-17] MEDS: HEPARIN SODIUM,PORCINE/PF 5,000 UNIT/0.5 ML SYRINGE SQ SCH (08:21)
[2021-07-17] MEDS: GABAPENTIN 300 MG CAP PO SCH (08:21)
[2021-07-17] MEDS: ACETAMINOPHEN TAB 325 MG TAB PO PRN ×2 (08:25→14:37)
[2021-07-17 12:56] VITALS: BMI 34.5
[2021-07-17 14:36] VITALS: BP 174/98; PULSE 97; RESP 16; TEMP 98.9
--- NOTE | 2021-07-17 23:25 | P.DS ---
Providers Date of admission: 07/16/21 00:00 Attending physician: Gabriel Santillan Consults: 07/16/21 08:34 Consult Physician Urgent Consulting Provider: Maldonado Craig Reason/Comments: depressin ,lost job and significant other Do you want consulting provider notified?: Yes Primary care physician: Veena Bynum Hospital Course: Final Diagnosis Severe alcohol abuse, with recurrent alcohol withdrawal headache, With negative CT of the head. Now resolved Dehydration substance abuse with marijuana Alcoholic gastritis Hypertension History of GERD Nicotine dependence Sleep apnea on CPAP/BiPAP History of GI bleed History of spinal stenosis with herniated disc status post surgery History of hemorrhoids Discharge Disposition Patient discharged home on librium taper and plans to admit to [facility] for alcohol withdrawal has already spoken to insurance for this. Additionally, recommend to follow up with GI. Hospital Course This is a 46 year old male who presents to the [facility] acutely intoxicated with a serum alcohol level of 354. Patient has a past medical history significant for chronic heavy alcohol abuse, reports drinking up to a half gallon of vodka a day currently, hypertension, seizure disorder. Patient has multiple ER admits for alcohol intoxication and withdrawal and presents with c/o nausea and vomiting as well as epigastric pain associated with alcohol ingestion. Patient alert and oriented x 4, brain CT completed in the EC is negative, and headache that he presented with has since resolved. Urine drug toxicology positive for opiates, benzodiazepines, marijuana. COVID PCR negative. Additonal labs; unremarkable blood count, lactic acid elevated at 4.8, resolved to 1.9, AST 176, ALT 114. Patient evaluated by psychiatry this admission with diagnosis of alcohol use disorder with associated depressive disorder. Patient does not meet requirements for IP psychiatric admission, due to elevated liver enzymes his naltrexone was discontinued and we did hold for discharge as well. He is given a script to have his lever enzymes checked in 2-3 days, needs to see his PCP and also to follow up with GI services for the elevated liver enzymes as well as the nausea and vomiting associated with ETOH use. Patient was recently successfully treated inpatient for acute alcohol withdrawal and was discharged on an oral librium taper, he has since began to binge drink again and came into the EC with same symptoms. 07/17/2021 Patient evaluated today resting in bed. He denies any chest pain, cough, shortness of breath. Currently there is no nausea or vomiting, he also denies di arrhea. Patient is receiving IV ativan for acute withdrawal symptoms. There are no visible tremors during conversation however when asking patient a focused ROS he began to have arm tremors. Lungs are clear, S1 S2 auscultate, normoactive bowel sounds, no abdominal pain with palpation, focal neurological exam is negative. Patient is recommended to discharge home on oral librium taper and he verbalizes a desire for outpatient alcohol withdrawal therapy and is working with his insurance to go to [facility] in [facility]. Recommend alcohol cessation and will continue all other home medications as well as nicotine patch. Patient is a high risk for readmission as he continues to binge drink despite multiple hospitalizations for acute withdrawal. Educated on the importance of cessation and risks for ongoing alcohol use. blood pressure 147/93, heart rate 80, afebrile, 98% on room air. Please see medication reconciliation for a list of current medications. Thank you for allowing us to participate in the care of this patient. Patient Condition at Discharge: Fair Plan - Discharge Summary Discharge Rx Participant: No New Discharge Prescriptions: New Nicotine 21Mg/24Hr Patch [Habitrol] 1 patch TRANSDERM DAILY #7 patch chlordiazePOXIDE HCl [Librium] See Taper PO TID 6 Days #12 capsule Continue Fluticasone Nasal [place] [Flonase Nasal [place]] 2 spr EA NOSTRIL BID traZODone HCL [Desyrel] 100 mg PO HS PRN PRN Reason: Insomnia ALPRAZolam [Xanax] 1 mg PO BID PRN #10 tab PRN Reason: Anxiety Gabapentin [Neurontin] 600 mg PO TID Celecoxib [CeleBREX] 200 mg PO DAILY Albuterol Sulfate [Proair Hfa] 1 - 2 puff INHALATION RT-QID PRN PRN Reason: Shortness Of Breath Cholestyramine (with Sugar) [Questran Packet] 4 gm PO BID@1000,1800 PRN #30 packet PRN Reason: Diarrhea Loperamide [Imodium] 2 mg PO QID PRN #20 cap PRN Reason: Diarrhea Acetaminophen Tab [Tylenol] 650 mg PO Q6HR PRN tab PRN Reason: Fever And/ Or Pain Thiamine [Vitamin B-1] 100 mg PO BID-W/MEALS 30 Days #60 tab Pantoprazole Sodium [Protonix] 40 mg PO BID 30 Days #60 tab Discontinued Naltrexone HCl [Revia] 50 mg PO DAILY chlordiazePOXIDE HCl [Librium] See Taper PO DIRECTED Discharge Medication List Fluticasone Nasal [place] [Flonase Nasal [place]] 2 spr EA NOSTRIL BID 10/11/19 [History] traZODone HCL [Desyrel] 100 mg PO HS PRN 05/14/20 [History] ALPRAZolam [Xanax] 1 mg PO BID PRN #10 tab 02/25/21 [Rx] Albuterol Sulfate [Proair Hfa] 1 - 2 puff INHALATION RT-QID PRN 07/06/21 [History] Celecoxib [CeleBREX] 200 mg PO DAILY 07/06/21 [History] Gabapentin [Neurontin] 600 mg PO TID 07/06/21 [History] Acetaminophen Tab [Tylenol] 650 mg PO Q6HR PRN tab 07/10/21 [Rx] Cholestyramine (with Sugar) [Questran Packet] 4 gm PO BID@1000,1800 PRN #30 packet 07/10/21 [Rx] Loperamide [Imodium] 2 mg PO QID PRN #20 cap 07/10/21 [Rx] Pantoprazole Sodium [Protonix] 40 mg PO BID 30 Days #60 tab 07/10/21 [Rx] Thiamine [Vitamin B-1] 100 mg PO BID-W/MEALS 30 Days #60 tab 07/10/21 [Rx] Nicotine 21Mg/24Hr Patch [Habitrol] 1 patch TRANSDERM DAILY #7 patch 07/17/21 [Rx] chlordiazePOXIDE HCl [Librium] See Taper PO TID 6 Days #12 capsule 07/17/21 [Rx] Follow up Appointment(s)/Referral(s): Veena Bynum DO [Primary Care Provider] - 1-2 days (office closed at this time patient to call and schedule appointment after D/C) Ambulatory/Diagnostic Orders: Comprehensive Metabolic Panel [LAB.AMB] Time Frame: 2 Days, Location: None Selected Patient Instructions/Handouts: Alcohol Intoxication (DC) Activity/Diet/Wound Care/Special Instructions: Patient with plan to go to [facility] for inpatient alcohol withdrawal treatment after discharge Discharge Disposition: HOME SELF-CARE
== END 2021-07-17 17:07 | disposition home or self-care (01) | DRG 897 ==
LOC: EC 20:09 → 4SSUR 07-16 → 3SCARD 07-16 → 4SSUR 07-16 05:14
PROVIDERS: ADMIT Internal Medicine; ATTEND Internal Medicine
PROC: HZ2ZZZZ Detoxification Services for Substance Abuse Treatment (ICD-10-PCS; principal; 2021-07-16)
DX: F10.229 Alcohol dependence with intoxication, unspecified (principal); E87.2 Acidosis; F10.239 Alcohol dependence with withdrawal, unspecified; I10 Essential (primary) hypertension; K29.20 Alcoholic gastritis without bleeding; G40.909 Epilepsy, unspecified, not intractable, without status epilepticus; G47.33 Obstructive sleep apnea (adult) (pediatric); K70.10 Alcoholic hepatitis without ascites; R11.2 Nausea with vomiting, unspecified; Z20.822 Contact with and (suspected) exposure to COVID-19; F17.210 Nicotine dependence, cigarettes, uncomplicated; F32.A Depression, unspecified; M19.90 Unspecified osteoarthritis, unspecified site; I83.93 Asymptomatic varicose veins of bilateral lower extremities; E83.42 Hypomagnesemia; F41.9 Anxiety disorder, unspecified; M48.00 Spinal stenosis, site unspecified; Y90.8 Blood alcohol level of 240 mg/100 ml or more; Z79.1 Long term (current) use of non-steroidal anti-inflammatories (NSAID); Z79.899 Other long term (current) drug therapy; Z80.8 Family history of malignant neoplasm of other organs or systems; Z82.0 Family history of epilepsy and other diseases of the nervous system; Z82.49 Family history of ischemic heart disease and other diseases of the circulatory system; Z88.1 Allergy status to other antibiotic agents; Z88.8 Allergy status to other drugs, medicaments and biological substances; Z87.01 Personal history of pneumonia (recurrent); Z71.6 Tobacco abuse counseling
CPT/HCPCS: 36415; 70450; 71045; 80048; 80053; 80306; 80320; 81003; 82150; 83605; 83690; 85025; 87635; 93005; 96361; 96374; 96375; 99285

== ENCOUNTER 2021-07-22 01:14 | Observation (INO) | payer OTHER ==
--- NOTE | 2021-07-22 02:21 | CT ---
EXAMINATION TYPE: CT brain wo con DATE OF EXAM: 07/22/2021 COMPARISON: 07/15/2021 HISTORY: fall CT DLP: 1087.4 mGycm Automated exposure control for dose reduction was used. Images obtained of the brain without contrast. FINDINGS: There is cerebral cortical atrophy. There is no mass effect nor midline shift. There is no sign of in tracranial hemorrhage. Calvarium is intact. There is normal aeration of the mastoid sinuses. IMPRESSION: Mild atrophy. No acute intracranial abnormality. No change compared to the old exam.
[2021-07-22 02:54] LABS: Basophils # (A) 0.1 k/uL (0-0.2); Basophils % (A) 1 %; Eosinophils # (A) 0.1 k/uL (0-0.7); Eosinophils % (A) 1 %; HCT 41.8 % (39.0-53.0); HGB 13.9 gm/dL (13.0-17.5); Lymphocytes # (A) 2.5 k/uL (1.0-4.8); Lymphocytes % (A) 32 %; MCH 30.8 pg (25.0-35.0); MCHC 33.2 g/dL (31.0-37.0); MCV 92.6 fL (80.0-100.0); Mean Platelet Volume 7.7; Monocytes # (A) 0.4 k/uL (0-1.0); Monocytes % (A) 5 %; Neutrophils # (A) 4.5 k/uL (1.3-7.7); Neutrophils % (A) 59 %; Platelet Count 172 k/uL (150-450); RBC 4.52 m/uL (4.30-5.90); RDW 13.1 % (11.5-15.5); WBC 7.6 k/uL (3.8-10.6)
--- NOTE | 2021-07-22 03:07 | ED ---
Fall HPI - General Chief Complaint: Fall Stated Complaint: ETOH, Fall Time Seen by Provider: 07/22/21 01:17 Source: EMS Mode of arrival: EMS - History of Present Illness Initial Comments: Nick is a 46 yo alcoholic who presents via ambulance for alcohol intoxication, fall and possibly hematemesis. Patient has been drinking today, he must have fallen because he is bleeding from his forehead and nose. Thinks he may be vomiting blood as well, unsure if it is because he has swallowed blood from his nose. - Related Data Home Medications Medication Instructions Recorded Confirmed Fluticasone Nasal [place] [Flonase 2 spr EA NOSTRIL BID 10/11/19 07/15/21 Nasal [place]] traZODone HCL [Desyrel] 100 mg PO HS PRN 05/14/20 07/15/21 Albuterol Sulfate [Proair Hfa] 1 - 2 puff INHALATION RT-QID PRN 07/06/21 07/15/21 Celecoxib [CeleBREX] 200 mg PO DAILY 07/06/21 07/15/21 Gabapentin [Neurontin] 600 mg PO TID 07/06/21 07/15/21 Previous Rx's Medication Instructions Recorded ALPRAZolam [Xanax] 1 mg PO BID PRN #10 tab 02/25/21 Acetaminophen Tab [Tylenol] 650 mg PO Q6HR PRN tab 07/10/21 Cholestyramine (with Sugar) 4 gm PO BID@1000,1800 PRN #30 07/10/21 [Questran Packet] packet Loperamide [Imodium] 2 mg PO QID PRN #20 cap 07/10/21 Pantoprazole Sodium [Protonix] 40 mg PO BID 30 Days #60 tab 07/10/21 Thiamine [Vitamin B-1] 100 mg PO BID-W/MEALS 30 Days #60 07/10/21 tab Nicotine 21Mg/24Hr Patch [Habitrol] 1 patch TRANSDERM DAILY #7 patch 07/17/21 chlordiazePOXIDE HCl [Librium] See Taper PO TID 6 Days #12 capsule 07/17/21 Allergies Allergy/AdvReac Type Severity Reaction Status Date / Time Cephalosporins Allergy Severe Anaphylaxis Verified 07/15/21 20:45 diphenhydramine HCl Allergy Severe Anaphylaxis Verified 07/15/21 20:45 [From Benadryl] divalproex sodium Allergy Severe Anaphylaxis Verified 07/15/21 20:45 [From Depakote] ceftriaxone [From Rocephin] Allergy Anaphylaxis Verified 07/15/21 20:45 cephalexin [From Keflex] Allergy Anaphylaxis Verified 07/15/21 20:45 droperidol Allergy Anaphylaxis Verified 07/15/21 20:45 lisinopril Allergy Anaphylaxis Verified 07/15/21 20:45 Review of Systems ROS Statement: Those systems with pertinent positive or pertinent negative responses have been documented in the HPI. ROS Other: All systems not noted in ROS Statement are negative. Past Medical History Past Medical History: GERD/Reflux, GI Bleed, Hypertension, Osteoarthritis (OA), Pneumonia, Seizure Disorder, Sleep Apnea/CPAP/BIPAP Additional Past Medical History / Comment(s): Pt recently admitted to [facility] on 07/06/21 with alcohol intoxication/withdrawal. Other hx: Occasional maco ateral pedal edema if stands long, arthritis possibly in back/ribs, MILIND without device, ETOH abuse, alcoholic seizures/blackouts/fainting 2017, alcoholic hepatitis, alcoholic gastritis, upper GI bleed, hypomagnesemia, spinal stenosis/herniated disc with surgery, bilateral varicose veins, hemorrhoids History of Any Multi-Drug Resistant Organisms: None Reported Past Surgical History: Appendectomy, Back Surgery, Tonsillectomy Additional Past Surgical History / Comment(s): bilateral discectomy, discectomy L5-S1, EGD Past Anesthesia/Blood Transfusion Reactions: Motion Sickness Past Psychological History: Anxiety, Depression Smoking Status: Current every day smoker Past Alcohol Use History: None Reported Past Drug Use History: None Reported - Past Family History Father Family Medical History: Cancer, Dementia, Neurologic Disorder Additional Family Medical History / Comment(s): melanoma, parkinsons, schzophrenic Mother Family Medical History: Hypertension, Musculoskeletal Disorder, Neurologic Disorder, Osteoarthritis (OA) Additional Family Medical History / Comment(s): Mother of motor neuron disease at the age of 78yrs. Course Vital Signs 07/22/21 01:25 Temperature 98 F Pulse Rate 71 Respiratory 19 Rate Blood Pressure 149/95 O2 Sat by Pulse 98 Oximetry Medical Decision Making - Medical Decision Making Was seen and evaluated history is obtained from patient, EMS and review of medical record Patient is a 46-year-old alcoholic presenting with laceration to forehead and bloody nose and reports he vomited blood Patient hemodynamically stable imaging and labs were obtained, imaging has no acute traumatic injuries, labs are baseline L [place] 341, patient will be admitted to observation for alcohol intoxication with withdrawal precautions ordered. - Lab Data Result diagrams: 07/22/21 02:40 07/22/21 02:40 Lab Results 07/22/21 07/22/21 07/22/21 Range/Units 02:40 02:40 02:40 WBC 7.6 (3.8-10.6) k/uL RBC 4.52 (4.30-5.90) m/uL Hgb 13.9 (13.0-17.5) gm/dL Hct 41.8 (39.0-53.0) % MCV 92.6 (80.0-100.0) fL MCH 30.8 (25.0-35.0) pg MCHC 33.2 (31.0-37.0) g/dL RDW 13.1 (11.5-15.5) % Plt Count 172 (150-450) k/uL MPV 7.7 Neutrophils % 59 % Lymphocytes % 32 % Monocytes % 5 % Eosinophils % 1 % Basophils % 1 % Neutrophils # 4.5 (1.3-7.7) k/uL Lymphocytes # 2.5 (1.0-4.8) k/uL Monocytes # 0.4 (0-1.0) k/uL Eosinophils # 0.1 (0-0.7) k/uL Basophils # 0.1 (0-0.2) k/uL PT 9.7 (9.0-12.0) sec INR 0.9 (<1.2) APTT 23.2 (22.0-30.0) sec Sodium 134 L (137-145) mmol/L Potassium 4.5 (3.5-5.1) mmol/L Chloride 92 L (98-107) mmol/L Carbon Dioxide 25 (22-30) mmol/L Anion Gap 17 mmol/L BUN 15 (9-20) mg/dL Creatinine 0.80 (0.66-1.25) mg/dL Est GFR (CKD-EPI)AfAm >90 (>60 ml/min/1.73 sqM) Est GFR (CKD-EPI)NonAf >90 (>60 ml/min/1.73 sqM) Glucose 75 (74-99) mg/dL Calcium 8.8 (8.4-10.2) mg/dL Total Bilirubin 2.0 H (0.2-1.3) mg/dL AST 178 H (17-59) U/L ALT 101 H (4-49) U/L Alkaline Phosphatase 57 (38-126) U/L Total Protein 7.6 (6.3-8.2) g/dL Albumin 4.8 (3.5-5.0) g/dL Serum Alcohol 341 H* mg/dL Disposition Clinical Impression: Alcohol intoxication, Fall, Alcohol abuse Disposition: ADMITTED IP TO THIS HOSP Referrals: Veena Bynum DO [Primary Care Provider] - 1-2 days
[2021-07-22 03:12] LABS: ALT 101 U/L (4-49); AST 178 U/L (17-59); African American GFR (CKD) >90 (>60 ml/min/1.73 sqM); Albumin 4.8 g/dL (3.5-5.0); Alkaline Phosphatase 57 U/L (38-126); Anion Gap 17 mmol/L; Blood Urea Nitrogen 15 mg/dL (9-20); Calcium 8.8 mg/dL (8.4-10.2); Carbon Dioxide 25 mmol/L (22-30); Chloride 92 mmol/L (98-107); Glucose 75 mg/dL (74-99); Non-African American GFR(CKD) >90 (>60 ml/min/1.73 sqM); Potassium 4.5 mmol/L (3.5-5.1); Sodium 134 mmol/L (137-145); Total Protein 7.6 g/dL (6.3-8.2)
[2021-07-22 03:20] LABS: INR 0.9 (<1.2); Partial Thromboplastin Time 23.2 sec (22.0-30.0); Prothrombin Time 9.7 sec (9.0-12.0)
[2021-07-22 03:29] LABS: Alcohol 341 mg/dL
[2021-07-22] MEDS ORDERED: NALOXONE 0.4 MG/ML 1 ML VIAL IV PRN (03:39)
[2021-07-22] MEDS ORDERED: LORazepam 2 MG/ML INJ IV PRN ×2 (03:39)
[2021-07-22] MEDS: SODIUM CHLORIDE 0.9% 1,000 ML IV SCH ×2 (04:33→11:33)
[2021-07-22] MEDS: LORazepam 2 MG/ML INJ IV PRN ×2 (07:50→11:58)
[2021-07-22] MEDS ORDERED: CHOLESTYRAMINE (WITH SUGAR) 4 GM PACKET PO PRN (10:00)
--- NOTE | 2021-07-22 10:42 | P.HPIM ---
History of Present Illness This is a pleasant 43 years old male with past medical history of hypertension, GERD, GI bleed, pneumonia, seizure disorder, sleep apnea on CPAP/BiPAP, alcohol abuse, alcoholic seizure, alcoholic hepatitis, alcoholic gastritis, upper GI bleed, spinal stenosis with herniated disc status post surgery, hemorrhoids. Presents Patient this is the third admission to the hospital for alcohol abuse and few weeks. He was still drinking yesterday and he fell and hit his head last when he came to the hospital. This morning his fully awake and oriented to time, place and person, he denies headache or weakness or numbness. He denies any change in urine or bowel habits or vomiting or abdominal pain or diarrhea. No urgency. No dizziness. No weakness or numbness in his extremities. No fever. He smokes cigarettes. Uses marijuana. And he drinks about 1 Pint to 1 fifth of liquor every day it Vitas looks stable. Labs including CBC, INR, BMP are unremarkable. AST 178, ALT 101, total bilirubin is 2.0 Serum alcohol: Elevated 341. Coronavirus not detected CT of the brain showing mild atrophy with no acute intracranial abnormality Review of Systems CONSTITUTIONAL: No fever, no malaise, no fatigue. HEENT: No recent visual problems or hearing problems. Denied any sore throat. CARDIOVASCULAR: No orthopnea, PND, no palpitations, no syncope. PULMONARY: No shortness of breath, no cough, no hemoptysis. GASTROINTESTINAL: No diarrhea, no nausea, no vomiting, no abdominal pain. Normoactive bowel sounds. NEUROLOGICAL: No headaches, no weakness, no numbness. HEMATOLOGICAL: Denies any bleeding or petechiae. GENITOURINARY: Denies any burning micturition, frequency, or urgency. MUSCULOSKELETAL/RHEUMATOLOGICAL: Denies any joint pain, swelling, or any muscle pain. ENDOCRINE: Denies any polyuria or polydipsia. Past Medical History Past Medical History: GERD/Reflux, GI Bleed, Hypertension, Osteoarthritis (OA), Pneumonia, Seizure Disorder, Sleep Apnea/CPAP/BIPAP Additional Past Medical History / Comment(s): Pt recently admitted to [facility] on 07/06/21 with alcohol intoxication/withdrawal. Other hx: Occasional bilateral pedal edema if stands long, arthritis possibly in back/ribs, MILIND without device, ETOH abuse, alcoholic seizures/blackouts/fainting 2017, alcoholic hepatitis, alcoholic gastritis, upper GI bleed, hypomagnesemia, spinal stenosis/herniated disc with surgery, bilateral varicose veins, hemorrhoids History of Any Multi-Drug Resistant Organisms: None Reported Past Surgical History: Appendectomy, Back Surgery, Tonsillectomy Additional Past Surgical History / Comment(s): bilateral discectomy, discectomy L5-S1, EGD Past Anesthesia/Blood Transfusion Reactions: Motion Sickness Past Psychological History: Anxiety, Depression Additional Psychological History / Comment(s): Pt lives alone no pets. Pt uses no assistive device. He drives. Smoking Status: Current every day smoker Past Alcohol Use History: None Reported Additional Past Alcohol Use History / Comment(s): He has been in rehab in the past for ETOH abuse. Pt states he started on and off smoking as a young adult and has more often been a nonsmoker. Pt states he drinks 1/2 gallon vodka since discharged on 11/21/20 Past Drug Use History: Marijuana Additional Drug Use History / Comment(s): Pt smoked marijuana on occasion in the past. - Past Family History Father Family Medical History: Cancer, Dementia, Neurologic Disorder Additional Family Medical History / Comment(s): melanoma, parkinsons, schzophrenic Mother Family Medical History: Hypertension, Musculoskeletal Disorder, Neurologic Disorder, Osteoarthritis (OA) Additional Family Medical History / Comment(s): Mother of motor neuron disease at the age of 78yrs. Medications and Allergies Home Medications Medication Instructions Recorded Confirmed Type Fluticasone Nasal [place] [Flonase 2 spr EA NOSTRIL BID 10/11/19 07/22/21 History Nasal [place]] traZODone HCL [Desyrel] 100 mg PO HS PRN 05/14/20 07/22/21 History ALPRAZolam [Xanax] 1 mg PO BID PRN #10 tab 02/25/21 07/22/21 Rx Albuterol Sulfate [Proair Hfa] 1 - 2 puff INHALATION RT-QID PRN 07/06/21 07/22/21 History Celecoxib [CeleBREX] 200 mg PO DAILY 07/06/21 07/22/21 History Gabapentin [Neurontin] 600 mg PO TID 07/06/21 07/22/21 History Acetaminophen Tab [Tylenol] 650 mg PO Q6HR PRN tab 07/10/21 07/22/21 Rx Cholestyramine (with Sugar) 4 gm PO BID@1000,1800 PRN #30 07/10/21 07/22/21 Rx [Questran Packet] packet Loperamide [Imodium] 2 mg PO QID PRN #20 cap 07/10/21 07/22/21 Rx Pantoprazole Sodium [Protonix] 40 mg PO BID 30 Days #60 tab 07/10/21 07/22/21 Rx Thiamine [Vitamin B-1] 100 mg PO BID-W/MEALS 30 Days #60 07/10/21 07/22/21 Rx tab Nicotine 21Mg/24Hr Patch [Habitrol] 1 patch TRANSDERM DAILY #7 patch 07/17/21 07/22/21 Rx chlordiazePOXIDE HCl [Librium] See Taper PO TID 6 Days #12 capsule 07/17/21 07/22/21 Rx Allergies Allergy/AdvReac Type Severity Reaction Status Date / Time Cephalosporins Allergy Severe Anaphylaxis Verified 07/22/21 09:43 diphenhydramine HCl Allergy Severe Anaphylaxis Verified 07/22/21 09:43 [From Benadryl] divalproex sodium Allergy Severe Anaphylaxis Verified 07/22/21 09:43 [From Depakote] ceftriaxone [From Rocephin] Allergy Anaphylaxis Verified 07/22/21 09:43 cephalexin [From Keflex] Allergy Anaphylaxis Verified 07/22/21 09:43 droperidol Allergy Anaphylaxis Verified 07/22/21 09:43 lisinopril Allergy Anaphylaxis Verified 07/22/21 09:43 Physical Exam Vitals: Vital Signs Temp Pulse Pulse Resp BP BP Pulse Ox 07/22/21 07:22 97.7 F 82 16 141/78 97 07/22/21 05:35 18 07/22/21 05:20 75 18 149/90 99 07/22/21 04:51 84 18 140/84 96 07/22/21 01:25 98 F 71 19 149/95 98 Intake and Output 07/21/21 07/22/21 07/22/21 22:59 06:59 14:59 Output Total 1850 Balance -1850 Output: Urine 925 Post Void Residual 925 Other: # Voids 1 Weight 113.398 kg GENERAL: The patient is alert and oriented x3, not in any acute distress. Well developed, well nourished. HEENT: Pupils are round and equally reacting to light. EOMI. No scleral icterus. No conjunctival pallor. Normocephalic, atraumatic. No pharyngeal erythema. No thyromegaly. CARDIOVASCULAR: S1 and S2 present. No murmurs, rubs, or gallops. PULMONARY: Chest is clear to auscultation, no wheezing or crackles. ABDOMEN: Soft, nontender, nondistended, normoactive bowel sounds. No palpable organomegaly. MUSCULOSKELETAL: No joint swelling or deformity. EXTREMITIES: No cyanosis, clubbing, or pedal edema. NEUROLOGICAL: Gross neurological examination did not reveal any focal deficits. SKIN: No rashes. No petechiae Results CBC & Chem 7: 07/22/21 02:40 07/22/21 02:40 Labs: Abnormal Lab Results - Last 24 Hours (Table) 07/22/21 Range/Units 02:40 Sodium 134 L (137-145) mmol/L Chloride 92 L (98-107) mmol/L Total Bilirubin 2.0 H (0.2-1.3) mg/dL AST 178 H (17-59) U/L ALT 101 H (4-49) U/L Serum Alcohol 341 H* mg/dL Thrombosis Risk Factor Assmnt - Choose All That Apply Any of the Below Risk Factors Present?: Yes Each Factor Represents 1 point: Age 41-60 years, Obesity (BMI >25) Other Risk Factors: No Other congenital or acquired thrombophilia - If yes, enter type in comment: No Thrombosis Risk Factor Assessment Total Risk Factor Score: 2 Thrombosis Risk Factor Assessment Level: Low Risk Assessment and Plan Assessment: Severe alcohol abuse, with recurrent alcohol withdrawal fall secondary to alcohol abuse, With negative CT of the head. Now resolved alcoholic hepatitis, asymptomatic Dehydration substance abuse with marijuana Alcoholic gastritis Hypertension History of GERD Nicotine dependence Sleep apnea on CPAP/BiPAP History of GI bleed History of spinal stenosis with herniated disc status post surgery History of hemorrhoids Plan: This is a pleasant 45 years old male who presents with abuse and withdrawal. Continue with CIWA protocol, thiamine. Phenergan for nausea Continue with gentle hydration Neuro check X 24 hours Labs and medication were reviewed.. Continue same treatment. Continue with symptomatic treatment. Resume home medication. Monitor lytes and vitals. DVT and GI prophylaxis. Further recommendations as per clinical course of the patient DVT prophylaxis: Subcutaneous heparin GI Prophylaxis: Ppi Prognosis is guarded I discussed with the patient the long-term plan, he wants to go to detox at [facility]. Consult complex case manager
[2021-07-22] MEDS ORDERED: LORazepam 1 MG TAB PO PRN (15:02)
[2021-07-22] MEDS: PANTOPRAZOLE 40 MG TABLET PO SCH (15:10)
[2021-07-22] MEDS: THIAMINE 100 MG TAB PO SCH (15:10)
[2021-07-22] MEDS: GABAPENTIN 300 MG CAP PO SCH ×2 (15:10→21:19)
[2021-07-22] MEDS: LORazepam 1 MG TAB PO PRN ×3 (15:10→22:59)
[2021-07-22] MEDS: ACETAMINOPHEN TAB 325 MG TAB PO PRN (19:03)
[2021-07-22] MEDS: HEPARIN SODIUM,PORCINE/PF 5,000 UNIT/0.5 ML SYRINGE SQ SCH (21:19)
[2021-07-22] MEDS: FLUTICASONE 50MCG/SPRAY NASAL 16GM EA NOSTRIL SCH (22:59)
[2021-07-23] MEDS: SODIUM CHLORIDE 0.9% 1,000 ML IV SCH (01:54)
[2021-07-23 03:24] VITALS: RESP 17
[2021-07-23] MEDS: LORazepam 1 MG TAB PO PRN (07:07)
[2021-07-23] MEDS: ACETAMINOPHEN TAB 325 MG TAB PO PRN (07:07)
[2021-07-23] MEDS: GABAPENTIN 300 MG CAP PO SCH (07:07)
[2021-07-23] MEDS: PANTOPRAZOLE 40 MG TABLET PO SCH (07:07)
[2021-07-23] MEDS: FLUTICASONE 50MCG/SPRAY NASAL 16GM EA NOSTRIL SCH (07:07)
[2021-07-23] MEDS: THIAMINE 100 MG TAB PO SCH (07:07)
[2021-07-23 07:08] VITALS: BP 123/78; PULSE 72; TEMP 98.6
[2021-07-23] MEDS: HEPARIN SODIUM,PORCINE/PF 5,000 UNIT/0.5 ML SYRINGE SQ SCH (07:08)
--- NOTE | 2021-07-24 09:13 | P.DS ---
Providers Date of admission: 07/22/21 03:40 Expected date of discharge: 07/23/21 Attending physician: Alma Hansen MD Primary care physician: Veena Tabor Hospital Course: Final diagnosis Severe alcohol abuse, with recurrent alcohol withdrawal fall secondary to alcohol abuse, With negative CT of the head. Now resolved alcoholic hepatitis, asymptomatic Dehydration substance abuse with marijuana Alcoholic gastritis Hypertension History of GERD Nicotine dependence Sleep apnea on CPAP/BiPAP History of GI bleed History of spinal stenosis with herniated disc status post surgery History of hemorrhoids full code Discharge disposition Patient is being discharged in a stable condition with guarded prognosis to home. Patient will follow-up with Dr. Tabor in the outpatient setting upon discharge. Patient is to follow-up with [facility] about inpatient alcohol rehab. Total time taken is greater than 35 minutes. Hospital course This is a 46-year-old male who was recently admitted for alcohol intoxication and was being closely monitored. Patient was maintained on CIWA protocol. Patient also states he had a fall and struck his head and CT of the brain was done which was negative for any acute process. Patient was held and monitor closely overnight and maintained on CIWA protocol with no acute issues noted. Patient will be discharged today and instructed the patient to follow-up with primary care provider and also [facility] about inpatient alcohol rehab. Patient is high risk for multiple readmissions secondary to alcohol intoxication and lengthy discussion was had with the patient about refraining from any alcohol intake. Currently no reports of chest pain, shortness of breath, or palpitations. Patient is afebrile. No reports of nausea or vomiting and patient is tolerating diet. Patient will be discharged home today. Guarded prognosis secondary to multiple readmissions for alcohol intoxication. Physical Exam: GENERAL: The patient is alert and oriented x3, not in any acute distress. Well developed, well nourished. HEENT: Pupils are round and equally reacting to light. EOMI. No scleral icterus. No conjunctival pallor. Normocephalic, atraumatic. No pharyngeal erythema. No thyromegaly. CARDIOVASCULAR: S1 and S2 present. No murmurs, rubs, or gallops. PULMONARY: Chest is clear to auscultation, no wheezing or crackles. ABDOMEN: Soft, nontender, nondistended, normoactive bowel sounds. No palpable organomegaly. MUSCULOSKELETAL: No joint swelling or deformity. EXTREMITIES: No cyanosis, clubbing, or pedal edema. NEUROLOGICAL: Gross neurological examination did not reveal any focal deficits. SKIN: No rashes. No petechiae Please refer to medication reconciliation sheet for a list of medications. Patient Condition at Discharge: Fair Plan - Discharge Summary New Discharge Prescriptions: Continue Fluticasone Nasal [place] [Flonase Nasal [place]] 2 spr EA NOSTRIL BID traZODone HCL [Desyrel] 100 mg PO HS PRN PRN Reason: Insomnia ALPRAZolam [Xanax] 1 mg PO BID PRN #10 tab PRN Reason: Anxiety Gabapentin [Neurontin] 600 mg PO TID Celecoxib [CeleBREX] 200 mg PO DAILY Albuterol Sulfate [Proair Hfa] 1 - 2 puff INHALATION RT-QID PRN PRN Reason: Shortness Of Breath Cholestyramine (with Sugar) [Questran Packet] 4 gm PO BID@1000,1800 PRN #30 packet PRN Reason: Diarrhea Loperamide [Imodium] 2 mg PO QID PRN #20 cap PRN Reason: Diarrhea Acetaminophen Tab [Tylenol] 650 mg PO Q6HR PRN tab PRN Reason: Fever And/ Or Pain Thiamine [Vitamin B-1] 100 mg PO BID-W/MEALS 30 Days #60 tab Pantoprazole Sodium [Protonix] 40 mg PO BID 30 Days #60 tab Nicotine 21Mg/24Hr Patch [Habitrol] 1 patch TRANSDERM DAILY #7 patch chlordiazePOXIDE HCl [Librium] See Taper PO TID 6 Days #12 capsule Discharge Medication List Fluticasone Nasal [place] [Flonase Nasal [place]] 2 spr EA NOSTRIL BID 10/11/19 [History] traZODone HCL [Desyrel] 100 mg PO HS PRN 05/14/20 [History] ALPRAZolam [Xanax] 1 mg PO BID PRN #10 tab 02/25/21 [Rx] Albuterol Sulfate [Proair Hfa] 1 - 2 puff INHALATION RT-QID PRN 07/06/21 [History] Celecoxib [CeleBREX] 200 mg PO DAILY 07/06/21 [History] Gabapentin [Neurontin] 600 mg PO TID 07/06/21 [History] Acetaminophen Tab [Tylenol] 650 mg PO Q6HR PRN tab 07/10/21 [Rx] Cholestyramine (with Sugar) [Questran Packet] 4 gm PO BID@1000,1800 PRN #30 packet 07/10/21 [Rx] Loperamide [Imodium] 2 mg PO QID PRN #20 cap 07/10/21 [Rx] Pantoprazole Sodium [Protonix] 40 mg PO BID 30 Days #60 tab 07/10/21 [Rx] Thiamine [Vitamin B-1] 100 mg PO BID-W/MEALS 30 Days #60 tab 07/10/21 [Rx] Nicotine 21Mg/24Hr Patch [Habitrol] 1 patch TRANSDERM DAILY #7 patch 07/17/21 [Rx] chlordiazePOXIDE HCl [Librium] See Taper PO TID 6 Days #12 capsule 07/17/21 [Rx] Follow up Appointment(s)/Referral(s): Veena Tabor DO [Primary Care Provider] - 07/24/21 9:20 am (PLEASE TAKE D/C PACKAGE TO APPOITMENT ) Patient Instructions/Handouts: Alcohol Intoxication (DC), Fall Prevention (DC) Activity/Diet/Wound Care/Special Instructions: Activity Limited until follow-up Follow-up with primary care provider on discharge Follow-up with [facility] to discuss alcohol rehab Avoid alcohol intake Discharge Disposition: HOME SELF-CARE
== END 2021-07-23 14:10 | disposition home or self-care (01) ==
LOC: EC 01:14 → 4SSUR 03:40
PROVIDERS: ADMIT Internal Medicine; ATTEND Internal Medicine
DX: F10.239 Alcohol dependence with withdrawal, unspecified (principal); F10.229 Alcohol dependence with intoxication, unspecified; W19.XXXA Unspecified fall, initial encounter; K70.10 Alcoholic hepatitis without ascites; E86.0 Dehydration; F12.10 Cannabis abuse, uncomplicated; K29.20 Alcoholic gastritis without bleeding; K21.9 Gastro-esophageal reflux disease without esophagitis; G47.33 Obstructive sleep apnea (adult) (pediatric); Z87.19 Personal history of other diseases of the digestive system; M48.00 Spinal stenosis, site unspecified; K64.9 Unspecified hemorrhoids; F17.210 Nicotine dependence, cigarettes, uncomplicated; I10 Essential (primary) hypertension; M19.90 Unspecified osteoarthritis, unspecified site; I83.93 Asymptomatic varicose veins of bilateral lower extremities; F41.9 Anxiety disorder, unspecified; F32.A Depression, unspecified; K92.0 Hematemesis; R04.0 Epistaxis; S01.81XA Laceration without foreign body of other part of head, initial encounter; E66.9 Obesity, unspecified; Z68.33 Body mass index [BMI] 33.0-33.9, adult; G40.909 Epilepsy, unspecified, not intractable, without status epilepticus; Z20.822 Contact with and (suspected) exposure to COVID-19; Y90.8 Blood alcohol level of 240 mg/100 ml or more; Z87.01 Personal history of pneumonia (recurrent); Z71.41 Alcohol abuse counseling and surveillance of alcoholic; Z79.1 Long term (current) use of non-steroidal anti-inflammatories (NSAID); Z79.899 Other long term (current) drug therapy; Z88.1 Allergy status to other antibiotic agents; Z88.8 Allergy status to other drugs, medicaments and biological substances; Z90.49 Acquired absence of other specified parts of digestive tract; Z82.0 Family history of epilepsy and other diseases of the nervous system; Z80.8 Family history of malignant neoplasm of other organs or systems; Z81.8 Family history of other mental and behavioral disorders; Z82.49 Family history of ischemic heart disease and other diseases of the circulatory system; Z82.61 Family history of arthritis
CPT/HCPCS: 96376; 96372 ×2; 96374; 99285; 36415; 80053; 85025; 85610; 85730; 87635; 70450; G0378 ×2; G0480; J2060; J1644 ×2; 80320

== ENCOUNTER 2021-07-26 18:07 | Observation (INO) | payer OTHER ==
[2021-07-26] MEDS ORDERED: DIPH,PERTUS(ACELL)TETVAC-LF 0.5 ML VIAL IM ONE (18:30)
[2021-07-26 19:02] LABS: ALT 96 U/L (4-49); AST 210 U/L (17-59); African American GFR (CKD) >90 (>60 ml/min/1.73 sqM); Albumin 4.8 g/dL (3.5-5.0); Alkaline Phosphatase 73 U/L (38-126); Anion Gap 20 mmol/L; Blood Urea Nitrogen 10 mg/dL (9-20); Calcium 8.7 mg/dL (8.4-10.2); Carbon Dioxide 20 mmol/L (22-30); Chloride 102 mmol/L (98-107); Creatine Kinase 158 U/L (55-170); Glucose 77 mg/dL (74-99); Lipase 104 U/L (23-300); Magnesium 1.3 mg/dL (1.6-2.3); Non-African American GFR(CKD) >90 (>60 ml/min/1.73 sqM); Potassium 4.4 mmol/L (3.5-5.1); Sodium 142 mmol/L (137-145); Total Bilirubin 1.4 mg/dL (0.2-1.3); Total Protein 7.6 g/dL (6.3-8.2)
[2021-07-26 19:13] LABS: Alcohol 420 mg/dL
--- NOTE | 2021-07-26 19:14 | ED ---
Fall HPI - General Chief Complaint: Fall Stated Complaint: ETOH Time Seen by Provider: 07/26/21 18:10 Source: patient, EMS Mode of arrival: EMS - History of Present Illness Initial Comments: 38-year-old male history of alcoholism who was just discharged yesterday after being admitted for alcohol intoxication who presents by EMS tonight with complaints of falling through a small hole in his bedroom floor he has been drinking today complains of pain to his right knee he denies any head neck or back pain has had some chronic pain does complains of pain to his left knee from a previous injury. He's not sure when his last tetanus shot was. No loss of consciousness reported. MD Complaint: fall, other - Related Data Home Medications Medication Instructions Recorded Confirmed Fluticasone Nasal [place] [Flonase 2 spr EA NOSTRIL BID 10/11/19 07/26/21 Nasal [place]] traZODone HCL [Desyrel] 100 mg PO HS PRN 05/14/20 07/26/21 Albuterol Sulfate [Proair Hfa] 1 - 2 puff INHALATION RT-QID PRN 07/06/21 07/26/21 Celecoxib [CeleBREX] 200 mg PO DAILY PRN 07/06/21 07/26/21 Gabapentin [Neurontin] 600 mg PO TID 07/06/21 07/26/21 Previous Rx's Medication Instructions Recorded ALPRAZolam [Xanax] 1 mg PO BID PRN #10 tab 02/25/21 Acetaminophen Tab [Tylenol] 650 mg PO Q6HR PRN tab 07/10/21 Cholestyramine (with Sugar) 4 gm PO BID@1000,1800 PRN #30 07/10/21 [Questran Packet] packet Loperamide [Imodium] 2 mg PO QID PRN #20 cap 07/10/21 Pantoprazole Sodium [Protonix] 40 mg PO BID 30 Days #60 tab 07/10/21 Thiamine [Vitamin B-1] 100 mg PO BID-W/MEALS 30 Days #60 07/10/21 tab Nicotine 21Mg/24Hr Patch [Habitrol] 1 patch TRANSDERM DAILY #7 patch 07/17/21 Allergies Allergy/AdvReac Type Severity Reaction Status Date / Time Cephalosporins Allergy Severe Anaphylaxis Verified 07/26/21 19:21 diphenhydramine HCl Allergy Severe Anaphylaxis Verified 07/26/21 19:21 [From Benadryl] divalproex sodium Allergy Severe Anaphylaxis Verified 07/26/21 19:21 [From Depakote] ceftriaxone [From Rocephin] Allergy Anaphylaxis Verified 07/26/21 19:21 cephalexin [From Keflex] Allergy Anaphylaxis Verified 07/26/21 19:21 droperidol Allergy Anaphylaxis Verified 07/26/21 19:21 lisinopril Allergy Anaphylaxis Verified 07/26/21 19:21 Review of Systems ROS Statement: Those systems with pertinent positive or pertinent negative responses have been documented in the HPI. ROS Other: All systems not noted in ROS Statement are negative. Past Medical History Past Medical History: GERD/Reflux, GI Bleed, Hypertension, Osteoarthritis (OA), Pneumonia, Seizure Disorder, Sleep Apnea/CPAP/BIPAP Additional Past Medical History / Comment(s): Pt recently admitted to [facility] on 07/06/21 with alcohol intoxication/withdrawal. Other hx: Occasional bilateral pedal edema if stands long, arthritis possibly in back/ribs, MILIND without device, ETOH abuse, alcoholic seizures/blackouts/fainting 2017, alcoho lic hepatitis, alcoholic gastritis, upper GI bleed, hypomagnesemia, spinal stenosis/herniated disc with surgery, bilateral varicose veins, hemorrhoids History of Any Multi-Drug Resistant Organisms: None Reported Past Surgical History: Appendectomy, Back Surgery, Tonsillectomy Additional Past Surgical History / Comment(s): bilateral discectomy, discectomy L5-S1, EGD Past Anesthesia/Blood Transfusion Reactions: Motion Sickness Past Psychological History: Anxiety, Depression Smoking Status: Current every day smoker Past Alcohol Use History: None Reported Past Drug Use History: Marijuana - Past Family History Father Family Medical History: Cancer, Dementia, Neurologic Disorder Additional Family Medical History / Comment(s): melanoma, parkinsons, schzophrenic Mother Family Medical History: Hypertension, Musculoskeletal Disorder, Neurologic Disorder, Osteoarthritis (OA) Additional Family Medical History / Comment(s): Mother of motor neuron disease at the age of 78yrs. General Exam - General Exam Comments Initial Comments: This is a well-developed well-nourished awake alert though somewhat lethargic male Limitations: physical limitation General appearance: alert, lethargic Head exam: Present: atraumatic, normocephalic, normal inspection Eye exam: Present: normal appearance, PERRL, EOMI. Absent: scleral icterus, conjunctival injection, periorbital swelling ENT exam: Present: mucous membranes dry Neck exam: Present: normal inspection, full ROM, other (Stridor JVD or bruits). Absent: tenderness, meningismus, lymphadenopathy Respiratory exam: Present: normal lung sounds bilaterally. Absent: respiratory distress, wheezes, rales, rhonchi, stridor Cardiovascular Exam: Present: regular rate, normal rhythm, normal heart sounds. Absent: systolic murmur, diastolic murmur, rubs, gallop, clicks GI/Abdominal exam: Present: soft, normal bowel sounds. Absent: distended, tenderness, guarding, rebound, rigid, bruit, pulsatile mass Rectal exam: Present: deferred Extremities exam: Present: full ROM, normal capillary refill, other (Ecchymosis seen to both knees with tenderness palpation no obvious deformity step-off or crepitation more painful on the right than the left superficial fresh abrasion seen to the lateral aspect of the right thigh and also the distal third of the right leg no foreign body seen no suture repair indic). Absent: tenderness, pedal edema, joint swelling, calf tenderness Back exam: Present: normal inspection, full ROM. Absent: tenderness Neurological exam: Present: alert, oriented X3, CN II-XII intact Psychiatric exam: Present: normal affect, normal mood Skin exam: Present: warm, dry, intact, normal color. Absent: rash Course Vital Signs 07/26/21 18:17 Temperature 97.6 F Pulse Rate 83 Respiratory 18 Rate Blood Pressure 135/78 O2 Sat by Pulse 96 Oximetry - Reevaluation(s) Reevaluation #1: 07/26/21 20:32 Reevaluation patient finds he is awake alert but lethargic he does have a smell of alcohol conjoiners on his breath. Medical Decision Making - Medical Decision Making Patient does demonstrated a blood alcohol level of 420 with elevated lactic acid this is likely the basis of dehydration patient will be admitted I did discuss case with Dr. solorio. Imaging showed no acute findings - Lab Data Result diagrams: 07/26/21 18:43 Lab Results 07/26/21 07/26/21 07/26/21 Range/Units 18:43 18:43 18:43 Sodium 142 (137-145) mmol/L Potassium 4.4 (3.5-5.1) mmol/L Chloride 102 (98-107) mmol/L Carbon Dioxide 20 L (22-30) mmol/L Anion Gap 20 mmol/L BUN 10 (9-20) mg/dL Creatinine 0.76 (0.66-1.25) mg/dL Est GFR (CKD-EPI)AfAm >90 (>60 ml/min/1.73 sqM) Est GFR (CKD-EPI)NonAf >90 (>60 ml/min/1.73 sqM) Glucose 77 (74-99) mg/dL Plasma Lactic Acid Burak 4.2 H* (0.7-2.0) mmol/L Calcium 8.7 (8.4-10.2) mg/dL Magnesium 1.3 L (1.6-2.3) mg/dL Total Bilirubin 1.4 H (0.2-1.3) mg/dL AST 210 H (17-59) U/L ALT 96 H (4-49) U/L Alkaline Phosphatase 73 (38-126) U/L Creatine Kinase 158 (55-170) U/L Troponin I <0.012 (0.000-0.034) ng/mL Total Protein 7.6 (6.3-8.2) g/dL Albumin 4.8 (3.5-5.0) g/dL Lipase 104 (23-300) U/L Serum Alcohol 420 H* mg/dL - EKG Data -: EKG Interpreted by Me EKG shows normal: sinus rhythm EKG Comments: EKG shows sinus rhythm a 73 IA interval 175 QRS duration 122 daily since QTC 424/450 50) ventricular conduction delay - Radiology Data Radiology results: report reviewed (Imaging reviewed no acute findings), image reviewed Disposition Clinical Impression: Alcohol intoxication, Elevated lactic acid level, Dehydration, Abrasion, right lower leg, initial encounter Disposition: ADMITTED IP TO THIS [facility] Condition: Fair Referrals: Veena Bynum DO [Primary Care Provider] - 1-2 days
--- NOTE | 2021-07-26 19:31 | XR ---
EXAMINATION TYPE: XR chest 2V DATE OF EXAM: 07/26/2021 6:59 PM COMPARISON:Chest radiographs from 08/22/2021 TECHNIQUE: XR chest 2V Frontal and lateral views of the chest. CLINICAL INDICATION:Male, 46 years old with history of Fall; FINDINGS: Lungs/Pleura: There is no evidence of pleural effusion, focal consolidation, or pneumothorax. Pulmonary vascularity: Unremarkable. Heart/mediastinum: Cardiomediastinal silhouette is unremarkable. Musculoskeletal: No acute osseous pathology. IMPRESSION: No acute cardiopulmonary disease/process.
--- NOTE | 2021-07-26 19:35 | XR ---
EXAMINATION TYPE: XR knee complete bilateral DATE OF EXAM: 07/26/2021 7:00 PM INDICATION: Patient age:Male; 46 years old; Reason for study: Bilateral trauma; COMPARISON: None. TECHNIQUE: The right knee was examined in 3 projections. FINDINGS: No evidence of any acute osseous pathology, joint space narrowing, soft tissue swelling, or joint effusion is noted. Atherosclerotic ulcerations are seen throughout the vasculature most pron ounced on the right. Normal tibial plateau osteophyte formation and superior patellar pole osteophyte s are present. Remote left medial collateral ligament is suggested with calcification present. IMPRESSION: 1. No acute osseous pathology. 2. Mild tricompartmental osteoarthritic changes.
[2021-07-26] MEDS ORDERED: SODIUM CHLORIDE 0.9% 1,000 ML IV STA ×2 (20:31)
[2021-07-26] MEDS ORDERED: NALOXONE 0.4 MG/ML 1 ML VIAL IV PRN (20:38)
[2021-07-26] MEDS ORDERED: LOPERAMIDE 2 MG CAP PO PRN (20:40)
[2021-07-26] MEDS ORDERED: LORazepam 2 MG/ML INJ IV PRN ×2 (20:40)
[2021-07-26] MEDS ORDERED: THIAMINE 100 MG/ML 2 ML VIAL IM STA (20:40)
[2021-07-26] MEDS ORDERED: traZODone HCL 100 MG TAB PO PRN (20:40)
[2021-07-26] MEDS ORDERED: ALPRAZolam 1 MG TAB PO PRN (20:40)
[2021-07-26] MEDS ORDERED: ALBUTEROL NEBULIZED 2.5 MG/3 ML INHALATION PRN (20:40)
[2021-07-26] MEDS ORDERED: MAGNESIUM SULFATE-D5W PMX 1 GM in DEXTROSE/WATER 1 100ML.BAG IVPB ONE (21:07)
--- NOTE | 2021-07-26 21:08 | ED ---
Medical Decision Making - Lab Data Result diagrams: 07/26/21 18:43 Lab Results 07/26/21 07/26/21 07/26/21 Range/Units 18:43 18:43 18:43 Sodium 142 (137-145) mmol/L Potassium 4.4 (3.5-5.1) mmol/L Chloride 102 (98-107) mmol/L Carbon Dioxide 20 L (22-30) mmol/L Anion Gap 20 mmol/L BUN 10 (9-20) mg/dL Creatinine 0.76 (0.66-1.25) mg/dL Est GFR (CKD-EPI)AfAm >90 (>60 ml/min/1.73 sqM) Est GFR (CKD-EPI)NonAf >90 (>60 ml/min/1.73 sqM) Glucose 77 (74-99) mg/dL Plasma Lactic Acid [place]ak 4.2 H* (0.7-2.0) mmol/L Calcium 8.7 (8.4-10.2) mg/dL Magnesium 1.3 L (1.6-2.3) mg/dL Total Bilirubin 1.4 H (0.2-1.3) mg/dL AST 210 H (17-59) U/L ALT 96 H (4-49) U/L Alkaline Phosphatase 73 (38-126) U/L Creatine Kinase 158 (55-170) U/L Troponin I <0.012 (0.000-0.034) ng/mL Total Protein 7.6 (6.3-8.2) g/dL Albumin 4.8 (3.5-5.0) g/dL Lipase 104 (23-300) U/L Serum Alcohol 420 H* mg/dL Disposition Clinical Impression: Alcohol intoxication, Elevated lactic acid level, Dehydration, Abrasion, right lower leg, initial encounter, Hypomagnesemia Disposition: ADMITTED IP TO THIS [facility] Condition: Fair
[2021-07-26] MEDS: THIAMINE 100 MG TAB PO SCH (21:29)
[2021-07-26] MEDS: LORazepam 2 MG/ML INJ IV PRN (21:29)
[2021-07-26] MEDS: ONDANSETRON 4 MG/2 ML VIAL IVP PRN (21:30)
[2021-07-26] MEDS: PANTOPRAZOLE 40 MG TABLET PO SCH (21:30)
[2021-07-26] MEDS: FLUTICASONE 50MCG/SPRAY NASAL 16GM EA NOSTRIL SCH (21:30)
[2021-07-26] MEDS: GABAPENTIN 300 MG CAP PO SCH (21:31)
[2021-07-26] MEDS ORDERED: SODIUM CHLORIDE 0.9% 1,000 ML with THIAMINE 100 MG, FOLIC ACID 1 MG IV ONE ×3 (22:27)
[2021-07-26] MEDS ORDERED: IBUPROFEN 400 MG TAB PO STA (23:59)
[2021-07-27] MEDS ORDERED: SODIUM CHLORIDE 0.9% 1,000 ML IV ONE ×2 (00:08→09:32)
[2021-07-27] MEDS ORDERED: PROMETHAZINE 25 MG TAB PO PRN (00:10)
[2021-07-27] MEDS ORDERED: Magnesium Replacement Protocol 1 EACH MISC MISCELLANE PRN (00:13)
[2021-07-27] MEDS: LORazepam 2 MG/ML INJ IV PRN (00:14)
[2021-07-27 01:54] LABS: Basophils % (A) 1 %; Eosinophils % (A) 1 %; HCT 39.1 % (39.0-53.0); HGB 12.6 gm/dL (13.0-17.5); Lymphocytes # (A) 2.4 k/uL (1.0-4.8); Lymphocytes % (A) 44 %; MCH 31.1 pg (25.0-35.0); MCHC 32.4 g/dL (31.0-37.0); Mean Platelet Volume 7.6; Monocytes # (A) 0.3 k/uL (0-1.0); Monocytes % (A) 5 %; Neutrophils # (A) 2.6 k/uL (1.3-7.7); Neutrophils % (A) 48 %; Platelet Count 141 k/uL (150-450); RBC 4.07 m/uL (4.30-5.90); RDW 13.6 % (11.5-15.5); WBC 5.5 k/uL (3.8-10.6)
[2021-07-27] MEDS: LORazepam 1 MG TAB PO PRN ×5 (02:15→19:19)
[2021-07-27] MEDS ORDERED: THIAMINE 100 MG TAB PO SCH (07:30)
[2021-07-27] MEDS: NICOTINE 21MG/24HR PATCH TRANSDERM SCH (08:05)
[2021-07-27] MEDS: GABAPENTIN 300 MG CAP PO SCH ×3 (08:05→21:15)
[2021-07-27] MEDS: PANTOPRAZOLE 40 MG TABLET PO SCH ×2 (08:05→21:15)
[2021-07-27] MEDS: FLUTICASONE 50MCG/SPRAY NASAL 16GM EA NOSTRIL SCH ×2 (08:06→21:43)
[2021-07-27] MEDS: THIAMINE 100 MG TAB PO SCH ×2 (08:06→16:40)
[2021-07-27] MEDS: SODIUM CHLORIDE 0.9% 1,000 ML IV SCH ×3 (08:06→23:23)
[2021-07-27] MEDS ORDERED: CHOLESTYRAMINE (WITH SUGAR) 4 GM PACKET PO PRN (10:00)
[2021-07-27 10:55] VITALS: BMI 34.2
--- NOTE | 2021-07-27 11:19 | XR ---
EXAMINATION TYPE: XR Hip Bilateral and AP pelvis DATE OF EXAM: 07/27/2021 11:12 AM INDICATION: Patient age:Male; 46 years old; Reason for study: fall;. COMPARISON: None. TECHNIQUE: The bilateral hips were examined in the frontal and lateral projections and a AP pelvis. FINDINGS: No evidence of any acute osseous pathology, joint dislocation, or soft tissue swelling. Josy gical clips project over the right lower abdomen. IMPRESSION: No acute osseous pathology.
[2021-07-27] MEDS: ONDANSETRON 4 MG/2 ML VIAL IVP PRN (11:41)
[2021-07-27] MEDS: MELOXICAM 7.5 MG TAB PO PRN (14:02)
--- NOTE | 2021-07-27 14:34 | P.HPIM ---
History of Present Illness This is a pleasant 43 years old male with past medical history of hypertension, GERD, GI bleed, pneumonia, seizure disorder, sleep apnea on CPAP/BiPAP, alcohol abuse, alcoholic seizure, alcoholic hepatitis, alcoholic gastritis, upper GI bleed, spinal stenosis with herniated disc status post surgery, hemorrhoids. Patient presents because of recurrent alcohol intoxication and falling at home And this is the third admission during this week. 07/22, 07/25 and this time 07/27. This is the fifth admission for the same reason since 07/06/21. He presents with falling at home secondary to alcohol abuse. Patient refuses to go to rehab whether for substance abuse rehab or physical rehab. Patient as long as he keeps drinking alcohol he'll be at high risk for falling. Explained for the patient that he needs to quit drinking. Patient currently sober and alert awake and oriented to time place, person. He has some tremor in the upper and lower extremities. No nausea or vomiting. No abdominal pain. No chest pain or dyspnea. No headache or weakness or numbness. Patient looks dehydrated Patient hemodynamically stable. Labs showing no CBC, BMP is unremarkable. Lactic acid elevated 4.0. Improved today to 2.2 Low magnesium 1.4, Bilirubin 1.4, AST 210, ALT 96. Lipase normal. Serum alcohol elevated 420. Coronavirus detected Chest x-ray: No acute cardiopulmonary disease. Knee x-ray: No acute process. Mild degenerative osteoarthritic changes Patient has bruising both knees, striking her right thigh and other worse on his right hip area. We checked knee and hip and pelvis x-ray and came back negative. Review of Systems CONSTITUTIONAL: No fever, no malaise, no fatigue. HEENT: No recent visual problems or hearing problems. Denied any sore throat. CARDIOVASCULAR: No orthopnea, PND, no palpitations, no syncope. PULMONARY: No shortness of breath, no cough, no hemoptysis. GASTROINTESTINAL: No diarrhea, no nausea, no vomiting, no abdominal pain. Normoactive bowel sounds. NEUROLOGICAL: No headaches, no weakness, no numbness. HEMATOLOGICAL: Denies any bleeding or petechiae. GENITOURINARY: Denies any burning micturition, frequency, or urgency. MUSCULOSKELETAL/RHEUMATOLOGICAL: Denies any joint pain, swelling, or any muscle pain. ENDOCRINE: Denies any polyuria or polydipsia. Past Medical History Past Medical History: GERD/Reflux, GI Bleed, Hypertension, Osteoarthritis (OA), Pneumonia, Seizure Disorder, Sleep Apnea/CPAP/BIPAP Additional Past Medical History / Comment(s): Pt recently admitted to [facility] on 07/06/21 with alcohol intoxication/withdrawal. Other hx: Occasional bilateral pedal edema if stands long, arthritis possibly in back/ribs, MILIND without device, ETOH abuse, alcoholic seizures/blackouts/fainting 2017, alcoholic hepatitis, alcoholic gastritis, upper GI bleed, hypomagnesemia, spinal stenosis/herniated disc with surgery, bilateral varicose veins, hemorrhoids History of Any Multi-Drug Resistant Organisms: None Reported Past Surgical History: Appendectomy, Back Surgery, Tonsillectomy Additional Past Surgical History / Comment(s): bilateral discectomy, discectomy L5-S1, EGD Past Anesthesia/Blood Transfusion Reactions: Motion Sickness Past Psychological History: Anxiety, Depression Additional Psychological History / Comment(s): Pt lives alone no pets. Pt uses no assistive device. He drives. Smoking Status: Current some day smoker Past Alcohol Use History: None Reported Additional Past Alcohol Use History / Comment(s): He has been in rehab in the past for ETOH abuse. Pt states he started on and off smoking as a young adult and has more often been a nonsmoker. Pt states he drinks 1/2 gallon vodka since discharged on 11/21/20 Past Drug Use History: Marijuana Additional Drug Use History / Comment(s): Pt smoked marijuana on occasion in the past. - Past Family History Father Family Medical History: Cancer, Dementia, Neurologic Disorder Additional Family Medical History / Comment(s): melanoma, parkinsons, schzophrenic Mother Family Medical History: Hypertension, Musculoskeletal Disorder, Neurologic Disorder, Osteoarthritis (OA) Additional Family Medical History / Comment(s): Mother of motor neuron disease at the age of 78yrs. Medications and Allergies Home Medications Medication Instructions Recorded Confirmed Type RX: Fluticasone Nasal [place] 2 spr EA NOSTRIL BID 10/11/19 07/26/21 History [Flonase Nasal [place]] RX: traZODone HCL [Desyrel] 100 mg PO HS PRN 05/14/20 07/26/21 History RX: ALPRAZolam [Xanax] 1 mg PO BID PRN #10 tab 02/25/21 07/26/21 Rx RX: Albuterol Sulfate [Proair Hfa] 1 - 2 puff INHALATION RT-QID PRN 07/06/21 07/26/21 History RX: Celecoxib [CeleBREX] 200 mg PO DAILY PRN 07/06/21 07/26/21 History RX: Gabapentin [Neurontin] 600 mg PO TID 07/06/21 07/26/21 History RX: Acetaminophen Tab [Tylenol] 650 mg PO Q6HR PRN tab 07/10/21 07/26/21 Rx RX: Cholestyramine (with Sugar) 4 gm PO BID@1000,1800 PRN #30 07/10/21 07/26/21 Rx [Questran Packet] packet RX: Loperamide [Imodium] 2 mg PO QID PRN #20 cap 07/10/21 07/26/21 Rx RX: Pantoprazole Sodium [Protonix] 40 mg PO BID 30 Days #60 tab 07/10/21 07/26/21 Rx RX: Thiamine [Vitamin B-1] 100 mg PO BID-W/MEALS 30 Days #60 07/10/21 07/26/21 Rx tab RX: Nicotine 21Mg/24Hr Patch 1 patch TRANSDERM DAILY #7 patch 07/17/21 07/26/21 Rx [Habitrol] Allergies Allergy/AdvReac Type Severity Reaction Status Date / Time Cephalosporins Allergy Severe Anaphylaxis Verified 07/26/21 19:21 diphenhydramine HCl Allergy Severe Anaphylaxis Verified 07/26/21 19:21 [From Benadryl] divalproex sodium Allergy Severe Anaphylaxis Verified 07/26/21 19:21 [From Depakote] ceftriaxone [From Rocephin] Allergy Anaphylaxis Verified 07/26/21 19:21 cephalexin [From Keflex] Allergy Anaphylaxis Verified 07/26/21 19:21 droperidol Allergy Anaphylaxis Verified 07/26/21 19:21 lisinopril Allergy Anaphylaxis Verified 07/26/21 19:21 Physical Exam Vitals: Vital Signs Temp Pulse Pulse Resp BP BP BP 07/27/21 10:00 99.2 F 85 16 135/80 07/27/21 06:07 98.5 F 85 16 135/66 07/27/21 01:56 98.0 F 93 17 127/76 07/26/21 23:41 98.2 F 76 18 164/85 02/11/22 21:36 82 18 131/83 07/26/21 18:17 97.6 F 83 18 135/78 Pulse Ox 07/27/21 10:00 95 07/27/21 06:07 95 07/27/21 01:56 97 07/26/21 23:41 96 07/26/21 21:36 98 07/26/21 18:17 96 Intake and Output 07/26/21 07/27/21 07/27/21 22:59 06:59 14:59 Other: Voiding Method Toilet # Voids 3 Weight 117.934 kg 117.934 kg 117.934 kg GENERAL: The patient is alert and oriented x3, not in any acute distress. Well developed, well nourished. HEENT: Pupils are round and equally reacting to light. EOMI. No scleral icterus. No conjunctival pallor. Normocephalic, atraumatic. No pharyngeal erythema. No thyromegaly. CARDIOVASCULAR: S1 and S2 present. No murmurs, rubs, or gallops. PULMONARY: Chest is clear to auscultation, no wheezing or crackles. ABDOMEN: Soft, nontender, nondistended, normoactive bowel sounds. No palpable organomegaly. MUSCULOSKELETAL: No joint swelling or deformity. -EXTREMITIES: No cyanosis, clubbing, or pedal edema. Bruise on both knees and right hip with scratch on his right thigh lateral side from his recent falls -NEUROLOGICAL: Gross neurological examination did not reveal any focal deficits. Upper extremity tremors SKIN: No rashes. No petechiae Results CBC & Chem 7: 07/27/21 01:02 07/26/21 18:43 Labs: Abnormal Lab Results - Last 24 Hours (Table) 07/26/21 07/26/21 07/26/21 Range/Units 18:43 18:43 21:27 RBC (4.30-5.90) m/uL Hgb (13.0-17.5) gm/dL Plt Count (150-450) k/uL Carbon Dioxide 20 L (22-30) mmol/L Plasma Lactic Acid [place] 4.2 H* 4.0 H* (0.7-2.0) mmol/L Magnesium 1.3 L (1.6-2.3) mg/dL Total Bilirubin 1.4 H (0.2-1.3) mg/dL AST 210 H (17-59) U/L ALT 96 H (4-49) U/L Serum Alcohol 420 H* mg/dL Coronavirus (PCR) (Not Detectd) 07/26/21 07/27/21 07/27/21 Range/Units 21:37 01:02 01:02 RBC 4.07 L (4.30-5.90) m/uL Hgb 12.6 L (13.0-17.5) gm/dL Plt Count 141 L (150-450) k/uL Carbon Dioxide (22-30) mmol/L Plasma Lactic Acid Burak 3.8 H* (0.7-2.0) mmol/L Magnesium (1.6-2.3) mg/dL Total Bilirubin (0.2-1.3) mg/dL AST (17-59) U/L ALT (4-49) U/L Serum Alcohol mg/dL Coronavirus (PCR) Detected A (Not Detectd) 07/27/21 07/27/21 07/27/21 Range/Units 04:29 07:39 11:28 RBC (4.30-5.90) m/uL Hgb (13.0-17.5) gm/dL Plt Count (150-450) k/uL Carbon Dioxide (22-30) mmol/L Plasma Lactic Acid [place]ak 4.7 H* 3.2 H* 2.2 H* (0.7-2.0) mmol/L Magnesium (1.6-2.3) mg/dL Total Bilirubin (0.2-1.3) mg/dL AST (17-59) U/L ALT (4-49) U/L Serum Alcohol mg/dL Coronavirus (PCR) (Not Detectd) Thrombosis Risk Factor Assmnt - Choose All That Apply Each Factor Represents 1 point: Age 41-60 years, Obesity (BMI >25) Other Risk Factors: No Other congenital or acquired thrombophilia - If yes, enter type in comment: No Thrombosis Risk Factor Assessment Total Risk Factor Score: 2 Thrombosis Risk Factor Assessment Level: Low Risk Assessment and Plan Assessment: Severe alcohol abuse, with recurrent alcohol withdrawal fall secondary to alcohol abuse. Has a bruise in both knees and right leg and hip area. X-rays negative for fracture elevated lactic acid, secondary to alcohol abuse and dehydration alcoholic hepatitis, asymptomatic covid: 19 infection without pneumonia or hypoxia substance abuse with marijuana Alcoholic gastritis Hypertension History of GERD Nicotine dependence Sleep apnea on CPAP/BiPAP History of GI bleed History of spinal stenosis with herniated disc status post surgery History of hemorrhoids Plan: This is a pleasant 45 years old male who presents with abuse and withdrawal. Also fall at home Continue with CIWA protocol and Ativan as needed, continue with thiamine. Continue with IV fluid Phenergan for nausea as needed Replacement magnesium Neuro check X 24 hours I explained for the patient risks of continuous alcohol Abuse, recurrent falling and bleeding or injury like but not limited to bleeding into the brain Labs and medication were reviewed.. Continue same treatment. Continue with symptomatic treatment. Resume home medication. Monitor lytes and vitals. DVT and GI prophylaxis. Further recommendations as per clinical course of the patient DVT prophylaxis: Subcutaneous heparin GI Prophylaxis: Ppi Prognosis is guarded, including long-term prognosis Possible discharge in 24-48 hours
[2021-07-27] MEDS ORDERED: LORazepam 1 MG TAB PO STA (22:03)
[2021-07-27] MEDS: HEPARIN SODIUM,PORCINE/PF 5,000 UNIT/0.5 ML SYRINGE SQ SCH (23:21)
[2021-07-28] MEDS: MELOXICAM 7.5 MG TAB PO PRN (05:53)
[2021-07-28] MEDS: LORazepam 1 MG TAB PO PRN (05:53)
[2021-07-28] MEDS: SODIUM CHLORIDE 0.9% 1,000 ML IV SCH (06:08)
[2021-07-28] MEDS: NICOTINE 21MG/24HR PATCH TRANSDERM SCH (09:00)
[2021-07-28] MEDS: THIAMINE 100 MG TAB PO SCH (09:00)
[2021-07-28] MEDS: PANTOPRAZOLE 40 MG TABLET PO SCH (09:00)
[2021-07-28] MEDS: GABAPENTIN 300 MG CAP PO SCH (09:00)
[2021-07-28] MEDS: HEPARIN SODIUM,PORCINE/PF 5,000 UNIT/0.5 ML SYRINGE SQ SCH (09:01)
[2021-07-28] MEDS: FLUTICASONE 50MCG/SPRAY NASAL 16GM EA NOSTRIL SCH (09:04)
[2021-07-28] MEDS: MAGNESIUM SULFATE-D5W PMX 1 GM in DEXTROSE/WATER 1 100ML.BAG IVPB SCH ×2 (10:00→11:27)
[2021-07-28 14:41] VITALS: BP 154/97; PULSE 102; RESP 19; TEMP 98.8
--- NOTE | 2021-07-29 16:48 | P.DS ---
Providers Date of admission: 07/26/21 20:38 Attending physician: Isauro Ayers MD Primary care physician: Veena Bynum [facility] Course: Diagnoses: Severe alcohol abuse, with recurrent alcohol withdrawal fall secondary to alcohol abuse. Has a bruise in both knees and right leg and hip area. X-rays negative for fracture elevated lactic acid, secondary to alcohol abuse and dehydration. Improved with IV hydration and today's back to normal at 0.6 Hypomagnesemia, replaced and discharge on oral prescription alcoholic hepatitis, asymptomatic covid-19 infection without pneumonia or hypoxia substance abuse with marijuana Alcoholic gastritis Hypertension History of GERD Nicotine dependence Sleep apnea on CPAP/BiPAP History of GI bleed History of spinal stenosis with herniated disc status post surgery History of hemorrhoids Hospital course: This is a pleasant 43 years old male with past medical history of hypertension, GERD, GI bleed, pneumonia, seizure disorder, sleep apnea on CPAP/BiPAP, alcohol abuse, alcoholic seizure, alcoholic hepatitis, alcoholic gastritis, upper GI bleed, spinal stenosis with herniated disc status post surgery, hemorrhoids. Patient presents because of recurrent alcohol intoxication and falling at home And this is the third admission during this week. 07/22, 07/25 and this time 07/27. This is the fifth admission for the same reason since 07/06/21. He presents with falling at home secondary to alcohol abuse. Patient refuses to go to rehab whether for substance abuse rehab or physical rehab. Patient as long as he keeps drinking alcohol he'll be at high risk for falling. Explained for the patient that he needs to quit drinking. Patient today states he is better, he denies any chest pain or dyspnea. No change in urine or bowel habits. No fever. Patient agrees to be discharged home today. Noted for more IV fluids. I resume this is a pleasant 2 g IV and prescription for 7 days is provided at magnesium oxide 400 mg twice a day. Problems and management plan were discussed with the patient and he verbalized understanding and acceptance Patient was found stable and can be discharged home in good prognosis is has high-risk for readmission however he needs follow-up as an outpatient. Patient was instructed to follow up with PCP within one week and patient agrees Physical exam Gen: patient is a AAOx3, no distress CVS: S1-S2, RRR, no murmur Lungs: B/L CTA, no wheezing Abdomen: soft, no distention, no tenderness, positive bowel sounds Extremity: no leg edema or induration Time spent more than 35 minutes Patient Condition at Discharge: Fair Plan - Discharge Summary Discharge Rx Participant: No New Discharge Prescriptions: New Magnesium Oxide [Mag-Ox] 400 mg PO BID 7 Days #14 tablet Continue Fluticasone Nasal [place] [Flonase Nasal [place]] 2 spr EA NOSTRIL BID traZODone HCL [Desyrel] 100 mg PO HS PRN PRN Reason: Insomnia ALPRAZolam [Xanax] 1 mg PO BID PRN #10 tab PRN Reason: Anxiety Gabapentin [Neurontin] 600 mg PO TID Celecoxib [CeleBREX] 200 mg PO DAILY PRN PRN Reason: Pain Albuterol Sulfate [Proair Hfa] 1 - 2 puff INHALATION RT-QID PRN PRN Reason: Shortness Of Breath Cholestyramine (with Sugar) [Questran Packet] 4 gm PO BID@1000,1800 PRN #30 packet PRN Reason: Diarrhea Loperamide [Imodium] 2 mg PO QID PRN #20 cap PRN Reason: Diarrhea Acetaminophen Tab [Tylenol] 650 mg PO Q6HR PRN tab PRN Reason: Fever And/ Or Pain Thiamine [Vitamin B-1] 100 mg PO BID-W/MEALS 30 Days #60 tab Pantoprazole Sodium [Protonix] 40 mg PO BID 30 Days #60 tab Nicotine 21Mg/24Hr Patch [Habitrol] 1 patch TRANSDERM DAILY #7 patch Discharge Medication List Fluticasone Nasal [place] [Flonase Nasal [place]] 2 spr EA NOSTRIL BID 10/11/19 [History] traZODone HCL [Desyrel] 100 mg PO HS PRN 05/14/20 [History] ALPRAZolam [Xanax] 1 mg PO BID PRN #10 tab 02/25/21 [Rx] Albuterol Sulfate [Proair Hfa] 1 - 2 puff INHALATION RT-QID PRN 07/06/21 [History] Celecoxib [CeleBREX] 200 mg PO DAILY PRN 07/06/21 [History] Gabapentin [Neurontin] 600 mg PO TID 07/06/21 [History] Acetaminophen Tab [Tylenol] 650 mg PO Q6HR PRN tab 07/10/21 [Rx] Cholestyramine (with Sugar) [Questran Packet] 4 gm PO BID@1000,1800 PRN #30 packet 07/10/21 [Rx] Loperamide [Imodium] 2 mg PO QID PRN #20 cap 07/10/21 [Rx] Pantoprazole Sodium [Protonix] 40 mg PO BID 30 Days #60 tab 07/10/21 [Rx] Thiamine [Vitamin B-1] 100 mg PO BID-W/MEALS 30 Days #60 tab 07/10/21 [Rx] Nicotine 21Mg/24Hr Patch [Habitrol] 1 patch TRANSDERM DAILY #7 patch 07/17/21 [Rx] Magnesium Oxide [Mag-Ox] 400 mg PO BID 7 Days #14 tablet 07/28/21 [Rx] Follow up Appointment(s)/Referral(s): Veena Bynum DO [Primary Care Provider] - 1-2 days Patient Instructions/Handouts: Alcohol Intoxication (DC), Fall Prevention (DC) Activity/Diet/Wound Care/Special Instructions: heart healthy diet activity is restricted till you see your doctor Discharge Disposition: HOME SELF-CARE
== END 2021-07-28 14:34 | disposition home or self-care (01) ==
LOC: EC 18:07 → 4SSUR 20:38 → INTOOBSV 20:38 → 4SSUR 21:55 → UNDODISIN 07-28 14:34
PROVIDERS: ADMIT Internal Medicine; ATTEND Internal Medicine
DX: F10.139 Alcohol abuse with withdrawal, unspecified (principal); E86.0 Dehydration; U07.1 COVID-19; F10.129 Alcohol abuse with intoxication, unspecified; S80.02XA Contusion of left knee, initial encounter; S80.01XA Contusion of right knee, initial encounter; S70.01XA Contusion of right hip, initial encounter; E83.42 Hypomagnesemia; G40.909 Epilepsy, unspecified, not intractable, without status epilepticus; K21.9 Gastro-esophageal reflux disease without esophagitis; I10 Essential (primary) hypertension; G47.33 Obstructive sleep apnea (adult) (pediatric); K64.9 Unspecified hemorrhoids; R79.89 Other specified abnormal findings of blood chemistry; M19.90 Unspecified osteoarthritis, unspecified site; F32.A Depression, unspecified; F41.9 Anxiety disorder, unspecified; K70.10 Alcoholic hepatitis without ascites; K29.20 Alcoholic gastritis without bleeding; E66.9 Obesity, unspecified; Z68.34 Body mass index [BMI] 34.0-34.9, adult; Y90.8 Blood alcohol level of 240 mg/100 ml or more; W13.3XXA Fall through floor, initial encounter; Y92.003 Bedroom of unspecified non-institutional (private) residence as the place of occurrence of the external cause; Z79.1 Long term (current) use of non-steroidal anti-inflammatories (NSAID); Z79.899 Other long term (current) drug therapy; Z88.2 Allergy status to sulfonamides; Z88.8 Allergy status to other drugs, medicaments and biological substances; Z87.01 Personal history of pneumonia (recurrent); Z87.19 Personal history of other diseases of the digestive system; I83.93 Asymptomatic varicose veins of bilateral lower extremities; Z90.49 Acquired absence of other specified parts of digestive tract; Z91.81 History of falling; Z98.890 Other specified postprocedural states; Z82.0 Family history of epilepsy and other diseases of the nervous system; Z82.49 Family history of ischemic heart disease and other diseases of the circulatory system; Z81.8 Family history of other mental and behavioral disorders; Z80.8 Family history of malignant neoplasm of other organs or systems; Z82.61 Family history of arthritis
CPT/HCPCS: 96376 ×2; 96361 ×2; 96366; 96372 ×3; 90471; 96365; 96375; 99285; 36415; 93005; 80053; 82550; 83605 ×3; 83690; 83735 ×2; 84484; 85025; 87635; 73562; 73521; 71046; 90715; G0378 ×3; G0480; S4990 ×2; J2060 ×2; J3411 ×2; J2405 ×2; J3475 ×2; J1644 ×2; 80320

== ENCOUNTER 2021-07-29 08:31 | Observation (INO) | payer OTHER ==
[2021-07-29] MEDS ORDERED: NITROGLYCERIN SL TABS 0.4 MG TAB SUBLINGUAL STA (08:50)
[2021-07-29] MEDS ORDERED: SODIUM CHLORIDE 0.9% 1,000 ML IV STA (08:50)
[2021-07-29] MEDS ORDERED: ASPIRIN 81 MG PO STA (08:50)
--- NOTE | 2021-07-29 08:55 | ED ---
General Adult HPI - General Chief complaint: Chest Pain Stated complaint: Chest pain Time Seen by Provider: 07/29/21 08:34 Source: patient, EMS, RN notes reviewed Mode of arrival: EMS Limitations: no limitations - History of Present Illness Initial comments: Patient is a pleasant 46-year-old male presenting to the emergency Department with complaints of chest discomfort. Patient states onset of symptoms was when he woke this morning just within the past hour or 2. Discomfort has been steady. Discomfort feels sharp. There is some radiation towards left arm. Patient does have history of frequent chest discomfort however this feels somewhat different. Patient does have tremors and states this is because "I'm an alcoholic ". Last drink was around 12 hours ago. Patient was sweaty last night. No associated dyspnea or nausea. - Related Data Home Medications Medication Instructions Recorded Confirmed Fluticasone Nasal [place] [Flonase 2 spr EA NOSTRIL BID 10/11/19 07/29/21 Nasal [place]] traZODone HCL [Desyrel] 100 mg PO HS PRN 05/14/20 07/29/21 Albuterol Sulfate [Proair Hfa] 1 - 2 puff INHALATION RT-QID PRN 07/06/21 07/29/21 Celecoxib [CeleBREX] 200 mg PO DAILY PRN 07/06/21 07/29/21 Gabapentin [Neurontin] 600 mg PO TID 07/06/21 07/29/21 Previous Rx's Medication Instructions Recorded ALPRAZolam [Xanax] 1 mg PO BID PRN #10 tab 02/25/21 Acetaminophen Tab [Tylenol] 650 mg PO Q6HR PRN tab 07/10/21 Cholestyramine (with Sugar) 4 gm PO BID@1000,1800 PRN #30 07/10/21 [Questran Packet] packet Loperamide [Imodium] 2 mg PO QID PRN #20 cap 07/10/21 Pantoprazole Sodium [Protonix] 40 mg PO BID 30 Days #60 tab 07/10/21 Thiamine [Vitamin B-1] 100 mg PO BID-W/MEALS 30 Days #60 07/10/21 tab Nicotine 21Mg/24Hr Patch [Habitrol] 1 patch TRANSDERM DAILY #7 patch 07/17/21 Magnesium Oxide [Mag-Ox] 400 mg PO BID 7 Days #14 tablet 07/28/21 Allergies Allergy/AdvReac Type Severity Reaction Status Date / Time Cephalosporins Allergy Severe Anaphylaxis Verified 07/29/21 10:26 diphenhydramine HCl Allergy Severe Anaphylaxis Verified 07/29/21 10:26 [From Benadryl] divalproex sodium Allergy Severe Anaphylaxis Verified 07/29/21 10:26 [From Depakote] ceftriaxone [From Rocephin] Allergy Anaphylaxis Verified 07/29/21 10:26 cephalexin [From Keflex] Allergy Anaphylaxis Verified 07/29/21 10:26 droperidol Allergy Anaphylaxis Verified 07/29/21 10:26 lisinopril Allergy Anaphylaxis Verified 07/29/21 10:26 Review of Systems ROS Statement: Those systems with pertinent positive or pertinent negative responses have been documented in the HPI. ROS Other: All systems not noted in ROS Statement are negative. Constitutional: Denies: fever Eyes: Denies: eye pain ENT: Denies: ear pain Respiratory: Denies: cough Cardiovascular: Reports: chest pain Endocrine: Denies: fatigue Gastrointestinal: Denies: abdominal pain, nausea, vomiting Genitourinary: Denies: dysuria Musculoskeletal: Denies: back pain Skin: Denies: rash Neurological: Denies: weakness Past Medical History Past Medical History: GERD/Reflux, GI Bleed, Hypertension, Osteoarthritis (OA), Pneumonia, Seizure Disorder, Sleep Apnea/CPAP/BIPAP Additional Past Medical History / Comment(s): Pt recently admitted to [facility] on 07/06/21 with alcohol intoxication/withdrawal. Other hx: Occasional bilateral pedal edema if stands long, arthritis possibly in back/ribs, MILIND without device, ETOH abuse, alcoholic seizures/blackouts/fainting 2017, alcoholic hepatitis, alcoholic gastritis, upper GI bleed, hypomagnesemia, spinal stenosis/herniated disc with surgery, bilateral varicose veins, hemorrhoids History of Any Multi-Drug Resistant Organisms: None Reported Past Surgical History: Appendectomy, Back Surgery, Tonsillectomy Additional Past Surgical History / Comment(s): bilateral discectomy, discectomy L5-S1, EGD Past Anesthesia/Blood Transfusion Reactions: Motion Sickness Past Psychological History: Anxiety, Depression Smoking Status: Current some day smoker Past Alcohol Use History: Abuse, Heavy Past Drug Use History: Marijuana - Past Family History Father Family Medical History: Cancer, Dementia, Neurologic Disorder Additional Family Medical History / Comment(s): melanoma, parkinsons, schzophrenic Mother Family Medical History: Hypertension, Musculoskeletal Disorder, Neurologic Disorder, Osteoarthritis (OA) Additional Family Medical History / Comment(s): Mother of motor neuron disease at the age of 78yrs. General Exam Limitations: altered mental status General appearance: alert, in no apparent distress, other (Moderate resting tremor) Head exam: Present: normocephalic Eye exam: Present: normal appearance Neck exam: Present: normal inspection Respiratory exam: Present: normal lung sounds bilaterally. Absent: chest wall tenderness Cardiovascular Exam: Present: regular rate, normal rhythm, normal heart sounds Expanded Peripheral pulses: 2+: Radial (R), Radial (L), Dorsalis Pedis (R), Dorsalis Pedis (L) GI/Abdominal exam: Present: soft. Absent: tenderness Extremities exam: Present: normal inspection. Absent: pedal edema, calf tenderness Neurological exam: Present: alert Psychiatric exam: Present: normal affect, normal mood Skin exam: Present: normal color Course Vital Signs 07/29/21 07/29/21 08:32 08:45 Temperature 98.6 F Pulse Rate 87 Pulse Rate [ 86 Taker Off ] Respiratory 16 Rate Blood Pressure 140/88 O2 Sat by Pulse 98 Oximetry EKG Findings - EKG Comments: EKG Findings:: Motion artifact is present. Sinus rhythm with a rate of 87. MO 170. QRS 114. QT 41. QTC 445. Normal axis. Normal QRS. Nonspecific T waves. Medical Decision Making - Medical Decision Making Patient reevaluated and resting comfortably in bed. Patient still has some symptoms. Patient updated on results and plan. Case discussed with Dr. Santillan who is familiar with this patient and will admit current Dr. Mar - Lab Data Result diagrams: 07/29/21 09:23 07/29/21 09:23 Lab Results 07/29/21 07/29/21 07/29/21 Range/Units 09:23 09:23 09:23 WBC 4.6 (3.8-10.6) k/uL RBC 4.03 L (4.30-5.90) m/uL Hgb 12.7 L (13.0-17.5) gm/dL Hct 38.6 L (39.0-53.0) % MCV 96.0 (80.0-100.0) fL MCH 31.5 (25.0-35.0) pg MCHC 32.8 (31.0-37.0) g/dL RDW 14.0 (11.5-15.5) % Plt Count 130 L (150-450) k/uL MPV 7.8 Neutrophils % 50 % Lymphocytes % 37 % Monocytes % 8 % Eosinophils % 1 % Basophils % 1 % Neutrophils # 2.3 (1.3-7.7) k/uL Lymphocytes # 1.7 (1.0-4.8) k/uL Monocytes # 0.4 (0-1.0) k/uL Eosinophils # 0.0 (0-0.7) k/uL Basophils # 0.0 (0-0.2) k/uL Sodium 142 (137-145) mmol/L Potassium 4.8 (3.5-5.1) mmol/L Chloride 107 (98-107) mmol/L Carbon Dioxide 23 (22-30) mmol/L Anion Gap 12 mmol/L BUN 6 L (9-20) mg/dL Creatinine 0.62 L (0.66-1.25) mg/dL Est GFR (CKD-EPI)AfAm >90 (>60 ml/min/1.73 sqM) Est GFR (CKD-EPI)NonAf >90 (>60 ml/min/1.73 sqM) Glucose 86 (74-99) mg/dL Calcium 8.4 (8.4-10.2) mg/dL Magnesium 1.3 L (1.6-2.3) mg/dL Total Bilirubin 1.3 (0.2-1.3) mg/dL AST 130 H (17-59) U/L ALT 54 H (4-49) U/L Alkaline Phosphatase 46 (38-126) U/L Troponin I 0.015 (0.000-0.034) ng/mL Total Protein 6.6 (6.3-8.2) g/dL Albumin 4.0 (3.5-5.0) g/dL Amylase 65 (30-110) U/L Lipase 119 (23-300) U/L Serum Alcohol 247 H* mg/dL - Radiology Data Radiology results: image reviewed (Chest x-ray shows no acute process) Disposition Clinical Impression: Alcohol intoxication, Chest pain Disposition: ADMITTED IP TO THIS HOSP Is patient prescribed a controlled substance at d/c from ED?: No Referrals: Fletcher,Veena, DO [Primary Care Provider] - 1-2 days Decision Time: 10:50
[2021-07-29] MEDS ORDERED: LORazepam 2 MG/ML INJ IV STA (09:07)
--- NOTE | 2021-07-29 09:41 | XR ---
EXAMINATION TYPE: XR chest 2V DATE OF EXAM: 07/29/2021 COMPARISON: 07/26/2021 TECHNIQUE: PA and lateral views submitted. HISTORY: Chest pain FINDINGS: The lungs are clear and there is no pneumothorax, pleural effusion, or focal pneumonia. Heart size normal. Hypertrophic and degenerative changes of the spine no overt failure. Arthropathy of the shoul ders. IMPRESSION: 1. No acute process.
[2021-07-29 09:46] LABS: Basophils % (A) 1 %; Eosinophils % (A) 1 %; HCT 38.6 % (39.0-53.0); HGB 12.7 gm/dL (13.0-17.5); Lymphocytes # (A) 1.7 k/uL (1.0-4.8); Lymphocytes % (A) 37 %; MCH 31.5 pg (25.0-35.0); MCHC 32.8 g/dL (31.0-37.0); Mean Platelet Volume 7.8; Monocytes # (A) 0.4 k/uL (0-1.0); Monocytes % (A) 8 %; Neutrophils # (A) 2.3 k/uL (1.3-7.7); Neutrophils % (A) 50 %; Platelet Count 130 k/uL (150-450); RBC 4.03 m/uL (4.30-5.90); WBC 4.6 k/uL (3.8-10.6)
[2021-07-29 10:00] LABS: ALT 54 U/L (4-49); AST 130 U/L (17-59); African American GFR (CKD) >90 (>60 ml/min/1.73 sqM); Alkaline Phosphatase 46 U/L (38-126); Amylase 65 U/L (30-110); Anion Gap 12 mmol/L; Blood Urea Nitrogen 6 mg/dL (9-20); Calcium 8.4 mg/dL (8.4-10.2); Carbon Dioxide 23 mmol/L (22-30); Chloride 107 mmol/L (98-107); Glucose 86 mg/dL (74-99); Lipase 119 U/L (23-300); Magnesium 1.3 mg/dL (1.6-2.3); Non-African American GFR(CKD) >90 (>60 ml/min/1.73 sqM); Sodium 142 mmol/L (137-145); Total Bilirubin 1.3 mg/dL (0.2-1.3); Total Protein 6.6 g/dL (6.3-8.2)
[2021-07-29 10:28] LABS: Alcohol 247 mg/dL; Potassium 4.8 mmol/L (3.5-5.1)
[2021-07-29] MEDS ORDERED: MAGNESIUM SULFATE-D5W PMX 1 GM in DEXTROSE/WATER 1 100ML.BAG IVPB ONE (10:31)
[2021-07-29] MEDS ORDERED: NITROGLYCERIN SL TABS 0.4 MG TAB SUBLINGUAL PRN (10:50)
[2021-07-29] MEDS ORDERED: LORazepam 2 MG/ML INJ IV PRN (10:51)
[2021-07-29] MEDS ORDERED: THIAMINE 100 MG/ML 2 ML VIAL IM STA (10:51)
[2021-07-29] MEDS ORDERED: NITROGLYCERIN OINT 1 INCH/GM PACKET TOPICAL SCH (12:00)
[2021-07-29 13:16] LABS: INR 0.9 (<1.2); Partial Thromboplastin Time 22.3 sec (22.0-30.0); Prothrombin Time 9.7 sec (9.0-12.0)
--- NOTE | 2021-07-29 14:32 | P.CRDCN ---
History of Present Illness Consult date: 07/29/21 History of present illness: HISTORY OF PRESENT ILLNESS: This is a 46-year-old male with a past medical history significant for anxiety, depression, nicotine dependence, and alcohol abuse. Patient does not follow with a access coordinator. We have been asked to see the patient in consultation for chest pain. Patient examined at the bedside. Patient reports he began having chest pain this morning. He states the pain is on the left side of his chest. He reports tenderness with chest wall palpation and movement. He reports feeling diaphoretic. Patient was found to be acutely intoxicated with a serum alcohol of 247. The patient states the last time he drank alcohol was last night and he reports he has been trying to quit. EKG reveals sinus mechanism with no signs of acute ischemia. Baseline artifact. Chest xray negative for acute process. Laboratory data: WBC 4.6. Hemoglobin 12.7. Platelet count 130. Sodium 142. Potassium 4.8. BUN 6. Creatinine 0.62. Magnesium 1.3. AST 130. ALT 54. Troponin negative 2. Serum alcohol 247. Current home cardiac medications include none Most recent echocardiogram obtained in September 2019 revealed ejection fraction 60- 65% with trace mitral regurgitation REVIEW OF SYSTEMS: At the time of my exam: CONSTITUTIONAL: Denies fever or chills. HEENT: Denies blurred vision, vision changes, or eye pain. Denies hemoptysis CARDIOVASCULAR: Denies chest pain. Denies orthopnea. Denies PND. Denies palpitations RESPIRATORY: Denies shortness of breath. GASTROINTESTINAL: Denies abdominal pain. Denies nausea or vomiting. HEMATOLOGIC: Denies bleeding disorders. GENITOURINARY: Denies any blood in urine. SKIN: Denies pruitis. Denies rash. PHYSICAL EXAM: VITAL SIGNS: Reviewed. GENERAL: Well-developed in no acute distress. HEENT: Head is normocephalic. Pupils are equal, round. Sclerae anicteric. Mucous membranes of the mouth are moist. Neck supple. No JVD or thyromegaly LUNGS: Respirations even and unlabored. Lungs essentially clear to auscultation bilaterally. HEART: Regular rate and rhythm. S1 and S2 heard. Soft systolic murmur noted. ABDOMEN: Soft. Nondistended. Nontender. EXTREMITIES: Normal range of motion. No clubbing or cyanosis. Peripheral pulses intact. No lower extremity edema NEUROLOGIC: Awake and alert. Oriented x 3. ASSESSMENT: Chest pain Acute alcohol intoxication History of alcohol abuse Anxiety Depression Nicotine dependence Elevated LFTs Hypomagnesemia PLAN: An acute coronary event has been ruled out Obtain 2D echo to assess cardiac structure and function If 2-D echo does not reveal any significant abnormalities, no further workup from a cardiac standpoint No indication for stress test at this time Further recommendations pending patient course Nurse practitioner note has been reviewed by physician. Signing provider agrees with the documented findings, assessment, and plan of care. Past Medical History Past Medical History: GERD/Reflux, GI Bleed, Hypertension, Osteoarthritis (OA), Pneumonia, Seizure Disorder, Sleep Apnea/CPAP/BIPAP Additional Past Medical History / Comment(s): Pt recently admitted to [facility] on 07/06/21 with alcohol intoxication/withdrawal. Other hx: Occasional bilateral pedal edema if stands long, arthritis possibly in back/ribs, MILIND without device, ETOH abuse, alcoholic seizures/blackouts/fainting 2016, alcoholic hepatitis, alcoholic gastritis, upper GI bleed, hypomagnesemia, spinal stenosis/herniated disc with surgery, bilateral varicose veins, hemorrhoids History of Any Multi-Drug Resistant Organisms: None Reported Past Surgical History: Appendectomy, Back Surgery, Tonsillectomy Additional Past Surgical History / Comment(s): bilateral discectomy, discectomy L5-S1, EGD Past Anesthesia/Blood Transfusion Reactions: Motion Sickness Past Psychological History: Anxiety, Depression Smoking Status: Current some day smoker Past Alcohol Use History: Abuse, Heavy Past Drug Use History: Marijuana - Past Family History Father Family Medical History: Cancer, Dementia, Neurologic Disorder Additional Family Medical History / Comment(s): melanoma, parkinsons, schzophrenic Mother Family Medical History: Hypertension, Musculoskeletal Disorder, Neurologic Disorder, Osteoarthritis (OA) Additional Family Medical History / Comment(s): Mother of motor neuron disease at the age of 78yrs. Medications and Allergies Home Medications Medication Instructions Recorded Confirmed Type Fluticasone Nasal [place] [Flonase 2 spr EA NOSTRIL BID 10/11/19 07/29/21 History Nasal [place]] traZODone HCL [Desyrel] 100 mg PO HS PRN 05/14/20 07/29/21 History ALPRAZolam [Xanax] 1 mg PO BID PRN #10 tab 02/25/21 07/29/21 Rx Albuterol Sulfate [Proair Hfa] 1 - 2 puff INHALATION RT-QID PRN 07/06/21 07/29/21 History Celecoxib [CeleBREX] 200 mg PO DAILY PRN 07/06/21 07/29/21 History Gabapentin [Neurontin] 600 mg PO TID 07/06/21 07/29/21 History Acetaminophen Tab [Tylenol] 650 mg PO Q6HR PRN tab 07/10/21 07/29/21 Rx Cholestyramine (with Sugar) 4 gm PO BID@1000,1800 PRN #30 07/10/21 07/29/21 Rx [Questran Packet] packet Loperamide [Imodium] 2 mg PO QID PRN #20 cap 07/10/21 07/29/21 Rx Pantoprazole Sodium [Protonix] 40 mg PO BID 30 Days #60 tab 07/10/21 07/29/21 Rx Thiamine [Vitamin B-1] 100 mg PO BID-W/MEALS 30 Days #60 07/10/21 07/29/21 Rx tab Nicotine 21Mg/24Hr Patch [Habitrol] 1 patch TRANSDERM DAILY #7 patch 07/17/21 07/29/21 Rx Magnesium Oxide [Mag-Ox] 400 mg PO BID 7 Days #14 tablet 07/28/21 07/29/21 Rx Allergies Allergy/AdvReac Type Severity Reaction Status Date / Time Cephalosporins Allergy Severe Anaphylaxis Verified 07/29/21 10:26 diphenhydramine HCl Allergy Severe Anaphylaxis Verified 07/29/21 10:26 [From Benadryl] divalproex sodium Allergy Severe Anaphylaxis Verified 07/29/21 10:26 [From Depakote] ceftriaxone [From Rocephin] Allergy Anaphylaxis Verified 07/29/21 10:26 cephalexin [From Keflex] Allergy Anaphylaxis Verified 07/29/21 10:26 droperidol Allergy Anaphylaxis Verified 07/29/21 10:26 lisinopril Allergy Anaphylaxis Verified 07/29/21 10:26 Physical Exam Vitals: Vital Signs Temp Pulse Pulse Resp BP Pulse Ox 07/29/21 08:45 86 07/29/21 08:32 98.6 F 87 16 140/88 98 Intake and Output 07/28/21 07/29/21 07/29/21 22:59 06:59 14:59 Other: Weight 113.398 kg Results 07/29/21 09:23 07/29/21 09:23 Cardiac Enzymes 07/29/21 07/29/21 Range/Units 09:23 09:23 AST 130 H (17-59) U/L Troponin I 0.015 (0.000-0.034) ng/mL CBC 07/29/21 Range/Units 09:23 WBC 4.6 (3.8-10.6) k/uL RBC 4.03 L (4.30-5.90) m/uL Hgb 12.7 L (13.0-17.5) gm/dL Hct 38.6 L (39.0-53.0) % Plt Count 130 L (150-450) k/uL Comprehensive Metabolic Panel 07/29/21 Range/Units 09:23 Sodium 142 (137-145) mmol/L Potassium 4.8 (3.5-5.1) mmol/L Chloride 107 (98-107) mmol/L Carbon Dioxide 23 (22-30) mmol/L BUN 6 L (9-20) mg/dL Creatinine 0.62 L (0.66-1.25) mg/dL Glucose 86 (74-99) mg/dL Calcium 8.4 (8.4-10.2) mg/dL AST 130 H (17-59) U/L ALT 54 H (4-49) U/L Alkaline Phosphatase 46 (38-126) U/L Total Protein 6.6 (6.3-8.2) g/dL Albumin 4.0 (3.5-5.0) g/dL Current Medications Generic Name Dose Route Start Last Admin Trade Name Freq PRN Reason Stop Dose Admin Aspirin 325 mg 07/30/21 09:00 Aspirin 325 Mg Tab PO DAILY TRAVIS Sodium Chloride 1,000 mls @ 100 mls/hr 07/29/21 08:50 07/29/21 11:06 Saline 0.9% IV 07/29/21 18:49 100 mls/hr .Q10H STA Administration Magnesium Sulfate/Dextrose 1 100 mls @ 100 mls/hr 07/29/21 10:31 gm/ IV Solution IVPB 07/29/21 11:30 ONCE ONE Lorazepam 1 mg 07/29/21 10:51 Lorazepam 2 Mg/Ml Inj IV Q2HR PRN CIWA 8 or 9 Lorazepam 1 mg 07/29/21 10:51 Lorazepam 2 Mg/Ml Inj IV Q1HR PRN CIWA 10 to 15 Lorazepam 2 mg 07/29/21 10:51 Lorazepam 2 Mg/Ml Inj IV 07/31/21 10:51 Q10M PRN CIWA 16 or higher Multivitamins 1 each 07/30/21 09:00 Multivitamins, Thera 1 Each Tab PO DAILY TRAVIS Nitroglycerin 0.4 mg 07/29/21 10:50 Nitroglycerin Sl Tabs 0.4 Mg Tab SUBLINGUAL Q5M PRN Chest Pain Nitroglycerin 1 inch 07/29/21 12:00 Nitroglycerin Oint 1 Inch/Gm Packet TOPICAL Q6HR TRAVIS Thiamine HCl 100 mg 07/29/21 17:30 Thiamine 100 Mg Tab PO BID-W/MEALS TRAVIS Intake and Output 07/28/21 07/29/21 07/29/21 22:59 06:59 14:59 Other: Weight 113.398 kg Patient Weight 07/30/21 06:59 Weight 113.398 kg 07/29/21 09:23 07/29/21 09:23
[2021-07-29] MEDS ORDERED: traZODone HCL 100 MG TAB PO PRN (14:37)
[2021-07-29] MEDS ORDERED: ACETAMINOPHEN TAB 325 MG TAB PO PRN (14:37)
[2021-07-29] MEDS: LORazepam 2 MG/ML INJ IV PRN ×6 (15:42→23:57)
[2021-07-29] MEDS: THIAMINE 100 MG TAB PO SCH (18:35)
--- NOTE | 2021-07-29 19:00 | ECHOF ---
Referral Reason:chest pain MEASUREMENTS -------- HEIGHT: 182.9 cm WEIGHT: 113.4 kg BP: RVIDd: 3.5 cm (< 3.3) IVSd: 1.2 cm (0.6 - 1.1) LVIDd: 5.2 cm (3.9 - 5.3) LVPWd: 1.2 cm (0.6 - 1.1) IVSs: 1.4 cm LVIDs: 3.9 cm LVPWs: 1.8 cm LA Diam: 3.7 cm (2.7 - 3.8) Ao Diam: 3.1 cm (2.0 - 3.7) AV Cusp: 1.8 cm (1.5 - 2.6) LA Diam: 3.8 cm (2.7 - 3.8) MV EXCURSION: 22.560 mm (> 18.000) MV EF SLOPE: 128 mm/s (70 - 150) EPSS: 1.2 cm MV E Behzad: 0.63 m/s MV DecT: 154 ms MV A Behzad: 0.59 m/s MV E/A Ratio: 1.07 RAP: 5.00 mmHg RVSP: 14.31 mmHg FINDINGS -------- Sinus rhythm. This was a technically adequate study. LV size, wall thickness and systolic function are normal, with an EF greater than 55%. The left gurvinder tricular size is normal. The right ventricle is normal in size. Normal LA size by volume 22+/-6 ml/m2. The right atrial size is normal. The aortic valve is trileaflet, and appears structurally normal. No aortic stenosis or regurgitation. The mitral valve is normal. Mild mitral regurgitation is present. The tricuspid valve appears structurally normal. Mild tricuspid regurgitation present. Right vent ricular systolic pressure is normal at < 35 mmHg. There is no pulmonic regurgitation present. The aortic root size is normal. There is no pericardial effusion. CONCLUSIONS -------- 1. LV size, wall thickness and systolic function are normal, with an EF greater than 55%. 2. Normal LA size by volume 22+/-6 ml/m2. 3. The aortic valve is trileaflet, and appears structurally normal. No aortic stenosis or regurgitati on. 4. Mild mitral regurgitation is present. 5. Mild tricuspid regurgitation present. 6. There is no pericardial effusion. PRESTRESSED CONCRETE LABORER: Jessica Rushing RDCS
[2021-07-29] MEDS: PANTOPRAZOLE 40 MG TABLET PO SCH (21:17)
--- NOTE | 2021-07-29 23:00 | P.HPIM ---
History of Present Illness H&P Date: 07/29/21 Chief Complaint: chest pain Patient is a 46-year-old male with a known history of alcohol abuse and multiple admissions due to alcohol intoxication and withdrawal symptoms, upper GI bleed due to alcoholic gastritis, spinal stenosis/herniated disc with surgery, obstructive sleep apnea not on CPAP, GERD, osteoarthritis, hypertension, seizure disorder, anxiety/depression and currently heavy alcohol abuse and history of marijuana use presents to ER with complaints of chest discomfort. Chest discomfort is mainly in the mid retrosternal. Also in the epigastric region. Patient states that he woke up in the morning with chest pain as well as with nausea and diaphoresis. Patient states that he also have some radiation to the left arm. Denies any headache or dizziness. Otherwise patient did drink last night. Denies any orthopnea or PND. EKG showed normal sinus rhythm. Chest x-ray showed no acute cardiopulmonary process. Laboratory data showed WBC 4.6 hemoglobin 12.7 and platelets 130 Sodium 142 potassium 4.8 chloride 107 BUN 16 creatinine 0.62 magnesium 1.3 AST 130 ALT 54 alk phos 46 Troponin x3 - Alcohol level is 247 and lipase level is 119 Coronavirus PCR not detected. Review of Systems Constitutional: Patient denies any fever or chills . No generalized weakness or weight loss. Abdomen: Patient denied nausea vomiting and diarrhea and abdominal pain. Cardiovascular: Patient denies any chest pain or short of breath no palpi tations. Respiratory: patient denied any cough or sputum production. No shortness of breath Neurologic: Patient denied any numbness or tingling headache. Musculoskeletal: Patient denies any complaints of joint swelling or deformity. Skin: Negative Psychiatric: Negative Endocrine: No heat or cold intolerance. No recent weight gain. Genitourinary: No dysuria or hematuria. All other 14 point ROS negative except the above Past Medical History Past Medical History: GERD/Reflux, GI Bleed, Hypertension, Osteoarthritis (OA), Pneumonia, Seizure Disorder, Sleep Apnea/CPAP/BIPAP Additional Past Medical History / Comment(s): Pt recently admitted to [facility] on 07/06/21 with alcohol intoxication/withdrawal. Other hx: Occasional bilatera l pedal edema if stands long, arthritis possibly in back/ribs, MILIND without device, ETOH abuse, alcoholic seizures/blackouts/fainting 2017, alcoholic hepatitis, alcoholic gastritis, upper GI bleed, hypomagnesemia, spinal stenosis/herniated disc with surgery, bilateral varicose veins, hemorrhoids History of Any Multi-Drug Resistant Organisms: None Reported Past Surgical History: Appendectomy, Back Surgery, Tonsillectomy Additional Past Surgical History / Comment(s): bilateral discectomy, discectomy L5-S1, EGD Past Anesthesia/Blood Transfusion Reactions: Motion Sickness Past Psychological History: Anxiety, Depression Smoking Status: Current some day smoker Past Alcohol Use History: Abuse, Heavy Past Drug Use History: Marijuana - Past Family History Father Family Medical History: Cancer, Dementia, Neurologic Disorder Additional Family Medical History / Comment(s): melanoma, parkinsons, schzophrenic Mother Family Medical History: Hypertension, Musculoskeletal Disorder, Neurologic Disorder, Osteoarthritis (OA) Additional Family Medical History / Comment(s): Mother of motor neuron disease at the age of 78yrs. Medications and Allergies Home Medications Medication Instructions Recorded Confirmed Type Fluticasone Nasal [place] [Flonase 2 spr EA NOSTRIL BID 10/11/19 07/29/21 History Nasal [place]] traZODone HCL [Desyrel] 100 mg PO HS PRN 05/14/20 07/29/21 History ALPRAZolam [Xanax] 1 mg PO BID PRN #10 tab 02/25/21 07/29/21 Rx Albuterol Sulfate [Proair Hfa] 1 - 2 puff INHALATION RT-QID PRN 07/06/21 07/29/21 History Celecoxib [CeleBREX] 200 mg PO DAILY PRN 07/06/21 07/29/21 History Gabapentin [Neurontin] 600 mg PO TID 07/06/21 07/29/21 History Acetaminophen Tab [Tylenol] 650 mg PO Q6HR PRN tab 07/10/21 07/29/21 Rx Cholestyramine (with Sugar) 4 gm PO BID@1000,1800 PRN #30 07/10/21 07/29/21 Rx [Questran Packet] packet Loperamide [Imodium] 2 mg PO QID PRN #20 cap 07/10/21 07/29/21 Rx Pantoprazole Sodium [Protonix] 40 mg PO BID 30 Days #60 tab 07/10/21 07/29/21 Rx Thiamine [Vitamin B-1] 100 mg PO BID-W/MEALS 30 Days #60 07/10/21 07/29/21 Rx tab Nicotine 21Mg/24Hr Patch [Habitrol] 1 patch TRANSDERM DAILY #7 patch 07/17/21 07/29/21 Rx Magnesium Oxide [Mag-Ox] 400 mg PO BID 7 Days #14 tablet 07/28/21 07/29/21 Rx Allergies Allergy/AdvReac Type Severity Reaction Status Date / Time Cephalosporins Allergy Severe Anaphylaxis Verified 07/29/21 10:26 diphenhydramine HCl Allergy Severe Anaphylaxis Verified 07/29/21 10:26 [From Benadryl] divalproex sodium Allergy Severe Anaphylaxis Verified 07/29/21 10:26 [From Depakote] ceftriaxone [From Rocephin] Allergy Anaphylaxis Verified 07/29/21 10:26 cephalexin [From Keflex] Allergy Anaphylaxis Verified 07/29/21 10:26 droperidol Allergy Anaphylaxis Verified 07/29/21 10:26 lisinopril Allergy Anaphylaxis Verified 07/29/21 10:26 Physical Exam Vitals: Vital Signs Temp Pulse Pulse Resp BP Pulse Ox 07/29/21 12:46 107 H 16 122/79 99 07/29/21 08:45 86 07/29/21 08:32 98.6 F 87 16 140/88 98 Intake and Output 07/28/21 07/29/21 07/29/21 22:59 06:59 14:59 Other: Weight 113.398 kg PHYSICAL EXAMINATION: Patient is lying in the bed comfortably, no acute distress, awake alert and oriented..Lethargic and confused. HEENT: Normocephalic. Neck is supple. Pupils reactive. Nostrils clear. Oral cavity is moist. Neck reveals no JVD, carotid bruits, or thyromegaly. CHEST EXAMINATION: Trachea is central. Symmetrical expansion. Lung llamas clear to auscultation and percussion. CARDIAC: Normal S1, S2 with no gallops. No murmurs ABDOMEN: Soft. Bowel sounds normal. No organomegaly. No abdominal bruits. Extremities: reveal no edema. No clubbing or cyanosis Neurologically awake, alert, oriented x2-3 Able to move extremities while in bed. No gross focal neurological deficit. Skin: No rash or skin lesions. Psychiatric: Cooperative. Musculoskeletal: No joint swelling or deformity. Normal range of motion. Results CBC & Chem 7: 07/29/21 09:23 07/29/21 09:23 Labs: Abnormal Lab Results - Last 24 Hours (Table) 07/29/21 07/29/21 07/29/21 Range/Units 09:23 09:23 12:45 RBC 4.03 L (4.30-5.90) m/uL Hgb 12.7 L (13.0-17.5) gm/dL Hct 38.6 L (39.0-53.0) % Plt Count 130 L (150-450) k/uL D-Dimer 1.38 H (<0.60) mg/L FEU BUN 6 L (9-20) mg/dL Creatinine 0.62 L (0.66-1.25) mg/dL Magnesium 1.3 L (1.6-2.3) mg/dL AST 130 H (17-59) U/L ALT 54 H (4-49) U/L Serum Alcohol 247 H* mg/dL Thrombosis Risk Factor Assmnt - DVT/VTE Prophylaxis DVT/VTE Prophylaxis: Pharmacologic Prophylaxis ordered Assessment and Plan Assessment: Chest pain. Rule out ACS. Likely GI related Possible acute gastritis and esophagitis. GERD Acute alcohol intoxication Hypomagnesemia Severe alcohol abuse History of alcoholic gastritis Elevated liver enzymes possible alcohol hepatitis Obstructive sleep apnea not on CPAP Anxiety/depression DVT prophylaxis Heparin subcu Plan: Patient begun on IV hydration with normal saline. Continue thiamine and multivitamins. Continue telemetry monitoring. Serial troponin x3 -. Cardiology is on board. 2D echocardiogram was ordered. Continue with PPI and home medications and follow closely. Monitor for alcohol withdrawal symptoms. Time with Patient: Greater than 30
--- NOTE | 2021-07-30 00:16 | CT ---
EXAMINATION TYPE: CT chest angio for PE DATE OF EXAM: 07/29/2021 COMPARISON: 12/03/2020 HISTORY: PE Short of breath CT DLP: 514.7 mGycm Automated exposure control for dose reduction was used. CONTRAST: Performed with IV Contrast, patient injected with 100 mL of Isovue 370. There are Three-D postprocessed images. There is some patchy atelectasis at the lung bases. Heart is top normal in size. There is no pericard ial effusion. There is no pleural effusion. There is fatty infiltration of the liver. There is no evidence of filling defect in the pulmonary arteries. There is no mediastinal adenopathy. There are no hilar masses. Thoracic spine is intact. Sternum is intact. Thoracic aorta shows no evidence of aneurysm or dissecti on. IMPRESSION: No evidence of pulmonary embolism. Mild atelectasis at the posterior lung bases. This appears new compared to old exam. No suspicious pu lmonary mass. Fatty infiltration of the liver.
[2021-07-30] MEDS: SODIUM CHLORIDE 0.9% 1,000 ML IV SCH ×2 (00:23→15:31)
[2021-07-30] MEDS: MAGNESIUM SULFATE-D5W PMX 1 GM in DEXTROSE/WATER 1 100ML.BAG IVPB SCH ×2 (00:35→01:37)
[2021-07-30] MEDS: HEPARIN SODIUM,PORCINE/PF 5,000 UNIT/0.5 ML SYRINGE SQ SCH ×3 (00:36→15:30)
[2021-07-30] MEDS: LORazepam 2 MG/ML INJ IV PRN ×8 (01:57→21:00)
[2021-07-30] MEDS ORDERED: ASPIRIN 325 MG TAB PO SCH (09:00)
[2021-07-30] MEDS: THIAMINE 100 MG TAB PO SCH ×2 (09:03→17:32)
[2021-07-30] MEDS: PANTOPRAZOLE 40 MG TABLET PO SCH ×2 (09:03→21:01)
[2021-07-30] MEDS: MULTIVITAMINS, THERA 1 EACH TAB PO SCH (09:03)
--- NOTE | 2021-07-30 10:15 | P.PN ---
Subjective Progress Note Date: 07/30/21 HISTORY OF PRESENT ILLNESS: This is a 46-year-old male with a past medical history significant for anxiety, depression, nicotine dependence, and alcohol abuse. Patient does not follow with a deputy administrator. We have been asked to see the patient in consultation for chest pain. Patient examined at the bedside. Patient reports he began having chest pain this morning. He states the pain is on the left side of his chest. He reports tenderness with chest wall palpation and movement. He reports feeling diaphoretic. Patient was found to be acutely intoxicated with a serum alcohol of 247. The patient states the last time he drank alcohol was last night and he reports he has been trying to quit. EKG reveals sinus mechanism with no signs of acute ischemia. Baseline artifact. Chest xray negative for acute process. Laboratory data: WBC 4.6. Hemoglobin 12.7. Platelet count 130. Sodium 142. Potassium 4.8. BUN 6. Creatinine 0.62. Magnesium 1.3. AST 130. ALT 54. Troponin negative 2. Serum alcohol 247. Current home cardiac medications include none Most recent echocardiogram obtained in September 2019 revealed ejection fraction 60- 65% with trace mitral regurgitation 07/30/2021 Patient examined this morning at the bedside. Patient denies shortness of breath. He reports mild chest discomfort with movement in the bed. He reports mild nausea but was able to tolerate breakfast this morning. Patient underwent chest CT which was negative for pulmonary embolism. Echocardiogram completed revealing ejection fraction 55%, mild mitral regurgitation, and mild tricuspid regurgitation. Patient's vital signs are stable. PHYSICAL EXAM: VITAL SIGNS: Reviewed. GENERAL: Well-developed in no acute distress. HEENT: Head is normocephalic. Pupils are equal, round. Sclerae anicteric. Mucous membranes of the mouth are moist. Neck supple. No JVD or thyromegaly LUNGS: Respirations even and unlabored. Lungs essentially clear to auscultation bilaterally. HEART: Regular rate and rhythm. S1 and S2 heard. Soft systolic murmur noted. ABDOMEN: Soft. Nondistended. Nontender. EXTREMITIES: Normal range of motion. No clubbing or cyanosis. Peripheral pulses intact. No lower extremity edema NEUROLOGIC: Awake and alert. Oriented x 3. ASSESSMENT: Chest pain Acute alcohol intoxication History of alcohol abuse Anxiety Depression Nicotine dependence Elevated LFTs Hypomagnesemia PLAN: Patient is currently stable from a cardiac standpoint No further inpatient recommendations from a cardiac perspective We will sign off. Please reconsult if needed. Nurse practitioner note has been reviewed by physician. Signing provider agrees with the documented findings, assessment, and plan of care. Objective - Vital Signs Vital signs: Vital Signs Temp 98.6 F 07/29/21 08:32 Pulse 69 07/30/21 09:01 Resp 16 07/30/21 09:01 BP 144/87 07/30/21 09:01 Pulse Ox 98 07/30/21 09:01 Intake & Output 07/29/21 07/30/21 07/30/21 18:59 06:59 18:59 Weight 113.398 kg - Labs CBC & Chem 7: 07/29/21 09:23 07/29/21 09:23 Labs: Abnormal Lab Results - Last 24 Hours (Table) 07/29/21 07/29/21 Range/Units 09:23 12:45 D-Dimer 1.38 H (<0.60) mg/L FEU BUN 6 L (9-20) mg/dL Creatinine 0.62 L (0.66-1.25) mg/dL Magnesium 1.3 L (1.6-2.3) mg/dL AST 130 H (17-59) U/L ALT 54 H (4-49) U/L Serum Alcohol 247 H* mg/dL
[2021-07-30 11:02] LABS: Basophils # (A) 0.01 X 10*3/uL (0.00-0.10); Basophils % (A) 0.2 %; Eosinophils # (A) 0.09 X 10*3/uL (0.04-0.35); Eosinophils % (A) 2.1 %; HCT 35.9 % (39.6-50.0); HGB 11.4 g/dL (13.0-17.0); Immature Grans, Automated 0.2 %; Lymphocytes # (A) 2.12 X 10*3/uL (0.90-5.00); Lymphocytes % (A) 50.1 %; MCHC 31.8 g/dL (32.0-37.0); MCV 94.5 fL (80.0-97.0); Mean Platelet Volume 10.3 fL (9.5-12.2); Monocytes # (A) 0.41 X 10*3/uL (0.20-1.00); Monocytes % (A) 9.7 %; NRBC Per 100 WBC 0 /100 WBCS (0.0-0.0); Neutrophils # (A) 1.59 X 10*3/uL (1.80-7.70); Neutrophils % (A) 37.7 %; Platelet Count 124 X 10*3/uL (140-440); RDW 14.6 % (11.5-14.5); WBC 4.23 X 10*3/uL (4.50-10.00)
[2021-07-30 11:20] LABS: African American GFR (CKD) 148.5 (60.0-200.0); Anion Gap 9.7 mmol/L (10.00-18.00); BUN/Creat Ratio 17.8 Ratio (12.00-20.00); Blood Urea Nitrogen 8.9 mg/dL (9.0-27.0); Carbon Dioxide 24.3 mmol/L (20.0-27.5); HDL Cholesterol 73.3 mg/dL (40.00-60.00); Non-African American GFR(CKD) 128.1 (60.0-200.0); Potassium 3.6 mmol/L (3.5-5.5); Triglycerides 49.2 mg/dL (0.00-149.00)
[2021-07-30 11:33] LABS: Chol/HDL Ratio 1.88 Ratio; LDL Cholesterol,Direct Reflex 52.8 mg/dL (0.00-129.00)
[2021-07-30 22:14] VITALS: RESP 16
[2021-07-31] MEDS ORDERED: LORazepam 2 MG/ML INJ ONE (00:08)
[2021-07-31] MEDS: SODIUM CHLORIDE 0.9% 1,000 ML IV SCH (03:00)
[2021-07-31] MEDS: HEPARIN SODIUM,PORCINE/PF 5,000 UNIT/0.5 ML SYRINGE SQ SCH ×2 (03:00→08:14)
[2021-07-31] MEDS: LORazepam 2 MG/ML INJ IV PRN ×2 (03:08→08:09)
[2021-07-31 07:54] VITALS: BP 157/87; PULSE 63; TEMP 97.9
[2021-07-31] MEDS: THIAMINE 100 MG TAB PO SCH (08:14)
[2021-07-31] MEDS: MULTIVITAMINS, THERA 1 EACH TAB PO SCH (08:14)
[2021-07-31] MEDS: PANTOPRAZOLE 40 MG TABLET PO SCH (08:14)
--- NOTE | 2021-07-31 08:18 | US ---
EXAMINATION TYPE: US venous doppler duplex LE DATE OF EXAM: 07/31/2021 6:41 AM COMPARISON: NONE CLINICAL HISTORY: leg swelling. Exam done portable SIDE PERFORMED: Bilateral TECHNIQUE: The lower extremity deep venous system is examined utilizing real time linear array sonog bhavesh with graded compression, doppler sonography and color-flow sonography. VESSELS IMAGED: Common Femoral Vein Deep Femoral Vein Greater Saphenous Vein * Femoral Vein Popliteal Vein Small Saphenous Vein * Proximal Calf Veins (* superficial vessels) Right Leg: Appears negative for DVT Left Leg: Appears negative for DVT Grayscale, color doppler, spectral doppler imaging performed of the deep veins of the bilateral lower extremities. There is normal flow, compressibility, vascular waveforms. IMPRESSION: No ultrasound evidence for acute DVT in either lower extremity.
[2021-07-31] MEDS ORDERED: MAGNESIUM SULFATE-D5W PMX 1 GM in DEXTROSE/WATER 1 100ML.BAG IVPB ONE (11:04)
--- NOTE | 2021-07-31 23:21 | P.DS ---
Providers Date of admission: 07/29/21 10:50 Attending physician: Gabriel Santillan Primary care physician: Veena Mar [facility] Course: Diagnoses: Chest pain. Business Area Director cleared the patient . Resolved upon discharge Elevated d-dimer with negative PE/DVT on CTA/venous Doppler Possible acute gastritis related to alcohol abuse GERD Acute alcohol intoxication Hypomagnesemia Severe alcohol abuse History of alcoholic gastritis Elevated liver enzymes possible alcohol hepatitis Obstructive sleep apnea not on CPAP Anxiety/depression Hospital course: Patient is a 46-year-old male with a known history of alcohol abuse and multiple admissions due to alcohol intoxication and withdrawal symptoms, upper GI bleed due to alcoholic gastritis, spinal stenosis/herniated disc with surgery, obstructive sleep apnea not on CPAP, GERD, osteoarthritis, hypertension, seizure disorder, anxiety/depression and currently heavy alcohol abuse and history of marijuana use presents to ER with complaints of chest discomfort. Chest discomfort is mainly in the mid retrosternal. Also in the epigastric region. Patient has been evaluated by manufacturing planner. For discharge He has negative PE on CTA of the chest and negative DVT on Doppler Lactic acid is low while he was treated with IV fluid Also patient treated with CIWA regimen and thiamine. CIWA score on discharge was 4 Today he feels better, is fully awake and oriented. He denies chest pain or dyspnea. No abdominal pain. No change in urine or bowel habits. No fever. Patient agrees to go home Cardiology team already signed off. Patient is counseled extensively to quit drinking, resources are provided for him since last admission. Problems and management plan were discussed with the patient and he verbalized understanding and acceptance Patient was found stable and can be discharged home however he needs follow-up as an outpatient. Patient was instructed to follow up with PCP Dr. Mar within one week and patient agrees Physical exam Gen: patient is a AAOx3, no distress CVS: S1-S2, RRR, no murmur Lungs: B/L CTA, no wheezing Abdomen: soft, no distention, no tenderness, positive bowel sounds Extremity: no leg edema or induration Time spent more than 35 minutes Patient Condition at Discharge: Fair Plan - Discharge Summary Discharge Rx Participant: No New Discharge Prescriptions: Continue Fluticasone Nasal [place] [Flonase Nasal [place]] 2 spr EA NOSTRIL BID traZODone HCL [Desyrel] 100 mg PO HS PRN PRN Reason: Insomnia ALPRAZolam [Xanax] 1 mg PO BID PRN #10 tab PRN Reason: Anxiety Gabapentin [Neurontin] 600 mg PO TID Celecoxib [CeleBREX] 200 mg PO DAILY PRN PRN Reason: Pain Albuterol Sulfate [Proair Hfa] 1 - 2 puff INHALATION RT-QID PRN PRN Reason: Shortness Of Breath Cholestyramine (with Sugar) [Questran Packet] 4 gm PO BID@1000,1800 PRN #30 packet PRN Reason: Diarrhea Loperamide [Imodium] 2 mg PO QID PRN #20 cap PRN Reason: Diarrhea Acetaminophen Tab [Tylenol] 650 mg PO Q6HR PRN tab PRN Reason: Fever And/ Or Pain Thiamine [Vitamin B-1] 100 mg PO BID-W/MEALS 30 Days #60 tab Pantoprazole Sodium [Protonix] 40 mg PO BID 30 Days #60 tab Nicotine 21Mg/24Hr Patch [Habitrol] 1 patch TRANSDERM DAILY #7 patch Magnesium Oxide [Mag-Ox] 400 mg PO BID 7 Days #14 tablet Discharge Medication List Fluticasone Nasal [place] [Flonase Nasal [place]] 2 spr EA NOSTRIL BID 10/11/19 [History] traZODone HCL [Desyrel] 100 mg PO HS PRN 05/14/20 [History] ALPRAZolam [Xanax] 1 mg PO BID PRN #10 tab 02/25/21 [Rx] Albuterol Sulfate [Proair Hfa] 1 - 2 puff INHALATION RT-QID PRN 07/06/21 [History] Celecoxib [CeleBREX] 200 mg PO DAILY PRN 07/06/21 [History] Gabapentin [Neurontin] 600 mg PO TID 07/06/21 [History] Acetaminophen Tab [Tylenol] 650 mg PO Q6HR PRN tab 07/10/21 [Rx] Cholestyramine (with Sugar) [Questran Packet] 4 gm PO BID@1000,1800 PRN #30 packet 07/10/21 [Rx] Loperamide [Imodium] 2 mg PO QID PRN #20 cap 07/10/21 [Rx] Pantoprazole Sodium [Protonix] 40 mg PO BID 30 Days #60 tab 07/10/21 [Rx] Thiamine [Vitamin B-1] 100 mg PO BID-W/MEALS 30 Days #60 tab 07/10/21 [Rx] Nicotine 21Mg/24Hr Patch [Habitrol] 1 patch TRANSDERM DAILY #7 patch 07/17/21 [Rx] Magnesium Oxide [Mag-Ox] 400 mg PO BID 7 Days #14 tablet 07/28/21 [Rx] Follow up Appointment(s)/Referral(s): Nurys Campos MD [STAFF PHYSICIAN] - 2 Weeks (office will call patient will appointment date and time ) Veena Mar DO [Primary Care Provider] - 08/02/21 10:40 am Patient Instructions/Handouts: Alcohol Intoxication (DC), Abuse of Alcohol (DC), At-Risk Alcohol Use (DC) Discharge/Stand Alone Forms: AA Meetings [place] Discharge Disposition: HOME SELF-CARE
--- NOTE | 2021-08-26 01:04 | P.PN ---
Subjective Progress Note Date: 07/30/21 Patient is a 46-year-old male with a known history of alcohol abuse and multiple admissions due to alcohol intoxication and withdrawal symptoms, upper GI bleed due to alcoholic gastritis, spinal stenosis/herniated disc with surgery, obstructive sleep apnea not on CPAP, GERD, osteoarthritis, hypertension, seizure disorder, anxiety/depression and currently heavy alcohol abuse and history of marijuana use presents to ER with complaints of chest discomfort. Chest discomfort is mainly in the mid retrosternal. Also in the epigastric region. Patient states that he woke up in the morning with chest pain as well as with nausea and diaphoresis. Patient states that he also have some radiation to the left arm. Denies any headache or dizziness. Otherwise patient did drink last night. Denies any orthopnea or PND. EKG showed normal sinus rhythm. Chest x-ray showed no acute cardiopulmonary process. Laboratory data showed WBC 4.6 hemoglobin 12.7 and platelets 130 Sodium 142 potassium 4.8 chloride 107 BUN 16 creatinine 0.62 magnesium 1.3 AST 130 ALT 54 alk phos 46 Troponin x3 - Alcohol level is 247 and lipase level is 119 Coronavirus PCR not detected. 07/30/2021 Patient is currently in the bed. Awake alert and oriented x3. Since is lethargic but more awake compared to yesterday. No complaints of nausea or vomiting. Complains of epigastric abdominal discomfort. No fever no chills. No chest pain or shortness breath. No headache or dizziness or lightheadedness. Laboratory showed WBC 4.23 hemoglobin 11.4 and platelets 124 bicarb is 24.3 BUN 8.9 and creatinine 0.5 LDL 52.8 D-dimer is elevated at 1.[address] angiogram showed no evidence of pulmonary embolism. Atelectasis. Cardiology is on board. Current medications reviewed. Objective - Vital Signs Vital signs: Vital Signs Temp 98.4 F 07/30/21 15:00 Pulse 67 07/30/21 15:00 Resp 16 07/30/21 15:00 BP 148/83 07/30/21 15:00 Pulse Ox 97 07/30/21 15:00 Intake & Output 07/30/21 07/30/21 07/31/21 06:59 18:59 06:59 Weight 113.398 kg Other: # Voids 1 - Exam PHYSICAL EXAMINATION: Patient is lying in the bed comfortably, no acute distress, awake alert and oriented.. Lethargic and confused. HEENT: Normocephalic. Neck is supple. Pupils reactive. Nostrils clear. Oral cavity is moist. Neck reveals no JVD, carotid bruits, or thyromegaly. CHEST EXAMINATION: Trachea is central. Symmetrical expansion. Lung llamas clear to auscultation and percussion. CARDIAC: Normal S1, S2 with no gallops. No murmurs ABDOMEN: Soft. Bowel sounds normal. No organomegaly. No abdominal bruits. Extremities: reveal no edema. No clubbing or cyanosis Neurologically awake, alert, oriented x3 Able to move extremities while in bed. No gross focal neurological deficit. Skin: No rash or skin lesions. Psychiatric: Cooperative. Musculoskeletal: No joint swelling or deformity. Normal range of motion. - Labs CBC & Chem 7: 07/30/21 07:02 07/30/21 07:02 Labs: Abnormal Lab Results - Last 24 Hours (Table) 07/30/21 07/30/21 Range/Units 07:02 07:02 WBC 4.23 L (4.50-10.00) X 10*3/uL RBC 3.80 L (4.40-5.60) X 10*6/uL Hgb 11.4 L (13.0-17.0) g/dL Hct 35.9 L (39.6-50.0) % MCHC 31.8 L (32.0-37.0) g/dL RDW 14.6 H (11.5-14.5) % Plt Count 124 L (140-440) X 10*3/uL Neutrophils # 1.59 L (1.80-7.70) X 10*3/uL Anion Gap 9.70 L (10.00-18.00) mmol/L BUN 8.9 L (9.0-27.0) mg/dL Creatinine 0.5 L (0.6-1.5) mg/dL Calcium 8.0 L (8.7-10.3) mg/dL HDL Cholesterol 73.30 H (40.00-60.00) mg/dL Assessment and Plan Assessment: Chest pain. Ruled out ACS. Likely GI related Atelectasis Possible acute gastritis and esophagitis. GERD Acute alcohol intoxication Hypomagnesemia Severe alcohol abuse History of alcoholic gastritis Elevated liver enzymes possible alcohol hepatitis Obstructive sleep apnea not on CPAP Anxiety/depression DVT prophylaxis Heparin subcu Plan: Patient begun on IV hydration with normal saline. Continue thiamine and multivitamins. Continue telemetry monitoring. Serial troponin x3 -. Cardiology recommends no intervention at this time. 2D echocardiogram showed ejection fraction 55% and no significant valvular abnormalities noted. CT angiogram showed no evidence of pulmonary embolism. Mild atelectasis in the posterior lung base. This appears new compared to old exam. No suspicious pulmonary mass. Fatty infiltration of the liver. Pleurectomy duplex scan was ordered. Continue with PPI and home medications and follow closely. Monitor for alcohol withdrawal symptoms. Time with Patient: Greater than 30
== END 2021-07-31 14:14 | disposition home or self-care (01) ==
LOC: EC 08:31 → 1SOBS 10:50 → 6NMEDSUR 18:34 → 1SOBS 07-30 01:22 → 6NMEDSUR 07-30 06:38 → 4SSUR 07-30 15:36
PROVIDERS: ADMIT Internal Medicine; ATTEND Internal Medicine
DX: R07.89 Other chest pain (principal); F10.129 Alcohol abuse with intoxication, unspecified; J98.11 Atelectasis; R79.89 Other specified abnormal findings of blood chemistry; I10 Essential (primary) hypertension; K21.9 Gastro-esophageal reflux disease without esophagitis; G40.909 Epilepsy, unspecified, not intractable, without status epilepticus; M19.90 Unspecified osteoarthritis, unspecified site; G47.33 Obstructive sleep apnea (adult) (pediatric); I83.93 Asymptomatic varicose veins of bilateral lower extremities; K64.9 Unspecified hemorrhoids; E83.42 Hypomagnesemia; I08.1 Rheumatic disorders of both mitral and tricuspid valves; F32.A Depression, unspecified; F41.9 Anxiety disorder, unspecified; F17.200 Nicotine dependence, unspecified, uncomplicated; K76.0 Fatty (change of) liver, not elsewhere classified; R94.5 Abnormal results of liver function studies; R61 Generalized hyperhidrosis; Y90.8 Blood alcohol level of 240 mg/100 ml or more; Z20.822 Contact with and (suspected) exposure to COVID-19; Z79.1 Long term (current) use of non-steroidal anti-inflammatories (NSAID); Z79.899 Other long term (current) drug therapy; Z88.1 Allergy status to other antibiotic agents; Z88.8 Allergy status to other drugs, medicaments and biological substances; Z87.01 Personal history of pneumonia (recurrent); Z87.19 Personal history of other diseases of the digestive system; Z90.49 Acquired absence of other specified parts of digestive tract; Z98.890 Other specified postprocedural states; Z82.0 Family history of epilepsy and other diseases of the nervous system; Z80.8 Family history of malignant neoplasm of other organs or systems; Z81.8 Family history of other mental and behavioral disorders; Z82.49 Family history of ischemic heart disease and other diseases of the circulatory system; Z82.61 Family history of arthritis
CPT/HCPCS: 96376 ×3; 96361 ×2; 96366 ×3; 96372 ×2; 96365; 96375; 99285; 36415; 93005; 93306; 85379; 80061; 80053; 80048; 82150; 83605; 83690; 83735; 84484; 85025 ×2; 85610; 85730; 83721; 87635; 71046; 93970; 71275; G0378 ×4; G0480; J2060 ×3; J3475 ×3; Q9967; J1644 ×2; 80320

== ENCOUNTER 2021-08-02 08:53 | Emergency (ER) | payer OTHER ==
[2021-08-02] MEDS ORDERED: LORazepam 2 MG/ML INJ IV PRN ×2 (09:02)
[2021-08-02] MEDS ORDERED: THIAMINE 100 MG/ML 2 ML VIAL IM STA (09:02)
[2021-08-02] MEDS ORDERED: SODIUM CHLORIDE 0.9% 1,000 ML IV STA (09:02)
[2021-08-02 09:05] VITALS: RESP 18
--- NOTE | 2021-08-02 09:10 | ED ---
General Adult HPI - General Stated complaint: ETOH withdrawals Time Seen by Provider: 08/02/21 08:58 Source: patient, EMS, RN notes reviewed, old records reviewed - History of Present Illness Initial comments: 46-year-old male, alert and oriented presents to the emergency room with complaints of alcohol withdrawal. Patient states that he normally drinks a gallon of vodka a day. He has been hospitalized multiple times this month for alcohol withdrawal. He states that he is planning on getting care for his alcohol abuse and "need to pay one more bill" first. He states that today he has a headache with epigastric abdominal pain and nausea and vomiting that started at around 0730. His last drink was yesterday. Denies any fevers or difficulty in breathing. States that his last fall was 5 days ago related to his drinking does not know if he hit his head -: hour(s) (2) Location: head (diffuse), abdomen (Epigastric) Radiation: non-radiation Severity scale (1-10): 8 (headache) Quality: aching Consistency: constant Improves with: none Worsens with: none Associated Symptoms: headaches, nausea/vomiting Treatments Prior to Arrival: other (zofran by ems) - Related Data Home Medications Medication Instructions Recorded Confirmed Fluticasone Nasal [place] [Flonase 2 spr EA NOSTRIL BID 10/11/19 08/02/21 Nasal [place]] traZODone HCL [Desyrel] 100 mg PO HS PRN 05/14/20 08/02/21 Albuterol Sulfate [Proair Hfa] 1 - 2 puff INHALATION RT-QID PRN 07/06/21 08/02/21 Celecoxib [CeleBREX] 200 mg PO DAILY PRN 07/06/21 08/02/21 Gabapentin [Neurontin] 600 mg PO TID 07/06/21 08/02/21 Nicotine 21Mg/24Hr Patch [Habitrol] 1 patch TRANSDERM DAILY PRN 08/02/21 08/02/21 Previous Rx's Medication Instructions Recorded ALPRAZolam [Xanax] 1 mg PO BID PRN #10 tab 02/25/21 Acetaminophen Tab [Tylenol] 650 mg PO Q6HR PRN tab 07/10/21 Cholestyramine (with Sugar) 4 gm PO BID@1000,1800 PRN #30 07/10/21 [Questran Packet] packet Loperamide [Imodium] 2 mg PO QID PRN #20 cap 07/10/21 Pantoprazole Sodium [Protonix] 40 mg PO BID 30 Days #60 tab 07/10/21 Thiamine [Vitamin B-1] 100 mg PO BID-W/MEALS 30 Days #60 07/10/21 tab Magnesium Oxide [Mag-Ox] 400 mg PO BID 7 Days #14 tablet 07/28/21 Allergies Allergy/AdvReac Type Severity Reaction Status Date / Time Cephalosporins Allergy Severe Anaphylaxis Verified 08/02/21 11:42 diphenhydramine HCl Allergy Severe Anaphylaxis Verified 08/02/21 11:42 [From Benadryl] divalproex sodium Allergy Severe Anaphylaxis Verified 08/02/21 11:42 [From Depakote] ceftriaxone [From Rocephin] Allergy Anaphylaxis Verified 08/02/21 11:42 cephalexin [From Keflex] Allergy Anaphylaxis Verified 08/02/21 11:42 droperidol Allergy Anaphylaxis Verified 08/02/21 11:42 lisinopril Allergy Anaphylaxis Verified 08/02/21 11:42 Review of Systems ROS Statement: Those systems with pertinent positive or pertinent negative responses have been documented in the HPI. ROS Other: All systems not noted in ROS Statement are negative. Past Medical History Past Medical History: GERD/Reflux, GI Bleed, Hypertension, Liver Disease, Osteoarthritis (OA), Pneumonia, Seizure Disorder, Sleep Apnea/CPAP/BIPAP, Vascu lar Disorder Additional Past Medical History / Comment(s): Pt recently admitted to [facility] on 07/26/21 with alcohol intoxication/abuse/fall/marijuana abuse. Other hx: Occasional bilateral pedal edema if stands long, arthritis possibly in back/ribs, MILIND without device, ETOH abuse, alcoholic seizures/blackouts/fainting 2017, alcoholic hepatitis, alcoholic gastritis, upper GI bleed, hypomagnesemia, spinal stenosis/herniated disc with surgery, bilateral varicose veins, hemo rrhoids History of Any Multi-Drug Resistant Organisms: None Reported Past Surgical History: Appendectomy, Back Surgery, Tonsillectomy Additional Past Surgical History / Comment(s): bilateral discectomy, discectomy L5-S1, EGD Past Anesthesia/Blood Transfusion Reactions: Motion Sickness Smoking Status: Current every day smoker - Past Family History Father Family Medical History: Cancer, Dementia, Neurologic Disorder Additional Family Medical History / Comment(s): melanoma, parkinsons, schzop hrenic Mother Family Medical History: Hypertension, Musculoskeletal Disorder, Neurologic Disorder, Osteoarthritis (OA) Additional Family Medical History / Comment(s): Mother of motor neuron disease at the age of 78yrs. General Exam Limitations: no limitations General appearance: alert, in no apparent distress Head exam: Present: atraumatic, normocephalic, normal inspection Expanded Head exam: Absent: laceration, abrasion, contusion, hematoma, raccoon eyes, ventura's sign, general tenderness, tenderness of temporal artery Eye exam: Present: normal appearance, PERRL, EOMI. Absent: scleral icterus, conjunctival injection, periorbital swelling Pupils: Present: normal accommodation Neck exam: Present: normal inspection, full ROM. Absent: tenderness, meningismus Respiratory exam: Present: normal lung sounds bilaterally. Absent: respiratory distress, wheezes, rales, rhonchi, stridor, chest wall tenderness, accessory muscle use, decreased breath sounds Cardiovascular Exam: Present: regular rate, normal rhythm, normal heart sounds GI/Abdominal exam: Present: soft. Absent: distended, tenderness, guarding, rebound, rigid, normal bowel sounds Extremities exam: Absent: pedal edema Back exam: Present: full ROM, other (Ecchymosis left upper and lower and right lower back ). Absent: tenderness, CVA tenderness (R), CVA tenderness (L) Neurological exam: Present: alert, oriented X3, CN II-XII intact, normal gait Psychiatric exam: Present: normal affect, normal mood Skin exam: Present: warm, dry. Absent: cyanosis, diaphoretic, petechiae, pallor Course Vital Signs 08/02/21 08/02/21 08/02/21 08:54 09:59 11:14 Temperature 98.4 F Pulse Rate 86 78 70 Respiratory 18 18 18 Rate Blood Pressure 138/81 135/81 133/92 O2 Sat by Pulse 96 97 98 Oximetry 08/02/21 12:09 Temperature 98.5 F Pulse Rate 84 Respiratory 18 Rate Blood Pressure 142/87 O2 Sat by Pulse 98 Oximetry Medical Decision Making - Medical Decision Making 46-year-old male, alert and oriented presents with complaints of alcohol withdrawal. Patient states that he normally drinks a gallon of vodka a day. He has been hospitalized multiple times this month for alcohol withdrawal. CT of the brain shows no intracranial hemorrhage mass or midline shift. EtOH level 0.229. Magnesium is 1.2 and was given replacement in the emergency room. Patient has been admitted multiple times and knows that he needs outpatient rehab. I did discuss the case with Dr. Ayers who states he's had this rehab conversation with the patient as well. Patient ambulatory with a steady gait. He is alert and oriented 4. He states that he is going to go to [facility] for his rehab and he plans on doing that in the next few days. Patient is clinically sober. Vital signs are stable. Case discussed with Dr. Claudio. Patient was discharged home by cab. - Lab Data Result diagrams: 08/02/21 09:10 08/02/21 09:10 Lab Results 08/02/21 08/02/21 08/02/21 Range/Units 09:10 09:10 09:10 WBC 4.3 (3.8-10.6) k/uL RBC 4.23 L (4.30-5.90) m/uL Hgb 13.2 (13.0-17.5) gm/dL Hct 40.9 (39.0-53.0) % MCV 96.7 (80.0-100.0) fL MCH 31.3 (25.0-35.0) pg MCHC 32.4 (31.0-37.0) g/dL RDW 14.5 (11.5-15.5) % Plt Count 221 (150-450) k/uL MPV 7.2 Neutrophils % 48 % Lymphocytes % 40 % Monocytes % 7 % Eosinophils % 2 % Basophils % 1 % Neutrophils # 2.1 (1.3-7.7) k/uL Lymphocytes # 1.7 (1.0-4.8) k/uL Monocytes # 0.3 (0-1.0) k/uL Eosinophils # 0.1 (0-0.7) k/uL Basophils # 0.0 (0-0.2) k/uL PT 9.8 (9.0-12.0) sec INR 0.9 (<1.2) Sodium (137-145) mmol/L Potassium (3.5-5.1) mmol/L Chloride (98-107) mmol/L Carbon Dioxide (22-30) mmol/L Anion Gap mmol/L BUN (9-20) mg/dL Creatinine (0.66-1.25) mg/dL Est GFR (CKD-EPI)AfAm (>60 ml/min/1.73 sqM) Est GFR (CKD-EPI)NonAf (>60 ml/min/1.73 sqM) Glucose (74-99) mg/dL Calcium (8.4-10.2) mg/dL Phosphorus (2.5-4.5) mg/dL Magnesium (1.6-2.3) mg/dL Total Bilirubin (0.2-1.3) mg/dL AST (17-59) U/L ALT (4-49) U/L Alkaline Phosphatase (38-126) U/L Total Protein (6.3-8.2) g/dL Albumin (3.5-5.0) g/dL Amylase (30-110) U/L Lipase (23-300) U/L Urine Color Yellow Urine Appearance Clear (Clear) Urine pH 5.0 (5.0-8.0) Ur Specific [place] 1.018 (1.001-1.035) Urine Protein Trace H (Negative) Urine Glucose (UA) Negative (Negative) Urine Ketones Negative (Negative) Urine Blood Negative (Negative) Urine Nitrite Negative (Negative) Urine Bilirubin Negative (Negative) Urine Urobilinogen <2.0 (<2.0) mg/dL Ur Leukocyte Esterase Negative (Negative) Serum Alcohol mg/dL 08/02/21 Range/Units 09:10 WBC (3.8-10.6) k/uL RBC (4.30-5.90) m/uL Hgb (13.0-17.5) gm/dL Hct (39.0-53.0) % MCV (80.0-100.0) fL MCH (25.0-35.0) pg MCHC (31.0-37.0) g/dL RDW (11.5-15.5) % Plt Count (150-450) k/uL MPV Neutrophils % % Lymphocytes % % Monocytes % % Eosinophils % % Basophils % % Neutrophils # (1.3-7.7) k/uL Lymphocytes # (1.0-4.8) k/uL Monocytes # (0-1.0) k/uL Eosinophils # (0-0.7) k/uL Basophils # (0-0.2) k/uL PT (9.0-12.0) sec INR (<1.2) Sodium 144 (137-145) mmol/L Potassium 4.7 (3.5-5.1) mmol/L Chloride 107 (98-107) mmol/L Carbon Dioxide 22 (22-30) mmol/L Anion Gap 15 mmol/L BUN 10 (9-20) mg/dL Creatinine 0.77 (0.66-1.25) mg/dL Est GFR (CKD-EPI)AfAm >90 (>60 ml/min/1.73 sqM) Est GFR (CKD-EPI)NonAf >90 (>60 ml/min/1.73 sqM) Glucose 76 (74-99) mg/dL Calcium 9.1 (8.4-10.2) mg/dL Phosphorus 4.4 (2.5-4.5) mg/dL Magnesium 1.2 L (1.6-2.3) mg/dL Total Bilirubin 1.0 (0.2-1.3) mg/dL AST 190 H (17-59) U/L ALT 93 H (4-49) U/L Alkaline Phosphatase 63 (38-126) U/L Total Protein 7.3 (6.3-8.2) g/dL Albumin 4.6 (3.5-5.0) g/dL Amylase 64 (30-110) U/L Lipase 64 (23-300) U/L Urine Color Urine Appearance (Clear) Urine pH (5.0-8.0) Ur Specific [place] (1.001-1.035) Urine Protein (Negative) Urine Glucose (UA) (Negative) Urine Ketones (Negative) Urine Blood (Negative) Urine Nitrite (Negative) Urine Bilirubin (Negative) Urine Urobilinogen (<2.0) mg/dL Ur Leukocyte Esterase (Negative) Serum Alcohol 229 H* mg/dL Disposition Clinical Impression: Alcohol intoxication Disposition: HOME SELF-CARE Condition: Good Instructions (If sedation given, give patient instructions): Alcohol Intoxication (ED) Additional Instructions: Stop drinking alcohol and follow up with [facility] for rehab as referred in the past. Is patient prescribed a controlled substance at d/c from ED?: No Referrals: Veena Bynum DO [Primary Care Provider] - 1-2 days Time of Disposition: 11:36
[2021-08-02] MEDS ORDERED: PANTOPRAZOLE 40 MG/10 ML VIAL IVP STA (09:11)
[2021-08-02] MEDS ORDERED: ONDANSETRON 4 MG/2 ML VIAL IVP STA (09:14)
[2021-08-02 09:26] LABS: Basophils % (A) 1 %; Eosinophils # (A) 0.1 k/uL (0-0.7); Eosinophils % (A) 2 %; HCT 40.9 % (39.0-53.0); HGB 13.2 gm/dL (13.0-17.5); Lymphocytes # (A) 1.7 k/uL (1.0-4.8); Lymphocytes % (A) 40 %; MCH 31.3 pg (25.0-35.0); MCHC 32.4 g/dL (31.0-37.0); MCV 96.7 fL (80.0-100.0); Mean Platelet Volume 7.2; Monocytes # (A) 0.3 k/uL (0-1.0); Monocytes % (A) 7 %; Neutrophils # (A) 2.1 k/uL (1.3-7.7); Neutrophils % (A) 48 %; Platelet Count 221 k/uL (150-450); RBC 4.23 m/uL (4.30-5.90); RDW 14.5 % (11.5-15.5); WBC 4.3 k/uL (3.8-10.6)
[2021-08-02 09:39] LABS: ALT 93 U/L (4-49); AST 190 U/L (17-59); Albumin 4.6 g/dL (3.5-5.0); Alkaline Phosphatase 63 U/L (38-126); Amylase 64 U/L (30-110); Anion Gap 15 mmol/L; Blood Urea Nitrogen 10 mg/dL (9-20); Calcium 9.1 mg/dL (8.4-10.2); Carbon Dioxide 22 mmol/L (22-30); Chloride 107 mmol/L (98-107); Glucose 76 mg/dL (74-99); Lipase 64 U/L (23-300); Magnesium 1.2 mg/dL (1.6-2.3); Phosphorus 4.4 mg/dL (2.5-4.5); Potassium 4.7 mmol/L (3.5-5.1); Sodium 144 mmol/L (137-145); Total Protein 7.3 g/dL (6.3-8.2)
[2021-08-02 09:40] LABS: African American GFR (CKD) >90 (>60 ml/min/1.73 sqM); Non-African American GFR(CKD) >90 (>60 ml/min/1.73 sqM)
[2021-08-02] MEDS: LORazepam 2 MG/ML INJ IV PRN ×2 (09:49→10:56)
[2021-08-02 09:54] LABS: Alcohol 229 mg/dL
--- NOTE | 2021-08-02 09:55 | CT ---
EXAMINATION TYPE: CT brain wo con DATE OF EXAM: 08/02/2021 COMPARISON: 07/22/2021 HISTORY: headache CT DLP: 1055.4 mGycm. Automated Exposure Control for Dose Reduction was Utilized. TECHNIQUE: CT scan of the head is performed without contrast. FINDINGS: There is no acute intracranial hemorrhage, mass effect, or midline shift identified. The ventricles and sulci are within normal limits in size. Intracranial atherosclerotic disease similar to the prior exam carotid arteries. Craniocervical junction maintained. Partially empty sella turcica. The globes are intact and the visu alized sinuses are clear. Calcification the basal ganglia. Mild frontal lobe atrophy seen. IMPRESSION: 1. No acute intracranial hemorrhage, mass effect, or midline shift is seen.
[2021-08-02 10:00] LABS: Appearance,Urine Clear (Clear); Bilirubin,Urine Negative (Negative); Blood,Urine Negative (Negative); Color,Urine Yellow; Glucose,Urine (UA) Negative (Negative); Ketones,Urine Negative (Negative); Leukocyte Esterase,Urine Negative (Negative); Nitrite,Urine Negative (Negative); Protein,Urine Trace (Negative); Specific Gravity,Urine 1.018 (1.001-1.035); Urobilinogen,Urine <2.0 mg/dL (<2.0)
[2021-08-02] MEDS ORDERED: MAGNESIUM OXIDE 400 MG TAB PO STA (10:05)
[2021-08-02 10:14] LABS: INR 0.9 (<1.2); Prothrombin Time 9.8 sec (9.0-12.0)
[2021-08-02] MEDS ORDERED: LORazepam 2 MG/ML INJ IV STA (11:50)
[2021-08-02 12:11] VITALS: BP 142/87; PULSE 84; TEMP 98.5
[2021-08-02] MEDS ORDERED: THIAMINE 100 MG TAB PO SCH (17:30)
== END 2021-08-02 12:10 | disposition home or self-care (01) ==
LOC: EC 08:53
DX: F10.129 Alcohol abuse with intoxication, unspecified (principal); K21.9 Gastro-esophageal reflux disease without esophagitis; I10 Essential (primary) hypertension; M19.90 Unspecified osteoarthritis, unspecified site; F17.200 Nicotine dependence, unspecified, uncomplicated; Y90.7 Blood alcohol level of 200-239 mg/100 ml; Z88.1 Allergy status to other antibiotic agents; Z90.49 Acquired absence of other specified parts of digestive tract
CPT/HCPCS: 99284; 96374; 96375 ×2; 96376; 96361; 96372; 36415; 80053; 82150; 83690; 83735; 84100; 85025; 85610; 81003; 70450; G0480; J2060; J3411; J2405; C9113; 80320

== ENCOUNTER 2021-08-03 18:39 | Observation (INO) | payer OTHER ==
[2021-08-03 19:14] LABS: Basophils % (A) 1 %; Eosinophils # (A) 0.1 k/uL (0-0.7); Eosinophils % (A) 2 %; HCT 41.6 % (39.0-53.0); HGB 13.3 gm/dL (13.0-17.5); Lymphocytes # (A) 1.1 k/uL (1.0-4.8); Lymphocytes % (A) 24 %; MCH 30.7 pg (25.0-35.0); MCHC 31.9 g/dL (31.0-37.0); MCV 96.3 fL (80.0-100.0); Mean Platelet Volume 7.1; Monocytes # (A) 0.4 k/uL (0-1.0); Monocytes % (A) 8 %; Neutrophils # (A) 2.7 k/uL (1.3-7.7); Neutrophils % (A) 62 %; Platelet Count 222 k/uL (150-450); RBC 4.33 m/uL (4.30-5.90); RDW 14.4 % (11.5-15.5); WBC 4.4 k/uL (3.8-10.6)
[2021-08-03 19:21] LABS: INR 0.9 (<1.2); Prothrombin Time 10.1 sec (9.0-12.0)
[2021-08-03] MEDS ORDERED: THIAMINE 100 MG/ML 2 ML VIAL IM STA (19:21)
[2021-08-03] MEDS ORDERED: LORazepam 2 MG/ML INJ IV PRN ×2 (19:21)
[2021-08-03 19:25] LABS: ALT 127 U/L (4-49); AST 281 U/L (17-59); African American GFR (CKD) >90 (>60 ml/min/1.73 sqM); Albumin 4.6 g/dL (3.5-5.0); Alkaline Phosphatase 60 U/L (38-126); Amylase 63 U/L (30-110); Anion Gap 17 mmol/L; Blood Urea Nitrogen 10 mg/dL (9-20); Calcium 8.4 mg/dL (8.4-10.2); Carbon Dioxide 23 mmol/L (22-30); Chloride 103 mmol/L (98-107); Glucose 78 mg/dL (74-99); Lipase 84 U/L (23-300); Magnesium 1.4 mg/dL (1.6-2.3); Non-African American GFR(CKD) >90 (>60 ml/min/1.73 sqM); Phosphorus 3.9 mg/dL (2.5-4.5); Potassium 4.6 mmol/L (3.5-5.1); Sodium 143 mmol/L (137-145); Total Bilirubin 1.2 mg/dL (0.2-1.3); Total Protein 7.2 g/dL (6.3-8.2)
[2021-08-03 19:50] LABS: Alcohol 427 mg/dL
--- NOTE | 2021-08-03 20:00 | CT ---
EXAMINATION TYPE: CT brain cspine wo con DATE OF EXAM: 08/03/2021 COMPARISON: 12/14/2020 HISTORY: fall etoh CT DLP: 1432.4 mGycm Automated exposure control for dose reduction was used. Ventricles have fairly normal size. There is no mass effect or midline shift. There is no sign of int racranial hemorrhage. The calvarium is intact. The skull base is intact. There is normal aeration of the mastoid sinuses. Cervical vertebra have normal alignment. There is degenerative hypertrophic disc changes from C3 to C 7. Posterior elements are intact. Facet joints are intact. There is no evidence of a fracture. IMPRESSION: Spondylotic changes in the cervical spine. No fracture. Negative CT scan of the brain. No adverse change compared to the old exam.
--- NOTE | 2021-08-03 20:07 | ED ---
General Adult HPI - General Chief complaint: Alcohol Stated complaint: fall, ETOH Time Seen by Provider: 08/03/21 19:02 Source: patient, EMS Mode of arrival: EMS Limitations: no limitations - History of Present Illness Initial comments: This 46-year-old male presents emergency department with past medical history of hypertension, osteoarthritis, seizure disorder, alcohol withdrawal presents to the emergency department after a fall earlier today. Patient states he is trying to get dressed when he lost balance and fell, hitting his head on a chair. Patient is unsure if he lost consciousness. Patient is a poor historian and appears to be intoxicated at this time. Patient states he does drink vodka daily. Patient requesting we follow [facility] protocol. Patient states he does have a mild headache. He denies any chest pain, vomiting and shortness of breath, change in bowel or bladder, change in appetite, dizziness, lightheadedness. - Related Data Home Medications Medication Instructions Recorded Confirmed Fluticasone Nasal [place] [Flonase 2 spr EA NOSTRIL BID 10/11/19 08/02/21 Nasal [place]] traZODone HCL [Desyrel] 100 mg PO HS PRN 05/14/20 08/02/21 Albuterol Sulfate [Proair Hfa] 1 - 2 puff INHALATION RT-QID PRN 07/06/21 08/02/21 Celecoxib [CeleBREX] 200 mg PO DAILY PRN 07/06/21 08/02/21 Gabapentin [Neurontin] 600 mg PO TID 07/06/21 08/02/21 Nicotine 21Mg/24Hr Patch [Habitrol] 1 patch TRANSDERM DAILY PRN 08/02/21 08/02/21 Previous Rx's Medication Instructions Recorded ALPRAZolam [Xanax] 1 mg PO BID PRN #10 tab 02/25/21 Acetaminophen Tab [Tylenol] 650 mg PO Q6HR PRN tab 07/10/21 Cholestyramine (with Sugar) 4 gm PO BID@1000,1800 PRN #30 07/10/21 [Questran Packet] packet Loperamide [Imodium] 2 mg PO QID PRN #20 cap 07/10/21 Pantoprazole Sodium [Protonix] 40 mg PO BID 30 Days #60 tab 07/10/21 Thiamine [Vitamin B-1] 100 mg PO BID-W/MEALS 30 Days #60 07/10/21 tab Magnesium Oxide [Mag-Ox] 400 mg PO BID 7 Days #14 tablet 07/28/21 Allergies Allergy/AdvReac Type Severity Reaction Status Date / Time Cephalosporins Allergy Severe Anaphylaxis Verified 08/03/21 21:24 diphenhydramine HCl Allergy Severe Anaphylaxis Verified 08/03/21 21:24 [From Benadryl] divalproex sodium Allergy Severe Anaphylaxis Verified 08/03/21 21:24 [From Depakote] ceftriaxone [From Rocephin] Allergy Anaphylaxis Verified 08/03/21 21:24 cephalexin [From Keflex] Allergy Anaphylaxis Verified 08/03/21 21:24 droperidol Allergy Anaphylaxis Verified 08/03/21 21:24 lisinopril Allergy Anaphylaxis Verified 08/03/21 21:24 Review of Systems ROS Statement: Those systems with pertinent positive or pertinent negative responses have been documented in the HPI. ROS Other: All systems not noted in ROS Statement are negative. Past Medical History Past Medical History: GERD/Reflux, GI Bleed, Hypertension, Liver Disease, Osteoarthritis (OA), Pneumonia, Seizure Disorder, Sleep Apnea/CPAP/BIPAP, Vas cular Disorder Additional Past Medical History / Comment(s): Pt recently admitted to [facility] on 07/26/21 with alcohol intoxication/abuse/fall/marijuana abuse. Other hx: Occasional bilateral pedal edema if stands long, arthritis possibly in back/ribs, MILIND without device, ETOH abuse, alcoholic seizures/blackouts/fainting 2017, alcoholic hepatitis, alcoholic gastritis, upper GI bleed, hypomagnesemia, spinal stenosis/herniated disc with surgery, bilateral varicose veins, he morrhoids History of Any Multi-Drug Resistant Organisms: None Reported Past Surgical History: Appendectomy, Back Surgery, Tonsillectomy Additional Past Surgical History / Comment(s): bilateral discectomy, discectomy L5-S1, EGD Past Anesthesia/Blood Transfusion Reactions: Motion Sickness Past Psychological History: Anxiety, Depression Smoking Status: Current every day smoker Past Alcohol Use History: Abuse, Heavy Past Drug Use History: None Reported - Past Family History Father Family Medical History: Cancer, Dementia, Neurologic Disorder Additional Family Medical History / Comment(s): melanoma, parkinsons, schzo phrenic Mother Family Medical History: Hypertension, Musculoskeletal Disorder, Neurologic Disorder, Osteoarthritis (OA) Additional Family Medical History / Comment(s): Mother of motor neuron disease at the age of 78yrs. General Exam Limitations: no limitations General appearance: alert, appears intoxicated (CIWA score 8) Head exam: Present: atraumatic, normocephalic Eye exam: Present: normal appearance, PERRL, EOMI Pupils: Present: normal accommodation ENT exam: Present: mucous membranes moist Neck exam: Present: normal inspection, full ROM. Absent: tenderness Respiratory exam: Present: normal lung sounds bilaterally. Absent: respiratory distress, wheezes, rales, rhonchi, stridor Cardiovascular Exam: Present: regular rate, normal rhythm, normal heart sounds. Absent: systolic murmur, diastolic murmur, rubs, gallop, clicks GI/Abdominal exam: Present: soft, normal bowel sounds. Absent: distended, tenderness, guarding, rebound, rigid Extremities exam: Present: normal inspection, full ROM, normal capillary refill. Absent: tenderness, pedal edema, joint swelling, calf tenderness Back exam: Present: full ROM. Absent: tenderness, CVA tenderness (R), CVA tenderness (L), paraspinal tenderness, vertebral tenderness Neurological exam: Present: alert, oriented X3, CN II-XII intact, other (Patient able to perform [id number] and 6 cardinal signs of days. Patient is aware of where he is at, his name, the year and president. Patient is neurologically intact.). Absent: motor sensory deficit Psychiatric exam: Present: normal affect, normal mood Skin exam: Present: warm, dry, intact, normal color. Absent: rash Course Vital Signs 08/03/21 08/03/21 18:40 20:56 Temperature 98.8 F Pulse Rate 89 86 Respiratory 18 18 Rate Blood Pressure 126/75 124/71 O2 Sat by Pulse 97 95 Oximetry EKG Findings - EKG Comments: EKG Findings:: EKG impression sinus rhythm. Ventricular rate 80 bpm. MD interval 183. QRS duration 121. QT/QTc 418/454. No ST elevations or depressions noted. No change prior EKG Medical Decision Making - Medical Decision Making This 46-year-old male presents emergency Department with alcohol intoxication and a fall, hitting his head. CT head and C-spine without any acute abnormalities. Labs with elevated AST and ALTs. Serum alcohol 427. [facility] protocol is being followed. Spoke with Kris Kamara [employer], who agreed to accept patient, patient admitted to Dr. Arias's service. Motrin given for patient's headache. Discussed case with my attending, . Patient verbally agreed to plan. - Lab Data Result diagrams: 08/03/21 19:06 08/03/21 19:06 Lab Results 08/03/21 08/03/21 08/03/21 Range/Units 19:06 19:06 19:06 WBC 4.4 (3.8-10.6) k/uL RBC 4.33 (4.30-5.90) m/uL Hgb 13.3 (13.0-17.5) gm/dL Hct 41.6 (39.0-53.0) % MCV 96.3 (80.0-100.0) fL MCH 30.7 (25.0-35.0) pg MCHC 31.9 (31.0-37.0) g/dL RDW 14.4 (11.5-15.5) % Plt Count 222 (150-450) k/uL MPV 7.1 Neutrophils % 62 % Lymphocytes % 24 % Monocytes % 8 % Eosinophils % 2 % Basophils % 1 % Neutrophils # 2.7 (1.3-7.7) k/uL Lymphocytes # 1.1 (1.0-4.8) k/uL Monocytes # 0.4 (0-1.0) k/uL Eosinophils # 0.1 (0-0.7) k/uL Basophils # 0.0 (0-0.2) k/uL PT 10.1 (9.0-12.0) sec INR 0.9 (<1.2) Sodium 143 (137-145) mmol/L Potassium 4.6 (3.5-5.1) mmol/L Chloride 103 (98-107) mmol/L Carbon Dioxide 23 (22-30) mmol/L Anion Gap 17 mmol/L BUN 10 (9-20) mg/dL Creatinine 0.69 (0.66-1.25) mg/dL Est GFR (CKD-EPI)AfAm >90 (>60 ml/min/1.73 sqM) Est GFR (CKD-EPI)NonAf >90 (>60 ml/min/1.73 sqM) Glucose 78 (74-99) mg/dL Calcium 8.4 (8.4-10.2) mg/dL Phosphorus 3.9 (2.5-4.5) mg/dL Magnesium 1.4 L (1.6-2.3) mg/dL Total Bilirubin 1.2 (0.2-1.3) mg/dL AST 281 H (17-59) U/L ALT 127 H (4-49) U/L Alkaline Phosphatase 60 (38-126) U/L Total Protein 7.2 (6.3-8.2) g/dL Albumin 4.6 (3.5-5.0) g/dL Amylase 63 (30-110) U/L Lipase 84 (23-300) U/L Serum Alcohol 427 H* mg/dL Coronavirus (PCR) (Not Detectd) 08/03/21 Range/Units 20:54 WBC (3.8-10.6) k/uL RBC (4.30-5.90) m/uL Hgb (13.0-17.5) gm/dL Hct (39.0-53.0) % MCV (80.0-100.0) fL MCH (25.0-35.0) pg MCHC (31.0-37.0) g/dL RDW (11.5-15.5) % Plt Count (150-450) k/uL MPV Neutrophils % % Lymphocytes % % Monocytes % % Eosinophils % % Basophils % % Neutrophils # (1.3-7.7) k/uL Lymphocytes # (1.0-4.8) k/uL Monocytes # (0-1.0) k/uL Eosinophils # (0-0.7) k/uL Basophils # (0-0.2) k/uL PT (9.0-12.0) sec INR (<1.2) Sodium (137-145) mmol/L Potassium (3.5-5.1) mmol/L Chloride (98-107) mmol/L Carbon Dioxide (22-30) mmol/L Anion Gap mmol/L BUN (9-20) mg/dL Creatinine (0.66-1.25) mg/dL Est GFR (CKD-EPI)AfAm (>60 ml/min/1.73 sqM) Est GFR (CKD-EPI)NonAf (>60 ml/min/1.73 sqM) Glucose (74-99) mg/dL Calcium (8.4-10.2) mg/dL Phosphorus (2.5-4.5) mg/dL Magnesium (1.6-2.3) mg/dL Total Bilirubin (0.2-1.3) mg/dL AST (17-59) U/L ALT (4-49) U/L Alkaline Phosphatase (38-126) U/L Total Protein (6.3-8.2) g/dL Albumin (3.5-5.0) g/dL Amylase (30-110) U/L Lipase (23-300) U/L Serum Alcohol mg/dL Coronavirus (PCR) Detected A (Not Detectd) Disposition Clinical Impression: Alcohol intoxication, Fall Disposition: ADMITTED IP TO THIS HOSP Condition: Serious Referrals: Veena Bynum DO [Primary Care Provider] - 1-2 days Time of Disposition: 21:05
[2021-08-03] MEDS ORDERED: MAGNESIUM OXIDE 400 MG TAB PO STA (20:37)
[2021-08-03] MEDS ORDERED: IBUPROFEN 600 MG TAB PO STA (20:56)
[2021-08-03] MEDS ORDERED: NALOXONE 0.4 MG/ML 1 ML VIAL IV PRN (21:14)
[2021-08-03] MEDS ORDERED: SODIUM CHLORIDE 0.9% 1,000 ML IV SCH (21:15)
[2021-08-03] MEDS ORDERED: ONDANSETRON 4 MG/2 ML VIAL IVP PRN (21:16)
--- NOTE | 2021-08-03 21:57 | P.HPIM ---
History of Present Illness H&P Date: 08/03/21 Chief Complaint: Fall 46-year-old male presents emergency department with past medical history of hypertension, osteoarthritis, seizure disorder, alcohol withdrawal presents to the emergency department after a fall earlier today. Patient states he is trying to get dressed when he lost balance and fell, hitting his head on a chair. Patient is unsure if he lost consciousness. Patient is a poor historian and appears to be intoxicated at this time. Patient states he does drink vodka daily. Patient requesting we follow CIWA protocol. Patient states he does have a mild headache. He denies any chest pain, vomiting and shortness of breath, change in bowel or bladder, change in appetite, dizziness, lightheadedness. EKG Findings:: EKG impression sinus rhythm. Ventricular rate 80 bpm. [place] interval 183. QRS duration 121. QT/QTc 418/454. No ST elevations or depressions noted. No change prior EKG Blood work reveals WBC 4.4, hemoglobin 13.3, hematocrit 41.6 and platelet count of 222; INR at 0.9; sodium 143, potassium 4.6, BUN/creatinine of 10/0.69; AST/ALT elevated at 281/127; serum alcohol level at 427 CT of head and C-spine completed in ED was unremarkable Review of Systems ROS unobtainable: due to mental status Past Medical History Past Medical History: GERD/Reflux, GI Bleed, Hypertension, Liver Disease, Osteoarthritis (OA), Pneumonia, Seizure Disorder, Sleep Apnea/CPAP/BIPAP, Vascular Disorder Additional Past Medical History / Comment(s): Pt recently admitted to [facility] on 07/26/21 with alcohol intoxication/abuse/fall/marijuana abuse. Other hx: Occasional bilateral pedal edema if stands long, arthritis possibly in b ack/ribs, MILIND without device, ETOH abuse, alcoholic seizures/blackouts/fainting 2017, alcoholic hepatitis, alcoholic gastritis, upper GI bleed, hypomagnesemia, spinal stenosis/herniated disc with surgery, bilateral varicose veins, hemorrhoids History of Any Multi-Drug Resistant Organisms: None Reported Past Surgical History: Appendectomy, Back Surgery, Tonsillectomy Additional Past Surgical History / Comment(s): bilateral discectomy, discectomy L5-S1, EGD Past Anesthesia/Blood Transfusion Reactions: Motion Sickness Past Psychological History: Anxiety, Depression Smoking Status: Current every day smoker Past Alcohol Use History: Abuse, Heavy Past Drug Use History: None Reported - Past Family History Father Family Medical History: Cancer, Dementia, Neurologic Disorder Additional Family Medical History / Comment(s): melanoma, parkinsons, schzophrenic Mother Family Medical History: Hypertension, Musculoskeletal Disorder, Neurologic Disorder, Osteoarthritis (OA) Additional Family Medical History / Comment(s): Mother of motor neuron disease at the age of 78yrs. Medications and Allergies Home Medications Medication Instructions Recorded Confirmed Type Fluticasone Nasal [place] [Flonase 2 spr EA NOSTRIL BID 10/11/19 08/03/21 History Nasal [place]] traZODone HCL [Desyrel] 100 mg PO HS PRN 05/14/20 08/03/21 History ALPRAZolam [Xanax] 1 mg PO BID PRN #10 tab 02/25/21 08/03/21 Rx Albuterol Sulfate [Proair Hfa] 1 - 2 puff INHALATION RT-QID PRN 07/06/21 08/03/21 History Celecoxib [CeleBREX] 200 mg PO DAILY PRN 07/06/21 08/03/21 History Gabapentin [Neurontin] 600 mg PO TID 07/06/21 08/03/21 History Acetaminophen Tab [Tylenol] 650 mg PO Q6HR PRN tab 07/10/21 08/03/21 Rx Cholestyramine (with Sugar) 4 gm PO BID@1000,1800 PRN #30 07/10/21 08/03/21 Rx [Questran Packet] packet Loperamide [Imodium] 2 mg PO QID PRN #20 cap 07/10/21 08/03/21 Rx Pantoprazole Sodium [Protonix] 40 mg PO BID 30 Days #60 tab 07/10/21 08/03/21 Rx Thiamine [Vitamin B-1] 100 mg PO BID-W/MEALS 30 Days #60 07/10/21 08/03/21 Rx tab Magnesium Oxide [Mag-Ox] 400 mg PO BID 7 Days #14 tablet 07/28/21 08/03/21 Rx Nicotine 21Mg/24Hr Patch [Habitrol] 1 patch TRANSDERM DAILY PRN 08/02/2108/03 History Allergies Allergy/AdvReac Type Severity Reaction Status Date / Time Cephalosporins Allergy Severe Anaphylaxis Verified 08/03/21 21:24 diphenhydramine HCl Allergy Severe Anaphylaxis Verified 08/03/21 21:24 [From Benadryl] divalproex sodium Allergy Severe Anaphylaxis Verified 08/03/21 21:24 [From Depakote] ceftriaxone [From Rocephin] Allergy Anaphylaxis Verified 08/03/21 21:24 cephalexin [From Keflex] Allergy Anaphylaxis Verified 08/03/21 21:24 droperidol Allergy Anaphylaxis Verified 08/03/21 21:24 lisinopril Allergy Anaphylaxis Verified 08/03/21 21:24 Physical Exam Vitals: Vital Signs Temp Pulse Resp BP Pulse Ox 08/03/21 20:56 86 18 124/71 95 08/03/21 18:40 98.8 F 89 18 126/75 97 Intake and Output 08/03/21 08/03/21 08/03/21 06:59 14:59 22:59 Other: Weight 117.934 kg - Constitutional General appearance: Present: average body habitus, cooperative, no acute distress - EENT Eyes: Present: anicteric sclerae, EOMI, PERRLA, normal appearance ENT: Present: hearing grossly normal, normal oropharynx Ears: bilateral: normal - Neck Neck: Present: normal ROM. Absent: lymphadenopathy, rigidity, thyromegaly Carotids: negative: bruit present Thyroid: bilateral: normal size, negative: enlarged, nodule - Respiratory Respiratory: bilateral: CTA, negative: rales, rhonchi, wheezing - Cardiovascular Rhythm: regular Heart sounds: normal: S1, S2 Abnormal Heart Sounds: Absent: systolic murmur, diastolic murmur - Gastrointestinal General gastrointestinal: Present: normal bowel sounds, soft. Absent: distended, organomegaly, tenderness - Genitourinary Genitourinary Comment(s): deferred - Integumentary Integumentary: Present: normal turgor. Absent: jaundiced, rash, ulcer - Neurologic Neurologic: Present: CNII-XII intact. Absent: focal deficits - Musculoskeletal Musculoskeletal: Present: gait normal, strength equal bilaterally - Psychiatric Psychiatric: Present: A&O x's 3, appropriate affect, intact judgment & insight Results CBC & Chem 7: 08/03/21 19:06 08/03/21 19:06 Labs: Abnormal Lab Results - Last 24 Hours (Table) 08/03/21 08/03/21 Range/Units 19:06 20:54 Magnesium 1.4 L (1.6-2.3) mg/dL AST 281 H (17-59) U/L ALT 127 H (4-49) U/L Serum Alcohol 427 H* mg/dL Coronavirus (PCR) Detected A (Not Detectd) Assessment and Plan Assessment: 1. EtOH intoxication/pending withdrawal - Start patient on IV fluids in form of banana bag at 1 25 mL an hour; CIWA protocol with Ativan - Counseling done on smoking cessation 2. Transaminitis; likely related to chronic alcohol abuse; we will monitor liver enzymes closely 3. Fall/closed head injury; patient reports mild headache; denies any dizziness or lightheadedness - We will monitor neuro checks for the next 24 hours - CT of head and cervical spine completed in ED was unremarkable 4. Hypertension; not on any antihypertensive therapy at this time; we will monitor blood pressure closely and make recommendations accordingly 5. Osteoarthritis; Celebrex 200 mg daily 6. Seasonal ALLERGIES; Flonase nasal spray twice a day 7. Asthma not in exacerbation; albuterol inhaler 1-2 puffs 4 times a day when necessary DVT prophylaxis; SCDs CODE STATUS; full code
[2021-08-03] MEDS ORDERED: ALBUTEROL HFA INHALER INHALATION PRN (22:00)
[2021-08-03] MEDS ORDERED: LOPERAMIDE 2 MG CAP PO PRN (22:00)
[2021-08-03] MEDS: GABAPENTIN 300 MG CAP PO SCH (22:59)
[2021-08-03] MEDS: LORazepam 2 MG/ML INJ IV PRN (22:59)
[2021-08-03] MEDS ORDERED: traZODone HCL 100 MG TAB PO PRN (23:00)
[2021-08-04] MEDS: 1: MVI, ADULT NO.4 WITH VIT K 10 ML, THIAMINE 100 MG, FOLIC ACID 1 MG in SODIUM CHLORIDE IV SCH ×12 (00:01→22:16)
[2021-08-04] MEDS: LORazepam 2 MG/ML INJ IV PRN ×4 (01:16→20:49)
[2021-08-04 06:39] LABS: Appearance,Urine Clear (Clear); Bilirubin,Urine Negative (Negative); Blood,Urine Negative (Negative); Color,Urine Yellow; Glucose,Urine (UA) Negative (Negative); Ketones,Urine Negative (Negative); Leukocyte Esterase,Urine Negative (Negative); Nitrite,Urine Negative (Negative); Protein,Urine Negative (Negative); Specific Gravity,Urine 1.014 (1.001-1.035); Urobilinogen,Urine <2.0 mg/dL (<2.0)
[2021-08-04 06:54] LABS: Amphetamine Screen,Urine Not Detected (NotDetected); Barbiturate Screen,Urine Not Detected (NotDetected); Benzodiazepines Screen,Urine Detected (NotDetected); Cocaine Screen,Urine Not Detected (NotDetected); Methadone Screen, Urine Not Detected (NotDetected); Opiate Screen,Urine Not Detected (NotDetected); Oxycodone Screen, Urine Not Detected (NotDetected); Phencyclidine Screen,Urine Not Detected (NotDetected); Tricyclic Antidepressant,Urine Not Detected (NotDetected); Urn Cannabinoid Scrn Detected (NotDetected)
[2021-08-04] MEDS: MAGNESIUM OXIDE 400 MG TAB PO SCH ×2 (07:48→20:49)
[2021-08-04] MEDS: THIAMINE 100 MG TAB PO SCH ×2 (07:48→15:38)
[2021-08-04] MEDS: GABAPENTIN 300 MG CAP PO SCH ×3 (07:48→20:49)
[2021-08-04] MEDS: PANTOPRAZOLE 40 MG TABLET PO SCH ×2 (07:48→20:49)
[2021-08-04] MEDS: FLUTICASONE 50MCG/SPRAY NASAL 16GM EA NOSTRIL SCH ×2 (07:49→20:48)
[2021-08-04] MEDS ORDERED: MELOXICAM 7.5 MG TAB PO PRN (09:00)
[2021-08-04] MEDS: CHOLECALCIFEROL 25 MCG (1000 IU) TABLET PO SCH (09:56)
[2021-08-04] MEDS: ASCORBIC ACID 500 MG TAB PO SCH (09:56)
[2021-08-04] MEDS ORDERED: CHOLESTYRAMINE (WITH SUGAR) 4 GM PACKET PO PRN (10:00)
[2021-08-04 11:06] LABS: Albumin 4.1 g/dL (3.8-4.9); Albumin/Globulin Ratio 2.25 (1.60-3.17); Anion Gap 15.9 mmol/L (10.00-18.00); BUN/Creat Ratio 15.2 Ratio (12.00-20.00); Bilirubin, Conjugated 0.24 mg/dL (0.20-0.40); Bilirubin,Unconjugated 0.47 mg/dL (0.20-1.00); Blood Urea Nitrogen 10.7 mg/dL (9.0-27.0); Calcium 8.1 mg/dL (8.7-10.3); Carbon Dioxide 25.3 mmol/L (20.0-27.5); Globulin 1.8 g/dL (1.6-3.3); Non-African American GFR(CKD) 111.3 (60.0-200.0); Potassium 4.7 mmol/L (3.5-5.5); Total Bilirubin 0.7 mg/dL (0.30-1.20); Total Protein 5.9 g/dL (6.2-8.2)
[2021-08-04 11:43] LABS: African American GFR (CKD) >90 (>60 ml/min/1.73 sqM); Anion Gap 8 mmol/L; Blood Urea Nitrogen 12 mg/dL (9-20); C Reactive Protein <0.5 mg/dL (<1.0); Calcium 8.1 mg/dL (8.4-10.2); Carbon Dioxide 27 mmol/L (22-30); Chloride 99 mmol/L (98-107); Glucose 77 mg/dL (74-99); LDH 455 U/L (313-618); Magnesium 1.1 mg/dL (1.6-2.3); Non-African American GFR(CKD) >90 (>60 ml/min/1.73 sqM); Potassium 4.7 mmol/L (3.5-5.1); Sodium 134 mmol/L (137-145)
[2021-08-04] MEDS: ENOXAPARIN 40 MG/0.4 ML SYRINGE SQ SCH (13:33)
--- NOTE | 2021-08-04 13:56 | P.PN ---
Subjective Progress Note Date: 08/04/21 Principal diagnosis: COVID-19 infection EtOH intoxication/pending withdrawal Transaminitis 46-year-old male presents emergency department with past medical history of hypertension, osteoarthritis, seizure disorder, alcohol withdrawal presents to the emergency department after a fall earlier today. Patient states he is trying to get dressed when he lost balance and fell, hitting his head on a chair. Patient is unsure if he lost consciousness. Patient is a poor historian and appears to be intoxicated at this time. Patient states he does drink vodka daily. Patient requesting we follow [facility] protocol. Patient states he does have a mild headache. He denies any chest pain, vomiting and shortness of breath, change in bowel or bladder, change in appetite, dizziness, lightheadedness. EKG Findings:: EKG impression sinus rhythm. Ventricular rate 80 bpm. [place] interval 183. QRS duration 121. QT/QTc 418/454. No ST elevations or depressions noted. No change prior EKG Blood work reveals WBC 4.4, hemoglobin 13.3, hematocrit 41.6 and platelet count of 222; INR at 0.9; sodium 143, potassium 4.6, BUN/creatinine of 10/0.69; AST/ALT elevated at 281/127; serum alcohol level at 427 CT of head and C-spine completed in ED was unremarkable 08/04/2021 Patient is constantly requesting Ativan; doesn't seem to be going through withdrawals yet; patient counseled on use of Ativan Vital signs are reviewed and remained stable; COVID-19 PCR is positive; patient remains asymptomatic and is saturating above 98% on room air We will add subcu Lovenox along with COVID-19 vitamin cocktail; pulmonary is consulted; order inflammatory markers including CRP, LDH, ferritin, d-dimer and pro-calcitonin Further recommendations once results are available Objective - Vital Signs Vital signs: Vital Signs Temp 98.3 F 08/04/21 07:00 Pulse 85 08/04/21 07:00 Resp 20 08/04/21 07:00 BP 133/85 08/04/21 07:00 Pulse Ox 96 08/04/21 07:00 Intake & Output 08/03/21 08/04/21 08/04/21 18:59 06:59 18:59 Intake Total 120 Balance 120 Weight 117.934 kg 117.934 kg Intake: Oral 120 Other: # Voids 1 - Exam - Constitutional General appearance: Present: average body habitus, cooperative, no acute distress - EENT Eyes: Present: anicteric sclerae, EOMI, PERRLA, normal appearance ENT: Present: hearing grossly normal, normal oropharynx Ears: bilateral: normal - Neck Neck: Present: normal ROM. Absent: lymphadenopathy, rigidity, thyromegaly Carotids: negative: bruit present Thyroid: bilateral: normal size, negative: enlarged, nodule - Respiratory Respiratory: bilateral: CTA, negative: rales, rhonchi, wheezing - Cardiovascular Rhythm: regular Heart sounds: normal: S1, S2 Abnormal Heart Sounds: Absent: systolic murmur, diastolic murmur - Gastrointestinal General gastrointestinal: Present: normal bowel sounds, soft. Absent: distended, organomegaly, tenderness - Genitourinary Genitourinary Comment(s): deferred - Integumentary Integumentary: Present: normal turgor. Absent: jaundiced, rash, ulcer - Neurologic Neurologic: Present: CNII-XII intact. Absent: focal deficits - Musculoskeletal Musculoskeletal: Present: gait normal, strength equal bilaterally - Psychiatric Psychiatric: Present: A&O x's 3, appropriate affect, intact judgment & insight - Labs CBC & Chem 7: 08/03/21 19:06 08/04/21 11:07 Labs: Abnormal Lab Results - Last 24 Hours (Table) 08/03/21 08/03/21 08/04/21 Range/Units 19:06 20:54 06:26 Magnesium 1.4 L (1.6-2.3) mg/dL AST 281 H (17-59) U/L ALT 127 H (4-49) U/L U Benzodiazepines Scrn Detected H (NotDetected) U Marijuana (THC) Screen Detected H (NotDetected) Serum Alcohol 427 H* mg/dL Coronavirus (PCR) Detected A (Not Detectd) Assessment and Plan Assessment: 1. EtOH intoxication/pending withdrawal - Start patient on IV fluids in form of banana bag at 1 25 mL an hour; [place] protocol with Ativan - Counseling done on smoking cessation 2. Transaminitis; likely related to chronic alcohol abuse; we will monitor liver enzymes closely 3. Fall/closed head injury; patient reports mild headache; denies any dizziness or lightheadedness - We will monitor neuro checks for the next 24 hours - CT of head and cervical spine completed in ED was unremarkable 4. Hypertension; not on any antihypertensive therapy at this time; we will monitor blood pressure closely and make recommendations accordingly 5. Osteoarthritis; Celebrex 200 mg daily 6. Seasonal ALLERGIES; Flonase nasal spray twice a day 7. Asthma not in exacerbation; albuterol inhaler 1-2 puffs 4 times a day when necessary DVT prophylaxis; SCDs CODE STATUS; full code
--- NOTE | 2021-08-04 14:40 | P.CNPUL ---
History of Present Illness Consult date: 08/04/21 Requesting physician: Aida Arias Chief complaint: Positive test for coronavirus. History of present illness: Pulmonary consult dated 08/04/2021. 46-year-old male who presents to the emergency department yesterday, with possible alcohol withdrawal syndrome. The patient apparently fell prior to coming to the emergency department. He apparently has a history of hypertension, arthritis, and seizure disorder. The patient was tested for coronavirus, and apparently tested positive. He is not having any symptoms of a ctive infection. He's primarily in the hospital for alcohol withdrawal syndrome. The patient is currently on room air. He is getting saline at 100 mL an hour. He drinks 1/2 gallon of vodka every day. He has been vaccinated against coronavirus. His primary care physician is Dr. Bynum. The patient denies any shortness of breath, cough, fever, chills, or phlegm production. He also denies any chest pain or chest discomfort. White count 4.4, hemoglobin 13.3, hematocrit 41.6, and platelet count 222,000. D-dimer was 1.33. Sodium 134, potassium 4.7, chlorides 99, CO2 27, anion gap 8, BUN 12, creatinine 0.68. Phosphorus is 1.1. Calcium 8.1. LDH is 455. C-reactive protein is less than 0.5. Urine is negative. Drug screen was positive for benzodiazepines and marijuana. His alcohol level was 427. Computed tomography scan of the cervical spine and head were negative. Review of Systems REVIEW OF SYSTEMS: CONSTITUTIONAL: [Negative.] NEUROLOGIC: Agitation, tremors. HEENT: [ Negative.] CARDIAC: [Negative.] PULMONARY: [Negative.] GI: [Negative.] : [Negative.] RHEUMATOLOGIC: [ Negative.] IMMUNOLOGIC: [ Negative.] ENDOCRINE: [Negative. ] DERMATOLOGIC: [Negative.] Past Medical History Past Medical History: GERD/Reflux, GI Bleed, Hypertension, Liver Disease, Osteoarthritis (OA), Pneumonia, Seizure Disorder, Sleep Apnea/CPAP/BIPAP, Vascular Disorder Additional Past Medical History / Comment(s): Pt recently admitted to [facility] on 07/26/21 with alcohol intoxication/abuse/fall/marijuana abuse. Other hx: Occasional bilateral pedal edema if stands long, arthritis possibly in back/ribs, MILIND without device, ETOH abuse, alcoholic seizures/blackouts/fainting 2016, alcoholic hepatitis, alcoholic gastritis, upper GI bleed, hypomagnesemia, spinal stenosis/herniated disc with surgery, bilateral varicose veins, hemorrhoids History of Any Multi-Drug Resistant Organisms: None Reported Past Surgical History: Appendectomy, Back Surgery, Tonsillectomy Additional Past Surgical History / Comment(s): bilateral discectomy, discectomy L5-S1, EGD Past Anesthesia/Blood Transfusion Reactions: Motion Sickness Past Psychological History: Anxiety, Depression Additional Psychological History / Comment(s): Pt lives alone no pets. Pt uses no assistive device. He drives but his truck is not working so has been using a cab. Smoking Status: Current every day smoker Past Alcohol Use History: Abuse, Heavy Additional Past Alcohol Use History / Comment(s): He has been in rehab in the past for ETOH abuse. december 2020. Pt states he started on and off smoking as a yo lula adult and has more often been a nonsmoker. Pt states he drinks up to 1/2 gallon vodka Past Drug Use History: Marijuana Additional Drug Use History / Comment(s): Pt smoked marijuana on occasion - Past Family History Father Family Medical History: Cancer, Dementia, Neurologic Disorder Additional Family Medical History / Comment(s): melanoma, parkinsons, schizophre kitty Mother Family Medical History: Hypertension, Musculoskeletal Disorder, Neurologic Disorder, Osteoarthritis (OA) Additional Family Medical History / Comment(s): Mother of motor neuron disease at the age of 78yrs. Medications and Allergies Home Medications Medication Instructions Recorded Confirmed Type Fluticasone Nasal [place] [Flonase 2 spr EA NOSTRIL BID 10/11/19 08/03/21 History Nasal [place]] traZODone HCL [Desyrel] 100 mg PO HS PRN 05/14/20 08/03/21 History ALPRAZolam [Xanax] 1 mg PO BID PRN #10 tab 02/25/21 08/03/21 Rx Albuterol Sulfate [Proair Hfa] 1 - 2 puff INHALATION RT-QID PRN 07/06/21 08/03/21 History Celecoxib [CeleBREX] 200 mg PO DAILY PRN 07/06/21 08/03/21 History Gabapentin [Neurontin] 600 mg PO TID 07/06/21 08/03/21 History Acetaminophen Tab [Tylenol] 650 mg PO Q6HR PRN tab 07/10/21 08/03/21 Rx Cholestyramine (with Sugar) 4 gm PO BID@1000,1800 PRN #30 07/10/21 08/03/21 Rx [Questran Packet] packet Loperamide [Imodium] 2 mg PO QID PRN #20 cap 07/10/21 08/03/21 Rx Pantoprazole Sodium [Protonix] 40 mg PO BID 30 Days #60 tab 07/10/21 08/03/21 Rx Thiamine [Vitamin B-1] 100 mg PO BID-W/MEALS 30 Days #60 07/10/21 08/03/21 Rx tab Magnesium Oxide [Mag-Ox] 400 mg PO BID 7 Days #14 tablet 07/28/21 08/03/21 Rx Nicotine 21Mg/24Hr Patch [Habitrol] 1 patch TRANSDERM DAILY PRN 08/02/21 08/03/21 History Allergies Allergy/AdvReac Type Severity Reaction Status Date / Time Cephalosporins Allergy Severe Anaphylaxis Verified 08/03/21 21:24 diphenhydramine HCl Allergy Severe Anaphylaxis Verified 08/03/21 21:24 [From Benadryl] divalproex sodium Allergy Severe Anaphylaxis Verified 08/03/21 21:24 [From Depakote] ceftriaxone [From Rocephin] Allergy Anaphylaxis Verified 08/03/21 21:24 cephalexin [From Keflex] Allergy Anaphylaxis Verified 08/03/21 21:24 droperidol Allergy Anaphylaxis Verified 08/03/21 21:24 lisinopril Allergy Anaphylaxis Verified 08/03/21 21:24 Physical Exam Osteopathic Statement: *. No significant issues noted on an osteopathic structural exam other than those noted in the History and Physical/Consult. Vitals: Vital Signs Temp Pulse Pulse Resp BP BP Pulse Ox 08/04/21 14:16 99.3 F 107 H 18 136/68 96 08/04/21 07:00 98.3 F 85 20 133/85 96 08/04/21 01:04 98.7 F 84 20 131/80 96 08/03/21 22:20 99.1 F 90 22 144/84 96 08/03/21 20:56 86 18 124/71 95 08/03/21 18:40 98.8 F 89 18 126/75 97 Intake and Output 08/03/21 08/04/21 08/04/21 22:59 06:59 14:59 Intake Total 360 Balance 360 Intake: Oral 360 Other: # Voids 0 1 2 Weight 117.934 kg No acute distress, oriented 3. Speech is slow. HEENT examination is grossly unremarkable. Neck supple. Full range of motion. No adenopathy thyromegaly or neck vein distention. Cardiovascular examination reveals regular rhythm rate. S1-S2 normal. No S3 or S4. No discernible murmur noted. Heart rate 107 bpm. Lungs reveal clear breath sounds. Breath sounds are equal bilaterally. No adventitious lung sounds including wheezes rhonchi or crackles. Room air saturation is 96%. Abdomen soft bowel sounds are heard. No masses or tenderness. Extremities are intact. No cyanosis clubbing or edema. Skin is without rash or lesion. Neurologic examination is brief but nonfocal. A slight tremor is noted. Results - Laboratory Findings CBC and BMP: 08/03/21 19:06 08/04/21 11:07 PT/INR, D-dimer PT 10.1 sec (9.0-12.0) 08/03/21 19:06 INR 0.9 (<1.2) 08/03/21 19:06 D-Dimer 1.33 mg/L FEU (<0.60) H 08/04/21 11:07 Abnormal lab findings: Abnormal Labs 08/03/21 08/03/21 08/04/21 19:06 20:54 06:26 D-Dimer Sodium Calcium Magnesium 1.4 L AST 281 H ALT 127 H Total Protein U Benzodiazepines Scrn Detected H U Marijuana (THC) Screen Detected H Serum Alcohol 427 H* Coronavirus (PCR) Detected A 08/04/21 08/04/21 08/04/21 07:53 11:07 11:07 D-Dimer 1.33 H Sodium 134 L Calcium 8.1 L 8.1 L Magnesium 1.1 L AST 197 H ALT 107 H Total Protein 5.9 L U Benzodiazepines Scrn U Marijuana (THC) Screen Serum Alcohol Coronavirus (PCR) Assessment and Plan Assessment: Chronic alcohol abuse, with possible alcohol withdrawal syndrome. Patient dri nks one half a gallon of vodka daily. History of gastroesophageal reflux disease. History of GI bleed. History of hypertension. History of alcoholic liver disease/alcoholic hepatitis. Osteoarthritis. History of sleep apnea syndrome. History of seizure disorder, alcohol related. History of chronic tobacco use. History of chronic marijuana use. History of anxiety and depression. Plan: Plan dated 08/04/2021. Currently, the patient is stable from the pulmonary standpoint. He is not having any signs or symptoms of acute coronavirus infection and/or coronavirus associated pneumonia. His room air saturations are excellent. The patient is currently being evaluated by the primary service for alcohol withdrawal syndrome. We will continue to follow make recommendations where appropriate. Prognosis is guarded. No additional recommendations are made at this time. Time with Patient: Greater than 30
[2021-08-04] MEDS: IBUPROFEN 400 MG TAB PO PRN ×2 (15:47→22:18)
[2021-08-05] MEDS: 1: MVI, ADULT NO.4 WITH VIT K 10 ML, THIAMINE 100 MG, FOLIC ACID 1 MG in SODIUM CHLORIDE IV SCH ×8 (04:32→21:35)
[2021-08-05] MEDS: LORazepam 2 MG/ML INJ IV PRN (05:36)
[2021-08-05] MEDS: IBUPROFEN 400 MG TAB PO PRN ×3 (05:39→21:34)
[2021-08-05] MEDS: PANTOPRAZOLE 40 MG TABLET PO SCH ×2 (09:07→21:35)
[2021-08-05] MEDS: NICOTINE 21MG/24HR PATCH TRANSDERM PRN (09:07)
[2021-08-05] MEDS: ENOXAPARIN 40 MG/0.4 ML SYRINGE SQ SCH (09:07)
[2021-08-05] MEDS: ASCORBIC ACID 500 MG TAB PO SCH (09:07)
[2021-08-05] MEDS: THIAMINE 100 MG TAB PO SCH ×2 (09:07→15:40)
[2021-08-05] MEDS: GABAPENTIN 300 MG CAP PO SCH ×3 (09:07→21:34)
[2021-08-05] MEDS: MAGNESIUM OXIDE 400 MG TAB PO SCH ×2 (09:08→21:35)
[2021-08-05] MEDS: CHOLECALCIFEROL 25 MCG (1000 IU) TABLET PO SCH (09:08)
[2021-08-05] MEDS: FLUTICASONE 50MCG/SPRAY NASAL 16GM EA NOSTRIL SCH ×2 (09:08→21:36)
--- NOTE | 2021-08-05 09:09 | US ---
EXAMINATION TYPE: US venous doppler duplex LE BI DATE OF EXAM: 08/05/2021 8:44 AM COMPARISON: 07/31/2021 CLINICAL HISTORY: elevated d-dimer. Elevated d-dimer. SIDE PERFORMED: Bilateral TECHNIQUE: The lower extremity deep venous system is examined utilizing real time linear array sonog bhavesh with graded compression, doppler sonography and color-flow sonography. VESSELS IMAGED: Common Femoral Vein Deep Femoral Vein Greater Saphenous Vein * Femoral Vein Popliteal Vein Small Saphenous Vein * Proximal Calf Veins (* superficial vessels) Right Leg: No evidence of DVT in veins imaged at this time. Left Leg: No evidence of DVT in veins imaged at this time. IMPRESSION: 1. No diagnostic evidence of DVT as visualized.
[2021-08-05] MEDS ORDERED: Magnesium Replacement Protocol 1 EACH MISC MISCELLANE PRN (09:44)
--- NOTE | 2021-08-05 10:46 | XR ---
EXAMINATION TYPE: XR chest 1V portable DATE OF EXAM: 08/05/2021 COMPARISON: 07/29/2021 HISTORY: Cough TECHNIQUE: Single frontal view of the chest is obtained. FINDINGS: There is no focal air space opacity, pleural effusion, or pneumothorax seen. The cardiac silhouette size is within normal limits. Hypertrophic and degenerative change the spine. Arthropathy of the shoulders.. IMPRESSION: No acute process.
[2021-08-05] MEDS: MAGNESIUM SULFATE-D5W PMX 1 GM in DEXTROSE/WATER 1 100ML.BAG IVPB SCH ×3 (10:47→13:22)
[2021-08-05 11:01] LABS: African American GFR (CKD) >90 (>60 ml/min/1.73 sqM); Anion Gap 6 mmol/L; Blood Urea Nitrogen 11 mg/dL (9-20); Calcium 8.4 mg/dL (8.4-10.2); Carbon Dioxide 28 mmol/L (22-30); Chloride 103 mmol/L (98-107); Glucose 92 mg/dL (74-99); Magnesium 1.3 mg/dL (1.6-2.3); Non-African American GFR(CKD) >90 (>60 ml/min/1.73 sqM); Potassium 4.3 mmol/L (3.5-5.1); Sodium 137 mmol/L (137-145)
--- NOTE | 2021-08-05 11:40 | P.PN ---
Subjective Progress Note Date: 08/05/21 Principal diagnosis: Positive test for COVID 19 46-year-old male who presents to the emergency department yesterday, with possible alcohol withdrawal syndrome. The patient apparently fell prior to coming to the emergency department. He apparently has a history of hypertension, arthritis, and seizure disorder. The patient was tested for coronavirus, and apparently tested positive. He is not having any symptoms of active infection. He's primarily in the hospital for alcohol withdrawal syndrome. The patient is currently on room air. He is getting saline at 100 mL an hour. He drinks 1/2 gallon of vodka every day. He has been vaccinated against coronavirus. His primary care physician is Dr. Bynum. The patient denies any shortness of breath, cough, fever, chills, or phlegm production. He also denies any chest pain or chest discomfort. White count 4.4, hemoglobin 13.3, hematocrit 41.6, and platelet count 222,000. D-dimer was 1.33. Sodium 134, potassium 4.7, chlorides 99, CO2 27, anion gap 8, BUN 12, creatinine 0.68. Phosphorus is 1.1. Calcium 8.1. LDH is 455. C-reactive protein is less than 0.5. Urine is negative. Drug screen was positive for benzodiazepines and marijuana. His alcohol level was 427. Computed tomography scan of the cervical spine and head were negative. On 08/05/2021 patient seen in follow-up on medical surgical floor. He is resting comfortably in bed, denies any pulmonary symptoms, lung sounds are clear, no cough, room air pulse ox is 98%, patient was an incidental finding of COVID-19 infection, chest x-ray was completed and showed no acute process. Patient is vaccinated against COVID-19. His d-dimer was a bit elevated at 1.33, lower extremity Dopplers were completed showing no evidence of DVT. He currently rem ains on lactic Lovenox 40 mg daily. He remains on multivitamins, she was not a candidate for steroids or Remdesivir. Objective - Vital Signs Vital signs: Vital Signs Temp 98.3 F 08/05/21 07:00 Pulse 64 08/05/21 07:00 Resp 18 08/05/21 07:00 BP 139/71 08/05/21 07:00 Pulse Ox 98 08/05/21 07:00 Intake & Output 08/04/21 08/05/21 08/05/21 18:59 06:59 18:59 Intake Total 1611.2 500 120 Balance 1611.2 500 120 Intake: Intake, IV Titration 1011.2 Amount Mvi, Adult No.4 with Vit 1011.2 K 10 ml Thiamine 100 mg Folic Acid 1 mg In Sodium Chloride 0.9% 1,000 ml @ 100 mls/hr IV .BY [facility] Rx#: [id number] Oral 600 500 120 Other: Voiding Method Toilet # Voids 3 2 2 - Exam GENERAL EXAM: Alert, pleasant, 46-year-old white male, on room air with a pulse ox of 98%, comfortable in no apparent distress. HEAD: Normocephalic/atraumatic. EYES: Normal reaction of pupils, equal size. Conjunctiva pink, sclera white. NOSE: Clear with pink turbinates. THROAT: No erythema or exudates. NECK: No masses, no JVD, no thyroid enlargement, no adenopathy. CHEST: No chest wall deformity. Symmetrical expansion. LUNGS: Equal air entry with no crackles, wheeze, rhonchi or dullness. CVS: Regular rate and rhythm, normal S1 and S2, no gallops, no murmurs, no rubs ABDOMEN: Soft, nontender. No hepatosplenomegaly, normal bowel sounds, no guarding or rigidity. EXTREMITIES: No clubbing, no edema, no cyanosis, 2+ pulses and upper and lower extremities. MUSCULOSKELETAL: Muscle strength and tone normal. SPINE: No scoliosis or deformity SKIN: No rashes CENTRAL NERVOUS SYSTEM: Alert and oriented -3. No focal deficits, tone is normal in all 4 extremities. PSYCHIATRIC: Alert and oriented -3. Appropriate affect. Intact judgment and insight. - Labs CBC & Chem 7: 08/03/21 19:06 08/05/21 10:21 Labs: Abnormal Lab Results - Last 24 Hours (Table) 08/04/21 08/04/21 08/04/21 Range/Units 11:07 11:07 11:07 D-Dimer 1.33 H (<0.60) mg/L FEU Sodium 134 L (137-145) mmol/L Calcium 8.1 L (8.4-10.2) mg/dL Magnesium 1.1 L (1.6-2.3) mg/dL Ferritin 873.0 H (22.0-322.0) ng/mL Procalcitonin 0.18 H (0.02-0.09) ng/mL 08/05/21 Range/Units 10:21 D-Dimer (<0.60) mg/L FEU Sodium (137-145) mmol/L Calcium (8.4-10.2) mg/dL Magnesium 1.3 L (1.6-2.3) mg/dL Ferritin (22.0-322.0) ng/mL Procalcitonin (0.02-0.09) ng/mL Assessment and Plan Plan: Assessment: #1. Acute EtOH withdrawal #2. Acute COVID-19 infection, and patient was asymptomatic, this was an incidental finding, chest x-ray showing no acute process, patient is status completed vaccination against COVID-19. Not a candidate for Remdesivir, not a candidate for Decadron. #3. Chronic alcoholism #4. Hypertension #5. Seizure disorder #6. Chronic back pain #7. Current every day smoker #8. Multiple admissions for acute EtOH withdrawal Plan: From pulmonary perspective patient remains stable, without any complaints He is on room air, chest x-ray showed no acute pulmonary process Not a candidate for Remdesivir or Decadron From pulmonary perspective patient can be considered for discharge home if cleared by medicine I performed a history & physical examination of the patient and discussed their management with my nurse practitioner, Loli Lynne. I reviewed the nurse practitioner's note and agree with the documented findings and plan of care. Lung sounds are positive for dim breath sounds throughout the lung llamas. The findings and the impression was discussed with the patient. I attest to the documentation by the nurse practitioner. Time with Patient: Less than 30
[2021-08-05] MEDS ORDERED: SOTROVIMAB (EUA) 500 MG in SODIUM CHLORIDE 0.9% 100 ML IVPB ONE (13:30)
[2021-08-05] MEDS ORDERED: SODIUM CHLORIDE 0.9% 50 ML IVPB ONE (14:00)
[2021-08-06] MEDS: 1: MVI, ADULT NO.4 WITH VIT K 10 ML, THIAMINE 100 MG, FOLIC ACID 1 MG in SODIUM CHLORIDE IV SCH ×4 (01:45)
[2021-08-06 08:16] VITALS: RESP 20; TEMP 97.4
[2021-08-06] MEDS: ENOXAPARIN 40 MG/0.4 ML SYRINGE SQ SCH (08:19)
[2021-08-06] MEDS: THIAMINE 100 MG TAB PO SCH (08:19)
[2021-08-06] MEDS: PANTOPRAZOLE 40 MG TABLET PO SCH (08:19)
[2021-08-06] MEDS: CHOLECALCIFEROL 25 MCG (1000 IU) TABLET PO SCH (08:20)
[2021-08-06] MEDS: MAGNESIUM OXIDE 400 MG TAB PO SCH (08:20)
[2021-08-06] MEDS: GABAPENTIN 300 MG CAP PO SCH (08:20)
[2021-08-06] MEDS: FLUTICASONE 50MCG/SPRAY NASAL 16GM EA NOSTRIL SCH (08:20)
[2021-08-06] MEDS: ASCORBIC ACID 500 MG TAB PO SCH (08:20)
[2021-08-06] MEDS: IBUPROFEN 400 MG TAB PO PRN (08:25)
--- NOTE | 2021-08-06 08:52 | P.PN ---
Subjective Progress Note Date: 08/05/21 COVID-19 infection EtOH intoxication/pending withdrawal Transaminitis 46-year-old male presents emergency department with past medical history of hypertension, osteoarthritis, seizure disorder, alcohol withdrawal presents to the emergency department after a fall earlier today. Patient states he is tryin g to get dressed when he lost balance and fell, hitting his head on a chair. Patient is unsure if he lost consciousness. Patient is a poor historian and appears to be intoxicated at this time. Patient states he does drink vodka daily. Patient requesting we follow CINY protocol. Patient states he does have a mild headache. He denies any chest pain, vomiting and shortness of breath, change in bowel or bladder, change in appetite, dizziness, lightheadedness. EKG Findings:: EKG impression sinus rhythm. Ventricular rate 80 bpm. FL interval 183. QRS duration 121. QT/QTc 418/454. No ST elevations or depressions noted. No change prior EKG Blood work reveals WBC 4.4, hemoglobin 13.3, hematocrit 41.6 and platelet count of 222; INR at 0.9; sodium 143, potassium 4.6, BUN/creatinine of 10/0.69; AST/ALT elevated at 281/127; serum alcohol level at 427 CT of head and C-spine completed in ED was unremarkable 08/04/2021 Patient is constantly requesting Ativan; doesn't seem to be going through withdrawals yet; patient counseled on use of Ativan Vital signs are reviewed and remained stable; COVID-19 PCR is positive; patient remains asymptomatic and is saturating above 98% on room air We will add subcu Lovenox along with COVID-19 vitamin cocktail; pulmonary is co nsulted; order inflammatory markers including CRP, LDH, ferritin, d-dimer and pro-calcitonin Further recommendations once results are available 08/05/2021 Patient is seen and evaluated in follow-up currently being closely monitored and continues on CIWA protocol for alcohol withdrawal. Patient also found to be covered positive and is asymptomatic and have discussed with pharmacy and patient has met criteria to receive monoclonal antibody and this will be ordered. Patient denies any shortness of breath, chest pain, or palpitations. Patient is afebrile. Patient continues to have tremens noted on exam and has continued to use IV Ativan. Encourage the patient increased oral intake along w ith increasing activity and open up the windows and get out of bed more often during the day. Magnesium was found to be critically low at 1.1 and will replace and repeat labs. Review of systems: Constitutional: No reports of fatigue, fever, or chills Cardiovascular: No reports of chest pain or palpitations Respiratory: No reports of shortness of breath or cough GI: reports of occasional nausea, no reports of of vomiting : No reports of dysuria or retention Neurovascular: reports of generalized weakness All medications have been reviewed Active Medications Albuterol Sulfate (Albuterol Hfa Inhaler) 2 puff INHALATION RT-QID PRN PRN Reason: Shortness Of Breath Last Admin: 08/04/21 07:34 Dose: 2 puff Documented by: Ascorbic Acid (Ascorbic Acid 500 Mg Tab) 500 mg PO DAILY [facility] Last Admin: 08/05/21 09:07 Dose: 500 mg Documented by: Chlordiazepoxide HCl (Chlordiazepoxide 10 Mg Cap) 10 mg PO TID [facility] Last Admin: 08/05/21 15:40 Dose: 10 mg Documented by: Cholecalciferol (Cholecalciferol 25 Mcg (1000 Iu) Tablet) 50 mcg PO DAILY [facility] Last Admin: 08/05/21 09:08 Dose: 50 mcg Documented by: Cholestyramine Resin (Cholestyramine (With Sugar) 4 Gm Packet) 4 gm PO BID@1000,1800 PRN PRN Reason: Diarrhea Enoxaparin Sodium (Enoxaparin 40 Mg/0.4 Ml Syringe) 40 mg SQ DAILY [facility] Last Admin: 08/05/21 09:07 Dose: 40 mg Documented by: Fluticasone Propionate (Fluticasone 50mcg/[place] Nasal 16gm) 2 spray EA NOSTRIL BID [facility] Last Admin: 08/05/21 09:08 Dose: 2 spray Documented by: Gabapentin (Gabapentin 300 Mg Cap) 600 mg PO TID [facility] Last Admin: 08/05/21 15:40 Dose: 600 mg Documented by: Parenteral Vitamin Supplement 10 ml/ Thiamine HCl 100 mg/Folic Acid 1 mg/ Sodium Chloride 1,011.2 mls @ 100 mls/hr IV .BY DURATION [facility] Last Admin: 08/04/21 22:16 Dose: 100 mls/hr Documented by: Sodium Chloride (Saline 0.9%) 1,000 mls @ 100 mls/hr IV .BY DURATION [facility] Last Admin: 08/05/21 04:32 Dose: Not Given Documented by: Ibuprofen (Ibuprofen 400 Mg Tab) 400 mg PO Q6HR PRN PRN Reason: Mild Pain or Fever > 100.5 Last Admin: 08/05/21 15:40 Dose: 400 mg Documented by: Loperamide HCl (Loperamide 2 Mg Cap) 2 mg PO QID PRN PRN Reason: Diarrhea Lorazepam (Lorazepam 2 Mg/Ml Inj) 1 mg IV Q2HR PRN PRN Reason: CIWA 8 or 9 Last Admin: 08/05/21 05:36 Dose: 1 mg Documented by: Lorazepam (Lorazepam 2 Mg/Ml Inj) 1 mg IV Q1HR PRN PRN Reason: CIWA 10 to 15 Lorazepam (Lorazepam 2 Mg/Ml Inj) 2 mg IV Q10M PRN PRN Reason: CIWA 16 or higher Stop: 08/05/21 19:22 Magnesium Oxide (Magnesium Oxide 400 Mg Tab) 400 mg PO BID [facility] Last Admin: 08/05/21 09:08 Dose: 400 mg Documented by: Meloxicam (Meloxicam 7.5 Mg Tab) 7.5 mg PO DAILY PRN PRN Reason: Pain Miscellaneous Information (Magnesium Replacement Protocol 1 Each Misc) 1 each MISCELLANE DAILY PRN; Protocol PRN Reason: Per Protocol Naloxone HCl (Naloxone 0.4 Mg/Ml 1 Ml Vial) 0.2 mg IV Q2M PRN PRN Reason: Opioid Reversal Nicotine (Nicotine 21mg/24hr Patch) 1 patch TRANSDERM DAILY PRN PRN Reason: Cravings Last Admin: 08/05/21 09:07 Dose: 1 patch Documented by: Ondansetron HCl (Ondansetron 4 Mg/2 Ml Vial) 4 mg IVP Q8HR PRN PRN Reason: Nausea And Vomiting Pantoprazole Sodium (Pantoprazole 40 Mg Tablet) 40 mg PO BID [facility] Last Admin: 08/05/21 09:07 Dose: 40 mg Documented by: Thiamine HCl (Thiamine 100 Mg Tab) 100 mg PO BID-W/MEALS [facility] Last Admin: 08/05/21 15:40 Dose: 100 mg Documented by: Trazodone HCl (Trazodone Hcl 100 Mg Tab) 100 mg PO HS PRN PRN Reason: Insomnia PHYSICAL EXAMINATION: GENERAL: The patient is alert and oriented x4, Well developed, well nourished. Tremens noted on exam HEENT: Pupils are round and equally reacting to light. EOMI. does have scleral icterus. No conjunctival pallor. Normocephalic, atraumatic. No pharyngeal erythema. No thyromegaly. CARDIOVASCULAR: S1 and S2 muffled PULMONARY: diminished breath sounds bilaterally with no wheezing or rhonchi noted. ABDOMEN: soft. Nontender on exam. obese. non-distended, normoactive bowel sounds. No palpable organomegaly. MUSCULOSKELETAL: No joint swelling or deformity. EXTREMITIES: No cyanosis, clubbing, or pedal edema. NEUROLOGICAL: Gross neurological examination did not reveal any focal deficits. SKIN: No rashes. Assessment: Acute alcohol intoxication with possible acute alcohol withdrawal, present on admission Transaminitis likely related to chronic alcohol abuse Hypomagnesemia Fall with closed head injury, CT of the head and neck was negative Hypertension Osteoarthritis Seasonal ALLERGIES Asthma, not in exacerbation GI prophylaxis DVT prophylaxis Full code Plan: Recommend to continue with current medications and management of alcohol withdrawal. Continue CIWA protocol. Patient also found a COVID-19 positive and pulmonary following. Discussed with pharmacy about meeting criteria for monoclonal antibodies and patient meets and will receive this. Venous Doppler was done which was negative for DVTs and chest x-ray today shows no acute process. Patient continues to require Ativan and discussed with patient about increasing activity as tolerated and encouraging oral intake. Also discussed with the patient about going to alcohol rehab and he states he will be going. Will need to discuss with social work and case management about protocol at the rehab of those were Covid positive. Magnesium was low at 1.1 and will replace and repeat labs. Due to multiple complex medical issues, prognosis is guarded. Anticipate discharge in 24 hours. The impression and plan of care has been dictated by Zayra Webster, nurse practitioner as directed. MD Luzmaria I have performed a history and examination and MDM of this patient, discussed the same with the dictator, and agree with the dictator's assessment and plan as written ,documented as a scribe. Based on total visit time, I have performed more than 50% of the visit. Any additional findings or plans will be noted. Objective - Vital Signs Vital signs: Vital Signs Temp 98.3 F 08/05/21 07:00 Pulse 64 08/05/21 07:00 Resp 18 08/05/21 07:00 BP 139/71 08/05/21 07:00 Pulse Ox 98 08/05/21 07:00 Intake & Output 08/04/21 08/05/21 08/05/21 18:59 06:59 18:59 Intake Total 1611.2 500 Balance 1611.2 500 Intake: Intake, IV Titration 1011.2 Amount Mvi, Adult No.4 with Vit 1011.2 K 10 ml Thiamine 100 mg Folic Acid 1 mg In Sodium Chloride 0.9% 1,000 ml @ 100 mls/hr IV .BY DURATION [facility] Rx#: [id number] Oral 600 500 Other: Voiding Method Toilet # Voids 3 2 - Labs CBC & Chem 7: 08/03/21 19:06 08/05/21 10:21 Labs: Abnormal Lab Results - Last 24 Hours (Table) 08/04/21 08/04/21 08/04/21 Range/Units 07:53 11:07 11:07 D-Dimer 1.33 H (<0.60) mg/L FEU Sodium 134 L (137-145) mmol/L Calcium 8.1 L 8.1 L (8.7-10.3) mg/dL Magnesium 1.1 L (1.6-2.3) mg/dL Ferritin 873.0 H (22.0-322.0) ng/mL AST 197 H (14-35) U/L ALT 107 H (10-49) U/L Total Protein 5.9 L (6.2-8.2) g/dL Procalcitonin (0.02-0.09) ng/mL 08/04/21 Range/Units 11:07 D-Dimer (<0.60) mg/L FEU Sodium (137-145) mmol/L Calcium (8.7-10.3) mg/dL Magnesium (1.6-2.3) mg/dL Ferritin (22.0-322.0) ng/mL AST (14-35) U/L ALT (10-49) U/L Total Protein (6.2-8.2) g/dL Procalcitonin 0.18 H (0.02-0.09) ng/mL
[2021-08-06] MEDS: NICOTINE 21MG/24HR PATCH TRANSDERM PRN (09:02)
[2021-08-06] MEDS ORDERED: amLODIPine 10 MG TAB PO STA (10:39)
[2021-08-06 13:26] VITALS: BP 152/76; PULSE 65
[2021-08-06] MEDS ORDERED: MAGNESIUM OXIDE 400 MG TAB PO SCH (16:00)
[2021-08-07] MEDS ORDERED: amLODIPine 10 MG TAB PO SCH (09:00)
--- NOTE | 2021-08-08 00:03 | P.DS ---
Providers Date of admission: 08/03/21 20:26 Expected date of discharge: 08/06/21 Attending physician: Aida Arias Consults: 08/04/21 09:38 Consult Physician Routine Consulting Provider: Elliott Chand Consult Reason/Comments: COVID 19 infection Do you want consulting provider notified?: Yes Primary care physician: Veena Mar Hospital Course: Final diagnosis Acute alcohol intoxication with possible acute alcohol withdrawal, present on admission Transaminitis likely related to chronic alcohol abuse Hypomagnesemia Fall with closed head injury, CT of the head and neck was negative Hypertension Osteoarthritis Seasonal ALLERGIES Asthma, not in exacerbation GI prophylaxis DVT prophylaxis Full code Discharge disposition Patient is being discharged in a stable condition with guarded prognosis to home. Patient will follow-up with Dr. Mar in the outpatient setting upon discharge. [facility] Total time taken is greater than 35 minutes. Hospital Course This is a 46-year-old male who was recently admitted acute alcohol intoxication and chest pain and was being closely monitored. Patient was also found to be covid positive although with no respiratory symptoms. Patient received monoclonal antibodies prior to discharge. Currently no reports of chest pain, shortness of breath, or palpitations. Patient is afebrile. No reports of nausea or vomiting and patient is tolerating diet. Patient will be discharged today. Guarded prognosis. On exam vital signs are stable. Cardio S1, S2 are muffled. Respiratory system shows diminished breath sounds at the bases with no wheezing or rhonchi noted. Abdomen is soft and obese, and nontender. Nervous system shows no focal deficits. Please refer to medication reconciliation sheet for a list of medications. The impression and plan of care has been dictated by Zayra Webster, nurse practitioner as directed. MD Luzmaria I have performed a history and examination and MDM of this patient, discussed the same with the dictator, and agree with the dictator's assessment and plan as written ,documented as a scribe. Based on total visit time, I have performed more than 50% of the visit. Any additional findings or plans will be noted. Patient Condition at Discharge: Fair Plan - Discharge Summary New Discharge Prescriptions: New Magnesium Oxide [Mag-Ox] 400 mg PO TID 30 Days #90 tab Ibuprofen [Motrin] 400 mg PO Q6HR PRN tab PRN Reason: Mild Pain Or Fever > 100.5 chlordiazePOXIDE HCl [Librium] 10 mg PO TID #12 cap Ascorbic Acid [Vitamin C] 500 mg PO DAILY #30 tab Cholecalciferol [Vitamin D3 (25 Mcg = 1000 Iu)] 50 mcg PO DAILY #30 tablet Continue Fluticasone Nasal [place] [Flonase Nasal Bend] 2 spr EA NOSTRIL BID traZODone HCL [Desyrel] 100 mg PO HS PRN PRN Reason: Insomnia ALPRAZolam [Xanax] 1 mg PO BID PRN #10 tab PRN Reason: Anxiety Gabapentin [Neurontin] 600 mg PO TID Celecoxib [CeleBREX] 200 mg PO DAILY PRN PRN Reason: Pain Albuterol Sulfate [Proair Hfa] 1 - 2 puff INHALATION RT-QID PRN PRN Reason: Shortness Of Breath Cholestyramine (with Sugar) [[place] Packet] 4 gm PO BID@1000,1800 PRN #30 packet PRN Reason: Diarrhea Nicotine 21Mg/24Hr Patch [Habitrol] 1 patch TRANSDERM DAILY PRN PRN Reason: Cravings Loperamide [Imodium] 2 mg PO QID PRN #20 cap PRN Reason: Diarrhea Acetaminophen Tab [Tylenol] 650 mg PO Q6HR PRN tab PRN Reason: Fever And/ Or Pain Thiamine [Vitamin B-1] 100 mg PO BID-W/MEALS 30 Days #60 tab Pantoprazole Sodium [Protonix] 40 mg PO BID 30 Days #60 tab Discontinued Magnesium Oxide [Mag-Ox] 400 mg PO BID 7 Days #14 tablet Discharge Medication List Fluticasone Nasal [place] [Flonase Nasal [place]] 2 spr EA NOSTRIL BID 10/11/19 [History] traZODone HCL [Desyrel] 100 mg PO HS PRN 05/14/20 [History] ALPRAZolam [Xanax] 1 mg PO BID PRN #10 tab 02/25/21 [Rx] Albuterol Sulfate [Proair Hfa] 1 - 2 puff INHALATION RT-QID PRN 07/06/21 [History] Celecoxib [CeleBREX] 200 mg PO DAILY PRN 07/06/21 [History] Gabapentin [Neurontin] 600 mg PO TID 07/06/21 [History] Acetaminophen Tab [Tylenol] 650 mg PO Q6HR PRN tab 07/10/21 [Rx] Cholestyramine (with Sugar) [[place] Packet] 4 gm PO BID@1000,1800 PRN #30 packet 07/10/21 [Rx] Loperamide [Imodium] 2 mg PO QID PRN #20 cap 07/10/21 [Rx] Pantoprazole Sodium [Protonix] 40 mg PO BID 30 Days #60 tab 07/10/21 [Rx] Thiamine [Vitamin B-1] 100 mg PO BID-W/MEALS 30 Days #60 tab 07/10/21 [Rx] Nicotine 21Mg/24Hr Patch [Habitrol] 1 patch TRANSDERM DAILY PRN 08/02/21 [History] Ascorbic Acid [Vitamin C] 500 mg PO DAILY #30 tab 08/06/21 [Rx] Cholecalciferol [Vitamin D3 (25 Mcg = 1000 Iu)] 50 mcg PO DAILY #30 tablet 08/06/21 [Rx] Ibuprofen [Motrin] 400 mg PO Q6HR PRN tab 08/06/21 [Rx] Magnesium Oxide [Mag-Ox] 400 mg PO TID 30 Days #90 tab 08/06/21 [Rx] chlordiazePOXIDE HCl [Librium] 10 mg PO TID #12 cap 08/06/21 [Rx] Follow up Appointment(s)/Referral(s): Veena Mar DO [Primary Care Provider] - 1-2 days Ambulatory/Diagnostic Orders: Complete Blood Count w/diff [LAB.AMB] Time Frame: 3 Days, Location: None Selected Patient Instructions/Handouts: How to Stop Smoking (DC), Alcohol Intoxication (DC), Abuse of Alcohol (DC), Alcohol Withdrawal (DC) Activity/Diet/Wound Care/Special Instructions: Activity Limited until follow-up Follow-up with primary care provider on discharge Continue to avoid alcohol and follow-up with access line and rehab Continue taking medications as prescribed Continue current diet Repeat labs in 2-3 days Discharge/Stand Alone Forms: [employer] Discharge Disposition: HOME SELF-CARE
== END 2021-08-06 15:45 | disposition home or self-care (01) ==
LOC: EC 18:39 → 6NMEDSUR 20:26
PROVIDERS: ADMIT Hospitalist; ATTEND Hospitalist
DX: F10.129 Alcohol abuse with intoxication, unspecified (principal); K70.9 Alcoholic liver disease, unspecified; K70.10 Alcoholic hepatitis without ascites; I10 Essential (primary) hypertension; M19.90 Unspecified osteoarthritis, unspecified site; K21.9 Gastro-esophageal reflux disease without esophagitis; G40.909 Epilepsy, unspecified, not intractable, without status epilepticus; K29.20 Alcoholic gastritis without bleeding; M48.00 Spinal stenosis, site unspecified; I83.93 Asymptomatic varicose veins of bilateral lower extremities; F32.A Depression, unspecified; F41.9 Anxiety disorder, unspecified; G47.33 Obstructive sleep apnea (adult) (pediatric); R60.0 Localized edema; R07.9 Chest pain, unspecified; R79.89 Other specified abnormal findings of blood chemistry; E66.9 Obesity, unspecified; Z68.34 Body mass index [BMI] 34.0-34.9, adult; E83.42 Hypomagnesemia; G89.29 Other chronic pain; M54.9 Dorsalgia, unspecified; S09.90XA Unspecified injury of head, initial encounter; J45.909 Unspecified asthma, uncomplicated; U07.1 COVID-19; F17.200 Nicotine dependence, unspecified, uncomplicated; R25.1 Tremor, unspecified; Y90.8 Blood alcohol level of 240 mg/100 ml or more; Z87.19 Personal history of other diseases of the digestive system; Z87.01 Personal history of pneumonia (recurrent); W01.0XXA Fall on same level from slipping, tripping and stumbling without subsequent striking against object, initial encounter; Z79.1 Long term (current) use of non-steroidal anti-inflammatories (NSAID); Z79.899 Other long term (current) drug therapy; Z88.8 Allergy status to other drugs, medicaments and biological substances; Z88.1 Allergy status to other antibiotic agents; Z88.0 Allergy status to penicillin; Z71.6 Tobacco abuse counseling; Z71.9 Counseling, unspecified; Z71.3 Dietary counseling and surveillance; Z90.49 Acquired absence of other specified parts of digestive tract; Z82.0 Family history of epilepsy and other diseases of the nervous system; Z80.8 Family history of malignant neoplasm of other organs or systems; Z82.49 Family history of ischemic heart disease and other diseases of the circulatory system; Z81.8 Family history of other mental and behavioral disorders; Z82.61 Family history of arthritis
CPT/HCPCS: 96376 ×3; 96361 ×2; 96365; 96366 ×2; 96367; 96372 ×4; 96375; 82075; 99285; 36415; 94640; 93005; 85379; 80053; 80048 ×2; 80076; 82728; 82150; 83615; 83690; 83735 ×4; 84100; 85025; 85610; 86140; 81003; 80306; 84145; 87635; 71045; 93970; 72125; 70450; G0378 ×4; M0247; G0480; S4990 ×2; J2060 ×4; J3411 ×3; J1650 ×3; J3475; Q0247; 80320

== ENCOUNTER 2021-08-08 10:07 | Emergency (ER) | payer OTHER ==
[2021-08-08] MEDS ORDERED: SODIUM CHLORIDE 0.9% 2,000 ML IV STA (10:23)
[2021-08-08 10:58] LABS: Basophils # (A) 0.1 k/uL (0-0.2); Basophils % (A) 1 %; Eosinophils # (A) 0.1 k/uL (0-0.7); Eosinophils % (A) 2 %; HCT 39.6 % (39.0-53.0); HGB 13.1 gm/dL (13.0-17.5); Lymphocytes # (A) 1.7 k/uL (1.0-4.8); Lymphocytes % (A) 42 %; MCH 31.6 pg (25.0-35.0); MCHC 32.9 g/dL (31.0-37.0); MCV 95.9 fL (80.0-100.0); Mean Platelet Volume 7.4; Monocytes # (A) 0.2 k/uL (0-1.0); Monocytes % (A) 5 %; Neutrophils # (A) 1.9 k/uL (1.3-7.7); Neutrophils % (A) 48 %; Platelet Count 212 k/uL (150-450); RBC 4.13 m/uL (4.30-5.90); RDW 14.5 % (11.5-15.5)
[2021-08-08] MEDS ORDERED: ONDANSETRON 4 MG/2 ML VIAL IVP STA (11:55)
[2021-08-08] MEDS ORDERED: THIAMINE 100 MG/ML 2 ML VIAL IM STA (11:56)
[2021-08-08 12:06] LABS: ALT 210 U/L (4-49); AST 350 U/L (17-59); African American GFR (CKD) >90 (>60 ml/min/1.73 sqM); Albumin 4.1 g/dL (3.5-5.0); Alcohol <10 mg/dL; Alkaline Phosphatase 52 U/L (38-126); Anion Gap 5 mmol/L; Blood Urea Nitrogen 10 mg/dL (9-20); Calcium 8.8 mg/dL (8.4-10.2); Carbon Dioxide 30 mmol/L (22-30); Chloride 102 mmol/L (98-107); Glucose 83 mg/dL (74-99); Lipase 130 U/L (23-300); Magnesium 1.1 mg/dL (1.6-2.3); Non-African American GFR(CKD) >90 (>60 ml/min/1.73 sqM); Potassium 4.4 mmol/L (3.5-5.1); Sodium 137 mmol/L (137-145); Total Protein 6.6 g/dL (6.3-8.2)
[2021-08-08] MEDS ORDERED: MAGNESIUM SULFATE-D5W PMX 1 GM in DEXTROSE/WATER 1 100ML.BAG IVPB ONE (12:37)
[2021-08-08] MEDS ORDERED: MAGNESIUM OXIDE 400 MG TAB PO STA (12:37)
--- NOTE | 2021-08-08 13:29 | ED ---
Alcohol HPI - General Chief Complaint: Alcohol Stated Complaint: ETOH Time Seen by Provider: 08/08/21 10:23 Source: patient, EMS, RN notes reviewed Mode of arrival: EMS Limitations: no limitations - History of Present Illness Initial Comments: This a 46-year-old male presents emergency Department with chief complaint of alcoholic abuse. Patient was just discharged 2 days ago from the hospital after 3 days states. Patient was discharged with no new medications. He is scheduled for alcohol rehab next week. Patient states that he found a half bottle of alcohol at home he did drink yesterday. Patient states he has not drank any alcohol today. Patient has been suicidal or homicidal denies any physical complaints. Patient denies any vomiting but states that he is nauseated no other associated complaints. - Related Data Home Medications Medication Instructions Recorded Confirmed Fluticasone Nasal [place] [Flonase 2 spr EA NOSTRIL BID 10/11/19 08/08/21 Nasal [place]] traZODone HCL [Desyrel] 100 mg PO HS PRN 05/14/20 08/08/21 Albuterol Sulfate [Proair Hfa] 1 - 2 puff INHALATION RT-QID PRN 07/06/21 Celecoxib [CeleBREX] 200 mg PO DAILY PRN 07/06/21 08/08/21 Gabapentin [Neurontin] 600 mg PO TID 07/06/21 08/08/21 Nicotine 21Mg/24Hr Patch [Habitrol] 1 patch TRANSDERM DAILY PRN 08/02/21 08/08/21 chlordiazePOXIDE HCl [Librium] See Taper PO TID 08/08/21 08/08/21 Previous Rx's Medication Instructions Recorded ALPRAZolam [Xanax] 1 mg PO BID PRN #10 tab 02/25/21 Acetaminophen Tab [Tylenol] 650 mg PO Q6HR PRN tab 07/10/21 Cholestyramine (with Sugar) 4 gm PO BID@1000,1800 PRN #30 07/10/21 [[place] Packet] packet Loperamide [Imodium] 2 mg PO QID PRN #20 cap 07/10/21 Pantoprazole Sodium [Protonix] 40 mg PO BID 30 Days #60 tab 07/10/21 Thiamine [Vitamin B-1] 100 mg PO BID-W/MEALS 30 Days #60 01/26/22 tab Ascorbic Acid [Vitamin C] 500 mg PO DAILY #30 tab 08/06/21 Cholecalciferol [Vitamin D3 (25 50 mcg PO DAILY #30 tablet 08/06/21 Mcg = 1000 Iu)] Ibuprofen [Motrin] 400 mg PO Q6HR PRN tab 08/06/21 Magnesium Oxide [Mag-Ox] 400 mg PO TID 30 Days #90 tab 08/06/21 Ondansetron Odt [Zofran Odt] 4 mg PO Q8HR PRN #10 tab 08/08/21 Allergies Allergy/AdvReac Type Severity Reaction Status Date / Time Cephalosporins Allergy Severe Anaphylaxis Verified 08/08/21 11:47 diphenhydramine HCl Allergy Severe Anaphylaxis Verified 08/08/21 11:47 [From Benadryl] divalproex sodium Allergy Severe Anaphylaxis Verified 08/08/21 11:47 [From Depakote] ceftriaxone [From Rocephin] Allergy Anaphylaxis Verified 08/08/21 11:47 cephalexin [From Keflex] Allergy Anaphylaxis Verified 08/08/21 11:47 droperidol Allergy Anaphylaxis Verified 08/08/21 11:47 lisinopril Allergy Anaphylaxis Verified 08/08/21 11:47 Review of Systems ROS Statement: Those systems with pertinent positive or pertinent negative responses have been documented in the HPI. ROS Other: All systems not noted in ROS Statement are negative. Past Medical History Past Medical History: GERD/Reflux, GI Bleed, Hypertension, Liver Disease, Osteoarthritis (OA), Pneumonia, Seizure Disorder, Sleep Apnea/CPAP/BIPAP, Vascular Disorder Additional Past Medical History / Comment(s): Pt recently admitted to [facility] on 07/26/21 with alcohol intoxication/abuse/fall/marijuana abuse. Other hx: Occasional bilateral pedal edema if stands long, arthritis possibly in back/ribs, MILIND without device, ETOH abuse, alcoholic seizures/blackouts/fainting 2017, alcoholic hepatitis, alcoholic gastritis, upper GI bleed, hypomagnesemia, spinal stenosis/herniated disc with surgery, bilateral varicose veins, hemorrhoids History of Any Multi-Drug Resistant Organisms: None Reported Past Surgical History: Appendectomy, Back Surgery, Tonsillectomy Additional Past Surgical History / Comment(s): bilateral discectomy, discectomy L5-S1, EGD Past Anesthesia/Blood Transfusion Reactions: Motion Sickness Past Psychological History: Anxiety, Depression Smoking Status: Current every day smoker Past Alcohol Use History: Abuse, Heavy Past Drug Use History: Marijuana - Past Family History Father Family Medical History: Cancer, Dementia, Neurologic Disorder Additional Family Medical History / Comment(s): melanoma, parkinsons, schizophrenic Mother Family Medical History: Hypertension, Musculoskeletal Disorder, Neurologic Disorder, Osteoarthritis (OA) Additional Family Medical History / Comment(s): Mother of motor neuron disease at the age of 78yrs. General Exam Limitations: no limitations General appearance: alert, in no apparent distress Head exam: Present: atraumatic, normocephalic, normal inspection Eye exam: Present: normal appearance, PERRL, EOMI. Absent: scleral icterus, conjunctival injection, periorbital swelling ENT exam: Present: normal exam, normal oropharynx, mucous membranes moist Neck exam: Present: normal inspection, full ROM. Absent: tenderness, meningismus, lymphadenopathy Respiratory exam: Present: normal lung sounds bilaterally. Absent: respiratory distress, wheezes, rales, rhonchi, stridor Cardiovascular Exam: Present: regular rate, normal rhythm, normal heart sounds. Absent: systolic murmur, diastolic murmur, rubs, gallop, clicks GI/Abdominal exam: Present: soft, normal bowel sounds. Absent: distended, tenderness, guarding, rebound, rigid Neurological exam: Present: alert, oriented X3, CN II-XII intact Skin exam: Present: warm, dry, intact, normal color. Absent: rash Course Vital Signs 08/08/21 10:31 Temperature 98.8 F Pulse Rate 101 H Respiratory 18 Rate Blood Pressure 142/97 O2 Sat by Pulse 98 Oximetry Medical Decision Making - Medical Decision Making Patient has mild hypomagnesemia this was replaced. Patient has had a history of alcohol abuse. Patient just was discharged from the hospital he only had alcohol intake for one day. Patient will be discharged she is scheduled for rehab. - Lab Data Result diagrams: 08/08/21 10:31 08/08/21 11:40 Lab Results 08/08/21 08/08/21 Range/Units 10:31 11:40 WBC 4.0 (3.8-10.6) k/uL RBC 4.13 L (4.30-5.90) m/uL Hgb 13.1 (13.0-17.5) gm/dL Hct 39.6 (39.0-53.0) % MCV 95.9 (80.0-100.0) fL MCH 31.6 (25.0-35.0) pg MCHC 32.9 (31.0-37.0) g/dL RDW 14.5 (11.5-15.5) % Plt Count 212 (150-450) k/uL MPV 7.4 Neutrophils % 48 % Lymphocytes % 42 % Monocytes % 5 % Eosinophils % 2 % Basophils % 1 % Neutrophils # 1.9 (1.3-7.7) k/uL Lymphocytes # 1.7 (1.0-4.8) k/uL Monocytes # 0.2 (0-1.0) k/uL Eosinophils # 0.1 (0-0.7) k/uL Basophils # 0.1 (0-0.2) k/uL Sodium 137 (137-145) mmol/L Potassium 4.4 (3.5-5.1) mmol/L Chloride 102 (98-107) mmol/L Carbon Dioxide 30 (22-30) mmol/L Anion Gap 5 mmol/L BUN 10 (9-20) mg/dL Creatinine 0.56 L (0.66-1.25) mg/dL Est GFR (CKD-EPI)AfAm >90 (>60 ml/min/1.73 sqM) Est GFR (CKD-EPI)NonAf >90 (>60 ml/min/1.73 sqM) Glucose 83 (74-99) mg/dL Calcium 8.8 (8.4-10.2) mg/dL Magnesium 1.1 L (1.6-2.3) mg/dL Total Bilirubin 1.0 (0.2-1.3) mg/dL AST 350 H (17-59) U/L ALT 210 H (4-49) U/L Alkaline Phosphatase 52 (38-126) U/L Total Protein 6.6 (6.3-8.2) g/dL Albumin 4.1 (3.5-5.0) g/dL Lipase 130 (23-300) U/L Serum Alcohol <10 mg/dL Disposition Clinical Impression: Hypomagnesemia, Alcohol abuse Disposition: HOME SELF-CARE Condition: Stable Instructions (If sedation given, give patient instructions): Abuse of Alcohol (ED) Additional Instructions: Please return to the Emergency Department if symptoms worsen or any other concerns. Prescriptions: Ondansetron Odt [Zofran Odt] 4 mg PO Q8HR PRN #10 tab PRN Reason: Nausea Is patient prescribed a controlled substance at d/c from ED?: No Referrals: Veena Bynum DO [Primary Care Provider] - 1-2 days
[2021-08-08 13:42] LABS: Appearance,Urine Clear (Clear); Bilirubin,Urine Negative (Negative); Blood,Urine Negative (Negative); Color,Urine Yellow; Glucose,Urine (UA) Negative (Negative); Ketones,Urine Negative (Negative); Leukocyte Esterase,Urine Negative (Negative); Nitrite,Urine Negative (Negative); PH, Urine 5.5 (5.0-8.0); Protein,Urine Negative (Negative); Specific Gravity,Urine 1.016 (1.001-1.035); Urobilinogen,Urine <2.0 mg/dL (<2.0)
[2021-08-08 15:07] VITALS: BP 152/94; PULSE 95; RESP 20; TEMP 98.2
== END 2021-08-08 15:07 | disposition home or self-care (01) ==
LOC: EC 10:07
DX: F10.10 Alcohol abuse, uncomplicated (principal); E83.42 Hypomagnesemia; I10 Essential (primary) hypertension; K21.9 Gastro-esophageal reflux disease without esophagitis; M19.90 Unspecified osteoarthritis, unspecified site; G40.909 Epilepsy, unspecified, not intractable, without status epilepticus; F32.A Depression, unspecified; F41.9 Anxiety disorder, unspecified; F17.200 Nicotine dependence, unspecified, uncomplicated; F12.90 Cannabis use, unspecified, uncomplicated; Z79.899 Other long term (current) drug therapy; Y90.0 Blood alcohol level of less than 20 mg/100 ml
CPT/HCPCS: 36415; 80053; 83690; 83735; 85025; 81003; 99284; 96365; 96366; 96375; 96361 ×3; 96372; G0480; J3411; J2405; J3475; 80320

== ENCOUNTER 2021-10-02 21:50 | Emergency (ER) | payer OTHER ==
[2021-10-02 22:02] VITALS: TEMP 98.4
[2021-10-02] MEDS ORDERED: LORazepam 2 MG/ML INJ IV STA (23:29)
[2021-10-02] MEDS ORDERED: SODIUM CHLORIDE 0.9% 1,000 ML IV ONE (23:29)
[2021-10-02] MEDS ORDERED: ONDANSETRON 4 MG/2 ML VIAL IVP STA (23:29)
--- NOTE | 2021-10-03 01:36 | ED ---
Abdominal Pain HPI - General Chief Complaint: Abdominal Pain Stated Complaint: Alcohol Time Seen by Provider: 10/02/21 22:24 Source: patient, EMS Mode of arrival: EMS - History of Present Illness Initial Comments: 's patient is 46-year-old man who presents with complaint that he has had some vomiting, epigastric pain, and feels unwell after drinking. Patient states that he had been dependent on alcohol, went to rehabilitation and then when he got out he has resumed drinking. MD Complaint: other -: hour(s) Location: epigastric Radiation: none Migration to: no migration Severity: moderate Quality: burning Consistency: constant Improves With: nothing Worsens With: nothing Associated Symptoms: nausea, vomiting - Related Data Home Medications Medication Instructions Recorded Confirmed Fluticasone Nasal [place] [Flonase 2 spr EA NOSTRIL BID 10/11/19 10/10/21 Nasal [place]] traZODone HCL [Desyrel] 100 mg PO HS PRN 05/14/20 10/10/21 Celecoxib [CeleBREX] 200 mg PO DAILY 07/06/21 10/10/21 Gabapentin [Neurontin] 600 mg PO TID 07/06/21 10/10/21 Cholecalciferol [Vitamin D3 (25 25 mcg PO DAILY 10/02/21 10/10/21 Mcg = 1000 Iu)] Nicotine 14Mg/24Hr Patch [Habitrol] 1 patch TRANSDERM DAILY PRN 10/02/21 10/10/21 Pantoprazole Sodium [Protonix] 40 mg PO DAILY 10/02/21 10/10/21 Previous Rx's Medication Instructions Recorded Magnesium Oxide [Mag-Ox] 400 mg PO TID 30 Days #90 tab 08/06/21 Thiamine [Vitamin B-1] 100 mg PO BID-W/MEALS #60 tab 10/08/21 Acetaminophen Tab [Tylenol] 650 mg PO Q6HR PRN tab 10/15/21 chlordiazePOXIDE HCl [Librium] 0 mg PO DIRECTED 4 Days #9 cap 10/15/21 Allergies Allergy/AdvReac Type Severity Reaction Status Date / Time Cephalosporins Allergy Severe Anaphylaxis Verified 10/10/21 17:17 diphenhydramine HCl Allergy Severe Anaphylaxis Verified 10/10/21 17:17 [From Benadryl] divalproex sodium Allergy Severe Anaphylaxis Verified 10/10/21 17:17 [From Depakote] ceftriaxone [From Rocephin] Allergy Anaphylaxis Verified 10/10/21 17:17 cephalexin [From Keflex] Allergy Anaphylaxis Verified 10/10/21 17:17 droperidol Allergy Anaphylaxis Verified 10/10/21 17:17 lisinopril Allergy Anaphylaxis Verified 10/10/21 17:17 Review of Systems ROS Statement: Those systems with pertinent positive or pertinent negative responses have been documented in the HPI. ROS Other: All systems not noted in ROS Statement are negative. Constitutional: Denies: fever, weakness Respiratory: Denies: cough, dyspnea Cardiovascular: Denies: chest pain, palpitations Gastrointestinal: Reports: abdominal pain, nausea, vomiting. Denies: diarrhea, constipation, hematemesis, melena, hematochezia Genitourinary: Denies: dysuria, hematuria, testicular pain Skin: Denies: rash Neurological: Denies: headache, weakness Psychiatric: Reports: anxiety Past Medical History Past Medical History: GERD/Reflux, GI Bleed, Hypertension, Liver Disease, Osteoarthritis (OA), Pneumonia, Seizure Disorder, Sleep Apnea/CPAP/BIPAP, Vascular Disorder Additional Past Medical History / Comment(s): Pt recently admitted to [facility] on 07/26/21 with alcohol intoxication/abuse/fall/marijuana abuse. Other hx: Occasional bilateral pedal edema if stands long, arthritis possibly in back/ribs, MILIND without device, ETOH abuse, alcoholic seizures/blackouts/fainting 2017, alcoholic hepatitis, alcoholic gastritis, upper GI bleed, hypomagnesemia, spinal stenosis/herniated disc with surgery, bilateral varicose veins, hemorrhoids History of Any Multi-Drug Resistant Organisms: None Reported Past Surgical History: Appendectomy, Back Surgery, Tonsillectomy Additional Past Surgical History / Comment(s): bilateral discectomy, discectomy L5-S1, EGD Past Anesthesia/Blood Transfusion Reactions: Motion Sickness Past Psychological History: Anxiety, Depression Smoking Status: Current every day smoker Past Alcohol Use History: Abuse, Heavy Past Drug Use History: Marijuana - Past Family History Father Family Medical History: Cancer, Dementia, Neurologic Disorder Additional Family Medical History / Comment(s): melanoma, parkinsons, schizophrenic Mother Family Medical History: Hypertension, Musculoskeletal Disorder, Neurologic Diso rder, Osteoarthritis (OA) Additional Family Medical History / Comment(s): Mother of motor neuron disease at the age of 78yrs. General Exam General appearance: alert, in no apparent distress, appears intoxicated Head exam: Present: atraumatic, normocephalic Eye exam: Present: normal appearance Neck exam: Present: normal inspection Respiratory exam: Present: normal lung sounds bilaterally. Absent: respiratory distress, wheezes, rales, rhonchi, stridor Cardiovascular Exam: Present: normal rhythm, tachycardia, normal heart sounds. Absent: systolic murmur, diastolic murmur, rubs, gallop GI/Abdominal exam: Present: soft. Absent: distended, tenderness, guarding, rebound, rigid, mass, pulsatile mass, hernia Extremities exam: Present: normal inspection, normal capillary refill. Absent: pedal edema, calf tenderness Back exam: Present: normal inspection Neurological exam: Present: alert Skin exam: Present: warm, dry, intact, normal color. Absent: rash Course Vital Signs 10/02/21 10/03/21 21:55 01:45 Temperature 98.4 F Pulse Rate 115 H 99 Respiratory 24 16 Rate Blood Pressure 135/94 118/93 O2 Sat by Pulse 97 98 Oximetry Disposition Clinical Impression: Alcohol intoxication Disposition: HOME SELF-CARE Condition: Good Instructions (If sedation given, give patient instructions): Alcohol Intoxication (DC) Is patient prescribed a controlled substance at d/c from ED?: No Referrals: Veena Bynum DO [Primary Care Provider] - 1-2 days
[2021-10-03 01:46] VITALS: BP 118/93; PULSE 99; RESP 16
[2021-10-03] MEDS ORDERED: LORazepam 1 MG TAB PO STA (01:47)
== END 2021-10-03 02:19 | disposition home or self-care (01) ==
LOC: EC 21:50
DX: F10.129 Alcohol abuse with intoxication, unspecified (principal); I10 Essential (primary) hypertension; K21.9 Gastro-esophageal reflux disease without esophagitis; M19.90 Unspecified osteoarthritis, unspecified site; F32.A Depression, unspecified; F41.9 Anxiety disorder, unspecified; G40.909 Epilepsy, unspecified, not intractable, without status epilepticus; F17.200 Nicotine dependence, unspecified, uncomplicated; F12.90 Cannabis use, unspecified, uncomplicated; Z79.899 Other long term (current) drug therapy; Y90.9 Presence of alcohol in blood, level not specified
CPT/HCPCS: 99284; 96374; 96375; 96361; J2060; J2405

== ENCOUNTER 2021-10-05 16:26 | Observation (INO) | payer OTHER ==
[2021-10-05] MEDS ORDERED: SODIUM CHLORIDE 0.9% 1,000 ML IV STA ×2 (17:08→18:53)
[2021-10-05] MEDS ORDERED: LORazepam 2 MG/ML INJ IV PRN ×2 (17:09)
[2021-10-05] MEDS ORDERED: THIAMINE 100 MG/ML 2 ML VIAL IM STA (17:09)
[2021-10-05] MEDS: LORazepam 2 MG/ML INJ IV PRN (17:25)
[2021-10-05 17:47] LABS: Basophils % (A) 1 %; Eosinophils % (A) 0 %; HCT 46.6 % (39.0-53.0); HGB 15.6 gm/dL (13.0-17.5); Lymphocytes # (A) 2.2 k/uL (1.0-4.8); Lymphocytes % (A) 27 %; MCH 30.6 pg (25.0-35.0); MCHC 33.5 g/dL (31.0-37.0); MCV 91.3 fL (80.0-100.0); Mean Platelet Volume 7.1; Monocytes # (A) 0.4 k/uL (0-1.0); Monocytes % (A) 5 %; Neutrophils # (A) 5.4 k/uL (1.3-7.7); Neutrophils % (A) 66 %; Platelet Count 263 k/uL (150-450); RDW 13.4 % (11.5-15.5); WBC 8.2 k/uL (3.8-10.6)
[2021-10-05 17:48] LABS: INR 0.8 (<1.2); Partial Thromboplastin Time 22.4 sec (22.0-30.0); Prothrombin Time 9.5 sec (9.0-12.0)
[2021-10-05 17:49] LABS: ALT 322 U/L (4-49); AST 443 U/L (17-59); African American GFR (CKD) >90 (>60 ml/min/1.73 sqM); Albumin 5.1 g/dL (3.5-5.0); Alkaline Phosphatase 60 U/L (38-126); Amylase 71 U/L (30-110); Anion Gap 23 mmol/L; Blood Urea Nitrogen 20 mg/dL (9-20); Calcium 8.8 mg/dL (8.4-10.2); Carbon Dioxide 24 mmol/L (22-30); Chloride 92 mmol/L (98-107); Glucose 89 mg/dL (74-99); Lipase 144 U/L (23-300); Magnesium 1.8 mg/dL (1.6-2.3); Non-African American GFR(CKD) >90 (>60 ml/min/1.73 sqM); Potassium 4.8 mmol/L (3.5-5.1); Sodium 139 mmol/L (137-145); Total Bilirubin 2.5 mg/dL (0.2-1.3); Total Protein 8.1 g/dL (6.3-8.2)
[2021-10-05 18:03] LABS: Alcohol 338 mg/dL
--- NOTE | 2021-10-05 18:06 | XR ---
EXAMINATION TYPE: XR chest 1V portable DATE OF EXAM: 10/05/2021 COMPARISON: 08/05/2021 HISTORY: Chest pain TECHNIQUE: FINDINGS: Heart and mediastinum are normal. Lungs are clear. Diaphragm is normal. Bony thorax appears normal. IMPRESSION: Normal chest. No change.
[2021-10-05] MEDS ORDERED: ONDANSETRON 4 MG/2 ML VIAL IVP STA (18:14)
[2021-10-05] MEDS ORDERED: FAMOTIDINE 20 MG/2 ML VIAL IV STA (18:14)
[2021-10-05] MEDS ORDERED: MORPHINE SULFATE 4 MG/ML SYRINGE IVP STA (18:14)
--- NOTE | 2021-10-05 19:12 | ED ---
General Adult HPI - General Chief complaint: Alcohol Stated complaint: nausea Time Seen by Provider: 10/05/21 17:05 Source: patient, RN notes reviewed, old records reviewed Mode of arrival: ambulatory Limitations: no limitations - History of Present Illness Initial comments: Patient is a 46-year-old male with past medical history remarkable for chronic alcohol abuse who presents emergency Department complaining of alcohol withdrawals and acute alcohol intoxication. Patient states that symptoms started today. He endorses some epigastric abdominal discomfort since this morning. Endorses nausea, nonbilious nonbloody emesis. Denies any diarrhea. Denies any history of pancreatitis. Denies any chest pain, shortness of breath. Denies any headache. States he normally is not tremulous but is tremulous now. Does have a history of alcohol withdrawals, delirium tremens. Presents over concern for alcohol withdrawals. He has been here previously for similar complaints. Denies any visual or auditory hallucinations. Denies any suicidal or homicidal ideations, attempts, plans. - Related Data Home Medications Medication Instructions Recorded Confirmed Fluticasone Nasal [place] [Flonase 2 spr EA NOSTRIL BID PRN 10/11/19 10/02/21 Nasal [place]] traZODone HCL [Desyrel] 100 mg PO HS PRN 05/14/20 10/02/21 Albuterol Sulfate [Proair Hfa] 1 - 2 puff INHALATION RT-QID PRN 07/06/21 10/02/21 Celecoxib [CeleBREX] 200 mg PO DAILY PRN 07/06/21 10/02/21 Gabapentin [Neurontin] 600 mg PO TID 07/06/21 10/02/21 Cholecalciferol [Vitamin D3 (25 25 mcg PO DAILY 10/02/21 10/02/21 Mcg = 1000 Iu)] Nicotine 14Mg/24Hr Patch [Habitrol 1 patch TRANSDERM DAILY PRN 10/02/21 10/02/21 14Mg/24Hr Patch] Pantoprazole Sodium [Protonix] 40 mg PO DAILY 10/02/21 10/02/21 Previous Rx's Medication Instructions Recorded ALPRAZolam [Xanax] 1 mg PO BID PRN #10 tab 02/25/21 Acetaminophen Tab [Tylenol] 650 mg PO Q6HR PRN tab 07/10/21 Cholestyramine (with Sugar) 4 gm PO BID@1000,1800 PRN #30 07/10/21 [Questran Packet] packet Loperamide [Imodium] 2 mg PO QID PRN #20 cap 07/10/21 Thiamine [Vitamin B-1] 100 mg PO BID-W/MEALS 30 Days #60 07/10/21 tab Ascorbic Acid [Vitamin C] 500 mg PO DAILY #30 tab 08/06/21 Ibuprofen [Motrin] 400 mg PO Q6HR PRN tab 08/06/21 Magnesium Oxide [Mag-Ox] 400 mg PO TID 30 Days #90 tab 08/06/21 Ondansetron Odt [Zofran Odt] 4 mg PO Q8HR PRN #10 tab 08/08/21 Allergies Allergy/AdvReac Type Severity Reaction Status Date / Time Cephalosporins Allergy Severe Anaphylaxis Verified 10/05/21 17:12 diphenhydramine HCl Allergy Severe Anaphylaxis Verified 10/05/21 17:12 [From Benadryl] divalproex sodium Allergy Severe Anaphylaxis Verified 10/05/21 17:12 [From Depakote] ceftriaxone [From Rocephin] Allergy Anaphylaxis Verified 10/05/21 17:12 cephalexin [From Keflex] Allergy Anaphylaxis Verified 10/05/21 17:12 droperidol Allergy Anaphylaxis Verified 10/05/21 17:12 lisinopril Allergy Anaphylaxis Verified 10/05/21 17:12 Review of Systems ROS Statement: Those systems with pertinent positive or pertinent negative responses have been documented in the HPI. Review of Systems: CONST: Denies fever EYES: Denies blurry vision ENT: Denies nasal congestion C/V: Denies Chest pain RESP: Denies shortness of breath GI: Endorses abdominal pain : Denies dysuria SKIN: Denies rash. MSK: Denies joint pain. NEURO: Denies headache PSYCH: Denies suicidal and homicidal ideations/plans/attempts. Denies visual or auditory hallucinations. ROS Other: All systems not noted in ROS Statement are negative. Past Medical History Past Medical History: GERD/Reflux, GI Bleed, Hypertension, Liver Disease, Osteoarthritis (OA), Pneumonia, Seizure Disorder, Sleep Apnea/CPAP/BIPAP, Vascular Disorder Additional Past Medical History / Comment(s): Pt recently admitted to [facility] on 07/26/21 with alcohol intoxication/abuse/fall/marijuana abuse. Other hx: Occasional bilateral pedal edema if stands long, arthritis possibly in back/ribs, MILIND without device, ETOH abuse, alcoholic seizures/blackouts/fainting 2017, alcoholic hepatitis, alcoholic gastritis, upper GI bleed, hypomagnesemia, spinal stenosis/herniated disc with surgery, bilateral varicose veins, hemorrhoids History of Any Multi-Drug Resistant Organisms: None Reported Past Surgical History: Appendectomy, Back Surgery, Tonsillectomy Additional Past Surgical History / Comment(s): bilateral discectomy, discectomy L5-S1, EGD Past Anesthesia/Blood Transfusion Reactions: Motion Sickness Past Psychological History: Anxiety, Depression Smoking Status: Current every day smoker Past Alcohol Use History: Abuse, Heavy Past Drug Use History: Marijuana - Past Family History Father Family Medical History: Cancer, Dementia, Neurologic Disorder Additional Family Medical History / Comment(s): melanoma, parkinsons, schizophrenic Mother Family Medical History: Hypertension, Musculoskeletal Disorder, Neurologic Disorder, Osteoarthritis (OA) Additional Family Medical History / Comment(s): Mother of motor neuron disease at the age of 78yrs. General Exam - General Exam Comments Initial Comments: General: Appears in no acute distress. Appears acutely intoxicated with alcohol. HEAD: Normal with no signs of head trauma. EYES: PERRLA, EOMI, conjunctiva normal, no discharge. Pupils are 3 mm and equal bilaterally. ENT: Hearing grossly intact, normal oropharynx. RESPIRATORY: Clear breath sounds bilaterally. No wheezes, rales, or rhonchi. C/V: Mildly tachycardic with a regular rhythm. S1 and S2 auscultated. No peripheral edema. Peripheral pulses are 2+ and intact throughout. ABD: Abdomen is soft, nondistended. Patient does have mild epigastric abdominal tenderness to palpation. No guarding. No rebound tenderness. No peritoneal signs. No CVA tenderness on percussion. EXT: Normal range of motion, no obvious deformity SKIN: No rashes or lesions observed on exposed skin. NEURO: Alert and oriented 4. No focal sensory strength deficits. Limitations: no limitations Course Vital Signs 10/05/21 16:30 Temperature 97.8 F Pulse Rate 108 H Respiratory 20 Rate Blood Pressure 158/98 O2 Sat by Pulse 98 Oximetry Medical Decision Making - Medical Decision Making Based on the patient's presentation and physical exam, do believe he is likely experiencing alcohol intoxication. Also has a history of alcohol withdrawals and he may be experiencing that as well as this time.CIWA protocol will be ordered. We will obtain abdominal laboratory studies. He'll be given IV fluids as well as a GI cocktail. Patient was in agreement with this plan. Patient will receive ativan based on CIWA. Screening EKG showed no signs of acute ischemia. Laboratory studies were remarkable for a undetectable troponin. Patient has a slightly elevated bilirubin of 2.5. Patient has a mildly elevated AST and ALT in the setting of alcoholic liver disease. There appeared to be near his baseline. Laboratory studies otherwise are relatively unremarkable. Serum alcohol level is 338, which is likely causing the anion gap present on labs. I discussed the findings with the patient. Due to the elevated LFTs, I did recommend we obtain CT abd and pelvis, as he has no recent history of imaging. He was in agreement this plan. CT and pelvis showed no signs of acute abdominal process. There is diverticulosis without diverticulitis. Fatty infiltration of the liver. No significant change. I did discuss the case with the admitting team, Dr. Santillan of [facility] who accepted the patient. Patient was admitted in stable condition. We will continue IV fluid hydration and observation over concern for alcohol withdrawals. - Lab Data Result diagrams: 10/05/21 17:12 10/05/21 17:12 Lab Results 10/05/21 10/05/21 10/05/21 Range/Units 17:12 17:12 17:12 WBC 8.2 (3.8-10.6) k/uL RBC 5.10 (4.30-5.90) m/uL Hgb 15.6 (13.0-17.5) gm/dL Hct 46.6 (39.0-53.0) % MCV 91.3 (80.0-100.0) fL MCH 30.6 (25.0-35.0) pg MCHC 33.5 (31.0-37.0) g/dL RDW 13.4 (11.5-15.5) % Plt Count 263 (150-450) k/uL MPV 7.1 Neutrophils % 66 % Lymphocytes % 27 % Monocytes % 5 % Eosinophils % 0 % Basophils % 1 % Neutrophils # 5.4 (1.3-7.7) k/uL Lymphocytes # 2.2 (1.0-4.8) k/uL Monocytes # 0.4 (0-1.0) k/uL Eosinophils # 0.0 (0-0.7) k/uL Basophils # 0.0 (0-0.2) k/uL PT 9.5 (9.0-12.0) sec INR 0.8 (<1.2) APTT 22.4 (22.0-30.0) sec Sodium 139 (137-145) mmol/L Potassium 4.8 (3.5-5.1) mmol/L Chloride 92 L (98-107) mmol/L Carbon Dioxide 24 (22-30) mmol/L Anion Gap 23 mmol/L BUN 20 (9-20) mg/dL Creatinine 0.73 (0.66-1.25) mg/dL Est GFR (CKD-EPI)AfAm >90 (>60 ml/min/1.73 sqM) Est GFR (CKD-EPI)NonAf >90 (>60 ml/min/1.73 sqM) Glucose 89 (74-99) mg/dL Calcium 8.8 (8.4-10.2) mg/dL Magnesium 1.8 (1.6-2.3) mg/dL Total Bilirubin 2.5 H (0.2-1.3) mg/dL AST 443 H (17-59) U/L ALT 322 H (4-49) U/L Alkaline Phosphatase 60 (38-126) U/L Troponin I (0.000-0.034) ng/mL Total Protein 8.1 (6.3-8.2) g/dL Albumin 5.1 H (3.5-5.0) g/dL Amylase 71 (30-110) U/L Lipase 144 (23-300) U/L Urine Color Urine Appearance (Clear) Urine pH (5.0-8.0) Ur Specific [place] (1.001-1.035) Urine Protein (Negative) Urine Glucose (UA) (Negative) Urine Ketones (Negative) Urine Blood (Negative) Urine Nitrite (Negative) Urine Bilirubin (Negative) Urine Urobilinogen (<2.0) mg/dL Ur Leukocyte Esterase (Negative) Urine RBC (0-5) /hpf Urine WBC (0-5) /hpf Hyaline Casts (0-2) /lpf Urine Mucus (None) /hpf Urine Opiates Screen (NotDetected) Ur Oxycodone Screen (NotDetected) Urine Methadone Screen (NotDetected) Ur Propoxyphene Screen (NotDetected) Ur Barbiturates Screen (NotDetected) U Tricyclic Antidepress (NotDetected) Ur Phencyclidine Scrn (NotDetected) Ur Amphetamines Screen (NotDetected) U Methamphetamines Scrn (NotDetected) U Benzodiazepines Scrn (NotDetected) Urine Cocaine Screen (NotDetected) U Marijuana (THC) Screen (NotDetected) Serum Alcohol 338 H* mg/dL 10/05/21 10/05/21 Range/Units 17:12 19:06 WBC (3.8-10.6) k/uL RBC (4.30-5.90) m/uL Hgb (13.0-17.5) gm/dL Hct (39.0-53.0) % MCV (80.0-100.0) fL MCH (25.0-35.0) pg MCHC (31.0-37.0) g/dL RDW (11.5-15.5) % Plt Count (150-450) k/uL MPV Neutrophils % % Lymphocytes % % Monocytes % % Eosinophils % % Basophils % % Neutrophils # (1.3-7.7) k/uL Lymphocytes # (1.0-4.8) k/uL Monocytes # (0-1.0) k/uL Eosinophils # (0-0.7) k/uL Basophils # (0-0.2) k/uL PT (9.0-12.0) sec INR (<1.2) APTT (22.0-30.0) sec Sodium (137-145) mmol/L Potassium (3.5-5.1) mmol/L Chloride (98-107) mmol/L Carbon Dioxide (22-30) mmol/L Anion Gap mmol/L BUN (9-20) mg/dL Creatinine (0.66-1.25) mg/dL Est GFR (CKD-EPI)AfAm (>60 ml/min/1.73 sqM) Est GFR (CKD-EPI)NonAf (>60 ml/min/1.73 sqM) Glucose (74-99) mg/dL Calcium (8.4-10.2) mg/dL Magnesium (1.6-2.3) mg/dL Total Bilirubin (0.2-1.3) mg/dL AST (17-59) U/L ALT (4-49) U/L Alkaline Phosphatase (38-126) U/L Troponin I <0.012 (0.000-0.034) ng/mL Total Protein (6.3-8.2) g/dL Albumin (3.5-5.0) g/dL Amylase (30-110) U/L Lipase (23-300) U/L Urine Color Yellow Urine Appearance Clear (Clear) Urine pH 6.0 (5.0-8.0) Ur Specific [place] 1.024 (1.001-1.035) Urine Protein 2+ H (Negative) Urine Glucose (UA) Negative (Negative) Urine Ketones Trace H (Negative) Urine Blood Negative (Negative) Urine Nitrite Negative (Negative) Urine Bilirubin Negative (Negative) Urine Urobilinogen <2.0 (<2.0) mg/dL Ur Leukocyte Esterase Negative (Negative) Urine RBC 1 (0-5) /hpf Urine WBC 1 (0-5) /hpf Hyaline Casts 16 H (0-2) /lpf Urine Mucus Rare H (None) /hpf Urine Opiates Screen Not Detected (NotDetected) Ur Oxycodone Screen Not Detected (NotDetected) Urine Methadone Screen Not Detected (NotDetected) Ur Propoxyphene Screen Not Detected (NotDetected) Ur Barbiturates Screen Not Detected (NotDetected) U Tricyclic Antidepress Not Detected (NotDetected) Ur Phencyclidine Scrn Not Detected (NotDetected) Ur Amphetamines Screen Not Detected (NotDetected) U Methamphetamines Scrn Not Detected (NotDetected) U Benzodiazepines Scrn Detected H (NotDetected) Urine Cocaine Screen Not Detected (NotDetected) U Marijuana (THC) Screen Not Detected (NotDetected) Serum Alcohol mg/dL - EKG Data -: EKG Interpreted by Me EKG Comments: 12-lead Electrocardiogram Interpretation Note EKG was reviewed and interpreted by myself. 12-lead ECG performed at 1730 is interpreted by me as revealing normal sinus rhythm at a rate of 95 beats per minute. [place] is normal. GA intervals 157 ms, QRS duration is 114 ms, QTc is 441 ms.. There were no ST or T wave abnormalities to suggest myocardial ischemia or injury. R wave progression across the precordium was satisfactory. By my interpretation this EKG is non-diagnostic for acute ischemia. Disposition Clinical Impression: Alcohol withdrawal, Alcohol intoxication, Alcoholic liver disease Disposition: ADMITTED IP TO THIS HOSP Condition: Stable Referrals: Veena Bynum DO [Primary Care Provider] - 1-2 days Time of Disposition: 19:30
[2021-10-05 19:19] LABS: Appearance,Urine Clear (Clear); Bilirubin,Urine Negative (Negative); Blood,Urine Negative (Negative); Color,Urine Yellow; Glucose,Urine (UA) Negative (Negative); Hyaline Casts,Urine 16 /lpf (0-2); Ketones,Urine Trace (Negative); Leukocyte Esterase,Urine Negative (Negative); Mucus,Urine Rare /hpf; Nitrite,Urine Negative (Negative); Protein,Urine 2+ (Negative); RBC,Urine 1 /hpf (0-5); Specific Gravity,Urine 1.024 (1.001-1.035); Urobilinogen,Urine <2.0 mg/dL (<2.0); WBC,Urine 1 /hpf (0-5)
[2021-10-05 19:28] LABS: Amphetamine Screen,Urine Not Detected (NotDetected); Cocaine Screen,Urine Not Detected (NotDetected); Opiate Screen,Urine Not Detected (NotDetected); Phencyclidine Screen,Urine Not Detected (NotDetected); Urn Cannabinoid Scrn Not Detected (NotDetected)
[2021-10-05 19:29] LABS: Barbiturate Screen,Urine Not Detected (NotDetected); Benzodiazepines Screen,Urine Detected (NotDetected); Methadone Screen, Urine Not Detected (NotDetected); Oxycodone Screen, Urine Not Detected (NotDetected); Tricyclic Antidepressant,Urine Not Detected (NotDetected)
--- NOTE | 2021-10-05 19:38 | CT ---
EXAMINATION TYPE: CT abdomen pelvis w con DATE OF EXAM: 10/05/2021 COMPARISON: 09/05/2016 HISTORY: Abdominal pain CT DLP: 1413.4 mGycm Automated exposure control for dose reduction was used. CONTRAST: Performed with IV Contrast, patient injected with 100 mL of Isovue 300. The lung bases are clear of consolidation. There is minimal subsegmental atelectasis. Heart size is n ormal. No pericardial effusion. There is some fatty infiltration of the liver. Gallbladder is distend ed and measures 4.6 cm in diameter. Bile ducts are nondilated. Spleen is intact. There is no pancreat ic mass. The stomach appears intact. There is no adrenal mass. Kidneys show satisfactory contrast opacification. There is no hydronephrosi s. Ureters are not dilated. Delayed images show normal renal excretion. There is no retroperitoneal a denopathy. The bladder is almost empty. No inguinal hernia. No free fluid in the pelvis. There are mu ltiple sigmoid diverticula. No diverticulitis. No evidence of a pelvic mass. There is no mesenteric edema. No ascites or free air. No bowel obstruction. IMPRESSION: There is sigmoid diverticulosis without diverticulitis. Appendix not seen. Surgical clip probably fro m appendectomy. Fatty infiltration of the liver. No significant change compared to old exam.
[2021-10-05] MEDS ORDERED: ONDANSETRON 4 MG/2 ML VIAL IVP PRN (19:39)
[2021-10-05] MEDS ORDERED: NALOXONE 0.4 MG/ML 1 ML VIAL IV PRN (19:39)
[2021-10-05] MEDS ORDERED: MORPHINE SULFATE 4 MG/ML SYRINGE IV PRN (19:39)
[2021-10-05] MEDS ORDERED: SODIUM CHLORIDE 0.9% 1,000 ML IV SCH (19:45)
[2021-10-06] MEDS: LORazepam 2 MG/ML INJ IV PRN ×7 (02:40→23:09)
[2021-10-06] MEDS: THIAMINE 100 MG TAB PO SCH ×2 (07:12→15:31)
[2021-10-06] MEDS: PANTOPRAZOLE 40 MG/10 ML VIAL IV SCH (07:12)
[2021-10-06] MEDS ORDERED: NICOTINE 14MG/24HR PATCH TRANSDERM PRN (10:59)
[2021-10-06] MEDS ORDERED: traZODone HCL 100 MG TAB PO PRN (10:59)
[2021-10-06 11:40] LABS: Basophils # (A) 0.05 X 10*3/uL (0.00-0.10); Basophils % (A) 0.6 %; Eosinophils # (A) 0.04 X 10*3/uL (0.04-0.35); Eosinophils % (A) 0.5 %; HCT 34.9 % (39.6-50.0); HGB 11.6 g/dL (13.0-17.0); Immature Grans, Automated 0.3 %; Lymphocytes # (A) 2.32 X 10*3/uL (0.90-5.00); Lymphocytes % (A) 29.5 %; MCH 29.8 pg (27.0-32.0); MCHC 33.2 g/dL (32.0-37.0); MCV 89.7 fL (80.0-97.0); Mean Platelet Volume 9.9 fL (9.5-12.2); Monocytes # (A) 0.68 X 10*3/uL (0.20-1.00); Monocytes % (A) 8.7 %; NRBC Per 100 WBC 0 /100 WBCS (0.0-0.0); Neutrophils # (A) 4.75 X 10*3/uL (1.80-7.70); Neutrophils % (A) 60.4 %; Platelet Count 159 X 10*3/uL (140-440); RBC 3.89 X 10*6/uL (4.40-5.60); RDW 12.7 % (11.5-14.5); WBC 7.86 X 10*3/uL (4.50-10.00)
[2021-10-06 11:53] LABS: Magnesium 1.5 mg/dL (1.5-2.4)
[2021-10-06 12:02] LABS: African American GFR (CKD) 137.8 (60.0-200.0); Albumin 4.2 g/dL (3.8-4.9); Albumin/Globulin Ratio 2.47 (1.60-3.17); Anion Gap 13.8 mmol/L (10.00-18.00); BUN/Creat Ratio 25.67 Ratio (12.00-20.00); Blood Urea Nitrogen 15.4 mg/dL (9.0-27.0); Calcium 8.6 mg/dL (8.7-10.3); Carbon Dioxide 30.2 mmol/L (20.0-27.5); Globulin 1.7 g/dL (1.6-3.3); Non-African American GFR(CKD) 118.9 (60.0-200.0); Potassium 4.3 mmol/L (3.5-5.5); Total Bilirubin 3.3 mg/dL (0.30-1.20); Total Protein 5.9 g/dL (6.2-8.2)
[2021-10-06] MEDS: MAGNESIUM OXIDE 400 MG TAB PO SCH ×2 (15:31→20:43)
[2021-10-06] MEDS: GABAPENTIN 300 MG CAP PO SCH ×2 (15:31→20:43)
--- NOTE | 2021-10-06 17:34 | HP ---
HISTORY AND PHYSICAL DATE OF SERVICE: 10/06/2021 CHIEF COMPLAINTS: Alcohol intoxication and delirium tremens. HISTORY OF PRESENT ILLNESS: This 46-year-old gentleman with a past medical history of multiple medical problems, including significant alcohol intake, hypertension, liver disease, being followed by Dr. Mar in the outpatient setting, has had multiple hospital admissions. Recently the patient was on inpatient alcohol rehab for a month. The patient had court- ordered rehab. Apparently the patient's lady friend and the patient had other stressors. The patient was drinking more alcohol. The patient came to [facility]. Alcohol level was found to be 338. He was admitted for further evaluation and treatment. There is no history of any fever, rigor or chills. The patient has significant tremors and features of early delirium tremens. The patient also has feature of alcoholic hepatitis. PAST MEDICAL HISTORY: GERD, alcoholism, hypertension. HOME MEDICATIONS: Reviewed. They include trazodone. Doses and other medications are reviewed. ALLERGIES: ALLERGIES include CEPHALOSPORIN. Other allergies are reviewed. FAMILY HISTORY: Family history includes dementia. SOCIAL HISTORY: History of alcohol, as mentioned earlier. REVIEW OF SYSTEMS: Fourteen-point review of systems negative except as mentioned earlier. PHYSICAL EXAMINATION: Pulse 77, blood pressure 125/70, respiration 12. HEENT: Conjunctivae normal. NECK: No jugular venous distention. CARDIOVASCULAR: S1, S2 muffled. RESPIRATION: Breath sounds diminished at the bases. Scattered rhonchi. ABDOMEN: Soft, nontender. Obese. LEGS: No edema. No swelling. NERVOUS SYSTEM: Diffusely weak. Diffuse tremors. SKIN: No ulcer, rash, bleeding. JOINTS: No active deforming arthropathy. LABS: WBC 11., sodium 133. ASSESSMENT: 1. Acute alcohol intoxication. 2. Acute delirium tremens. 3. Alcoholic hepatitis. 4. History of gastrointestinal bleed. 5. History of chronic liver disease. 6. Hypertension. 7. Multiple medical issues. RECOMMENDATIONS AND DISCUSSION: In this 46-year-old gentleman who presented with multiple complex medical issues, at this time I recommend continuing with CIWA protocol. Alcohol withdrawal precautions. Supplement vitamins. Resume the home medications. Prognosis guarded because of multiple complex medical issues. Further recommendations to follow. Fall precautions. Discussed with the patient. See orders for further details. MMODL / IJN: [id number] / [facility]
[2021-10-06] MEDS: HEPARIN SODIUM,PORCINE/PF 5,000 UNIT/0.5 ML SYRINGE SQ SCH (20:43)
[2021-10-06] MEDS: FLUTICASONE 50MCG/SPRAY NASAL 16GM EA NOSTRIL SCH (20:43)
[2021-10-07] MEDS ORDERED: MELOXICAM 7.5 MG TAB ONE (08:00)
[2021-10-07] MEDS ORDERED: MAGNESIUM OXIDE 400 MG TAB ONE (08:00)
[2021-10-07] MEDS ORDERED: HEPARIN SODIUM,PORCINE 5,000 UNIT/ML 1 ML VIAL ONE (08:00)
[2021-10-07] MEDS ORDERED: CHOLECALCIFEROL 25 MCG (1000 IU) TABLET ONE (08:00)
[2021-10-07] MEDS ORDERED: GABAPENTIN 300 MG CAP ONE (08:00)
[2021-10-07] MEDS ORDERED: THIAMINE 100 MG TAB ONE (08:00)
[2021-10-07] MEDS ORDERED: PANTOPRAZOLE 40 MG TABLET PO ONE (08:00)
[2021-10-07] MEDS ORDERED: LORazepam 2 MG/ML INJ ONE (08:00)
[2021-10-07 08:47] LABS: Basophils # (A) 0.1 k/uL (0-0.2); Basophils % (A) 1 %; Eosinophils # (A) 0.1 k/uL (0-0.7); Eosinophils % (A) 2 %; HCT 43.8 % (39.0-53.0); HGB 13.9 gm/dL (13.0-17.5); Lymphocytes # (A) 2.1 k/uL (1.0-4.8); Lymphocytes % (A) 43 %; MCH 30.4 pg (25.0-35.0); MCHC 31.8 g/dL (31.0-37.0); MCV 95.6 fL (80.0-100.0); Monocytes # (A) 0.3 k/uL (0-1.0); Monocytes % (A) 6 %; Neutrophils # (A) 2.3 k/uL (1.3-7.7); Neutrophils % (A) 47 %; RBC 4.58 m/uL (4.30-5.90); RDW 12.5 % (11.5-15.5)
[2021-10-07 08:53] LABS: Platelet Count 134 k/uL (150-450)
[2021-10-07 09:23] LABS: ALT 182 U/L (4-49); AST 220 U/L (17-59); African American GFR (CKD) >90 (>60 ml/min/1.73 sqM); Albumin 3.7 g/dL (3.5-5.0); Albumin/Globulin Ratio 1.4; Alkaline Phosphatase 56 U/L (38-126); Anion Gap 8 mmol/L; Blood Urea Nitrogen 18 mg/dL (9-20); Calcium 8.5 mg/dL (8.4-10.2); Carbon Dioxide 30 mmol/L (22-30); Chloride 98 mmol/L (98-107); Globulin 2.6 g/dL; Glucose 101 mg/dL (74-99); Non-African American GFR(CKD) >90 (>60 ml/min/1.73 sqM); Potassium 4.2 mmol/L (3.5-5.1); Sodium 136 mmol/L (137-145); Total Bilirubin 3.9 mg/dL (0.2-1.3); Total Protein 6.3 g/dL (6.3-8.2)
[2021-10-07] MEDS: THIAMINE 100 MG TAB PO SCH ×2 (11:39→16:27)
[2021-10-07] MEDS: MELOXICAM 7.5 MG TAB PO SCH (11:40)
[2021-10-07] MEDS: HEPARIN SODIUM,PORCINE/PF 5,000 UNIT/0.5 ML SYRINGE SQ SCH ×2 (11:40→20:08)
[2021-10-07] MEDS: CHOLECALCIFEROL 25 MCG (1000 IU) TABLET PO SCH (11:40)
[2021-10-07] MEDS: GABAPENTIN 300 MG CAP PO SCH ×3 (11:40→21:49)
[2021-10-07] MEDS: MAGNESIUM OXIDE 400 MG TAB PO SCH ×3 (11:40→21:49)
[2021-10-07] MEDS: FLUTICASONE 50MCG/SPRAY NASAL 16GM EA NOSTRIL SCH ×2 (11:40→20:09)
[2021-10-07] MEDS: PANTOPRAZOLE 40 MG/10 ML VIAL IV SCH (11:40)
[2021-10-07] MEDS: LORazepam 2 MG/ML INJ IV PRN ×2 (11:53→20:08)
[2021-10-07] MEDS ORDERED: LORazepam 1 MG TAB PO PRN (13:24)
--- NOTE | 2021-10-07 13:25 | P.PN ---
Subjective Progress Note Date: 10/07/21 This is a 46-year-old male who was recently admitted with alcohol intoxication and also features of acute early delirium tremens and being closely monitored. Patient is maintained on CIWA protocol and home medications have been resumed. Patient apparently went to rehab and was court ordered therefore a month and was released from rehab and recently suffered a loss of a close friend and other life stressors and began drinking again. Patient's alcohol level was 338 on admission. Encouraged increased activity as tolerated and increase diet. Patient continues with some withdrawal symptoms including nausea. Patient is afebrile and denies any shortness of breath. Review of systems: Constitutional: No reports of fatigue, fever, or chills, reports anxiety Cardiovascular: No reports of chest pain or palpitations Respiratory: No reports of shortness of breath or cough GI: reports of nausea, no reports of vomiting, or diarrhea : No reports of dysuria or retention Neurovascular: No reports of weakness or numbness All medications have been reviewed Active Medications Cholecalciferol (Cholecalciferol 25 Mcg (1000 Iu) Tablet) 25 mcg PO DAILY [facility] Last Admin: 10/07/21 11:40 Dose: Not Given Documented by: Fluticasone Propionate (Fluticasone 50mcg/[place] Nasal 16gm) 2 spray EA NOSTRIL BID [facility] Last Admin: 10/07/21 11:40 Dose: Not Given Documented by: Gabapentin (Gabapentin 300 Mg Cap) 600 mg PO TID [facility] Last Admin: 10/07/21 11:40 Dose: Not Given Documented by: Heparin Sodium (Porcine) (Heparin Sodium,Porcine/Pf 5,000 Unit/0.5 Ml Syringe) 5,000 unit SQ Q12HR [facility] Last Admin: 10/07/21 11:40 Dose: Not Given Documented by: Lorazepam (Lorazepam 2 Mg/Ml Inj) 1 mg IV Q2HR PRN PRN Reason: CIWA 8 or 9 Last Admin: 10/07/21 11:53 Dose: 1 mg Documented by: Lorazepam (Lorazepam 2 Mg/Ml Inj) 1 mg IV Q1HR PRN PRN Reason: CIWA 10 to 15 Lorazepam (Lorazepam 2 Mg/Ml Inj) 2 mg IV Q10M PRN PRN Reason: CIWA 16 or higher Stop: 10/07/21 17:09 Magnesium Oxide (Magnesium Oxide 400 Mg Tab) 400 mg PO TID [facility] Last Admin: 10/07/21 11:40 Dose: Not Given Documented by: Meloxicam (Meloxicam 7.5 Mg Tab) 7.5 mg PO DAILY [facility] Last Admin: 10/07/21 11:40 Dose: Not Given Documented by: Morphine Sulfate (Morphine Sulfate 4 Mg/Ml Syringe) 4 mg IV Q4HR PRN PRN Reason: Severe Pain Naloxone HCl (Naloxone 0.4 Mg/Ml 1 Ml Vial) 0.2 mg IV Q2M PRN PRN Reason: Opioid Reversal Nicotine (Nicotine 14mg/24hr Patch) 1 patch TRANSDERM DAILY PRN PRN Reason: Nicotine Cravings Ondansetron HCl (Ondansetron 4 Mg/2 Ml Vial) 4 mg IVP Q8HR PRN PRN Reason: Nausea And Vomiting Last Admin: 10/06/21 11:53 Dose: 4 mg Documented by: Pantoprazole Sodium (Pantoprazole 40 Mg/10 Ml Vial) 40 mg IV DAILY [facility] Last Admin: 10/07/21 11:40 Dose: Not Given Documented by: Thiamine HCl (Thiamine 100 Mg Tab) 100 mg PO BID-W/MEALS [facility] Last Admin: 10/07/21 11:39 Dose: Not Given Documented by: Trazodone HCl (Trazodone Hcl 100 Mg Tab) 100 mg PO HS PRN PRN Reason: Insomnia Last Admin: 10/07/21 03:07 Dose: 100 mg Documented by: Physical exam: Gen: This is a 46-year-old male awake, alert and oriented 3, well-developed, well-nourished. HEENT: Head is atraumatic, normocephalic. Pupils equal, round. Sclerae is anicteric. NECK: Supple. No JVD. No lymphadenopathy. No thyromegaly. LUNGS: Diminished breath sounds bilaterally with no wheezing or rhonchi noted No intercostal retractions. HEART: S1, S2 are muffled. No murmur. ABDOMEN: Soft. Bowel sounds are present. No masses. No tenderness. EXTREMITIES: No pedal edema. No calf tenderness. NEUROLOGICAL: Patient is awake, alert and oriented x3. Cranial nerves 2 through 12 are grossly intact. Assessment: Acute alcohol intoxication Acute delirium tremens Alcoholic hepatitis next line history of gastrointestinal bleed History of chronic liver disease Hypertension DVT prophylaxis GI prophylaxis Full code Plan: Recommend continue with current medications and CIWA protocol. Encouraged incre ased activity and opening the windows and sitting up out of the bed more often during the day. Encouraged increase in diet and continue to monitor for any signs of withdrawals. Will add oral Ativan and attempt to avoid IV as patient has been requesting it. Social work to provide resources for outpatient AA meetings and rehab and will need to discuss with his [facility] worker about rehab again. We'll continue to observe closely as patient is still experiencing some withdrawals with possible discharge in 24 hours. The impression and plan of care has been dictated by Zayra Webster, Nurse Practitioner as directed. Dr. Hugo MD I have performed a history and examination and MDM of this patient, discussed the same with the dictator, and agree with the dictator's assessment and plan as written ,documented as a scribe. Based on total visit time, I have performed more than 50% of the visit. Objective - Vital Signs Vital signs: Vital Signs Temp 98.1 F 10/07/21 11:44 Pulse 78 10/07/21 11:44 Resp 18 10/07/21 11:44 BP 143/77 10/07/21 11:44 Pulse Ox 97 10/07/21 11:44 Intake & Output 10/06/21 10/07/21 10/07/21 18:59 06:59 18:59 Intake Total 476 Balance 476 Intake: Oral 476 Other: # Voids 1 # Bowel Movements 0 - Labs CBC & Chem 7: 10/07/21 06:30 10/07/21 06:55 Labs: Abnormal Lab Results - Last 24 Hours (Table) 10/07/21 10/07/21 Range/Units 06:30 06:55 Plt Count 134 L (150-450) k/uL Sodium 136 L (137-145) mmol/L Glucose 101 H (74-99) mg/dL Total Bilirubin 3.9 H (0.2-1.3) mg/dL AST 220 H (17-59) U/L ALT 182 H (4-49) U/L
[2021-10-08] MEDS: LORazepam 2 MG/ML INJ IV PRN ×3 (00:21→08:45)
[2021-10-08 06:52] VITALS: RESP 18
[2021-10-08] MEDS: PANTOPRAZOLE 40 MG/10 ML VIAL IV SCH (08:36)
[2021-10-08] MEDS: MAGNESIUM OXIDE 400 MG TAB PO SCH (08:36)
[2021-10-08] MEDS: MELOXICAM 7.5 MG TAB PO SCH (08:36)
[2021-10-08] MEDS: THIAMINE 100 MG TAB PO SCH (08:36)
[2021-10-08] MEDS: CHOLECALCIFEROL 25 MCG (1000 IU) TABLET PO SCH (08:36)
[2021-10-08] MEDS: GABAPENTIN 300 MG CAP PO SCH (08:37)
[2021-10-08] MEDS: FLUTICASONE 50MCG/SPRAY NASAL 16GM EA NOSTRIL SCH (08:37)
[2021-10-08] MEDS: HEPARIN SODIUM,PORCINE/PF 5,000 UNIT/0.5 ML SYRINGE SQ SCH (08:45)
[2021-10-08 12:55] VITALS: BP 136/82; PULSE 67; TEMP 97.8
--- NOTE | 2021-10-09 15:30 | P.DS ---
Providers Date of admission: 10/05/21 19:39 Expected date of discharge: 10/08/21 Attending physician: Gabriel Santillan Primary care physician: Veena Tabor Hospital Course: Final diagnosis Acute alcohol intoxication Acute delirium tremens Alcoholic hepatitis history of gastrointestinal bleed History of chronic liver disease Hypertension DVT prophylaxis GI prophylaxis Full code Discharge disposition Patient is being discharged in a stable condition with guarded prognosis to home. Patient will follow-up with Dr. Tabor in the outpatient setting upon discharge. Patient is to follow-up with [facility] and [facility] for possible r eadmission. Patient will continue with Librium taper. Total time taken is greater than 35 minutes. Hospital course This is a pleasant 46-year-old male who was admitted with alcohol intoxication and possible acute delirium tremens and was being closely monitored. Patient was maintained on CIWA protocol and also discussed at length with the patient about again following up with [facility] for readmission. Encourage the patient to avoid alcohol and continue with Librium taper on discharge. Encourage the patient to follow-up with primary care provider this week. Currently no reports of chest pain, shortness of breath, or palpitations. Patient is afebrile. No reports of nausea or vomiting and patient is tolerating diet. Patient will be discharged home today. Guarded prognosis as patient is high risk for readmissions secondary to alcohol intoxication. Physical exam: Gen: This is a 46-year-old male awake alert and oriented 3, obese HEENT: Head is atraumatic, normocephalic. Pupils equal, round. Sclerae is anicteric. NECK: Supple. No JVD. No lymphadenopathy. No thyromegaly. LUNGS: Clear to auscultation. No wheezes or rhonchi. No intercostal retractions. HEART: Regular rate and rhythm. No murmur. ABDOMEN: Soft. Bowel sounds are present. No masses. No tenderness. EXTREMITIES: No pedal edema. No calf tenderness. NEUROLOGICAL: Patient is awake, alert and oriented x3. Cranial nerves 2 through 12 are grossly intact. Please refer to medication reconciliation sheet for a list of medications. The impression and plan of care has been dictated by Zayra Webster, Nurse Practitioner as directed. Dr. Melvi MD I have performed a history and examination and MDM of this patient, discussed the same with the dictator, and agree with the dictator's assessment and plan as written ,documented as a scribe. Based on total visit time, I have performed more than 50% of the visit. Patient Condition at Discharge: Stable Plan - Discharge Summary New Discharge Prescriptions: New Thiamine [Vitamin B-1] 100 mg PO BID-W/MEALS #60 tab Continue Fluticasone Nasal [place] [Flonase Nasal [place]] 2 spr EA NOSTRIL BID traZODone HCL [Desyrel] 100 mg PO HS PRN PRN Reason: Insomnia Gabapentin [Neurontin] 600 mg PO TID Celecoxib [CeleBREX] 200 mg PO DAILY Magnesium Oxide [Mag-Ox] 400 mg PO TID 30 Days #90 tab Nicotine 14Mg/24Hr Patch [Habitrol] 1 patch TRANSDERM DAILY PRN PRN Reason: Nicotine Cravings Pantoprazole Sodium [Protonix] 40 mg PO DAILY Cholecalciferol [Vitamin D3 (25 Mcg = 1000 Iu)] 25 mcg PO DAILY Discharge Medication List Fluticasone Nasal [place] [Flonase Nasal [place]] 2 spr EA NOSTRIL BID 10/11/19 [History] traZODone HCL [Desyrel] 100 mg PO HS PRN 05/14/20 [History] Celecoxib [CeleBREX] 200 mg PO DAILY 07/06/21 [History] Gabapentin [Neurontin] 600 mg PO TID 07/06/21 [History] Magnesium Oxide [Mag-Ox] 400 mg PO TID 30 Days #90 tab 08/06/21 [Rx] Cholecalciferol [Vitamin D3 (25 Mcg = 1000 Iu)] 25 mcg PO DAILY 10/02/21 [History] Nicotine 14Mg/24Hr Patch [Habitrol] 1 patch TRANSDERM DAILY PRN 10/02/21 [History] Pantoprazole Sodium [Protonix] 40 mg PO DAILY 10/02/21 [History] Thiamine [Vitamin B-1] 100 mg PO BID-W/MEALS #60 tab 10/08/21 [Rx] Follow up Appointment(s)/Referral(s): Veena Tabor DO [Primary Care Provider] - 1-2 days Patient Instructions/Handouts: Abuse of Alcohol (DC), Alcohol Withdrawal (DC) Activity/Diet/Wound Care/Special Instructions: Activity Limited until follow-up Follow-up with primary care provider on discharge Follow-up with [facility] and contact [facility] Avoid alcohol intake Take medications as prescribed Discharge/Stand Alone Forms: AA Meetings [facility] [place], Community Resources, [employer] Discharge Disposition: HOME SELF-CARE
== END 2021-10-08 15:45 | disposition home or self-care (01) ==
LOC: EC 16:26 → 6NMEDSUR 19:39 → UNDODISOB 10-08 12:57
PROVIDERS: ADMIT Internal Medicine; ATTEND Internal Medicine
DX: F10.231 Alcohol dependence with withdrawal delirium (principal); F10.221 Alcohol dependence with intoxication delirium; K70.10 Alcoholic hepatitis without ascites; Y90.8 Blood alcohol level of 240 mg/100 ml or more; K76.0 Fatty (change of) liver, not elsewhere classified; F17.200 Nicotine dependence, unspecified, uncomplicated; F12.10 Cannabis abuse, uncomplicated; I10 Essential (primary) hypertension; M19.90 Unspecified osteoarthritis, unspecified site; K57.30 Diverticulosis of large intestine without perforation or abscess without bleeding; E66.9 Obesity, unspecified; Z68.33 Body mass index [BMI] 33.0-33.9, adult; R60.0 Localized edema; K21.9 Gastro-esophageal reflux disease without esophagitis; G40.909 Epilepsy, unspecified, not intractable, without status epilepticus; G47.33 Obstructive sleep apnea (adult) (pediatric); F32.A Depression, unspecified; F41.9 Anxiety disorder, unspecified; Z79.1 Long term (current) use of non-steroidal anti-inflammatories (NSAID); Z79.899 Other long term (current) drug therapy; Z88.1 Allergy status to other antibiotic agents; Z88.8 Allergy status to other drugs, medicaments and biological substances; Z88.3 Allergy status to other anti-infective agents; Z87.01 Personal history of pneumonia (recurrent); Z71.6 Tobacco abuse counseling; Z71.51 Drug abuse counseling and surveillance of drug abuser; Z90.49 Acquired absence of other specified parts of digestive tract; Z82.49 Family history of ischemic heart disease and other diseases of the circulatory system; Z82.0 Family history of epilepsy and other diseases of the nervous system; Z80.8 Family history of malignant neoplasm of other organs or systems
CPT/HCPCS: 99285; 96376 ×3; 96361 ×2; 96372 ×3; 96375 ×2; 96374; 36415; 93005; 80053 ×3; 82150; 83690; 83735 ×2; 84484; 85025 ×3; 85610; 85730; 81001; 80306; 71045; 74177; G0378 ×4; G0480; J2060 ×4; J2270 ×2; J1644 ×4; J2405 ×2; C9113 ×2; Q9967; 80320

== ENCOUNTER 2021-10-10 15:48 | Inpatient (IN) | payer OTHER ==
[2021-10-10] MEDS ORDERED: SODIUM CHLORIDE 0.9% 1,000 ML IV STA ×2 (19:48→20:18)
[2021-10-10] MEDS ORDERED: PANTOPRAZOLE 40 MG/10 ML VIAL IVP STA (19:48)
[2021-10-10] MEDS ORDERED: ONDANSETRON 4 MG/2 ML VIAL IVP STA (19:48)
[2021-10-10] MEDS ORDERED: LORazepam 2 MG/ML INJ IV STA (20:16)
[2021-10-10] MEDS ORDERED: THIAMINE 100 MG/ML 2 ML VIAL IM STA (20:17)
[2021-10-10] MEDS ORDERED: MORPHINE SULFATE 4 MG/ML SYRINGE IVP STA (20:17)
[2021-10-10] MEDS ORDERED: LORazepam 2 MG/ML INJ IV PRN (20:17)
--- NOTE | 2021-10-10 20:27 | ED ---
General Adult HPI - General Source: patient, RN notes reviewed, old records reviewed Mode of arrival: ambulatory Limitations: no limitations <Eduardo Onofre - Last Filed: 10/10/21 20:54> <Asif Veronica - Last Filed: 10/10/21 22:30> - General Chief complaint: Alcohol Stated complaint: Withdrawal Time Seen by Provider: 10/10/21 19:46 - History of Present Illness Initial comments: Patient is a 46-year-old male who I evaluated earlier this week. Presents for similar complaints. Patient is a chronic alcohol abuser. He states he last drank earlier this morning and drank half-gallon of vodka. States he is having his typical withdrawal symptoms including shaking, nausea, vomiting, diarrhea. He states he has some chest discomfort but points to his epigastric substernal region. No left-sided chest pain. Denies shortness of breath. Denies fevers, chills, cough. Has no urinary complaints at this time. His no other acute complaints at this time. Endorses multiple episodes of nonbilious nonbloody e mesis. Presents for concern for alcohol withdrawal. Denies any hallucinations. (Eduardo Onofre) - Related Data Home Medications Medication Instructions Recorded Confirmed Fluticasone Nasal [place] [Flonase 2 spr EA NOSTRIL BID 10/11/19 10/10/21 Nasal [place]] traZODone HCL [Desyrel] 100 mg PO HS PRN 05/14/20 10/10/21 Celecoxib [CeleBREX] 200 mg PO DAILY 07/06/21 10/10/21 Gabapentin [Neurontin] 600 mg PO TID 07/06/21 10/10/21 Cholecalciferol [Vitamin D3 (25 25 mcg PO DAILY 10/02/21 10/10/21 Mcg = 1000 Iu)] Nicotine 14Mg/24Hr Patch [Habitrol] 1 patch TRANSDERM DAILY PRN 10/02/21 10/10/21 Pantoprazole Sodium [Protonix] 40 mg PO DAILY 10/02/21 10/10/21 Previous Rx's Medication Instructions Recorded Magnesium Oxide [Mag-Ox] 400 mg PO TID 30 Days #90 tab 08/06/21 Thiamine [Vitamin B-1] 100 mg PO BID-W/MEALS #60 tab 10/08/21 Allergies Allergy/AdvReac Type Severity Reaction Status Date / Time Cephalosporins Allergy Severe Anaphylaxis Verified 10/10/21 17:17 diphenhydramine HCl Allergy Severe Anaphylaxis Verified 10/10/21 17:17 [From Benadryl] divalproex sodium Allergy Severe Anaphylaxis Verified 10/10/21 17:17 [From Depakote] ceftriaxone [From Rocephin] Allergy Anaphylaxis Verified 10/10/21 17:17 cephalexin [From Keflex] Allergy Anaphylaxis Verified 10/10/21 17:17 droperidol Allergy Anaphylaxis Verified 10/10/21 17:17 lisinopril Allergy Anaphylaxis Verified 10/10/21 17:17 Review of Systems ROS Other: All systems not noted in ROS Statement are negative. <Eduardo Onofre - Last Filed: 10/10/21 20:54> ROS Other: All systems not noted in ROS Statement are negative. <Asif Veronica - Last Filed: 10/10/21 22:30> ROS Statement: Those systems with pertinent positive or pertinent negative responses have been documented in the HPI. Review of Systems: CONST: Denies fever EYES: Denies blurry vision ENT: Denies nasal congestion C/V: Denies Chest pain RESP: Denies shortness of breath GI: Endorses abdominal pain : Denies dysuria SKIN: Denies rash. MSK: Denies joint pain. NEURO: Denies headache (Eduardo Onofre) Past Medical History Past Medical History: GERD/Reflux, GI Bleed, Hypertension, Liver Disease, Osteoarthritis (OA), Pneumonia, Seizure Disorder, Sleep Apnea/CPAP/BIPAP, Vascular Disorder Additional Past Medical History / Comment(s): Pt recently admitted to [facility] on 07/26/21 with alcohol intoxication/abuse/fall/marijuana abuse. Other hx: Occasional bilateral pedal edema if stands long, arthritis possibly in back/ribs, MILIND without device, ETOH abuse, alcoholic seizures/blackouts/fainting 2017, alcoholic hepatitis, alcoholic gastritis, upper GI bleed, hypomagnesemia, spinal stenosis/herniated disc with surgery, bilateral varicose veins, hemorrhoids History of Any Multi-Drug Resistant Organisms: None Reported Past Surgical History: Appendectomy, Back Surgery, Tonsillectomy Additional Past Surgical History / Comment(s): bilateral discectomy, discectomy L5-S1, EGD Past Anesthesia/Blood Transfusion Reactions: Motion Sickness Past Psychological History: Anxiety, Depression Smoking Status: Current every day smoker Past Alcohol Use History: Abuse, Heavy Past Drug Use History: Marijuana - Past Family History Father Family Medical History: Cancer, Dementia, Neurologic Disorder Additional Family Medical History / Comment(s): melanoma, parkinsons, schizophrenic Mother Family Medical History: Hypertension, Musculoskeletal Disorder, Neurologic Disorder, Osteoarthritis (OA) Additional Family Medical History / Comment(s): Mother of motor neuron disease at the age of 78yrs. <Eduardo Onofre - Last Filed: 10/10/21 20:54> General Exam Limitations: no limitations <Eduardo Onofre - Last Filed: 10/10/21 20:54> - General Exam Comments Initial Comments: General: Patient is tremulous. In mild distress. HEAD: Normal with no signs of head trauma. EYES: PERRLA, EOMI, conjunctiva normal, no discharge. Pupils are 3 mm and equal bilaterally. ENT: Hearing grossly intact, normal oropharynx. RESPIRATORY: Clear breath sounds bilaterally. No wheezes, rales, or rhonchi. C/V: Regular rate and rhythm. S1 and S2 auscultated, no edema, peripheral pulses 2+ and intact throughout ABD: Abdomen is soft, nondistended. Minimally tender to palpation epigastric region. No guarding. No rebound tenderness. No peritoneal signs. EXT: Normal range of motion, no obvious deformity SKIN: No rashes or lesions observed on exposed skin. NEURO: Alert and oriented x 4. Cranial nerves II-XII intact. No focal sensory or strength deficits. Tremulous, concern for alcohol withdrawal. (Eduardo Onofre) Course Vital Signs 10/10/21 10/10/21 17:13 21:42 Temperature 97.8 F Pulse Rate 87 80 Respiratory 16 20 Rate Blood Pressure 137/85 146/81 O2 Sat by Pulse 98 98 Oximetry Medical Decision Making <Eduardo Onofre - Last Filed: 10/10/21 20:54> - Lab Data Result diagrams: 10/10/21 20:56 10/10/21 21:38 <Asif Veronica - Last Filed: 10/10/21 22:30> - Medical Decision Making Based on the patient's presentation and physical exam, I'm concerned for acute alcohol withdrawals. However based on his symptoms we will obtain screening cardiac labs in addition to abdominal laboratory studies. He'll be symptomatically treated with IV fluids, Ativan, GI cocktail. He was in agreement this plan. Patient received CT imaging the other day when I evaluated him, with identical complaints, no showed no acute intra-abdominal process. At this time is the end of my shift. Patient is signed out to Dr. Veronica in stable condition pending workup. EKG, labs, CXR pending at this time. (Eduardo Onofre) Patient was signed out to me by previous shift physician, Dr. Eduardo Onofre. Briefly, patient is a 46-year-old male he is a chronic alcoholic known for coming to the emergency department for alcohol intoxication and alcohol withdrawals. Patient high risk for withdrawal is due to the amount of alcohol that he consumes on a daily basis. Patient has been admitted to the hospital multiple times in the past for alcohol withdrawals. Chest x-ray is nonacute.10:22 PM patient was evaluated at the bedside said to show some signs of withdrawal already. He was given some Ativan. EKG interpretation: Ventricular rate 82, sinus rhythm, LA interval 172, care is 110, QTc 452. No LA prolongation, no QTC prolongation, no ST or T-wave changes noted. Overall, this EKG is unremarkable Laboratory evaluation obtained per it CBC unremarkable. Coag panel is negative. Metabolic panel shows mild hyperglycemia of 66. Patient ordered for IV dextrose. Patient given oral intake. No acidosis. Rest of labs within acceptable limits. Patient be admitted to [facility] hospitalist group again. Case is discussed with Shea Tim who is willing to accept patient's [facility] group. (Asif Veronica) - Lab Data Lab Results 10/10/21 10/10/21 10/10/21 Range/Units 19:49 20:56 20:56 WBC 7.8 (3.8-10.6) k/uL RBC 4.18 L (4.30-5.90) m/uL Hgb 13.2 (13.0-17.5) gm/dL Hct 39.8 (39.0-53.0) % MCV 95.1 (80.0-100.0) fL MCH 31.5 (25.0-35.0) pg MCHC 33.2 (31.0-37.0) g/dL RDW 12.9 (11.5-15.5) % Plt Count 149 L (150-450) k/uL MPV 7.8 Neutrophils % 59 % Lymphocytes % 33 % Monocytes % 4 % Eosinophils % 1 % Basophils % 1 % Neutrophils # 4.6 (1.3-7.7) k/uL Lymphocytes # 2.6 (1.0-4.8) k/uL Monocytes # 0.3 (0-1.0) k/uL Eosinophils # 0.1 (0-0.7) k/uL Basophils # 0.1 (0-0.2) k/uL PT 9.3 (9.0-12.0) sec INR 0.8 (<1.2) APTT 20.8 L (22.0-30.0) sec Sodium (137-145) mmol/L Potassium (3.5-5.1) mmol/L Chloride (98-107) mmol/L Carbon Dioxide (22-30) mmol/L Anion Gap mmol/L BUN (9-20) mg/dL Creatinine (0.66-1.25) mg/dL Est GFR (CKD-EPI)AfAm (>60 ml/min/1.73 sqM) Est GFR (CKD-EPI)NonAf (>60 ml/min/1.73 sqM) Glucose (74-99) mg/dL Calcium (8.4-10.2) mg/dL Total Bilirubin (0.2-1.3) mg/dL AST (17-59) U/L ALT (4-49) U/L Alkaline Phosphatase (38-126) U/L Troponin I <0.012 (0.000-0.034) ng/mL Total Protein (6.3-8.2) g/dL Albumin (3.5-5.0) g/dL Amylase (30-110) U/L Lipase (23-300) U/L 10/10/21 Range/Units 21:38 WBC (3.8-10.6) k/uL RBC (4.30-5.90) m/uL Hgb (13.0-17.5) gm/dL Hct (39.0-53.0) % MCV (80.0-100.0) fL MCH (25.0-35.0) pg MCHC (31.0-37.0) g/dL RDW (11.5-15.5) % Plt Count (150-450) k/uL MPV Neutrophils % % Lymphocytes % % Monocytes % % Eosinophils % % Basophils % % Neutrophils # (1.3-7.7) k/uL Lymphocytes # (1.0-4.8) k/uL Monocytes # (0-1.0) k/uL Eosinophils # (0-0.7) k/uL Basophils # (0-0.2) k/uL PT (9.0-12.0) sec INR (<1.2) APTT (22.0-30.0) sec Sodium 137 (137-145) mmol/L Potassium 5.5 H (3.5-5.1) mmol/L Chloride 100 (98-107) mmol/L Carbon Dioxide 27 (22-30) mmol/L Anion Gap 10 mmol/L BUN 15 (9-20) mg/dL Creatinine 0.60 L (0.66-1.25) mg/dL Est GFR (CKD-EPI)AfAm >90 (>60 ml/min/1.73 sqM) Est GFR (CKD-EPI)NonAf >90 (>60 ml/min/1.73 sqM) Glucose 66 L (74-99) mg/dL Calcium 8.1 L (8.4-10.2) mg/dL Total Bilirubin 1.0 (0.2-1.3) mg/dL AST 128 H (17-59) U/L ALT 97 H (4-49) U/L Alkaline Phosphatase 47 (38-126) U/L Troponin I (0.000-0.034) ng/mL Total Protein 7.0 (6.3-8.2) g/dL Albumin 4.2 (3.5-5.0) g/dL Amylase 75 (30-110) U/L Lipase 57 (23-300) U/L Disposition <Eduardo Onofre - Last Filed: 10/10/21 20:54> <Asif Veronica - Last Filed: 10/10/21 22:30> Clinical Impression: Alcohol withdrawal Disposition: ADMITTED IP TO THIS [facility] Condition: Fair
--- NOTE | 2021-10-10 21:08 | XR ---
EXAMINATION: XR chest 2V DATE AND TIME: 10/10/2021 9:01 PM CLINICAL INDICATION: abdominal pain TECHNIQUE: Departmental protocol COMPARISON: None FINDINGS: The lungs are clear. The pleural spaces are negative. The cardiac silhouette is not enlarged. The remainder of the mediastinal silhouette is unremarkable. The skeletal structures and soft tissues are negative for acute findings. IMPRESSION: NO ACUTE PROCESS.
[2021-10-10 21:22] LABS: Basophils # (A) 0.1 k/uL (0-0.2); Basophils % (A) 1 %; Eosinophils # (A) 0.1 k/uL (0-0.7); Eosinophils % (A) 1 %; HCT 39.8 % (39.0-53.0); HGB 13.2 gm/dL (13.0-17.5); Lymphocytes # (A) 2.6 k/uL (1.0-4.8); Lymphocytes % (A) 33 %; MCH 31.5 pg (25.0-35.0); MCHC 33.2 g/dL (31.0-37.0); MCV 95.1 fL (80.0-100.0); Mean Platelet Volume 7.8; Monocytes # (A) 0.3 k/uL (0-1.0); Monocytes % (A) 4 %; Neutrophils # (A) 4.6 k/uL (1.3-7.7); Neutrophils % (A) 59 %; Platelet Count 149 k/uL (150-450); RBC 4.18 m/uL (4.30-5.90); RDW 12.9 % (11.5-15.5); WBC 7.8 k/uL (3.8-10.6)
[2021-10-10 21:36] LABS: INR 0.8 (<1.2); Prothrombin Time 9.3 sec (9.0-12.0)
[2021-10-10 21:40] LABS: Partial Thromboplastin Time 20.8 sec (22.0-30.0)
[2021-10-10] MEDS ORDERED: NALOXONE 0.4 MG/ML 1 ML VIAL IV PRN (22:00)
[2021-10-10 22:13] LABS: ALT 97 U/L (4-49); AST 128 U/L (17-59); African American GFR (CKD) >90 (>60 ml/min/1.73 sqM); Albumin 4.2 g/dL (3.5-5.0); Alkaline Phosphatase 47 U/L (38-126); Amylase 75 U/L (30-110); Anion Gap 10 mmol/L; Blood Urea Nitrogen 15 mg/dL (9-20); Calcium 8.1 mg/dL (8.4-10.2); Carbon Dioxide 27 mmol/L (22-30); Chloride 100 mmol/L (98-107); Glucose 66 mg/dL (74-99); Lipase 57 U/L (23-300); Non-African American GFR(CKD) >90 (>60 ml/min/1.73 sqM); Sodium 137 mmol/L (137-145)
[2021-10-10 22:23] LABS: Potassium 5.5 mmol/L (3.5-5.1)
[2021-10-10] MEDS ORDERED: DEXTROSE 50% SYRINGE 50 ML IVP STA (22:29)
[2021-10-10 22:31] LABS: Appearance,Urine Clear (Clear); Bilirubin,Urine Negative (Negative); Blood,Urine Negative (Negative); Color,Urine Yellow; Glucose,Urine (UA) Negative (Negative); Ketones,Urine Negative (Negative); Leukocyte Esterase,Urine Negative (Negative); Nitrite,Urine Negative (Negative); Protein,Urine Negative (Negative); Specific Gravity,Urine 1.018 (1.001-1.035); Urobilinogen,Urine <2.0 mg/dL (<2.0)
[2021-10-10] MEDS: LORazepam 2 MG/ML INJ IV PRN ×2 (22:34→23:40)
[2021-10-10 22:41] LABS: Glucose,Whole Blood 50 mg/dL (75-99)
[2021-10-10 23:06] LABS: Glucose,Whole Blood 105 mg/dL (75-99)
[2021-10-10] MEDS: SODIUM CHLORIDE 0.9% 1,000 ML IV SCH (23:39)
[2021-10-10 23:52] LABS: Glucose,Whole Blood 84 mg/dL (75-99)
[2021-10-11] MEDS: LORazepam 2 MG/ML INJ IV PRN ×8 (01:41→21:10)
[2021-10-11 02:09] LABS: Glucose,Whole Blood 68 mg/dL (75-99)
[2021-10-11 02:28] LABS: Glucose,Whole Blood 103 mg/dL (75-99)
[2021-10-11 04:29] LABS: Glucose,Whole Blood 125 mg/dL (75-99)
[2021-10-11] MEDS: THIAMINE 100 MG TAB PO SCH ×2 (06:22→17:30)
[2021-10-11 06:33] LABS: Glucose,Whole Blood 98 mg/dL (75-99)
[2021-10-11 08:02] LABS: Glucose,Whole Blood 113 mg/dL (75-99)
[2021-10-11] MEDS: PANTOPRAZOLE 40 MG TABLET PO SCH (10:08)
[2021-10-11 10:12] LABS: Glucose,Whole Blood 109 mg/dL (75-99)
[2021-10-11 11:49] LABS: Glucose,Whole Blood 113 mg/dL (75-99)
[2021-10-11 11:59] LABS: African American GFR (CKD) >90 (>60 ml/min/1.73 sqM); Anion Gap 10 mmol/L; Blood Urea Nitrogen 20 mg/dL (9-20); Calcium 8.3 mg/dL (8.4-10.2); Carbon Dioxide 26 mmol/L (22-30); Chloride 98 mmol/L (98-107); Glucose 102 mg/dL (74-99); Non-African American GFR(CKD) >90 (>60 ml/min/1.73 sqM); Potassium 4.3 mmol/L (3.5-5.1); Sodium 134 mmol/L (137-145)
[2021-10-11 16:49] LABS: Glucose,Whole Blood 115 mg/dL (75-99)
[2021-10-11] MEDS: GABAPENTIN 300 MG CAP PO SCH ×2 (17:30→21:11)
[2021-10-11] MEDS: HEPARIN SODIUM,PORCINE/PF 5,000 UNIT/0.5 ML SYRINGE SQ SCH (17:30)
[2021-10-11 20:29] LABS: Glucose,Whole Blood 103 mg/dL (75-99)
[2021-10-11] MEDS: SODIUM CHLORIDE 0.9% 1,000 ML IV SCH (21:11)
--- NOTE | 2021-10-12 00:09 | P.HPIM ---
History of Present Illness H&P Date: 10/11/21 Chief Complaint: Withdrawal symptoms Patient is a 46-year-old male with a known history of hypertension, alcoholic liver disease, osteoarthritis, seizure disorder, obstructive sleep apnea not on CPAP, heavy alcohol use currently everyday smoker and marijuana use and previous admissions with alcohol intoxication and alcohol withdrawal symptoms presents to ER with complaints of generalized shakiness and nausea and epigastric abdominal pain. Patient states that he did drink 2 days ago half a gallon of vodka. Denies any complaints of cough or sputum production. No shortness of breath. No complaints of dysuria. No hematuria. No hematemesis or melena. Patient concerned about alcohol withdrawal symptoms and presents to ER with similar symptoms. Chest x-ray showed no acute process EKG showed normal sinus rhythm. Laboratory data showed WBC 7.8 hemoglobin 13.2 and platelets 149 Sodium 137 potassium 5.5 chloride 100 bicarb is 27 BUN 15 and creatinine 0.6 and glucose of 66 Calcium 8.1 total bilirubin 1.0 AST 128 ALT 97 alk phos 47 troponin x1 negative and lipase level is 57 Urinalysis is negative for infection. Review of Systems Constitutional: Patient denies any fever or chills . No generalized weakness or weight loss. Abdomen: Nausea and epigastric abdominal pain. No diarrhea. Cardiovascular: Patient denies any chest pain or short of breath no palpitations. Respiratory: patient denied any cough or sputum production. No shortness of breath Neurologic: Patient denied any numbness or tingling headache. Musculoskeletal: Patient denies any complaints of joint swelling or deformity. Skin: Negative Psychiatric: Negative Endocrine: No heat or cold intolerance. No recent weight gain. Genitourinary: No dysuria or hematuria. All other 14 point ROS negative except the above Past Medical History Past Medical History: GERD/Reflux, GI Bleed, Hypertension, Liver Disease, Osteoarthritis (OA), Pneumonia, Seizure Disorder, Sleep Apnea/CPAP/BIPAP, Vascular Disorder Additional Past Medical History / Comment(s): Pt recently admitted to [facility] on 07/26/21 with alcohol intoxication/abuse/fall/marijuana abuse. Other hx: Occasional bilateral pedal edema if stands long, arthritis possibly in back/ribs, MILIND without device, ETOH abuse, alcoholic seizures/blackouts/fainting 2017, alcoholic hepatitis, alcoholic gastritis, upper GI bleed, hypomagnesemia, spinal stenosis/herniated disc with surgery, bilateral varicose veins, hemorrhoids History of Any Multi-Drug Resistant Organisms: None Reported Past Surgical History: Appendectomy, Back Surgery, Tonsillectomy Additional Past Surgical History / Comment(s): bilateral discectomy, discectomy L5-S1, EGD Past Anesthesia/Blood Transfusion Reactions: Motion Sickness Past Psychological History: Anxiety, Depression Additional Psychological History / Comment(s): Pt lives alone no pets. Pt uses no assistive device. Smoking Status: Current every day smoker Past Alcohol Use History: Abuse, Heavy Additional Past Alcohol Use History / Comment(s): He has been in rehab in the past for ETOH abuse. december 2020. Pt states he started on and off smoking as a young adult and has more often been a nonsmoker. Pt states he drinks up to 1/2 gallon vodka Past Drug Use History: Marijuana Additional Drug Use History / Comment(s): Pt smoked marijuana on occasion - Past Family History Father Family Medical History: Cancer, Dementia, Neurologic Disorder Additional Family Medical History / Comment(s): melanoma, parkinsons, schizophrenic Mother Family Medical History: Hypertension, Musculoskeletal Disorder, Neurologic Disorder, Osteoarthritis (OA) Additional Family Medical History / Comment(s): Mother of motor neuron disease at the age of 78yrs. Medications and Allergies Home Medications Medication Instructions Recorded Confirmed Type Fluticasone Nasal [place] [Flonase 2 spr EA NOSTRIL BID 10/11/19 10/10/21 History Nasal [place]] traZODone HCL [Desyrel] 100 mg PO HS PRN 05/14/20 10/10/21 History Celecoxib [CeleBREX] 200 mg PO DAILY 07/06/21 10/10/21 History Gabapentin [Neurontin] 600 mg PO TID 07/06/21 10/10/21 History Magnesium Oxide [Mag-Ox] 400 mg PO TID 30 Days #90 tab 08/06/21 10/10/21 Rx Cholecalciferol [Vitamin D3 (25 25 mcg PO DAILY 10/02/21 10/10/21 History Mcg = 1000 Iu)] Nicotine 14Mg/24Hr Patch [Habitrol] 1 patch TRANSDERM DAILY PRN 10/02/21 10/10/21 History Pantoprazole Sodium [Protonix] 40 mg PO DAILY 10/02/21 10/10/21 History Thiamine [Vitamin B-1] 100 mg PO BID-W/MEALS #60 tab 10/08/21 10/10/21 Rx Allergies Allergy/AdvReac Type Severity Reaction Status Date / Time Cephalosporins Allergy Severe Anaphylaxis Verified 10/10/21 17:17 diphenhydramine HCl Allergy Severe Anaphylaxis Verified 10/10/21 17:17 [From Benadryl] divalproex sodium Allergy Severe Anaphylaxis Verified 10/10/21 17:17 [From Depakote] ceftriaxone [From Rocephin] Allergy Anaphylaxis Verified 10/10/21 17:17 cephalexin [From Keflex] Allergy Anaphylaxis Verified 10/10/21 17:17 droperidol Allergy Anaphylaxis Verified 10/10/21 17:17 lisinopril Allergy Anaphylaxis Verified 10/10/21 17:17 Physical Exam Vitals: Vital Signs Temp Pulse Pulse Resp BP BP Pulse Ox 10/11/21 07:57 98.4 F 84 18 119/71 97 10/11/21 03:54 98.6 F 99 18 122/72 95 10/11/21 00:00 98.9 F 100 18 138/95 98 10/10/21 23:21 98.9 F 100 20 138/95 98 10/10/21 21:42 80 20 146/81 98 10/10/21 17:13 97.8 F 87 16 137/85 98 Intake and Output 10/10/21 10/11/21 10/11/21 22:59 06:59 14:59 Intake Total 2440 Balance 2440 Intake: Intake, IV Titration 1000 Amount Sodium Chloride 0.9% 1, 1000 000 ml @ 999 mls/hr IV . Q1H1M [facility] Rx#:[id number] Oral 1440 Other: # Voids 2 Weight 113.398 kg 113.398 kg PHYSICAL EXAMINATION: Patient is lying in the bed comfortably, no acute distress, awake alert and oriented..Anxious and shaky. HEENT: Normocephalic. Neck is supple. Pupils reactive. Nostrils clear. Oral c avity is moist. Neck reveals no JVD, carotid bruits, or thyromegaly. CHEST EXAMINATION: Trachea is central. Symmetrical expansion. Lung llamas clear to auscultation and percussion. CARDIAC: Normal S1, S2 with no gallops. No murmurs ABDOMEN: Soft. Bowel sounds normal. No organomegaly. No abdominal bruits. Extremities: reveal no edema. No clubbing or cyanosis Neurologically awake, alert, oriented x3 with well-coordinated movements. No focal deficits noted Skin: No rash or skin lesions. Psychiatric: Cooperative. Nonsuicidal Musculoskeletal: No joint swelling or deformity. Normal range of motion. Results CBC & Chem 7: 10/10/21 20:56 10/11/21 10:50 Labs: Abnormal Lab Results - Last 24 Hours (Table) 10/10/21 10/10/21 10/10/21 Range/Units 19:49 20:56 21:38 RBC 4.18 L (4.30-5.90) m/uL Plt Count 149 L (150-450) k/uL APTT 20.8 L (22.0-30.0) sec Potassium 5.5 H (3.5-5.1) mmol/L Creatinine 0.60 L (0.66-1.25) mg/dL Glucose 66 L (74-99) mg/dL POC Glucose (mg/dL) (75-99) mg/dL Calcium 8.1 L (8.4-10.2) mg/dL AST 128 H (17-59) U/L ALT 97 H (4-49) U/L 10/10/21 10/10/21 10/11/21 Range/Units 22:39 23:05 02:08 RBC (4.30-5.90) m/uL Plt Count (150-450) k/uL APTT (22.0-30.0) sec Potassium (3.5-5.1) mmol/L Creatinine (0.66-1.25) mg/dL Glucose (74-99) mg/dL POC Glucose (mg/dL) 50 L 105 H 68 L (75-99) mg/dL Calcium (8.4-10.2) mg/dL AST (17-59) U/L ALT (4-49) U/L 10/11/21 10/11/21 10/11/21 Range/Units 02:26 04:27 08:00 RBC (4.30-5.90) m/uL Plt Count (150-450) k/uL APTT (22.0-30.0) sec Potassium (3.5-5.1) mmol/L Creatinine (0.66-1.25) mg/dL Glucose (74-99) mg/dL POC Glucose (mg/dL) 103 H 125 H 113 H (75-99) mg/dL Calcium (8.4-10.2) mg/dL AST (17-59) U/L ALT (4-49) U/L Thrombosis Risk Factor Assmnt - DVT/VTE Prophylaxis DVT/VTE Prophylaxis: Pharmacologic Prophylaxis ordered - Choose All That Apply Each Factor Represents 1 point: Age 41-60 years Other Risk Factors: No Other congenital or acquired thrombophilia - If yes, enter type in comment: No Thrombosis Risk Factor Assessment Total Risk Factor Score: 1 Thrombosis Risk Factor Assessment Level: Low Risk Assessment and Plan Assessment: Acute alcohol withdrawal symptoms Intractable nausea and episode of vomiting Severe alcohol abuse and prior history of withdrawal symptoms GERD Hypertension Alcoholic hepatitis with mild transaminitis History of marijuana use Anxiety/depression Currently everyday smoker Obstructive sleep apnea not using CPAP at home History of alcohol withdrawal seizures History of upper GI bleed DVT prophylaxis with heparin subcu Extra plan: Patient will be continued on IV hydration, thiamine and multivitamins and continue with alcohol withdrawal protocol. Continue GI and DVT prophylaxis. Follow-up closely and patient was counseled extensively for alcohol abstinence and smoking cessation. Time with Patient: Greater than 30
[2021-10-12] MEDS: LORazepam 2 MG/ML INJ IV PRN ×8 (00:23→23:12)
[2021-10-12] MEDS: HEPARIN SODIUM,PORCINE/PF 5,000 UNIT/0.5 ML SYRINGE SQ SCH ×4 (00:24→23:12)
[2021-10-12] MEDS: traZODone HCL 100 MG TAB PO PRN ×2 (00:28→23:12)
[2021-10-12 05:58] LABS: Glucose,Whole Blood 89 mg/dL (75-99)
[2021-10-12] MEDS: THIAMINE 100 MG TAB PO SCH ×2 (06:16→17:23)
[2021-10-12] MEDS: GABAPENTIN 300 MG CAP PO SCH ×3 (08:52→21:02)
[2021-10-12] MEDS: PANTOPRAZOLE 40 MG TABLET PO SCH (08:52)
[2021-10-12 09:01] LABS: Basophils % (A) 1 %; Eosinophils # (A) 0.1 k/uL (0-0.7); Eosinophils % (A) 2 %; HCT 38.3 % (39.0-53.0); HGB 12.3 gm/dL (13.0-17.5); Lymphocytes # (A) 2.1 k/uL (1.0-4.8); Lymphocytes % (A) 49 %; MCH 30.5 pg (25.0-35.0); MCHC 32.2 g/dL (31.0-37.0); MCV 94.9 fL (80.0-100.0); Mean Platelet Volume 7.8; Monocytes # (A) 0.3 k/uL (0-1.0); Monocytes % (A) 6 %; Neutrophils # (A) 1.8 k/uL (1.3-7.7); Neutrophils % (A) 40 %; Platelet Count 144 k/uL (150-450); RBC 4.04 m/uL (4.30-5.90); RDW 13.3 % (11.5-15.5); WBC 4.4 k/uL (3.8-10.6)
[2021-10-12 09:12] LABS: African American GFR (CKD) >90 (>60 ml/min/1.73 sqM); Anion Gap 8 mmol/L; Blood Urea Nitrogen 16 mg/dL (9-20); Calcium 8.8 mg/dL (8.4-10.2); Carbon Dioxide 25 mmol/L (22-30); Chloride 104 mmol/L (98-107); Glucose 93 mg/dL (74-99); Non-African American GFR(CKD) >90 (>60 ml/min/1.73 sqM); Potassium 4.3 mmol/L (3.5-5.1); Sodium 137 mmol/L (137-145)
[2021-10-12 12:09] LABS: Glucose,Whole Blood 83 mg/dL (75-99)
[2021-10-12 17:03] LABS: Glucose,Whole Blood 126 mg/dL (75-99)
[2021-10-12 20:14] LABS: Glucose,Whole Blood 110 mg/dL (75-99)
[2021-10-12] MEDS: SODIUM CHLORIDE 0.9% 1,000 ML IV SCH (21:02)
[2021-10-13] MEDS: LORazepam 2 MG/ML INJ IV PRN ×9 (02:34→23:27)
[2021-10-13 05:51] LABS: Glucose,Whole Blood 102 mg/dL (75-99)
[2021-10-13] MEDS: THIAMINE 100 MG TAB PO SCH ×2 (06:05→16:52)
[2021-10-13] MEDS: GABAPENTIN 300 MG CAP PO SCH ×3 (08:32→20:05)
[2021-10-13] MEDS: HEPARIN SODIUM,PORCINE/PF 5,000 UNIT/0.5 ML SYRINGE SQ SCH ×3 (08:32→23:27)
[2021-10-13] MEDS: PANTOPRAZOLE 40 MG TABLET PO SCH (08:33)
[2021-10-13 11:51] LABS: Glucose,Whole Blood 92 mg/dL (75-99)
[2021-10-13 16:35] LABS: Glucose,Whole Blood 117 mg/dL (75-99)
[2021-10-13] MEDS: SODIUM CHLORIDE 0.9% 1,000 ML IV SCH (20:05)
[2021-10-13 20:12] LABS: Glucose,Whole Blood 119 mg/dL (75-99)
--- NOTE | 2021-10-13 20:48 | P.PN ---
Subjective Progress Note Date: 10/12/21 Patient is a 46-year-old male with a known history of hypertension, alcoholic liver disease, osteoarthritis, seizure disorder, obstructive sleep apnea not on CPAP, heavy alcohol use currently everyday smoker and marijuana use and previous admissions with alcohol intoxication and alcohol withdrawal symptoms presents to ER with complaints of generalized shakiness and nausea and epigastric abdominal pain. Patient states that he did drink 2 days ago half a gallon of vodka. Denies any complaints of cough or sputum production. No shortness of breath. No complaints of dysuria. No hematuria. No hematemesis or melena. Patient concerned about alcohol withdrawal symptoms and presents to ER with similar symptoms. Chest x-ray showed no acute process EKG showed normal sinus rhythm. Laboratory data showed WBC 7.8 hemoglobin 13.2 and platelets 149 Sodium 137 potassium 5.5 chloride 100 bicarb is 27 BUN 15 and creatinine 0.6 and glucose of 66 Calcium 8.1 total bilirubin 1.0 AST 128 ALT 97 alk phos 47 troponin x1 negative and lipase level is 57 Urinalysis is negative for infection. 10/12/2021 Patient is currently lying in the bed. Still feeling very shaky. Requiring IV Ativan. Continued on alcohol withdrawal protocol. No complaints of chest pain. Patient is complaining of epigastric discomfort. Also complains of nausea. No headache or dizziness. It is being current on IV hydration. No fever no chills. No cough or sputum production. Current medications reviewed. Objective - Vital Signs Vital signs: Vital Signs Temp 97.0 F L 10/12/21 08:56 Pulse 73 10/12/21 09:49 Resp 18 10/12/21 09:49 BP 111/69 10/12/21 08:56 Pulse Ox 98 10/12/21 08:56 Intake & Output 10/11/21 10/12/21 10/12/21 18:59 06:59 18:59 Intake Total 580 Balance 580 Weight 106.7 kg Intake: Intake, IV Titration 180 Amount Sodium Chloride 0.9% 1, 180 000 ml @ 20 mls/hr IV . Q24H [facility] Rx#:[id number] Oral 400 Other: Voiding Method Toilet Toilet Toilet # Voids 3 3 - Exam PHYSICAL EXAMINATION: Patient is lying in the bed comfortably, no acute distress, awake alert and oriented..Anxious and shaky. HEENT: Normocephalic. Neck is supple. Pupils reactive. Nostrils clear. Oral cavity is moist. Neck reveals no JVD, carotid bruits, or thyromegaly. CHEST EXAMINATION: Trachea is central. Symmetrical expansion. Lung llamas clear to auscultation and percussion. CARDIAC: Normal S1, S2 with no gallops. No murmurs ABDOMEN: Soft. Bowel sounds normal. No organomegaly. No abdominal bruits. Extremities: reveal no edema. No clubbing or cyanosis Neurologically awake, alert, oriented x3 with well-coordinated movements. No focal deficits noted Skin: No rash or skin lesions. Psychiatric: Cooperative. Nonsuicidal Musculoskeletal: No joint swelling or deformity. Normal range of motion. - Labs CBC & Chem 7: 10/12/21 08:30 10/12/21 08:30 Labs: Abnormal Lab Results - Last 24 Hours (Table) 10/11/21 10/11/21 10/11/21 Range/Units 10:50 11:47 16:48 RBC (4.30-5.90) m/uL Hgb (13.0-17.5) gm/dL Hct (39.0-53.0) % Plt Count (150-450) k/uL Sodium 134 L (137-145) mmol/L Glucose 102 H (74-99) mg/dL POC Glucose (mg/dL) 113 H 115 H (75-99) mg/dL Calcium 8.3 L (8.4-10.2) mg/dL 10/11/21 10/12/21 Range/Units 20:27 08:30 RBC 4.04 L (4.30-5.90) m/uL Hgb 12.3 L (13.0-17.5) gm/dL Hct 38.3 L (39.0-53.0) % Plt Count 144 L (150-450) k/uL Sodium (137-145) mmol/L Glucose (74-99) mg/dL POC Glucose (mg/dL) 103 H (75-99) mg/dL Calcium (8.4-10.2) mg/dL Assessment and Plan Assessment: Acute alcohol withdrawal symptoms Intractable nausea and episode of vomiting Severe alcohol abuse and prior history of withdrawal symptoms GERD Hypertension Alcoholic hepatitis with mild transaminitis History of marijuana use Anxiety/depression Currently everyday smoker Obstructive sleep apnea not using CPAP at home History of alcohol withdrawal seizures History of upper GI bleed DVT prophylaxis with heparin subcu plan: Patient will be continued on IV hydration, thiamine and multivitamins and continue with alcohol withdrawal protocol. Continue GI and DVT prophylaxis. Follow-up closely and patient was counseled extensively for alcohol abstinence and smoking cessation.
--- NOTE | 2021-10-13 20:50 | P.PN ---
Subjective Progress Note Date: 10/13/21 Patient is a 46-year-old male with a known history of hypertension, alcoholic liver disease, osteoarthritis, seizure disorder, obstructive sleep apnea not on CPAP, heavy alcohol use currently everyday smoker and marijuana use and previous admissions with alcohol intoxication and alcohol withdrawal symptoms presents to ER with complaints of generalized shakiness and nausea and epigastric abdominal pain. Patient states that he did drink 2 days ago half a gallon of vodka. Denies any complaints of cough or sputum production. No shortness of breath. No complaints of dysuria. No hematuria. No hematemesis or melena. Patient concerned about alcohol withdrawal symptoms and presents to ER with similar symptoms. Chest x-ray showed no acute process EKG showed normal sinus rhythm. Laboratory data showed WBC 7.8 hemoglobin 13.2 and platelets 149 Sodium 137 potassium 5.5 chloride 100 bicarb is 27 BUN 15 and creatinine 0.6 and glucose of 66 Calcium 8.1 total bilirubin 1.0 AST 128 ALT 97 alk phos 47 troponin x1 negative and lipase level is 57 Urinalysis is negative for infection. 10/12/2021 Patient is currently lying in the bed. Still feeling very shaky. Requiring IV Ativan. Continued on alcohol withdrawal protocol. No complaints of chest pain. Patient is complaining of epigastric discomfort. Also complains of nausea. No headache or dizziness. It is being current on IV hydration. No fever no chills. No cough or sputum production. 10/13/2021 Patient is resting in the bed. No complaints of chest pain or shortness of breath. Able to tolerate oral diet slowly. Continued on alcohol withdrawal protocol. No fever no chills. No cough or sputum production. Patient states that he is still shaky. No other acute overnight issues. Anticipate discharge in the next 24 hours with more clinical improvement.Does have nausea. No episodes of vomiting. No diarrhea. Current medications reviewed. Objective - Vital Signs Vital signs: Vital Signs Temp 98.4 F 10/13/21 16:50 Pulse 76 10/13/21 16:50 Resp 18 10/13/21 16:50 BP 113/70 10/13/21 16:50 Pulse Ox 96 10/13/21 16:50 Intake & Output 10/13/21 10/13/21 10/14/21 06:59 18:59 06:59 Intake Total 1150 838 Balance 1150 838 Intake: Oral 1150 838 Other: Voiding Method Toilet Toilet # Voids 3 1 - Exam PHYSICAL EXAMINATION: Patient is lying in the bed comfortably, no acute distress, awake alert and oriented..Anxious and shaky. HEENT: Normocephalic. Neck is supple. Pupils reactive. Nostrils clear. Oral cavity is moist. Neck reveals no JVD, carotid bruits, or thyromegaly. CHEST EXAMINATION: Trachea is central. Symmetrical expansion. Lung llamas clear to auscultation and percussion. CARDIAC: Normal S1, S2 with no gallops. No murmurs ABDOMEN: Soft. Bowel sounds normal. No organomegaly. No abdominal bruits. Extremities: reveal no edema. No clubbing or cyanosis Neurologically awake, alert, oriented x3 with well-coordinated movements. No focal deficits noted Skin: No rash or skin lesions. Psychiatric: Cooperative. Nonsuicidal Musculoskeletal: No joint swelling or deformity. Normal range of motion. - Labs CBC & Chem 7: 10/12/21 08:30 10/12/21 08:30 Labs: Abnormal Lab Results - Last 24 Hours (Table) 10/13/21 10/13/21 10/13/21 Range/Units 05:49 16:29 20:10 POC Glucose (mg/dL) 102 H 117 H 119 H (75-99) mg/dL Assessment and Plan Assessment: Acute alcohol withdrawal symptoms Intractable nausea and episode of vomiting Severe alcohol abuse and prior history of withdrawal symptoms GERD Hypertension Alcoholic hepatitis with mild transaminitis History of marijuana use Anxiety/depression Currently everyday smoker Obstructive sleep apnea not using CPAP at home History of alcohol withdrawal seizures History of upper GI bleed DVT prophylaxis with heparin subcu plan: Patient will be continued on IV hydration, thiamine and multivitamins and continue with alcohol withdrawal protocol. Continue GI and DVT prophylaxis. Fo llow-up closely and patient was counseled extensively for alcohol abstinence and smoking cessation.
[2021-10-13] MEDS: traZODone HCL 100 MG TAB PO PRN (23:28)
[2021-10-14] MEDS: LORazepam 2 MG/ML INJ IV PRN ×3 (01:45→11:07)
[2021-10-14] MEDS: THIAMINE 100 MG TAB PO SCH ×2 (06:16→17:19)
[2021-10-14 06:18] LABS: Glucose,Whole Blood 94 mg/dL (75-99)
[2021-10-14 08:06] LABS: African American GFR (CKD) >90 (>60 ml/min/1.73 sqM); Anion Gap 9 mmol/L; Blood Urea Nitrogen 17 mg/dL (9-20); Calcium 8.9 mg/dL (8.4-10.2); Carbon Dioxide 24 mmol/L (22-30); Chloride 104 mmol/L (98-107); Glucose 95 mg/dL (74-99); Non-African American GFR(CKD) >90 (>60 ml/min/1.73 sqM); Potassium 4.3 mmol/L (3.5-5.1); Sodium 137 mmol/L (137-145)
[2021-10-14 08:15] LABS: Basophils % (A) 1 %; Eosinophils # (A) 0.1 k/uL (0-0.7); Eosinophils % (A) 2 %; HCT 39.9 % (39.0-53.0); HGB 12.4 gm/dL (13.0-17.5); Lymphocytes # (A) 2.8 k/uL (1.0-4.8); Lymphocytes % (A) 56 %; MCH 29.9 pg (25.0-35.0); MCV 96.5 fL (80.0-100.0); Mean Platelet Volume 8.3; Monocytes # (A) 0.4 k/uL (0-1.0); Monocytes % (A) 8 %; Neutrophils # (A) 1.5 k/uL (1.3-7.7); Neutrophils % (A) 30 %; Platelet Count 176 k/uL (150-450); RBC 4.14 m/uL (4.30-5.90); RDW 12.8 % (11.5-15.5)
[2021-10-14] MEDS: HEPARIN SODIUM,PORCINE/PF 5,000 UNIT/0.5 ML SYRINGE SQ SCH ×3 (11:06→23:04)
[2021-10-14] MEDS: PANTOPRAZOLE 40 MG TABLET PO SCH (11:06)
[2021-10-14] MEDS: GABAPENTIN 300 MG CAP PO SCH ×3 (11:06→21:16)
[2021-10-14 11:40] LABS: Glucose,Whole Blood 108 mg/dL (75-99)
[2021-10-14] MEDS: chlordiazePOXIDE 25 MG CAP PO SCH ×2 (14:08→21:16)
--- NOTE | 2021-10-14 14:09 | P.PN ---
Subjective Progress Note Date: 10/14/21 Patient is a 46-year-old male with a known history of hypertension, alcoholic liver disease, osteoarthritis, seizure disorder, obstructive sleep apnea not on CPAP, heavy alcohol use currently everyday smoker and marijuana use and previous admissions with alcohol intoxication and alcohol withdrawal symptoms presents to ER with complaints of generalized shakiness and nausea and epigastric abdominal pain. Patient states that he did drink 2 days ago half a gallon of vodka. Denies any complaints of cough or sputum production. No shortness of breath. No complaints of dysuria. No hematuria. No hematemesis or melena. Patient concerned about alcohol withdrawal symptoms and presents to ER with similar symptoms. Chest x-ray showed no acute process EKG showed normal sinus rhythm. Laboratory data showed WBC 7.8 hemoglobin 13.2 and platelets 149 Sodium 137 potassium 5.5 chloride 100 bicarb is 27 BUN 15 and creatinine 0.6 and glucose of 66 Calcium 8.1 total bilirubin 1.0 AST 128 ALT 97 alk phos 47 troponin x1 negative and lipase level is 57 Urinalysis is negative for infection. 10/12/2021 Patient is currently lying in the bed. Still feeling very shaky. Requiring IV Ativan. Continued on alcohol withdrawal protocol. No complaints of chest pain. Patient is complaining of epigastric discomfort. Also complains of nausea. No headache or dizziness. It is being current on IV hydration. No fever no chills. No cough or sputum production. 10/13/2021 Patient is resting in the bed. No complaints of chest pain or shortness of breath. Able to tolerate oral diet slowly. Continued on alcohol withdrawal protocol. No fever no chills. No cough or sputum production. Patient states that he is still shaky. No other acute overnight issues. Anticipate discharge in the next 24 hours with more clinical improvement.Does have nausea. No episodes of vomiting. No diarrhea. 10/14/2021 Patient evaluated today resting bed. Last dose of Ativan was around 6 AM this morning. He continues with a CIWA of around 7 to 9. Patient does report nausea ongoing he is not currently vomiting, no diarrhea. He states that when he was discharged from the hospital he was having pain and he just kept drinking to numb the pain. He does not know how much he actually drank. When he drinks he has abdominal pain with vomiting. He verbalizes understanding of the need for alcohol cessation. Discussed in extent multiple admission regarding hospitalization for drinking. He has had multiple admission regarding acute alcohol intoxication and withdrawal. He is not currently working and verbalizes the need to get a job. Labs today are unremarkable with the exception of hemoglobin which is 12.4 currently stable. He is afebrile, heart rate 67, blood pressure 125/79. Review of Systems Constitutional: Denied any fatigue denied any fever. Cardio vascular: denied any chest pain, palpitations Gastrointestinal: Reports nausea, denies vomiting, diarrhea Pulmonary: Denied any shortness of breath cough Neurologic denied any new focal deficits All inpatient medications were reviewed and appropriate changes in these medications as dictated in the interval history and assessment and plan. PHYSICAL EXAMINATION: GENERAL: The patient is alert and oriented x3, not in any acute distress. Well developed, well nourished. HEENT: Pupils are round and equally reacting to light. EOMI. No scleral icterus. No conjunctival pallor. Normocephalic, atraumatic. No pharyngeal erythema. No thyromegaly. CARDIOVASCULAR: S1 and S2 present. No murmurs, rubs, or gallops. PULMONARY: Chest is clear to auscultation, no wheezing or crackles. ABDOMEN: Soft, nontender, nondistended, normoactive bowel sounds. No palpable organomegaly. MUSCULOSKELETAL: No joint swelling or deformity. EXTREMITIES: No cyanosis, clubbing, or pedal edema. Mild tremoring at rest. NEUROLOGICAL: Gross neurological examination did not reveal any focal deficits. SKIN: No rashes. Assessment and Plan Assessment Acute alcohol withdrawal symptoms Intractable nausea and episode of vomiting Severe alcohol abuse and prior history of withdrawal symptoms GERD Hypertension Alcoholic hepatitis with mild transaminitis History of marijuana use Anxiety/depression Currently everyday smoker Obstructive sleep apnea not using CPAP at home History of alcohol withdrawal seizures History of upper GI bleed DVT prophylaxis with heparin subcu Plan: Patient will be continued on IV hydration, thiamine and multivitamins. Continue GI and DVT prophylaxis. Follow-up closely and patient was counseled extensively for alcohol abstinence and smoking cessation. Discontinue ativan CIWA protocol and start librium taper, monitor patient overnight and will plan for discharge in the morning. Increase diet as tolerated. Social work consultation regarding discharge planning. The impression and plan of care has been dictated by Alvina Nagy, Nurse Practitioner as directed. Dr. Melvi MD I have performed a history and physical examination and medical decision making of this patient, discussed the same with the dictator, and agree with the dictators assessment and plan as written, documented as a scribe. Based on total visit time, I have performed more than 50% of this visit. Objective - Vital Signs Vital signs: Vital Signs Temp 98.4 F 10/14/21 12:05 Pulse 67 10/14/21 12:05 Resp 17 10/14/21 12:05 BP 125/79 10/14/21 12:05 Pulse Ox 97 10/14/21 12:05 Intake & Output 10/13/21 10/14/21 10/14/21 18:59 06:59 18:59 Intake Total 838 1730 Balance 838 1730 Intake: Intake, IV Titration 180 Amount Sodium Chloride 0.9% 1, 180 000 ml @ 75 mls/hr IV . [id number] [facility] Rx#:[id number] Oral 838 1550 Other: Voiding Method Toilet Toilet Toilet # Voids 1 2 3 - Labs CBC & Chem 7: 10/14/21 07:23 10/14/21 07:23 Labs: Abnormal Lab Results - Last 24 Hours (Table) 10/13/21 10/13/21 10/14/21 Range/Units 16:29 20:10 07:23 RBC 4.14 L (4.30-5.90) m/uL Hgb 12.4 L (13.0-17.5) gm/dL POC Glucose (mg/dL) 117 H 119 H (75-99) mg/dL 10/14/21 Range/Units 11:37 RBC (4.30-5.90) m/uL Hgb (13.0-17.5) gm/dL POC Glucose (mg/dL) 108 H (75-99) mg/dL Assessment and Plan Time with Patient: Greater than 30
[2021-10-14 17:12] LABS: Glucose,Whole Blood 104 mg/dL (75-99)
[2021-10-14] MEDS: SODIUM CHLORIDE 0.9% 1,000 ML IV SCH (20:04)
[2021-10-14 20:28] LABS: Glucose,Whole Blood 107 mg/dL (75-99)
[2021-10-14] MEDS: ACETAMINOPHEN TAB 325 MG TAB PO PRN (22:23)
[2021-10-14] MEDS: traZODone HCL 100 MG TAB PO PRN (23:32)
[2021-10-15 04:28] VITALS: BP 112/69; PULSE 64; RESP 18; TEMP 97.6
[2021-10-15 07:39] LABS: Glucose,Whole Blood 92 mg/dL (75-99)
[2021-10-15] MEDS: GABAPENTIN 300 MG CAP PO SCH (08:03)
[2021-10-15] MEDS: chlordiazePOXIDE 25 MG CAP PO SCH (08:04)
[2021-10-15] MEDS: PANTOPRAZOLE 40 MG TABLET PO SCH (08:04)
[2021-10-15] MEDS: THIAMINE 100 MG TAB PO SCH (08:04)
[2021-10-15] MEDS: HEPARIN SODIUM,PORCINE/PF 5,000 UNIT/0.5 ML SYRINGE SQ SCH (08:18)
[2021-10-15] MEDS: ACETAMINOPHEN TAB 325 MG TAB PO PRN (08:18)
[2021-10-15 10:32] LABS: African American GFR (CKD) 122.4 (60.0-200.0); Albumin 4.2 g/dL (3.8-4.9); BUN/Creat Ratio 23.13 Ratio (12.00-20.00); Blood Urea Nitrogen 18.5 mg/dL (9.0-27.0); Calcium 9.1 mg/dL (8.7-10.3); Globulin 2.1 g/dL (1.6-3.3); Magnesium 1.7 mg/dL (1.5-2.4); Non-African American GFR(CKD) 105.6 (60.0-200.0); Potassium 4.9 mmol/L (3.5-5.5); Total Bilirubin 0.6 mg/dL (0.30-1.20); Total Protein 6.3 g/dL (6.2-8.2)
[2021-10-15 12:40] LABS: Glucose,Whole Blood 105 mg/dL (75-99)
--- NOTE | 2021-10-15 23:25 | P.DS ---
Providers Date of admission: 10/10/21 22:00 Attending physician: Aida Arias Primary care physician: Veena Bynum Hospital Course: Final Diagnosis Acute alcohol withdrawal symptoms Intractable nausea and episode of vomiting Severe alcohol abuse and prior history of withdrawal symptoms GERD Hypertension Alcoholic hepatitis with mild transaminitis History of marijuana use Anxiety/depression Currently everyday smoker Obstructive sleep apnea not using CPAP at home History of alcohol withdrawal seizures History of upper GI bleed Full Code Discharge Disposition Patient will be discharged home and recommended to follow up with outside resources including community mental health, counseling services, rehabilitation services. Hospital Course This is a 46 year old male who presents to ER with complaints of generalized shakiness and nausea and epigastric abdominal pain. Patient states that he did drink 2 days ago half a gallon of vodka. Denies any complaints of cough or sputum production. No shortness of breath. No complaints of dysuria. No hematuria. No hematemesis or melena. Patient concerned about alcohol withdrawal symptoms and presents to ER with similar symptoms. Past medical history significant for hypertension, alcoholic liver disease, osteoarthritis, seizure disorder, obstructive sleep apnea not on CPAP, heavy alcohol use currently everyday smoker and marijuana use and previous admissions with alcohol intoxication and alcohol withdrawal symptoms. Initial work up consists of negative chest xray, EKG showing normal sinus rhythm. Labs showing WBC 7.8, hemoglobin 13.2, platelets 149. Sodium 137, potassium 5.0, glucose of 66, total bili 1.0, AST 128, ALT 97, alk phos 47, troponin negative x 1. Negative urinalysis. Patient admitted to the hospital for acute alcohol withdrawal and started on CIWA protocol with level of 7 to 9. Patient received IV ativan and continued to experience nausea, diaphoresis and tremoring. No DTs noted. Patient was transitioned off IV ativan, and started on oral librium and monitored overnight. Patient has concerns that when he goes home he has the intention of not drinking however he feels when one thing sets him off he has no control and starts drinking again. Discussed in length about alcohol cessation and the need to follow up with outside providers for support. 10/15/21 Patient evaluated today after being on librium overnight. CIWA scale stable, he has not had ativan in over 24 hours. Hemoglobin stable today at 12.4 no signs of acute bleeding. Patient has had chronic diarrhea in the past, he denies diarrhea currently. Reports some nausea but tolerated diet today, denies vomiting. Platelet count has improved up to 176. Denies chest pain, denies shortness of breath. Lungs are clear, S1 S2 auscultated, abdomen is soft and nontender. Focal neurological exam is negative. No diaphoresis noted today, minimal to no tremoring when arms are expanded. Electrolyte panel today unremarkable sodium 137, potassium 4.3, blood glucose 107, calcium 8.9. Hemodynamically stable, afebrile, heart rate 64, blood pressure 112/69, 99% on room air. Patient will be discharged today on oral librium taper. Please see medication reconciliation for a list of current medications. Thank you for allowing us to participate in the care of this patient. The impression and plan of care has been dictated by Alvina Nagy, Nurse Practitioner as directed. Dr. Melvi MD I have performed a history and physical examination and medical decision making of this patient, discussed the same with the dictator, and agree with the dictators assessment and plan as written, documented as a scribe. Based on total visit time, I have performed more than 50% of this visit. Patient Condition at Discharge: Fair Plan - Discharge Summary Discharge Rx Participant: No New Discharge Prescriptions: New chlordiazePOXIDE HCl [Librium] 0 mg PO DIRECTED 4 Days #9 cap Acetaminophen Tab [Tylenol] 650 mg PO Q6HR PRN tab PRN Reason: Fever And/ Or Pain Continue Fluticasone Nasal [place] [Flonase Nasal [place]] 2 spr EA NOSTRIL BID traZODone HCL [Desyrel] 100 mg PO HS PRN PRN Reason: Insomnia Gabapentin [Neurontin] 600 mg PO TID Celecoxib [CeleBREX] 200 mg PO DAILY Magnesium Oxide [Mag-Ox] 400 mg PO TID 30 Days #90 tab Nicotine 14Mg/24Hr Patch [Habitrol] 1 patch TRANSDERM DAILY PRN PRN Reason: Nicotine Cravings Pantoprazole Sodium [Protonix] 40 mg PO DAILY Thiamine [Vitamin B-1] 100 mg PO BID-W/MEALS #60 tab Cholecalciferol [Vitamin D3 (25 Mcg = 1000 Iu)] 25 mcg PO DAILY Discharge Medication List Fluticasone Nasal [place] [Flonase Nasal [place]] 2 spr EA NOSTRIL BID 10/11/19 [History] traZODone HCL [Desyrel] 100 mg PO HS PRN 05/14/20 [History] Celecoxib [CeleBREX] 200 mg PO DAILY 07/06/21 [History] Gabapentin [Neurontin] 600 mg PO TID 07/06/21 [History] Magnesium Oxide [Mag-Ox] 400 mg PO TID 30 Days #90 tab 08/06/21 [Rx] Cholecalciferol [Vitamin D3 (25 Mcg = 1000 Iu)] 25 mcg PO DAILY 10/02/21 [History] Nicotine 14Mg/24Hr Patch [Habitrol] 1 patch TRANSDERM DAILY PRN 10/02/21 [Histo ry] Pantoprazole Sodium [Protonix] 40 mg PO DAILY 10/02/21 [History] Thiamine [Vitamin B-1] 100 mg PO BID-W/MEALS #60 tab 10/08/21 [Rx] Acetaminophen Tab [Tylenol] 650 mg PO Q6HR PRN tab 10/15/21 [Rx] chlordiazePOXIDE HCl [Librium] 0 mg PO DIRECTED 4 Days #9 cap 10/15/21 [Rx] Follow up Appointment(s)/Referral(s): Bridgette Alexander MD [STAFF PHYSICIAN] - 11/05/21 1:30 pm Veena Bynum DO [Primary Care Provider] - 10/18/21 9:40 am Patient Instructions/Handouts: Gastritis (DC), Alcohol Withdrawal (DC) Activity/Diet/Wound Care/Special Instructions: Abstain from drinking alcohol Take librium as prescribed Increase diet as tolerated Community resources have been provided regarding assistance for alcohol cessation. Follow up with primary provider Follow up with GI services Discharge/Stand Alone Forms: AA Meetings [facility], Who Do I Call?, Community Resources, Outpatient Counseling, Personal [employer] Discharge Disposition: HOME SELF-CARE
== END 2021-10-15 15:13 | disposition home or self-care (01) | DRG 897 ==
LOC: EC 15:48 → 3SCARD 22:00 → 5NMEDONC 10-14 12:36
PROVIDERS: ADMIT Hospitalist; ATTEND Hospitalist
DX: F10.239 Alcohol dependence with withdrawal, unspecified (principal); F17.200 Nicotine dependence, unspecified, uncomplicated; F32.A Depression, unspecified; F41.9 Anxiety disorder, unspecified; G40.909 Epilepsy, unspecified, not intractable, without status epilepticus; G47.33 Obstructive sleep apnea (adult) (pediatric); K21.9 Gastro-esophageal reflux disease without esophagitis; I10 Essential (primary) hypertension; K70.10 Alcoholic hepatitis without ascites; Z79.1 Long term (current) use of non-steroidal anti-inflammatories (NSAID); Z79.899 Other long term (current) drug therapy; Z80.8 Family history of malignant neoplasm of other organs or systems; Z82.0 Family history of epilepsy and other diseases of the nervous system; Z82.49 Family history of ischemic heart disease and other diseases of the circulatory system; F10.229 Alcohol dependence with intoxication, unspecified
CPT/HCPCS: 36415; 71046; 80048; 80053; 81003; 82150; 83690; 83735; 84484; 85025; 85610; 85730; 93005; 96361; 96374; 96375; 99285

== ENCOUNTER 2021-10-19 21:37 | Inpatient (IN) | payer OTHER ==
[2021-10-20] MEDS ORDERED: THIAMINE 100 MG/ML 2 ML VIAL IM STA (03:39)
[2021-10-20] MEDS ORDERED: SODIUM CHLORIDE 0.9% 500 ML 500 ML IV STA (03:39)
[2021-10-20] MEDS ORDERED: SODIUM CHLORIDE 0.9% 1,000 ML IV STA ×2 (03:39)
[2021-10-20] MEDS ORDERED: LORazepam 2 MG/ML INJ IV PRN ×2 (03:39)
[2021-10-20] MEDS ORDERED: LORazepam 2 MG/ML INJ IV STA (03:39)
[2021-10-20] MEDS ORDERED: DIAZEPAM 5 MG/ML 2 ML INJ IVP STA (03:41)
--- NOTE | 2021-10-20 03:42 | ED ---
Alcohol HPI - General Chief Complaint: Abdominal Pain Stated Complaint: ETOH, Abd Pain Time Seen by Provider: 10/20/21 03:19 Source: patient, RN notes reviewed, old records reviewed Mode of arrival: ambulatory Limitations: no limitations - History of Present Illness Initial Comments: This is a 46-year-old male going to significant alcohol withdrawal, patient is shaking intractable shaking tremors poor strain secondary to mental state. Patient is a known alcoholic and is admitted often with alcohol toxicity here at this hospital. He does he does also have history of seizures due to alcohol withdrawal and does have have active nausea and vomiting. MD Complaint: alcohol intoxication, alcohol withdrawal, alcohol dependence Last Drink: unknown (1 day ago) -: days(s) Previous Visits for Alcohol Intoxication?: Yes Recent Trauma: No Associated Symptoms: nausea, vomiting, diaphoresis, tremors, depression Treatments Prior to Arrival: none Chronic Alcohol Use: Yes - Related Data Home Medications Medication Instructions Recorded Confirmed Fluticasone Nasal [place] [Flonase 2 spr EA NOSTRIL BID 10/11/19 10/10/21 Nasal [place]] traZODone HCL [Desyrel] 100 mg PO HS PRN 05/14/20 10/10/21 Celecoxib [CeleBREX] 200 mg PO DAILY 07/06/21 10/10/21 Gabapentin [Neurontin] 600 mg PO TID 07/06/21 10/10/21 Cholecalciferol [Vitamin D3 (25 25 mcg PO DAILY 10/02/21 10/10/21 Mcg = 1000 Iu)] Nicotine 14Mg/24Hr Patch [Habitrol] 1 patch TRANSDERM DAILY PRN 10/02/21 10/10/21 Pantoprazole Sodium [Protonix] 40 mg PO DAILY 10/02/21 10/10/21 Previous Rx's Medication Instructions Recorded Magnesium Oxide [Mag-Ox] 400 mg PO TID 30 Days #90 tab 08/06/21 Thiamine [Vitamin B-1] 100 mg PO BID-W/MEALS #60 tab 10/08/21 Acetaminophen Tab [Tylenol] 650 mg PO Q6HR PRN tab 10/15/21 chlordiazePOXIDE HCl [Librium] 0 mg PO DIRECTED 4 Days #9 cap 10/15/21 Allergies Allergy/AdvReac Type Severity Reaction Status Date / Time Cephalosporins Allergy Severe Anaphylaxis Verified 10/19/21 21:55 diphenhydramine HCl Allergy Severe Anaphylaxis Verified 10/19/21 21:55 [From Benadryl] divalproex sodium Allergy Severe Anaphylaxis Verified 10/19/21 21:55 [From Depakote] ceftriaxone [From Rocephin] Allergy Anaphylaxis Verified 10/19/21 21:55 cephalexin [From Keflex] Allergy Anaphylaxis Verified 10/19/21 21:55 droperidol Allergy Anaphylaxis Verified 10/19/21 21:55 lisinopril Allergy Anaphylaxis Verified 10/19/21 21:55 Review of Systems ROS Statement: Those systems with pertinent positive or pertinent negative responses have been documented in the HPI. ROS Other: All systems not noted in ROS Statement are negative. Past Medical History Past Medical History: GERD/Reflux, GI Bleed, Hypertension, Liver Disease, Osteoarthritis (OA), Pneumonia, Seizure Disorder, Sleep Apnea/CPAP/BIPAP, Vascular Disorder Additional Past Medical History / Comment(s): Pt recently admitted to [facility] on 07/26/21 with alcohol intoxication/abuse/fall/marijuana abuse. Other hx: Occasional bilateral pedal edema if stands long, arthritis possibly in back/ribs, MILIND without device, ETOH abuse, alcoholic seizures/blackouts/fainting 2017, alcoholic hepatitis, alcoholic gastritis, upper GI bleed, hypomagnesemia, spinal stenosis/herniated disc with surgery, bilateral varicose veins, hemorrhoids History of Any Multi-Drug Resistant Organisms: None Reported Past Surgical History: Appendectomy, Back Surgery, Tonsillectomy Additional Past Surgical History / Comment(s): bilateral discectomy, discectomy L5-S1, EGD Past Anesthesia/Blood Transfusion Reactions: Motion Sickness Past Psychological History: Anxiety, Depression Smoking Status: Current every day smoker Past Alcohol Use History: Abuse, Heavy Past Drug Use History: Marijuana - Past Family History Father Family Medical History: Cancer, Dementia, Neurologic Disorder Additional Family Medical History / Comment(s): melanoma, parkinsons, schizophrenic Mother Family Medical History: Hypertension, Musculoskeletal Disorder, Neurologic Dis order, Osteoarthritis (OA) Additional Family Medical History / Comment(s): Mother of motor neuron disease at the age of 78yrs. General Exam Limitations: no limitations General appearance: alert, anxious, in distress Head exam: Present: atraumatic, normocephalic, normal inspection Eye exam: Present: normal appearance, PERRL, EOMI. Absent: scleral icterus, conjunctival injection, periorbital swelling ENT exam: Present: normal exam, mucous membranes moist Neck exam: Present: normal inspection. Absent: tenderness, meningismus, lymphadenopathy Respiratory exam: Present: normal lung sounds bilaterally. Absent: respiratory distress, wheezes, rales, rhonchi, stridor Cardiovascular Exam: Present: normal rhythm, tachycardia, normal heart sounds. Absent: systolic murmur, diastolic murmur, rubs, gallop, clicks GI/Abdominal exam: Present: soft, normal bowel sounds. Absent: distended, tenderness, guarding, rebound, rigid Extremities exam: Present: normal inspection, full ROM, normal capillary refill. Absent: tenderness, pedal edema, joint swelling, calf tenderness Back exam: Present: normal inspection Neurological exam: Present: alert, oriented X3, CN II-XII intact Psychiatric exam: Present: normal affect, normal mood Skin exam: Present: warm, dry, intact, normal color. Absent: rash Course Vital Signs 10/19/21 21:45 Temperature 98.5 F Pulse Rate 103 H Respiratory 20 Rate Blood Pressure 136/85 O2 Sat by Pulse 98 Oximetry - Reevaluation(s) Reevaluation #1: 10/20/21 04:04 Medical record is reviewed Reevaluation #2: 10/20/21 04:04 Mild improvement of symptoms here in the ER Reevaluation #3: 10/20/21 04:04 Patient informed of results and questions are answered Medical Decision Making - Medical Decision Making 38 female to the emergency department with significant alcohol withdrawal. Patient presents today in alcohol withdrawal, will admit for medication supportive care Disposition Clinical Impression: Alcohol intoxication, Intractable nausea and vomiting, Alcohol withdrawal, Depression, Alcohol addiction, Dehydration Disposition: ADMITTED IP TO THIS HOSP Condition: Serious Is patient prescribed a controlled substance at d/c from ED?: No Referrals: Veena Bynum DO [Primary Care Provider] - 1-2 days
[2021-10-20] MEDS: DIAZEPAM 5 MG/ML 2 ML INJ IVP SCH ×2 (03:55→07:47)
[2021-10-20] MEDS ORDERED: NALOXONE 0.4 MG/ML 1 ML VIAL IV PRN (04:01)
[2021-10-20] MEDS ORDERED: MORPHINE SULFATE 4 MG/ML SYRINGE IV PRN (04:01)
[2021-10-20] MEDS ORDERED: ONDANSETRON 4 MG/2 ML VIAL IVP PRN (04:01)
[2021-10-20 04:04] LABS: ALT 58 U/L (4-49); AST 94 U/L (17-59); African American GFR (CKD) >90 (>60 ml/min/1.73 sqM); Albumin 5.3 g/dL (3.5-5.0); Alkaline Phosphatase 62 U/L (38-126); Anion Gap 18 mmol/L; Blood Urea Nitrogen 15 mg/dL (9-20); Calcium 9.4 mg/dL (8.4-10.2); Carbon Dioxide 26 mmol/L (22-30); Chloride 98 mmol/L (98-107); Glucose 83 mg/dL (74-99); Lipase 119 U/L (23-300); Magnesium 1.6 mg/dL (1.6-2.3); Non-African American GFR(CKD) >90 (>60 ml/min/1.73 sqM); Phosphorus 3.4 mg/dL (2.5-4.5); Potassium 4.8 mmol/L (3.5-5.1); Sodium 142 mmol/L (137-145); Total Bilirubin 1.4 mg/dL (0.2-1.3); Total Protein 8.7 g/dL (6.3-8.2)
[2021-10-20 04:18] LABS: Basophils # (A) 0.1 k/uL (0-0.2); Basophils % (A) 1 %; Eosinophils % (A) 0 %; HCT 44.3 % (39.0-53.0); HGB 14.3 gm/dL (13.0-17.5); Lymphocytes # (A) 2.5 k/uL (1.0-4.8); Lymphocytes % (A) 40 %; MCHC 32.2 g/dL (31.0-37.0); MCV 93.3 fL (80.0-100.0); Mean Platelet Volume 7.1; Monocytes # (A) 0.3 k/uL (0-1.0); Monocytes % (A) 5 %; Neutrophils # (A) 3.3 k/uL (1.3-7.7); Neutrophils % (A) 52 %; Platelet Count 352 k/uL (150-450); RBC 4.75 m/uL (4.30-5.90); RDW 13.3 % (11.5-15.5); WBC 6.3 k/uL (3.8-10.6)
[2021-10-20 04:37] LABS: Alcohol 180 mg/dL
[2021-10-20] MEDS: DEXTROSE 5%-0.45% NACL 1,000 ML IV SCH ×3 (06:19→20:04)
[2021-10-20] MEDS: THIAMINE 100 MG TAB PO SCH (17:21)
[2021-10-20] MEDS: LORazepam 2 MG/ML INJ IV PRN ×3 (17:30→23:29)
--- NOTE | 2021-10-20 17:55 | P.HPIM ---
History of Present Illness H&P Date: 10/20/21 Chief Complaint: EtOH intoxication/abdominal pain 46-year-old male going to significant alcohol withdrawal, patient is shaking intractable shaking tremors poor strain secondary to mental state. Patient is a known alcoholic and is admitted often with alcohol toxicity here at this hospital. He does he does also have history of seizures due to alcohol withdrawal and does have have active nausea and vomiting. Blood work completed in ED reveals sodium 142, has a 4.8, BUN/creatinine of 15/0.84, total bilirubin 1.4, AST/ALT of 94/58; serum alcohol level of 180 Patient is admitted to the hospital for alcohol intoxication and impending DTs Review of Systems REVIEW OF SYSTEMS: CONSTITUTIONAL: No fever, no malaise, no fatigue. HEENT: No recent visual problems or hearing problems. Denied any sore throat. CARDIOVASCULAR: No chest pain, orthopnea, PND, no palpitations, no syncope. PULMONARY: No shortness of breath, no cough, no hemoptysis. GASTROINTESTINAL: No diarrhea, no nausea, no vomiting, no abdominal pain. NEUROLOGICAL: No headaches, no weakness, no numbness. HEMATOLOGICAL: Denies any bleeding or petechiae. GENITOURINARY: Denies any burning micturition, frequency, or urgency. MUSCULOSKELETAL/RHEUMATOLOGICAL: Denies any joint pain, swelling, or any muscle pain. ENDOCRINE: Denies any polyuria or polydipsia. The rest of the 14-point review of systems is negative. Past Medical History Past Medical History: GERD/Reflux, GI Bleed, Hypertension, Liver Disease, Osteoarthritis (OA), Pneumonia, Seizure Disorder, Sleep Apnea/CPAP/BIPAP, Vascular Disorder Additional Past Medical History / Comment(s): Pt recently admitted to [facility] on 07/26/21 with alcohol intoxication/abuse/fall/marijuana abuse. Other hx: Occasional bilateral pedal edema if stands long, arthritis possibly in back/ribs, MILIND without device, ETOH abuse, alcoholic seizures/blackouts/fainting 2017, alcoholic hepatitis, alcoholic gastritis, upper GI bleed, hypomagnesemia, spinal stenosis/herniated disc with surgery, bilateral varicose veins, hemorrhoids History of Any Multi-Drug Resistant Organisms: None Reported Past Surgical History: Appendectomy, Back Surgery, Tonsillectomy Additional Past Surgical History / Comment(s): bilateral discectomy, discectomy L5-S1, EGD Past Anesthesia/Blood Transfusion Reactions: Motion Sickness Past Psychological History: Anxiety, Depression Additional Psychological History / Comment(s): Pt lives alone no pets. Pt uses no assistive device. Smoking Status: Current every day smoker Past Alcohol Use History: Abuse, Heavy Additional Past Alcohol Use History / Comment(s): He has been in rehab in the past for ETOH abuse. december 2020. Pt states he started on and off smoking as a young adult and has more often been a nonsmoker. Pt states he drinks up to 1/2 gallon vodka Past Drug Use History: Marijuana Additional Drug Use History / Comment(s): Pt smoked marijuana on occasion - Past Family History Father Family Medical History: Cancer, Dementia, Neurologic Disorder Additional Family Medical History / Comment(s): melanoma, parkinsons, schizophrenic Mother Family Medical History: Hypertension, Musculoskeletal Disorder, Neurologic Disorder, Osteoarthritis (OA) Additional Family Medical History / Comment(s): Mother of motor neuron disease at the age of 78yrs. Medications and Allergies Home Medications Medication Instructions Recorded Confirmed Type Fluticasone Nasal [place] [Flonase 2 spr EA NOSTRIL BID 10/11/19 10/20/21 History Nasal [place]] traZODone HCL [Desyrel] 100 mg PO HS PRN 05/14/20 10/20/21 History Celecoxib [CeleBREX] 200 mg PO DAILY 07/06/21 10/20/21 History Gabapentin [Neurontin] 600 mg PO TID 07/06/21 10/20/21 History Magnesium Oxide [Mag-Ox] 400 mg PO TID 30 Days #90 tab 08/06/21 10/20/21 Rx Cholecalciferol [Vitamin D3 (25 25 mcg PO DAILY 10/02/21 10/20/21 History Mcg = 1000 Iu)] Nicotine 14Mg/24Hr Patch [Habitrol] 1 patch TRANSDERM DAILY PRN 10/02/21 10/20/21 History Pantoprazole Sodium [Protonix] 40 mg PO DAILY 10/02/21 10/20/21 History Thiamine [Vitamin B-1] 100 mg PO BID-W/MEALS #60 tab 10/08/21 10/20/21 Rx Acetaminophen Tab [Tylenol] 650 mg PO Q6HR PRN tab 10/15/21 10/20/21 Rx Allergies Allergy/AdvReac Type Severity Reaction Status Date / Time Cephalosporins Allergy Severe Anaphylaxis Verified 10/20/21 12:16 diphenhydramine HCl Allergy Severe Anaphylaxis Verified 10/20/21 12:16 [From Benadryl] divalproex sodium Allergy Severe Anaphylaxis Verified 10/20/21 12:16 [From Depakote] ceftriaxone [From Rocephin] Allergy Anaphylaxis Verified 10/20/21 12:16 cephalexin [From Keflex] Allergy Anaphylaxis Verified 10/20/21 12:16 droperidol Allergy Anaphylaxis Verified 10/20/21 12:16 lisinopril Allergy Anaphylaxis Verified 10/20/21 12:16 Physical Exam Vitals: Vital Signs Temp Pulse Pulse Resp BP BP Pulse Ox 10/20/21 07:20 98.7 F 88 17 146/97 98 10/20/21 06:14 98.5 F 91 16 165/94 98 10/19/21 21:45 98.5 F 103 H 20 136/85 98 Intake and Output 10/19/21 10/20/21 10/20/21 22:59 06:59 14:59 Other: Voiding Method Urinal Weight 113.398 kg 113.398 kg PHYSICAL EXAMINATION: GENERAL: The patient is alert and oriented x3, not in any acute distress. Well developed, well nourished. HEENT: Pupils are round and equally reacting to light. EOMI. No scleral icterus. No conjunctival pallor. Normocephalic, atraumatic. No pharyngeal erythema. No thyromegaly. CARDIOVASCULAR: S1 and S2 present. No murmurs, rubs, or gallops. PULMONARY: Chest is clear to auscultation, no wheezing or crackles. ABDOMEN: Soft, nontender, nondistended, normoactive bowel sounds. No palpable organomegaly. MUSCULOSKELETAL: No joint swelling or deformity. EXTREMITIES: No cyanosis, clubbing, or pedal edema. NEUROLOGICAL: Gross neurological examination did not reveal any focal deficits. SKIN: No rashes. Results CBC & Chem 7: 10/20/21 03:42 10/20/21 03:42 Labs: Abnormal Lab Results - Last 24 Hours (Table) 10/20/21 Range/Units 03:42 Total Bilirubin 1.4 H (0.2-1.3) mg/dL AST 94 H (17-59) U/L ALT 58 H (4-49) U/L Total Protein 8.7 H (6.3-8.2) g/dL Albumin 5.3 H (3.5-5.0) g/dL Thrombosis Risk Factor Assmnt - Choose All That Apply Each Factor Represents 1 point: Age 41-60 years, Obesity (BMI >25) Thrombosis Risk Factor Assessment Total Risk Factor Score: 2 Thrombosis Risk Factor Assessment Level: Low Risk Assessment and Plan Assessment: 1. EtOH intoxication/pending withdrawal - Patient remains on IV fluids, thiamine and folic acid, CIWA protocol with Ativan; patient is also been placed on Valium scheduled every 6 hours; we will continue with CIWA protocol with Ativan and discontinue Valium - Social work consulted for discharge planning and resources 2. Alcoholic hepatitis; related to chronic alcohol use/abuse; counseling done; monitor liver enzymes closely 3. Seizure disorder; likely related to EtOH withdrawal; patient is on Neurontin 600 mg 3 times a day which seems to be in place for anxiety rather than seizure disorder 4. Hypertension; currently not on any antihypertensive therapy 5. Osteoarthritis; Tylenol when necessary DVT prophylaxis; SCDs CODE STATUS; full code
[2021-10-21] MEDS: DEXTROSE 5%-0.45% NACL 1,000 ML IV SCH (04:07)
[2021-10-21] MEDS: LORazepam 2 MG/ML INJ IV PRN ×4 (04:08→23:52)
[2021-10-21] MEDS: THIAMINE 100 MG TAB PO SCH ×2 (09:06→17:39)
[2021-10-21 09:27] LABS: Magnesium 1.5 mg/dL (1.5-2.4)
[2021-10-21 09:42] LABS: Basophils # (A) 0.02 X 10*3/uL (0.00-0.10); Basophils % (A) 0.4 %; Eosinophils # (A) 0.02 X 10*3/uL (0.04-0.35); Eosinophils % (A) 0.4 %; HCT 35.6 % (39.6-50.0); HGB 11.4 g/dL (13.0-17.0); Immature Grans, Automated 0.2 %; Lymphocytes % (A) 46.6 %; MCH 29.5 pg (27.0-32.0); MCV 92.2 fL (80.0-97.0); Mean Platelet Volume 9.7 fL (9.5-12.2); Monocytes # (A) 0.53 X 10*3/uL (0.20-1.00); Monocytes % (A) 10.7 %; NRBC Per 100 WBC 0 /100 WBCS (0.0-0.0); Neutrophils # (A) 2.06 X 10*3/uL (1.80-7.70); Neutrophils % (A) 41.7 %; Platelet Count 219 X 10*3/uL (140-440); RBC 3.86 X 10*6/uL (4.40-5.60); RDW 13.2 % (11.5-14.5); WBC 4.94 X 10*3/uL (4.50-10.00)
[2021-10-21 09:58] LABS: African American GFR (CKD) 129.3 (60.0-200.0); Albumin 4.1 g/dL (3.8-4.9); Albumin/Globulin Ratio 2.16 (1.60-3.17); Anion Gap 11.7 mmol/L (10.00-18.00); Bilirubin, Conjugated 0.41 mg/dL (0.20-0.40); Bilirubin,Unconjugated 1.49 mg/dL (0.20-1.00); Blood Urea Nitrogen 12.6 mg/dL (9.0-27.0); Carbon Dioxide 30.3 mmol/L (20.0-27.5); Globulin 1.9 g/dL (1.6-3.3); Non-African American GFR(CKD) 111.6 (60.0-200.0); Potassium 3.9 mmol/L (3.5-5.5); Total Bilirubin 1.9 mg/dL (0.30-1.20)
[2021-10-21] MEDS ORDERED: diazePAM 5 MG TAB PO STA (12:40)
[2021-10-21] MEDS: ACETAMINOPHEN TAB 325 MG TAB PO PRN (19:39)
[2021-10-21] MEDS ORDERED: diazePAM 5 MG TAB PO PRN (19:42)
[2021-10-21] MEDS ORDERED: SODIUM CHLORIDE 0.9% 1,000 ML IV SCH (19:45)
--- NOTE | 2021-10-21 19:46 | P.PN ---
Subjective 46-year-old male going to significant alcohol withdrawal, patient is shaking intractable shaking tremors poor strain secondary to mental state. Patient is a known alcoholic and is admitted often with alcohol toxicity here at this hospital. He does he does also have history of seizures due to alcohol withdrawal and does have have active nausea and vomiting. Blood work completed in ED reveals sodium 142, has a 4.8, BUN/creatinine of 15/0.84, total bilirubin 1.4, AST/ALT of 94/58; serum alcohol level of 180 Patient is admitted to the hospital for alcohol intoxication and impending DTs 10/21/2021, resume the care of the patient today. Patient is a pleasant 46 years old male who presents with alcohol abuse and alcohol withdrawal. He has multiple hospitalization for the same reason. Continue with CIWA protocol and thiamine. Patient is eating well and vitals are stable. Discontinue IV fluid. Has evidence of alcoholic liver disease. He denies suicidal ideation Patient is improving and possible discharge in 24 hours if he keeps improving. Discussed with patient and he and agreement. Objective - Vital Signs Vital signs: Vital Signs Temp 97.7 F 10/21/21 06:48 Pulse 72 10/21/21 06:48 Resp 18 10/21/21 06:48 BP 132/75 10/21/21 06:48 Pulse Ox 99 10/21/21 06:48 Intake & Output 10/20/21 10/21/21 10/21/21 18:59 06:59 18:59 Output Total 1 1 Balance -1 -1 Output: Stool 1 1 Other: Voiding Method Urinal Urinal Urinal # Voids 3 - Exam GENERAL: The patient is alert and oriented x3, not in any acute distress. Well developed, well nourished. HEENT: Pupils are round and equally reacting to light. EOMI. No scleral icterus. No conjunctival pallor. Normocephalic, atraumatic. No pharyngeal erythema. No thyromegaly. CARDIOVASCULAR: S1 and S2 present. No murmurs, rubs, or gallops. PULMONARY: Chest is clear to auscultation, no wheezing or crackles. ABDOMEN: Soft, nontender, nondistended, normoactive bowel sounds. No palpable organomegaly. MUSCULOSKELETAL: No joint swelling or deformity. EXTREMITIES: No cyanosis, clubbing, or pedal edema. NEUROLOGICAL: Gross neurological examination did not reveal any focal deficits. SKIN: No rashes. no petechiae. - Labs CBC & Chem 7: 10/21/21 05:15 10/21/21 05:15 Labs: Abnormal Lab Results - Last 24 Hours (Table) 10/21/21 10/21/21 Range/Units 05:15 05:15 RBC 3.86 L (4.40-5.60) X 10*6/uL Hgb 11.4 L (13.0-17.0) g/dL Hct 35.6 L (39.6-50.0) % Eosinophils # 0.02 L (0.04-0.35) X 10*3/uL Carbon Dioxide 30.3 H (20.0-27.5) mmol/L Total Bilirubin 1.90 H (0.30-1.20) mg/dL Conjugated Bilirubin 0.41 H (0.20-0.40) mg/dL Unconjugated Bilirubin 1.49 H (0.20-1.00) mg/dL AST 76 H (14-35) U/L ALT 53 H (10-49) U/L Total Protein 6.0 L (6.2-8.2) g/dL Assessment and Plan Assessment: Alcohol abuse Alcohol withdrawal Alcoholic liver disease and hepatitis Hypertension History of seizure, related to alcohol abuse History of osteoarthritis Plan: This is a pleasant 46 years old male who presents with alcohol withdrawal Continue with CIWA protocol with a mean Patient encouraged to quit drinking and he states he will not go back to drinking. Labs and medication were reviewed.. Continue same treatment. Continue with symptomatic treatment. Resume home medication. Monitor lytes and vitals. DVT and GI prophylaxis. Further recommendations as per clinical course of the patient DVT prophylaxis: Subcutaneous heparin GI Prophylaxis: Pepcid Prognosis is guarded. Long-term prognosis
[2021-10-21] MEDS ORDERED: FAMOTIDINE 20 MG/2 ML VIAL IV SCH (21:00)
[2021-10-21] MEDS: HEPARIN SODIUM,PORCINE/PF 5,000 UNIT/0.5 ML SYRINGE SQ SCH (21:24)
[2021-10-21] MEDS: FAMOTIDINE 20 MG TAB PO SCH (21:24)
[2021-10-22 00:55] VITALS: RESP 16; TEMP 98.2
[2021-10-22] MEDS: LORazepam 2 MG/ML INJ IV PRN (05:56)
[2021-10-22] MEDS: ACETAMINOPHEN TAB 325 MG TAB PO PRN (06:00)
[2021-10-22] MEDS: HEPARIN SODIUM,PORCINE/PF 5,000 UNIT/0.5 ML SYRINGE SQ SCH (08:26)
[2021-10-22] MEDS: FAMOTIDINE 20 MG TAB PO SCH (08:26)
[2021-10-22] MEDS: THIAMINE 100 MG TAB PO SCH (08:26)
[2021-10-22 08:43] VITALS: BP 133/86; PULSE 61
[2021-10-22] MEDS ORDERED: diazePAM 5 MG TAB PO STA (12:52)
--- NOTE | 2021-10-22 21:36 | P.DS ---
Providers Date of admission: 10/20/21 04:01 Attending physician: Aida Arias Primary care physician: Veena Mar Hospital Course: Diagnoses: Alcohol abuse Alcohol withdrawal Alcoholic liver disease and hepatitis Hypertension History of seizure, related to alcohol abuse History of osteoarthritis Hospital course: 46-year-old male going to significant alcohol withdrawal, patient is shaking intractable shaking tremors poor strain secondary to mental state. Patient is a known alcoholic and is admitted often with alcohol toxicity here at this hospital. He does he does also have history of seizures due to alcohol withdrawal and does have have active nausea and vomiting. Patient was admitted to the hospital with signs and symptoms of uremia tremens and alcohol withdrawal. Patient however was treated with Ativan per CIWA protocol with a mean also received oral Valium tapered dose and patient did well, this morning he was improving and we waited to the afternoon. Patient received 1 dose of value 5 mg after that he felt well, no agitation, he thinks Valium helped him, after that he just stopped and wanted to leave stating that he is improving. Patient also told me he has an appointment with alcohol rehab at [place] which he intends to follow up with Patient given Valium which is long acting, patient does not need to protect Ativan upon discharge. His CIWA score is low and improving. Patient also denies depressive symptoms, he denies suicidal or homicidal ideation. Symptomatic treatment is provided for the patient upon discharge Problems and management plan were discussed with the patient and he verbalized understanding and acceptance Patient was found stable and can be discharged home in good prognosis however he needs follow-up as an outpatient. Patient was instructed to follow up with PCP Dr. Mar within one week and patient agrees Patient was instructed to follow up with his her alcohol rehab on this coming Thursday as informed the medical team and he agrees. A taxi cab Is provided for the patient upon discharge per staff Physical exam Gen: patient is a AAOx3, no distress CVS: S1-S2, RRR, no murmur Lungs: B/L CTA, no wheezing Abdomen: soft, no distention, no tenderness, positive bowel sounds Extremity: no leg edema or induration Time spent more than 35 minutes Patient Condition at Discharge: Serious Plan - Discharge Summary Discharge Rx Participant: Yes New Discharge Prescriptions: New Ondansetron [Zofran] 4 mg PO Q8HR PRN 3 Days #12 tab PRN Reason: Nausea And Vomiting Continue Fluticasone Nasal [place] [Flonase Nasal [place]] 2 spr EA NOSTRIL BID traZODone HCL [Desyrel] 100 mg PO HS PRN PRN Reason: Insomnia Gabapentin [Neurontin] 600 mg PO TID Celecoxib [CeleBREX] 200 mg PO DAILY Magnesium Oxide [Mag-Ox] 400 mg PO TID 30 Days #90 tab Cholecalciferol [Vitamin D3 (25 Mcg = 1000 Iu)] 25 mcg PO DAILY Acetaminophen Tab [Tylenol] 650 mg PO Q6HR PRN tab PRN Reason: Fever And/ Or Pain Pantoprazole Sodium [Protonix] 40 mg PO DAILY 7 Days #7 tab Thiamine [Vitamin B-1] 100 mg PO BID-W/MEALS #30 tab No Action Nicotine 14Mg/24Hr Patch [Habitrol] 1 patch TRANSDERM DAILY PRN PRN Reason: Nicotine Cravings Discharge Medication List Fluticasone Nasal [place] [Flonase Nasal [place]] 2 spr EA NOSTRIL BID 10/11/19 [History] traZODone HCL [Desyrel] 100 mg PO HS PRN 05/14/20 [History] Celecoxib [CeleBREX] 200 mg PO DAILY 07/06/21 [History] Gabapentin [Neurontin] 600 mg PO TID 07/06/21 [History] Magnesium Oxide [Mag-Ox] 400 mg PO TID 30 Days #90 tab 08/06/21 [Rx] Cholecalciferol [Vitamin D3 (25 Mcg = 1000 Iu)] 25 mcg PO DAILY 10/02/21 [History] Nicotine 14Mg/24Hr Patch [Habitrol] 1 patch TRANSDERM DAILY PRN 10/02/21 [History] Acetaminophen Tab [Tylenol] 650 mg PO Q6HR PRN tab 10/15/21 [Rx] Ondansetron [Zofran] 4 mg PO Q8HR PRN 3 Days #12 tab 10/22/21 [Rx] Pantoprazole Sodium [Protonix] 40 mg PO DAILY 7 Days #7 tab 10/22/21 [Rx] Thiamine [Vitamin B-1] 100 mg PO BID-W/MEALS #30 tab 10/22/21 [Rx] Follow up Appointment(s)/Referral(s): Veena Mar DO [Primary Care Provider] - 1-2 days Activity/Diet/Wound Care/Special Instructions: heart healthy diet activity is restricted till you see your doctor follow up with [facility] on your appointment date this thursday10/25/2021, as you informed the medical team Discharge Disposition: HOME SELF-CARE
== END 2021-10-22 17:38 | disposition home or self-care (01) | DRG 897 ==
LOC: SUPCPDRO 21:37 → EC 21:37 → 4SSUR 10-20 04:01
PROVIDERS: ADMIT Hospitalist; ATTEND Hospitalist
PROC: HZ2ZZZZ Detoxification Services for Substance Abuse Treatment (ICD-10-PCS; principal; 2021-10-20)
DX: F10.231 Alcohol dependence with withdrawal delirium (principal); E86.0 Dehydration; F10.229 Alcohol dependence with intoxication, unspecified; F32.A Depression, unspecified; F17.210 Nicotine dependence, cigarettes, uncomplicated; F41.9 Anxiety disorder, unspecified; E83.42 Hypomagnesemia; K29.20 Alcoholic gastritis without bleeding; G47.33 Obstructive sleep apnea (adult) (pediatric); G40.909 Epilepsy, unspecified, not intractable, without status epilepticus; Y90.6 Blood alcohol level of 120-199 mg/100 ml; R11.2 Nausea with vomiting, unspecified; I10 Essential (primary) hypertension; K70.10 Alcoholic hepatitis without ascites; M19.90 Unspecified osteoarthritis, unspecified site; Z79.1 Long term (current) use of non-steroidal anti-inflammatories (NSAID); Z79.899 Other long term (current) drug therapy; Z80.8 Family history of malignant neoplasm of other organs or systems; Z82.0 Family history of epilepsy and other diseases of the nervous system; Z71.41 Alcohol abuse counseling and surveillance of alcoholic; Z87.01 Personal history of pneumonia (recurrent); Z88.1 Allergy status to other antibiotic agents; Z88.8 Allergy status to other drugs, medicaments and biological substances; Z87.19 Personal history of other diseases of the digestive system
CPT/HCPCS: 36415; 80053; 80076; 80320; 83690; 83735; 84100; 85025; 96372; 96374; 96375; 96376; 99285

== ENCOUNTER 2021-10-22 21:57 | Observation (INO) | payer OTHER ==
--- NOTE | 2021-10-22 22:26 | ED ---
Fall HPI - General Stated Complaint: Fall Time Seen by Provider: 10/22/21 22:03 Source: patient, EMS, RN notes reviewed, old records reviewed Mode of arrival: EMS Limitations: altered mental status (Intoxication) - History of Present Illness Initial Comments: This is a 38-year-old male who is well-known to our facility for evaluation today. Patient does have history of multiple ER visits and recent ER visit with hospital admission. 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 Witnessed: no Place Fall Occurred: home Loss of Consciousness: none Prolonged Down Time?: no Symptoms Prior to Fall: none Location: head, chest, back, pelvis Severity: moderate Severity scale (1-10): 4 Quality: sharp, aching Context: tripped/slipped, alcohol use, history of frequent falls Associated Symptoms: headache, neck pain, weakness, lightheaded - Related Data Home Medications Medication Instructions Recorded Confirmed Fluticasone Nasal [place] [Flonase 2 spr EA NOSTRIL BID 10/11/19 10/22/21 Nasal [place]] traZODone HCL [Desyrel] 100 mg PO HS PRN 05/14/20 10/22/21 Celecoxib [CeleBREX] 200 mg PO DAILY 07/06/21 10/22/21 Gabapentin [Neurontin] 600 mg PO TID 07/06/21 10/22/21 Cholecalciferol [Vitamin D3 (25 25 mcg PO DAILY 10/02/21 10/22/21 Mcg = 1000 Iu)] Nicotine 14Mg/24Hr Patch [Habitrol] 1 patch TRANSDERM DAILY PRN 10/02/21 10/22/21 Previous Rx's Medication Instructions Recorded Magnesium Oxide [Mag-Ox] 400 mg PO TID 30 Days #90 tab 08/06/21 Acetaminophen Tab [Tylenol] 650 mg PO Q6HR PRN tab 10/15/21 Ondansetron [Zofran] 4 mg PO Q8HR PRN 3 Days #12 tab 10/22/21 Pantoprazole Sodium [Protonix] 40 mg PO DAILY 7 Days #7 tab 10/22/21 Thiamine [Vitamin B-1] 100 mg PO BID-W/MEALS #30 tab 10/22/21 Allergies Allergy/AdvReac Type Severity Reaction Status Date / Time Cephalosporins Allergy Severe Anaphylaxis Verified 10/22/21 23:16 diphenhydramine HCl Allergy Severe Anaphylaxis Verified 10/22/21 23:16 [From Benadryl] divalproex sodium Allergy Severe Anaphylaxis Verified 10/22/21 23:16 [From Depakote] ceftriaxone [From Rocephin] Allergy Anaphylaxis Verified 10/22/21 23:16 cephalexin [From Keflex] Allergy Anaphylaxis Verified 10/22/21 23:16 droperidol Allergy Anaphylaxis Verified 10/22/21 23:16 lisinopril Allergy Anaphylaxis Verified 10/22/21 23:16 Review of Systems ROS Statement: Those systems with pertinent positive or pertinent negative responses have been documented in the HPI. ROS Other: All systems not noted in ROS Statement are negative. Past Medical History Past Medical History: GERD/Reflux, GI Bleed, Hypertension, Liver Disease, Osteoarthritis (OA), Pneumonia, Seizure Disorder, Sleep Apnea/CPAP/BIPAP, Vascular Disorder Additional Past Medical History / Comment(s): Pt recently admitted to [facility] on 07/26/21 with alcohol intoxication/abuse/fall/marijuana abuse. Other hx: Occasional bilateral pedal edema if stands long, arthritis possibly in back/ribs, MILIND without device, ETOH abuse, alcoholic seizures/blackouts/fainting 2016, alcoholic hepatitis, alcoholic gastritis, upper GI bleed, hypomagnesemia, spinal stenosis/herniated disc with surgery, bilateral varicose veins, hemorrhoids History of Any Multi-Drug Resistant Organisms: None Reported Past Surgical History: Appendectomy, Back Surgery, Tonsillectomy Additional Past Surgical History / Comment(s): bilateral discectomy, discectomy L5-S1, EGD Past Anesthesia/Blood Transfusion Reactions: Motion Sickness Past Psychological History: Anxiety, Depression Smoking Status: Current every day smoker Past Alcohol Use History: Abuse, Heavy Past Drug Use History: Marijuana - Past Family History Father Family Medical History: Cancer, Dementia, Neurologic Disorder Additional Family Medical History / Comment(s): melanoma, parkinsons, schizophrenic Mother Family Medical History: Hypertension, Musculoskeletal Disorder, Neurologic Disorder, Osteoarthritis (OA) Additional Family Medical History / Comment(s): Mother of motor neuron disease at the age of 78yrs. General Exam - General Exam Comments Initial Comments: Patient presents in c-collar Condition does have significant tremor Limitations: no limitations General appearance: alert, appears intoxicated, anxious Head exam: Present: atraumatic, normocephalic, normal inspection Eye exam: Present: normal appearance, PERRL, EOMI. Absent: scleral icterus, conjunctival injection, periorbital swelling ENT exam: Present: normal exam, mucous membranes moist Neck exam: Present: normal inspection. Absent: tenderness, meningismus, lymphadenopathy Respiratory exam: Present: normal lung sounds bilaterally. Absent: respiratory distress, wheezes, rales, rhonchi, stridor Cardiovascular Exam: Present: regular rate, normal rhythm, normal heart sounds. Absent: systolic murmur, diastolic murmur, rubs, gallop, clicks GI/Abdominal exam: Present: soft, normal bowel sounds. Absent: distended, tenderness, guarding, rebound, rigid Extremities exam: Present: normal inspection, full ROM, normal capillary refill. Absent: tenderness, pedal edema, joint swelling, calf tenderness Back exam: Present: normal inspection Neurological exam: Present: alert, oriented X3, CN II-XII intact Psychiatric exam: Present: normal affect, normal mood Skin exam: Present: warm, dry, intact, normal color. Absent: rash Course Vital Signs 10/22/21 22:09 Temperature 98.1 F Pulse Rate 74 Respiratory 16 Rate Blood Pressure 152/84 O2 Sat by Pulse 97 Oximetry - Reevaluation(s) Reevaluation #1: 10/22/21 22:42 Medical records reviewed 10/22/21 22:43 Prior ER visit and inpatient hospitalization is also been reviewed Reevaluation #2: 10/23/21 00:03 Patient informed of results and questions answered Reevaluation #3: 10/23/21 00:03 Patient continues to have significant tremor nausea vomiting signs of withdrawal Medical Decision Making - Medical Decision Making 46 male to be admitted for falls, likely DTs. Patient be admitted for monitoring - Lab Data Result diagrams: 10/22/21 23:20 10/22/21 23:20 Lab Results 10/22/21 10/22/21 Range/Units 23:20 23:20 WBC 6.8 (3.8-10.6) k/uL RBC 4.48 (4.30-5.90) m/uL Hgb 13.0 (13.0-17.5) gm/dL Hct 42.2 (39.0-53.0) % MCV 94.2 (80.0-100.0) fL MCH 29.0 (25.0-35.0) pg MCHC 30.8 L (31.0-37.0) g/dL RDW 13.0 (11.5-15.5) % Plt Count 242 (150-450) k/uL MPV 7.4 Neutrophils % 58 % Lymphocytes % 34 % Monocytes % 5 % Eosinophils % 0 % Basophils % 1 % Neutrophils # 3.9 (1.3-7.7) k/uL Lymphocytes # 2.3 (1.0-4.8) k/uL Monocytes # 0.3 (0-1.0) k/uL Eosinophils # 0.0 (0-0.7) k/uL Basophils # 0.1 (0-0.2) k/uL Sodium 136 L (137-145) mmol/L Chloride 98 (98-107) mmol/L Carbon Dioxide 27 (22-30) mmol/L Anion Gap 11 mmol/L BUN 6 L (9-20) mg/dL Creatinine 0.64 L (0.66-1.25) mg/dL Est GFR (CKD-EPI)AfAm >90 (>60 ml/min/1.73 sqM) Est GFR (CKD-EPI)NonAf >90 (>60 ml/min/1.73 sqM) Glucose 90 (74-99) mg/dL Calcium 9.2 (8.4-10.2) mg/dL Phosphorus 4.4 (2.5-4.5) mg/dL Magnesium 1.3 L (1.6-2.3) mg/dL Total Bilirubin 1.9 H (0.2-1.3) mg/dL AST 147 H (17-59) U/L ALT 100 H (4-49) U/L Alkaline Phosphatase 45 (38-126) U/L Total Protein 7.6 (6.3-8.2) g/dL Albumin 4.7 (3.5-5.0) g/dL Lipase 99 (23-300) U/L Serum Alcohol 225 H* mg/dL - Radiology Data Radiology results: report reviewed (CT brain C-spine x-ray chest lumbar spine and pelvis are negative for traumatic injury), image reviewed Disposition Clinical Impression: Pre-syncope, Dehydration, Fall, Alcohol abuse, Alcohol intoxication, Alcohol withdrawal, Alcohol abuse with withdrawal, Nausea & vomiting Disposition: ADMITTED IP TO THIS HOSP Condition: Fair Is patient prescribed a controlled substance at d/c from ED?: No Referrals: Veena Bynum DO [Primary Care Provider] - 1-2 days
[2021-10-22] MEDS ORDERED: SODIUM CHLORIDE 0.9% 500 ML 500 ML IV STA (22:28)
[2021-10-22] MEDS ORDERED: LORazepam 2 MG/ML INJ IV STA (22:28)
[2021-10-22] MEDS ORDERED: THIAMINE 200 MG in SODIUM CHLORIDE 0.9% 50 ML IVPB STA (22:28)
[2021-10-22] MEDS ORDERED: SODIUM CHLORIDE 0.9% 1,000 ML IV STA ×2 (22:28)
[2021-10-22] MEDS ORDERED: LORazepam 2 MG/ML INJ IV PRN ×2 (22:29)
[2021-10-22] MEDS ORDERED: THIAMINE 100 MG/ML 2 ML VIAL IM STA (22:29)
--- NOTE | 2021-10-22 22:48 | XR ---
EXAMINATION TYPE: XR chest 1V DATE OF EXAM: 10/22/2021 COMPARISON: 10/10/2021 HISTORY: Fall. Pain TECHNIQUE: Single view FINDINGS: Heart and mediastinum are normal. Lungs are clear. Diaphragm is normal. Bony thorax appears normal. IMPRESSION: Normal chest. No change.
--- NOTE | 2021-10-22 22:49 | XR ---
EXAMINATION TYPE: XR pelvis AP view DATE OF EXAM: 10/22/2021 COMPARISON: 07/27/2021 HISTORY: Fall. Pain TECHNIQUE: FINDINGS: Pelvic ring is intact. Proximal femurs and hip joints are intact. Sacroiliac joints appear normal. IMPRESSION: Negative pelvis x-ray exam. No fracture. No change.
--- NOTE | 2021-10-22 23:15 | CT ---
EXAMINATION TYPE: CT brain nikhil wo con DATE OF EXAM: 10/22/2021 COMPARISON: 08/03/2021 HISTORY: fall while drinking @ bar landing on back CT DLP: 1360 mGycm Automated exposure control for dose reduction was used. Images of the brain and cervical spine obtained without contrast. There is mild cerebral cortical atrophy. There is no mass effect or midline shift. There is no sign o f intracranial hemorrhage. The calvarium is intact. Skull base is intact. There is normal aeration of the mastoid sinuses. The cervical vertebra have normal alignment. There is hypertrophic anterior bridging osteophyte forma tion in the mid and lower cervical spine. Facet joints are intact. No compression fracture. IMPRESSION: Cerebral atrophy. No acute intracranial abnormality. No change. Cervical hypertrophic degenerative disc changes. No fracture. No change.
--- NOTE | 2021-10-22 23:17 | XR ---
EXAMINATION TYPE: XR lumbar spine 2 or 3V DATE OF EXAM: 10/22/2021 COMPARISON: NONE HISTORY: Fall. Pain TECHNIQUE: 3 views FINDINGS: Lumbar vertebra have normal alignment. There is disc space narrowing at L5-S1. There is ant erior spurring in the mid and lower lumbar spine. No compression fracture. Sacroiliac joints are inta ct. IMPRESSION: Degenerative hypertrophic mild changes. No fracture. L5-S1 disc space narrowing.
[2021-10-22 23:54] LABS: Basophils # (A) 0.1 k/uL (0-0.2); Basophils % (A) 1 %; Eosinophils % (A) 0 %; HCT 42.2 % (39.0-53.0); Lymphocytes # (A) 2.3 k/uL (1.0-4.8); Lymphocytes % (A) 34 %; MCHC 30.8 g/dL (31.0-37.0); MCV 94.2 fL (80.0-100.0); Mean Platelet Volume 7.4; Monocytes # (A) 0.3 k/uL (0-1.0); Monocytes % (A) 5 %; Neutrophils # (A) 3.9 k/uL (1.3-7.7); Neutrophils % (A) 58 %; Platelet Count 242 k/uL (150-450); RBC 4.48 m/uL (4.30-5.90); WBC 6.8 k/uL (3.8-10.6)
[2021-10-22 23:55] LABS: ALT 100 U/L (4-49); AST 147 U/L (17-59); African American GFR (CKD) >90 (>60 ml/min/1.73 sqM); Albumin 4.7 g/dL (3.5-5.0); Alkaline Phosphatase 45 U/L (38-126); Anion Gap 11 mmol/L; Blood Urea Nitrogen 6 mg/dL (9-20); Calcium 9.2 mg/dL (8.4-10.2); Carbon Dioxide 27 mmol/L (22-30); Chloride 98 mmol/L (98-107); Glucose 90 mg/dL (74-99); Lipase 99 U/L (23-300); Magnesium 1.3 mg/dL (1.6-2.3); Non-African American GFR(CKD) >90 (>60 ml/min/1.73 sqM); Phosphorus 4.4 mg/dL (2.5-4.5); Sodium 136 mmol/L (137-145); Total Bilirubin 1.9 mg/dL (0.2-1.3); Total Protein 7.6 g/dL (6.3-8.2)
[2021-10-23] MEDS ORDERED: THIAMINE 200 MG in SODIUM CHLORIDE 0.9% 100 ML IVPB SCH ×2
[2021-10-23 00:01] LABS: Alcohol 225 mg/dL
[2021-10-23] MEDS ORDERED: ONDANSETRON 4 MG/2 ML VIAL IVP PRN (00:01)
[2021-10-23] MEDS ORDERED: NALOXONE 0.4 MG/ML 1 ML VIAL IV PRN (00:01)
[2021-10-23] MEDS ORDERED: PROCHLORPERAZINE INJ 10 MG/2 ML VIAL IVP STA (00:01)
[2021-10-23] MEDS ORDERED: KETOROLAC 15 MG/ML 1 ML VIAL IVP STA (00:01)
[2021-10-23] MEDS ORDERED: ACETAMINOPHEN TAB 500 MG TAB PO STA (00:01)
[2021-10-23] MEDS ORDERED: DIAZEPAM 5 MG/ML 2 ML INJ IVP STA (00:02)
[2021-10-23 00:06] LABS: Potassium 4.4 mmol/L (3.5-5.1)
[2021-10-23] MEDS: LORazepam 2 MG/ML INJ IV PRN ×5 (01:26→21:56)
[2021-10-23] MEDS: MULTIVITAMINS, THERA 1 EACH TAB PO SCH ×2 (02:03→08:28)
[2021-10-23] MEDS: DEXTROSE 5%-0.45% NACL 1,000 ML IV SCH ×3 (02:08→17:08)
[2021-10-23] MEDS: DIAZEPAM 5 MG/ML 2 ML INJ IVP SCH ×2 (02:10→06:13)
[2021-10-23] MEDS: THIAMINE 100 MG TAB PO SCH ×2 (06:13→17:08)
[2021-10-23] MEDS ORDERED: MAGNESIUM OXIDE 400 MG TAB PO STA (06:41)
[2021-10-23] MEDS: MAGNESIUM OXIDE 400 MG TAB PO SCH ×2 (08:28→19:57)
[2021-10-23] MEDS: PANTOPRAZOLE 40 MG/10 ML VIAL IV SCH (08:28)
[2021-10-23] MEDS: MAGNESIUM SULFATE-D5W PMX 1 GM in DEXTROSE/WATER 1 100ML.BAG IVPB SCH ×2 (08:28→10:52)
[2021-10-23] MEDS ORDERED: Magnesium Replacement Protocol 1 EACH MISC MISCELLANE PRN (11:09)
[2021-10-23] MEDS ORDERED: Potassium Replacement Protocol 1 EACH MISC MISCELLANE PRN (11:09)
--- NOTE | 2021-10-23 11:12 | P.HPIM ---
History of Present Illness This is a pleasant 46 years old male with known history of alcoholic abuse, withdrawal with several admissions secondary to his alcohol problems. Also with evidence of alcoholic hepatitis, hypertension and history of alcohol withdrawal seizure and osteoarthritis. Patient was discharged yesterday with plan for him to go to a core rehab on Thursday. He went home and started drinking again and smokes cigarettes, he felt lightheadedness and fell on his back of his head as he states. Currently he is fully awake and oriented, he denies any headache or dizziness. No numbness or weakness. No change in urine or bowel habits. No chest pain or dyspnea. No vomiting. No fever. Hemodynamically stable and afebrile. Labs reviewed, CBC and BMP is unremarkable. Magnesium low at 1.3 which is been replaced. Bilirubin stable at 1.9, liver enzymes slightly elevated with AST 147 and ALT 100. Alcohol level was elevated on admission to . Lumbar spine x-ray showed degenerative hypertrophic changes. CT of the head and neck: No acute process. Pelvic x-ray: No fracture Chest x-ray: No acute process. Patient given thiamine and normal saline. A started on CIWA protocol. Also had received Valium 5 mg and Protonix. Past Medical History Past Medical History: GERD/Reflux, GI Bleed, Hypertension, Liver Disease, Osteoarthritis (OA), Pneumonia, Seizure Disorder, Sleep Apnea/CPAP/BIPAP, Vascular Disorder Additional Past Medical History / Comment(s): Pt recently admitted to [facility] on 07/26/21 with alcohol intoxication/abuse/fall/marijuana abuse. Other hx: Occasional bilateral pedal edema if stands long, arthritis possibly in back/ribs, MILIND without device, ETOH abuse, alcoholic seizures/blackouts/fainting 2016, alcoholic hepatitis, alcoholic gastritis, upper GI bleed, hypomagnesemia, spinal stenosis/herniated disc with surgery, bilateral varicose veins, hemorrhoids History of Any Multi-Drug Resistant Organisms: None Reported Past Surgical History: Appendectomy, Back Surgery, Tonsillectomy Additional Past Surgical History / Comment(s): bilateral discectomy, discectomy L5-S1, EGD Past Anesthesia/Blood Transfusion Reactions: Motion Sickness Past Psychological History: Anxiety, Depression Smoking Status: Current every day smoker Past Alcohol Use History: Abuse, Heavy Past Drug Use History: Marijuana - Past Family History Father Family Medical History: Cancer, Dementia, Neurologic Disorder Additional Family Medical History / Comment(s): melanoma, parkinsons, schizophrenic Mother Family Medical History: Hypertension, Musculoskeletal Disorder, Neurologic Disorder, Osteoarthritis (OA) Additional Family Medical History / Comment(s): Mother of motor neuron disease at the age of 78yrs. Medications and Allergies Home Medications Medication Instructions Recorded Confirmed Type Fluticasone Nasal [place] [Flonase 2 spr EA NOSTRIL BID 10/11/19 10/22/21 History Nasal [place]] traZODone HCL [Desyrel] 100 mg PO HS PRN 05/14/20 10/22/21 History Celecoxib [CeleBREX] 200 mg PO DAILY 07/06/21 10/22/21 History Gabapentin [Neurontin] 600 mg PO TID 07/06/21 10/22/21 History Magnesium Oxide [Mag-Ox] 400 mg PO TID 30 Days #90 tab 08/06/21 10/22/21 Rx Cholecalciferol [Vitamin D3 (25 25 mcg PO DAILY 10/02/21 10/22/21 History Mcg = 1000 Iu)] Nicotine 14Mg/24Hr Patch [Habitrol] 1 patch TRANSDERM DAILY PRN 10/02/21 10/22/21 History Acetaminophen Tab [Tylenol] 650 mg PO Q6HR PRN tab 10/15/21 10/22/21 Rx Ondansetron [Zofran] 4 mg PO Q8HR PRN 3 Days #12 tab 10/22/21 10/22/21 Rx Pantoprazole Sodium [Protonix] 40 mg PO DAILY 7 Days #7 tab 10/22/21 10/22/21 Rx Thiamine [Vitamin B-1] 100 mg PO BID-W/MEALS #30 tab 10/22/21 10/22/21 Rx Allergies Allergy/AdvReac Type Severity Reaction Status Date / Time Cephalosporins Allergy Severe Anaphylaxis Verified 10/22/21 23:16 diphenhydramine HCl Allergy Severe Anaphylaxis Verified 10/22/21 23:16 [From Benadryl] divalproex sodium Allergy Severe Anaphylaxis Verified 10/22/21 23:16 [From Depakote] ceftriaxone [From Rocephin] Allergy Anaphylaxis Verified 10/22/21 23:16 cephalexin [From Keflex] Allergy Anaphylaxis Verified 10/22/21 23:16 droperidol Allergy Anaphylaxis Verified 10/22/21 23:16 lisinopril Allergy Anaphylaxis Verified 10/22/21 23:16 Physical Exam Vitals: Vital Signs Temp Pulse Resp BP Pulse Ox 10/23/21 04:44 100 10/23/21 04:00 80 18 110/70 99 10/23/21 01:31 68 16 137/75 100 10/22/21 23:13 69 18 139/68 100 10/22/21 22:09 98.1 F 74 16 152/84 97 Intake and Output 10/22/21 10/22/21 10/23/21 14:59 22:59 06:59 Other: Weight 108.862 kg GENERAL: The patient is alert and oriented x3, not in any acute distress. Well developed, well nourished. HEENT: Pupils are round and equally reacting to light. EOMI. No scleral icterus. No conjunctival pallor. Normocephalic, atraumatic. No pharyngeal erythema. No thyromegaly. CARDIOVASCULAR: S1 and S2 present. No murmurs, rubs, or gallops. PULMONARY: Chest is clear to auscultation, no wheezing or crackles. ABDOMEN: Soft, nontender, nondistended, normoactive bowel sounds. No palpable organomegaly. MUSCULOSKELETAL: No joint swelling or deformity. EXTREMITIES: No cyanosis, clubbing, or pedal edema. NEUROLOGICAL: Gross neurological examination did not reveal any focal deficits. SKIN: No rashes. no petechiae. Results CBC & Chem 7: 10/22/21 23:20 10/22/21 23:20 Labs: Abnormal Lab Results - Last 24 Hours (Table) 10/22/21 10/22/21 Range/Units 23:20 23:20 MCHC 30.8 L (31.0-37.0) g/dL Sodium 136 L (137-145) mmol/L BUN 6 L (9-20) mg/dL Creatinine 0.64 L (0.66-1.25) mg/dL Magnesium 1.3 L (1.6-2.3) mg/dL Total Bilirubin 1.9 H (0.2-1.3) mg/dL AST 147 H (17-59) U/L ALT 100 H (4-49) U/L Serum Alcohol 225 H* mg/dL Assessment and Plan Assessment: Fall with reports headache trauma Alcohol abuse Alcohol withdrawal Alcoholic liver disease and hepatitis Hypertension History of seizure, related to alcohol abuse History of osteoarthritis Plan: This is a pleasant 46 years old male who presents with alcohol withdrawal Continue with [facility] protocol with thiamine neuro check for 24 hours Patient encouraged to quit drinking and he states he will not go back to drinking. Labs and medication were reviewed.. Continue same treatment. Continue with symptomatic treatment. Resume home medication. Monitor lytes and vitals. DVT and GI prophylaxis. Further recommendations as per clinical course of the patient DVT prophylaxis: Subcutaneous heparin GI Prophylaxis: Pepcid Long-term prognosis is guarded. Possible discharge tomorrow so he can go to his alcohol rehab at [place]
[2021-10-24] MEDS: THIAMINE 100 MG TAB PO SCH (08:17)
[2021-10-24] MEDS: PANTOPRAZOLE 40 MG/10 ML VIAL IV SCH (08:17)
[2021-10-24] MEDS: MAGNESIUM OXIDE 400 MG TAB PO SCH (08:17)
[2021-10-24] MEDS: MULTIVITAMINS, THERA 1 EACH TAB PO SCH (08:17)
[2021-10-24] MEDS: LORazepam 2 MG/ML INJ IV PRN ×2 (08:18→12:38)
[2021-10-24 10:02] LABS: Albumin/Globulin Ratio 1.8; Bilirubin,Unconjugated 1.3 mg/dL (0.0-1.1); Globulin 2.2 g/dL; Magnesium 1.7 mg/dL (1.6-2.3); Phosphorus 3.3 mg/dL (2.5-4.5); Potassium 4.6 mmol/L (3.5-5.1); Total Bilirubin 1.3 mg/dL (0.2-1.3); Total Protein 6.2 g/dL (6.3-8.2)
[2021-10-24] MEDS ORDERED: MAGNESIUM SULFATE-D5W PMX 1 GM in DEXTROSE/WATER 1 100ML.BAG IVPB ONE (11:15)
[2021-10-24 14:37] VITALS: BP 137/90; PULSE 90; RESP 18; TEMP 98.6
--- NOTE | 2021-10-24 20:08 | P.DS ---
Providers Date of admission: 10/23/21 00:01 Attending physician: Aida Arias Primary care physician: Veena Bynum Hospital Course: Diagnoses: Fall with reports headache trauma , patient remained medically stable Alcohol abuse Alcohol withdrawal Alcoholic liver disease and hepatitis Hypertension History of seizure, related to alcohol abuse History of osteoarthritis Hospital course: This is a pleasant 46 years old male with known history of alcoholic abuse, w ithdrawal with several admissions secondary to his alcohol problems. Also with evidence of alcoholic hepatitis, hypertension and history of alcohol withdrawal seizure and osteoarthritis. Patient was discharged yesterday with plan for him to go to a core rehab on Thursday. He went home and started drinking again and smokes cigarettes, he felt lightheadedness and fell on his back of his head as he states. Currently he is fully awake and oriented, he denies any headache or dizziness. No numbness or weakness. No change in urine or bowel habits. No chest pain or dyspnea. No vomiting. No fever. Hemodynamically stable and afebrile. Imaging with no significant abnormality. Patient treated with CIWA protocol and thiamine, and neuro check, Patient remained medically stable Today he is fully awake and oriented, in the morning he has no withdrawal symptoms, gait was normal. He denies chest pain or dyspnea. No abdominal pain. No change in urine or bowel habits. No fever. Patient states he is back at baseline. Patient wants to be discharged home today because he wants to follow up with his alcohol rehab in [address] tomorrow. Patient with multiple admissions, no complaints with recommendation, Patient has a risk for relapse, high risk for falling, high-risk for bleeding, risk and benefits explained for the patient extensively he verbalized understanding and acceptance. Problems and management plan were discussed with the patient and he verbalized understanding and acceptance Patient was found stable and can be discharged home in guarded prognosis however he needs follow-up as an outpatient. Patient was instructed to follow up with PCP within one week and patient agrees Patient instructed to follow up with his alcohol rehab tomorrow as above Physical exam Gen: patient is a AAOx3, no distress CVS: S1-S2, RRR, no murmur Lungs: B/L CTA, no wheezing Abdomen: soft, no distention, no tenderness, positive bowel sounds Extremity: no leg edema or induration Time spent more than 35 minutes Patient Condition at Discharge: Fair Plan - Discharge Summary New Discharge Prescriptions: Continue Fluticasone Nasal [place] [Flonase Nasal [place]] 2 spr EA NOSTRIL BID traZODone HCL [Desyrel] 100 mg PO HS PRN PRN Reason: Insomnia Gabapentin [Neurontin] 600 mg PO TID Celecoxib [CeleBREX] 200 mg PO DAILY Magnesium Oxide [Mag-Ox] 400 mg PO TID 30 Days #90 tab Nicotine 14Mg/24Hr Patch [Habitrol] 1 patch TRANSDERM DAILY PRN PRN Reason: Nicotine Cravings Ondansetron [Zofran] 4 mg PO Q8HR PRN 3 Days #12 tab PRN Reason: Nausea And Vomiting Cholecalciferol [Vitamin D3 (25 Mcg = 1000 Iu)] 25 mcg PO DAILY Acetaminophen Tab [Tylenol] 650 mg PO Q6HR PRN tab PRN Reason: Fever And/ Or Pain Pantoprazole Sodium [Protonix] 40 mg PO DAILY 7 Days #7 tab Thiamine [Vitamin B-1] 100 mg PO BID-W/MEALS #30 tab Discharge Medication List Fluticasone Nasal [place] [Flonase Nasal [place]] 2 spr EA NOSTRIL BID 10/11/19 [History] traZODone HCL [Desyrel] 100 mg PO HS PRN 05/14/20 [History] Celecoxib [CeleBREX] 200 mg PO DAILY 07/06/21 [History] Gabapentin [Neurontin] 600 mg PO TID 07/06/21 [History] Magnesium Oxide [Mag-Ox] 400 mg PO TID 30 Days #90 tab 08/06/21 [Rx] Cholecalciferol [Vitamin D3 (25 Mcg = 1000 Iu)] 25 mcg PO DAILY 10/02/21 [History] Nicotine 14Mg/24Hr Patch [Habitrol] 1 patch TRANSDERM DAILY PRN 10/02/21 [History] Acetaminophen Tab [Tylenol] 650 mg PO Q6HR PRN tab 10/15/21 [Rx] Ondansetron [Zofran] 4 mg PO Q8HR PRN 3 Days #12 tab 10/22/21 [Rx] Pantoprazole Sodium [Protonix] 40 mg PO DAILY 7 Days #7 tab 10/22/21 [Rx] Thiamine [Vitamin B-1] 100 mg PO BID-W/MEALS #30 tab 10/22/21 [Rx] Follow up Appointment(s)/Referral(s): Veena Bynum DO [Primary Care Provider] - 1-2 days (Client to follow up with PCP after rehab complete. ) Patient Instructions/Handouts: Alcohol Withdrawal (DC) Activity/Diet/Wound Care/Special Instructions: Heart healthy diet Activity is restricted till you see your doctor Please follow up with [facility] for alcohol rehab, on your appointment date this thursday10/25/2021, as you informed the medical team Discharge Disposition: HOME SELF-CARE
== END 2021-10-24 15:08 | disposition home or self-care (01) ==
LOC: EC 21:57 → INTOOBSV 10-23 00:01 → 5NMEDONC 10-23 00:01 → 4SSUR 10-23 03:53
PROVIDERS: ADMIT Hospitalist; ATTEND Hospitalist
DX: F10.239 Alcohol dependence with withdrawal, unspecified (principal); F10.229 Alcohol dependence with intoxication, unspecified; Y90.8 Blood alcohol level of 240 mg/100 ml or more; W18.30XA Fall on same level, unspecified, initial encounter; E86.0 Dehydration; F17.210 Nicotine dependence, cigarettes, uncomplicated; I10 Essential (primary) hypertension; K76.9 Liver disease, unspecified; F32.A Depression, unspecified; F41.9 Anxiety disorder, unspecified; M19.90 Unspecified osteoarthritis, unspecified site; G40.909 Epilepsy, unspecified, not intractable, without status epilepticus; G47.30 Sleep apnea, unspecified; Z79.899 Other long term (current) drug therapy; Z79.1 Long term (current) use of non-steroidal anti-inflammatories (NSAID); Z88.8 Allergy status to other drugs, medicaments and biological substances; Z88.1 Allergy status to other antibiotic agents; K21.9 Gastro-esophageal reflux disease without esophagitis; Z91.81 History of falling; Z98.1 Arthrodesis status; Z71.41 Alcohol abuse counseling and surveillance of alcoholic; Z90.49 Acquired absence of other specified parts of digestive tract; Z87.01 Personal history of pneumonia (recurrent); Z80.8 Family history of malignant neoplasm of other organs or systems; Z82.0 Family history of epilepsy and other diseases of the nervous system; Z82.49 Family history of ischemic heart disease and other diseases of the circulatory system; Z81.8 Family history of other mental and behavioral disorders
CPT/HCPCS: 99285; 96376 ×2; 96366; 96375 ×3; 96365; 96367; 96372; 36415; 80053; 80076; 83690; 83735 ×2; 84100 ×2; 84132; 85025; 72100; 72170; 71045; 72125; 70450; G0378 ×2; G0480; J2060 ×3; J0780; J3411; J3360; J2405; J3475 ×2; J1885; C9113 ×2; 80320

== ENCOUNTER 2021-10-28 07:36 | Emergency (ER) | payer OTHER ==
[2021-10-28 07:46] VITALS: RESP 18
[2021-10-28] MEDS ORDERED: LORazepam 2 MG/ML INJ IV STA (08:14)
--- NOTE | 2021-10-28 08:17 | ED ---
General Adult HPI - General Chief complaint: Fall Stated complaint: Fall Time Seen by Provider: 10/28/21 07:41 Source: EMS, RN notes reviewed Mode of arrival: EMS Limitations: no limitations - History of Present Illness Initial comments: 46-year-old male with a past medical history of hypertension, chronic alcohol abuse presents to the emergency room for a chief complaint of fall. Patient states that he was drinking vodka yesterday. Last night he lost his balance and fell backwards hitting his head. States he has a headache and his neck hurts. Patient denies any weakness in the arms. Patient states he lost consciousness when he hit his head.Patient has no other complaints at this time including shortness of breath, chest pain, abdominal pain, nausea or vomiting, or visual changes. - Related Data Home Medications Medication Instructions Recorded Confirmed Fluticasone Nasal [place] [Flonase 2 spr EA NOSTRIL BID 10/11/19 10/22/21 Nasal [place]] traZODone HCL [Desyrel] 100 mg PO HS PRN 05/14/20 10/22/21 Celecoxib [CeleBREX] 200 mg PO DAILY 07/06/21 10/22/21 Gabapentin [Neurontin] 600 mg PO TID 07/06/21 10/22/21 Cholecalciferol [Vitamin D3 (25 25 mcg PO DAILY 10/02/21 10/22/21 Mcg = 1000 Iu)] Nicotine 14Mg/24Hr Patch [Habitrol] 1 patch TRANSDERM DAILY PRN 10/02/21 10/22/21 Previous Rx's Medication Instructions Recorded Magnesium Oxide [Mag-Ox] 400 mg PO TID 30 Days #90 tab 08/06/21 Acetaminophen Tab [Tylenol] 650 mg PO Q6HR PRN tab 10/15/21 Ondansetron [Zofran] 4 mg PO Q8HR PRN 3 Days #12 tab 10/22/21 Pantoprazole Sodium [Protonix] 40 mg PO DAILY 7 Days #7 tab 10/22/21 Thiamine [Vitamin B-1] 100 mg PO BID-W/MEALS #30 tab 10/22/21 Allergies Allergy/AdvReac Type Severity Reaction Status Date / Time Cephalosporins Allergy Severe Anaphylaxis Verified 10/28/21 07:47 diphenhydramine HCl Allergy Severe Anaphylaxis Verified 10/28/21 07:47 [From Benadryl] divalproex sodium Allergy Severe Anaphylaxis Verified 10/28/21 07:47 [From Depakote] ceftriaxone [From Rocephin] Allergy Anaphylaxis Verified 10/28/21 07:47 cephalexin [From Keflex] Allergy Anaphylaxis Verified 10/28/21 07:47 droperidol Allergy Anaphylaxis Verified 10/28/21 07:47 lisinopril Allergy Anaphylaxis Verified 10/28/21 07:47 Review of Systems ROS Statement: Those systems with pertinent positive or pertinent negative responses have been documented in the HPI. ROS Other: All systems not noted in ROS Statement are negative. Past Medical History Past Medical History: GERD/Reflux, GI Bleed, Hypertension, Liver Disease, Osteoarthritis (OA), Pneumonia, Seizure Disorder, Sleep Apnea/CPAP/BIPAP, Vascular Disorder Additional Past Medical History / Comment(s): Pt recently admitted to [facility] on 07/26/21 with alcohol intoxication/abuse/fall/marijuana abuse. Other hx: Occasional bilateral pedal edema if stands long, arthritis possibly in back/ribs, MILIND without device, ETOH abuse, alcoholic seizures/blackouts/fainting 2017, alcoholic hepatitis, alcoholic gastritis, upper GI bleed, hypomagnesemia, spinal stenosis/herniated disc with surgery, bilateral varicose veins, hem orrhoids History of Any Multi-Drug Resistant Organisms: None Reported Past Surgical History: Appendectomy, Back Surgery, Tonsillectomy Additional Past Surgical History / Comment(s): bilateral discectomy, discectomy L5-S1, EGD Past Anesthesia/Blood Transfusion Reactions: Motion Sickness Past Psychological History: Anxiety, Depression Smoking Status: Current every day smoker Past Alcohol Use History: Abuse, Heavy Past Drug Use History: Marijuana - Past Family History Father Family Medical History: Cancer, Dementia, Neurologic Disorder Additional Family Medical History / Comment(s): melanoma, parkinsons, schizophrenic Mother Family Medical History: Hypertension, Musculoskeletal Disorder, Neurologic Disorder, Osteoarthritis (OA) Additional Family Medical History / Comment(s): Mother of motor neuron disease at the age of 78yrs. General Exam Limitations: no limitations General appearance: alert, in no apparent distress Head exam: Present: atraumatic Eye exam: Present: normal appearance, PERRL, EOMI. Absent: scleral icterus, conjunctival injection ENT exam: Present: normal exam, mucous membranes moist Neck exam: Present: normal inspection, full ROM, other (c-collar in place). Absent: tenderness Respiratory exam: Present: normal lung sounds bilaterally. Absent: respiratory distress, wheezes Cardiovascular Exam: Present: regular rate, normal rhythm, normal heart sounds GI/Abdominal exam: Present: soft, normal bowel sounds. Absent: distended, tenderness Extremities exam: Present: other (Strength 5 out of 5 in upper extremity is bilaterally, sensation intact.) Neurological exam: Present: alert, oriented X3, other (GCS 15) Course Vital Signs 10/28/21 07:38 Temperature 98.1 F Pulse Rate 86 Respiratory 18 Rate Blood Pressure 139/90 O2 Sat by Pulse 98 Oximetry Medical Decision Making - Medical Decision Making CT brain shows no acute intracranial hemorrhage. CT cervical spine shows no acute fracture or dislocation. Patient is clinically sober. C-collar cleared. patient denying any pain. He does want to be admitted however discussed with him that at this time there is no medical reason to admit him. Patient can be discharged home and will follow up with primary care. Disposition Clinical Impression: Fall, Head injury Disposition: HOME SELF-CARE Condition: Good Instructions (If sedation given, give patient instructions): Head Injury (ED) Additional Instructions: Follow up with primary care. return to the ER for any worsening symptoms. Is patient prescribed a controlled substance at d/c from ED?: No Referrals: Veena Bynum DO [Primary Care Provider] - 1-2 days Time of Disposition: 11:19
[2021-10-28] MEDS ORDERED: LORazepam 2 MG/ML INJ IM STA (08:57)
--- NOTE | 2021-10-28 09:27 | CT ---
EXAMINATION TYPE: CT brain johnine wo con DATE OF EXAM: 10/28/2021 COMPARISON: Prior trauma CT 6 days ago. HISTORY: Fall injury with headache and neck pain Automated Exposure Control for Dose Reduction was Utilized. TECHNIQUE: CT scan of the head and cervical spine are performed without contrast. FINDINGS: There is no acute intracranial hemorrhage or midline shift identified. Mild ventricular a nd sulcal prominence redemonstrated. Faint right-sided basal ganglia calcifications redemonstrated. The globes are intact and the visualized sinuses are clear. The calvarium is intact. Cervical spine is visualized in its entirety from C1 through upper thoracic levels and demonstrates s atisfactory alignment without evidence of acute fracture or dislocation. Prevertebral soft tissue ap pears within normal limits. The C1-C2 articulation is within normal limits on the coronal images. V ertebral body heights are maintained. Mild multilevel disc space narrowing with moderate multilevel a nterior and posterior spurring are redemonstrated. Posterior spur disc complexes efface the anterior thecal sac at C4-C5 through C6-C7 levels on sagittal and axial images. There is some right-sided neur al foraminal narrowing at C4-C5 level and bilateral C6-C7 levels due to marginal spurring. Thyroid gl and appears within normal limits. Lung apices show no pneumothorax. IMPRESSION: 1. There is no acute fracture or dislocation evident in the cervical spine. 2. No acute intracranial hemorrhage or midline shift is seen. No significant change from recent CT.
[2021-10-28 18:04] VITALS: BP 132/88; PULSE 87; TEMP 98.3
== END 2021-10-28 12:40 | disposition home or self-care (01) ==
LOC: EC 07:36
DX: S09.90XA Unspecified injury of head, initial encounter (principal); F17.200 Nicotine dependence, unspecified, uncomplicated; I10 Essential (primary) hypertension; M19.90 Unspecified osteoarthritis, unspecified site; Z88.8 Allergy status to other drugs, medicaments and biological substances; Z88.1 Allergy status to other antibiotic agents; Z79.899 Other long term (current) drug therapy; W19.XXXA Unspecified fall, initial encounter
CPT/HCPCS: 82075; 72125; 70450; 99284; 96372; J2060

== ENCOUNTER 2021-10-30 09:09 | Inpatient (IN) | payer OTHER ==
[2021-10-30] MEDS ORDERED: THIAMINE 100 MG/ML 2 ML VIAL IM STA (09:16)
[2021-10-30] MEDS ORDERED: LORazepam 2 MG/ML INJ IV PRN (09:16)
[2021-10-30 09:37] LABS: Basophils # (A) 0.1 k/uL (0-0.2); Basophils % (A) 1 %; Eosinophils % (A) 1 %; HCT 44.7 % (39.0-53.0); HGB 14.3 gm/dL (13.0-17.5); Lymphocytes # (A) 3.8 k/uL (1.0-4.8); Lymphocytes % (A) 62 %; MCHC 31.9 g/dL (31.0-37.0); Mean Platelet Volume 7.2; Monocytes # (A) 0.2 k/uL (0-1.0); Monocytes % (A) 4 %; Neutrophils # (A) 1.9 k/uL (1.3-7.7); Neutrophils % (A) 31 %; Platelet Count 206 k/uL (150-450); RBC 4.75 m/uL (4.30-5.90); RDW 13.7 % (11.5-15.5); WBC 6.2 k/uL (3.8-10.6)
--- NOTE | 2021-10-30 10:00 | ED ---
General Adult HPI - General Source: EMS Mode of arrival: EMS <Asif Veronica Lauren - Last Filed: 10/30/21 11:21> <Rico Zuluaga - Last Filed: 10/31/21 03:02> - General Chief complaint: Alcohol Stated complaint: ETOH Time Seen by Provider: 10/30/21 09:10 - History of Present Illness Initial comments: Dictation was produced using [employer] dictation software. please excuse any grammatical, word or spelling errors. Chief Complaint: Patient is a 46-year-old male presents emergency department for chief complaint alcohol withdrawals. History of Present Illness: Patient is a 38-year-old male well-known to emergency department for multiple visitations for alcoholism presents to the ER for chief complaint of alcohol withdrawals. Patient states he drinks half gallon of vodka on a daily basis. Patient states that this morning he woke up with symptoms of withdrawal including shaking, nausea and vomiting. He reports that his last intake of alcohol was yesterday evening. Patient was here in the emergency department 2 days ago after head injury. He was discharged at that time. She denies any intentions on quitting drinking. The ROS documented in this emergency department record has been reviewed and confirmed by me. Those systems with pertinent positive or negative responses have been documented in the HPI. All other systems are other negative and/or noncontributory. PHYSICAL EXAM: General Impression: Alert and oriented x3, not in acute distress, tremulous, nondiaphoretic HEENT: Normocephalic atraumatic, extra-ocular movements intact, pupils equal and reactive to light bilaterally, mucous membranes moist. Cardiovascular: Heart regular rate and rhythm Chest: Able to complete full sentences, no retractions, no tachypnea Abdomen: abdomen soft, non-tender, non-distended, no organomegaly Musculoskeletal: Pulses present and equal in all extremities, no peripheral edema Motor: no focal deficits noted Neurological: CN II-XII grossly intact, no focal motor or sensory deficits noted Skin: Intact with no visualized rashes Psych: Normal affect and mood ED course: 46-year-old male who is a well-known alcoholic family to emergency Department presents to the emergency Department chief complaint withdrawals. Vital signs upon arrival are within acceptable limits. Patient is seen resting comfortably. When I walk into the room he begins having tremors. Patient reevaluated at bedside 11:20 AM. He did report to me that he is feeling depressed. He told the nurse that he was feeling suicidal. Laboratory evaluation obtained. CBC metabolic panel is within acceptable limits. Alcohol level is 1625. At the bedside patient is clinically sober. Patient medically cleared for EPS evaluation. (Asif Veronica) - Related Data Home Medications Medication Instructions Recorded Confirmed Fluticasone Nasal [place] [Flonase 2 spr EA NOSTRIL BID 10/11/19 10/30/21 Nasal [place]] traZODone HCL [Desyrel] 100 mg PO HS PRN 05/14/20 10/30/21 Celecoxib [CeleBREX] 200 mg PO DAILY 07/06/21 10/30/21 Gabapentin [Neurontin] 600 mg PO TID 07/06/21 10/30/21 Cholecalciferol [Vitamin D3 (25 25 mcg PO DAILY 10/02/21 10/30/21 Mcg = 1000 Iu)] Nicotine 14Mg/24Hr Patch [Habitrol] 1 patch TRANSDERM DAILY PRN 10/02/21 Previous Rx's Medication Instructions Recorded Magnesium Oxide [Mag-Ox] 400 mg PO TID 30 Days #90 tab 08/06/21 Acetaminophen Tab [Tylenol] 650 mg PO Q6HR PRN tab 10/15/21 Ondansetron [Zofran] 4 mg PO Q8HR PRN 3 Days #12 tab 10/22/21 Pantoprazole Sodium [Protonix] 40 mg PO DAILY 7 Days #7 tab 10/22/21 Thiamine [Vitamin B-1] 100 mg PO BID-W/MEALS #30 tab 10/22/21 Allergies Allergy/AdvReac Type Severity Reaction Status Date / Time Cephalosporins Allergy Severe Anaphylaxis Verified 10/30/21 10:08 diphenhydramine HCl Allergy Severe Anaphylaxis Verified 10/30/21 10:08 [From Benadryl] divalproex sodium Allergy Severe Anaphylaxis Verified 10/30/21 10:08 [From Depakote] ceftriaxone [From Rocephin] Allergy Anaphylaxis Verified 10/30/21 10:08 cephalexin [From Keflex] Allergy Anaphylaxis Verified 10/30/21 10:08 droperidol Allergy Anaphylaxis Verified 10/30/21 10:08 lisinopril Allergy Anaphylaxis Verified 10/30/21 10:08 Review of Systems ROS Other: All systems not noted in ROS Statement are negative. <Asif Veronica - Last Filed: 10/30/21 11:21> ROS Other: All systems not noted in ROS Statement are negative. <Rico Zuluaga - Last Filed: 10/31/21 03:02> ROS Statement: Those systems with pertinent positive or pertinent negative responses have been documented in the HPI. Past Medical History Past Medical History: GERD/Reflux, GI Bleed, Hypertension, Liver Disease, Osteoarthritis (OA), Pneumonia, Seizure Disorder, Sleep Apnea/CPAP/BIPAP, Vascular Disorder Additional Past Medical History / Comment(s): Pt recently admitted to [facility] on 07/26/21 with alcohol intoxication/abuse/fall/marijuana abuse. Other hx: Occasional bilateral pedal edema if stands long, arthritis possibly in back/ ribs, MILIND without device, ETOH abuse, alcoholic seizures/blackouts/fainting 2017, alcoholic hepatitis, alcoholic gastritis, upper GI bleed, hypomagnesemia, spinal stenosis/herniated disc with surgery, bilateral varicose veins, hemorrhoids History of Any Multi-Drug Resistant Organisms: None Reported Past Surgical History: Appendectomy, Back Surgery, Tonsillectomy Additional Past Surgical History / Comment(s): bilateral discectomy, discectomy L5-S1, EGD Past Anesthesia/Blood Transfusion Reactions: Motion Sickness Past Psychological History: Anxiety, Depression Smoking Status: Current every day smoker Past Alcohol Use History: Abuse, Heavy Past Drug Use History: Marijuana - Past Family History Father Family Medical History: Cancer, Dementia, Neurologic Disorder Additional Family Medical History / Comment(s): melanoma, parkinsons, schizophrenic Mother Family Medical History: Hypertension, Musculoskeletal Disorder, Neurologic Disorder, Osteoarthritis (OA) Additional Family Medical History / Comment(s): Mother of motor neuron disease at the age of 78yrs. <Asif Veronica - Last Filed: 10/30/21 11:21> Course <Rico Zuluaga - Last Filed: 10/31/21 03:02> Vital Signs 10/30/21 10/30/21 10/30/21 09:11 10:19 13:45 Temperature 98.6 F Pulse Rate 104 H 92 96 Respiratory 18 18 18 Rate Blood Pressure 127/98 146/66 134/89 O2 Sat by Pulse 98 95 97 Oximetry 10/30/21 10/30/21 10/31/21 16:42 18:44 00:45 Temperature 98.8 F Pulse Rate 96 97 83 Respiratory 18 18 24 Rate Blood Pressure 142/99 143/96 146/89 O2 Sat by Pulse 98 97 97 Oximetry - Reevaluation(s) Reevaluation #1: 10/31/21 03:01 medical record is reviewed (Rico Zuluaga) Reevaluation #2: 10/31/21 03:01 and is seen and evaluated psychiatry continuing to show signs and symptoms of alcohol withdrawal (Rico Zuluaga) Reevaluation #3: 10/31/21 03:01 patient is seen regarding findings and questions are answered (Rico Zuluaga) - Consultations Consultation #1: spoke shahram bragg for admission (Rico Zuluaga) Medical Decision Making - Lab Data Result diagrams: 10/30/21 09:29 10/30/21 10:11 <Asif Veronica - Last Filed: 10/30/21 11:21> - Lab Data Result diagrams: 10/30/21 09:29 10/30/21 10:11 <Rico Zuluaga - Last Filed: 10/31/21 03:02> - Medical Decision Making 46 male to the ER for evaluation patient resents today for evaluation regarding alcohol alcohol withdrawal depression psychiatric illness. Patient likely will have impending alcohol withdrawal and DTs 71 need to be admitted for alcohol or trauma monitoring (Rico Zuluaga) - Lab Data Lab Results 10/30/21 10/30/21 Range/Units 09:29 10:11 WBC 6.2 (3.8-10.6) k/uL RBC 4.75 (4.30-5.90) m/uL Hgb 14.3 (13.0-17.5) gm/dL Hct 44.7 (39.0-53.0) % MCV 94.0 (80.0-100.0) fL MCH 30.0 (25.0-35.0) pg MCHC 31.9 (31.0-37.0) g/dL RDW 13.7 (11.5-15.5) % Plt Count 206 (150-450) k/uL MPV 7.2 Neutrophils % 31 % Lymphocytes % 62 % Monocytes % 4 % Eosinophils % 1 % Basophils % 1 % Neutrophils # 1.9 (1.3-7.7) k/uL Lymphocytes # 3.8 (1.0-4.8) k/uL Monocytes # 0.2 (0-1.0) k/uL Eosinophils # 0.0 (0-0.7) k/uL Basophils # 0.1 (0-0.2) k/uL Manual Slide Review Performed Sodium 143 (137-145) mmol/L Potassium 4.6 (3.5-5.1) mmol/L Chloride 100 (98-107) mmol/L Carbon Dioxide 31 H (22-30) mmol/L Anion Gap 12 mmol/L BUN 13 (9-20) mg/dL Creatinine 0.83 (0.66-1.25) mg/dL Est GFR (CKD-EPI)AfAm >90 (>60 ml/min/1.73 sqM) Est GFR (CKD-EPI)NonAf >90 (>60 ml/min/1.73 sqM) Glucose 85 (74-99) mg/dL Calcium 8.6 (8.4-10.2) mg/dL Magnesium 1.4 L (1.6-2.3) mg/dL Total Bilirubin 1.1 (0.2-1.3) mg/dL AST 109 H (17-59) U/L ALT 54 H (4-49) U/L Alkaline Phosphatase 62 (38-126) U/L Total Protein 7.4 (6.3-8.2) g/dL Albumin 4.7 (3.5-5.0) g/dL Lipase 129 (23-300) U/L Serum Alcohol 165 mg/dL Disposition <Asif Veronica - Last Filed: 10/30/21 11:21> Is patient prescribed a controlled substance at d/c from ED?: No <Rico Zuluaga - Last Filed: 10/31/21 03:02> Clinical Impression: Alcoholic liver disease, Alcohol abuse with withdrawal, Alcohol withdrawal delirium, acute, hyperactive, Alcohol intoxication, Alcohol withdrawal, Depression Disposition: ADMITTED IP TO THIS HOSP Condition: Fair Referrals: Veena Bynum DO [Primary Care Provider] - 1-2 days
[2021-10-30] MEDS: LORazepam 2 MG/ML INJ IV PRN ×6 (10:16→22:09)
[2021-10-30 10:38] LABS: ALT 54 U/L (4-49); AST 109 U/L (17-59); African American GFR (CKD) >90 (>60 ml/min/1.73 sqM); Albumin 4.7 g/dL (3.5-5.0); Alkaline Phosphatase 62 U/L (38-126); Anion Gap 12 mmol/L; Blood Urea Nitrogen 13 mg/dL (9-20); Calcium 8.6 mg/dL (8.4-10.2); Carbon Dioxide 31 mmol/L (22-30); Chloride 100 mmol/L (98-107); Glucose 85 mg/dL (74-99); Lipase 129 U/L (23-300); Magnesium 1.4 mg/dL (1.6-2.3); Non-African American GFR(CKD) >90 (>60 ml/min/1.73 sqM); Potassium 4.6 mmol/L (3.5-5.1); Sodium 143 mmol/L (137-145); Total Bilirubin 1.1 mg/dL (0.2-1.3); Total Protein 7.4 g/dL (6.3-8.2)
[2021-10-30 10:43] LABS: Alcohol 165 mg/dL
[2021-10-30] MEDS: THIAMINE 100 MG TAB PO SCH (16:41)
[2021-10-31] MEDS: LORazepam 2 MG/ML INJ IV PRN ×4 (00:45→08:45)
[2021-10-31] MEDS ORDERED: NALOXONE 0.4 MG/ML 1 ML VIAL IV PRN (02:59)
[2021-10-31] MEDS ORDERED: ONDANSETRON 4 MG/2 ML VIAL IVP PRN (02:59)
[2021-10-31] MEDS: DEXTROSE 5%-0.45% NACL 1,000 ML IV SCH ×3 (04:38→20:38)
[2021-10-31] MEDS: THIAMINE 100 MG TAB PO SCH ×2 (08:45→18:04)
[2021-10-31] MEDS ORDERED: MULTIVITAMINS, THERA 1 EACH TAB PO SCH (09:00)
[2021-10-31] MEDS ORDERED: Magnesium Replacement Protocol 1 EACH MISC MISCELLANE PRN (09:11)
[2021-10-31] MEDS ORDERED: ONDANSETRON 4 MG TAB PO PRN (09:13)
[2021-10-31] MEDS ORDERED: ACETAMINOPHEN TAB 325 MG TAB PO PRN (09:13)
[2021-10-31] MEDS ORDERED: traZODone HCL 100 MG TAB PO PRN (09:13)
[2021-10-31] MEDS ORDERED: NICOTINE 14MG/24HR PATCH TRANSDERM PRN (09:13)
[2021-10-31] MEDS ORDERED: CHOLECALCIFEROL 25 MCG (1000 IU) TABLET PO SCH (09:15)
[2021-10-31] MEDS ORDERED: PANTOPRAZOLE 40 MG TABLET PO SCH (09:15)
[2021-10-31] MEDS: MAGNESIUM SULFATE-D5W PMX 1 GM in DEXTROSE/WATER 1 100ML.BAG IVPB SCH ×3 (11:02→13:54)
[2021-10-31] MEDS: MAGNESIUM OXIDE 400 MG TAB PO SCH ×3 (11:03→22:23)
[2021-10-31] MEDS: GABAPENTIN 300 MG CAP PO SCH ×3 (11:03→22:24)
[2021-10-31] MEDS: FLUTICASONE 50MCG/SPRAY NASAL 16GM EA NOSTRIL SCH ×2 (11:03→20:40)
[2021-10-31] MEDS ORDERED: LORazepam 1 MG TAB PO PRN (11:25)
--- NOTE | 2021-10-31 12:29 | P.HPIM ---
History of Present Illness H&P Date: 10/31/21 This is a 46-year-old male who was recently brought to the ER for acute alcohol withdrawal along with alcohol intoxication and was having feelings of depression. Patient has an extensive past medical history of gastroesophageal reflux disease, hypertension, liver disease, osteoarthritis, seizure disorder, sleep apnea, frequent falls with alcohol intoxication and abuse and has had multiple readmissions and hospitalizations for this. Patient has been to [facility] for alcohol multiple times and reports to contacting them and being unable to be admitted there until Thursday. Psychiatry also consulted for his depression. Patient continues to report feelings of depression although denies any suicidal ideation. Patient reports also having some diarrhea and will have Imodium added. Patient maintained on CIWA protocol and magnesium was also found to be 1.4 and will replace per protocol repeat labs. Apparently patient was evaluated by EPS in the ER although still showing signs of alcohol withdrawal and patient was admitted for magnesium replacement and CIWA protocol. Labs on admission show WBC of 6.2, hemoglobin 14.3, platelets 206, sodium 143, potassium 4.6, BUN 13, creatinine 0.83, calcium 8.6, magnesium 1.4, total bili 1.1, AST 109, ALT 54, lipase 129, serum alcohol was 165. Review Of Systems: Constitutional: No fever, no chills, no night sweats. No weight change. No weakness, fatigue or lethargy. No daytime sleepiness. EENT: No headache. No blurred vision or double vision, no loss of vision. No loss of Hearing, no ringing in the ears, no dizziness. No nasal drainage or congestion. No epistaxis. No sore throat. Lungs: No shortness of breath, cough, no sputum production. No wheezing. Cardiovascular: No chest pain, no lower extremity edema. No palpitations. No paroxysmal nocturnal dyspnea. No orthopnea. No lightheadedness or dizziness. No syncopal episodes. Abdominal: No abdominal pain. reports intermittent nausea, vomiting. Reports diarrhea. No constipation. No bloody or tarry stools.. No loss of appetite. Genitourinary: No dysuria, increased frequency, urgency. No urinary retention. Musculoskeletal: No myalgias. No muscle weakness, reports gait dysfunction, no frequent falls. No back pain. No neck pain. Integumentary: No wounds, no lesions. No rash or pruritus. No unusual bruising. No change in hair or nails. Neurologic: No aphasia. No facial droop. No change in mentation. No head injury. No headache. No paralysis. No paresthesia. Reports anxiety and withdrawals with tremors Psychiatric: Reports depression. Reports anxiety. Denies suicidal ideation. No mood swings. Endocrine: No abnormal blood sugars. No weight change. No excessive sweating or thirst. No cold intolerance. PHYSICAL EXAMINATION: GENERAL: The patient is alert and oriented x4, Well developed, well nourished. Tremors noted on exam HEENT: Pupils are round and equally reacting to light. EOMI. no scleral icterus. No conjunctival pallor. Normocephalic, atraumatic. No pharyngeal erythema. No thyromegaly. CARDIOVASCULAR: S1 and S2 muffled PULMONARY: Breath sounds clear to auscultation with no wheezing or rhonchi noted. ABDOMEN: soft. Nontender on exam. obese. non-distended, normoactive bowel sounds. No palpable organomegaly. MUSCULOSKELETAL: No joint swelling or deformity. EXTREMITIES: No cyanosis, clubbing, or pedal edema. NEUROLOGICAL: Gross neurological examination did not reveal any focal deficits. SKIN: No rashes. Assessment: Acute alcohol intoxication with early delirium tremens Acute alcohol withdrawal Hypomagnesemia Depression/anxiety Continued ongoing alcohol abuse GI prophylaxis DVT prophylaxis Full code Plan: Recommend to continue with current medications and management with [facility] alcohol. Psychiatry has been consulted and pending at this time for his depression. Case management also following and patient contacted [facility] [facility] and has a scheduled appointment this Thursday and unable to take him any sooner. Magnesium was found to be 1.4 and will replace per protocol and repeat labs and have psychiatry evaluate the patient with possible discharge later today. Librium taper started and patient will also be given some Imodium for his diarrhea. Encouraged increase activity as tolerated and will continue to monitor for any signs of withdrawal. Patient is high risk for multiple readmissions and hospitalizations secondary to alcohol abuse and alcohol withdrawal. Prognosis is guarded. The impression and plan of care has been dictated by Zayra Webster, nurse practitioner as directed. Dr. Melvi MD I have performed a history and examination and MDM of this patient, discussed the same with the dictator, and agree with the dictator's assessment and plan as written ,documented as a scribe. Based on total visit time, I have performed more than 50% of the visit. Any additional findings or plans will be noted. Past Medical History Past Medical History: GERD/Reflux, GI Bleed, Hypertension, Liver Disease, Osteoarthritis (OA), Pneumonia, Seizure Disorder, Sleep Apnea/CPAP/BIPAP, Vascular Disorder Additional Past Medical History / Comment(s): Pt recently admitted to [facility] on 07/26/21 with alcohol intoxication/abuse/fall/marijuana abuse. Other hx: Occasional bilateral pedal edema if stands long, arthritis possibly in back/ribs, MILIND without device, ETOH abuse, alcoholic seizures/blackouts/fainting 2016, alcoholic hepatitis, alcoholic gastritis, upper GI bleed, hypomagnesemia, spinal stenosis/herniated disc with surgery, bilateral varicose veins, hemorrhoids History of Any Multi-Drug Resistant Organisms: None Reported Past Surgical History: Appendectomy, Back Surgery, Tonsillectomy Additional Past Surgical History / Comment(s): bilateral discectomy, discectomy L5-S1, EGD Past Anesthesia/Blood Transfusion Reactions: Motion Sickness Past Psychological History: Anxiety, Depression Additional Psychological History / Comment(s): Pt lives alone no pets. Pt uses no assistive device. Smoking Status: Current every day smoker Past Alcohol Use History: Abuse, Heavy Additional Past Alcohol Use History / Comment(s): He has been in rehab in the past for ETOH abuse. Pt states he started on and off smoking as a young adult and has more often been a nonsmoker. Pt states he drinks up to 1/2 gallon to a fifth daily of vodka Past Drug Use History: Marijuana Additional Drug Use History / Comment(s): Pt smoked marijuana on occasion - Past Family History Father Family Medical History: Cancer, Dementia, Neurologic Disorder Additional Family Medical History / Comment(s): melanoma, parkinsons, schizophrenic Mother Family Medical History: Hypertension, Musculoskeletal Disorder, Neurologic Disorder, Osteoarthritis (OA) Additional Family Medical History / Comment(s): Mother of motor neuron disease at the age of 78yrs. Medications and Allergies Home Medications Medication Instructions Recorded Confirmed Type Fluticasone Nasal [place] [Flonase 2 spr EA NOSTRIL BID 10/11/19 10/30/21 History Nasal [place]] traZODone HCL [Desyrel] 100 mg PO HS PRN 05/14/20 10/30/21 History Celecoxib [CeleBREX] 200 mg PO DAILY 07/06/21 10/30/21 History Gabapentin [Neurontin] 600 mg PO TID 07/06/21 10/30/21 History Magnesium Oxide [Mag-Ox] 400 mg PO TID 30 Days #90 tab 08/06/21 10/30/21 Rx Cholecalciferol [Vitamin D3 (25 25 mcg PO DAILY 10/02/21 10/30/21 History Mcg = 1000 Iu)] Nicotine 14Mg/24Hr Patch [Habitrol] 1 patch TRANSDERM DAILY PRN 10/02/21 10/30/21 History Acetaminophen Tab [Tylenol] 650 mg PO Q6HR PRN tab 10/15/21 10/30/21 Rx Ondansetron [Zofran] 4 mg PO Q8HR PRN 3 Days #12 tab 10/22/21 10/30/21 Rx Pantoprazole Sodium [Protonix] 40 mg PO DAILY 7 Days #7 tab 10/22/21 10/30/21 Rx Thiamine [Vitamin B-1] 100 mg PO BID-W/MEALS #30 tab 10/22/21 10/30/21 Rx Allergies Allergy/AdvReac Type Severity Reaction Status Date / Time Cephalosporins Allergy Severe Anaphylaxis Verified 10/30/21 10:08 diphenhydramine HCl Allergy Severe Anaphylaxis Verified 10/30/21 10:08 [From Benadryl] divalproex sodium Allergy Severe Anaphylaxis Verified 10/30/21 10:08 [From Depakote] ceftriaxone [From Rocephin] Allergy Anaphylaxis Verified 10/30/21 10:08 cephalexin [From Keflex] Allergy Anaphylaxis Verified 10/30/21 10:08 droperidol Allergy Anaphylaxis Verified 10/30/21 10:08 lisinopril Allergy Anaphylaxis Verified 10/30/21 10:08 Physical Exam Vitals: Vital Signs Temp Pulse Pulse Resp BP BP Pulse Ox 10/31/21 07:37 98.4 F 64 139/87 96 10/31/21 04:13 99.0 F 82 18 156/91 98 10/31/21 00:45 83 24 146/89 97 10/30/21 18:44 98.8 F 97 18 143/96 97 10/30/21 16:42 96 18 142/99 98 10/30/21 13:45 96 18 134/89 97 10/30/21 10:19 92 18 146/66 95 Intake and Output 10/30/21 10/31/21 10/31/21 22:59 06:59 14:59 Intake Total 120 Balance 120 Intake: Intake, IV Titration 120 Amount Dextrose 5%-0.45% NaCl 1, 120 000 ml @ 120 mls/hr IV . Q8H20M TRAVIS Rx#:[id number] Other: # Voids 1 Weight 113.398 kg Results CBC & Chem 7: 10/30/21 09:29 10/30/21 10:11 Labs: Abnormal Lab Results - Last 24 Hours (Table) 10/30/21 Range/Units 10:11 Carbon Dioxide 31 H (22-30) mmol/L Magnesium 1.4 L (1.6-2.3) mg/dL AST 109 H (17-59) U/L ALT 54 H (4-49) U/L Thrombosis Risk Factor Assmnt - Choose All That Apply Each Factor Represents 1 point: Age 41-60 years, Obesity (BMI >25) Thrombosis Risk Factor Assessment Total Risk Factor Score: 2 Thrombosis Risk Factor Assessment Level: Low Risk
[2021-10-31] MEDS ORDERED: LOPERAMIDE 2 MG CAP PO PRN (13:45)
[2021-10-31 13:59] VITALS: BMI 33.0
--- NOTE | 2021-10-31 14:11 | P.HP ---
Psychiatric H&P - . H&P Date: 10/31/21 History & Physical: Allergies Allergy/AdvReac Type Severity Reaction Status Date / Time Cephalosporins Allergy Severe Anaphylaxis Verified 10/30/21 10:08 diphenhydramine HCl Allergy Severe Anaphylaxis Verified 10/30/21 10:08 [From Benadryl] divalproex sodium Allergy Severe Anaphylaxis Verified 10/30/21 10:08 [From Depakote] ceftriaxone [From Rocephin] Allergy Anaphylaxis Verified 10/30/21 10:08 cephalexin [From Keflex] Allergy Anaphylaxis Verified 10/30/21 10:08 droperidol Allergy Anaphylaxis Verified 10/30/21 10:08 lisinopril Allergy Anaphylaxis Verified 10/30/21 10:08 Vital Signs Temp 98.4 F 10/31/21 07:37 Pulse 64 10/31/21 08:15 Resp 18 10/31/21 08:15 BP 139/87 10/31/21 07:37 Pulse Ox 96 10/31/21 07:37 Intake & Output 10/30/21 10/31/21 10/31/21 18:59 06:59 18:59 Intake Total 120 Balance 120 Weight 113.398 kg 113.398 kg 113.398 kg Intake: Intake, IV Titration 120 Amount Dextrose 5%-0.45% NaCl 1, 120 000 ml @ 120 mls/hr IV . Q8H20M [facility] Rx#:[id number] Other: Voiding Method Toilet # Voids 1 1 # Bowel Movements 1 Laboratory Last Values WBC 6.2 k/uL (3.8-10.6) 10/30/21 09:29 RBC 4.75 m/uL (4.30-5.90) 10/30/21 09:29 Hgb 14.3 gm/dL (13.0-17.5) 10/30/21 09:29 Hct 44.7 % (39.0-53.0) 10/30/21 09:29 MCV 94.0 fL (80.0-100.0) 10/30/21 09:29 MCH 30.0 pg (25.0-35.0) 10/30/21 09: MCHC 31.9 g/dL (31.0-37.0) 10/30/21 09:29 RDW 13.7 % (11.5-15.5) 10/30/21 09:29 Plt Count 206 k/uL (150-450) 10/30/21 09: MPV 7.2 10/30/21 09: Neutrophils % 31 % 10/30/21 09: Lymphocytes % 62 % 10/30/21 09:29 Monocytes % 4 % 10/30/21 09: Eosinophils % 1 % 10/30/21 09: Basophils % 1 % 10/30/21 09: Neutrophils # 1.9 k/uL (1.3-7.7) 10/30/21 09: Lymphocytes # 3.8 k/uL (1.0-4.8) 10/30/21 09: Monocytes # 0.2 k/uL (0-1.0) 10/30/21: Eosinophils # 0.0 k/uL (0-0.7) 10/30/21 09: Basophils # 0.1 k/uL (0-0.2) 10/30/21 09:29 Manual Slide Review Performed 10/30/21 09:29 Sodium 143 mmol/L (137-145) 10/30/21 10:11 Potassium 4.6 mmol/L (3.5-5.1) 10/30/21 10:11 Chloride 100 mmol/L (98-107) 10/30/21 10:11 Carbon Dioxide 31 mmol/L (22-30) H 10/30/21 10:11 Anion Gap 12 mmol/L 10/30/21 10:11 BUN 13 mg/dL (9-20) 10/30/21 10:11 Creatinine 0.83 mg/dL (0.66-1.25) 10/30/21 10:11 Est GFR (CKD-EPI)AfAm >90 (>60 ml/min/1.73 sqM) 10/30/21 10:11 Est GFR (CKD-EPI)NonAf >90 (>60 ml/min/1.73 sqM) 10/30/21 10:11 Glucose 85 mg/dL (74-99) 10/30/21 10:11 Calcium 8.6 mg/dL (8.4-10.2) 10/30/21 10:11 Magnesium 1.4 mg/dL (1.6-2.3) L 10/30/21 10:11 Total Bilirubin 1.1 mg/dL (0.2-1.3) 10/30/21 10:11 AST 109 U/L (17-59) H 10/30/21 10:11 ALT 54 U/L (4-49) H 10/30/21 10:11 Alkaline Phosphatase 62 U/L (38-126) 10/30/21 10:11 Total Protein 7.4 g/dL (6.3-8.2) 10/30/21 10:11 Albumin 4.7 g/dL (3.5-5.0) 10/30/21 10:11 Lipase 129 U/L (23-300) 10/30/21 10:11 Serum Alcohol 165 mg/dL 10/30/21 10:11 10/31/21 14:11 IDENTIFYING DATA: This patient is a single, unemployed, 46-year-old male who was admitted for recurrent vomiting in the context of heavy alcohol use HISTORY OF PRESENT ILLNESS: The patient presented to the hospital on 10/31/2021, with a chief complaint of acute alcohol withdrawal. Psychiatry has been consulted for evaluation of depression as the patient reportedly endorsed suicidal ideation while intoxicated. He has had numerous presentations to the hospital for alcohol related issues and alcohol related injuries. He was last in the ED 2 days prior to this admission after suffering from a fall. He endorsed to the ED nurse at approximately 11:20 AM that he was suicidal. Alcohol level was 1625. EPS evaluated the patient for possible psychiatric admission however appeared to have significant signs and symptoms of alcohol withdrawal. The patient was evaluated by this provider in July of this year fro the same issues. 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 In regards to mood, the patient does endorse significant symptoms of depression including low appetite, poor sleep, loneliness, and isolation. He endorses helplessness but remains hopeful in going to rehab. He does express fear of returning home despite having rehabilitation set up for thursday. He reports worry that he would relapse into alcohol use and "do something stupid." He otherwise denies any signifcant symptoms of bipolar or psychosis. He reports a history of auditory hallucinations of his girlfriend but denies any visual hallucinations. He reports no paranoia or other delusions. PAST PSYCHIATRIC HISTORY: Patient has a history of depression and alcohol use disorder. The patient has had numerous admissions to this hospital for alcohol withdrawals and alcohol related issues. The patient's current home medication regimen includes trazodone and Gabapentin. The patient reports that was admitted onto [facility] approximately 6 years ago. Patient denies any psychiatric outpatient follow-up. Patient denies any history of suicide attempts in the past. PAST MEDICAL HISTORY: Past Medical History: GERD/Reflux, GI Bleed, Hypertension, Liver Disease, Osteoarthritis (OA), Pneumonia, Seizure Disorder, Sleep Apnea/CPAP/BIPAP, Vascular Disorder Additional Past Medical History / Comment(s): Pt recently admitted to [facility] on 07/26/21 with alcohol intoxication/abuse/fall/marijuana abuse. Other hx: Occasional bilateral pedal edema if stands long, arthritis possibly in back/ribs, MILIND without device, ETOH abuse, alcoholic seizures/blackouts/fainting 2016, alcoholic hepatitis, alcoholic gastritis, upper GI bleed, hypomagnesemia, spinal stenosis/herniated disc with surgery, bilateral varicose veins, hemorrhoids History of Any Multi-Drug Resistant Organisms: None Reported Past Surgical History: Appendectomy, Back Surgery, Tonsillectomy Additional Past Surgical History / Comment(s): bilateral discectomy, discectomy L5-S1, EGD Past Anesthesia/Blood Transfusion Reactions: Motion Sickness Past Psychological History: Anxiety, Depression Additional Psychological History / Comment(s): Pt lives alone no pets. Pt uses no assistive device. Smoking Status: Current every day smoker Past Alcohol Use History: Abuse, Heavy Additional Past Alcohol Use History / Comment(s): He has been in rehab in the past for ETOH abuse. Pt states he started on and off smoking as a young adult and has more often been a nonsmoker. Pt states he drinks up to 1/2 gallon to a fifth daily of vodka Past Drug Use History: Marijuana Additional Drug Use History / Comment(s): Pt smoked marijuana on occasion ALLERGIES: Cephalosporins, diphenhydramine, Depakote, Rocephin, Keflex, lisinopril CHEMICAL DEPENDENCY HISTORY: The patient smokes tobacco intermittently and reports a history of marijuana use. He has been drinking up to a gallon of vodka per day. He reports his last drink was just prior to him presenting at the hospital. He has been to rehab 6 times in the past. He is scheduled for rehab this thursday. FAMILY PSYCHIATRIC/SUBSTANCE USE HISTORY: The patient reports that his father has been diagnosed with schizophrenia. He reports a paternal grandfather who was an alcoholic. SOCIAL HISTORY: Patient was born and raised in [place], [place]. He currently lives alone and is currently unemployed. He was in a relationship with a woman for 20 years before she by overdose approximately 10 years ago. Currently not in any 12-step program. He last quit on the 4th step. MENTAL STATUS EXAM: General Appearance: Patient appears to be stated age is alert, pleasant, and cooperative. Patient appears to have fair hygiene and grooming wearing hospital gown with fair eye contact. Behavior: Patient is calmly lying in bed without any agitated behavior. Speech: Patient's speech is fluent and nonpressured. Mood/Affect: Patient reports their mood is "blah", affect is euthymic. Suicidality/Homicidality: Patient denies having any suicidal or homicidal ideation intent or plan. Perceptions: Patient denies any visual hallucinations and denies any auditory hallucinations Though content/process: There is no evidence of any delusional thought content and thought process is linear and goal-directed. Memory and concentration: AOX3, grossly intact for the purposes of this session. Can spell "WORLD" backwards Judgment and insight: Fair IMPRESSIONS: Major Depressive Disorder, recurrent, severe, with psychotic features. Alcohol Use Disorder Acute Alcohol withdrawal PLAN: -At this time patient DOES meet criteria for inpatient psychiatric admission. The patient does have numerous risk factors for self harm including heavy alcohol use and depression. He expresses concern for relapse and worsening psychiatric pathology should he return home prior to his rehab intake. -Continue your medical management and treatment for alcohol withdrawal -Would recommend the following medication changes/additions: Start Zoloft 50 mg daily for depression/anxiety Agree with Gabapentin 600 mg TID for neuropathic pain and off-label benefit for anxiety Continue trazodone 100 mg by mouth at bedtime when necessary for insomnia Unable to start revia due to elevated AST and ALT. Will start campral 333 mg TID and titrate to 666 mg TID tomorrow for alcohol use disorder. -Approximately 20 minutes was spent providing the patient with supportive psychotherapy, psychoeducation, and motivational interviewing for alcohol use disorder. -Psychiatry will sign off at this point, please contact with any questions. 10/31/21 14:11 10/31/21 14:11
[2021-10-31] MEDS: chlordiazePOXIDE 25 MG CAP PO SCH ×3 (14:48→22:23)
[2021-10-31] MEDS ORDERED: ACAMPROSATE CALCIUM 333 MG TABLET.DR PO SCH (16:00)
--- NOTE | 2021-10-31 17:52 | P.DS ---
Providers Date of admission: 10/31/21 02:59 Expected date of discharge: 10/31/21 Attending physician: Aida Arias Consults: 10/31/21 03:00 Consult Physician Routine Consulting Provider: Roni Gasca Reason/Comments: depression Do you want consulting provider notified?: Yes Primary care physician: Veena Mar Hospital Course: Final diagnosis Acute alcohol intoxication with early delirium tremens Acute alcohol withdrawal Hypomagnesemia Depression/anxiety Continued ongoing alcohol abuse GI prophylaxis DVT prophylaxis Full code Discharge disposition Patient is being transferred in a stable condition with guarded prognosis to [address] [place] [address] inpatient psychiatric unit for further evaluation. Patient will follow-up with Dr. Mar in the outpatient setting upon discharge. Patient is to continue with alcohol rehab intake at [facility] on Thursday as scheduled. Total time taken is greater than 35 minutes. Hospital Course This is a 46-year-old male who was recently admitted acute alcohol intoxication and possible alcohol withdrawal and was placed on CIWA protocol. Patient also having increasing depression and fear of being sent home and will continue to drink and make poor decisions. Patient is denying suicidal ideation at this time. Patient was evaluated by psychiatry and is meeting criteria and will be transferred to the psych unit today. Patient had hypomagnesemia of 1.4 and was replaced and repeat was 2.2. Currently no reports of chest pain, shortness of breath, or palpitations. Patient is afebrile. No reports of nausea or vomiting and patient is tolerating diet. Patient will transferred to [facility] today. Guarded prognosis Physical exam: Gen: This is a 46-year-old male awake, alert and oriented 3, well-developed, well-nourished HEENT: Head is atraumatic, normocephalic. Pupils equal, round. Sclerae is anicteric. NECK: Supple. No JVD. No lymphadenopathy. No thyromegaly. LUNGS: Clear to auscultation. No wheezes or rhonchi. No intercostal retractions. HEART: Regular rate and rhythm. No murmur. ABDOMEN: Soft. Bowel sounds are present. No masses. No tenderness. EXTREMITIES: No pedal edema. No calf tenderness. NEUROLOGICAL: Patient is awake, alert and oriented x3. Cranial nerves 2 through 12 are grossly intact. Please refer to medication reconciliation sheet for a list of medications. The impression and plan of care has been dictated by Zayra Webster, Nurse Practitioner as directed. Dr. Melvi MD I have performed a history and examination and MDM of this patient, discussed the same with the dictator, and agree with the dictator's assessment and plan as written ,documented as a scribe. Based on total visit time, I have performed more than 50% of the visit. Patient Condition at Discharge: Stable Plan - Discharge Summary New Discharge Prescriptions: New LORazepam [Ativan] 1 mg PO Q8HR PRN tab PRN Reason: Anxiety chlordiazePOXIDE HCl [Librium] 25 mg PO TID #12 cap Multivitamins, Thera [Multivitamin (formulary)] 1 each PO DAILY tab Acamprosate Calcium [Campral] 333 mg PO TID tablet Acamprosate Calcium [Campral] 666 mg PO TID tablet Loperamide [Imodium] 2 mg PO QID PRN cap PRN Reason: Diarrhea Sertraline [Zoloft] 50 mg PO DAILY tab Continue Fluticasone Nasal [place] [Flonase Nasal [place]] 2 spr EA NOSTRIL BID traZODone HCL [Desyrel] 100 mg PO HS PRN PRN Reason: Insomnia Gabapentin [Neurontin] 600 mg PO TID Celecoxib [CeleBREX] 200 mg PO DAILY Magnesium Oxide [Mag-Ox] 400 mg PO TID 30 Days #90 tab Nicotine 14Mg/24Hr Patch [Habitrol] 1 patch TRANSDERM DAILY PRN PRN Reason: Nicotine Cravings Cholecalciferol [Vitamin D3 (25 Mcg = 1000 Iu)] 25 mcg PO DAILY Acetaminophen Tab [Tylenol] 650 mg PO Q6HR PRN tab PRN Reason: Fever And/ Or Pain Pantoprazole Sodium [Protonix] 40 mg PO DAILY 7 Days #7 tab Thiamine [Vitamin B-1] 100 mg PO BID-W/MEALS #30 tab Discontinued Ondansetron [Zofran] 4 mg PO Q8HR PRN 3 Days #12 tab PRN Reason: Nausea And Vomiting Discharge Medication List Fluticasone Nasal [place] [Flonase Nasal [place]] 2 spr EA NOSTRIL BID 10/11/19 [History] traZODone HCL [Desyrel] 100 mg PO HS PRN 05/14/20 [History] Celecoxib [CeleBREX] 200 mg PO DAILY 07/06/21 [History] Gabapentin [Neurontin] 600 mg PO TID 07/06/21 [History] Magnesium Oxide [Mag-Ox] 400 mg PO TID 30 Days #90 tab 08/06/21 [Rx] Cholecalciferol [Vitamin D3 (25 Mcg = 1000 Iu)] 25 mcg PO DAILY 10/02/21 [History] Nicotine 14Mg/24Hr Patch [Habitrol] 1 patch TRANSDERM DAILY PRN 10/02/21 [History] Acetaminophen Tab [Tylenol] 650 mg PO Q6HR PRN tab 10/15/21 [Rx] Pantoprazole Sodium [Protonix] 40 mg PO DAILY 7 Days #7 tab 10/22/21 [Rx] Thiamine [Vitamin B-1] 100 mg PO BID-W/MEALS #30 tab 10/22/21 [Rx] Acamprosate Calcium [Campral] 333 mg PO TID tablet 10/31/21 [Rx] Acamprosate Calcium [Campral] 666 mg PO TID tablet 10/31/21 [Rx] LORazepam [Ativan] 1 mg PO Q8HR PRN tab 10/31/21 [Rx] Loperamide [Imodium] 2 mg PO QID PRN cap 10/31/21 [Rx] Multivitamins, Thera [Multivitamin (formulary)] 1 each PO DAILY tab 10/31/21 [Rx] Sertraline [Zoloft] 50 mg PO DAILY tab 10/31/21 [Rx] chlordiazePOXIDE HCl [Librium] 25 mg PO TID #12 cap 10/31/21 [Rx] Follow up Appointment(s)/Referral(s): Veena Mar DO [Primary Care Provider] - 1-2 days Activity/Diet/Wound Care/Special Instructions: Patient is medically stable for transfer to [address] [place] [address] psychiatric unit for further evaluation Discharge Disposition: TRANSFER TO PSYCH HOSP/UNIT
[2021-10-31 19:52] VITALS: BP 130/80; PULSE 80; RESP 16; TEMP 98.4
[2021-11-01] MEDS ORDERED: MELOXICAM 7.5 MG TAB PO SCH (09:00)
[2021-11-01] MEDS ORDERED: SERTRALINE 50 MG TAB PO SCH (09:00)
[2021-11-01] MEDS ORDERED: ACAMPROSATE CALCIUM 333 MG TABLET.DR PO SCH (16:00)
== END 2021-10-31 22:20 | DRG 897 ==
LOC: EC 09:09 → 4SSUR 10-31 02:59
PROVIDERS: ADMIT Hospitalist; ATTEND Hospitalist
DX: F10.231 Alcohol dependence with withdrawal delirium (principal); F33.3 Major depressive disorder, recurrent, severe with psychotic symptoms; R45.851 Suicidal ideations; F10.229 Alcohol dependence with intoxication, unspecified; E83.42 Hypomagnesemia; Y90.6 Blood alcohol level of 120-199 mg/100 ml; K70.9 Alcoholic liver disease, unspecified; F17.200 Nicotine dependence, unspecified, uncomplicated; F41.9 Anxiety disorder, unspecified; G40.909 Epilepsy, unspecified, not intractable, without status epilepticus; I10 Essential (primary) hypertension; Z88.1 Allergy status to other antibiotic agents; Z88.8 Allergy status to other drugs, medicaments and biological substances; Z56.0 Unemployment, unspecified; Z79.1 Long term (current) use of non-steroidal anti-inflammatories (NSAID); Z79.899 Other long term (current) drug therapy; Z82.49 Family history of ischemic heart disease and other diseases of the circulatory system; Z82.0 Family history of epilepsy and other diseases of the nervous system; Z81.8 Family history of other mental and behavioral disorders; Z80.8 Family history of malignant neoplasm of other organs or systems
CPT/HCPCS: 36415; 80053; 80320; 82075; 83690; 83735; 85025; 87635; 93005

== ENCOUNTER 2022-01-03 22:18 | Inpatient (IN) | payer OTHER ==
[2022-01-03] MEDS ORDERED: SODIUM CHLORIDE 0.9% 500 ML 500 ML IV STA (22:44)
[2022-01-03] MEDS ORDERED: ONDANSETRON 4 MG/2 ML VIAL IVP STA (22:44)
[2022-01-03 23:39] LABS: Basophils # (A) 0.1 k/uL (0-0.2); Basophils % (A) 1 %; Eosinophils # (A) 0.1 k/uL (0-0.7); Eosinophils % (A) 1 %; HCT 50.1 % (39.0-53.0); Lymphocytes # (A) 2.4 k/uL (1.0-4.8); Lymphocytes % (A) 27 %; MCH 28.8 pg (25.0-35.0); MCV 90.1 fL (80.0-100.0); Mean Platelet Volume 7.6; Monocytes # (A) 0.3 k/uL (0-1.0); Monocytes % (A) 4 %; Neutrophils % (A) 67 %; Platelet Count 255 k/uL (150-450); RBC 5.56 m/uL (4.30-5.90)
[2022-01-03 23:59] LABS: ALT 127 U/L (4-49); AST 220 U/L (17-59); African American GFR (CKD) >90 (>60 ml/min/1.73 sqM); Albumin 5.4 g/dL (3.5-5.0); Alkaline Phosphatase 66 U/L (38-126); Anion Gap 22 mmol/L; Blood Urea Nitrogen 21 mg/dL (9-20); Calcium 9.1 mg/dL (8.4-10.2); Carbon Dioxide 21 mmol/L (22-30); Chloride 93 mmol/L (98-107); Glucose 87 mg/dL (74-99); Lipase 97 U/L (23-300); Non-African American GFR(CKD) >90 (>60 ml/min/1.73 sqM); Potassium 5.3 mmol/L (3.5-5.1); Sodium 136 mmol/L (137-145); Total Bilirubin 2.4 mg/dL (0.2-1.3); Total Protein 8.4 g/dL (6.3-8.2)
[2022-01-04 00:25] LABS: Alcohol 365 mg/dL
[2022-01-04] MEDS ORDERED: SODIUM CHLORIDE 0.9% 1,000 ML IV ONE (00:31)
[2022-01-04] MEDS ORDERED: NALOXONE 0.4 MG/ML 1 ML VIAL IV PRN (00:32)
--- NOTE | 2022-01-04 00:32 | ED ---
Alcohol HPI - General Chief Complaint: Alcohol Stated Complaint: ETOH Time Seen by Provider: 01/03/22 22:40 Source: EMS Mode of arrival: EMS Limitations: altered mental status - History of Present Illness Initial Comments: 46-year-old male known to the emergency department for significant alcohol abuse presents today with nausea vomiting and alcohol intoxication. He reports to me that he hasn't drank and 40 hours however patient is visibly intoxicated. EMS states that there is multiple empty bowels on scene. Patient states that he was in rehab 3 weeks ago. He did relapse and drinks up to half gallon a day. Remainder of HPI is limited due to the patient's current mental status - Related Data Home Medications Medication Instructions Recorded Confirmed Fluticasone Nasal [place] [Flonase 2 spr EA NOSTRIL BID 10/11/19 01/07/22 Nasal [place]] Cholecalciferol [Vitamin D3 (25 25 mcg PO DAILY 10/02/21 01/07/22 Mcg = 1000 Iu)] Multivitamins, Thera [Multivitamin 1 tab PO DAILY 01/04/22 01/07/22 (formulary)] Previous Rx's Medication Instructions Recorded Magnesium Oxide [Mag-Ox] 400 mg PO TID 30 Days #90 tab 08/06/21 Acetaminophen Tab [Tylenol] 650 mg PO Q6HR PRN tab 10/15/21 Loperamide [Imodium] 2 mg PO QID PRN cap 10/31/21 Acamprosate Calcium [Campral] 666 mg PO TID #90 tablet 11/03/21 Gabapentin [Neurontin] 600 mg PO TID #120 cap 11/03/21 Nicotine 14Mg/24Hr Patch [Habitrol] 1 patch TRANSDERM DAILY PRN #28 11/03/21 patch Thiamine [Vitamin B-1] 100 mg PO BID-W/MEALS #60 tab 01/06/22 Naltrexone HCl [Revia] 50 mg PO DAILY #1 tablet 01/07/22 Pantoprazole [Protonix] 40 mg PO DAILY #30 tab 01/07/22 Allergies Allergy/AdvReac Type Severity Reaction Status Date / Time Cephalosporins Allergy Severe Anaphylaxis Verified 01/04/22 12:56 diphenhydramine HCl Allergy Severe Anaphylaxis Verified 01/04/22 12:56 [From Benadryl] divalproex sodium Allergy Severe Anaphylaxis Verified 01/04/22 12:56 [From Depakote] ceftriaxone [From Rocephin] Allergy Anaphylaxis Verified 01/04/22 12:56 cephalexin [From Keflex] Allergy Anaphylaxis Verified 01/04/22 12:56 droperidol Allergy Anaphylaxis Verified 01/04/22 12:56 lisinopril Allergy Anaphylaxis Verified 01/04/22 12:56 Review of Systems ROS Statement: Those systems with pertinent positive or pertinent negative responses have been documented in the HPI. ROS Other: All systems not noted in ROS Statement are negative. Past Medical History Past Medical History: GERD/Reflux, GI Bleed, Hypertension, Liver Disease, Osteoarthritis (OA), Pneumonia, Seizure Disorder, Sleep Apnea/CPAP/BIPAP, Vascular Disorder Additional Past Medical History / Comment(s): Pt recently admitted to [facility] on 07/26/21 with alcohol intoxication/abuse/fall/marijuana abuse. Other hx: Occasional bilateral pedal edema if stands long, arthritis possibly in back/ribs, MILIND without device, ETOH abuse, alcoholic seizures/blackouts/fainting 2017, alcoholic hepatitis, alcoholic gastritis, upper GI bleed, hypomagnesemia, spinal stenosis/herniated disc with surgery, bilateral varicose veins, hemorrhoids History of Any Multi-Drug Resistant Organisms: None Reported Past Surgical History: Appendectomy, Back Surgery, Tonsillectomy Additional Past Surgical History / Comment(s): bilateral discectomy, discectomy L5-S1, EGD Past Anesthesia/Blood Transfusion Reactions: Motion Sickness Smoking Status: Former smoker - Past Family History Father Family Medical History: Cancer, Dementia, Neurologic Disorder Additional Family Medical History / Comment(s): melanoma, parkinsons, schizophrenic Mother Family Medical History: Hypertension, Musculoskeletal Disorder, Neurologic Disorder, Osteoarthritis (OA) Additional Family Medical History / Comment(s): Mother of motor neuron disease at the age of 78yrs. General Exam Limitations: altered mental status General appearance: alert, in no apparent distress, appears intoxicated Head exam: Present: atraumatic, normocephalic, normal inspection Eye exam: Present: normal appearance, PERRL, EOMI. Absent: scleral icterus, conjunctival injection, periorbital swelling ENT exam: Present: normal exam, mucous membranes moist Neck exam: Present: normal inspection. Absent: tenderness, meningismus, lymphadenopathy Respiratory exam: Present: normal lung sounds bilaterally. Absent: respiratory distress, wheezes, rales, rhonchi, stridor Cardiovascular Exam: Present: regular rate, normal rhythm, normal heart sounds. Absent: systolic murmur, diastolic murmur, rubs, gallop, clicks GI/Abdominal exam: Present: soft, normal bowel sounds. Absent: distended, tenderness, guarding, rebound, rigid Extremities exam: Present: normal inspection, full ROM, normal capillary refill. Absent: tenderness, pedal edema, joint swelling, calf tenderness Back exam: Present: normal inspection Neurological exam: Present: altered, CN II-XII intact Psychiatric exam: Present: normal mood, flat affect Skin exam: Present: warm, dry, intact, normal color. Absent: rash Course Vital Signs 01/03/22 01/04/22 01/04/22 22:21 02:03 04:17 Temperature 98.1 F Pulse Rate 124 H 107 H 96 Respiratory 18 18 16 Rate Blood Pressure 116/79 133/101 145/92 O2 Sat by Pulse 98 98 99 Oximetry Medical Decision Making - Medical Decision Making Upon arrival patient is placed in a trauma 2. IV is established the patient is given nausea medications and fluids. His alcohol is 365. He will be admitted for alcohol intoxication and impending withdrawals and vomiting. I paged Dr. Goel and I am awaiting a callback - Lab Data Result diagrams: 01/06/22 05:55 01/06/22 05:55 Lab Results 01/03/22 01/03/22 Range/Units 23:26 23:26 WBC 9.0 (3.8-10.6) k/uL RBC 5.56 (4.30-5.90) m/uL Hgb 16.0 (13.0-17.5) gm/dL Hct 50.1 (39.0-53.0) % MCV 90.1 (80.0-100.0) fL MCH 28.8 (25.0-35.0) pg MCHC 32.0 (31.0-37.0) g/dL RDW 13.0 (11.5-15.5) % Plt Count 255 (150-450) k/uL MPV 7.6 Neutrophils % 67 % Lymphocytes % 27 % Monocytes % 4 % Eosinophils % 1 % Basophils % 1 % Neutrophils # 6.0 (1.3-7.7) k/uL Lymphocytes # 2.4 (1.0-4.8) k/uL Monocytes # 0.3 (0-1.0) k/uL Eosinophils # 0.1 (0-0.7) k/uL Basophils # 0.1 (0-0.2) k/uL Sodium 136 L (137-145) mmol/L Potassium 5.3 H (3.5-5.1) mmol/L Chloride 93 L (98-107) mmol/L Carbon Dioxide 21 L (22-30) mmol/L Anion Gap 22 mmol/L BUN 21 H (9-20) mg/dL Creatinine 0.88 (0.66-1.25) mg/dL Est GFR (CKD-EPI)AfAm >90 (>60 ml/min/1.73 sqM) Est GFR (CKD-EPI)NonAf >90 (>60 ml/min/1.73 sqM) Glucose 87 (74-99) mg/dL Calcium 9.1 (8.4-10.2) mg/dL Total Bilirubin 2.4 H (0.2-1.3) mg/dL AST 220 H (17-59) U/L ALT 127 H (4-49) U/L Alkaline Phosphatase 66 (38-126) U/L Total Protein 8.4 H (6.3-8.2) g/dL Albumin 5.4 H (3.5-5.0) g/dL Lipase 97 (23-300) U/L Serum Alcohol 365 H* mg/dL Disposition Clinical Impression: Alcohol use disorder, severe, dependence, Alcoholic liver disease, Nausea & vomiting Disposition: ADMITTED IP TO THIS [facility] Condition: Fair Is patient prescribed a controlled substance at d/c from ED?: No Time of Disposition: 00:32 Decision to Admit Reason: Admit from EC Decision Date: 01/04/22 Decision Time: 00:32
[2022-01-04] MEDS ORDERED: THIAMINE 100 MG/ML 2 ML VIAL IM STA (02:03)
[2022-01-04] MEDS ORDERED: LORazepam 2 MG/ML INJ IV PRN ×3 (02:03)
[2022-01-04] MEDS: ONDANSETRON 4 MG/2 ML VIAL IVP PRN ×3 (02:52→15:12)
[2022-01-04] MEDS: SODIUM CHLORIDE 0.9% 1,000 ML IV SCH ×3 (04:23→23:39)
[2022-01-04] MEDS: LORazepam 1 MG/0.5 ML VIAL IV PRN ×8 (06:48→21:40)
[2022-01-04] MEDS ORDERED: LORazepam 1 MG/0.5 ML VIAL IV PRN (06:48)
[2022-01-04] MEDS: PANTOPRAZOLE 40 MG/10 ML VIAL IV SCH (07:12)
[2022-01-04] MEDS: traMADol 50 MG TAB PO PRN (15:12)
[2022-01-04] MEDS: THIAMINE 100 MG TAB PO SCH (17:14)
--- NOTE | 2022-01-05 01:04 | P.HPIM ---
History of Present Illness H&P Date: 01/04/22 Chief Complaint: Acute alcohol intoxication Patient is a 46-year-old male with a known history of alcohol abuse and previous admissions with alcohol intoxication, hypertension, alcoholic liver disease, GERD, osteoarthritis, obstructive sleep apnea not using CPAP at home, history of upper GI bleed, anxiety/depression and previous history of smoking and daily alcohol use presents to ER with acute alcohol intoxication. Patient states that he has been having nausea vomiting and epigastric abdominal pain. Vomitus is mainly bilious and occasional coffee-ground color. Patient states that he was in the rehab 3 weeks ago and started back on drinking again about half gallon a day. Denies any complaints of chest pain or shortness of breath. No fever no chills. Laboratory data showed WBC 9.0 hemoglobin 16.0 and platelets 255 Sodium 136 potassium 5.3 chloride 93 bicarb is 21 BUN 21 creatinine 0.88 bilirubin level is 2.4 AST 28 ALT 127 alk phos 66 and lipase 97 and serum alcohol level is 365. Review of Systems Constitutional: Patient denies any fever or chills . Generalized weakness. Abdomen: Patient does complain of nausea vomiting and abdominal pain. No diarrhea. Cardiovascular: Patient denies any chest pain or short of breath no palpitations. Respiratory: patient denied any cough is from production. No shortness of breath Neurologic: Patient denied any numbness or tingling headache. Musculoskeletal: Patient denies any complaints of joint swelling or deformity. Skin: Negative Psychiatric: Negative Endocrine: No heat or cold intolerance. No recent weight gain. Genitourinary: No dysuria or hematuria. All other 14 point ROS negative except the above Past Medical History Past Medical History: GERD/Reflux, GI Bleed, Hypertension, Liver Disease, Osteoarthritis (OA), Pneumonia, Seizure Disorder, Sleep Apnea/CPAP/BIPAP, Vascular Disorder Additional Past Medical History / Comment(s): Pt recently admitted to [facility] on 07/26/21 with alcohol intoxication/abuse/fall/marijuana abuse. Other hx: Occasional bilateral pedal edema if stands long, arthritis possibly in back/ribs, MILIND without device, ETOH abuse, alcoholic seizures/blackouts/fainting 2017, alcoholic hepatitis, alcoholic gastritis, upper GI bleed, hypomagnesemia, spinal stenosis/herniated disc with surgery, bilateral varicose veins, hemorrhoids, stated on a sun for 2 weeks patient was drinking 1/2 gallon of vodka a day january 03. pt stoppped aprox 01/02/2022 History of Any Multi-Drug Resistant Organisms: None Reported Past Surgical History: Appendectomy, Back Surgery, Tonsillectomy Additional Past Surgical History / Comment(s): bilateral discectomy, discectomy L5-S1, EGD Past Anesthesia/Blood Transfusion Reactions: Motion Sickness Past Psychological History: Anxiety, Depression Additional Psychological History / Comment(s): Pt lives alone no pets. Pt uses no assistive device. Smoking Status: Former smoker Past Alcohol Use History: Abuse, Heavy Additional Past Alcohol Use History / Comment(s): He has been in rehab in the past for ETOH abuse. Pt states he started on and off smoking as a young adult and has more often been a nonsmoker. Pt states he drinks up to 1/2 gallon to a fifth daily of vodka Past Drug Use History: Marijuana Additional Drug Use History / Comment(s): Pt smoked marijuana on occasion - Past Family History Father Family Medical History: Cancer, Dementia, Neurologic Disorder Additional Family Medical History / Comment(s): melanoma, parkinsons, schizophrenic Mother Family Medical History: Hypertension, Musculoskeletal Disorder, Neurologic Disorder, Osteoarthritis (OA) Additional Family Medical History / Comment(s): Mother of motor neuron disease at the age of 78yrs. Medications and Allergies Home Medications Medication Instructions Recorded Confirmed Type Fluticasone Nasal [place] [Flonase 2 spr EA NOSTRIL BID 10/11/19 01/04/22 History Nasal [place]] Magnesium Oxide [Mag-Ox] 400 mg PO TID 30 Days #90 tab 08/06/21 01/04/22 Rx Cholecalciferol [Vitamin D3 (25 25 mcg PO DAILY 10/02/21 01/04/22 History Mcg = 1000 Iu)] Acetaminophen Tab [Tylenol] 650 mg PO Q6HR PRN tab 10/15/21 01/04/22 Rx Loperamide [Imodium] 2 mg PO QID PRN cap 10/31/21 01/04/22 Rx Acamprosate Calcium [Campral] 666 mg PO TID #90 tablet 11/03/21 01/04/22 Rx Gabapentin [Neurontin] 600 mg PO TID #120 cap 11/03/21 01/04/22 Rx Nicotine 14Mg/24Hr Patch [Habitrol] 1 patch TRANSDERM DAILY PRN #28 11/03/21 01/04/22 Rx patch Losartan [Cozaar] 50 mg PO DAILY 01/04/22 01/04/22 History Multivitamins, Thera [Multivitamin 1 tab PO DAILY 01/04/22 01/04/22 History (formulary)] Naltrexone HCl [Revia] 50 mg PO DAILY 01/04/22 01/04/22 History Allergies Allergy/AdvReac Type Severity Reaction Status Date / Time Cephalosporins Allergy Severe Anaphylaxis Verified 01/04/22 12:56 diphenhydramine HCl Allergy Severe Anaphylaxis Verified 01/04/22 12:56 [From Benadryl] divalproex sodium Allergy Severe Anaphylaxis Verified 01/04/22 12:56 [From Depakote] ceftriaxone [From Rocephin] Allergy Anaphylaxis Verified 01/04/22 12:56 cephalexin [From Keflex] Allergy Anaphylaxis Verified 01/04/22 12:56 droperidol Allergy Anaphylaxis Verified 01/04/22 12:56 lisinopril Allergy Anaphylaxis Verified 01/04/22 12:56 Physical Exam Vitals: Vital Signs Temp Pulse Pulse Resp BP BP Pulse Ox 01/04/22 06:24 97.8 F 111 H 16 129/84 100 01/04/22 04:17 96 16 145/92 99 01/04/22 02:03 107 H 18 133/101 98 01/03/22 22:21 98.1 F 124 H 18 116/79 98 Intake and Output 01/03/22 01/04/22 01/04/22 22:59 06:59 14:59 Output Total 300 Balance -300 Output: Emesis 300 Other: Weight 113.398 kg 113.398 kg PHYSICAL EXAMINATION: Patient is lying in the bed comfortably, no acute distress, awake alert and oriented. Seems lethargic... HEENT: Normocephalic. Neck is supple. Pupils reactive. Nostrils clear. Oral cavity is moist. Neck reveals no JVD, carotid bruits, or thyromegaly. CHEST EXAMINATION: Trachea is central. Symmetrical expansion. Lung llamas clear to auscultation and percussion. CARDIAC: Normal S1, S2 with no gallops. No murmurs ABDOMEN: Soft. Bowel sounds present. Nontender. No organomegaly. No abdominal bruits. Extremities: reveal no edema. No clubbing or cyanosis Neurologically awake, alert, oriented x3 with well-coordinated movements. No focal deficits noted Skin: No rash or skin lesions. Psychiatric: Coperative. Nonsuicidal, anxious. Musculoskeletal: No joint swelling or deformity. Normal range of motion. Results CBC & Chem 7: 01/03/22 23:26 01/03/22 23:26 Labs: Abnormal Lab Results - Last 24 Hours (Table) 01/03/22 Range/Units 23:26 Sodium 136 L (137-145) mmol/L Potassium 5.3 H (3.5-5.1) mmol/L Chloride 93 L (98-107) mmol/L Carbon Dioxide 21 L (22-30) mmol/L BUN 21 H (9-20) mg/dL Total Bilirubin 2.4 H (0.2-1.3) mg/dL AST 220 H (17-59) U/L ALT 127 H (4-49) U/L Total Protein 8.4 H (6.3-8.2) g/dL Albumin 5.4 H (3.5-5.0) g/dL Serum Alcohol 365 H* mg/dL Thrombosis Risk Factor Assmnt - DVT/VTE Prophylaxis DVT/VTE Prophylaxis: Mechanical Prophylaxis ordered - Choose All That Apply Any of the Below Risk Factors Present?: Yes Each Factor Represents 1 point: Age 41-60 years, Obesity (BMI >25) Other Risk Factors: Yes Other congenital or acquired thrombophilia - If yes, enter type in comment: Yes Thrombosis Risk Factor Assessment Total Risk Factor Score: 2 Thrombosis Risk Factor Assessment Level: Low Risk Assessment and Plan Assessment: Acute alcohol intoxication with alcohol level 365 Nausea vomiting and epigastric discomfort possible alcoholic gastritis Acute alcoholic hepatitis and mild hyperbilirubinemia Hypovolemic hyponatremia Mild hyperkalemia GERD Osteoarthritis Obstructive sleep apnea not on CPAP at home Spinal stenosis/herniated disc surgery. Anxiety/depression Previous history of smoking GI and DVT prophylaxis. Plan: Patient will be continued on IV hydration with normal saline. Symptomatic management for nausea and vomiting. Monitor H&H. Continue Protonix 40 mg IV daily. Follow-up CBC and BMP tomorrow. Continue to monitor for alcohol withdrawal symptoms and CIWA protocol. Patient was counseled extensively on alcohol cessation. Patient did have multiple prior admissions with similar complaints. Time with Patient: Greater than 30
[2022-01-05] MEDS: LORazepam 1 MG/0.5 ML VIAL IV PRN ×6 (04:10→21:55)
[2022-01-05] MEDS: traMADol 50 MG TAB PO PRN ×2 (04:11→23:29)
[2022-01-05] MEDS: PANTOPRAZOLE 40 MG/10 ML VIAL IV SCH (07:20)
[2022-01-05] MEDS: THIAMINE 100 MG TAB PO SCH ×2 (07:20→17:50)
[2022-01-05] MEDS: HEPARIN SODIUM,PORCINE/PF 5,000 UNIT/0.5 ML SYRINGE SQ SCH ×3 (07:20→23:30)
[2022-01-05 09:34] LABS: Basophils # (A) 0.02 X 10*3/uL (0.00-0.10); Basophils % (A) 0.3 %; Eosinophils # (A) 0.01 X 10*3/uL (0.04-0.35); Eosinophils % (A) 0.1 %; HCT 38.1 % (39.6-50.0); HGB 12.5 g/dL (13.0-17.0); Immature Grans, Automated 0.1 %; Lymphocytes # (A) 1.55 X 10*3/uL (0.90-5.00); Lymphocytes % (A) 23.1 %; MCH 28.9 pg (27.0-32.0); MCHC 32.8 g/dL (32.0-37.0); Mean Platelet Volume 10.4 fL (9.5-12.2); Monocytes # (A) 0.38 X 10*3/uL (0.20-1.00); Monocytes % (A) 5.7 %; NRBC Per 100 WBC 0 /100 WBCS (0.0-0.0); Neutrophils # (A) 4.74 X 10*3/uL (1.80-7.70); Neutrophils % (A) 70.7 %; Platelet Count 139 X 10*3/uL (140-440); RBC 4.33 X 10*6/uL (4.40-5.60); RDW 12.6 % (11.5-14.5); WBC 6.71 X 10*3/uL (4.50-10.00)
[2022-01-05 09:53] LABS: African American GFR (CKD) 122.4 (60.0-200.0); Anion Gap 12.8 mmol/L (10.00-18.00); BUN/Creat Ratio 18.25 Ratio (12.00-20.00); Blood Urea Nitrogen 14.6 mg/dL (9.0-27.0); Carbon Dioxide 29.2 mmol/L (20.0-27.5); Non-African American GFR(CKD) 105.6 (60.0-200.0)
[2022-01-05] MEDS: SODIUM CHLORIDE 0.9% 1,000 ML IV SCH (10:35)
[2022-01-05 10:57] LABS: Appearance,Urine Clear (Clear); Bilirubin,Urine Negative (Negative); Blood,Urine Negative (Negative); Color,Urine Yellow; Glucose,Urine (UA) Negative (Negative); Ketones,Urine Negative (Negative); Leukocyte Esterase,Urine Negative (Negative); Nitrite,Urine Negative (Negative); PH, Urine 6.5 (5.0-8.0); Protein,Urine Negative (Negative); Urobilinogen,Urine <2.0 mg/dL (<2.0)
--- NOTE | 2022-01-05 23:51 | P.PN ---
Subjective Progress Note Date: 01/05/22 Patient is a 46-year-old male with a known history of alcohol abuse and previous admissions with alcohol intoxication, hypertension, alcoholic liver disease, GERD, osteoarthritis, obstructive sleep apnea not using CPAP at home, history of upper GI bleed, anxiety/depression and previous history of smoking and daily alcohol use presents to ER with acute alcohol intoxication. Patient states that he has been having nausea vomiting and epigastric abdominal pain. Vomitus is mainly bilious and occasional coffee-ground color. Patient states that he was in the rehab 3 weeks ago and started back on drinking again about half gallon a day. Denies any complaints of chest pain or shortness of breath. No fever no chills. Laboratory data showed WBC 9.0 hemoglobin 16.0 and platelets 255 Sodium 136 potassium 5.3 chloride 93 bicarb is 21 BUN 21 creatinine 0.88 bilirubin level is 2.4 AST 28 ALT 127 alk phos 66 and lipase 97 and serum alcohol level is 365. 01/05/2022 Patient is resting in bed. Drowsy and lethargic and weak. Complains of nausea and episodes of vomiting. Unable to tolerate oral diet. No fever no chills. No chest pain. Abdominal pain improved. Patient states that she is still shaking. No cough or sputum production. Laboratory test showed WBC 6.7 hemoglobin 12.5 and platelets 139 Sodium 136 potassium 4.0 chloride 94 bicarb is 29.2 BUN 14.6 and creatinine 0.8 Urinalysis is negative for infection. Patient is being continued on alcohol withdrawal protocol Current medications reviewed. Objective - Vital Signs Vital signs: Vital Signs Temp 98.7 F 01/05/22 20:00 Pulse 83 01/05/22 20:00 Resp 16 01/05/22 20:00 BP 140/71 01/05/22 20:00 Pulse Ox 97 01/05/22 20:00 FiO2 Intake & Output 01/05/22 01/05/22 01/06/22 06:59 18:59 06:59 Output Total 700 Balance -700 Output: Urine 700 Other: Voiding Method Toilet # Voids 1 5 - Exam PHYSICAL EXAMINATION: Patient is lying in the bed comfortably, no acute distress, awake alert and oriented. Seems lethargic... HEENT: Normocephalic. Neck is supple. Pupils reactive. Nostrils clear. Oral cavity is moist. Neck reveals no JVD, carotid bruits, or thyromegaly. CHEST EXAMINATION: Trachea is central. Symmetrical expansion. Lung llamas clear to auscultation and percussion. CARDIAC: Normal S1, S2 with no gallops. No murmurs ABDOMEN: Soft. Bowel sounds present. Nontender. No organomegaly. No abdominal bruits. Extremities: reveal no edema. No clubbing or cyanosis Neurologically awake, alert, oriented x3 with well-coordinated movements. No focal deficits noted Skin: No rash or skin lesions. Psychiatric: Coperative. Nonsuicidal, anxious. Musculoskeletal: No joint swelling or deformity. Normal range of motion. - Labs CBC & Chem 7: 01/05/22 06:07 01/05/22 06:07 Labs: Abnormal Lab Results - Last 24 Hours (Table) 01/05/22 01/05/22 Range/Units 06:07 06:07 RBC 4.33 L (4.40-5.60) X 10*6/uL Hgb 12.5 L (13.0-17.0) g/dL Hct 38.1 L (39.6-50.0) % Plt Count 139 L (140-440) X 10*3/uL Eosinophils # 0.01 L (0.04-0.35) X 10*3/uL Chloride 94 L (96-109) mmol/L Carbon Dioxide 29.2 H (20.0-27.5) mmol/L Assessment and Plan Assessment: Acute alcohol intoxication with alcohol level 365 Nausea vomiting and epigastric discomfort possible alcoholic gastritis Acute alcoholic hepatitis and mild hyperbilirubinemia Hypovolemic hyponatremia Mild hyperkalemia GERD Osteoarthritis Obstructive sleep apnea not on CPAP at home Spinal stenosis/herniated disc surgery. Anxiety/depression Previous history of smoking GI and DVT prophylaxis. Plan: Patient will be continued on IV hydration with normal saline. Symptomatic management for nausea and vomiting. Monitor H&H. Continue Protonix 40 mg IV daily. Follow-up CBC and BMP tomorrow. Continue to monitor for alcohol withdrawal symptoms and CIWA protocol. Patient was counseled extensively on alcohol cessation. Patient did have multiple prior admissions with similar complaints. Time with Patient: Greater than 30
[2022-01-06] MEDS: ONDANSETRON 4 MG/2 ML VIAL IVP PRN (01:53)
[2022-01-06] MEDS: SODIUM CHLORIDE 0.9% 1,000 ML IV SCH (04:04)
[2022-01-06] MEDS: PANTOPRAZOLE 40 MG/10 ML VIAL IV SCH (07:08)
[2022-01-06] MEDS: THIAMINE 100 MG TAB PO SCH (07:08)
[2022-01-06] MEDS: LORazepam 1 MG/0.5 ML VIAL IV PRN ×2 (07:08→10:25)
[2022-01-06] MEDS: HEPARIN SODIUM,PORCINE/PF 5,000 UNIT/0.5 ML SYRINGE SQ SCH (07:11)
[2022-01-06 08:07] VITALS: BP 137/87; PULSE 82; RESP 18; TEMP 98.4
[2022-01-06 09:31] LABS: African American GFR (CKD) 116.6 (60.0-200.0); Albumin 4.3 g/dL (3.8-4.9); Albumin/Globulin Ratio 2.15 (1.60-3.17); Anion Gap 11.7 mmol/L (10.00-18.00); BUN/Creat Ratio 14.89 Ratio (12.00-20.00); Blood Urea Nitrogen 13.4 mg/dL (9.0-27.0); Calcium 9.3 mg/dL (8.7-10.3); Carbon Dioxide 30.3 mmol/L (20.0-27.5); Non-African American GFR(CKD) 100.6 (60.0-200.0); Potassium 4.1 mmol/L (3.5-5.5); Total Bilirubin 2.9 mg/dL (0.30-1.20); Total Protein 6.3 g/dL (6.2-8.2)
[2022-01-06 09:49] LABS: HCT 37.5 % (39.6-50.0); HGB 12.4 g/dL (13.0-17.0); MCH 29.9 pg (27.0-32.0); MCHC 33.1 g/dL (32.0-37.0); MCV 90.4 fL (80.0-97.0); Mean Platelet Volume 10.6 fL (9.5-12.2); NRBC Per 100 WBC 0 /100 WBCS (0.0-0.0); Platelet Count 107 X 10*3/uL (140-440); RBC 4.15 X 10*6/uL (4.40-5.60); RDW 12.6 % (11.5-14.5); WBC 5.01 X 10*3/uL (4.50-10.00)
[2022-01-06 10:21] LABS: Basophils # (A) 0.02 X 10*3/uL (0.00-0.10); Basophils % (A) 0.4 %; Eosinophils # (A) 0.08 X 10*3/uL (0.04-0.35); Eosinophils % (A) 1.6 %; Immature Grans, Automated 0.2 %; Lymphocytes # (A) 2.06 X 10*3/uL (0.90-5.00); Lymphocytes % (A) 41.1 %; Monocytes # (A) 0.35 X 10*3/uL (0.20-1.00); Neutrophils # (A) 2.49 X 10*3/uL (1.80-7.70); Neutrophils % (A) 49.7 %; RBC Morphology NORMAL
[2022-01-06] MEDS: traMADol 50 MG TAB PO PRN (10:25)
--- NOTE | 2022-01-06 22:53 | P.DS ---
Providers Date of admission: 01/04/22 00:32 Attending physician: Alma Hansen MD Primary care physician: Veena Bynum Hospital Course: Diagnosis Acute alcohol intoxication with alcohol level 365 Nausea vomiting and epigastric discomfort possible alcoholic gastritis Acute alcoholic hepatitis and mild hyperbilirubinemia Hypovolemic hyponatremia Mild hyperkalemia GERD Osteoarthritis Obstructive sleep apnea not on CPAP at home Spinal stenosis/herniated disc surgery. Anxiety/depression Previous history of smoking GI and DVT prophylaxis. Full Code Discharge disposition Patient stable for discharge. He is alert and oriented. He has no visible tremors on examination. He is tolerating diet. Patient will be discharge on oral librium taper he is educated on total alcohol cessation. He just finished rehab for alcohol abuse prior to admission and relapsed. Recommend follow up with PCP in 2 to 3 days and also repeat labs outpatient in 2 to 3 days. Hospital course Patient is a 46-year-old male with a known history of alcohol abuse and previous admissions with alcohol intoxication, hypertension, alcoholic liver disease, GERD, osteoarthritis, obstructive sleep apnea not using CPAP at home, history of upper GI bleed, anxiety/depression and previous history of smoking and daily alcohol use presents to ER with acute alcohol intoxication. Patient presents with nausea vomiting and epigastric discomfort on admission. He does report bilious emesis with occasional coffee ground color. He was in rehab 3 weeks ago and began drinking a half gallon a day recently. No chest pain, no shortness of breath. On admission serum alcohol found to be 365. Sodium 136 potassium 5.3 chloride 93 bicarb is 21 BUN 21 creatinine 0.88 bilirubin level is 2.4 AST 28 ALT 127 alk phos 66 and lipase 97. White count 9.0, hgb 16.0, platelets 255. Patient received IV hydration and was started on CIWA protocol with oral ativan and librium taper. No further episodes of emesis and he is tolerating some diet. Abdominal pain has improved he has no epigastric tenderness on examination. Urinalysis negative for infection. Hemoglobin did drop to 12.5, platelet count 107, no evidence for acute bleeding, no melena, cesar rectal bleeding, no hematemsis or coffee ground emesis during hospital stay. Hemoglobin remained stable at 12.4. Electrolytes have normalized, sodium 139, potassium 4.1, BUN 13.4, creatinine 0.9, AST/ALT stable, alk phos within normal limits. Patient has remained afebrile, heart rate 82, blood pressure 137/87, 100% room air. 01/06/2022 Patient evaluated today resting in bed. He has continued on IV fluids, labs have normalized today. He had a dose of oral ativan last night at 2100 and again this morning. He has no visible tremors on exam, no diaphoresis, states he is tolerating some diet. He does report urinary frequency to where he feels he might not make it to the bathroom. Urinalysis is negative, no urinary retention. If continues would recommend urology consultation outpatient. Patient plans to go back to [place] for rehab. States he doesn't know why he began drinking again. Hemodynamically stable today. Patient will be discharged home on oral librium taper. Review of Systems Constitutional: Denied any fatigue denied any fever. Cardio vascular: denied any chest pain, palpitations Gastrointestinal: denied any vomiting, no diarrhea, reports mild nausea, no abdominal pain Pulmonary: Denied any shortness of breath cough Neurologic denied any new focal deficits All inpatient medications were reviewed and appropriate changes in these medications as dictated in the interval history and assessment and plan. PHYSICAL EXAMINATION: GENERAL: The patient is alert and oriented x3, not in any acute distress. Well developed, well nourished. HEENT: Pupils are round and equally reacting to light. EOMI. No scleral icterus. No conjunctival pallor. Normocephalic, atraumatic. No pharyngeal erythema. No thyromegaly. CARDIOVASCULAR: S1 and S2 present. No murmurs, rubs, or gallops. PULMONARY: Chest is clear to auscultation, no wheezing or crackles. ABDOMEN: Soft, nontender, nondistended, normoactive bowel sounds. No palpable organomegaly. MUSCULOSKELETAL: No joint swelling or deformity. EXTREMITIES: No cyanosis, clubbing, or pedal edema. NEUROLOGICAL: Gross neurological examination did not reveal any focal deficits. SKIN: No rashes. Please see medication reconciliation for list of current medications. Thank you for allowing us participate in the care of this patient. Total time taken in discharge planning greater than 35 minutes The impression and plan of care has been dictated by Alvina Nagy Nurse Practitioner as directed. Dr. Melvi MD I have performed a history and physical examination and medical decision making of this patient, discussed the same with the dictator, and agree with the dictators assessment and plan as written, documented as a scribe. Based on total visit time, I have performed more than 50% of this visit. Patient Condition at Discharge: Fair Plan - Discharge Summary New Discharge Prescriptions: New chlordiazePOXIDE HCl [Librium] 0 mg PO DIRECTED 6 Days #12 capsule Thiamine [Vitamin B-1] 100 mg PO BID-W/MEALS #60 tab Continue Fluticasone Nasal [place] [Flonase Nasal [place]] 2 spr EA NOSTRIL BID Magnesium Oxide [Mag-Ox] 400 mg PO TID 30 Days #90 tab Acamprosate Calcium [Campral] 666 mg PO TID #90 tablet Nicotine 14Mg/24Hr Patch [Habitrol] 1 patch TRANSDERM DAILY PRN #28 patch PRN Reason: Nicotine Cravings Gabapentin [Neurontin] 600 mg PO TID #120 cap Cholecalciferol [Vitamin D3 (25 Mcg = 1000 Iu)] 25 mcg PO DAILY Acetaminophen Tab [Tylenol] 650 mg PO Q6HR PRN tab PRN Reason: Fever And/ Or Pain Loperamide [Imodium] 2 mg PO QID PRN cap PRN Reason: Diarrhea Multivitamins, Thera [Multivitamin (formulary)] 1 tab PO DAILY Discontinued Naltrexone HCl [Revia] 50 mg PO DAILY Losartan [Cozaar] 50 mg PO DAILY Discharge Medication List Fluticasone Nasal [place] [Flonase Nasal [place]] 2 spr EA NOSTRIL BID 10/11/19 [History] Magnesium Oxide [Mag-Ox] 400 mg PO TID 30 Days #90 tab 08/06/21 [Rx] Cholecalciferol [Vitamin D3 (25 Mcg = 1000 Iu)] 25 mcg PO DAILY 10/02/21 [History] Acetaminophen Tab [Tylenol] 650 mg PO Q6HR PRN tab 10/15/21 [Rx] Loperamide [Imodium] 2 mg PO QID PRN cap 10/31/21 [Rx] Acamprosate Calcium [Campral] 666 mg PO TID #90 tablet 11/03/21 [Rx] Gabapentin [Neurontin] 600 mg PO TID #120 cap 11/03/21 [Rx] Nicotine 14Mg/24Hr Patch [Habitrol] 1 patch TRANSDERM DAILY PRN #28 patch 11/03/21 [Rx] Multivitamins, Thera [Multivitamin (formulary)] 1 tab PO DAILY 01/04/22 [History] Thiamine [Vitamin B-1] 100 mg PO BID-W/MEALS #60 tab 01/06/22 [Rx] chlordiazePOXIDE HCl [Librium] 0 mg PO DIRECTED 6 Days #12 capsule 01/06/22 [Rx] Follow up Appointment(s)/Referral(s): Veena Bynum DO [Primary Care Provider] - 01/10/22 2:20 pm Ambulatory/Diagnostic Orders: Complete Blood Count w/diff [LAB.AMB] Time Frame: 2 Days, Location: None Selected Patient Instructions/Handouts: Abuse of Alcohol (DC) Activity/Diet/Wound Care/Special Instructions: Recommend total alcohol cessation Do not drink alcohol while using librium Discharge Disposition: HOME SELF-CARE
== END 2022-01-06 14:34 | disposition home or self-care (01) | DRG 897 ==
LOC: EC 22:18 → OBSVTOIN 01-04 00:32 → 6NMEDSUR 01-04 00:32 → 4SSUR 01-04 05:06 → UNDODISOB 01-06 14:34
PROVIDERS: ADMIT Internal Medicine; ATTEND Internal Medicine
PROC: HZ2ZZZZ Detoxification Services for Substance Abuse Treatment (ICD-10-PCS; principal; 2022-01-04)
DX: F10.229 Alcohol dependence with intoxication, unspecified (principal); E87.1 Hypo-osmolality and hyponatremia; K29.20 Alcoholic gastritis without bleeding; Y90.8 Blood alcohol level of 240 mg/100 ml or more; E87.5 Hyperkalemia; F32.A Depression, unspecified; F41.9 Anxiety disorder, unspecified; G40.909 Epilepsy, unspecified, not intractable, without status epilepticus; G47.33 Obstructive sleep apnea (adult) (pediatric); I83.93 Asymptomatic varicose veins of bilateral lower extremities; I10 Essential (primary) hypertension; E86.1 Hypovolemia; E83.42 Hypomagnesemia; E80.6 Other disorders of bilirubin metabolism; K21.9 Gastro-esophageal reflux disease without esophagitis; K70.9 Alcoholic liver disease, unspecified; M19.90 Unspecified osteoarthritis, unspecified site; Z79.1 Long term (current) use of non-steroidal anti-inflammatories (NSAID); Z79.899 Other long term (current) drug therapy; Z80.8 Family history of malignant neoplasm of other organs or systems; Z82.0 Family history of epilepsy and other diseases of the nervous system; Z82.49 Family history of ischemic heart disease and other diseases of the circulatory system; Z87.891 Personal history of nicotine dependence; Z88.1 Allergy status to other antibiotic agents; Z88.8 Allergy status to other drugs, medicaments and biological substances; Z87.19 Personal history of other diseases of the digestive system
CPT/HCPCS: 36415; 80048; 80053; 80320; 81003; 83690; 85025; 96361; 96372; 96374; 96375; 96376; 99285

== ENCOUNTER 2022-01-07 05:57 | Inpatient (IN) | payer OTHER ==
[2022-01-07] MEDS ORDERED: THIAMINE 100 MG/ML 2 ML VIAL IM STA (06:12)
[2022-01-07] MEDS ORDERED: MIDAZOLAM 1 MG/ML 5 ML VIAL IV PRN ×3 (06:29→06:37)
[2022-01-07 06:34] LABS: Basophils % (A) 1 %; Eosinophils # (A) 0.1 k/uL (0-0.7); Eosinophils % (A) 2 %; HCT 40.5 % (39.0-53.0); HGB 13.1 gm/dL (13.0-17.5); Lymphocytes # (A) 2.6 k/uL (1.0-4.8); Lymphocytes % (A) 50 %; MCH 29.6 pg (25.0-35.0); MCHC 32.2 g/dL (31.0-37.0); Mean Platelet Volume 7.6; Monocytes # (A) 0.3 k/uL (0-1.0); Monocytes % (A) 6 %; Neutrophils % (A) 38 %; Platelet Count 133 k/uL (150-450); RBC 4.41 m/uL (4.30-5.90); RDW 12.6 % (11.5-15.5); WBC 5.2 k/uL (3.8-10.6)
[2022-01-07 06:43] LABS: ALT 149 U/L (4-49); AST 217 U/L (17-59); African American GFR (CKD) >90 (>60 ml/min/1.73 sqM); Albumin 4.8 g/dL (3.5-5.0); Alkaline Phosphatase 62 U/L (38-126); Amylase 70 U/L (30-110); Anion Gap 9 mmol/L; Blood Urea Nitrogen 12 mg/dL (9-20); Calcium 9.9 mg/dL (8.4-10.2); Carbon Dioxide 31 mmol/L (22-30); Chloride 103 mmol/L (98-107); Glucose 93 mg/dL (74-99); Lipase 117 U/L (23-300); Non-African American GFR(CKD) >90 (>60 ml/min/1.73 sqM); Potassium 4.6 mmol/L (3.5-5.1); Sodium 143 mmol/L (137-145); Total Bilirubin 1.2 mg/dL (0.2-1.3); Total Protein 7.6 g/dL (6.3-8.2)
[2022-01-07 06:52] LABS: Alcohol 337 mg/dL
--- NOTE | 2022-01-07 06:53 | ED ---
Alcohol HPI - General Chief Complaint: Alcohol Stated Complaint: ETOH Time Seen by Provider: 01/07/22 06:02 Source: EMS, RN notes reviewed Mode of arrival: EMS Limitations: no limitations - History of Present Illness Initial Comments: This is a 46-year-old male who presents to the emergency department for alcohol intoxication. Per EMS, he was found on the ground in his house with an empty fifth of vodka. He was discharged here yesterday after a 2 day admission for alcohol intoxication. Patient is visibly intoxicated on physical examination and unable to provide reliable history. MD Complaint: alcohol intoxication Last Drink: unknown Previous Visits for Alcohol Intoxication?: Yes Chronic Alcohol Use: Yes - Related Data Home Medications Medication Instructions Recorded Confirmed Fluticasone Nasal [place] [Flonase 2 spr EA NOSTRIL BID 10/11/19 01/07/22 Nasal [place]] Cholecalciferol [Vitamin D3 (25 25 mcg PO DAILY 10/02/21 01/07/22 Mcg = 1000 Iu)] Multivitamins, Thera [Multivitamin 1 tab PO DAILY 01/04/22 01/07/22 (formulary)] chlordiazePOXIDE HCl [Librium] See Taper PO DIRECTED 01/07/22 01/07/22 Previous Rx's Medication Instructions Recorded Magnesium Oxide [Mag-Ox] 400 mg PO TID 30 Days #90 tab 08/06/21 Acetaminophen Tab [Tylenol] 650 mg PO Q6HR PRN tab 10/15/21 Loperamide [Imodium] 2 mg PO QID PRN cap 10/31/21 Acamprosate Calcium [Campral] 666 mg PO TID #90 tablet 11/03/21 Gabapentin [Neurontin] 600 mg PO TID #120 cap 11/03/21 Nicotine 14Mg/24Hr Patch [Habitrol] 1 patch TRANSDERM DAILY PRN #28 11/03/21 patch Thiamine [Vitamin B-1] 100 mg PO BID-W/MEALS #60 tab 01/06/22 Allergies Allergy/AdvReac Type Severity Reaction Status Date / Time Cephalosporins Allergy Severe Anaphylaxis Verified 01/04/22 12:56 diphenhydramine HCl Allergy Severe Anaphylaxis Verified 01/04/22 12:56 [From Benadryl] divalproex sodium Allergy Severe Anaphylaxis Verified 01/04/22 12:56 [From Depakote] ceftriaxone [From Rocephin] Allergy Anaphylaxis Verified 01/04/22 12:56 cephalexin [From Keflex] Allergy Anaphylaxis Verified 01/04/22 12:56 droperidol Allergy Anaphylaxis Verified 01/04/22 12:56 lisinopril Allergy Anaphylaxis Verified 01/04/22 12:56 Review of Systems ROS Statement: Those systems with pertinent positive or pertinent negative responses have been documented in the HPI. ROS Other: All systems not noted in ROS Statement are negative. Past Medical History Past Medical History: GERD/Reflux, GI Bleed, Hypertension, Liver Disease, Osteoarthritis (OA), Pneumonia, Seizure Disorder, Sleep Apnea/CPAP/BIPAP, Vascular Disorder Additional Past Medical History / Comment(s): Pt recently admitted to [facility] on 07/26/21 with alcohol intoxication/abuse/fall/marijuana abuse. Other hx: Occasional bilateral pedal edema if stands long, arthritis possibly in back/ribs, MILIND without device, ETOH abuse, alcoholic seizures/blackouts/fainting 2016, alcoholic hepatitis, alcoholic gastritis, upper GI bleed, hypomagnesemia, spinal stenosis/herniated disc with surgery, bilateral varicose veins, hemorrhoids, stated on a sun for 2 weeks patient was drinking 1/2 gallon of vodka a day january 03. pt stoppped aprox 01/02/2022 History of Any Multi-Drug Resistant Organisms: None Reported Past Surgical History: Appendectomy, Back Surgery, Tonsillectomy Additional Past Surgical History / Comment(s): bilateral discectomy, discectomy L5-S1, EGD Past Anesthesia/Blood Transfusion Reactions: Motion Sickness Past Psychological History: Anxiety, Depression Smoking Status: Former smoker Past Alcohol Use History: Abuse, Heavy Past Drug Use History: Marijuana - Past Family History Father Family Medical History: Cancer, Dementia, Neurologic Disorder Additional Family Medical History / Comment(s): melanoma, parkinsons, schizophrenic Mother Family Medical History: Hypertension, Musculoskeletal Disorder, Neurologic Disorder, Osteoarthritis (OA) Additional Family Medical History / Comment(s): Mother of motor neuron disease at the age of 78yrs. General Exam General appearance: appears intoxicated Head exam: Present: atraumatic, normocephalic, normal inspection Respiratory exam: Present: normal lung sounds bilaterally. Absent: respiratory distress, wheezes, rales, rhonchi, stridor Cardiovascular Exam: Present: regular rate, normal rhythm, normal heart sounds. Absent: systolic murmur, diastolic murmur, rubs, gallop, clicks Skin exam: Present: warm, dry, intact, normal color. Absent: rash Course Vital Signs 01/07/22 01/07/22 01/07/22 05:57 07:55 08:38 Temperature 97.4 F L Pulse Rate 80 82 71 Respiratory 20 18 18 Rate Blood Pressure 121/83 127/80 116/68 O2 Sat by Pulse 97 97 Oximetry 01/07/22 09:31 Temperature 98.4 F Pulse Rate 78 Respiratory 18 Rate Blood Pressure 106/70 O2 Sat by Pulse 97 Oximetry Medical Decision Making - Medical Decision Making This is a 46-year-old male who presents to the emergency department for alcohol intoxication. Patient started on CIWA protocol and given a banana bag. Alcohol level was 337, which meets criteria for admission. Patient admitted to medicine for further management. I spoke with the admitting team, who requested that the patient not be given any more Ativan, and the CIWA protocol was discontinued as requested. This case was discussed in detail with the attending ED physician. Presentation, findings, and treatment plan discussed in detail as well. - Lab Data Result diagrams: 01/07/22 06:22 01/07/22 06:22 Lab Results 01/07/22 01/07/22 01/07/22 Range/Units 06:22 06:22 07:03 WBC 5.2 (3.8-10.6) k/uL RBC 4.41 (4.30-5.90) m/uL Hgb 13.1 (13.0-17.5) gm/dL Hct 40.5 (39.0-53.0) % MCV 92.0 (80.0-100.0) fL MCH 29.6 (25.0-35.0) pg MCHC 32.2 (31.0-37.0) g/dL RDW 12.6 (11.5-15.5) % Plt Count 133 L (150-450) k/uL MPV 7.6 Neutrophils % 38 % Lymphocytes % 50 % Monocytes % 6 % Eosinophils % 2 % Basophils % 1 % Neutrophils # 2.0 (1.3-7.7) k/uL Lymphocytes # 2.6 (1.0-4.8) k/uL Monocytes # 0.3 (0-1.0) k/uL Eosinophils # 0.1 (0-0.7) k/uL Basophils # 0.0 (0-0.2) k/uL Sodium 143 (137-145) mmol/L Potassium 4.6 (3.5-5.1) mmol/L Chloride 103 (98-107) mmol/L Carbon Dioxide 31 H (22-30) mmol/L Anion Gap 9 mmol/L BUN 12 (9-20) mg/dL Creatinine 0.72 (0.66-1.25) mg/dL Est GFR (CKD-EPI)AfAm >90 (>60 ml/min/1.73 sqM) Est GFR (CKD-EPI)NonAf >90 (>60 ml/min/1.73 sqM) Glucose 93 (74-99) mg/dL Calcium 9.9 (8.4-10.2) mg/dL Total Bilirubin 1.2 (0.2-1.3) mg/dL AST 217 H (17-59) U/L ALT 149 H (4-49) U/L Alkaline Phosphatase 62 (38-126) U/L Total Protein 7.6 (6.3-8.2) g/dL Albumin 4.8 (3.5-5.0) g/dL Amylase 70 (30-110) U/L Lipase 117 (23-300) U/L Urine Color Colorless Urine Appearance Clear (Clear) Urine pH 5.5 (5.0-8.0) Ur Specific [place] 1.003 (1.001-1.035) Urine Protein Negative (Negative) Urine Glucose (UA) Negative (Negative) Urine Ketones Negative (Negative) Urine Blood Negative (Negative) Urine Nitrite Negative (Negative) Urine Bilirubin Negative (Negative) Urine Urobilinogen <2.0 (<2.0) mg/dL Ur Leukocyte Esterase Negative (Negative) Urine Opiates Screen Not Detected (NotDetected) Ur Oxycodone Screen Not Detected (NotDetected) Urine Methadone Screen Not Detected (NotDetected) Ur Propoxyphene Screen Not Detected (NotDetected) Ur Barbiturates Screen Not Detected (NotDetected) U Tricyclic Antidepress Not Detected (NotDetected) Ur Phencyclidine Scrn Not Detected (NotDetected) Ur Amphetamines Screen Not Detected (NotDetected) U Methamphetamines Scrn Not Detected (NotDetected) U Benzodiazepines Scrn Detected H (NotDetected) Urine Cocaine Screen Not Detected (NotDetected) U Marijuana (THC) Screen Detected H (NotDetected) Serum Alcohol 337 H* mg/dL Disposition Clinical Impression: Alcohol intoxication Disposition: ADMITTED IP TO THIS HOSP
[2022-01-07] MEDS ORDERED: SODIUM CHLORIDE 0.9% 1,000 ML with MVI, ADULT NO.4 WITH VIT K 10 ML, THIAMINE 100 MG, F... IV ONE ×4 (07:00)
[2022-01-07 07:12] LABS: Appearance,Urine Clear (Clear); Bilirubin,Urine Negative (Negative); Blood,Urine Negative (Negative); Color,Urine Colorless; Glucose,Urine (UA) Negative (Negative); Ketones,Urine Negative (Negative); Leukocyte Esterase,Urine Negative (Negative); Nitrite,Urine Negative (Negative); PH, Urine 5.5 (5.0-8.0); Protein,Urine Negative (Negative); Specific Gravity,Urine 1.003 (1.001-1.035); Urobilinogen,Urine <2.0 mg/dL (<2.0)
[2022-01-07] MEDS ORDERED: LORazepam 2 MG/ML INJ IV PRN ×3 (07:25)
[2022-01-07 07:27] LABS: Amphetamine Screen,Urine Not Detected (NotDetected); Barbiturate Screen,Urine Not Detected (NotDetected); Benzodiazepines Screen,Urine Detected (NotDetected); Cocaine Screen,Urine Not Detected (NotDetected); Methadone Screen, Urine Not Detected (NotDetected); Opiate Screen,Urine Not Detected (NotDetected); Oxycodone Screen, Urine Not Detected (NotDetected); Phencyclidine Screen,Urine Not Detected (NotDetected); Tricyclic Antidepressant,Urine Not Detected (NotDetected); Urn Cannabinoid Scrn Detected (NotDetected)
[2022-01-07 07:56] VITALS: RESP 18
[2022-01-07] MEDS ORDERED: ONDANSETRON 4 MG/2 ML VIAL IVP STA (08:21)
[2022-01-07] MEDS ORDERED: KETOROLAC 15 MG/ML 1 ML VIAL IVP PRN (08:53)
[2022-01-07] MEDS ORDERED: NALOXONE 0.4 MG/ML 1 ML VIAL IV PRN (08:53)
[2022-01-07] MEDS ORDERED: ONDANSETRON 4 MG/2 ML VIAL IVP PRN (08:53)
[2022-01-07] MEDS ORDERED: IBUPROFEN 400 MG TAB PO PRN (08:53)
[2022-01-07 11:25] VITALS: BP 115/73; PULSE 82; TEMP 97.4
--- NOTE | 2022-01-07 12:22 | P.HPIM ---
History of Present Illness 46-year-old male is being admitted for alcohol intoxication and was asked by ER physician to admit because the patient is still intoxicated alcohol levels of around 300 patient was discharged yesterday. Patient has multiple hospital izations multiple, counseling sessions and multiple visits to alcohol cessation programs and multiple psychiatric facility had admissions. [facility] also [facility] Patient is still drowsy and able to provide any history to me. Drug screen is positive for marijuana REVIEW OF SYSTEMS: Not able to obtain much of the history as patient is still drowsy PHYSICAL EXAMINATION: GENERAL: Drowsy intoxicated HEENT: Pupils are round and equally reacting to light. EOMI. No scleral icterus. No conjunctival pallor. Normocephalic, atraumatic. No pharyngeal erythema. No thyromegaly. CARDIOVASCULAR: S1 and S2 present. No murmurs, rubs, or gallops. PULMONARY: Chest is clear to auscultation, no wheezing or crackles. ABDOMEN: Soft, nontender, nondistended, normoactive bowel sounds. No palpable organomegaly. MUSCULOSKELETAL: No joint swelling or deformity. EXTREMITIES: No cyanosis, clubbing, or pedal edema. NEUROLOGICAL: Limited SKIN: No rashes. Assessment and plan Alcohol intoxication: Once patient is sober and patient will be discharged today there is no benefit in keeping the patient here in treating for alcohol withdrawals patient was recently discharged from psychiatric facility because of which are don't expect any withdrawals either. Patient was discharged from my service yesterday comes back again with alcohol intoxication. Multiple attempts to help him with alcohol abuse were unsuccessful nothing much can be offered to the patient by hospitalizing him. 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 Other hx: Occasional bilateral pedal edema if stands long, arthritis possibly in back/ribs, MILIND without device, ETOH abuse, alcoholic seizures/blackouts/fainting 2017, alcoholic hepatitis, alcoholic gastritis, upper GI bleed, hypomagnesemia, spinal stenosis/herniated disc with surgery, bilateral varicose veins, hemorrhoids, stated on a sun for 2 weeks patient was drinking 1/2 gallon of vodka a day january 03. pt stoppped aprox 01/02/2022 History of Any Multi-Drug Resistant Organisms: None Reported Past Surgical History: Appendectomy, Back Surgery, Tonsillectomy Additional Past Surgical History / Comment(s): bilateral discectomy, discectomy L5-S1, EGD Past Anesthesia/Blood Transfusion Reactions: Motion Sickness Past Psychological History: Anxiety, Depression Smoking Status: Former smoker Past Alcohol Use History: Abuse, Heavy Past Drug Use History: Marijuana - Past Family History Father Family Medical History: Cancer, Dementia, Neurologic Disorder Additional Family Medical History / Comment(s): melanoma, parkinsons, schizophrenic Mother Family Medical History: Hypertension, Musculoskeletal Disorder, Neurologic Disorder, Osteoarthritis (OA) Additional Family Medical History / Comment(s): Mother of motor neuron disease at the age of 78yrs. Medications and Allergies Home Medications Medication Instructions Recorded Confirmed Type Fluticasone Nasal [place] [Flonase 2 spr EA NOSTRIL BID 10/11/19 01/07/22 History Nasal [place]] Magnesium Oxide [Mag-Ox] 400 mg PO TID 30 Days #90 tab 08/06/21 01/07/22 Rx Cholecalciferol [Vitamin D3 (25 25 mcg PO DAILY 10/02/21 01/07/22 History Mcg = 1000 Iu)] Acetaminophen Tab [Tylenol] 650 mg PO Q6HR PRN tab 10/15/21 01/07/22 Rx Loperamide [Imodium] 2 mg PO QID PRN cap 10/31/21 01/07/22 Rx Acamprosate Calcium [Campral] 666 mg PO TID #90 tablet 11/03/21 01/07/22 Rx Gabapentin [Neurontin] 600 mg PO TID #120 cap 11/03/21 01/07/22 Rx Nicotine 14Mg/24Hr Patch [Habitrol] 1 patch TRANSDERM DAILY PRN #28 11/03/21 01/07/22 Rx patch Multivitamins, Thera [Multivitamin 1 tab PO DAILY 01/04/22 01/07/22 History (formulary)] Thiamine [Vitamin B-1] 100 mg PO BID-W/MEALS #60 tab 01/06/22 01/07/22 Rx chlordiazePOXIDE HCl [Librium] See Taper PO DIRECTED 01/07/22 01/07/22 History Allergies Allergy/AdvReac Type Severity Reaction Status Date / Time Cephalosporins Allergy Severe Anaphylaxis Verified 01/04/22 12:56 diphenhydramine HCl Allergy Severe Anaphylaxis Verified 01/04/22 12:56 [From Benadryl] divalproex sodium Allergy Severe Anaphylaxis Verified 01/04/22 12:56 [From Depakote] ceftriaxone [From Rocephin] Allergy Anaphylaxis Verified 01/04/22 12:56 cephalexin [From Keflex] Allergy Anaphylaxis Verified 01/04/22 12:56 droperidol Allergy Anaphylaxis Verified 01/04/22 12:56 lisinopril Allergy Anaphylaxis Verified 01/04/22 12:56 Physical Exam Vitals: Vital Signs Temp Pulse Pulse Resp BP BP Pulse Ox 01/07/22 11:20 97.4 F L 82 18 115/73 97 01/07/22 10:05 97.8 F 80 18 130/81 98 01/07/22 09:31 98.4 F 78 18 106/70 97 01/07/22 08:38 71 18 116/68 01/07/22 07:55 82 18 127/80 97 01/07/22 05:57 97.4 F L 80 20 121/83 97 Intake and Output 01/06/22 01/07/22 01/07/22 22:59 06:59 14:59 Other: Weight 72.575 kg 85 kg Results CBC & Chem 7: 01/07/22 06:22 01/07/22 06:22 Labs: Abnormal Lab Results - Last 24 Hours (Table) 01/07/22 01/07/22 01/07/22 Range/Units 06:22 06:22 07:03 Plt Count 133 L (150-450) k/uL Carbon Dioxide 31 H (22-30) mmol/L AST 217 H (17-59) U/L ALT 149 H (4-49) U/L U Benzodiazepines Scrn Detected H (NotDetected) U Marijuana (THC) Screen Detected H (NotDetected) Serum Alcohol 337 H* mg/dL
[2022-01-07] MEDS ORDERED: THIAMINE 100 MG TAB PO SCH (17:30)
--- NOTE | 2022-01-07 18:12 | P.DS ---
Providers Date of admission: 01/07/22 08:19 Attending physician: Hank Ogden Primary care physician: Veena Mar [facility] Course: Diagnosis Acute alcohol intoxication with alcohol level 337 Acute on chronic alcoholic hepatitis Thrombocytopenia from myelosuppression from chronic alcohol abuse, improved from previous admission GERD Osteoarthritis Obstructive sleep apnea not on CPAP at home Spinal stenosis/herniated disc surgery. Anxiety/depression History of peripheral vascular disease Previous history of smoking Marijuana use GI prophylaxis Full Code Discharge disposition Patient stable for discharge. He is alert and oriented. He has no visible tremors on examination. He is tolerating diet. Discontinue librium on discharge as requires medicaid prior auth. Continue with naltrexone as previously prescribed. Recommend total alcohol cessation, advise to return to [facility] for rehabilitation. Patient is high risk for readmission due to ongoing chronic alcohol abuse. He is prescribed protonix on discharge. Hospital course Patient is a 46-year-old male with a known history of alcohol abuse and previous admissions with alcohol intoxication, hypertension, alcoholic liver disease, GERD, osteoarthritis, obstructive sleep apnea not using CPAP at home, history of upper GI bleed, anxiety/depression and previous history of smoking and daily alcohol use presents to ER with acute alcohol intoxication. Patient was discharged from the hospital yesterday after 2 day observation stay for acute alcohol intoxication. He was discharged home and returns to the with alcohol level of 337. He is admitted to observation for acute alcohol intoxication and given a dose of oral ativan in the EC. Patient was monitored on the floor with no evidence for acute alcohol withdrawal. Patient was recently evaluated on psychiatric unit in October of this year and started on sertraline and zoloft and that time which appears he is not currently taking. He was discharged from there to [facility] for rehabiliation from chronic alcohol use. Patient reports that whe n he returned home he had an eviction notice and had went to court and received funds to assist with getting his house out of [facility]. Patient reports he made the wrong choice and began drinking 1/2 gallon of vodka per day for 2 weeks. He was started on naltrexone 50 mg po daily by his PCP on 12/14/2021. Librium requires a prior authorization by his health insurance. Recommend to continue on naltrexone and follow up with his PCP 1-2 days after discharge. Patient is given community resources to assist with alcohol cessation. This admission patient presents with platelet count of 133 which is improved from 1 day prior. The rest of his blood count panel is unremarkable. Electrolytes are within normal limits, AST/ALT are elevated. Urinalysis is negative. Drug toxicology is positive for benzodiazepines and marijuana. Patient did receive a dose of ativan in the EC. EKG reviewed showing sinus rhythm heart rate 84, no ST or T wave changes. Patient is hemodynamically stable. 01/07/2022 Patient evaluated later in the afternoon and has sobered up. He will be discharge. Patient has had multiple admission for alcohol intoxication and also recently went to rehab for alcohol abuse. Despite multiple hospitalizations for detox patient continues to drink daily and returns to the EC for alcohol intoxication requesting ativan. Counseling providing regarding follow up with primary care and community resources given by case management on discharge yesterday. Patient will be discharge today with above recommendations. He will also be referred to gastroenterology outpatient. Please see medical H&P for additional information. Please see medication reconciliation for list of current medications. Thank you for allowing us participate in the care of this patient. Total time taken in discharge planning greater than 35 minutes The impression and plan of care has been dictated by Alvina Nagy, Nurse Practitioner as directed. Dr. Melvi MD I have performed a history and physical examination and medical decision making of this patient, discussed the same with the dictator, and agree with the dictators assessment and plan as written, documented as a scribe. Based on total visit time, I have performed more than 50% of this visit. Patient Condition at Discharge: Fair Plan - Discharge Summary New Discharge Prescriptions: New Naltrexone HCl [Revia] 50 mg PO DAILY #1 tablet Continue Fluticasone Nasal [place] [Flonase Nasal [place]] 2 spr EA NOSTRIL BID Magnesium Oxide [Mag-Ox] 400 mg PO TID 30 Days #90 tab Acamprosate Calcium [Campral] 666 mg PO TID #90 tablet Nicotine 14Mg/24Hr Patch [Habitrol] 1 patch TRANSDERM DAILY PRN #28 patch PRN Reason: Nicotine Cravings Gabapentin [Neurontin] 600 mg PO TID #120 cap Cholecalciferol [Vitamin D3 (25 Mcg = 1000 Iu)] 25 mcg PO DAILY Acetaminophen Tab [Tylenol] 650 mg PO Q6HR PRN tab PRN Reason: Fever And/ Or Pain Loperamide [Imodium] 2 mg PO QID PRN cap PRN Reason: Diarrhea Multivitamins, Thera [Multivitamin (formulary)] 1 tab PO DAILY Thiamine [Vitamin B-1] 100 mg PO BID-W/MEALS #60 tab Discontinued chlordiazePOXIDE HCl [Librium] See Taper PO DIRECTED Discharge Medication List Fluticasone Nasal [place] [Flonase Nasal [place]] 2 spr EA NOSTRIL BID 10/11/19 [History] Magnesium Oxide [Mag-Ox] 400 mg PO TID 30 Days #90 tab 08/06/21 [Rx] Cholecalciferol [Vitamin D3 (25 Mcg = 1000 Iu)] 25 mcg PO DAILY 10/02/21 [History] Acetaminophen Tab [Tylenol] 650 mg PO Q6HR PRN tab 10/15/21 [Rx] Loperamide [Imodium] 2 mg PO QID PRN cap 10/31/21 [Rx] Acamprosate Calcium [Campral] 666 mg PO TID #90 tablet 11/03/21 [Rx] Gabapentin [Neurontin] 600 mg PO TID #120 cap 11/03/21 [Rx] Nicotine 14Mg/24Hr Patch [Habitrol] 1 patch TRANSDERM DAILY PRN #28 patch 11/03/21 [Rx] Multivitamins, Thera [Multivitamin (formulary)] 1 tab PO DAILY 01/04/22 [History] Thiamine [Vitamin B-1] 100 mg PO BID-W/MEALS #60 tab 01/06/22 [Rx] Naltrexone HCl [Revia] 50 mg PO DAILY #1 tablet 01/07/22 [Rx] Follow up Appointment(s)/Referral(s): Bridgette Alexander MD [STAFF PHYSICIAN] - 1 Week Veena Mar DO [Primary Care Provider] - 1-2 days Activity/Diet/Wound Care/Special Instructions: Recommend total alcohol cessation Follow up with PCP Consider return to rehab at [facility] No librium on discharge Continue naltrexone 50 mg po daily as prescribed by Dr Mar on 12/17/2021 Avoid use of benzodiazepines unless directed by a physician
== END 2022-01-07 19:10 | disposition home or self-care (01) | DRG 897 ==
LOC: EC 05:57 → 5NMEDONC 08:19
PROVIDERS: ADMIT Internal Medicine; ATTEND Internal Medicine
DX: F10.129 Alcohol abuse with intoxication, unspecified (principal); D69.59 Other secondary thrombocytopenia; F12.10 Cannabis abuse, uncomplicated; F32.A Depression, unspecified; K70.10 Alcoholic hepatitis without ascites; F41.9 Anxiety disorder, unspecified; Z71.41 Alcohol abuse counseling and surveillance of alcoholic; G40.909 Epilepsy, unspecified, not intractable, without status epilepticus; G47.33 Obstructive sleep apnea (adult) (pediatric); G89.29 Other chronic pain; Y90.8 Blood alcohol level of 240 mg/100 ml or more; I10 Essential (primary) hypertension; E83.42 Hypomagnesemia; K29.20 Alcoholic gastritis without bleeding; M48.00 Spinal stenosis, site unspecified; I83.93 Asymptomatic varicose veins of bilateral lower extremities; I73.9 Peripheral vascular disease, unspecified; K21.9 Gastro-esophageal reflux disease without esophagitis; M19.90 Unspecified osteoarthritis, unspecified site; Z76.5 Malingerer [conscious simulation]; Z79.899 Other long term (current) drug therapy; Z80.8 Family history of malignant neoplasm of other organs or systems; Z82.0 Family history of epilepsy and other diseases of the nervous system; Z82.49 Family history of ischemic heart disease and other diseases of the circulatory system; Z87.891 Personal history of nicotine dependence; Z88.1 Allergy status to other antibiotic agents; Z87.19 Personal history of other diseases of the digestive system
CPT/HCPCS: 36415; 80053; 80306; 80320; 81003; 82150; 83690; 85025; 96365; 96366; 96372; 96375; 99285

== ENCOUNTER 2022-01-22 17:51 | Inpatient (IN) | payer OTHER ==
--- NOTE | 2022-01-22 18:17 | ED ---
General Adult HPI - General Source: patient, EMS Mode of arrival: EMS Limitations: altered mental status <Asif Veronica - Last Filed: 01/22/22 21:17> <Rico Zuluaga - Last Filed: 01/22/22 22:21> - General Chief complaint: Psychiatric Symptoms Stated complaint: DEPRESSION Time Seen by Provider: 01/22/22 18:07 - History of Present Illness Initial comments: Dictation was produced using [employer] dictation software. please excuse any grammatical, word or spelling errors. Chief Complaint: 46-year-old male wanted to emergency by a rock on his presents emergency department for alcohol intoxication and depression. History of Present Illness: Patient is a 46-year-old male presents emergency department for acute alcohol intoxication and depression. Patient states that he is feeling depressed. Denies any suicidality. Patient states he drank a fifth of vodka today. Patient denies any homicidal ideation. No visual auditory hallucinations. Patient's well-known to emergency department for multiple visitations for alcoholism -related issues. The ROS documented in this emergency department record has been reviewed and confirmed by me. Those systems with pertinent positive or negative responses have been documented in the HPI. All other systems are other negative and/or noncontributory. PHYSICAL EXAM: General Impression: Alert and oriented x3, not in acute distress, smells of EtOH HEENT: Normocephalic atraumatic, extra-ocular movements intact, pupils equal and reactive to light bilaterally, mucous membranes moist. Cardiovascular: Heart regular rate and rhythm Chest: Able to complete full sentences, no retractions, no tachypnea Abdomen: abdomen soft, non-tender, non-distended, no organomegaly Musculoskeletal: Pulses present and equal in all extremities, no peripheral edema Motor: no focal deficits noted Neurological: CN II-XII grossly intact, no focal motor or sensory deficits noted Skin: Intact with no visualized rashes Psych: Normal affect and mood ED course: 46-year-old male presents emergency department for acute alcohol intoxication and depression. vital signs upon arrival are within acceptable limits. Patient just discharged from the hospital on January 07. He was admitted for alcohol intoxication. Patient care sign out to Dr. Zuluaga (Asif Veronica) - Related Data Home Medications Medication Instructions Recorded Confirmed Fluticasone Nasal [place] [Flonase 2 spr EA NOSTRIL BID 10/11/19 01/22/22 Nasal [place]] Cholecalciferol [Vitamin D3 (25 25 mcg PO DAILY 10/02/21 01/22/22 Mcg = 1000 Iu)] Multivitamins, Thera [Multivitamin 1 tab PO DAILY 01/04/22 01/22/22 (formulary)] Ondansetron [Zofran] 4 mg PO Q8HR PRN 01/22/22 01/22/22 Previous Rx's Medication Instructions Recorded Magnesium Oxide [Mag-Ox] 400 mg PO TID 30 Days #90 tab 08/06/21 Acetaminophen Tab [Tylenol] 650 mg PO Q6HR PRN tab 10/15/21 Loperamide [Imodium] 2 mg PO QID PRN cap 10/31/21 Acamprosate Calcium [Campral] 666 mg PO TID #90 tablet 11/03/21 Gabapentin [Neurontin] 600 mg PO TID #120 cap 11/03/21 Nicotine 14Mg/24Hr Patch [Habitrol] 1 patch TRANSDERM DAILY PRN #28 11/03/21 patch Thiamine [Vitamin B-1] 100 mg PO BID-W/MEALS #60 tab 01/06/22 Naltrexone HCl [Revia] 50 mg PO DAILY #1 tablet 01/07/22 Pantoprazole [Protonix] 40 mg PO DAILY #30 tab 01/07/22 Allergies Allergy/AdvReac Type Severity Reaction Status Date / Time Cephalosporins Allergy Severe Anaphylaxis Verified 01/22/22 20:33 diphenhydramine HCl Allergy Severe Anaphylaxis Verified 01/22/22 20:33 [From Benadryl] divalproex sodium Allergy Severe Anaphylaxis Verified 01/22/22 20:33 [From Depakote] ceftriaxone [From Rocephin] Allergy Anaphylaxis Verified 01/22/22 20:33 cephalexin [From Keflex] Allergy Anaphylaxis Verified 01/22/22 20:33 droperidol Allergy Anaphylaxis Verified 01/22/22 20:33 lisinopril Allergy Anaphylaxis Verified 01/22/22 20:33 Review of Systems ROS Other: All systems not noted in ROS Statement are negative. <Asif Veronica - Last Filed: 01/22/22 21:17> ROS Other: All systems not noted in ROS Statement are negative. <Rico Zuluaga - Last Filed: 01/22/22 22:21> ROS Statement: Those systems with pertinent positive or pertinent negative responses have been documented in the HPI. Past Medical History Past Medical History: GERD/Reflux, GI Bleed, Hypertension, Liver Disease, Osteoarthritis (OA), Pneumonia, Seizure Disorder, Sleep Apnea/CPAP/BIPAP, Vascular Disorder Additional Past Medical History / Comment(s): Pt recently admitted to [facility] on 07/26/21 with alcohol intoxication/abuse/fall/marijuana abuse. Other hx: Occasional bilateral pedal edema if stands long, arthritis possibly in back/ribs, MILIND without device, ETOH abuse, alcoholic seizures/blackouts/fainting 2016, alcoholic hepatitis, alcoholic gastritis, upper GI bleed, hypomagnesemia, spinal stenosis/herniated disc with surgery, bilateral varicose veins, hemorrhoids, stated on a sun for 2 weeks patient was drinking 1/2 gallon of vodka a day january 03. pt stoppped aprox 01/02/2022 History of Any Multi-Drug Resistant Organisms: None Reported Past Surgical History: Appendectomy, Back Surgery, Tonsillectomy Additional Past Surgical History / Comment(s): bilateral discectomy, discectomy L5-S1, EGD Past Anesthesia/Blood Transfusion Reactions: Motion Sickness Past Psychological History: Anxiety, Depression Smoking Status: Former smoker - Past Family History Father Family Medical History: Cancer, Dementia, Neurologic Disorder Additional Family Medical History / Comment(s): melanoma, parkinsons, schizophrenic Mother Family Medical History: Hypertension, Musculoskeletal Disorder, Neurologic Disorder, Osteoarthritis (OA) Additional Family Medical History / Comment(s): Mother of motor neuron disease at the age of 78yrs. <Asif Veronica - Last Filed: 01/22/22 21:17> General Exam Limitations: altered mental status <Asif Veronica - Last Filed: 01/22/22 21:17> Course Vital Signs 01/22/22 01/22/22 01/22/22 18:00 20:14 22:02 Temperature 98 F Pulse Rate 87 78 77 Respiratory 20 16 16 Rate Blood Pressure 126/77 107/70 106/67 O2 Sat by Pulse 96 98 98 Oximetry Medical Decision Making - Lab Data Result diagrams: 01/22/22 22:00 <Rico Zuluaga - Last Filed: 01/22/22 22:21> - Lab Data Lab Results 01/22/22 Range/Units 22:00 WBC 3.7 L (3.8-10.6) k/uL RBC 4.09 L (4.30-5.90) m/uL Hgb 12.6 L (13.0-17.5) gm/dL Hct 38.1 L (39.0-53.0) % MCV 93.1 (80.0-100.0) fL MCH 30.7 (25.0-35.0) pg MCHC 33.0 (31.0-37.0) g/dL RDW 14.2 (11.5-15.5) % Plt Count 254 (150-450) k/uL MPV 7.4 Neutrophils % 33 % Lymphocytes % 56 % Monocytes % 6 % Eosinophils % 0 % Basophils % 1 % Neutrophils # 1.2 L (1.3-7.7) k/uL Lymphocytes # 2.0 (1.0-4.8) k/uL Monocytes # 0.2 (0-1.0) k/uL Eosinophils # 0.0 (0-0.7) k/uL Basophils # 0.0 (0-0.2) k/uL Disposition <Asif Veronica - Last Filed: 01/22/22 21:17> Is patient prescribed a controlled substance at d/c from ED?: No <Rico Zuluaga - Last Filed: 01/22/22 22:21> Clinical Impression: Nausea & vomiting, Dehydration, Alcohol-induced mood disorder, Alcohol use disorder, severe, dependence Disposition: ADMITTED IP TO THIS HOSP Condition: Fair Referrals: Veena Bynum DO [Primary Care Provider] - 1-2 days
[2022-01-22] MEDS ORDERED: LORazepam 2 MG/ML INJ IV STA (22:02)
[2022-01-22] MEDS ORDERED: HYDROmorphone 1 MG/ML 1 ML SYRINGE IVP STA (22:02)
[2022-01-22] MEDS ORDERED: ONDANSETRON 4 MG/2 ML VIAL IVP STA (22:02)
[2022-01-22 22:07] LABS: Basophils % (A) 1 %; Eosinophils % (A) 0 %; HCT 38.1 % (39.0-53.0); HGB 12.6 gm/dL (13.0-17.5); Lymphocytes % (A) 56 %; MCH 30.7 pg (25.0-35.0); MCV 93.1 fL (80.0-100.0); Mean Platelet Volume 7.4; Monocytes # (A) 0.2 k/uL (0-1.0); Monocytes % (A) 6 %; Neutrophils # (A) 1.2 k/uL (1.3-7.7); Neutrophils % (A) 33 %; Platelet Count 254 k/uL (150-450); RBC 4.09 m/uL (4.30-5.90); RDW 14.2 % (11.5-15.5); WBC 3.7 k/uL (3.8-10.6)
[2022-01-22 22:19] LABS: ALT 130 U/L (4-49); AST 167 U/L (17-59); African American GFR (CKD) >90 (>60 ml/min/1.73 sqM); Albumin 4.4 g/dL (3.5-5.0); Alkaline Phosphatase 47 U/L (38-126); Anion Gap 16 mmol/L; Blood Urea Nitrogen 11 mg/dL (9-20); Calcium 8.3 mg/dL (8.4-10.2); Carbon Dioxide 25 mmol/L (22-30); Chloride 103 mmol/L (98-107); Glucose 73 mg/dL (74-99); Magnesium 1.6 mg/dL (1.6-2.3); Non-African American GFR(CKD) >90 (>60 ml/min/1.73 sqM); Potassium 4.4 mmol/L (3.5-5.1); Sodium 144 mmol/L (137-145); Total Bilirubin 0.4 mg/dL (0.2-1.3); Total Protein 6.8 g/dL (6.3-8.2)
[2022-01-22] MEDS ORDERED: SODIUM CHLORIDE 0.9% 1,000 ML IV STA (22:19)
[2022-01-22] MEDS ORDERED: NALOXONE 0.4 MG/ML 1 ML VIAL IV PRN (22:19)
[2022-01-22 22:56] LABS: Alcohol 323 mg/dL
[2022-01-23] MEDS ORDERED: LORazepam 2 MG/ML INJ IV STA (04:32)
[2022-01-23] MEDS ORDERED: LORazepam 2 MG/ML INJ IV PRN (05:21)
--- NOTE | 2022-01-23 05:23 | P.HPIM ---
History of Present Illness H&P Date: 01/23/22 Chief Complaint: alcohol withdrawal 46-year-old male with hypertension, alcohol dependence Patient is known for frequent hospital stays and ER visits for alcohol related problems. Patient comes in this time requesting alcohol detox and rehab placement. His last drink was today however he feels very depressed and hopeless and wants to quit alcohol drinking he denies any suicidal ideation. He reports multiple episodes of alcohol withdrawals in the past with alcohol w ithdrawal seizures. He reports that his grandpa from alcohol problems and he with strongly like to quit alcohol however he has multiple failed attempts in the past going through rehab and then he relapses again. Otherwise he denies any fevers or chills denies upper respiratory infection symptoms denies any abdominal pain nausea vomiting changes in his bowel or urinary habits denies any GI bleeding blood work in the ED showed high alcohol level. Elevated liver enzymes. Mild anemia Review of Systems Pertinent positives as noted in HPI. All other systems were reviewed and are negative Past Medical History Past Medical History: GERD/Reflux, GI Bleed, Hypertension, Liver Disease, Osteoarthritis (OA), Pneumonia, Seizure Disorder, Sleep Apnea/CPAP/BIPAP, Vascular Disorder Additional Past Medical History / Comment(s): Pt recently admitted to [facility] on 07/26/21 with alcohol intoxication/abuse/fall/marijuana abuse. Other hx: Occasional bilateral pedal edema if stands long, arthritis possibly in back/ribs, MILIND without device, ETOH abuse, alcoholic seizures/blackouts/fainting 2016, alcoholic hepatitis, alcoholic gastritis, upper GI bleed, hypomagnesemia, spinal stenosis/herniated disc with surgery, bilateral varicose veins, hemorrhoids, stated on a sun for 2 weeks patient was drinking 1/2 gallon of vodka a day january 03. pt stoppped aprox 01/02/2022 History of Any Multi-Drug Resistant Organisms: None Reported Past Surgical History: Appendectomy, Back Surgery, Tonsillectomy Additional Past Surgical History / Comment(s): bilateral discectomy, discectomy L5-S1, EGD Past Anesthesia/Blood Transfusion Reactions: Motion Sickness Past Psychological History: Anxiety, Depression Smoking Status: Former smoker - Past Family History Father Family Medical History: Cancer, Dementia, Neurologic Disorder Additional Family Medical History / Comment(s): melanoma, parkinsons, schizophrenic Mother Family Medical History: Hypertension, Musculoskeletal Disorder, Neurologic Disorder, Osteoarthritis (OA) Additional Family Medical History / Comment(s): Mother of motor neuron disease at the age of 78yrs. Medications and Allergies Home Medications Medication Instructions Recorded Confirmed Type Fluticasone Nasal [place] [Flonase 2 spr EA NOSTRIL BID 10/11/19 01/22/22 History Nasal [place]] Magnesium Oxide [Mag-Ox] 400 mg PO TID 30 Days #90 tab 08/06/21 01/22/22 Rx Cholecalciferol [Vitamin D3 (25 25 mcg PO DAILY 10/02/21 01/22/22 History Mcg = 1000 Iu)] Acetaminophen Tab [Tylenol] 650 mg PO Q6HR PRN tab 10/15/21 01/22/22 Rx Loperamide [Imodium] 2 mg PO QID PRN cap 10/31/21 01/22/22 Rx Acamprosate Calcium [Campral] 666 mg PO TID #90 tablet 11/03/21 01/22/22 Rx Gabapentin [Neurontin] 600 mg PO TID #120 cap 11/03/21 01/22/22 Rx Nicotine 14Mg/24Hr Patch [Habitrol] 1 patch TRANSDERM DAILY PRN #28 11/03/21 01/22/22 Rx patch Multivitamins, Thera [Multivitamin 1 tab PO DAILY 01/04/22 01/22/22 History (formulary)] Thiamine [Vitamin B-1] 100 mg PO BID-W/MEALS #60 tab 01/06/22 01/22/22 Rx Naltrexone HCl [Revia] 50 mg PO DAILY #1 tablet 01/07/22 01/22/22 Rx Pantoprazole [Protonix] 40 mg PO DAILY #30 tab 01/07/22 01/22/22 Rx Ondansetron [Zofran] 4 mg PO Q8HR PRN 01/22/22 01/22/22 History Allergies Allergy/AdvReac Type Severity Reaction Status Date / Time Cephalosporins Allergy Severe Anaphylaxis Verified 01/22/22 20:33 diphenhydramine HCl Allergy Severe Anaphylaxis Verified 01/22/22 20:33 [From Benadryl] divalproex sodium Allergy Severe Anaphylaxis Verified 01/22/22 20:33 [From Depakote] ceftriaxone [From Rocephin] Allergy Anaphylaxis Verified 01/22/22 20:33 cephalexin [From Keflex] Allergy Anaphylaxis Verified 01/22/22 20:33 droperidol Allergy Anaphylaxis Verified 01/22/22 20:33 lisinopril Allergy Anaphylaxis Verified 01/22/22 20:33 Physical Exam Vitals: Vital Signs Temp Pulse Resp BP Pulse Ox 01/22/22 23:16 98.2 F 81 20 108/67 98 01/22/22 22:02 77 16 106/67 98 01/22/22 20:14 78 16 107/70 98 01/22/22 18:00 98 F 87 20 126/77 96 Intake and Output 01/22/22 01/22/22 01/23/22 14:59 22:59 06:59 Other: Weight 113.398 kg Constitutional: No acute distress, cooperative Eyes: Anicteric sclerae, moist conjunctiva, Pupils equal round reactive to light ENMT: NC/AT Oropharynx clear, no erythema, or exudates Neck: Supple, no masses, or JVD No carotid bruits No thyromegaly Lungs: Clear to auscultation Clear to percussion Normal respiratory effort, no accessory muscle use Cardiovascular: Heart regular in rate and rhythm, No murmurs, gallops, or rubs No peripheral edema Abdominal: Soft Nontender, no guarding, rebound or rigidity Abdomen moving with respiration Normoactive bowel sounds No hepatomegaly, No splenomegaly No palpable mass No abdominal wall hernia noted Skin: Normal temperature, tone, texture, turgor No induration No subcutaneous nodules No rash, lesions No ulcers Extremities: No digital cyanosis No clubbing Pedal pulses intact and symmetrical Radial pulses intact and symmetrical No calf tenderness Psychiatric: Alert and oriented to person, place and time flat affect Neuro Muscles Strength 5/5 in all 4 extremities Sensation to light touch grossly present throughout Cranial nerves II-XII grossly intact No focal sensory deficits Lymphatics: no palpable cervical or supraclavicular , or inguinal lymph nodes Results CBC & Chem 7: 01/22/22 22:00 01/22/22 22:00 Labs: Abnormal Lab Results - Last 24 Hours (Table) 01/22/22 01/22/22 Range/Units 22:00 22:00 WBC 3.7 L (3.8-10.6) k/uL RBC 4.09 L (4.30-5.90) m/uL Hgb 12.6 L (13.0-17.5) gm/dL Hct 38.1 L (39.0-53.0) % Neutrophils # 1.2 L (1.3-7.7) k/uL Creatinine 0.61 L (0.66-1.25) mg/dL Glucose 73 L (74-99) mg/dL Calcium 8.3 L (8.4-10.2) mg/dL AST 167 H (17-59) U/L ALT 130 H (4-49) U/L Serum Alcohol 323 H* mg/dL Assessment and Plan Assessment: alcohol dependence and alcohol withdrawal IV fluid hydration normal saline Benzos per CIWA scale Thiamine Fall precautions Seizure precautions GI prophylaxis with Protonix by mouth dvt prophylaxis heparin subcu 3 times a day Full code
[2022-01-23 06:43] LABS: Basophils % (A) 1 %; Eosinophils % (A) 0 %; HGB 12.3 gm/dL (13.0-17.5); Lymphocytes # (A) 1.7 k/uL (1.0-4.8); Lymphocytes % (A) 43 %; MCH 31.1 pg (25.0-35.0); MCHC 33.2 g/dL (31.0-37.0); MCV 93.7 fL (80.0-100.0); Mean Platelet Volume 7.8; Monocytes # (A) 0.3 k/uL (0-1.0); Monocytes % (A) 7 %; Neutrophils # (A) 1.8 k/uL (1.3-7.7); Neutrophils % (A) 46 %; Platelet Count 252 k/uL (150-450); RBC 3.95 m/uL (4.30-5.90); WBC 3.9 k/uL (3.8-10.6)
[2022-01-23 06:56] LABS: ALT 124 U/L (4-49); AST 158 U/L (17-59); African American GFR (CKD) >90 (>60 ml/min/1.73 sqM); Albumin 4.5 g/dL (3.5-5.0); Alkaline Phosphatase 54 U/L (38-126); Anion Gap 15 mmol/L; Blood Urea Nitrogen 13 mg/dL (9-20); Calcium 8.6 mg/dL (8.4-10.2); Carbon Dioxide 24 mmol/L (22-30); Chloride 101 mmol/L (98-107); Glucose 77 mg/dL (74-99); Magnesium 1.3 mg/dL (1.6-2.3); Non-African American GFR(CKD) >90 (>60 ml/min/1.73 sqM); Potassium 4.4 mmol/L (3.5-5.1); Sodium 140 mmol/L (137-145); Total Bilirubin 0.7 mg/dL (0.2-1.3); Total Protein 6.8 g/dL (6.3-8.2)
[2022-01-23] MEDS: PANTOPRAZOLE 40 MG TABLET PO SCH (07:52)
[2022-01-23] MEDS ORDERED: ACETAMINOPHEN TAB 325 MG TAB PO STA (08:17)
[2022-01-23] MEDS: LORazepam 2 MG/ML INJ IV PRN ×5 (08:29→17:41)
[2022-01-23] MEDS ORDERED: PANTOPRAZOLE 40 MG/10 ML VIAL IV SCH (09:00)
[2022-01-23] MEDS: GABAPENTIN 300 MG CAP PO SCH ×3 (09:43→22:09)
[2022-01-23] MEDS ORDERED: KETOROLAC 15 MG/ML 1 ML VIAL IVP STA (11:46)
--- NOTE | 2022-01-23 11:48 | P.PN ---
Progress Note - Text Progress Note Date: 01/23/22 Patient was seen and examined. No acute events overnight. Patient reports resting tremors. He denies any chest pain, shortness breath or palpitations. No nausea or vomiting. No fever or chills. General: [non toxic], [no distress], [appears at stated age] Derm: [warm], [dry] Head: [atraumatic], [normocephalic], [symmetric] Eyes: [EOMI], [no lid lag], [anicteric sclera] Mouth: [no lip lesion], [mucus membranes moist] Cardiovascular: [S1S2 reg], [no murmur] Lungs: [CTA bilateral], [no rhonchi, no rales] , [no accessory muscle use] Abdominal: [soft], [ nontender to palpation] Ext: [no gross muscle atrophy], [tremors on outstretched hands], [no contractures] Neuro: [no focal neuro deficits] Psych: [Alert], [oriented], [appropriate affect] #Alcohol intoxication with impending withdrawal #Normocytic anemia #Transaminitis #Morbid obesity Continue CIWA protocol with Ativan as needed. Librium is added. Continue thiamine. Fall and seizure precautions. Telemetry monitoring. Continue to monitor with CBC and CMP. Patient would benefit from a structured weight loss program. Encouraged alcohol cessation and need for [place]. Patient agreeable, but would like to go home first. DVT prophylaxis: [Heparin] Discussed with: [Patient] Anticipated discharge: [1-2 days] Anticipated discharge place: [Home] A total of [35] minutes was spent on the care of this complex patient more than 50% of the time was spent in counseling and care coordination.
[2022-01-23] MEDS: chlordiazePOXIDE 25 MG CAP PO SCH ×3 (12:19→22:11)
[2022-01-23] MEDS: THIAMINE 100 MG TAB PO SCH (17:01)
[2022-01-23] MEDS: HEPARIN SODIUM,PORCINE/PF 5,000 UNIT/0.5 ML SYRINGE SQ SCH (20:32)
[2022-01-23] MEDS: LORazepam 1 MG/0.5 ML VIAL IV PRN (20:33)
[2022-01-23] MEDS: MAGNESIUM SULFATE-D5W PMX 1 GM in DEXTROSE/WATER 1 100ML.BAG IVPB SCH ×2 (22:09→23:34)
[2022-01-24] MEDS: LORazepam 1 MG/0.5 ML VIAL IV PRN ×9 (01:19→23:04)
[2022-01-24] MEDS ORDERED: MORPHINE SULFATE 4 MG/ML SYRINGE IVP STA (02:06)
[2022-01-24] MEDS: PANTOPRAZOLE 40 MG TABLET PO SCH (06:55)
[2022-01-24] MEDS: THIAMINE 100 MG TAB PO SCH ×2 (06:55→16:30)
[2022-01-24] MEDS: ONDANSETRON 4 MG/2 ML VIAL IVP PRN (06:55)
[2022-01-24] MEDS: chlordiazePOXIDE 25 MG CAP PO SCH ×3 (08:22→22:04)
[2022-01-24] MEDS: HEPARIN SODIUM,PORCINE/PF 5,000 UNIT/0.5 ML SYRINGE SQ SCH ×2 (08:22→20:27)
[2022-01-24] MEDS: GABAPENTIN 300 MG CAP PO SCH ×3 (08:22→22:04)
[2022-01-24 08:44] LABS: African American GFR (CKD) >90 (>60 ml/min/1.73 sqM); Anion Gap 10 mmol/L; Blood Urea Nitrogen 19 mg/dL (9-20); Calcium 8.6 mg/dL (8.4-10.2); Carbon Dioxide 24 mmol/L (22-30); Chloride 102 mmol/L (98-107); Glucose 105 mg/dL (74-99); Non-African American GFR(CKD) >90 (>60 ml/min/1.73 sqM); Sodium 136 mmol/L (137-145)
[2022-01-24 08:47] LABS: Potassium 4.2 mmol/L (3.5-5.1)
[2022-01-24] MEDS: MAGNESIUM SULFATE-D5W PMX 1 GM in DEXTROSE/WATER 1 100ML.BAG IVPB SCH ×2 (11:10→12:58)
--- NOTE | 2022-01-24 11:25 | P.PN ---
Progress Note - Text Progress Note Date: 01/24/22 Patient was seen and examined. No acute events overnight. Patient reports resting tremors. He reports sensation of bugs crawling on his skin. He denies any chest pain, shortness breath or palpitations. Reports nausea but no vomiting. No fever or chills. CIWA 11. General: [non toxic], [no distress], [appears at stated age] Derm: [warm], [dry] Head: [atraumatic], [normocephalic], [symmetric] Eyes: [EOMI], [no lid lag], [anicteric sclera] Mouth: [no lip lesion], [mucus membranes moist] Cardiovascular: [S1S2 reg], [no murmur] Lungs: [CTA bilateral], [no rhonchi, no rales] , [no accessory muscle use] Abdominal: [soft], [ nontender to palpation] Ext: [no gross muscle atrophy], [tremors on outstretched hands], [no contractures] Neuro: [no focal neuro deficits] Psych: [Alert], [oriented], [appropriate affect] #Alcohol intoxication with withdrawal #Fall with head trauma #Normocytic anemia #Transaminitis #Morbid obesity Continue CIWA protocol with Ativan as needed. Librium is added. Continue thiamine. Fall and seizure precautions. Telemetry monitoring. Obtain CT head and C-spine. Continue to monitor with CBC and CMP. Patient would benefit from a structured weight loss program. Encouraged alcohol cessation and need for [place]. Patient agreeable, but would like to go home first. DVT prophylaxis: [Heparin] Discussed with: [Patient] Anticipated discharge: [2 days] Anticipated discharge place: [Home] A total of [35] minutes was spent on the care of this complex patient more than 50% of the time was spent in counseling and care coordination.
--- NOTE | 2022-01-24 13:47 | CT ---
EXAMINATION TYPE: CT brain johnine wo con DATE OF EXAM: 01/24/2022 COMPARISON: 10/28/2021 HISTORY: Fall CT DLP: 1549.3 mGycm, Automated exposure control for dose reduction was used. CONTRAST: None CT of the brain is performed utilizing 3 mm thick sections through the posterior fossa and 3 mm thick sections through the remaining calvarium. Study is performed within 24 hours of arrival to the hospital. No abnormal hyperdensity is present to suggest an acute intracranial hemorrhage. No mass lesion is evident. Minimal physiologic basal ganglion calcifications present bilaterally. No acute infarcts are evident. Ventricles and sulci are appropriate for the patient age. Paranasal sinuses and mastoid air cells within the [id number] are clear. IMPRESSIONS: 1. No acute intracranial process. Follow-up MRI can be performed as clinically indicated. CT cervical spine. COMPARISON: None CT of the cervical spine is performed in the axial plane at 2 mm thick sections. Reconstructed image s in the coronal, and sagittal plane are reviewed on the computer. No acute fractures are evident. Vertebral body alignment is normal. Some mild diffuse disc space narrowing is present. Vertebral body heights are preserved. Anterior vertebral body spurring is present. No spinal canal stenosis is evident. Uncovertebral joint hypertrophy is present with some foraminal narrowing present. IMPRESSIONS: 1. Mild degenerative changes within the cervical spine. 2. No acute osseous abnormality.
[2022-01-24] MEDS: ACETAMINOPHEN TAB 325 MG TAB PO PRN ×2 (15:21→23:05)
[2022-01-25] MEDS: LORazepam 1 MG/0.5 ML VIAL IV PRN ×5 (03:32→20:08)
[2022-01-25] MEDS: THIAMINE 100 MG TAB PO SCH ×2 (06:28→16:15)
[2022-01-25] MEDS: PANTOPRAZOLE 40 MG TABLET PO SCH (06:28)
[2022-01-25] MEDS: chlordiazePOXIDE 25 MG CAP PO SCH ×3 (09:28→20:08)
[2022-01-25] MEDS: ACETAMINOPHEN TAB 325 MG TAB PO PRN (09:29)
[2022-01-25] MEDS: HEPARIN SODIUM,PORCINE/PF 5,000 UNIT/0.5 ML SYRINGE SQ SCH ×2 (09:29→20:08)
[2022-01-25] MEDS: GABAPENTIN 300 MG CAP PO SCH ×3 (09:29→20:08)
[2022-01-25] MEDS ORDERED: Magnesium Replacement Protocol 1 EACH MISC MISCELLANE PRN (10:18)
[2022-01-25] MEDS: MAGNESIUM SULFATE-D5W PMX 1 GM in DEXTROSE/WATER 1 100ML.BAG IVPB SCH ×2 (11:46→14:17)
[2022-01-26] MEDS: LORazepam 1 MG/0.5 ML VIAL IV PRN ×6 (00:44→21:16)
[2022-01-26] MEDS: ONDANSETRON 4 MG/2 ML VIAL IVP PRN (06:04)
[2022-01-26] MEDS: THIAMINE 100 MG TAB PO SCH ×2 (06:04→15:37)
[2022-01-26] MEDS: PANTOPRAZOLE 40 MG TABLET PO SCH (06:04)
[2022-01-26] MEDS: ACETAMINOPHEN TAB 325 MG TAB PO PRN ×3 (06:05→21:15)
[2022-01-26] MEDS: HEPARIN SODIUM,PORCINE/PF 5,000 UNIT/0.5 ML SYRINGE SQ SCH ×2 (08:52→21:25)
[2022-01-26] MEDS: GABAPENTIN 300 MG CAP PO SCH ×3 (08:52→21:15)
[2022-01-26] MEDS: chlordiazePOXIDE 25 MG CAP PO SCH ×3 (08:52→21:15)
[2022-01-26 09:22] LABS: African American GFR (CKD) >90 (>60 ml/min/1.73 sqM); Anion Gap 11 mmol/L; Blood Urea Nitrogen 18 mg/dL (9-20); Carbon Dioxide 26 mmol/L (22-30); Chloride 101 mmol/L (98-107); Glucose 110 mg/dL (74-99); Magnesium 1.4 mg/dL (1.6-2.3); Non-African American GFR(CKD) >90 (>60 ml/min/1.73 sqM); Potassium 4.4 mmol/L (3.5-5.1); Sodium 138 mmol/L (137-145)
[2022-01-26] MEDS: MAGNESIUM SULFATE-D5W PMX 1 GM in DEXTROSE/WATER 1 100ML.BAG IVPB SCH ×3 (12:20→17:47)
[2022-01-26] MEDS: MAGNESIUM OXIDE 400 MG TAB PO SCH (21:15)
[2022-01-27] MEDS: LORazepam 1 MG/0.5 ML VIAL IV PRN ×3 (03:25→08:48)
[2022-01-27] MEDS: PANTOPRAZOLE 40 MG TABLET PO SCH (06:57)
[2022-01-27] MEDS: THIAMINE 100 MG TAB PO SCH (06:57)
[2022-01-27 08:38] VITALS: TEMP 98.6
[2022-01-27] MEDS: HEPARIN SODIUM,PORCINE/PF 5,000 UNIT/0.5 ML SYRINGE SQ SCH (08:43)
[2022-01-27] MEDS: MAGNESIUM OXIDE 400 MG TAB PO SCH (08:43)
[2022-01-27] MEDS: GABAPENTIN 300 MG CAP PO SCH (08:43)
[2022-01-27] MEDS: ONDANSETRON 4 MG/2 ML VIAL IVP PRN (08:49)
[2022-01-27] MEDS: chlordiazePOXIDE 25 MG CAP PO SCH (11:33)
[2022-01-27 13:20] VITALS: BP 120/70; PULSE 69; RESP 14
--- NOTE | 2022-01-28 08:48 | P.DS ---
Providers Date of admission: 01/24/22 11:25 Expected date of discharge: 01/27/22 Attending physician: Hank Ogden Primary care physician: Veena Tabor Hospital Course: Final diagnosis Acute alcohol intoxication with withdrawal Fall with head trauma, negative CT Normocytic anemia Transaminitis Obesity with a BMI of 33.0 Hypomagnesemia GI prophylaxis DVT prophylaxis Full code Discharge disposition Patient is being discharged in a stable condition with guarded prognosis to home. Patient will follow-up with Dr. Tabor in the outpatient setting upon discharge. Patient is to elevate with [facility] as discussed. Total time taken is greater than 35 minutes. Hospital course This is a 46-year-old male who was recently admitted alcohol intoxication was being closely monitored. Patient was maintained on CIWA protocol and also had hypomagnesemia which was replaced. Patient is high risk for readmissions and is of multiple hospitalizations regarding alcohol intoxication and alcohol withdrawal. Had a lengthy discussion with the patient about attending alcohol rehab again and patient reports he has things to tie up prior to going to rehab with his landlord and then will be calling [facility] to discuss going to rehab again. Encourage the patient continue with Librium taper and avoid all alcohol intake. Currently no reports of chest pain, shortness of breath, or palpitations. Patient is afebrile. No reports of nausea or vomiting and patient is tolerating diet. Patient will be discharged home today. guarded prognosis as patient is high risk for readmissions Physical exam: Gen: This is a 46-year-old male awake, alert and oriented 3, well-developed, well-nourished HEENT: Head is atraumatic, normocephalic. Pupils equal, round. Sclerae is anicteric. NECK: Supple. No JVD. No lymphadenopathy. No thyromegaly. LUNGS: Clear to auscultation. No wheezes or rhonchi. No intercostal retractions. HEART: Regular rate and rhythm. No murmur. ABDOMEN: Soft. Bowel sounds are present. No masses. No tenderness. EXTREMITIES: No pedal edema. No calf tenderness. NEUROLOGICAL: Patient is awake, alert and oriented x3. Cranial nerves 2 through 12 are grossly intact. Please refer to medication reconciliation sheet for a list of medications. The impression and plan of care has been dictated by Zayra Webster, Nurse Practitioner as directed. Dr. Jacque MD I have performed a history and examination and MDM of this patient, discussed the same with the dictator, and agree with the dictator's assessment and plan as written ,documented as a scribe. Based on total visit time, I have performed more than 50% of the visit. Patient Condition at Discharge: Fair Plan - Discharge Summary Discharge Rx Participant: No New Discharge Prescriptions: New chlordiazePOXIDE HCl [Librium] 25 mg PO TID 3 Days #12 capsule Continue Fluticasone Nasal [place] [Flonase Nasal [place]] 2 spr EA NOSTRIL BID Acamprosate Calcium [Campral] 666 mg PO TID #90 tablet Nicotine 14Mg/24Hr Patch [Habitrol] 1 patch TRANSDERM DAILY PRN #28 patch PRN Reason: Nicotine Cravings Gabapentin [Neurontin] 600 mg PO TID #120 cap Magnesium Oxide [Mag-Ox] 400 mg PO TID 30 Days #90 tab Ondansetron [Zofran] 4 mg PO Q8HR PRN #20 tab PRN Reason: Nausea Cholecalciferol [Vitamin D3 (25 Mcg = 1000 Iu)] 25 mcg PO DAILY Acetaminophen Tab [Tylenol] 650 mg PO Q6HR PRN tab PRN Reason: Fever And/ Or Pain Loperamide [Imodium] 2 mg PO QID PRN cap PRN Reason: Diarrhea Multivitamins, Thera [Multivitamin (formulary)] 1 tab PO DAILY Thiamine [Vitamin B-1] 100 mg PO BID-W/MEALS #60 tab Naltrexone HCl [Revia] 50 mg PO DAILY #1 tablet Pantoprazole [Protonix] 40 mg PO DAILY #30 tab Discharge Medication List Fluticasone Nasal [place] [Flonase Nasal [place]] 2 spr EA NOSTRIL BID 10/11/19 [History] Cholecalciferol [Vitamin D3 (25 Mcg = 1000 Iu)] 25 mcg PO DAILY 10/02/21 [History] Acetaminophen Tab [Tylenol] 650 mg PO Q6HR PRN tab 10/15/21 [Rx] Loperamide [Imodium] 2 mg PO QID PRN cap 10/31/21 [Rx] Acamprosate Calcium [Campral] 666 mg PO TID #90 tablet 11/03/21 [Rx] Gabapentin [Neurontin] 600 mg PO TID #120 cap 11/03/21 [Rx] Nicotine 14Mg/24Hr Patch [Habitrol] 1 patch TRANSDERM DAILY PRN #28 patch 11/03/21 [Rx] Multivitamins, Thera [Multivitamin (formulary)] 1 tab PO DAILY 01/04/22 [History] Thiamine [Vitamin B-1] 100 mg PO BID-W/MEALS #60 tab 01/06/22 [Rx] Naltrexone HCl [Revia] 50 mg PO DAILY #1 tablet 01/07/22 [Rx] Pantoprazole [Protonix] 40 mg PO DAILY #30 tab 01/07/22 [Rx] Magnesium Oxide [Mag-Ox] 400 mg PO TID 30 Days #90 tab 01/27/22 [Rx] Ondansetron [Zofran] 4 mg PO Q8HR PRN #20 tab 01/27/22 [Rx] chlordiazePOXIDE HCl [Librium] 25 mg PO TID 3 Days #12 capsule 01/27/22 [Rx] Follow up Appointment(s)/Referral(s): Veena Tabor DO [Primary Care Provider] - 01/29/22 10:20 am Patient Instructions/Handouts: Abuse of Alcohol (DC) Activity/Diet/Wound Care/Special Instructions: Activity Limited until follow-up Follow-up with primary care provider on discharge Follow-up with [facility] and your insurance along with access in regards to alcohol rehab Continue taking medications as prescribed Continue Librium taper as directed Avoid all alcohol intake Take magnesium 3 times daily Discharge/Stand Alone Forms: AA Meetings [facility], Outpatient Counseling, Inp Substance Abuse Facilities, Personal Associate Professor Of Literature Discharge Disposition: HOME SELF-CARE
== END 2022-01-27 15:12 | disposition home or self-care (01) | DRG 897 ==
LOC: EC 17:51 → 6NMEDSUR 22:20 → 3SCARD 01-23 15:33 → OBSVTOIN 01-24 11:25
PROVIDERS: ADMIT Internal Medicine; ATTEND Internal Medicine
DX: F10.229 Alcohol dependence with intoxication, unspecified (principal); S09.90XA Unspecified injury of head, initial encounter; F10.239 Alcohol dependence with withdrawal, unspecified; F10.24 Alcohol dependence with alcohol-induced mood disorder; E66.01 Morbid (severe) obesity due to excess calories; D64.9 Anemia, unspecified; Y90.8 Blood alcohol level of 240 mg/100 ml or more; E86.0 Dehydration; I10 Essential (primary) hypertension; K21.9 Gastro-esophageal reflux disease without esophagitis; F12.10 Cannabis abuse, uncomplicated; G47.30 Sleep apnea, unspecified; Z68.33 Body mass index [BMI] 33.0-33.9, adult; E83.42 Hypomagnesemia; R74.01 Elevation of levels of liver transaminase levels; K76.9 Liver disease, unspecified; F41.9 Anxiety disorder, unspecified; M19.90 Unspecified osteoarthritis, unspecified site; Z79.899 Other long term (current) drug therapy; Z87.891 Personal history of nicotine dependence; Z87.01 Personal history of pneumonia (recurrent); Z86.69 Personal history of other diseases of the nervous system and sense organs; W19.XXXA Unspecified fall, initial encounter; Z88.1 Allergy status to other antibiotic agents; Z88.8 Allergy status to other drugs, medicaments and biological substances; Z80.8 Family history of malignant neoplasm of other organs or systems; Z82.0 Family history of epilepsy and other diseases of the nervous system; Z82.49 Family history of ischemic heart disease and other diseases of the circulatory system; Z81.8 Family history of other mental and behavioral disorders; Z82.61 Family history of arthritis; Z81.1 Family history of alcohol abuse and dependence
CPT/HCPCS: 36415; 70450; 72125; 80048; 80053; 80320; 83735; 85025; 93005; 96361; 96374; 96375; 96376; 99285

== ENCOUNTER 2022-02-28 18:53 | Emergency (ER) | payer OTHER ==
[2022-02-28 20:03] VITALS: TEMP 99
[2022-02-28] MEDS ORDERED: PANTOPRAZOLE 40 MG/10 ML VIAL IVP STA (20:19)
[2022-02-28] MEDS ORDERED: SODIUM CHLORIDE 0.9% 1,000 ML IV STA (20:19)
[2022-02-28] MEDS ORDERED: LORazepam 2 MG/ML INJ IV STA (20:20)
[2022-02-28] MEDS ORDERED: ONDANSETRON 4 MG/2 ML VIAL IVP STA (20:20)
--- NOTE | 2022-02-28 20:22 | ED ---
General Adult HPI - General Chief complaint: Alcohol Stated complaint: N/V, DTs Time Seen by Provider: 02/28/22 20:08 Source: patient Mode of arrival: EMS Limitations: no limitations - History of Present Illness Initial comments: Dictation was produced using m[employer] dictation software. please excuse any grammatical, word or spelling errors. Chief Complaint: 46-year-old male presents emergency department with hematemesis, alcohol withdrawal History of Present Illness: Patient is a 38-year-old male who is well-known to emergency department for multiple visitations for mostly alcohol related issues. Patient states that today he is here because he is expressing withdrawal symptoms. His last alcohol intake was earlier today. Today started having bouts of epigastric pain every to the back and bloody emesis. Patient is known to drink up to a half a gallon of liquor on a daily basis. The ROS documented in this emergency department record has been reviewed and confirmed by me. Those systems with pertinent positive or negative responses have been documented in the HPI. All other systems are other negative and/or noncontributory. PHYSICAL EXAM: General Impression: Alert and oriented x3, not in acute distress, tremulous HEENT: Normocephalic atraumatic, extra-ocular movements intact, pupils equal and reactive to light bilaterally, mucous membranes moist. Cardiovascular: Heart regular rate and rhythm Chest: Able to complete full sentences, no retractions, no tachypnea Abdomen: abdomen soft, palpable epigastric tenderness, non-distended, no organomegaly Musculoskeletal: Pulses present and equal in all extremities, no peripheral edema Motor: no focal deficits noted Neurological: CN II-XII grossly intact, no focal motor or sensory deficits noted Skin: Intact with no visualized rashes Psych: Normal affect and mood ED course: 46-year-old male presents emergency department for alcohol withdrawal symptoms, hematemesis and epigastric abdominal pain. Signs upon arrival are within acceptable limits. Chart is performed. Most recent upper endoscopy that's available in our EMR is from 2018 that showed gastritis. Laboratory evaluation obtained. CBC unremarkable. Hemoglobin stable. Coag panel is unremarkable. Metabolic panel shows a gap acidosis likely secondary to alcoholic ketoacidosis. Glucose 71 patient given some dextrose. Magnesium replaced with parenterally magnesium for level I.5. Serum alcohol is 131. Patient reevaluated at bedside. Likely this is a recurrence of gastritis. Esophageal varices is unlikely. We do not have GI at our facility. We'll transfer to [facility]. Accepting physician is Dr. Spence. - Related Data Home Medications Medication Instructions Recorded Confirmed Fluticasone Nasal [place] [Flonase 2 spr EA NOSTRIL BID 10/11/19 01/28/22 Nasal [place]] Cholecalciferol [Vitamin D3 (25 25 mcg PO DAILY 10/02/21 01/28/22 Mcg = 1000 Iu)] Multivitamins, Thera [Multivitamin 1 tab PO DAILY 01/04/22 01/28/22 (formulary)] chlordiazePOXIDE HCl [Librium] See Taper PO DIRECTED 01/28/22 01/28/22 Previous Rx's Medication Instructions Recorded Acetaminophen Tab [Tylenol] 650 mg PO Q6HR PRN tab 10/15/21 Loperamide [Imodium] 2 mg PO QID PRN cap 10/31/21 Acamprosate Calcium [Campral] 666 mg PO TID #90 tablet 11/03/21 Gabapentin [Neurontin] 600 mg PO TID #120 cap 11/03/21 Nicotine 14Mg/24Hr Patch [Habitrol] 1 patch TRANSDERM DAILY PRN #28 11/03/21 patch Thiamine [Vitamin B-1] 100 mg PO BID-W/MEALS #60 tab 01/06/22 Naltrexone HCl [Revia] 50 mg PO DAILY #1 tablet 01/07/22 Pantoprazole [Protonix] 40 mg PO DAILY #30 tab 01/07/22 Magnesium Oxide [Mag-Ox] 400 mg PO TID 30 Days #90 tab 01/27/22 Ondansetron [Zofran] 4 mg PO Q8HR PRN #20 tab 01/27/22 Ibuprofen [Motrin] 400 mg PO Q6HR PRN #16 tab 01/30/22 Allergies Allergy/AdvReac Type Severity Reaction Status Date / Time Cephalosporins Allergy Severe Anaphylaxis Verified 01/28/22 21:25 diphenhydramine HCl Allergy Severe Anaphylaxis Verified 01/28/22 21:25 [From Benadryl] divalproex sodium Allergy Severe Anaphylaxis Verified 01/28/22 21:25 [From Depakote] ceftriaxone [From Rocephin] Allergy Anaphylaxis Verified 01/28/22 21:25 cephalexin [From Keflex] Allergy Anaphylaxis Verified 01/28/22 21:25 droperidol Allergy Anaphylaxis Verified 01/28/22 21:25 lisinopril Allergy Anaphylaxis Verified 01/28/22 21:25 Review of Systems ROS Statement: Those systems with pertinent positive or pertinent negative responses have been documented in the HPI. ROS Other: All systems not noted in ROS Statement are negative. Past Medical History Past Medical History: GERD/Reflux, GI Bleed, Hypertension, Liver Disease, Osteoarthritis (OA), Pneumonia, Seizure Disorder, Sleep Apnea/CPAP/BIPAP, Vascular Disorder Additional Past Medical History / Comment(s): ETOH abuse, alcoholic seizures/blackouts/syncope/alcoholic hepatitis/alcoholic gastritis/upper GI bleed, hypomagnesemia, occasional bilateral pedal edema if stands long, arthritis possibly in back/ribs, MILIND without device, spinal stenosis/herniated disc with surgery, PVD, bilateral varicose veins, hemorrhoids History of Any Multi-Drug Resistant Organisms: None Reported Past Surgical History: Appendectomy, Back Surgery, Tonsillectomy Additional Past Surgical History / Comment(s): bilateral discectomy L5-S1, EGD Past Anesthesia/Blood Transfusion Reactions: No Reported Reaction, Motion Sickness Past Psychological History: Anxiety, Depression Smoking Status: Former smoker, Vaper - Past Family History Father Family Medical History: Cancer, Dementia, Neurologic Disorder Additional Family Medical History / Comment(s): melanoma, parkinsons, schizophrenic Mother Family Medical History: Hypertension, Musculoskeletal Disorder, Neurologic Disorder, Osteoarthritis (OA) Additional Family Medical History / Comment(s): Mother of motor neuron disease at the age of 78yrs. General Exam Limitations: no limitations Course Vital Signs 02/28/22 19:58 Temperature 99 F Pulse Rate 100 Respiratory 22 Rate Blood Pressure 139/73 O2 Sat by Pulse 98 Oximetry Medical Decision Making - Lab Data Result diagrams: 02/28/22 20:36 02/28/22 20:36 Lab Results 02/28/22 02/28/22 02/28/22 Range/Units 20:36 20:36 20:36 WBC 8.0 (3.8-10.6) k/uL RBC 4.88 (4.30-5.90) m/uL Hgb 14.8 (13.0-17.5) gm/dL Hct 44.4 (39.0-53.0) % MCV 91.0 (80.0-100.0) fL MCH 30.3 (25.0-35.0) pg MCHC 33.3 (31.0-37.0) g/dL RDW 13.7 (11.5-15.5) % Plt Count 231 (150-450) k/uL MPV 7.6 Neutrophils % 68 % Lymphocytes % 28 % Monocytes % 2 % Eosinophils % 0 % Basophils % 0 % Neutrophils # 5.4 (1.3-7.7) k/uL Lymphocytes # 2.3 (1.0-4.8) k/uL Monocytes # 0.2 (0-1.0) k/uL Eosinophils # 0.0 (0-0.7) k/uL Basophils # 0.0 (0-0.2) k/uL PT 10.3 (9.0-12.0) sec INR 0.9 (<1.2) APTT 22.3 (22.0-30.0) sec Sodium 140 (137-145) mmol/L Potassium 4.2 (3.5-5.1) mmol/L Chloride 98 (98-107) mmol/L Carbon Dioxide 18 L (22-30) mmol/L Anion Gap 24 mmol/L BUN 16 (9-20) mg/dL Creatinine 0.72 (0.66-1.25) mg/dL Est GFR (CKD-EPI)AfAm >90 (>60 ml/min/1.73 sqM) Est GFR (CKD-EPI)NonAf >90 (>60 ml/min/1.73 sqM) Glucose 71 L (74-99) mg/dL Calcium 9.7 (8.4-10.2) mg/dL Magnesium 1.5 L (1.6-2.3) mg/dL Total Bilirubin 0.6 (0.2-1.3) mg/dL AST 50 (17-59) U/L ALT 20 (4-49) U/L Alkaline Phosphatase 62 (38-126) U/L Total Protein 7.5 (6.3-8.2) g/dL Albumin 5.2 H (3.5-5.0) g/dL Lipase 58 (23-300) U/L Serum Alcohol 131 mg/dL Disposition Clinical Impression: GI bleed Disposition: OTHER INSTITUTION NOT DEFINED Condition: Serious Referrals: Fletcher,Veena, DO [Primary Care Provider] - 1-2 days Time of Disposition: 21:33 - Out of Hospital Transfer - Req. Specs Out of Hospital Transfer - Requested Specifics: Other Emergency [facility] ([facility])
[2022-02-28 20:40] LABS: Basophils % (A) 0 %; Eosinophils % (A) 0 %; HCT 44.4 % (39.0-53.0); HGB 14.8 gm/dL (13.0-17.5); Lymphocytes # (A) 2.3 k/uL (1.0-4.8); Lymphocytes % (A) 28 %; MCH 30.3 pg (25.0-35.0); MCHC 33.3 g/dL (31.0-37.0); Mean Platelet Volume 7.6; Monocytes # (A) 0.2 k/uL (0-1.0); Monocytes % (A) 2 %; Neutrophils # (A) 5.4 k/uL (1.3-7.7); Neutrophils % (A) 68 %; Platelet Count 231 k/uL (150-450); RBC 4.88 m/uL (4.30-5.90); RDW 13.7 % (11.5-15.5)
[2022-02-28 20:50] LABS: ALT 20 U/L (4-49); AST 50 U/L (17-59); African American GFR (CKD) >90 (>60 ml/min/1.73 sqM); Albumin 5.2 g/dL (3.5-5.0); Alkaline Phosphatase 62 U/L (38-126); Anion Gap 24 mmol/L; Blood Urea Nitrogen 16 mg/dL (9-20); Calcium 9.7 mg/dL (8.4-10.2); Carbon Dioxide 18 mmol/L (22-30); Chloride 98 mmol/L (98-107); Glucose 71 mg/dL (74-99); Lipase 58 U/L (23-300); Magnesium 1.5 mg/dL (1.6-2.3); Non-African American GFR(CKD) >90 (>60 ml/min/1.73 sqM); Potassium 4.2 mmol/L (3.5-5.1); Sodium 140 mmol/L (137-145); Total Bilirubin 0.6 mg/dL (0.2-1.3); Total Protein 7.5 g/dL (6.3-8.2)
[2022-02-28 20:52] LABS: Alcohol 131 mg/dL
[2022-02-28 20:55] LABS: INR 0.9 (<1.2); Partial Thromboplastin Time 22.3 sec (22.0-30.0); Prothrombin Time 10.3 sec (9.0-12.0)
[2022-02-28] MEDS ORDERED: DEXTROSE 50% SYRINGE 50 ML IVP STA (21:24)
[2022-02-28] MEDS ORDERED: MAGNESIUM SULFATE-D5W PMX 1 GM in DEXTROSE/WATER 1 100ML.BAG IVPB SCH (21:30)
[2022-02-28 22:05] VITALS: BP 144/58; PULSE 78; RESP 15
== END 2022-02-28 23:06 | disposition other institution (70) ==
LOC: EC 18:53
DX: K92.2 Gastrointestinal hemorrhage, unspecified (principal); I10 Essential (primary) hypertension; K21.9 Gastro-esophageal reflux disease without esophagitis; Z79.83 Long term (current) use of bisphosphonates; Z87.891 Personal history of nicotine dependence; Z88.1 Allergy status to other antibiotic agents; Z88.8 Allergy status to other drugs, medicaments and biological substances; Z88.3 Allergy status to other anti-infective agents
CPT/HCPCS: 36415; 86900; 86901; 80053; 83690; 83735; 85025; 85610; 85730; 86850; 99285; 96365; 96361; 96375; G0480; J2060; J2405; J3475; C9113; 80320

== ENCOUNTER 2022-03-07 19:18 | Inpatient (IN) | payer OTHER ==
[2022-03-08] MEDS ORDERED: SODIUM CHLORIDE 0.9% 1,000 ML IV STA (01:09)
[2022-03-08] MEDS ORDERED: LORazepam 2 MG/ML INJ IV PRN ×2 (01:10)
[2022-03-08] MEDS ORDERED: THIAMINE 100 MG/ML 2 ML VIAL IM STA (01:10)
[2022-03-08 02:16] LABS: Basophils % (A) 0 %; Eosinophils # (A) 0.1 k/uL (0-0.7); Eosinophils % (A) 1 %; HCT 40.5 % (39.0-53.0); HGB 13.6 gm/dL (13.0-17.5); Lymphocytes # (A) 3.4 k/uL (1.0-4.8); Lymphocytes % (A) 34 %; MCH 29.6 pg (25.0-35.0); MCHC 33.5 g/dL (31.0-37.0); MCV 88.3 fL (80.0-100.0); Mean Platelet Volume 8.7; Monocytes # (A) 0.4 k/uL (0-1.0); Monocytes % (A) 4 %; Neutrophils % (A) 60 %; Platelet Count 184 k/uL (150-450); RBC 4.59 m/uL (4.30-5.90); RDW 13.3 % (11.5-15.5)
[2022-03-08 02:18] LABS: Prothrombin Time 10.7 sec (9.0-12.0)
[2022-03-08] MEDS: LORazepam 2 MG/ML INJ IV PRN ×7 (02:26→23:44)
[2022-03-08] MEDS ORDERED: ONDANSETRON 4 MG/2 ML VIAL IVP STA (02:28)
[2022-03-08 02:40] LABS: ALT 27 U/L (4-49); AST 52 U/L (17-59); African American GFR (CKD) >90 (>60 ml/min/1.73 sqM); Albumin 5.2 g/dL (3.5-5.0); Alcohol 27 mg/dL; Alkaline Phosphatase 60 U/L (38-126); Amylase 94 U/L (30-110); Anion Gap 18 mmol/L; Blood Urea Nitrogen 16 mg/dL (9-20); Calcium 9.7 mg/dL (8.4-10.2); Carbon Dioxide 25 mmol/L (22-30); Chloride 97 mmol/L (98-107); Glucose 87 mg/dL (74-99); Lipase 94 U/L (23-300); Magnesium 1.3 mg/dL (1.6-2.3); Non-African American GFR(CKD) >90 (>60 ml/min/1.73 sqM); Phosphorus 3.3 mg/dL (2.5-4.5); Potassium 4.4 mmol/L (3.5-5.1); Sodium 140 mmol/L (137-145); Total Bilirubin 0.2 mg/dL (0.2-1.3); Total Protein 7.6 g/dL (6.3-8.2)
[2022-03-08] MEDS ORDERED: Magnesium Replacement Protocol 1 EACH MISC MISCELLANE PRN (02:43)
[2022-03-08] MEDS: MAGNESIUM SULFATE-D5W PMX 1 GM in DEXTROSE/WATER 1 100ML.BAG IVPB SCH ×3 (03:13→08:00)
[2022-03-08] MEDS ORDERED: NALOXONE 0.4 MG/ML 1 ML VIAL IV PRN (03:19)
[2022-03-08] MEDS ORDERED: ONDANSETRON 4 MG/2 ML VIAL IVP PRN (03:19)
--- NOTE | 2022-03-08 03:27 | ED ---
Alcohol HPI - General Chief Complaint: Alcohol Stated Complaint: ETOH withdrawal Time Seen by Provider: 03/08/22 01:03 Source: EMS Mode of arrival: EMS Limitations: no limitations - History of Present Illness Initial Comments: Patient is a 46-year-old male presenting with chief complaint of alcohol withdrawal. Patient states he normally drinks up to half a gallon of liquor per day, his last drink was yesterday. He is experiencing tremor, nausea, vomiting. Patient has history of withdrawal seizures. He denies any chest pain, shortness of breath, fever, chills, dysuria, hematuria, urgency, frequency, diarrhea, hematochezia, melena, hematemesis. Patient admits to some pain in the right arm, also notes some swelling to the right arm, he has full range of motion and sensation. - Related Data Home Medications Medication Instructions Recorded Confirmed Fluticasone Nasal [place] [Flonase 2 spr EA NOSTRIL BID 10/11/19 01/28/22 Nasal [place]] Cholecalciferol [Vitamin D3 (25 25 mcg PO DAILY 10/02/21 01/28/22 Mcg = 1000 Iu)] Multivitamins, Thera [Multivitamin 1 tab PO DAILY 01/04/22 01/28/22 (formulary)] chlordiazePOXIDE HCl [Librium] See Taper PO DIRECTED 01/28/22 01/28/22 Previous Rx's Medication Instructions Recorded Acetaminophen Tab [Tylenol] 650 mg PO Q6HR PRN tab 10/15/21 Loperamide [Imodium] 2 mg PO QID PRN cap 10/31/21 Acamprosate Calcium [Campral] 666 mg PO TID #90 tablet 11/03/21 Gabapentin [Neurontin] 600 mg PO TID #120 cap 11/03/21 Nicotine 14Mg/24Hr Patch [Habitrol] 1 patch TRANSDERM DAILY PRN #28 11/03/21 patch Thiamine [Vitamin B-1] 100 mg PO BID-W/MEALS #60 tab 01/06/22 Naltrexone HCl [Revia] 50 mg PO DAILY #1 tablet 01/07/22 Pantoprazole [Protonix] 40 mg PO DAILY #30 tab 01/07/22 Magnesium Oxide [Mag-Ox] 400 mg PO TID 30 Days #90 tab 01/27/22 Ondansetron [Zofran] 4 mg PO Q8HR PRN #20 tab 01/27/22 Ibuprofen [Motrin] 400 mg PO Q6HR PRN #16 tab 01/30/22 Allergies Allergy/AdvReac Type Severity Reaction Status Date / Time Cephalosporins Allergy Severe Anaphylaxis Verified 03/07/22 20:00 diphenhydramine HCl Allergy Severe Anaphylaxis Verified 03/07/22 20:00 [From Benadryl] divalproex sodium Allergy Severe Anaphylaxis Verified 03/07/22 20:00 [From Depakote] ceftriaxone [From Rocephin] Allergy Anaphylaxis Verified 03/07/22 20:00 cephalexin [From Keflex] Allergy Anaphylaxis Verified 03/07/22 20:00 droperidol Allergy Anaphylaxis Verified 03/07/22 20:00 lisinopril Allergy Anaphylaxis Verified 03/07/22 20:00 Review of Systems ROS Statement: Those systems with pertinent positive or pertinent negative responses have been documented in the HPI. ROS Other: All systems not noted in ROS Statement are negative. Past Medical History Past Medical History: GERD/Reflux, GI Bleed, Hypertension, Liver Disease, Osteoarthritis (OA), Pneumonia, Seizure Disorder, Sleep Apnea/CPAP/BIPAP, Vascular Disorder Additional Past Medical History / Comment(s): ETOH abuse, alcoholic seizures/blackouts/syncope/alcoholic hepatitis/alcoholic gastritis/upper GI bleed, hypomagnesemia, occasional bilateral pedal edema if stands long, arthritis possibly in back/ribs, MILIND without device, spinal stenosis/herniated disc with surgery, PVD, bilateral varicose veins, hemorrhoids History of Any Multi-Drug Resistant Organisms: None Reported Past Surgical History: Appendectomy, Back Surgery, Tonsillectomy Additional Past Surgical History / Comment(s): bilateral discectomy L5-S1, EGD Past Anesthesia/Blood Transfusion Reactions: No Reported Reaction, Motion Sickness Past Psychological History: Anxiety, Depression Smoking Status: Former smoker, Vaper Past Alcohol Use History: Abuse, Daily, Heavy Past Drug Use History: None Reported - Past Family History Father Family Medical History: Cancer, Dementia, Neurologic Disorder Additional Family Medical History / Comment(s): melanoma, parkinsons, schizophrenic Mother Family Medical History: Hypertension, Musculoskeletal Disorder, Neurologic Disorder, Osteoarthritis (OA) Additional Family Medical History / Comment(s): Mother of motor neuron disease at the age of 78yrs. General Exam Limitations: no limitations General appearance: alert, anxious Head exam: Present: atraumatic, normocephalic, normal inspection Eye exam: Present: normal appearance, PERRL, EOMI. Absent: scleral icterus, conjunctival injection, periorbital swelling Neck exam: Present: normal inspection Respiratory exam: Present: normal lung sounds bilaterally. Absent: respiratory distress, wheezes, rales, rhonchi, stridor Cardiovascular Exam: Present: regular rate, normal rhythm, normal heart sounds. Absent: systolic murmur, diastolic murmur, rubs, gallop, clicks Extremities exam: Present: full ROM, normal capillary refill, other (Right arm swelling and some pain) Neurological exam: Present: alert, oriented X3, CN II-XII intact Psychiatric exam: Present: normal affect, normal mood Skin exam: Present: warm, dry, intact, normal color. Absent: rash Course Vital Signs 03/07/22 03/08/22 19:59 03:13 Temperature 98.4 F Pulse Rate 98 78 Respiratory 18 18 Rate Blood Pressure 149/88 145/65 O2 Sat by Pulse 96 98 Oximetry Medical Decision Making - Medical Decision Making Patient is a 46-year-old male presenting with chief complaint of alcohol wi thdrawal. Patient's last drink was yesterday, normally drinks up to half gallon of liquor per day. Has been experiencing nausea and vomiting. Patient is also complaining of right arm pain and swelling. On examination there is some swelling of the right upper extremity noted, at this time ultrasound is not available, will schedule for ultrasound in the morning and administer shot of Lovenox in the case of DVT. CBC shows no leukocytosis or anemia. PT/INR WNL. Magnesium 1.3, IV replacement as administered. Serum alcohol 27. Patient is placed on [facility] protocol. Patient will be admitted for alcohol withdrawal. [facility] physician accepted admission. Patient was agreeable with this plan. I d iscussed this case with my attending Dr. Ta. - Lab Data Result diagrams: 03/08/22 01:41 03/08/22 01:41 Lab Results 03/08/22 03/08/22 03/08/22 Range/Units 01:41 01:41 01:41 WBC 10.0 (3.8-10.6) k/uL RBC 4.59 (4.30-5.90) m/uL Hgb 13.6 (13.0-17.5) gm/dL Hct 40.5 (39.0-53.0) % MCV 88.3 (80.0-100.0) fL MCH 29.6 (25.0-35.0) pg MCHC 33.5 (31.0-37.0) g/dL RDW 13.3 (11.5-15.5) % Plt Count 184 (150-450) k/uL MPV 8.7 Neutrophils % 60 % Lymphocytes % 34 % Monocytes % 4 % Eosinophils % 1 % Basophils % 0 % Neutrophils # 6.0 (1.3-7.7) k/uL Lymphocytes # 3.4 (1.0-4.8) k/uL Monocytes # 0.4 (0-1.0) k/uL Eosinophils # 0.1 (0-0.7) k/uL Basophils # 0.0 (0-0.2) k/uL PT 10.7 (9.0-12.0) sec INR 1.0 (<1.2) Sodium 140 (137-145) mmol/L Potassium 4.4 (3.5-5.1) mmol/L Chloride 97 L (98-107) mmol/L Carbon Dioxide 25 (22-30) mmol/L Anion Gap 18 mmol/L BUN 16 (9-20) mg/dL Creatinine 0.68 (0.66-1.25) mg/dL Est GFR (CKD-EPI)AfAm >90 (>60 ml/min/1.73 sqM) Est GFR (CKD-EPI)NonAf >90 (>60 ml/min/1.73 sqM) Glucose 87 (74-99) mg/dL Calcium 9.7 (8.4-10.2) mg/dL Phosphorus 3.3 (2.5-4.5) mg/dL Magnesium 1.3 L (1.6-2.3) mg/dL Total Bilirubin 0.2 (0.2-1.3) mg/dL AST 52 (17-59) U/L ALT 27 (4-49) U/L Alkaline Phosphatase 60 (38-126) U/L Total Protein 7.6 (6.3-8.2) g/dL Albumin 5.2 H (3.5-5.0) g/dL Amylase 94 (30-110) U/L Lipase 94 (23-300) U/L Serum Alcohol 27 mg/dL Disposition Clinical Impression: Alcohol withdrawal Disposition: ADMITTED IP TO THIS HOSP Condition: Fair Referrals: Veena Bynum DO [Primary Care Provider] - 1-2 days Time of Disposition: 03:27 Decision to Admit Reason: Admit from EC Decision Date: 03/08/22 Decision Time: 03:27
[2022-03-08] MEDS: DEXTROSE 5%-0.9% NACL 1,000 ML IV SCH ×3 (03:44→23:43)
[2022-03-08] MEDS ORDERED: LORazepam 2 MG/ML INJ IV STA ×2 (03:46→06:58)
[2022-03-08] MEDS ORDERED: ENOXAPARIN 120 MG/0.8 ML SYRINGE SQ STA (04:48)
--- NOTE | 2022-03-08 09:19 | US ---
EXAMINATION TYPE: US venous doppler duplex UE RT DATE OF EXAM: 03/08/2022 COMPARISON: NONE CLINICAL HISTORY: right arm swelling. SIDE PERFORMED: right Grayscale, color doppler, spectral doppler imaging performed of the deep veins of the upper extremiti es. There is normal flow, compressibility and vascular waveforms. Right Arm: Negative for DVT IMPRESSION: No evidence for DVT at this time.
[2022-03-08 10:41] LABS: Appearance,Urine Clear (Clear); Bilirubin,Urine Negative (Negative); Blood,Urine Negative (Negative); Color,Urine Colorless; Glucose,Urine (UA) Negative (Negative); Ketones,Urine Negative (Negative); Leukocyte Esterase,Urine Negative (Negative); Nitrite,Urine Negative (Negative); PH, Urine 7.5 (5.0-8.0); Protein,Urine Negative (Negative); Specific Gravity,Urine 1.004 (1.001-1.035); Urobilinogen,Urine <2.0 mg/dL (<2.0)
[2022-03-08 10:51] LABS: Amphetamine Screen,Urine Not Detected (NotDetected); Barbiturate Screen,Urine Detected (NotDetected); Benzodiazepines Screen,Urine Detected (NotDetected); Cocaine Screen,Urine Not Detected (NotDetected); Methadone Screen, Urine Not Detected (NotDetected); Opiate Screen,Urine Not Detected (NotDetected); Oxycodone Screen, Urine Not Detected (NotDetected); Phencyclidine Screen,Urine Not Detected (NotDetected); Tricyclic Antidepressant,Urine Not Detected (NotDetected); Urn Cannabinoid Scrn Not Detected (NotDetected)
[2022-03-08] MEDS ORDERED: NICOTINE 14MG/24HR PATCH TRANSDERM PRN (11:48)
[2022-03-08] MEDS ORDERED: LOPERAMIDE 2 MG CAP PO PRN (11:48)
[2022-03-08] MEDS ORDERED: IBUPROFEN 400 MG TAB PO PRN (11:48)
[2022-03-08] MEDS: FLUTICASONE 50MCG/SPRAY NASAL 16GM EA NOSTRIL SCH ×2 (12:53→19:45)
[2022-03-08] MEDS: CHOLECALCIFEROL 25 MCG (1000 IU) TABLET PO SCH (12:54)
[2022-03-08] MEDS: PANTOPRAZOLE 40 MG TABLET PO SCH (12:54)
[2022-03-08] MEDS: GABAPENTIN 300 MG CAP PO SCH ×3 (12:54→19:44)
[2022-03-08] MEDS: MAGNESIUM OXIDE 400 MG TAB PO SCH ×3 (12:54→19:45)
--- NOTE | 2022-03-08 14:44 | HP ---
HISTORY AND PHYSICAL CHIEF COMPLAINT: Alcohol withdrawal. HISTORY OF PRESENT ILLNESS: This 46-year-old gentleman with a past medical history of multiple vascular GI bleed, hypertension, history of alcoholism with multiple hospital admissions, apparently injuring again. According to him, the patient had diffuse tremors and features of alcohol withdrawals. The patient came to [facility] and admitted to the hospital for further evaluation and treatment. There is no history of any fever, rigors, or chills. PAST MEDICAL HISTORY: Reviewed, include ETOH, GI bleed, hypertension, liver disease. HOME MEDICATIONS: Reviewed include thiamine, dose and rest of medication noted. ALLERGIES: Reviewed include cephalosporin. FAMILY HISTORY: Reviewed include dementia. SOCIAL HISTORY: Alcohol and smoking, vaping as mentioned earlier. REVIEW OF SYSTEMS: A 14-point review is negative except mentioned earlier. PHYSICAL EXAMINATION: VITAL SIGNS: Pulse is 98, blood pressure 149/88, respirations 18. HEENT: Conjunctivae normal. NECK: No JVD. CARDIOVASCULAR: S1 and S2. RESPIRATIONS: Breath sounds diminished at the bases, few scattered rhonchi. ABDOMEN: Soft nontender. LEGS: No edema, no swelling. NERVOUS SYSTEM: Diffuse tremors and mild diffuse weakness present. No focal deficit. SKIN: No ulcer, rash, bleeding. JOINTS: No active deforming arthropathy. LABS: Reviewed, CBC within normal limits. LFTs are normal. ASSESSMENT: 1. Acute alcohol withdrawal and acute delirium tremens. 2. Hypertension. 3. Chronic liver disease. 4. History of pneumonia. 5. History of seizure disorder. RECOMMENDATIONS: Recommended to continue current management, CIWA protocol, multivitamins. See orders for further details. 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 PROGNOSIS: Guarded. MMODL / IJN: [id number] /
[2022-03-08] MEDS: THIAMINE 100 MG TAB PO SCH (17:16)
[2022-03-09] MEDS: LORazepam 2 MG/ML INJ IV PRN ×7 (03:58→22:22)
[2022-03-09] MEDS: GABAPENTIN 300 MG CAP PO SCH ×3 (08:10→22:23)
[2022-03-09] MEDS: DEXTROSE 5%-0.9% NACL 1,000 ML IV SCH ×2 (08:10→22:25)
[2022-03-09] MEDS: MULTIVITAMINS, THERA 1 EACH TAB PO SCH (08:11)
[2022-03-09] MEDS: PANTOPRAZOLE 40 MG TABLET PO SCH (08:11)
[2022-03-09] MEDS: MAGNESIUM OXIDE 400 MG TAB PO SCH ×3 (08:11→22:23)
[2022-03-09] MEDS: CHOLECALCIFEROL 25 MCG (1000 IU) TABLET PO SCH (08:11)
[2022-03-09] MEDS: THIAMINE 100 MG TAB PO SCH ×2 (08:11→16:43)
[2022-03-09] MEDS: FLUTICASONE 50MCG/SPRAY NASAL 16GM EA NOSTRIL SCH ×2 (09:35→22:23)
[2022-03-09] MEDS: ACETAMINOPHEN TAB 325 MG TAB PO PRN (09:40)
[2022-03-09 10:16] LABS: Basophils # (A) 0.02 X 10*3/uL (0.00-0.10); Basophils % (A) 0.3 %; Eosinophils % (A) 1.7 %; HCT 35.1 % (39.6-50.0); HGB 11.5 g/dL (13.0-17.0); Immature Grans, Automated 0.2 %; Lymphocytes # (A) 2.43 X 10*3/uL (0.90-5.00); Lymphocytes % (A) 40.8 %; MCHC 32.8 g/dL (32.0-37.0); MCV 91.6 fL (80.0-97.0); Monocytes # (A) 0.53 X 10*3/uL (0.20-1.00); Monocytes % (A) 8.9 %; NRBC Per 100 WBC 0 /100 WBCS (0.0-0.0); Neutrophils # (A) 2.86 X 10*3/uL (1.80-7.70); Neutrophils % (A) 48.1 %; Platelet Count 141 X 10*3/uL (140-440); RBC 3.83 X 10*6/uL (4.40-5.60); RDW 13.2 % (11.5-14.5); WBC 5.95 X 10*3/uL (4.50-10.00)
[2022-03-09 10:49] LABS: African American GFR (CKD) 122.4 (60.0-200.0); Albumin 3.8 g/dL (3.8-4.9); Albumin/Globulin Ratio 2.11 (1.60-3.17); Anion Gap 6.6 mmol/L (10.00-18.00); BUN/Creat Ratio 18.88 Ratio (12.00-20.00); Blood Urea Nitrogen 15.1 mg/dL (9.0-27.0); Calcium 8.6 mg/dL (8.7-10.3); Carbon Dioxide 29.4 mmol/L (20.0-27.5); Globulin 1.8 g/dL (1.6-3.3); Magnesium 1.9 mg/dL (1.5-2.4); Non-African American GFR(CKD) 105.6 (60.0-200.0); Potassium 4.6 mmol/L (3.5-5.5); Total Bilirubin 0.3 mg/dL (0.30-1.20); Total Protein 5.6 g/dL (6.2-8.2)
--- NOTE | 2022-03-09 15:09 | PN ---
PROGRESS NOTE SUBJECTIVE: This 46-year-old gentleman admitted with acute alcohol withdrawal and delirium tremens is being closely monitored. No chest pain. No palpitation. OBJECTIVE: VITAL SIGNS: Pulse 56, blood pressure 120/76, respirations 16. CHEST: Clear to auscultation. CARDIOVASCULAR: S1, S2 muffled. ABDOMEN: Soft. NERVOUS SYSTEM: Diffusely weak and tremors. LABS: Reviewed. ASSESSMENT: 1. Acute alcohol withdrawal and acute delirium tremens. 2. Hypertension. 3. Chronic liver disease. 4. History of pneumonia. 5. History of seizure disorder. RECOMMENDATIONS: Continue current medications, symptomatic treatment. Otherwise, at this time, I would recommend continue with CIWA protocol, Ativan. Prognosis is guarded. Further recommendations to follow. MMODL / IJN: [id number] /
[2022-03-10] MEDS: ACETAMINOPHEN TAB 325 MG TAB PO PRN ×3 (00:44→22:15)
[2022-03-10] MEDS: LORazepam 2 MG/ML INJ IV PRN ×5 (03:58→22:12)
[2022-03-10] MEDS: MULTIVITAMINS, THERA 1 EACH TAB PO SCH (08:51)
[2022-03-10] MEDS: PANTOPRAZOLE 40 MG TABLET PO SCH (08:51)
[2022-03-10] MEDS: MAGNESIUM OXIDE 400 MG TAB PO SCH ×3 (08:51→21:13)
[2022-03-10] MEDS: FLUTICASONE 50MCG/SPRAY NASAL 16GM EA NOSTRIL SCH ×2 (08:51→21:12)
[2022-03-10] MEDS: THIAMINE 100 MG TAB PO SCH ×2 (08:51→17:04)
[2022-03-10] MEDS: GABAPENTIN 300 MG CAP PO SCH ×3 (08:51→21:12)
[2022-03-10] MEDS: CHOLECALCIFEROL 25 MCG (1000 IU) TABLET PO SCH (08:52)
[2022-03-10] MEDS: DEXTROSE 5%-0.9% NACL 1,000 ML IV SCH ×3 (11:05→22:12)
[2022-03-11] MEDS: LORazepam 2 MG/ML INJ IV PRN (04:36)
[2022-03-11 07:13] VITALS: BP 112/68; PULSE 57; RESP 14; TEMP 97.9
[2022-03-11] MEDS: MAGNESIUM OXIDE 400 MG TAB PO SCH (09:42)
[2022-03-11] MEDS: MULTIVITAMINS, THERA 1 EACH TAB PO SCH (09:42)
[2022-03-11] MEDS: THIAMINE 100 MG TAB PO SCH (09:42)
[2022-03-11] MEDS: PANTOPRAZOLE 40 MG TABLET PO SCH (09:42)
[2022-03-11] MEDS: CHOLECALCIFEROL 25 MCG (1000 IU) TABLET PO SCH (09:42)
[2022-03-11] MEDS: FLUTICASONE 50MCG/SPRAY NASAL 16GM EA NOSTRIL SCH (09:42)
[2022-03-11] MEDS: GABAPENTIN 300 MG CAP PO SCH (09:42)
[2022-03-11] MEDS: ACETAMINOPHEN TAB 325 MG TAB PO PRN (09:49)
[2022-03-11] MEDS: DEXTROSE 5%-0.9% NACL 1,000 ML IV SCH (09:53)
--- NOTE | 2022-03-11 12:03 | PN ---
PROGRESS NOTE SUBJECTIVE: This is a 46-year-old gentleman, who was admitted with acute alcohol withdrawal and acute delirium tremens, is improving significantly. The patient still has significant tremors. No chest pain. No palpitation. OBJECTIVE: VITAL SIGNS: Pulse 59, blood pressure n, respiration 18. CHEST: Clear to auscultation. CARDIOVASCULAR: S1, S2. ABDOMEN: Soft. NERVOUS SYSTEM: Diffuse tremors and gait dysfunction. LABS: Reviewed. ASSESSMENT: 1. Acute alcohol withdrawal and acute delirium tremens. 2. Hypertension. 3. Chronic liver disease. 4. History of pneumonia. 5. History of seizure disorder. RECOMMENDATIONS: Continue current . Continue CIWA protocol, otherwise increase ambulation. 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 Prognosis guarded. Further recommendations to follow. Possible discharge in the next 24 to 48 hours. MMODL / IJN: [id number] / MTDD
--- NOTE | 2022-03-12 09:22 | DS ---
DISCHARGE SUMMARY FINAL DIAGNOSES: 1. Acute alcohol withdrawal and acute delirium tremens. 2. Hypertension. 3. Chronic liver disease. 4. Multiple medical issues. DISCHARGE DISPOSITION: The patient will be discharged in stable condition. Prognosis guarded. HISTORY OF PRESENT ILLNESS: This is a 46-year-old gentleman with past medical history of multiple medical problems, admitted with alcohol withdrawal and delirium tremens, treated with CIWA protocol, improved significantly. The patient will be discharged in stable condition. Guarded prognosis. The patient is recommended to resume the home medications. Please refer to the medication reconciliation sheet for further medications. The patient also recommended to attend the AA and alcohol rehab. The patient apparently had appointment coming up in a [facility]. See orders for further details. MMODL / IJN: [id number] /
== END 2022-03-11 12:05 | disposition home or self-care (01) | DRG 897 ==
LOC: EC 19:18 → 6NMEDSUR 03-08 04:48
PROVIDERS: ADMIT Internal Medicine; ATTEND Internal Medicine
PROC: HZ2ZZZZ Detoxification Services for Substance Abuse Treatment (ICD-10-PCS; principal; 2022-03-08)
DX: F10.231 Alcohol dependence with withdrawal delirium (principal); Y90.1 Blood alcohol level of 20-39 mg/100 ml; G40.909 Epilepsy, unspecified, not intractable, without status epilepticus; I10 Essential (primary) hypertension; K21.9 Gastro-esophageal reflux disease without esophagitis; G47.33 Obstructive sleep apnea (adult) (pediatric); K70.10 Alcoholic hepatitis without ascites; I83.93 Asymptomatic varicose veins of bilateral lower extremities; I73.9 Peripheral vascular disease, unspecified; K76.9 Liver disease, unspecified; Z87.891 Personal history of nicotine dependence; Z87.01 Personal history of pneumonia (recurrent); Z88.1 Allergy status to other antibiotic agents; Z88.8 Allergy status to other drugs, medicaments and biological substances
CPT/HCPCS: 36415; 80053; 80306; 80320; 81003; 82150; 83690; 83735; 84100; 85025; 85610; 96361; 96365; 96366; 96372; 96375; 96376; 99285

== ENCOUNTER 2022-03-13 12:55 | Emergency (ER) | payer OTHER ==
[2022-03-13 13:02] VITALS: RESP 15; TEMP 98.6
[2022-03-13] MEDS ORDERED: ONDANSETRON 4 MG/2 ML VIAL IVP STA (13:13)
[2022-03-13] MEDS ORDERED: SODIUM CHLORIDE 0.9% 1,000 ML IV STA (13:13)
--- NOTE | 2022-03-13 13:26 | ED ---
General Adult HPI - General Chief complaint: Nausea/Vomiting/Diarrhea Stated complaint: Weakness Time Seen by Provider: 03/13/22 12:57 Source: patient, EMS Mode of arrival: EMS Limitations: no limitations - History of Present Illness Initial comments: Dictation was produced using [employer] dictation software. please excuse any grammatical, word or spelling errors. Chief Complaint: 46-year-old male presents to the emergency department again for concerns of alcohol withdrawal History of Present Illness: Dishes a 46-year-old male who presents to emergency department for concerns of alcohol withdrawal. Patient is well-known to emerge ncy department for alcohol-related issues. Patient unable to accurately tell me when his last time he had any alcohol but it was sometime today. Patient drinks large amounts of liquor on a daily basis. In admitted to detoxification facility in the past multiple times over can still continues to consume large amounts of alcohol daily.. Patient states he is here for nausea and vomiting. Denies any abdominal pain. Patient is nauseated. The ROS documented in this emergency department record has been reviewed and confirmed by me. Those systems with pertinent positive or negative responses have been documented in the HPI. All other systems are other negative and/or noncontributory. PHYSICAL EXAM: General Impression: Alert and oriented x3, not in acute distress, non-tremulous HEENT: Normocephalic atraumatic, extra-ocular movements intact, pupils equal and reactive to light bilaterally, mucous membranes moist. Cardiovascular: Heart regular rate and rhythm Chest: Able to complete full sentences, no retractions, no tachypnea Abdomen: abdomen soft, non-tender, non-distended, no organomegaly Musculoskeletal: Pulses present and equal in all extremities, no peripheral edema Motor: no focal deficits noted Neurological: CN II-XII grossly intact, no focal motor or sensory deficits noted Skin: Intact with no visualized rashes Psych: Normal affect and mood ED course: 46-year-old male presents again to the emergency department for concerns of alcohol withdrawal. Vital signs upon arrival shows heart rate of 106, rest of vital signs within acceptable limits. Patient was just discharged from the hospital 2 days ago after an admission for alcohol withdrawals. He was treated discharge stable medical condition. Patient not showing any signs of withdrawal at the bedside. Patient is reevaluated bedside through o'clock p.m./Unremarkable except for some very mild hypomagnesemia. Patient was given oral magnesium. Patient did have some occult today. He does have mild acidosis likely secondary to mild alcoholic ketoacidosis. Patient was told that he was going to discharge and began saying that he like to be evaluated for suicidal ideation. Patient medically cleared for EPS evaluation. Care signed out to Dr. Pinzon for follow-up of EPS recommendations. Chart is reviewed at a later date. Patient had a discharge psychiatric plan. Patient discharged. - Related Data Home Medications Medication Instructions Recorded Confirmed Fluticasone Nasal Elizabeth [Flonase 2 spr EA NOSTRIL BID 10/11/19 03/13/22 Nasal Elizabeth] Cholecalciferol [Vitamin D3 (25 25 mcg PO DAILY 10/02/21 03/13/22 Mcg = 1000 Iu)] Multivitamins, Thera [Multivitamin 1 tab PO DAILY 01/04/22 03/13/22 (formulary)] Previous Rx's Medication Instructions Recorded Acetaminophen Tab [Tylenol] 650 mg PO Q6HR PRN tab 10/15/21 Loperamide [Imodium] 2 mg PO QID PRN cap 10/31/21 Acamprosate Calcium [Campral] 666 mg PO TID #90 tablet 11/03/21 Gabapentin [Neurontin] 600 mg PO TID #120 cap 11/03/21 Nicotine 14Mg/24Hr Patch [Habitrol] 1 patch TRANSDERM DAILY PRN #28 11/03/21 patch Thiamine [Vitamin B-1] 100 mg PO BID-W/MEALS #60 tab 01/06/22 Naltrexone HCl [Revia] 50 mg PO DAILY #1 tablet 01/07/22 Pantoprazole [Protonix] 40 mg PO DAILY #30 tab 01/07/22 Magnesium Oxide [Mag-Ox] 400 mg PO TID 30 Days #90 tab 01/27/22 Ondansetron [Zofran] 4 mg PO Q8HR PRN #20 tab 01/27/22 Ibuprofen [Motrin] 400 mg PO Q6HR PRN #16 tab 01/30/22 Allergies Allergy/AdvReac Type Severity Reaction Status Date / Time Cephalosporins Allergy Severe Anaphylaxis Verified 03/13/22 16:54 diphenhydramine HCl Allergy Severe Anaphylaxis Verified 03/13/22 16:54 [From Benadryl] divalproex sodium Allergy Severe Anaphylaxis Verified 03/13/22 16:54 [From Depakote] ceftriaxone [From Rocephin] Allergy Anaphylaxis Verified 03/13/22 16:54 cephalexin [From Keflex] Allergy Anaphylaxis Verified 03/13/22 16:54 droperidol Allergy Anaphylaxis Verified 03/13/22 16:54 lisinopril Allergy Anaphylaxis Verified 03/13/22 16:54 Review of Systems ROS Statement: Those systems with pertinent positive or pertinent negative responses have been documented in the HPI. ROS Other: All systems not noted in ROS Statement are negative. Past Medical History Past Medical History: GERD/Reflux, GI Bleed, Hypertension, Liver Disease, Osteoarthritis (OA), Pneumonia, Seizure Disorder, Sleep Apnea/CPAP/BIPAP, Vascular Disorder Additional Past Medical History / Comment(s): ETOH abuse, alcoholic seizures/blackouts/syncope/alcoholic hepatitis/alcoholic gastritis/upper GI bleed, hypomagnesemia, occasional bilateral pedal edema if stands long, arthritis possibly in back/ribs, MILIND without device, spinal stenosis/herniated disc with surgery, PVD, bilateral varicose veins, hemorrhoids History of Any Multi-Drug Resistant Organisms: None Reported Past Surgical History: Appendectomy, Back Surgery, Tonsillectomy Additional Past Surgical History / Comment(s): bilateral discectomy L5-S1, EGD Past Anesthesia/Blood Transfusion Reactions: No Reported Reaction, Motion Sickness Past Psychological History: Anxiety, Depression Smoking Status: Current every day smoker, Vaper Past Alcohol Use History: Abuse, Daily, Heavy Past Drug Use History: Marijuana - Past Family History Father Family Medical History: Cancer, Dementia, Neurologic Disorder Additional Family Medical History / Comment(s): melanoma, parkinsons, schizophrenic Mother Family Medical History: Hypertension, Musculoskeletal Disorder, Neurologic Disorder, Osteoarthritis (OA) Additional Family Medical History / Comment(s): Mother of motor neuron disease at the age of 78yrs. General Exam Limitations: no limitations Course Vital Signs 03/13/22 03/13/22 12:58 23:22 Temperature 98.6 F Pulse Rate 106 H 87 Respiratory 15 15 Rate Blood Pressure 131/85 128/74 O2 Sat by Pulse 98 97 Oximetry Medical Decision Making - Lab Data Result diagrams: 03/13/22 13:54 03/13/22 14:35 Lab Results 03/13/22 03/13/22 Range/Units 13:54 14:35 WBC 8.5 (3.8-10.6) k/uL RBC 4.91 (4.30-5.90) m/uL Hgb 14.7 (13.0-17.5) gm/dL Hct 44.2 (39.0-53.0) % MCV 90.0 (80.0-100.0) fL MCH 30.0 (25.0-35.0) pg MCHC 33.3 (31.0-37.0) g/dL RDW 13.3 (11.5-15.5) % Plt Count 267 (150-450) k/uL MPV 7.6 Neutrophils % 61 % Lymphocytes % 34 % Monocytes % 2 % Eosinophils % 1 % Basophils % 0 % Neutrophils # 5.2 (1.3-7.7) k/uL Lymphocytes # 2.9 (1.0-4.8) k/uL Monocytes # 0.2 (0-1.0) k/uL Eosinophils # 0.1 (0-0.7) k/uL Basophils # 0.0 (0-0.2) k/uL Sodium 138 (137-145) mmol/L Potassium 3.9 (3.5-5.1) mmol/L Chloride 98 (98-107) mmol/L Carbon Dioxide 20 L (22-30) mmol/L Anion Gap 20 mmol/L BUN 13 (9-20) mg/dL Creatinine 0.71 (0.66-1.25) mg/dL Est GFR (CKD-EPI)AfAm >90 (>60 ml/min/1.73 sqM) Est GFR (CKD-EPI)NonAf >90 (>60 ml/min/1.73 sqM) Glucose 78 (74-99) mg/dL Calcium 8.5 (8.4-10.2) mg/dL Magnesium 1.4 L (1.6-2.3) mg/dL Disposition Clinical Impression: Suicidal ideation Disposition: HOME SELF-CARE Condition: Stable Is patient prescribed a controlled substance at d/c from ED?: No Referrals: Veena Bynum DO [Primary Care Provider] - 1-2 days
[2022-03-13 14:05] LABS: Basophils % (A) 0 %; Eosinophils # (A) 0.1 k/uL (0-0.7); Eosinophils % (A) 1 %; HCT 44.2 % (39.0-53.0); HGB 14.7 gm/dL (13.0-17.5); Lymphocytes # (A) 2.9 k/uL (1.0-4.8); Lymphocytes % (A) 34 %; MCHC 33.3 g/dL (31.0-37.0); Mean Platelet Volume 7.6; Monocytes # (A) 0.2 k/uL (0-1.0); Monocytes % (A) 2 %; Neutrophils # (A) 5.2 k/uL (1.3-7.7); Neutrophils % (A) 61 %; Platelet Count 267 k/uL (150-450); RBC 4.91 m/uL (4.30-5.90); RDW 13.3 % (11.5-15.5); WBC 8.5 k/uL (3.8-10.6)
[2022-03-13 14:49] LABS: African American GFR (CKD) >90 (>60 ml/min/1.73 sqM); Anion Gap 20 mmol/L; Blood Urea Nitrogen 13 mg/dL (9-20); Calcium 8.5 mg/dL (8.4-10.2); Carbon Dioxide 20 mmol/L (22-30); Chloride 98 mmol/L (98-107); Glucose 78 mg/dL (74-99); Magnesium 1.4 mg/dL (1.6-2.3); Non-African American GFR(CKD) >90 (>60 ml/min/1.73 sqM); Potassium 3.9 mmol/L (3.5-5.1); Sodium 138 mmol/L (137-145)
[2022-03-13] MEDS ORDERED: MAGNESIUM OXIDE 400 MG TAB PO STA (14:50)
[2022-03-13] MEDS ORDERED: METOCLOPRAMIDE 5 MG/ML 2 ML VIAL IVP STA (17:31)
[2022-03-13] MEDS ORDERED: chlordiazePOXIDE 25 MG CAP PO STA (17:48)
[2022-03-13] MEDS ORDERED: chlordiazePOXIDE 25 MG CAP PO SCH (18:30)
[2022-03-13 23:23] VITALS: BP 128/74; PULSE 87
== END 2022-03-13 23:50 | disposition home or self-care (01) ==
LOC: EC 12:55
DX: R45.851 Suicidal ideations (principal); I10 Essential (primary) hypertension; F17.290 Nicotine dependence, other tobacco product, uncomplicated; Z88.8 Allergy status to other drugs, medicaments and biological substances; Z88.1 Allergy status to other antibiotic agents; Z88.6 Allergy status to analgesic agent
CPT/HCPCS: 82075; 36415; 80048; 83735; 85025; 99284; 96360; J2765; J2405